=== PATIENT | male | born 1995 | race African-American/Black ===

== ENCOUNTER 2016-09-14 17:16 | Emergency (ER) | payer MEDICAID ==
--- NOTE | 2016-09-14 17:27 | ER Document Report ---
ED Medical Screen (RME) - General Stated Complaint: RIGHT LEG PAIN Mode of Arrival: Ambulatory Information source: Patient Notes: Patient presents to the emergency department with right leg pain started 2 days ago. Patient has history of sickle cell. Reports crisis started 2 days ago with nausea. I greeted and performed a rapid initial assessment of this patient. Comprehensive ED assessment and evaluation of the patient, analysis of test results and completion of the medical decision making process will be conducted by additional ED providers. TRAVEL OUTSIDE OF THE [place] IN LAST 30 DAYS: No - Related Data Allergies/Adverse Reactions: Coconut * [Coconut] Allergy (Mild, Verified 09/14/16 17:25) transpore tape Allergy (Mild, Uncoded 09/14/16 17:25) Hives Past Medical History Pulmonary Medical History: Reports: Hx Asthma, Hx Pneumonia Past Surgical History: Reports: Hx Abdominal Surgery - Gallstones removal. Denies: Hx Cholecystectomy. Comment Only: Hx Orthopedic Surgery - Fluid drained from right foot - Immunizations Immunizations up to date: Yes Hx Diphtheria, Pertussis, Tetanus Vaccination: No Physical Exam - Vital signs Vitals: Temp Pulse Resp BP Pulse Ox 98.0 F 99 17 135/72 H 99 09/14/16 17:21 09/14/16 17:21 09/14/16 17:21 09/14/16 17:21 09/14/16 17:21 Course - Vital Signs Vital signs: Temp Pulse Resp BP Pulse Ox 98.0 F 99 17 135/72 H 99 09/14/16 17:21 09/14/16 17:21 09/14/16 17:21 09/14/16 17:21 09/14/16 17:21
[2016-09-14] MEDS ORDERED: NORMAL SALINE 1000 ML 1,000 ML IV PRN ×3 (18:07→20:29)
[2016-09-14] MEDS ORDERED: DIPHENHYDRAMINE HCL 50 MG/ML VIAL IV ONE ×2 (18:10→20:29)
[2016-09-14] MEDS ORDERED: ONDANSETRON HCL INJ/PF 4 MG/2 ML SDV IV ONE (18:10)
[2016-09-14] MEDS ORDERED: HYDROMORPHONE HCL INJ/PF 2 MG/ML AMPULE IV ONE ×2 (18:10→20:29)
--- NOTE | 2016-09-14 18:12 | ER Document Report ---
ED General Pain - General Chief Complaint: Leg Pain Stated Complaint: RIGHT LEG PAIN Time seen by provider: 18:10 Mode of Arrival: Ambulatory Information source: Patient TRAVEL OUTSIDE OF THE [place] IN LAST 30 DAYS: No - HPI Patient complains to provider of: sickle cell pain, right leg pain Onset: Yesterday Onset/Duration: Gradual, Persistent Quality of pain: Achy Severity: Moderate Pain Level: 4 Context: Chronic problem Exacerbated by: Denies Relieved by: Denies Similar symptoms previously: Yes Recently seen / treated by doctor: Yes Notes: Patient is a 21-year-old male with a history of sickle cell disease who presents to emergency room complaining of right leg pain that's been going on since yesterday and consistent with his previous sickle cell crisis, patient denies any injury or trauma, no cough, cold or congestion, no nausea, vomiting or diarrhea, no fever or chills, states yesterday he had some low back pain associated with his sickle cell disease as well but that has since resolved, states he attempted to see his legal examiner today but she was not in office so he came to the emergency room instead - Related Data Allergies/Adverse Reactions: Coconut * [Coconut] Allergy (Mild, Verified 09/14/16 17:25) transpore tape Allergy (Mild, Uncoded 09/14/16 17:25) Hives Past Medical History - General Information source: Patient - Social History Smoking Status: Never Smoker Chew tobacco use (# tins/day): No Frequency of alcohol use: Occasional Drug Abuse: None Family History: Arthritis, DM, Hypertension, Other - Sickle cell trait both parents and asthma Patient has suicidal ideation: No Patient has homicidal ideation: No Pulmonary Medical History: Reports: Hx Asthma, Hx Pneumonia Renal/ Medical History: Denies: Hx Peritoneal Dialysis Past Surgical History: Reports: Hx Abdominal Surgery - Gallstones removal. Denies: Hx Cholecystectomy. Comment Only: Hx Orthopedic Surgery - Fluid drained from right foot - Immunizations Immunizations up to date: Yes Hx Diphtheria, Pertussis, Tetanus Vaccination: No Hx Pneumococcal Vaccination: 01/15/13 Review of Systems - Review of Systems Constitutional: No symptoms reported EENT: No symptoms reported Cardiovascular: No symptoms reported Respiratory: No symptoms reported Gastrointestinal: No symptoms reported Genitourinary: No symptoms reported Male Genitourinary: No symptoms reported Musculoskeletal: See HPI Skin: No symptoms reported Hematologic/Lymphatic: See HPI Neurological/Psychological: No symptoms reported -: Yes All other systems reviewed and negative Physical Exam - Vital signs Vitals: Temp Pulse Resp BP Pulse Ox 98.0 F 99 17 135/72 H 99 09/14/16 17:21 09/14/16 17:21 09/14/16 17:21 09/14/16 17:21 09/14/16 17:21 Interpretation: Normal - General General appearance: Appears well, Alert - HEENT Head: Normocephalic, Atraumatic Eyes: Normal Pupils: PERRL - Respiratory Respiratory status: No respiratory distress Chest status: Nontender Breath sounds: Normal Chest palpation: Normal - Cardiovascular Rhythm: Regular Heart sounds: Normal auscultation Murmur: No - Abdominal Inspection: Normal Distension: No distension Bowel sounds: Normal Tenderness: Nontender Organomegaly: No organomegaly - Back Back: Normal, Nontender - Extremities General upper extremity: Normal inspection, Nontender, Normal color, Normal ROM , Normal temperature General lower extremity: Normal inspection, Nontender, Normal color, Normal ROM , Normal temperature, Normal weight bearing. No: Jeannine's sign - Neurological Neuro grossly intact: Yes Cognition: Normal Orientation: AAOx4 [place] Coma Scale Eye Opening: Spontaneous Rodo Coma Scale Verbal: Oriented Rodo Coma Scale Motor: Obeys Commands Rodo Coma Scale Total: 15 Speech: Normal Motor strength normal: LUE, RUE, LLE, RLE Sensory: Normal - Psychological Associated symptoms: Normal affect, Normal mood - Skin Skin Temperature: Warm Skin Moisture: Dry Skin Color: Normal Course - Re-evaluation Re-evalutation: 09/14/16 21:53 Patient resting comfortably, reports feeling much better and ready to go home, labs were discussed with him at bedside, patient will be discharged with pain medication and information to follow up with his legal examiner, advised to return if symptoms worsen, patient acknowledges understanding and agreement with this plan - Vital Signs Vital signs: Temp Pulse Resp BP Pulse Ox 98.0 F 99 17 135/72 H 99 09/14/16 17:21 09/14/16 17:21 09/14/16 17:21 09/14/16 17:21 09/14/16 17:21 - Laboratory Result Diagrams: 09/14/16 20:55 09/14/16 18:35 Laboratory results interpreted by me: 09/14/16 09/14/16 09/14/16 17:40 18:35 20:55 RBC 3.07 L Hgb 12.2 L Hct 36.4 L MCV 119 H MCH 39.8 H RDW 23.8 H Retic Count (auto) 5.15 H Absolute Retic 0.158 H Total Bilirubin 1.8 H Alkaline Phosphatase 144 H Urine Blood SMALL H Discharge - Discharge Clinical Impression: Sickle cell crisis Condition: Stable Disposition: HOME, SELF-CARE Instructions: Sickle Cell Crisis ([facility]) Additional Instructions: Drink plenty of fluids. Follow up with your legal examiner in one to 2 days. Return to the emergency room immediately if symptoms worsen or any additional concerns. Prescriptions: Oxycodone HCl/Acetaminophen [Percocet 10-325 Mg Tablet] 1 each PO Q6 #30 tablet
[2016-09-14 19:40] LABS: ALANINE AMINOTRANSFERASE 23 U/L (21-72); ALBUMIN 4.5 g/dL (3.5-5.0); ALKALINE PHOSPHATASE 144 U/L (38-126); ANION GAP 13 (5-19); ASPARTATE AMINO TRANSFERASE 50 U/L (17-59); BILIRUBIN,TOTAL 1.8 mg/dL (0.2-1.3); BLOOD UREA NITROGEN 13 mg/dL (7-20); CARBON DIOXIDE 27 mmol/L (22-30); CHLORIDE 102 mmol/L (98-107); CREATININE RESULT 0.66 mg/dL (0.52-1.25); GLUCOSE 87 mg/dL (75-110); POTASSIUM 4.5 mmol/L (3.6-5.0); SODIUM 141.6 mmol/L (137-145); TOTAL PROTEIN 8.1 g/dL (6.3-8.2)
[2016-09-14 19:55] LABS: APPEARANCE,URINE CLEAR; BILIRUBIN,URINE NEGATIVE (NEGATIVE); GLUCOSE, URINE NEGATIVE (NEGATIVE); KETONES,URINE NEGATIVE (NEGATIVE); LEUKOCYTE ESTERASE,URINE NEGATIVE (NEGATIVE); NITRITE,URINE NEGATIVE (NEGATIVE); PROTEIN,URINE NEGATIVE (NEGATIVE); URINE SPECIFIC GRAVITY 1.011; UROBILINOGEN,URINE NEGATIVE mg/dL (<2.0)
[2016-09-14 21:32] LABS: HEMATOCRIT 36.4 % (37.9-51.0); HEMOGLOBIN 12.2 g/dL (13.5-17.0); HGB HCT DIFFERENCE 0.2; MEAN CORPUSCULAR HEMOGLOBIN 39.8 pg (27.0-33.4); MEAN CORPUSCULAR HGB CONC 33.5 g/dL (32.0-36.0); RED BLOOD COUNT 3.07 10^6/uL (4.35-5.55); RED CELL DISTRIBUTION WIDTH 23.8 % (11.5-14.0); WHITE BLOOD COUNT 5.2 10^3/uL (4.0-10.5)
[2016-09-14 21:39] LABS: BASOPHILS % (MANUAL) 0 % (0-2); EOSINOPHILS % (MANUAL) 0 % (0-6); LYMPHOCYTES % (MANUAL) 23 % (13-45); TOTAL CELLS COUNTED 100
[2016-09-14 21:43] LABS: TOXIC GRANULATION SLIGHT
[2016-09-14 21:44] LABS: OVALOCYTES SLIGHT; POLYCHROMASIA SLIGHT; SCHISTOCYTES SLIGHT; TARGET CELLS 1+
[2016-09-14 21:45] LABS: NUCLEATED RED BLOOD CELLS 9 /100 WBC (0)
[2016-09-14 21:46] LABS: MEAN CORPUSCULAR VOLUME 119 fl (80-97)
[2016-09-14 21:47] LABS: ANISOCYTOSIS 2+
[2016-09-14 23:06] VITALS: BP 145/92
[2016-09-17 14:31] LABS: PATH REVIEW PATHOLOGIST REVIEWED
== END 2016-09-14 23:06 | disposition home or self-care (01) ==
LOC: ER 17:16
DX: D57.00 Hb-SS disease with crisis, unspecified (principal); M79.604 Pain in right leg; Z91.018 Allergy to other foods; Z88.8 Allergy status to other drugs, medicaments and biological substances; J45.909 Unspecified asthma, uncomplicated
CPT/HCPCS: 36591; 96376; 99284; 96361; 96374; 96375; 36415; 85025; 85045; 80053; 81001; J1200; J1170; J2405; J7030

== ENCOUNTER 2016-10-31 11:31 | Emergency (ER) | payer MEDICAID ==
--- NOTE | 2016-10-31 12:15 | ER Document Report ---
ED Medical Screen (RME) - General Stated Complaint: CHEST AND BACK PAIN Notes: 21 yo AA male c/o intermittant anterior chest pains and low back pain x 2 days. + pain with deep inspiration. + cough. + shortness of breath. no radiculopathy, no paresthesias, no bowel/bladder change, no fever. + hx/o sickle cell TRAVEL OUTSIDE OF THE [place] IN LAST 30 DAYS: No - Related Data Allergies/Adverse Reactions: Coconut * [Coconut] Allergy (Mild, Verified 09/14/16 17:25) transpore tape Allergy (Mild, Uncoded 09/14/16 17:25) Hives Past Medical History Pulmonary Medical History: Reports: Hx Asthma, Hx Pneumonia Renal/ Medical History: Denies: Hx Peritoneal Dialysis Past Surgical History: Reports: Hx Abdominal Surgery - Gallstones removal, Hx Vascular Surgery - Port placement. Denies: Hx Cholecystectomy. Comment Only: Hx Orthopedic Surgery - Fluid drained from right foot - Immunizations Immunizations up to date: Yes Hx Diphtheria, Pertussis, Tetanus Vaccination: No Physical Exam - Vital signs Vitals: Temp Pulse Resp BP Pulse Ox 98.4 F 99 18 134/80 H 96 10/31/16 11:52 10/31/16 11:52 10/31/16 11:52 10/31/16 11:52 10/31/16 11:52 Course - Vital Signs Vital signs: Temp Pulse Resp BP Pulse Ox 98.4 F 99 18 134/80 H 96 10/31/16 11:52 10/31/16 11:52 10/31/16 11:52 10/31/16 11:52 10/31/16 11:52
[2016-10-31 13:08] LABS: ALANINE AMINOTRANSFERASE 26 U/L (21-72); ALBUMIN 5.1 g/dL (3.5-5.0); ALKALINE PHOSPHATASE 143 U/L (38-126); BILIRUBIN,TOTAL 1.9 mg/dL (0.2-1.3); BLOOD UREA NITROGEN 14 mg/dL (7-20); CARBON DIOXIDE 29 mmol/L (22-30); CREATININE RESULT 0.72 mg/dL (0.52-1.25); GLUCOSE 104 mg/dL (75-110); POTASSIUM 4.4 mmol/L (3.6-5.0); SODIUM 145.8 mmol/L (137-145); TOTAL PROTEIN 9.6 g/dL (6.3-8.2)
[2016-10-31 13:09] LABS: ASPARTATE AMINO TRANSFERASE 56 U/L (17-59); CALCIUM 10.1 mg/dL (8.4-10.2)
[2016-10-31 13:13] LABS: ANION GAP 13 (5-19); CHLORIDE 104 mmol/L (98-107)
[2016-10-31 13:20] LABS: HEMATOCRIT 37.6 % (37.9-51.0); HEMOGLOBIN 12.6 g/dL (13.5-17.0); HGB HCT DIFFERENCE 0.2; MEAN CORPUSCULAR HEMOGLOBIN 38.3 pg (27.0-33.4); MEAN CORPUSCULAR HGB CONC 33.6 g/dL (32.0-36.0); MEAN CORPUSCULAR VOLUME 114 fl (80-97); RED BLOOD COUNT 3.29 10^6/uL (4.35-5.55); RED CELL DISTRIBUTION WIDTH 19.7 % (11.5-14.0); WHITE BLOOD COUNT 5.6 10^3/uL (4.0-10.5)
[2016-10-31 13:29] LABS: BASOPHILS % (MANUAL) 0 % (0-2); EOSINOPHILS % (MANUAL) 1 % (0-6); LYMPHOCYTES % (MANUAL) 41 % (13-45); NUCLEATED RED BLOOD CELLS 7 /100 WBC (0); TOTAL CELLS COUNTED 100
[2016-10-31 13:30] LABS: APPEARANCE,URINE CLEAR; BILIRUBIN,URINE NEGATIVE (NEGATIVE); GLUCOSE, URINE NEGATIVE (NEGATIVE); KETONES,URINE NEGATIVE (NEGATIVE); LEUKOCYTE ESTERASE,URINE NEGATIVE (NEGATIVE); NITRITE,URINE NEGATIVE (NEGATIVE); PROTEIN,URINE NEGATIVE (NEGATIVE); URINE SPECIFIC GRAVITY 1.012
[2016-10-31 13:33] LABS: ANISOCYTOSIS 2+; HOWELL-JOLLY BODIES PRESENT; OVALOCYTES SLIGHT; POIKILOCYTOSIS 2+; POLYCHROMASIA SLIGHT; TARGET CELLS SLIGHT; TEAR DROP CELLS SLIGHT
[2016-10-31] MEDS ORDERED: DEXTROSE 5%-1/2 NORMAL SALINE 1,000 ML IV PRN (14:39)
[2016-10-31] MEDS ORDERED: MORPHINE SULFATE 10 MG/ML INJ IV ONE (14:45)
[2016-10-31] MEDS ORDERED: HYDROMORPHONE HCL INJ/PF 2 MG/ML AMPULE IV ONE ×2 (14:54→16:30)
[2016-10-31] MEDS ORDERED: ONDANSETRON HCL INJ/PF 4 MG/2 ML SDV IV ONE (14:54)
[2016-10-31] MEDS ORDERED: DIPHENHYDRAMINE HCL 50 MG/ML VIAL IV ONE (14:54)
--- NOTE | 2016-10-31 15:23 | ER Document Report ---
ED General Pain - General Chief Complaint: Chest Pain Stated Complaint: CHEST AND BACK PAIN Notes: Patient is a 21-year-old male complaining of chest and significant for sickle cell anemia. Patient states that 3 days ago he had back pain that is now affecting his chest, he states that this is consistent with previous flareups of sickle cell crisis. Chest pain described as a constant sharp stabbing pain that he has had for the past 2 days that has not gotten worse in severity and is reproducible to palpation. Patient states that he takes 30 mg oxycodone every 4 hours PRN prescribed by his binding bench worker Dr. Cruz. States that he's been taking his medication as prescribed but still has pain. Denies any shortness of breath, productive cough, fever, chills, extremity pain. Past medical history also significant for history of asthma Past surgical history significant for PowerPort placement in the right upper extremity TRAVEL OUTSIDE OF THE [place] IN LAST 30 DAYS: No - Related Data Allergies/Adverse Reactions: Coconut * [Coconut] Allergy (Mild, Verified 10/31/16 12:12) transpore tape Allergy (Mild, Uncoded 10/31/16 12:12) Hives Past Medical History - Social History Smoking Status: Never Smoker Chew tobacco use (# tins/day): No Frequency of alcohol use: None Drug Abuse: None Family History: Arthritis, DM, Hypertension, Other - Sickle cell trait both parents and asthma Patient has suicidal ideation: No Patient has homicidal ideation: No Pulmonary Medical History: Reports: Hx Asthma, Hx Pneumonia Renal/ Medical History: Denies: Hx Peritoneal Dialysis Past Surgical History: Reports: Hx Abdominal Surgery - Gallstones removal, Hx Vascular Surgery - Port placement. Denies: Hx Cholecystectomy. Comment Only: Hx Orthopedic Surgery - Fluid drained from right foot - Immunizations Immunizations up to date: Yes Hx Diphtheria, Pertussis, Tetanus Vaccination: No Hx Pneumococcal Vaccination: 01/15/13 Review of Systems - Review of Systems Constitutional: No symptoms reported EENT: No symptoms reported Cardiovascular: See HPI Respiratory: No symptoms reported Gastrointestinal: No symptoms reported Physical Exam - Vital signs Vitals: Temp Pulse Resp BP Pulse Ox 98.4 F 99 18 134/80 H 96 10/31/16 11:52 10/31/16 11:52 10/31/16 11:52 10/31/16 11:52 10/31/16 11:52 - Notes Notes: PHYSICAL EXAM GENERAL: Alert, interacts well. Able to sit up and cooperate with exam HEAD: Normocephalic, atraumatic. EYES: Pupils equal, round, and reactive to light. Extraocular movements intact. ENT: Oral mucosa moist, tongue midline. NECK: Full range of motion. Supple. Trachea midline. LUNGS: Clear to auscultation bilaterally, no wheezes, rales, or rhonchi. No respiratory distress. HEART: Regular rate and rhythm. No murmurs, gallops, or rubs. Chest tender to palpation ABDOMEN: Soft, nondistended, nontender. No guarding, rebound, or rigidity.. Bowel sounds present in all 4 quadrants. BACK: (-) CVA tenderness but thoracic and lumbar paraspinous muscles are tender EXTREMITIES: Moves all 4 extremities spontaneously. No edema, radial and dorsalis pedis pulses 2/4 bilaterally. No cyanosis. NEUROLOGICAL: Alert and oriented x3. Normal speech. PSYCH: Normal affect, normal mood. SKIN: Warm, dry, normal turgor. No rashes or lesions noted. Course - Re-evaluation Re-evalutation: 10/31/16 17:37 Presentation is most consistent with an uncomplicated sickle cell pain crisis. Patient has no evidence of an aplastic crisis on labs. Chest x-ray and vitals are not consistent with acute chest syndrome. Vitals have remained within normal limits here in the emergency department. Patient's pain has been able to be controlled using IV analgesia. The patient is agreeable to discharge home at this time. I recommended that they follow closely with their primary binding bench worker. Return precautions have been reviewed and discussed and patient has verbalized indications to return to the emergency department. - Vital Signs Vital signs: Temp Pulse Resp BP Pulse Ox 98.4 F 99 18 134/80 H 96 10/31/16 11:52 10/31/16 11:52 10/31/16 11:52 10/31/16 11:52 10/31/16 11:52 - Laboratory Result Diagrams: 10/31/16 12:20 10/31/16 12:20 Laboratory results interpreted by me: 10/31/16 10/31/16 10/31/16 12:20 12:20 12:20 RBC 3.29 L Hgb 12.6 L Hct 37.6 L MCV 114 H MCH 38.3 H RDW 19.7 H Retic Count (auto) 8.67 H Absolute Retic 0.286 H Sodium 145.8 H Total Bilirubin 1.9 H Alkaline Phosphatase 143 H Total Protein 9.6 H Albumin 5.1 H Urine Urobilinogen 2.0 H - Diagnostic Test Radiology reviewed: Image reviewed, Reports reviewed Discharge - Discharge Clinical Impression: Sickle cell crisis Condition: Good Disposition: HOME, SELF-CARE Instructions: Intravenous (IV) Fluids ([facility]) Additional Instructions: Sickle Cell Crisis You have "sickle cell crisis." Sickle cell disease is caused by abnormal hemoglobin. This hemoglobin can deform red blood cells into a sickle shape. These abnormal blood cells can block blood vessels. This causes the pain of sickle cell crisis. Sickle cell crisis can occur any time. But attacks are more likely with acute infection, dehydration, or altitude change. A crisis usually causes pain in the legs, back, abdomen, and chest. Sometimes the pain may ease and return later. The usual treatment is oxygen, pain medication, IV fluids, and treatment of infection. Attacks may take a couple of days to resolve. Return if the pain becomes more severe, or if there are new symptoms. Referrals: GITA KRUEGER MD [ACTIVE STAFF] - Follow up in 1 week
[2016-10-31 18:23] VITALS: BP 127/70
== END 2016-10-31 18:21 | disposition home or self-care (01) ==
LOC: ER 11:31
DX: D57.00 Hb-SS disease with crisis, unspecified (principal); R07.9 Chest pain, unspecified; M54.9 Dorsalgia, unspecified
CPT/HCPCS: 96376; 99285; 96375; 96365; 96366; 36415; 85025; 85045; 80053; 81001; 71020; J1200; J1170; J2405

== ENCOUNTER 2016-11-30 20:33 | Emergency (ER) | payer MEDICAID ==
[2016-11-30] MEDS ORDERED: NORMAL SALINE 1000 ML 1,000 ML IV ONE (20:59)
--- NOTE | 2016-11-30 20:59 | ER Document Report ---
ED Medical Screen (RME) - General Stated Complaint: POSSIBLE SICKLE CELL CRISIS Notes: Patient complains of back pain and leg pain for 3 days. Same symptoms whenever he begins to have sickle cell pain. Patient states he had a fever today, and does have cough cold symptoms that started yesterday. Patient denies nausea, vomiting or diarrhea. I have greeted and performed a rapid initial assessment of this patient. A comprehensive ED assessment and evaluation of the patient, analysis of test results and completion of the medical decision making process will be conducted by additional ED providers. TRAVEL OUTSIDE OF THE [place] IN LAST 30 DAYS: No - Related Data Allergies/Adverse Reactions: Coconut * [Coconut] Allergy (Mild, Verified 11/30/16 20:55) transpore tape Allergy (Mild, Uncoded 10/31/16 12:12) Hives Past Medical History Pulmonary Medical History: Reports: Hx Asthma, Hx Pneumonia Renal/ Medical History: Denies: Hx Peritoneal Dialysis Past Surgical History: Reports: Hx Abdominal Surgery - Gallstones removal, Hx Vascular Surgery - Port placement. Denies: Hx Cholecystectomy. Comment Only: Hx Orthopedic Surgery - Fluid drained from right foot - Immunizations Immunizations up to date: Yes Hx Diphtheria, Pertussis, Tetanus Vaccination: No
[2016-11-30] MEDS ORDERED: HYDROMORPHONE HCL INJ/PF 2 MG/ML AMPULE IV ONE (22:31)
[2016-11-30] MEDS ORDERED: ONDANSETRON HCL INJ/PF 4 MG/2 ML SDV IV ONE (22:32)
[2016-11-30] MEDS ORDERED: DIPHENHYDRAMINE HCL 50 MG/ML VIAL IV ONE (22:32)
--- NOTE | 2016-11-30 22:51 | ER Document Report ---
ED General - General Chief Complaint: Sickle Cell Crisis Stated Complaint: POSSIBLE SICKLE CELL CRISIS Notes: Patient is a 21-year-old male presents with complaint of fever, cough, and sickle cell pain. He says his have cough and fever for 3 days. MAXIMUM TEMPERATURE at home was 102.1. He has had acute chest syndrome in the past. This feels different. He still has a spleen. He stills has a gallbladder. He does have sickle cell disease. He is followed by Dr. Oreilly. His primary care doctor is Dr. Stanton. No vomiting. No diarrhea. No abdominal pain. No chest pain. Patient says he has pain in his back and legs which is very typical of his sickle cell pain. TRAVEL OUTSIDE OF THE [place] IN LAST 30 DAYS: No - Related Data Allergies/Adverse Reactions: Coconut * [Coconut] Allergy (Mild, Verified 11/30/16 20:55) transpore tape Allergy (Mild, Uncoded 10/31/16 12:12) Hives Past Medical History - Social History Smoking Status: Never Smoker Chew tobacco use (# tins/day): No Frequency of alcohol use: Rare Drug Abuse: None Family History: Arthritis, DM, Hypertension, Other - Sickle cell trait both parents and asthma Pulmonary Medical History: Reports: Hx Asthma, Hx Pneumonia Renal/ Medical History: Denies: Hx Peritoneal Dialysis Past Surgical History: Reports: Hx Abdominal Surgery - Gallstones removal, Hx Vascular Surgery - Port placement. Denies: Hx Cholecystectomy. Comment Only: Hx Orthopedic Surgery - Fluid drained from right foot - Immunizations Immunizations up to date: Yes Hx Diphtheria, Pertussis, Tetanus Vaccination: No Hx Pneumococcal Vaccination: 01/15/13 Review of Systems - Review of Systems Notes: My Normal Review Basic REVIEW OF SYSTEMS: CONSTITUTIONAL : Fevers EENT: Denies eye, ear, throat, or mouth pain or symptoms. Denies nasal or sinus congestion. CARDIOVASCULAR: Denies chest pain. RESPIRATORY: Cough GASTROINTESTINAL: Denies abdominal pain. Denies nausea, vomiting, or diarrhea. Denies constipation. Last BM: GENITOURINARY: Denies difficulty urinating, painful urination, burning, frequency, or blood in urine. MUSCULOSKELETAL: Denies neck or back pain or joint pain or swelling. SKIN: Denies rash or skin lesions. HEMATOLOGIC : History of sickle cell NEUROLOGICAL: Denies altered mental status or loss of consciousness. Denies headache. Denies weakness or paralysis or loss of use of either side. Denies problems with gait or speech. Denies sensory or motor loss. ALL OTHER SYSTEMS REVIEWED AND NEGATIVE. Physical Exam - Vital signs Vitals: Resp Pulse Ox 19 95 11/30/16 22:34 11/30/16 22:34 - Notes Notes: General Appearance: Well nourished, alert, cooperative, no acute distress, no obvious discomfort. Well-appearing Vitals: reviewed, See vital signs table. Head: no swelling or tenderness to the head Eyes: PERRL, EOMI, Conjuctiva clear Mouth: No decreasd moisture Neck: Supple, no neck tenderness, No thyromegaly Lungs: No wheezing, No rales, No rhonci, No accessory muscle use, good air exchange bilaterally. Heart: Tachycardic rate, Regular rythm, No murmur, no rub Abdomen: Normal BS, soft, No rigidity, No abdominal tenderness, No guarding, no rebound, no abdominal masses, no organomegaly Extremities: strength 5/5 in all extremities, good pulses in all extremities, no swelling or tenderness in the extremities, no edema. Skin: warm, dry, appropriate color, no rash Neuro: speech clear, oriented x 3, normal affect, responds appropriately to questions. Course - Vital Signs Vital signs: Temp Pulse Resp BP Pulse Ox 19 123/80 100 12/01/16 03:46 12/01/16 03:46 12/01/16 03:46 - Laboratory Result Diagrams: 11/30/16 22:40 11/30/16 22:40 Laboratory results interpreted by me: 11/30/16 11/30/16 12/01/16 22:40 22:40 00:20 RBC 2.88 L Hgb 11.2 L Hct 31.4 L MCV 109 H MCH 38.7 H RDW 21.6 H Retic Count (auto) 12.04 H Absolute Retic 0.347 H Total Bilirubin 2.8 H AST 104 H Total Protein 8.5 H Urine Blood SMALL H - Transfer of Care Notes: 12/01/16 04:09 I did try begins since the patient to stay in hospital being that she is still tachycardic says he tries to move around, he's had fevers, and he does have sickle cell disease. His oxygen level is also somewhat low at 92-93% on room air. Patient does not want stay in hospital. He says he is feeling improved and wants to go home. He did agree to allow me to speak with his production worker, Dr. Gayle. I did discuss the case with her. She says that he does not was in the hospital he must recalls liquids, place him on antibiotic, and have him follow-up in her office on Saturday. I did explain to the patient he is agreeable to it. I strongly encouraged return to ER medially feels she is feeling worse, difficulty breathing, any chest pain, fevers, or feels unwell. Patient agrees with plan will be discharged home. Dictation of this chart was performed using voice recognition software; therefore, there may be some unintended grammatical errors. Discharge - Discharge Clinical Impression: Sickle cell crisis, Cough Fever Qualifiers: Fever type: unspecified Qualified Code(s): R50.9 - Fever, unspecified Condition: Stable Disposition: HOME, SELF-CARE Additional Instructions: As discussed with you I think it would be better for you to be admitted to the hospital being that your heart rate is still a little elevated and you have been having fevers as these are signs that you could potentially become more ill over the next 24 to 48 hours. We respect your decision to go home. Please have a very low threshold to return to the ER if you start having difficulty breathing, worsening pain, recurrent fevers, or feel that you are worsening in any way. I did speak with Dr. Carlos who recommends that you drink lots of liquids, take the antibiotics, and see her in her office on Saturday. Prescriptions: Levofloxacin [Levaquin 750 mg Tablet] 750 mg PO DAILY #7 tablet
[2016-11-30 23:15] LABS: HEMATOCRIT 31.4 % (37.9-51.0); HEMOGLOBIN 11.2 g/dL (13.5-17.0); HGB HCT DIFFERENCE 2.2; MEAN CORPUSCULAR HEMOGLOBIN 38.7 pg (27.0-33.4); MEAN CORPUSCULAR HGB CONC 35.5 g/dL (32.0-36.0); MEAN CORPUSCULAR VOLUME 109 fl (80-97); RED BLOOD COUNT 2.88 10^6/uL (4.35-5.55); RED CELL DISTRIBUTION WIDTH 21.6 % (11.5-14.0)
[2016-11-30 23:26] LABS: ALANINE AMINOTRANSFERASE 27 U/L (21-72); ALBUMIN 4.8 g/dL (3.5-5.0); ALKALINE PHOSPHATASE 115 U/L (38-126); ANION GAP 11 (5-19); ASPARTATE AMINO TRANSFERASE 104 U/L (17-59); BILIRUBIN,DIRECT 0.3 mg/dL (0.0-0.4); BILIRUBIN,TOTAL 2.8 mg/dL (0.2-1.3); BLOOD UREA NITROGEN 14 mg/dL (7-20); CALCIUM 9.4 mg/dL (8.4-10.2); CARBON DIOXIDE 30 mmol/L (22-30); CHLORIDE 104 mmol/L (98-107); CREATININE RESULT 0.67 mg/dL (0.52-1.25); GLUCOSE 102 mg/dL (75-110); POTASSIUM 4.6 mmol/L (3.6-5.0); TOTAL PROTEIN 8.5 g/dL (6.3-8.2)
[2016-12-01 00:04] LABS: BASOPHILS % (MANUAL) 0 % (0-2); EOSINOPHILS % (MANUAL) 1 % (0-6); LYMPHOCYTES % (MANUAL) 25 % (13-45); NUCLEATED RED BLOOD CELLS 12 /100 WBC (0); POLYCHROMASIA 2+; TOTAL CELLS COUNTED 100; TOXIC GRANULATION SLIGHT; TOXIC VACUOLATION PRESENT
[2016-12-01 00:05] LABS: ANISOCYTOSIS 2+; POIKILOCYTOSIS 2+; TARGET CELLS 2+
[2016-12-01 00:06] LABS: WHITE BLOOD COUNT 8.2 10^3/uL (4.0-10.5)
[2016-12-01] MEDS ORDERED: HYDROMORPHONE HCL INJ/PF 2 MG/ML AMPULE IV ONE (00:12)
[2016-12-01] MEDS ORDERED: NORMAL SALINE 1000 ML 1,000 ML IV ONE (00:13)
[2016-12-01 00:41] LABS: APPEARANCE,URINE CLEAR; BILIRUBIN,URINE NEGATIVE (NEGATIVE); GLUCOSE, URINE NEGATIVE (NEGATIVE); KETONES,URINE NEGATIVE (NEGATIVE); LEUKOCYTE ESTERASE,URINE NEGATIVE (NEGATIVE); NITRITE,URINE NEGATIVE (NEGATIVE); PROTEIN,URINE NEGATIVE (NEGATIVE); URINE SPECIFIC GRAVITY 1.008; UROBILINOGEN,URINE NEGATIVE mg/dL (<2.0)
[2016-12-01] MEDS ORDERED: FENTANYL CITRATE INJ/PF 100 MCG/2 ML AMPUL IV ONE (01:31)
[2016-12-01] MEDS ORDERED: DIPHENHYDRAMINE HCL 50 MG/ML VIAL IV ONE (02:01)
[2016-12-01 04:23] VITALS: BP 123/68
== END 2016-12-01 04:23 | disposition home or self-care (01) ==
LOC: ER 20:33
DX: D57.00 Hb-SS disease with crisis, unspecified (principal); R50.9 Fever, unspecified; R00.0 Tachycardia, unspecified; R05 Cough; J45.909 Unspecified asthma, uncomplicated; Z87.01 Personal history of pneumonia (recurrent); Z91.013 Allergy to seafood
CPT/HCPCS: 36591; 96376; 99284; 96361; 96374; 96375; 36415; 85025; 85045; 80053; 81001; 87804; 71020; J1200 ×2; J3010; J1170 ×2; J2405; J7030 ×2

== ENCOUNTER 2016-12-01 20:48 | Inpatient (IN) | payer MEDICAID ==
[2016-12-01] MEDS ORDERED: DIPHENHYDRAMINE HCL 50 MG/ML VIAL IV ONE (22:02)
[2016-12-01] MEDS ORDERED: HYDROMORPHONE HCL INJ/PF 2 MG/ML AMPULE IV ONE (22:02)
[2016-12-01] MEDS ORDERED: NORMAL SALINE 1000 ML 1,000 ML IV PRN (22:02)
[2016-12-01] MEDS ORDERED: ONDANSETRON HCL INJ/PF 4 MG/2 ML SDV IV ONE (22:03)
--- NOTE | 2016-12-01 23:31 | ER Document Report ---
ED General - General Chief Complaint: Sickle Cell Crisis Stated Complaint: SICKLE CELL CRISIS Notes: Patient is a 21-year-old male presents with complaints of left knee pain and difficulty breathing. He was seen here last night by me and I encouraged him to stay in hospital the patient was feeling improved and wanted to leave. Patient says that he was at work today. He was checked his O2 saturation was around 92%. EKGs have some pain in his left knee. He says that his fever has improved and his temp is on been around 99. He has been taking the antibiotics. He has no other complaints at this time. TRAVEL OUTSIDE OF THE [place] IN LAST 30 DAYS: No - Related Data Allergies/Adverse Reactions: Coconut * [Coconut] Allergy (Mild, Verified 12/01/16 21:02) transpore tape Allergy (Mild, Uncoded 12/01/16 21:02) Hives Past Medical History - Social History Smoking Status: Never Smoker Frequency of alcohol use: None Drug Abuse: None Family History: Arthritis, DM, Hypertension, Other - Sickle cell trait both parents and asthma Pulmonary Medical History: Reports: Hx Asthma, Hx Pneumonia Renal/ Medical History: Denies: Hx Peritoneal Dialysis Past Surgical History: Reports: Hx Abdominal Surgery - Gallstones removal, Hx Vascular Surgery - Port placement. Denies: Hx Cholecystectomy. Comment Only: Hx Orthopedic Surgery - Fluid drained from right foot - Immunizations Immunizations up to date: Yes Hx Diphtheria, Pertussis, Tetanus Vaccination: No Hx Pneumococcal Vaccination: 01/15/13 Review of Systems - Review of Systems Notes: My Normal Review Basic REVIEW OF SYSTEMS: CONSTITUTIONAL : Recent fever EENT: Denies eye, ear, throat, or mouth pain or symptoms. Denies nasal or sinus congestion. CARDIOVASCULAR: Denies chest pain. RESPIRATORY: Some cough. Mild shortness of breath GASTROINTESTINAL: Denies abdominal pain. Denies nausea, vomiting, or diarrhea. Denies constipation. Last BM: MUSCULOSKELETAL: Some left knee pain SKIN: Denies rash or skin lesions. HEMATOLOGIC : Sickle cell disease NEUROLOGICAL: Denies altered mental status or loss of consciousness. Denies headache. Denies weakness or paralysis or loss of use of either side. Denies problems with gait or speech. Denies sensory or motor loss. ALL OTHER SYSTEMS REVIEWED AND NEGATIVE. Physical Exam - Vital signs Vitals: Temp Pulse Resp BP Pulse Ox 99.1 F 102 H 18 131/78 H 94 12/01/16 21:02 12/01/16 21:02 12/01/16 21:02 12/01/16 21:02 12/01/16 21:02 - Notes Notes: General Appearance: Well nourished, alert, cooperative, no acute distress, mild obvious discomfort. Vitals: reviewed, See vital signs table. Head: no swelling or tenderness to the head Eyes: PERRL, EOMI, Conjuctiva clear Mouth: No decreasd moisture Neck: Supple, no neck tenderness, No thyromegaly Lungs: No wheezing, No rales, No rhonci, No accessory muscle use, good air exchange bilaterally. Heart: Normal rate, Regular rythm, No murmur, no rub Abdomen: Normal BS, soft, No rigidity, No abdominal tenderness, No guarding, no rebound, no abdominal masses, no organomegaly Extremities: strength 5/5 in all extremities, good pulses in all extremities, there may be very slight swelling just superior to the patella. This no redness or warmth to the left knee. Some mild pain to palpation just superior to the left patella., no edema. Skin: warm, dry, appropriate color, no rash Neuro: speech clear, oriented x 3, normal affect, responds appropriately to questions. Course - Vital Signs Vital signs: Temp Pulse Resp BP Pulse Ox 99.1 F 102 H 16 121/73 92 12/01/16 21:02 12/01/16 21:02 12/02/16 04:00 12/02/16 03:01 12/02/16 04:00 - Laboratory Result Diagrams: 12/02/16 00:17 12/02/16 00:17 Laboratory results interpreted by me: 12/02/16 12/02/16 00:17 00:17 RBC 2.66 L Hgb 10.3 L Hct 29.2 L MCV 110 H MCH 38.6 H RDW 22.5 H Monocytes % 15.6 H Retic Count (auto) 10.60 H Absolute Retic 0.282 H Total Bilirubin 2.7 H AST 61 H - EKG Interpretation by Me Additional EKG results interpreted by me: 12/01/16 23:30 EKG is reviewed and interpreted by me. EKG shows normal sinus rhythm with rate of [address] segment elevation or depression. No ischemic T wave inversions. MA interval, QRS duration, congestive intervals are within normal range. Old EKG for comparison is from 04/30/2016. - Transfer of Care Notes: 12/02/16 06:03 Patient's does have some improvement in his pain with medication given here. We have placed him on oxygen which is helped significantly. Due to his oxygen demand and continued pain if felt it is appropriate to admit him for sickle cell crisis. I did give him a dose of Levaquin here. I did prescribe Levaquin to him yesterday being that he did have some cough and congestion and fevers. Chest x-ray continues to not show any signs of acute chest syndrome. His lung britton are clear. He has an associate chest pain. I did speak with Dr. Jeffries, physician covering for Dr. Stanton, who agrees to accept the patient for admission. Dictation of this chart was performed using voice recognition software; therefore, there may be some unintended grammatical errors. Discharge - Discharge Clinical Impression: Sickle cell crisis Disposition: ADMITTED OBSERVATION Admitting Provider: Maximino Unit Admitted: Telemetry
[2016-12-01 23:55] LABS: APPEARANCE,URINE CLEAR; BILIRUBIN,URINE NEGATIVE (NEGATIVE); GLUCOSE, URINE NEGATIVE (NEGATIVE); KETONES,URINE NEGATIVE (NEGATIVE); LEUKOCYTE ESTERASE,URINE NEGATIVE (NEGATIVE); NITRITE,URINE NEGATIVE (NEGATIVE); PROTEIN,URINE NEGATIVE (NEGATIVE); URINE SPECIFIC GRAVITY 1.008; UROBILINOGEN,URINE NEGATIVE mg/dL (<2.0)
--- NOTE | 2016-12-02 00:05 | EKG REPORT ---
SEVERITY:- NORMAL ECG - SINUS RHYTHM : Confirmed by: Xenia Delgado 02-Dec-2016 00:04:30
[2016-12-02 01:04] LABS: ALANINE AMINOTRANSFERASE 34 U/L (21-72); ALBUMIN 4.4 g/dL (3.5-5.0); ALKALINE PHOSPHATASE 108 U/L (38-126); ANION GAP 12 (5-19); ASPARTATE AMINO TRANSFERASE 61 U/L (17-59); BILIRUBIN,DIRECT 0.2 mg/dL (0.0-0.4); BILIRUBIN,TOTAL 2.7 mg/dL (0.2-1.3); BLOOD UREA NITROGEN 12 mg/dL (7-20); CALCIUM 9.4 mg/dL (8.4-10.2); CARBON DIOXIDE 27 mmol/L (22-30); CHLORIDE 105 mmol/L (98-107); GLUCOSE 82 mg/dL (75-110); TOTAL PROTEIN 7.6 g/dL (6.3-8.2)
[2016-12-02 01:37] LABS: ABSOLUTE EOSINOPHILS # (AUTO) 0.1 10^3/uL (0.0-0.6); ABSOLUTE LYMPHOCYTES (AUTO) 2.5 10^3/uL (0.5-4.7); ABSOLUTE MONOCYTES (AUTO) 1.1 10^3/uL (0.1-1.4); ABSOLUTE NEUT (AUTO) 3.6 10^3/uL (1.7-8.2); BASOPHILS % (AUTO) 0.3 % (0-2); EOSINOPHILS % (AUTO) 1.2 % (0-6); HEMATOCRIT 29.2 % (37.9-51.0); HEMOGLOBIN 10.3 g/dL (13.5-17.0); HGB HCT DIFFERENCE 1.7; LYMPHOCYTES % (AUTO) 33.8 % (13-45); MEAN CORPUSCULAR HEMOGLOBIN 38.6 pg (27.0-33.4); MEAN CORPUSCULAR HGB CONC 35.1 g/dL (32.0-36.0); MEAN CORPUSCULAR VOLUME 110 fl (80-97); MONOCYTES % (AUTO) 15.6 % (3-13); RED BLOOD COUNT 2.66 10^6/uL (4.35-5.55); RED CELL DISTRIBUTION WIDTH 22.5 % (11.5-14.0); SEGMENTED NEUTROPHILS % (AUTO) 49.1 % (42-78); WHITE BLOOD COUNT 7.3 10^3/uL (4.0-10.5)
[2016-12-02] MEDS ORDERED: HYDROMORPHONE HCL INJ/PF 2 MG/ML AMPULE IV ONE (02:20)
[2016-12-02] MEDS ORDERED: DIPHENHYDRAMINE HCL 50 MG/ML VIAL IV ONE (02:20)
[2016-12-02] MEDS ORDERED: LEVOFLOXACIN 750 MG TABLET PO ONE (02:59)
[2016-12-02] MEDS ORDERED: ALBUTEROL SULFATE HFA (90 MCG/PUFF) 8 GM MDI (1 MDI/ER DISP) IH PRN (07:20)
[2016-12-02] MEDS: HYDROMORPHONE HCL INJ/PF 2 MG/ML AMPULE IV PRN ×4 (07:58→21:25)
[2016-12-02 08:10] LABS: HEMATOCRIT 29.2 % (37.9-51.0); HEMOGLOBIN 10.5 g/dL (13.5-17.0); HGB HCT DIFFERENCE 2.3; MEAN CORPUSCULAR HEMOGLOBIN 38.8 pg (27.0-33.4); MEAN CORPUSCULAR HGB CONC 35.9 g/dL (32.0-36.0); MEAN CORPUSCULAR VOLUME 108 fl (80-97); RED CELL DISTRIBUTION WIDTH 22.9 % (11.5-14.0); WHITE BLOOD COUNT 6.1 10^3/uL (4.0-10.5)
[2016-12-02 08:24] LABS: PROTHROMBIN TIME 14.7 SEC (11.4-15.4)
[2016-12-02 08:25] LABS: PARTIAL THROMBOPLASTIN TIME 29.4 SEC (23.5-35.8)
[2016-12-02 08:37] LABS: CREATININE RESULT 0.66 mg/dL (0.52-1.25)
[2016-12-02] MEDS ORDERED: ALBUTEROL SULFATE HFA (90 MCG/PUFF) 200 PUFF/8.5 GM MDI IH PRN (08:55)
[2016-12-02] MEDS: FOLIC ACID 1 MG TABLET PO SCH (10:55)
[2016-12-02] MEDS: HYDROXYUREA 500 MG CAPSULE PO SCH (10:56)
[2016-12-02] MEDS: ENOXAPARIN SODIUM INJ 40 MG/0.4 ML DISP.SYRIN SUBCUT SCH (10:56)
[2016-12-02] MEDS: NORMAL SALINE 1000 ML 1,000 ML IV PRN (16:53)
--- NOTE | 2016-12-02 19:02 | PDOC H&P ---
History of Present Illness Admission Date/PCP: 12/02/16 04:06 ANDREW WILLIS History of Present Illness: MARINO POZO is a 21 year old male with history of sickle cell disease SS, he came to the emergency room because of bone pains, he stated that he normally would have about 6-9 bone pain crisis in a year. There is no fever or chills to suggest infection Past Medical History Pulmonary Medical History: Reports: Asthma, Pneumonia Hematology: Reports: Anemia, Sickle Cell Disease, Bleeding Tendencies Past Surgical History Past Surgical History: Reports: Vascular Surgery - Port placement Comment Only: Orthopedic Surgery - Fluid drained from right foot Social History Smoking Status: Never Smoker Frequency of Alcohol Use: None Hx Recreational Drug Use: No Drugs: None Hx Prescription Drug Abuse: No Family History Family History: Arthritis, DM, Hypertension, Other - Sickle cell trait both parents and asthma Parental Family History Reviewed: Yes Children Family History Reviewed: Yes Sibling(s) Family History Reviewed.: Yes Medication/Allergy Home Medications: Albuterol Sulfate [Proair HFA Inhalation Aerosol 8.5 gm MDI] 2 puff IH Q4HP PRN 12/02/16 Fentanyl [Duragesic 100 Mcg/Hr Transdermal Patch] 1 patch TOP Q3D 12/02/16 Folic Acid [Folvite 1 mg Tablet] 1 mg PO DAILY 12/02/16 Hydroxyurea [Hydrea 500 mg Capsule] 1,000 mg PO DAILY 12/02/16 Ibuprofen [Motrin 800 mg Tablet] 800 mg PO Q6HP PRN 12/02/16 Oxycodone HCl 30 mg PO Q4HP PRN 12/02/16 Oxycodone HCl [Oxy-Ir 5 mg Tablet] 5 mg PO Q4H 12/02/16 Allergies/Adverse Reactions: Coconut * [Coconut] Allergy (Mild, Verified 12/01/16 21:02) transpore tape Allergy (Mild, Uncoded 12/01/16 21:02) Hives Review of Systems Constitutional: ABSENT: chills, fever(s), headache(s), weight gain, weight loss Eyes: ABSENT: visual disturbances Ears: ABSENT: hearing changes Cardiovascular: ABSENT: chest pain, dyspnea on exertion, edema, orthropnea, palpitations Respiratory: ABSENT: cough, hemoptysis Gastrointestinal: ABSENT: abdominal pain, constipation, diarrhea, hematemesis, hematochezia, nausea, vomiting Genitourinary: ABSENT: dysuria, hematuria Musculoskeletal: PRESENT: back pain Integumentary: ABSENT: rash, wounds Neurological: ABSENT: abnormal gait, abnormal speech, confusion, dizziness, focal weakness, syncope Psychiatric: ABSENT: anxiety, depression, homidical ideation, suicidal ideation Endocrine: ABSENT: cold intolerance, heat intolerance, menstrual abnormalities, polydipsia, polyuria Hematologic/Lymphatic: ABSENT: easy bleeding, easy bruising, lymphadenopathy Physical Exam Vital Signs: Temp Pulse Resp BP Pulse Ox 97.8 F 89 18 115/71 97 12/02/16 16:00 12/02/16 16:00 12/02/16 16:00 12/02/16 16:00 12/02/16 16:00 Intake & Output 12/01/16 12/02/16 12/03/16 06:59 06:59 06:59 Intake Total 557 Balance 557 Weight 61.8 kg General appearance: PRESENT: no acute distress, well-developed, well-nourished Head exam: PRESENT: atraumatic, normocephalic Eye exam: PRESENT: conjunctiva pink, EOMI, PERRLA Ear exam: PRESENT: normal external ear exam Mouth exam: PRESENT: moist, tongue midline Neck exam: PRESENT: full ROM Respiratory exam: PRESENT: clear to auscultation ethan Cardiovascular exam: PRESENT: RRR, +S1, +S2 Pulses: PRESENT: normal dorsalis pedis pul, +2 pedal pulses bilateral Vascular exam: PRESENT: normal capillary refill GI/Abdominal exam: PRESENT: normal bowel sounds, soft Rectal exam: PRESENT: deferred Neurological exam: PRESENT: alert, awake, oriented to person, oriented to place , oriented to time, oriented to situation, CN II-XII grossly intact Psychiatric exam: PRESENT: appropriate affect, normal mood Skin exam: PRESENT: dry, intact, warm Results Laboratory Results: 12/02/16 08:01 12/02/16 08:01 12/02/16 12/02/16 08:01 08:01 WBC 6.1 RBC 2.70 L Hgb 10.5 L Hct 29.2 L MCV 108 H MCH 38.8 H MCHC 35.9 RDW 22.9 H Plt Count 187 Creatinine 0.66 Est GFR ( Amer) > 60 Est GFR (Non-Af Amer) > 60 Impressions: Chest X-Ray 12/01/16 22:01 IMPRESSION: NO ACUTE RADIOGRAPHIC FINDING IN THE CHEST. Assessment & Plan - Diagnosis (1) Sickle cell disease with crisis Is this a current diagnosis for this admission?: YesPlan: Patient admitted to the hospital for treatment of bone pain crisis
[2016-12-03] MEDS: HYDROMORPHONE HCL INJ/PF 2 MG/ML AMPULE IV PRN ×6 (01:18→22:07)
[2016-12-03] MEDS: NORMAL SALINE 1000 ML 1,000 ML IV PRN ×2 (01:29→22:08)
[2016-12-03] MEDS: HYDROXYUREA 500 MG CAPSULE PO SCH (09:41)
[2016-12-03] MEDS: FOLIC ACID 1 MG TABLET PO SCH (09:41)
--- NOTE | 2016-12-03 10:02 | Physician Advisory Note ---
Physician Advisor ProgressNote .: [facility], I have reviewed the medical record for this patient. Physician Advisor Statement: Possible documentation opportunities if attending agrees: 1. 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 ? - "possible DOMENIC" [lowest sats seem to be around 4AM....] 3. "hypoxemia as low as 88% on RA 12/02/16, & 93% on 2L 12/03/16, due to ____" [P /F ratios 257 & 243 respectively] [?any increased work of breathing to support consideration of "Ac Resp Failure" dx?] - Does attending want to order O2 for this? (Nursing has been giving it, but without an order, payers will say it's not needed per attending.) 4. "HbSS disease w/crisis" [always have to specify if HbSS, HbSC, sickle-thal , ... now] As always, if concerned about any unstable VS or abnormal labs, please comment on them & note what doing about them, & please document each day the potential clinical problems you are concerned could occur if pt not kept in hospital for tx at this time. Discussion: 21yo male w/ chronic co-morbidities including sickle cell dz w/frequent crises 6 -9x/yr, asthma, chronic opioid dependence on Duragesic 100mcg q3d - presented 4/1 PM to ED w/bone pain Lt knee, difficulty breathing. (+) HR 102, RR16, 121/73, 94% RA but then 92% RA at 04:00, WBC 7.3, Hgb 10.3 w/ high MCV & RDW & retic ct, TB 2.7, AST 61 Attending ordered IVF @100, Dilaudid 1mg q4h prn, prn albuterol. Status: Pt with persistent tachycardia through this AM so far, with recurrent hypoxemia far out of usual range for a young person with no chronic lung dz, continuing to need IV Dilaudid 6x in 24hrs & again at 09:41 since then. Not sufficiently stable for outpt care or d/c. Tx in inpatient hospital setting medically reasonable & necessary to protect pt' s health, safety, & medical condition. Appropriate for change to Inpt status. Thanks for your help with documentation accuracy/specificity improvement! Marii De Leon MD [facility] Physician Advisor, Fellow of [facility]
[2016-12-03] MEDS: ENOXAPARIN SODIUM INJ 40 MG/0.4 ML DISP.SYRIN SUBCUT SCH (12:43)
--- NOTE | 2016-12-03 17:20 | PDOC PROGRESS REPORT ---
Subjective Progress Note for:: 12/03/16 Subjective:: Patient continue to express pain in his left knee joint. Remain on IV Dilaudid therapy for sickle cell disease pain crisis management. He denied any chest pain. remain on supplemental oxygen via nasal canula for associated hypoxemia upon presentation. No nausea or vomiting. No abdominal pain. Physical Exam Vital Signs: Temp Pulse Resp BP Pulse Ox 97.8 F 83 16 123/66 97 12/03/16 15:05 12/03/16 15:05 12/03/16 15:05 12/03/16 15:05 12/03/16 15:05 Intake & Output 12/02/16 12/03/16 12/04/16 06:59 06:59 06:59 Intake Total 2557 240 Balance 2557 240 Weight 61.8 kg General appearance: PRESENT: no acute distress, mild distress - pain distress localized to left knee joint Head exam: PRESENT: atraumatic, normocephalic Eye exam: PRESENT: conjunctiva pink, EOMI, PERRLA. ABSENT: scleral icterus Neck exam: PRESENT: full ROM. ABSENT: carotid bruit, JVD, lymphadenopathy, thyromegaly Respiratory exam: PRESENT: clear to auscultation ethan Cardiovascular exam: PRESENT: RRR. ABSENT: diastolic murmur, rubs, systolic murmur Vascular exam: PRESENT: normal capillary refill GI/Abdominal exam: PRESENT: normal bowel sounds, soft. ABSENT: distended, guarding, mass, organolmegaly, rebound, tenderness Extremities exam: PRESENT: full ROM Musculoskeletal exam: PRESENT: tenderness - left knee joint with some evidence of small effusion Neurological exam: PRESENT: alert, awake, oriented to person, oriented to place , oriented to time, oriented to situation, CN II-XII grossly intact. ABSENT: motor sensory deficit Psychiatric exam: PRESENT: appropriate affect, normal mood. ABSENT: homicidal ideation, suicidal ideation Skin exam: PRESENT: dry, intact, warm. ABSENT: cyanosis, rash Results Laboratory Results: 12/02/16 08:01 12/02/16 08:01 Impressions: Chest X-Ray 12/01/16 22:01 IMPRESSION: NO ACUTE RADIOGRAPHIC FINDING IN THE CHEST. Assessment & Plan - Diagnosis (1) Knee pain, left Qualifiers: Chronicity: acute Qualified Code(s): M25.562 - Pain in left knee Is this a current diagnosis for this admission?: YesPlan: I will request for orthopedic evaluation in view of his continued pain, effusion and history of sickle cell disease. Continue current pain management regimen. (2) Sickle cell disease with crisis Is this a current diagnosis for this admission?: YesPlan: See attending physician orders. Maintain on supplemental oxygen at 2L/min via nasal canula to keep oxygen saturation at or above 94 %. - Time Time Spent with patient: 25-34 minutes Medications reviewed and adjusted accordingly: Yes Anticipated discharge: Home Within: Other - Inpatient Certification Based on my medical assessment, after consideration of the patient's comorbidities, presenting symptoms, or acuity I expect that the services needed warrant INPATIENT care.: Yes I certify that my determination is in accordance with my understanding of Medicare's requirements for reasonable and necessary INPATIENT services [42 CFR 412.3e].: Yes Medical Necessity: Need Close Monitoring Due to Risk of Patient Decompensation, Need For IV Fluids, Need for Pain Control, Risk of Complication if Not Cared For in Hospital 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
[2016-12-03] MEDS ORDERED: ALBUTEROL SULFATE HFA (90 MCG/PUFF) 200 PUFF/8.5 GM MDI IH PRN (17:23)
[2016-12-04] MEDS: HYDROMORPHONE HCL INJ/PF 2 MG/ML AMPULE IV PRN ×6 (04:21→23:52)
[2016-12-04 07:02] LABS: HEMATOCRIT 30.3 % (37.9-51.0); HEMOGLOBIN 10.5 g/dL (13.5-17.0); HGB HCT DIFFERENCE 1.2; MEAN CORPUSCULAR HEMOGLOBIN 37.9 pg (27.0-33.4); MEAN CORPUSCULAR HGB CONC 34.6 g/dL (32.0-36.0); MEAN CORPUSCULAR VOLUME 110 fl (80-97); RED BLOOD COUNT 2.76 10^6/uL (4.35-5.55); RED CELL DISTRIBUTION WIDTH 20.9 % (11.5-14.0)
[2016-12-04 07:07] LABS: ALANINE AMINOTRANSFERASE 28 U/L (21-72); ALBUMIN 4.1 g/dL (3.5-5.0); ALKALINE PHOSPHATASE 98 U/L (38-126); ANION GAP 10 (5-19); ASPARTATE AMINO TRANSFERASE 43 U/L (17-59); BILIRUBIN,DIRECT 0.2 mg/dL (0.0-0.4); BILIRUBIN,TOTAL 2.1 mg/dL (0.2-1.3); BLOOD UREA NITROGEN 10 mg/dL (7-20); CALCIUM 9.4 mg/dL (8.4-10.2); CARBON DIOXIDE 27 mmol/L (22-30); CHLORIDE 107 mmol/L (98-107); CREATININE RESULT 0.57 mg/dL (0.52-1.25); GLUCOSE 94 mg/dL (75-110); POTASSIUM 4.5 mmol/L (3.6-5.0); SODIUM 143.8 mmol/L (137-145); TOTAL PROTEIN 7.2 g/dL (6.3-8.2)
[2016-12-04 07:17] LABS: BASOPHILS % (MANUAL) 1 % (0-2); EOSINOPHILS % (MANUAL) 4 % (0-6); LYMPHOCYTES % (MANUAL) 34 % (13-45); NUCLEATED RED BLOOD CELLS 21 /100 WBC (0); TOTAL CELLS COUNTED 100
[2016-12-04 07:19] LABS: ANISOCYTOSIS 3+; OVALOCYTES 1+; POIKILOCYTOSIS 1+; POLYCHROMASIA 1+; TARGET CELLS 1+; TOXIC VACUOLATION PRESENT
[2016-12-04 07:20] LABS: WHITE BLOOD COUNT 6.4 10^3/uL (4.0-10.5)
[2016-12-04] MEDS: ENOXAPARIN SODIUM INJ 40 MG/0.4 ML DISP.SYRIN SUBCUT SCH (07:45)
[2016-12-04] MEDS: NORMAL SALINE 1000 ML 1,000 ML IV PRN ×2 (07:47→17:29)
[2016-12-04] MEDS: HYDROXYUREA 500 MG CAPSULE PO SCH (09:49)
[2016-12-04] MEDS: FOLIC ACID 1 MG TABLET PO SCH (09:49)
[2016-12-04] MEDS ORDERED: FOLIC ACID 1 MG TABLET PO SCH (10:00)
--- NOTE | 2016-12-04 17:45 | PDOC CONSULTATION ---
History of Present Illness Admission Date/PCP: 12/03/16 17:20 ANDREW WILLIS Patient complains of: Left knee pain History of Present Illness: MARINO POZO is a 21 year old male with history of sickle cell disease SS, he came to the emergency room because of bone pain. Patient has history of chronic sickle cell with crises a proximally 9 times per year. He states the most recent crisis started 48 hours ago has somewhat improved since his admission yesterday. His major complaint today for me is left knee pain. He states the left knee was causing discomfort prior to his most recent crisis. Has difficulty ambulating secondary to the pain. Pain is improved with heat. Denies numbness or tingling. Denies fever chills or sweats. Patient denies specific injury. Past Medical History Pulmonary Medical History: Reports: Asthma, Pneumonia Psychiatric Medical History: Denies: Depression Hematology: Reports: Anemia, Sickle Cell Disease, Bleeding Tendencies Past Surgical History Past Surgical History: Reports: Vascular Surgery - Port placement Denies: Cholecystectomy Comment Only: Orthopedic Surgery - Fluid drained from right foot Social History Smoking Status: Never Smoker Frequency of Alcohol Use: None Hx Recreational Drug Use: No Drugs: None Hx Prescription Drug Abuse: No Family History Family History: Arthritis, DM, Hypertension, Other - Sickle cell trait both parents and asthma Parental Family History Reviewed: Yes Children Family History Reviewed: No Sibling(s) Family History Reviewed.: No Medication/Allergy Home Medications: Albuterol Sulfate [Proair HFA Inhalation Aerosol 8.5 gm MDI] 2 puff IH Q4HP PRN 12/02/16 Fentanyl [Duragesic 100 Mcg/Hr Transdermal Patch] 1 patch TOP Q3D 12/02/16 Folic Acid [Folvite 1 mg Tablet] 1 mg PO DAILY 12/02/16 Hydroxyurea [Hydrea 500 mg Capsule] 1,000 mg PO DAILY 12/02/16 Ibuprofen [Motrin 800 mg Tablet] 800 mg PO Q6HP PRN 12/02/16 Oxycodone HCl 30 mg PO Q4HP PRN 12/02/16 Oxycodone HCl [Oxy-Ir 5 mg Tablet] 5 mg PO Q4H 12/02/16 Allergies/Adverse Reactions: Coconut * [Coconut] Allergy (Mild, Verified 12/01/16 21:02) transpore tape Allergy (Mild, Uncoded 12/01/16 21:02) Heike Review of Systems Constitutional: ABSENT: chills, fever(s), headache(s), weight gain, weight loss Eyes: ABSENT: visual disturbances Ears: ABSENT: hearing changes Cardiovascular: ABSENT: chest pain, dyspnea on exertion, edema, orthropnea, palpitations Respiratory: ABSENT: cough, hemoptysis Gastrointestinal: ABSENT: abdominal pain, constipation, diarrhea, hematemesis, hematochezia, nausea, vomiting Genitourinary: ABSENT: dysuria, hematuria Musculoskeletal: PRESENT: as per HPI Integumentary: ABSENT: rash, wounds Neurological: ABSENT: abnormal gait, abnormal speech, confusion, dizziness, focal weakness, syncope Psychiatric: ABSENT: anxiety, depression, homidical ideation, suicidal ideation Endocrine: ABSENT: cold intolerance, heat intolerance, menstrual abnormalities, polydipsia, polyuria Hematologic/Lymphatic: ABSENT: easy bleeding, easy bruising, lymphadenopathy Physical Exam Vital Signs: Temp Pulse Resp BP Pulse Ox 99.1 F 100 16 129/65 H 98 12/04/16 15:51 12/04/16 15:51 12/04/16 15:51 12/04/16 15:51 12/04/16 15:51 Intake & Output 12/03/16 12/04/16 12/05/16 06:59 06:59 06:59 Intake Total 1960 980 Balance 1960 980 Results Laboratory Results: 12/04/16 05:50 12/04/16 05:50 12/04/16 12/04/16 05:50 05:50 WBC 6.4 RBC 2.76 L Hgb 10.5 L Hct 30.3 L MCV 110 H MCH 37.9 H MCHC 34.6 RDW 20.9 H Plt Count 185 Seg Neutrophils % Not Reportable Lymphocytes % Not Reportable Monocytes % Not Reportable Eosinophils % Not Reportable Basophils % Not Reportable Absolute Neutrophils Not Reportable Absolute Lymphocytes Not Reportable Absolute Monocytes Not Reportable Absolute Eosinophils Not Reportable Absolute Basophils Not Reportable Sodium 143.8 Potassium 4.5 Chloride 107 Carbon Dioxide 27 Anion Gap 10 BUN 10 Creatinine 0.57 Est GFR ( Amer) > 60 Est GFR (Non-Af Amer) > 60 Glucose 94 Calcium 9.4 Total Bilirubin 2.1 H AST 43 ALT 28 Alkaline Phosphatase 98 Total Protein 7.2 Albumin 4.1 Impressions: Chest X-Ray 12/01/16 22:01 IMPRESSION: NO ACUTE RADIOGRAPHIC FINDING IN THE CHEST. Assessment & Plan - Diagnosis (1) Knee pain, left Qualifiers: Chronicity: acute Qualified Code(s): M25.562 - Pain in left knee Is this a current diagnosis for this admission?: YesPlan: On examination patient has tenderness along the superior and inferior pole of the patella which may indicate underlying osteochondrosis or may be indicative of patient's acute episode of sickle cell crisis. He does see improvement with heat thus we will order him a K pad. I will also obtain an x-ray of his left knee for further evaluation. Patient fail to see improvement of his symptoms we will consider MRI. (2) Sickle cell disease with crisis Is this a current diagnosis for this admission?: Yes
--- NOTE | 2016-12-04 19:05 | PDOC PROGRESS REPORT ---
Subjective Progress Note for:: 12/04/16 Subjective:: Patient reported persistent of generalized pain, particularly involving knee joints, left > right. He was evaluated by orthopod earlier today with recommendation for K-pad and initial left knee X ray evaluation. Pain is fairly controlled on current regimen. No nausea or vomiting. No chest pain or difficulty with breathing. No reported fever or chills. Physical Exam Vital Signs: Temp Pulse Resp BP Pulse Ox 97.8 F 72 16 129/72 H 100 12/03/16 23:35 12/04/16 07:00 12/03/16 23:35 12/03/16 23:35 12/03/16 23:35 Intake & Output 12/03/16 12/04/16 12/05/16 06:59 06:59 06:59 Intake Total 1960 Balance 1960 Physical Exam: General appearance: PRESENT: no acute distress, mild distress - pain distress localized to left knee joint Head exam: PRESENT: atraumatic, normocephalic Eye exam: PRESENT: conjunctiva pink, EOMI, PERRLA. ABSENT: scleral icterus Neck exam: PRESENT: full ROM. ABSENT: carotid bruit, JVD, lymphadenopathy, thyromegaly Respiratory exam: PRESENT: clear to auscultation ethan Cardiovascular exam: PRESENT: RRR. ABSENT: diastolic murmur, rubs, systolic murmur Vascular exam: PRESENT: normal capillary refill GI/Abdominal exam: PRESENT: normal bowel sounds, soft. ABSENT: distended, guarding, mass, organomegaly, rebound, tenderness Extremities exam: PRESENT: full ROM Musculoskeletal exam: PRESENT: tenderness - left knee joint with some evidence of small effusion Neurological exam: PRESENT: alert, awake, oriented to person, oriented to place , oriented to time, oriented to situation, CN II-XII grossly intact. ABSENT: motor sensory deficit Psychiatric exam: PRESENT: appropriate affect, normal mood. ABSENT: homicidal ideation, suicidal ideation Skin exam: PRESENT: dry, intact, warm. ABSENT: cyanosis, rash Results Laboratory Results: 12/04/16 05:50 12/04/16 05:50 12/04/16 12/04/16 05:50 05:50 WBC 6.4 RBC 2.76 L Hgb 10.5 L Hct 30.3 L MCV 110 H MCH 37.9 H MCHC 34.6 RDW 20.9 H Plt Count 185 Seg Neutrophils % Not Reportable Lymphocytes % Not Reportable Monocytes % Not Reportable Eosinophils % Not Reportable Basophils % Not Reportable Absolute Neutrophils Not Reportable Absolute Lymphocytes Not Reportable Absolute Monocytes Not Reportable Absolute Eosinophils Not Reportable Absolute Basophils Not Reportable Sodium 143.8 Potassium 4.5 Chloride 107 Carbon Dioxide 27 Anion Gap 10 BUN 10 Creatinine 0.57 Est GFR ( Amer) > 60 Est GFR (Non-Af Amer) > 60 Glucose 94 Calcium 9.4 Total Bilirubin 2.1 H AST 43 ALT 28 Alkaline Phosphatase 98 Total Protein 7.2 Albumin 4.1 Impressions: Chest X-Ray 12/01/16 22:01 IMPRESSION: NO ACUTE RADIOGRAPHIC FINDING IN THE CHEST. Assessment & Plan - Diagnosis (1) Knee pain, left Qualifiers: Chronicity: acute Qualified Code(s): M25.562 - Pain in left knee Is this a current diagnosis for this admission?: YesPlan: See attending physician orders. Continue current pain management regimen. (2) Sickle cell disease with crisis Is this a current diagnosis for this admission?: YesPlan: See attending physician orders. 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 Follow up on left knee X ray findings.
[2016-12-05] MEDS: HYDROMORPHONE HCL INJ/PF 2 MG/ML AMPULE IV PRN ×5 (03:49→21:53)
--- NOTE | 2016-12-05 07:25 | PDOC PROGRESS REPORT ---
Subjective Progress Note for:: 12/05/16 Subjective:: Patient reported pain is fairly controlled on current regimen and some benfit with use of K-pad thermal therapy. X ray left knee suggested stable osteonecrosis. No fever or chills. No chest pain or difficulty with breathing. No abdominal pain, nausea or vomiting. Appetite and p.o intake satisfactory. No significant constipation. Physical Exam Vital Signs: Temp Pulse Resp BP Pulse Ox 98.4 F 103 H 16 116/58 L 97 12/04/16 23:18 12/05/16 02:00 12/04/16 23:18 12/04/16 23:18 12/05/16 01:24 Intake & Output 12/04/16 12/05/16 12/06/16 06:59 06:59 06:59 Intake Total 1959 3380 Balance 1959 3380 Physical Exam: General appearance: PRESENT: no acute distress, mild distress - pain distress localized to left knee joint Head exam: PRESENT: atraumatic, normocephalic Eye exam: PRESENT: conjunctiva pink, EOMI, PERRLA. ABSENT: scleral icterus Neck exam: PRESENT: full ROM. ABSENT: carotid bruit, JVD, lymphadenopathy, thyromegaly Respiratory exam: PRESENT: clear to auscultation ethan Cardiovascular exam: PRESENT: RRR. ABSENT: diastolic murmur, rubs, systolic murmur Vascular exam: PRESENT: normal capillary refill GI/Abdominal exam: PRESENT: normal bowel sounds, soft. ABSENT: distended, guarding, mass, organomegaly, rebound, tenderness Extremities exam: PRESENT: full ROM Musculoskeletal exam: PRESENT: tenderness - left knee joint with some evidence of small effusion Neurological exam: PRESENT: alert, awake, oriented to person, oriented to place , oriented to time, oriented to situation, CN II-XII grossly intact. ABSENT: motor sensory deficit Psychiatric exam: PRESENT: appropriate affect, normal mood. ABSENT: homicidal ideation, suicidal ideation Skin exam: PRESENT: dry, intact, warm. ABSENT: cyanosis, rash Results Laboratory Results: 12/04/16 05:50 12/04/16 05:50 12/04/16 05:50 WBC 6.4 RBC 2.76 L Hgb 10.5 L Hct 30.3 L MCV 110 H MCH 37.9 H MCHC 34.6 RDW 20.9 H Plt Count 185 Impressions: Chest X-Ray 12/01/16 22:01 IMPRESSION: NO ACUTE RADIOGRAPHIC FINDING IN THE CHEST. Knee X-Ray 12/04/16 00:00 IMPRESSION: STABLE APPEARANCE OF OSTEONECROSIS WITHIN THE MEDIAL FEMORAL CONDYLE. NO RADIOGRAPHIC EVIDENCE OF ACUTE INJURY. Assessment & Plan - Diagnosis (1) Knee pain, left Qualifiers: Chronicity: acute Qualified Code(s): M25.562 - Pain in left knee Is this a current diagnosis for this admission?: YesPlan: See attending physician orders. Continue current pain management regimen. (2) Sickle cell disease with crisis Is this a current diagnosis for this admission?: YesPlan: See attending physician orders. Continue current pain management regimen. - Time Time Spent with patient: 25-34 minutes Medications reviewed and adjusted accordingly: Yes Anticipated discharge: Home Within: Other - Inpatient Certification Based on my medical assessment, after consideration of the patient's comorbidities, presenting symptoms, or acuity I expect that the services needed warrant INPATIENT care.: Yes I certify that my determination is in accordance with my understanding of Medicare's requirements for reasonable and necessary INPATIENT services [42 CFR 412.3e].: Yes Medical Necessity: Need Close Monitoring Due to Risk of Patient Decompensation, Need For IV Fluids, Need For Continuous Telemetry Monitoring, Need for Pain Control, Risk of Complication if Not Cared For in Hospital Post Hospital Care: D/C Hub Associate 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 Continue current pain management regimen.
[2016-12-05] MEDS: ENOXAPARIN SODIUM INJ 40 MG/0.4 ML DISP.SYRIN SUBCUT SCH (07:46)
[2016-12-05] MEDS: FOLIC ACID 1 MG TABLET PO SCH (09:23)
[2016-12-05] MEDS: HYDROXYUREA 500 MG CAPSULE PO SCH (09:23)
[2016-12-05] MEDS: NORMAL SALINE 1000 ML 1,000 ML IV PRN (15:01)
[2016-12-06] MEDS: HYDROMORPHONE HCL INJ/PF 2 MG/ML AMPULE IV PRN ×2 (01:58→07:59)
[2016-12-06] MEDS: NORMAL SALINE 1000 ML 1,000 ML IV PRN (01:59)
[2016-12-06] MEDS: ENOXAPARIN SODIUM INJ 40 MG/0.4 ML DISP.SYRIN SUBCUT SCH (08:04)
--- NOTE | 2016-12-06 09:05 | PDOC PROGRESS REPORT ---
Subjective Progress Note for:: 12/06/16 Subjective:: Patient reported improvement in his pain management but experience loss of balance with attempt to ambulate. No fever or chills. No chest pain or difficulty with breathing. No abdominal pain, nausea or vomiting. Appetite and p.o intake satisfactory. No significant constipation. Physical Exam Vital Signs: Temp Pulse Resp BP Pulse Ox 97.9 F 72 17 118/55 L 97 12/06/16 04:11 12/06/16 07:00 12/06/16 04:11 12/06/16 04:11 12/06/16 04:11 Intake & Output 12/05/16 12/06/16 12/07/16 06:59 06:59 06:59 Intake Total 3380 3700 Balance 3380 3700 Physical Exam: General appearance: PRESENT: no acute distress, mild distress - pain distress localized to left knee joint Head exam: PRESENT: atraumatic, normocephalic Eye exam: PRESENT: conjunctiva pink, EOMI, PERRLA. ABSENT: scleral icterus Respiratory exam: PRESENT: clear to auscultation ethan Cardiovascular exam: PRESENT: RRR. ABSENT: diastolic murmur, rubs, systolic murmur Vascular exam: PRESENT: normal capillary refill GI/Abdominal exam: PRESENT: normal bowel sounds, soft. ABSENT: distended, guarding, mass, organomegaly, rebound, tenderness Extremities exam: PRESENT: full ROM Musculoskeletal exam: PRESENT: tenderness - left knee joint with some evidence of small effusion Neurological exam: PRESENT: alert, awake, oriented to person, oriented to place , oriented to time, oriented to situation, CN II-XII grossly intact. ABSENT: motor sensory deficit Psychiatric exam: PRESENT: appropriate affect, normal mood. ABSENT: homicidal ideation, suicidal ideation Skin exam: PRESENT: dry, intact, warm. ABSENT: cyanosis, rash Results Laboratory Results: 12/04/16 05:50 12/04/16 05:50 Impressions: Chest X-Ray 12/01/16 22:01 IMPRESSION: NO ACUTE RADIOGRAPHIC FINDING IN THE CHEST. Knee X-Ray 12/04/16 00:00 IMPRESSION: STABLE APPEARANCE OF OSTEONECROSIS WITHIN THE MEDIAL FEMORAL CONDYLE. NO RADIOGRAPHIC EVIDENCE OF ACUTE INJURY. Assessment & Plan - Diagnosis (1) Knee pain, left Qualifiers: Chronicity: acute Qualified Code(s): M25.562 - Pain in left knee Is this a current diagnosis for this admission?: YesPlan: See attending physician orders. Continue current pain management regimen. I will request PT intervention. (2) Sickle cell disease with crisis Is this a current diagnosis for this admission?: YesPlan: See attending physician orders. Continue current pain management regimen. - Time Time Spent with patient: 25-34 minutes Medications reviewed and adjusted accordingly: Yes Anticipated discharge: Home Within: within 24 hours - Inpatient Certification Based on my medical assessment, after consideration of the patient's comorbidities, presenting symptoms, or acuity I expect that the services needed warrant INPATIENT care.: Yes I certify that my determination is in accordance with my understanding of Medicare's requirements for reasonable and necessary INPATIENT services [42 CFR 412.3e].: Yes Medical Necessity: Need Close Monitoring Due to Risk of Patient Decompensation, Need For IV Fluids, Need for Pain Control, Risk of Complication if Not Cared For in Hospital Post Hospital Care: D/C Traffic Or System Dispatcher 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
[2016-12-06] MEDS ORDERED: FENTANYL 100 MCG/HR PATCH.TD72 TOP SCH (10:00)
[2016-12-06] MEDS: FOLIC ACID 1 MG TABLET PO SCH (10:55)
[2016-12-06] MEDS: HYDROXYUREA 500 MG CAPSULE PO SCH (10:55)
[2016-12-06] MEDS: OXYCODONE HCL IR 5 MG TABLET PO PRN ×2 (15:38→20:01)
[2016-12-07] MEDS: OXYCODONE HCL IR 5 MG TABLET PO PRN ×3 (00:19→10:17)
[2016-12-07] MEDS: NORMAL SALINE 1000 ML 1,000 ML IV PRN (06:25)
--- NOTE | 2016-12-07 07:34 | PDOC PROGRESS REPORT ---
Subjective Progress Note for:: 12/07/16 Subjective:: Patient seen and evaluated this morning. States pain is left knee is improving. Notices improvement. Denies fever chills or sweats. Has been undergoing physical therapy. Physical Exam Vital Signs: Temp Pulse Resp BP Pulse Ox 98.2 F 92 15 114/47 L 94 12/07/16 04:38 12/07/16 04:38 12/07/16 04:38 12/07/16 04:38 12/07/16 04:38 Intake & Output 12/06/16 12/07/16 12/08/16 06:59 06:59 06:59 Intake Total 3700 5194 Balance 3700 5194 Musculoskeletal exam: PRESENT: other - Left knee: No evidence of effusion. Tenderness along the medial and lateral joint line. Knee range of motion 0/110 . No crepitation. No instability. Results Laboratory Results: 12/04/16 05:50 12/04/16 05:50 Impressions: Chest X-Ray 12/01/16 22:01 IMPRESSION: NO ACUTE RADIOGRAPHIC FINDING IN THE CHEST. Knee X-Ray 12/04/16 00:00 IMPRESSION: STABLE APPEARANCE OF OSTEONECROSIS WITHIN THE MEDIAL FEMORAL CONDYLE. NO RADIOGRAPHIC EVIDENCE OF ACUTE INJURY. Assessment & Plan - Diagnosis (1) Knee pain, left Qualifiers: Chronicity: acute Qualified Code(s): M25.562 - Pain in left knee Is this a current diagnosis for this admission?: Yes (2) Sickle cell disease with crisis Is this a current diagnosis for this admission?: Yes (3) Knee osteonecrosis, left Is this a current diagnosis for this admission?: YesPlan: I have reviewed patient's radiographs demonstrate knee osteonecrosis secondary to patient's sickle cell disease. At this point patient will continue physical therapy with protected weightbearing. I have recommended he follow up with Dr. Bryan in the upcoming week for further evaluation and possible treatment options.
[2016-12-07] MEDS: ENOXAPARIN SODIUM INJ 40 MG/0.4 ML DISP.SYRIN SUBCUT SCH (08:34)
[2016-12-07] MEDS: HYDROXYUREA 500 MG CAPSULE PO SCH (10:14)
[2016-12-07] MEDS: FOLIC ACID 1 MG TABLET PO SCH (10:14)
[2016-12-07 15:03] VITALS: BP 119/72
--- NOTE | 2016-12-11 07:20 | PDOC DISCHARGE SUMMARY ---
General - Admit/Disc Date/PCP Admission Date/Primary Care Provider: 12/03/16 17:20 ANDREW WILLIS Discharge Date: 12/07/16 - Discharge Diagnosis (1) Knee pain, left Is this a current diagnosis for this admission?: Yes (2) Sickle cell disease with crisis Is this a current diagnosis for this admission?: Yes - Additional Information Home Medications: Albuterol Sulfate [Proair HFA Inhalation Aerosol 8.5 gm MDI] 2 puff IH Q4HP PRN 12/02/16 Fentanyl [Duragesic 100 Mcg/Hr Transdermal Patch] 1 patch TOP Q3D 12/02/16 Folic Acid [Folvite 1 mg Tablet] 1 mg PO DAILY 12/02/16 Hydroxyurea [Hydrea 500 mg Capsule] 1,000 mg PO DAILY 12/02/16 Ibuprofen [Motrin 800 mg Tablet] 800 mg PO Q6HP PRN 12/02/16 Oxycodone HCl 30 mg PO Q4HP PRN 12/02/16 Folic Acid [Folvite 1 mg Tablet] 1 mg PO DAILY #0 tablet 12/07/16 Hydroxyurea [Hydrea 500 mg Capsule] 1,000 mg PO DAILY #0 capsule 12/07/16 Oxycodone HCl [Oxy-Ir 5 mg Tablet] 15 mg PO Q4HP PRN #0 tablet 12/07/16 History of Present Illness History of Present Illness: MARINO POZO is a 21 year old male with history of sickle cell disease SS, he came to the emergency room because of bone pains, he stated that he normally would have about 6-9 bone pain crisis in a year. There is no fever or chills to suggest infection Hospital Course Hospital Course: Patient pain was adequately controlled on IV hydromorphone and eventually changed over to his home pore admission regimen. He was seen in consultation by Dr Gavin, orthopedic surgeon, due to persistent left knee joint pain and associated effusion. His X ray revealed stable medial aspect osteonecrosis lesion related to his sickle cell disease process. He will be discharge home with outpatient rehabilitation eferral and follow up with orthopedic service as instructed. he will follow with me in office as instructed upon discharge. Physical Exam Vital Signs: Temp Pulse Resp BP Pulse Ox 98.0 F 98 18 136/85 H 95 12/07/16 11:50 12/07/16 11:50 12/07/16 11:50 12/07/16 11:50 12/07/16 11:50 Intake & Output 12/06/16 12/07/16 12/08/16 06:59 06:59 06:59 Intake Total 3700 5194 Balance 3700 5194 Physical Exam: General appearance: PRESENT: no acute distress, mild distress - pain distress localized to left knee joint Head exam: PRESENT: atraumatic, normocephalic Eye exam: PRESENT: conjunctiva pink, EOMI, PERRLA. ABSENT: scleral icterus Respiratory exam: PRESENT: clear to auscultation ethan Cardiovascular exam: PRESENT: RRR. ABSENT: diastolic murmur, rubs, systolic murmur Vascular exam: PRESENT: normal capillary refill GI/Abdominal exam: PRESENT: normal bowel sounds, soft. ABSENT: distended, guarding, mass, organomegaly, rebound, tenderness Extremities exam: PRESENT: full ROM Musculoskeletal exam: PRESENT: tenderness - left knee joint with some evidence of minimal effusion Neurological exam: PRESENT: alert, awake, oriented to person, oriented to place , oriented to time, oriented to situation, CN II-XII grossly intact. ABSENT: motor sensory deficit Psychiatric exam: PRESENT: appropriate affect, normal mood. ABSENT: homicidal ideation, suicidal ideation Skin exam: PRESENT: dry, intact, warm. ABSENT: cyanosis, rash Results Laboratory Results: 12/04/16 05:50 12/04/16 05:50 Impressions: Chest X-Ray 12/01/16 22:01 IMPRESSION: NO ACUTE RADIOGRAPHIC FINDING IN THE CHEST. Knee X-Ray 12/04/16 00:00 IMPRESSION: STABLE APPEARANCE OF OSTEONECROSIS WITHIN THE MEDIAL FEMORAL CONDYLE. NO RADIOGRAPHIC EVIDENCE OF ACUTE INJURY. Qualifiers PATEINT BEING DISCHARGED WITH ANY OF THE FOLLOWING DIAGNOSIS?: No Plan Discharge Plan: D/C home today with outpatient physical therapy service and referral to Dr Bryan , orthopedic surgeon. Follow up with me in office as instructed upon discharge.
== END 2016-12-07 15:19 | disposition home or self-care (01) | DRG 812 ==
LOC: ER 20:48 → EH 12-02 04:00 → OBSVTOIN 12-02 04:06 → EH 12-02 04:06 → UNDOADMOB 12-02 04:06 → INTOOBSV 12-02 04:06 → 5 12-02 06:54 → EH 12-02 06:54 → OBSVTOIN 12-03 17:20
PROVIDERS: ADMIT Internal Medicine Geriatric Medicine; ATTEND Internal Medicine Geriatric Medicine
DX: D57.00 Hb-SS disease with crisis, unspecified (principal); M90.58 Osteonecrosis in diseases classified elsewhere, other site; M25.562 Pain in left knee; J45.909 Unspecified asthma, uncomplicated; Z79.899 Other long term (current) drug therapy; Z91.018 Allergy to other foods; Z82.61 Family history of arthritis; Z83.3 Family history of diabetes mellitus; Z82.49 Family history of ischemic heart disease and other diseases of the circulatory system; Z82.5 Family history of asthma and other chronic lower respiratory diseases; Z83.2 Family history of diseases of the blood and blood-forming organs and certain disorders involving the immune mechanism
CPT/HCPCS: 36415; 36591; 71010; 80053; 81001; 82565; 85025; 85027; 85045; 85610; 85730; 93005; 93010; 96374; 96375; 96376; 99285; G0378; J1170; J1200; J1650; J2405; J3490; J7030

== ENCOUNTER 2016-12-15 22:20 | Emergency (ER) | payer MEDICAID ==
[2016-12-16] MEDS ORDERED: NORMAL SALINE 1000 ML 1,000 ML IV ONE (00:55)
[2016-12-16] MEDS ORDERED: ONDANSETRON HCL INJ/PF 4 MG/2 ML SDV IV ONE (00:55)
[2016-12-16] MEDS ORDERED: KETOROLAC TROMETHAMINE INJ/PF 30 MG/1 ML SDV IV ONE (00:55)
[2016-12-16] MEDS ORDERED: HYDROMORPHONE HCL INJ/PF 2 MG/ML AMPULE IV ONE ×2 (00:55→02:59)
--- NOTE | 2016-12-16 00:58 | ER Document Report ---
ED General Pain - General Chief Complaint: Sickle Cell Crisis Stated Complaint: SICKLE CELL CRISIS Mode of Arrival: Ambulatory Information source: Patient TRAVEL OUTSIDE OF THE [place] IN LAST 30 DAYS: No - HPI Patient complains to provider of: chest pain Notes: Patient arrives with complaints of chest pain. He states the pain has been present for the last several days. The patient has a history of sickle cell disease. He was recently admitted to the hospital for sickle cell disease with pain crisis in the left knee. States that the knee is feeling much better. The chest pain started approximately 3-4 days ago. No shortness of breath. No fever. No nausea vomiting diarrhea. No injury. Patient has a history of sickle cell disease and is typically on a fentanyl patch as well as 15 mg oxycodone. His pain medication at home does not seem to be improving his symptoms. - Related Data Allergies/Adverse Reactions: Coconut * [Coconut] Allergy (Mild, Verified 12/01/16 21:02) transpore tape Allergy (Mild, Uncoded 12/01/16 21:02) Hives Past Medical History - Social History Smoking Status: Never Smoker Frequency of alcohol use: Occasional Drug Abuse: None Family History: Arthritis, DM, Hypertension, Other - Sickle cell trait both parents and asthma Patient has suicidal ideation: No Patient has homicidal ideation: No Pulmonary Medical History: Reports: Hx Asthma, Hx Pneumonia Renal/ Medical History: Denies: Hx Peritoneal Dialysis Psychiatric Medical History: Denies: Hx Depression Past Surgical History: Reports: Hx Abdominal Surgery - Gallstones removal, Hx Vascular Surgery - Port placement. Denies: Hx Cholecystectomy. Comment Only: Hx Orthopedic Surgery - Fluid drained from right foot - Immunizations Immunizations up to date: Yes Hx Diphtheria, Pertussis, Tetanus Vaccination: Yes Hx Pneumococcal Vaccination: 01/15/13 Review of Systems - Review of Systems -: Yes All other systems reviewed and negative Physical Exam - Vital signs Vitals: Temp Pulse Resp BP Pulse Ox 98.9 F 91 20 148/88 H 95 12/15/16 22:34 12/15/16 22:34 12/15/16 22:34 12/15/16 22:34 12/15/16 22:34 - Notes Notes: GENERAL: alert, cooperative, nontoxic, no distress. HEAD: normocephalic, atraumatic EYES: conjunctiva pink without discharge, no external redness or swelling. EARS: no external swelling, no external redness NOSE: atraumatic, no external swelling MOUTH/THROAT: mucous membranes moist and pink, posterior pharynx without erythema, swelling, exudate. No trismus or drooling. NECK: soft, supple, full range of motion, no meningismus. CHEST: no distress, lungs clear and equal throughout. No wheezing, rales, rhonchi. CARDIAC: regular rate and rhythm, normal capillary refill, normal pulses. No peripheral edema noted. Systolic murmur noted. ABDOMEN: Soft, nontender. BACK: full range of motion, no CVA tenderness. EXTREMITIES: full range of motion of all extremities. No redness, no swelling. NEURO: alert and oriented 3, no focal deficits, full range of motion of all extremities. PYSCH: appropriate mood, affect. Patient is cooperative. SKIN: pink, warm, dry, no rash. Course - Re-evaluation Re-evalutation: 12/16/16 02:59 Patient resting comfortably at this time. He states that he is feeling somewhat better but is requesting another dose of pain medication. Chest x-ray shows no acute findings. His chemistries are unremarkable and EKG is negative. Currently I am awaiting his hematology results. I will order him another dose of pain medication if his hematology results are unremarkable the patient can be discharged home. 12/16/16 03:40 Patient is nontoxic. Stable vitals. Patient has no signs of obvious acute chest syndrome at this time. His vitals are stable. He is feeling better at this time. EKG and chest x-ray are unremarkable. His lab work is all stable in comparison to prior labs. Patient is feeling better at this time. He can be discharged home with his normal pain medication. Follow up with his report programmer at the next available appointment. Follow-up sooner for worsening pain, difficulty breathing, high fever, or any further concerns. The patient is noted to have elevated blood pressure during today's emergency department visit. The patient was informed of this finding. The patient was instructed that this may be related to pre-hypertension and requires further evaluation with a primary care provider. The patient has no hypertensive symptoms at this time. The patient's emergency department workup and current diagnosis were explained to the patient and or family. Follow-up instructions were provided. Medications if prescribed were discussed. Instructions for when to return to the emergency department including specific worrisome symptoms were discussed with the patient and/or family. - Vital Signs Vital signs: Temp Pulse Resp BP Pulse Ox 98.9 F 91 20 148/88 H 95 12/15/16 22:34 12/15/16 22:34 12/15/16 22:34 12/15/16 22:34 12/15/16 22:34 - Laboratory Result Diagrams: 12/16/16 01:45 12/16/16 01:45 Laboratory results interpreted by me: 12/16/16 12/16/16 01:45 01:45 RBC 2.45 L Hgb 9.7 L Hct 27.6 L MCV 113 H MCH 39.5 H RDW 25.7 H Retic Count (auto) 12.64 H Absolute Retic 0.310 H Sodium 145.1 H Total Bilirubin 2.4 H Direct Bilirubin 0.5 H - EKG Interpretation by Me EKG shows normal: Sinus rhythm, [place], Intervals, QRS Complexes, ST-T Waves Rate: Normal When compared to previous EKG there are: No significant change Discharge - Discharge Clinical Impression: Chest pain Qualifiers: Chest pain type: unspecified Qualified Code(s): R07.9 - Chest pain, unspecified Sickle cell disease Qualifiers: Sickle-cell associated disorders: without crisis Qualified Code(s): D57.1 - Sickle-cell disease without crisis Condition: Stable Disposition: HOME, SELF-CARE Instructions: Sickle Cell Crisis ([facility]) Additional Instructions: Continue taking her normal pain medication. Follow up with her report programmer at the next available appointment. Follow-up sooner for increased pain, fever, difficulty breathing, or any further concerns. Your blood pressure was elevated during today's visit. Have this rechecked with your doctor. Forms: Elevated Blood Pressure
[2016-12-16] MEDS ORDERED: DIPHENHYDRAMINE HCL 50 MG/ML VIAL IV ONE ×2 (01:11→03:00)
[2016-12-16 02:08] LABS: ALANINE AMINOTRANSFERASE 26 U/L (21-72); ALBUMIN 4.4 g/dL (3.5-5.0); ALKALINE PHOSPHATASE 111 U/L (38-126); ANION GAP 11 (5-19); ASPARTATE AMINO TRANSFERASE 53 U/L (17-59); BILIRUBIN,DIRECT 0.5 mg/dL (0.0-0.4); BILIRUBIN,TOTAL 2.4 mg/dL (0.2-1.3); BLOOD UREA NITROGEN 13 mg/dL (7-20); CALCIUM 9.1 mg/dL (8.4-10.2); CARBON DIOXIDE 30 mmol/L (22-30); CHLORIDE 104 mmol/L (98-107); CREATININE RESULT 0.69 mg/dL (0.52-1.25); GLUCOSE 92 mg/dL (75-110); HEMATOCRIT 27.6 % (37.9-51.0); HEMOGLOBIN 9.7 g/dL (13.5-17.0); HGB HCT DIFFERENCE 1.5; MEAN CORPUSCULAR HEMOGLOBIN 39.5 pg (27.0-33.4); MEAN CORPUSCULAR HGB CONC 35.1 g/dL (32.0-36.0); POTASSIUM 4.6 mmol/L (3.6-5.0); RED BLOOD COUNT 2.45 10^6/uL (4.35-5.55); RED CELL DISTRIBUTION WIDTH 25.7 % (11.5-14.0); SODIUM 145.1 mmol/L (137-145); TOTAL PROTEIN 7.8 g/dL (6.3-8.2)
[2016-12-16 02:55] LABS: POLYCHROMASIA 2+
[2016-12-16 02:56] LABS: ANISOCYTOSIS 3+; OVALOCYTES 2+; POIKILOCYTOSIS 1+; SCHISTOCYTES 1+; TARGET CELLS 1+
[2016-12-16 02:57] LABS: MEAN CORPUSCULAR VOLUME 113 fl (80-97)
[2016-12-16 04:48] VITALS: BP 120/74
--- NOTE | 2016-12-16 09:03 | EKG REPORT ---
SEVERITY:- NORMAL ECG - SINUS RHYTHM : Confirmed by: Howard Min MD 16-Dec-2016 09:02:40
[2016-12-18 10:33] LABS: WHITE BLOOD COUNT 5.3 10^3/uL (4.0-10.5)
[2016-12-18 10:37] LABS: PATH REVIEW PATHOLOGIST REVIEWED
[2016-12-18 10:38] LABS: BASOPHILS % (MANUAL) 0 % (0-2); EOSINOPHILS % (MANUAL) 2 % (0-6); LYMPHOCYTES % (MANUAL) 42 % (13-45); NUCLEATED RED BLOOD CELLS 105 /100 WBC (0); TOTAL CELLS COUNTED 100
== END 2016-12-16 04:49 | disposition home or self-care (01) ==
LOC: ER 22:20
DX: R07.9 Chest pain, unspecified (principal); D57.1 Sickle-cell disease without crisis; Z79.899 Other long term (current) drug therapy
CPT/HCPCS: 93005; 36591; 96376; 99284; 96361; 96374; 96375; 36415; 85025; 85045; 80053; 84484; 71020; 93010; J1200; J1885; J1170; J2405; J7030; J1642

== ENCOUNTER 2017-01-04 23:41 | Emergency (ER) | payer MEDICAID ==
[2017-01-05 00:13] VITALS: BP 140/83
== END 2017-01-05 01:30 | disposition left against medical advice (07) ==
LOC: ER 23:41
DX: Z53.21 Procedure and treatment not carried out due to patient leaving prior to being seen by health care provider (principal)

== ENCOUNTER 2017-01-31 14:46 | Inpatient (IN) | payer MEDICAID ==
[2017-01-31] MEDS ORDERED: DIPHENHYDRAMINE HCL 50 MG/ML VIAL IV ONE ×2 (16:23→18:23)
[2017-01-31] MEDS ORDERED: MORPHINE SULFATE 10 MG/ML INJ IV ONE ×3 (16:23→20:52)
--- NOTE | 2017-01-31 16:29 | ER Document Report ---
ED General Pain - General Chief Complaint: Sickle Cell Crisis Stated Complaint: BACK PAIN Time Seen by Provider: 01/31/17 16:23 Mode of Arrival: Ambulatory Information source: Patient TRAVEL OUTSIDE OF THE [place] IN LAST 30 DAYS: No - HPI Patient complains to provider of: Back pain Onset: Other - 3 days Onset/Duration: Gradual, Persistent Quality of pain: Achy Severity: Moderate Pain Level: 4 Context: Chronic problem, New onset Genotype: SC Exacerbated by: Denies Relieved by: Denies Similar symptoms previously: Yes Recently seen / treated by doctor: Yes Notes: Patient is a 21-year-old male who presents to the emergency room complaining of mid to low back pain that has been going on for the past 3 days, he reports a nonproductive cough that presented this morning, denies any fever, pain is typical of his usual sickle cell crisis, he takes oxycodone at home which is not helping today, he saw his pbx supervisor approximately 1 week ago, and spoke with both his pbx supervisor and his primary care provider who recommended he come to the emergency room today for evaluation - Related Data Allergies/Adverse Reactions: Coconut * [Coconut] Allergy (Mild, Verified 01/31/17 15:00) transpore tape Allergy (Mild, Uncoded 01/31/17 15:00) Hives Home Medications: Current Home Medications Oxycodone HCl [Oxy-Ir 5 mg Tablet] 1 tab PO Q4HP PRN 01/31/17 [History] Past Medical History - General Information source: Patient - Social History Smoking Status: Never Smoker Chew tobacco use (# tins/day): No Frequency of alcohol use: Rare Drug Abuse: None Family History: Arthritis, DM, Hypertension, Other - Sickle cell trait both parents and asthma Patient has suicidal ideation: No Patient has homicidal ideation: No Pulmonary Medical History: Reports: Hx Asthma, Hx Pneumonia Renal/ Medical History: Denies: Hx Peritoneal Dialysis Psychiatric Medical History: Denies: Hx Depression Past Surgical History: Reports: Hx Abdominal Surgery - Gallstones removal, Hx Vascular Surgery - Port placement. Denies: Hx Cholecystectomy. Comment Only: Hx Orthopedic Surgery - Fluid drained from right foot - Immunizations Immunizations up to date: Yes Hx Diphtheria, Pertussis, Tetanus Vaccination: Yes Hx Pneumococcal Vaccination: 01/15/13 Review of Systems - Review of Systems Constitutional: No symptoms reported EENT: No symptoms reported Cardiovascular: No symptoms reported Respiratory: Cough Gastrointestinal: No symptoms reported Genitourinary: No symptoms reported Male Genitourinary: No symptoms reported Musculoskeletal: Back pain Skin: No symptoms reported Hematologic/Lymphatic: No symptoms reported Neurological/Psychological: No symptoms reported -: Yes All other systems reviewed and negative Physical Exam - Vital signs Interpretation: Normal - General General appearance: Appears well, Alert - HEENT Head: Normocephalic, Atraumatic Eyes: Normal Pupils: PERRL - Respiratory Respiratory status: No respiratory distress Chest status: Nontender Breath sounds: Normal Chest palpation: Normal - Cardiovascular Rhythm: Regular Heart sounds: Normal auscultation Murmur: No - Abdominal Inspection: Normal Distension: No distension Bowel sounds: Normal Tenderness: Nontender Organomegaly: No organomegaly - Back Back: Normal, Nontender - Extremities General upper extremity: Normal inspection, Nontender, Normal color, Normal ROM , Normal temperature General lower extremity: Normal inspection, Nontender, Normal color, Normal ROM , Normal temperature, Normal weight bearing. No: Jeannine's sign - Neurological Neuro grossly intact: Yes Cognition: Normal Orientation: AAOx4 Rodo Coma Scale Eye Opening: Spontaneous [place] Coma Scale Verbal: Oriented Rodo Coma Scale Motor: Obeys Commands Rodo Coma Scale Total: 15 Speech: Normal Motor strength normal: LUE, RUE, LLE, RLE Sensory: Normal - Psychological Associated symptoms: Normal affect, Normal mood - Skin Skin Temperature: Warm Skin Moisture: Dry Skin Color: Normal Course - Re-evaluation Re-evalutation: 01/31/17 22:29 Patient continues to have pain related to sickle cell crisis, was discussed with primary care provider who agrees to admit for further evaluation and treatment - Laboratory Result Diagrams: 01/31/17 17:30 01/31/17 17:30 Laboratory results interpreted by me: 01/31/17 01/31/17 01/31/17 16:55 17:30 17:30 RBC 2.89 L Hgb 11.7 L Hct 34.8 L MCV 121 H MCH 40.6 H RDW 20.6 H Retic Count (auto) 5.91 H Absolute Retic 0.171 H Sodium 145.7 H Calcium 10.3 H Total Bilirubin 2.0 H AST 61 H Alkaline Phosphatase 149 H Total Protein 10.2 H Albumin 5.2 H Urine Protein 30 H Urine Blood SMALL H - Diagnostic Test Radiology reviewed: Image reviewed, Reports reviewed Discharge - Discharge Clinical Impression: Hb-SS disease with crisis Condition: Stable Disposition: ADMITTED INPATIENT Admitting Provider: Maximino Unit Admitted: Medical Floor
[2017-01-31 17:21] LABS: APPEARANCE,URINE CLEAR; BILIRUBIN,URINE NEGATIVE (NEGATIVE); GLUCOSE, URINE NEGATIVE (NEGATIVE); KETONES,URINE NEGATIVE (NEGATIVE); LEUKOCYTE ESTERASE,URINE NEGATIVE (NEGATIVE); NITRITE,URINE NEGATIVE (NEGATIVE); PROTEIN,URINE 30 mg/dL (NEGATIVE); UROBILINOGEN,URINE NEGATIVE mg/dL (<2.0)
--- NOTE | 2017-01-31 17:30 | RADIOLOGY REPORT (SQ) ---
EXAM DESCRIPTION: CHEST PA/LAT COMPLETED DATE/TIME: 01/31/2017 5:15 pm REASON FOR STUDY: back pain COMPARISON: 12/16/2016 EXAM PARAMETERS: NUMBER OF VIEWS: two views TECHNIQUE: Digital Frontal and Lateral radiographic views of the chest acquired. RADIATION DOSE: NA LIMITATIONS: none FINDINGS: LUNGS AND PLEURA: No opacities, masses or pneumothorax. No pleural effusion. MEDIASTINUM AND HILAR STRUCTURES: No masses or contour abnormalities. HEART AND VASCULAR STRUCTURES: Heart normal size. No evidence for failure. BONES: No acute findings. HARDWARE: A catheter remains in place on the right. OTHER: No other significant finding. IMPRESSION: NO SIGNIFICANT RADIOGRAPHIC FINDING IN THE CHEST. TECHNICAL DOCUMENTATION: JOB ID: [id number] [employer]- All Rights Reserved
[2017-01-31 17:48] LABS: HEMATOCRIT 34.8 % (37.9-51.0); HEMOGLOBIN 11.7 g/dL (13.5-17.0); HGB HCT DIFFERENCE 0.3; MEAN CORPUSCULAR HEMOGLOBIN 40.6 pg (27.0-33.4); MEAN CORPUSCULAR HGB CONC 33.7 g/dL (32.0-36.0); MEAN CORPUSCULAR VOLUME 121 fl (80-97); RED BLOOD COUNT 2.89 10^6/uL (4.35-5.55); RED CELL DISTRIBUTION WIDTH 20.6 % (11.5-14.0); WHITE BLOOD COUNT 4.1 10^3/uL (4.0-10.5)
[2017-01-31] MEDS: NORMAL SALINE 1000 ML 1,000 ML IV PRN ×4 (17:49→21:08)
[2017-01-31 18:02] LABS: ALANINE AMINOTRANSFERASE 35 U/L (21-72); ALBUMIN 5.2 g/dL (3.5-5.0); ALKALINE PHOSPHATASE 149 U/L (38-126); ANION GAP 17 (5-19); ASPARTATE AMINO TRANSFERASE 61 U/L (17-59); BILIRUBIN,DIRECT 0.3 mg/dL (0.0-0.4); BLOOD UREA NITROGEN 11 mg/dL (7-20); CALCIUM 10.3 mg/dL (8.4-10.2); CARBON DIOXIDE 26 mmol/L (22-30); CHLORIDE 103 mmol/L (98-107); CREATININE RESULT 0.69 mg/dL (0.52-1.25); GLUCOSE 100 mg/dL (75-110); POTASSIUM 4.9 mmol/L (3.6-5.0); SODIUM 145.7 mmol/L (137-145); TOTAL PROTEIN 10.2 g/dL (6.3-8.2)
[2017-01-31 18:11] LABS: BASOPHILS % (MANUAL) 0 % (0-2); EOSINOPHILS % (MANUAL) 0 % (0-6); LYMPHOCYTES % (MANUAL) 45 % (13-45); NUCLEATED RED BLOOD CELLS 26 /100 WBC (0); TOTAL CELLS COUNTED 100
[2017-01-31 18:14] LABS: ANISOCYTOSIS 2+; POIKILOCYTOSIS 2+; POLYCHROMASIA SLIGHT
[2017-01-31 18:15] LABS: OVALOCYTES 1+; TARGET CELLS 1+
[2017-01-31] MEDS ORDERED: DIAZEPAM INJ 10 MG/2 ML DISP.SYRIN IV ONE (19:35)
[2017-01-31] MEDS ORDERED: NORMAL SALINE 1000 ML 1,000 ML IV PRN (20:52)
[2017-02-01] MEDS ORDERED: ALBUTEROL SULFATE HFA (90 MCG/PUFF) 200 PUFF/8.5 GM MDI IH PRN (00:43)
[2017-02-01] MEDS ORDERED: IBUPROFEN 800 MG TABLET PO PRN (00:44)
[2017-02-01] MEDS ORDERED: FENTANYL 100 MCG/HR PATCH.TD72 TD ONE (01:00)
[2017-02-01] MEDS: MORPHINE SULFATE 10 MG/ML INJ IV PRN ×6 (01:28→21:58)
[2017-02-01] MEDS: NORMAL SALINE 1000 ML 1,000 ML IV PRN ×2 (01:36→10:08)
[2017-02-01] MEDS: LANSOPRAZOLE 30 MG TAB.RAP.DR PO SCH (05:42)
[2017-02-01] MEDS: FOLIC ACID 1 MG TABLET PO SCH (09:48)
[2017-02-01] MEDS: HYDROXYUREA 500 MG CAPSULE PO SCH (09:48)
[2017-02-01] MEDS ORDERED: FENTANYL 100 MCG/HR PATCH.TD72 TD SCH (10:00)
--- NOTE | 2017-02-01 17:41 | PDOC H&P ---
History of Present Illness Admission Date/PCP: 01/31/17 23:45 ANDREW LAZARO Patient complains of: Back pain History of Present Illness: MARINO POZO is a 21 year old male, known to my practice who presented to ED with 3 days history of worsening mid to lower back pain. Patient denied any recent fall, trauma or instrumentation. 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 He denied any fever or chills. Admitted to new onset nonproductive coughing on the day of his presentation. Patient reported minimal benefit from his current home medication for pain that include Fentanyl patch, Ibuprofen and Oxycodone. Despite administration of several doses of IV Morphine patient continue to express significant pain necessitating his admission as case of SCD with pain crisis. His initioal laboratory assessment revealed fairly stable hemoglobin level but indices suggestive of hemolytic process. Past Medical History Pulmonary Medical History: Reports: Asthma, Pneumonia Psychiatric Medical History: Denies: Depression Hematology: Reports: Anemia, Sickle Cell Disease, Bleeding Tendencies Past Surgical History Past Surgical History: Reports: Vascular Surgery - Port placement Denies: Cholecystectomy Comment Only: Orthopedic Surgery - Fluid drained from right foot Social History Smoking Status: Never Smoker Frequency of Alcohol Use: None Hx Recreational Drug Use: No Drugs: None Hx Prescription Drug Abuse: No - Advance Directive Resuscitation Status: Full Code Family History Family History: Arthritis, DM, Hypertension, Other - Sickle cell trait both parents and asthma Parental Family History Reviewed: Yes Children Family History Reviewed: Yes Sibling(s) Family History Reviewed.: Yes Medication/Allergy Home Medications: Albuterol Sulfate [Proair HFA] 2 puff IH Q4HP PRN 02/01/17 Fentanyl [Duragesic 100 Mcg/Hr Transdermal Patch] 1 patch TD Q3D 02/01/17 Fluticasone/Salmeterol [Advair HFA 115-21 mcg Inhaler] 1 puff IH DAILY 02/01/17 Folic Acid [Folvite 1 mg Tablet] 1 mg PO DAILY 02/01/17 Hydroxyurea [Hydrea 500 mg Capsule] 1,000 mg PO SUTUTHSA 02/01/17 Hydroxyurea [Hydrea 500 mg Capsule] 1,500 mg PO MOWEFR 02/01/17 Ibuprofen [Motrin 800 mg Tablet] 800 mg PO Q6HP PRN 02/01/17 Naproxen 500 mg PO Q12 02/01/17 Ondansetron [Zofran Odt 4 mg Tablet] 4 mg PO Q6HP PRN 02/01/17 Oxycodone HCl [Oxy-Ir 5 mg Tablet] 5 mg PO Q4 02/01/17 Allergies/Adverse Reactions: Coconut * [Coconut] Allergy (Mild, Verified 01/31/17 15:00) transpore tape Allergy (Mild, Uncoded 01/31/17 15:00) Hives Review of Systems Constitutional: ABSENT: chills, fever(s), headache(s), weight gain, weight loss Eyes: ABSENT: visual disturbances Ears: ABSENT: hearing changes Nose, Mouth, and Throat: ABSENT: as per HPI, headache(s), mouth pain, sore throat, vertigo, other Cardiovascular: ABSENT: chest pain, dyspnea on exertion, edema, orthropnea, palpitations Respiratory: ABSENT: cough, hemoptysis Gastrointestinal: ABSENT: abdominal pain, constipation, diarrhea, hematemesis, hematochezia, nausea, vomiting Genitourinary: ABSENT: dysuria, hematuria Musculoskeletal: PRESENT: back pain Integumentary: ABSENT: rash, wounds Neurological: ABSENT: abnormal gait, abnormal speech, confusion, dizziness, focal weakness, syncope Psychiatric: ABSENT: anxiety, depression, homidical ideation, suicidal ideation Hematologic/Lymphatic: ABSENT: easy bleeding, easy bruising, lymphadenopathy Allergic/Immunologic: ABSENT: as per HPI, seasonal rhinorrhea, other Physical Exam Vital Signs: Temp Pulse Resp BP Pulse Ox 98.0 F 91 15 115/75 95 02/01/17 15:22 02/01/17 15:22 02/01/17 15:22 02/01/17 15:22 02/01/17 15:22 Intake & Output 01/31/17 02/01/17 02/02/17 06:59 06:59 06:59 Intake Total 720 300 Output Total 700 Balance 20 300 General appearance: PRESENT: severe distress - from pain Head exam: PRESENT: atraumatic, normocephalic Eye exam: PRESENT: conjunctiva pink, EOMI, PERRLA. ABSENT: scleral icterus Ear exam: PRESENT: normal external ear exam Mouth exam: PRESENT: moist, tongue midline Teeth exam: ABSENT: dental caries, dental tenderness, edentulous, poor dentation , other Throat exam: ABSENT: post pharyngeal erythema, tonsillar erythema, tonsillar exudate, tonsillogmegaly, other Neck exam: PRESENT: full ROM. ABSENT: carotid bruit, JVD, lymphadenopathy, thyromegaly Respiratory exam: PRESENT: clear to auscultation ethan Cardiovascular exam: PRESENT: RRR. ABSENT: diastolic murmur, rubs, systolic murmur Pulses: PRESENT: normal dorsalis pedis pul, +2 pedal pulses bilateral Vascular exam: PRESENT: normal capillary refill GI/Abdominal exam: PRESENT: normal bowel sounds, soft. ABSENT: distended, guarding, mass, organolmegaly, rebound, tenderness Rectal exam: PRESENT: deferred Extremities exam: PRESENT: tenderness - mid asndf lumbosacral vertebral region tenderness to palpation. ABSENT: pedal edema Musculoskeletal exam: PRESENT: tenderness - mid and lumbosacra;l vertebral spine regions tenderness to palpation and motion Neurological exam: PRESENT: alert, awake, oriented to person, oriented to place , oriented to time, oriented to situation, CN II-XII grossly intact. ABSENT: motor sensory deficit Psychiatric exam: PRESENT: appropriate affect, normal mood. ABSENT: homicidal ideation, suicidal ideation Skin exam: PRESENT: dry, intact, warm. ABSENT: cyanosis, rash Results Impressions: Chest X-Ray 01/31/17 16:24 IMPRESSION: NO SIGNIFICANT RADIOGRAPHIC FINDING IN THE CHEST. Assessment & Plan - Diagnosis (1) Sickle cell disease with crisis Is this a current diagnosis for this admission?: YesPlan: See admitting physician orders. (2) Asthma Qualifiers: Asthma severity: mild intermittent Asthma complication type: uncomplicated Qualified Code(s): J45.20 - Mild intermittent asthma, uncomplicated Is this a current diagnosis for this admission?: YesPlan: See admitting physician orders - Time Time Spent: 50 to 70 Minutes Medications reviewed and adjusted accordingly: Yes Anticipated discharge: Home Within: Other - Inpatient Certification Medical Necessity: Failure to Improve With Outpatient Therapy, Need Close Monitoring Due to Risk of Patient Decompensation, Need For IV Fluids, Need for Pain Control, Risk of Complication if Not Cared For in Hospital Post Hospital Care: D/C Process Line Operator Documentation - Plan Summary Plan Summary: See admitting physician orders
[2017-02-02] MEDS: MORPHINE SULFATE 10 MG/ML INJ IV PRN ×6 (02:01→22:23)
[2017-02-02] MEDS: LANSOPRAZOLE 30 MG TAB.RAP.DR PO SCH (06:06)
[2017-02-02 06:57] LABS: HEMATOCRIT 27.3 % (37.9-51.0); HGB HCT DIFFERENCE 0.9; MEAN CORPUSCULAR HEMOGLOBIN 41.8 pg (27.0-33.4); MEAN CORPUSCULAR HGB CONC 34.4 g/dL (32.0-36.0); MEAN CORPUSCULAR VOLUME 121 fl (80-97); RED BLOOD COUNT 2.25 10^6/uL (4.35-5.55); RED CELL DISTRIBUTION WIDTH 20.2 % (11.5-14.0); WHITE BLOOD COUNT 4.2 10^3/uL (4.0-10.5)
[2017-02-02 07:06] LABS: ALANINE AMINOTRANSFERASE 27 U/L (21-72); ALBUMIN 3.8 g/dL (3.5-5.0); ALKALINE PHOSPHATASE 107 U/L (38-126); ANION GAP 10 (5-19); ASPARTATE AMINO TRANSFERASE 42 U/L (17-59); BILIRUBIN,DIRECT 0.2 mg/dL (0.0-0.4); BILIRUBIN,TOTAL 1.4 mg/dL (0.2-1.3); BLOOD UREA NITROGEN 9 mg/dL (7-20); CALCIUM 8.8 mg/dL (8.4-10.2); CARBON DIOXIDE 28 mmol/L (22-30); CHLORIDE 105 mmol/L (98-107); CREATININE RESULT 0.69 mg/dL (0.52-1.25); GLUCOSE 91 mg/dL (75-110); SODIUM 142.7 mmol/L (137-145)
[2017-02-02 07:28] LABS: BASOPHILS % (MANUAL) 0 % (0-2); EOSINOPHILS % (MANUAL) 2 % (0-6); LYMPHOCYTES % (MANUAL) 50 % (13-45); NUCLEATED RED BLOOD CELLS 19 /100 WBC (0); TOTAL CELLS COUNTED 100
[2017-02-02 07:30] LABS: ANISOCYTOSIS 2+; HELMET CELLS SLIGHT; OVALOCYTES SLIGHT; POIKILOCYTOSIS 2+; POLYCHROMASIA SLIGHT; TARGET CELLS SLIGHT
[2017-02-02 07:34] LABS: HEMOGLOBIN 9.4 g/dL (13.5-17.0)
[2017-02-02] MEDS ORDERED: FLUTICASONE IH SCH (10:00)
[2017-02-02] MEDS ORDERED: SALMETEROL IH SCH (10:00)
[2017-02-02] MEDS: FOLIC ACID 1 MG TABLET PO SCH (10:06)
[2017-02-02] MEDS: HYDROXYUREA 500 MG CAPSULE PO SCH (10:06)
--- NOTE | 2017-02-02 10:31 | PDOC PROGRESS REPORT ---
Subjective Progress Note for:: 02/02/17 Subjective:: Patient reported some improvement in his pain level. He will attempt walking on the floor today. He denied any chest pain, difficulty with breathing, fever or chills. Physical Exam Vital Signs: Temp Pulse Resp BP Pulse Ox 98.7 F 101 H 16 127/73 H 95 02/02/17 07:31 02/02/17 07:31 02/02/17 07:31 02/02/17 07:31 02/02/17 07:31 Intake & Output 02/01/17 02/02/17 02/03/17 06:59 06:59 06:59 Intake Total 720 4301 480 Output Total 700 2775 Balance 20 1526 480 Weight 66.1 kg Physical Exam: General appearance: PRESENT: severe distress - from pain Head exam: PRESENT: atraumatic, normocephalic Eye exam: PRESENT: conjunctiva pink, EOMI, PERRLA. ABSENT: scleral icterus Mouth exam: PRESENT: moist, tongue midline Respiratory exam: PRESENT: clear to auscultation ethan Cardiovascular exam: PRESENT: RRR. ABSENT: diastolic murmur, rubs, systolic murmur GI/Abdominal exam: PRESENT: normal bowel sounds, soft. ABSENT: distended, guarding, mass, organomegaly, rebound, tendernes Extremities exam: PRESENT: moderated expressed tenderness - mid and lumbosacral vertebral region tenderness to palpation. ABSENT: pedal edema Musculoskeletal exam: PRESENT: tenderness - mid and lumbosacra;l vertebral spine regions tenderness to palpation and motion Neurological exam: PRESENT: alert, awake, oriented to person, oriented to place , oriented to time, oriented to situation, CN II-XII grossly intact. ABSENT: motor sensory deficit Psychiatric exam: PRESENT: appropriate affect, normal mood. ABSENT: homicidal ideation, suicidal ideation Skin exam: PRESENT: dry, intact, warm. ABSENT: cyanosis, rash Results Laboratory Results: 02/02/17 06:40 02/02/17 06:40 02/02/17 02/02/17 06:40 06:40 WBC 4.2 RBC 2.25 L Hgb 9.4 L D Hct 27.3 L MCV 121 H MCH 41.8 H MCHC 34.4 RDW 20.2 H Plt Count 181 Seg Neutrophils % Not Reportable Lymphocytes % Not Reportable Monocytes % Not Reportable Eosinophils % Not Reportable Basophils % Not Reportable Absolute Neutrophils Not Reportable Absolute Lymphocytes Not Reportable Absolute Monocytes Not Reportable Absolute Eosinophils Not Reportable Absolute Basophils Not Reportable Sodium 142.7 Potassium 4.0 Chloride 105 Carbon Dioxide 28 Anion Gap 10 BUN 9 Creatinine 0.69 Est GFR ( Amer) > 60 Est GFR (Non-Af Amer) > 60 Glucose 91 Calcium 8.8 Total Bilirubin 1.4 H AST 42 ALT 27 Alkaline Phosphatase 107 Total Protein 7.0 Albumin 3.8 Impressions: Chest X-Ray 01/31/17 16:24 IMPRESSION: NO SIGNIFICANT RADIOGRAPHIC FINDING IN THE CHEST. Assessment & Plan - Diagnosis (1) Sickle cell disease with crisis Is this a current diagnosis for this admission?: YesPlan: See attending physician orders. 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 - Time Time Spent with patient: 25-34 minutes Medications reviewed and adjusted accordingly: Yes Anticipated discharge: Home Within: Other - Inpatient Certification Post Hospital Care: D/C Spa Concierge Documentation - Plan Summary Plan Summary: Continue current medication management. Monitor CBC indices.
[2017-02-02] MEDS: NORMAL SALINE 1000 ML 1,000 ML IV PRN (16:47)
[2017-02-03] MEDS: MORPHINE SULFATE 10 MG/ML INJ IV PRN ×5 (02:24→20:10)
[2017-02-03] MEDS: NORMAL SALINE 1000 ML 1,000 ML IV PRN (02:25)
[2017-02-03] MEDS: LANSOPRAZOLE 30 MG TAB.RAP.DR PO SCH (05:55)
[2017-02-03] MEDS: HYDROXYUREA 500 MG CAPSULE PO SCH (10:18)
[2017-02-03] MEDS: FOLIC ACID 1 MG TABLET PO SCH (10:19)
--- NOTE | 2017-02-03 10:20 | PDOC PROGRESS REPORT ---
Subjective Progress Note for:: 02/03/17 Subjective:: Patient reported episodes of nasal bleeding since last clinical evaluation. Improving pain control. He denied any chest pain, difficulty with breathing, fever or chills. He did ambulate on the floor since last evaluation. Physical Exam Vital Signs: Temp Pulse Resp BP Pulse Ox 98.6 F 93 18 130/74 H 96 02/03/17 07:52 02/03/17 07:52 02/03/17 07:52 02/03/17 07:52 02/03/17 07:52 Intake & Output 02/02/17 02/03/17 02/04/17 06:59 06:59 06:59 Intake Total 4301 4536 Output Total 2775 450 Balance 1526 4086 Weight 66.1 kg 65.2 kg Physical Exam: General appearance: PRESENT: severe distress - from pain Head exam: PRESENT: atraumatic, normocephalic Eye exam: PRESENT: conjunctiva pink, EOMI, PERRLA. ABSENT: scleral icterus Mouth exam: PRESENT: moist, tongue midline Respiratory exam: PRESENT: clear to auscultation ethan Cardiovascular exam: PRESENT: RRR. ABSENT: diastolic murmur, rubs, systolic murmur GI/Abdominal exam: PRESENT: normal bowel sounds, soft. ABSENT: distended, guarding, mass, organomegaly, rebound, tenderness Extremities exam: PRESENT: mild expressed tenderness - mid and lumbosacral vertebral region tenderness to palpation. ABSENT: pedal edema Musculoskeletal exam: PRESENT: tenderness - mid and lumbosacral vertebral spine regions tenderness to palpation and motion Neurological exam: PRESENT: alert, awake, oriented to person, oriented to place , oriented to time, oriented to situation, CN II-XII grossly intact. ABSENT: motor sensory deficit Psychiatric exam: PRESENT: appropriate affect, normal mood. ABSENT: homicidal ideation, suicidal ideation Skin exam: PRESENT: dry, intact, warm. ABSENT: cyanosis, rash Results Laboratory Results: 02/02/17 06:40 02/02/17 06:40 Impressions: Chest X-Ray 01/31/17 16:24 IMPRESSION: NO SIGNIFICANT RADIOGRAPHIC FINDING IN THE CHEST. 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 Patient did agree to use of saline mist to maintain nasal moisture. - Time Time Spent with patient: 25-34 minutes Medications reviewed and adjusted accordingly: Yes Anticipated discharge: Home Within: Other - Inpatient Certification Based on my medical assessment, after consideration of the patient's comorbidities, presenting symptoms, or acuity I expect that the services needed warrant INPATIENT care.: Yes I certify that my determination is in accordance with my understanding of Medicare's requirements for reasonable and necessary INPATIENT services [42 CFR 412.3e].: Yes Medical Necessity: Failure to Improve With Outpatient Therapy, Need Close Monitoring Due to Risk of Patient Decompensation, Need For IV Fluids, Need for Pain Control, Risk of Complication if Not Cared For in Hospital Post Hospital Care: D/C School Age Program Associate 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
[2017-02-03] MEDS: SODIUM CHLORIDE NASAL SPRAY 44 ML NASL SCH ×2 (17:43→23:41)
[2017-02-04] MEDS: MORPHINE SULFATE 10 MG/ML INJ IV PRN ×3 (00:28→09:10)
[2017-02-04] MEDS: NORMAL SALINE 1000 ML 1,000 ML IV PRN ×2 (00:28→11:37)
[2017-02-04] MEDS: LANSOPRAZOLE 30 MG TAB.RAP.DR PO SCH (05:17)
[2017-02-04] MEDS ORDERED: FENTANYL 100 MCG/HR PATCH.TD72 TD SCH (10:00)
[2017-02-04] MEDS: SODIUM CHLORIDE NASAL SPRAY 44 ML NASL SCH ×2 (10:33→11:20)
[2017-02-04] MEDS: FOLIC ACID 1 MG TABLET PO SCH (10:34)
[2017-02-04] MEDS: HYDROXYUREA 500 MG CAPSULE PO SCH (10:50)
[2017-02-04 11:54] VITALS: BP 131/69
--- NOTE | 2017-02-04 11:58 | PDOC DISCHARGE SUMMARY ---
General - Admit/Disc Date/PCP Admission Date/Primary Care Provider: 01/31/17 23:45 ANDREWJESSE WILLIS Discharge Date: 02/04/17 - Discharge Diagnosis (1) Sickle cell disease with crisis Is this a current diagnosis for this admission?: Yes (2) Asthma Is this a current diagnosis for this admission?: Yes (3) Sickle cell anemia Is this a current diagnosis for this admission?: Yes (4) Anterior epistaxis Is this a current diagnosis for this admission?: No - Additional Information Resuscitation Status: Full Code Discharge Diet: Regular Discharge Activity: Activity As Tolerated Home Medications: Albuterol Sulfate [Proair HFA] 2 puff IH Q4HP PRN 02/01/17 Fentanyl [Duragesic 100 Mcg/Hr Transdermal Patch] 1 patch TD Q3D 02/01/17 Fluticasone/Salmeterol [Advair HFA 115-21 mcg Inhaler] 1 puff IH DAILY 02/01/17 Folic Acid [Folvite 1 mg Tablet] 1 mg PO DAILY 02/01/17 Hydroxyurea [Hydrea 500 mg Capsule] 1,000 mg PO SUTUTHSA 02/01/17 Hydroxyurea [Hydrea 500 mg Capsule] 1,500 mg PO MOWEFR 02/01/17 Ibuprofen [Motrin 800 mg Tablet] 800 mg PO Q6HP PRN 02/01/17 Ondansetron [Zofran Odt 4 mg Tablet] 4 mg PO Q6HP PRN 02/01/17 Oxycodone HCl [Oxy-Ir 5 mg Tablet] 5 mg PO Q4 #20 tablet 02/04/17 Sodium Chloride [[place] Nasal [place] 44 ml Bottle] 1 spray NASL ACHS #1 bottle 01/16 History of Present Illness History of Present Illness: MARINO POZO is a 21 year old male, known to my practice who presented to ED with 3 days history of worsening mid to lower back pain. Patient denied any recent fall, trauma or instrumentation. 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 He denied any fever or chills. Admitted to new onset nonproductive coughing on the day of his presentation. Patient reported minimal benefit from his current home medication for pain that include Fentanyl patch, Ibuprofen and Oxycodone. Despite administration of several doses of IV Morphine patient continue to express significant pain necessitating his admission as case of SCD with pain crisis. His initioal laboratory assessment revealed fairly stable hemoglobin level but indices suggestive of hemolytic process. Hospital Course Hospital Course: Patient was admitted for SCK in pain crisis and managed with IV Morphine along with all other readmission pain management medication except the Naproxen and Oxy IR. Patient remain adequately hydrated with IV fluid infusion. The drop in his hemoglobin is probably a combination of hemodilution and low grade associated hemolytic process in view of his elevated total bilirubin. His mid and lower back pain did improve and patient have been ambulatory on the floor. He is agreeable with discharge home today and follow up with his housing manager/ pain management team. He will follow up with me in the office for post hospitalization care for continue management of his asthma. He will follow up in the office as instructed upon discharge. Physical Exam Vital Signs: Temp Pulse Resp BP Pulse Ox 98.3 F 70 16 115/71 97 02/04/17 07:18 02/04/17 07:18 02/04/17 07:18 02/04/17 07:18 02/04/17 07:18 Intake & Output 02/03/17 02/04/17 02/05/17 06:59 06:59 06:59 Intake Total 4536 4121 Output Total 450 2800 Balance 4086 1321 Weight 65.2 kg 65.9 kg Physical Exam: General appearance: PRESENT: severe distress - from pain Head exam: PRESENT: atraumatic, normocephalic Eye exam: PRESENT: conjunctiva pink, EOMI, PERRLA. ABSENT: scleral icterus Mouth exam: PRESENT: moist, tongue midline Respiratory exam: PRESENT: clear to auscultation ethan Cardiovascular exam: PRESENT: RRR. ABSENT: diastolic murmur, rubs, systolic murmur GI/Abdominal exam: PRESENT: normal bowel sounds, soft. ABSENT: distended, guarding, mass, organomegaly, rebound, tenderness Extremities exam: PRESENT: Resolved mid and lumbosacral vertebral region tenderness to palpation. ABSENT: pedal edema Musculoskeletal exam: PRESENT: tenderness - mid and lumbosacral vertebral spine regions tenderness to palpation and motion Neurological exam: PRESENT: alert, awake, oriented to person, oriented to place , oriented to time, oriented to situation, CN II-XII grossly intact. ABSENT: motor sensory deficit Psychiatric exam: PRESENT: appropriate affect, normal mood. ABSENT: homicidal ideation, suicidal ideation Skin exam: PRESENT: dry, intact, warm. ABSENT: cyanosis, rash Results Laboratory Results: 02/02/17 06:40 02/02/17 06:40 Impressions: Chest X-Ray 01/31/17 16:24 IMPRESSION: NO SIGNIFICANT RADIOGRAPHIC FINDING IN THE CHEST. Qualifiers PATEINT BEING DISCHARGED WITH ANY OF THE FOLLOWING DIAGNOSIS?: No Plan Discharge Plan: D/C home today. Emphasized follow up with housing manager and pain management team. I will dispense 20 tablets of Oxy IR to use q4 hours prn until seen by the housing manager/pain management team. Follow up in the office for post discharge care and Asthma management as instructed upon discharge.
== END 2017-02-04 13:20 | disposition home or self-care (01) | DRG 812 ==
LOC: ER 14:46 → UNDOADMIN 21:58 → EH 21:58 → 4S 02-01 00:23 → EH 02-01 00:23 → 4S 02-01 11:30 → 5 02-04 07:45
PROVIDERS: ADMIT Internal Medicine Geriatric Medicine; ATTEND Internal Medicine Geriatric Medicine
DX: D57.00 Hb-SS disease with crisis, unspecified (principal); J45.20 Mild intermittent asthma, uncomplicated; R04.0 Epistaxis; Z82.49 Family history of ischemic heart disease and other diseases of the circulatory system; Z83.3 Family history of diabetes mellitus; Z82.5 Family history of asthma and other chronic lower respiratory diseases; Z91.018 Allergy to other foods; Z79.899 Other long term (current) drug therapy
CPT/HCPCS: 36415; 36591; 71020; 80053; 81001; 85025; 85045; 96361; 96374; 96375; 96376; 99285; J1200; J2270; J3360; J3490; J7030

== ENCOUNTER 2017-03-27 12:16 | Inpatient (IN) | payer MEDICAID ==
--- NOTE | 2017-03-27 12:54 | ER Document Report ---
ED Medical Screen (RME) - General Chief Complaint: Sickle Cell Crisis Stated Complaint: PAIN IN LOWER BACK Time Seen by Provider: 03/27/17 12:53 Notes: Patient presents with complaints of sickle cell pain. Patient states that the pain is mainly in his lower back and this is usually where he gets the pain. He denies any chest pain or shortness of breath. No fevers. TRAVEL OUTSIDE OF THE [place] IN LAST 30 DAYS: No - Related Data Allergies/Adverse Reactions: Coconut * [Coconut] Allergy (Mild, Verified 03/27/17 12:23) transpore tape Allergy (Mild, Uncoded 03/27/17 12:23) Hives Home Medications: Current Home Medications Oxycodone HCl [Oxy-Ir 5 mg Tablet] 15 mg PO Q4 03/27/17 [History] Past Medical History - Social History Frequency of alcohol use: Rare Drug Abuse: None Pulmonary Medical History: Reports: Hx Asthma, Hx Pneumonia Renal/ Medical History: Denies: Hx Peritoneal Dialysis Psychiatric Medical History: Denies: Hx Depression Past Surgical History: Reports: Hx Abdominal Surgery - Gallstones removal, Hx Orthopedic Surgery - Fluid drained from right foot, Hx Vascular Surgery - Port placement. Denies: Hx Cholecystectomy - Immunizations Immunizations up to date: Yes Hx Diphtheria, Pertussis, Tetanus Vaccination: Yes Physical Exam - Vital signs Vitals: Temp Pulse Resp BP Pulse Ox 98.1 F 98 18 116/79 95 03/27/17 12:24 03/27/17 12:24 03/27/17 12:24 03/27/17 12:24 03/27/17 12:24 Course - Vital Signs Vital signs: Temp Pulse Resp BP Pulse Ox 98.1 F 98 18 116/79 95 03/27/17 12:24 03/27/17 12:24 03/27/17 12:24 03/27/17 12:24 03/27/17 12:24
[2017-03-27] MEDS ORDERED: HYDROMORPHONE HCL INJ/PF 2 MG/ML AMPULE IV ONE ×3 (13:31→16:59)
[2017-03-27] MEDS ORDERED: DIPHENHYDRAMINE HCL 50 MG/ML VIAL IV ONE (13:31)
[2017-03-27] MEDS ORDERED: ONDANSETRON HCL INJ/PF 4 MG/2 ML SDV IV ONE (14:16)
--- NOTE | 2017-03-27 14:16 | ER Document Report ---
ED General Pain - General Chief Complaint: Sickle Cell Crisis Stated Complaint: PAIN IN LOWER BACK Time Seen by Provider: 03/27/17 12:53 Mode of Arrival: Ambulatory Information source: Patient TRAVEL OUTSIDE OF THE [place] IN LAST 30 DAYS: No - HPI Patient complains to provider of: Sickle cell pain, low back pain Onset: Other - 5 days Onset/Duration: Gradual, Persistent Quality of pain: Achy Severity: Moderate Pain Level: 4 Exacerbated by: Denies Relieved by: Denies Similar symptoms previously: Yes Recently seen / treated by doctor: Yes Notes: Patient is a 21-year-old male with a history of sickle cell disease, who presents to the emergency room complaining of 5 day history of low back pain which is typical of this painful crises in the past, he reports a temperature of 100.3 yesterday evening, denies cough, cold or congestion, he reports some nausea but no vomiting or diarrhea, no injury or trauma, he saw his [employer] attendant 5 days ago, he is currently taking OxyContin 15 mg as needed for pain, however this has not touched his pain and was advised by his [employer] attendant to come to the emergency room for further evaluation and treatment - Related Data Allergies/Adverse Reactions: Coconut * [Coconut] Allergy (Mild, Verified 03/27/17 12:23) transpore tape Allergy (Mild, Uncoded 03/27/17 12:23) Hives Home Medications: Current Home Medications Oxycodone HCl [Oxy-Ir 5 mg Tablet] 15 mg PO Q4 03/27/17 [History] Past Medical History - General Information source: Patient - Social History Smoking Status: Never Smoker Frequency of alcohol use: Rare Drug Abuse: None Family History: Arthritis, DM, Hypertension, Other - Sickle cell trait both parents and asthma Pulmonary Medical History: Reports: Hx Asthma, Hx Pneumonia Renal/ Medical History: Denies: Hx Peritoneal Dialysis Psychiatric Medical History: Denies: Hx Depression Past Surgical History: Reports: Hx Abdominal Surgery - Gallstones removal, Hx Orthopedic Surgery - Fluid drained from right foot, Hx Vascular Surgery - Port placement. Denies: Hx Cholecystectomy - Immunizations Immunizations up to date: Yes Hx Diphtheria, Pertussis, Tetanus Vaccination: Yes Hx Pneumococcal Vaccination: 01/15/13 Review of Systems - Review of Systems Constitutional: No symptoms reported EENT: No symptoms reported Cardiovascular: No symptoms reported Respiratory: No symptoms reported Gastrointestinal: No symptoms reported Genitourinary: No symptoms reported Male Genitourinary: No symptoms reported Musculoskeletal: Back pain Skin: No symptoms reported Hematologic/Lymphatic: No symptoms reported Neurological/Psychological: No symptoms reported -: Yes All other systems reviewed and negative Physical Exam - Vital signs Vitals: Temp Pulse Resp BP Pulse Ox 98.1 F 98 18 116/79 95 03/27/17 12:24 03/27/17 12:24 03/27/17 12:24 03/27/17 12:24 03/27/17 12:24 Interpretation: Normal - General General appearance: Appears well, Alert - HEENT Head: Normocephalic, Atraumatic Eyes: Normal Pupils: PERRL - Respiratory Respiratory status: No respiratory distress Chest status: Nontender Breath sounds: Normal Chest palpation: Normal - Cardiovascular Rhythm: Regular Heart sounds: Normal auscultation Murmur: No - Abdominal Inspection: Normal Distension: No distension Bowel sounds: Normal Tenderness: Nontender Organomegaly: No organomegaly - Back Back: Normal, Nontender - Extremities General upper extremity: Normal inspection, Nontender, Normal color, Normal ROM , Normal temperature General lower extremity: Normal inspection, Nontender, Normal color, Normal ROM , Normal temperature, Normal weight bearing. No: Jeannine's sign - Neurological Neuro grossly intact: Yes Cognition: Normal Orientation: AAOx4 Dorena Coma Scale Eye Opening: Spontaneous Dorena Coma Scale Verbal: Oriented Rodo Coma Scale Motor: Obeys Commands Dorena Coma Scale Total: 15 Speech: Normal Motor strength normal: LUE, RUE, LLE, RLE Sensory: Normal - Psychological Associated symptoms: Normal affect, Normal mood - Skin Skin Temperature: Warm Skin Moisture: Dry Skin Color: Normal Course - Re-evaluation Re-evalutation: 03/27/17 17:52 Patient continues to have low back pain despite 3 rounds of pain medications and IV fluids, he is noted to have a slight urinary tract infection which he was given antibiotics for, since he continues to have pain with evidence of sickle cell crisis patient was discussed with his primary care provider who agrees to admit for further evaluation and treatment - Vital Signs Vital signs: Temp Pulse Resp BP Pulse Ox 98.1 F 98 18 116/79 95 03/27/17 12:24 03/27/17 12:24 03/27/17 12:24 03/27/17 12:24 03/27/17 12:24 - Laboratory Result Diagrams: 03/27/17 14:25 03/27/17 14:25 Laboratory results interpreted by me: 03/27/17 03/27/17 03/27/17 14:25 14:25 14:35 RBC 2.60 L Hgb 10.4 L Hct 29.4 L MCV 113 H MCH 39.9 H RDW 22.8 H Seg Neuts % (Manual) 82 H Lymphocytes % (Manual) 11 L Retic Count (auto) 7.00 H Absolute Retic 0.182 H Total Bilirubin 3.9 H Total Protein 9.0 H Urine Protein 100 H Urine Blood SMALL H Urine Urobilinogen 4.0 H Ur Leukocyte Esterase MODERATE H Discharge - Discharge Clinical Impression: Hb-SS disease with crisis UTI (urinary tract infection) Qualifiers: Urinary tract infection type: site unspecified Hematuria presence: without hematuria Qualified Code(s): N39.0 - Urinary tract infection, site not specified Condition: Fair Disposition: ADMITTED INPATIENT Admitting Provider: Maximino Unit Admitted: Telemetry Referrals: ANDREW WILLIS MD [Primary Care Provider] - Follow up as needed
[2017-03-27] MEDS: NORMAL SALINE 1000 ML 1,000 ML IV PRN ×3 (14:31→21:53)
[2017-03-27 14:51] LABS: HEMATOCRIT 29.4 % (37.9-51.0); HEMOGLOBIN 10.4 g/dL (13.5-17.0); HGB HCT DIFFERENCE 1.8; MEAN CORPUSCULAR HEMOGLOBIN 39.9 pg (27.0-33.4); MEAN CORPUSCULAR HGB CONC 35.3 g/dL (32.0-36.0); MEAN CORPUSCULAR VOLUME 113 fl (80-97); RED CELL DISTRIBUTION WIDTH 22.8 % (11.5-14.0); WHITE BLOOD COUNT 6.9 10^3/uL (4.0-10.5)
[2017-03-27 14:55] LABS: ALBUMIN 4.7 g/dL (3.5-5.0); ANION GAP 11 (5-19); BLOOD UREA NITROGEN 12 mg/dL (7-20); CARBON DIOXIDE 26 mmol/L (22-30); CHLORIDE 103 mmol/L (98-107); CREATININE RESULT 0.72 mg/dL (0.52-1.25); GLUCOSE 93 mg/dL (75-110); SODIUM 139.9 mmol/L (137-145)
[2017-03-27 14:57] LABS: ALANINE AMINOTRANSFERASE 33 U/L (21-72); ALKALINE PHOSPHATASE 119 U/L (38-126); ASPARTATE AMINO TRANSFERASE 56 U/L (17-59); BILIRUBIN,TOTAL 3.9 mg/dL (0.2-1.3); CALCIUM 9.2 mg/dL (8.4-10.2)
[2017-03-27 15:04] LABS: APPEARANCE,URINE SLIGHTLY-CLOUDY; BILIRUBIN,URINE NEGATIVE (NEGATIVE); GLUCOSE, URINE NEGATIVE (NEGATIVE); KETONES,URINE NEGATIVE (NEGATIVE); LEUKOCYTE ESTERASE,URINE MODERATE (NEGATIVE); NITRITE,URINE NEGATIVE (NEGATIVE); PROTEIN,URINE 100 mg/dL (NEGATIVE); URINE SPECIFIC GRAVITY 1.013
[2017-03-27 15:23] LABS: ANISOCYTOSIS 3+; BASOPHILS % (MANUAL) 1 % (0-2); EOSINOPHILS % (MANUAL) 0 % (0-6); HOWELL-JOLLY BODIES PRESENT; LYMPHOCYTES % (MANUAL) 11 % (13-45); NUCLEATED RED BLOOD CELLS 17 /100 WBC (0); OVALOCYTES 1+; POIKILOCYTOSIS 2+; POLYCHROMASIA 2+; SCHISTOCYTES SLIGHT; TARGET CELLS 1+; TOTAL CELLS COUNTED 100
[2017-03-27] MEDS ORDERED: NORMAL SALINE 1000 ML 1,000 ML IV PRN ×2 (15:32→16:59)
[2017-03-27] MEDS ORDERED: CEPHALEXIN 500 MG CAPSULE PO ONE (17:15)
[2017-03-27] MEDS ORDERED: IBUPROFEN 800 MG TABLET PO PRN (20:34)
[2017-03-27] MEDS ORDERED: ONDANSETRON 4 MG TAB.RAPDIS PO PRN (20:34)
[2017-03-27] MEDS ORDERED: ALBUTEROL SULFATE HFA (90 MCG/PUFF) 8 GM MDI (1 MDI/ER DISP) IH PRN (20:34)
[2017-03-27] MEDS ORDERED: ACETAMINOPHEN 325 MG TABLET PO PRN (20:38)
[2017-03-27] MEDS ORDERED: ALBUTEROL SULFATE HFA (90 MCG/PUFF) 200 PUFF/8.5 GM MDI IH PRN (20:46)
--- NOTE | 2017-03-27 20:52 | PDOC H&P ---
History of Present Illness Admission Date/PCP: 03/27/17 19:14 ANDREW WILLIS Patient complains of: Back pain, Fever History of Present Illness: MARINO POZO is a 21 year old male known to my practice who presented to the ED with complaints including progressively worse back pain for couple of days, episode of fever with temperature of 100.3F today. Patient reported that his back pain has been ongoing for about 5 days and he has been in contact with his dye line operator Dr Carlos for management of his sickle cell disease with frequent hemolytic and pain crises. Due to failure of outpatient management of his pain he was instructed to present to the Ed for further evaluation. Patient reported associated nausea but no vomiting. No chest pain or difficulty with breathing. He denied any headache or dizziness. No dysuria or hematuria. His initial evaluation n the ED was remarkable for indices suggestive of hemolytic and pain pain crises and abnormal urinalysis suggestive of possible ongoing infection.. Past Medical History Pulmonary Medical History: Reports: Asthma, Pneumonia Psychiatric Medical History: Denies: Depression Hematology: Reports: Anemia, Sickle Cell Disease, Bleeding Tendencies Past Surgical History Past Surgical History: Reports: Orthopedic Surgery - Fluid drained from right foot, Vascular Surgery - Port placement Denies: Cholecystectomy Social History Smoking Status: Never Smoker Frequency of Alcohol Use: None Hx Recreational Drug Use: No Drugs: None Hx Prescription Drug Abuse: No Family History Family History: Arthritis, DM, Hypertension, Other - Sickle cell trait both parents and asthma Parental Family History Reviewed: Yes Children Family History Reviewed: Yes Sibling(s) Family History Reviewed.: Yes Medication/Allergy Home Medications: Albuterol Sulfate [Proair HFA] 2 puff IH Q4HP PRN 02/01/17 Fentanyl [Duragesic 100 Mcg/Hr Transdermal Patch] 1 patch TD Q3D 02/01/17 Fluticasone/Salmeterol [Advair HFA 115-21 mcg Inhaler] 1 puff IH DAILY 02/01/17 Folic Acid [Folvite 1 mg Tablet] 1 mg PO DAILY 02/01/17 Hydroxyurea [Hydrea 500 mg Capsule] 1,000 mg PO SUTUTHSA 02/01/17 Hydroxyurea [Hydrea 500 mg Capsule] 1,500 mg PO MOWEFR 02/01/17 Ibuprofen [Motrin 800 mg Tablet] 800 mg PO Q6HP PRN 02/01/17 Ondansetron [Zofran Odt 4 mg Tablet] 4 mg PO Q6HP PRN 02/01/17 Oxycodone HCl [Oxy-Ir 5 mg Tablet] 15 mg PO Q4 03/27/17 Allergies/Adverse Reactions: Coconut * [Coconut] Allergy (Mild, Verified 03/27/17 12:23) transpore tape Allergy (Mild, Uncoded 03/27/17 12:23) Hives Review of Systems Constitutional: PRESENT: fever(s). ABSENT: as per HPI, anorexia, chills, fatigue, headache(s), night sweats, weakness, weight gain, weight loss, other Eyes: ABSENT: visual disturbances Ears: ABSENT: hearing changes Nose, Mouth, and Throat: ABSENT: as per HPI, headache(s), mouth pain, sore throat, vertigo, other Cardiovascular: ABSENT: chest pain, dyspnea on exertion, edema, orthropnea, palpitations Respiratory: ABSENT: cough, hemoptysis Gastrointestinal: PRESENT: nausea. ABSENT: as per HPI, abdominal pain, bloating , coffee ground emesis, constipation, diarrhea, dysphagia, heartburn, hematemesis, hematochezia, melena, vomiting, other Genitourinary: ABSENT: dysuria, hematuria Musculoskeletal: PRESENT: back pain. ABSENT: as per HPI, deformity, joint swelling, muscle weakness, other Integumentary: ABSENT: rash, wounds Neurological: ABSENT: abnormal gait, abnormal speech, confusion, dizziness, focal weakness, syncope Psychiatric: ABSENT: anxiety, depression, homidical ideation, suicidal ideation Endocrine: ABSENT: cold intolerance, heat intolerance, menstrual abnormalities, polydipsia, polyuria Hematologic/Lymphatic: ABSENT: easy bleeding, easy bruising, lymphadenopathy Allergic/Immunologic: ABSENT: seasonal rhinorrhea Physical Exam Vital Signs: Temp Pulse Resp BP Pulse Ox 98.2 F 87 16 122/74 94 03/27/17 20:13 03/27/17 20:13 03/27/17 20:13 03/27/17 20:13 03/27/17 20:13 Intake & Output 03/26/17 03/27/17 03/28/17 06:59 06:59 06:59 Weight 62.1 kg General appearance: PRESENT: cooperative, severe distress - from back pain Head exam: PRESENT: atraumatic, normocephalic Eye exam: PRESENT: conjunctiva pink, EOMI, PERRLA. ABSENT: scleral icterus Ear exam: PRESENT: normal external ear exam Mouth exam: PRESENT: moist, tongue midline Teeth exam: ABSENT: dental caries, dental tenderness, edentulous, poor dentation , other Throat exam: ABSENT: post pharyngeal erythema, tonsillar erythema, tonsillar exudate, tonsillogmegaly, other Neck exam: PRESENT: full ROM. ABSENT: carotid bruit, JVD, lymphadenopathy, thyromegaly Respiratory exam: PRESENT: clear to auscultation ethan Cardiovascular exam: PRESENT: RRR. ABSENT: diastolic murmur, rubs, systolic murmur Pulses: PRESENT: normal dorsalis pedis pul, +2 pedal pulses bilateral Vascular exam: PRESENT: normal capillary refill GI/Abdominal exam: PRESENT: normal bowel sounds, soft. ABSENT: distended, guarding, mass, organolmegaly, rebound, tenderness Rectal exam: PRESENT: deferred Gentrourinary exam: ABSENT: indwelling catheter Extremities exam: ABSENT: pedal edema Musculoskeletal exam: PRESENT: normal inspection Neurological exam: PRESENT: alert, awake, oriented to person, oriented to place , oriented to time, oriented to situation, CN II-XII grossly intact. ABSENT: motor sensory deficit Psychiatric exam: PRESENT: appropriate affect, normal mood. ABSENT: homicidal ideation, suicidal ideation Skin exam: PRESENT: dry, intact, warm. ABSENT: cyanosis, rash Results Laboratory Results: I reviewed his lab results on [employer] and these formed significant part of my medical decision making. Assessment & Plan - Diagnosis (1) Sickle cell disease with crisis Is this a current diagnosis for this admission?: YesPlan: See admitting physician orders. (2) UTI (urinary tract infection) Qualifiers: Urinary tract infection type: site unspecified Hematuria presence: without hematuria Qualified Code(s): N39.0 - Urinary tract infection, site not specified Is this a current diagnosis for this admission?: YesPlan: See admitting physician orders. (3) Asthma Qualifiers: Asthma severity: mild intermittent Asthma complication type: uncomplicated Qualified Code(s): J45.20 - Mild intermittent asthma, uncomplicated Is this a current diagnosis for this admission?: YesPlan: See admitting physician orders. - Time Time Spent: 50 to 70 Minutes Medications reviewed and adjusted accordingly: Yes Anticipated discharge: Home Within: Other - Inpatient Certification Based on my medical assessment, after consideration of the patient's comorbidities, presenting symptoms, or acuity I expect that the services needed warrant INPATIENT care.: Yes I certify that my determination is in accordance with my understanding of Medicare's requirements for reasonable and necessary INPATIENT services [42 CFR 412.3e].: Yes Medical Necessity: Need Close Monitoring Due to Risk of Patient Decompensation, Need For IV Fluids, Need For Continuous Telemetry Monitoring, Need for Pain Control, Need for IV Antibiotics, Risk of Complication if Not Cared For in Hospital 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
[2017-03-27] MEDS ORDERED: ENOXAPARIN SODIUM INJ 40 MG/0.4 ML DISP.SYRIN SUBCUT ONE (21:30)
[2017-03-27] MEDS: CEFTRIAXONE 1 GM/D5W RTU 1 GM/50 ML RTUPB IV SCH (21:52)
[2017-03-27] MEDS: HYDROMORPHONE HCL INJ/PF 2 MG/ML AMPULE IV PRN (21:52)
[2017-03-28] MEDS ORDERED: HYDROXYUREA 500 MG CAPSULE PO SCH
[2017-03-28] MEDS: HYDROMORPHONE HCL INJ/PF 2 MG/ML AMPULE IV PRN ×8 (00:50→23:39)
[2017-03-28] MEDS: LANSOPRAZOLE 30 MG TAB.RAP.DR PO SCH (06:03)
[2017-03-28 06:29] LABS: ALANINE AMINOTRANSFERASE 31 U/L (21-72); ALBUMIN 3.5 g/dL (3.5-5.0); ALKALINE PHOSPHATASE 88 U/L (38-126); ANION GAP 9 (5-19); ASPARTATE AMINO TRANSFERASE 47 U/L (17-59); BILIRUBIN,DIRECT 0.3 mg/dL (0.0-0.4); BILIRUBIN,TOTAL 2.9 mg/dL (0.2-1.3); BLOOD UREA NITROGEN 8 mg/dL (7-20); CALCIUM 8.1 mg/dL (8.4-10.2); CARBON DIOXIDE 28 mmol/L (22-30); CHLORIDE 107 mmol/L (98-107); CREATININE RESULT 0.68 mg/dL (0.52-1.25); GLUCOSE 106 mg/dL (75-110); POTASSIUM 4.4 mmol/L (3.6-5.0); SODIUM 143.5 mmol/L (137-145); TOTAL PROTEIN 6.9 g/dL (6.3-8.2)
[2017-03-28 06:41] LABS: HEMATOCRIT 23.6 % (37.9-51.0); HEMOGLOBIN 8.4 g/dL (13.5-17.0); HGB HCT DIFFERENCE 1.6; MEAN CORPUSCULAR HEMOGLOBIN 40.7 pg (27.0-33.4); MEAN CORPUSCULAR HGB CONC 35.5 g/dL (32.0-36.0); MEAN CORPUSCULAR VOLUME 115 fl (80-97); RED BLOOD COUNT 2.06 10^6/uL (4.35-5.55); RED CELL DISTRIBUTION WIDTH 22.3 % (11.5-14.0); WHITE BLOOD COUNT 5.1 10^3/uL (4.0-10.5)
[2017-03-28 06:56] LABS: BAND NEUTROPHILS % (MANUAL) 1 % (3-5); BASOPHILS % (MANUAL) 0 % (0-2); EOSINOPHILS % (MANUAL) 4 % (0-6); LYMPHOCYTES % (MANUAL) 54 % (13-45); NUCLEATED RED BLOOD CELLS 5 /100 WBC (0); TOTAL CELLS COUNTED 100
[2017-03-28 06:59] LABS: ANISOCYTOSIS 3+; POLYCHROMASIA SLIGHT; TOXIC GRANULATION 1+
[2017-03-28 07:00] LABS: OVALOCYTES 1+; POIKILOCYTOSIS 1+; SCHISTOCYTES SLIGHT; TARGET CELLS SLIGHT; TEAR DROP CELLS SLIGHT
[2017-03-28] MEDS: HYDROXYUREA 500 MG CAPSULE PO SCH (09:51)
[2017-03-28] MEDS: FOLIC ACID 1 MG TABLET PO SCH (09:51)
[2017-03-28] MEDS ORDERED: FLUTICASONE IH SCH (10:00)
[2017-03-28] MEDS ORDERED: SALMETEROL IH SCH (10:00)
--- NOTE | 2017-03-28 19:14 | PDOC PROGRESS REPORT ---
Subjective Progress Note for:: 03/28/17 Subjective:: Continue back pain. Remain on IV fluid and IV Dilaudid for pain management. No fever, chills, nausea, or vomiting. No abdominal pain. Awaiting urine culture findings. Remain on IV Rocephin coverage. Physical Exam Vital Signs: Temp Pulse Resp BP Pulse Ox 98.1 F 89 14 125/72 97 03/28/17 15:00 03/28/17 15:00 03/28/17 15:00 03/28/17 15:00 03/28/17 15:00 Intake & Output 03/27/17 03/28/17 03/29/17 06:59 06:59 06:59 Intake Total 3150 2773 Output Total 1999 3500 Balance 1150 -727 Weight 62 kg General appearance: PRESENT: no acute distress, well-developed, well-nourished Head exam: PRESENT: atraumatic, normocephalic Respiratory exam: PRESENT: clear to auscultation ethan Cardiovascular exam: PRESENT: RRR. ABSENT: diastolic murmur, rubs, systolic murmur GI/Abdominal exam: PRESENT: normal bowel sounds, soft. ABSENT: distended, guarding, mass, organolmegaly, rebound, tenderness Extremities exam: ABSENT: pedal edema Musculoskeletal exam: PRESENT: normal inspection, tenderness - low back pain with paraspinal muscle spasm to palpation Neurological exam: PRESENT: alert, awake, oriented to person, oriented to place , oriented to time, oriented to situation, CN II-XII grossly intact. ABSENT: motor sensory deficit Psychiatric exam: PRESENT: appropriate affect, normal mood. ABSENT: homicidal ideation, suicidal ideation Results Laboratory Results: 03/28/17 06:00 03/28/17 06:00 03/28/17 03/28/17 06:00 06:00 WBC 5.1 RBC 2.06 L Hgb 8.4 L Hct 23.6 L MCV 115 H MCH 40.7 H MCHC 35.5 RDW 22.3 H Plt Count 137 L Seg Neutrophils % Not Reportable Lymphocytes % Not Reportable Monocytes % Not Reportable Eosinophils % Not Reportable Basophils % Not Reportable Absolute Neutrophils Not Reportable Absolute Lymphocytes Not Reportable Absolute Monocytes Not Reportable Absolute Eosinophils Not Reportable Absolute Basophils Not Reportable Sodium 143.5 Potassium 4.4 Chloride 107 Carbon Dioxide 28 Anion Gap 9 BUN 8 Creatinine 0.68 Est GFR ( Amer) > 60 Est GFR (Non-Af Amer) > 60 Glucose 106 Calcium 8.1 L Total Bilirubin 2.9 H AST 47 ALT 31 Alkaline Phosphatase 88 Total Protein 6.9 Albumin 3.5 Assessment & Plan - Diagnosis (1) Sickle cell disease with crisis Is this a current diagnosis for this admission?: YesPlan: Continue current IV hydration and pain management. (2) UTI (urinary tract infection) Qualifiers: Urinary tract infection type: site unspecified Hematuria presence: without hematuria Qualified Code(s): N39.0 - Urinary tract infection, site not specified Is this a current diagnosis for this admission?: YesPlan: Maintain on IV Rocephin coverage. Follow up on urine culture findings. (3) Asthma Qualifiers: Asthma severity: mild intermittent Asthma complication type: uncomplicated Qualified Code(s): J45.20 - Mild intermittent asthma, uncomplicated Is this a current diagnosis for this admission?: YesPlan: Continue current bronchodilator management on prn basis. (4) Sickle cell anemia Qualifiers: Sickle-cell associated disorders: with unspecified crisis Qualified Code(s): D57.00 - Hb-SS disease with crisis, unspecified; D57.0 - Hb-SS disease with crisis Is this a current diagnosis for this admission?: YesPlan: See attending physician orders. - Time Time Spent with patient: 25-34 minutes Medications reviewed and adjusted accordingly: Yes Anticipated discharge: Other Within: Other - Inpatient Certification Based on my medical assessment, after consideration of the patient's comorbidities, presenting symptoms, or acuity I expect that the services needed warrant INPATIENT care.: Yes I certify that my determination is in accordance with my understanding of Medicare's requirements for reasonable and necessary INPATIENT services [42 CFR 412.3e].: Yes Medical Necessity: Need Close Monitoring Due to Risk of Patient Decompensation, Need For IV Fluids, Need For Continuous Telemetry Monitoring, Need for IV Antibiotics, Risk of Complication if Not Cared For in Hospital 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
[2017-03-28] MEDS: ENOXAPARIN SODIUM INJ 40 MG/0.4 ML DISP.SYRIN SUBCUT SCH (19:30)
[2017-03-28] MEDS: CEFTRIAXONE 1 GM/D5W RTU 1 GM/50 ML RTUPB IV SCH (23:07)
[2017-03-29] MEDS: HYDROMORPHONE HCL INJ/PF 2 MG/ML AMPULE IV PRN ×3 (03:19→12:28)
[2017-03-29] MEDS: LANSOPRAZOLE 30 MG TAB.RAP.DR PO SCH (05:29)
[2017-03-29 07:41] LABS: HEMATOCRIT 26.3 % (37.9-51.0); HEMOGLOBIN 9.4 g/dL (13.5-17.0); HGB HCT DIFFERENCE 1.9; MEAN CORPUSCULAR HEMOGLOBIN 41.5 pg (27.0-33.4); MEAN CORPUSCULAR HGB CONC 35.7 g/dL (32.0-36.0); MEAN CORPUSCULAR VOLUME 116 fl (80-97); RED BLOOD COUNT 2.26 10^6/uL (4.35-5.55); RED CELL DISTRIBUTION WIDTH 22.4 % (11.5-14.0); WHITE BLOOD COUNT 4.4 10^3/uL (4.0-10.5)
[2017-03-29 08:23] LABS: BASOPHILS % (MANUAL) 0 % (0-2); EOSINOPHILS % (MANUAL) 4 % (0-6); LYMPHOCYTES % (MANUAL) 43 % (13-45); NUCLEATED RED BLOOD CELLS 25 /100 WBC (0); TOTAL CELLS COUNTED 100
[2017-03-29 08:28] LABS: OVALOCYTES 2+; POIKILOCYTOSIS 3+; POLYCHROMASIA 2+; SCHISTOCYTES SLIGHT
[2017-03-29] MEDS ORDERED: HYDROXYUREA 500 MG CAPSULE PO SCH (10:00)
[2017-03-29] MEDS: FOLIC ACID 1 MG TABLET PO SCH (10:45)
[2017-03-29] MEDS: ENOXAPARIN SODIUM INJ 40 MG/0.4 ML DISP.SYRIN SUBCUT SCH (10:46)
[2017-03-29] MEDS: NORMAL SALINE 1000 ML 1,000 ML IV PRN ×2 (12:26→21:18)
[2017-03-29] MEDS ORDERED: FENTANYL 100 MCG/HR PATCH.TD72 TD SCH (15:00)
[2017-03-29] MEDS: OXYCODONE HCL IR 5 MG TABLET PO SCH ×3 (16:34→23:18)
[2017-03-29] MEDS: CEFTRIAXONE 1 GM/D5W RTU 1 GM/50 ML RTUPB IV SCH (21:18)
[2017-03-30] MEDS: OXYCODONE HCL IR 5 MG TABLET PO SCH ×3 (04:52→11:59)
[2017-03-30] MEDS: LANSOPRAZOLE 30 MG TAB.RAP.DR PO SCH (05:00)
[2017-03-30 05:34] LABS: HEMATOCRIT 24.8 % (37.9-51.0); HEMOGLOBIN 8.9 g/dL (13.5-17.0); HGB HCT DIFFERENCE 1.9; MEAN CORPUSCULAR HEMOGLOBIN 42.3 pg (27.0-33.4); MEAN CORPUSCULAR HGB CONC 35.8 g/dL (32.0-36.0); MEAN CORPUSCULAR VOLUME 118 fl (80-97); RED CELL DISTRIBUTION WIDTH 22.8 % (11.5-14.0)
[2017-03-30 05:48] LABS: BASOPHILS % (MANUAL) 1 % (0-2); EOSINOPHILS % (MANUAL) 6 % (0-6); LYMPHOCYTES % (MANUAL) 49 % (13-45); NUCLEATED RED BLOOD CELLS 48 /100 WBC (0); TOTAL CELLS COUNTED 100
[2017-03-30 05:51] LABS: ANISOCYTOSIS 3+; POIKILOCYTOSIS 1+; POLYCHROMASIA 1+
[2017-03-30 05:52] LABS: HOWELL-JOLLY BODIES PRESENT; OVALOCYTES SLIGHT; TARGET CELLS 1+
[2017-03-30 05:54] LABS: WHITE BLOOD COUNT 5.4 10^3/uL (4.0-10.5)
[2017-03-30] MEDS: HYDROXYUREA 500 MG CAPSULE PO SCH (09:32)
[2017-03-30] MEDS: ENOXAPARIN SODIUM INJ 40 MG/0.4 ML DISP.SYRIN SUBCUT SCH (09:32)
[2017-03-30] MEDS: FOLIC ACID 1 MG TABLET PO SCH (09:32)
--- NOTE | 2017-03-30 10:50 | PDOC PROGRESS REPORT ---
Subjective Progress Note for:: 03/29/17 Subjective:: Continue back pain. Remain on IV fluid and IV Dilaudid for pain management. No fever, chills, nausea, or vomiting. No abdominal pain. Awaiting urine culture findings. Remain on IV Rocephin coverage. Physical Exam Vital Signs: Temp Pulse Resp BP Pulse Ox 98.1 F 102 H 16 122/92 H 99 03/30/17 07:26 03/30/17 07:26 03/30/17 07:26 03/30/17 07:26 03/30/17 07:26 Intake & Output 03/29/17 03/30/17 03/31/17 06:59 06:59 06:59 Intake Total 6148 5975 Output Total 6500 4020 Balance -352 1955 Weight 62 kg 62.3 kg Physical Exam: General appearance: PRESENT: no acute distress, well-developed, well-nourished Head exam: PRESENT: atraumatic, normocephalic Respiratory exam: PRESENT: clear to auscultation ethan Cardiovascular exam: PRESENT: RRR. ABSENT: diastolic murmur, rubs, systolic murmur GI/Abdominal exam: PRESENT: normal bowel sounds, soft. ABSENT: distended, guarding, mass, organomegaly, rebound, tenderness Extremities exam: ABSENT: pedal edema Musculoskeletal exam: PRESENT: normal inspection, tenderness - improving low back pain with paraspinal muscle spasm to palpation Neurological exam: PRESENT: alert, awake, oriented to person, oriented to place , oriented to time, oriented to situation, CN II-XII grossly intact. ABSENT: motor sensory deficit Psychiatric exam: PRESENT: appropriate affect, normal mood. ABSENT: homicidal ideation, suicidal ideation Results Laboratory Results: 03/30/17 04:54 03/28/17 06:00 03/30/17 04:54 WBC 5.4 RBC 2.10 L Hgb 8.9 L Hct 24.8 L MCV 118 H MCH 42.3 H MCHC 35.8 RDW 22.8 H Plt Count 177 Seg Neutrophils % Not Reportable Lymphocytes % Not Reportable Monocytes % Not Reportable Eosinophils % Not Reportable Basophils % Not Reportable Absolute Neutrophils Not Reportable Absolute Lymphocytes Not Reportable Absolute Monocytes Not Reportable Absolute Eosinophils Not Reportable Absolute Basophils Not Reportable Assessment & Plan - Diagnosis (1) Sickle cell disease with crisis Is this a current diagnosis for this admission?: Yes (2) UTI (urinary tract infection) Qualifiers: Urinary tract infection type: site unspecified Hematuria presence: without hematuria Qualified Code(s): N39.0 - Urinary tract infection, site not specified Is this a current diagnosis for this admission?: Yes (3) Asthma Qualifiers: Asthma severity: mild intermittent Asthma complication type: uncomplicated Qualified Code(s): J45.20 - Mild intermittent asthma, uncomplicated Is this a current diagnosis for this admission?: Yes (4) Sickle cell anemia Qualifiers: Sickle-cell associated disorders: with unspecified crisis Qualified Code(s): D57.00 - Hb-SS disease with crisis, unspecified; D57.0 - Hb-SS disease with crisis Is this a current diagnosis for this admission?: Yes - Time Time Spent with patient: 25-34 minutes Medications reviewed and adjusted accordingly: Yes Anticipated discharge: Home Within: Other - Inpatient Certification Based on my medical assessment, after consideration of the patient's comorbidities, presenting symptoms, or acuity I expect that the services needed warrant INPATIENT care.: Yes I certify that my determination is in accordance with my understanding of Medicare's requirements for reasonable and necessary INPATIENT services [42 CFR 412.3e].: Yes Medical Necessity: Need Close Monitoring Due to Risk of Patient Decompensation, Need For IV Fluids, Need for Pain Control, Risk of Complication if Not Cared For in Hospital 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 I will restart on his home pain medication regimen. Maintain on IV Rocephin coverage. Follow up on urine culture findings.
--- NOTE | 2017-03-30 10:56 | PDOC DISCHARGE SUMMARY ---
General - Admit/Disc Date/PCP Admission Date/Primary Care Provider: 03/27/17 17:04 ANDREW WILLIS Discharge Date: 03/30/17 - Discharge Diagnosis (1) Sickle cell disease with crisis Is this a current diagnosis for this admission?: Yes (2) UTI (urinary tract infection) Is this a current diagnosis for this admission?: Yes (3) Asthma Is this a current diagnosis for this admission?: Yes (4) Sickle cell anemia Is this a current diagnosis for this admission?: Yes - Additional Information Discharge Diet: Regular Discharge Activity: Activity As Tolerated Home Medications: Albuterol Sulfate [Proair HFA] 2 puff IH Q4HP PRN 02/01/17 Fentanyl [Duragesic 100 Mcg/Hr Transdermal Patch] 1 patch TD Q3D 02/01/17 Fluticasone/Salmeterol [Advair HFA 115-21 mcg Inhaler] 1 puff IH DAILY 02/01/17 Folic Acid [Folvite 1 mg Tablet] 1 mg PO DAILY 02/01/17 Hydroxyurea [Hydrea 500 mg Capsule] 1,000 mg PO SUTUTHSA 02/01/17 Hydroxyurea [Hydrea 500 mg Capsule] 1,500 mg PO MOWEFR 02/01/17 Ibuprofen [Motrin 800 mg Tablet] 800 mg PO Q6HP PRN 02/01/17 Ondansetron [Zofran Odt 4 mg Tablet] 4 mg PO Q6HP PRN 02/01/17 Oxycodone HCl [Oxy-Ir 5 mg Tablet] 15 mg PO Q4 03/27/17 History of Present Illness History of Present Illness: MARINO POZO is a 21 year old male known to my practice who presented to the ED with complaints including progressively worse back pain for couple of days, episode of fever with temperature of 100.3F today. Patient reported that his back pain has been ongoing for about 5 days and he has been in contact with his cracking unit operator Dr Carlos for management of his sickle cell disease with frequent hemolytic and pain crises. Due to failure of outpatient management of his pain he was instructed to present to the Ed for further evaluation. Patient reported associated nausea but no vomiting. No chest pain or difficulty with breathing. He denied any headache or dizziness. No dysuria or hematuria. His initial evaluation n the ED was remarkable for indices suggestive of hemolytic and pain pain crises and abnormal urinalysis suggestive of possible ongoing infection.. Hospital Course Hospital Course: Patient reported to IV fluid hydration and pain management. He was managed empirically for possible UTI with IV Rocephin coverage. His urine culture was no growth x 2 days. He had total 3 days of IV Rocephin therapy. Patient have been on his preadmission pain medication management over last 24 hours and pain have been satisfactorily controlled. He will be discharge home today and follow up in the office as instructed upon discharge and instructed to nabeel Dr. Carlos office for follow up appointment with his cracking unit operator. Physical Exam Vital Signs: Temp Pulse Resp BP Pulse Ox 98.1 F 102 H 16 122/92 H 99 03/30/17 07:26 03/30/17 07:26 03/30/17 07:26 03/30/17 07:26 03/30/17 07:26 Intake & Output 03/29/17 03/30/17 03/31/17 06:59 06:59 06:59 Intake Total 6148 5975 Output Total 6500 4020 Balance -352 1955 Weight 62 kg 62.3 kg Physical Exam: General appearance: PRESENT: no acute distress, well-developed, well-nourished Head exam: PRESENT: atraumatic, normocephalic Respiratory exam: PRESENT: clear to auscultation ethan Cardiovascular exam: PRESENT: RRR. ABSENT: diastolic murmur, rubs, systolic murmur GI/Abdominal exam: PRESENT: normal bowel sounds, soft. ABSENT: distended, guarding, mass, organomegaly, rebound, tenderness Extremities exam: ABSENT: pedal edema Musculoskeletal exam: PRESENT: normal inspection, tenderness - improved low back pain Neurological exam: PRESENT: alert, awake, oriented to person, oriented to place , oriented to time, oriented to situation, CN II-XII grossly intact. ABSENT: motor sensory deficit Psychiatric exam: PRESENT: appropriate affect, normal mood. ABSENT: homicidal ideation, suicidal ideation Results Laboratory Results: 03/30/17 04:54 03/28/17 06:00 03/30/17 04:54 WBC 5.4 RBC 2.10 L Hgb 8.9 L Hct 24.8 L MCV 118 H MCH 42.3 H MCHC 35.8 RDW 22.8 H Plt Count 177 Seg Neutrophils % Not Reportable Lymphocytes % Not Reportable Monocytes % Not Reportable Eosinophils % Not Reportable Basophils % Not Reportable Absolute Neutrophils Not Reportable Absolute Lymphocytes Not Reportable Absolute Monocytes Not Reportable Absolute Eosinophils Not Reportable Absolute Basophils Not Reportable Qualifiers PATEINT BEING DISCHARGED WITH ANY OF THE FOLLOWING DIAGNOSIS?: No Plan Discharge Plan: D/C home today. Follow with post hospitalization care as instructed upon discharge.
[2017-03-30 11:03] VITALS: BP 134/64
== END 2017-03-30 12:21 | disposition home or self-care (01) | DRG 812 ==
LOC: ER 12:16 → 4S 17:04 → UNDOADMIN 19:14 → EH 19:14 → 4S 20:11 → EH 20:11
PROVIDERS: ADMIT Internal Medicine Geriatric Medicine; ATTEND Internal Medicine Geriatric Medicine
DX: D57.00 Hb-SS disease with crisis, unspecified (principal); N39.0 Urinary tract infection, site not specified; J45.20 Mild intermittent asthma, uncomplicated; Z91.018 Allergy to other foods; Z83.3 Family history of diabetes mellitus; Z82.49 Family history of ischemic heart disease and other diseases of the circulatory system; Z82.61 Family history of arthritis; Z90.49 Acquired absence of other specified parts of digestive tract
CPT/HCPCS: 36415; 36591; 80053; 81001; 85025; 85045; 85730; 87086; 96361; 96374; 96375; 96376; 99285; J0696; J1170; J1200; J1650; J2405; J3490; J7030

== ENCOUNTER 2017-04-03 20:51 | Inpatient (IN) | payer MEDICAID ==
[2017-04-03] MEDS ORDERED: NORMAL SALINE 1000 ML 1,000 ML IV ONE ×2 (21:53→21:54)
[2017-04-03] MEDS ORDERED: HYDROMORPHONE HCL INJ/PF 2 MG/ML AMPULE IV ONE ×2 (21:54→23:21)
[2017-04-03] MEDS ORDERED: DIPHENHYDRAMINE HCL 50 MG/ML VIAL IV ONE (21:54)
--- NOTE | 2017-04-03 21:57 | ER Document Report ---
ED General - General Chief Complaint: Sickle Cell Crisis Stated Complaint: BACK AND KNEE PAIN Time Seen by Provider: 04/03/17 21:46 Notes: Patient is a 21-year-old male who comes emergency department for chief complaint of sickle cell crisis. He states that for the past 2 days he has had worsening pains in his lower back and now also in his knees and some in his chest. He denies shortness of breath. He follows with hematology Dr. Carlso. He is taking oxycodone 15 mg TID with minimal relief. He denies fever. TRAVEL OUTSIDE OF THE [place] IN LAST 30 DAYS: No - Related Data Allergies/Adverse Reactions: Coconut * [Coconut] Allergy (Mild, Verified 03/27/17 12:23) transpore tape Allergy (Mild, Uncoded 03/27/17 12:23) Hives Past Medical History - General Information source: Patient - Social History Smoking Status: Never Smoker Frequency of alcohol use: None Drug Abuse: None Lives with: Family Family History: Arthritis, DM, Hypertension, Other - Sickle cell trait both parents and asthma Patient has suicidal ideation: No Patient has homicidal ideation: No Pulmonary Medical History: Reports: Hx Asthma, Hx Pneumonia Renal/ Medical History: Denies: Hx Peritoneal Dialysis Psychiatric Medical History: Denies: Hx Depression Past Surgical History: Reports: Hx Abdominal Surgery - Gallstones removal, Hx Orthopedic Surgery - Fluid drained from right foot, Hx Vascular Surgery - Port placement. Denies: Hx Cholecystectomy - Immunizations Immunizations up to date: Yes Hx Diphtheria, Pertussis, Tetanus Vaccination: Yes Hx Pneumococcal Vaccination: 01/15/13 Review of Systems - Review of Systems Constitutional: See HPI EENT: No symptoms reported Cardiovascular: No symptoms reported Respiratory: No symptoms reported Gastrointestinal: No symptoms reported Genitourinary: No symptoms reported Male Genitourinary: No symptoms reported Musculoskeletal: See HPI Skin: No symptoms reported Hematologic/Lymphatic: No symptoms reported Neurological/Psychological: No symptoms reported Physical Exam - Vital signs Vitals: Temp Pulse Resp BP Pulse Ox 99.2 F 123 H 20 141/89 H 98 04/03/17 21:01 04/03/17 21:01 04/03/17 21:01 04/03/17 21:01 04/03/17 21:01 Interpretation: Normal - General General appearance: Appears well, Alert - HEENT Head: Normocephalic, Atraumatic Eyes: Normal Conjunctiva: Normal Extraocular movements intact: Yes Eyelashes: Normal Pupils: PERRL Nasal: Normal Mouth/Lips: Normal Mucous membranes: Normal Pharynx: Normal Neck: Normal - Respiratory Respiratory status: No respiratory distress Chest status: Nontender Breath sounds: Normal. No: Decreased air movement, Wheezing Chest palpation: Normal - Cardiovascular Rhythm: Regular, Tachycardia Heart sounds: Normal auscultation, S1 appreciated, S2 appreciated Murmur: No - Abdominal Inspection: Normal Distension: No distension Bowel sounds: Normal Tenderness: Nontender Organomegaly: No organomegaly - Back Back: Normal, Nontender. No: Tender, CVA tenderness - Extremities General upper extremity: Normal inspection, Nontender, Normal color, Normal ROM , Normal temperature General lower extremity: Normal inspection, Nontender, Normal color, Normal ROM , Normal temperature, Normal weight bearing. No: Jeannine's sign - Neurological Neuro grossly intact: Yes Cognition: Normal Orientation: AAOx4 Rodo Coma Scale Eye Opening: Spontaneous [place] Coma Scale Verbal: Oriented [place] Coma Scale Motor: Obeys Commands [place] Coma Scale Total: 15 Speech: Normal Cranial nerves: Normal Cerebellar coordination: Normal Motor strength normal: LUE, RUE, LLE, RLE Additional motor exam normals: Equal front desk lead Sensory: Normal - Psychological Associated symptoms: Normal affect, Normal mood - Skin Skin Temperature: Warm Skin Moisture: Dry Skin Color: Normal Course - Re-evaluation Re-evalutation: Chest x-ray shows no concerning abnormalities. No leukocytosis, hemoglobin is not significantly low, however reticulocyte count and bilirubin do indicate cycling. No fever, no hypotension, no signs of distress on examination. 04/03/17 23:49 Patient's tachycardia has improved to about 108, he still has some discomfort after medications, will reevaluate. 04/04/17 Patient still complaining of pain, does not want to go home. He looks clinically significantly improved. Tachycardia resolved. Discussed with Dr. Cohn. 04/04/[address] Willis, pending call back. 04/04/17 02:[address] Willis, patient to be admitted to telemetry. - Vital Signs Vital signs: Temp Pulse Resp BP Pulse Ox 99.2 F 123 H 20 141/89 H 98 04/03/17 21:01 04/03/17 21:01 04/03/17 21:01 04/03/17 21:01 04/03/17 21:01 - Laboratory Result Diagrams: 04/03/17 22:10 04/03/17 22:10 Laboratory results interpreted by me: 04/03/17 04/03/17 04/04/17 22:10 22:10 00:50 WBC 3.9 L RBC 2.64 L Hgb 11.1 L Hct 31.6 L MCV 120 H MCH 42.2 H RDW 26.8 H Retic Count (auto) 9.77 H Absolute Retic 0.258 H Sodium 145.9 H Total Bilirubin 3.1 H Direct Bilirubin 0.6 H AST 73 H Alkaline Phosphatase 172 H Total Protein 10.2 H Albumin 5.2 H Urine Ketones TRACE H Urine Urobilinogen 2.0 H Ur Leukocyte Esterase SMALL H Urine Ascorbic Acid 20 H Discharge - Discharge Clinical Impression: Hb-SS disease with crisis Sickle cell anemia Qualifiers: Sickle-cell associated disorders: with unspecified crisis Qualified Code(s): D57.00 - Hb-SS disease with crisis, unspecified Admitting Provider: Hospitalist Unit Admitted: Telemetry Referrals: ANDREW WILLIS MD [Primary Care Provider] - Follow up as needed
[2017-04-03 22:29] LABS: HEMATOCRIT 31.6 % (37.9-51.0); HEMOGLOBIN 11.1 g/dL (13.5-17.0); HGB HCT DIFFERENCE 1.7; MEAN CORPUSCULAR HEMOGLOBIN 42.2 pg (27.0-33.4); MEAN CORPUSCULAR HGB CONC 35.2 g/dL (32.0-36.0); RED BLOOD COUNT 2.64 10^6/uL (4.35-5.55); RED CELL DISTRIBUTION WIDTH 26.8 % (11.5-14.0)
--- NOTE | 2017-04-03 22:32 | RADIOLOGY REPORT (SQ) ---
EXAM DESCRIPTION: CHEST PA/LAT COMPLETED DATE/TIME: 04/03/2017 10:25 pm REASON FOR STUDY: chest pain COMPARISON: 01/31/2017 EXAM PARAMETERS: NUMBER OF VIEWS: two views TECHNIQUE: Digital Frontal and Lateral radiographic views of the chest acquired. RADIATION DOSE: NA LIMITATIONS: none FINDINGS: LUNGS AND PLEURA: No opacities, masses or pneumothorax. No pleural effusion. MEDIASTINUM AND HILAR STRUCTURES: No masses or contour abnormalities. HEART AND VASCULAR STRUCTURES: Heart normal size. No evidence for failure. BONES: Bony findings of sickle cell. HARDWARE: Venous access catheter at the cavoatrial junction. OTHER: No other significant finding. IMPRESSION: No acute pulmonary disease. TECHNICAL DOCUMENTATION: JOB ID: [id number] [employer]- All Rights Reserved
[2017-04-03 22:44] LABS: ALANINE AMINOTRANSFERASE 31 U/L (21-72); ALBUMIN 5.2 g/dL (3.5-5.0); ALKALINE PHOSPHATASE 172 U/L (38-126); ANION GAP 17 (5-19); ASPARTATE AMINO TRANSFERASE 73 U/L (17-59); BILIRUBIN,DIRECT 0.6 mg/dL (0.0-0.4); BILIRUBIN,TOTAL 3.1 mg/dL (0.2-1.3); BLOOD UREA NITROGEN 14 mg/dL (7-20); CALCIUM 10.1 mg/dL (8.4-10.2); CARBON DIOXIDE 26 mmol/L (22-30); CHLORIDE 103 mmol/L (98-107); CREATININE RESULT 0.78 mg/dL (0.52-1.25); GLUCOSE 105 mg/dL (75-110); POTASSIUM 4.1 mmol/L (3.6-5.0); SODIUM 145.9 mmol/L (137-145); TOTAL PROTEIN 10.2 g/dL (6.3-8.2)
[2017-04-03 22:52] LABS: BASOPHILS % (MANUAL) 0 % (0-2); EOSINOPHILS % (MANUAL) 0 % (0-6); LYMPHOCYTES % (MANUAL) 24 % (13-45); NUCLEATED RED BLOOD CELLS 84 /100 WBC (0); TOTAL CELLS COUNTED 100
[2017-04-03 22:55] LABS: ANISOCYTOSIS 3+; OVALOCYTES SLIGHT; POIKILOCYTOSIS 1+; POLYCHROMASIA SLIGHT; TOXIC GRANULATION 1+
[2017-04-03 22:56] LABS: PLATELET CLUMPS PRESENT; TARGET CELLS 1+
[2017-04-03 22:57] LABS: MEAN CORPUSCULAR VOLUME 120 fl (80-97)
[2017-04-03 23:03] LABS: WHITE BLOOD COUNT 3.9 10^3/uL (4.0-10.5)
[2017-04-03] MEDS ORDERED: ONDANSETRON HCL INJ/PF 4 MG/2 ML SDV IV ONE (23:21)
[2017-04-04] MEDS ORDERED: HYDROMORPHONE HCL INJ/PF 2 MG/ML AMPULE IV ONE (00:35)
[2017-04-04 01:11] LABS: APPEARANCE,URINE CLEAR; BILIRUBIN,URINE NEGATIVE (NEGATIVE); GLUCOSE, URINE NEGATIVE (NEGATIVE); KETONES,URINE TRACE mg/dL (NEGATIVE); LEUKOCYTE ESTERASE,URINE SMALL (NEGATIVE); NITRITE,URINE NEGATIVE (NEGATIVE); PROTEIN,URINE NEGATIVE (NEGATIVE); URINE SPECIFIC GRAVITY 1.009
[2017-04-04] MEDS ORDERED: NORMAL SALINE 1000 ML 1,000 ML IV ONE (02:33)
[2017-04-04] MEDS: NORMAL SALINE 1000 ML 1,000 ML IV PRN ×3 (04:47→23:48)
[2017-04-04] MEDS: HYDROMORPHONE HCL INJ/PF 2 MG/ML AMPULE IV PRN ×7 (04:51→23:03)
[2017-04-04] MEDS: ONDANSETRON HCL INJ/PF 4 MG/2 ML SDV IV PRN ×3 (04:51→20:03)
[2017-04-04 05:46] LABS: HEMATOCRIT 24.6 % (37.9-51.0); HGB HCT DIFFERENCE 1.8; MEAN CORPUSCULAR HGB CONC 35.7 g/dL (32.0-36.0); MEAN CORPUSCULAR VOLUME 121 fl (80-97); RED BLOOD COUNT 2.04 10^6/uL (4.35-5.55); WHITE BLOOD COUNT 4.8 10^3/uL (4.0-10.5)
[2017-04-04 06:03] LABS: BASOPHILS % (MANUAL) 0 % (0-2); EOSINOPHILS % (MANUAL) 1 % (0-6); LYMPHOCYTES % (MANUAL) 45 % (13-45); NUCLEATED RED BLOOD CELLS 32 /100 WBC (0); TOTAL CELLS COUNTED 100
[2017-04-04 06:05] LABS: ANISOCYTOSIS 3+; OVALOCYTES SLIGHT; POIKILOCYTOSIS 1+; POLYCHROMASIA 1+; SCHISTOCYTES SLIGHT; TARGET CELLS SLIGHT; TOXIC GRANULATION SLIGHT
[2017-04-04 06:07] LABS: HEMOGLOBIN 8.8 g/dL (13.5-17.0)
[2017-04-04] MEDS: LANSOPRAZOLE 30 MG TAB.RAP.DR PO SCH (07:33)
--- NOTE | 2017-04-04 08:09 | EKG REPORT ---
SEVERITY:- NORMAL ECG - SINUS RHYTHM : Confirmed by: Howard Min MD 04-Apr-2017 08:08:22
[2017-04-04] MEDS: ENOXAPARIN SODIUM INJ 40 MG/0.4 ML DISP.SYRIN SUBCUT SCH (09:00)
[2017-04-04] MEDS ORDERED: IBUPROFEN 800 MG TABLET PO PRN (09:08)
[2017-04-04] MEDS ORDERED: ALBUTEROL SULFATE HFA (90 MCG/PUFF) 8 GM MDI (1 MDI/ER DISP) IH PRN (09:08)
[2017-04-04] MEDS ORDERED: ALBUTEROL SULFATE HFA (90 MCG/PUFF) 200 PUFF/8.5 GM MDI IH PRN (09:54)
[2017-04-04] MEDS ORDERED: FLUTICASONE IH SCH (10:00)
[2017-04-04] MEDS ORDERED: SALMETEROL IH SCH (10:00)
[2017-04-04] MEDS: FOLIC ACID 1 MG TABLET PO SCH (11:00)
[2017-04-04] MEDS: HYDROXYUREA 500 MG CAPSULE PO SCH (11:01)
--- NOTE | 2017-04-04 11:29 | PDOC H&P ---
History of Present Illness Admission Date/PCP: 04/04/17 05:09 ANDREW WILLIS Patient complains of: Worsening back pain History of Present Illness: MARINO POZO is a 21 year old male known to my practice and recently discharged from this facility after presenting with similar symptoms. Patient return to the ED with complain of worsening back pain over last 2 days. He dose have history of sickle cell disease with frequent crisis. He claimed compliance with his medication and follow up with Dr Terrance blum senior dynamics crm developer. He denied any untoward stress, fever, chills, dysuria, or difficulty with breathing. Patient reported spreading involvement of his knee and chest with ongoing pain. He claimed minimal relief of his pain on his current home pain medication management regimen that include Fentanyl patch 100 mcg / hour q 72 hours, Oxycodone 15 mg p.o tid and Ibuprofen 800 mg p.o tid. Despite initial management in the ED with IV Dilaudid several doses patient reported persistent of pain necessitating admission to the hospital for further evaluation and management. Past Medical History Pulmonary Medical History: Reports: Asthma, Pneumonia Psychiatric Medical History: Denies: Depression Hematology: Reports: Anemia, Sickle Cell Disease, Bleeding Tendencies Past Surgical History Past Surgical History: Reports: Orthopedic Surgery - Fluid drained from right foot, Vascular Surgery - Port placement Denies: Cholecystectomy Social History Lives with: Family Smoking Status: Never Smoker Frequency of Alcohol Use: None Hx Recreational Drug Use: No Drugs: None Hx Prescription Drug Abuse: No - Advance Directive Resuscitation Status: Full Code Family History Family History: Arthritis, DM, Hypertension, Other - Sickle cell trait both parents and asthma Parental Family History Reviewed: Yes Children Family History Reviewed: Yes Sibling(s) Family History Reviewed.: Yes Medication/Allergy Home Medications: Albuterol Sulfate [Proair HFA] 2 puff IH Q4HP PRN 02/01/17 Fentanyl [Duragesic 100 Mcg/Hr Transdermal Patch] 1 patch TD Q3D 02/01/17 Folic Acid [Folvite 1 mg Tablet] 1 mg PO DAILY 02/01/17 Hydroxyurea [Hydrea 500 mg Capsule] 1,000 mg PO SUTUTHSA 02/01/17 Hydroxyurea [Hydrea 500 mg Capsule] 1,500 mg PO MOWEFR 02/01/17 Ibuprofen [Motrin 800 mg Tablet] 800 mg PO Q6HP PRN 06/02/17 Ondansetron [Zofran Odt 4 mg Tablet] 4 mg PO Q6HP PRN 02/01/17 Oxycodone HCl [Oxy-Ir 5 mg Tablet] 15 mg PO Q4 PRN 03/27/17 Naproxen 500 mg PO Q12 04/04/17 Allergies/Adverse Reactions: Coconut * [Coconut] Allergy (Mild, Verified 03/27/17 12:23) transpore tape Allergy (Mild, Uncoded 03/27/17 12:23) Hives Review of Systems Constitutional: ABSENT: chills, fever(s), headache(s), weight gain, weight loss Eyes: ABSENT: visual disturbances Ears: ABSENT: hearing changes Nose, Mouth, and Throat: ABSENT: as per HPI, headache(s), mouth pain, sore throat, vertigo, other Cardiovascular: PRESENT: chest pain - described as achyness. ABSENT: as per HPI , dyspnea on exertion, edema, orthropnea, palpitations, other Respiratory: ABSENT: cough, hemoptysis Gastrointestinal: ABSENT: abdominal pain, constipation, diarrhea, hematemesis, hematochezia, nausea, vomiting Genitourinary: ABSENT: dysuria, hematuria Musculoskeletal: PRESENT: back pain - related to his ongoing pain crisis Integumentary: ABSENT: rash, wounds Neurological: ABSENT: abnormal gait, abnormal speech, confusion, dizziness, focal weakness, syncope Psychiatric: ABSENT: anxiety, depression, homidical ideation, suicidal ideation Endocrine: ABSENT: cold intolerance, heat intolerance, menstrual abnormalities, polydipsia, polyuria Hematologic/Lymphatic: ABSENT: easy bleeding, easy bruising, lymphadenopathy Physical Exam Vital Signs: Temp Pulse Resp BP Pulse Ox 98.3 F 79 14 108/58 L 99 04/04/17 07:06 04/04/17 07:37 04/04/17 07:06 04/04/17 07:06 04/04/17 07:06 Intake & Output 04/03/17 04/04/17 04/05/17 06:59 06:59 06:59 Intake Total 349 Balance 349 General appearance: PRESENT: cooperative, severe distress - from pain Head exam: PRESENT: atraumatic, normocephalic Eye exam: PRESENT: EOMI, PERRLA, scleral icterus - slightly Ear exam: PRESENT: normal external ear exam Mouth exam: PRESENT: moist, tongue midline Throat exam: ABSENT: post pharyngeal erythema, tonsillar erythema, tonsillar exudate, tonsillogmegaly, other Neck exam: PRESENT: full ROM. ABSENT: carotid bruit, JVD, lymphadenopathy, thyromegaly Respiratory exam: PRESENT: clear to auscultation ethan Cardiovascular exam: PRESENT: RRR. ABSENT: diastolic murmur, rubs, systolic murmur Vascular exam: PRESENT: normal capillary refill. ABSENT: pallor GI/Abdominal exam: PRESENT: normal bowel sounds, soft. ABSENT: distended, guarding, mass, organolmegaly, rebound, tenderness Rectal exam: PRESENT: deferred Extremities exam: ABSENT: pedal edema, tenderness Musculoskeletal exam: PRESENT: normal inspection. ABSENT: tenderness Neurological exam: PRESENT: alert, awake, oriented to person, oriented to place , oriented to time, oriented to situation, CN II-XII grossly intact. ABSENT: motor sensory deficit Psychiatric exam: PRESENT: appropriate affect, normal mood. ABSENT: homicidal ideation, suicidal ideation Skin exam: PRESENT: dry, intact, warm. ABSENT: cyanosis, rash Results Impressions: Chest X-Ray 04/03/17 21:53 IMPRESSION: No acute pulmonary disease. Assessment & Plan - Diagnosis (1) Sickle cell disease with crisis Is this a current diagnosis for this admission?: YesPlan: See admitting attending physician orders. (2) Abnormal urine finding Is this a current diagnosis for this admission?: YesPlan: See admitting attending physician orders. (3) Asthma Qualifiers: Asthma severity: mild intermittent Asthma complication type: uncomplicated Qualified Code(s): J45.20 - Mild intermittent asthma, uncomplicated Is this a current diagnosis for this admission?: YesPlan: See admitting attending physician orders. - Time Time Spent: 50 to 70 Minutes Medications reviewed and adjusted accordingly: Yes Anticipated discharge: Home - Inpatient Certification Medical Necessity: Need Close Monitoring Due to Risk of Patient Decompensation, Need For IV Fluids, Need For Continuous Telemetry Monitoring, Need for Pain Control, Risk of Complication if Not Cared For in Hospital Post Hospital Care: D/C Safekeeping Clerk Documentation - Plan Summary Plan Summary: See admitting attending physician orders.
[2017-04-04 14:57] LABS: PATH REVIEW PATHOLOGIST REVIEWED
[2017-04-04] MEDS ORDERED: ZOLPIDEM TARTRATE 5 MG TABLET PO ONE (22:00)
[2017-04-05] MEDS: HYDROMORPHONE HCL INJ/PF 2 MG/ML AMPULE IV PRN ×7 (02:04→21:06)
[2017-04-05 04:49] LABS: HEMATOCRIT 25.6 % (37.9-51.0); HEMOGLOBIN 9.1 g/dL (13.5-17.0); HGB HCT DIFFERENCE 1.7; MEAN CORPUSCULAR HEMOGLOBIN 42.1 pg (27.0-33.4); MEAN CORPUSCULAR HGB CONC 35.4 g/dL (32.0-36.0); MEAN CORPUSCULAR VOLUME 119 fl (80-97); RED BLOOD COUNT 2.15 10^6/uL (4.35-5.55); RED CELL DISTRIBUTION WIDTH 24.9 % (11.5-14.0)
[2017-04-05 05:12] LABS: WHITE BLOOD COUNT 5.6 10^3/uL (4.0-10.5)
[2017-04-05] MEDS: LANSOPRAZOLE 30 MG TAB.RAP.DR PO SCH (05:15)
[2017-04-05] MEDS: ONDANSETRON HCL INJ/PF 4 MG/2 ML SDV IV PRN ×3 (08:10→21:06)
[2017-04-05] MEDS: FOLIC ACID 1 MG TABLET PO SCH (09:31)
[2017-04-05] MEDS: ENOXAPARIN SODIUM INJ 40 MG/0.4 ML DISP.SYRIN SUBCUT SCH (09:31)
[2017-04-05] MEDS: HYDROXYUREA 500 MG CAPSULE PO SCH (10:05)
[2017-04-05] MEDS: NORMAL SALINE 1000 ML 1,000 ML IV PRN (10:07)
--- NOTE | 2017-04-05 15:35 | PDOC PROGRESS REPORT ---
Subjective Progress Note for:: 04/05/17 Subjective:: Patient reported continued back pain. Remain on IV Hydromorphone and oral Ibuprofen for pain management. He is on IV fluid hydration. He denied any chest pain or difficulty with breathing. No fever or chills. No nausea or vomiting. Attempts at walking on the floor limited due to back pain. Physical Exam Vital Signs: Temp Pulse Resp BP Pulse Ox 98.2 F 80 16 123/70 96 04/05/17 11:47 04/05/17 11:47 04/05/17 11:47 04/05/17 11:47 04/05/17 11:47 Intake & Output 04/04/17 04/05/17 04/06/17 06:59 06:59 06:59 Intake Total 349 4546 700 Output Total 4825 1000 Balance 349 -279 -300 Weight 65.4 kg General appearance: PRESENT: no acute distress, mild distress - related to back pain Head exam: PRESENT: atraumatic, normocephalic Eye exam: PRESENT: conjunctiva pink, EOMI, PERRLA. ABSENT: scleral icterus Mouth exam: PRESENT: moist Respiratory exam: PRESENT: clear to auscultation ethan Cardiovascular exam: PRESENT: RRR. ABSENT: diastolic murmur, rubs, systolic murmur GI/Abdominal exam: PRESENT: normal bowel sounds, soft. ABSENT: distended, guarding, mass, organolmegaly, rebound, tenderness Extremities exam: PRESENT: tenderness - mid back region Musculoskeletal exam: PRESENT: normal inspection Neurological exam: PRESENT: alert, awake, oriented to person, oriented to place , oriented to time, oriented to situation, CN II-XII grossly intact. ABSENT: motor sensory deficit Skin exam: PRESENT: dry, intact, warm. ABSENT: cyanosis, rash Results Laboratory Results: 04/05/17 04:10 04/05/17 04:10 WBC 5.6 RBC 2.15 L Hgb 9.1 L Hct 25.6 L MCV 119 H MCH 42.1 H MCHC 35.4 RDW 24.9 H Plt Count 167 Impressions: Chest X-Ray 04/03/17 21:53 IMPRESSION: No acute pulmonary disease. Assessment & Plan - Diagnosis (1) Sickle cell disease with crisis Is this a current diagnosis for this admission?: Yes (2) Abnormal urine finding Is this a current diagnosis for this admission?: Yes (3) Asthma Qualifiers: Asthma severity: mild intermittent Asthma complication type: uncomplicated Qualified Code(s): J45.20 - Mild intermittent asthma, uncomplicated Is this a current diagnosis for this admission?: Yes - Time Time Spent with patient: 25-34 minutes Medications reviewed and adjusted accordingly: Yes Anticipated discharge: Other Within: Other - Inpatient Certification Based on my medical assessment, after consideration of the patient's comorbidities, presenting symptoms, or acuity I expect that the services needed warrant INPATIENT care.: Yes I certify that my determination is in accordance with my understanding of Medicare's requirements for reasonable and necessary INPATIENT services [42 CFR 412.3e].: Yes Medical Necessity: Need For IV Fluids, Need For Continuous Telemetry Monitoring , Need for Pain Control, Risk of Complication if Not Cared For in Hospital Post Hospital Care: D/C Vamp Strap 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 Monitor his CBC indices in view of hemoglobin down to 9.1 gm/dL. Consideration include hemodilution versus ongoing hemolytic crisis.
[2017-04-06] MEDS: HYDROMORPHONE HCL INJ/PF 2 MG/ML AMPULE IV PRN ×8 (00:02→22:41)
[2017-04-06] MEDS: NORMAL SALINE 1000 ML 1,000 ML IV PRN ×2 (03:01→17:50)
[2017-04-06] MEDS: ONDANSETRON HCL INJ/PF 4 MG/2 ML SDV IV PRN ×4 (03:01→19:26)
[2017-04-06] MEDS: LANSOPRAZOLE 30 MG TAB.RAP.DR PO SCH (06:18)
[2017-04-06 06:56] LABS: HEMATOCRIT 27.9 % (37.9-51.0); HEMOGLOBIN 9.7 g/dL (13.5-17.0); HGB HCT DIFFERENCE 1.2; MEAN CORPUSCULAR HEMOGLOBIN 42.9 pg (27.0-33.4); MEAN CORPUSCULAR HGB CONC 34.9 g/dL (32.0-36.0); RED BLOOD COUNT 2.27 10^6/uL (4.35-5.55); WHITE BLOOD COUNT 4.7 10^3/uL (4.0-10.5)
[2017-04-06 07:11] LABS: ALANINE AMINOTRANSFERASE 31 U/L (21-72); ALBUMIN 3.9 g/dL (3.5-5.0); ALKALINE PHOSPHATASE 101 U/L (38-126); ANION GAP 9 (5-19); ASPARTATE AMINO TRANSFERASE 38 U/L (17-59); BILIRUBIN,DIRECT 0.2 mg/dL (0.0-0.4); BILIRUBIN,TOTAL 1.8 mg/dL (0.2-1.3); BLOOD UREA NITROGEN 11 mg/dL (7-20); CALCIUM 8.8 mg/dL (8.4-10.2); CARBON DIOXIDE 29 mmol/L (22-30); CHLORIDE 105 mmol/L (98-107); CREATININE RESULT 0.76 mg/dL (0.52-1.25); GLUCOSE 96 mg/dL (75-110); POTASSIUM 4.1 mmol/L (3.6-5.0); SODIUM 142.8 mmol/L (137-145); TOTAL PROTEIN 7.5 g/dL (6.3-8.2)
[2017-04-06 07:29] LABS: MEAN CORPUSCULAR VOLUME 123 fl (80-97)
[2017-04-06 07:46] LABS: BASOPHILS % (MANUAL) 0 % (0-2); EOSINOPHILS % (MANUAL) 4 % (0-6); LYMPHOCYTES % (MANUAL) 61 % (13-45); NUCLEATED RED BLOOD CELLS 59 /100 WBC (0); TOTAL CELLS COUNTED 100
[2017-04-06 07:49] LABS: POLYCHROMASIA 1+
[2017-04-06 07:50] LABS: ANISOCYTOSIS 3+; HOWELL-JOLLY BODIES PRESENT; POIKILOCYTOSIS SLIGHT; SCHISTOCYTES SLIGHT; TARGET CELLS 1+
[2017-04-06] MEDS: ENOXAPARIN SODIUM INJ 40 MG/0.4 ML DISP.SYRIN SUBCUT SCH (09:29)
[2017-04-06] MEDS: FOLIC ACID 1 MG TABLET PO SCH (09:30)
[2017-04-06] MEDS: HYDROXYUREA 500 MG CAPSULE PO SCH (10:49)
--- NOTE | 2017-04-06 17:01 | PDOC PROGRESS REPORT ---
Subjective Progress Note for:: 04/06/17 Subjective:: Patient was admitted because of bone pain crisis Physical Exam Vital Signs: Temp Pulse Resp BP Pulse Ox 98.8 F 86 16 109/54 L 97 04/06/17 15:29 04/06/17 15:29 04/06/17 15:29 04/06/17 15:29 04/06/17 15:29 Intake & Output 04/05/17 04/06/17 04/07/17 06:59 06:59 06:59 Intake Total 4546 4440 Output Total 4825 3550 Balance -279 890 Weight 65.4 kg General appearance: PRESENT: well-developed Head exam: PRESENT: atraumatic, normocephalic Eye exam: PRESENT: PERRLA Respiratory exam: PRESENT: clear to auscultation ethan Cardiovascular exam: PRESENT: RRR, +S1, +S2 Vascular exam: PRESENT: normal capillary refill GI/Abdominal exam: PRESENT: normal bowel sounds, soft Rectal exam: PRESENT: deferred Neurological exam: PRESENT: alert, awake, oriented to person, oriented to place , oriented to time, oriented to situation, CN II-XII grossly intact Psychiatric exam: PRESENT: appropriate affect, normal mood Skin exam: PRESENT: dry, intact, warm Results Laboratory Results: 04/06/17 06:30 04/06/17 06:30 04/06/17 04/06/17 06:30 06:30 WBC 4.7 RBC 2.27 L Hgb 9.7 L Hct 27.9 L MCV 123 H D MCH 42.9 H MCHC 34.9 RDW 25.0 H Plt Count 187 Seg Neutrophils % Not Reportable Lymphocytes % Not Reportable Monocytes % Not Reportable Eosinophils % Not Reportable Basophils % Not Reportable Absolute Neutrophils Not Reportable Absolute Lymphocytes Not Reportable Absolute Monocytes Not Reportable Absolute Eosinophils Not Reportable Absolute Basophils Not Reportable Sodium 142.8 Potassium 4.1 Chloride 105 Carbon Dioxide 29 Anion Gap 9 BUN 11 Creatinine 0.76 Est GFR ( Amer) > 60 Est GFR (Non-Af Amer) > 60 Glucose 96 Calcium 8.8 Total Bilirubin 1.8 H AST 38 ALT 31 Alkaline Phosphatase 101 Total Protein 7.5 Albumin 3.9 Impressions: Chest X-Ray 04/03/17 21:53 IMPRESSION: No acute pulmonary disease. Assessment & Plan - Diagnosis (1) Abnormal urine finding Is this a current diagnosis for this admission?: Yes (3) Knee pain, left Qualifiers: Chronicity: acute Qualified Code(s): M25.562 - Pain in left knee (4) Sickle cell anemia Qualifiers: Sickle-cell associated disorders: with unspecified crisis Qualified Code(s): D57.00 - Hb-SS disease with crisis, unspecified; D57.0 - Hb-SS disease with crisis (5) Sickle cell crisis Is this a current diagnosis for this admission?: Yes (6) Sickle cell disease with crisis Is this a current diagnosis for this admission?: Yes (7) Asthma Qualifiers: Asthma severity: mild intermittent Asthma complication type: uncomplicated Qualified Code(s): J45.20 - Mild intermittent asthma, uncomplicated Is this a current diagnosis for this admission?: Yes
[2017-04-07] MEDS: HYDROMORPHONE HCL INJ/PF 2 MG/ML AMPULE IV PRN ×7 (01:34→21:25)
[2017-04-07] MEDS: ONDANSETRON HCL INJ/PF 4 MG/2 ML SDV IV PRN ×4 (01:34→21:25)
[2017-04-07] MEDS: NORMAL SALINE 1000 ML 1,000 ML IV PRN (03:29)
[2017-04-07] MEDS: LANSOPRAZOLE 30 MG TAB.RAP.DR PO SCH (06:41)
[2017-04-07] MEDS: HYDROXYUREA 500 MG CAPSULE PO SCH (10:12)
[2017-04-07] MEDS: FOLIC ACID 1 MG TABLET PO SCH (10:12)
[2017-04-07] MEDS: ENOXAPARIN SODIUM INJ 40 MG/0.4 ML DISP.SYRIN SUBCUT SCH (10:12)
--- NOTE | 2017-04-07 16:39 | PDOC PROGRESS REPORT ---
Subjective Progress Note for:: 04/07/17 Subjective:: Patient was admitted because of bone pain crisis Physical Exam Vital Signs: Temp Pulse Resp BP Pulse Ox 98.4 F 81 14 127/67 H 97 04/07/17 15:47 04/07/17 15:47 04/07/17 15:47 04/07/17 15:47 04/07/17 15:47 Intake & Output 04/06/17 04/07/17 04/08/17 06:59 06:59 06:59 Intake Total 4440 3977 1080 Output Total 3550 1300 500 Balance 890 2677 580 Weight 67.2 kg General appearance: PRESENT: no acute distress, well-developed, well-nourished Head exam: PRESENT: atraumatic, normocephalic Eye exam: PRESENT: conjunctiva pink, EOMI, PERRLA. ABSENT: scleral icterus Ear exam: PRESENT: normal external ear exam Mouth exam: PRESENT: moist, tongue midline Neck exam: PRESENT: full ROM. ABSENT: carotid bruit, JVD, lymphadenopathy, thyromegaly Cardiovascular exam: PRESENT: RRR. ABSENT: diastolic murmur, rubs, systolic murmur Pulses: PRESENT: normal dorsalis pedis pul, +2 pedal pulses bilateral Vascular exam: PRESENT: normal capillary refill GI/Abdominal exam: PRESENT: normal bowel sounds, soft. ABSENT: distended, guarding, mass, organolmegaly, rebound, tenderness Rectal exam: PRESENT: deferred Neurological exam: PRESENT: alert, awake, oriented to person, oriented to place , oriented to time, oriented to situation, CN II-XII grossly intact. ABSENT: motor sensory deficit Psychiatric exam: PRESENT: appropriate affect, normal mood. ABSENT: homicidal ideation, suicidal ideation Skin exam: PRESENT: dry, intact, warm. ABSENT: cyanosis, rash Results Laboratory Results: 04/06/17 06:30 04/06/17 06:30 Impressions: Chest X-Ray 04/03/17 21:53 IMPRESSION: No acute pulmonary disease. 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
[2017-04-08] MEDS: HYDROMORPHONE HCL INJ/PF 2 MG/ML AMPULE IV PRN ×8 (00:28→22:36)
[2017-04-08] MEDS: NORMAL SALINE 1000 ML 1,000 ML IV PRN ×2 (00:28→09:53)
[2017-04-08] MEDS: ONDANSETRON HCL INJ/PF 4 MG/2 ML SDV IV PRN ×4 (03:36→22:36)
[2017-04-08] MEDS: LANSOPRAZOLE 30 MG TAB.RAP.DR PO SCH (06:20)
[2017-04-08] MEDS: FOLIC ACID 1 MG TABLET PO SCH (09:51)
[2017-04-08] MEDS: ENOXAPARIN SODIUM INJ 40 MG/0.4 ML DISP.SYRIN SUBCUT SCH (09:51)
[2017-04-08 10:24] LABS: HEMATOCRIT 29.2 % (37.9-51.0); HGB HCT DIFFERENCE 0.8; MEAN CORPUSCULAR HEMOGLOBIN 42.6 pg (27.0-33.4); MEAN CORPUSCULAR HGB CONC 34.1 g/dL (32.0-36.0); MEAN CORPUSCULAR VOLUME 125 fl (80-97); RED BLOOD COUNT 2.34 10^6/uL (4.35-5.55); RED CELL DISTRIBUTION WIDTH 25.7 % (11.5-14.0); WHITE BLOOD COUNT 4.4 10^3/uL (4.0-10.5)
[2017-04-08 10:41] LABS: ALANINE AMINOTRANSFERASE 25 U/L (21-72); ALKALINE PHOSPHATASE 86 U/L (38-126); ANION GAP 10 (5-19); ASPARTATE AMINO TRANSFERASE 48 U/L (17-59); BILIRUBIN,DIRECT 0.2 mg/dL (0.0-0.4); BILIRUBIN,TOTAL 2.6 mg/dL (0.2-1.3); BLOOD UREA NITROGEN 9 mg/dL (7-20); CARBON DIOXIDE 29 mmol/L (22-30); CHLORIDE 104 mmol/L (98-107); CREATININE RESULT 0.66 mg/dL (0.52-1.25); GLUCOSE 87 mg/dL (75-110); POTASSIUM 4.2 mmol/L (3.6-5.0); SODIUM 142.5 mmol/L (137-145); TOTAL PROTEIN 7.3 g/dL (6.3-8.2)
[2017-04-08 11:21] LABS: BASOPHILS % (MANUAL) 0 % (0-2); EOSINOPHILS % (MANUAL) 2 % (0-6); LYMPHOCYTES % (MANUAL) 34 % (13-45); NUCLEATED RED BLOOD CELLS 71 /100 WBC (0); TOTAL CELLS COUNTED 100
[2017-04-08 11:23] LABS: POIKILOCYTOSIS 2+
[2017-04-08 11:24] LABS: ANISOCYTOSIS 3+; HOWELL-JOLLY BODIES PRESENT; HYPOCHROMASIA SLIGHT; OVALOCYTES 1+; PLATELET CLUMPS PRESENT; POLYCHROMASIA 3+; SCHISTOCYTES 1+; TARGET CELLS SLIGHT; TOXIC VACUOLATION PRESENT
[2017-04-08] MEDS: HYDROXYUREA 500 MG CAPSULE PO SCH (12:19)
--- NOTE | 2017-04-08 19:26 | PDOC PROGRESS REPORT ---
Subjective Progress Note for:: 04/08/17 Subjective:: Patient continue to complain about mid back pain. Nursing staff reported minimal to no physical movement by the patient on the pretest of back and joint pain. Has been on schedule call for IV hydromorphone. Remain on oral Ibuprofen for pain management. He is on IV fluid hydration. He denied any chest pain or difficulty with breathing. No fever or chills. No nausea or vomiting. Physical Exam Vital Signs: Temp Pulse Resp BP Pulse Ox 99.1 F 93 18 109/63 98 04/08/17 15:31 04/08/17 15:31 04/08/17 15:31 04/08/17 15:31 04/08/17 15:31 Intake & Output 04/07/17 04/08/17 04/09/17 06:59 06:59 06:59 Intake Total 3977 4394 3054 Output Total 1300 2100 1550 Balance 2677 2294 1504 Weight 67.2 kg 68.5 kg Physical Exam: General appearance: PRESENT: no acute distress, mild distress - related to reported back pain Head exam: PRESENT: atraumatic, normocephalic Eye exam: PRESENT: conjunctiva pink, EOMI, PERRLA. ABSENT: scleral icterus Mouth exam: PRESENT: moist Respiratory exam: PRESENT: clear to auscultation ethan Cardiovascular exam: PRESENT: RRR. ABSENT: diastolic murmur, rubs, systolic murmur GI/Abdominal exam: PRESENT: normal bowel sounds, soft. ABSENT: distended, guarding, mass, organomegaly, rebound, tenderness Extremities exam: PRESENT: tenderness - mid back region Musculoskeletal exam: PRESENT: normal inspection Neurological exam: PRESENT: alert, awake, oriented to person, oriented to place , oriented to time, oriented to situation, CN II-XII grossly intact. ABSENT: motor sensory deficit Skin exam: PRESENT: dry, intact, warm. ABSENT: cyanosis, rash Results Laboratory Results: 04/08/17 09:40 04/08/17 09:40 04/08/17 04/08/17 09:40 09:40 WBC 4.4 RBC 2.34 L Hgb 10.0 L Hct 29.2 L MCV 125 H MCH 42.6 H MCHC 34.1 RDW 25.7 H Plt Count 192 Seg Neutrophils % Not Reportable Lymphocytes % Not Reportable Monocytes % Not Reportable Eosinophils % Not Reportable Basophils % Not Reportable Absolute Neutrophils Not Reportable Absolute Lymphocytes Not Reportable Absolute Monocytes Not Reportable Absolute Eosinophils Not Reportable Absolute Basophils Not Reportable Sodium 142.5 Potassium 4.2 Chloride 104 Carbon Dioxide 29 Anion Gap 10 BUN 9 Creatinine 0.66 Est GFR ( Amer) > 60 Est GFR (Non-Af Amer) > 60 Glucose 87 Calcium 9.0 Total Bilirubin 2.6 H AST 48 ALT 25 Alkaline Phosphatase 86 Total Protein 7.3 Albumin 4.0 Impressions: Chest X-Ray 04/03/17 21:53 IMPRESSION: No acute pulmonary disease. Assessment & Plan - Diagnosis (1) Sickle cell disease with crisis Is this a current diagnosis for this admission?: Yes (2) Abnormal urine finding Is this a current diagnosis for this admission?: Yes (3) Asthma Qualifiers: Asthma severity: mild intermittent Asthma complication type: uncomplicated Qualified Code(s): J45.20 - Mild intermittent asthma, uncomplicated Is this a current diagnosis for this admission?: Yes - Time Time Spent with patient: 25-34 minutes Medications reviewed and adjusted accordingly: Yes Anticipated discharge: Home Within: Other - Inpatient Certification Based on my medical assessment, after consideration of the patient's comorbidities, presenting symptoms, or acuity I expect that the services needed warrant INPATIENT care.: Yes I certify that my determination is in accordance with my understanding of Medicare's requirements for reasonable and necessary INPATIENT services [42 CFR 412.3e].: Yes Medical Necessity: Need Close Monitoring Due to Risk of Patient Decompensation, Need For IV Fluids, Need For Continuous Telemetry Monitoring, Need for Pain Control, Risk of Complication if Not Cared For in Hospital Post Hospital Care: D/C Grind Operator Documentation - Plan Summary Plan Summary: Continue current medication management. Emphasize efforts at walking on the floor. Discussed possible discharge in next 24-48 hours.
[2017-04-09] MEDS: HYDROMORPHONE HCL INJ/PF 2 MG/ML AMPULE IV PRN ×2 (01:30→05:10)
[2017-04-09] MEDS: ONDANSETRON HCL INJ/PF 4 MG/2 ML SDV IV PRN (05:10)
[2017-04-09] MEDS: LANSOPRAZOLE 30 MG TAB.RAP.DR PO SCH (05:10)
--- NOTE | 2017-04-09 08:40 | PDOC PROGRESS REPORT ---
Subjective Progress Note for:: 04/09/17 Subjective:: Patient reported some improvement in his mid back and joint pain. He remain on IV hydromorphone and oral Ibuprofen for pain management. He is on IV fluid hydration. He denied any chest pain or difficulty with breathing. No fever or chills. No nausea or vomiting. Physical Exam Vital Signs: Temp Pulse Resp BP Pulse Ox 98.6 F 83 14 119/58 L 97 04/09/17 03:26 04/09/17 07:00 04/09/17 03:26 04/09/17 03:26 04/09/17 03:26 Intake & Output 04/08/17 04/09/17 04/10/17 06:59 06:59 06:59 Intake Total 4394 5069 Output Total 2100 2625 Balance 2294 2444 Weight 68.5 kg Physical Exam: General appearance: PRESENT: no acute distress, mild distress - related to reported back pain Head exam: PRESENT: atraumatic, normocephalic Eye exam: PRESENT: conjunctiva pink, EOMI, PERRLA. ABSENT: scleral icterus Mouth exam: PRESENT: moist Respiratory exam: PRESENT: clear to auscultation ethan Cardiovascular exam: PRESENT: RRR. ABSENT: diastolic murmur, rubs, systolic murmur GI/Abdominal exam: PRESENT: normal bowel sounds, soft. ABSENT: distended, guarding, mass, organomegaly, rebound, tenderness Extremities exam: PRESENT: tenderness - mid back region Musculoskeletal exam: PRESENT: normal inspection Neurological exam: PRESENT: alert, awake, oriented to person, oriented to place , oriented to time, oriented to situation, CN II-XII grossly intact. ABSENT: motor sensory deficit Skin exam: PRESENT: dry, intact, warm. ABSENT: cyanosis, rash Results Laboratory Results: 04/08/17 09:40 04/08/17 09:40 04/08/17 04/08/17 09:40 09:40 WBC 4.4 RBC 2.34 L Hgb 10.0 L Hct 29.2 L MCV 125 H MCH 42.6 H MCHC 34.1 RDW 25.7 H Plt Count 192 Seg Neutrophils % Not Reportable Lymphocytes % Not Reportable Monocytes % Not Reportable Eosinophils % Not Reportable Basophils % Not Reportable Absolute Neutrophils Not Reportable Absolute Lymphocytes Not Reportable Absolute Monocytes Not Reportable Absolute Eosinophils Not Reportable Absolute Basophils Not Reportable Sodium 142.5 Potassium 4.2 Chloride 104 Carbon Dioxide 29 Anion Gap 10 BUN 9 Creatinine 0.66 Est GFR ( Amer) > 60 Est GFR (Non-Af Amer) > 60 Glucose 87 Calcium 9.0 Total Bilirubin 2.6 H AST 48 ALT 25 Alkaline Phosphatase 86 Total Protein 7.3 Albumin 4.0 Impressions: Chest X-Ray 04/03/17 21:53 IMPRESSION: No acute pulmonary disease. Assessment & Plan - Diagnosis (1) Sickle cell disease with crisis Is this a current diagnosis for this admission?: Yes (2) Abnormal urine finding Is this a current diagnosis for this admission?: Yes (3) Asthma Qualifiers: Asthma severity: mild intermittent Asthma complication type: uncomplicated Qualified Code(s): J45.20 - Mild intermittent asthma, uncomplicated Is this a current diagnosis for this admission?: Yes - Time Time Spent with patient: 25-34 minutes Medications reviewed and adjusted accordingly: Yes Anticipated discharge: Home Within: within 24 hours - Inpatient Certification Based on my medical assessment, after consideration of the patient's comorbidities, presenting symptoms, or acuity I expect that the services needed warrant INPATIENT care.: Yes I certify that my determination is in accordance with my understanding of Medicare's requirements for reasonable and necessary INPATIENT services [42 CFR 412.3e].: Yes Medical Necessity: Need Close Monitoring Due to Risk of Patient Decompensation, Need For IV Fluids, Need For Continuous Telemetry Monitoring, Need for Pain Control, Risk of Complication if Not Cared For in Hospital Post Hospital Care: D/C Lithographers Printer Documentation - Plan Summary Plan Summary: I will discontinue IV Dilaudid. Patient will be started on his home pain medication management. Encouraged to start ambulating on the floor. Continue IV hydration. Maintain on all other current medication management.
[2017-04-09] MEDS: ENOXAPARIN SODIUM INJ 40 MG/0.4 ML DISP.SYRIN SUBCUT SCH (09:52)
[2017-04-09] MEDS: FOLIC ACID 1 MG TABLET PO SCH (09:53)
[2017-04-09] MEDS: OXYCODONE HCL IR 5 MG TABLET PO PRN ×4 (09:54→21:08)
[2017-04-09] MEDS ORDERED: FENTANYL 100 MCG/HR PATCH.TD72 TD SCH (10:00)
[2017-04-09] MEDS: ONDANSETRON 4 MG TAB.RAPDIS PO PRN ×2 (12:06→18:05)
[2017-04-09] MEDS: HYDROXYUREA 500 MG CAPSULE PO SCH (12:08)
[2017-04-10] MEDS: OXYCODONE HCL IR 5 MG TABLET PO PRN ×6 (01:17→21:34)
[2017-04-10] MEDS: LANSOPRAZOLE 30 MG TAB.RAP.DR PO SCH (05:24)
[2017-04-10] MEDS: NORMAL SALINE 1000 ML 1,000 ML IV PRN ×2 (05:29→16:46)
[2017-04-10] MEDS: ENOXAPARIN SODIUM INJ 40 MG/0.4 ML DISP.SYRIN SUBCUT SCH (10:02)
[2017-04-10] MEDS: FOLIC ACID 1 MG TABLET PO SCH (10:03)
[2017-04-10] MEDS: HYDROXYUREA 500 MG CAPSULE PO SCH (14:12)
--- NOTE | 2017-04-10 20:24 | PDOC PROGRESS REPORT ---
Subjective Progress Note for:: 04/10/17 Subjective:: Patient reported improvement in his mid back and joint pain. Ambulate fairly satisfactorily so far today. He remain on Oxycodone, Fentanyl patch and Ibuprofen for pain management. He is on IV fluid hydration. He denied any chest pain or difficulty with breathing. No fever or chills. No nausea or vomiting. Physical Exam Vital Signs: Temp Pulse Resp BP Pulse Ox 98.1 F 95 16 123/103 H 91 L 04/10/17 11:43 04/10/17 15:59 04/10/17 15:59 04/10/17 15:59 04/10/17 11:43 Intake & Output 04/09/17 04/10/17 04/11/17 06:59 06:59 06:59 Intake Total 5069 3905 1180 Output Total 2625 2360 3050 Balance 2444 1545 -1870 Physical Exam: General appearance: PRESENT: no acute distress, mild distress - related to reported back pain Head exam: PRESENT: atraumatic, normocephalic Eye exam: PRESENT: conjunctiva pink, EOMI, PERRLA. ABSENT: scleral icterus Mouth exam: PRESENT: moist Respiratory exam: PRESENT: clear to auscultation ethan Cardiovascular exam: PRESENT: RRR. ABSENT: diastolic murmur, rubs, systolic murmur GI/Abdominal exam: PRESENT: normal bowel sounds, soft. ABSENT: distended, guarding, mass, organomegaly, rebound, tenderness Extremities exam: PRESENT: tenderness - mid back region Musculoskeletal exam: PRESENT: normal inspection Neurological exam: PRESENT: alert, awake, oriented to person, oriented to place , oriented to time, oriented to situation, CN II-XII grossly intact. ABSENT: motor sensory deficit Skin exam: PRESENT: dry, intact, warm. ABSENT: cyanosis, rash Results Laboratory Results: 04/08/17 09:40 04/08/17 09:40 Impressions: Chest X-Ray 04/03/17 21:53 IMPRESSION: No acute pulmonary disease. Assessment & Plan - Diagnosis (1) Sickle cell disease with crisis Is this a current diagnosis for this admission?: Yes (2) Abnormal urine finding Is this a current diagnosis for this admission?: Yes (3) Asthma Qualifiers: Asthma severity: mild intermittent Asthma complication type: uncomplicated Qualified Code(s): J45.20 - Mild intermittent asthma, uncomplicated Is this a current diagnosis for this admission?: Yes - Time Time Spent with patient: 25-34 minutes Medications reviewed and adjusted accordingly: Yes Anticipated discharge: Home Within: within 24 hours - Inpatient Certification Based on my medical assessment, after consideration of the patient's comorbidities, presenting symptoms, or acuity I expect that the services needed warrant INPATIENT care.: Yes I certify that my determination is in accordance with my understanding of Medicare's requirements for reasonable and necessary INPATIENT services [42 CFR 412.3e].: Yes Medical Necessity: Need Close Monitoring Due to Risk of Patient Decompensation, Need For IV Fluids, Need For Continuous Telemetry Monitoring, Need for Pain Control, Risk of Complication if Not Cared For in Hospital Post Hospital Care: D/C Fashion Consultant Sales 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 I encouraged continue ambulatory efforts. I discussed possible discharge in next 24 hours with patient and he is in agreement.
[2017-04-10] MEDS: ONDANSETRON 4 MG TAB.RAPDIS PO PRN (23:11)
[2017-04-11] MEDS: OXYCODONE HCL IR 5 MG TABLET PO PRN ×3 (01:23→09:13)
[2017-04-11] MEDS: NORMAL SALINE 1000 ML 1,000 ML IV PRN (02:59)
[2017-04-11] MEDS: LANSOPRAZOLE 30 MG TAB.RAP.DR PO SCH (05:12)
--- NOTE | 2017-04-11 08:11 | PDOC DISCHARGE SUMMARY ---
General - Admit/Disc Date/PCP Admission Date/Primary Care Provider: 04/04/17 05:09 ANDREW WILLIS Discharge Date: 04/11/17 - Discharge Diagnosis (1) Sickle cell disease with crisis Is this a current diagnosis for this admission?: Yes (2) Abnormal urine finding Is this a current diagnosis for this admission?: Yes (3) Asthma Is this a current diagnosis for this admission?: Yes - Additional Information Resuscitation Status: Full Code Discharge Diet: Regular Discharge Activity: Activity As Tolerated Home Medications: Albuterol Sulfate [Proair HFA] 2 puff IH Q4HP PRN 02/01/17 Fentanyl [Duragesic 100 Mcg/Hr Transdermal Patch] 1 patch TD Q3D 02/01/17 Folic Acid [Folvite 1 mg Tablet] 1 mg PO DAILY 02/01/17 Hydroxyurea [Hydrea 500 mg Capsule] 1,000 mg PO SUTUTHSA 02/01/17 Hydroxyurea [Hydrea 500 mg Capsule] 1,500 mg PO MOWEFR 02/01/17 Ibuprofen [Motrin 800 mg Tablet] 800 mg PO Q6HP PRN 02/01/17 Ondansetron [Zofran Odt 4 mg Tablet] 4 mg PO Q6HP PRN 02/01/17 Oxycodone HCl [Oxy-Ir 5 mg Tablet] 15 mg PO Q4 PRN 03/27/17 History of Present Illness History of Present Illness: MARINO POZO is a 21 year old male known to my practice and recently discharged from this facility after presenting with similar symptoms. Patient return to the ED with complain of worsening back pain over last 2 days. He dose have history of sickle cell disease with frequent crisis. He claimed compliance with his medication and follow up with Dr Terrance blum supervisor tellers. He denied any untoward stress, fever, chills, dysuria, or difficulty with breathing. Patient reported spreading involvement of his knee and chest with ongoing pain. He claimed minimal relief of his pain on his current home pain medication management regimen that include Fentanyl patch 100 mcg / hour q 72 hours, Oxycodone 15 mg p.o tid and Ibuprofen 800 mg p.o tid. Despite initial management in the ED with IV Dilaudid several doses patient reported persistent of pain necessitating admission to the hospital for further evaluation and management. Hospital Course Hospital Course: Patient responded well to IV fluid hydration and IV Hydromorphone for pain management. He was eventually taken off IV Hydromorphone, encouraged ambulation on the floor and restarted on his pre admission pain medication management. His hemoglobin remain acceptable range. He has remain on all of his preadmission mediation over last 48 hours with good pain control, absence of fever and satisfactory breathing effort. He will be discharge home today with instruction to follow up with Dr Carlos for his outpatient pain medication prescription and follow up. he will follow up with me in the office as instructed upon discharge. Physical Exam Vital Signs: Temp Pulse Resp BP Pulse Ox 98.9 F 95 16 128/76 H 94 04/11/17 03:19 04/11/17 07:00 04/11/17 03:19 04/11/17 03:19 04/11/17 03:19 Intake & Output 04/10/17 04/11/17 04/12/17 06:59 06:59 06:59 Intake Total 3905 1900 Output Total 2360 3755 Balance 1545 -1855 Physical Exam: General appearance: PRESENT: no acute distress, mild distress - related to reported back pain Head exam: PRESENT: atraumatic, normocephalic Eye exam: PRESENT: conjunctiva pink, EOMI, PERRLA. ABSENT: scleral icterus Mouth exam: PRESENT: moist Respiratory exam: PRESENT: clear to auscultation ethan Cardiovascular exam: PRESENT: RRR. ABSENT: diastolic murmur, rubs, systolic murmur GI/Abdominal exam: PRESENT: normal bowel sounds, soft. ABSENT: distended, guarding, mass, organomegaly, rebound, tenderness Extremities exam: PRESENT: very minimal tenderness - mid back region Musculoskeletal exam: PRESENT: normal inspection Neurological exam: PRESENT: alert, awake, oriented to person, oriented to place , oriented to time, oriented to situation, CN II-XII grossly intact. ABSENT: motor sensory deficit Skin exam: PRESENT: dry, intact, warm. ABSENT: cyanosis, rash Results Laboratory Results: 04/08/17 09:40 04/08/17 09:40 Impressions: Chest X-Ray 04/03/17 21:53 IMPRESSION: No acute pulmonary disease. Qualifiers PATEINT BEING DISCHARGED WITH ANY OF THE FOLLOWING DIAGNOSIS?: No Plan Discharge Plan: Discharge home today. Follow up with Dr Carlos, his supervisor tellers, for outpatient sickle cell disease and chronic pain management. Follow up with me in the office as instructed upon discharge. Time Spent: Less than 30 Minutes - I did discuss his post discharge care plan with him at bedside.
[2017-04-11 08:34] VITALS: BP 119/67
[2017-04-11] MEDS: ENOXAPARIN SODIUM INJ 40 MG/0.4 ML DISP.SYRIN SUBCUT SCH (09:05)
[2017-04-11] MEDS: FOLIC ACID 1 MG TABLET PO SCH (09:13)
== END 2017-04-11 09:20 | disposition home or self-care (01) | DRG 812 ==
LOC: ER 20:51 → EH 04-04 02:42 → UNDOADMIN 04-04 02:42 → EH 04-04 04:05 → 4S 04-04 04:05 → EH 04-04 05:09 → 5 04-06 12:01
PROVIDERS: ADMIT Internal Medicine Geriatric Medicine; ATTEND Internal Medicine Geriatric Medicine
DX: D57.00 Hb-SS disease with crisis, unspecified (principal); M87.9 Osteonecrosis, unspecified; J45.20 Mild intermittent asthma, uncomplicated; M25.562 Pain in left knee; R82.90 Unspecified abnormal findings in urine; Z79.1 Long term (current) use of non-steroidal anti-inflammatories (NSAID); Z79.891 Long term (current) use of opiate analgesic; Z79.51 Long term (current) use of inhaled steroids; Z79.899 Other long term (current) drug therapy
CPT/HCPCS: 36415; 36591; 71020; 80053; 81001; 85025; 85027; 85045; 87086; 93005; 93010; 96374; 96375; 96376; 99285; J1170; J1200; J1650; J2405; J3490; J7030; S0119

== ENCOUNTER 2017-04-14 20:40 | Emergency (ER) | payer MEDICAID ==
[2017-04-14 21:03] VITALS: BP 148/77
[2017-04-14] MEDS ORDERED: PENICILLIN V POTASSIUM 500 MG TABLET PO ONE (21:44)
--- NOTE | 2017-04-14 21:45 | ER Document Report ---
ED General - General Mode of Arrival: Ambulatory Information source: Patient TRAVEL OUTSIDE OF THE [place] IN LAST 30 DAYS: No - HPI Onset: Other - 2 days Associated symptoms: Other - see above - General Chief Complaint: Jaw Pain Stated Complaint: JAW PAIN Time Seen by Provider: 04/14/17 21:22 Notes: Patient is a 21 year old male who presents to the ED with complaints of a headache and left jaw pain and swelling glands on the left side of his neck with onset 2 days. Patient denies any dental pain or discharge or funny taste in his mouth. Patient states he has difficulty chewing, he has pain with both opening and biting down on food. Patient can open and close his mouth with no difficulty. Patient denies photophobia, fever, pain in the back of his neck, sore throat, rhinorrhea, ear ache or difficulty hearing. (ELEUTERIO KAPLAN) - Related Data Allergies/Adverse Reactions: Coconut * [Coconut] Allergy (Mild, Verified 04/14/17 21:03) transpore tape Allergy (Mild, Uncoded 04/14/17 21:03) Hives Past Medical History - General Information source: Patient - Social History Smoking Status: Never Smoker Chew tobacco use (# tins/day): No Frequency of alcohol use: Occasional Drug Abuse: None Family History: Arthritis, DM, Hypertension, Other - Sickle cell trait both parents and asthma Patient has suicidal ideation: No Patient has homicidal ideation: No Pulmonary Medical History: Reports: Hx Asthma, Hx Pneumonia Renal/ Medical History: Denies: Hx Peritoneal Dialysis Psychiatric Medical History: Denies: Hx Depression Past Surgical History: Reports: Hx Abdominal Surgery - Gallstones removal, Hx Orthopedic Surgery - Fluid drained from right foot, Hx Vascular Surgery - Port placement. Denies: Hx Cholecystectomy - Immunizations Immunizations up to date: Yes Hx Diphtheria, Pertussis, Tetanus Vaccination: Yes Hx Pneumococcal Vaccination: 01/15/13 Review of Systems - Review of Systems Constitutional: See HPI. denies: Fever EENT: See HPI, Other - jaw pain. denies: Ear pain, Throat pain, Dental problem Cardiovascular: No symptoms reported Respiratory: No symptoms reported Gastrointestinal: No symptoms reported Genitourinary: No symptoms reported Male Genitourinary: No symptoms reported Musculoskeletal: No symptoms reported Skin: No symptoms reported Hematologic/Lymphatic: No symptoms reported Neurological/Psychological: See HPI, Headaches Physical Exam - Vital signs Vitals: Temp Pulse Resp BP Pulse Ox 99 F 104 H 14 148/77 H 96 04/14/17 21:01 04/14/17 21:01 04/14/17 21:01 04/14/17 21:01 04/14/17 21:01 - Notes Notes: HEAD: Normocephalic, atraumatic. EYES: Pupils equal, round, and reactive to light. Extraocular movements intact. ENT: Oral mucosa moist, tongue midline. Nares patent, no nasal septal hematoma, TM's intact bilaterally. Left TMJ tenderness. No Moisés's angina. NECK: Full range of motion. Supple. Trachea midline. No meningismus. Left sternocleidomastoid muscle tenderness. Anterior and posterior cervical lymphadenopathy on the left side only. No masses palpated. LUNGS: No respiratory distress. ABDOMEN: Non-distended. EXTREMITIES: Moves all 4 extremities spontaneously. No edema. No cyanosis. NEUROLOGICAL: Alert and oriented x3. Normal speech. PSYCH: Normal affect, normal mood. SKIN: Warm, dry, normal turgor. No rashes or lesions noted. (ELEUTERIO KAPLAN) Course - Re-evaluation Re-evalutation: 04/14/17 21:47 No evidence of peritonsillar abscess, dental abscess, Moisés angina. I am suspicious for early dental infection, given patient's immunocompromised as a sickle cell patient patient will be started on Penicillin VK and discharged home , encouraged to follow-up with primary care physician and dentist. As patient does have some left-sided muscle spasm patient will also be started on Robaxin and discharged home. (ULICES VALDEZ) - Vital Signs Vital signs: Temp Pulse Resp BP Pulse Ox 99 F 104 H 14 148/77 H 96 04/14/17 21:01 04/14/17 21:01 04/14/17 21:01 04/14/17 21:01 04/14/17 21:01 Discharge - Discharge Clinical Impression: Left-sided face pain Headache Qualifiers: Headache type: unspecified Headache chronicity pattern: acute headache Intractability: not intractable Qualified Code(s): R51 - Headache Condition: Stable Disposition: HOME, SELF-CARE Additional Instructions: I suspect dental infection is causing your pain however I cannot find the affected tooth. I prescribed Penicillin VK to help treat this. If your pain worsens, you develop fevers or you develop any new or concerning symptoms please return immediately. I have also prescribed Robaxin for the muscle spasm I can feel on the left side of your neck. This will help with the headache. Prescriptions: Methocarbamol [Robaxin 750 mg Tablet] 750 mg PO ASDIR PRN #40 tablet PRN Reason: Penicillin V Potassium [Penicillin Vk 250 mg Tablet] 250 mg PO Q6 #28 tablet Scribe Attestation: 04/14/17 23:00 I personally performed the services described in the documentation, reviewed and edited the documentation which was dictated to the scribe in my presence, and it accurately records my words and actions. (ULICES VALDEZ) Angie Documentation - Scribe Written by Angie:: angie Adan, 04/14/2017, [id number] acting as scribe for :: Branden
[2017-04-14] MEDS ORDERED: METHOCARBAMOL 750 MG TABLET PO ONE (21:53)
== END 2017-04-14 22:05 | disposition home or self-care (01) ==
LOC: ER 20:40
DX: R51 Headache (principal); R68.84 Jaw pain; R59.0 Localized enlarged lymph nodes; M62.838 Other muscle spasm; D57.1 Sickle-cell disease without crisis; J45.909 Unspecified asthma, uncomplicated; Z91.018 Allergy to other foods; Z88.8 Allergy status to other drugs, medicaments and biological substances
CPT/HCPCS: 99283; J3490 ×2

== ENCOUNTER 2017-04-20 18:35 | Emergency (ER) | payer MEDICAID ==
--- NOTE | 2017-04-20 19:24 | ER Document Report ---
ED Medical Screen (RME) - General Chief Complaint: Sickle Cell Crisis Stated Complaint: SICKLE CELL CRISIS Time Seen by Provider: 04/20/17 19:22 Mode of Arrival: Ambulatory Information source: Patient TRAVEL OUTSIDE OF THE [place] IN LAST 30 DAYS: No - HPI Patient complains to provider of: LOW BACK PAIN Onset: Other - 3 DAYS Onset/Duration: Gradual Quality of pain: Achy, Dull Severity: Moderate Associated Symptoms: Chills, Nausea, Sweating. denies: Cough (productive), Cough (nonproductive), Shortness of breath Exacerbated by: Denies Relieved by: Denies Similar symptoms previously: Yes - W/ SS CRISIS Recently seen / treated by doctor: Yes - 2 WKS AGO, SAME - Related Data Smoking: Non-smoker Frequency of alcohol use: None Drug Abuse: None Allergies/Adverse Reactions: Coconut * [Coconut] Allergy (Mild, Verified 04/20/17 19:18) transpore tape Allergy (Mild, Uncoded 04/20/17 19:18) Hives Past Medical History - General Information source: Patient - Social History Cigarette use (# per day): No Chew tobacco use (# tins/day): No Frequency of alcohol use: Rare Drug Abuse: None Lives with: Spouse/Significant other Family history: None - Past Medical History Cardiac Medical History: Reports: None Pulmonary Medical History: Reports: Hx Asthma, Hx Pneumonia Neurological Medical History: Reports: None Endocrine Medical History: Reports: None Renal/ Medical History: Reports: None. Denies: Hx Peritoneal Dialysis Malignancy Medical History: Reports None GI Medical History: Reports: None Musculoskeltal Medical History: Reports None Psychiatric Medical History: Reports: None Denies: Hx Depression Past Surgical History: Reports: Hx Abdominal Surgery - Gallstones removal, Hx Orthopedic Surgery - Fluid drained from right foot, Hx Vascular Surgery - Port placement. Denies: Hx Cholecystectomy - Immunizations Immunizations up to date: Yes Hx Diphtheria, Pertussis, Tetanus Vaccination: Yes Review of Systems - Review of Systems Constitutional: See HPI EENT: No symptoms reported Cardiovascular: No symptoms reported Respiratory: No symptoms reported Gastrointestinal: No symptoms reported Genitourinary: No symptoms reported Musculoskeletal: See HPI Skin: No symptoms reported Neurological/Psychological: No symptoms reported Physical Exam - Vital signs Vitals: Temp Pulse Resp BP Pulse Ox 99.1 F 117 H 20 133/88 H 98 04/20/17 18:37 04/20/17 18:37 04/20/17 18:37 04/20/17 18:37 04/20/17 18:37 Interpretation: Tachycardic. No: Hypotensive, Tachypneic, Febrile - General General appearance: Appears well, Alert In distress: None - HEENT Head: Normocephalic Eyes: Normal. No: Pale conjunctiva Conjunctiva: Normal Ears: Normal Nasal: Normal Mouth/Lips: Normal Mucous membranes: Normal Pharynx: Normal Neck: Normal - Respiratory Respiratory status: No respiratory distress Breath sounds: Normal - Cardiovascular Rhythm: Regular Heart sounds: Normal auscultation Murmur: No - Abdominal Inspection: Normal Distension: No distension - Back Back: Normal - Extremities General upper extremity: Normal inspection General lower extremity: Normal inspection - Neurological Neuro grossly intact: Yes Cognition: Normal Orientation: AAOx4 - Psychological Associated symptoms: Normal affect, Normal mood - Skin Skin Temperature: Warm Skin Moisture: Dry Skin Color: Normal Skin Turgor: Elastic Course - Vital Signs Vital signs: Temp Pulse Resp BP Pulse Ox 99.1 F 117 H 20 133/88 H 98 04/20/17 18:37 04/20/17 18:37 04/20/17 18:37 04/20/17 18:37 04/20/17 18:37
[2017-04-20] MEDS ORDERED: ONDANSETRON HCL INJ/PF 4 MG/2 ML SDV IV ONE (19:26)
[2017-04-20] MEDS ORDERED: NORMAL SALINE 1000 ML 1,000 ML IV ONE ×2 (19:26→21:27)
[2017-04-20] MEDS ORDERED: HYDROMORPHONE HCL INJ/PF 2 MG/ML AMPULE IV ONE ×3 (19:26→23:15)
[2017-04-20] MEDS ORDERED: DIPHENHYDRAMINE HCL 50 MG/ML VIAL IV ONE (19:26)
[2017-04-20 20:08] LABS: APPEARANCE,URINE CLEAR; BILIRUBIN,URINE MODERATE (NEGATIVE); GLUCOSE, URINE NEGATIVE (NEGATIVE); KETONES,URINE NEGATIVE (NEGATIVE); LEUKOCYTE ESTERASE,URINE TRACE (NEGATIVE); NITRITE,URINE NEGATIVE (NEGATIVE); PROTEIN,URINE NEGATIVE (NEGATIVE); URINE SPECIFIC GRAVITY 1.017; UROBILINOGEN,URINE NEGATIVE mg/dL (<2.0)
--- NOTE | 2017-04-20 20:28 | ER Document Report ---
HPI - HPI Pain Level: 4 Notes: Patient is a 21-year-old male with a history of sickle cell who presents the ED complaining of a re-exacerbation of sickle cell crisis with low back pain 3 days and nausea/vomiting 2 today. Patient states that he was seen a couple weeks ago and had to get admitted at that time. Patient states that his symptoms are the same as they were 2 weeks ago. Patient states that upon discharge his pain had gone away, but started developing again over the last 3 days. Patient has had a decreased appetite today. He denies any drug allergies. Other past medical history significant for asthma. Denies any smoking or illicit drug use. His insulation cutter is Dr. Krueger and his PCM is Dr. Willis. Denies any current headache, fever, neck pain/stiffness, patient is now. URI, sore throat, chest pain, palpitations, syncope, cough, shortness of breath, wheeze, dyspnea, abdominal pain, diarrhea, urinary retention, dysuria , hematuria, loss of control of bowel or bladder, numbness/tingling, saddle anesthesia, muscle paralysis/weakness, or rash. - ROS Notes: REVIEW OF SYSTEMS: CONSTITUTIONAL : Denies fever, chills, or sweats. Denies recent illness. EENT: Denies eye, ear, throat, or mouth pain or symptoms. Denies nasal or sinus congestion or discharge. Denies throat, tongue, or mouth swelling or difficulty swallowing. CARDIOVASCULAR: Denies chest pain. Denies palpitations or racing or irregular heart beat. Denies ankle edema. RESPIRATORY: Denies cough, cold, or chest congestion. Denies shortness of breath, difficulty breathing, or wheezing. GASTROINTESTINAL: see hpi GENITOURINARY: Denies difficulty urinating, painful urination, burning, frequency, blood in urine, or discharge. MUSCULOSKELETAL: see hpi SKIN: Denies rash, lesions or sores. NEUROLOGICAL: Denies confusion or altered mental status. Denies passing out or loss of consciousness. Denies dizziness or lightheadedness. Denies headache. Denies weakness or paralysis or loss of use of either side. Denies problems with gait or speech. Denies sensory loss, numbness, or tingling. ALL OTHER SYSTEMS REVIEWED AND NEGATIVE. Dictation was performed using [employer] voice recognition software - REPRODUCTIVE Reproductive: DENIES: : - DERM Skin Color: Normal Past Medical History - General Information source: Patient - Social History Smoking Status: Never Smoker Cigarette use (# per day): No Chew tobacco use (# tins/day): No Frequency of alcohol use: Rare Drug Abuse: None Lives with: Spouse/Significant other Family History: Arthritis, DM, Hypertension, Other - Sickle cell trait both parents and asthma - Past Medical History Cardiac Medical History: Reports: None Pulmonary Medical History: Reports: Hx Asthma, Hx Pneumonia Neurological Medical History: Reports: None Endocrine Medical History: Reports: None Renal/ Medical History: Reports: None. Denies: Hx Peritoneal Dialysis Malignancy Medical History: Reports None GI Medical History: Reports: None Musculoskeltal Medical History: Reports None Psychiatric Medical History: Reports: None Denies: Hx Depression Past Surgical History: Reports: Hx Abdominal Surgery - Gallstones removal, Hx Orthopedic Surgery - Fluid drained from right foot, Hx Vascular Surgery - Port placement. Denies: Hx Cholecystectomy - Immunizations Immunizations up to date: Yes Hx Diphtheria, Pertussis, Tetanus Vaccination: Yes Hx Pneumococcal Vaccination: 01/15/13 Vertical Provider Document - CONSTITUTIONAL Agree With Documented VS: Yes Notes: PHYSICAL EXAMINATION: GENERAL: Well-appearing, well-nourished and in no acute distress. HEAD: Atraumatic, normocephalic. EYES: Pupils equal round and reactive to light, extraocular movements intact, sclera anicteric, conjunctiva are normal. ENT: Nares patent and without discharge. oropharynx clear without exudates. No tonsilar hypertrophy or erythema. Moist mucous membranes. No sinus tenderness. NECK: Normal range of motion, supple without lymphadenopathy. No rigidity/ meningismus. LUNGS: Breath sounds clear to auscultation bilaterally and equal. No wheezes rales or rhonchi. HEART: Regular rate and rhythm without murmurs, rubs, gallops. ABDOMEN: Soft, nontender, nondistended abdomen. No guarding, no rebound. No masses appreciated. Normal bowel sounds present. No CVA tenderness bilaterally. No pulsatile mass. Musculoskeletal: LE's b/l: FROM to passive/active. Strength 5+/5. SLR neg. Back : FROM to passive/active. Strength 5+/5. Mild tenderness L-paraspinal. no vertebral pt tenderness. Extremities: No cyanosis, clubbing, or edema b/l. Peripheral pulses 2+. Capillary refill less than 3 seconds. NEUROLOGICAL: Cranial nerves grossly intact. Normal speech. Normal sensory, motor exams PSYCH: Normal mood, normal affect. SKIN: Warm, Dry, normal turgor, no rashes or lesions noted. - INFECTION CONTROL TRAVEL OUTSIDE OF THE [place] IN LAST 30 DAYS: No - RESPIRATORY O2 Sat by Pulse Oximetry: 98 Course - Re-evaluation Re-evalutation: 04/20/17 23:11 Patient is an afebrile, well-hydrated, 21-year-old male who presents the ED with sickle cell crisis. Vitals are stable. PE otherwise unremarkable at this time. CBC showed stable hemoglobin and a retic count of 7.2H. CBC showed bili of 2.1. UA unremarkable aside from bili in urine. Pt is sickling currently, but is not as severe as 2 weeks ago when he was admitted. Pt states that overall he feels much better and would like to be discharged. Pt was given fluids, 2mg hydromorphone x3, zofran, and 50mg benadryl. Pt is tolerating PO fluids. I will send him home with a Rx for zofran to take if needed. Conservative measures for symptoms otherwise. Recheck with Dr. Krueger in 2-3 days as well as his PCM Dr. Willis. Return to the ED with any worsening/ concerning symptoms otherwise as reviewed discharge. Patient is in agreement. - Vital Signs Vital signs: Temp Pulse Resp BP Pulse Ox 99.1 F 117 H 20 133/88 H 98 04/20/17 18:37 04/20/17 18:37 04/20/17 18:37 04/20/17 18:37 04/20/17 18:37 - Laboratory Result Diagrams: 04/20/17 20:20 04/20/17 20:20 Laboratory results interpreted by me: 04/20/17 19:48 Urine Bilirubin MODERATE H Ur Leukocyte Esterase TRACE H Discharge - Discharge Clinical Impression: Sickle cell crisis Condition: Stable Disposition: HOME, SELF-CARE Instructions: Sickle Cell Crisis ([facility]) Additional Instructions: Maintain adequate fluid intake tylenol/ibuprofen as needed Monitor symptoms closely Recheck with your PCM in 2-3 days Recheck with your Burial Vault Setter in 2-3 days Return to the ED with any worsening symptoms and/or development of fever, headache, changes in speech/mentation/behavior/vision, chest pain, palpitations , syncope, shortness of breath, trouble breathing, abdominal pain, n/v/d, blood in stool/urine, loss of control of bowel/bladder, urinary retention, muscle weakness/paralysis, numbness/tingling, or other worsening symptoms that are concerning to you. Prescriptions: Ondansetron [Zofran Odt 4 mg Tablet] 1 - 2 tab PO Q4H PRN #15 tab.rapdis PRN Reason: For Nausea/Vomiting Forms: Elevated Blood Pressure Referrals: GITA KRUEGER MD [ACTIVE STAFF] - 04/22/17 ANDREW WILLIS MD [ACTIVE STAFF] - 04/29/17
[2017-04-20 20:40] LABS: HEMATOCRIT 35.1 % (37.9-51.0); HEMOGLOBIN 11.9 g/dL (13.5-17.0); HGB HCT DIFFERENCE 0.6; MEAN CORPUSCULAR HEMOGLOBIN 41.7 pg (27.0-33.4); MEAN CORPUSCULAR HGB CONC 33.9 g/dL (32.0-36.0); MEAN CORPUSCULAR VOLUME 123 fl (80-97); RED BLOOD COUNT 2.86 10^6/uL (4.35-5.55); RED CELL DISTRIBUTION WIDTH 23.3 % (11.5-14.0); WHITE BLOOD COUNT 3.6 10^3/uL (4.0-10.5)
[2017-04-20 20:57] LABS: ALANINE AMINOTRANSFERASE 26 U/L (21-72); ALBUMIN 4.7 g/dL (3.5-5.0); ALKALINE PHOSPHATASE 126 U/L (38-126); ANION GAP 10 (5-19); ASPARTATE AMINO TRANSFERASE 50 U/L (17-59); BILIRUBIN,TOTAL 2.1 mg/dL (0.2-1.3); BLOOD UREA NITROGEN 12 mg/dL (7-20); CALCIUM 9.4 mg/dL (8.4-10.2); CARBON DIOXIDE 25 mmol/L (22-30); CHLORIDE 111 mmol/L (98-107); CREATININE RESULT 0.79 mg/dL (0.52-1.25); GLUCOSE 76 mg/dL (75-110); POTASSIUM 4.6 mmol/L (3.6-5.0); TOTAL PROTEIN 8.8 g/dL (6.3-8.2)
[2017-04-20 21:01] LABS: BASOPHILS % (MANUAL) 0 % (0-2); EOSINOPHILS % (MANUAL) 1 % (0-6); LYMPHOCYTES % (MANUAL) 26 % (13-45); NUCLEATED RED BLOOD CELLS 17 /100 WBC (0); TOTAL CELLS COUNTED 100
[2017-04-20 21:06] LABS: ANISOCYTOSIS 3+; POIKILOCYTOSIS 1+
[2017-04-20 21:07] LABS: HOWELL-JOLLY BODIES PRESENT; OVALOCYTES SLIGHT; POLYCHROMASIA 2+; SCHISTOCYTES SLIGHT; TARGET CELLS 1+
[2017-04-21 00:02] VITALS: BP 129/88
== END 2017-04-21 00:01 | disposition home or self-care (01) ==
LOC: ER 18:35
DX: D57.00 Hb-SS disease with crisis, unspecified (principal); J45.909 Unspecified asthma, uncomplicated
CPT/HCPCS: 96376; 99284; 96361; 96374; 96375; 36415; 85025; 85045; 80053; 81001; J1200; J1170; J2405; J7030

== ENCOUNTER 2017-04-22 10:30 | Emergency (ER) | payer MEDICAID ==
[2017-04-22] MEDS ORDERED: NORMAL SALINE 1000 ML 1,000 ML IV ONE (11:11)
--- NOTE | 2017-04-22 11:21 | ER Document Report ---
ED General - General Mode of Arrival: Wheelchair Information source: Patient TRAVEL OUTSIDE OF THE [place] IN LAST 30 DAYS: No - HPI Onset: Other - Refer to notes Similar symptoms previously: Yes Recently seen / treated by doctor: Yes <GALEN TREADWELL - Last Filed: 04/22/17 18:30> <[email or web address] - Last Filed: 04/22/17 19:33> - General Chief Complaint: Sickle Cell Crisis Stated Complaint: BODY PAIN/CHEST PAIN Time Seen by Provider: 04/22/17 11:20 Notes: Patient is a 21-year-old male presenting to the emergency department for sickle cell symptoms. Patient states that she started feeling symptoms 2 days ago when he was seen in the emergency department. Patient received 6 mg of Dilaudid IV at this time and was discharged. Patient returns today for sickle cell pain and some bloody stool. Patient states that he was trying to manage his pain at home with his 15 mg of oxycodone. Patient states he started getting chest pain, nausea, and bloody stool so he wanted to be evaluated in the emergency department. Patient states the blood was in his stool, not when he wiped and he was not straining. Patient denies any shortness of breath or cough. Patient is being followed by Dr. Carlos. Patient states he has seen Dr. Carlos after he was seen in the emergency department on 04/14/2017. Today' s the patient's third visit in 9 days. Patient also has history of asthma. Patient has a history of blood transfusions but has not had one recently. ( GALEN TREADWELL) - Related Data Allergies/Adverse Reactions: Coconut * [Coconut] Allergy (Mild, Verified 04/20/17 19:18) transpore tape Allergy (Mild, Uncoded 04/20/17 19:18) Hives Past Medical History - General Information source: Patient - Social History Smoking Status: Never Smoker Cigarette use (# per day): No Chew tobacco use (# tins/day): No Smoking Education Provided: No Frequency of alcohol use: None Drug Abuse: None Family History: Arthritis, DM, Hypertension, Other - Sickle cell trait both parents and asthma Pulmonary Medical History: Reports: Hx Asthma, Hx Pneumonia Past Surgical History: Reports: Hx Abdominal Surgery - Gallstones removal, Hx Orthopedic Surgery - Fluid drained from right foot, Hx Vascular Surgery - Port placement - Immunizations Immunizations up to date: Yes Hx Diphtheria, Pertussis, Tetanus Vaccination: Yes Hx Pneumococcal Vaccination: 01/15/13 <GALEN TREADWELL - Last Filed: 04/22/17 18:30> Review of Systems - Review of Systems Constitutional: No symptoms reported EENT: No symptoms reported Cardiovascular: See HPI, Chest pain Respiratory: No symptoms reported. denies: Cough Gastrointestinal: See HPI, Nausea, Rectal bleeding Genitourinary: No symptoms reported Male Genitourinary: No symptoms reported Musculoskeletal: No symptoms reported Skin: No symptoms reported Hematologic/Lymphatic: See HPI Neurological/Psychological: No symptoms reported -: Yes All other systems reviewed and negative <EBENGALEN - Last Filed: 04/22/17 18:30> Physical Exam - Vital signs Interpretation: Normal <GALEN TREADWELL - Last Filed: 04/22/17 18:30> <CRYSTAL HARVEY - Last Filed: 04/22/17 19:33> - Vital signs Vitals: Temp Pulse BP Pulse Ox 98.3 F 103 H 130/86 H 96 04/22/17 10:41 04/22/17 10:41 04/22/17 10:41 04/22/17 10:41 - Notes Notes: GENERAL: Alert, interacts well. No acute distress. HEAD: Normocephalic, atraumatic. EYES: Appear normal. Pupils equal, round, and reactive to light. ENT: Moist mucus membranes, tongue midline. NECK: Full range of motion. Supple. Trachea midline. LUNGS: Clear to auscultation bilaterally, no wheezes, rales, or rhonchi. No respiratory distress. HEART: Regular rate and rhythm. No murmurs, gallops, or rubs. ABDOMEN: Soft, non-tender. Non-distended. Normal bowel sounds. RECTAL: Normal rectal tone. No gross blood. Brown stool. EXTREMITIES: Moves all 4 extremities spontaneously. Normal strength. No edema. NEUROLOGICAL: Alert and oriented x3. Normal speech. No focal neurological deficits. GSC 15. PSYCH: Normal affect, normal mood. SKIN: Warm, dry, normal turgor. No rashes or lesions noted. (GALEN TREADWELL) Course - Laboratory Result Diagrams: 04/22/17 12:45 04/22/17 12:45 - Consults Dr. Carlos Time consulted: 13:32 <GALEN TREADWELL - Last Filed: 04/22/17 18:30> - Laboratory Result Diagrams: 04/22/17 12:45 04/22/17 12:45 <CRYSTAL HARVEY - Last Filed: 04/22/17 19:33> - Re-evaluation Re-evalutation: 04/22/17 13:50 Patient with history of sickle cell disorder and sickle cell crisis previously recent ED visits pain not controlled discharged home 2 days ago. Has not seen Dr. Carlos in 2 weeks who is his epic kaleidoscope analyst. Patient states he developed a little pain in his chest today while pain in his knee and had some blood in his stool. On examination he is well-appearing nontoxic in no acute distress no reproducible chest wall tenderness lungs are clear is not hypoxic no shortness of breath tachypnea or tachycardia. EKG is stable chest x-ray is nonacute. Abdomen is soft no acute abdominal findings. Joints are not red hot or swollen he is afebrile not tachycardic or signs of sepsis. He is complaining of no vomiting or urinary symptoms. Mental status is normal. Reticulocyte count compared to 2 days ago significantly improved as well as normal and stable hemoglobin hematocrit. I talked to Dr. Carlos and she states that she wants him to come directly to the office to change his pain medication so he can be managed better as an outpatient rather than multiple incremental doses of IV Dilaudid in the emergency department. He verbalizes an understanding of the states he is going to go directly over the right now. I discussed with him reasons for ED return sooner (CRYSTAL HARVEY) - Vital Signs Vital signs: Temp Pulse Resp BP Pulse Ox 98.3 F 103 H 18 116/75 100 04/22/17 10:41 04/22/17 10:41 04/22/17 13:14 04/22/17 12:00 04/22/17 13:14 - Laboratory Laboratory results interpreted by me: 04/22/17 04/22/17 12:45 12:55 WBC 3.4 L RBC 2.87 L Hgb 12.0 L Hct 35.1 L MCV 122 H MCH 41.8 H RDW 21.3 H Retic Count (auto) 5.35 H Absolute Retic 0.154 H Urine Ketones TRACE H Urine Blood SMALL H Ur Leukocyte Esterase TRACE H - Consults Dr. Carlos Reason for consultation: 04/22/17 13:[address] Carlos about patient's labs and imaging. Dr. Carlos would like to see the patient in her office today. (GALEN TREADWELL) Discharge <GALEN TREADWELL - Last Filed: 04/22/17 18:30> <CRYSTAL HARVEY - Last Filed: 04/22/17 19:33> - Discharge Clinical Impression: Sickle cell disease Qualifiers: Sickle-cell associated disorders: without crisis Qualified Code(s): D57.1 - Sickle-cell disease without crisis Condition: Stable Disposition: HOME, SELF-CARE Additional Instructions: Sickle Cell disease This hemoglobin can deform red blood cells into a sickle shape. These abnormal blood cells can block blood vessels. This causes the pain of sickle cell crisis. Sickle cell crisis can occur any time. But attacks are more likely with acute infection, dehydration, or altitude change. A crisis usually causes pain in the legs, back, abdomen, and chest. Sometimes the pain may ease and return later. The usual treatment is oxygen, pain medication, IV fluids, and treatment of infection. Attacks may take a couple of days to resolve. Return if the pain becomes more severe, or if there are new symptoms. Referrals: ANDREW WILLIS MD [Primary Care Provider] - (I spoke with Dr. Carlos and she wants you to come to the office right now.) Scribe Attestation: 04/22/17 13:48 I personally performed the services described in the documentation reviewed the documentation recorded by my scribe in my presence and it accurately and completely records my words and actions (CRYSTAL HARVEY) Scribe Documentation - Scribe Written by Bozena:: Bozena Hernandez, 04/22/2017 12:03 acting as scribe for :: Wes <GALEN TREADWELL - Last Filed: 04/22/17 18:30>
--- NOTE | 2017-04-22 12:25 | RADIOLOGY REPORT (SQ) ---
EXAM DESCRIPTION: CHEST SINGLE VIEW COMPLETED DATE/TIME: 04/22/2017 11:22 am REASON FOR STUDY: chest pain COMPARISON: 04/03/2017 EXAM PARAMETERS: NUMBER OF VIEWS: One view. TECHNIQUE: Single frontal radiographic view of the chest acquired. RADIATION DOSE: NA LIMITATIONS: None. FINDINGS: LUNGS AND PLEURA: No opacities, masses or pneumothorax. No pleural effusion. MEDIASTINUM AND HILAR STRUCTURES: No masses. Contour normal. HEART AND VASCULAR STRUCTURES: Heart normal in size. Normal vasculature. BONES: The previously described bony findings consistent with sickle cell are again identified. HARDWARE: On the current study the PICC line is identified with its tip extending superiorly presumab ly within the internal jugular vein. OTHER: No other significant finding. IMPRESSION: No acute consolidations or pleural effusions. On the current study the PICC line is geovanny ntified with its tip extending superiorly presumably within the internal jugular vein. Other finding s as noted above TECHNICAL DOCUMENTATION: JOB ID: [id number]
[2017-04-22] MEDS ORDERED: KETOROLAC TROMETHAMINE 60 MG/2 ML SDV IM ONE (12:33)
[2017-04-22] MEDS ORDERED: OXYCODONE-ACETAMINOPHEN 5-325 MG TABLET PO ONE (12:35)
[2017-04-22 13:09] LABS: HEMATOCRIT 35.1 % (37.9-51.0); HGB HCT DIFFERENCE 0.9; MEAN CORPUSCULAR HEMOGLOBIN 41.8 pg (27.0-33.4); MEAN CORPUSCULAR HGB CONC 34.2 g/dL (32.0-36.0); MEAN CORPUSCULAR VOLUME 122 fl (80-97); RED BLOOD COUNT 2.87 10^6/uL (4.35-5.55); RED CELL DISTRIBUTION WIDTH 21.3 % (11.5-14.0); WHITE BLOOD COUNT 3.4 10^3/uL (4.0-10.5)
[2017-04-22 13:12] LABS: APPEARANCE,URINE CLEAR; BILIRUBIN,URINE NEGATIVE (NEGATIVE); GLUCOSE, URINE NEGATIVE (NEGATIVE); KETONES,URINE TRACE mg/dL (NEGATIVE); LEUKOCYTE ESTERASE,URINE TRACE (NEGATIVE); NITRITE,URINE NEGATIVE (NEGATIVE); PROTEIN,URINE NEGATIVE (NEGATIVE); URINE SPECIFIC GRAVITY 1.006; UROBILINOGEN,URINE NEGATIVE mg/dL (<2.0)
[2017-04-22 13:26] LABS: ANION GAP 14 (5-19); BLOOD UREA NITROGEN 11 mg/dL (7-20); CALCIUM 10.1 mg/dL (8.4-10.2); CARBON DIOXIDE 23 mmol/L (22-30); CHLORIDE 105 mmol/L (98-107); CREATININE RESULT 0.79 mg/dL (0.52-1.25); GLUCOSE 93 mg/dL (75-110); POTASSIUM 4.5 mmol/L (3.6-5.0); SODIUM 142.2 mmol/L (137-145)
[2017-04-22 13:31] LABS: URINE BARBITURATES SCREEN NEGATIVE; URINE METHADONE SCREEN NEGATIVE; URINE OPIATES LOW NEGATIVE; URINE PHENCYCLIDINE SCREEN NEGATIVE
[2017-04-22 13:36] LABS: BASOPHILS % (MANUAL) 1 % (0-2); EOSINOPHILS % (MANUAL) 0 % (0-6); LYMPHOCYTES % (MANUAL) 29 % (13-45); NUCLEATED RED BLOOD CELLS 16 /100 WBC (0); TOTAL CELLS COUNTED 100
[2017-04-22 13:37] LABS: ANISOCYTOSIS 2+; HOWELL-JOLLY BODIES PRESENT; HYPOCHROMASIA 2+; OVALOCYTES 2+; POIKILOCYTOSIS 2+; POLYCHROMASIA 2+; SCHISTOCYTES SLIGHT; TARGET CELLS 1+
[2017-04-22 13:38] LABS: PLATELET CLUMPS PRESENT
[2017-04-22 13:39] LABS: TOXIC GRANULATION 1+
[2017-04-22 14:06] VITALS: BP 116/75
== END 2017-04-22 14:06 | disposition home or self-care (01) ==
LOC: ER 10:30
DX: D57.1 Sickle-cell disease without crisis (principal); M79.1 Myalgia; R07.9 Chest pain, unspecified; R11.0 Nausea; K62.5 Hemorrhage of anus and rectum
CPT/HCPCS: 99284; 96361; 96374; 36415; 85025; 82272; 85045; 80048; 81001; 84484; 80307; 71010; J1885; J7030

== ENCOUNTER 2017-05-13 15:24 | Inpatient (IN) | payer MEDICAID ==
[2017-05-13] MEDS ORDERED: DIPHENHYDRAMINE HCL 50 MG/ML VIAL IV ONE (15:56)
[2017-05-13] MEDS ORDERED: HYDROMORPHONE HCL INJ/PF 2 MG/ML AMPULE IV ONE ×3 (15:56→21:46)
--- NOTE | 2017-05-13 16:46 | ER Document Report ---
ED Medical Screen (RME) - General Chief Complaint: Sickle Cell Crisis Stated Complaint: CHEST,KNEE,BACK PAIN Time Seen by Provider: 05/13/17 15:54 Mode of Arrival: Ambulatory Information source: Patient Notes: 21-year-old male presents to ED for complaint of chest knee and back pain. He states this is his normal sickle cell pain. States he has no other symptoms. He denies smoking or drinking. I have greeted and performed a rapid initial assessment of this patient. A comprehensive ED assessment and evaluation of the patient, analysis of test results and completion of medical decision making process will be conducted by an additional ED providers. TRAVEL OUTSIDE OF THE [place] IN LAST 30 DAYS: No - Related Data Allergies/Adverse Reactions: Coconut * [Coconut] Allergy (Mild, Verified 05/13/17 15:45) transpore tape Allergy (Mild, Uncoded 05/13/17 15:45) Hives Past Medical History - Social History Family history: None Pulmonary Medical History: Reports: Hx Asthma, Hx Pneumonia Renal/ Medical History: Denies: Hx Peritoneal Dialysis Psychiatric Medical History: Denies: Hx Depression Past Surgical History: Reports: Hx Abdominal Surgery - Gallstones removal, Hx Orthopedic Surgery - Fluid drained from right foot, Hx Vascular Surgery - Port placement. Denies: Hx Cholecystectomy - Immunizations Immunizations up to date: Yes Hx Diphtheria, Pertussis, Tetanus Vaccination: Yes Physical Exam - Vital signs Vitals: Temp Pulse Resp BP Pulse Ox 98.5 F 88 18 134/68 H 96 05/13/17 15:43 05/13/17 15:43 05/13/17 15:43 05/13/17 15:43 05/13/17 15:43 Course - Vital Signs Vital signs: Temp Pulse Resp BP Pulse Ox 98.5 F 88 18 134/68 H 96 05/13/17 15:43 05/13/17 15:43 05/13/17 15:43 05/13/17 15:43 05/13/17 15:43
[2017-05-13] MEDS ORDERED: ONDANSETRON 4 MG TAB.RAPDIS SL ONE (16:49)
--- NOTE | 2017-05-13 17:07 | RADIOLOGY REPORT (SQ) ---
EXAM DESCRIPTION: CHEST PA/LAT COMPLETED DATE/TIME: 05/13/2017 4:57 pm REASON FOR STUDY: cp COMPARISON: 04/03/2017 EXAM PARAMETERS: NUMBER OF VIEWS: two views TECHNIQUE: Digital Frontal and Lateral radiographic views of the chest acquired. RADIATION DOSE: NA LIMITATIONS: none FINDINGS: LUNGS AND PLEURA: No opacities, masses or pneumothorax. No pleural effusion. Central line remains in place. MEDIASTINUM AND HILAR STRUCTURES: No masses or contour abnormalities. HEART AND VASCULAR STRUCTURES: Heart normal size. No evidence for failure. BONES: Unchanged from prior exam. HARDWARE: None in the chest. OTHER: No other significant finding. IMPRESSION: NO SIGNIFICANT RADIOGRAPHIC FINDING IN THE CHEST. TECHNICAL DOCUMENTATION: JOB ID: [id number] [employer]- All Rights Reserved
[2017-05-13] MEDS: NORMAL SALINE 1000 ML 1,000 ML IV PRN ×2 (17:39→20:43)
[2017-05-13 17:59] LABS: ABSOLUTE LYMPHOCYTES (AUTO) 1.2 10^3/uL (0.5-4.7); ABSOLUTE MONOCYTES (AUTO) 0.2 10^3/uL (0.1-1.4); ABSOLUTE NEUT (AUTO) 2.8 10^3/uL (1.7-8.2); BASOPHILS % (AUTO) 0.3 % (0-2); EOSINOPHILS % (AUTO) 0.9 % (0-6); HEMATOCRIT 34.2 % (37.9-51.0); HEMOGLOBIN 11.5 g/dL (13.5-17.0); HGB HCT DIFFERENCE 0.3; LYMPHOCYTES % (AUTO) 28.1 % (13-45); MEAN CORPUSCULAR HGB CONC 33.5 g/dL (32.0-36.0); MEAN CORPUSCULAR VOLUME 122 fl (80-97); MONOCYTES % (AUTO) 4.7 % (3-13); RED CELL DISTRIBUTION WIDTH 21.8 % (11.5-14.0); WHITE BLOOD COUNT 4.3 10^3/uL (4.0-10.5)
[2017-05-13 18:22] LABS: ALANINE AMINOTRANSFERASE 28 U/L (21-72); ALBUMIN 4.9 g/dL (3.5-5.0); ALKALINE PHOSPHATASE 121 U/L (38-126); ANION GAP 12 (5-19); ANISOCYTOSIS 3+; ASPARTATE AMINO TRANSFERASE 49 U/L (17-59); BILIRUBIN,DIRECT 0.5 mg/dL (0.0-0.4); BILIRUBIN,TOTAL 2.1 mg/dL (0.2-1.3); BLOOD UREA NITROGEN 11 mg/dL (7-20); CALCIUM 9.9 mg/dL (8.4-10.2); CARBON DIOXIDE 26 mmol/L (22-30); CHLORIDE 106 mmol/L (98-107); CREATININE RESULT 0.68 mg/dL (0.52-1.25); GLUCOSE 100 mg/dL (75-110); HOWELL-JOLLY BODIES PRESENT; OVALOCYTES 1+; POIKILOCYTOSIS 2+; POLYCHROMASIA 2+; POTASSIUM 4.1 mmol/L (3.6-5.0); SCHISTOCYTES 1+; SODIUM 143.6 mmol/L (137-145); TARGET CELLS 2+; TOTAL PROTEIN 8.6 g/dL (6.3-8.2)
--- NOTE | 2017-05-13 21:03 | ER Document Report ---
ED General - General Mode of Arrival: Ambulatory Information source: Patient TRAVEL OUTSIDE OF THE [place] IN LAST 30 DAYS: No <MEDINA MOSQUEDA - Last Filed: 05/13/17 23:59> <HILARIO AVALOS - Last Filed: 05/14/17 00:03> - General Chief Complaint: Sickle Cell Crisis Stated Complaint: CHEST,KNEE,BACK PAIN Time Seen by Provider: 05/13/17 15:54 Notes: Patient is a 21-year-old female who presents to the emergency department today with complaints of lower back pain, right knee pain, and chest pain. Patient has a history of sickle cell disease and is frequently seen in this emergency department for sickle cell flareups. Patient denies any fevers, cough, or other symptoms. Patient states his symptoms today are consistent with a normal sickle cell flare. (MEDINA MOSQUEDA) - Related Data Allergies/Adverse Reactions: Coconut * [Coconut] Allergy (Mild, Verified 05/13/17 23:53) transpore tape Allergy (Mild, Uncoded 05/13/17 15:45) Hives Home Medications: Current Home Medications Hydroxyurea [Hydrea 500 Mg Capsule] 2 cap PO DAILY 05/13/17 [History] Past Medical History - General Information source: Patient - Social History Smoking Status: Never Smoker Cigarette use (# per day): No Chew tobacco use (# tins/day): No Frequency of alcohol use: None Drug Abuse: None Lives with: Family Family History: Reviewed & Not Pertinent, Arthritis, DM, Hypertension, Other - Sickle cell trait both parents and asthma Pulmonary Medical History: Reports: Hx Asthma, Hx Pneumonia Past Surgical History: Reports: Hx Abdominal Surgery - Gallstones removal, Hx Orthopedic Surgery - Fluid drained from right foot, Hx Vascular Surgery - Port placement - Immunizations Immunizations up to date: Yes Hx Diphtheria, Pertussis, Tetanus Vaccination: Yes Hx Pneumococcal Vaccination: 01/15/13 <MEDINA MOSQUEDA - Last Filed: 05/13/17 23:59> <HILARIO AVALOS - Last Filed: 05/14/17 00:03> - Medical History Notes: Sickle cell (MEDINA MOSQUEDA) Review of Systems - Review of Systems Constitutional: denies: Fever EENT: No symptoms reported Cardiovascular: No symptoms reported Respiratory: No symptoms reported Gastrointestinal: No symptoms reported Genitourinary: No symptoms reported Male Genitourinary: No symptoms reported Musculoskeletal: See HPI, Other - Lower back pain, right knee pain, chest pain Skin: No symptoms reported Hematologic/Lymphatic: No symptoms reported Neurological/Psychological: No symptoms reported -: Yes All other systems reviewed and negative <MEDINA MOSQUEDA - Last Filed: 05/13/17 23:59> Physical Exam <MEDINA MOSQUEDA - Last Filed: 05/13/17 23:59> <HILARIO AVALOS - Last Filed: 05/14/17 00:03> - Vital signs Vitals: Temp Pulse Resp BP Pulse Ox 98.5 F 88 18 134/68 H 96 05/13/17 15:43 05/13/17 15:43 05/13/17 15:43 05/13/17 15:43 05/13/17 15:43 - Notes Notes: Physical Exam: General: Alert, appears uncomfortable. HEENT: Normocephalic. Atraumatic. PERRL. Extraocular movements intact. Oropharynx clear. Neck: Supple. Non-tender. Respiratory: No respiratory distress. Clear and equal breath sounds bilaterally. Cardiovascular: Tachycardic. Abdominal: Normal Inspection. Non-tender. No distension. Normal Bowel Sounds. Back: Non-tender. No deformity or step off. Extremities: Moves all four extremities. Upper extremities: Normal inspection. Normal ROM. Lower extremities: Normal inspection. No edema. Normal ROM. Neurological: Normal cognition. AAOx4. Normal speech. Psychological: Normal affect. Normal Mood. Skin: Warm. Dry. Normal color. (MEDINA MOSQUEDA) Course - Laboratory Result Diagrams: 05/13/17 17:25 05/13/17 17:25 <MEDINA MOSQUEDA - Last Filed: 05/13/17 23:59> - Laboratory Result Diagrams: 05/13/17 17:25 05/13/17 17:25 <HILARIO AVALOS - Last Filed: 05/14/17 00:03> - Re-evaluation Re-evalutation: Patient with persistent pain despite Dilaudid fluids, and oxygen. No evidence for infection. Discussed with Dr. Stanton who will admit patient for pain control. Stable at time of admission. Patient agrees with plan. (HILARIO AVALOS) - Vital Signs Vital signs: Temp Pulse Resp BP Pulse Ox 98.3 F 88 16 119/71 100 05/13/17 20:45 05/13/17 15:43 05/13/17 23:01 05/13/17 23:01 05/13/17 23:01 - Laboratory Laboratory results interpreted by me: 05/13/17 05/13/17 17:25 17:25 RBC 2.80 L Hgb 11.5 L Hct 34.2 L MCV 122 H MCH 41.0 H RDW 21.8 H Retic Count (auto) 4.08 H Total Bilirubin 2.1 H Direct Bilirubin 0.5 H Total Protein 8.6 H Discharge <MEDINA MOSQUEDA - Last Filed: 05/13/17 23:59> - Discharge Admitting Provider: Maximino Unit Admitted: Medical Floor <HILARIO AVALOS - Last Filed: 05/14/17 00:03> - Discharge Clinical Impression: Sickle cell crisis Sickle cell anemia Qualifiers: Sickle-cell associated disorders: with unspecified crisis Qualified Code(s): D57.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 (HILARIO AVALOS) Scribe Documentation - Scribe Written by Bozena:: Bozena Meneses, 05/13/2017 2329 acting as scribe for :: Fantasma <MEDINA MOSQUEDA - Last Filed: 05/13/17 23:59>
[2017-05-13] MEDS ORDERED: 1/2 NORMAL SALINE 1,000 ML IV ONE (22:06)
[2017-05-14 01:33] LABS: APPEARANCE,URINE CLEAR; BILIRUBIN,URINE NEGATIVE (NEGATIVE); GLUCOSE, URINE NEGATIVE (NEGATIVE); KETONES,URINE NEGATIVE (NEGATIVE); LEUKOCYTE ESTERASE,URINE NEGATIVE (NEGATIVE); NITRITE,URINE NEGATIVE (NEGATIVE); PROTEIN,URINE NEGATIVE (NEGATIVE); URINE SPECIFIC GRAVITY 1.004; UROBILINOGEN,URINE NEGATIVE mg/dL (<2.0)
[2017-05-14] MEDS: NORMAL SALINE 1000 ML 1,000 ML IV PRN ×2 (01:50→12:00)
[2017-05-14] MEDS: HYDROMORPHONE HCL INJ/PF 2 MG/ML AMPULE IV PRN ×11 (01:50→22:40)
[2017-05-14] MEDS ORDERED: ALBUTEROL SULFATE HFA (90 MCG/PUFF) 200 PUFF/8.5 GM MDI IH PRN (17:36)
--- NOTE | 2017-05-14 17:36 | PDOC H&P ---
History of Present Illness Admission Date/PCP: 05/14/17 02:11 ANDREW WILLSI MD Patient complains of: Knee and back pain History of Present Illness: MARINO POZO is a 21 year old male known to my practice with history of Sickle Cell Disease frequent flare ups and admission to the hospital for hydration and pain control. He presented to the ED with 2 days history of worsening lower back and knee joints aches and pain that resulted in his coming to the ED. Patient is on opiate pain management regimen at home that he claimed was ineffective in controlling his pain. Patient reported development of knee joint swelling, particularly left knee. He denied any associated fall, trauma or injury prior to presentation. He denied any fever, chills, headache or dizziness. His morbidities include SCD and Asthma. Past Medical History Pulmonary Medical History: Reports: Asthma, Pneumonia Psychiatric Medical History: Denies: Depression Hematology: Reports: Anemia, Sickle Cell Disease, Bleeding Tendencies Past Surgical History Past Surgical History: Reports: Orthopedic Surgery - Fluid drained from right foot, Vascular Surgery - Port placement Denies: Cholecystectomy Social History Lives with: Family Smoking Status: Never Smoker Frequency of Alcohol Use: None Hx Recreational Drug Use: No Drugs: None Hx Prescription Drug Abuse: No - Advance Directive Resuscitation Status: Full Code Family History Family History: Reviewed & Not Pertinent, Arthritis, DM, Hypertension, Other - Sickle cell trait both parents and asthma Parental Family History Reviewed: Yes Children Family History Reviewed: Yes Sibling(s) Family History Reviewed.: Yes Medication/Allergy Home Medications: Albuterol Sulfate [Proair HFA Inhalation Aerosol 8.5 gm MDI] 2 puff IH Q4HP PRN 05/14/17 Fentanyl [Duragesic 100 Mcg/Hr Transdermal Patch] 1 patch TOP Q3D 05/14/17 Folic Acid [Folvite 1 mg Tablet] 1 mg PO DAILY 05/14/17 Hydroxyurea [Hydrea 500 mg Capsule] 1,000 mg PO DAILY 05/14/17 Oxycodone HCl [Oxy-Ir 5 mg Tablet] 5 mg PO Q4HP PRN 05/14/17 Allergies/Adverse Reactions: Coconut * [Coconut] Allergy (Mild, Verified 05/13/17 23:53) transpore tape Allergy (Mild, Uncoded 05/13/17 15:45) Hives Review of Systems Constitutional: ABSENT: chills, fever(s), headache(s), weight gain, weight loss Eyes: ABSENT: visual disturbances Ears: ABSENT: hearing changes Nose, Mouth, and Throat: ABSENT: as per HPI, headache(s), mouth pain, sore throat, vertigo, other Cardiovascular: ABSENT: chest pain, dyspnea on exertion, edema, orthropnea, palpitations Gastrointestinal: ABSENT: abdominal pain, constipation, diarrhea, hematemesis, hematochezia, nausea, vomiting Genitourinary: ABSENT: dysuria, hematuria Musculoskeletal: PRESENT: back pain, joint swelling - knee joints Integumentary: ABSENT: rash, wounds Neurological: ABSENT: abnormal gait, abnormal speech, confusion, dizziness, focal weakness, syncope Psychiatric: ABSENT: anxiety, depression, homidical ideation, suicidal ideation Endocrine: ABSENT: cold intolerance, heat intolerance, polydipsia, polyuria Hematologic/Lymphatic: ABSENT: easy bleeding, easy bruising, lymphadenopathy Allergic/Immunologic: ABSENT: seasonal rhinorrhea Physical Exam Vital Signs: Temp Pulse Resp BP Pulse Ox 98.4 F 81 13 118/69 100 05/14/17 13:00 05/14/17 13:00 05/14/17 13:00 05/14/17 13:00 05/14/17 13:00 Intake & Output 05/13/17 05/14/17 05/15/17 06:59 06:59 06:59 Intake Total 1030 Balance 1030 General appearance: PRESENT: mild distress - due to pain Head exam: PRESENT: atraumatic, normocephalic Eye exam: PRESENT: conjunctiva pink, EOMI, PERRLA. ABSENT: scleral icterus Ear exam: PRESENT: normal external ear exam Mouth exam: PRESENT: moist Throat exam: ABSENT: post pharyngeal erythema, tonsillar erythema, tonsillar exudate, tonsillogmegaly, other Neck exam: PRESENT: full ROM. ABSENT: carotid bruit, JVD, lymphadenopathy, thyromegaly Respiratory exam: PRESENT: clear to auscultation ethan Cardiovascular exam: PRESENT: RRR. ABSENT: diastolic murmur, rubs, systolic murmur Vascular exam: PRESENT: normal capillary refill. ABSENT: pallor GI/Abdominal exam: PRESENT: normal bowel sounds, soft. ABSENT: distended, guarding, mass, organolmegaly, rebound, tenderness Rectal exam: PRESENT: deferred Extremities exam: PRESENT: joint swelling - minimal left knee joint, tenderness - multiple sites includfing lower back and bilateral knee joints Musculoskeletal exam: PRESENT: tenderness - lower back and both knee joints Neurological exam: PRESENT: alert, awake, oriented to person, oriented to place , oriented to time, oriented to situation, CN II-XII grossly intact. ABSENT: motor sensory deficit Psychiatric exam: PRESENT: appropriate affect, normal mood. ABSENT: homicidal ideation, suicidal ideation Skin exam: PRESENT: dry, intact, warm. ABSENT: cyanosis, rash Results Impressions: Chest X-Ray 05/13/17 15:56 IMPRESSION: NO SIGNIFICANT RADIOGRAPHIC FINDING IN THE CHEST. Assessment & Plan - Diagnosis (1) Sickle cell disease with crisis Is this a current diagnosis for this admission?: Yes Plan: See admitting physician orders. (2) Swelling of both knees Is this a current diagnosis for this admission?: Yes Plan: See admitting physician orders. (3) Asthma Qualifiers: Asthma severity: mild intermittent Asthma complication type: uncomplicated Qualified Code(s): J45.20 - Mild intermittent asthma, uncomplicated Is this a current diagnosis for this admission?: Yes Plan: See admitting physician orders. - Time Time Spent: 50 to 70 Minutes Medications reviewed and adjusted accordingly: Yes Anticipated discharge: Home Within: Other - Inpatient Certification Based on my medical assessment, after consideration of the patient's comorbidities, presenting symptoms, or acuity I expect that the services needed warrant INPATIENT care.: Yes I certify that my determination is in accordance with my understanding of Medicare's requirements for reasonable and necessary INPATIENT services [42 CFR 412.3e].: Yes Medical Necessity: Need Close Monitoring Due to Risk of Patient Decompensation, Need For IV Fluids, Need for Pain Control, Risk of Complication if Not Cared For in Hospital 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
--- NOTE | 2017-05-14 19:04 | RADIOLOGY REPORT (SQ) ---
EXAM DESCRIPTION: KNEE BILATERAL 1-2 VIEWS COMPLETED DATE/TIME: 05/14/2017 6:52 pm REASON FOR STUDY: Knee swelling lf > rt; Hx lf knee osteonecrosis COMPARISON: 12/04/2016 NUMBER OF VIEWS: Two views. TECHNIQUE: AP and lateral radiographic images acquired of the right and left knee. LIMITATIONS: None. FINDINGS: MINERALIZATION: There is diffuse sclerosis bilaterally. BONES: No acute fracture or dislocation. No worrisome bone lesions. No significant osteophytes. JOINT: No effusion. No chondrocalcinosis. OTHER: No other significant finding. IMPRESSION: Diffuse sclerosis involving the distal right and left femurs as well as the proximal tib ias. Findings are stable from 12/04/2016 a consistent with a history of sickle-cell. TECHNICAL DOCUMENTATION: JOB ID: [id number] [employer]- All Rights Reserved
[2017-05-15] MEDS: HYDROMORPHONE HCL INJ/PF 2 MG/ML AMPULE IV PRN ×12 (00:29→23:06)
[2017-05-15 06:56] LABS: ABSOLUTE BASOPHILS # (AUTO) 0.1 10^3/uL (0.0-0.2); ABSOLUTE EOSINOPHILS # (AUTO) 0.3 10^3/uL (0.0-0.6); ABSOLUTE LYMPHOCYTES (AUTO) 1.8 10^3/uL (0.5-4.7); ABSOLUTE MONOCYTES (AUTO) 0.2 10^3/uL (0.1-1.4); ABSOLUTE NEUT (AUTO) 2.8 10^3/uL (1.7-8.2); BASOPHILS % (AUTO) 1.3 % (0-2); EOSINOPHILS % (AUTO) 5.4 % (0-6); HEMATOCRIT 28.9 % (37.9-51.0); HEMOGLOBIN 10.3 g/dL (13.5-17.0); LYMPHOCYTES % (AUTO) 35.4 % (13-45); MEAN CORPUSCULAR HEMOGLOBIN 43.9 pg (27.0-33.4); MEAN CORPUSCULAR HGB CONC 35.7 g/dL (32.0-36.0); MONOCYTES % (AUTO) 4.7 % (3-13); RED BLOOD COUNT 2.35 10^6/uL (4.35-5.55); SEGMENTED NEUTROPHILS % (AUTO) 53.2 % (42-78); WHITE BLOOD COUNT 5.2 10^3/uL (4.0-10.5)
[2017-05-15 07:04] LABS: ALANINE AMINOTRANSFERASE 29 U/L (21-72); ALBUMIN 3.9 g/dL (3.5-5.0); ALKALINE PHOSPHATASE 91 U/L (38-126); ANION GAP 8 (5-19); ASPARTATE AMINO TRANSFERASE 41 U/L (17-59); BILIRUBIN,DIRECT 0.4 mg/dL (0.0-0.4); BILIRUBIN,TOTAL 1.9 mg/dL (0.2-1.3); BLOOD UREA NITROGEN 9 mg/dL (7-20); CALCIUM 8.8 mg/dL (8.4-10.2); CARBON DIOXIDE 28 mmol/L (22-30); CHLORIDE 105 mmol/L (98-107); CREATININE RESULT 0.63 mg/dL (0.52-1.25); GLUCOSE 114 mg/dL (75-110); POTASSIUM 3.9 mmol/L (3.6-5.0); SODIUM 141.1 mmol/L (137-145); TOTAL PROTEIN 6.9 g/dL (6.3-8.2)
[2017-05-15 07:12] LABS: MEAN CORPUSCULAR VOLUME 123 fl (80-97)
[2017-05-15 07:17] LABS: ANISOCYTOSIS 3+; POIKILOCYTOSIS 1+
[2017-05-15 07:18] LABS: HOWELL-JOLLY BODIES PRESENT; OVALOCYTES SLIGHT; TARGET CELLS SLIGHT
[2017-05-15] MEDS: NORMAL SALINE 1000 ML 1,000 ML IV PRN ×2 (08:46→18:53)
--- NOTE | 2017-05-15 10:08 | Physician Advisory Note ---
Physician Advisor ProgressNote .: Pursuant to the plan for [facility], I have reviewed the medical record for this patient. Physician Advisor Statement: Very nice documentation of underlying type of asthma! Please document: 1. Underlying type Sickle cell dz - HbSS? HbSC? Sickle-thal? ... Status: Appropriately changed to Inpt status - pt requiring frequent prn IV opioid tx for adequate pain control, cannot be safely done outpt. Recurrent tachycardia despite frequent Dilaudid.... Thanks! CK
[2017-05-15] MEDS: FOLIC ACID 1 MG TABLET PO SCH (10:58)
[2017-05-15] MEDS: HYDROXYUREA 500 MG CAPSULE PO SCH (10:59)
--- NOTE | 2017-05-15 19:56 | PDOC PROGRESS REPORT ---
Subjective Progress Note for:: 05/15/17 Subjective:: Patient continue to reported multiple joints aches and pain with intermittent relief from IV Dilaudid administration. He denied any chest pain or difficulty with breathing. No nausea or vomiting. No reported fever or chills. Physical Exam Vital Signs: Temp Pulse Resp BP Pulse Ox 98.9 F 87 16 112/68 94 05/15/17 16:23 05/15/17 16:23 05/15/17 16:23 05/15/17 16:23 05/15/17 16:23 Intake & Output 05/14/17 05/15/17 05/16/17 06:59 06:59 06:59 Intake Total 1685 1206 Output Total 1700 Balance -15 1206 General appearance: PRESENT: mild distress - from his ongoing SCD pain crisis Head exam: PRESENT: atraumatic, normocephalic Eye exam: PRESENT: conjunctiva pink. ABSENT: scleral icterus Mouth exam: PRESENT: moist Respiratory exam: PRESENT: clear to auscultation ethan Cardiovascular exam: PRESENT: RRR. ABSENT: diastolic murmur, rubs, systolic murmur Vascular exam: PRESENT: normal capillary refill. ABSENT: pallor GI/Abdominal exam: PRESENT: normal bowel sounds, soft. ABSENT: distended, guarding, mass, organolmegaly, rebound, tenderness Extremities exam: PRESENT: joint swelling - minimal around knee joints. ABSENT : pedal edema Musculoskeletal exam: PRESENT: full ROM Neurological exam: PRESENT: alert, awake, oriented to person, oriented to place , oriented to time, oriented to situation, CN II-XII grossly intact. ABSENT: motor sensory deficit Psychiatric exam: PRESENT: appropriate affect, normal mood. ABSENT: homicidal ideation, suicidal ideation Skin exam: PRESENT: dry, intact, warm. ABSENT: cyanosis, rash Results Laboratory Results: 05/15/17 06:45 05/15/17 06:45 05/15/17 05/15/17 06:45 06:45 WBC 5.2 RBC 2.35 L Hgb 10.3 L Hct 28.9 L MCV 123 H MCH 43.9 H MCHC 35.7 RDW 21.0 H Plt Count 179 Seg Neutrophils % 53.2 Lymphocytes % 35.4 Monocytes % 4.7 Eosinophils % 5.4 Basophils % 1.3 Absolute Neutrophils 2.8 Absolute Lymphocytes 1.8 Absolute Monocytes 0.2 Absolute Eosinophils 0.3 Absolute Basophils 0.1 Sodium 141.1 Potassium 3.9 Chloride 105 Carbon Dioxide 28 Anion Gap 8 BUN 9 Creatinine 0.63 Est GFR ( Amer) > 60 Est GFR (Non-Af Amer) > 60 Glucose 114 H Calcium 8.8 Total Bilirubin 1.9 H AST 41 ALT 29 Alkaline Phosphatase 91 Total Protein 6.9 Albumin 3.9 Impressions: Chest X-Ray 05/13/17 15:56 IMPRESSION: NO SIGNIFICANT RADIOGRAPHIC FINDING IN THE CHEST. Knee X-Ray 05/14/17 00:00 IMPRESSION: Diffuse sclerosis involving the distal right and left femurs as well as the proximal tibias. Findings are stable from 12/04/2016 a consistent with a history of sickle-cell. Assessment & Plan - Diagnosis (1) Sickle cell disease with crisis Is this a current diagnosis for this admission?: Yes (2) Swelling of both knees Is this a current diagnosis for this admission?: Yes Plan: X ray did revealed sclerotic changes at distal femur and proximal tibia region compatible with SCD with bone infarction involvement. I will request for physical therapy input for ambulatory effort. 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 - Time Time Spent with patient: 25-34 minutes Medications reviewed and adjusted accordingly: Yes Anticipated discharge: Home Within: Other - Inpatient Certification Based on my medical assessment, after consideration of the patient's comorbidities, presenting symptoms, or acuity I expect that the services needed warrant INPATIENT care.: Yes I certify that my determination is in accordance with my understanding of Medicare's requirements for reasonable and necessary INPATIENT services [42 CFR 412.3e].: Yes Medical Necessity: Need Close Monitoring Due to Risk of Patient Decompensation, Need For IV Fluids, Need for Pain Control, Risk of Complication if Not Cared For in Hospital Post 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
[2017-05-16] MEDS: HYDROMORPHONE HCL INJ/PF 2 MG/ML AMPULE IV PRN ×10 (01:10→21:58)
[2017-05-16] MEDS: NORMAL SALINE 1000 ML 1,000 ML IV PRN (08:24)
--- NOTE | 2017-05-16 08:50 | PDOC PROGRESS REPORT ---
Subjective Progress Note for:: 05/16/17 Subjective:: Patient continue to experience multiple joints aches and pain. No chest pain or difficulty with breathing. No nausea or vomiting. No reported fever or chills. Physical Exam Vital Signs: Temp Pulse Resp BP Pulse Ox 98.4 F 76 16 114/65 94 05/15/17 23:58 05/15/17 23:58 05/15/17 23:58 05/15/17 23:58 05/16/17 02:01 Intake & Output 05/15/17 05/16/17 05/17/17 06:59 06:59 06:59 Intake Total 1685 3306 Output Total 1700 Balance -15 3306 Physical Exam: General appearance: PRESENT: mild distress - from his ongoing SCD pain crisis Head exam: PRESENT: atraumatic, normocephalic Eye exam: PRESENT: conjunctiva pink. ABSENT: scleral icterus Mouth exam: PRESENT: moist Respiratory exam: PRESENT: clear to auscultation ethan Cardiovascular exam: PRESENT: RRR. ABSENT: diastolic murmur, rubs, systolic murmur Vascular exam: PRESENT: normal capillary refill. ABSENT: pallor GI/Abdominal exam: PRESENT: normal bowel sounds, soft. ABSENT: distended, guarding, mass, organomegaly, rebound, tenderness Extremities exam: PRESENT: joint swelling - minimal around knee joints. ABSENT : pedal edema Musculoskeletal exam: PRESENT: full ROM Neurological exam: PRESENT: alert, awake, oriented to person, oriented to place , oriented to time, oriented to situation, CN II-XII grossly intact. ABSENT: motor sensory deficit Psychiatric exam: PRESENT: appropriate affect, normal mood. ABSENT: homicidal ideation, suicidal ideation Skin exam: PRESENT: dry, intact, warm. ABSENT: cyanosis, rash Results Laboratory Results: 05/15/17 06:45 05/15/17 06:45 Impressions: Chest X-Ray 05/13/17 15:56 IMPRESSION: NO SIGNIFICANT RADIOGRAPHIC FINDING IN THE CHEST. Knee X-Ray 05/14/17 00:00 IMPRESSION: Diffuse sclerosis involving the distal right and left femurs as well as the proximal tibias. Findings are stable from 12/04/2016 a consistent with a history of sickle-cell. 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 Is this a current diagnosis for this admission?: Yes - Time Time Spent with patient: 25-34 minutes Medications reviewed and adjusted accordingly: Yes Anticipated discharge: Home - Inpatient Certification Based on my medical assessment, after consideration of the patient's comorbidities, presenting symptoms, or acuity I expect that the services needed warrant INPATIENT care.: Yes I certify that my determination is in accordance with my understanding of Medicare's requirements for reasonable and necessary INPATIENT services [42 CFR 412.3e].: Yes Medical Necessity: Need Close Monitoring Due to Risk of Patient Decompensation, Need For IV Fluids, Need for Pain Control, Risk of Complication if Not Cared For in Hospital Post Hospital Care: 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 Encouraged participation in physical therapy to initial ambulatory efforts. Monitor for any development of fever.
[2017-05-16] MEDS: FOLIC ACID 1 MG TABLET PO SCH (10:24)
[2017-05-16] MEDS: HYDROXYUREA 500 MG CAPSULE PO SCH (10:24)
[2017-05-17] MEDS: HYDROMORPHONE HCL INJ/PF 2 MG/ML AMPULE IV PRN ×12 (00:04→23:36)
[2017-05-17] MEDS: NORMAL SALINE 1000 ML 1,000 ML IV PRN (04:34)
[2017-05-17] MEDS: HYDROXYUREA 500 MG CAPSULE PO SCH (09:20)
[2017-05-17] MEDS: FOLIC ACID 1 MG TABLET PO SCH (09:21)
--- NOTE | 2017-05-17 17:41 | PDOC PROGRESS REPORT ---
Subjective Progress Note for:: 05/17/17 Subjective:: Patient continue to experience multiple joints aches and pain. Participated in PT session yesterday but no attempt to ambulate on the floor so far today. Patient demanding for IV Dilaudid on schedule 4hrs interval as per nursing report. No chest pain or difficulty with breathing. He denied constipation, nausea or vomiting. No reported fever or chills. Physical Exam Vital Signs: Temp Pulse Resp BP Pulse Ox 98.6 F 100 14 132/84 H 96 05/16/17 23:56 05/16/17 23:56 05/16/17 23:56 05/16/17 23:56 05/16/17 23:56 Intake & Output 05/16/17 05/17/17 05/18/17 06:59 06:59 06:59 Intake Total 3306 7027 Output Total 3050 Balance 3306 3977 Physical Exam: General appearance: PRESENT: mild distress - from his ongoing SCD pain crisis Head exam: PRESENT: atraumatic, normocephalic Eye exam: PRESENT: conjunctiva pink. ABSENT: scleral icterus Mouth exam: PRESENT: moist Respiratory exam: PRESENT: clear to auscultation ethan Cardiovascular exam: PRESENT: RRR. ABSENT: diastolic murmur, rubs, systolic murmur Vascular exam: PRESENT: normal capillary refill. ABSENT: pallor GI/Abdominal exam: PRESENT: normal bowel sounds, soft. ABSENT: distended, guarding, mass, organomegaly, rebound, tenderness Extremities exam: PRESENT: joint swelling - minimal around knee joints. ABSENT : pedal edema Musculoskeletal exam: PRESENT: full ROM Neurological exam: PRESENT: alert, awake, oriented to person, oriented to place , oriented to time, oriented to situation, CN II-XII grossly intact. ABSENT: motor sensory deficit Psychiatric exam: PRESENT: appropriate affect, normal mood. ABSENT: homicidal ideation, suicidal ideation Skin exam: PRESENT: dry, intact, warm. ABSENT: cyanosis, rash Results Laboratory Results: 05/15/17 06:45 05/15/17 06:45 Impressions: Chest X-Ray 05/13/17 15:56 IMPRESSION: NO SIGNIFICANT RADIOGRAPHIC FINDING IN THE CHEST. Knee X-Ray 05/14/17 00:00 IMPRESSION: Diffuse sclerosis involving the distal right and left femurs as well as the proximal tibias. Findings are stable from 12/04/2016 a consistent with a history of sickle-cell. 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 Is this a current diagnosis for this admission?: Yes - Time Time Spent with patient: 25-34 minutes Medications reviewed and adjusted accordingly: Yes Anticipated discharge: Home Within: Other - Inpatient Certification Based on my medical assessment, after consideration of the patient's comorbidities, presenting symptoms, or acuity I expect that the services needed warrant INPATIENT care.: Yes I certify that my determination is in accordance with my understanding of Medicare's requirements for reasonable and necessary INPATIENT services [42 CFR 412.3e].: Yes Medical Necessity: Need Close Monitoring Due to Risk of Patient Decompensation, Need For IV Fluids, Need for Pain Control, Risk of Complication if Not Cared For in Hospital 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 I did encourage ambulation on the floor since walker s at his bedside. Monitor CBC and SMA12 on 05/20/2017 unless otherwise indicated.
[2017-05-18] MEDS: HYDROMORPHONE HCL INJ/PF 2 MG/ML AMPULE IV PRN ×10 (01:57→21:58)
--- NOTE | 2017-05-18 08:24 | PDOC PROGRESS REPORT ---
Subjective Progress Note for:: 05/18/17 Subjective:: Patient continue to experience multiple joints aches and pain. No chest pain or difficulty with breathing. He denied constipation, nausea or vomiting. No reported fever or chills. Physical Exam Vital Signs: Temp Pulse Resp BP Pulse Ox 98.6 F 104 H 16 127/71 H 95 05/18/17 00:00 05/18/17 00:00 05/18/17 00:00 05/18/17 00:00 05/17/17 16:46 Intake & Output 05/17/17 05/18/17 05/19/17 06:59 06:59 06:59 Intake Total 7027 2767 Output Total 3050 2400 Balance 3977 367 Physical Exam: General appearance: PRESENT: mild distress - from his ongoing SCD pain crisis Head exam: PRESENT: atraumatic, normocephalic Eye exam: PRESENT: conjunctiva pink. ABSENT: scleral icterus Mouth exam: PRESENT: moist Respiratory exam: PRESENT: clear to auscultation ethan Cardiovascular exam: PRESENT: RRR. ABSENT: diastolic murmur, rubs, systolic murmur Vascular exam: PRESENT: normal capillary refill. ABSENT: pallor GI/Abdominal exam: PRESENT: normal bowel sounds, soft. ABSENT: distended, guarding, mass, organomegaly, rebound, tenderness Extremities exam: PRESENT: joint swelling - minimal around knee joints. ABSENT : pedal edema Musculoskeletal exam: PRESENT: full ROM Neurological exam: PRESENT: alert, awake, oriented to person, oriented to place , oriented to time, oriented to situation, CN II-XII grossly intact. ABSENT: motor sensory deficit Psychiatric exam: PRESENT: appropriate affect, normal mood. ABSENT: homicidal ideation, suicidal ideation Skin exam: PRESENT: dry, intact, warm. ABSENT: cyanosis, rash Results Laboratory Results: 05/15/17 06:45 05/15/17 06:45 Impressions: Chest X-Ray 05/13/17 15:56 IMPRESSION: NO SIGNIFICANT RADIOGRAPHIC FINDING IN THE CHEST. Knee X-Ray 05/14/17 00:00 IMPRESSION: Diffuse sclerosis involving the distal right and left femurs as well as the proximal tibias. Findings are stable from 12/04/2016 a consistent with a history of sickle-cell. 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 Is this a current diagnosis for this admission?: Yes - Time Time Spent with patient: 25-34 minutes Medications reviewed and adjusted accordingly: Yes Anticipated discharge: Home Within: Other - Inpatient Certification Based on my medical assessment, after consideration of the patient's comorbidities, presenting symptoms, or acuity I expect that the services needed warrant INPATIENT care.: Yes I certify that my determination is in accordance with my understanding of Medicare's requirements for reasonable and necessary INPATIENT services [42 CFR 412.3e].: Yes Medical Necessity: Need Close Monitoring Due to Risk of Patient Decompensation, Need For IV Fluids, Need for Pain Control, Risk of Complication if Not Cared For in Hospital 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
[2017-05-18] MEDS: HYDROXYUREA 500 MG CAPSULE PO SCH (10:24)
[2017-05-18] MEDS: FOLIC ACID 1 MG TABLET PO SCH (10:25)
[2017-05-19] MEDS: HYDROMORPHONE HCL INJ/PF 2 MG/ML AMPULE IV PRN ×11 (00:18→22:07)
[2017-05-19] MEDS: HYDROXYUREA 500 MG CAPSULE PO SCH (09:26)
[2017-05-19] MEDS: FOLIC ACID 1 MG TABLET PO SCH (09:27)
--- NOTE | 2017-05-19 10:52 | PDOC PROGRESS REPORT ---
Subjective Progress Note for:: 05/19/17 Subjective:: Patient continue to experience multiple joints aches and pain. He reported been able to ambulate only with assistance of walker. No chest pain or difficulty with breathing. He denied constipation, nausea or vomiting. No reported fever or chills. Physical Exam Vital Signs: Temp Pulse Resp BP Pulse Ox 98.4 F 92 20 126/75 H 96 05/19/17 00:00 05/19/17 00:00 05/19/17 00:00 05/19/17 00:00 05/18/17 23:49 Intake & Output 05/18/17 05/19/17 05/20/17 06:59 06:59 06:59 Intake Total 2767 3639 Output Total 2400 2650 Balance 367 989 Physical Exam: General appearance: PRESENT: mild distress - from his ongoing SCD pain crisis Head exam: PRESENT: atraumatic, normocephalic Eye exam: PRESENT: conjunctiva pink. ABSENT: scleral icterus Mouth exam: PRESENT: moist Respiratory exam: PRESENT: clear to auscultation ethan Cardiovascular exam: PRESENT: RRR. ABSENT: diastolic murmur, rubs, systolic murmur Vascular exam: PRESENT: normal capillary refill. ABSENT: pallor GI/Abdominal exam: PRESENT: normal bowel sounds, soft. ABSENT: distended, guarding, mass, organomegaly, rebound, tenderness Extremities exam: PRESENT: joint swelling - minimal around knee joints. ABSENT : pedal edema Musculoskeletal exam: PRESENT: full ROM Neurological exam: PRESENT: alert, awake, oriented to person, oriented to place , oriented to time, oriented to situation, CN II-XII grossly intact. ABSENT: motor sensory deficit Psychiatric exam: PRESENT: appropriate affect, normal mood. ABSENT: homicidal ideation, suicidal ideation Skin exam: PRESENT: dry, intact, warm. ABSENT: cyanosis, rash Results Laboratory Results: 05/15/17 06:45 05/15/17 06:45 Impressions: Chest X-Ray 05/13/17 15:56 IMPRESSION: NO SIGNIFICANT RADIOGRAPHIC FINDING IN THE CHEST. Knee X-Ray 05/14/17 00:00 IMPRESSION: Diffuse sclerosis involving the distal right and left femurs as well as the proximal tibias. Findings are stable from 12/04/2016 a consistent with a history of sickle-cell. 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 Is this a current diagnosis for this admission?: Yes - Time Time Spent with patient: 25-34 minutes Medications reviewed and adjusted accordingly: Yes Anticipated discharge: Home Within: Other - Inpatient Certification Based on my medical assessment, after consideration of the patient's comorbidities, presenting symptoms, or acuity I expect that the services needed warrant INPATIENT care.: Yes I certify that my determination is in accordance with my understanding of Medicare's requirements for reasonable and necessary INPATIENT services [42 CFR 412.3e].: Yes Medical Necessity: Need Close Monitoring Due to Risk of Patient Decompensation, Need For IV Fluids, Need for Pain Control, Risk of Complication if Not Cared For in Hospital 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
[2017-05-20] MEDS: HYDROMORPHONE HCL INJ/PF 2 MG/ML AMPULE IV PRN ×10 (00:09→23:42)
[2017-05-20] MEDS: HYDROXYUREA 500 MG CAPSULE PO SCH (10:43)
[2017-05-20] MEDS: FOLIC ACID 1 MG TABLET PO SCH (10:43)
--- NOTE | 2017-05-20 13:40 | PDOC PROGRESS REPORT ---
Subjective Progress Note for:: 05/20/17 Subjective:: Patient's pain is fairly contol on his current medication management. He ambulate on the floor with walker assistance. No chest pain or difficulty with breathing. He denied constipation, nausea or vomiting. No reported fever or chills. Physical Exam Vital Signs: Temp Pulse Resp BP Pulse Ox 98.3 F 102 H 18 118/65 95 05/20/17 11:16 05/20/17 11:16 05/20/17 11:16 05/20/17 11:16 05/20/17 11:16 Intake & Output 05/19/17 05/20/17 05/21/17 06:59 06:59 06:59 Intake Total 3639 6683 Output Total 2650 3500 Balance 989 3183 Weight 68.4 kg Physical Exam: General appearance: PRESENT: mild distress - from his ongoing SCD pain crisis Head exam: PRESENT: atraumatic, normocephalic Eye exam: PRESENT: conjunctiva pink. ABSENT: scleral icterus Mouth exam: PRESENT: moist Respiratory exam: PRESENT: clear to auscultation ethan Cardiovascular exam: PRESENT: RRR. ABSENT: diastolic murmur, rubs, systolic murmur Vascular exam: PRESENT: normal capillary refill. ABSENT: pallor GI/Abdominal exam: PRESENT: normal bowel sounds, soft. ABSENT: distended, guarding, mass, organomegaly, rebound, tenderness Extremities exam: PRESENT: joint swelling - minimal around knee joints. ABSENT : pedal edema Musculoskeletal exam: PRESENT: full ROM Neurological exam: PRESENT: alert, awake, oriented to person, oriented to place , oriented to time, oriented to situation, CN II-XII grossly intact. ABSENT: motor sensory deficit Psychiatric exam: PRESENT: appropriate affect, normal mood. ABSENT: homicidal ideation, suicidal ideation Skin exam: PRESENT: dry, intact, warm. ABSENT: cyanosis, rash Results Laboratory Results: 05/15/17 06:45 05/15/17 06:45 Impressions: Chest X-Ray 05/13/17 15:56 IMPRESSION: NO SIGNIFICANT RADIOGRAPHIC FINDING IN THE CHEST. Knee X-Ray 05/14/17 00:00 IMPRESSION: Diffuse sclerosis involving the distal right and left femurs as well as the proximal tibias. Findings are stable from 12/04/2016 a consistent with a history of sickle-cell. 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 Is this a current diagnosis for this admission?: Yes - Time Time Spent with patient: 25-34 minutes Medications reviewed and adjusted accordingly: Yes Anticipated discharge: Home Within: within 24 hours - Inpatient Certification Based on my medical assessment, after consideration of the patient's comorbidities, presenting symptoms, or acuity I expect that the services needed warrant INPATIENT care.: Yes I certify that my determination is in accordance with my understanding of Medicare's requirements for reasonable and necessary INPATIENT services [42 CFR 412.3e].: Yes Medical Necessity: Need Close Monitoring Due to Risk of Patient Decompensation, Need For IV Fluids, Need for Pain Control, Risk of Complication if Not Cared For in Hospital 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 Possible d/c home tomorrow. Patient is aware of plan and in agreement.
[2017-05-20] MEDS ORDERED: OXYCODONE HCL IR 5 MG TABLET PO PRN (13:41)
[2017-05-20] MEDS ORDERED: FENTANYL 100 MCG/HR PATCH.TD72 TOP ONE (14:00)
[2017-05-21] MEDS: HYDROMORPHONE HCL INJ/PF 2 MG/ML AMPULE IV PRN ×4 (03:49→16:25)
[2017-05-21] MEDS: HYDROXYUREA 500 MG CAPSULE PO SCH (09:21)
[2017-05-21] MEDS: FOLIC ACID 1 MG TABLET PO SCH (09:21)
[2017-05-21] MEDS: NORMAL SALINE 1000 ML 1,000 ML IV PRN ×2 (09:22→11:38)
[2017-05-21 17:26] VITALS: BP 126/75
--- NOTE | 2017-05-21 19:25 | PDOC DISCHARGE SUMMARY ---
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 Is this a current diagnosis for this admission?: Yes - Additional Information Resuscitation Status: Full Code Discharge Diet: As Tolerated Discharge Activity: Activity As Tolerated, Slowly Increase Activity Home Medications: Albuterol Sulfate [Proair HFA Inhalation Aerosol 8.5 gm MDI] 2 puff IH Q4HP PRN 05/14/17 Fentanyl [Duragesic 100 Mcg/Hr Transdermal Patch] 1 patch TOP Q3D 05/14/17 Folic Acid [Folvite 1 mg Tablet] 1 mg PO DAILY 05/14/17 Hydroxyurea [Hydrea 500 mg Capsule] 1,000 mg PO DAILY 05/14/17 Oxycodone HCl [Oxy-Ir 5 mg Tablet] 5 mg PO Q4HP PRN 05/14/17 History of Present Illness History of Present Illness: MARINO POZO is a 21 year old male known to my practice with history of Sickle Cell Disease frequent flare ups and admission to the hospital for hydration and pain control. He presented to the ED with 2 days history of worsening lower back and knee joints aches and pain that resulted in his coming to the ED. Patient is on opiate pain management regimen at home that he claimed was ineffective in controlling his pain. Patient reported development of knee joint swelling, particularly left knee. He denied any associated fall, trauma or injury prior to presentation. He denied any fever, chills, headache or dizziness. His morbidities include SCD and Asthma. Hospital Course Hospital Course: Patient did respond to IV fluid support and IV Dilaudid therapy. His knee X-Ray did revealed sclerotic changes in the distal femor and proximal tibia region of his knee joints compatible with history of sickle cell disease. Patient was eventually able to ambulate with walker assistance. He was restarted on his preadmission fentanyl patch with satisfactory pain control. He will be discharge home on his preadmission medications with understanding to follow up with Dr Carlos, his rn radiology, for his pain medication management. He will follow up with me in the office as instructed upon discharge. Physical Exam Vital Signs: Temp Pulse Resp BP Pulse Ox 98.3 F 99 16 126/75 H 94 05/21/17 17:24 05/21/17 17:24 05/21/17 17:24 05/21/17 17:24 05/21/17 17:24 Intake & Output 05/20/17 05/21/17 05/22/17 06:59 06:59 06:59 Intake Total 6683 5323 830 Output Total 3500 3550 1300 Balance 3183 1773 -470 Weight 68.4 kg 68.3 kg Physical Exam: General appearance: PRESENT: mild distress - from his ongoing SCD pain crisis Head exam: PRESENT: atraumatic, normocephalic Eye exam: PRESENT: conjunctiva pink. ABSENT: scleral icterus Mouth exam: PRESENT: moist Respiratory exam: PRESENT: clear to auscultation ethan Cardiovascular exam: PRESENT: RRR. ABSENT: diastolic murmur, rubs, systolic murmur Vascular exam: PRESENT: normal capillary refill. ABSENT: pallor GI/Abdominal exam: PRESENT: normal bowel sounds, soft. ABSENT: distended, guarding, mass, organomegaly, rebound, tenderness Extremities exam: PRESENT: Resolved minimal knee joint swelling - minimal. ABSENT: pedal edema Musculoskeletal exam: PRESENT: full ROM Neurological exam: PRESENT: alert, awake, oriented to person, oriented to place , oriented to time, oriented to situation, CN II-XII grossly intact. ABSENT: motor sensory deficit Psychiatric exam: PRESENT: appropriate affect, normal mood. ABSENT: homicidal ideation, suicidal ideation Skin exam: PRESENT: dry, intact, warm. ABSENT: cyanosis, rash Results Laboratory Results: 05/15/17 06:45 05/15/17 06:45 Impressions: Chest X-Ray 05/13/17 15:56 IMPRESSION: NO SIGNIFICANT RADIOGRAPHIC FINDING IN THE CHEST. Knee X-Ray 05/14/17 00:00 IMPRESSION: Diffuse sclerosis involving the distal right and left femurs as well as the proximal tibias. Findings are stable from 12/04/2016 a consistent with a history of sickle-cell. Qualifiers PATEINT BEING DISCHARGED WITH ANY OF THE FOLLOWING DIAGNOSIS?: No Plan Discharge Plan: Patient will be discharge home today. He will follow up with Dr. Carlos and me in the office as instructed upon discharge.
[2017-05-23] MEDS ORDERED: FENTANYL 100 MCG/HR PATCH.TD72 TOP SCH (10:00)
== END 2017-05-21 18:23 | disposition home or self-care (01) | DRG 812 ==
LOC: ER 15:24 → UNDOADMOB 23:47 → EH 23:47 → 4S 05-14 01:44 → EH 05-14 02:11 → 4S 05-14 15:15 → OBSVTOIN 05-14 17:37
PROVIDERS: ADMIT Internal Medicine Geriatric Medicine; ATTEND Internal Medicine Geriatric Medicine
DX: D57.00 Hb-SS disease with crisis, unspecified (principal); J45.909 Unspecified asthma, uncomplicated; M25.562 Pain in left knee; M25.561 Pain in right knee; Z79.891 Long term (current) use of opiate analgesic; Z79.899 Other long term (current) drug therapy
CPT/HCPCS: 36415; 71020; 80053; 81001; 85025; 85045; 96361; 96374; 96375; 96376; 99285; G0378; J1170; J1200; J3490; J7030; S0119

== ENCOUNTER 2017-06-02 18:38 | Emergency (ER) | payer MEDICAID ==
[2017-06-02] MEDS ORDERED: MORPHINE SULFATE 10 MG/ML INJ IV ONE (18:46)
[2017-06-02] MEDS ORDERED: DIPHENHYDRAMINE HCL 50 MG/ML VIAL IV ONE ×2 (18:46→22:15)
[2017-06-02] MEDS ORDERED: NORMAL SALINE 1000 ML 1,000 ML IV PRN (18:46)
--- NOTE | 2017-06-02 18:48 | ER Document Report ---
ED Medical Screen (RME) - General Chief Complaint: Sickle Cell Crisis Stated Complaint: SICKLE CELL, LEFT KNEE, BACK PAIN Time Seen by Provider: 06/02/17 18:46 Mode of Arrival: Ambulatory Information source: Patient TRAVEL OUTSIDE OF THE [place] IN LAST 30 DAYS: No - HPI Patient complains to provider of: Sickle cell crisis Notes: 06/02/17 18:48 Patient is a 21-year-old male with a history of sickle cell who presents to the emergency room today complaining of knee and back pain typical of his painful crises, Percocet is not helping the pain - Related Data Allergies/Adverse Reactions: Coconut * [Coconut] Allergy (Mild, Verified 06/02/17 18:44) transpore tape Allergy (Mild, Uncoded 05/13/17 15:45) Hives Past Medical History - Social History Family history: None Pulmonary Medical History: Reports: Hx Asthma, Hx Pneumonia Renal/ Medical History: Denies: Hx Peritoneal Dialysis Psychiatric Medical History: Denies: Hx Depression Past Surgical History: Reports: Hx Abdominal Surgery - Gallstones removal, Hx Orthopedic Surgery - Fluid drained from right foot, Hx Vascular Surgery - Port placement. Denies: Hx Cholecystectomy - Immunizations Immunizations up to date: Yes Hx Diphtheria, Pertussis, Tetanus Vaccination: Yes Physical Exam - Vital signs Vitals: Temp Pulse Resp BP Pulse Ox 99.1 F 119 H 18 145/85 H 94 06/02/17 18:40 06/02/17 18:40 06/02/17 18:40 06/02/17 18:40 06/02/17 18:40 Course - Vital Signs Vital signs: Temp Pulse Resp BP Pulse Ox 99.1 F 119 H 18 145/85 H 94 06/02/17 18:40 06/02/17 18:40 06/02/17 18:40 06/02/17 18:40 06/02/17 18:40
[2017-06-02] MEDS ORDERED: HYDROMORPHONE HCL INJ/PF 2 MG/ML AMPULE IV ONE ×3 (18:55→22:15)
[2017-06-02] MEDS ORDERED: ONDANSETRON HCL INJ/PF 4 MG/2 ML SDV IV ONE ×2 (18:55→22:48)
[2017-06-02 20:33] LABS: HEMATOCRIT 27.4 % (37.9-51.0); HEMOGLOBIN 9.8 g/dL (13.5-17.0); MEAN CORPUSCULAR HEMOGLOBIN 41.7 pg (27.0-33.4); MEAN CORPUSCULAR HGB CONC 35.9 g/dL (32.0-36.0); RED BLOOD COUNT 2.36 10^6/uL (4.35-5.55); RED CELL DISTRIBUTION WIDTH 21.7 % (11.5-14.0); WHITE BLOOD COUNT 3.6 10^3/uL (4.0-10.5)
[2017-06-02 20:45] LABS: MEAN CORPUSCULAR VOLUME 116 fl (80-97)
[2017-06-02 20:52] LABS: ALANINE AMINOTRANSFERASE 30 U/L (21-72); ALBUMIN 3.8 g/dL (3.5-5.0); ALKALINE PHOSPHATASE 110 U/L (38-126); ANION GAP 6 (5-19); ASPARTATE AMINO TRANSFERASE 66 U/L (17-59); BILIRUBIN,DIRECT 0.5 mg/dL (0.0-0.4); BILIRUBIN,TOTAL 1.9 mg/dL (0.2-1.3); BLOOD UREA NITROGEN 11 mg/dL (7-20); CALCIUM 7.7 mg/dL (8.4-10.2); CARBON DIOXIDE 27 mmol/L (22-30); CHLORIDE 109 mmol/L (98-107); CREATININE RESULT 0.72 mg/dL (0.52-1.25); GLUCOSE 74 mg/dL (75-110); POTASSIUM 3.6 mmol/L (3.6-5.0); SODIUM 142.3 mmol/L (137-145); TOTAL PROTEIN 7.2 g/dL (6.3-8.2)
[2017-06-02 20:54] LABS: BAND NEUTROPHILS % (MANUAL) 1 % (3-5); BASOPHILS % (MANUAL) 0 % (0-2); EOSINOPHILS % (MANUAL) 5 % (0-6); LYMPHOCYTES % (MANUAL) 53 % (13-45); NUCLEATED RED BLOOD CELLS 14 /100 WBC (0); TOTAL CELLS COUNTED 100
[2017-06-02 20:55] LABS: ANISOCYTOSIS 3+; PLATELET CLUMPS PRESENT
[2017-06-02 20:56] LABS: POIKILOCYTOSIS 1+; POLYCHROMASIA 1+; TARGET CELLS 1+
[2017-06-02 20:58] LABS: HOWELL-JOLLY BODIES PRESENT; TEAR DROP CELLS SLIGHT
[2017-06-02 21:00] LABS: OVALOCYTES SLIGHT
--- NOTE | 2017-06-02 21:07 | ER Document Report ---
ED General Pain - General Chief Complaint: Sickle Cell Crisis Stated Complaint: SICKLE CELL, LEFT KNEE, BACK PAIN Time Seen by Provider: 06/02/17 18:46 Mode of Arrival: Ambulatory Notes: Patient is complaining of pain in his lower back, mostly to the right side, and pain in his left knee for the past 3 days. Patient has sickle cell anemia and has frequent pain crises. He says that these locations of pain are typical for his pain crises. He has no unusual activity. No injuries. No fevers. Patient is on oxycodone 15 mg at home, but not helping. Also has a fentanyl patch 100 mcg prescribed that he is supposed to wear, but he is out of the patches and will not have another one for couple of days. Patient's been nauseated but not vomiting. No diarrhea. No UTI symptoms. No fevers.. TRAVEL OUTSIDE OF THE [place] IN LAST 30 DAYS: No - Related Data Allergies/Adverse Reactions: Coconut * [Coconut] Allergy (Mild, Verified 06/02/17 18:44) transpore tape Allergy (Mild, Uncoded 05/13/17 15:45) Hives Past Medical History - General Information source: Patient - Social History Smoking Status: Never Smoker Chew tobacco use (# tins/day): No Frequency of alcohol use: Rare Drug Abuse: None Family History: Reviewed & Not Pertinent, Arthritis, DM, Hypertension, Other - Sickle cell trait both parents and asthma Patient has suicidal ideation: No Patient has homicidal ideation: No Pulmonary Medical History: Reports: Hx Asthma, Hx Pneumonia Past Surgical History: Reports: Hx Abdominal Surgery - Gallstones removal, Hx Cholecystectomy, Hx Orthopedic Surgery - Fluid drained from right foot, Hx Vascular Surgery - Port placement - Immunizations Immunizations up to date: Yes Hx Diphtheria, Pertussis, Tetanus Vaccination: Yes Hx Pneumococcal Vaccination: 01/15/13 Review of Systems - Review of Systems Notes: REVIEW OF SYSTEMS: CONSTITUTIONAL : Denies fever. EENT: Denies eye, ear, nose or mouth or throat pain or other symptoms. CARDIOVASCULAR: Denies chest pain. RESPIRATORY: Denies cough, chest congestion, or shortness of breath. GASTROINTESTINAL: Denies abdominal pain or vomiting, or diarrhea. Has nausea. GENITOURINARY: Denies difficulty or painful urinating, urinary frequency, blood in urine. MUSCULOSKELETAL: See HPI.. SKIN: Denies rash or skin lesions. NEUROLOGICAL: Denies LOC or altered mental status. Denies headache. Denies sensory loss or motor deficits. ALL OTHER SYSTEMS REVIEWED AND NEGATIVE. Physical Exam - Vital signs Vitals: Temp Pulse Resp BP Pulse Ox 99.1 F 119 H 18 145/85 H 94 06/02/17 18:40 06/02/17 18:40 06/02/17 18:40 06/02/17 18:40 06/02/17 18:40 Interpretation: Normal, Tachycardic - Notes Notes: PHYSICAL EXAMINATION: GENERAL: Well-appearing, in no acute distress. Afebrile. Tachycardia, but other vital signs are all normal. HEAD: Atraumatic, normocephalic. ENT: oropharynx clear without exudates. Moist mucous membranes. NECK: Normal range of motion, supple. LUNGS: Breath sounds clear and equal bilaterally. HEART: Regular rate and rhythm without murmurs. ABDOMEN: Soft, nontender. No guarding or rebound. BACK: Tender to percussion in the paralumbar muscles, more so on the right side , but no tenderness throughout entire remaining back. EXTREMITIES: Normal range of motion without pain. Left knee is not swollen. Can be moved passively without significant pain. NEUROLOGICAL: Normal speech, normal gait. Normal sensory, motor, and reflex exams. Awake, alert, and oriented x3. Cranial nerves normal. PSYCH: Normal mood, normal affect. SKIN: Warm, dry, no rashes. Course - Re-evaluation Re-evalutation: 06/02/17 21:06 Resting more pain medications. Dilaudid 2 mg IV being given. 06/02/17 22:57 Patient requested another dose of Dilaudid and I agreed to give him 1 more milligram for a total of 5 mg and he agrees that he will be ready to go home then. Also complaining of continuing nausea so giving some additional Zofran IV. Patient's labs show a calcium of 7.4. He says he supposed to see Dr. Willis Saturday to look into that lab result. I advised him to be sure to get Dr. Willis to write him for more fentanyl patches and other outpatient pain medications. - Vital Signs Vital signs: Temp Pulse Resp BP Pulse Ox 99.1 F 119 H 18 145/85 H 94 06/02/17 18:40 06/02/17 18:40 06/02/17 18:40 06/02/17 18:40 06/02/17 18:40 - Laboratory Result Diagrams: 06/02/17 20:17 06/02/17 20:17 Laboratory results interpreted by me: 06/02/17 06/02/17 06/02/17 20:17 20:17 21:04 WBC 3.6 L RBC 2.36 L Hgb 9.8 L Hct 27.4 L MCV 116 H D MCH 41.7 H RDW 21.7 H Seg Neuts % (Manual) 28 L Band Neutrophils % 1 L Lymphocytes % (Manual) 53 H Abs Neuts (Manual) 1.0 L Retic Count (auto) 9.04 H Absolute Retic 0.213 H Chloride 109 H Glucose 74 L Calcium 7.7 L Total Bilirubin 1.9 H Direct Bilirubin 0.5 H AST 66 H Urine Urobilinogen 2.0 H 06/02/17 22:59 Reticulocyte count 9.04. Discharge - Discharge Clinical Impression: Sickle cell pain crisis Condition: Stable Disposition: HOME, SELF-CARE Additional Instructions: Sickle Cell Crisis You have "sickle cell crisis." Sickle cell disease is caused by abnormal hemoglobin. This hemoglobin can deform red blood cells into a sickle shape. These abnormal blood cells can block blood vessels. This causes the pain of sickle cell crisis. Sickle cell crisis can occur any time. But attacks are more likely with acute infection, dehydration, or altitude change. A crisis usually causes pain in the legs, back, abdomen, and chest. Sometimes the pain may ease and return later. The usual treatment is oxygen, pain medication, IV fluids, and treatment of infection. Attacks may take a couple of days to resolve. Return if the pain becomes more severe, or if there are new symptoms. LOW BACK PAIN: Three out of every four people will have an episode of disabling back pain during their lifetime. Most commonly the pain is due to straining of the muscles and ligaments in the low back. Usual treatment includes: (1) Rest on a firm surface. Avoid lying on your stomach. (2) Ice pack the painful area. After a few days, gentle heat may be used intermittently to relax the area, or ice packs can be continued. (3) Medication may be needed -- muscle relaxers and antiinflammatory medicines are commonly used. (4) As the back improves, exercises are prescribed to strengthen the back and abdominal muscles. Your doctor will advise you on the proper care for your back at each stage in your recovery. You may be better in a few days -- or healing may take several weeks. If new symptoms of a "herniated disc" (radiation of pain, numbness, or tingling down the back of the leg or weakness in the leg) occur, you should be re-examined. Further testing may be necessary. PAIN MEDICATION INJECTION: You have received an injection of a pain medication. You should experience significant pain relief within 45 minutes. If this medication is a narcotic, it will impair your judgement, slow your reaction time and make you sleepy (as well as relieve your pain). Narcotics also can cause nausea. You should not drive, work with machinery, or perform any task requiring mental alertness until all effects of the medication are gone -- six to eight hours. Do not take any alcohol, or sedatives, and do not take any other medication without checking with your physician. Antinausea Medication You have been given a medication to suppress nausea and vomiting. This type of medication can be given as a shot, pill, or suppository. It will usually last for many hours. Pills and shots usually last six to eight hours, suppositories last about 12 hours. For the typical illness, only one or two doses of the medication may be necessary. Mild lightheadedness may occur. This type of medicine can cause drowsiness. Do not drive or operate dangerous machinery while under its influence. Do not mix with alcohol. See your doctor at once if you have muscle spasms or tightness, or uncontrollable motions (particularly of the neck, mouth, or jaw). Persistent vomiting or severe lightheadedness should also be evaluated by the physician. FOLLOW-UP CARE: If you have been referred to a physician for follow-up care, call the physician s office for an appointment as you were instructed or within the next two days. If you experience worsening or a significant change in your symptoms, notify the physician immediately or return to the Emergency Department at any time for re-evaluation. Follow-up with Dr. Willis Saturday, as scheduled. He can write 2 prescriptions for more fentanyl patches and other outpatient pain medications. Return if your symptoms worsen or you begin to run a fever, etc. Referrals: ANDREW WILLIS MD [Primary Care Provider] - Follow up as needed
[2017-06-02 21:20] LABS: APPEARANCE,URINE CLEAR; BILIRUBIN,URINE NEGATIVE (NEGATIVE); GLUCOSE, URINE NEGATIVE (NEGATIVE); KETONES,URINE NEGATIVE (NEGATIVE); LEUKOCYTE ESTERASE,URINE NEGATIVE (NEGATIVE); NITRITE,URINE NEGATIVE (NEGATIVE); PROTEIN,URINE NEGATIVE (NEGATIVE); URINE SPECIFIC GRAVITY 1.008
[2017-06-02 21:26] LABS: RBC,URINE NONE SEEN /HPF; WBC,URINE NONE SEEN /HPF
[2017-06-02 23:49] VITALS: BP 135/85
== END 2017-06-02 23:49 | disposition home or self-care (01) ==
LOC: ER 18:38
DX: D57.00 Hb-SS disease with crisis, unspecified (principal); R11.0 Nausea; Z90.49 Acquired absence of other specified parts of digestive tract
CPT/HCPCS: 36591; 96376; 99284; 96361; 96374; 96375; 36415; 85025; 85045; 80053; 81001; J1200; J1170; J2405; J7030

== ENCOUNTER 2017-06-08 23:16 | Emergency (ER) | payer MEDICAID ==
[2017-06-09] MEDS ORDERED: ONDANSETRON HCL INJ/PF 4 MG/2 ML SDV IV ONE (00:43)
[2017-06-09] MEDS: HYDROMORPHONE HCL INJ/PF 2 MG/ML AMPULE IV PRN ×3 (01:35→04:00)
[2017-06-09] MEDS ORDERED: DIPHENHYDRAMINE HCL 50 MG CAPSULE PO ONE (01:42)
[2017-06-09 01:52] LABS: ABSOLUTE BASOPHILS # (AUTO) 0.1 10^3/uL (0.0-0.2); ABSOLUTE EOSINOPHILS # (AUTO) 0.1 10^3/uL (0.0-0.6); ABSOLUTE LYMPHOCYTES (AUTO) 3.3 10^3/uL (0.5-4.7); ABSOLUTE MONOCYTES (AUTO) 1.4 10^3/uL (0.1-1.4); ABSOLUTE NEUT (AUTO) 2.8 10^3/uL (1.7-8.2); BASOPHILS % (AUTO) 1.1 % (0-2); HEMATOCRIT 30.5 % (37.9-51.0); HEMOGLOBIN 10.5 g/dL (13.5-17.0); LYMPHOCYTES % (AUTO) 42.9 % (13-45); MEAN CORPUSCULAR HEMOGLOBIN 38.8 pg (27.0-33.4); MEAN CORPUSCULAR HGB CONC 34.2 g/dL (32.0-36.0); MEAN CORPUSCULAR VOLUME 113 fl (80-97); MONOCYTES % (AUTO) 18.7 % (3-13); RED BLOOD COUNT 2.69 10^6/uL (4.35-5.55); RED CELL DISTRIBUTION WIDTH 22.6 % (11.5-14.0); SEGMENTED NEUTROPHILS % (AUTO) 36.3 % (42-78)
[2017-06-09 02:01] LABS: ANION GAP 13 (5-19); BLOOD UREA NITROGEN 15 mg/dL (7-20); CALCIUM 9.5 mg/dL (8.4-10.2); CARBON DIOXIDE 28 mmol/L (22-30); CHLORIDE 103 mmol/L (98-107); CREATININE RESULT 0.92 mg/dL (0.52-1.25); GLUCOSE 95 mg/dL (75-110); POTASSIUM 4.1 mmol/L (3.6-5.0); SODIUM 144.4 mmol/L (137-145)
[2017-06-09 02:17] LABS: ANISOCYTOSIS 3+; POIKILOCYTOSIS 1+; POLYCHROMASIA 1+; TARGET CELLS 1+; TOXIC GRANULATION SLIGHT; TOXIC VACUOLATION PRESENT
[2017-06-09 02:21] LABS: SMUDGE CELLS PRESENT
[2017-06-09 02:29] LABS: WHITE BLOOD COUNT 7.6 10^3/uL (4.0-10.5)
[2017-06-09 02:31] LABS: HOWELL-JOLLY BODIES PRESENT
--- NOTE | 2017-06-09 03:15 | ER Document Report ---
ED General Pain - General Chief Complaint: Sickle Cell Crisis Stated Complaint: SICKLE CELL CRISIS Time Seen by Provider: 06/09/17 00:42 Notes: Patient is a 21-year-old male with past medical history of hemoglobin SS who presents with an acute sickle cell crisis. He describes a severe, constant pain to his low back and left knee. He states that this is been ongoing for 2 days. He has been using a fentanyl patch and oxycodone at home without any significant improvement of his symptoms. Nothing worsens the pain. He states this feels identical to prior sickle cell crises. He denies any shortness of breath or chest pain. He does have a history of acute chest syndrome and states that he does not feel that he is having that today. He has not seen his primary doctor or rabbler regarding today's concerns. TRAVEL OUTSIDE OF THE [place] IN LAST 30 DAYS: No - Related Data Allergies/Adverse Reactions: Coconut * [Coconut] Allergy (Mild, Verified 06/08/17 23:20) transpore tape Allergy (Mild, Uncoded 06/08/17 23:20) Hives Past Medical History - General Information source: Patient - Social History Smoking Status: Never Smoker Frequency of alcohol use: None Drug Abuse: None Lives with: Spouse/Significant other Family History: Reviewed & Not Pertinent, Arthritis, DM, Hypertension, Other - Sickle cell trait both parents and asthma Pulmonary Medical History: Reports: Hx Asthma, Hx Pneumonia Renal/ Medical History: Denies: Hx Peritoneal Dialysis Psychiatric Medical History: Denies: Hx Depression Past Surgical History: Reports: Hx Abdominal Surgery - Gallstones removal, Hx Cholecystectomy, Hx Orthopedic Surgery - Fluid drained from right foot, Hx Vascular Surgery - Port placement - Immunizations Immunizations up to date: Yes Hx Diphtheria, Pertussis, Tetanus Vaccination: Yes Hx Pneumococcal Vaccination: 01/15/13 Review of Systems - Review of Systems Notes: Constitutional: Negative for fever. HENT: Negative for sore throat. Eyes: Negative for visual changes. Cardiovascular: Negative for chest pain. Respiratory: Negative for shortness of breath. Gastrointestinal: Negative for abdominal pain, vomiting or diarrhea. Genitourinary: Negative for dysuria. Musculoskeletal: Positive for back pain and left knee pain Skin: Negative for rash. Neurological: Negative for headaches, weakness or numbness. 10 point ROS negative except as marked above and in HPI. Physical Exam - Vital signs Vitals: Temp Pulse Resp BP Pulse Ox 98.2 F 120 H 17 140/95 H 93 06/08/17 23:20 06/08/17 23:20 06/08/17 23:20 06/08/17 23:20 06/08/17 23:20 Interpretation: Tachycardic Notes: PHYSICAL EXAMINATION: GENERAL: Well-appearing, well-nourished and in no acute distress. HEAD: Atraumatic, normocephalic. EYES: Pupils equal round and reactive to light, extraocular movements intact, sclera anicteric, conjunctiva are normal. ENT: nares patent, oropharynx clear without exudates. Moist mucous membranes. NECK: Normal range of motion, supple without lymphadenopathy LUNGS: Breath sounds clear to auscultation bilaterally and equal. No wheezes rales or rhonchi. HEART: Regular rate and rhythm without murmurs ABDOMEN: Soft, nontender, normoactive bowel sounds. No guarding, no rebound. No masses appreciated. EXTREMITIES: Normal range of motion, no pitting or edema. No cyanosis. NEUROLOGICAL: No focal neurological deficits. Moves all extremities spontaneously and on command. PSYCH: Normal mood, normal affect. SKIN: Warm, Dry, normal turgor, no rashes or lesions noted. Course - Re-evaluation Re-evalutation: 06/09/17 03:15 Presentation is most consistent with an uncomplicated sickle cell pain crisis. Patient has no evidence of an aplastic crisis on labs. History and vitals are not consistent with acute chest syndrome. Vitals have remained within normal limits here in the emergency department. Patient's pain has been able to be controlled using IV analgesia. The patient is agreeable to discharge home at this time. I recommended that they follow closely with their primary rabbler. Return precautions have been reviewed and discussed and patient has verbalized indications to return to the emergency department. - Vital Signs Vital signs: Temp Pulse Resp BP Pulse Ox 98.2 F 120 H 17 140/95 H 93 06/08/17 23:20 06/08/17 23:20 06/08/17 23:20 06/08/17 23:20 06/08/17 23:20 - Laboratory Result Diagrams: 06/09/17 01:30 06/09/17 01:30 Laboratory results interpreted by me: 06/09/17 01:30 RBC 2.69 L Hgb 10.5 L Hct 30.5 L MCV 113 H MCH 38.8 H RDW 22.6 H Seg Neutrophils % 36.3 L Monocytes % 18.7 H Retic Count (auto) 9.49 H Absolute Retic 0.256 H Discharge - Discharge Clinical Impression: Sickle cell crisis Sickle cell anemia Qualifiers: Sickle-cell associated disorders: with unspecified crisis Qualified Code(s): D57.00 - Hb-SS disease with crisis, unspecified; D57.0 - Hb-SS disease with crisis Condition: Good Disposition: HOME, SELF-CARE Additional Instructions: You were seen today for sickle cell pain crisis. Please follow-up with your rabbler. Returning to the ED if you have worsening pain, fever greater than 100.4, shortness of breath, persistent vomiting, or any other symptoms that are concerning to you. Referrals: ANDREW WILLIS MD [Primary Care Provider] - Follow up as needed
[2017-06-09 04:49] VITALS: BP 129/87
== END 2017-06-09 04:48 | disposition home or self-care (01) ==
LOC: ER 23:16
DX: D57.00 Hb-SS disease with crisis, unspecified (principal); M54.5 Low back pain; M25.562 Pain in left knee; J45.909 Unspecified asthma, uncomplicated; Z91.018 Allergy to other foods; Z91.048 Other nonmedicinal substance allergy status; R00.0 Tachycardia, unspecified
CPT/HCPCS: 36591; 96376; 99284; 96374; 96375; 36415; 85045; 85025; 80048; J3490; J1170; J2405

== ENCOUNTER 2017-06-10 21:04 | Emergency (ER) | payer MEDICAID ==
[2017-06-10 22:51] LABS: APPEARANCE,URINE SLIGHTLY-CLOUDY; BILIRUBIN,URINE NEGATIVE (NEGATIVE); GLUCOSE, URINE NEGATIVE (NEGATIVE); KETONES,URINE NEGATIVE (NEGATIVE); LEUKOCYTE ESTERASE,URINE LARGE (NEGATIVE); NITRITE,URINE NEGATIVE (NEGATIVE); PROTEIN,URINE 100 mg/dL (NEGATIVE); URINE SPECIFIC GRAVITY 1.014
--- NOTE | 2017-06-10 23:34 | ER Document Report ---
ED Medical Screen (RME) - General Chief Complaint: Sickle Cell Crisis Stated Complaint: POSSIBLE PAIN CRISIS Time Seen by Provider: 06/10/17 23:30 Mode of Arrival: Ambulatory Information source: Patient Notes: 21-year-old male presents to ED for complaint of left knee pain low back pain and chest pain. He states he has a history of sickle cell anemia. He states he takes oxycodone 15 mg every 4 hours as needed, last dose at 1845-he is on a fentanyl patch every 3 days last patch was applied 2 days ago. States if the pain continues for 3 days he usually comes into the emergency room to get treated. I have greeted and performed a rapid initial assessment of this patient. A comprehensive ED assessment and evaluation of the patient, analysis of test results and completion of medical decision making process will be conducted by an additional ED providers. TRAVEL OUTSIDE OF THE [place] IN LAST 30 DAYS: No - Related Data Allergies/Adverse Reactions: Coconut * [Coconut] Allergy (Mild, Verified 06/10/17 22:04) transpore tape Allergy (Mild, Uncoded 06/10/17 22:04) Hives Past Medical History - Social History Family history: None Pulmonary Medical History: Reports: Hx Asthma, Hx Pneumonia Renal/ Medical History: Denies: Hx Peritoneal Dialysis Psychiatric Medical History: Denies: Hx Depression Past Surgical History: Reports: Hx Abdominal Surgery - Gallstones removal, Hx Cholecystectomy, Hx Orthopedic Surgery - Fluid drained from right foot, Hx Vascular Surgery - Port placement - Immunizations Immunizations up to date: Yes Hx Diphtheria, Pertussis, Tetanus Vaccination: Yes Physical Exam - Vital signs Vitals: Temp Pulse Resp BP Pulse Ox 98.9 F 114 H 20 146/87 H 95 06/10/17 22:07 06/10/17 22:07 06/10/17 22:07 06/10/17 22:07 06/10/17 22:07 Course - Vital Signs Vital signs: Temp Pulse Resp BP Pulse Ox 98.9 F 114 H 20 146/87 H 95 06/10/17 22:07 06/10/17 22:07 06/10/17 22:07 06/10/17 22:07 06/10/17 22:07 - Laboratory Laboratory results interpreted by me: 06/10/17 22:10 Urine Protein 100 H Urine Blood SMALL H Urine Urobilinogen 4.0 H Ur Leukocyte Esterase LARGE H
[2017-06-11 00:01] LABS: HEMATOCRIT 33.2 % (37.9-51.0); HEMOGLOBIN 11.7 g/dL (13.5-17.0); HGB HCT DIFFERENCE 1.9; MEAN CORPUSCULAR HEMOGLOBIN 39.9 pg (27.0-33.4); MEAN CORPUSCULAR HGB CONC 35.2 g/dL (32.0-36.0); MEAN CORPUSCULAR VOLUME 113 fl (80-97); RED BLOOD COUNT 2.93 10^6/uL (4.35-5.55); RED CELL DISTRIBUTION WIDTH 22.6 % (11.5-14.0); WHITE BLOOD COUNT 6.5 10^3/uL (4.0-10.5)
[2017-06-11 00:12] LABS: ALANINE AMINOTRANSFERASE 37 U/L (21-72); ALBUMIN 4.9 g/dL (3.5-5.0); ALKALINE PHOSPHATASE 129 U/L (38-126); ANION GAP 13 (5-19); ASPARTATE AMINO TRANSFERASE 54 U/L (17-59); BILIRUBIN,DIRECT 0.6 mg/dL (0.0-0.4); BILIRUBIN,TOTAL 1.8 mg/dL (0.2-1.3); BLOOD UREA NITROGEN 7 mg/dL (7-20); CALCIUM 9.8 mg/dL (8.4-10.2); CARBON DIOXIDE 27 mmol/L (22-30); CHLORIDE 106 mmol/L (98-107); CREATININE RESULT 0.77 mg/dL (0.52-1.25); GLUCOSE 109 mg/dL (75-110); POTASSIUM 4.4 mmol/L (3.6-5.0); SODIUM 145.7 mmol/L (137-145); TOTAL PROTEIN 8.9 g/dL (6.3-8.2)
[2017-06-11 00:24] LABS: BASOPHILS % (MANUAL) 0 % (0-2); EOSINOPHILS % (MANUAL) 1 % (0-6); LYMPHOCYTES % (MANUAL) 53 % (13-45); NUCLEATED RED BLOOD CELLS 8 /100 WBC (0); TOTAL CELLS COUNTED 100
[2017-06-11 00:33] LABS: ANISOCYTOSIS 3+; HOWELL-JOLLY BODIES PRESENT; OVALOCYTES 1+; POIKILOCYTOSIS 2+; POLYCHROMASIA 2+; TARGET CELLS 2+
[2017-06-11] MEDS ORDERED: ONDANSETRON HCL INJ/PF 4 MG/2 ML SDV IV ONE (06:28)
[2017-06-11] MEDS ORDERED: CIPROFLOXACIN HCL 500 MG TABLET PO ONE (06:28)
[2017-06-11] MEDS ORDERED: DIPHENHYDRAMINE HCL 50 MG/ML VIAL IV ONE (06:28)
[2017-06-11] MEDS ORDERED: NORMAL SALINE 1000 ML 1,000 ML IV ONE (06:28)
[2017-06-11] MEDS ORDERED: HYDROMORPHONE HCL INJ/PF 2 MG/ML AMPULE IV ONE (06:28)
--- NOTE | 2017-06-11 06:50 | ER Document Report ---
ED General - General Chief Complaint: Sickle Cell Crisis Stated Complaint: POSSIBLE PAIN CRISIS Time Seen by Provider: 06/10/17 23:30 Mode of Arrival: Ambulatory Information source: Patient Notes: 21 yr old male presents with complaints of pain. Pt notes he is having chest pain, back pain, left knee pain of 1 week duration. pt denies any fevers or chills. pt notes no burning on urination.denies any nausea or vomiting. TRAVEL OUTSIDE OF THE [place] IN LAST 30 DAYS: No - HPI Onset: Last week Onset/Duration: Persistent Quality of pain: Achy Severity: Mild Pain Level: 1 Associated symptoms: Body/muscle aches, Chest pain Exacerbated by: Denies Relieved by: Denies Similar symptoms previously: Yes Recently seen / treated by doctor: Yes - Related Data Allergies/Adverse Reactions: Coconut * [Coconut] Allergy (Mild, Verified 06/10/17 22:04) transpore tape Allergy (Mild, Uncoded 06/10/17 22:04) Hives Past Medical History - General Information source: Patient - Social History Smoking Status: Never Smoker Cigarette use (# per day): No Chew tobacco use (# tins/day): No Smoking Education Provided: No Family History: Reviewed & Not Pertinent, Arthritis, DM, Hypertension, Other - Sickle cell trait both parents and asthma Patient has suicidal ideation: No Patient has homicidal ideation: No Pulmonary Medical History: Reports: Hx Asthma, Hx Pneumonia Renal/ Medical History: Denies: Hx Peritoneal Dialysis Psychiatric Medical History: Denies: Hx Depression Past Surgical History: Reports: Hx Abdominal Surgery - Gallstones removal, Hx Cholecystectomy, Hx Orthopedic Surgery - Fluid drained from right foot, Hx Vascular Surgery - Port placement - Immunizations Immunizations up to date: Yes Hx Diphtheria, Pertussis, Tetanus Vaccination: Yes Hx Pneumococcal Vaccination: 01/15/13 Review of Systems - Review of Systems Notes: REVIEW OF SYSTEMS: CONSTITUTIONAL : Denies fever, chills, or sweats. Denies recent illness. EENT: Denies eye, ear, throat, or mouth pain or symptoms. Denies nasal or sinus congestion or discharge. Denies throat, tongue, or mouth swelling or difficulty swallowing. CARDIOVASCULAR: admits to chest pain RESPIRATORY: Denies cough, cold, or chest congestion. Denies shortness of breath, difficulty breathing, or wheezing. GASTROINTESTINAL: Denies abdominal pain or distention. Denies nausea, vomiting , or diarrhea. Denies blood in vomitus, stools, or per rectum. Denies black, tarry stools. Denies constipation. GENITOURINARY: Denies difficulty urinating, painful urination, burning, frequency, blood in urine, or discharge. MUSCULOSKELETAL: admits to knee pain SKIN: Denies rash, lesions or sores. HEMATOLOGIC : Denies easy bruising or bleeding. LYMPHATIC: Denies swollen, enlarged glands. NEUROLOGICAL: Denies confusion or altered mental status. Denies passing out or loss of consciousness. Denies dizziness or lightheadedness. Denies headache. Denies weakness or paralysis or loss of use of either side. Denies problems with gait or speech. Denies sensory loss, numbness, or tingling. Denies seizures. PSYCHIATRIC: Denies anxiety or stress. Denies depression, suicidal ideation, or homicidal ideation. ALL OTHER SYSTEMS REVIEWED AND NEGATIVE. Dictation was performed using [employer] voice recognition software PHYSICAL EXAMINATION: GENERAL: Well-appearing, well-nourished and in no acute distress. playing on his phone in no distress HEAD: Atraumatic, normocephalic. EYES: Pupils equal round and reactive to light, extraocular movements intact, sclera anicteric, conjunctiva are normal. ENT: Nares patent, oropharynx clear without exudates. Moist mucous membranes. NECK: Normal range of motion, supple without lymphadenopathy LUNGS: Breath sounds clear to auscultation bilaterally and equal. No wheezes rales or rhonchi. HEART: Regular rate and rhythm without murmurs ABDOMEN: Soft, nontender, nondistended abdomen. No guarding, no rebound. No masses appreciated. Musculoskeletal: Normal range of motion, no pitting or edema. No cyanosis. NEUROLOGICAL: Cranial nerves grossly intact. Normal speech, normal gait. Normal sensory, motor exams PSYCH: Normal mood, normal affect. SKIN: Warm, Dry, normal turgor, no rashes or lesions noted. Physical Exam - Vital signs Vitals: Temp Pulse Resp BP Pulse Ox 98.9 F 114 H 20 146/87 H 95 06/10/17 22:07 06/10/17 22:07 06/10/17 22:07 06/10/17 22:07 06/10/17 22:07 Course - Re-evaluation Re-evalutation: 06/11/17 06:09 Patient was immediately seen upon my arrival , lab work had already been performed, he appears to be having a pain crisis. Patient does note he has been soaking in the tub and is noted to have urinary tract infection which is new. He will be started on antibiotics. He was given fluids pain control nausea control and Benadryl IV at his request. I have very low suspicion for acute chest pain syndrome with this patient. He will be started on Cipro for his urinary tract infection and must see his business systems advisor pt demanded 2 mg iv dilaudid, benadryl iv , nausea control Patient has fentanyl and oxycodone at home 06/11/17 08:12 I was notified by nursing the patient wishes to be admitted, I do not believe he meets criteria for admission, nonetheless I did speak with his primary care physician and offered admission. Dr. Stanton believes patient is stable for discharge and able to take his antibiotics as prescribed 06/11/17 09:51 Patient has been reevaluated multiple times, he has been in no distress, patient notes he has no pain medications at home which he did not admit to initially. pt isntructed ot talk to his pcp for pain control. 06/11/17 09:52 06/11/17 15:01 After performing a Medical Screening Examination, I estimate there is LOW risk for RUPTURED ESOPHAGUS, PNEUMOTHORAX, PULMONARY EMBOLISM, ACUTE CORONARY SYNDROME, OR THORACIC AORTIC DISSECTION, thus I consider the discharge disposition reasonable. I have reevaluated this patient multiple times and no significant life threatening changes are noted. The patient and I have discussed the diagnosis and risks, and we agree with discharging home with close follow-up. We also discussed returning to the Emergency Department immediately if new or worsening symptoms occur. We have discussed the symptoms which are most concerning (e.g., bloody sputum, worsening pain or shortness of breath) that necessitate immediate return. - Vital Signs Vital signs: Temp Pulse Resp BP Pulse Ox 98.6 F 106 H 16 142/89 H 96 06/11/17 08:14 06/11/17 09:59 06/11/17 09:59 06/11/17 09:59 06/11/17 09:59 - Laboratory Result Diagrams: 06/10/17 23:45 06/10/17 23:45 Laboratory results interpreted by me: 06/10/17 06/10/17 06/10/17 22:10 23:45 23:45 RBC 2.93 L Hgb 11.7 L Hct 33.2 L MCV 113 H MCH 39.9 H RDW 22.6 H Seg Neuts % (Manual) 32 L Lymphocytes % (Manual) 53 H Monocytes % (Manual) 14 H Retic Count (auto) 11.01 H Absolute Retic 0.323 H Sodium 145.7 H Total Bilirubin 1.8 H Direct Bilirubin 0.6 H Alkaline Phosphatase 129 H Total Protein 8.9 H Urine Protein 100 H Urine Blood SMALL H Urine Urobilinogen 4.0 H Ur Leukocyte Esterase LARGE H Discharge - Discharge Clinical Impression: Sickle cell crisis UTI (urinary tract infection) Qualifiers: Urinary tract infection type: acute cystitis Hematuria presence: without hematuria Qualified Code(s): N30.00 - Acute cystitis without hematuria Condition: Stable Disposition: HOME, SELF-CARE Instructions: Urinary Tract Infection ([facility]) Additional Instructions: You must follow-up with your business systems advisor today for reevaluation return immediately if there are any other concerns Prescriptions: Ciprofloxacin HCl [Cipro 500 mg Tablet] 500 mg PO BID #20 tablet
--- NOTE | 2017-06-11 09:10 | RADIOLOGY REPORT (SQ) ---
EXAM DESCRIPTION: CHEST PA/LAT COMPLETED DATE/TIME: 06/11/2017 8:47 am REASON FOR STUDY: chest pain sickle cell COMPARISON: Chest films 05/13/2017, 04/22/2017, 04/03/2017 EXAM PARAMETERS: NUMBER OF VIEWS: two views TECHNIQUE: Digital Frontal and Lateral radiographic views of the chest acquired. RADIATION DOSE: NA LIMITATIONS: none FINDINGS: Since the prior films, the patient has a right upper arm permanent central line tip has flipped up into the right jugular vein. LUNGS AND PLEURA: No opacities, masses or pneumothorax. No pleural effusion. MEDIASTINUM AND HILAR STRUCTURES: No masses or contour abnormalities. HEART AND VASCULAR STRUCTURES: Heart normal size. No evidence for failure. BONES: Extensive bony sclerosis of the bilateral humeral heads, ribs, and thoracic spine in a charact eristic pattern for sickle cell. HARDWARE: None in the chest. OTHER: No other significant finding. IMPRESSION: No acute infiltrates. Right-sided permanent central line tip has flipped from the SVC up into the right jugular TECHNICAL DOCUMENTATION: JOB ID: [id number]- All Rights Reserved
[2017-06-11 10:03] VITALS: BP 142/89
== END 2017-06-11 10:03 | disposition home or self-care (01) ==
LOC: ER 21:04
DX: D57.00 Hb-SS disease with crisis, unspecified (principal); N30.00 Acute cystitis without hematuria; R07.9 Chest pain, unspecified; M54.9 Dorsalgia, unspecified; M25.562 Pain in left knee; J45.909 Unspecified asthma, uncomplicated; Z91.018 Allergy to other foods; Z88.8 Allergy status to other drugs, medicaments and biological substances
CPT/HCPCS: 99284; 96361; 96374; 96375; 36415; 87086; 85025; 85045; 80053; 81001; 71020; J3490; J1200; J1170; J2405; J7030

== ENCOUNTER 2017-06-25 17:54 | Emergency (ER) | payer MEDICAID ==
--- NOTE | 2017-06-25 18:49 | ER Document Report ---
ED Medical Screen (RME) - General Chief Complaint: Knee Pain Stated Complaint: KNEE AND BACK PAIN Time Seen by Provider: 06/25/17 18:43 Notes: Patient complains of left knee and back pain. Patient has sickle cell, last admission was 1 month ago. He does state he has been seen several times this month already for the same. Denies fever, does have some nausea without vomiting. I have greeted and performed a rapid initial assessment of this patient. A comprehensive ED assessment and evaluation of the patient, analysis of test results and completion of the medical decision making process will be conducted by additional ED providers. TRAVEL OUTSIDE OF THE [place] IN LAST 30 DAYS: No - Related Data Allergies/Adverse Reactions: Coconut * [Coconut] Allergy (Mild, Verified 06/25/17 18:08) transpore tape Allergy (Mild, Uncoded 06/10/17 22:04) Hives Past Medical History - Social History Chew tobacco use (# tins/day): No Frequency of alcohol use: None Drug Abuse: None Family history: None Pulmonary Medical History: Reports: Hx Asthma, Hx Pneumonia Renal/ Medical History: Denies: Hx Peritoneal Dialysis Psychiatric Medical History: Denies: Hx Depression Past Surgical History: Reports: Hx Abdominal Surgery - Gallstones removal, Hx Cholecystectomy, Hx Orthopedic Surgery - Fluid drained from right foot, Hx Vascular Surgery - Port placement - Immunizations Immunizations up to date: Yes Hx Diphtheria, Pertussis, Tetanus Vaccination: Yes History of Influenza Vaccine for 06/2017 - 10/2017 Season: Yes Physical Exam - Vital signs Vitals: Temp Pulse BP Pulse Ox 99.3 F 107 H 141/88 H 93 06/25/17 18:07 06/25/17 18:07 06/25/17 18:07 06/25/17 18:07 Course - Vital Signs Vital signs: Temp Pulse Resp BP Pulse Ox 99.3 F 107 H 141/88 H 93 06/25/17 18:07 06/25/17 18:07 06/25/17 18:07 06/25/17 18:07
[2017-06-25] MEDS ORDERED: DIPHENHYDRAMINE HCL 50 MG/ML VIAL IV ONE ×2 (19:24→22:01)
[2017-06-25] MEDS ORDERED: HYDROMORPHONE HCL INJ/PF 2 MG/ML AMPULE IV ONE ×3 (19:24→22:01)
[2017-06-25] MEDS ORDERED: NORMAL SALINE 1000 ML 1,000 ML IV ONE ×2 (19:25)
[2017-06-25] MEDS ORDERED: ONDANSETRON HCL INJ/PF 4 MG/2 ML SDV IV ONE (19:25)
--- NOTE | 2017-06-25 19:28 | ER Document Report ---
ED General - General Chief Complaint: Knee Pain Stated Complaint: KNEE AND BACK PAIN Time Seen by Provider: 06/25/17 18:43 Notes: Patient is a 21-year-old male who comes emergency department for chief complaint of pain in his left knee and lower back, he states symptoms started earlier today, he has a history of sickle cell anemia, he states that he has felt some nausea but he denies vomiting, he denies abdominal pain, he denies shortness of breath or chest pain, denies cough, denies fever. He states he is compliant with his medications, he is on oxycodone and has a fentanyl patch as well. He continues to follow with local hematology. TRAVEL OUTSIDE OF THE [place] IN LAST 30 DAYS: No - Related Data Allergies/Adverse Reactions: Coconut * [Coconut] Allergy (Mild, Verified 06/25/17 18:08) transpore tape Allergy (Mild, Uncoded 06/10/17 22:04) Hives Past Medical History - General Information source: Patient - Social History Smoking Status: Never Smoker Chew tobacco use (# tins/day): No Frequency of alcohol use: None Drug Abuse: None Lives with: Family Family History: Reviewed & Not Pertinent, Arthritis, DM, Hypertension, Other - Sickle cell trait both parents and asthma Pulmonary Medical History: Reports: Hx Asthma, Hx Pneumonia Renal/ Medical History: Denies: Hx Peritoneal Dialysis Psychiatric Medical History: Denies: Hx Depression Past Surgical History: Reports: Hx Abdominal Surgery - Gallstones removal, Hx Cholecystectomy, Hx Orthopedic Surgery - Fluid drained from right foot, Hx Vascular Surgery - Port placement - Immunizations Immunizations up to date: Yes Hx Diphtheria, Pertussis, Tetanus Vaccination: Yes Hx Pneumococcal Vaccination: 01/15/13 Review of Systems - Review of Systems Constitutional: No symptoms reported EENT: No symptoms reported Cardiovascular: See HPI Respiratory: No symptoms reported Gastrointestinal: No symptoms reported Genitourinary: No symptoms reported Male Genitourinary: No symptoms reported Musculoskeletal: See HPI Skin: No symptoms reported Hematologic/Lymphatic: No symptoms reported Neurological/Psychological: No symptoms reported Physical Exam - Vital signs Vitals: Temp Pulse BP Pulse Ox 99.3 F 107 H 141/88 H 93 06/25/17 18:07 06/25/17 18:07 06/25/17 18:07 06/25/17 18:07 Interpretation: Normal - General General appearance: Appears well, Alert In distress: None - HEENT Head: Normocephalic, Atraumatic Eyes: Normal Pupils: PERRL - Respiratory Respiratory status: No respiratory distress Chest status: Nontender Breath sounds: Normal. No: Decreased air movement, Wheezing Chest palpation: Normal - Cardiovascular Rhythm: Regular, Tachycardia Heart sounds: Normal auscultation, S1 appreciated, S2 appreciated Murmur: No - Abdominal Inspection: Normal Distension: No distension Bowel sounds: Normal Tenderness: Nontender. No: Tender, Guarding Organomegaly: No organomegaly - Back Back: Normal, Nontender. No: Tender, CVA tenderness - Extremities General upper extremity: Normal inspection, Nontender, Normal ROM, Normal strength General lower extremity: Normal inspection, Nontender, Normal ROM, Normal strength - Neurological Neuro grossly intact: Yes Cognition: Normal Orientation: AAOx4 Rodo Coma Scale Eye Opening: Spontaneous Rodo Coma Scale Verbal: Oriented Rodo Coma Scale Motor: Obeys Commands [place] Coma Scale Total: 15 Speech: Normal Cranial nerves: Normal Cerebellar coordination: Normal Motor strength normal: LUE, RUE, LLE, RLE Additional motor exam normals: Equal clinical studies specialist Sensory: Normal - Psychological Associated symptoms: Normal affect, Normal mood - Skin Skin Temperature: Warm Skin Moisture: Dry Skin Color: Normal Course - Re-evaluation Re-evalutation: Patient borderline tachycardic on initial examination although he does not appear to be in any distress. Unremarkable knee and back examination in the locations of pain. No neurological deficits. No fever. CBC shows mild leukocytosis, macrocytic anemia at 9.7, reticulocytes slightly less elevated than a couple of days ago. Bilirubin is only mildly elevated. No evidence of severe cycling. After IV fluids tachycardia resolved. Patient given 2 doses of pain medication. I reevaluated patient at bedside. Patient states he feels great. He denies any current symptoms. He states he is ready to leave. 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 He states he will return if he worsens including fever, difficulty breathing, vomiting. Patient discharged for follow- up with hematology. - Vital Signs Vital signs: Temp Pulse Resp BP Pulse Ox 98.3 F 99 18 132/91 H 95 06/25/17 21:53 06/25/17 21:53 06/25/17 21:53 06/25/17 21:53 06/25/17 21:53 - Laboratory Result Diagrams: 06/25/17 20:18 06/25/17 19:45 Laboratory results interpreted by me: 06/25/17 06/25/17 06/25/17 19:45 20:15 20:18 WBC 10.7 H RBC 2.55 L Hgb 9.7 L Hct 27.3 L MCV 107 H D MCH 38.0 H RDW 24.8 H Band Neutrophils % 1 L Retic Count (auto) 10.40 H Absolute Retic 0.268 H Sodium 145.9 H Total Bilirubin 2.1 H Direct Bilirubin 0.8 H Total Protein 8.4 H Urine Urobilinogen Ur Leukocyte Esterase 06/25/17 21:33 WBC RBC Hgb Hct MCV MCH RDW Band Neutrophils % Retic Count (auto) Absolute Retic Sodium Total Bilirubin Direct Bilirubin Total Protein Urine Urobilinogen 4.0 H Ur Leukocyte Esterase TRACE H Discharge - Discharge Clinical Impression: Sickle cell crisis Sickle cell anemia Qualifiers: Sickle-cell associated disorders: with unspecified crisis Qualified Code(s): D57.00 - Hb-SS disease with crisis, unspecified Knee pain, left Qualifiers: Chronicity: acute Qualified Code(s): M25.562 - Pain in left knee Condition: Stable Disposition: HOME, SELF-CARE Additional Instructions: Continue current medications, stay hydrated, rest. Follow-up with your primary care provider. Return to the emergency department if you worsen including fever , vomiting, worsening pain, or any other concerning symptoms.
[2017-06-25 20:30] LABS: HEMATOCRIT 27.3 % (37.9-51.0); HEMOGLOBIN 9.7 g/dL (13.5-17.0); HGB HCT DIFFERENCE 1.8; MEAN CORPUSCULAR HGB CONC 35.5 g/dL (32.0-36.0); RED BLOOD COUNT 2.55 10^6/uL (4.35-5.55); RED CELL DISTRIBUTION WIDTH 24.8 % (11.5-14.0); WHITE BLOOD COUNT 10.7 10^3/uL (4.0-10.5)
[2017-06-25 20:32] LABS: MEAN CORPUSCULAR VOLUME 107 fl (80-97)
[2017-06-25 20:37] LABS: BAND NEUTROPHILS % (MANUAL) 1 % (3-5); BASOPHILS % (MANUAL) 0 % (0-2); EOSINOPHILS % (MANUAL) 3 % (0-6); LYMPHOCYTES % (MANUAL) 23 % (13-45); NUCLEATED RED BLOOD CELLS 2 /100 WBC (0); TOTAL CELLS COUNTED 100
[2017-06-25 20:39] LABS: POIKILOCYTOSIS 3+; POLYCHROMASIA SLIGHT
[2017-06-25 20:40] LABS: ALANINE AMINOTRANSFERASE 32 U/L (21-72); ALBUMIN 4.4 g/dL (3.5-5.0); ALKALINE PHOSPHATASE 113 U/L (38-126); ANION GAP 13 (5-19); ASPARTATE AMINO TRANSFERASE 55 U/L (17-59); BILIRUBIN,DIRECT 0.8 mg/dL (0.0-0.4); BILIRUBIN,TOTAL 2.1 mg/dL (0.2-1.3); BLOOD UREA NITROGEN 8 mg/dL (7-20); CALCIUM 9.2 mg/dL (8.4-10.2); CARBON DIOXIDE 28 mmol/L (22-30); CHLORIDE 105 mmol/L (98-107); GLUCOSE 107 mg/dL (75-110); POTASSIUM 3.9 mmol/L (3.6-5.0); SODIUM 145.9 mmol/L (137-145); TOTAL PROTEIN 8.4 g/dL (6.3-8.2)
[2017-06-25 20:40] LABS: ANISOCYTOSIS 2+; HELMET CELLS SLIGHT; OVALOCYTES 1+; TARGET CELLS SLIGHT; TEAR DROP CELLS SLIGHT
[2017-06-25 21:53] LABS: APPEARANCE,URINE CLEAR; BILIRUBIN,URINE NEGATIVE (NEGATIVE); GLUCOSE, URINE NEGATIVE (NEGATIVE); KETONES,URINE NEGATIVE (NEGATIVE); LEUKOCYTE ESTERASE,URINE TRACE (NEGATIVE); NITRITE,URINE NEGATIVE (NEGATIVE); PROTEIN,URINE NEGATIVE (NEGATIVE); URINE SPECIFIC GRAVITY 1.006
[2017-06-25 21:54] VITALS: BP 132/91
== END 2017-06-25 22:27 | disposition home or self-care (01) ==
LOC: ER 17:54
DX: D57.00 Hb-SS disease with crisis, unspecified (principal); M25.562 Pain in left knee; M54.5 Low back pain; D64.9 Anemia, unspecified; D72.829 Elevated white blood cell count, unspecified; J45.909 Unspecified asthma, uncomplicated; Z79.891 Long term (current) use of opiate analgesic; Z91.018 Allergy to other foods; Z88.8 Allergy status to other drugs, medicaments and biological substances
CPT/HCPCS: 36591; 96376; 99283; 96361; 96374; 96375; 36415; 87086; 85025; 85045; 80053; 81001; J1200; J1170; J2405; J7030

== ENCOUNTER 2017-08-01 18:42 | Inpatient (IN) | payer MEDICAID ==
--- NOTE | 2017-08-01 19:19 | ER Document Report ---
ED Medical Screen (RME) - General Chief Complaint: Sickle Cell Crisis Stated Complaint: CHEST PAIN,VOMITING Time Seen by Provider: 08/01/17 19:14 Mode of Arrival: Ambulatory Information source: Patient TRAVEL OUTSIDE OF THE [place] IN LAST 30 DAYS: No - HPI Onset: Other - 2 DAYS Onset/Duration: Gradual Context: Hx SS DISEASE Quality of pain: Achy, Throbbing Severity: Moderate Associated Symptoms: Nausea, Vomiting Exacerbated by: Movement, Other - VOMITING Relieved by: Denies Similar symptoms previously: Yes Recently seen / treated by doctor: No - Related Data Smoking: Non-smoker Frequency of alcohol use: None Drug Abuse: None Allergies/Adverse Reactions: Coconut * [Coconut] Allergy (Mild, Verified 08/01/17 18:44) transpore tape Allergy (Mild, Uncoded 06/10/17 22:04) Hives Past Medical History - General Information source: Patient - Social History Cigarette use (# per day): No Chew tobacco use (# tins/day): No Frequency of alcohol use: None Drug Abuse: None Lives with: Family Family history: None - Past Medical History Cardiac Medical History: Reports: None Pulmonary Medical History: Reports: Hx Asthma, Hx Pneumonia Neurological Medical History: Reports: None Endocrine Medical History: Reports: None Renal/ Medical History: Reports: None. Denies: Hx Peritoneal Dialysis Malignancy Medical History: Reports Other - SS DISEASE Psychiatric Medical History: Denies: Hx Depression Past Surgical History: Reports: Hx Abdominal Surgery - Gallstones removal, Hx Cholecystectomy, Hx Orthopedic Surgery - Fluid drained from right foot, Hx Vascular Surgery - Port placement - Immunizations Immunizations up to date: Yes Hx Diphtheria, Pertussis, Tetanus Vaccination: Yes History of Influenza Vaccine for 06/2017 - 10/2017 Season: Yes Review of Systems - Review of Systems Constitutional: denies: Chills, Fever EENT: No symptoms reported Cardiovascular: No symptoms reported. denies: Chest pain Respiratory: No symptoms reported. denies: Short of breath Gastrointestinal: See HPI, Abdominal pain Genitourinary: No symptoms reported Musculoskeletal: See HPI Physical Exam - Vital signs Vitals: Temp Pulse Resp BP Pulse Ox 98.7 F 105 H 19 132/91 H 92 08/01/17 18:51 08/01/17 18:51 08/01/17 18:51 08/01/17 18:51 08/01/17 18:51 Interpretation: Hypertensive, Tachycardic. No: Tachypneic, Febrile - General General appearance: Anxious In distress: Mild - HEENT Head: Normocephalic Eyes: Normal. No: Pale conjunctiva Conjunctiva: Normal Ears: Normal Nasal: Normal Mouth/Lips: Normal Mucous membranes: Normal - Respiratory Respiratory status: No respiratory distress - Cardiovascular Rhythm: Regular, Tachycardia - Neurological Neuro grossly intact: Yes Cognition: Normal Orientation: AAOx4 - Psychological Associated symptoms: Normal affect, Normal mood Course - Vital Signs Vital signs: Temp Pulse Resp BP Pulse Ox 98.7 F 105 H 19 132/91 H 92 08/01/17 18:51 08/01/17 18:51 08/01/17 18:51 08/01/17 18:51 08/01/17 18:51
[2017-08-01] MEDS ORDERED: ONDANSETRON HCL INJ/PF 4 MG/2 ML SDV IV ONE (19:20)
[2017-08-01] MEDS ORDERED: HYDROMORPHONE HCL INJ/PF 2 MG/ML AMPULE IV ONE (19:20)
[2017-08-01] MEDS ORDERED: NORMAL SALINE 1000 ML 1,000 ML IV ONE (19:20)
[2017-08-01] MEDS ORDERED: DIPHENHYDRAMINE HCL 50 MG/ML VIAL IV ONE (19:36)
--- NOTE | 2017-08-01 19:39 | ER Document Report ---
ED General - General Chief Complaint: Sickle Cell Crisis Stated Complaint: CHEST PAIN,VOMITING Time Seen by Provider: 08/01/17 19:14 Mode of Arrival: Ambulatory Notes: Patient is a 22-year-old male with a past medical history of sickle cell ( hemoglobin SS), chronic opiate dependence, prior gallstone resections without a cholecystectomy who presents with 24 hours of low back pain, diffuse upper abdominal pain and bilious vomiting. Patient describes the pain in his low back and upper abdomen as being a constant, cramping, irritating pain. Nothing improves or worsens the pain. He states that the pain in his low back is typical for sickle cell crisis but notes that he does not usually develop abdominal pain with his sickle cell crises nor does he typically vomit. Patient does show me a picture of his vomitus from earlier today and it is noted to be a kesha, bright green. He denies any history of similar episodes of vomiting in the past. He has not seen his primary doctor regarding today's concerns. He has not had any fever or altered mental status. TRAVEL OUTSIDE OF THE [place] IN LAST 30 DAYS: No - Related Data Allergies/Adverse Reactions: Coconut * [Coconut] Allergy (Mild, Verified 08/01/17 18:44) transpore tape Allergy (Mild, Uncoded 06/10/17 22:04) Hives Past Medical History - General Information source: Patient - Social History Smoking Status: Never Smoker Cigarette use (# per day): No Chew tobacco use (# tins/day): No Frequency of alcohol use: None Drug Abuse: None Lives with: Family Family History: Reviewed & Not Pertinent, Arthritis, DM, Hypertension, Other - Sickle cell trait both parents and asthma Patient has suicidal ideation: No Patient has homicidal ideation: No - Past Medical History Cardiac Medical History: Reports: None Pulmonary Medical History: Reports: Hx Asthma, Hx Pneumonia Neurological Medical History: Reports: None Endocrine Medical History: Reports: None Renal/ Medical History: Reports: None. Denies: Hx Peritoneal Dialysis Malignancy Medical History: Reports Other - SS DISEASE Psychiatric Medical History: Denies: Hx Depression Past Surgical History: Reports: Hx Abdominal Surgery - Gallstones removal, Hx Cholecystectomy, Hx Orthopedic Surgery - Fluid drained from right foot, Hx Vascular Surgery - Port placement - Immunizations Immunizations up to date: Yes Hx Diphtheria, Pertussis, Tetanus Vaccination: Yes Hx Pneumococcal Vaccination: 01/15/13 Review of Systems - Review of Systems Notes: Constitutional: Negative for fever. HENT: Negative for sore throat. Eyes: Negative for visual changes. Cardiovascular: Negative for chest pain. Respiratory: Negative for shortness of breath. Gastrointestinal: Positive for abdominal pain and bilious vomiting Genitourinary: Negative for dysuria. Musculoskeletal: Positive for back pain. Skin: Negative for rash. Neurological: Negative for headaches, weakness or numbness. 10 point ROS negative except as marked above and in HPI. Physical Exam - Vital signs Vitals: Temp Pulse Resp BP Pulse Ox 98.7 F 105 H 19 132/91 H 92 08/01/17 18:51 08/01/17 18:51 08/01/17 18:51 08/01/17 18:51 08/01/17 18:51 Interpretation: Tachycardic Notes: PHYSICAL EXAMINATION: GENERAL: Appears uncomfortable but in no acute distress HEAD: Atraumatic, normocephalic. EYES: Pupils equal round and reactive to light, extraocular movements intact, sclera anicteric, conjunctiva are normal. ENT: nares patent, oropharynx clear without exudates. Dry mucous membranes. NECK: Normal range of motion, supple without lymphadenopathy LUNGS: Breath sounds clear to auscultation bilaterally and equal. No wheezes rales or rhonchi. HEART: Regular tachycardia without murmurs ABDOMEN: Soft, diffuse tenderness on palpation of the upper abdomen. No rebound or guarding. EXTREMITIES: Normal range of motion, no pitting or edema. No cyanosis. NEUROLOGICAL: No focal neurological deficits. Moves all extremities spontaneously and on command. PSYCH: Normal mood, normal affect. SKIN: Warm, Dry, or turgor, no rashes or lesions noted. Course - Re-evaluation Re-evalutation: 08/01/17 19:37 Patient presents with pain typical for sickle cell pain crisis although I am much more concerned about bilious vomiting. Patient shows me a picture of his vomitus earlier today and is a Kesha green color in the toilet worrisome for a small bowel inflammation or obstruction. Patient has been unable to tolerate oral intake now for almost 24 hours. He does have a history of prior gallstone resections but they did not take his gallbladder. This also raises a concern for possible acute cholecystitis. On abdominal examination patient does have focal epigastric and right upper quadrant abdominal tenderness but no rebound or guarding. Patient is also quite dehydrated on examination and is notably tachycardic to 120s at time of my assessment. Will proceed with CT the abdomen pelvis, IV fluids, pain control and reassess - Vital Signs Vital signs: Temp Pulse Resp BP Pulse Ox 98.7 F 105 H 19 115/65 88 L 08/01/17 18:51 08/01/17 18:51 08/01/17 18:51 08/01/17 20:45 08/01/17 22:15 - Laboratory Result Diagrams: 08/01/17 19:55 08/01/17 19:55 Laboratory results interpreted by me: 08/01/17 08/01/17 08/01/17 19:20 19:45 19:55 WBC 13.4 H RBC 2.65 L Hgb 9.4 L Hct 26.9 L MCV 101 H MCH 35.4 H RDW 26.2 H Band Neutrophils % 1 L Metamyelocytes % 1 H Abs Neuts (Manual) 9.5 H Retic Count (auto) 14.89 H Absolute Retic 0.395 H Glucose POC Glucose 140 H Total Bilirubin Direct Bilirubin AST Alkaline Phosphatase Total Protein Albumin Urine Protein 100 H Urine Blood MODERATE H Urine Urobilinogen 2.0 H Ur Leukocyte Esterase MODERATE H 08/01/17 19:55 WBC RBC Hgb Hct MCV MCH RDW Band Neutrophils % Metamyelocytes % Abs Neuts (Manual) Retic Count (auto) Absolute Retic Glucose 123 H POC Glucose Total Bilirubin 4.2 H Direct Bilirubin 1.1 H AST 97 H Alkaline Phosphatase 140 H Total Protein 9.3 H Albumin 5.1 H Urine Protein Urine Blood Urine Urobilinogen Ur Leukocyte Esterase - Diagnostic Test Radiology reviewed: Image reviewed, Reports reviewed Radiology results interpreted by me: 08/01/17 23:21 Chest x-ray: Pulmonary edema and cardiomegaly Critical Care Note - Critical Care Note Total time excluding time spent on procedures (mins): 38 Comments: Critical care time spent obtaining history from patient or surrogate, discussions with consultants, development of treatment plan with patient or surrogate, evaluation of patient's response to treatment, examination of patient , ordering and performing treatments and interventions, ordering and review of laboratory studies, re-evaluation of patient's condition, ordering and review of radiographic studies and review of old charts Discharge - Discharge Clinical Impression: Pyelonephritis, Sickle cell crisis Bilious vomiting Qualifiers: Nausea presence: with nausea Qualified Code(s): R11.14 - Bilious vomiting Condition: Fair Disposition: ADMITTED OBSERVATION Admitting Provider: Maximino Unit Admitted: Telemetry Referrals: ANDREW WILLIS MD [Primary Care Provider] - Follow up as needed
[2017-08-01 19:44] LABS: APPEARANCE,URINE CLOUDY; BILIRUBIN,URINE NEGATIVE (NEGATIVE); GLUCOSE, URINE NEGATIVE (NEGATIVE); KETONES,URINE NEGATIVE (NEGATIVE); LEUKOCYTE ESTERASE,URINE MODERATE (NEGATIVE); NITRITE,URINE NEGATIVE (NEGATIVE); PROTEIN,URINE 100 mg/dL (NEGATIVE); URINE SPECIFIC GRAVITY 1.013
[2017-08-01] MEDS: HYDROMORPHONE HCL INJ/PF 2 MG/ML AMPULE IV PRN ×3 (19:53→21:53)
[2017-08-01 19:59] LABS: URINE BARBITURATES SCREEN NEGATIVE; URINE METHADONE SCREEN NEGATIVE; URINE OPIATES LOW NEGATIVE; URINE PHENCYCLIDINE SCREEN NEGATIVE
[2017-08-01 20:21] LABS: HEMATOCRIT 26.9 % (37.9-51.0); HEMOGLOBIN 9.4 g/dL (13.5-17.0); HGB HCT DIFFERENCE 1.3; MEAN CORPUSCULAR HEMOGLOBIN 35.4 pg (27.0-33.4); MEAN CORPUSCULAR VOLUME 101 fl (80-97); RED BLOOD COUNT 2.65 10^6/uL (4.35-5.55); RED CELL DISTRIBUTION WIDTH 26.2 % (11.5-14.0); WHITE BLOOD COUNT 13.4 10^3/uL (4.0-10.5)
--- NOTE | 2017-08-01 20:28 | RADIOLOGY REPORT (SQ) ---
EXAM DESCRIPTION: CHEST SINGLE VIEW COMPLETED DATE/TIME: 08/01/2017 8:12 pm REASON FOR STUDY: eval acute chest COMPARISON: 06/11/2017 EXAM PARAMETERS: NUMBER OF VIEWS: One view. TECHNIQUE: Single frontal radiographic view of the chest acquired. RADIATION DOSE: NA LIMITATIONS: None. FINDINGS: LUNGS AND PLEURA: No opacities, masses or pneumothorax. No pleural effusion. MEDIASTINUM AND HILAR STRUCTURES: No masses. Contour normal. HEART AND VASCULAR STRUCTURES: Heart normal in size. Normal vasculature. BONES: Stable chronic changes compatible with sickle cell disease. HARDWARE: Patient's right-sided port with tip remaining presumably in the right internal jugular vein . OTHER: No other significant finding. IMPRESSION: NO ACUTE RADIOGRAPHIC FINDING IN THE CHEST. STABLE MALPOSITION RIGHT-SIDED PORT WHICH SHOULD NOT BE USED UNTIL REPOSITIONED. TECHNICAL DOCUMENTATION: JOB ID: [id number] [employer]- All Rights Reserved
[2017-08-01 20:36] LABS: ALANINE AMINOTRANSFERASE 27 U/L (21-72); ALBUMIN 5.1 g/dL (3.5-5.0); ALKALINE PHOSPHATASE 140 U/L (38-126); ANION GAP 16 (5-19); ASPARTATE AMINO TRANSFERASE 97 U/L (17-59); BILIRUBIN,DIRECT 1.1 mg/dL (0.0-0.4); BILIRUBIN,TOTAL 4.2 mg/dL (0.2-1.3); BLOOD UREA NITROGEN 14 mg/dL (7-20); CALCIUM 9.7 mg/dL (8.4-10.2); CARBON DIOXIDE 29 mmol/L (22-30); CHLORIDE 100 mmol/L (98-107); CREATININE RESULT 0.74 mg/dL (0.52-1.25); GLUCOSE 123 mg/dL (75-110); LIPASE 67.2 U/L (23-300); POTASSIUM 4.6 mmol/L (3.6-5.0); SODIUM 144.6 mmol/L (137-145); TOTAL PROTEIN 9.3 g/dL (6.3-8.2)
[2017-08-01 20:45] LABS: BAND NEUTROPHILS % (MANUAL) 1 % (3-5); BASOPHILS % (MANUAL) 0 % (0-2); EOSINOPHILS % (MANUAL) 0 % (0-6); LYMPHOCYTES % (MANUAL) 24 % (13-45); NUCLEATED RED BLOOD CELLS 13 /100 WBC (0); TOTAL CELLS COUNTED 100
[2017-08-01 20:49] LABS: ANISOCYTOSIS 3+; OVALOCYTES SLIGHT; POLYCHROMASIA 1+; TARGET CELLS 1+
[2017-08-01 20:54] LABS: POIKILOCYTOSIS 2+; TEAR DROP CELLS SLIGHT
[2017-08-01 20:55] LABS: STAIN REACTIVITY CHECK ACCEPTABLE
[2017-08-01] MEDS ORDERED: CEFTRIAXONE 1 GM/D5W RTU 1 GM/50 ML RTUPB IV ONE (21:05)
[2017-08-01] MEDS ORDERED: DIPHENHYDRAMINE HCL 50 MG/ML VIAL ONE (21:42)
--- NOTE | 2017-08-01 22:04 | RADIOLOGY REPORT (SQ) ---
EXAM DESCRIPTION: CT ABD/PELVIS NO ORAL OR IV COMPLETED DATE/TIME: 08/01/2017 9:49 pm REASON FOR STUDY: eval obstruction COMPARISON: 11/26/2015 TECHNIQUE: CT scan of the abdomen and pelvis performed without intravenous or oral contrast. Images reviewed with lung, soft tissue, and bone windows. Reconstructed coronal and sagittal MPR images revi ewed. All images stored on PACS. All CT scanners at this facility use dose modulation, iterative reconstruction, and/or weight based d osing when appropriate to reduce radiation dose to as low as reasonably achievable (ALARA). [facility]: Dose Right [facility]: CareDose [facility]: Dose Right [facility]: Teradose 4D [facility]: Spotlight.fm RADIATION DOSE: mGy. LIMITATIONS: None. FINDINGS: LOWER CHEST: Chronic lower lung opacities stable from the previous study. NON-CONTRASTED LIVER, SPLEEN, ADRENALS: Evaluation limited by lack of IV contrast. No identified sign ificant masses. 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 No peripancreatic inflammatory changes. GALLBLADDER: Choose 2 RIGHT KIDNEY AND URETER: No suspicious masses. Assessment limited by lack of IV contrast. No signif icant calcifications. No hydronephrosis or hydroureter. LEFT KIDNEY AND URETER: No suspicious masses. Assessment limited by lack of IV contrast. No signifi cant calcifications. No hydronephrosis or hydroureter. AORTA AND RETROPERITONEUM: No aneurysm. No retroperitoneal masses or adenopathy. BOWEL AND PERITONEAL CAVITY: No obvious masses or inflammatory changes. No free fluid. APPENDIX: Normal. PELVIS, BLADDER, AND ABDOMINAL WALL:No abnormal masses. No free fluid. Bladder normal. BONES: Bone changes related to sickle cell disease. OTHER: No other significant finding. IMPRESSION: No acute findings. Chronic lung disease. auto splenectomy. Bone changes of sickle cell disease. COMMENT: Quality ID # [id number]: Final reports with documentation of one or more dose reduction techniques (e.g., Automated exposure control, adjustment of the mA and/or kV according to patient size, use of iterative reconstruction technique) TECHNICAL DOCUMENTATION: JOB ID: [id number]- All Rights Reserved
[2017-08-02] MEDS ORDERED: HYDROMORPHONE HCL INJ/PF 2 MG/ML AMPULE IV ONE (03:39)
[2017-08-02] MEDS ORDERED: ACETAMINOPHEN 325 MG TABLET PO PRN (08:23)
[2017-08-02] MEDS ORDERED: LANSOPRAZOLE 30 MG TAB.RAP.DR PO ONE (09:00)
[2017-08-02] MEDS: HYDROMORPHONE HCL INJ/PF 2 MG/ML AMPULE IV PRN ×4 (09:13→22:56)
[2017-08-02] MEDS: NORMAL SALINE 1000 ML 1,000 ML IV PRN (09:16)
[2017-08-02] MEDS: ENOXAPARIN SODIUM INJ 40 MG/0.4 ML DISP.SYRIN SUBCUT SCH (10:26)
[2017-08-02] MEDS: HYDROXYUREA 500 MG CAPSULE PO SCH (10:27)
[2017-08-02] MEDS: FOLIC ACID 1 MG TABLET PO SCH (10:28)
--- NOTE | 2017-08-02 15:31 | PDOC H&P ---
History of Present Illness Admission Date/PCP: 08/01/17 23:42 ANDREW LAZARO Patient complains of: Nausea, vomiting, Abdominal pain History of Present Illness: MARINO POZO is a 22 year old male known to my practice who presented to the ED with complaints including nausea, bilious vomiting and upper abdominal pain that started couple of hours prior to his arrival. Patient denied consumption of any unusual food or drink. He described abdominal pain as cramping and preceding his vomiting. He denied similar episode in the past. He described associated lower back pain that he related to his sickle cell SS disease. He denied any significant difficulty with breathing, no hematuria but urine have been dark color. He denied any significant fever or chills. His initial ED evaluation was remarkable for tachycardia, witnessed bilious vomiting, acute pain, abnormal urinalysis suggestive of UTI and associated leukocytosis. He was subsequently advised admission for further evaluation and management. 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 Past Medical History Cardiac Medical History: Reports: None Pulmonary Medical History: Reports: Asthma, Pneumonia Neurological Medical History: Reports: None Endocrine Medical History: Reports: None Renal/ Medical History: Reports: None Malignancy Medical History: Reports: Other - SS DISEASE Psychiatric Medical History: Denies: Depression Hematology: Reports: Anemia, Sickle Cell Disease, Bleeding Tendencies Past Surgical History Past Surgical History: Reports: Cholecystectomy, Orthopedic Surgery - Fluid drained from right foot, Vascular Surgery - Port placement Social History Lives with: Family Smoking Status: Never Smoker Frequency of Alcohol Use: None Hx Recreational Drug Use: No Drugs: None Hx Prescription Drug Abuse: No - Advance Directive Resuscitation Status: Full Code Family History Family History: Reviewed & Not Pertinent, Arthritis, DM, Hypertension, Other - Sickle cell trait both parents and asthma Parental Family History Reviewed: Yes Children Family History Reviewed: Yes Sibling(s) Family History Reviewed.: Yes Medication/Allergy Home Medications: Ergocalciferol (Vitamin D2) [Vitamin D2] 50,000 unit PO BRICEÑO@1000 08/02/17 Fentanyl [Duragesic 100 Mcg/Hr Transdermal Patch] 1 patch TD Q3D 08/02/17 Folic Acid [Folvite 1 mg Tablet] 1 mg PO DAILY 08/02/17 Hydroxyurea [Hydrea 500 Mg Capsule] 1,000 mg PO SUTUSA@1000 08/02/17 Hydroxyurea [Hydrea 500 Mg Capsule] 1,500 mg PO MOWEFR@1000 08/02/17 Oxycodone HCl [Oxy-Ir 5 mg Tablet] 5 mg PO Q4 08/02/17 Allergies/Adverse Reactions: Coconut * [Coconut] Allergy (Mild, Verified 08/01/17 18:44) transpore tape Allergy (Mild, Uncoded 06/10/17 22:04) Hives Review of Systems Constitutional: ABSENT: chills, fever(s), headache(s), weight gain, weight loss Eyes: ABSENT: visual disturbances Ears: ABSENT: hearing changes Nose, Mouth, and Throat: ABSENT: as per HPI, headache(s), mouth pain, sore throat, vertigo, other Cardiovascular: PRESENT: chest pain Respiratory: PRESENT: as per HPI Gastrointestinal: PRESENT: abdominal pain, nausea, vomiting Genitourinary: ABSENT: dysuria, hematuria Musculoskeletal: PRESENT: back pain Integumentary: ABSENT: rash, wounds Neurological: ABSENT: abnormal gait, abnormal speech, confusion, dizziness, focal weakness, syncope Psychiatric: ABSENT: anxiety, depression, homidical ideation, suicidal ideation Endocrine: ABSENT: cold intolerance, heat intolerance, polydipsia, polyuria Hematologic/Lymphatic: ABSENT: easy bleeding, easy bruising, lymphadenopathy Allergic/Immunologic: ABSENT: seasonal rhinorrhea Physical Exam Vital Signs: Temp Pulse Resp BP Pulse Ox 98.7 F 105 H 8 L 118/75 100 08/01/17 18:51 08/01/17 18:51 08/02/17 07:16 08/02/17 07:16 08/02/17 07:16 General appearance: PRESENT: no acute distress - at the time of my assessment Head exam: PRESENT: atraumatic, normocephalic Eye exam: PRESENT: conjunctiva pink, EOMI, PERRLA. ABSENT: scleral icterus Ear exam: PRESENT: normal external ear exam Mouth exam: PRESENT: moist, tongue midline Neck exam: PRESENT: full ROM. ABSENT: carotid bruit, JVD, lymphadenopathy, thyromegaly Respiratory exam: PRESENT: clear to auscultation ethan Cardiovascular exam: PRESENT: RRR. ABSENT: diastolic murmur, rubs, systolic murmur Pulses: PRESENT: normal dorsalis pedis pul, +2 pedal pulses bilateral Vascular exam: PRESENT: normal capillary refill. ABSENT: pallor GI/Abdominal exam: PRESENT: normal bowel sounds, soft, tenderness - mild, LLQ tenderness to palpation. ABSENT: distended, guarding, mass, organolmegaly, rebound Rectal exam: PRESENT: deferred Extremities exam: ABSENT: joint swelling, pedal edema Musculoskeletal exam: PRESENT: normal inspection Neurological exam: PRESENT: alert, awake, oriented to person, oriented to place , oriented to time, oriented to situation, CN II-XII grossly intact. ABSENT: motor sensory deficit Psychiatric exam: PRESENT: appropriate affect, normal mood. ABSENT: homicidal ideation, suicidal ideation Skin exam: PRESENT: dry, intact, warm. ABSENT: cyanosis, rash Results Laboratory Results: I reviewed his laboratory findings on [facility] and form a significant part of my medical decision making. Impressions: Chest X-Ray 08/01/17 20:00 IMPRESSION: NO ACUTE RADIOGRAPHIC FINDING IN THE CHEST. STABLE MALPOSITION RIGHT-SIDED PORT WHICH SHOULD NOT BE USED UNTIL REPOSITIONED. Abdomen/Pelvis CT 08/01/17 21:21 IMPRESSION: No acute findings. Chronic lung disease. auto splenectomy. Bone changes of sickle cell disease. Assessment & Plan - Diagnosis (1) UTI (urinary tract infection) Qualifiers: Urinary tract infection type: acute cystitis Hematuria presence: without hematuria Qualified Code(s): N30.00 - Acute cystitis without hematuria Is this a current diagnosis for this admission?: Yes Plan: See admitting physician orders. 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 (3) Asthma Qualifiers: Asthma severity: mild Asthma complication type: uncomplicated Is this a current diagnosis for this admission?: Yes Plan: See admitting physician orders. - Time Time Spent: 50 to 70 Minutes Medications reviewed and adjusted accordingly: Yes Anticipated discharge: Home Within: Other - Inpatient Certification Based on my medical assessment, after consideration of the patient's comorbidities, presenting symptoms, or acuity I expect that the services needed warrant INPATIENT care.: Yes I certify that my determination is in accordance with my understanding of Medicare's requirements for reasonable and necessary INPATIENT services [42 CFR 412.3e].: Yes Medical Necessity: Need Close Monitoring Due to Risk of Patient Decompensation, Need For IV Fluids, Need For Continuous Telemetry Monitoring, Need for IV Antibiotics, Risk of Complication if Not Cared For in Hospital Post Hospital Care: D/C Compliance Review Officer Documentation - Plan Summary Plan Summary: See admitting physician orders.
[2017-08-02] MEDS ORDERED: CEFTRIAXONE 1 GM/D5W RTU 1 GM/50 ML RTUPB IV ONE (16:00)
[2017-08-02] MEDS ORDERED: CEFTRIAXONE 1 GM/D5W RTU 1 GM/50 ML RTUPB IV SCH (22:00)
[2017-08-03] MEDS: NORMAL SALINE 1000 ML 1,000 ML IV PRN ×2 (00:50→20:54)
[2017-08-03] MEDS: ONDANSETRON HCL INJ/PF 4 MG/2 ML SDV IV PRN ×5 (03:04→23:01)
[2017-08-03] MEDS: HYDROMORPHONE HCL INJ/PF 2 MG/ML AMPULE IV PRN ×6 (03:04→23:01)
[2017-08-03] MEDS: LANSOPRAZOLE 30 MG TAB.RAP.DR PO SCH (05:29)
[2017-08-03 06:28] LABS: HEMATOCRIT 26.7 % (37.9-51.0); HEMOGLOBIN 9.1 g/dL (13.5-17.0); HGB HCT DIFFERENCE 0.6; MEAN CORPUSCULAR HEMOGLOBIN 34.8 pg (27.0-33.4); MEAN CORPUSCULAR VOLUME 102 fl (80-97); RED BLOOD COUNT 2.61 10^6/uL (4.35-5.55); RED CELL DISTRIBUTION WIDTH 26.1 % (11.5-14.0); WHITE BLOOD COUNT 7.9 10^3/uL (4.0-10.5)
[2017-08-03 06:51] LABS: ALANINE AMINOTRANSFERASE 26 U/L (21-72); ALKALINE PHOSPHATASE 103 U/L (38-126); ANION GAP 10 (5-19); ASPARTATE AMINO TRANSFERASE 68 U/L (17-59); BILIRUBIN,DIRECT 0.8 mg/dL (0.0-0.4); BILIRUBIN,TOTAL 2.3 mg/dL (0.2-1.3); BLOOD UREA NITROGEN 7 mg/dL (7-20); CARBON DIOXIDE 30 mmol/L (22-30); CHLORIDE 104 mmol/L (98-107); CREATININE RESULT 0.63 mg/dL (0.52-1.25); GLUCOSE 85 mg/dL (75-110); POTASSIUM 4.2 mmol/L (3.6-5.0); SODIUM 144.2 mmol/L (137-145); TOTAL PROTEIN 7.3 g/dL (6.3-8.2)
[2017-08-03 07:06] LABS: ABSOLUTE EOSINOPHILS# (MANUAL) 0.1 10^3/uL (0.0-0.6); BASOPHILS % (MANUAL) 0 % (0-2); EOSINOPHILS % (MANUAL) 1 % (0-6); LYMPHOCYTES % (MANUAL) 26 % (13-45); TOTAL CELLS COUNTED 100
[2017-08-03 07:12] LABS: POLYCHROMASIA 1+
[2017-08-03 07:14] LABS: ACANTHOCYTES 1+; ANISOCYTOSIS 3+; OVALOCYTES 2+; POIKILOCYTOSIS 3+; STOMATOCYTES 1+; TARGET CELLS 1+
[2017-08-03] MEDS: CEFTRIAXONE 1 GM/D5W RTU 1 GM/50 ML RTUPB IV SCH (10:15)
[2017-08-03] MEDS: FOLIC ACID 1 MG TABLET PO SCH (10:15)
[2017-08-03] MEDS: HYDROXYUREA 500 MG CAPSULE PO SCH (10:15)
[2017-08-03] MEDS: ENOXAPARIN SODIUM INJ 40 MG/0.4 ML DISP.SYRIN SUBCUT SCH (10:16)
--- NOTE | 2017-08-03 18:02 | PDOC PROGRESS REPORT ---
Subjective Progress Note for:: 08/03/17 Subjective:: Patient was admitted yesterday because of ,pyelonephritis history of sickle cell disease Reason For Visit: ACUTE PYELONEPHRITIS,SICKLE CELL DISEASE CRISIS Physical Exam Vital Signs: Temp Pulse Resp BP Pulse Ox 98.1 F 83 14 126/75 H 96 08/03/17 15:51 08/03/17 15:51 08/03/17 15:51 08/03/17 15:51 08/03/17 15:51 Intake & Output 08/02/17 08/03/17 08/04/17 06:59 06:59 06:59 Intake Total 2672 1040 Output Total 1575 1200 Balance 1097 -160 Weight 60.7 kg General appearance: PRESENT: no acute distress Head exam: PRESENT: atraumatic, normocephalic Eye exam: PRESENT: conjunctiva pink, EOMI, PERRLA Ear exam: PRESENT: normal external ear exam Mouth exam: PRESENT: moist, tongue midline Neck exam: PRESENT: full ROM Respiratory exam: PRESENT: clear to auscultation ethan Cardiovascular exam: PRESENT: RRR, +S1, +S2 Vascular exam: PRESENT: normal capillary refill GI/Abdominal exam: PRESENT: normal bowel sounds, soft Rectal exam: PRESENT: deferred Neurological exam: PRESENT: alert. ABSENT: motor sensory deficit Psychiatric exam: PRESENT: appropriate affect, normal mood Skin exam: PRESENT: dry, intact, warm. ABSENT: cyanosis, rash Results Laboratory Results: 08/03/17 05:36 08/03/17 05:36 08/03/17 08/03/17 05:36 05:36 WBC 7.9 RBC 2.61 L Hgb 9.1 L Hct 26.7 L MCV 102 H MCH 34.8 H MCHC 34.0 RDW 26.1 H Plt Count 190 Seg Neutrophils % Not Reportable Lymphocytes % Not Reportable Monocytes % Not Reportable Eosinophils % Not Reportable Basophils % Not Reportable Absolute Neutrophils Not Reportable Absolute Lymphocytes Not Reportable Absolute Monocytes Not Reportable Absolute Eosinophils Not Reportable Absolute Basophils Not Reportable Sodium 144.2 Potassium 4.2 Chloride 104 Carbon Dioxide 30 Anion Gap 10 BUN 7 Creatinine 0.63 Est GFR ( Amer) > 60 Est GFR (Non-Af Amer) > 60 Glucose 85 Calcium 9.0 Total Bilirubin 2.3 H AST 68 H ALT 26 Alkaline Phosphatase 103 Total Protein 7.3 Albumin 4.0 Impressions: Chest X-Ray 08/01/17 20:00 IMPRESSION: NO ACUTE RADIOGRAPHIC FINDING IN THE CHEST. STABLE MALPOSITION RIGHT-SIDED PORT WHICH SHOULD NOT BE USED UNTIL REPOSITIONED. Abdomen/Pelvis CT 08/01/17 21:21 IMPRESSION: No acute findings. Chronic lung disease. auto splenectomy. Bone changes of sickle cell disease. Assessment & Plan - Diagnosis (1) Sickle cell anemia Qualifiers: Sickle-cell associated disorders: with unspecified crisis Qualified Code(s) : D57.00 - Hb-SS disease with crisis, unspecified; D57.0 - Hb-SS disease with crisis (3) Bilious vomiting Qualifiers: Nausea presence: with nausea Qualified Code(s): R11.14 - Bilious vomiting - Plan Summary Plan Summary: Continue present treatment with antibiotic and hydration
[2017-08-04] MEDS: ONDANSETRON HCL INJ/PF 4 MG/2 ML SDV IV PRN ×6 (02:58→22:34)
[2017-08-04] MEDS: HYDROMORPHONE HCL INJ/PF 2 MG/ML AMPULE IV PRN ×6 (02:58→22:34)
[2017-08-04] MEDS: LANSOPRAZOLE 30 MG TAB.RAP.DR PO SCH (05:03)
[2017-08-04] MEDS: NORMAL SALINE 1000 ML 1,000 ML IV PRN (06:40)
[2017-08-04] MEDS ORDERED: ERGOCALCIFEROL (VITAMIN D2) 50000 UNIT (1.25 MG) CAPSULE PO SCH (10:00)
[2017-08-04] MEDS: HYDROXYUREA 500 MG CAPSULE PO SCH (10:15)
[2017-08-04] MEDS: FOLIC ACID 1 MG TABLET PO SCH (10:15)
[2017-08-04] MEDS: CEFTRIAXONE 1 GM/D5W RTU 1 GM/50 ML RTUPB IV SCH (10:15)
[2017-08-04] MEDS: ENOXAPARIN SODIUM INJ 40 MG/0.4 ML DISP.SYRIN SUBCUT SCH (10:15)
--- NOTE | 2017-08-04 14:00 | PDOC PROGRESS REPORT ---
Subjective Progress Note for:: 08/04/17 Subjective:: He was seen by the bedside, a complaint of back pain, admitted because of pyelonephritis and sickle cell disease Reason For Visit: ACUTE PYELONEPHRITIS,SICKLE CELL DISEASE CRISIS Physical Exam Vital Signs: Temp Pulse Resp BP Pulse Ox 98.5 F 71 16 124/72 97 08/04/17 11:27 08/04/17 11:27 08/04/17 11:27 08/04/17 11:27 08/04/17 11:27 Intake & Output 08/03/17 08/04/17 08/05/17 06:59 06:59 06:59 Intake Total 2672 4699 Output Total 1575 3435 Balance 1097 1264 Weight 60.7 kg 61.4 kg General appearance: PRESENT: no acute distress Eye exam: ABSENT: scleral icterus Ear exam: PRESENT: normal external ear exam Mouth exam: PRESENT: moist, tongue midline Neck exam: PRESENT: full ROM Respiratory exam: PRESENT: clear to auscultation ethan Cardiovascular exam: PRESENT: RRR, +S1, +S2 Vascular exam: PRESENT: normal capillary refill GI/Abdominal exam: PRESENT: normal bowel sounds, soft Rectal exam: PRESENT: deferred Neurological exam: PRESENT: alert Psychiatric exam: PRESENT: appropriate affect, normal mood Skin exam: PRESENT: dry, intact, warm. ABSENT: cyanosis, rash Results Laboratory Results: 08/03/17 05:36 08/03/17 05:36 Impressions: Chest X-Ray 08/01/17 20:00 IMPRESSION: NO ACUTE RADIOGRAPHIC FINDING IN THE CHEST. STABLE MALPOSITION RIGHT-SIDED PORT WHICH SHOULD NOT BE USED UNTIL REPOSITIONED. Abdomen/Pelvis CT 08/01/17 21:21 IMPRESSION: No acute findings. Chronic lung disease. auto splenectomy. Bone changes of sickle cell disease. Assessment & Plan - Diagnosis (1) Sickle cell anemia Qualifiers: Sickle-cell associated disorders: with unspecified crisis Qualified Code(s) : D57.00 - Hb-SS disease with crisis, unspecified; D57.0 - Hb-SS disease with crisis Is this a current diagnosis for this admission?: Yes (2) Pyelonephritis Is this a current diagnosis for this admission?: Yes (3) Bilious vomiting Qualifiers: Nausea presence: with nausea Qualified Code(s): R11.14 - Bilious vomiting
[2017-08-05] MEDS: ONDANSETRON HCL INJ/PF 4 MG/2 ML SDV IV PRN ×5 (02:44→20:32)
[2017-08-05] MEDS: HYDROMORPHONE HCL INJ/PF 2 MG/ML AMPULE IV PRN ×5 (02:44→20:31)
[2017-08-05] MEDS: NORMAL SALINE 1000 ML 1,000 ML IV PRN ×2 (03:49→15:15)
[2017-08-05] MEDS: LANSOPRAZOLE 30 MG TAB.RAP.DR PO SCH (05:33)
[2017-08-05] MEDS: CEFTRIAXONE 1 GM/D5W RTU 1 GM/50 ML RTUPB IV SCH (10:13)
[2017-08-05] MEDS: FOLIC ACID 1 MG TABLET PO SCH (10:13)
[2017-08-05] MEDS: ENOXAPARIN SODIUM INJ 40 MG/0.4 ML DISP.SYRIN SUBCUT SCH (10:13)
[2017-08-05] MEDS: HYDROXYUREA 500 MG CAPSULE PO SCH (10:14)
--- NOTE | 2017-08-05 18:24 | PDOC PROGRESS REPORT ---
Subjective Progress Note for:: 08/05/17 Subjective:: Patient reported LUQ and epigastric region abdominal pain with eating. There has been nausea but no vomiting. No flank pain. Currently on Prevacid 30 mg po daily fasting. No fever or chills. No difficulty with breathing. No chest pain. Remain on IV Rocephin coverage. Reason For Visit: ACUTE PYELONEPHRITIS,SICKLE CELL DISEASE CRISIS Physical Exam Vital Signs: Temp Pulse Resp BP Pulse Ox 98.5 F 70 18 114/62 99 08/05/17 15:12 08/05/17 15:12 08/05/17 15:12 08/05/17 15:12 08/05/17 15:12 Intake & Output 08/04/17 08/05/17 08/06/17 06:59 06:59 06:59 Intake Total 4699 5332 556 Output Total 3435 3250 Balance 1264 2082 556 Weight 61.4 kg 61.7 kg General appearance: PRESENT: mild distress - related to his SS sickle cell disease process. Requesting for K-PAD Head exam: PRESENT: atraumatic, normocephalic Eye exam: PRESENT: conjunctiva pink, EOMI, PERRLA. ABSENT: scleral icterus Mouth exam: PRESENT: moist Respiratory exam: PRESENT: clear to auscultation ethan Cardiovascular exam: PRESENT: RRR. ABSENT: diastolic murmur, rubs, systolic murmur Vascular exam: PRESENT: normal capillary refill. ABSENT: pallor GI/Abdominal exam: PRESENT: normal bowel sounds, tenderness - LUQ and epigastric region to deep palpation.. ABSENT: guarding, organolmegaly, rebound Extremities exam: ABSENT: pedal edema Musculoskeletal exam: PRESENT: normal inspection Neurological exam: PRESENT: alert, awake, oriented to person, oriented to place , oriented to time, oriented to situation, CN II-XII grossly intact. ABSENT: motor sensory deficit Psychiatric exam: PRESENT: appropriate affect, normal mood. ABSENT: homicidal ideation, suicidal ideation Skin exam: PRESENT: dry, intact, warm. ABSENT: cyanosis, rash Results Laboratory Results: 08/03/17 05:36 08/03/17 05:36 Impressions: Chest X-Ray 08/01/17 20:00 IMPRESSION: NO ACUTE RADIOGRAPHIC FINDING IN THE CHEST. STABLE MALPOSITION RIGHT-SIDED PORT WHICH SHOULD NOT BE USED UNTIL REPOSITIONED. Abdomen/Pelvis CT 08/01/17 21:21 IMPRESSION: No acute findings. Chronic lung disease. auto splenectomy. Bone changes of sickle cell disease. Assessment & Plan - Diagnosis (1) UTI (urinary tract infection) Qualifiers: Urinary tract infection type: acute cystitis Hematuria presence: without hematuria Qualified Code(s): N30.00 - Acute cystitis without hematuria Is this a current diagnosis for this admission?: Yes Plan: Mixed urogenital organism growth 10,000 -20,000 col/ml. Remain on IV Rocephin coverage for total 5 days. Monitor leukocytosis. 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 Is this a current diagnosis for this admission?: Yes (3) Asthma Qualifiers: Asthma severity: mild Asthma complication type: uncomplicated Is this a current diagnosis for this admission?: Yes - Time Time Spent with patient: 25-34 minutes Medications reviewed and adjusted accordingly: Yes Anticipated discharge: Home - Inpatient Certification Based on my medical assessment, after consideration of the patient's comorbidities, presenting symptoms, or acuity I expect that the services needed warrant INPATIENT care.: Yes I certify that my determination is in accordance with my understanding of Medicare's requirements for reasonable and necessary INPATIENT services [42 CFR 412.3e].: Yes Medical Necessity: Need Close Monitoring Due to Risk of Patient Decompensation, Need For IV Fluids, Need For Continuous Telemetry Monitoring, Need for IV Antibiotics, Risk of Complication if Not Cared For in Hospital Post Hospital Care: D/C Digital Controls Technical Officer Documentation - Plan Summary Plan Summary: Maintain on Prevacid therapy. Start on Maalox 30 mL po qid prn for abdominal pain due to probably gastritis. Continue on all other current medication management.
[2017-08-05] MEDS ORDERED: MAG HYDROX/AL HYDROX/SIMETH SUSP 30 ML UDCUP PO ONE (19:00)
[2017-08-05] MEDS: MAG HYDROX/AL HYDROX/SIMETH SUSP 30 ML UDCUP PO SCH (21:26)
[2017-08-06] MEDS: HYDROMORPHONE HCL INJ/PF 2 MG/ML AMPULE IV PRN ×6 (00:49→22:30)
[2017-08-06] MEDS: ONDANSETRON HCL INJ/PF 4 MG/2 ML SDV IV PRN ×6 (00:50→22:30)
[2017-08-06] MEDS: NORMAL SALINE 1000 ML 1,000 ML IV PRN ×3 (01:18→22:36)
[2017-08-06] MEDS: LANSOPRAZOLE 30 MG TAB.RAP.DR PO SCH (05:01)
[2017-08-06 07:05] LABS: HEMATOCRIT 26.3 % (37.9-51.0); HEMOGLOBIN 9.3 g/dL (13.5-17.0); HGB HCT DIFFERENCE 1.6; MEAN CORPUSCULAR HEMOGLOBIN 36.7 pg (27.0-33.4); MEAN CORPUSCULAR HGB CONC 35.4 g/dL (32.0-36.0); MEAN CORPUSCULAR VOLUME 104 fl (80-97); RED BLOOD COUNT 2.54 10^6/uL (4.35-5.55); RED CELL DISTRIBUTION WIDTH 26.5 % (11.5-14.0); WHITE BLOOD COUNT 8.3 10^3/uL (4.0-10.5)
[2017-08-06 07:33] LABS: ALANINE AMINOTRANSFERASE 21 U/L (21-72); ALKALINE PHOSPHATASE 84 U/L (38-126); ANION GAP 11 (5-19); ASPARTATE AMINO TRANSFERASE 48 U/L (17-59); BILIRUBIN,DIRECT 0.8 mg/dL (0.0-0.4); BILIRUBIN,TOTAL 3.2 mg/dL (0.2-1.3); BLOOD UREA NITROGEN 7 mg/dL (7-20); CALCIUM 8.9 mg/dL (8.4-10.2); CARBON DIOXIDE 28 mmol/L (22-30); CHLORIDE 106 mmol/L (98-107); CREATININE RESULT 0.67 mg/dL (0.52-1.25); GLUCOSE 116 mg/dL (75-110); POTASSIUM 4.1 mmol/L (3.6-5.0); SODIUM 145.3 mmol/L (137-145); TOTAL PROTEIN 7.2 g/dL (6.3-8.2)
[2017-08-06 08:13] LABS: ABSOLUTE EOSINOPHILS# (MANUAL) 0.2 10^3/uL (0.0-0.6); BASOPHILS % (MANUAL) 0 % (0-2); EOSINOPHILS % (MANUAL) 2 % (0-6); LYMPHOCYTES % (MANUAL) 34 % (13-45); NUCLEATED RED BLOOD CELLS 6 /100 WBC (0); TOTAL CELLS COUNTED 100
[2017-08-06 08:14] LABS: ANISOCYTOSIS 3+; OVALOCYTES 1+; POIKILOCYTOSIS 3+; POLYCHROMASIA 2+; SCHISTOCYTES 1+
[2017-08-06] MEDS: MAG HYDROX/AL HYDROX/SIMETH SUSP 30 ML UDCUP PO SCH ×4 (08:48→22:30)
[2017-08-06] MEDS: FOLIC ACID 1 MG TABLET PO SCH (09:39)
[2017-08-06] MEDS: HYDROXYUREA 500 MG CAPSULE PO SCH (09:40)
[2017-08-06] MEDS: CEFTRIAXONE 1 GM/D5W RTU 1 GM/50 ML RTUPB IV SCH (09:40)
[2017-08-06] MEDS: ENOXAPARIN SODIUM INJ 40 MG/0.4 ML DISP.SYRIN SUBCUT SCH (09:46)
--- NOTE | 2017-08-06 18:37 | PDOC PROGRESS REPORT ---
Subjective Progress Note for:: 08/06/17 Subjective:: Patient reported persistent epigastric and LUQ pain with eating. There is associated nausea near vomiting. No chest pain or difficulty with breathing. No fever or chills. Remain on IV fluid support and Diluadid for pain management. Reason For Visit: ACUTE PYELONEPHRITIS,SICKLE CELL DISEASE CRISIS Physical Exam Vital Signs: Temp Pulse Resp BP Pulse Ox 98.6 F 85 16 128/66 H 99 08/06/17 16:39 08/06/17 16:39 08/06/17 16:39 08/06/17 16:39 08/06/17 16:39 Intake & Output 08/05/17 08/06/17 08/07/17 06:59 06:59 06:59 Intake Total 5332 4216 960 Output Total 3250 900 Balance 2082 4216 60 Weight 61.7 kg Physical Exam: General appearance: PRESENT: mild distress - related to his SS sickle cell disease process. Head exam: PRESENT: atraumatic, normocephalic Eye exam: PRESENT: conjunctiva pink, EOMI, PERRLA. ABSENT: scleral icterus Mouth exam: PRESENT: moist Respiratory exam: PRESENT: clear to auscultation ethan Cardiovascular exam: PRESENT: RRR. ABSENT: diastolic murmur, rubs, systolic murmur Vascular exam: PRESENT: normal capillary refill. ABSENT: pallor GI/Abdominal exam: PRESENT: normal bowel sounds, tenderness - LUQ and epigastric region to deep palpation. ABSENT: guarding, organomegaly, rebound Extremities exam: ABSENT: pedal edema Musculoskeletal exam: PRESENT: normal inspection Neurological exam: PRESENT: alert, awake, oriented to person, oriented to place , oriented to time, oriented to situation, CN II-XII grossly intact. ABSENT: motor sensory deficit Psychiatric exam: PRESENT: appropriate affect, normal mood. ABSENT: homicidal ideation, suicidal ideation Skin exam: PRESENT: dry, intact, warm. ABSENT: cyanosis, rash Results Laboratory Results: 08/06/17 06:20 08/06/17 06:20 08/06/17 08/06/17 06:20 06:20 WBC 8.3 RBC 2.54 L Hgb 9.3 L Hct 26.3 L MCV 104 H MCH 36.7 H MCHC 35.4 RDW 26.5 H Plt Count 212 Seg Neutrophils % Not Reportable Lymphocytes % Not Reportable Monocytes % Not Reportable Eosinophils % Not Reportable Basophils % Not Reportable Absolute Neutrophils Not Reportable Absolute Lymphocytes Not Reportable Absolute Monocytes Not Reportable Absolute Eosinophils Not Reportable Absolute Basophils Not Reportable Sodium 145.3 H Potassium 4.1 Chloride 106 Carbon Dioxide 28 Anion Gap 11 BUN 7 Creatinine 0.67 Est GFR ( Amer) > 60 Est GFR (Non-Af Amer) > 60 Glucose 116 H Calcium 8.9 Total Bilirubin 3.2 H AST 48 ALT 21 Alkaline Phosphatase 84 Total Protein 7.2 Albumin 4.0 Impressions: Chest X-Ray 08/01/17 20:00 IMPRESSION: NO ACUTE RADIOGRAPHIC FINDING IN THE CHEST. STABLE MALPOSITION RIGHT-SIDED PORT WHICH SHOULD NOT BE USED UNTIL REPOSITIONED. Abdomen/Pelvis CT 08/01/17 21:21 IMPRESSION: No acute findings. Chronic lung disease. auto splenectomy. Bone changes of sickle cell disease. Assessment & Plan - Diagnosis (1) UTI (urinary tract infection) Qualifiers: Urinary tract infection type: acute cystitis Hematuria presence: without hematuria Qualified Code(s): N30.00 - Acute cystitis without hematuria Is this a current diagnosis for this admission?: Yes Plan: Continue IV Rocephin coverage. 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 I will start on Pepcid 20 mg po qhs and maintain on Prevacid 30 mg po qam fasting. Encouraged use of Maalox for gastritis pain management with meal. - Time Time Spent with patient: 25-34 minutes Medications reviewed and adjusted accordingly: Yes Anticipated discharge: Home Within: Other - Inpatient Certification Based on my medical assessment, after consideration of the patient's comorbidities, presenting symptoms, or acuity I expect that the services needed warrant INPATIENT care.: Yes I certify that my determination is in accordance with my understanding of Medicare's requirements for reasonable and necessary INPATIENT services [42 CFR 412.3e].: Yes Medical Necessity: Need Close Monitoring Due to Risk of Patient Decompensation, Need For IV Fluids, Need For Continuous Telemetry Monitoring, Need for Pain Control, Need for IV Antibiotics Post Hospital Care: D/C Game Moderator 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
[2017-08-07] MEDS: HYDROMORPHONE HCL INJ/PF 2 MG/ML AMPULE IV PRN ×6 (02:23→22:49)
[2017-08-07] MEDS: ONDANSETRON HCL INJ/PF 4 MG/2 ML SDV IV PRN ×6 (02:23→22:49)
[2017-08-07] MEDS: LANSOPRAZOLE 30 MG TAB.RAP.DR PO SCH (06:00)
[2017-08-07] MEDS: MAG HYDROX/AL HYDROX/SIMETH SUSP 30 ML UDCUP PO SCH ×4 (08:46→22:49)
[2017-08-07] MEDS: NORMAL SALINE 1000 ML 1,000 ML IV PRN ×2 (08:48→20:05)
[2017-08-07] MEDS: FOLIC ACID 1 MG TABLET PO SCH (10:42)
[2017-08-07] MEDS: ENOXAPARIN SODIUM INJ 40 MG/0.4 ML DISP.SYRIN SUBCUT SCH (10:42)
[2017-08-07] MEDS: CEFTRIAXONE 1 GM/D5W RTU 1 GM/50 ML RTUPB IV SCH (10:42)
[2017-08-07] MEDS: HYDROXYUREA 500 MG CAPSULE PO SCH (10:48)
--- NOTE | 2017-08-07 17:30 | PDOC PROGRESS REPORT ---
Subjective Progress Note for:: 08/07/17 Subjective:: Patient reported some improvement in his abdominal pain. No nausea or vomiting. No chest pain or difficulty with breathing. No fever or chills. No flank pain. Remain on IV Rocephin coverage. Reason For Visit: ACUTE PYELONEPHRITIS,SICKLE CELL DISEASE CRISIS Physical Exam Vital Signs: Temp Pulse Resp BP Pulse Ox 98.5 F 85 17 132/71 H 95 08/07/17 10:57 08/07/17 14:00 08/07/17 10:57 08/07/17 10:57 08/07/17 10:57 Intake & Output 08/06/17 08/07/17 08/08/17 06:59 06:59 06:59 Intake Total 4216 6860 Output Total 1775 Balance 4216 5039 Weight 62.3 kg Physical Exam: General appearance: PRESENT: mild distress - related to his SS sickle cell disease process. Head exam: PRESENT: atraumatic, normocephalic Eye exam: PRESENT: conjunctiva pink, EOMI, PERRLA. ABSENT: scleral icterus Mouth exam: PRESENT: moist Respiratory exam: PRESENT: clear to auscultation ethan Cardiovascular exam: PRESENT: RRR. ABSENT: diastolic murmur, rubs, systolic murmur Vascular exam: PRESENT: normal capillary refill. ABSENT: pallor GI/Abdominal exam: PRESENT: normal bowel sounds, tenderness - minimal LUQ and epigastric region to deep palpation. ABSENT: guarding, organomegaly, rebound Extremities exam: ABSENT: pedal edema Musculoskeletal exam: PRESENT: normal inspection Neurological exam: PRESENT: alert, awake, oriented to person, oriented to place , oriented to time, oriented to situation, CN II-XII grossly intact. ABSENT: motor sensory deficit Psychiatric exam: PRESENT: appropriate affect, normal mood. ABSENT: homicidal ideation, suicidal ideation Skin exam: PRESENT: dry, intact, warm. ABSENT: cyanosis, rash Results Laboratory Results: 08/06/17 06:20 08/06/17 06:20 Impressions: Chest X-Ray 08/01/17 20:00 IMPRESSION: NO ACUTE RADIOGRAPHIC FINDING IN THE CHEST. STABLE MALPOSITION RIGHT-SIDED PORT WHICH SHOULD NOT BE USED UNTIL REPOSITIONED. Abdomen/Pelvis CT 08/01/17 21:21 IMPRESSION: No acute findings. Chronic lung disease. auto splenectomy. Bone changes of sickle cell disease. 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 Is this a current diagnosis for this admission?: Yes (3) Asthma Qualifiers: Asthma severity: mild Asthma complication type: uncomplicated Is this a current diagnosis for this admission?: Yes (4) Gastric stress ulcer Is this a current diagnosis for this admission?: Yes - Time Time Spent with patient: 25-34 minutes Medications reviewed and adjusted accordingly: Yes Anticipated discharge: Home Within: Other - Inpatient Certification Based on my medical assessment, after consideration of the patient's comorbidities, presenting symptoms, or acuity I expect that the services needed warrant INPATIENT care.: Yes I certify that my determination is in accordance with my understanding of Medicare's requirements for reasonable and necessary INPATIENT services [42 CFR 412.3e].: Yes Medical Necessity: Need Close Monitoring Due to Risk of Patient Decompensation, Need For IV Fluids, Need For Continuous Telemetry Monitoring, Need for IV Antibiotics, Risk of Complication if Not Cared For in Hospital Post Hospital Care: D/C Customer Account Administrator Documentation - Plan Summary Plan Summary: Continue IV Rocephin coverage. Maintain on IV fluid support. Continue all other current medication management. I did discussed possible discharge home with patient.
[2017-08-08] MEDS: ONDANSETRON HCL INJ/PF 4 MG/2 ML SDV IV PRN ×2 (03:04→07:41)
[2017-08-08] MEDS: HYDROMORPHONE HCL INJ/PF 2 MG/ML AMPULE IV PRN ×2 (03:04→07:41)
[2017-08-08] MEDS: LANSOPRAZOLE 30 MG TAB.RAP.DR PO SCH (05:11)
[2017-08-08] MEDS: NORMAL SALINE 1000 ML 1,000 ML IV PRN (06:48)
--- NOTE | 2017-08-08 08:23 | PDOC DISCHARGE SUMMARY ---
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 Is this a current diagnosis for this admission?: Yes (3) Asthma Is this a current diagnosis for this admission?: Yes (4) Gastric stress ulcer Is this a current diagnosis for this admission?: Yes - Additional Information Resuscitation Status: Full Code Discharge Diet: Regular Discharge Activity: Activity As Tolerated Home Medications: Ergocalciferol (Vitamin D2) [Vitamin D2] 50,000 unit PO BRICEÑO@1000 08/02/17 Fentanyl [Duragesic 100 Mcg/Hr Transdermal Patch] 1 patch TD Q3D 08/02/17 Folic Acid [Folvite 1 mg Tablet] 1 mg PO DAILY 08/02/17 Hydroxyurea [Hydrea 500 mg Capsule] 1,000 mg PO SUTUSA@1000 08/02/17 Hydroxyurea [Hydrea 500 mg Capsule] 1,500 mg PO MOWEFR@1000 08/02/17 Oxycodone HCl [Oxy-Ir 5 mg Tablet] 5 mg PO Q4 08/02/17 Lansoprazole [Prevacid] 30 mg PO DAILY #30 capsule. 08/08/17 History of Present Illness History of Present Illness: MARINO POZO is a 22 year old male known to my practice who presented to the ED with complaints including nausea, bilious vomiting and upper abdominal pain that started couple of hours prior to his arrival. Patient denied consumption of any unusual food or drink. He described abdominal pain as cramping and preceding his vomiting. He denied similar episode in the past. He described associated lower back pain that he related to his sickle cell SS disease. He denied any significant difficulty with breathing, no hematuria but urine have been dark color. He denied any significant fever or chills. His initial ED evaluation was remarkable for tachycardia, witnessed bilious vomiting, acute pain, abnormal urinalysis suggestive of UTI and associated leukocytosis. He was subsequently advised admission for further evaluation and management. His morbidities include SS hemoglobin sickle cell disease with recurrent acute pain and hemolytic crises and Asthma. Hospital Course Hospital Course: Patient was treated with IV Rocephin coverage. His urine culture grew mixed urogenital karmen 10,000-20,000 col./mL. His presenting symptoms did resolved. Stay was further complicated with development of abdominal pain related to probable stress gastric ulcer. This improved with Prevacid usage and additional Pepcid and prn administration of Maalox. He will be discharged home on Prevacid for total 8 weeks therapy. He will follow up in the office as instructed upon discharge. Physical Exam Vital Signs: Temp Pulse Resp BP Pulse Ox 99.0 F 77 16 122/74 95 08/08/17 00:17 08/08/17 07:00 08/08/17 00:17 08/08/17 00:17 08/08/17 00:17 Intake & Output 08/07/17 08/08/17 08/09/17 06:59 06:59 06:59 Intake Total 6860 5253 Output Total 1775 2725 Balance 5085 2528 Weight 62.3 kg 63.1 kg Physical Exam: General appearance: PRESENT: No acute distress. Head exam: PRESENT: atraumatic, normocephalic Eye exam: PRESENT: conjunctiva pink, EOMI, PERRLA. ABSENT: scleral icterus Mouth exam: PRESENT: moist Respiratory exam: PRESENT: clear to auscultation ethan Cardiovascular exam: PRESENT: RRR. ABSENT: diastolic murmur, rubs, systolic murmur Vascular exam: PRESENT: normal capillary refill. ABSENT: pallor GI/Abdominal exam: PRESENT: normal bowel sounds ABSENT: guarding, organomegaly, rebound Extremities exam: ABSENT: pedal edema Musculoskeletal exam: PRESENT: normal inspection Neurological exam: PRESENT: alert, awake, oriented to person, oriented to place , oriented to time, oriented to situation, CN II-XII grossly intact. ABSENT: motor sensory deficit Psychiatric exam: PRESENT: appropriate affect, normal mood. ABSENT: homicidal ideation, suicidal ideation Skin exam: PRESENT: dry, intact, warm. ABSENT: cyanosis, rash Results Laboratory Results: 08/06/17 06:20 08/06/17 06:20 Impressions: Chest X-Ray 08/01/17 20:00 IMPRESSION: NO ACUTE RADIOGRAPHIC FINDING IN THE CHEST. STABLE MALPOSITION RIGHT-SIDED PORT WHICH SHOULD NOT BE USED UNTIL REPOSITIONED. Abdomen/Pelvis CT 08/01/17 21:21 IMPRESSION: No acute findings. Chronic lung disease. auto splenectomy. Bone changes of sickle cell disease. Qualifiers PATEINT BEING DISCHARGED WITH ANY OF THE FOLLOWING DIAGNOSIS?: No Plan Discharge Plan: Discharge home today. Follow up in the office as instructed upon discharge.
[2017-08-08 08:48] VITALS: BP 132/70
== END 2017-08-08 09:15 | disposition home or self-care (01) | DRG 689 ==
LOC: ER 18:42 → EH 23:42 → OBSVTOIN 08-02 08:37 → 5 08-02 14:10
PROVIDERS: ADMIT Internal Medicine Geriatric Medicine; ATTEND Internal Medicine Geriatric Medicine
DX: N30.00 Acute cystitis without hematuria (principal); D57.00 Hb-SS disease with crisis, unspecified; K25.9 Gastric ulcer, unspecified as acute or chronic, without hemorrhage or perforation; J45.909 Unspecified asthma, uncomplicated; R11.14 Bilious vomiting; E86.0 Dehydration; Z79.891 Long term (current) use of opiate analgesic; Z79.899 Other long term (current) drug therapy; Z90.49 Acquired absence of other specified parts of digestive tract
CPT/HCPCS: 36415; 36591; 71010; 74176; 80053; 80307; 81001; 82962; 83690; 85025; 85045; 87086; 96361; 96365; 96372; 96375; 96376; 99291; J0696; J1170; J1200; J1650; J2405; J3490; J7030

== ENCOUNTER 2017-08-17 20:56 | Emergency (ER) | payer MEDICAID ==
[2017-08-17] MEDS ORDERED: NORMAL SALINE 1000 ML 1,000 ML IV ONE (22:12)
[2017-08-17] MEDS ORDERED: NORMAL SALINE 1000 ML 1,000 ML IV PRN (22:12)
--- NOTE | 2017-08-17 22:21 | ER Document Report ---
ED General Pain - General Chief Complaint: Sickle Cell Crisis Stated Complaint: CHEST PAIN Time Seen by Provider: 08/17/17 22:08 Notes: 22 years old male with a chronic history of sickle cell disease multiple visits to the ED presents today Complaining pain over the left leg and left arm. No fever chills or other constitutional symptoms. TRAVEL OUTSIDE OF THE [place] IN LAST 30 DAYS: No - Related Data Allergies/Adverse Reactions: Coconut * [Coconut] Allergy (Mild, Verified 08/01/17 18:44) transpore tape Allergy (Mild, Uncoded 06/10/17 22:04) Hives Past Medical History - Social History Smoking Status: Former Smoker Family History: Reviewed & Not Pertinent, Arthritis, DM, Hypertension, Other - Sickle cell trait both parents and asthma Pulmonary Medical History: Reports: Hx Asthma, Hx Pneumonia Renal/ Medical History: Denies: Hx Peritoneal Dialysis Psychiatric Medical History: Denies: Hx Depression Past Surgical History: Reports: Hx Abdominal Surgery - Gallstones removal, Hx Cholecystectomy, Hx Orthopedic Surgery - Fluid drained from right foot, Hx Vascular Surgery - Port placement - Immunizations Immunizations up to date: Yes Hx Diphtheria, Pertussis, Tetanus Vaccination: Yes Hx Pneumococcal Vaccination: 01/15/13 Review of Systems - Review of Systems Notes: REVIEW OF SYSTEMS: CONSTITUTIONAL : Denies fever, chills, or sweats. Denies recent illness. EENT: Denies eye, ear, throat, or mouth pain or symptoms. Denies nasal or sinus congestion or discharge. Denies throat, tongue, or mouth swelling or difficulty swallowing. CARDIOVASCULAR: Denies chest pain. Denies palpitations or racing or irregular heart beat. Denies ankle edema. RESPIRATORY: Denies cough, cold, or chest congestion. Denies shortness of breath, difficulty breathing, or wheezing. GASTROINTESTINAL: Denies abdominal pain or distention. Denies nausea, vomiting , or diarrhea. Denies blood in vomitus, stools, or per rectum. Denies black, tarry stools. Denies constipation. GENITOURINARY: Denies difficulty urinating, painful urination, burning, frequency, blood in urine, or discharge. MUSCULOSKELETAL: Denies back or neck pain or stiffness. Denies joint pain or swelling. SKIN: Denies rash, lesions or sores. HEMATOLOGIC : Denies easy bruising or bleeding. LYMPHATIC: Denies swollen, enlarged glands. NEUROLOGICAL: Denies confusion or altered mental status. Denies passing out or loss of consciousness. Denies dizziness or lightheadedness. Denies headache. Denies weakness or paralysis or loss of use of either side. Denies problems with gait or speech. Denies sensory loss, numbness, or tingling. Denies seizures. PSYCHIATRIC: Denies anxiety or stress. Denies depression, suicidal ideation, or homicidal ideation. ALL OTHER SYSTEMS REVIEWED AND NEGATIVE. Dictation was performed using [employer] voice recognition software PHYSICAL EXAMINATION: GENERAL: Well-appearing, well-nourished and in no acute distress. HEAD: Atraumatic, normocephalic. EYES: Pupils equal round and reactive to light, extraocular movements intact, sclera icteric, conjunctiva are normal. ENT: Nares patent, oropharynx clear without exudates. Moist mucous membranes. NECK: Normal range of motion, supple without lymphadenopathy LUNGS: Breath sounds clear to auscultation bilaterally and equal. No wheezes rales or rhonchi. HEART: Regular rate and rhythm without murmurs ABDOMEN: Soft, nontender, nondistended abdomen. No guarding, no rebound. No masses appreciated. Musculoskeletal: Normal range of motion, no pitting or edema. No cyanosis. NEUROLOGICAL: Cranial nerves grossly intact. Normal speech, normal gait. Normal sensory, motor exams PSYCH: Normal mood, normal affect. SKIN: Warm, Dry, normal turgor, no rashes or lesions noted. Physical Exam - Vital signs Vitals: Temp Pulse Resp BP Pulse Ox 99.1 F 117 H 22 H 134/80 H 91 L 08/17/17 21:19 08/17/17 21:19 08/17/17 21:19 08/17/17 21:19 08/17/17 21:19 Course - Re-evaluation Re-evalutation: 08/18/17 00:56 Given IV fluid and morphine - Vital Signs Vital signs: Temp Pulse Resp BP Pulse Ox 99.1 F 110 H 14 134/78 H 93 08/17/17 21:19 08/18/17 00:41 08/18/17 00:41 08/18/17 00:41 08/18/17 00:41 - Laboratory Result Diagrams: 08/17/17 22:35 08/17/17 22:35 Laboratory results interpreted by me: 08/17/17 08/17/17 22:35 22:35 RBC 2.20 L Hgb 8.0 L Hct 23.0 L MCV 105 H MCH 36.4 H RDW 30.0 H Retic Count (auto) 22.98 H Absolute Retic 0.505 H Total Bilirubin 3.7 H Direct Bilirubin 0.8 H AST 94 H Discharge - Discharge Clinical Impression: Sickle cell disease Condition: Fair Disposition: HOME, SELF-CARE Instructions: Sickle Cell Crisis ([facility])
[2017-08-17 23:00] LABS: MEAN CORPUSCULAR HEMOGLOBIN 36.4 pg (27.0-33.4); MEAN CORPUSCULAR HGB CONC 34.8 g/dL (32.0-36.0); MEAN CORPUSCULAR VOLUME 105 fl (80-97); WHITE BLOOD COUNT 8.7 10^3/uL (4.0-10.5)
--- NOTE | 2017-08-17 23:01 | EKG REPORT ---
SEVERITY:- BORDERLINE ECG - SINUS TACHYCARDIA BORDERLINE T ABNORMALITIES, INFERIOR LEADS : Confirmed by: Xenia Delgado 17-Aug-2017 23:00:42
[2017-08-17 23:03] LABS: ALANINE AMINOTRANSFERASE 29 U/L (21-72); ALBUMIN 4.5 g/dL (3.5-5.0); ALKALINE PHOSPHATASE 125 U/L (38-126); ANION GAP 10 (5-19); ASPARTATE AMINO TRANSFERASE 94 U/L (17-59); BILIRUBIN,DIRECT 0.8 mg/dL (0.0-0.4); BILIRUBIN,TOTAL 3.7 mg/dL (0.2-1.3); BLOOD UREA NITROGEN 12 mg/dL (7-20); CALCIUM 9.1 mg/dL (8.4-10.2); CARBON DIOXIDE 29 mmol/L (22-30); CHLORIDE 104 mmol/L (98-107); CREATININE RESULT 0.76 mg/dL (0.52-1.25); GLUCOSE 94 mg/dL (75-110); POTASSIUM 4.7 mmol/L (3.6-5.0); SODIUM 142.5 mmol/L (137-145); TOTAL PROTEIN 8.2 g/dL (6.3-8.2)
[2017-08-17 23:32] LABS: BASOPHILS % (MANUAL) 0 % (0-2); EOSINOPHILS % (MANUAL) 0 % (0-6); LYMPHOCYTES % (MANUAL) 35 % (13-45); TOTAL CELLS COUNTED 100
[2017-08-17 23:40] LABS: ACANTHOCYTES 1+; ANISOCYTOSIS 4+; POIKILOCYTOSIS 4+; POLYCHROMASIA 1+; TOXIC VACUOLATION PRESENT
[2017-08-17 23:41] LABS: OVALOCYTES 2+; SCHISTOCYTES SLIGHT; STOMATOCYTES 1+; TARGET CELLS 2+
[2017-08-17 23:42] LABS: HOWELL-JOLLY BODIES PRESENT
[2017-08-17 23:47] LABS: NUCLEATED RED BLOOD CELLS 159 /100 WBC (0)
[2017-08-18 00:06] LABS: STAIN REACTIVITY CHECK ACCEPTABLE
[2017-08-18] MEDS ORDERED: DIPHENHYDRAMINE HCL 50 MG/ML VIAL IV ONE (00:09)
[2017-08-18] MEDS ORDERED: ONDANSETRON HCL INJ/PF 4 MG/2 ML SDV IV ONE (00:09)
[2017-08-18] MEDS ORDERED: MORPHINE SULFATE 10 MG/ML INJ IV ONE (00:09)
[2017-08-18 00:42] VITALS: BP 134/78
== END 2017-08-18 01:30 | disposition home or self-care (01) ==
LOC: ER 20:56
DX: D57.1 Sickle-cell disease without crisis (principal); M79.605 Pain in left leg; M79.602 Pain in left arm; J45.909 Unspecified asthma, uncomplicated; Z91.018 Allergy to other foods; Z88.8 Allergy status to other drugs, medicaments and biological substances; Z87.891 Personal history of nicotine dependence
CPT/HCPCS: 93005; 99284; 96361; 96374; 96375; 36415; 85025; 85045; 80053; 93010; J1200; J2270; J2405; J7030

== ENCOUNTER 2017-08-18 20:53 | Inpatient (IN) | payer MEDICAID ==
[2017-08-18] MEDS ORDERED: NORMAL SALINE 1000 ML 1,000 ML IV PRN (21:16)
[2017-08-18] MEDS ORDERED: NORMAL SALINE 1000 ML 1,000 ML IV ONE (21:16)
[2017-08-18] MEDS ORDERED: MORPHINE SULFATE 10 MG/ML INJ IV ONE (21:20)
[2017-08-18] MEDS ORDERED: ONDANSETRON HCL INJ/PF 4 MG/2 ML SDV IV ONE (21:20)
--- NOTE | 2017-08-18 21:28 | ER Document Report ---
ED General Pain - General Chief Complaint: Sickle Cell Crisis Stated Complaint: CHEST PAIN; FEVER Time Seen by Provider: 08/18/17 21:15 Notes: 22 years old male with history of sickle cell disease was seen by me yesterday, today returned with fever chills increase pain over the right side of the chest. Denies any coughing. Denies difficulty in breathing. But has been vomiting couple of times. Denies any abdominal pain diarrhea dysuria frequency. Having pain over generally over the joints TRAVEL OUTSIDE OF THE [place] IN LAST 30 DAYS: No - Related Data Allergies/Adverse Reactions: Coconut * [Coconut] Allergy (Mild, Verified 08/18/17 20:56) transpore tape Allergy (Mild, Uncoded 08/18/17 20:56) Hives Past Medical History - Social History Smoking Status: Never Smoker Family History: Reviewed & Not Pertinent, Arthritis, DM, Hypertension, Other - Sickle cell trait both parents and asthma Pulmonary Medical History: Reports: Hx Asthma, Hx Pneumonia Renal/ Medical History: Denies: Hx Peritoneal Dialysis Psychiatric Medical History: Denies: Hx Depression Past Surgical History: Reports: Hx Abdominal Surgery - Gallstones removal, Hx Cholecystectomy, Hx Orthopedic Surgery - Fluid drained from right foot, Hx Vascular Surgery - Port placement - Immunizations Immunizations up to date: Yes Hx Diphtheria, Pertussis, Tetanus Vaccination: Yes Hx Pneumococcal Vaccination: 01/15/13 Review of Systems - Review of Systems Notes: REVIEW OF SYSTEMS: CONSTITUTIONAL : EENT: Denies eye, ear, throat, or mouth pain or symptoms. Denies nasal or sinus congestion or discharge. Denies throat, tongue, or mouth swelling or difficulty swallowing. CARDIOVASCULAR: Denies chest pain. Denies palpitations or racing or irregular heart beat. Denies ankle edema. RESPIRATORY: Denies cough, cold, or chest congestion. Denies shortness of breath, difficulty breathing, or wheezing. GASTROINTESTINAL: Denies abdominal pain or distention. Denies nausea, vomiting , or diarrhea. Denies blood in vomitus, stools, or per rectum. Denies black, tarry stools. Denies constipation. GENITOURINARY: Denies difficulty urinating, painful urination, burning, frequency, blood in urine, or discharge. MUSCULOSKELETAL: Denies back or neck pain or stiffness. Denies joint pain or swelling. SKIN: Denies rash, lesions or sores. HEMATOLOGIC : Denies easy bruising or bleeding. LYMPHATIC: Denies swollen, enlarged glands. NEUROLOGICAL: Denies confusion or altered mental status. Denies passing out or loss of consciousness. Denies dizziness or lightheadedness. Denies headache. Denies weakness or paralysis or loss of use of either side. Denies problems with gait or speech. Denies sensory loss, numbness, or tingling. Denies seizures. PSYCHIATRIC: Denies anxiety or stress. Denies depression, suicidal ideation, or homicidal ideation. ALL OTHER SYSTEMS REVIEWED AND NEGATIVE. Dictation was performed using [employer] recognition software PHYSICAL EXAMINATION: GENERAL: Temperature was 102.7. HEAD: Atraumatic, normocephalic. EYES: Pupils equal round and reactive to light, extraocular movements intact, sclera icteric, conjunctiva are normal. ENT: Nares patent, oropharynx clear without exudates. Moist mucous membranes. NECK: Normal range of motion, supple without lymphadenopathy LUNGS: Breath sounds clear to auscultation bilaterally and equal. Right lower lobe crackles were heard HEART: Regular rate and rhythm without murmurs ABDOMEN: Soft, nontender, nondistended abdomen. No guarding, no rebound. No masses appreciated. Musculoskeletal: Normal range of motion, no pitting or edema. No cyanosis. NEUROLOGICAL: Cranial nerves grossly intact. Normal speech, normal gait. Normal sensory, motor exams PSYCH: Normal mood, normal affect. SKIN: Warm, Dry, normal turgor, no rashes or lesions noted. Physical Exam - Vital signs Vitals: Temp Pulse Resp BP Pulse Ox 103.0 F H 139 H 22 H 137/105 H 90 L 08/18/17 21:00 08/18/17 21:00 08/18/17 21:00 08/18/17 21:00 08/18/17 21:00 Course - Re-evaluation Re-evalutation: 08/19/17 00:42 This case was discussed with Dr. Moore and currently being admitted. - Vital Signs Vital signs: Temp Pulse Resp BP Pulse Ox 102.8 F H 139 H 23 H 137/105 H 95 08/18/17 21:25 08/18/17 21:00 08/19/17 00:00 08/18/17 21:00 08/19/17 00:00 - Laboratory Result Diagrams: 08/18/17 21:46 08/18/17 21:46 Laboratory results interpreted by me: 08/18/17 08/18/17 08/18/17 21:15 21:46 21:46 WBC 11.1 H RBC 1.94 L Hgb 7.2 L Hct 20.1 L MCV 103 H MCH 36.9 H RDW 29.6 H Band Neutrophils % 1 L Retic Count (auto) 19.32 H Absolute Retic 0.375 H Sodium 136.4 L Calcium 8.3 L Total Bilirubin 4.3 H Direct Bilirubin 0.8 H AST 77 H Urine Protein 100 H Urine Blood SMALL H Urine Urobilinogen 4.0 H Ur Leukocyte Esterase SMALL H - EKG Interpretation by Me Rate: Tachycardia - Sinus tach at the rate of 134 bpm normal axis no acute ST elevation ST depression and T-wave inversion. Diagnosis sinus tachycardia Discharge - Discharge Clinical Impression: Sickle cell crisis acute chest syndrome Pneumonia Qualifiers: Pneumonia type: due to unspecified organism Laterality: right Lung location: lower lobe of lung Qualified Code(s): J18.1 - Lobar pneumonia, unspecified organism Fever Qualifiers: Fever type: due to other condition Qualified Code(s): R50.81 - Fever presenting with conditions classified elsewhere Condition: Fair Disposition: ADMITTED INPATIENT Admitting Provider: Moore Unit Admitted: Telemetry
[2017-08-18 21:40] LABS: AMORPHOUS SEDIMENT,URINE TRACE /HPF; APPEARANCE,URINE SLIGHTLY-CLOUDY; BILIRUBIN,URINE NEGATIVE (NEGATIVE); GLUCOSE, URINE NEGATIVE (NEGATIVE); KETONES,URINE NEGATIVE (NEGATIVE); LEUKOCYTE ESTERASE,URINE SMALL (NEGATIVE); NITRITE,URINE NEGATIVE (NEGATIVE); PROTEIN,URINE 100 mg/dL (NEGATIVE); URINE SPECIFIC GRAVITY 1.013
[2017-08-18] MEDS ORDERED: DIPHENHYDRAMINE HCL 50 MG/ML VIAL IV ONE (22:04)
[2017-08-18] MEDS ORDERED: IBUPROFEN 800 MG TABLET PO ONE (22:04)
[2017-08-18 22:12] LABS: HEMATOCRIT 20.1 % (37.9-51.0); HGB HCT DIFFERENCE 1.5; MEAN CORPUSCULAR HEMOGLOBIN 36.9 pg (27.0-33.4); MEAN CORPUSCULAR HGB CONC 35.7 g/dL (32.0-36.0); MEAN CORPUSCULAR VOLUME 103 fl (80-97); RED BLOOD COUNT 1.94 10^6/uL (4.35-5.55); RED CELL DISTRIBUTION WIDTH 29.6 % (11.5-14.0); WHITE BLOOD COUNT 11.1 10^3/uL (4.0-10.5)
[2017-08-18 22:19] LABS: ALANINE AMINOTRANSFERASE 33 U/L (21-72); ALBUMIN 4.2 g/dL (3.5-5.0); ALKALINE PHOSPHATASE 102 U/L (38-126); ANION GAP 11 (5-19); ASPARTATE AMINO TRANSFERASE 77 U/L (17-59); BILIRUBIN,DIRECT 0.8 mg/dL (0.0-0.4); BILIRUBIN,TOTAL 4.3 mg/dL (0.2-1.3); BLOOD UREA NITROGEN 10 mg/dL (7-20); CALCIUM 8.3 mg/dL (8.4-10.2); CARBON DIOXIDE 25 mmol/L (22-30); CHLORIDE 100 mmol/L (98-107); CREATININE RESULT 1.15 mg/dL (0.52-1.25); GLUCOSE 104 mg/dL (75-110); POTASSIUM 3.9 mmol/L (3.6-5.0); SODIUM 136.4 mmol/L (137-145); TOTAL PROTEIN 7.7 g/dL (6.3-8.2)
[2017-08-18 22:20] LABS: HEMOGLOBIN 7.2 g/dL (13.5-17.0)
--- NOTE | 2017-08-18 22:31 | RADIOLOGY REPORT (SQ) ---
EXAM DESCRIPTION: CHEST PA/LAT COMPLETED DATE/TIME: 08/18/2017 10:14 pm REASON FOR STUDY: Chest pain COMPARISON: 06/11/2017 NUMBER OF VIEWS: Two view. TECHNIQUE: Frontal and lateral radiographic views of the chest acquired. LIMITATIONS: None. FINDINGS: LUNGS AND PLEURA: Peribronchial cuffing, increased interstitial changes and small patchy a irspace opacities are present in the lung bases. No pleural effusion, or pneumothorax. MEDIASTINUM AND HILAR STRUCTURES: Stable. HEART AND VASCULAR STRUCTURES: Stable. BONES: No acute findings. HARDWARE: Right-sided central venous catheter tip remains projecting over the right internal jugular vein. OTHER: No other significant finding. IMPRESSION: Peribronchial cuffing, increased interstitial changes and small patchy airspace opacitie s are present in the lung bases. Right-sided central venous catheter tip remains projecting over the right internal jugular vein. TECHNICAL DOCUMENTATION: JOB ID: [id number] [place]-72 2010 [employer]- All Rights Reserved
--- NOTE | 2017-08-18 22:49 | EKG REPORT ---
SEVERITY:- OTHERWISE NORMAL ECG - SINUS TACHYCARDIA MINIMAL ST DEPRESSION, ANTEROLATERAL LEADS : Confirmed by: Xenia Delgado 18-Aug-2017 22:48:18
[2017-08-18 23:18] LABS: BAND NEUTROPHILS % (MANUAL) 1 % (3-5); BASOPHILS % (MANUAL) 0 % (0-2); EOSINOPHILS % (MANUAL) 0 % (0-6); LYMPHOCYTES % (MANUAL) 23 % (13-45); NUCLEATED RED BLOOD CELLS 92 /100 WBC (0); TOTAL CELLS COUNTED 100
[2017-08-18 23:20] LABS: ANISOCYTOSIS 4+; POLYCHROMASIA 2+
[2017-08-18 23:21] LABS: TARGET CELLS 2+
[2017-08-18 23:23] LABS: HOWELL-JOLLY BODIES PRESENT
[2017-08-18 23:24] LABS: SCHISTOCYTES SLIGHT
[2017-08-18 23:25] LABS: STAIN REACTIVITY CHECK ACCEPTABLE
[2017-08-18] MEDS ORDERED: HYDROMORPHONE HCL INJ/PF 2 MG/ML AMPULE IV ONE (23:25)
[2017-08-18 23:26] LABS: STOMATOCYTES 1+
[2017-08-19] MEDS ORDERED: PIPERACILLIN/TAZOBACTAM 3.375 GM VIAL IV ONE (00:27)
[2017-08-19] MEDS ORDERED: GUAIFENESIN SYRP 200 MG/10 ML UDC PO PRN (00:44)
[2017-08-19] MEDS ORDERED: IPRATROPIUM/ALBUTEROL 0.5-2.5 MG/3 ML AMPUL NEB PRN ×2 (00:44→11:30)
[2017-08-19] MEDS: NORMAL SALINE 1000 ML 1,000 ML IV PRN ×3 (01:59→18:25)
[2017-08-19] MEDS: HYDROMORPHONE HCL INJ/PF 2 MG/ML AMPULE IV PRN ×5 (05:24→23:30)
[2017-08-19] MEDS: ONDANSETRON HCL INJ/PF 4 MG/2 ML SDV IV PRN ×2 (08:44→18:22)
[2017-08-19] MEDS: CEFEPIME 2 GM/D5W RTU 2 GM/50 ML RTUPB IV SCH ×2 (09:40→21:06)
[2017-08-19] MEDS: FAMOTIDINE 20 MG TABLET PO SCH ×2 (09:41→21:08)
[2017-08-19] MEDS: GUAIFENESIN 600 MG TABLET.SA PO SCH ×2 (09:41→21:08)
[2017-08-19] MEDS: AZITHROMYCIN 500 MG in DEXTROSE 5%-WATER 250 ML IV SCH (10:35)
[2017-08-19] MEDS ORDERED: IBUPROFEN 800 MG TABLET PO PRN (18:28)
--- NOTE | 2017-08-19 18:28 | PDOC H&P ---
History of Present Illness Admission Date/PCP: 08/19/17 00:49 ANDREW WILLIS MD Patient complains of: Fever, Chills, Right sided chest pain History of Present Illness: MARINO POZO is a 22 year old male known to my practice with history of frequent hospitalization for SS sickle cell disease crises. Patient was evaluated at the ED for worsening pain crisis a day prior to his admission and return on the day of admission with complain of fever, home temperature above 102F, chills, cough with scanty sputum production and right sided chest pain. His evaluation in the ED revealed air space disease process involving both lung bases and peribronchial cuffing. He reported associated nausea and episodes of vomiting. He denied any significant abdominal pain, diarrhea, urinary frequency , flank pain or dysuria. He was advised hospitalization for lobar pneumonia and SS sickle cell disease pain crisis. Morbidities in Asthma and SS hemoglobin Sickle Cell disease. Past Medical History Pulmonary Medical History: Reports: Asthma, Pneumonia Psychiatric Medical History: Denies: Depression Hematology: Reports: Anemia, Sickle Cell Disease, Bleeding Tendencies Past Surgical History Past Surgical History: Reports: Cholecystectomy, Orthopedic Surgery - Fluid drained from right foot, Vascular Surgery - Port placement Social History Smoking Status: Never Smoker Frequency of Alcohol Use: None Hx Recreational Drug Use: No Drugs: None Hx Prescription Drug Abuse: No Family History Family History: Reviewed & Not Pertinent, Arthritis, DM, Hypertension, Other - Sickle cell trait both parents and asthma Parental Family History Reviewed: Yes Children Family History Reviewed: Yes Sibling(s) Family History Reviewed.: Yes Medication/Allergy Home Medications: Fentanyl [Duragesic 100 Mcg/Hr Transdermal Patch] 1 patch TOP Q3D 08/19/17 Folic Acid [Folvite 1 mg Tablet] 1 mg PO DAILY 08/19/17 Hydroxyurea [Hydrea 500 mg Capsule] 1,000 mg PO SUTUTHSA@1000 08/19/17 Hydroxyurea [Hydrea 500 mg Capsule] 1,500 mg PO MOWEFR@1000 08/19/17 Ibuprofen [Motrin 800 mg Tablet] 800 mg PO Q6HP PRN 08/19/17 Oxycodone HCl [Oxy-Ir 5 mg Tablet] 5 mg PO Q4 08/19/17 Allergies/Adverse Reactions: Coconut * [Coconut] Allergy (Mild, Verified 08/18/17 20:56) transpore tape Allergy (Mild, Uncoded 08/18/17 20:56) Hives Review of Systems Constitutional: PRESENT: chills, fever(s) Eyes: ABSENT: visual disturbances Ears: ABSENT: hearing changes Nose, Mouth, and Throat: ABSENT: as per HPI, headache(s), mouth pain, sore throat, vertigo, other Cardiovascular: PRESENT: chest pain - right sided Respiratory: PRESENT: cough - with minimal sputum production, sputum Gastrointestinal: PRESENT: nausea, vomiting Genitourinary: ABSENT: difficulty urinating, dysuria, hematuria, nocturia Musculoskeletal: PRESENT: back pain - and multiple joints related to his SS SCD pain crisis Neurological: ABSENT: abnormal gait, abnormal speech, confusion, dizziness, focal weakness, syncope Psychiatric: ABSENT: anxiety, depression, homidical ideation, suicidal ideation Endocrine: ABSENT: cold intolerance, heat intolerance, polydipsia, polyuria Hematologic/Lymphatic: ABSENT: easy bleeding, easy bruising, lymphadenopathy Allergic/Immunologic: ABSENT: seasonal rhinorrhea Physical Exam Vital Signs: Temp Pulse Resp BP Pulse Ox 99.0 F 100 18 124/75 97 08/19/17 14:55 08/19/17 14:55 08/19/17 14:55 08/19/17 14:55 08/19/17 14:55 Intake & Output 08/18/17 08/19/17 08/20/17 06:59 06:59 06:59 Intake Total 150 709 Output Total 200 1975 Balance -50 -1266 Weight 62.8 kg General appearance: PRESENT: no acute distress Head exam: PRESENT: atraumatic, normocephalic Eye exam: PRESENT: conjunctiva pink, EOMI, PERRLA. ABSENT: scleral icterus Ear exam: PRESENT: normal external ear exam Mouth exam: PRESENT: moist, tongue midline Throat exam: ABSENT: post pharyngeal erythema, tonsillar erythema, tonsillar exudate, tonsillogmegaly, other Neck exam: PRESENT: full ROM. ABSENT: carotid bruit, JVD, lymphadenopathy, thyromegaly Respiratory exam: PRESENT: clear to auscultation ethan Cardiovascular exam: PRESENT: RRR. ABSENT: diastolic murmur, rubs, systolic murmur Pulses: PRESENT: normal dorsalis pedis pul, +2 pedal pulses bilateral Vascular exam: PRESENT: normal capillary refill GI/Abdominal exam: PRESENT: normal bowel sounds, soft. ABSENT: distended, guarding, mass, organolmegaly, rebound, tenderness Rectal exam: PRESENT: deferred Extremities exam: ABSENT: pedal edema Neurological exam: PRESENT: alert, awake, oriented to person, oriented to place , oriented to time, oriented to situation, CN II-XII grossly intact. ABSENT: motor sensory deficit Psychiatric exam: PRESENT: appropriate affect, normal mood. ABSENT: homicidal ideation, suicidal ideation Skin exam: PRESENT: dry, intact, warm. ABSENT: cyanosis, rash Results Impressions: Chest X-Ray 08/18/17 21:16 IMPRESSION: Peribronchial cuffing, increased interstitial changes and small patchy airspace opacities are present in the lung bases. Right-sided central venous catheter tip remains projecting over the right internal jugular vein. Assessment & Plan - Diagnosis (1) Lobar pneumonia, unspecified organism Is this a current diagnosis for this admission?: Yes Plan: See admitting attending orders. 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 (3) Sickle cell disease with crisis Is this a current diagnosis for this admission?: Yes Plan: See admitting attending orders. (4) Asthma Qualifiers: Asthma severity: mild Asthma complication type: uncomplicated Is this a current diagnosis for this admission?: Yes Plan: See admitting attending orders. - Time Time Spent: 50 to 70 Minutes Medications reviewed and adjusted accordingly: Yes Anticipated discharge: Home Within: Other - Inpatient Certification Based on my medical assessment, after consideration of the patient's comorbidities, presenting symptoms, or acuity I expect that the services needed warrant INPATIENT care.: Yes I certify that my determination is in accordance with my understanding of Medicare's requirements for reasonable and necessary INPATIENT services [42 CFR 412.3e].: Yes Medical Necessity: Need Close Monitoring Due to Risk of Patient Decompensation, Need For IV Fluids, Need For Continuous Telemetry Monitoring, Need for Pain Control, Need for IV Antibiotics, Risk of Complication if Not Cared For in Hospital Post Hospital Care: D/[employer] Documentation - Plan Summary Plan Summary: See admitting attending orders.
[2017-08-19] MEDS: FENTANYL 100 MCG/HR PATCH.TD72 TOP SCH (21:07)
[2017-08-20] MEDS: ONDANSETRON HCL INJ/PF 4 MG/2 ML SDV IV PRN ×5 (03:19→21:26)
[2017-08-20] MEDS: HYDROMORPHONE HCL INJ/PF 2 MG/ML AMPULE IV PRN ×5 (03:23→21:26)
[2017-08-20] MEDS: LANSOPRAZOLE 30 MG TAB.RAP.DR PO SCH (05:08)
[2017-08-20 05:54] LABS: HEMATOCRIT 20.5 % (37.9-51.0); HGB HCT DIFFERENCE 1.4; MEAN CORPUSCULAR HEMOGLOBIN 36.9 pg (27.0-33.4); MEAN CORPUSCULAR HGB CONC 35.8 g/dL (32.0-36.0); MEAN CORPUSCULAR VOLUME 103 fl (80-97); RED BLOOD COUNT 1.98 10^6/uL (4.35-5.55); RED CELL DISTRIBUTION WIDTH 27.5 % (11.5-14.0); WHITE BLOOD COUNT 7.2 10^3/uL (4.0-10.5)
[2017-08-20 06:01] LABS: ANION GAP 8 (5-19); BLOOD UREA NITROGEN 5 mg/dL (7-20); CALCIUM 8.4 mg/dL (8.4-10.2); CARBON DIOXIDE 28 mmol/L (22-30); CHLORIDE 106 mmol/L (98-107); CREATININE RESULT 0.64 mg/dL (0.52-1.25); GLUCOSE 105 mg/dL (75-110); POTASSIUM 3.8 mmol/L (3.6-5.0); SODIUM 142.2 mmol/L (137-145)
[2017-08-20 06:20] LABS: HEMOGLOBIN 7.3 g/dL (13.5-17.0)
[2017-08-20 07:16] LABS: ABSOLUTE EOSINOPHILS# (MANUAL) 0.1 10^3/uL (0.0-0.6); BAND NEUTROPHILS % (MANUAL) 1 % (3-5); BASOPHILS % (MANUAL) 0 % (0-2); EOSINOPHILS % (MANUAL) 1 % (0-6); LYMPHOCYTES % (MANUAL) 18 % (13-45); NUCLEATED RED BLOOD CELLS 47 /100 WBC (0); TOTAL CELLS COUNTED 100
[2017-08-20 07:18] LABS: ANISOCYTOSIS 4+; HYPOCHROMASIA 1+; POIKILOCYTOSIS 2+; POLYCHROMASIA 1+; TARGET CELLS 1+
[2017-08-20] MEDS: FAMOTIDINE 20 MG TABLET PO SCH ×2 (09:56→21:21)
[2017-08-20] MEDS: HYDROXYUREA 500 MG CAPSULE PO SCH (09:56)
[2017-08-20] MEDS: GUAIFENESIN 600 MG TABLET.SA PO SCH ×2 (09:57→21:21)
[2017-08-20] MEDS: CEFEPIME 2 GM/D5W RTU 2 GM/50 ML RTUPB IV SCH ×2 (09:57→21:21)
[2017-08-20] MEDS: FOLIC ACID 1 MG TABLET PO SCH (09:57)
[2017-08-20] MEDS: AZITHROMYCIN 500 MG in DEXTROSE 5%-WATER 250 ML IV SCH (10:53)
[2017-08-20] MEDS: NORMAL SALINE 1000 ML 1,000 ML IV PRN (14:10)
--- NOTE | 2017-08-20 19:06 | PDOC PROGRESS REPORT ---
Subjective Progress Note for:: 08/20/17 Subjective:: Patient reported persistent multiple joints aches and pain related to his ongoing SS SCD with pain crisis. No abdominal pain, nausea or vomiting. Tolerating oral feeding. No fever or chills. Reason For Visit: PNEUMONIA Physical Exam Vital Signs: Temp Pulse Resp BP Pulse Ox 97.8 F 92 18 125/79 97 08/20/17 15:00 08/20/17 15:00 08/20/17 15:00 08/20/17 15:00 08/20/17 15:00 Intake & Output 08/19/17 08/20/17 08/21/17 06:59 06:59 06:59 Intake Total 150 3054 2882 Output Total 200 2875 1999 Balance -50 179 882 Weight 62.8 kg 62.8 kg General appearance: PRESENT: mild distress - related to pain crisis Head exam: PRESENT: atraumatic, normocephalic Eye exam: PRESENT: conjunctiva pink, EOMI, PERRLA. ABSENT: scleral icterus Respiratory exam: PRESENT: clear to auscultation ethan Cardiovascular exam: PRESENT: RRR. ABSENT: diastolic murmur, rubs, systolic murmur GI/Abdominal exam: PRESENT: normal bowel sounds, soft. ABSENT: distended, guarding, mass, organolmegaly, rebound, tenderness Extremities exam: ABSENT: pedal edema Musculoskeletal exam: PRESENT: normal inspection Neurological exam: PRESENT: alert, awake, oriented to person, oriented to place , oriented to time, oriented to situation, CN II-XII grossly intact. ABSENT: motor sensory deficit Psychiatric exam: PRESENT: appropriate affect, normal mood. ABSENT: homicidal ideation, suicidal ideation Skin exam: PRESENT: dry, intact, warm. ABSENT: cyanosis, rash Results Laboratory Results: 08/20/17 05:30 08/20/17 05:30 08/20/17 08/20/17 05:30 05:30 WBC 7.2 RBC 1.98 L Hgb 7.3 L Hct 20.5 L MCV 103 H MCH 36.9 H MCHC 35.8 RDW 27.5 H Plt Count 151 Seg Neutrophils % Not Reportable Lymphocytes % Not Reportable Monocytes % Not Reportable Eosinophils % Not Reportable Basophils % Not Reportable Absolute Neutrophils Not Reportable Absolute Lymphocytes Not Reportable Absolute Monocytes Not Reportable Absolute Eosinophils Not Reportable Absolute Basophils Not Reportable Sodium 142.2 Potassium 3.8 Chloride 106 Carbon Dioxide 28 Anion Gap 8 BUN 5 L Creatinine 0.64 Est GFR ( Amer) > 60 Est GFR (Non-Af Amer) > 60 Glucose 105 Calcium 8.4 Impressions: Chest X-Ray 08/18/17 21:16 IMPRESSION: Peribronchial cuffing, increased interstitial changes and small patchy airspace opacities are present in the lung bases. Right-sided central venous catheter tip remains projecting over the right internal jugular vein. Assessment & Plan - Diagnosis (1) Lobar pneumonia, unspecified organism Is this a current diagnosis for this admission?: Yes Plan: See admitting attending orders. Continue IV Zithromax and Cefepime coverage. Follow up on cultured organism identification and sensitivity. 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 Allow use of K-PAD to aide pain management. Continue current medication management. (4) Asthma Qualifiers: Asthma severity: mild Asthma complication type: uncomplicated Is this a current diagnosis for this admission?: Yes (5) Gram positive septicemia Is this a current diagnosis for this admission?: Yes Plan: Continue IV Zithromax and Cefepime coverage. Follow up on cultured organism identification and sensitivity. - Time Time Spent with patient: 25-34 minutes Medications reviewed and adjusted accordingly: Yes Anticipated discharge: Home Within: Other - Inpatient Certification Based on my medical assessment, after consideration of the patient's comorbidities, presenting symptoms, or acuity I expect that the services needed warrant INPATIENT care.: Yes I certify that my determination is in accordance with my understanding of Medicare's requirements for reasonable and necessary INPATIENT services [42 CFR 412.3e].: Yes Medical Necessity: Need Close Monitoring Due to Risk of Patient Decompensation, Need For IV Fluids, Need For Continuous Telemetry Monitoring, Need for Pain Control, Need for IV Antibiotics, Risk of Complication if Not Cared For in Hospital Post Hospital Care: D/C [employer] 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
[2017-08-21] MEDS: ONDANSETRON HCL INJ/PF 4 MG/2 ML SDV IV PRN ×6 (01:42→23:09)
[2017-08-21] MEDS: HYDROMORPHONE HCL INJ/PF 2 MG/ML AMPULE IV PRN ×6 (01:42→23:09)
[2017-08-21] MEDS: LANSOPRAZOLE 30 MG TAB.RAP.DR PO SCH (05:25)
[2017-08-21 06:32] LABS: HEMATOCRIT 20.8 % (37.9-51.0); HGB HCT DIFFERENCE 0.8; MEAN CORPUSCULAR HEMOGLOBIN 36.7 pg (27.0-33.4); MEAN CORPUSCULAR HGB CONC 34.9 g/dL (32.0-36.0); MEAN CORPUSCULAR VOLUME 105 fl (80-97); RED BLOOD COUNT 1.97 10^6/uL (4.35-5.55); RED CELL DISTRIBUTION WIDTH 25.6 % (11.5-14.0)
[2017-08-21 06:44] LABS: HEMOGLOBIN 7.2 g/dL (13.5-17.0)
[2017-08-21 06:59] LABS: ABSOLUTE EOSINOPHILS# (MANUAL) 0.2 10^3/uL (0.0-0.6); BASOPHILS % (MANUAL) 0 % (0-2); EOSINOPHILS % (MANUAL) 3 % (0-6); LYMPHOCYTES % (MANUAL) 31 % (13-45); NUCLEATED RED BLOOD CELLS 49 /100 WBC (0); TOTAL CELLS COUNTED 100
[2017-08-21 07:01] LABS: ANION GAP 9 (5-19); BLOOD UREA NITROGEN 5 mg/dL (7-20); CALCIUM 8.5 mg/dL (8.4-10.2); CARBON DIOXIDE 27 mmol/L (22-30); CHLORIDE 107 mmol/L (98-107); CREATININE RESULT 0.61 mg/dL (0.52-1.25); GLUCOSE 106 mg/dL (75-110); POTASSIUM 4.1 mmol/L (3.6-5.0); SODIUM 143.3 mmol/L (137-145)
[2017-08-21 07:02] LABS: ANISOCYTOSIS 3+; POLYCHROMASIA 1+; SCHISTOCYTES SLIGHT; TARGET CELLS 1+; TEAR DROP CELLS SLIGHT
[2017-08-21 07:03] LABS: HOWELL-JOLLY BODIES PRESENT; HYPOCHROMASIA 1+; POIKILOCYTOSIS 2+
[2017-08-21 07:07] LABS: WHITE BLOOD COUNT 6.6 10^3/uL (4.0-10.5)
[2017-08-21] MEDS ORDERED: NORMAL SALINE 250 ML IV PRN ×2 (07:29)
[2017-08-21] MEDS ORDERED: HYDROMORPHONE HCL INJ/PF 2 MG/ML AMPULE IV ONE (07:34)
--- NOTE | 2017-08-21 07:34 | PDOC PROGRESS REPORT ---
Subjective Progress Note for:: 08/21/17 Subjective:: Patient continue to reported persistent multiple joints aches and pain despite current pain management regimen. He denied chest pain or difficulty with breathing. There is intermittent nausea and vomiting. No documented fever. he denied chills. No diarrhea. Reason For Visit: PNEUMONIA Physical Exam Vital Signs: Temp Pulse Resp BP Pulse Ox 98.3 F 93 16 129/77 H 96 08/21/17 00:30 08/21/17 07:00 08/21/17 00:30 08/21/17 00:30 08/21/17 00:47 Intake & Output 08/20/17 08/21/17 08/22/17 06:59 06:59 06:59 Intake Total 3054 3962 Output Total 2875 3500 Balance 179 462 Weight 62.8 kg 62.1 kg Physical Exam: General appearance: PRESENT: mild distress - related to pain crisis Head exam: PRESENT: atraumatic, normocephalic Eye exam: PRESENT: conjunctiva pink, EOMI, PERRLA. ABSENT: scleral icterus Respiratory exam: PRESENT: clear to auscultation ethan Cardiovascular exam: PRESENT: RRR. ABSENT: diastolic murmur, rubs, systolic murmur GI/Abdominal exam: PRESENT: normal bowel sounds, soft. ABSENT: distended, guarding, mass, organomegaly, rebound, tenderness Extremities exam: ABSENT: pedal edema Musculoskeletal exam: PRESENT: normal inspection Neurological exam: PRESENT: alert, awake, oriented to person, oriented to place , oriented to time, oriented to situation, CN II-XII grossly intact. ABSENT: motor sensory deficit Psychiatric exam: PRESENT: appropriate affect, normal mood. ABSENT: homicidal ideation, suicidal ideation Skin exam: PRESENT: dry, intact, warm. ABSENT: cyanosis, rash Results Laboratory Results: 08/21/17 05:30 08/21/17 06:20 08/21/17 08/21/17 05:30 06:20 WBC 6.6 RBC 1.97 L Hgb 7.2 L Hct 20.8 L MCV 105 H MCH 36.7 H MCHC 34.9 RDW 25.6 H Plt Count 144 L Seg Neutrophils % Not Reportable Lymphocytes % Not Reportable Monocytes % Not Reportable Eosinophils % Not Reportable Basophils % Not Reportable Absolute Neutrophils Not Reportable Absolute Lymphocytes Not Reportable Absolute Monocytes Not Reportable Absolute Eosinophils Not Reportable Absolute Basophils Not Reportable Sodium 143.3 Potassium 4.1 Chloride 107 Carbon Dioxide 27 Anion Gap 9 BUN 5 L Creatinine 0.61 Est GFR ( Amer) > 60 Est GFR (Non-Af Amer) > 60 Glucose 106 Calcium 8.5 Impressions: Chest X-Ray 08/18/17 21:16 IMPRESSION: Peribronchial cuffing, increased interstitial changes and small patchy airspace opacities are present in the lung bases. Right-sided central venous catheter tip remains projecting over the right internal jugular vein. 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 Is this a current diagnosis for this admission?: Yes (3) Sickle cell disease with crisis Is this a current diagnosis for this admission?: Yes (4) Asthma Qualifiers: Asthma severity: mild Asthma complication type: uncomplicated Is this a current diagnosis for this admission?: Yes (5) Gram positive septicemia Is this a current diagnosis for this admission?: Yes - Time Time Spent with patient: 25-34 minutes Medications reviewed and adjusted accordingly: Yes Anticipated discharge: Home Within: Other - Inpatient Certification Based on my medical assessment, after consideration of the patient's comorbidities, presenting symptoms, or acuity I expect that the services needed warrant INPATIENT care.: Yes I certify that my determination is in accordance with my understanding of Medicare's requirements for reasonable and necessary INPATIENT services [42 CFR 412.3e].: Yes Medical Necessity: Need Close Monitoring Due to Risk of Patient Decompensation, Need For IV Fluids, Need For Continuous Telemetry Monitoring, Need for IV Antibiotics, Risk of Complication if Not Cared For in Hospital Post Hospital Care: D/C [employer] Documentation - Plan Summary Plan Summary: Continue current antibiotic coverage. Increase IN Dilaudid to 2mg [id number]. Transfuse 2 units PRBC. Continue all other current mediation management. Dr Jeffries will cover my service thereafter till 08/31/17.
[2017-08-21] MEDS: FAMOTIDINE 20 MG TABLET PO SCH ×2 (10:39→23:08)
[2017-08-21] MEDS: GUAIFENESIN 600 MG TABLET.SA PO SCH ×2 (10:39→23:08)
[2017-08-21] MEDS: FOLIC ACID 1 MG TABLET PO SCH (10:40)
[2017-08-21] MEDS: AZITHROMYCIN 500 MG in DEXTROSE 5%-WATER 250 ML IV SCH (10:40)
[2017-08-21] MEDS: HYDROXYUREA 500 MG CAPSULE PO SCH (10:40)
[2017-08-21] MEDS: CEFEPIME 2 GM/D5W RTU 2 GM/50 ML RTUPB IV SCH ×2 (12:08→23:09)
[2017-08-21] MEDS: NORMAL SALINE 1000 ML 1,000 ML IV PRN (23:24)
[2017-08-22 02:57] LABS: HEMATOCRIT 28.5 % (37.9-51.0); HGB HCT DIFFERENCE 1.2; MEAN CORPUSCULAR HEMOGLOBIN 32.8 pg (27.0-33.4); MEAN CORPUSCULAR HGB CONC 34.7 g/dL (32.0-36.0); RED BLOOD COUNT 3.01 10^6/uL (4.35-5.55)
[2017-08-22 03:01] LABS: ANION GAP 6 (5-19); BLOOD UREA NITROGEN 5 mg/dL (7-20); CARBON DIOXIDE 30 mmol/L (22-30); CHLORIDE 109 mmol/L (98-107); CREATININE RESULT 0.67 mg/dL (0.52-1.25); GLUCOSE 107 mg/dL (75-110); POTASSIUM 3.9 mmol/L (3.6-5.0); SODIUM 144.9 mmol/L (137-145)
[2017-08-22 03:20] LABS: HEMOGLOBIN 9.9 g/dL (13.5-17.0); MEAN CORPUSCULAR VOLUME 95 fl (80-97)
[2017-08-22 03:21] LABS: WHITE BLOOD COUNT 5.2 10^3/uL (4.0-10.5)
[2017-08-22 03:22] LABS: ABSOLUTE EOSINOPHILS# (MANUAL) 0.4 10^3/uL (0.0-0.6); ANISOCYTOSIS 4+; BASOPHILS % (MANUAL) 2 % (0-2); EOSINOPHILS % (MANUAL) 7 % (0-6); LYMPHOCYTES % (MANUAL) 44 % (13-45); NUCLEATED RED BLOOD CELLS 55 /100 WBC (0); OVALOCYTES 1+; POIKILOCYTOSIS 2+; POLYCHROMASIA SLIGHT; SCHISTOCYTES SLIGHT; TARGET CELLS 2+; TOTAL CELLS COUNTED 100; TOXIC VACUOLATION PRESENT
[2017-08-22 03:24] LABS: HOWELL-JOLLY BODIES PRESENT; HYPOCHROMASIA SLIGHT
[2017-08-22] MEDS: ONDANSETRON HCL INJ/PF 4 MG/2 ML SDV IV PRN ×5 (03:45→20:57)
[2017-08-22] MEDS: HYDROMORPHONE HCL INJ/PF 2 MG/ML AMPULE IV PRN ×5 (03:45→21:02)
[2017-08-22] MEDS: LANSOPRAZOLE 30 MG TAB.RAP.DR PO SCH (05:19)
[2017-08-22] MEDS: NORMAL SALINE 1000 ML 1,000 ML IV PRN ×2 (08:10→16:50)
[2017-08-22] MEDS: FOLIC ACID 1 MG TABLET PO SCH (12:45)
[2017-08-22] MEDS: GUAIFENESIN 600 MG TABLET.SA PO SCH ×2 (12:45→21:48)
[2017-08-22] MEDS: FAMOTIDINE 20 MG TABLET PO SCH ×2 (12:46→21:48)
[2017-08-22] MEDS: CEFEPIME 2 GM/D5W RTU 2 GM/50 ML RTUPB IV SCH ×2 (12:47→21:48)
[2017-08-22] MEDS: HYDROXYUREA 500 MG CAPSULE PO SCH (12:47)
[2017-08-22] MEDS: AZITHROMYCIN 500 MG in DEXTROSE 5%-WATER 250 ML IV SCH (12:48)
[2017-08-22] MEDS: FENTANYL 100 MCG/HR PATCH.TD72 TOP SCH (20:57)
--- NOTE | 2017-08-22 22:20 | PDOC PROGRESS REPORT ---
Subjective Progress Note for:: 08/22/17 Subjective:: Patient seen by the bedside admitted for the management of pneumonia in the setting of sickle cell disease Reason For Visit: PNEUMONIA Physical Exam Vital Signs: Temp Pulse Resp BP Pulse Ox 98.2 F 87 16 132/75 H 96 08/22/17 19:25 08/22/17 19:25 08/22/17 19:25 08/22/17 19:25 08/22/17 19:25 Intake & Output 08/21/17 08/22/17 08/23/17 06:59 06:59 06:59 Intake Total 3962 4536 2333 Output Total 3500 1790 1425 Balance 462 2746 908 Weight 62.1 kg 62.1 kg General appearance: PRESENT: mild distress Head exam: PRESENT: atraumatic, normocephalic Eye exam: PRESENT: conjunctiva pink, EOMI, PERRLA Mouth exam: PRESENT: moist, tongue midline Neck exam: PRESENT: full ROM Respiratory exam: PRESENT: clear to auscultation ethan Cardiovascular exam: PRESENT: RRR, +S1, +S2 Vascular exam: PRESENT: normal capillary refill GI/Abdominal exam: PRESENT: normal bowel sounds, soft Rectal exam: PRESENT: deferred Neurological exam: PRESENT: alert Psychiatric exam: PRESENT: appropriate affect, normal mood Skin exam: PRESENT: dry, intact, warm Results Laboratory Results: 08/22/17 02:40 08/22/17 02:40 08/22/17 08/22/17 02:40 02:40 WBC 5.2 RBC 3.01 L Hgb 9.9 L D Hct 28.5 L MCV 95 D MCH 32.8 MCHC 34.7 RDW 29.0 H Plt Count 198 Seg Neutrophils % Not Reportable Lymphocytes % Not Reportable Monocytes % Not Reportable Eosinophils % Not Reportable Basophils % Not Reportable Absolute Neutrophils Not Reportable Absolute Lymphocytes Not Reportable Absolute Monocytes Not Reportable Absolute Eosinophils Not Reportable Absolute Basophils Not Reportable Sodium 144.9 Potassium 3.9 Chloride 109 H Carbon Dioxide 30 Anion Gap 6 BUN 5 L Creatinine 0.67 Est GFR ( Amer) > 60 Est GFR (Non-Af Amer) > 60 Glucose 107 Calcium 9.0 Impressions: Chest X-Ray 08/18/17 21:16 IMPRESSION: Peribronchial cuffing, increased interstitial changes and small patchy airspace opacities are present in the lung bases. Right-sided central venous catheter tip remains projecting over the right internal jugular vein. Assessment & Plan - Diagnosis (2) Pneumonia Qualifiers: Pneumonia type: due to unspecified organism Laterality: right Lung location: lower lobe of lung Qualified Code(s): J18.1 - Lobar pneumonia, unspecified organism Is this a current diagnosis for this admission?: Yes (3) Gram positive septicemia Is this a current diagnosis for this admission?: Yes - Plan Summary Plan Summary: Continue treatment
[2017-08-23] MEDS: HYDROMORPHONE HCL INJ/PF 2 MG/ML AMPULE IV PRN ×6 (01:29→21:48)
[2017-08-23] MEDS: ONDANSETRON HCL INJ/PF 4 MG/2 ML SDV IV PRN ×6 (01:29→21:47)
[2017-08-23] MEDS: NORMAL SALINE 1000 ML 1,000 ML IV PRN ×3 (03:19→22:24)
[2017-08-23] MEDS: LANSOPRAZOLE 30 MG TAB.RAP.DR PO SCH (05:34)
[2017-08-23] MEDS: GUAIFENESIN 600 MG TABLET.SA PO SCH ×2 (09:42→21:47)
[2017-08-23] MEDS: CEFEPIME 2 GM/D5W RTU 2 GM/50 ML RTUPB IV SCH (09:43)
[2017-08-23] MEDS: FOLIC ACID 1 MG TABLET PO SCH (09:43)
[2017-08-23] MEDS: FAMOTIDINE 20 MG TABLET PO SCH ×2 (09:43→21:47)
[2017-08-23] MEDS: HYDROXYUREA 500 MG CAPSULE PO SCH (09:44)
[2017-08-23] MEDS: AZITHROMYCIN 500 MG in DEXTROSE 5%-WATER 250 ML IV SCH (10:30)
[2017-08-23] MEDS: LEVOFLOXACIN 750 MG/D5W RTU 750 MG/150 ML RTUPB IV SCH (15:38)
--- NOTE | 2017-08-23 20:50 | PDOC PROGRESS REPORT ---
Subjective Progress Note for:: 08/23/17 Subjective:: Patient seen by the bedside admitted for the management of pneumonia in the setting of sickle cell disease Reason For Visit: PNEUMONIA Physical Exam Vital Signs: Temp Pulse Resp BP Pulse Ox 98.2 F 69 20 115/87 H 99 08/23/17 15:32 08/23/17 19:00 08/23/17 15:32 08/23/17 15:32 08/23/17 15:32 Intake & Output 08/22/17 08/23/17 08/24/17 06:59 06:59 06:59 Intake Total 4536 6519 3122 Output Total 1790 3925 900 Balance 7232 0724 2222 Weight 62.1 kg General appearance: PRESENT: no acute distress, well-developed, well-nourished Head exam: PRESENT: atraumatic, normocephalic Eye exam: PRESENT: conjunctiva pink, EOMI, PERRLA Ear exam: PRESENT: normal external ear exam Mouth exam: PRESENT: moist, tongue midline Neck exam: PRESENT: full ROM Respiratory exam: PRESENT: clear to auscultation ethan Cardiovascular exam: PRESENT: RRR, +S1, +S2 Pulses: PRESENT: normal dorsalis pedis pul, +2 pedal pulses bilateral Vascular exam: PRESENT: normal capillary refill GI/Abdominal exam: PRESENT: normal bowel sounds, soft. ABSENT: distended, guarding, mass, organolmegaly, rebound, tenderness Rectal exam: PRESENT: deferred Neurological exam: PRESENT: alert, awake, oriented to person, oriented to place , oriented to time, oriented to situation, CN II-XII grossly intact. ABSENT: motor sensory deficit Psychiatric exam: PRESENT: appropriate affect, normal mood. ABSENT: homicidal ideation, suicidal ideation Skin exam: PRESENT: dry, intact, warm. ABSENT: cyanosis, rash Results Laboratory Results: 08/22/17 02:40 08/22/17 02:40 08/19/17 01:35 Blood Blood Culture - Final Staphylococcus Capitis 08/19/17 02:34 Blood Blood Culture - Final Staphylococcus Capitis Impressions: Chest X-Ray 08/18/17 21:16 IMPRESSION: Peribronchial cuffing, increased interstitial changes and small patchy airspace opacities are present in the lung bases. Right-sided central venous catheter tip remains projecting over the right internal jugular vein. Assessment & Plan - Diagnosis (1) Sickle cell crisis acute chest syndrome Is this a current diagnosis for this admission?: Yes (2) Pneumonia Qualifiers: Pneumonia type: due to unspecified organism Laterality: right Lung location: lower lobe of lung Qualified Code(s): J18.1 - Lobar pneumonia, unspecified organism Is this a current diagnosis for this admission?: Yes (3) Gram positive septicemia Is this a current diagnosis for this admission?: Yes
[2017-08-24] MEDS: HYDROMORPHONE HCL INJ/PF 2 MG/ML AMPULE IV PRN ×6 (02:14→23:51)
[2017-08-24] MEDS: ONDANSETRON HCL INJ/PF 4 MG/2 ML SDV IV PRN ×6 (02:15→23:51)
[2017-08-24] MEDS: LANSOPRAZOLE 30 MG TAB.RAP.DR PO SCH (05:05)
[2017-08-24] MEDS: NORMAL SALINE 1000 ML 1,000 ML IV PRN ×2 (06:26→15:42)
[2017-08-24] MEDS: FAMOTIDINE 20 MG TABLET PO SCH ×2 (11:05→21:48)
[2017-08-24] MEDS: FOLIC ACID 1 MG TABLET PO SCH (11:06)
[2017-08-24] MEDS: GUAIFENESIN 600 MG TABLET.SA PO SCH ×2 (11:06→21:48)
[2017-08-24] MEDS: HYDROXYUREA 500 MG CAPSULE PO SCH (11:08)
[2017-08-24] MEDS: LEVOFLOXACIN 750 MG/D5W RTU 750 MG/150 ML RTUPB IV SCH (15:37)
--- NOTE | 2017-08-24 19:05 | PDOC PROGRESS REPORT ---
Subjective Progress Note for:: 08/24/17 Subjective:: Patient was seen by the bedside, he was admitted for the management of pneumonia , he seemed to be stable Reason For Visit: PNEUMONIA Physical Exam Vital Signs: Temp Pulse Resp BP Pulse Ox 98.3 F 79 16 147/82 H 96 08/24/17 15:22 08/24/17 15:22 08/24/17 15:22 08/24/17 15:22 08/24/17 15:22 Intake & Output 08/23/17 08/24/17 08/25/17 06:59 06:59 06:59 Intake Total 6519 7849 2241 Output Total 3925 2450 1175 Balance 2594 5399 1066 General appearance: PRESENT: no acute distress Head exam: PRESENT: atraumatic, normocephalic Eye exam: PRESENT: PERRLA Ear exam: PRESENT: normal external ear exam Neck exam: PRESENT: full ROM Respiratory exam: PRESENT: clear to auscultation ethan Cardiovascular exam: PRESENT: RRR, +S1, +S2 Vascular exam: PRESENT: normal capillary refill GI/Abdominal exam: PRESENT: normal bowel sounds, soft Rectal exam: PRESENT: deferred Neurological exam: PRESENT: alert, awake, oriented to person, oriented to place , oriented to time, oriented to situation, CN II-XII grossly intact. ABSENT: motor sensory deficit Psychiatric exam: PRESENT: appropriate affect, normal mood Skin exam: PRESENT: dry, intact, warm Results Laboratory Results: 08/22/17 02:40 08/22/17 02:40 Impressions: Chest X-Ray 08/18/17 21:16 IMPRESSION: Peribronchial cuffing, increased interstitial changes and small patchy airspace opacities are present in the lung bases. Right-sided central venous catheter tip remains projecting over the right internal jugular vein. Assessment & Plan - Diagnosis (1) Sickle cell crisis acute chest syndrome Is this a current diagnosis for this admission?: Yes (2) Pneumonia Qualifiers: Pneumonia type: due to unspecified organism Laterality: right Lung location: lower lobe of lung Qualified Code(s): J18.1 - Lobar pneumonia, unspecified organism Is this a current diagnosis for this admission?: Yes (3) Gram positive septicemia Is this a current diagnosis for this admission?: Yes
[2017-08-25] MEDS: NORMAL SALINE 1000 ML 1,000 ML IV PRN ×2 (00:40→08:34)
[2017-08-25] MEDS: ONDANSETRON HCL INJ/PF 4 MG/2 ML SDV IV PRN ×3 (04:07→12:48)
[2017-08-25] MEDS: HYDROMORPHONE HCL INJ/PF 2 MG/ML AMPULE IV PRN ×3 (04:07→12:48)
[2017-08-25] MEDS: LANSOPRAZOLE 30 MG TAB.RAP.DR PO SCH (06:58)
[2017-08-25] MEDS: GUAIFENESIN 600 MG TABLET.SA PO SCH (09:01)
[2017-08-25] MEDS: FAMOTIDINE 20 MG TABLET PO SCH (09:01)
[2017-08-25] MEDS: FOLIC ACID 1 MG TABLET PO SCH (09:02)
[2017-08-25] MEDS: HYDROXYUREA 500 MG CAPSULE PO SCH (09:02)
[2017-08-25 14:50] VITALS: BP 123/72
--- NOTE | 2017-08-25 14:53 | PDOC DISCHARGE SUMMARY ---
General - Admit/Disc Date/PCP Admission Date/Primary Care Provider: 08/19/17 00:49 Discharge Date: 08/25/17 - Discharge Diagnosis (1) Pneumonia Is this a current diagnosis for this admission?: Yes (2) Gram positive septicemia Is this a current diagnosis for this admission?: Yes (3) Sickle cell crisis acute chest syndrome Is this a current diagnosis for this admission?: Yes - Additional Information Discharge Activity: Activity As Tolerated Home Medications: Fentanyl [Duragesic 100 Mcg/Hr Transdermal Patch] 1 patch TOP Q3D 08/19/17 Folic Acid [Folvite 1 mg Tablet] 1 mg PO DAILY 08/19/17 Hydroxyurea [Hydrea 500 mg Capsule] 1,000 mg PO SUTUTHSA@1000 08/19/17 Hydroxyurea [Hydrea 500 mg Capsule] 1,500 mg PO MOWEFR@1000 08/19/17 Ibuprofen [Motrin 800 mg Tablet] 800 mg PO Q6HP PRN 08/19/17 Oxycodone HCl [Oxy-Ir 5 mg Tablet] 5 mg PO Q4 08/19/17 History of Present Illness History of Present Illness: MARINO POZO is a 22 year old male, he has sickle cell disease he was admitted for the management of pneumonia Hospital Course Hospital Course: He has sickle cell disease, he was admitted when he presented with respiratory symptoms chest x-ray confirmed pneumonia. He was empirically treated with IV antibiotic, blood culture, sputum culture grew staph capitis he was ultimately transitioned to p.o. Levaquin, patient is improved Physical Exam Vital Signs: Temp Pulse Resp BP Pulse Ox 98.5 F 770 H 16 120/77 98 08/25/17 11:08 08/25/17 14:00 08/25/17 11:08 08/25/17 11:08 08/25/17 11:08 Intake & Output 08/24/17 08/25/17 08/26/17 06:59 06:59 06:59 Intake Total 6945 4101 Output Total 6247 9960 Balance 5309 2426 Weight 63.1 kg General appearance: PRESENT: no acute distress, well-developed, well-nourished Head exam: PRESENT: atraumatic, normocephalic Eye exam: PRESENT: conjunctiva pink, EOMI, PERRLA. ABSENT: scleral icterus Ear exam: PRESENT: normal external ear exam Mouth exam: PRESENT: moist, tongue midline Neck exam: PRESENT: full ROM Respiratory exam: PRESENT: chest wall tenderness Cardiovascular exam: PRESENT: RRR, +S1, +S2. ABSENT: diastolic murmur, rubs, systolic murmur Pulses: PRESENT: normal dorsalis pedis pul, +2 pedal pulses bilateral Vascular exam: PRESENT: normal capillary refill GI/Abdominal exam: PRESENT: normal bowel sounds, soft Rectal exam: PRESENT: deferred Neurological exam: PRESENT: alert, awake, oriented to person, oriented to place , oriented to time, oriented to situation, CN II-XII grossly intact Psychiatric exam: PRESENT: appropriate affect, normal mood Skin exam: PRESENT: dry, intact, warm Results Laboratory Results: 08/22/17 02:40 08/22/17 02:40 Impressions: Chest X-Ray 08/18/17 21:16 IMPRESSION: Peribronchial cuffing, increased interstitial changes and small patchy airspace opacities are present in the lung bases. Right-sided central venous catheter tip remains projecting over the right internal jugular vein.
== END 2017-08-25 15:32 | disposition home or self-care (01) | DRG 871 ==
LOC: ER 20:53 → EH 08-19 00:49 → 4N 08-19 02:18
PROVIDERS: ADMIT Internal Medicine Geriatric Medicine; ATTEND Internal Medicine Geriatric Medicine
PROC: 30233N1 Transfusion of Nonautologous Red Blood Cells into Peripheral Vein, Percutaneous Approach (ICD-10-PCS; principal; 2017-08-21)
DX: A41.89 Other specified sepsis (principal); D57.01 Hb-SS disease with acute chest syndrome; J18.1 Lobar pneumonia, unspecified organism; D64.9 Anemia, unspecified; J45.909 Unspecified asthma, uncomplicated; Z79.899 Other long term (current) drug therapy; Z90.49 Acquired absence of other specified parts of digestive tract; Z91.018 Allergy to other foods
CPT/HCPCS: 36415; 36430; 71020; 80048; 80053; 81001; 85025; 85045; 86850; 86900; 86901; 86902; 86920; 87040; 87077; 87086; 87088; 87186; 93005; 93010; 96361; 96374; 96375; 99285; J0456; J0692; J1170; J1200; J1956; J2270; J2405; J2543; J3490; J7030; J7050; J7060; P9016

== ENCOUNTER 2017-09-14 19:35 | Emergency (ER) | payer MEDICAID ==
[2017-09-14] MEDS ORDERED: NORMAL SALINE 1000 ML 1,000 ML IV ONE (20:34)
[2017-09-14] MEDS ORDERED: HYDROMORPHONE HCL INJ/PF 2 MG/ML AMPULE IV ONE ×2 (20:35→23:27)
[2017-09-14] MEDS ORDERED: DIPHENHYDRAMINE HCL 50 MG/ML VIAL IV ONE (20:35)
--- NOTE | 2017-09-14 20:36 | ER Document Report ---
ED Medical Screen (RME) - General Chief Complaint: Back Pain Stated Complaint: BACK PAIN Time Seen by Provider: 09/14/17 20:34 Mode of Arrival: Ambulatory Information source: Patient TRAVEL OUTSIDE OF THE [place] IN LAST 30 DAYS: No - HPI Patient complains to provider of: sickle cell crisis/back pain Onset: Other - pt with SCD with severe back pain. Oxycontin not helping - Related Data Allergies/Adverse Reactions: Coconut * [Coconut] Allergy (Mild, Verified 09/14/17 19:53) transpore tape Allergy (Mild, Uncoded 09/14/17 19:53) Hives Past Medical History - Social History Frequency of alcohol use: None Drug Abuse: None Family history: None Pulmonary Medical History: Reports: Hx Asthma, Hx Pneumonia Renal/ Medical History: Denies: Hx Peritoneal Dialysis Psychiatric Medical History: Denies: Hx Depression Past Surgical History: Reports: Hx Abdominal Surgery - Gallstones removal, Hx Cholecystectomy, Hx Orthopedic Surgery - Fluid drained from right foot, Hx Vascular Surgery - Port placement - Immunizations Immunizations up to date: Yes Hx Diphtheria, Pertussis, Tetanus Vaccination: Yes History of Influenza Vaccine for 06/2017 - 10/2017 Season: Yes Influenza Administration Date for 06/2017 - 10/2017 Season: 06/02/17 Physical Exam - Vital signs Vitals: Temp Pulse Resp BP Pulse Ox 99 F 121 H 18 134/94 H 97 09/14/17 19:39 09/14/17 19:39 09/14/17 19:39 09/14/17 19:39 09/14/17 19:39 Course - Vital Signs Vital signs: Temp Pulse Resp BP Pulse Ox 99 F 121 H 18 134/94 H 97 09/14/17 19:39 09/14/17 19:39 09/14/17 19:39 09/14/17 19:39 09/14/17 19:39
[2017-09-14] MEDS ORDERED: ONDANSETRON HCL INJ/PF 4 MG/2 ML SDV IV ONE (22:11)
--- NOTE | 2017-09-14 22:15 | ER Document Report ---
ED General - General Chief Complaint: Back Pain Stated Complaint: BACK PAIN Time Seen by Provider: 09/14/17 20:34 Mode of Arrival: Ambulatory Notes: Patient is a 22-year-old male who presents with complaint of back pain and some dyspnea. 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 Is felt sick for 2 days. He says he is unsure if the weather but he is felt unwell. No fevers. No vomiting. No diarrhea. No chest pain. No abdominal pain. Little bit of pain to his left leg as well. No history of PE. He has had acute chest syndrome twice. This feels a little bit different than his typical acute chest syndrome. He is followed by Dr. Carlos and Dr. Stanton. No other complaints at this time. TRAVEL OUTSIDE OF THE [place] IN LAST 30 DAYS: No - Related Data Allergies/Adverse Reactions: Coconut * [Coconut] Allergy (Mild, Verified 09/14/17 19:53) transpore tape Allergy (Mild, Uncoded 09/14/17 19:53) Hives Past Medical History - General Information source: Patient - Social History Smoking Status: Never Smoker Frequency of alcohol use: None Drug Abuse: None Family History: Reviewed & Not Pertinent, Arthritis, DM, Hypertension, Other - Sickle cell trait both parents and asthma Patient has suicidal ideation: No Patient has homicidal ideation: No Pulmonary Medical History: Reports: Hx Asthma, Hx Pneumonia Renal/ Medical History: Denies: Hx Peritoneal Dialysis Psychiatric Medical History: Denies: Hx Depression Past Surgical History: Reports: Hx Abdominal Surgery - Gallstones removal, Hx Cholecystectomy, Hx Orthopedic Surgery - Fluid drained from right foot, Hx Vascular Surgery - Port placement - Immunizations Immunizations up to date: Yes Hx Diphtheria, Pertussis, Tetanus Vaccination: Yes Hx Pneumococcal Vaccination: 01/15/13 Review of Systems - Review of Systems Notes: My Normal Review Basic REVIEW OF SYSTEMS: CONSTITUTIONAL : Denies fever, chills, or sweats. Denies recent illness. EENT: Denies eye, ear, throat, or mouth pain or symptoms. Denies nasal or sinus congestion. CARDIOVASCULAR: Denies chest pain. RESPIRATORY: Mild shortness of breath. GASTROINTESTINAL: Denies abdominal pain. Denies nausea, vomiting, or diarrhea. Denies constipation. Last BM: GENITOURINARY: Denies difficulty urinating, painful urination, burning, frequency, or blood in urine. MUSCULOSKELETAL: Back pain. Left leg pain SKIN: Denies rash or skin lesions. HEMATOLOGIC : Denies easy bruising or bleeding. LYMPHATIC: Denies swollen, enlarged glands. NEUROLOGICAL: Denies altered mental status or loss of consciousness. Denies headache. Denies weakness or paralysis or loss of use of either side. Denies problems with gait or speech. Denies sensory or motor loss. ALL OTHER SYSTEMS REVIEWED AND NEGATIVE. Physical Exam - Vital signs Vitals: Temp Pulse Resp BP Pulse Ox 99 F 121 H 18 134/94 H 97 09/14/17 19:39 09/14/17 19:39 09/14/17 19:39 09/14/17 19:39 09/14/17 19:39 - Notes Notes: General Appearance: Well nourished, alert, cooperative, no acute distress, mild obvious discomfort. Vitals: reviewed, See vital signs table. Head: no swelling or tenderness to the head Eyes: PERRL, EOMI, Conjuctiva clear Mouth: No decreasd moisture Neck: Supple, no neck tenderness, No thyromegaly Lungs: No wheezing, No rales, No rhonci, No accessory muscle use, good air exchange bilaterally. Heart: Tachycardic rate, Regular rythm, No murmur, no rub Abdomen: Normal BS, soft, No rigidity, No abdominal tenderness, No guarding, no rebound, no abdominal masses, no organomegaly Extremities: strength 5/5 in all extremities, good pulses in all extremities, no swelling or tenderness in the extremities, no edema. Skin: warm, dry, appropriate color, no rash Neuro: speech clear, oriented x 3, normal affect, responds appropriately to questions. Course - Re-evaluation Re-evalutation: 09/14/17 23:28 I reevaluated Mr. Kauffman. He says pain is improving but he still has some pain in his back. He looks comfortable. I will give another dose of pain medicine. I will place him on the monitor so I can watch his heart rate closer. 09/15/17 00:58 Patient's pain continues to improve. She still has some pain but it is much better when he first arrived. He still some itching which usually gets with Dilaudid. Will give another 25 mg Benadryl 1 more dose of Dilaudid. Will give another bolus of IV fluids. Heart rate is still elevated. He does not appear short of breath but he says he initially felt short of breath when he got here and his heart rate still elevated has history of sickle cell disease and therefore obtain a CTA to rule out PE as a potential cause. Dictation of this chart was performed using voice recognition software; therefore, there may be some unintended grammatical errors. 09/15/17 03:32 Patient is feeling much improved. His CT is negative. His heart rate is improved. He looks well. He did mention he is on of his oxycodone and especially Dr. Carlos on Saturday. I did look up his history and the nurse prescriber database. He does get all of his oxycodone from Dr. Carlos his last prescription was on August 02 so it does coincide with the story. I will write him a very short prescription for him through until Saturday when he sees Dr. Carlos. Patient encouraged to return to ER immediately if he has worsening recurrent pain, difficulty breathing, fevers, or feels unwell. Patient agrees with plan will be discharged home. Dictation of this chart was performed using voice recognition software; therefore, there may be some unintended grammatical errors. - Vital Signs Vital signs: Temp Pulse Resp BP Pulse Ox 99 F 121 H 19 132/79 H 93 09/14/17 19:39 09/14/17 19:39 09/15/17 00:11 09/15/17 00:11 09/15/17 00:11 - Laboratory Result Diagrams: 09/14/17 22:49 09/14/17 22:49 Laboratory results interpreted by me: 09/14/17 09/14/17 22:49 22:49 RBC 3.18 L Hgb 10.9 L Hct 31.2 L MCV 98 H MCH 34.2 H RDW 30.4 H Retic Count (auto) 10.22 H Absolute Retic 0.326 H Sodium 147.1 H Chloride 109 H Total Bilirubin 3.7 H Direct Bilirubin 1.1 H AST 60 H Alkaline Phosphatase 128 H Total Protein 10.1 H Albumin 5.5 H Discharge - Discharge Clinical Impression: Back pain Qualifiers: Back pain location: low back pain Chronicity: unspecified Back pain laterality : bilateral Sciatica presence: without sciatica Qualified Code(s): M54.5 - Low back pain Sickle cell anemia Qualifiers: Sickle-cell associated disorders: with unspecified crisis Qualified Code(s): D57.00 - Hb-SS disease with crisis, unspecified Condition: Good Disposition: HOME, SELF-CARE Additional Instructions: Please follow up closely with Dr. Cralos on Saturday for reevaluation. Please return to the ER immediately if you have fevers, worsening pain, difficulty breathing, or feel unwell. Prescriptions: Oxycodone HCl [Oxycontin Ir 5 Mg Tablet] 1 - 2 mg PO Q6HP PRN #15 tablet PRN Reason: For Pain
--- NOTE | 2017-09-14 22:38 | RADIOLOGY REPORT (SQ) ---
EXAM DESCRIPTION: CHEST SINGLE VIEW COMPLETED DATE/TIME: 09/14/2017 10:30 pm REASON FOR STUDY: dyspnea COMPARISON: 08/18/2017 EXAM PARAMETERS: NUMBER OF VIEWS: One view. TECHNIQUE: Single frontal radiographic view of the chest acquired. RADIATION DOSE: NA LIMITATIONS: None. FINDINGS: LUNGS AND PLEURA: No opacities, masses or pneumothorax. No pleural effusion. MEDIASTINUM AND HILAR STRUCTURES: No masses. Contour normal. HEART AND VASCULAR STRUCTURES: Heart normal in size. Normal vasculature. BONES: Changes related to sickle cell. HARDWARE: Venous access catheter tip at cavoatrial junction. OTHER: No other significant finding. IMPRESSION: NO ACUTE RADIOGRAPHIC FINDING IN THE CHEST. TECHNICAL DOCUMENTATION: JOB ID: [id number] [employer]- All Rights Reserved
[2017-09-14 23:32] LABS: ABSOLUTE BASOPHILS # (AUTO) 0.1 10^3/uL (0.0-0.2); ABSOLUTE LYMPHOCYTES (AUTO) 1.9 10^3/uL (0.5-4.7); ABSOLUTE MONOCYTES (AUTO) 0.9 10^3/uL (0.1-1.4); ABSOLUTE NEUT (AUTO) 4.2 10^3/uL (1.7-8.2); ABSOLUTE RETICS # 0.326 10^6/uL (0.028-0.122); EOSINOPHILS % (AUTO) 0.1 % (0-6); HEMATOCRIT 31.2 % (37.9-51.0); HEMOGLOBIN 10.9 g/dL (13.5-17.0); LYMPHOCYTES % (AUTO) 27.1 % (13-45); MEAN CORPUSCULAR HEMOGLOBIN 34.2 pg (27.0-33.4); MEAN CORPUSCULAR HGB CONC 34.9 g/dL (32.0-36.0); MEAN CORPUSCULAR VOLUME 98 fl (80-97); MONOCYTES % (AUTO) 12.5 % (3-13); PLATELET COUNT 238 10^3/uL (150-450); RED BLOOD COUNT 3.18 10^6/uL (4.35-5.55); RETICULOCYTE COUNT (AUTO) 10.22 % (0.66-2.85); SEGMENTED NEUTROPHILS % (AUTO) 59.3 % (42-78); TOTAL CELLS COUNTED % (AUTO) 100 %; WHITE BLOOD COUNT 7.1 10^3/uL (4.0-10.5)
[2017-09-14 23:53] LABS: PLATELET COMMENT ADEQUATE; PLATELET LARGE PRESENT
[2017-09-14 23:57] LABS: SICKLE RED CELLS 2+
[2017-09-14 23:58] LABS: POLYCHROMASIA 2+; STOMATOCYTES SLIGHT; TARGET CELLS 1+
[2017-09-14 23:59] LABS: ANISOCYTOSIS 3+; HYPOCHROMASIA 1+; POIKILOCYTOSIS 2+
[2017-09-15] LABS: HOWELL-JOLLY BODIES PRESENT
[2017-09-15 00:05] LABS: RED CELL DISTRIBUTION WIDTH 30.4 % (11.5-14.0)
[2017-09-15 00:29] LABS: ALANINE AMINOTRANSFERASE 26 U/L (21-72); ALBUMIN 5.5 g/dL (3.5-5.0); ALKALINE PHOSPHATASE 128 U/L (38-126); ANION GAP 15 (5-19); ASPARTATE AMINO TRANSFERASE 60 U/L (17-59); BILIRUBIN,DIRECT 1.1 mg/dL (0.0-0.4); BILIRUBIN,TOTAL 3.7 mg/dL (0.2-1.3); BLOOD UREA NITROGEN 15 mg/dL (7-20); CALCIUM 10.2 mg/dL (8.4-10.2); CARBON DIOXIDE 23 mmol/L (22-30); CHLORIDE 109 mmol/L (98-107); GLUCOSE 96 mg/dL (75-110); POTASSIUM 4.1 mmol/L (3.6-5.0); SODIUM 147.1 mmol/L (137-145); TOTAL PROTEIN 10.1 g/dL (6.3-8.2)
[2017-09-15] MEDS ORDERED: NORMAL SALINE 1000 ML 1,000 ML IV ONE (00:53)
[2017-09-15] MEDS ORDERED: DIPHENHYDRAMINE HCL 50 MG/ML VIAL IV ONE (00:53)
[2017-09-15] MEDS ORDERED: HYDROMORPHONE HCL INJ/PF 2 MG/ML AMPULE IV ONE (00:57)
--- NOTE | 2017-09-15 03:02 | RADIOLOGY REPORT (SQ) ---
EXAM DESCRIPTION: CTA of the chest per PE protocol with contrast. CLINICAL HISTORY: tachycardia, SOB COMPARISON: None Available. TECHNIQUE: CTA of the chest obtained following the uncomplicated intravenous administration of 62 mL Isovue-370. 3-D/MIP reformatted images of the chest available for evaluation. FINDINGS: Chest: Mediastinal windows demonstrate an adequate contrast bolus. No pulmonary embolus identified. Enlargement of the main pulmonary artery. This can be seen with pulmonary arterial hypertension. Visualized thyroid gland is unremarkable. Great vessels have normal anatomic configuration. No cardiomegaly, coronary artery atherosclerosis, or pericardial effusion. No abnormalities of the esophagus. Scattered mediastinal lymph nodes are not enlarged by CT criteria. Lung windows demonstrate medial lower lobe interstitial opacities which are unchanged in configuration. No pneumothorax or pleural effusion. Oo abnormalities of the visualized trachea or airways. Limited images of the upper abdomen demonstrate no abnormalities of the visualized liver, pancreas, adrenal glands, or kidneys. Spleen is calcified and unchanged. Prior cholecystectomy. No destructive osseous lesions. Diffuse generalized sclerosis is unchanged. DLP: 545.93 mGycm IMPRESSION: 1. No pulmonary embolus. 2. Bilateral lower lobe interstitial opacities are unchanged in configuration suggesting chronic scarring. This exam was performed according to our departmental dose-optimization program, which includes automated exposure control, adjustment of the mA and/or kV according to patient size and/or use of iterative reconstruction technique.
[2017-09-15] MEDS ORDERED: HYDROCODONE/ACETAMINOPHEN 5-325 MG (6 TAB/ER DISP) PO PRN (03:16)
[2017-09-15 04:21] VITALS: BP 125/94
== END 2017-09-15 03:48 | disposition home or self-care (01) ==
LOC: ER 19:35
DX: D57.00 Hb-SS disease with crisis, unspecified (principal); M54.5 Low back pain; M79.605 Pain in left leg; R00.0 Tachycardia, unspecified; L29.9 Pruritus, unspecified; J45.909 Unspecified asthma, uncomplicated; Z91.018 Allergy to other foods; Z88.8 Allergy status to other drugs, medicaments and biological substances
CPT/HCPCS: 36591; 96376; 99284; 96361; 96374; 96375; 36415; 85025; 85045; 80053; 71045; 71275; J1200 ×2; J1170 ×2; J2405; J7030 ×2

== ENCOUNTER 2017-09-18 09:30 | Emergency (ER) | payer MEDICAID ==
[2017-09-18] MEDS ORDERED: NORMAL SALINE 1000 ML 1,000 ML IV ONE (10:18)
[2017-09-18] MEDS ORDERED: ONDANSETRON HCL INJ/PF 4 MG/2 ML SDV IV ONE (10:18)
--- NOTE | 2017-09-18 10:18 | ER Document Report ---
ED Medical Screen (RME) - General Chief Complaint: Sickle Cell Crisis Stated Complaint: BACK AND CHEST PAIN Time Seen by Provider: 09/18/17 10:13 Notes: 22-year-old sickle cell patient comes emergency room complaining of 2 day history of vomiting with diarrhea and back and chest pain. He was here 4 days ago complaining of back and chest pain. At that time his reticulocyte count was just over 10 which is about half what it is on presentations with illness. Will repeat his CBC, Chem-12, lactic acid, reticulocyte count, urinalysis. I have greeted and performed a rapid initial assessment of this patient. A comprehensive ED assessment and evaluation of the patient, analysis of test results and completion of the medical decision making process will be conducted by additional ED providers. TRAVEL OUTSIDE OF THE [place] IN LAST 30 DAYS: No - Related Data Allergies/Adverse Reactions: Coconut * [Coconut] Allergy (Mild, Verified 09/14/17 19:53) transpore tape Allergy (Mild, Uncoded 09/14/17 19:53) Hives Past Medical History - Social History Chew tobacco use (# tins/day): No Frequency of alcohol use: None Drug Abuse: None Family history: None Pulmonary Medical History: Reports: Hx Asthma, Hx Pneumonia Renal/ Medical History: Denies: Hx Peritoneal Dialysis Psychiatric Medical History: Denies: Hx Depression Past Surgical History: Reports: Hx Abdominal Surgery - Gallstones removal, Hx Cholecystectomy, Hx Orthopedic Surgery - Fluid drained from right foot, Hx Vascular Surgery - Port placement - Immunizations Immunizations up to date: Yes Hx Diphtheria, Pertussis, Tetanus Vaccination: Yes History of Influenza Vaccine for 06/2017 - 10/2017 Season: Yes Influenza Administration Date for 06/2017 - 10/2017 Season: 06/02/17 Physical Exam - Vital signs Vitals: Temp Pulse Resp BP Pulse Ox 98.4 F 105 H 16 132/80 H 96 09/18/17 09:35 09/18/17 09:35 09/18/17 09:35 09/18/17 09:35 09/18/17 09:35 Course - Vital Signs Vital signs: Temp Pulse Resp BP Pulse Ox 98.4 F 105 H 16 132/80 H 96 09/18/17 09:35 09/18/17 09:35 09/18/17 09:35 09/18/17 09:35 09/18/17 09:35
[2017-09-18] MEDS ORDERED: KETOROLAC TROMETHAMINE INJ/PF 30 MG/1 ML SDV IV ONE (10:19)
[2017-09-18 11:31] LABS: HEMATOCRIT 32.3 % (37.9-51.0); MEAN CORPUSCULAR HEMOGLOBIN 34.3 pg (27.0-33.4); MEAN CORPUSCULAR HGB CONC 34.2 g/dL (32.0-36.0); MEAN CORPUSCULAR VOLUME 101 fl (80-97); PLATELET COUNT 276 10^3/uL (150-450); RED BLOOD COUNT 3.21 10^6/uL (4.35-5.55); RED CELL DISTRIBUTION WIDTH 30.4 % (11.5-14.0); RETICULOCYTE COUNT (AUTO) 10.29 % (0.66-2.85); WHITE BLOOD COUNT 7.7 10^3/uL (4.0-10.5)
[2017-09-18 11:41] LABS: ALANINE AMINOTRANSFERASE 28 U/L (21-72); ALBUMIN 4.9 g/dL (3.5-5.0); ALKALINE PHOSPHATASE 105 U/L (38-126); ANION GAP 11 (5-19); ASPARTATE AMINO TRANSFERASE 39 U/L (17-59); BILIRUBIN,DIRECT 0.6 mg/dL (0.0-0.4); BLOOD UREA NITROGEN 9 mg/dL (7-20); CALCIUM 9.4 mg/dL (8.4-10.2); CARBON DIOXIDE 25 mmol/L (22-30); CHLORIDE 108 mmol/L (98-107); GLUCOSE 90 mg/dL (75-110); POTASSIUM 3.5 mmol/L (3.6-5.0); SODIUM 143.8 mmol/L (137-145); TOTAL PROTEIN 8.5 g/dL (6.3-8.2)
--- NOTE | 2017-09-18 11:46 | ER Document Report ---
ED General Pain - General Chief Complaint: Sickle Cell Crisis Stated Complaint: BACK AND CHEST PAIN Time Seen by Provider: 09/18/17 10:13 Notes: The patient is a 22-year-old male, past medical history sickle cell disease, presents with 2 days of worsening back and chest pain that is typical for his sickle cell pain crisis. He tried his home oxycodone without much relief of his symptoms. Patient denies cough, fevers, shortness of breath, leg swelling, history of DVTs, rash, difficult to walking, numbness, tingling or headache. TRAVEL OUTSIDE OF THE [place] IN LAST 30 DAYS: No - Related Data Allergies/Adverse Reactions: Coconut * [Coconut] Allergy (Mild, Verified 09/14/17 19:53) transpore tape Allergy (Mild, Uncoded 09/14/17 19:53) Hives Past Medical History - General Information source: Patient - Social History Smoking Status: Never Smoker Chew tobacco use (# tins/day): No Frequency of alcohol use: None Drug Abuse: None Family History: Reviewed & Not Pertinent, Arthritis, DM, Hypertension, Other - Sickle cell trait both parents and asthma Patient has suicidal ideation: No Patient has homicidal ideation: No Pulmonary Medical History: Reports: Hx Asthma, Hx Pneumonia Renal/ Medical History: Denies: Hx Peritoneal Dialysis Psychiatric Medical History: Denies: Hx Depression Past Surgical History: Reports: Hx Abdominal Surgery - Gallstones removal, Hx Cholecystectomy, Hx Orthopedic Surgery - Fluid drained from right foot, Hx Vascular Surgery - Port placement - Immunizations Immunizations up to date: Yes Hx Diphtheria, Pertussis, Tetanus Vaccination: Yes Hx Pneumococcal Vaccination: 01/15/13 Review of Systems - Review of Systems Notes: REVIEW OF SYSTEMS: CONSTITUTIONAL: -fevers, -chills EENT: -eye pain, -difficulty swallowing, -nasal congestion CARDIOVASCULAR: +chest pain, -syncope. RESPIRATORY: -cough, -SOB GASTROINTESTINAL: -abdominal pain, -nausea, -vomiting, -diarrhea GENITOURINARY: -dysuria, -hematuria MUSCULOSKELETAL: +back pain, -neck pain SKIN: -rash or skin lesions. HEMATOLOGIC: -easy bruising or bleeding. LYMPHATIC: -swollen, enlarged glands. NEUROLOGICAL: -altered mental status or loss of consciousness, -headache, - neurologic symptoms PSYCHIATRIC: -anxiety, -depression. ALL OTHER SYSTEMS REVIEWED AND NEGATIVE. Physical Exam - Vital signs Vitals: Temp Pulse Resp BP Pulse Ox 98.4 F 105 H 16 132/80 H 96 09/18/17 09:35 09/18/17 09:35 09/18/17 09:35 09/18/17 09:35 09/18/17 09:35 - Notes Notes: PHYSICAL EXAMINATION: GENERAL: Well-appearing, well-nourished and in no acute distress. HEAD: Atraumatic, normocephalic. EYES: Pupils equal round and reactive to light, extraocular movements intact, sclera anicteric, conjunctiva are normal. ENT: nares patent, oropharynx clear without exudates. Moist mucous membranes. NECK: Normal range of motion, supple without lymphadenopathy LUNGS: Breath sounds clear to auscultation bilaterally and equal. No wheezes rales or rhonchi. HEART: Regular rhythm and rate. ABDOMEN: Soft, nontender, normoactive bowel sounds. No guarding, no rebound. No masses appreciated. EXTREMITIES: Normal range of motion, no pitting or edema. No cyanosis. NEUROLOGICAL: Cranial nerves grossly intact. Normal speech, normal gait. Normal sensory and motor exams. PSYCH: Normal mood, normal affect. SKIN: Warm, Dry, normal turgor, no rashes or lesions noted. Course - Re-evaluation Re-evalutation: Patient appears well and is in no acute distress. His chest x-ray does not show any focal infiltrates, he does not have a fever his EKG does not show any ischemic changes. His reticulocyte count is 10, which is below some prior ranges. He is not anemic and his pain has improved after 2 doses of IV Dilaudid. 09/18/17 13:[address] Stanton and he recommends discharge. 09/18/17 13:56 Spoke to his User Support Specialist, Dr. Krueger, and she will see patient in her office in the morning. - Vital Signs Vital signs: Temp Pulse Resp BP Pulse Ox 98.4 F 105 H 16 132/80 H 96 09/18/17 09:35 09/18/17 09:35 09/18/17 09:35 09/18/17 09:35 09/18/17 09:35 - Laboratory Result Diagrams: 09/18/17 11:10 09/18/17 11:10 Laboratory results interpreted by me: 09/18/17 09/18/17 09/18/17 11:10 11:10 12:52 RBC 3.21 L Hgb 11.0 L Hct 32.3 L MCV 101 H MCH 34.3 H RDW 30.4 H Retic Count (auto) 10.29 H Absolute Retic 0.330 H Potassium 3.5 L Chloride 108 H Total Bilirubin 3.0 H Direct Bilirubin 0.6 H Total Protein 8.5 H Urine Protein 30 H Urine Ketones TRACE H Urine Urobilinogen 4.0 H Urine Ascorbic Acid 20 H - Diagnostic Test Radiology reviewed: Image reviewed, Reports reviewed Radiology results interpreted by me: CXR: Chronic interstitial changes, but no acute cardiopulmonary process - EKG Interpretation by Me EKG shows normal: Sinus rhythm, [place], Intervals, QRS Complexes, ST-T Waves Rate: Normal Discharge - Discharge Clinical Impression: Sickle cell disease with crisis Condition: Stable Disposition: HOME, SELF-CARE Additional Instructions: Sickle Cell Crisis You have "sickle cell crisis." Sickle cell disease is caused by abnormal hemoglobin. This hemoglobin can deform red blood cells into a sickle shape. These abnormal blood cells can block blood vessels. This causes the pain of sickle cell crisis. Sickle cell crisis can occur any time. But attacks are more likely with acute infection, dehydration, or altitude change. A crisis usually causes pain in the legs, back, abdomen, and chest. Sometimes the pain may ease and return later. The usual treatment is oxygen, pain medication, IV fluids, and treatment of infection. Attacks may take a couple of days to resolve. Return if the pain becomes more severe, or if there are new symptoms. Forms: Elevated Blood Pressure Referrals: GITA KRUEGER MD [ACTIVE STAFF] - Follow up as needed
[2017-09-18 11:53] LABS: ABSOLUTE LYMPHOCYTES# (MANUAL) 1.8 10^3/uL (0.5-4.7); ABSOLUTE MONOCYTES # (MANUAL) 0.8 10^3/uL (0.1-1.4); BASOPHILS % (MANUAL) 0 % (0-2); EOSINOPHILS % (MANUAL) 1 % (0-6); LYMPHOCYTES % (MANUAL) 23 % (13-45); MONOCYTES % (MANUAL) 10 % (3-13); NUCLEATED RED BLOOD CELLS 14 /100 WBC (0); SEGMENTED NEUTROPHILS % (MAN) 65 % (42-78); TOTAL CELLS COUNTED 100
[2017-09-18 11:57] LABS: ANISOCYTOSIS 4+; PLATELET COMMENT ADEQUATE; POLYCHROMASIA 1+; SCHISTOCYTES SLIGHT; SICKLE RED CELLS 2+; TARGET CELLS SLIGHT
[2017-09-18] MEDS ORDERED: HYDROMORPHONE HCL INJ/PF 2 MG/ML AMPULE IV ONE ×2 (11:57→13:33)
[2017-09-18] MEDS ORDERED: DIPHENHYDRAMINE HCL 50 MG CAPSULE PO ONE (11:57)
--- NOTE | 2017-09-18 13:02 | RADIOLOGY REPORT (SQ) ---
EXAM DESCRIPTION: CHEST PA/LAT COMPLETED DATE/TIME: 09/18/2017 12:33 pm REASON FOR STUDY: chest pain COMPARISON: 08/18/2017 EXAM PARAMETERS: NUMBER OF VIEWS: two views TECHNIQUE: Digital Frontal and Lateral radiographic views of the chest acquired. RADIATION DOSE: NA LIMITATIONS: none FINDINGS: LUNGS AND PLEURA: Mild chronic interstitial changes most prominently in the bases. No acu te opacities, masses or pneumothorax. No pleural effusion. MEDIASTINUM AND HILAR STRUCTURES: No masses or contour abnormalities. HEART AND VASCULAR STRUCTURES: Heart normal size. No evidence for failure. BONES: Chronic sclerotic bony changes. HARDWARE: Right-sided PICC catheter in superior vena cava. OTHER: No other significant finding. IMPRESSION: Mild chronic interstitial changes without evidence of acute cardiopulmonary disease. TECHNICAL DOCUMENTATION: JOB ID: [id number] [employer]- All Rights Reserved
[2017-09-18 13:10] LABS: APPEARANCE,URINE SLIGHTLY-CLOUDY; BILIRUBIN,URINE NEGATIVE (NEGATIVE); COLOR,URINE AMBER; GLUCOSE, URINE NEGATIVE (NEGATIVE); KETONES,URINE TRACE mg/dL (NEGATIVE); LEUKOCYTE ESTERASE,URINE NEGATIVE (NEGATIVE); NITRITE,URINE NEGATIVE (NEGATIVE); PROTEIN,URINE 30 mg/dL (NEGATIVE); URINE SPECIFIC GRAVITY 1.015
[2017-09-18 14:31] VITALS: BP 126/78
--- NOTE | 2017-09-18 23:07 | EKG REPORT ---
SEVERITY:- NORMAL ECG - SINUS RHYTHM : Confirmed by: Xenia Delgado 18-Sep-2017 23:06:19
== END 2017-09-18 14:31 | disposition home or self-care (01) ==
LOC: ER 09:30
DX: D57.00 Hb-SS disease with crisis, unspecified (principal); M54.9 Dorsalgia, unspecified; R07.9 Chest pain, unspecified; J45.909 Unspecified asthma, uncomplicated; Z91.018 Allergy to other foods; Z88.8 Allergy status to other drugs, medicaments and biological substances
CPT/HCPCS: 93005; 36591; 96376; 99284; 96361; 96374; 96375; 36415; 85025; 85045; 80053; 81001; 83605; 71046; 93010; J3490; J1885; J1170; J2405; J7030

== ENCOUNTER 2017-09-20 23:00 | Inpatient (IN) | payer MEDICAID ==
[2017-09-21 00:25] LABS: ABSOLUTE RETICS # 0.216 10^6/uL (0.028-0.122); HEMATOCRIT 32.2 % (37.9-51.0); MEAN CORPUSCULAR HEMOGLOBIN 34.4 pg (27.0-33.4); MEAN CORPUSCULAR HGB CONC 34.1 g/dL (32.0-36.0); MEAN CORPUSCULAR VOLUME 101 fl (80-97); PLATELET COUNT 244 10^3/uL (150-450); RED BLOOD COUNT 3.19 10^6/uL (4.35-5.55); RED CELL DISTRIBUTION WIDTH 27.7 % (11.5-14.0); RETICULOCYTE COUNT (AUTO) 6.78 % (0.66-2.85)
[2017-09-21] MEDS ORDERED: NORMAL SALINE 1000 ML 1,000 ML IV ONE ×2 (00:33→03:22)
--- NOTE | 2017-09-21 00:33 | ER Document Report ---
ED General - General Chief Complaint: Sickle Cell Crisis Stated Complaint: CHEST PAIN, KNEE PAIN Time Seen by Provider: 09/21/17 00:02 Notes: Patient is a 22-year-old male with a past medical history of sickle cell anemia with frequent presentations to the emergency department for pain related issues who presents with ongoing pain in his knees, chest and back. Patient describes it as a constant, throbbing, aching pain. Nothing improves or worsens the pain. He has been taking his home pain medications without relief. He was seen 2 days ago for similar complaints and discharged after receiving pain medications in the emergency department. He has not yet followed up with his primary doctor. He notes that he has had a sore throat and a cough as well in the past 24 hours he feels is worsening his chest pain. He denies any shortness of breath, fever, vomiting or diarrhea. No syncope. He has a history of similar symptoms multiple times in the past. TRAVEL OUTSIDE OF THE [place] IN LAST 30 DAYS: No - Related Data Allergies/Adverse Reactions: Coconut * [Coconut] Allergy (Mild, Verified 09/20/17 23:14) transpore tape Allergy (Mild, Uncoded 09/20/17 23:14) Hives Past Medical History - General Information source: Patient - Social History Smoking Status: Never Smoker Frequency of alcohol use: None Drug Abuse: None Lives with: Family Family History: Reviewed & Not Pertinent, Arthritis, DM, Hypertension, Other - Sickle cell trait both parents and asthma Pulmonary Medical History: Reports: Hx Asthma, Hx Pneumonia Renal/ Medical History: Denies: Hx Peritoneal Dialysis Psychiatric Medical History: Denies: Hx Depression Past Surgical History: Reports: Hx Abdominal Surgery - Gallstones removal, Hx Cholecystectomy, Hx Orthopedic Surgery - Fluid drained from right foot, Hx Vascular Surgery - Port placement - Immunizations Immunizations up to date: Yes Hx Diphtheria, Pertussis, Tetanus Vaccination: Yes Hx Pneumococcal Vaccination: 01/15/13 Review of Systems - Review of Systems Notes: Constitutional: Negative for fever. HENT: Negative for sore throat. Eyes: Negative for visual changes. Cardiovascular: Positive for chest pain. Respiratory: Negative for shortness of breath. Positive cough Gastrointestinal: Negative for abdominal pain, vomiting or diarrhea. Genitourinary: Negative for dysuria. Musculoskeletal: Positive bilateral knee pain Skin: Negative for rash. Neurological: Negative for headaches, weakness or numbness. 10 point ROS negative except as marked above and in HPI. Physical Exam - Vital signs Vitals: Temp Pulse Resp BP Pulse Ox 98.6 F 122 H 20 132/81 H 96 09/20/17 23:40 09/20/17 23:40 09/20/17 23:40 09/20/17 23:40 09/20/17 23:40 Interpretation: Normal Notes: PHYSICAL EXAMINATION: GENERAL: Well-appearing, well-nourished and in no acute distress. HEAD: Atraumatic, normocephalic. EYES: Pupils equal round and reactive to light, extraocular movements intact, sclera anicteric, conjunctiva are normal. ENT: nares patent, oropharynx clear without exudates. Moderately dry t mucous membranes. NECK: Normal range of motion, supple without lymphadenopathy LUNGS: Breath sounds clear to auscultation bilaterally and equal. No wheezes rales or rhonchi. HEART: Regular tachycardia without murmurs ABDOMEN: Soft, nontender, normoactive bowel sounds. No guarding, no rebound. No masses appreciated. EXTREMITIES: Normal range of motion, no pitting or edema. No cyanosis. NEUROLOGICAL: No focal neurological deficits. Moves all extremities spontaneously and on command. PSYCH: Normal mood, normal affect. SKIN: Warm, Dry, normal turgor, no rashes or lesions noted. Course - Re-evaluation Re-evalutation: 09/21/17 00:33 Presentation is most consistent with an uncomplicated sickle cell pain crisis. Patient has no evidence of an aplastic crisis on labs. Chest x-ray and vitals are not consistent with acute chest syndrome. Patient's pain will be controlled with up to 3 rounds of IV hyper hydromorphone and if patient's pain is unable to be controlled he will require hospitalization. He otherwise is nontoxic in appearance however he does remain tachycardic intermittently 09/21/17 03:20 Patient states that his pain continues to be uncontrolled despite receiving 3 total rounds of hydromorphone. He does have ongoing tachycardia at this time which had completely resolved after his most recent dose of hydromorphone. Patient reports that after the hydromorphone wore off his pain returned to the equal intensity. This does seem to correlate with his tachycardia to suggest that the patient is having ongoing uncontrolled pain crisis. I discussed with the patient's primary care physician Dr. Willis who is agreed to accept the patient for hospitalization. - Vital Signs Vital signs: Temp Pulse Resp BP Pulse Ox 98.6 F 122 H 20 132/81 H 96 09/20/17 23:40 09/20/17 23:40 09/20/17 23:40 09/20/17 23:40 09/20/17 23:40 - Laboratory Result Diagrams: 09/21/17 00:06 09/21/17 00:06 Laboratory results interpreted by me: 09/21/17 09/21/17 00:06 00:06 RBC 3.19 L Hgb 11.0 L Hct 32.2 L MCV 101 H MCH 34.4 H RDW 27.7 H Retic Count (auto) 6.78 H Absolute Retic 0.216 H Sodium 145.7 H - Diagnostic Test Radiology reviewed: Image reviewed, Reports reviewed Radiology results interpreted by me: 09/21/17 03:21 Chest x-ray: No acute infiltrate or pneumothorax Discharge - Discharge Clinical Impression: Sickle cell crisis, Sinus tachycardia Sickle cell anemia Qualifiers: Sickle-cell associated disorders: with unspecified crisis Qualified Code(s): D57.00 - Hb-SS disease with crisis, unspecified; D57.0 - Hb-SS disease with crisis Condition: Fair Disposition: ADMITTED OBSERVATION Admitting Provider: Maximino Unit Admitted: Telemetry Referrals: ANDREW WILLIS MD [Primary Care Provider] - Follow up as needed
[2017-09-21] MEDS: HYDROMORPHONE HCL INJ/PF 2 MG/ML AMPULE IV PRN ×10 (00:38→23:46)
--- NOTE | 2017-09-21 00:47 | RADIOLOGY REPORT (SQ) ---
EXAM DESCRIPTION: CHEST SINGLE VIEW CLINICAL HISTORY: 22 years, Male, sob COMPARISON: 09/18/2017. NUMBER OF VIEWS:1 FINDINGS: Normal lung volume, chronic blunting of the right costophrenic angle, else clear parenchyma, normal cardiac silhouette, and intact bony thorax. Right subclavian PICC tip at the SVC above the cavoatrial junction. IMPRESSION: No acute cardiopulmonary findings. 2010 [employer]- All Rights Reserved
[2017-09-21 00:53] LABS: ANION GAP 13 (5-19); BLOOD UREA NITROGEN 11 mg/dL (7-20); CALCIUM 9.2 mg/dL (8.4-10.2); CARBON DIOXIDE 27 mmol/L (22-30); CHLORIDE 106 mmol/L (98-107); GLUCOSE 104 mg/dL (75-110); POTASSIUM 3.6 mmol/L (3.6-5.0); SODIUM 145.7 mmol/L (137-145)
[2017-09-21 00:56] LABS: ABSOLUTE LYMPHOCYTES# (MANUAL) 2.3 10^3/uL (0.5-4.7); ABSOLUTE MONOCYTES # (MANUAL) 0.7 10^3/uL (0.1-1.4); BASOPHILS % (MANUAL) 0 % (0-2); EOSINOPHILS % (MANUAL) 0 % (0-6); LYMPHOCYTES % (MANUAL) 25 % (13-45); MONOCYTES % (MANUAL) 8 % (3-13); SEGMENTED NEUTROPHILS % (MAN) 67 % (42-78); TOTAL CELLS COUNTED 100
[2017-09-21 00:58] LABS: ANISOCYTOSIS 3+; HOWELL-JOLLY BODIES PRESENT; OVALOCYTES SLIGHT; PLATELET COMMENT ADEQUATE; POIKILOCYTOSIS 1+; POLYCHROMASIA 1+; SICKLE RED CELLS 1+; TARGET CELLS SLIGHT; TOXIC GRANULATION SLIGHT; TOXIC VACUOLATION PRESENT
[2017-09-21] MEDS ORDERED: DIPHENHYDRAMINE HCL 50 MG/ML VIAL IV ONE (01:44)
[2017-09-21] MEDS ORDERED: ONDANSETRON HCL INJ/PF 4 MG/2 ML SDV IV ONE (04:26)
[2017-09-21] MEDS ORDERED: DIPHENHYDRAMINE HCL 25 MG CAPSULE PO ONE (04:26)
--- NOTE | 2017-09-21 10:17 | EKG REPORT ---
SEVERITY:- BORDERLINE ECG - SINUS TACHYCARDIA PROBABLE LEFT ATRIAL ABNORMALITY BORDERLINE T ABNORMALITIES, INFERIOR LEADS : Confirmed by: Xenia Delgado 21-Sep-2017 10:16:50
[2017-09-21] MEDS ORDERED: LANSOPRAZOLE 30 MG TAB.RAP.DR PO ONE (12:00)
--- NOTE | 2017-09-21 12:03 | PDOC H&P ---
History of Present Illness Admission Date/PCP: 09/21/17 03:31 ANDREW WILLIS Patient complains of: Chest pain, multiple joints aches and pain, headache History of Present Illness: MARINO POZO is a 22 year old male patient known to my practice with frequent hospitalization due to recurrent acute episodes of SS sickle cell disease pain and hemolytic crises. Patient was evaluated and discharge from the ED about 2 days prior to his current presentation with complaint about worsening chest pain , headache, and multiple joints aches and pain, particularly his knee joints. despite administration of IV Dilaudid and hydration his symptoms persist. He reported new onset of coughing spells and sore throat since last ED visit. He denied any dizziness, shortness of breath, fever, or chills. He admitted to nausea but no vomiting. No diarrhea. No genitourinary symptoms to suggest ongoing infection. He reported compliance with his home pain management medication but no relief from his pain. Past Medical History Pulmonary Medical History: Reports: Asthma, Pneumonia Psychiatric Medical History: Denies: Depression Hematology: Reports: Anemia, Sickle Cell Disease, Bleeding Tendencies Past Surgical History Past Surgical History: Reports: Cholecystectomy, Orthopedic Surgery - Fluid drained from right foot, Vascular Surgery - Port placement Social History Lives with: Family Smoking Status: Never Smoker Frequency of Alcohol Use: None Hx Recreational Drug Use: No Drugs: None Hx Prescription Drug Abuse: No Family History Family History: Reviewed & Not Pertinent, Arthritis, DM, Hypertension, Other - Sickle cell trait both parents and asthma Parental Family History Reviewed: Yes Children Family History Reviewed: Yes Sibling(s) Family History Reviewed.: Yes Medication/Allergy Home Medications: Folic Acid [Folvite 1 mg Tablet] 1 mg PO DAILY 09/21/17 Hydromorphone HCl [Dilaudid 2 mg Tablet] 2 mg PO Q4HP PRN 09/21/17 Hydroxyurea [Hydrea 500 Mg Capsule] 2,000 mg PO DAILY 09/21/17 Ibuprofen [Motrin 800 mg Tablet] 800 mg PO Q6HP PRN 09/21/17 Allergies/Adverse Reactions: Coconut * [Coconut] Allergy (Mild, Verified 09/20/17 23:14) transpore tape Allergy (Mild, Uncoded 09/20/17 23:14) Hives Review of Systems All systems: reviewed and no additional remarkable complaints except as stated Physical Exam Vital Signs: Temp Pulse Resp BP Pulse Ox 98.6 F 122 H 19 126/81 H 92 09/20/17 23:40 09/20/17 23:40 09/21/17 11:01 09/21/17 11:01 09/21/17 11:01 General appearance: PRESENT: no acute distress, well-developed, well-nourished Head exam: PRESENT: atraumatic, normocephalic Eye exam: PRESENT: conjunctiva pink, EOMI, PERRLA. ABSENT: scleral icterus Ear exam: PRESENT: normal external ear exam Mouth exam: PRESENT: moist, tongue midline Neck exam: PRESENT: full ROM. ABSENT: carotid bruit, JVD, lymphadenopathy, thyromegaly Respiratory exam: PRESENT: clear to auscultation ethan Cardiovascular exam: PRESENT: +S1, +S2, tachycardia Pulses: PRESENT: normal dorsalis pedis pul, +2 pedal pulses bilateral Vascular exam: PRESENT: normal capillary refill. ABSENT: pallor GI/Abdominal exam: PRESENT: normal bowel sounds, soft. ABSENT: distended, guarding, mass, organolmegaly, rebound, tenderness Rectal exam: PRESENT: deferred Extremities exam: ABSENT: pedal edema Musculoskeletal exam: PRESENT: normal inspection Neurological exam: PRESENT: alert, awake, oriented to person, oriented to place , oriented to time, oriented to situation, CN II-XII grossly intact. ABSENT: motor sensory deficit Psychiatric exam: PRESENT: appropriate affect, normal mood. ABSENT: homicidal ideation, suicidal ideation Skin exam: PRESENT: dry, intact, warm. ABSENT: cyanosis, rash Results Laboratory Results: I reviewed his lab results on [employer]Game and form a significant component of my medical decision making in this case. Impressions: Chest X-Ray 09/21/17 00:02 IMPRESSION: No acute cardiopulmonary findings. 2010 [employer]- All Rights Reserved Assessment & Plan - Diagnosis (1) Sickle cell disease with crisis Is this a current diagnosis for this admission?: Yes Plan: See admitting physician orders. (2) Sickle cell anemia Qualifiers: Sickle-cell associated disorders: with unspecified crisis Qualified Code(s) : D57.00 - Hb-SS disease with crisis, unspecified; D57.0 - Hb-SS disease with crisis Is this a current diagnosis for this admission?: Yes Plan: See admitting physician orders. 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 (4) Asthma Qualifiers: Asthma severity: mild Asthma complication type: uncomplicated Is this a current diagnosis for this admission?: Yes Plan: See admitting physician orders. - Time Time Spent: 50 to 70 Minutes Medications reviewed and adjusted accordingly: Yes Anticipated discharge: Home Within: Other - Inpatient Certification Based on my medical assessment, after consideration of the patient's comorbidities, presenting symptoms, or acuity I expect that the services needed warrant INPATIENT care.: Yes I certify that my determination is in accordance with my understanding of Medicare's requirements for reasonable and necessary INPATIENT services [42 CFR 412.3e].: Yes Medical Necessity: Need Close Monitoring Due to Risk of Patient Decompensation, Need For IV Fluids, Need for Pain Control, Risk of Complication if Not Cared For in Hospital Post Hospital Care: D/C Telephone Coin Box Collector Documentation - Plan Summary Plan Summary: See admitting physician orders.
[2017-09-21 13:12] LABS: INTERNATIONAL RATION (INR) 1.22; PARTIAL THROMBOPLASTIN TIME 30.1 SEC (23.5-35.8); PROTHROMBIN TIME 16.2 SEC (11.4-15.4)
[2017-09-21] MEDS: NORMAL SALINE 1000 ML 1,000 ML IV PRN (21:46)
[2017-09-22] MEDS: HYDROMORPHONE HCL INJ/PF 2 MG/ML AMPULE IV PRN ×11 (01:52→23:05)
[2017-09-22] MEDS: NORMAL SALINE 1000 ML 1,000 ML IV PRN ×2 (04:59→12:31)
[2017-09-22] MEDS: LANSOPRAZOLE 30 MG TAB.RAP.DR PO SCH (05:34)
[2017-09-22 06:22] LABS: ABSOLUTE EOSINOPHILS # (AUTO) 0.4 10^3/uL (0.0-0.6); ABSOLUTE LYMPHOCYTES (AUTO) 2.7 10^3/uL (0.5-4.7); ABSOLUTE MONOCYTES (AUTO) 0.9 10^3/uL (0.1-1.4); BASOPHILS % (AUTO) 0.4 % (0-2); EOSINOPHILS % (AUTO) 5.5 % (0-6); HEMATOCRIT 27.1 % (37.9-51.0); HEMOGLOBIN 9.4 g/dL (13.5-17.0); LYMPHOCYTES % (AUTO) 33.8 % (13-45); MEAN CORPUSCULAR HEMOGLOBIN 34.8 pg (27.0-33.4); MEAN CORPUSCULAR HGB CONC 34.9 g/dL (32.0-36.0); MEAN CORPUSCULAR VOLUME 100 fl (80-97); PLATELET COUNT 178 10^3/uL (150-450); RED BLOOD COUNT 2.71 10^6/uL (4.35-5.55); RED CELL DISTRIBUTION WIDTH 27.2 % (11.5-14.0); SEGMENTED NEUTROPHILS % (AUTO) 49.3 % (42-78); TOTAL CELLS COUNTED % (AUTO) 100 %; WHITE BLOOD COUNT 8.1 10^3/uL (4.0-10.5)
[2017-09-22 06:49] LABS: ALANINE AMINOTRANSFERASE 23 U/L (21-72); ALBUMIN 3.9 g/dL (3.5-5.0); ALKALINE PHOSPHATASE 82 U/L (38-126); ANION GAP 8 (5-19); ASPARTATE AMINO TRANSFERASE 48 U/L (17-59); BILIRUBIN,DIRECT 0.5 mg/dL (0.0-0.4); BILIRUBIN,TOTAL 2.9 mg/dL (0.2-1.3); BLOOD UREA NITROGEN 4 mg/dL (7-20); CALCIUM 8.7 mg/dL (8.4-10.2); CARBON DIOXIDE 29 mmol/L (22-30); CHLORIDE 105 mmol/L (98-107); GLUCOSE 99 mg/dL (75-110); POTASSIUM 4.6 mmol/L (3.6-5.0); TOTAL PROTEIN 6.8 g/dL (6.3-8.2)
[2017-09-22 07:24] LABS: ANISOCYTOSIS 3+; PLATELET COMMENT ADEQUATE; POIKILOCYTOSIS 2+; SICKLE RED CELLS 1+; TARGET CELLS SLIGHT
[2017-09-22 07:25] LABS: POLYCHROMASIA 1+
[2017-09-22] MEDS: FOLIC ACID 1 MG TABLET PO SCH (10:22)
[2017-09-22] MEDS: HYDROXYUREA 500 MG CAPSULE PO SCH (10:22)
[2017-09-22] MEDS: ENOXAPARIN SODIUM INJ 40 MG/0.4 ML DISP.SYRIN SUBCUT SCH (10:23)
--- NOTE | 2017-09-22 11:02 | PDOC PROGRESS REPORT ---
Subjective Progress Note for:: 09/22/17 Subjective:: Patient continue to express significant pain multiple joints on current pain management regimen. He is on Fentanyl patch 75mcg/72 hours at home. He reported less chest pain. No significant fever, chills, or difficulty with breathing. Reason For Visit: HOMOGENEOUS SS SICKLE CELL DISEASE WITH ACUTE PAIN Physical Exam Vital Signs: Temp Pulse Resp BP Pulse Ox 98.0 F 104 H 16 116/65 99 09/22/17 08:00 09/22/17 08:00 09/22/17 08:00 09/22/17 08:00 09/22/17 08:00 Intake & Output 09/21/17 09/22/17 09/23/17 06:59 06:59 06:59 Intake Total 2777 Output Total 1000 Balance 1777 General appearance: PRESENT: mild distress - from pain Head exam: PRESENT: atraumatic, normocephalic Mouth exam: PRESENT: moist Respiratory exam: PRESENT: clear to auscultation ethan Cardiovascular exam: PRESENT: RRR. ABSENT: diastolic murmur, rubs, systolic murmur Vascular exam: PRESENT: normal capillary refill. ABSENT: pallor GI/Abdominal exam: PRESENT: normal bowel sounds, soft. ABSENT: distended, guarding, mass, organolmegaly, rebound, tenderness Extremities exam: PRESENT: tenderness - multiple joint sites. ABSENT: pedal edema Musculoskeletal exam: PRESENT: tenderness - with motion and palpation Neurological exam: PRESENT: alert, awake, oriented to person, oriented to place , oriented to time, oriented to situation, CN II-XII grossly intact. ABSENT: motor sensory deficit Psychiatric exam: PRESENT: appropriate affect, normal mood. ABSENT: homicidal ideation, suicidal ideation Skin exam: PRESENT: dry, intact, warm. ABSENT: cyanosis, rash Results Laboratory Results: 09/22/17 05:45 09/22/17 05:45 09/22/17 09/22/17 05:45 05:45 WBC 8.1 RBC 2.71 L Hgb 9.4 L Hct 27.1 L MCV 100 H MCH 34.8 H MCHC 34.9 RDW 27.2 H Plt Count 178 Seg Neutrophils % 49.3 Lymphocytes % 33.8 Monocytes % 11.0 Eosinophils % 5.5 Basophils % 0.4 Absolute Neutrophils 4.0 Absolute Lymphocytes 2.7 Absolute Monocytes 0.9 Absolute Eosinophils 0.4 Absolute Basophils 0.0 Sodium 142.0 Potassium 4.6 Chloride 105 Carbon Dioxide 29 Anion Gap 8 BUN 4 L Creatinine 0.59 Est GFR ( Amer) > 60 Est GFR (Non-Af Amer) > 60 Glucose 99 Calcium 8.7 Total Bilirubin 2.9 H AST 48 ALT 23 Alkaline Phosphatase 82 Total Protein 6.8 Albumin 3.9 Impressions: Chest X-Ray 09/21/17 00:02 IMPRESSION: No acute cardiopulmonary findings. 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 Is this a current diagnosis for this admission?: Yes (4) Asthma Qualifiers: Asthma severity: mild Asthma complication type: uncomplicated Is this a current diagnosis for this admission?: Yes - Time Time Spent with patient: 25-34 minutes Medications reviewed and adjusted accordingly: Yes Anticipated discharge: Home Within: Other - Inpatient Certification Based on my medical assessment, after consideration of the patient's comorbidities, presenting symptoms, or acuity I expect that the services needed warrant INPATIENT care.: Yes I certify that my determination is in accordance with my understanding of Medicare's requirements for reasonable and necessary INPATIENT services [42 CFR 412.3e].: Yes Medical Necessity: Need Close Monitoring Due to Risk of Patient Decompensation, Need For IV Fluids, Need For Continuous Telemetry Monitoring, Need for Pain Control, Risk of Complication if Not Cared For in Hospital Post Hospital Care: D/C Sow Manager 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
[2017-09-22] MEDS ORDERED: FENTANYL 75 MCG/HR PATCH.TD72 TD ONE (12:00)
[2017-09-23] MEDS: NORMAL SALINE 1000 ML 1,000 ML IV PRN ×2 (00:52→10:40)
[2017-09-23] MEDS: HYDROMORPHONE HCL INJ/PF 2 MG/ML AMPULE IV PRN ×10 (01:08→21:55)
[2017-09-23] MEDS: LANSOPRAZOLE 30 MG TAB.RAP.DR PO SCH (05:38)
--- NOTE | 2017-09-23 10:27 | PDOC PROGRESS REPORT ---
Subjective Progress Note for:: 09/23/17 Subjective:: Patient continue to experience pain in his knee joint and chest. Episode of anxiety last night due to of his uncle. No significant fever, chills, or difficulty with breathing. Reason For Visit: HOMOGENEOUS SS SICKLE CELL DISEASE WITH ACUTE PAIN Physical Exam Vital Signs: Temp Pulse Resp BP Pulse Ox 98.4 F 111 H 18 115/57 L 93 09/23/17 04:00 09/23/17 07:00 09/23/17 04:00 09/23/17 04:00 09/23/17 04:00 Intake & Output 09/22/17 09/23/17 09/24/17 06:59 06:59 06:59 Intake Total 2777 4313 Output Total 1000 Balance 1777 4313 Physical Exam: General appearance: PRESENT: mild distress - from pain Head exam: PRESENT: atraumatic, normocephalic Mouth exam: PRESENT: moist Respiratory exam: PRESENT: clear to auscultation ethan Cardiovascular exam: PRESENT: RRR. ABSENT: diastolic murmur, rubs, systolic murmur Vascular exam: PRESENT: normal capillary refill. ABSENT: pallor GI/Abdominal exam: PRESENT: normal bowel sounds, soft. ABSENT: distended, guarding, mass, organolmegaly, rebound, tenderness Extremities exam: PRESENT: tenderness - multiple joint sites. ABSENT: pedal edema Musculoskeletal exam: PRESENT: tenderness - with motion and palpation Neurological exam: PRESENT: alert, awake, oriented to person, oriented to place , oriented to time, oriented to situation, CN II-XII grossly intact. ABSENT: motor sensory deficit Psychiatric exam: PRESENT: appropriate affect, normal mood. ABSENT: homicidal ideation, suicidal ideation Skin exam: PRESENT: dry, intact, warm. ABSENT: cyanosis, rash Results Laboratory Results: 09/22/17 05:45 09/22/17 05:45 Impressions: Chest X-Ray 09/21/17 00:02 IMPRESSION: No acute cardiopulmonary findings. 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 Is this a current diagnosis for this admission?: Yes (4) Asthma Qualifiers: Asthma severity: mild Asthma complication type: uncomplicated Is this a current diagnosis for this admission?: Yes - Time Time Spent with patient: 25-34 minutes Medications reviewed and adjusted accordingly: Yes Anticipated discharge: Home Within: Other - Inpatient Certification Based on my medical assessment, after consideration of the patient's comorbidities, presenting symptoms, or acuity I expect that the services needed warrant INPATIENT care.: Yes I certify that my determination is in accordance with my understanding of Medicare's requirements for reasonable and necessary INPATIENT services [42 CFR 412.3e].: Yes Medical Necessity: Need Close Monitoring Due to Risk of Patient Decompensation, Need For IV Fluids, Need For Continuous Telemetry Monitoring, Need for Pain Control, Risk of Complication if Not Cared For in Hospital Post Hospital Care: D/C Finishing Area Supervisor 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 Obtain CBC with diff and CMP in AM.
[2017-09-23] MEDS: HYDROXYUREA 500 MG CAPSULE PO SCH (10:37)
[2017-09-23] MEDS: FOLIC ACID 1 MG TABLET PO SCH (10:37)
[2017-09-23] MEDS: ENOXAPARIN SODIUM INJ 40 MG/0.4 ML DISP.SYRIN SUBCUT SCH (10:41)
[2017-09-24] MEDS: HYDROMORPHONE HCL INJ/PF 2 MG/ML AMPULE IV PRN ×10 (00:15→23:29)
[2017-09-24] MEDS: LANSOPRAZOLE 30 MG TAB.RAP.DR PO SCH (05:54)
[2017-09-24 07:20] LABS: HEMATOCRIT 24.1 % (37.9-51.0); HEMOGLOBIN 8.6 g/dL (13.5-17.0); MEAN CORPUSCULAR HEMOGLOBIN 34.6 pg (27.0-33.4); MEAN CORPUSCULAR HGB CONC 35.9 g/dL (32.0-36.0); MEAN CORPUSCULAR VOLUME 97 fl (80-97); PLATELET COUNT 185 10^3/uL (150-450); RED BLOOD COUNT 2.49 10^6/uL (4.35-5.55); RED CELL DISTRIBUTION WIDTH 28.3 % (11.5-14.0); WHITE BLOOD COUNT 6.6 10^3/uL (4.0-10.5)
[2017-09-24 07:30] LABS: ALANINE AMINOTRANSFERASE 24 U/L (21-72); ALBUMIN 4.1 g/dL (3.5-5.0); ALKALINE PHOSPHATASE 94 U/L (38-126); ANION GAP 8 (5-19); ASPARTATE AMINO TRANSFERASE 68 U/L (17-59); BILIRUBIN,DIRECT 0.4 mg/dL (0.0-0.4); BILIRUBIN,TOTAL 3.4 mg/dL (0.2-1.3); BLOOD UREA NITROGEN 7 mg/dL (7-20); CARBON DIOXIDE 30 mmol/L (22-30); CHLORIDE 103 mmol/L (98-107); GLUCOSE 124 mg/dL (75-110); POTASSIUM 4.6 mmol/L (3.6-5.0); SODIUM 141.4 mmol/L (137-145); TOTAL PROTEIN 7.1 g/dL (6.3-8.2)
[2017-09-24 08:00] LABS: ABSOLUTE LYMPHOCYTES# (MANUAL) 2.2 10^3/uL (0.5-4.7); ABSOLUTE MONOCYTES # (MANUAL) 0.5 10^3/uL (0.1-1.4); ABSOLUTE NEUTROPHILS# (MANUAL) 3.6 10^3/uL (1.7-8.2); BASOPHILS % (MANUAL) 0 % (0-2); EOSINOPHILS % (MANUAL) 3 % (0-6); LYMPHOCYTES % (MANUAL) 34 % (13-45); MONOCYTES % (MANUAL) 8 % (3-13); NUCLEATED RED BLOOD CELLS 4 /100 WBC (0); SEGMENTED NEUTROPHILS % (MAN) 55 % (42-78); TOTAL CELLS COUNTED 100
[2017-09-24 08:02] LABS: ANISOCYTOSIS 4+; OVALOCYTES 1+; PLATELET COMMENT ADEQUATE; POIKILOCYTOSIS 3+; POLYCHROMASIA 2+; SCHISTOCYTES SLIGHT; SICKLE RED CELLS 2+
[2017-09-24] MEDS: ENOXAPARIN SODIUM INJ 40 MG/0.4 ML DISP.SYRIN SUBCUT SCH (10:26)
[2017-09-24] MEDS: HYDROXYUREA 500 MG CAPSULE PO SCH (10:30)
[2017-09-24] MEDS: FOLIC ACID 1 MG TABLET PO SCH (10:30)
--- NOTE | 2017-09-24 19:44 | PDOC PROGRESS REPORT ---
Subjective Progress Note for:: 09/24/17 Subjective:: Patient reported some improvement in his pain level and mainly to left knee joint. There is associated nausea but no vomiting. No significant fever, chills , or difficulty with breathing. Reason For Visit: HOMOGENEOUS SS SICKLE CELL DISEASE WITH ACUTE PAIN Physical Exam Vital Signs: Temp Pulse Resp BP Pulse Ox 98.5 F 90 14 116/63 100 09/24/17 16:00 09/24/17 16:00 09/24/17 16:00 09/24/17 16:00 09/24/17 16:00 Intake & Output 09/23/17 09/24/17 09/25/17 06:59 06:59 06:59 Intake Total 4313 4808 3070 Balance 4313 4808 3070 Physical Exam: General appearance: PRESENT: mild distress - from pain Head exam: PRESENT: atraumatic, normocephalic Mouth exam: PRESENT: moist Respiratory exam: PRESENT: clear to auscultation ethan Cardiovascular exam: PRESENT: RRR. ABSENT: diastolic murmur, rubs, systolic murmur Vascular exam: PRESENT: normal capillary refill. ABSENT: pallor GI/Abdominal exam: PRESENT: normal bowel sounds, soft. ABSENT: distended, guarding, mass, organomegaly, rebound, tenderness Extremities exam: PRESENT: tenderness - multiple joint sites. ABSENT: pedal edema Musculoskeletal exam: PRESENT: tenderness - with motion and palpation Neurological exam: PRESENT: alert, awake, oriented to person, oriented to place , oriented to time, oriented to situation, CN II-XII grossly intact. ABSENT: motor sensory deficit Psychiatric exam: PRESENT: appropriate affect, normal mood. ABSENT: homicidal ideation, suicidal ideation Skin exam: PRESENT: dry, intact, warm. ABSENT: cyanosis, rash Results Laboratory Results: 09/24/17 06:10 09/24/17 06:10 09/24/17 09/24/17 06:10 06:10 WBC 6.6 RBC 2.49 L Hgb 8.6 L Hct 24.1 L MCV 97 MCH 34.6 H MCHC 35.9 RDW 28.3 H Plt Count 185 Seg Neutrophils % Not Reportable Lymphocytes % Not Reportable Monocytes % Not Reportable Eosinophils % Not Reportable Basophils % Not Reportable Absolute Neutrophils Not Reportable Absolute Lymphocytes Not Reportable Absolute Monocytes Not Reportable Absolute Eosinophils Not Reportable Absolute Basophils Not Reportable Sodium 141.4 Potassium 4.6 Chloride 103 Carbon Dioxide 30 Anion Gap 8 BUN 7 Creatinine 0.49 L Est GFR ( Amer) > 60 Est GFR (Non-Af Amer) > 60 Glucose 124 H Calcium 9.0 Total Bilirubin 3.4 H AST 68 H ALT 24 Alkaline Phosphatase 94 Total Protein 7.1 Albumin 4.1 Impressions: Chest X-Ray 09/21/17 00:02 IMPRESSION: No acute cardiopulmonary findings. 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 Is this a current diagnosis for this admission?: Yes (4) Asthma Qualifiers: Asthma severity: mild Asthma complication type: uncomplicated Is this a current diagnosis for this admission?: Yes - Time Time Spent with patient: 25-34 minutes Medications reviewed and adjusted accordingly: Yes Anticipated discharge: Home Within: Other - Inpatient Certification Based on my medical assessment, after consideration of the patient's comorbidities, presenting symptoms, or acuity I expect that the services needed warrant INPATIENT care.: Yes I certify that my determination is in accordance with my understanding of Medicare's requirements for reasonable and necessary INPATIENT services [42 CFR 412.3e].: Yes Medical Necessity: Need Close Monitoring Due to Risk of Patient Decompensation, Need For IV Fluids, Need for Pain Control, Risk of Complication if Not Cared For in Hospital Post Hospital Care: D/C Credit Consultant 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
[2017-09-25] MEDS: HYDROMORPHONE HCL INJ/PF 2 MG/ML AMPULE IV PRN ×9 (02:03→22:26)
[2017-09-25] MEDS: LANSOPRAZOLE 30 MG TAB.RAP.DR PO SCH (05:14)
--- NOTE | 2017-09-25 07:59 | PDOC PROGRESS REPORT ---
Subjective Progress Note for:: 09/25/17 Subjective:: Patient continue to express persistent pain in left leg. No fever or chills. No nausea, vomiting, or abdominal pain. No chest pain or difficulty with breathing. Reason For Visit: HOMOGENEOUS SS SICKLE CELL DISEASE WITH ACUTE PAIN Physical Exam Vital Signs: Temp Pulse Resp BP Pulse Ox 98.5 F 114 H 16 134/85 H 92 09/25/17 00:00 09/25/17 02:00 09/25/17 00:00 09/25/17 00:00 09/25/17 00:00 Intake & Output 09/24/17 09/25/17 09/26/17 06:59 06:59 06:59 Intake Total 4808 5215 Balance 4808 5215 Physical Exam: General appearance: PRESENT: mild distress - from pain Head exam: PRESENT: atraumatic, normocephalic Mouth exam: PRESENT: moist Respiratory exam: PRESENT: clear to auscultation ethan Cardiovascular exam: PRESENT: RRR. ABSENT: diastolic murmur, rubs, systolic murmur Vascular exam: PRESENT: normal capillary refill. ABSENT: pallor GI/Abdominal exam: PRESENT: normal bowel sounds, soft. ABSENT: distended, guarding, mass, organomegaly, rebound, tenderness Extremities exam: PRESENT: tenderness - multiple joint sites. ABSENT: pedal edema Musculoskeletal exam: PRESENT: tenderness - with motion and palpation Neurological exam: PRESENT: alert, awake, oriented to person, oriented to place , oriented to time, oriented to situation, CN II-XII grossly intact. ABSENT: motor sensory deficit Psychiatric exam: PRESENT: appropriate affect, normal mood. ABSENT: homicidal ideation, suicidal ideation Skin exam: PRESENT: dry, intact, warm. ABSENT: cyanosis, rash Results Laboratory Results: 09/24/17 06:10 09/24/17 06:10 09/24/17 06:10 WBC 6.6 RBC 2.49 L Hgb 8.6 L Hct 24.1 L MCV 97 MCH 34.6 H MCHC 35.9 RDW 28.3 H Plt Count 185 Seg Neutrophils % Not Reportable Lymphocytes % Not Reportable Monocytes % Not Reportable Eosinophils % Not Reportable Basophils % Not Reportable Absolute Neutrophils Not Reportable Absolute Lymphocytes Not Reportable Absolute Monocytes Not Reportable Absolute Eosinophils Not Reportable Absolute Basophils Not Reportable Impressions: Chest X-Ray 09/21/17 00:02 IMPRESSION: No acute cardiopulmonary findings. 2010 [employer]- All Rights Reserved Assessment & Plan - Diagnosis (1) Sickle cell disease with crisis Is this a current diagnosis for this admission?: Yes (2) Sickle cell anemia Qualifiers: Sickle-cell associated disorders: with unspecified crisis Qualified Code(s) : D57.00 - Hb-SS disease with crisis, unspecified; D57.0 - Hb-SS disease with crisis Is this a current diagnosis for this admission?: Yes (3) 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 Is this a current diagnosis for this admission?: Yes (4) Asthma Qualifiers: Asthma severity: mild Asthma complication type: uncomplicated Is this a current diagnosis for this admission?: Yes - Time Time Spent with patient: 25-34 minutes Medications reviewed and adjusted accordingly: Yes Anticipated discharge: Home Within: Other - Inpatient Certification Based on my medical assessment, after consideration of the patient's comorbidities, presenting symptoms, or acuity I expect that the services needed warrant INPATIENT care.: Yes I certify that my determination is in accordance with my understanding of Medicare's requirements for reasonable and necessary INPATIENT services [42 CFR 412.3e].: Yes Medical Necessity: Need Close Monitoring Due to Risk of Patient Decompensation, Need For IV Fluids, Need For Continuous Telemetry Monitoring, Need for Nebulizer Therapy and Monitoring of Response, Need for Pain Control, Risk of Complication if Not Cared For in Hospital Post 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 Maintain on all current medication management. Encourage ambulation on the medical floor.
[2017-09-25] MEDS: ENOXAPARIN SODIUM INJ 40 MG/0.4 ML DISP.SYRIN SUBCUT SCH (09:39)
[2017-09-25] MEDS: FOLIC ACID 1 MG TABLET PO SCH (09:44)
[2017-09-25] MEDS: HYDROXYUREA 500 MG CAPSULE PO SCH (09:44)
[2017-09-25] MEDS ORDERED: FENTANYL 75 MCG/HR PATCH.TD72 TD SCH (10:00)
[2017-09-26] MEDS: HYDROMORPHONE HCL INJ/PF 2 MG/ML AMPULE IV PRN ×10 (00:03→23:09)
[2017-09-26] MEDS: LANSOPRAZOLE 30 MG TAB.RAP.DR PO SCH (06:00)
[2017-09-26] MEDS: ENOXAPARIN SODIUM INJ 40 MG/0.4 ML DISP.SYRIN SUBCUT SCH (09:20)
[2017-09-26] MEDS: HYDROXYUREA 500 MG CAPSULE PO SCH (09:20)
[2017-09-26] MEDS: FOLIC ACID 1 MG TABLET PO SCH (09:20)
--- NOTE | 2017-09-26 18:26 | PDOC PROGRESS REPORT ---
Subjective Progress Note for:: 09/26/17 Subjective:: Patient reported some improvement in his leg and knee pain. Remain on current pain management regimen. No chest pain or difficulty with breathing. No fever or chills. No nausea, vomiting, or abdominal pain. Reason For Visit: HOMOGENEOUS SS SICKLE CELL DISEASE WITH ACUTE PAIN Physical Exam Vital Signs: Temp Pulse Resp BP Pulse Ox 97.9 F 81 16 120/73 92 09/26/17 16:24 09/26/17 16:24 09/26/17 16:24 09/26/17 16:24 09/26/17 16:24 Intake & Output 09/25/17 09/26/17 09/27/17 06:59 06:59 06:59 Intake Total 5215 4922 1820 Balance 5215 4922 1820 Physical Exam: General appearance: PRESENT: mild distress - from pain Head exam: PRESENT: atraumatic, normocephalic Mouth exam: PRESENT: moist Respiratory exam: PRESENT: clear to auscultation ethan Cardiovascular exam: PRESENT: RRR. ABSENT: diastolic murmur, rubs, systolic murmur Vascular exam: PRESENT: normal capillary refill. ABSENT: pallor GI/Abdominal exam: PRESENT: normal bowel sounds, soft. ABSENT: distended, guarding, mass, organomegaly, rebound, tenderness Extremities exam: PRESENT: tenderness - multiple joint sites. ABSENT: pedal edema Musculoskeletal exam: PRESENT: tenderness - with motion and palpation Neurological exam: PRESENT: alert, awake, oriented to person, oriented to place , oriented to time, oriented to situation, CN II-XII grossly intact. ABSENT: motor sensory deficit Psychiatric exam: PRESENT: appropriate affect, normal mood. ABSENT: homicidal ideation, suicidal ideation Skin exam: PRESENT: dry, intact, warm. ABSENT: cyanosis, rash Results Laboratory Results: 09/24/17 06:10 09/24/17 06:10 Impressions: Chest X-Ray 09/21/17 00:02 IMPRESSION: No acute cardiopulmonary findings. 2010 [employer]- All Rights Reserved Assessment & Plan - Diagnosis (1) Sickle cell disease with crisis Is this a current diagnosis for this admission?: Yes (2) Sickle cell anemia Qualifiers: Sickle-cell associated disorders: with unspecified crisis Qualified Code(s) : D57.00 - Hb-SS disease with crisis, unspecified; D57.0 - Hb-SS disease with crisis Is this a current diagnosis for this admission?: Yes (3) 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 Is this a current diagnosis for this admission?: Yes (4) Asthma Qualifiers: Asthma severity: mild Asthma complication type: uncomplicated Is this a current diagnosis for this admission?: Yes - Time Time Spent with patient: 25-34 minutes Medications reviewed and adjusted accordingly: Yes Anticipated discharge: Home Within: Other - Inpatient Certification Based on my medical assessment, after consideration of the patient's comorbidities, presenting symptoms, or acuity I expect that the services needed warrant INPATIENT care.: Yes I certify that my determination is in accordance with my understanding of Medicare's requirements for reasonable and necessary INPATIENT services [42 CFR 412.3e].: Yes Medical Necessity: Need Close Monitoring Due to Risk of Patient Decompensation, Need For IV Fluids, Need For Continuous Telemetry Monitoring, Need for Nebulizer Therapy and Monitoring of Response, Need for Pain Control, Risk of Complication if Not Cared For in Hospital Post 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 Possible discharge home in next 24 hours. I did discuss tis plan with patient and he is agreeable.
[2017-09-27] MEDS: HYDROMORPHONE HCL INJ/PF 2 MG/ML AMPULE IV PRN ×7 (01:40→15:53)
[2017-09-27] MEDS ORDERED: LANSOPRAZOLE 30 MG TAB.RAP.DR PO SCH (06:00)
[2017-09-27] MEDS: NORMAL SALINE 1000 ML 1,000 ML IV PRN (09:43)
[2017-09-27] MEDS: HYDROXYUREA 500 MG CAPSULE PO SCH (09:44)
[2017-09-27] MEDS: FOLIC ACID 1 MG TABLET PO SCH (09:44)
[2017-09-27] MEDS: ENOXAPARIN SODIUM INJ 40 MG/0.4 ML DISP.SYRIN SUBCUT SCH (09:45)
[2017-09-27 14:02] LABS: HEMATOCRIT 23.3 % (37.9-51.0); HEMOGLOBIN 8.5 g/dL (13.5-17.0); MEAN CORPUSCULAR HEMOGLOBIN 35.2 pg (27.0-33.4); MEAN CORPUSCULAR HGB CONC 36.3 g/dL (32.0-36.0); MEAN CORPUSCULAR VOLUME 97 fl (80-97); PLATELET COUNT 241 10^3/uL (150-450); RED BLOOD COUNT 2.41 10^6/uL (4.35-5.55); RED CELL DISTRIBUTION WIDTH 29.6 % (11.5-14.0); WHITE BLOOD COUNT 6.2 10^3/uL (4.0-10.5)
[2017-09-27 14:13] LABS: ALANINE AMINOTRANSFERASE 25 U/L (21-72); ALBUMIN 4.1 g/dL (3.5-5.0); ALKALINE PHOSPHATASE 82 U/L (38-126); ANION GAP 8 (5-19); ASPARTATE AMINO TRANSFERASE 52 U/L (17-59); BILIRUBIN,TOTAL 2.1 mg/dL (0.2-1.3); BLOOD UREA NITROGEN 8 mg/dL (7-20); CALCIUM 9.5 mg/dL (8.4-10.2); CARBON DIOXIDE 29 mmol/L (22-30); CHLORIDE 103 mmol/L (98-107); GLUCOSE 107 mg/dL (75-110); POTASSIUM 4.5 mmol/L (3.6-5.0); SODIUM 140.3 mmol/L (137-145)
--- NOTE | 2017-09-27 15:21 | PDOC DISCHARGE SUMMARY ---
General - Admit/Disc Date/PCP Admission Date/Primary Care Provider: 09/21/17 03:31 ANDREW WILLIS Discharge Date: 09/27/17 - Discharge Diagnosis (1) Sickle cell disease with crisis Is this a current diagnosis for this admission?: Yes (2) Sickle cell anemia Is this a current diagnosis for this admission?: Yes (3) 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 Is this a current diagnosis for this admission?: Yes (4) Asthma Is this a current diagnosis for this admission?: Yes - Additional Information Resuscitation Status: Full Code Discharge Diet: Regular Discharge Activity: Activity As Tolerated Home Medications: Folic Acid [Folvite 1 mg Tablet] 1 mg PO DAILY 09/21/17 Hydromorphone HCl [Dilaudid 2 mg Tablet] 2 mg PO Q4HP PRN 09/21/17 Hydroxyurea [Hydrea 500 mg Capsule] 2,000 mg PO DAILY 09/21/17 Fentanyl [Duragesic 100 Mcg/Hr Transdermal Patch] 75 mcg TP Q72H 09/22/17 History of Present Illness History of Present Illness: MARINO POZO is a 22 year old male patient known to my practice with frequent hospitalization due to recurrent acute episodes of SS sickle cell disease pain and hemolytic crises. Patient was evaluated and discharge from the ED about 2 days prior to his current presentation with complaint about worsening chest pain , headache, and multiple joints aches and pain, particularly his knee joints. despite administration of IV Dilaudid and hydration his symptoms persist. He reported new onset of coughing spells and sore throat since last ED visit. He denied any dizziness, shortness of breath, fever, or chills. He admitted to nausea but no vomiting. No diarrhea. No genitourinary symptoms to suggest ongoing infection. He reported compliance with his home pain management medication but no relief from his pain. Hospital Course Hospital Course: Patient was managed with IV Fluid support with IV Dilaudid and eventually addition of his Fentanyl patch. His hemoglobin remain fairly satisfactory. His bilirubin show downward trend. His pain is satisfactorily controlled. Patient is agreeable to discharge home today. he will follow up in office as instructed upon discharge. He was not given any new pain medication upon discharge. He was advise to discontinue NSAID usage Physical Exam Vital Signs: Temp Pulse Resp BP Pulse Ox 98.7 F 88 16 117/67 93 09/27/17 11:32 09/27/17 11:32 09/27/17 11:32 09/27/17 11:32 09/27/17 11:32 Intake & Output 09/26/17 09/27/17 09/28/17 06:59 06:59 06:59 Intake Total 4922 4040 Output Total 900 Balance 4922 3140 Physical Exam: General appearance: PRESENT: mild distress - from pain Head exam: PRESENT: atraumatic, normocephalic Mouth exam: PRESENT: moist Respiratory exam: PRESENT: clear to auscultation ethan Cardiovascular exam: PRESENT: RRR. ABSENT: diastolic murmur, rubs, systolic murmur Vascular exam: PRESENT: normal capillary refill. ABSENT: pallor GI/Abdominal exam: PRESENT: normal bowel sounds, soft. ABSENT: distended, guarding, mass, organomegaly, rebound, tenderness Extremities exam: PRESENT: tenderness - multiple joint sites. ABSENT: pedal edema Musculoskeletal exam: PRESENT: tenderness - with motion and palpation Neurological exam: PRESENT: alert, awake, oriented to person, oriented to place , oriented to time, oriented to situation, CN II-XII grossly intact. ABSENT: motor sensory deficit Psychiatric exam: PRESENT: appropriate affect, normal mood. ABSENT: homicidal ideation, suicidal ideation Skin exam: PRESENT: dry, intact, warm. ABSENT: cyanosis, rash Results Laboratory Results: 09/27/17 13:35 09/27/17 13:32 09/27/17 09/27/17 13:32 13:35 WBC 6.2 RBC 2.41 L Hgb 8.5 L Hct 23.3 L MCV 97 MCH 35.2 H MCHC 36.3 H RDW 29.6 H Plt Count 241 Sodium 140.3 Potassium 4.5 Chloride 103 Carbon Dioxide 29 Anion Gap 8 BUN 8 Creatinine 0.53 Est GFR ( Amer) > 60 Est GFR (Non-Af Amer) > 60 Glucose 107 Calcium 9.5 Total Bilirubin 2.1 H AST 52 ALT 25 Alkaline Phosphatase 82 Total Protein 7.0 Albumin 4.1 Impressions: Chest X-Ray 09/21/17 00:02 IMPRESSION: No acute cardiopulmonary findings. 2010 [employer]- All Rights Reserved Qualifiers PATEINT BEING DISCHARGED WITH ANY OF THE FOLLOWING DIAGNOSIS?: No Plan Discharge Plan: D/C home today with follow up in office as instructed upon discharge.
[2017-09-27 16:19] VITALS: BP 135/78
== END 2017-09-27 16:59 | disposition home or self-care (01) | DRG 812 ==
LOC: ER 23:00 → EH 09-21 03:31 → 5 09-21 13:50
PROVIDERS: ADMIT Internal Medicine Geriatric Medicine; ATTEND Internal Medicine Geriatric Medicine
DX: D57.00 Hb-SS disease with crisis, unspecified (principal); J45.909 Unspecified asthma, uncomplicated; R00.0 Tachycardia, unspecified; Z90.49 Acquired absence of other specified parts of digestive tract; Z91.018 Allergy to other foods; Z82.61 Family history of arthritis; Z83.3 Family history of diabetes mellitus; Z82.49 Family history of ischemic heart disease and other diseases of the circulatory system; Z82.5 Family history of asthma and other chronic lower respiratory diseases; Z83.2 Family history of diseases of the blood and blood-forming organs and certain disorders involving the immune mechanism
CPT/HCPCS: 36415; 36591; 71045; 80048; 80053; 85025; 85027; 85045; 85610; 85730; 93005; 93010; 96361; 96374; 96375; 96376; 99285; A9270-GY; J1170; J1200; J2405; J7030

== ENCOUNTER 2017-10-20 19:13 | Emergency (ER) | payer MEDICAID ==
[2017-10-20] MEDS ORDERED: NORMAL SALINE 1000 ML 1,000 ML IV ONE (20:31)
[2017-10-20] MEDS ORDERED: HYDROMORPHONE HCL INJ/PF 2 MG/ML AMPULE IV ONE ×4 (20:31→23:00)
--- NOTE | 2017-10-20 20:32 | ER Document Report ---
ED Medical Screen (RME) - General Chief Complaint: Sickle Cell Pain, back pain Stated Complaint: LOWER BACK PAIN Time Seen by Provider: 10/20/17 20:30 Mode of Arrival: Ambulatory Information source: Patient Notes: Patient presents complaining of 2 day history of low back pain. Patient states that he developed a fever of 101 today. Patient took Motrin at home to relieve his fever. Patient denies any urinary symptoms. Patient does have a history of sickle cell disease and is concerned about a flareup. hx: Sickle cell disease I have greeted and performed a rapid initial assessment of this patient. A comprehensive ED assessment and evaluation of the patient, analysis of test results and completion of the medical decision making process will be conducted by additional ED providers. TRAVEL OUTSIDE OF THE [place] IN LAST 30 DAYS: No - Related Data Allergies/Adverse Reactions: Coconut * [Coconut] Allergy (Mild, Verified 09/20/17 23:14) transpore tape Allergy (Mild, Uncoded 09/20/17 23:14) Hives Past Medical History - Social History Chew tobacco use (# tins/day): No Frequency of alcohol use: Rare Drug Abuse: None Family history: None Pulmonary Medical History: Reports: Hx Asthma, Hx Pneumonia Renal/ Medical History: Denies: Hx Peritoneal Dialysis Psychiatric Medical History: Denies: Hx Depression Past Surgical History: Reports: Hx Abdominal Surgery - Gallstones removal, Hx Cholecystectomy, Hx Orthopedic Surgery - Fluid drained from right foot, Hx Vascular Surgery - Port placement - Immunizations Immunizations up to date: Yes Hx Diphtheria, Pertussis, Tetanus Vaccination: Yes History of Influenza Vaccine for 06/2017 - 10/2017 Season: Yes Influenza Administration Date for 06/2017 - 10/2017 Season: 06/02/17 Physical Exam - Vital signs Vitals: Temp Pulse Resp BP Pulse Ox 99.0 F 125 H 28 H 129/80 H 96 10/20/17 19:17 10/20/17 19:17 10/20/17 19:17 10/20/17 19:17 10/20/17 19:17 - Cardiovascular Rhythm: Tachycardia Heart sounds: S1 appreciated, S2 appreciated - Back Back: CVA tenderness Course - Vital Signs Vital signs: Temp Pulse Resp BP Pulse Ox 99.0 F 125 H 28 H 129/80 H 96 10/20/17 19:17 10/20/17 19:17 10/20/17 19:17 10/20/17 19:17 10/20/17 19:17
[2017-10-20] MEDS ORDERED: DIPHENHYDRAMINE HCL 50 MG/ML VIAL IV ONE ×2 (21:34→23:00)
[2017-10-20] MEDS ORDERED: ONDANSETRON HCL INJ/PF 4 MG/2 ML SDV IV ONE (21:34)
--- NOTE | 2017-10-20 21:36 | ER Document Report ---
ED General - General Chief Complaint: Sickle Cell Pain, back pain Stated Complaint: LOWER BACK PAIN Time Seen by Provider: 10/20/17 20:30 Mode of Arrival: Ambulatory Information source: Patient Notes: This is a 22-year-old man with a history of sickle cell disease who presents to the emergency room back pain. Patient does report having fever of 101 this morning. Patient sickle cell pain is usually in the back and legs. He states that the pain is just in his back today. He denies any shortness of breath or chest pain. He denies any abdominal pain. He does have some nausea but there is been no vomiting. He denies any dysuria. He denies any rash TRAVEL OUTSIDE OF THE [place] IN LAST 30 DAYS: No - HPI Onset: Yesterday Onset/Duration: Gradual Quality of pain: Dull Severity: Moderate Pain Level: 2 Associated symptoms: Fever. denies: Chest pain, Chills, Shortness of breath Exacerbated by: Movement Relieved by: Denies Similar symptoms previously: Yes Recently seen / treated by doctor: Yes - Related Data Allergies/Adverse Reactions: Coconut * [Coconut] Allergy (Mild, Verified 09/20/17 23:14) transpore tape Allergy (Mild, Uncoded 09/20/17 23:14) Hives Past Medical History - General Information source: Patient - Social History Smoking Status: Never Smoker Cigarette use (# per day): No Chew tobacco use (# tins/day): No Frequency of alcohol use: Rare Drug Abuse: None Lives with: Family Family History: Reviewed & Not Pertinent, Arthritis, DM, Hypertension, Other - Sickle cell trait both parents and asthma Patient has suicidal ideation: No Patient has homicidal ideation: No Pulmonary Medical History: Reports: Hx Asthma, Hx Pneumonia Renal/ Medical History: Denies: Hx Peritoneal Dialysis Psychiatric Medical History: Denies: Hx Depression Past Surgical History: Reports: Hx Abdominal Surgery - Gallstones removal, Hx Cholecystectomy, Hx Orthopedic Surgery - Fluid drained from right foot, Hx Vascular Surgery - Port placement - Immunizations Immunizations up to date: Yes Hx Diphtheria, Pertussis, Tetanus Vaccination: Yes Hx Pneumococcal Vaccination: 01/15/13 Review of Systems - Review of Systems Notes: Review of systems: Constitutional: Positive for fever EENT: Denies ear pain, sinus tenderness, throat pain, throat swelling. Cardiovascular: Denies chest pain, palpitations, dyspnea or edema. Respiratory: Denies wheezing, cough, hemoptysis. Abdomen: Denies abdominal pain, nausea, vomiting, diarrhea. Denies BRBPR or melena. Genitourinary: Denies dysuria, pyuria, hematuria, flank pain. Musculoskeletal: See H&P Neurologic: Denies headache, photophobia, neck stiffness, weakness. Denies loss of bowel or bladder function. Denies saddle anesthesia. Skin: Denies rash, lesions. Physical Exam - Vital signs Vitals: Temp Pulse Resp BP Pulse Ox 99.0 F 125 H 28 H 129/80 H 96 10/20/17 19:17 10/20/17 19:17 10/20/17 19:17 10/20/17 19:17 10/20/17 19:17 Notes: Physical exam: GENERAL: 42-year-old man, alert and oriented 3, no acute distress HEAD: Atraumatic, normocephalic. EYES: Pupils equal round and reactive to light, extraocular movements intact, sclera anicteric, conjunctiva are normal. ENT: TMs normal, nares patent, oropharynx clear without exudates. Moist mucous membranes. NECK: Normal range of motion, supple without obvious mass or JVD. LUNGS: Breath sounds clear to auscultation bilaterally and equal. No wheezes rales or rhonchi. HEART: Regular rate and rhythm without murmurs, rubs or gallops. ABDOMEN: Soft, normoactive bowel sounds. No tenderness to palpation. No guarding, no rebound. No masses appreciated. EXTREMITIES: Right upper extremity port. Normal range of motion, no pitting or edema. No clubbing or cyanosis. NEUROLOGICAL: Cranial nerves II through XII grossly intact. Normal speech, moving all extremities. PSYCH: Normal mood, normal affect. SKIN: Warm, Dry, normal turgor, no rashes or lesions noted. Course - Re-evaluation Re-evalutation: 10/20/17 23:01 On reassessment, the patient looks very good. The chest x-ray is clear and the urine is clear. His labs are generally looking good. Reticulocyte count is 10. I have given the patient the option of coming into the hospital for further pain or following up in the office. Patient states he would rather try going home and will follow up with Dr. Osunkoya in the morning. - Vital Signs Vital signs: Temp Pulse Resp BP Pulse Ox 99.0 F 125 H 28 H 129/80 H 96 10/20/17 19:17 10/20/17 19:17 10/20/17 19:17 10/20/17 19:17 10/20/17 19:17 - Laboratory Result Diagrams: 10/20/17 21:30 10/20/17 21:30 Laboratory results interpreted by me: 10/20/17 10/20/17 10/20/17 20:56 21:30 21:30 RBC 3.01 L Hgb 10.7 L Hct 31.3 L MCH 35.6 H RDW 28.9 H Retic Count (auto) 10.67 H Absolute Retic 0.321 H Sodium 146.1 H Chloride 110 H Total Bilirubin 2.8 H Direct Bilirubin 0.7 H Total Protein 8.9 H Urine Protein 100 H Urine Urobilinogen 4.0 H - Diagnostic Test Radiology reviewed: Image reviewed, Reports reviewed - Chest x-ray shows no infiltrates or effusions Discharge - Discharge Clinical Impression: Sickle cell disease vaso-occlusive crisi Condition: Stable Disposition: HOME, SELF-CARE Instructions: Sickle Cell Crisis ([facility]) Additional Instructions: Recommendations: Rest, drink plenty of fluids, continue medicines as prescribed. Follow-up with Dr. Willis tomorrow. He will be able to see today's lab tests and x-ray tests and his computer. Return to the emergency room for worsening pain or any concerns or getting worse. Referrals: ANDREW WILLIS MD [Primary Care Provider] - Follow up tomorrow
[2017-10-20 21:40] LABS: BILIRUBIN,URINE NEGATIVE (NEGATIVE); GLUCOSE, URINE NEGATIVE (NEGATIVE); KETONES,URINE NEGATIVE (NEGATIVE); LEUKOCYTE ESTERASE,URINE NEGATIVE (NEGATIVE); NITRITE,URINE NEGATIVE (NEGATIVE); PROTEIN,URINE 100 mg/dL (NEGATIVE); URINE SPECIFIC GRAVITY 1.015
[2017-10-20 21:42] LABS: APPEARANCE,URINE CLOUDY; COLOR,URINE DARK YELLOW
[2017-10-20 21:57] LABS: ABSOLUTE RETICS # 0.321 10^6/uL (0.028-0.122); HEMATOCRIT 31.3 % (37.9-51.0); HEMOGLOBIN 10.7 g/dL (13.5-17.0); MEAN CORPUSCULAR HEMOGLOBIN 35.6 pg (27.0-33.4); MEAN CORPUSCULAR HGB CONC 34.1 g/dL (32.0-36.0); PLATELET COUNT 266 10^3/uL (150-450); RED BLOOD COUNT 3.01 10^6/uL (4.35-5.55); RED CELL DISTRIBUTION WIDTH 28.9 % (11.5-14.0); RETICULOCYTE COUNT (AUTO) 10.67 % (0.66-2.85); WHITE BLOOD COUNT 7.8 10^3/uL (4.0-10.5)
[2017-10-20 22:11] LABS: ALANINE AMINOTRANSFERASE 21 U/L (21-72); ALBUMIN 4.8 g/dL (3.5-5.0); ALKALINE PHOSPHATASE 102 U/L (38-126); ANION GAP 12 (5-19); ASPARTATE AMINO TRANSFERASE 48 U/L (17-59); BILIRUBIN,DIRECT 0.7 mg/dL (0.0-0.4); BILIRUBIN,TOTAL 2.8 mg/dL (0.2-1.3); BLOOD UREA NITROGEN 11 mg/dL (7-20); CALCIUM 9.9 mg/dL (8.4-10.2); CARBON DIOXIDE 24 mmol/L (22-30); CHLORIDE 110 mmol/L (98-107); GLUCOSE 87 mg/dL (75-110); POTASSIUM 3.8 mmol/L (3.6-5.0); SODIUM 146.1 mmol/L (137-145); TOTAL PROTEIN 8.9 g/dL (6.3-8.2)
--- NOTE | 2017-10-20 22:26 | RADIOLOGY REPORT (SQ) ---
EXAM DESCRIPTION: CHEST SINGLE VIEW COMPLETED DATE/TIME: 10/20/2017 9:57 pm REASON FOR STUDY: fever, back pain COMPARISON: 09/21/2017 NUMBER OF VIEWS: One view. TECHNIQUE: Single frontal radiographic view of the chest acquired. LIMITATIONS: None. FINDINGS: LUNGS AND PLEURA: No opacities, masses or pneumothorax. No pleural effusion. MEDIASTINUM AND HILAR STRUCTURES: No masses. Contour normal. HEART AND VASCULAR STRUCTURES: Heart normal in size. Normal vasculature. BONES: No acute findings. Mild sclerosis in the humeral heads consistent with the history of sickle cell disease. HARDWARE: Unchanged right PICC line. OTHER: No other significant finding. IMPRESSION: NO SIGNIFICANT RADIOGRAPHIC FINDING IN THE CHEST. TECHNICAL DOCUMENTATION: JOB ID: [id number] [employer]- All Rights Reserved
[2017-10-20 22:30] LABS: ABSOLUTE LYMPHOCYTES# (MANUAL) 2.4 10^3/uL (0.5-4.7); ABSOLUTE MONOCYTES # (MANUAL) 0.5 10^3/uL (0.1-1.4); ABSOLUTE NEUTROPHILS# (MANUAL) 4.8 10^3/uL (1.7-8.2); ACANTHOCYTES 1+; ANISOCYTOSIS 4+; BASOPHILS % (MANUAL) 1 % (0-2); EOSINOPHILS % (MANUAL) 0 % (0-6); LYMPHOCYTES % (MANUAL) 31 % (13-45); MONOCYTES % (MANUAL) 7 % (3-13); POIKILOCYTOSIS 3+; POLYCHROMASIA 1+; SEGMENTED NEUTROPHILS % (MAN) 61 % (42-78); TOTAL CELLS COUNTED 100
[2017-10-20 22:31] LABS: BURR CELLS 1+; HELMET CELLS SLIGHT; OVALOCYTES 2+; PLATELET COMMENT ADEQUATE; SICKLE RED CELLS 1+; TEAR DROP CELLS 1+
[2017-10-20 23:11] LABS: MEAN CORPUSCULAR VOLUME 104 fl (80-97)
[2017-10-20 23:55] VITALS: BP 129/84
== END 2017-10-20 23:55 | disposition home or self-care (01) ==
LOC: ER 19:13
DX: D57.00 Hb-SS disease with crisis, unspecified (principal); M54.5 Low back pain; R50.9 Fever, unspecified; Z91.018 Allergy to other foods; Z88.8 Allergy status to other drugs, medicaments and biological substances; J45.909 Unspecified asthma, uncomplicated
CPT/HCPCS: 36591; 96376; 99284; 96361; 96374; 96375; 36415; 87040; 85025; 85045; 80053; 81001; 71045; J1200; J1170; J2405; J7030

== ENCOUNTER 2017-10-25 22:38 | Inpatient (IN) | payer MEDICAID ==
[2017-10-25] MEDS ORDERED: DIPHENHYDRAMINE HCL 50 MG/ML VIAL IV ONE (23:25)
[2017-10-25] MEDS ORDERED: HYDROMORPHONE HCL INJ/PF 2 MG/ML AMPULE IV ONE (23:25)
[2017-10-25] MEDS ORDERED: ONDANSETRON HCL INJ/PF 4 MG/2 ML SDV IV ONE (23:25)
[2017-10-25] MEDS ORDERED: NORMAL SALINE 1000 ML 1,000 ML IV ONE ×2 (23:25)
--- NOTE | 2017-10-25 23:27 | ER Document Report ---
ED General - General Chief Complaint: Sickle Cell Crisis Stated Complaint: SICKLE CELL CRISIS Time Seen by Provider: 10/25/17 23:19 Notes: Patient is a 22-year-old male with a history of sickle cell that comes emergency department for chief complaint of general body pain but significantly worsening pain in his right arm area that started earlier today. He denies injury, fever, chills, nausea or vomiting. He denies shortness of breath or chest pain. TRAVEL OUTSIDE OF THE [place] IN LAST 30 DAYS: No - Related Data Allergies/Adverse Reactions: Coconut * [Coconut] Allergy (Mild, Verified 09/20/17 23:14) transpore tape Allergy (Mild, Uncoded 09/20/17 23:14) Hives Past Medical History - General Information source: Patient - Social History Smoking Status: Never Smoker Drug Abuse: None Lives with: Family Family History: Reviewed & Not Pertinent, Arthritis, DM, Hypertension, Other - Sickle cell trait both parents and asthma Pulmonary Medical History: Reports: Hx Asthma, Hx Pneumonia Renal/ Medical History: Denies: Hx Peritoneal Dialysis Psychiatric Medical History: Denies: Hx Depression Past Surgical History: Reports: Hx Abdominal Surgery - Gallstones removal, Hx Cholecystectomy, Hx Orthopedic Surgery - Fluid drained from right foot, Hx Vascular Surgery - Port placement - Immunizations Immunizations up to date: Yes Hx Diphtheria, Pertussis, Tetanus Vaccination: Yes Hx Pneumococcal Vaccination: 01/15/13 Review of Systems - Review of Systems Constitutional: See HPI EENT: No symptoms reported Cardiovascular: See HPI Respiratory: No symptoms reported Gastrointestinal: No symptoms reported Genitourinary: No symptoms reported Male Genitourinary: No symptoms reported Musculoskeletal: See HPI Skin: No symptoms reported Hematologic/Lymphatic: No symptoms reported Neurological/Psychological: No symptoms reported Physical Exam - Vital signs Vitals: Temp Pulse Resp BP Pulse Ox 98.3 F 117 H 20 151/70 H 93 10/25/17 22:42 10/25/17 22:42 10/25/17 22:42 10/25/17 22:42 10/25/17 22:42 - General General appearance: Other - Patient occasionally grimaces, does not appear to be uncomfortable but has not had any significant distress In distress: None - HEENT Head: Normocephalic, Atraumatic Eyes: Normal Extraocular movements intact: Yes Eyelashes: Normal Pupils: PERRL Nasal: Normal Mouth/Lips: Normal Mucous membranes: Normal Pharynx: Normal Neck: Normal - Respiratory Respiratory status: No respiratory distress. No: Respiratory distress, Labored , Retractions, Tachypnea Breath sounds: Normal. No: Decreased air movement, Wheezing - Cardiovascular Rhythm: Regular, Tachycardia Heart sounds: Normal auscultation, S1 appreciated, S2 appreciated - Abdominal Inspection: Normal Tenderness: Nontender - Extremities General upper extremity: Other - Patient with mild tenderness over the right forearm, there is a palpable nodular area which is still soft but is definitely present, appears to be superficial. No erythema, significant tenderness over the area, or other abnormality noted. Normal distal pulses, sensation, capillary refill. 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 Right arm with what appears to be a superficial clot, no significant swelling, erythema, sign of joint infection, or neurovascular abnormality. CBC does not show leukocytosis, shows mild anemia, reticulocytes are elevated. Chemistry shows elevation of indirect bilirubin consistent with hemolysis. On reexamination patient reports feeling slightly improved but he still is tachycardic and in pain. Patient has been given multiple doses of medication now. Discussed with patient, will discuss with hospitalist for admission. Discussed with Dr. Jeffries, head strength and conditioning coach for Dr. Stanton who is patient's provider , he will accept patient to the hospital in admission. Venous Doppler of the right upper extremity placed to be performed in the morning. - Vital Signs Vital signs: Temp Pulse Resp BP Pulse Ox 98.9 F 111 H 16 128/70 H 94 10/26/17 03:54 10/26/17 03:54 10/26/17 03:54 10/26/17 03:54 10/26/17 03:54 - Laboratory Result Diagrams: 10/26/17 00:55 10/26/17 00:55 Laboratory results interpreted by me: 10/26/17 10/26/17 00:55 00:55 RBC 2.52 L Hgb 9.2 L Hct 25.7 L MCV 102 H MCH 36.4 H RDW 26.9 H Retic Count (auto) 7.04 H Absolute Retic 0.177 H Total Bilirubin 3.3 H AST 68 H Discharge - Discharge Clinical Impression: Sickle cell crisis, Tachycardia, Right arm pain Condition: Stable Disposition: ADMITTED INPATIENT Admitting Provider: Mervin Unit Admitted: Telemetry
[2017-10-26] MEDS ORDERED: HYDROMORPHONE HCL INJ/PF 2 MG/ML AMPULE IV ONE (01:10)
[2017-10-26 01:19] LABS: ABSOLUTE RETICS # 0.177 10^6/uL (0.028-0.122); HEMATOCRIT 25.7 % (37.9-51.0); HEMOGLOBIN 9.2 g/dL (13.5-17.0); MEAN CORPUSCULAR HEMOGLOBIN 36.4 pg (27.0-33.4); MEAN CORPUSCULAR HGB CONC 35.6 g/dL (32.0-36.0); MEAN CORPUSCULAR VOLUME 102 fl (80-97); PLATELET COUNT 254 10^3/uL (150-450); RED BLOOD COUNT 2.52 10^6/uL (4.35-5.55); RED CELL DISTRIBUTION WIDTH 26.9 % (11.5-14.0); RETICULOCYTE COUNT (AUTO) 7.04 % (0.66-2.85); WHITE BLOOD COUNT 9.1 10^3/uL (4.0-10.5)
[2017-10-26 01:34] LABS: ALANINE AMINOTRANSFERASE 30 U/L (21-72); ALBUMIN 4.2 g/dL (3.5-5.0); ALKALINE PHOSPHATASE 97 U/L (38-126); ANION GAP 9 (5-19); ASPARTATE AMINO TRANSFERASE 68 U/L (17-59); BILIRUBIN,DIRECT 0.4 mg/dL (0.0-0.4); BILIRUBIN,TOTAL 3.3 mg/dL (0.2-1.3); BLOOD UREA NITROGEN 10 mg/dL (7-20); CALCIUM 8.7 mg/dL (8.4-10.2); CARBON DIOXIDE 28 mmol/L (22-30); CHLORIDE 103 mmol/L (98-107); GLUCOSE 96 mg/dL (75-110); POTASSIUM 4.5 mmol/L (3.6-5.0); SODIUM 139.7 mmol/L (137-145); TOTAL PROTEIN 7.3 g/dL (6.3-8.2)
[2017-10-26 01:46] LABS: ABSOLUTE LYMPHOCYTES# (MANUAL) 2.4 10^3/uL (0.5-4.7); ABSOLUTE MONOCYTES # (MANUAL) 0.9 10^3/uL (0.1-1.4); ABSOLUTE NEUTROPHILS# (MANUAL) 5.4 10^3/uL (1.7-8.2); BASOPHILS % (MANUAL) 0 % (0-2); EOSINOPHILS % (MANUAL) 5 % (0-6); LYMPHOCYTES % (MANUAL) 26 % (13-45); MONOCYTES % (MANUAL) 10 % (3-13); SEGMENTED NEUTROPHILS % (MAN) 59 % (42-78); TOTAL CELLS COUNTED 100
[2017-10-26 01:47] LABS: NUCLEATED RED BLOOD CELLS 1 /100 WBC (0)
[2017-10-26 01:49] LABS: ACANTHOCYTES 1+; ANISOCYTOSIS 3+; POIKILOCYTOSIS 3+
[2017-10-26 01:50] LABS: OVALOCYTES 2+; PLATELET COMMENT ADEQUATE; SCHISTOCYTES SLIGHT; SICKLE RED CELLS 1+; STOMATOCYTES 1+
[2017-10-26] MEDS ORDERED: ONDANSETRON HCL INJ/PF 4 MG/2 ML SDV IV ONE (02:14)
[2017-10-26] MEDS ORDERED: DIPHENHYDRAMINE HCL 50 MG/ML VIAL IV ONE (02:14)
[2017-10-26] MEDS: HYDROMORPHONE HCL INJ/PF 2 MG/ML AMPULE IV PRN ×5 (03:05→20:15)
[2017-10-26 07:06] LABS: HEMATOCRIT 22.5 % (37.9-51.0); HEMOGLOBIN 8.2 g/dL (13.5-17.0); MEAN CORPUSCULAR HEMOGLOBIN 37.1 pg (27.0-33.4); MEAN CORPUSCULAR HGB CONC 36.4 g/dL (32.0-36.0); MEAN CORPUSCULAR VOLUME 102 fl (80-97); PLATELET COUNT 225 10^3/uL (150-450); RED BLOOD COUNT 2.21 10^6/uL (4.35-5.55); RED CELL DISTRIBUTION WIDTH 26.5 % (11.5-14.0); WHITE BLOOD COUNT 8.8 10^3/uL (4.0-10.5)
[2017-10-26 07:20] LABS: ANION GAP 9 (5-19); BLOOD UREA NITROGEN 11 mg/dL (7-20); CALCIUM 8.5 mg/dL (8.4-10.2); CARBON DIOXIDE 29 mmol/L (22-30); CHLORIDE 105 mmol/L (98-107); GLUCOSE 95 mg/dL (75-110); POTASSIUM 4.8 mmol/L (3.6-5.0)
[2017-10-26 07:27] LABS: ABSOLUTE LYMPHOCYTES# (MANUAL) 2.9 10^3/uL (0.5-4.7); ABSOLUTE MONOCYTES # (MANUAL) 0.6 10^3/uL (0.1-1.4); ABSOLUTE NEUTROPHILS# (MANUAL) 4.8 10^3/uL (1.7-8.2); BASOPHILS % (MANUAL) 0 % (0-2); EOSINOPHILS % (MANUAL) 6 % (0-6); LYMPHOCYTES % (MANUAL) 33 % (13-45); MONOCYTES % (MANUAL) 7 % (3-13); SEGMENTED NEUTROPHILS % (MAN) 54 % (42-78); TOTAL CELLS COUNTED 100
[2017-10-26 07:30] LABS: POIKILOCYTOSIS 3+; POLYCHROMASIA 1+
[2017-10-26 07:31] LABS: ACANTHOCYTES 1+; ANISOCYTOSIS 3+; OVALOCYTES 2+; SCHISTOCYTES SLIGHT; SICKLE RED CELLS 1+
[2017-10-26 07:32] LABS: NUCLEATED RED BLOOD CELLS 2 /100 WBC (0); PLATELET COMMENT ADEQUATE
[2017-10-26] MEDS ORDERED: HYDROCODONE BITARTRATE PO PRN (07:57)
[2017-10-26] MEDS ORDERED: HYDROMORPHONE HCL 2 MG TABLET PO PRN (07:57)
[2017-10-26] MEDS ORDERED: ENOXAPARIN SODIUM INJ 40 MG/0.4 ML DISP.SYRIN SUBCUT SCH (10:00)
[2017-10-26] MEDS: HYDROXYUREA 500 MG CAPSULE PO SCH (10:51)
[2017-10-26] MEDS: FOLIC ACID 1 MG TABLET PO SCH (10:51)
--- NOTE | 2017-10-26 13:34 | RADIOLOGY REPORT (SQ) ---
EXAM DESCRIPTION: VENOUS UNILATERAL UPPER COMPLETED DATE/TIME: 10/26/2017 10:01 am REASON FOR STUDY: right upper arm pain and swelling COMPARISON: None. TECHNIQUE: Dynamic and static child scale and color images acquired of the right arm venous system. S elected spectral images acquired with additional compression and augmentation maneuvers. Images stor ed on PACS. LIMITATIONS: None. FINDINGS: There is nonocclusive thrombus adherent to the port in the right subclavian vein. There i s some thrombus that extends distally into the the subclavian vein as well. The axillary vein, cepha lic veins, brachial veins, and basilic veins are all patent and compressible without evidence of thro mbus. No other abnormalities are appreciated. IMPRESSION: Nonocclusive thrombus in the right subclavian vein that is adherent to the port catheter TECHNICAL DOCUMENTATION: JOB ID: [id number] [employer]- All Rights Reserved Reading location - IP/workstation name: [email or web address]
--- NOTE | 2017-10-26 14:38 | PDOC H&P ---
History of Present Illness Admission Date/PCP: 10/26/17 02:19 ANDREW WILLIS History of Present Illness: MARINO POZO is a 22 year old male, he has a history of sickle cell disease, he came to the emergency room earlier this morning for evaluation of pain in the right upper extremity, he had venous Doppler of the right upper extremity, it showed deep vein thrombosis in the right subclavian vein, he has a Port-A- Cath in the right subclavian vein. He complained of pain more so in the right upper extremity but essentially generalized pain, he has sickle cell disease, on the medication with Dilaudid p.o. Past Medical History Pulmonary Medical History: Reports: Asthma, Pneumonia Hematology: Reports: Anemia, Sickle Cell Disease, Bleeding Tendencies Past Surgical History Past Surgical History: Reports: Cholecystectomy, Orthopedic Surgery - Fluid drained from right foot, Vascular Surgery - Port placement Social History Lives with: Family Smoking Status: Never Smoker Frequency of Alcohol Use: None Hx Recreational Drug Use: No Drugs: None Hx Prescription Drug Abuse: No - Advance Directive Resuscitation Status: Full Code Family History Family History: Reviewed & Not Pertinent, Arthritis, DM, Hypertension, Other - Sickle cell trait both parents and asthma Parental Family History Reviewed: Yes Children Family History Reviewed: Yes Sibling(s) Family History Reviewed.: Yes Medication/Allergy Home Medications: Folic Acid [Folvite 1 mg Tablet] 1 mg PO DAILY 09/21/17 Hydromorphone HCl [Dilaudid 2 mg Tablet] 2 mg PO Q4HP PRN 09/21/17 Hydroxyurea [Hydrea 500 mg Capsule] 1,500 mg PO DAILY 09/21/17 Hydrocodone Bitartrate [Zohydro ER] 15 mg PO Q6H PRN 10/20/17 Allergies/Adverse Reactions: Coconut * [Coconut] Allergy (Mild, Verified 09/20/17 23:14) transpore tape Allergy (Mild, Uncoded 09/20/17 23:14) Hives Review of Systems Constitutional: ABSENT: chills, fever(s), headache(s), weight gain, weight loss Eyes: ABSENT: visual disturbances Ears: ABSENT: hearing changes Cardiovascular: ABSENT: chest pain, dyspnea on exertion, edema, orthropnea, palpitations Respiratory: ABSENT: cough, hemoptysis Gastrointestinal: ABSENT: abdominal pain, constipation, diarrhea, hematemesis, hematochezia, nausea, vomiting Genitourinary: ABSENT: dysuria, hematuria Musculoskeletal: PRESENT: other - Generalized body pains. ABSENT: joint swelling Integumentary: ABSENT: rash, wounds Neurological: ABSENT: abnormal gait, abnormal speech, confusion, dizziness, focal weakness, syncope Psychiatric: ABSENT: anxiety, depression, homidical ideation, suicidal ideation Endocrine: ABSENT: cold intolerance, heat intolerance, menstrual abnormalities, polydipsia, polyuria Hematologic/Lymphatic: ABSENT: easy bleeding, easy bruising, lymphadenopathy Physical Exam Vital Signs: Temp Pulse Resp BP Pulse Ox 98.7 F 92 18 117/75 90 L 10/26/17 12:34 10/26/17 12:34 10/26/17 12:34 10/26/17 12:34 10/26/17 12:34 Intake & Output 10/25/17 10/26/17 10/27/17 06:59 06:59 06:59 Intake Total 572 577 Output Total 900 1200 Balance -328 -623 Weight 59.5 kg General appearance: PRESENT: no acute distress, well-developed, well-nourished Head exam: PRESENT: atraumatic, normocephalic Eye exam: PRESENT: conjunctiva pink, EOMI, PERRLA Ear exam: PRESENT: normal external ear exam Mouth exam: PRESENT: moist, tongue midline Neck exam: PRESENT: full ROM Respiratory exam: PRESENT: clear to auscultation ethan Cardiovascular exam: PRESENT: RRR, +S1, +S2 Pulses: PRESENT: normal radial pulses Vascular exam: PRESENT: normal capillary refill GI/Abdominal exam: PRESENT: normal bowel sounds, soft Rectal exam: PRESENT: deferred Extremities exam: PRESENT: tenderness, other - Swelling, tenderness of the right upper extremity, there is a port in place Neurological exam: PRESENT: alert, awake, oriented to person, oriented to place , oriented to time, oriented to situation, CN II-XII grossly intact Psychiatric exam: PRESENT: appropriate affect, normal mood Skin exam: PRESENT: dry, intact, warm Results Laboratory Results: 10/26/17 06:15 10/26/17 06:15 10/26/17 10/26/17 06:15 06:15 WBC 8.8 RBC 2.21 L Hgb 8.2 L Hct 22.5 L MCV 102 H MCH 37.1 H MCHC 36.4 H RDW 26.5 H Plt Count 225 Seg Neutrophils % Not Reportable Lymphocytes % Not Reportable Monocytes % Not Reportable Eosinophils % Not Reportable Basophils % Not Reportable Absolute Neutrophils Not Reportable Absolute Lymphocytes Not Reportable Absolute Monocytes Not Reportable Absolute Eosinophils Not Reportable Absolute Basophils Not Reportable Sodium 143.0 Potassium 4.8 Chloride 105 Carbon Dioxide 29 Anion Gap 9 BUN 11 Creatinine 0.78 Est GFR ( Amer) > 60 Est GFR (Non-Af Amer) > 60 Glucose 95 Calcium 8.5 Impressions: Venous Doppler Study 10/26/17 02:14 IMPRESSION: Nonocclusive thrombus in the right subclavian vein that is adherent to the port catheter Assessment & Plan - Diagnosis (1) Right subclavian vein thrombosis Is this a current diagnosis for this admission?: Yes Plan: Start anticoagulant, Xarelto 15 mg p.o. twice daily (2) Sickle cell crisis Is this a current diagnosis for this admission?: Yes Plan: Continue pain medication, IV fluid
[2017-10-26] MEDS: NORMAL SALINE 1000 ML 1,000 ML IV PRN (15:22)
[2017-10-26] MEDS: RIVAROXABAN 15 MG TABLET PO SCH (17:54)
[2017-10-27] MEDS: HYDROMORPHONE HCL INJ/PF 2 MG/ML AMPULE IV PRN ×6 (01:03→22:36)
[2017-10-27] MEDS: NORMAL SALINE 1000 ML 1,000 ML IV PRN ×3 (01:05→22:35)
[2017-10-27] MEDS: RIVAROXABAN 15 MG TABLET PO SCH ×2 (08:15→18:09)
[2017-10-27] MEDS: HYDROXYUREA 500 MG CAPSULE PO SCH (09:04)
[2017-10-27] MEDS: FOLIC ACID 1 MG TABLET PO SCH (09:04)
--- NOTE | 2017-10-27 14:11 | PDOC PROGRESS REPORT ---
Subjective Progress Note for:: 10/27/17 Subjective:: He has a thrombosed right subclavian vein at the site of the Port-A-Cath, started on Xarelto, consultation obtained from surgery to decide if there is indication for removal of the device Reason For Visit: SICKLE CELL CRISIS Physical Exam Vital Signs: Temp Pulse Resp BP Pulse Ox 98.6 F 87 16 129/73 H 98 10/27/17 11:32 10/27/17 11:32 10/27/17 11:32 10/27/17 11:32 10/27/17 11:32 Intake & Output 10/26/17 10/27/17 10/28/17 06:59 06:59 06:59 Intake Total 572 4490 400 Output Total 900 4250 1000 Balance -328 240 -600 Weight 59.5 kg 59.4 kg General appearance: PRESENT: no acute distress Eye exam: PRESENT: PERRLA Respiratory exam: PRESENT: clear to auscultation ethan Cardiovascular exam: PRESENT: +S1, +S2 GI/Abdominal exam: PRESENT: soft Neurological exam: PRESENT: alert, CN II-XII grossly intact Results Laboratory Results: 10/26/17 06:15 10/26/17 06:15 Impressions: Venous Doppler Study 10/26/17 02:14 IMPRESSION: Nonocclusive thrombus in the right subclavian vein that is adherent to the port catheter Assessment & Plan - Diagnosis (1) Right subclavian vein thrombosis Is this a current diagnosis for this admission?: Yes (2) Sickle cell crisis Is this a current diagnosis for this admission?: Yes - Plan Summary Plan Summary: Continue Xarelto
--- NOTE | 2017-10-27 17:57 | PDOC CONSULTATION ---
Consultation Consult Date: 10/27/17 Attending physician:: TESS FARRELL Consult reason:: Clot right subclavian vein History of Present Illness Admission Date/PCP: 10/26/17 02:19 ANDREW WILLIS History of Present Illness: MARINO POZO is a 22 year old male, he has a history of sickle cell disease, he came to the emergency room earlier this morning for evaluation of pain in the right upper extremity, he had venous Doppler of the right upper extremity, it showed deep vein thrombosis in the right subclavian vein, he has a Port-A- Cath in the right subclavian vein. He complained of pain more so in the right upper extremity but essentially generalized pain, he has sickle cell disease, on the medication with Dilaudid p.o. General surgeon's addendum: The patient reports having had a left subclavian Prcquo-c-[id number] catheter many years ago, and removed approximately 3 years ago. 2 years ago he underwent right upper extremity port placement in [place]. The single-chamber port and has been functioning satisfactorily. He reports pain in his right upper extremity. Duplex study was performed which showed hyperechoic areas surrounding the catheter in the right subclavian vein which could be clot, fibrin or combination thereof. The axillary vein, cephalic vein, basilic vein and brachial veins are all patent. Your vena cava has flow around the catheter. The port is currently accessed. The patient was admitted and started on 10 a inhibitor for which she is received 2-3 doses. The patient states the tenderness around the port is about the same may be a little worse. Past Medical History Pulmonary Medical History: Reports: Asthma, Pneumonia Psychiatric Medical History: Denies: Depression Hematology: Reports: Anemia, Sickle Cell Disease, Bleeding Tendencies Past Surgical History Past Surgical History: Reports: Cholecystectomy, Orthopedic Surgery - Fluid drained from right foot, Vascular Surgery - Port placement Social History Lives with: Family Smoking Status: Never Smoker Frequency of Alcohol Use: None Hx Recreational Drug Use: No Drugs: None Hx Prescription Drug Abuse: No - Advance Directive Resuscitation Status: Full Code Family History Family History: Reviewed & Not Pertinent, Arthritis, DM, Hypertension, Other - Sickle cell trait both parents and asthma Parental Family History Reviewed: Yes Children Family History Reviewed: Yes Sibling(s) Family History Reviewed.: Yes Medication/Allergy Home Medications: Folic Acid [Folvite 1 mg Tablet] 1 mg PO DAILY 09/21/17 Hydromorphone HCl [Dilaudid 2 mg Tablet] 2 mg PO Q4HP PRN 09/21/17 Hydroxyurea [Hydrea 500 mg Capsule] 1,500 mg PO DAILY 09/21/17 Hydrocodone Bitartrate [Zohydro ER] 15 mg PO Q6H PRN 10/20/17 Allergies/Adverse Reactions: Coconut * [Coconut] Allergy (Mild, Verified 09/20/17 23:14) transpore tape Allergy (Mild, Uncoded 09/20/17 23:14) Hives Physical Exam Vital Signs: Temp Pulse Resp BP Pulse Ox 98.7 F 103 H 18 119/72 97 10/27/17 16:30 10/27/17 16:30 10/27/17 16:30 10/27/17 16:30 10/27/17 16:30 Intake & Output 10/26/17 10/27/17 10/28/17 06:59 06:59 06:59 Intake Total 572 4490 400 Output Total 900 4250 1000 Balance -328 240 -600 Weight 59.5 kg 59.4 kg General appearance: PRESENT: no acute distress Head exam: PRESENT: atraumatic Neck exam: PRESENT: full ROM Respiratory exam: PRESENT: clear to auscultation ethan Cardiovascular exam: PRESENT: RRR Extremities exam: PRESENT: other - Right upper extremity has port, with Darrius needle access. There is some tenderness around the port but no erythema. Patient is very thin, no subcutaneous tissue, hematoma no pus. The right arm shows excellent range of motion, palpable radial and ulnar pulses. There is no elie tenderness, detainee is edema erythema etc. Results Laboratory Results: 10/26/17 06:15 10/26/17 06:15 Impressions: Venous Doppler Study 10/26/17 02:14 IMPRESSION: Nonocclusive thrombus in the right subclavian vein that is adherent to the port catheter Assessment & Plan - Diagnosis (1) Right subclavian vein thrombosis Is this a current diagnosis for this admission?: Yes Plan: The patient has identified thrombus versus fibrin sheath surrounding the right subclavian catheter placed 2 years ago. Currently the patient is being treated with 10 a inhibitor. In the absence of right arm swelling, JVD, neck pain, chest wall swelling etc., I impression is that the clot around the angle lumen catheter in the subclavian vein is chronic. There is flow around the catheter in the AV and vein, and furthermore all veins in the upper extremity are patent without thrombus. Recommendations: 1. I agree with anticoagulation therapy for 6-8 weeks ; May consider extended therapy at lower dose 2. There is no clinical indication to remove the port at this time, especially considering the patient's young age, and need for long-term chronic IV access ; note, long-term catheters, pacemaker leads are often associated with long-term thrombus: I discussed the above with Dr. Cuco Weinstein vascular surgeon. 3. If patient's condition deteriorates clinically, reconsult surgery - Time Time Spent: 50 to 70 Minutes Smoking Cessation Education: over 10 minutes
[2017-10-28] MEDS: HYDROMORPHONE HCL INJ/PF 2 MG/ML AMPULE IV PRN ×5 (02:34→20:43)
[2017-10-28] MEDS: RIVAROXABAN 15 MG TABLET PO SCH ×2 (08:07→16:25)
[2017-10-28] MEDS: FOLIC ACID 1 MG TABLET PO SCH (09:44)
[2017-10-28] MEDS: NORMAL SALINE 1000 ML 1,000 ML IV PRN (09:45)
[2017-10-28] MEDS: HYDROXYUREA 500 MG CAPSULE PO SCH (09:45)
--- NOTE | 2017-10-28 19:17 | PDOC PROGRESS REPORT ---
Subjective Progress Note for:: 10/28/17 Subjective:: Patient reported improvement in his right arm pain. No swelling. he reported flushing of port-a-cath every 2 weeks. No chest pain or difficulty with breathing. No nausea, vomiting or abdominal pain. Reason For Visit: SICKLE CELL CRISIS Physical Exam Vital Signs: Temp Pulse Resp BP Pulse Ox 98.1 F 82 12 115/53 L 100 10/28/17 15:12 10/28/17 15:12 10/28/17 15:12 10/28/17 15:12 10/28/17 15:12 Intake & Output 10/27/17 10/28/17 10/29/17 06:59 06:59 06:59 Intake Total 4490 4495 1642 Output Total 4250 3175 1050 Balance 240 1320 592 Weight 59.4 kg General appearance: PRESENT: mild distress - from multiple joint sites SSD related pain crisis Head exam: PRESENT: atraumatic, normocephalic Eye exam: PRESENT: conjunctiva pink, EOMI, PERRLA. ABSENT: scleral icterus Mouth exam: PRESENT: moist Respiratory exam: PRESENT: clear to auscultation ethan Cardiovascular exam: PRESENT: RRR. ABSENT: diastolic murmur, rubs, systolic murmur GI/Abdominal exam: PRESENT: normal bowel sounds, soft. ABSENT: distended, guarding, mass, organolmegaly, rebound, tenderness Extremities exam: PRESENT: tenderness - multiple sites. ABSENT: joint swelling , pedal edema Neurological exam: PRESENT: alert, awake, oriented to person, oriented to place , oriented to time, oriented to situation, CN II-XII grossly intact. ABSENT: motor sensory deficit Psychiatric exam: PRESENT: appropriate affect, normal mood. ABSENT: homicidal ideation, suicidal ideation Skin exam: PRESENT: dry, intact, warm. ABSENT: cyanosis, rash Results Laboratory Results: 10/26/17 06:15 10/26/17 06:15 Impressions: Venous Doppler Study 10/26/17 02:14 IMPRESSION: Nonocclusive thrombus in the right subclavian vein that is adherent to the port catheter Assessment & Plan - Diagnosis (1) Right subclavian vein thrombosis Is this a current diagnosis for this admission?: Yes Plan: See attending physician orders. (2) Sickle cell disease with crisis Is this a current diagnosis for this admission?: Yes Plan: See attending physician orders. 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 I had extensive discussion with patient regarding need for anticoagulation for next 6-8 weeks. Thereafter he will need weekly heparin flush of his port-a-cath device. Continue all current medication management.
[2017-10-29] MEDS: HYDROMORPHONE HCL INJ/PF 2 MG/ML AMPULE IV PRN ×5 (00:58→20:30)
[2017-10-29 06:56] LABS: HEMATOCRIT 28.4 % (37.9-51.0); MEAN CORPUSCULAR HEMOGLOBIN 35.9 pg (27.0-33.4); MEAN CORPUSCULAR HGB CONC 35.1 g/dL (32.0-36.0); MEAN CORPUSCULAR VOLUME 102 fl (80-97); PLATELET COUNT 386 10^3/uL (150-450); RED BLOOD COUNT 2.78 10^6/uL (4.35-5.55); RED CELL DISTRIBUTION WIDTH 25.7 % (11.5-14.0); WHITE BLOOD COUNT 6.6 10^3/uL (4.0-10.5)
[2017-10-29 07:17] LABS: ABSOLUTE LYMPHOCYTES# (MANUAL) 3.4 10^3/uL (0.5-4.7); ABSOLUTE MONOCYTES # (MANUAL) 0.5 10^3/uL (0.1-1.4); ABSOLUTE NEUTROPHILS# (MANUAL) 2.4 10^3/uL (1.7-8.2); BASOPHILS % (MANUAL) 0 % (0-2); EOSINOPHILS % (MANUAL) 3 % (0-6); LYMPHOCYTES % (MANUAL) 52 % (13-45); MONOCYTES % (MANUAL) 8 % (3-13); SEGMENTED NEUTROPHILS % (MAN) 37 % (42-78); TOTAL CELLS COUNTED 100
[2017-10-29 07:21] LABS: ANISOCYTOSIS 3+; OVALOCYTES SLIGHT; POIKILOCYTOSIS 2+; SCHISTOCYTES 2+; SICKLE RED CELLS 2+; TEAR DROP CELLS 1+; TOXIC GRANULATION 2+
[2017-10-29 07:22] LABS: PLATELET COMMENT ADEQUATE; PLATELET GIANT PRESENT; PLATELET LARGE PRESENT
[2017-10-29 07:24] LABS: NUCLEATED RED BLOOD CELLS 7 /100 WBC (0)
[2017-10-29] MEDS: RIVAROXABAN 15 MG TABLET PO SCH ×2 (09:01→17:23)
[2017-10-29] MEDS: NORMAL SALINE 1000 ML 1,000 ML IV PRN ×2 (09:01→20:30)
[2017-10-29] MEDS: FOLIC ACID 1 MG TABLET PO SCH (09:02)
[2017-10-29] MEDS: HYDROXYUREA 500 MG CAPSULE PO SCH (09:02)
[2017-10-29 09:59] LABS: PATH REVIEW PATHOLOGIST REVIEWED
--- NOTE | 2017-10-29 13:20 | PDOC PROGRESS REPORT ---
Subjective Progress Note for:: 10/29/17 Subjective:: Patient reported some improvement in his right arm pain. He denied any significant swelling. No chest pain or difficulty with breathing. No nausea, vomiting, abdominal pain or constipation. Reason For Visit: SICKLE CELL CRISIS Physical Exam Vital Signs: Temp Pulse Resp BP Pulse Ox 98.1 F 75 16 121/73 99 10/29/17 11:01 10/29/17 11:01 10/29/17 11:01 10/29/17 11:01 10/29/17 11:20 Intake & Output 10/28/17 10/29/17 10/30/17 06:59 06:59 06:59 Intake Total 4495 3242 1022 Output Total 3175 2050 500 Balance 1320 1192 522 Physical Exam: General appearance: PRESENT: mild distress - from multiple joint sites SSD related pain crisis Head exam: PRESENT: atraumatic, normocephalic Eye exam: PRESENT: conjunctiva pink, EOMI, PERRLA. ABSENT: scleral icterus Mouth exam: PRESENT: moist Respiratory exam: PRESENT: clear to auscultation ethan Cardiovascular exam: PRESENT: RRR. ABSENT: diastolic murmur, rubs, systolic murmur GI/Abdominal exam: PRESENT: normal bowel sounds, soft. ABSENT: distended, guarding, mass, organolmegaly, rebound, tenderness Extremities exam: PRESENT: tenderness - multiple sites. ABSENT: joint swelling , pedal edema Neurological exam: PRESENT: alert, awake, oriented to person, oriented to place , oriented to time, oriented to situation, CN II-XII grossly intact. ABSENT: motor sensory deficit Psychiatric exam: PRESENT: appropriate affect, normal mood. ABSENT: homicidal ideation, suicidal ideation Skin exam: PRESENT: dry, intact, warm. ABSENT: cyanosis, rash Results Laboratory Results: 10/29/17 05:55 10/26/17 06:15 10/29/17 05:55 WBC 6.6 RBC 2.78 L Hgb 10.0 L Hct 28.4 L MCV 102 H MCH 35.9 H MCHC 35.1 RDW 25.7 H Plt Count 386 Seg Neutrophils % Not Reportable Lymphocytes % Not Reportable Monocytes % Not Reportable Eosinophils % Not Reportable Basophils % Not Reportable Absolute Neutrophils Not Reportable Absolute Lymphocytes Not Reportable Absolute Monocytes Not Reportable Absolute Eosinophils Not Reportable Absolute Basophils Not Reportable Impressions: Venous Doppler Study 10/26/17 02:14 IMPRESSION: Nonocclusive thrombus in the right subclavian vein that is adherent to the port catheter Assessment & Plan - Diagnosis (1) Right subclavian vein thrombosis Is this a current diagnosis for this admission?: Yes (2) Sickle cell disease with crisis Is this a current diagnosis for this admission?: Yes (3) 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 Is this a current diagnosis for this admission?: Yes - Time Time Spent with patient: 25-34 minutes Medications reviewed and adjusted accordingly: Yes Anticipated discharge: Home Within: Other - Inpatient Certification Based on my medical assessment, after consideration of the patient's comorbidities, presenting symptoms, or acuity I expect that the services needed warrant INPATIENT care.: Yes I certify that my determination is in accordance with my understanding of Medicare's requirements for reasonable and necessary INPATIENT services [42 CFR 412.3e].: Yes Medical Necessity: Need Close Monitoring Due to Risk of Patient Decompensation, Need For IV Fluids, Need for Pain Control, Risk of Complication if Not Cared For in Hospital Post Hospital Care: D/C [employer] Documentation - Plan Summary Plan Summary: Continue current medication management. Possible discharge home in next 24-48 hours discussed with patient during this bedside visit.
[2017-10-30] MEDS: HYDROMORPHONE HCL INJ/PF 2 MG/ML AMPULE IV PRN ×6 (00:42→21:32)
--- NOTE | 2017-10-30 07:50 | PDOC PROGRESS REPORT ---
Subjective Progress Note for:: 10/30/17 Subjective:: Patient reported some more swelling in his right arm pain. He denied chest pain or difficulty with breathing. No nausea, vomiting, abdominal pain or constipation. No fever or chills. Reason For Visit: SICKLE CELL CRISIS Physical Exam Vital Signs: Temp Pulse Resp BP Pulse Ox 98.5 F 82 17 122/68 96 10/30/17 03:28 10/30/17 07:00 10/30/17 03:28 10/30/17 03:28 10/30/17 03:28 Intake & Output 10/29/17 10/30/17 10/31/17 06:59 06:59 06:59 Intake Total 3242 4251 Output Total 2050 2800 Balance 1192 1451 Physical Exam: General appearance: PRESENT: mild distress - from multiple joint sites SSD related pain crisis Head exam: PRESENT: atraumatic, normocephalic Eye exam: PRESENT: conjunctiva pink, EOMI, PERRLA. ABSENT: scleral icterus Mouth exam: PRESENT: moist Respiratory exam: PRESENT: clear to auscultation ethan Cardiovascular exam: PRESENT: RRR. ABSENT: diastolic murmur, rubs, systolic murmur GI/Abdominal exam: PRESENT: normal bowel sounds, soft. ABSENT: distended, guarding, mass, organomegaly, rebound, tenderness Extremities exam: PRESENT: tenderness - multiple sites. ABSENT: joint swelling , pedal edema Neurological exam: PRESENT: alert, awake, oriented to person, oriented to place , oriented to time, oriented to situation, CN II-XII grossly intact. ABSENT: motor sensory deficit Psychiatric exam: PRESENT: appropriate affect, normal mood. ABSENT: homicidal ideation, suicidal ideation Skin exam: PRESENT: dry, intact, warm. 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 Is this a current diagnosis for this admission?: Yes - Time Time Spent with patient: 25-34 minutes Medications reviewed and adjusted accordingly: Yes Anticipated discharge: Home Within: within 48 hours - Inpatient Certification Based on my medical assessment, after consideration of the patient's comorbidities, presenting symptoms, or acuity I expect that the services needed warrant INPATIENT care.: Yes I certify that my determination is in accordance with my understanding of Medicare's requirements for reasonable and necessary INPATIENT services [42 CFR 412.3e].: Yes Medical Necessity: Need Close Monitoring Due to Risk of Patient Decompensation, Need For IV Fluids, Need for Pain Control, Risk of Complication if Not Cared For in Hospital 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
[2017-10-30] MEDS: RIVAROXABAN 15 MG TABLET PO SCH ×2 (08:28→17:17)
[2017-10-30] MEDS: NORMAL SALINE 1000 ML 1,000 ML IV PRN ×2 (08:29→19:51)
[2017-10-30] MEDS: FOLIC ACID 1 MG TABLET PO SCH (10:07)
[2017-10-30] MEDS: HYDROXYUREA 500 MG CAPSULE PO SCH (10:07)
[2017-10-31] MEDS: HYDROMORPHONE HCL INJ/PF 2 MG/ML AMPULE IV PRN ×6 (01:42→22:45)
[2017-10-31] MEDS: NORMAL SALINE 1000 ML 1,000 ML IV PRN ×2 (06:14→17:27)
[2017-10-31] MEDS: RIVAROXABAN 15 MG TABLET PO SCH ×2 (08:30→17:27)
[2017-10-31] MEDS: HYDROXYUREA 500 MG CAPSULE PO SCH (10:00)
[2017-10-31] MEDS: FOLIC ACID 1 MG TABLET PO SCH (10:03)
--- NOTE | 2017-10-31 17:42 | PDOC PROGRESS REPORT ---
Subjective Progress Note for:: 10/31/17 Subjective:: Patient reported some relief of his right arm swelling and pain with local application of heat pad. No chest pain or difficulty with breathing. No nausea, vomiting, abdominal pain or constipation. No fever or chills. Reason For Visit: SICKLE CELL CRISIS Physical Exam Vital Signs: Temp Pulse Resp BP Pulse Ox 98.8 F 107 H 16 123/74 93 10/31/17 15:28 10/31/17 15:28 10/31/17 15:28 10/31/17 15:28 10/31/17 15:28 Intake & Output 10/30/17 10/31/17 11/01/17 06:59 06:59 06:59 Intake Total 4251 4019 Output Total 2800 1999 Balance 1452018 Weight 53.8 kg Physical Exam: General appearance: PRESENT: mild distress - from multiple joint sites SSD related pain crisis Head exam: PRESENT: atraumatic, normocephalic Eye exam: PRESENT: conjunctiva pink, EOMI, PERRLA. ABSENT: scleral icterus Mouth exam: PRESENT: moist Respiratory exam: PRESENT: clear to auscultation ethan Cardiovascular exam: PRESENT: RRR. ABSENT: diastolic murmur, rubs, systolic murmur GI/Abdominal exam: PRESENT: normal bowel sounds, soft. ABSENT: distended, guarding, mass, organomegaly, rebound, tenderness Extremities exam: PRESENT: improving tenderness - multiple sites related to his SSDx. ABSENT: joint swelling, pedal edema Neurological exam: PRESENT: alert, awake, oriented to person, oriented to place , oriented to time, oriented to situation, CN II-XII grossly intact. ABSENT: motor sensory deficit Psychiatric exam: PRESENT: appropriate affect, normal mood. ABSENT: homicidal ideation, suicidal ideation Skin exam: PRESENT: dry, intact, warm. 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 Is this a current diagnosis for this admission?: Yes - Time Time Spent with patient: 25-34 minutes Medications reviewed and adjusted accordingly: Yes Anticipated discharge: Home Within: within 24 hours - Inpatient Certification Based on my medical assessment, after consideration of the patient's comorbidities, presenting symptoms, or acuity I expect that the services needed warrant INPATIENT care.: Yes I certify that my determination is in accordance with my understanding of Medicare's requirements for reasonable and necessary INPATIENT services [42 CFR 412.3e].: Yes Medical Necessity: Need Close Monitoring Due to Risk of Patient Decompensation, Need For IV Fluids, Need for Pain Control, Risk of Complication if Not Cared For in Hospital Post Hospital Care: D/C [facility] Documentation - Plan Summary Plan Summary: Restart on his preadmission home medication except the breakthrough oxycondone. Possible discharge in next 24 hours. Patient is aware of care plan and in agreement.
[2017-10-31] MEDS ORDERED: FENTANYL 75 MCG/HR PATCH.TD72 TD ONE (19:00)
[2017-11-01] MEDS: HYDROMORPHONE HCL INJ/PF 2 MG/ML AMPULE IV PRN ×4 (02:41→15:52)
[2017-11-01] MEDS: NORMAL SALINE 1000 ML 1,000 ML IV PRN (04:03)
[2017-11-01] MEDS: RIVAROXABAN 15 MG TABLET PO SCH (08:14)
[2017-11-01] MEDS: FOLIC ACID 1 MG TABLET PO SCH (09:59)
[2017-11-01] MEDS: HYDROXYUREA 500 MG CAPSULE PO SCH (09:59)
--- NOTE | 2017-11-01 14:45 | PDOC DISCHARGE SUMMARY ---
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 Is this a current diagnosis for this admission?: Yes - Additional Information Resuscitation Status: Full Code Prescriptions: Rivaroxaban [Xarelto 15 mg Tablet] 15 mg PO BIDBS #30 tablet Home Medications: Folic Acid [Folvite 1 mg Tablet] 1 mg PO DAILY 09/21/17 Hydroxyurea [Hydrea 500 mg Capsule] 1,500 mg PO DAILY 09/21/17 Hydrocodone Bitartrate [Zohydro ER] 15 mg PO Q6H PRN 10/20/17 Fentanyl [Duragesic 75 Mcg/Hr Transdermal Patch] 1 each TD Q3DAYS patch.td72 Rivaroxaban [Xarelto 15 mg Tablet] 15 mg PO BIDBS #30 tablet 11/01/17 History of Present Illness History of Present Illness: MARINO POZO is a 22 year old male, he has a history of sickle cell disease, he came to the emergency room earlier this morning for evaluation of pain in the right upper extremity, he had venous Doppler of the right upper extremity, it showed deep vein thrombosis in the right subclavian vein, he has a Port-A- Cath in the right subclavian vein. He complained of pain more so in the right upper extremity but essentially generalized pain, he has sickle cell disease, on the medication with Dilaudid p.o. Hospital Course Hospital Course: Patient was admitted for right arm DVT and Sickle cell disease homogenous S with pain crisis. Patient was started on Xarelto and management with IV Dilaudid for pain. He remain on IV fluid therapy. His arm swelling has improved and his pain is fairly controlled on current medication regimen. He will be discharge home today on his preadmission medication along with Xarelto 15 mg po bid for total 21 days and thereafter 20 mg po daily with dinner. He will follow up in office as instructed upon discharge. Physical Exam Vital Signs: Temp Pulse Resp BP Pulse Ox 98.4 F 102 H 16 127/69 H 95 11/01/17 11:35 11/01/17 11:35 11/01/17 11:35 11/01/17 11:35 11/01/17 11:35 Intake & Output 10/31/17 11/01/17 11/02/17 06:59 06:59 06:59 Intake Total 4019 4251 Output Total 1999 1024 Balance 2018 3225 Weight 53.8 kg Physical Exam: General appearance: PRESENT: No acute distress Head exam: PRESENT: atraumatic, normocephalic Eye exam: PRESENT: conjunctiva pink, EOMI, PERRLA. ABSENT: scleral icterus Mouth exam: PRESENT: moist Respiratory exam: PRESENT: clear to auscultation ethan Cardiovascular exam: PRESENT: RRR. ABSENT: diastolic murmur, rubs, systolic murmur GI/Abdominal exam: PRESENT: normal bowel sounds, soft. ABSENT: distended, guarding, mass, organomegaly, rebound, tenderness Extremities exam: PRESENT: improved tenderness and right arm swelling. ABSENT: joint swelling, pedal edema Neurological exam: PRESENT: alert, awake, oriented to person, oriented to place , oriented to time, oriented to situation, CN II-XII grossly intact. ABSENT: motor sensory deficit Psychiatric exam: PRESENT: appropriate affect, normal mood. ABSENT: homicidal ideation, suicidal ideation Skin exam: PRESENT: dry, intact, warm. ABSENT: cyanosis, rash Results Laboratory Results: 10/29/17 05:55 10/26/17 06:15 Impressions: Venous Doppler Study 10/26/17 02:14 IMPRESSION: Nonocclusive thrombus in the right subclavian vein that is adherent to the port catheter Qualifiers - * PATEINT BEING DISCHARGED WITH ANY OF THE FOLLOWING DIAGNOSIS?: VTE (PE or DVT) Reason(s) for not prescribing Overlap Therapy:: Not indicated - on Xarelto therapy Plan Discharge Plan: D/C home today. Follow up in the office as instructed upon discharge.
[2017-11-01 16:06] VITALS: BP 122/70
[2017-11-03] MEDS ORDERED: FENTANYL 75 MCG/HR PATCH.TD72 TD SCH (10:00)
== END 2017-11-01 16:28 | disposition home or self-care (01) | DRG 314 ==
LOC: ER 22:38 → EH 10-26 02:19 → 3W 10-26 03:30
PROVIDERS: ADMIT Internal Medicine; ATTEND Internal Medicine Geriatric Medicine
DX: T82.868A Thrombosis due to vascular prosthetic devices, implants and grafts, initial encounter (principal); D57.00 Hb-SS disease with crisis, unspecified; I82.B11 Acute embolism and thrombosis of right subclavian vein; Y71.2 Prosthetic and other implants, materials and accessory cardiovascular devices associated with adverse incidents; J45.909 Unspecified asthma, uncomplicated; Z90.49 Acquired absence of other specified parts of digestive tract; Z83.3 Family history of diabetes mellitus; Z82.49 Family history of ischemic heart disease and other diseases of the circulatory system; Z91.018 Allergy to other foods; Z91.09 Other allergy status, other than to drugs and biological substances
CPT/HCPCS: 36415; 80048; 80053; 82962; 85025; 85045; 93971; 96361; 96374; 96375; 96376; 99285; A9270-GY; J1170; J1200; J1650; J2405; J7030

== ENCOUNTER 2017-11-17 17:23 | Emergency (ER) | payer MEDICAID ==
[2017-11-17 17:35] VITALS: BP 139/89
--- NOTE | 2017-11-17 18:24 | ER Document Report ---
ED Medical Screen (RME) - General Chief Complaint: Sickle Cell Crisis Stated Complaint: ARM PAIN Time Seen by Provider: 11/17/17 18:06 Mode of Arrival: Ambulatory Information source: Patient Notes: 22 y.o male with a PMHx of sickle cell anemia presents to the ED for pain in his RUE/shoulder. He was here before for pain in his shoulder and diagnosed with a DVT. He reports that the pain from previous diagnosis had resolved completely but came back yesterday and has been worsening since. Pt also reports pain to his lower back that is consistent with his pain due to sickle cell. He describes his pain as sharp and constant and states that the pain in his shoulder is to a similar extent as it was when he was diagnosed with the DVT. He denies any fall or exertion/exercise that could be related to his pain. He denies any recent illnesses or infections. Pt reports he is taking his Lovenox twice a day as prescribed and is taking his oral Dilaudid as prescribed for pain. He denies needing any pain medications at this time. I have greeted and performed a rapid initial assessment of the patient. A comprehensive ED assessment and evaluation of the patient, analysis of test results, and completion of the medical decision making process will be conducted by additional ED providers. TRAVEL OUTSIDE OF THE [place] IN LAST 30 DAYS: No - Related Data Allergies/Adverse Reactions: Coconut * [Coconut] Allergy (Mild, Verified 11/17/17 17:24) transpore tape Allergy (Mild, Uncoded 11/17/17 17:24) Hives Past Medical History - General Information source: Patient - Social History Chew tobacco use (# tins/day): No Frequency of alcohol use: None Drug Abuse: None Family history: None Pulmonary Medical History: Reports: Hx Asthma, Hx Pneumonia Renal/ Medical History: Denies: Hx Peritoneal Dialysis Psychiatric Medical History: Denies: Hx Depression Past Surgical History: Reports: Hx Abdominal Surgery - Gallstones removal, Hx Cholecystectomy, Hx Orthopedic Surgery - Fluid drained from right foot, Hx Vascular Surgery - Port placement - Immunizations Immunizations up to date: Yes Hx Diphtheria, Pertussis, Tetanus Vaccination: Yes History of Influenza Vaccine for 06/2017 - 10/2017 Season: Yes Influenza Administration Date for 06/2017 - 10/2017 Season: 06/02/17 Review of Systems - Review of Systems Constitutional: denies: Recent illness EENT: No symptoms reported Cardiovascular: No symptoms reported Respiratory: No symptoms reported Gastrointestinal: No symptoms reported Genitourinary: No symptoms reported Male Genitourinary: No symptoms reported Musculoskeletal: See HPI, Back pain, Other - RT shoulder pain Skin: No symptoms reported Hematologic/Lymphatic: See HPI, Other - sickle cell Neurological/Psychological: No symptoms reported Physical Exam - Vital signs Vitals: Temp Pulse Resp BP Pulse Ox 98.4 F 122 H 22 H 139/89 H 93 11/17/17 17:32 11/17/17 17:32 11/17/17 17:32 11/17/17 17:32 11/17/17 17:32 - Notes Notes: Physical Exam: General: Alert, appears well. HEENT: Normocephalic. Atraumatic. PERRLA. Extraocular movements intact. Oropharynx clear. Neck: Supple. Respiratory: No respiratory distress. Abdominal: Normal Inspection. No distension. Extremities: Moves all four extremities. Port in RUE is well appearing, no signs of induration or infection. Neurological: Normal cognition. AAOx4. Normal speech. Psychological: Normal affect. Normal Mood. Skin: Warm. Dry. Normal color. Course - Vital Signs Vital signs: Temp Pulse Resp BP Pulse Ox 98.4 F 122 H 22 H 139/89 H 93 11/17/17 17:32 11/17/17 17:32 11/17/17 17:32 11/17/17 17:32 11/17/17 17:32 Doctor's Discharge - Discharge Referrals: ANDREW WILLIS MD [Primary Care Provider] - Follow up as needed Scribe Documentation - Scribe Written by Bozena:: Bozena Espinal 11/17/17 [id number] acting as scribe for :: Butch
--- NOTE | 2017-11-17 18:50 | ER Document Report ---
ED General - General Mode of Arrival: Ambulatory Information source: Patient TRAVEL OUTSIDE OF THE [place] IN LAST 30 DAYS: No - General Chief Complaint: Sickle Cell Crisis Stated Complaint: ARM PAIN Time Seen by Provider: 11/17/17 18:06 Notes: 22 y.o male with a PMHx of sickle cell anemia presents to the ED for pain in his RUE/shoulder. He was here before for pain in his shoulder and diagnosed with a DVT. He reports that the pain from previous diagnosis had resolved completely but came back yesterday and has been worsening since. Pt also reports pain to his lower back that is consistent with his pain due to sickle cell. He describes his pain as sharp and constant and states that the pain in his shoulder is to a similar extent as it was when he was diagnosed with the DVT. He denies any fall or exertion/exercise that could be related to his pain. He denies any recent illnesses or infections. Pt reports he is taking his Lovenox twice a day as prescribed and is taking his oral Dilaudid as prescribed for pain. He denies needing any pain medications at this time. (VERN VIEYRA) DVT was dx in right subclavian vein (KARINA VELAZCO) - Related Data Allergies/Adverse Reactions: Coconut * [Coconut] Allergy (Mild, Verified 11/17/17 17:24) transpore tape Allergy (Mild, Uncoded 11/17/17 17:24) Hives Past Medical History - General Information source: Patient - Social History Smoking Status: Unknown if Ever Smoked Chew tobacco use (# tins/day): No Frequency of alcohol use: None Drug Abuse: None Family History: Reviewed & Not Pertinent, Arthritis, DM, Hypertension, Other - Sickle cell trait both parents and asthma Patient has suicidal ideation: No Patient has homicidal ideation: No Pulmonary Medical History: Reports: Hx Asthma, Hx Pneumonia Renal/ Medical History: Denies: Hx Peritoneal Dialysis Psychiatric Medical History: Denies: Hx Depression Past Surgical History: Reports: Hx Abdominal Surgery - Gallstones removal, Hx Cholecystectomy, Hx Orthopedic Surgery - Fluid drained from right foot, Hx Vascular Surgery - Port placement - Immunizations Immunizations up to date: Yes Hx Diphtheria, Pertussis, Tetanus Vaccination: Yes Hx Pneumococcal Vaccination: 01/15/13 Review of Systems - Review of Systems Constitutional: See HPI. denies: Recent illness EENT: No symptoms reported Cardiovascular: No symptoms reported Respiratory: No symptoms reported Gastrointestinal: No symptoms reported Genitourinary: No symptoms reported Male Genitourinary: No symptoms reported Musculoskeletal: See HPI, Back pain, Other - RT shoulder Skin: No symptoms reported Hematologic/Lymphatic: No symptoms reported Neurological/Psychological: No symptoms reported -: Yes All other systems reviewed and negative Physical Exam - Vital signs Vitals: Temp Pulse Resp BP Pulse Ox 98.4 F 122 H 22 H 139/89 H 93 11/17/17 17:32 11/17/17 17:32 11/17/17 17:32 11/17/17 17:32 11/17/17 17:32 - Notes Notes: Physical Exam: General: Alert, appears well. HEENT: Normocephalic. Atraumatic. PERRL. Extraocular movements intact. Oropharynx clear. Neck: Supple. Non-tender. Respiratory: No respiratory distress. Clear and equal breath sounds bilaterally. Cardiovascular: Regular rate and rhythm. Abdominal: Normal Inspection. Non-tender. No distension. Normal Bowel Sounds. Back: Non-tender. No deformity or step off. Extremities: Moves all four extremities. Upper extremities: Normal inspection. Normal ROM. Port in RUE appears well, no signs of induration or infection. Lower extremities: Normal inspection. No edema. Normal ROM. Neurological: Normal cognition. AAOx4. Normal speech. Psychological: Normal affect. Normal Mood. Skin: Warm. Dry. Normal color. (VERN VIEYRA) Course - Re-evaluation Re-evalutation: 11/17/17 19:48 Patient's primary concern is progression of the venous thrombosis in his right subclavian vein. Doppler was ordered but Doppler team had to be called in due to weekend. Due to Doppler die cast technician has just been paged and study has not been performed will be transferred to Main pod for final disposition. (KARINA VELAZCO H) - Vital Signs Vital signs: Temp Pulse Resp BP Pulse Ox 98.4 F 122 H 22 H 139/89 H 93 11/17/17 17:32 11/17/17 17:32 11/17/17 17:32 11/17/17 17:32 11/17/17 17:32 Discharge - Discharge Referrals: ANDREW WILLIS MD [Primary Care Provider] - Follow up as needed Scribe Documentation - Scribe Written by Scribe:: Bozena Espinal 11/17/17 [id number] acting as scribe for :: Butch
--- NOTE | 2017-11-17 19:58 | ER Document Report ---
ED Medical Screen (RME) - General Chief Complaint: Sickle Cell Crisis Stated Complaint: ARM PAIN Time Seen by Provider: 11/17/17 18:06 Mode of Arrival: Ambulatory Information source: Patient Notes: 22 y.o male with a PMHx of sickle cell anemia presents to the ED for pain in his RUE/shoulder. He was here before for pain in his shoulder and diagnosed with a DVT of the RT subclavian dalia. He reports that the pain from previous diagnosis had resolved completely but came back yesterday and has been worsening since. Pt also reports pain to his lower back that is consistent with his pain due to sickle cell. He describes his pain as sharp and constant and states that the pain in his shoulder is to a similar extent as it was when he was diagnosed with the DVT. He denies any fall or exertion/exercise that could be related to his pain. He denies any recent illnesses or infections. Pt reports he is taking his Lovenox twice a day as prescribed and is taking his oral Dilaudid as prescribed for pain. He denies needing any pain medications at this time. TRAVEL OUTSIDE OF THE [place] IN LAST 30 DAYS: No - Related Data Allergies/Adverse Reactions: Coconut * [Coconut] Allergy (Mild, Verified 11/17/17 17:24) transpore tape Allergy (Mild, Uncoded 11/17/17 17:24) Hives Past Medical History - General Information source: Patient - Social History Chew tobacco use (# tins/day): No Frequency of alcohol use: None Drug Abuse: None Family history: None Pulmonary Medical History: Reports: Hx Asthma, Hx Pneumonia Renal/ Medical History: Denies: Hx Peritoneal Dialysis Psychiatric Medical History: Denies: Hx Depression Past Surgical History: Reports: Hx Abdominal Surgery - Gallstones removal, Hx Cholecystectomy, Hx Orthopedic Surgery - Fluid drained from right foot, Hx Vascular Surgery - Port placement - Immunizations Immunizations up to date: Yes Hx Diphtheria, Pertussis, Tetanus Vaccination: Yes History of Influenza Vaccine for 06/2017 - 10/2017 Season: Yes Influenza Administration Date for 06/2017 - 10/2017 Season: 06/02/17 Review of Systems - Review of Systems Constitutional: See HPI. denies: Recent illness EENT: No symptoms reported Cardiovascular: No symptoms reported Respiratory: No symptoms reported Gastrointestinal: No symptoms reported Genitourinary: No symptoms reported Male Genitourinary: No symptoms reported Musculoskeletal: See HPI, Back pain, Other - RT shoulder pain Skin: No symptoms reported Hematologic/Lymphatic: No symptoms reported Neurological/Psychological: No symptoms reported -: Yes All other systems reviewed and negative Physical Exam - Vital signs Vitals: Temp Pulse Resp BP Pulse Ox 98.4 F 122 H 22 H 139/89 H 93 11/17/17 17:32 11/17/17 17:32 11/17/17 17:32 11/17/17 17:32 11/17/17 17:32 - Notes Notes: Physical Exam: General: Alert, appears well. HEENT: Normocephalic. Atraumatic. PERRL. Extraocular movements intact. Oropharynx clear. Neck: Supple. Non-tender. Respiratory: No respiratory distress. Clear and equal breath sounds bilaterally. Cardiovascular: Regular rate and rhythm. Abdominal: Normal Inspection. Non-tender. No distension. Normal Bowel Sounds. Back: Non-tender. No deformity or step off. Extremities: Moves all four extremities. Upper extremities: Normal inspection. Normal ROM. Port in RUE appears well, no signs of induration or infection. Lower extremities: Normal inspection. No edema. Normal ROM. Neurological: Normal cognition. AAOx4. Normal speech. Psychological: Normal affect. Normal Mood. Skin: Warm. Dry. Normal color. Course - Re-evaluation Re-evalutation: 11/17/17 19:48 Patient's primary concern is progression of the venous thrombosis in his right subclavian vein. Doppler was ordered but Doppler team had to be called in due to weekend. Due to Doppler solder technician has just been paged and study has not been performed will be transferred to Main pod for final disposition. - Vital Signs Vital signs: Temp Pulse Resp BP Pulse Ox 98.4 F 122 H 22 H 139/89 H 93 11/17/17 17:32 11/17/17 17:32 11/17/17 17:32 11/17/17 17:32 11/17/17 17:32 Doctor's Discharge - Discharge Referrals: ANDREW WILLIS MD [Primary Care Provider] - Follow up as needed Scribe Documentation - Scribe Written by Scribe:: Bozena Espinal 11/17/171957 acting as scribe for :: Butch
== END 2017-11-17 20:55 | disposition left against medical advice (07) ==
LOC: ER 17:23
DX: D57.1 Sickle-cell disease without crisis (principal); M79.601 Pain in right arm; Z86.718 Personal history of other venous thrombosis and embolism; Z90.49 Acquired absence of other specified parts of digestive tract
CPT/HCPCS: 99281

== ENCOUNTER 2017-11-22 18:33 | Emergency (ER) | payer MEDICAID ==
[2017-11-22] MEDS ORDERED: DIPHENHYDRAMINE HCL 50 MG/ML VIAL IV ONE (18:40)
[2017-11-22] MEDS ORDERED: METHYLPREDNISOLONE INJ 125 MG/2 ML SDV IV ONE (18:40)
[2017-11-22] MEDS ORDERED: EPINEPHRINE INJ/PF 1 MG/1 ML AMPULE IM ONE (18:40)
[2017-11-22] MEDS ORDERED: FAMOTIDINE INJ/PF 20 MG/2 ML SDV IV ONE (18:40)
[2017-11-22] MEDS ORDERED: NORMAL SALINE 1000 ML 1,000 ML IV ONE (18:41)
--- NOTE | 2017-11-22 18:41 | ER Document Report ---
ED General - General Chief Complaint: Allergic Reaction Stated Complaint: POSSIBLE ALLERGIC REACTION Time Seen by Provider: 11/22/17 18:38 Notes: Patient is a 22-year-old male with past medical history of sickle cell anemia with associated chronic pain who presents with an anaphylactic reaction. Patient reports [place], that he accidentally inhaled or ingested a coconut-containing product. He reports that he immediately began to have a sensation of throat tightness, difficulty breathing, nausea and abdominal cramping. He reports that he did not have his EpiPen with him. He states however this feels exactly the same as to when he has had an anaphylactic reaction past. Nothing has improved or worsened his symptoms since onset. He came directly to the emergency department upon onset of his symptoms. History is otherwise limited secondary to the acuity of this patient. TRAVEL OUTSIDE OF THE [place] IN LAST 30 DAYS: No - Related Data Allergies/Adverse Reactions: Coconut * [Coconut] Allergy (Mild, Verified 11/22/17 18:34) transpore tape Allergy (Mild, Uncoded 11/22/17 18:34) Hives Past Medical History - General Information source: Patient - Social History Smoking Status: Never Smoker Frequency of alcohol use: None Drug Abuse: None Lives with: Family Family History: Reviewed & Not Pertinent, Arthritis, DM, Hypertension, Other - Sickle cell trait both parents and asthma Pulmonary Medical History: Reports: Hx Asthma, Hx Pneumonia Renal/ Medical History: Denies: Hx Peritoneal Dialysis Psychiatric Medical History: Denies: Hx Depression Past Surgical History: Reports: Hx Abdominal Surgery - Gallstones removal, Hx Cholecystectomy, Hx Orthopedic Surgery - Fluid drained from right foot, Hx Vascular Surgery - Port placement - Immunizations Immunizations up to date: Yes Hx Diphtheria, Pertussis, Tetanus Vaccination: Yes Hx Pneumococcal Vaccination: 01/15/13 Review of Systems - Review of Systems Notes: Constitutional: Negative for fever. HENT: Positive for throat tightness Eyes: Negative for visual changes. Cardiovascular: Negative for chest pain. Respiratory: Positive for shortness of breath. Gastrointestinal: Negative for abdominal pain, positive for nausea Genitourinary: Negative for dysuria. Musculoskeletal: Negative for back pain. Skin: Negative for rash. Neurological: Negative for headaches, weakness or numbness. 10 point ROS negative except as marked above and in HPI. Physical Exam - Vital signs Vitals: Resp Pulse Ox 18 96 11/22/17 18:40 11/22/17 18:40 Interpretation: Tachycardic, Hypoxic, Tachypneic Notes: PHYSICAL EXAMINATION: GENERAL: Appears uncomfortable, apparent difficulty breathing HEAD: Atraumatic, normocephalic. EYES: Pupils equal round and reactive to light, extraocular movements intact, sclera anicteric, conjunctiva are normal. ENT: nares patent, mild posterior oropharyngeal edema but the airway remains patent NECK: Normal range of motion, mild stridor LUNGS: Scattered wheezing in all lung britton. Moderate respiratory distress. HEART: Regular tachycardia without murmurs ABDOMEN: Soft, nontender, normoactive bowel sounds. No guarding, no rebound. No masses appreciated. EXTREMITIES: Normal range of motion, no pitting or edema. No cyanosis. NEUROLOGICAL: No focal neurological deficits. Moves all extremities spontaneously and on command. PSYCH: Moderately anxious SKIN: Warm, Dry, normal turgor, no rashes or lesions noted. Course - Re-evaluation Re-evalutation: 11/22/17 18:39 Patient presents in respiratory distress, saturating 91% on room air, no stridor on exam after accidentally ingesting coconut to which she has a history of anaphylactic reactions in the past. Patient was immediately administered 0.5 mg of intramuscular epinephrine. His port was accessed. Will begin frequent serial assessments to monitor for needs a repeat doses of epinephrine. Also give give a dose of diphenhydramine, Solu-Medrol, famotidine and fluids. Patient currently is in critical condition and will require regular, frequent reassessments. 11/22/17 19:04 Patient has had marked improvement of his stridor, work of breathing and tachycardia. His initial muffled voice is also improved. Will continue to monitor closely. However he has moved from critical to guarded condition. Will continue to reassess at regular intervals. 11/22/17 19:27 Patient's work of breathing continues to be improved tachycardia, heart rate currently 99, now 100% on room air as opposed to 91% initially on room air at time of presentation. Will continue to monitor. 11/22/17 19:46 Patient continues to be stable, no increased work of breathing or hypotension. No vomiting or diarrhea. 11/22/17 20:14 Patient has remained hemodynamically within normal limits, continues to have any additional symptoms. He already has an EpiPen available to him at home unfortunately did not have with him today. A. Monitoring has been completed over the course the past 2 hours and patient has remained clinically improved since the initial dose of epinephrine. I believe it is safe for him to be discharged home at this time point but I have emphasized emphatically with the patient the critical importance of immediate return if the emergency department should he have recurrence of symptoms or any new or worsening symptoms that are worrisome to him. - Vital Signs Vital signs: Temp Pulse Resp BP Pulse Ox 98.5 F 100 20 137/92 H 95 11/22/17 21:44 11/22/17 21:44 11/22/17 21:44 11/22/17 21:44 11/22/17 21:44 Critical Care Note - Critical Care Note Total time excluding time spent on procedures (mins): 38 Comments: Critical care time spent obtaining history from patient or surrogate, discussions with consultants, development of treatment plan with patient or surrogate, evaluation of patient's response to treatment, examination of patient , ordering and performing treatments and interventions, ordering and review of laboratory studies, re-evaluation of patient's condition, ordering and review of radiographic studies and review of old charts Discharge - Discharge Clinical Impression: Sickle cell crisis, Respiratory distress Anaphylactic reaction Qualifiers: Encounter type: initial encounter Qualified Code(s): T78.2XXA - Anaphylactic shock, unspecified, initial encounter Condition: Good Disposition: HOME, SELF-CARE Additional Instructions: IF YOU DEVELOP DIFFICULTY BREATHING, RETURN OF HIVES, VOMITING, LIGHTHEADEDNESS , GIVE YOURSELF THE EPINEPHRINE SHOT IMMEDIATELY AND CALL 911. NEVER HESITATE TO GIVE YOURSELF THE EPINEPHRINE THIS CAN SAVE YOUR LIFE IF YOU ARE HAVE A SERIOUS ALLERGIC REACTION. Please also follow-up with your primary care doctor for consideration of allergy testing. Referrals: ANDREW WILLIS MD [Primary Care Provider] - Follow up as needed
[2017-11-22] MEDS ORDERED: ONDANSETRON HCL INJ/PF 4 MG/2 ML SDV IV ONE (19:04)
[2017-11-22] MEDS ORDERED: MORPHINE SULFATE 10 MG/ML INJ IV PRN (19:04)
[2017-11-22] MEDS ORDERED: NORMAL SALINE INJ/PF 0.9% 10 ML SDV IV PRN (21:02)
[2017-11-22 21:43] VITALS: BP 137/92
[2017-11-23] MEDS ORDERED: ONDANSETRON HCL INJ/PF 4 MG/2 ML SDV IV PRN (12:59)
[2017-11-23] MEDS ORDERED: NORMAL SALINE 1000 ML 1,000 ML IV PRN (12:59)
[2017-11-23] MEDS ORDERED: OXYCODONE-ACETAMINOPHEN 5-325 MG TABLET PO PRN (12:59)
[2017-11-23] MEDS ORDERED: IPRATROPIUM/ALBUTEROL 0.5-2.5 MG/3 ML AMPUL NEB PRN (12:59)
[2017-11-23] MEDS ORDERED: ACETAMINOPHEN 325 MG TABLET PO PRN (12:59)
[2017-11-23] MEDS ORDERED: HYDROMORPHONE HCL INJ/PF 2 MG/ML AMPULE IV PRN (13:03)
[2017-11-23 14:19] LABS: CREATINE KINASE MB 0.47 ng/mL (<4.55)
[2017-11-23 14:20] LABS: TROPONIN I < 0.012 ng/mL
[2017-11-23] MEDS ORDERED: LANSOPRAZOLE 15 MG TAB.RAP.DR PO SCH (17:00)
[2017-11-23] MEDS ORDERED: DOCUSATE SODIUM 100 MG CAPSULE PO SCH (18:00)
[2017-11-23] MEDS ORDERED: CEFEPIME 2 GM/D5W RTU 2 GM/50 ML RTUPB IV SCH (22:00)
== END 2017-11-22 21:44 | disposition home or self-care (01) ==
LOC: ER 18:33
DX: T78.09XA Anaphylactic reaction due to other food products, initial encounter (principal); D57.00 Hb-SS disease with crisis, unspecified; R06.03 Acute respiratory distress; F41.9 Anxiety disorder, unspecified; R09.02 Hypoxemia; R00.0 Tachycardia, unspecified; R11.0 Nausea; R10.9 Unspecified abdominal pain; J45.909 Unspecified asthma, uncomplicated; Z88.8 Allergy status to other drugs, medicaments and biological substances
CPT/HCPCS: 36591; 99285; 96372; 96361; 96374; 96375; 36415; 82553; 82550; 84484; J1200; J0171; J2930; J2270; J3490; J2405; J7030; S0028

== ENCOUNTER 2017-11-23 08:12 | Inpatient (IN) | payer MEDICAID ==
--- NOTE | 2017-11-23 08:26 | ER Document Report ---
ED General - General Chief Complaint: Chest Wall Pain Stated Complaint: PAIN ALL OVER Time Seen by Provider: 11/23/17 08:26 Mode of Arrival: Wheelchair Information source: Patient, Parent TRAVEL OUTSIDE OF THE [place] IN LAST 30 DAYS: No - HPI Notes: 22-year-old male with a past medical history of sickle cell anemia with associated chronic pain, asthma, dvt in RUE presents today with complaints of chest pain, hypoxemia with a pulse ox of 88 per mother went home. Patient was seen in the emergency room last night for an anaphylactic reaction to coconut- containing product, mother states he was at the local fair and somehow was in contact with his substance. Patient was given 0.5 IM of epinephrine, Benadryl, Solu-Medrol, pepcid and IV fluids which stabilize patient last night. Patient was discharged with a pulse ox of 100 room air and heart rate of 99. Mother states this morning patient woke up-with sudden onset chest pain and sharp back pain. Has not tried any qhkv-rsr-muscimm medications. Pain 10 out of 10 chest. denies any fevers or chills. Patient was taking oral Coumadin for DVT in his right lower extremity as well as Lovenox, her mother Coumadin was DC'd on Saturday by pcp. Denies fevers, chills, chest pain,palpitations, nausea, vomiting, diarrhea, abdominal pain, hematuria,blurred vision, double vision, loss of vision, speech changes, LH, dizziness, syncope, headaches, wheezing, ST , URI, neck pain, weakness, bowel or bladder dysfunction, saddle anesthesia, numbness or tingling in bilateral upper or lower extremities equally, muscle paralysis, weakness in bilateral upper or lower extremities equally or rash. - Related Data Allergies/Adverse Reactions: Coconut * [Coconut] Allergy (Mild, Verified 11/22/17 18:34) transpore tape Allergy (Mild, Uncoded 11/22/17 18:34) Hives Past Medical History - General Information source: Patient, Parent - Social History Smoking Status: Unknown if Ever Smoked Family History: Reviewed & Not Pertinent, Arthritis, DM, Hypertension, Other - Sickle cell trait both parents and asthma Pulmonary Medical History: Reports: Hx Asthma, Hx Pneumonia Renal/ Medical History: Denies: Hx Peritoneal Dialysis Psychiatric Medical History: Denies: Hx Depression Past Surgical History: Reports: Hx Abdominal Surgery - Gallstones removal, Hx Cholecystectomy, Hx Orthopedic Surgery - Fluid drained from right foot, Hx Vascular Surgery - Port placement - Immunizations Immunizations up to date: Yes Hx Diphtheria, Pertussis, Tetanus Vaccination: Yes Hx Pneumococcal Vaccination: 01/15/13 Review of Systems - Review of Systems Notes: REVIEW OF SYSTEMS: CONSTITUTIONAL : Denies fever, chills, or sweats. Denies recent illness. EENT: Denies eye, ear, throat, or mouth pain or symptoms. Denies nasal or sinus congestion or discharge. Denies throat, tongue, or mouth swelling or difficulty swallowing. CARDIOVASCULAR: reports chest pain. Denies palpitations or racing or irregular heart beat. Denies ankle edema. RESPIRATORY: Denies cough, cold, or chest congestion. denies shortness of breath, difficulty breathing, or wheezing. GASTROINTESTINAL: Denies abdominal pain or distention. Denies nausea, vomiting , or diarrhea. Denies blood in vomitus, stools, or per rectum. Denies black, tarry stools. Denies constipation. GENITOURINARY: Denies difficulty urinating, painful urination, burning, frequency, blood in urine, or discharge. MUSCULOSKELETAL: Denies back or neck pain or stiffness. Denies joint pain or swelling. SKIN: Denies rash, lesions or sores. HEMATOLOGIC : Denies easy bruising or bleeding. LYMPHATIC: Denies swollen, enlarged glands. NEUROLOGICAL: Denies confusion or altered mental status. Denies passing out or loss of consciousness. Denies dizziness or lightheadedness. Denies headache. Denies weakness or paralysis or loss of use of either side. Denies problems with gait or speech. Denies sensory loss, numbness, or tingling. Denies seizures. PSYCHIATRIC: Denies anxiety or stress. Denies depression, suicidal ideation, or homicidal ideation. ALL OTHER SYSTEMS REVIEWED AND NEGATIVE. Dictation was performed using [employer] voice recognition software PHYSICAL EXAMINATION: GENERAL: Well-appearing, well-nourished and in moderate distress HEAD: Atraumatic, normocephalic. EYES: Pupils equal round and reactive to light, extraocular movements intact, sclera anicteric, conjunctiva are normal. ENT: Nares patent, oropharynx clear without exudates. Moist mucous membranes. NECK: Normal range of motion, supple without lymphadenopathy LUNGS: Breath sounds clear to auscultation bilaterally and equal. No wheezes rales or rhonchi. HEART: tachycardia, sinus and rhythm without murmurs. Costochondritis on palpation. Patient states though he also has another chest pain that is deeper. ABDOMEN: Soft, nontender, nondistended abdomen. No guarding, no rebound. No masses appreciated. Musculoskeletal: Normal range of motion, no pitting or edema. No cyanosis. NEUROLOGICAL: Cranial nerves grossly intact. Normal speech, normal gait. Normal sensory, motor exams PSYCH: Normal mood, normal affect. SKIN: Warm, Dry, normal turgor, no rashes or lesions noted. Physical Exam - Vital signs Vitals: Temp Pulse Resp BP Pulse Ox 97.8 F 108 H 20 157/103 H 92 11/23/17 08:14 11/23/17 08:14 11/23/17 08:14 11/23/17 08:14 11/23/17 08:14 Course - Re-evaluation Re-evalutation: 11/23/17 13:01 22-year-old male presents today with complaints of sudden onset chest pain that started this morning. Patient is afebrile, however he remains tachycardic and requires oxygen to keep him above 92%. CBC shows patient is in sickle cell crisis as well as anemia noted decreasing hemoglobin with an elevated retic count, however he does not meet criterion for transfusion at this time. Also noted a leukocytosis 15.4 with a shift. Cardiac enzyme slightly elevated at 0.014, EKG negative for acute STEMI. Chest x-ray showed that patient's right PICC line is in the right jugular vein instead of the right subclavian vein, this cannot be used for any injections or IVs. CTA shows that patient does have a probable pneumonia versus atelectasis, I believe this to be true with a leukocytosis of 15.4. Patient was negative for PE and other concerning findings. Patient is obtaining IV hydration as well as pain control. Patient is being maintained. Patient remains slightly tachycardic he is on nasal cannula oxygen for his sickle cell crisis. Consulted with Dr. Moore, hospitalist, to have patient admitted for pneumonia and sickle cell crisis. pt started on cefepime 2mg IV after blood cultures were obtained. will keep trending his CBC for leukocytosis as well as to see if he is worsening anemia that required transfusion. Patient be admitted to the [facility] - Vital Signs Vital signs: Temp Pulse Resp BP Pulse Ox 98.3 F 125 H 24 H 159/87 H 91 L 11/23/17 15:36 11/23/17 15:38 11/23/17 15:36 11/23/17 15:36 11/23/17 15:36 - Laboratory Result Diagrams: 11/23/17 09:48 11/23/17 08:32 Laboratory results interpreted by me: 11/23/17 11/23/17 11/23/17 08:32 08:32 08:32 WBC RBC Hgb Hct MCV MCH RDW Seg Neuts % (Manual) Lymphocytes % (Manual) Abs Neuts (Manual) Retic Count (auto) Absolute Retic APTT 80.5 H Sodium 146.2 H Chloride 109 H Glucose 138 H Total Bilirubin 3.5 H Direct Bilirubin 0.7 H AST 65 H C-Reactive Protein 27.7 H Total Protein 8.8 H 11/23/17 11/23/17 09:48 09:48 WBC 15.4 H RBC 2.37 L Hgb 8.8 L Hct 24.9 L MCV 105 H MCH 37.2 H RDW 27.6 H Seg Neuts % (Manual) 83 H Lymphocytes % (Manual) 6 L Abs Neuts (Manual) 13.4 H Retic Count (auto) 9.84 H Absolute Retic 0.236 H APTT Sodium Chloride Glucose Total Bilirubin Direct Bilirubin AST C-Reactive Protein Total Protein Discharge - Discharge Clinical Impression: Sickle cell crisis, Pneumonia, Right subclavian vein thrombosis, Tachycardia, Leukocytosis, Sickle cell anemia Disposition: ADMITTED INPATIENT [facility] Unit Ad[facility]: [facility]
[2017-11-23] MEDS ORDERED: ASPIRIN 81 MG TABLET, CHEWABLE PO ONE (08:31)
[2017-11-23] MEDS ORDERED: NORMAL SALINE 1000 ML 1,000 ML IV ONE ×2 (08:51→11:02)
[2017-11-23] MEDS ORDERED: DIPHENHYDRAMINE HCL 50 MG/ML VIAL IV ONE (08:54)
[2017-11-23] MEDS ORDERED: ONDANSETRON HCL INJ/PF 4 MG/2 ML SDV IV ONE (08:54)
--- NOTE | 2017-11-23 08:58 | RADIOLOGY REPORT (SQ) ---
EXAM DESCRIPTION: CHEST SINGLE VIEW COMPLETED DATE/TIME: 11/23/2017 8:45 am REASON FOR STUDY: cp COMPARISON: CT chest 09/15/2017 Chest films 09/18/2017, 09/21/2017, 10/20/2017 EXAM PARAMETERS: NUMBER OF VIEWS: One view. TECHNIQUE: Single frontal radiographic view of the chest acquired. RADIATION DOSE: NA LIMITATIONS: None. FINDINGS: LUNGS AND PLEURA: Low lung volumes. Crowding of vascular markings without acute infiltrat e, pleural effusion, or pneumothorax. MEDIASTINUM AND HILAR STRUCTURES: No masses. Contour normal. HEART AND VASCULAR STRUCTURES: Heart normal in size. Normal vasculature. BONES: No acute findings. HARDWARE: Right PICC line is flipped up into the right jugular vein. This should not be used for pow er injection for CT. OTHER: Gaseous distention of the stomach IMPRESSION: Low lung volumes without focal infiltrates. Right PICC line has flipped, with the tip in the right jugular vein rather than and superior vena cav a. This should not be used for power injection for CT. TECHNICAL DOCUMENTATION: JOB ID: [id number] [employer]- All Rights Reserved Reading location - IP/workstation name: [email or web address]
[2017-11-23] MEDS ORDERED: HYDROMORPHONE HCL INJ/PF 2 MG/ML AMPULE IV ONE ×2 (09:10→10:20)
--- NOTE | 2017-11-23 09:10 | EKG REPORT ---
SEVERITY:- NORMAL ECG - SINUS RHYTHM : Confirmed by: Xenia Delgado 23-Nov-2017 09:09:12
[2017-11-23 09:16] LABS: ALANINE AMINOTRANSFERASE 28 U/L (21-72); ALBUMIN 4.8 g/dL (3.5-5.0); ALKALINE PHOSPHATASE 97 U/L (38-126); ANION GAP 10 (5-19); ASPARTATE AMINO TRANSFERASE 65 U/L (17-59); BILIRUBIN,DIRECT 0.7 mg/dL (0.0-0.4); BILIRUBIN,TOTAL 3.5 mg/dL (0.2-1.3); BLOOD UREA NITROGEN 12 mg/dL (7-20); CALCIUM 9.9 mg/dL (8.4-10.2); CARBON DIOXIDE 27 mmol/L (22-30); CHLORIDE 109 mmol/L (98-107); CREATINE KINASE 138 U/L (55-170); GLUCOSE 138 mg/dL (75-110); POTASSIUM 4.9 mmol/L (3.6-5.0); SODIUM 146.2 mmol/L (137-145); TOTAL PROTEIN 8.8 g/dL (6.3-8.2)
[2017-11-23 09:19] LABS: CREATINE KINASE MB 0.55 ng/mL (<4.55); TROPONIN I 0.014 ng/mL
[2017-11-23 09:31] LABS: INTERNATIONAL RATION (INR) 1.14; PROTHROMBIN TIME 15.4 SEC (11.4-15.4)
[2017-11-23 09:33] LABS: PARTIAL THROMBOPLASTIN TIME 80.5 SEC (23.5-35.8)
[2017-11-23 10:05] LABS: VENOUS BLOOD BASE EXCESS -0.2 mmol/L; VENOUS BLOOD HCO3 26.6 mmol/L (20-32); VENOUS BLOOD PCO2 54.5 mmHg (35-63); VENOUS BLOOD PH 7.31 (7.30-7.42)
[2017-11-23 10:11] LABS: HEMATOCRIT 24.9 % (37.9-51.0); HEMOGLOBIN 8.8 g/dL (13.5-17.0); MEAN CORPUSCULAR HEMOGLOBIN 37.2 pg (27.0-33.4); MEAN CORPUSCULAR HGB CONC 35.3 g/dL (32.0-36.0); MEAN CORPUSCULAR VOLUME 105 fl (80-97); PLATELET COUNT 159 10^3/uL (150-450); RED BLOOD COUNT 2.37 10^6/uL (4.35-5.55); RED CELL DISTRIBUTION WIDTH 27.6 % (11.5-14.0); WHITE BLOOD COUNT 15.4 10^3/uL (4.0-10.5)
[2017-11-23 10:47] LABS: ABSOLUTE LYMPHOCYTES# (MANUAL) 0.9 10^3/uL (0.5-4.7); ABSOLUTE MONOCYTES # (MANUAL) 1.1 10^3/uL (0.1-1.4); ABSOLUTE NEUTROPHILS# (MANUAL) 13.4 10^3/uL (1.7-8.2); BAND NEUTROPHILS % (MANUAL) 4 % (3-5); BASOPHILS % (MANUAL) 0 % (0-2); EOSINOPHILS % (MANUAL) 0 % (0-6); LYMPHOCYTES % (MANUAL) 6 % (13-45); MONOCYTES % (MANUAL) 7 % (3-13); SEGMENTED NEUTROPHILS % (MAN) 83 % (42-78); TOTAL CELLS COUNTED 100
[2017-11-23] MEDS: HYDROMORPHONE HCL INJ/PF 2 MG/ML AMPULE IV PRN ×9 (11:00→23:56)
[2017-11-23 11:02] LABS: ANISOCYTOSIS 3+; OVALOCYTES 2+; PLATELET COMMENT ADEQUATE; POIKILOCYTOSIS 1+; POLYCHROMASIA 2+; SICKLE RED CELLS 1+; TARGET CELLS SLIGHT; TOXIC GRANULATION SLIGHT; TOXIC VACUOLATION PRESENT
[2017-11-23] MEDS ORDERED: FENTANYL CITRATE INJ/PF 100 MCG/2 ML AMPUL IV ONE (11:02)
[2017-11-23 11:04] LABS: NUCLEATED RED BLOOD CELLS 10 /100 WBC (0)
[2017-11-23] MEDS ORDERED: METHYLPREDNISOLONE INJ 125 MG/2 ML SDV IV ONE (11:13)
[2017-11-23 11:44] LABS: ABSOLUTE RETICS # 0.236 10^6/uL (0.028-0.122); RETICULOCYTE COUNT (AUTO) 9.84 % (0.66-2.85)
--- NOTE | 2017-11-23 12:25 | RADIOLOGY REPORT (SQ) ---
EXAM DESCRIPTION: CTA CHEST COMPLETED DATE/TIME: 11/23/2017 11:53 am REASON FOR STUDY: sob with pain, dvt in RUE, low pulse ox COMPARISON: [address] angio chest exams since 2011, most recently 09/15/2017 TECHNIQUE: CT scan of the chest performed using helical scanning technique with dynamic intravenous contrast injection. Images reviewed with lung, soft tissue and bone windows. Reconstructed coronal and sagittal MPR images reviewed. Additional 3 dimensional post-processing performed to develop Maximal Intensity Projection images (RI P). All images stored on PACS. All CT scanners at this facility use dose modulation, iterative reconstruction, and/or weight based d osing when appropriate to reduce radiation dose to as low as reasonably achievable (ALARA). [facility]: Dose Right [facility]: CareDose [facility]: Dose Right [facility]: Teradose 4D [facility]: CirroSecure CONTRAST TYPE AND DOSE: contrast/concentration: Isovue 370.00 mg/ml; Total Contrast Delivered: 63.0 ml; Total Saline Delivered: 98.0 ml Contrast bolus adequate for pulmonary arteries and aorta. RENAL FUNCTION: Creatinine 0.65 RADIATION DOSE: CT Rad equipment meets quality standard of care and radiation dose reduction techniq ues were employed. CTDIvol: 14.3 - 23.2 mGy. DLP: 506 mGy-cm. . LIMITATIONS: None. FINDINGS: LUNGS AND PLEURA: There is minimal bibasilar atelectasis. Pneumonia could not entirely be excluded. No pleural effusions. No pneumothorax. AORTA AND GREAT VESSELS: No aneurysm. Contrast bolus not optimized for the aorta. HEART: No pericardial effusion. No significant coronary artery calcifications. PULMONARY ARTERIES: No emboli visualized in the main pulmonary arteries or the segmental branches. HILAR AND MEDIASTINAL STRUCTURES: No identified masses or abnormal nodes. HARDWARE: A right PICC line is present with the tip coursing up the right jugular UPPER ABDOMEN: Calcified tiny spleen. Clips post cholecystectomy THYROID AND OTHER SOFT TISSUES: No masses. No adenopathy. BONES: Characteristic bony changes of sickle cell. 3D MIPS: Confirm above findings. OTHER: No other significant finding. IMPRESSION: Minimal bibasilar airspace disease atelectasis versus pneumonia. No pleural effusions. No acute pulmonary emboli COMMENT: Quality ID # [id number]: Final reports with documentation of one or more dose reduction techniques (e.g., Automated exposure control, adjustment of the mA and/or kV according to patient size, use of iterative reconstruction technique) TECHNICAL DOCUMENTATION: JOB ID: [id number] [facility]- All Rights Reserved Reading location - IP/workstation name: [email or web address]
[2017-11-23] MEDS ORDERED: CEFEPIME 2 GM/D5W RTU 2 GM/50 ML RTUPB IV ONE ×2 (12:45→22:46)
[2017-11-23] MEDS ORDERED: ENOXAPARIN SODIUM INJ 30 MG/0.3 ML DISP.SYRIN SUBCUT ONE (13:44)
[2017-11-23] MEDS: OXYCODONE HCL SR 10 MG TABLET PO SCH ×2 (13:56→20:58)
[2017-11-23 14:39] LABS: APPEARANCE,URINE CLEAR; BILIRUBIN,URINE NEGATIVE (NEGATIVE); COLOR,URINE YELLOW; GLUCOSE, URINE NEGATIVE (NEGATIVE); KETONES,URINE NEGATIVE (NEGATIVE); LEUKOCYTE ESTERASE,URINE NEGATIVE (NEGATIVE); NITRITE,URINE NEGATIVE (NEGATIVE); PROTEIN,URINE NEGATIVE (NEGATIVE); URINE SPECIFIC GRAVITY 1.026; UROBILINOGEN,URINE NEGATIVE mg/dL (<2.0)
[2017-11-23] MEDS: NORMAL SALINE 1000 ML 1,000 ML IV PRN (15:07)
[2017-11-23] MEDS ORDERED: ONDANSETRON HCL INJ/PF 4 MG/2 ML SDV IV PRN (18:13)
[2017-11-23] MEDS ORDERED: NORMAL SALINE 1000 ML 1,000 ML IV PRN (18:13)
[2017-11-23] MEDS ORDERED: OXYCODONE-ACETAMINOPHEN 5-325 MG TABLET PO PRN (18:13)
[2017-11-23] MEDS ORDERED: MAG HYDROX/AL HYDROX/SIMETH SUSP 30 ML UDCUP PO PRN (18:13)
[2017-11-23] MEDS ORDERED: ACETAMINOPHEN 325 MG TABLET PO PRN (18:13)
[2017-11-23] MEDS ORDERED: IPRATROPIUM/ALBUTEROL 0.5-2.5 MG/3 ML AMPUL NEB PRN (18:13)
[2017-11-23] MEDS: PANTOPRAZOLE SODIUM 40 MG VIAL IV SCH (19:31)
[2017-11-23 20:04] LABS: CREATINE KINASE MB 0.8 ng/mL (<4.55)
[2017-11-23 20:07] LABS: TROPONIN I 0.012 ng/mL
--- NOTE | 2017-11-23 20:19 | HISTORY AND PHYSICAL E ---
History and Physical NAME: MARINO POZO : 1995 AGE: 22Y ADMITTED: 11/23/2017 ROOM: 327 CHIEF COMPLAINT: Chest pain. HISTORY OF PRESENT ILLNESS: This is a 22-year-old male with a significant history of sickle cell disease and a history of right subclavian vein thrombosis, and a history of sickle cell disease with the hemoglobin . Recently had thrombosis in the right subclavian vein. He has a Hzmzm-[id number]-Sitw in the right subclavian vein that has to be replaced next week, and chronic pain issues, currently seeing Dr. Carlos and Dr. Stanton. He basically came to the Emergency Department with a feeling of chest pain and difficulty breathing. In the Emergency Department, the patient underwent further CT angiograms to rule out PE, which is negative for any pulmonary embolism but the patient had a atelectasis and pneumonia and patient is pretty much complaining of a lot of pain, which is considered more likely a sickle cell crisis and the ER physicians are requesting to admit the patient. The patient has received IV Dilaudid and IV cefepime in the ER. When I saw the patient, the patient still was complaining for all over pain in chest, back, and legs. The patient at this point recently came yesterday in the ER because of the patient went to the fair and ate some coconut, and patient had immediate some throat tightness and difficulty breathing and abdominal cramping. Patient in the Emergency Department at this point pretty much all symptoms are resolved and patient was discharged. The patient came back again with the same problem but with a little bit different issues, and at this point it was decided to admit him to the hospital for further evaluation. PAST MEDICAL HISTORY: 1. History of sickle cell crisis. 2. History of pneumonia in the past. 3. History of subclavian vein thrombosis. 4. History of chronic pain issues. PAST SURGICAL HISTORY: 1. Cholecystectomy. 2. Orthopedic surgeries. 3. Port placement currently blocked. SOCIAL HISTORY: Never smoked, no alcohol, no history of drug abuse. FAMILY HISTORY: Noncontributory except sickle cell train in both parents, asthma. CURRENT MEDICATIONS: 1. Hydroxyurea 15 mg p.o. daily. 2. Hydrocodone 15 mg q. 6 p.r.n. 3. Folic daily. 4. Fentanyl patch 1 every 3 days. 5. Xarelto 15 mg p.o. b.i.d. ALLERGIES: Patient is allergic to . REVIEW OF SYSTEMS: As above. All other pertinent's negative. PHYSICAL EXAMINATION: VITAL SIGNS: Blood pressure is 144/94, pulse is 113, respiratory 15, oximetry is 97% on 2 liters nasal cannula. GENERAL: Patient is alert, awake, in no acute distress. HEENT: Head is normocephalic. LUIS. LUNGS: No wheezing, no rales. HEART: S1, S2 is present. ABDOMEN: Soft. Bowel sounds present. EXTREMITIES: No edema. NEUROLOGIC: The patient is nonfocal neurological moving all extremities spontaneously. A little anxious. LABORATORY DATA: WBC is 15.4, hemoglobin is 8.8, and platelet count is 159. Chemistries: Sodium was 146, potassium 4.9, BUN 23, and creatinine 0.65. Patient's lactic acid is 1.3. Total bilirubin is 3.5. AST 65, ALT 28. Cardiac enzyme is 0.014. C-reactive protein was 27.7. Albumin is 4.8. Patient's CTA was negative for any segmental or pneumonia. EKG: Normal rhythm. ASSESSMENT AND PLAN: 1. Pneumonia. 2. Sickle cell crisis. 3. Chronic pain syndrome. 4. Anemia due to the above-conditions 5. Chest pain most likely from sickle cell crisis. The plan is admit the patient to IMCU. Start the patient on IV fluids, IV pain medications, and IV antibiotics. I discussed with the mother at the bedside of the patient's current condition. Patient has a very questionable issue with pain medications, especially IV in the past. We will try to keep it more p.o. After 24 hours if patient is otherwise stable, and if the patient continues to improve, the patient here for further evaluation for this . Patient continues on anticoagulation at this point. SKIN: Patient has multiple bruises on the legs and the buttocks and the arms. DICTATING PHYSICIAN: JENNIFER PURVIS M.D. [id number] Y#: [id number] ID: [id number] JOB#: [id number] ACCT: [id number] cc:JENNIFER PURVIS M.D. >
--- NOTE | 2017-11-23 21:45 | EKG REPORT ---
SEVERITY:- ABNORMAL ECG - SINUS TACHYCARDIA PROBABLE LEFT VENTRICULAR HYPERTROPHY BORDERLINE T ABNORMALITIES, INFERIOR LEADS : Confirmed by: Xenia Delgado 23-Nov-2017 21:44:16
[2017-11-23] MEDS ORDERED: CEFEPIME 2 GM/D5W RTU 2 GM/50 ML RTUPB IV SCH (22:00)
[2017-11-23] MEDS ORDERED: LEVOFLOXACIN 500 MG/D5W RTU 500 MG/100 ML RTUPB IV SCH (22:00)
[2017-11-24] MEDS: NORMAL SALINE 1000 ML 1,000 ML IV PRN ×2 (01:27→07:10)
[2017-11-24] MEDS: HYDROMORPHONE HCL INJ/PF 2 MG/ML AMPULE IV PRN ×3 (02:21→07:08)
[2017-11-24 02:28] LABS: CREATINE KINASE MB 1.23 ng/mL (<4.55); TROPONIN I 0.014 ng/mL
[2017-11-24] MEDS ORDERED: ROCURONIUM BROMIDE INJ 50 MG/5 ML VIAL IV ONE (05:00)
[2017-11-24] MEDS ORDERED: PROPOFOL 100 ML IV ONE ×3 (05:19→07:43)
--- NOTE | 2017-11-24 05:28 | PDOC TRANSFER SUMMARY ---
General Admission Date/PCP: 11/23/17 13:06 ANDREW WILLIS Transfer Date: 11/24/17 Accepting Facility: [facility] Resuscitation Status: Full Code - Transfer Diagnosis (1) Acute chest syndrome Is this a current diagnosis for this admission?: Yes Diagnosis Summary: Patient is currently in acute chest crisis as per discussed with the clinical esthetician Dr. Carlos and suggest the patient's continues of the blood and intubated and transferred for exchange transfusions (3) Right subclavian vein thrombosis Is this a current diagnosis for this admission?: Yes Diagnosis Summary: Currently on IV antibiotic (4) Sickle cell disease with crisis Is this a current diagnosis for this admission?: Yes Diagnosis Summary: Continues IV fluid and blood product (5) Respiratory distress Is this a current diagnosis for this admission?: Yes Diagnosis Summary: Currently intubated - Transfer Medications Home Medications: Folic Acid [Folvite 1 mg Tablet] 1 mg PO DAILY 09/21/17 Hydroxyurea [Hydrea 500 mg Capsule] 1,500 mg PO MOWEFR@1000 09/21/17 Enoxaparin Sodium [Lovenox Inj 60 Mg/0.6 Ml Disp.Syrin] 60 mg SUBCUT BID Fentanyl [Duragesic 75 Mcg/Hr Transdermal Patch] 1 each TD Q3DAYS 11/23/17 Hydroxyurea [Hydrea 500 mg Capsule] 1,000 mg PO SUTUTHSA@1000 11/23/17 Oxycodone HCl [Oxy-Ir 5 mg Tablet] 5 mg PO Q4HP PRN 11/23/17 Transfer Medications: Current Medications Acetaminophen (Tylenol 325 Mg Tablet) 650 mg PO Q4HP PRN PRN Reason: FEVER >101 Stop: 12/23/17 18:12 Al Hydrox/Mg Hydrox/Simethicone (Maalox Plus Susp 30 Udcup) 15 ml PO Q6HP PRN PRN Reason: HEARTBURN Stop: 12/23/17 18:12 Albuterol/Ipratropium (Duoneb 3 Ml Ampul) 3 ml NEB RTQ6HP PRN PRN Reason: SHORTNESS OF BREATH Stop: 12/23/17 18:12 Docusate Sodium (Colace 100 Mg Capsule) 100 mg PO BID [facility] Stop: 12/24/17 09:59 Enoxaparin Sodium (Lovenox Inj 60 Mg/0.6 Ml Disp.Syrin) 60 mg SUBCUT BID [facility] Stop: 12/24/17 09:59 Fentanyl (Duragesic 75 Mcg/Hr Transdermal Patch) 1 each TD Q3DAYS [facility] Stop: 12/03/17 09:59 Folic Acid (Folvite 1 Mg Tablet) 1 mg PO DAILY [facility] Stop: 12/24/17 09:59 Hydromorphone HCl (Dilaudid Inj/Pf 2 Mg/Ml Ampule) 1 mg IV Q1HP PRN PRN Reason: SEVERE PAIN Stop: 11/30/17 12:41 Last Admin: 11/23/17 17:10 Dose: 1 mg Hydromorphone HCl (Dilaudid Inj/Pf 2 Mg/Ml Ampule) 2 mg IV Q2HP PRN PRN Reason: FOR PAIN SCALE 3-4 Stop: 11/30/17 18:18 Last Admin: 11/24/17 04:20 Dose: 2 mg Hydroxyurea (Hydrea 500 Mg Capsule) 1,000 mg PO SUTUTHSA@1000 [facility] Stop: 12/24/17 09:59 Hydroxyurea (Hydrea 500 Mg Capsule) 1,500 mg PO MOWEFR@1000 [facility] Stop: 12/25/17 09:59 Sodium Chloride (Nacl 0.9% 1000 Ml Iv Soln) 1,000 mls @ 150 mls/hr IV CONTINUOUS PRN PRN Reason: THIS MED IS NOT "PRN" Stop: 12/23/17 14:58 Last Admin: 11/24/17 01:27 Dose: 1,000 ml Cefepime HCl (Maxipime Rtu 2 Gm-D5w 50 Ml Premix Bag) 2 gm in 50 mls @ 100 mls/ hr IV Q12 [facility] Stop: 11/30/17 21:59 Last Admin: 11/23/17 22:55 Dose: 50 ml Levofloxacin/Dextrose (Levaquin Rtu 500mg/D5w 100 Ml Premix) 500 mg in 100 mls @ 100 mls/hr IV QHS [facility] Stop: 11/30/17 21:59 Last Admin: 11/23/17 21:00 Dose: 100 ml Sodium Chloride (Nacl 0.9% 1000 Ml Iv Soln) 1,000 mls @ 150 mls/hr IV CONTINUOUS PRN PRN Reason: THIS MED IS NOT "PRN" Stop: 12/23/17 18:12 Ondansetron HCl (Zofran Inj/Pf 4 Mg/2 Ml Sdv) 4 mg IV Q4HP PRN PRN Reason: FOR NAUSEA/VOMITING Stop: 12/23/17 18:12 Oxycodone HCl (Oxycontin Sr 10 Mg Tablet) 5 mg PO Q12 [facility] Stop: 11/30/17 13:44 Last Admin: 11/23/17 20:58 Dose: 5 mg Oxycodone/Acetaminophen (Percocet 5-325 Mg Tablet) 1 tab PO Q4HP PRN PRN Reason: FOR PAIN SCALE 1-3 Stop: 11/30/17 18:12 Pantoprazole Sodium (Protonix Iv Inj 40 Mg Vial) 40 mg IV Q12A [facility] Stop: 11/26/17 17:59 Last Admin: 11/23/17 19:31 Dose: 40 mg - Allergies Allergies/Adverse Reactions: Coconut * [Coconut] Allergy (Mild, Verified 11/22/17 18:34) transpore tape Allergy (Mild, Uncoded 11/22/17 18:34) Hives Hospital Course Hospital Course: This is a 22-year-old male present in the ER complaining of chest pain in the back pain with history of sickle cell disease and patients underwent for the CT angiogram due to the recent history of the subclavian vein thrombosis and currently on Lovenox treatment which is negative and suggest possible patient have some pneumonia in the lung and patient was sickle cell crisis and admitting in the hospital for further IV fluid and IV pain management Patient hemoglobin was 8.8 and other blood work is stable on the presentation Admitting in the hospitals patients more worsening the symptoms patient's still persistent chest pain in the back pain and patient's O2 sat is dropped to up to 60-70% and at this point reevaluate the patient and the discussed with the clinical esthetician which patients currently for Dr. Carlos and suggest the patient have this chest crisis and need a oxygens transfusions in patients to transfer to the tertiary center Patient also used to see at [facility] and had with the l episode 3 times in the past the last 5 years back which patients with acute chest crisis and require extensive transfusions Patient's at this point transfer to the ICU intubated and consult the local pulmonary and discussed with the escrow agent at [facility] accept Very extensive discussed with the mother was in ICU and coordinate all care Physical Exam Vital Signs: Temp Pulse Resp BP Pulse Ox 98.6 F 125 H 20 142/89 H 100 11/24/17 03:59 11/24/17 03:59 11/23/17 23:22 11/24/17 03:59 11/24/17 03:59 Intake & Output 11/22/17 11/23/17 11/24/17 06:59 06:59 06:59 Intake Total 1280 Output Total 1300 Balance -20 Exam: Currently intubated under sedation's Eye exam: PRESENT: PERRLA Mouth exam: PRESENT: neck supple Respiratory exam: PRESENT: decreased breath sounds Cardiovascular exam: PRESENT: +S1, +S2 GI/Abdominal exam: PRESENT: normal bowel sounds, soft Skin exam: PRESENT: dry Results Laboratory Results: 11/23/17 14:10 Urine Color YELLOW Urine Appearance CLEAR Urine pH 6.0 Ur Specific [place] 1.026 Urine Protein NEGATIVE Urine Glucose (UA) NEGATIVE Urine Ketones NEGATIVE Urine Blood SMALL H Urine Nitrite NEGATIVE Ur Leukocyte Esterase NEGATIVE Urine WBC (Auto) 1 Urine RBC (Auto) 0 11/23/17 11/23/17 11/24/17 19:26 19:26 01:45 Creatine Kinase 133 132 CK-MB (CK-2) 0.80 Troponin I 0.012 11/24/17 01:45 Creatine Kinase CK-MB (CK-2) 1.23 Troponin I 0.014 Impressions: Chest X-Ray 11/23/17 08:32 IMPRESSION: Low lung volumes without focal infiltrates. Right PICC line has flipped, with the tip in the right jugular vein rather than and superior vena cava. This should not be used for power injection for CT. Chest/Abdomen CTA 11/23/17 08:54 IMPRESSION: Minimal bibasilar airspace disease atelectasis versus pneumonia. No pleural effusions. No acute pulmonary emboli Plan Time Spent: Greater than 30 Minutes - Patient is a transfer [facility] Discussed with the clinical esthetician Dr. Carlos also very extensive discussions with the mother and also discussed with escrow agent
[2017-11-24] MEDS ORDERED: NORMAL SALINE 250 ML IV PRN ×2 (05:34)
--- NOTE | 2017-11-24 05:54 | PROGRESS NOTE E ---
Progress Note NAME: MARINO POZO : 1995 AGE: 22Y DATE: 11/24/2017 ROOM: 612 SUBJECTIVE: This is a 22-year-old male, basically admitted this afternoon because of sickle cell crisis, chest pain, back pain. The patient was started on IV fluid and IV pain medication. The patient also underwent CT angiogram in the morning and hemoglobin was 8.8. It was all stable. The patient's symptoms were worsening and the nurse was called around 4 o'clock this morning and the patient required nonrebreather. When I came to the floor and I reevaluated the patient, the patient was nonrebreather 100%. As per discussion with *------*, the patient's regional marketing director, suggested the patient probably in acute crisis, required transfusion and suggested patient transfer to the ICU, intubate, give blood and then transfer to the [facility]. Discussed with the mother, who agreed with all the plans. The patient at this point is transferred to the ICU and intubated, consulted pulmonary here locally while the patient is here. At this point, discussed with the six sigma project manager that [facility] has accepted the patient over there. I had a very extensive discussion with the mother regarding the patient's current condition with the critical care and transfer to [facility]. Again, the patient was reexamined and all care coordinated and discussed with the mother. More than 1-1/2 hours spent in the ICU. DICTATING PHYSICIAN: JENNIFER PURVIS M.D. [id number] [facility]#: [id number] ID: [id number] JOB#: [id number] ACCT: [id number] cc: >
--- NOTE | 2017-11-24 06:56 | PDOC CONSULTATION ---
Consultation Consult Date: 11/24/17 Attending physician:: TRINA MOHAMUD Consult reason:: Central line insertion History of Present Illness Admission Date/PCP: 11/23/17 13:06 ANDREW WILLIS History of Present Illness: MARINO POZO is a 22 year old male admitted to the ICU vaso-0cclusive sickle cell crisis. He has poor peripheral veins and needs IV access. I have been consulted for a central line insertion. Past Medical History Pulmonary Medical History: Reports: Asthma, Pneumonia Psychiatric Medical History: Denies: Depression Hematology: Reports: Anemia, Sickle Cell Disease, Bleeding Tendencies Past Surgical History Past Surgical History: Reports: Cholecystectomy, Orthopedic Surgery - Fluid drained from right foot, Vascular Surgery - Port placement Social History Smoking Status: Unknown if Ever Smoked Frequency of Alcohol Use: Rare Hx Recreational Drug Use: No Drugs: None Hx Prescription Drug Abuse: No - Advance Directive Resuscitation Status: Full Code Family History Family History: Reviewed & Not Pertinent, Arthritis, DM, Hypertension, Other - Sickle cell trait both parents and asthma Parental Family History Reviewed: Yes Children Family History Reviewed: Yes Sibling(s) Family History Reviewed.: Yes Medication/Allergy Home Medications: Folic Acid [Folvite 1 mg Tablet] 1 mg PO DAILY 09/21/17 Hydroxyurea [Hydrea 500 mg Capsule] 1,500 mg PO MOWEFR@1000 09/21/17 Enoxaparin Sodium [Lovenox Inj 60 Mg/0.6 Ml Disp.Syrin] 60 mg SUBCUT BID Fentanyl [Duragesic 75 Mcg/Hr Transdermal Patch] 1 each TD Q3DAYS 11/23/17 Hydroxyurea [Hydrea 500 mg Capsule] 1,000 mg PO SUTUTHSA@1000 11/23/17 Oxycodone HCl [Oxy-Ir 5 mg Tablet] 5 mg PO Q4HP PRN 11/23/17 Allergies/Adverse Reactions: Coconut * [Coconut] Allergy (Mild, Verified 11/22/17 18:34) transpore tape Allergy (Mild, Uncoded 11/22/17 18:34) Hives Review of Systems ROS unobtainable: Due to endotracheal tube Physical Exam Vital Signs: Temp Pulse Resp BP Pulse Ox 98.6 F 125 H 20 142/89 H 100 11/24/17 03:59 11/24/17 03:59 11/23/17 23:22 11/24/17 03:59 11/24/17 05:37 Intake & Output 11/22/17 11/23/17 11/24/17 06:59 06:59 06:59 Intake Total 1280 Output Total 1300 Balance -20 Weight 62.8 kg General appearance: PRESENT: other - intubated on a ventilator Head exam: PRESENT: atraumatic, normocephalic Respiratory exam: PRESENT: clear to auscultation ethan Cardiovascular exam: PRESENT: +S1, +S2 GI/Abdominal exam: PRESENT: normal bowel sounds, soft Neurological exam: PRESENT: other - sedated; moves extremities to pain Results Laboratory Results: 11/23/17 14:10 Urine Color YELLOW Urine Appearance CLEAR Urine pH 6.0 Ur Specific [place] 1.026 Urine Protein NEGATIVE Urine Glucose (UA) NEGATIVE Urine Ketones NEGATIVE Urine Blood SMALL H Urine Nitrite NEGATIVE Ur Leukocyte Esterase NEGATIVE Urine WBC (Auto) 1 Urine RBC (Auto) 0 11/23/17 11/23/17 11/24/17 19:26 19:26 01:45 Creatine Kinase 133 132 CK-MB (CK-2) 0.80 Troponin I 0.012 11/24/17 01:45 Creatine Kinase CK-MB (CK-2) 1.23 Troponin I 0.014 Impressions: Chest X-Ray 11/23/17 08:32 IMPRESSION: Low lung volumes without focal infiltrates. Right PICC line has flipped, with the tip in the right jugular vein rather than and superior vena cava. This should not be used for power injection for CT. Chest/Abdomen CTA 11/23/17 08:54 IMPRESSION: Minimal bibasilar airspace disease atelectasis versus pneumonia. No pleural effusions. No acute pulmonary emboli Assessment & Plan - Diagnosis (1) Phlebosclerosis Is this a current diagnosis for this admission?: Yes (2) Sickle cell crisis Is this a current diagnosis for this admission?: Yes - Plan Summary Plan Summary: A consent was obtained from the mother for a central line insertion - he has had this before.
--- NOTE | 2017-11-24 07:00 | PDOC PROGRESS REPORT ---
Bedside Procedure - History of Present Illness Indication for Procedure: phlebosclerosis - Central Line Right Internal jugular Consent obtained: Yes Central line pre-insertion: Sterile PPE donned, Chloraprep applied, Sterile drapes applied Central line size (Fr.): 7 Central line lumen type: Triple Anesthetic type: 1% Lidocaine mL's of anesthesia: 4 Ultrasound guided: Yes - real-time CM at insertion site: 16 Line secured with sutures: Yes Central line post-insertion: Blood return from lumens, Biopatch applied, Sutured , Sterile dressing applied, Position confirmed w/ CXR Number of attempts: 1 Complications: No Notes: 11/24/17 06:58 the initial intravenous length of the line was 18cm; there was kinking of the distal 2cm of the line in the vein after cxray confirmation and so the line was withdrawn 2cm and anchored at the 16cm félix with no kink.
[2017-11-24] MEDS: PANTOPRAZOLE SODIUM 40 MG VIAL IV SCH (07:11)
--- NOTE | 2017-11-24 07:16 | RADIOLOGY REPORT (SQ) ---
EXAM DESCRIPTION: CHEST SINGLE VIEW CLINICAL HISTORY: ET Tube Placement, Central Line, NG placed COMPARISON: 11/23/2017 FINDINGS: Single frontal view of the chest. Interval placement of right IJ central venous catheter with tip in the SVC on final imaging. Right arm PICC with tip in the right IJ is unchanged. Endotracheal tube with tip at the level of the clavicles. NG tube with tip below the diaphragm. Leads overlie the chest. Low lung volumes. Interval increase in bilateral perihilar opacities. No pneumothorax. Possible small left pleural effusion. No acute osseous abnormalities. Upper abdominal soft tissues are unremarkable. IMPRESSION: 1. Right IJ central venous catheter with tip overlying the SVC on final image. Unchanged right arm PICC with tip in the right IJ. 2. Endotracheal tube and NG tube in appropriate position. 3. Significant interval increase in bilateral alveolar and interstitial opacities. This could be related to pulmonary edema or bilateral pneumonia. Continued follow-up recommended.
[2017-11-24 07:34] LABS: ARTERIAL BLOOD BASE EXCESS -0.6 mmol/L; ARTERIAL BLOOD FIO2 40%; ARTERIAL BLOOD H2CO3 1.46 mmol/L (1.05-1.35); ARTERIAL BLOOD HCO3 25.7 mmol/L (20-26); ARTERIAL BLOOD O2 SATURATION 96.9 % (94-98); ARTERIAL BLOOD PCO2 48.5 mmHg (35-45); ARTERIAL BLOOD PH 7.34 (7.35-7.45); ARTERIAL BLOOD PO2 96.3 mmHg (80-100); ARTERIAL BLOOD TOTAL CO2 27.2 mmol/L (23-27)
[2017-11-24 08:17] VITALS: BP 139/99
[2017-11-24] MEDS ORDERED: HYDROXYUREA 500 MG CAPSULE PO SCH (10:00)
[2017-11-24] MEDS ORDERED: DOCUSATE SODIUM 100 MG CAPSULE PO SCH (10:00)
[2017-11-24] MEDS ORDERED: ENOXAPARIN SODIUM INJ 60 MG/0.6 ML DISP.SYRIN SUBCUT SCH (10:00)
[2017-11-24] MEDS ORDERED: FOLIC ACID 1 MG TABLET PO SCH (10:00)
[2017-11-25] MEDS ORDERED: HYDROXYUREA 500 MG CAPSULE PO SCH (10:00)
[2017-11-26] MEDS ORDERED: FENTANYL 75 MCG/HR PATCH.TD72 TD SCH (10:00)
== END 2017-11-24 07:50 | disposition short-term general hospital (02) | DRG 812 ==
LOC: ER 08:12 → EH 13:06 → 3S 15:26 → ICU 11-24 05:08
PROVIDERS: ADMIT Family Medicine; ATTEND Internal Medicine Geriatric Medicine
PROC: 3E0F73Z Introduction of Anti-inflammatory into Respiratory Tract, Via Natural or Artificial Opening (ICD-10-PCS; 2017-11-23)
PROC: 05HM33Z Insertion of Infusion Device into Right Internal Jugular Vein, Percutaneous Approach (ICD-10-PCS; 2017-11-23)
PROC: 5A1935Z Respiratory Ventilation, Less than 24 Consecutive Hours (ICD-10-PCS; principal; 2017-11-24)
PROC: 0BH17EZ Insertion of Endotracheal Airway into Trachea, Via Natural or Artificial Opening (ICD-10-PCS; 2017-11-24)
PROC: 30233N1 Transfusion of Nonautologous Red Blood Cells into Peripheral Vein, Percutaneous Approach (ICD-10-PCS; 2017-11-24)
DX: D57.01 Hb-SS disease with acute chest syndrome (principal); I82.B11 Acute embolism and thrombosis of right subclavian vein; R06.03 Acute respiratory distress; J45.909 Unspecified asthma, uncomplicated; G89.4 Chronic pain syndrome; Z79.899 Other long term (current) drug therapy; Z91.09 Other allergy status, other than to drugs and biological substances; Z90.49 Acquired absence of other specified parts of digestive tract; Z82.61 Family history of arthritis; Z83.3 Family history of diabetes mellitus; Z82.49 Family history of ischemic heart disease and other diseases of the circulatory system; Z83.2 Family history of diseases of the blood and blood-forming organs and certain disorders involving the immune mechanism; Z82.5 Family history of asthma and other chronic lower respiratory diseases
CPT/HCPCS: 31500; 36415; 36430; 71045; 71275; 80053; 81001; 82550; 82553; 82803; 83605; 84484; 85025; 85045; 85610; 85730; 86140; 86850; 86900; 86901; 86902; 86920; 87040; 87086; 87205; 93005; 93010; 94002; 96361; 96374; 96375; 96376; 99285; C1751; J0692; J1170; J1200; J1650; J1956; J2405; J2704; J2930; J3010; J3490; J7030; P9016; S0164

== ENCOUNTER 2017-12-27 18:39 | Emergency (ER) | payer MEDICAID ==
--- NOTE | 2017-12-27 19:39 | ER Document Report ---
ED General - General Chief Complaint: Sickle Cell Crisis Stated Complaint: ARM PAIN Time Seen by Provider: 12/27/17 19:29 Mode of Arrival: Ambulatory Information source: Patient Notes: Patient is a 22-year-old male who presents to the emergency department with complaints of possible sickle cell crisis. Patient reports that he is having bilateral knee pain and this is typical of when he is in crisis. Patient has a medical history of sickle cell and asthma. Patient reports that his last sickle cell crisis was approximately 2 months ago. Patient denies any nausea fever or diarrhea. Patient additionally reports that he had a port in his right arm that was removed approximately 2 months ago due to a clot. TRAVEL OUTSIDE OF THE [place] IN LAST 30 DAYS: No - Related Data Allergies/Adverse Reactions: Coconut * [Coconut] Allergy (Mild, Verified 12/27/17 18:41) transpore tape Allergy (Mild, Uncoded 12/27/17 18:41) Hives Past Medical History - General Information source: Patient - Social History Smoking Status: Never Smoker Family History: Reviewed & Not Pertinent, Arthritis, DM, Hypertension, Other - Sickle cell trait both parents and asthma Pulmonary Medical History: Reports: Hx Asthma, Hx Pneumonia Renal/ Medical History: Denies: Hx Peritoneal Dialysis Psychiatric Medical History: Denies: Hx Depression Past Surgical History: Reports: Hx Abdominal Surgery - Gallstones removal, Hx Cholecystectomy, Hx Orthopedic Surgery - Fluid drained from right foot, Hx Vascular Surgery - Port placement - Immunizations Immunizations up to date: Yes Hx Diphtheria, Pertussis, Tetanus Vaccination: Yes Hx Pneumococcal Vaccination: 01/15/13 Review of Systems - Review of Systems Constitutional: See HPI EENT: No symptoms reported Cardiovascular: No symptoms reported Respiratory: No symptoms reported Gastrointestinal: No symptoms reported Genitourinary: No symptoms reported Male Genitourinary: No symptoms reported Musculoskeletal: See HPI Skin: No symptoms reported Hematologic/Lymphatic: No symptoms reported Neurological/Psychological: No symptoms reported Physical Exam - Vital signs Vitals: Temp Pulse Resp BP Pulse Ox 99.0 F 101 H 18 129/94 H 99 12/27/17 18:43 12/27/17 18:43 12/27/17 18:43 12/27/17 18:43 12/27/17 18:43 - Notes Notes: PHYSICAL EXAMINATION: GENERAL: Well-appearing, well-nourished and in no acute distress. HEAD: Atraumatic, normocephalic. EYES: Pupils equal round and reactive to light, extraocular movements intact, conjunctiva are normal. ENT: Nares patent, oropharynx clear without exudates. Moist mucous membranes. NECK: Normal range of motion, supple without lymphadenopathy LUNGS: Breath sounds clear to auscultation bilaterally and equal. No wheezes rales or rhonchi. HEART: Regular rate and rhythm without murmurs ABDOMEN: Soft, nontender, nondistended abdomen. No guarding, no rebound. No masses appreciated. Musculoskeletal: Normal range of motion, no pitting or edema. No cyanosis. NEUROLOGICAL: Cranial nerves grossly intact. Normal speech, normal gait. Normal sensory, motor exams PSYCH: Normal mood, normal affect. SKIN: Warm, Dry, normal turgor, no rashes or lesions noted. Course - Re-evaluation Re-evalutation: 12/27/17 19:39 22-year-old nontoxic appearing male with known history of sickle cell disease. Will initiate labs at this time. Patient does not appear to be in any acute distress and denies any recent illness to include fever or shortness of breath or cough, unlikely infectious source, unlikely patient has a pneumonia as lung sounds are clear bilaterally. Will treat patient for pain as well as provide IV hydration. Patient reports that he will need to have Zofran and Benadryl with his pain medications as he typically has a histamine response with any IV narcotics. Upon reevaluation, patient states that the pain medications provided did help although he is requesting a second dose as he states that his pain is returning. Patient does have an elevated reticulocyte count. Patient states that he is feeling well enough for discharge after the second dose of pain medications. - Vital Signs Vital signs: Temp Pulse Resp BP Pulse Ox 98.6 F 93 16 121/88 H 96 12/27/17 23:50 12/27/17 23:50 12/27/17 23:50 12/27/17 23:50 12/27/17 23:50 - Laboratory Result Diagrams: 12/27/17 20:09 12/27/17 21:02 Laboratory results interpreted by me: 12/27/17 12/27/17 20:09 21:02 RBC 3.47 L Hgb 11.8 L Hct 34.8 L MCV 100 H MCH 34.0 H RDW 26.5 H Retic Count (auto) 7.78 H Absolute Retic 0.270 H Sodium 147.4 H Total Bilirubin 1.6 H Direct Bilirubin 0.5 H ALT 20 L Alkaline Phosphatase 156 H Total Protein 8.8 H Discharge - Discharge Clinical Impression: Sickle cell crisis Condition: Stable Disposition: HOME, SELF-CARE Instructions: Sickle Cell Crisis ([facility]) Additional Instructions: Please follow-up with Dr. Jeffries in the next 3-5 days for a recheck. Return to the emergency department if you develop worsening pain, fever, or any other symptoms that are concerning to.
[2017-12-27 20:31] LABS: HEMATOCRIT 34.8 % (37.9-51.0); HEMOGLOBIN 11.8 g/dL (13.5-17.0); MEAN CORPUSCULAR HGB CONC 33.9 g/dL (32.0-36.0); MEAN CORPUSCULAR VOLUME 100 fl (80-97); PLATELET COUNT 282 10^3/uL (150-450); RED BLOOD COUNT 3.47 10^6/uL (4.35-5.55); RED CELL DISTRIBUTION WIDTH 26.5 % (11.5-14.0); RETICULOCYTE COUNT (AUTO) 7.78 % (0.66-2.85); WHITE BLOOD COUNT 5.6 10^3/uL (4.0-10.5)
[2017-12-27] MEDS ORDERED: HYDROMORPHONE HCL INJ/PF 2 MG/ML AMPULE IV ONE ×2 (21:00→22:34)
[2017-12-27] MEDS ORDERED: DIPHENHYDRAMINE HCL 50 MG/ML VIAL IV ONE (21:00)
[2017-12-27] MEDS ORDERED: ONDANSETRON HCL INJ/PF 4 MG/2 ML SDV IV ONE (21:00)
[2017-12-27] MEDS ORDERED: NORMAL SALINE 1000 ML 1,000 ML IV ONE ×2 (21:01)
[2017-12-27 21:11] LABS: ABSOLUTE MONOCYTES # (MANUAL) 0.6 10^3/uL (0.1-1.4); ABSOLUTE NEUTROPHILS# (MANUAL) 2.7 10^3/uL (1.7-8.2); BASOPHILS % (MANUAL) 0 % (0-2); EOSINOPHILS % (MANUAL) 5 % (0-6); LYMPHOCYTES % (MANUAL) 35 % (13-45); MONOCYTES % (MANUAL) 11 % (3-13); NUCLEATED RED BLOOD CELLS 7 /100 WBC (0); SEGMENTED NEUTROPHILS % (MAN) 49 % (42-78); TOTAL CELLS COUNTED 100
[2017-12-27 21:12] LABS: TOXIC GRANULATION SLIGHT
[2017-12-27 21:13] LABS: ANISOCYTOSIS 3+; PLATELET COMMENT ADEQUATE; POIKILOCYTOSIS 1+; SICKLE RED CELLS 1+; TARGET CELLS SLIGHT
[2017-12-27 21:34] LABS: ALANINE AMINOTRANSFERASE 20 U/L (21-72); ALBUMIN 4.7 g/dL (3.5-5.0); ALKALINE PHOSPHATASE 156 U/L (38-126); ANION GAP 14 (5-19); ASPARTATE AMINO TRANSFERASE 48 U/L (17-59); BILIRUBIN,DIRECT 0.5 mg/dL (0.0-0.4); BILIRUBIN,TOTAL 1.6 mg/dL (0.2-1.3); BLOOD UREA NITROGEN 13 mg/dL (7-20); CALCIUM 9.6 mg/dL (8.4-10.2); CARBON DIOXIDE 27 mmol/L (22-30); CHLORIDE 106 mmol/L (98-107); GLUCOSE 90 mg/dL (75-110); SODIUM 147.4 mmol/L (137-145); TOTAL PROTEIN 8.8 g/dL (6.3-8.2)
[2017-12-27 23:59] VITALS: BP 121/88
== END 2017-12-27 23:58 | disposition home or self-care (01) ==
LOC: ER 18:39
DX: D57.00 Hb-SS disease with crisis, unspecified (principal); M25.562 Pain in left knee; M25.561 Pain in right knee; Z90.49 Acquired absence of other specified parts of digestive tract
CPT/HCPCS: 99284; 96361; 96374; 96375; 36415; 85025; 85045; 80053; J1200; J1170; J2405; J7030

== ENCOUNTER 2017-12-29 20:53 | Emergency (ER) | payer MEDICAID ==
[2017-12-29] MEDS ORDERED: DIPHENHYDRAMINE HCL 50 MG/ML VIAL IV ONE (21:43)
[2017-12-29] MEDS ORDERED: ONDANSETRON HCL INJ/PF 4 MG/2 ML SDV IV ONE (21:43)
[2017-12-29] MEDS ORDERED: NORMAL SALINE 1000 ML 1,000 ML IV ONE (21:43)
[2017-12-29] MEDS ORDERED: HYDROMORPHONE HCL INJ/PF 2 MG/ML AMPULE IV ONE ×2 (21:43→23:31)
--- NOTE | 2017-12-29 22:22 | ER Document Report ---
ED General - General Chief Complaint: Sickle Cell Crisis Stated Complaint: KNEE PAIN Time Seen by Provider: 12/29/17 21:25 Mode of Arrival: Ambulatory Information source: Patient Notes: Patient is a 22-year-old male with history of sickle cell. Patient presents today with complaint of bilateral knee pain and low back pain. Patient reports that these are his traditional symptoms when he has a sickle cell crisis. Patient was seen in this emergency department 2 days ago for same symptoms and was discharged as patient's pain was well controlled and reticulocyte count was only mildly elevated at that time. Patient denies any nausea vomiting diarrhea or fevers. Patient denies any other past medical history. TRAVEL OUTSIDE OF THE [place] IN LAST 30 DAYS: No - Related Data Allergies/Adverse Reactions: Coconut * [Coconut] Allergy (Mild, Verified 12/27/17 18:41) transpore tape Allergy (Mild, Uncoded 12/27/17 18:41) Hives Past Medical History - General Information source: Patient - Social History Smoking Status: Current Some Day Smoker Family History: Reviewed & Not Pertinent, Arthritis, DM, Hypertension, Other - Sickle cell trait both parents and asthma Pulmonary Medical History: Reports: Hx Asthma, Hx Pneumonia Renal/ Medical History: Denies: Hx Peritoneal Dialysis Psychiatric Medical History: Denies: Hx Depression Past Surgical History: Reports: Hx Abdominal Surgery - Gallstones removal, Hx Cholecystectomy, Hx Orthopedic Surgery - Fluid drained from right foot, Hx Vascular Surgery - Port placement - Immunizations Immunizations up to date: Yes Hx Diphtheria, Pertussis, Tetanus Vaccination: Yes Hx Pneumococcal Vaccination: 01/15/13 Review of Systems - Review of Systems Constitutional: No symptoms reported EENT: No symptoms reported Cardiovascular: No symptoms reported Respiratory: No symptoms reported Gastrointestinal: No symptoms reported Genitourinary: No symptoms reported Male Genitourinary: No symptoms reported Musculoskeletal: Back pain, Other - Bilateral knee pain Skin: No symptoms reported Hematologic/Lymphatic: No symptoms reported Neurological/Psychological: No symptoms reported Physical Exam - Vital signs Vitals: Temp Pulse Resp BP Pulse Ox 99.0 F 100 18 138/92 H 98 12/29/17 21:11 12/29/17 21:11 12/29/17 21:11 12/29/17 21:11 12/29/17 21:11 - Notes Notes: PHYSICAL EXAMINATION: GENERAL: Well-appearing, well-nourished and in no acute distress. HEAD: Atraumatic, normocephalic. EYES: Pupils equal round and reactive to light, extraocular movements intact, sclera anicteric, conjunctiva are normal. ENT: Nares patent, oropharynx clear without exudates. Moist mucous membranes. NECK: Normal range of motion, supple without lymphadenopathy LUNGS: Breath sounds clear to auscultation bilaterally and equal. No wheezes rales or rhonchi. HEART: Regular rate and rhythm without murmurs ABDOMEN: Soft, nontender, nondistended abdomen. No guarding, no rebound. No masses appreciated. Musculoskeletal: Normal range of motion, no pitting or edema. No cyanosis. NEUROLOGICAL: Cranial nerves grossly intact. Normal speech, normal gait. Normal sensory, motor exams PSYCH: Normal mood, normal affect. SKIN: Warm, Dry, normal turgor, no rashes or lesions noted. Course - Re-evaluation Re-evalutation: 22-year-old male seen in this department 2 days ago for similar symptoms. Reticulocyte count was mildly elevated at the time. Patient states that pain has persisted. Will check labs and medicate for pain and hydration. Patient appears well and does not appear toxic or in any acute distress. Patient's labs are unchanged from his visit 2 days ago. Patient has mildly elevated reticulocyte count. After several doses of pain medication, patient states he feels well enough to go home. I did offer to call his primary care physician and patient declines. Patient verbalizes understanding close follow- up with his primary care physician. Patient understands return precautions for emergency department as outlined in his discharge paperwork. - Vital Signs Vital signs: Temp Pulse Resp BP Pulse Ox 99.0 F 100 14 122/92 H 98 12/29/17 21:11 12/29/17 21:11 12/30/17 02:02 12/30/17 02:03 12/30/17 02:02 - Laboratory Result Diagrams: 12/29/17 22:00 12/29/17 22:00 Laboratory results interpreted by me: 12/29/17 12/29/17 12/30/17 22:00 22:00 00:56 RBC 3.66 L Hgb 12.7 L Hct 37.2 L MCV 102 H MCH 34.7 H RDW 28.9 H Retic Count (auto) 8.13 H Absolute Retic 0.297 H Sodium 148.2 H Chloride 108 H Total Bilirubin 2.0 H Direct Bilirubin 0.5 H ALT 19 L Alkaline Phosphatase 159 H Total Protein 8.8 H Urine Protein 30 H Urine Ketones TRACE H Urine Urobilinogen 2.0 H Discharge - Discharge Clinical Impression: Sickle cell crisis, Pain Condition: Stable Disposition: HOME, SELF-CARE Additional Instructions: Sickle Cell Crisis You have "sickle cell crisis." Sickle cell disease is caused by abnormal hemoglobin. This hemoglobin can deform red blood cells into a sickle shape. These abnormal blood cells can block blood vessels. This causes the pain of sickle cell crisis. Sickle cell crisis can occur any time. But attacks are more likely with acute infection, dehydration, or altitude change. A crisis usually causes pain in the legs, back, abdomen, and chest. Sometimes the pain may ease and return later. The usual treatment is oxygen, pain medication, IV fluids, and treatment of infection. Attacks may take a couple of days to resolve. Return if the pain becomes more severe, or if there are new symptoms. Please follow-up with Dr. Jeffries this week for follow-up. Referrals: GITA KRUEGER MD [Primary Care Provider] - Follow up as needed
[2017-12-29 22:26] LABS: ALANINE AMINOTRANSFERASE 19 U/L (21-72); ALKALINE PHOSPHATASE 159 U/L (38-126); ANION GAP 14 (5-19); ASPARTATE AMINO TRANSFERASE 43 U/L (17-59); BILIRUBIN,DIRECT 0.5 mg/dL (0.0-0.4); BLOOD UREA NITROGEN 9 mg/dL (7-20); CALCIUM 10.2 mg/dL (8.4-10.2); CARBON DIOXIDE 26 mmol/L (22-30); CHLORIDE 108 mmol/L (98-107); GLUCOSE 89 mg/dL (75-110); POTASSIUM 3.8 mmol/L (3.6-5.0); SODIUM 148.2 mmol/L (137-145); TOTAL PROTEIN 8.8 g/dL (6.3-8.2)
[2017-12-29 22:35] LABS: ABSOLUTE RETICS # 0.297 10^6/uL (0.028-0.122); HEMATOCRIT 37.2 % (37.9-51.0); HEMOGLOBIN 12.7 g/dL (13.5-17.0); MEAN CORPUSCULAR HEMOGLOBIN 34.7 pg (27.0-33.4); MEAN CORPUSCULAR HGB CONC 34.1 g/dL (32.0-36.0); MEAN CORPUSCULAR VOLUME 102 fl (80-97); PLATELET COUNT 264 10^3/uL (150-450); RED BLOOD COUNT 3.66 10^6/uL (4.35-5.55); RED CELL DISTRIBUTION WIDTH 28.9 % (11.5-14.0); RETICULOCYTE COUNT (AUTO) 8.13 % (0.66-2.85); WHITE BLOOD COUNT 7.8 10^3/uL (4.0-10.5)
[2017-12-29 22:54] LABS: ABSOLUTE LYMPHOCYTES# (MANUAL) 2.3 10^3/uL (0.5-4.7); ABSOLUTE MONOCYTES # (MANUAL) 0.5 10^3/uL (0.1-1.4); ABSOLUTE NEUTROPHILS# (MANUAL) 4.9 10^3/uL (1.7-8.2); BASOPHILS % (MANUAL) 0 % (0-2); EOSINOPHILS % (MANUAL) 0 % (0-6); LYMPHOCYTES % (MANUAL) 29 % (13-45); MONOCYTES % (MANUAL) 7 % (3-13); NUCLEATED RED BLOOD CELLS 13 /100 WBC (0); SEGMENTED NEUTROPHILS % (MAN) 63 % (42-78); TOTAL CELLS COUNTED 100
[2017-12-29 22:56] LABS: ANISOCYTOSIS 4+; POIKILOCYTOSIS 2+; POLYCHROMASIA SLIGHT
[2017-12-29 22:57] LABS: ACANTHOCYTES SLIGHT; OVALOCYTES 1+; PLATELET COMMENT ADEQUATE; SCHISTOCYTES SLIGHT; TEAR DROP CELLS 1+
[2017-12-30] MEDS ORDERED: HYDROMORPHONE HCL INJ/PF 2 MG/ML AMPULE IV ONE (00:42)
[2017-12-30 01:21] LABS: APPEARANCE,URINE SLIGHTLY-CLOUDY; BILIRUBIN,URINE NEGATIVE (NEGATIVE); COLOR,URINE YELLOW; GLUCOSE, URINE NEGATIVE (NEGATIVE); KETONES,URINE TRACE mg/dL (NEGATIVE); LEUKOCYTE ESTERASE,URINE NEGATIVE (NEGATIVE); NITRITE,URINE NEGATIVE (NEGATIVE); PROTEIN,URINE 30 mg/dL (NEGATIVE); URINE SPECIFIC GRAVITY 1.014
[2017-12-30 02:05] VITALS: BP 122/92
== END 2017-12-30 02:05 | disposition home or self-care (01) ==
LOC: ER 20:53
DX: D57.00 Hb-SS disease with crisis, unspecified (principal); M25.561 Pain in right knee; M25.562 Pain in left knee; M54.5 Low back pain; F17.200 Nicotine dependence, unspecified, uncomplicated; J45.909 Unspecified asthma, uncomplicated
CPT/HCPCS: 99284; 36415; 85025; 85045; 80053; 81001; J1200; J1170 ×2; J2405; J7030

== ENCOUNTER → 2018-01-08 | Outpatient (CLI) | payer MEDICAID ==
--- NOTE | 2018-01-09 09:10 | XCELERA REPORT ---
[address] [address] Upper Extremity Venous Evaluation Name: MARINO POZO Age: 22 yrs Gender: Male : 1995 Patient Status: Outpatient Patient Location: Study Date: 01/08/2018 01:30 PM Procedure: Unilateral duplex scan of the right upper extremity veins was performed, including responses to compression and other maneuvers. Reason For Study: RUE PAIN Ordering Physician: GITA KRUEGER Performed By: Joyce Paul Right Side Venous Evaluation Study challenging due to body habitus. Normal vessel filling wall to wall, compression and augmentation as well as Colour flow down to the forearm veins. Interpretation Summary Normal compression, patency, spontaneous and phasic flow of the right upper extremity veins. : GITA KRUEGER > Zach Weinstein
== END ==
LOC: SP 12:58
PROVIDERS: ATTEND Internal Medicine Medical Oncology
DX: R52 Pain, unspecified (principal); M79.621 Pain in right upper arm; R60.9 Edema, unspecified
CPT/HCPCS: 93971

== ENCOUNTER 2018-01-13 18:52 | Emergency (ER) | payer MEDICAID ==
[2018-01-13] MEDS ORDERED: DIPHENHYDRAMINE HCL 25 MG CAPSULE PO ONE (21:01)
[2018-01-13] MEDS ORDERED: HYDROMORPHONE HCL INJ/PF 2 MG/ML AMPULE IV ONE ×2 (21:01→23:25)
[2018-01-13] MEDS ORDERED: ONDANSETRON HCL INJ/PF 4 MG/2 ML SDV IV ONE (21:01)
[2018-01-13] MEDS ORDERED: NORMAL SALINE 1000 ML 1,000 ML IV ONE ×2 (21:01)
--- NOTE | 2018-01-13 21:03 | ER Document Report ---
ED Medical Screen (RME) - General Chief Complaint: Sickle Cell Crisis Stated Complaint: LOW BACK PAIN Time Seen by Provider: 01/13/18 21:00 Notes: 22-year-old male with history of sickle cell anemia comes for chief complaint of worsening lower back pain and nausea since yesterday. Denies vomiting, fever , abdominal pain, respiratory symptoms. States his pain medication is not working. He follows with local hematology. TRAVEL OUTSIDE OF THE [place] IN LAST 30 DAYS: No - Related Data Allergies/Adverse Reactions: Coconut * [Coconut] Allergy (Mild, Verified 12/27/17 18:41) transpore tape Allergy (Mild, Uncoded 12/27/17 18:41) Hives Past Medical History - Social History Chew tobacco use (# tins/day): No Frequency of alcohol use: Occasional Drug Abuse: None Family history: None Pulmonary Medical History: Reports: Hx Asthma, Hx Pneumonia Renal/ Medical History: Denies: Hx Peritoneal Dialysis Psychiatric Medical History: Denies: Hx Depression Past Surgical History: Reports: Hx Abdominal Surgery - Gallstones removal, Hx Cholecystectomy, Hx Orthopedic Surgery - Fluid drained from right foot, Hx Vascular Surgery - Port placement - Immunizations Immunizations up to date: Yes Hx Diphtheria, Pertussis, Tetanus Vaccination: Yes History of Influenza Vaccine for 06/2017 - 10/2017 Season: Yes Influenza Administration Date for 06/2017 - 10/2017 Season: 06/02/17 Physical Exam - Vital signs Vitals: Temp Pulse Resp BP Pulse Ox 98.4 F 118 H 18 138/89 H 96 01/13/18 19:13 01/13/18 19:13 01/13/18 19:13 01/13/18 19:13 01/13/18 19:13 - General General appearance: Appears well In distress: None - Respiratory Respiratory status: No respiratory distress Breath sounds: Normal. No: Decreased air movement, Wheezing - Cardiovascular Rhythm: Regular, Tachycardia Heart sounds: Normal auscultation, S1 appreciated, S2 appreciated Course - Vital Signs Vital signs: Temp Pulse Resp BP Pulse Ox 98.4 F 118 H 18 138/89 H 96 01/13/18 19:13 01/13/18 19:13 01/13/18 19:13 01/13/18 19:13 01/13/18 19:13
[2018-01-13 21:32] LABS: ABSOLUTE RETICS # 0.321 10^6/uL (0.028-0.122); HEMATOCRIT 38.2 % (37.9-51.0); HEMOGLOBIN 13.1 g/dL (13.5-17.0); MEAN CORPUSCULAR HEMOGLOBIN 34.8 pg (27.0-33.4); MEAN CORPUSCULAR HGB CONC 34.3 g/dL (32.0-36.0); MEAN CORPUSCULAR VOLUME 101 fl (80-97); PLATELET COUNT 433 10^3/uL (150-450); RED BLOOD COUNT 3.77 10^6/uL (4.35-5.55); RED CELL DISTRIBUTION WIDTH 27.8 % (11.5-14.0); RETICULOCYTE COUNT (AUTO) 8.51 % (0.66-2.85)
[2018-01-13 21:53] LABS: ABSOLUTE LYMPHOCYTES# (MANUAL) 1.8 10^3/uL (0.5-4.7); ABSOLUTE MONOCYTES # (MANUAL) 0.4 10^3/uL (0.1-1.4); ABSOLUTE NEUTROPHILS# (MANUAL) 2.7 10^3/uL (1.7-8.2); BASOPHILS % (MANUAL) 0 % (0-2); EOSINOPHILS % (MANUAL) 2 % (0-6); LYMPHOCYTES % (MANUAL) 35 % (13-45); MONOCYTES % (MANUAL) 8 % (3-13); NUCLEATED RED BLOOD CELLS 13 /100 WBC (0); PLATELET COMMENT ADEQUATE; SEGMENTED NEUTROPHILS % (MAN) 54 % (42-78); SICKLE RED CELLS 1+; TOTAL CELLS COUNTED 100
[2018-01-13 21:56] LABS: ANISOCYTOSIS 3+; OVALOCYTES SLIGHT; POIKILOCYTOSIS 1+; POLYCHROMASIA SLIGHT; TARGET CELLS SLIGHT; TEAR DROP CELLS SLIGHT
[2018-01-13 23:08] LABS: ALANINE AMINOTRANSFERASE 26 U/L (21-72); ALBUMIN 4.7 g/dL (3.5-5.0); ALKALINE PHOSPHATASE 139 U/L (38-126); ANION GAP 12 (5-19); ASPARTATE AMINO TRANSFERASE 56 U/L (17-59); BILIRUBIN,DIRECT 0.5 mg/dL (0.0-0.4); BILIRUBIN,TOTAL 1.8 mg/dL (0.2-1.3); BLOOD UREA NITROGEN 11 mg/dL (7-20); CALCIUM 9.2 mg/dL (8.4-10.2); CARBON DIOXIDE 25 mmol/L (22-30); CHLORIDE 107 mmol/L (98-107); GLUCOSE 101 mg/dL (75-110); POTASSIUM 4.5 mmol/L (3.6-5.0); SODIUM 143.9 mmol/L (137-145); TOTAL PROTEIN 8.2 g/dL (6.3-8.2)
[2018-01-13] MEDS ORDERED: FAMOTIDINE INJ/PF 20 MG/2 ML SDV IV ONE (23:25)
[2018-01-13] MEDS ORDERED: DIPHENHYDRAMINE HCL 50 MG/ML VIAL IV ONE (23:25)
--- NOTE | 2018-01-13 23:32 | ER Document Report ---
ED General - General Mode of Arrival: Ambulatory Information source: Patient TRAVEL OUTSIDE OF THE [place] IN LAST 30 DAYS: No <FILIPE SANDERSON - Last Filed: 01/13/18 23:26> <LUZ YUNG - Last Filed: 01/14/18 00:59> - General Chief Complaint: Sickle Cell Crisis Stated Complaint: LOW BACK PAIN Time Seen by Provider: 01/13/18 21:00 Notes: Patient is a 22 year old male with a history of sickle cell anemia and asthma presents to the emergency department complaining of worsening lower back pain and nausea onset yesterday. Patient states his pain is similar to his normal sickle cell crisis. Patient denies vomiting, fever, abdominal pain or any respiratory symptoms. At bedside patient states he feels better after receiving medication in triage. Patient reports having an appointment with Dr. Stanton on 01/23/[address] Carlos on 01/07/2018. Patient currently take 5 mg of Oxycodone every 4 hours and has a 100 mcg Fentanyl patch. (FILIPE SANDERSON) Patient reports that he takes 15 mg of oxycodone times daily and 100 mcg fentanyl patch. [place] controlled substance reporting system indicates his prescriptions have been for oxycodone 5 mg 4 times a day and the 100 mcg fentanyl patch. The patient did have an exchange transfusion in [place] recently would explain why his hemoglobin is 13.1 which is much higher than he normally is. The patient's low back pain is reproducible on palpation of the lumbar muscles. The fact that he is on a fentanyl patch and oxycodone 4 times daily every day , suggests that this is a chronic pain narcotic dependency issue and not a sickle cell issue. (LUZ YUNG) - Related Data Allergies/Adverse Reactions: Coconut * [Coconut] Allergy (Mild, Verified 12/27/17 18:41) transpore tape Allergy (Mild, Uncoded 12/27/17 18:41) Hives Past Medical History - General Information source: Patient - Social History Smoking Status: Never Smoker Chew tobacco use (# tins/day): No Frequency of alcohol use: Occasional Drug Abuse: None Family History: Reviewed & Not Pertinent, Arthritis, DM, Hypertension, Other - Sickle cell trait both parents and asthma Patient has suicidal ideation: No Patient has homicidal ideation: No Pulmonary Medical History: Reports: Hx Asthma, Hx Pneumonia Past Surgical History: Reports: Hx Abdominal Surgery - Gallstones removal, Hx Cholecystectomy, Hx Orthopedic Surgery - Fluid drained from right foot, Hx Vascular Surgery - Port placement - Immunizations Immunizations up to date: Yes Hx Diphtheria, Pertussis, Tetanus Vaccination: Yes Hx Pneumococcal Vaccination: 01/15/13 <FILIPE SANDERSON - Last Filed: 01/13/18 23:26> Review of Systems - Review of Systems Constitutional: No symptoms reported EENT: No symptoms reported Cardiovascular: No symptoms reported Respiratory: No symptoms reported Gastrointestinal: See HPI, Nausea Genitourinary: No symptoms reported Male Genitourinary: No symptoms reported Musculoskeletal: See HPI, Back pain Skin: No symptoms reported Hematologic/Lymphatic: No symptoms reported Neurological/Psychological: No symptoms reported -: Yes All other systems reviewed and negative <FILIPE SANDERSON - Last Filed: 01/13/18 23:26> Physical Exam - General General appearance: Appears well, Alert In distress: None - HEENT Head: Normocephalic, Atraumatic Eyes: Normal Conjunctiva: Normal Extraocular movements intact: Yes Pupils: PERRL Mucous membranes: Normal Neck: Normal - Respiratory Respiratory status: No respiratory distress Chest status: Nontender Breath sounds: Wheezing - wheezing on the right, Other - Coarse breath sounds - Cardiovascular Rhythm: Regular Heart sounds: Normal auscultation Murmur: No Friction rub: No Gallop: None auscultated - Abdominal Inspection: Normal Distension: No distension Bowel sounds: Normal Tenderness: Nontender Organomegaly: No organomegaly - Back Back: Tender - tender the paravertebral muscles which reproduces patients pain stated in HPI - Extremities General upper extremity: Normal ROM General lower extremity: Normal ROM - Neurological Neuro grossly intact: Yes Cognition: Normal Orientation: AAOx4 [place] Coma Scale Eye Opening: Spontaneous Rodo Coma Scale Verbal: Oriented [place] Coma Scale Motor: Obeys Commands [place] Coma Scale Total: 15 Speech: Normal - Psychological Associated symptoms: Normal affect, Normal mood - Skin Skin Temperature: Warm Skin Moisture: Dry Skin Color: Normal <FILIPE SANDERSON - Last Filed: 01/13/18 23:26> - Vital signs Vitals: Temp Pulse Resp BP Pulse Ox 98.4 F 118 H 18 138/89 H 96 01/13/18 19:13 01/13/18 19:13 01/13/18 19:13 01/13/18 19:13 01/13/18 19:13 Course - Laboratory Result Diagrams: 01/13/18 21:15 01/13/18 22:35 <FILIPE SANDERSON - Last Filed: 01/13/18 23:26> - Laboratory Result Diagrams: 01/13/18 21:15 01/13/18 22:35 <LUZ YUNG - Last Filed: 01/14/18 00:59> - Re-evaluation Re-evalutation: 01/14/18 00:57 Patient is feeling better, he is not itching at this time and feels like he will be okay to go home. (LUZ YUNG) - Vital Signs Vital signs: Temp Pulse Resp BP Pulse Ox 98.4 F 118 H 18 138/89 H 96 01/13/18 19:13 01/13/18 19:13 01/13/18 19:13 01/13/18 19:13 01/13/18 19:13 - Laboratory Laboratory results interpreted by me: 01/13/18 01/13/18 01/13/18 21:15 22:35 23:35 RBC 3.77 L Hgb 13.1 L MCV 101 H MCH 34.8 H RDW 27.8 H Retic Count (auto) 8.51 H Absolute Retic 0.321 H Total Bilirubin 1.8 H Direct Bilirubin 0.5 H Alkaline Phosphatase 139 H Urine Protein 30 H Urine Urobilinogen 4.0 H Urine Ascorbic Acid 40 H Discharge <FILIPE SANDERSON - Last Filed: 01/13/18 23:26> <LUZ YUNG - Last Filed: 01/14/18 00:59> - Discharge Clinical Impression: Low back pain Qualifiers: Chronicity: chronic Back pain laterality: bilateral Sciatica presence: without sciatica Qualified Code(s): M54.5 - Low back pain Sickle cell anemia Qualifiers: Sickle-cell associated disorders: without crisis Qualified Code(s): D57.1 - Sickle-cell disease without crisis Condition: Stable Disposition: HOME, SELF-CARE Additional Instructions: Chronic Back Pain Chronic back pain (pain persisting longer than three months) is a common problem. A medical evaluation can look for herniated disc, arthritis, osteoporosis, tumors, and infections. But at least half the time, there's no obvious treatable cause. Anxiety and depression tend to worsen back pain. Ibuprofen or other anti-inflammatory medicine can help. A heating pad, used for 15-20 minutes at a time, can ease pain. For this type of back pain, narcotic medicines should be avoided. Muscle relaxers are rarely helpful unless you're having spasms. Activity is important. Find an aerobic exercise program that your back can tolerate. Too much rest makes back pain worse. Specific back exercises are usually prescribed to strengthen the back and abdominal muscles. Often, a physical therapist can help. Avoid heavy lifting, working while bent over, or standing with both knees straight. Most back pain patients do better with a firm mattress. If new symptoms of a "herniated disc" (radiation of pain, numbness, or tingling down the back of the leg or weakness in the leg) occur, you should be re-examined. Continue your regular medications. Follow-up with your doctor this week if not improving. RETURN TO THE EMERGENCY ROOM IF ANY NEW OR WORSENING SYMPTOMS. Rojasibe Attestation: 01/14/18 00:54 I personally performed the services described in the documentation, reviewed and edited the documentation which was dictated to the scribe in my presence, and it accurately records my words and actions. (LUZ YUNG) Scribe Documentation - Scribe Written by Bozena:: Bozena Sanz, 01/13/2018 23:35 acting as scribe for :: Beck <FILIPE SANDERSON - Last Filed: 01/13/18 23:26>
[2018-01-14 00:19] LABS: APPEARANCE,URINE CLEAR; BILIRUBIN,URINE NEGATIVE (NEGATIVE); COLOR,URINE YELLOW; GLUCOSE, URINE NEGATIVE (NEGATIVE); KETONES,URINE NEGATIVE (NEGATIVE); LEUKOCYTE ESTERASE,URINE NEGATIVE (NEGATIVE); NITRITE,URINE NEGATIVE (NEGATIVE); PROTEIN,URINE 30 mg/dL (NEGATIVE); URINE SPECIFIC GRAVITY 1.013
[2018-01-14 01:22] VITALS: BP 128/76
== END 2018-01-14 01:22 | disposition home or self-care (01) ==
LOC: ER 18:52
DX: G89.29 Other chronic pain (principal); M54.5 Low back pain; D57.1 Sickle-cell disease without crisis; R11.0 Nausea; J45.909 Unspecified asthma, uncomplicated; Z79.891 Long term (current) use of opiate analgesic; Z91.018 Allergy to other foods; Z88.8 Allergy status to other drugs, medicaments and biological substances
CPT/HCPCS: 96376; 99284; 96361; 96374; 96375; 36415; 85025; 85045; 80053; 81001; J3490; J1200; J1170; J2405; J7030; S0028

== ENCOUNTER 2018-01-17 17:22 | Emergency (ER) | payer MEDICAID ==
[2018-01-17] MEDS ORDERED: NORMAL SALINE 1000 ML 1,000 ML IV ONE (18:29)
[2018-01-17] MEDS ORDERED: FENTANYL CITRATE INJ/PF 100 MCG/2 ML AMPUL IV ONE (18:29)
--- NOTE | 2018-01-17 18:29 | ER Document Report ---
ED Medical Screen (RME) - General Chief Complaint: Sickle Cell Crisis Stated Complaint: KNEE PAIN Time Seen by Provider: 01/17/18 18:26 Notes: RAPID MEDICAL EVALUATION DISCLOSURE I have seen this patient as part of a Rapid Medical Evaluation and, if applicable, placed any initially appropriate orders. The patient will be seen and fully evaluated, including a full history and physical exam, by a provider ( in Main ED or Fast Track) when a room becomes available. 22-year-old male past medical history sickle cell here with complaints of left knee pain that started earlier today. He states when the weather changes he triggers a pain crisis which is usually present in his left knee. He took a 15 mg oxycodone early this morning but has not taken any since then. He went to his doctor's office but they told him to come here instead. EXAM Mildly tachycardic Minimal left knee TTP TRAVEL OUTSIDE OF THE [place] IN LAST 30 DAYS: No - Related Data Allergies/Adverse Reactions: Coconut * [Coconut] Allergy (Mild, Verified 01/17/18 17:26) transpore tape Allergy (Mild, Uncoded 01/17/18 17:26) Hives Past Medical History - Social History Family history: None Pulmonary Medical History: Reports: Hx Asthma, Hx Pneumonia Renal/ Medical History: Denies: Hx Peritoneal Dialysis Psychiatric Medical History: Denies: Hx Depression Past Surgical History: Reports: Hx Abdominal Surgery - Gallstones removal, Hx Cholecystectomy, Hx Orthopedic Surgery - Fluid drained from right foot, Hx Vascular Surgery - Port placement - Immunizations Immunizations up to date: Yes Hx Diphtheria, Pertussis, Tetanus Vaccination: Yes History of Influenza Vaccine for 06/2017 - 10/2017 Season: Yes Influenza Administration Date for 06/2017 - 10/2017 Season: 06/02/17 Physical Exam - Vital signs Vitals: Temp Pulse Resp BP Pulse Ox 98.4 F 112 H 16 143/93 H 95 01/17/18 17:33 01/17/18 17:33 01/17/18 17:33 01/17/18 17:33 01/17/18 17:33 Course - Vital Signs Vital signs: Temp Pulse Resp BP Pulse Ox 98.4 F 112 H 16 143/93 H 95 01/17/18 17:33 01/17/18 17:33 01/17/18 17:33 01/17/18 17:33 01/17/18 17:33
[2018-01-17] MEDS ORDERED: DIPHENHYDRAMINE HCL 25 MG CAPSULE PO ONE (18:47)
[2018-01-17] MEDS ORDERED: HYDROMORPHONE HCL INJ/PF 2 MG/ML AMPULE IV PRN (18:47)
--- NOTE | 2018-01-17 18:57 | ER Document Report ---
ED General - General Chief Complaint: Sickle Cell Crisis Stated Complaint: KNEE PAIN Time Seen by Provider: 01/17/18 18:26 Notes: Patient is a 22-year-old male with a history of sickle cell anemia who presents with left-sided knee pain, typical for his pain crisis. He reports that this started approximately 4-5 hours ago and has gotten progressively worse since that time. He took oxycodone without any relief. He states pain is worsened by walking and moving the knee. Nothing improves the pain. He has not seen his ticket printer regarding today's concerns. He denies any fever, shortness of breath or constitutional symptoms. States this is identical to prior pain crises. TRAVEL OUTSIDE OF THE [place] IN LAST 30 DAYS: No - Related Data Allergies/Adverse Reactions: Coconut * [Coconut] Allergy (Mild, Verified 01/17/18 17:26) transpore tape Allergy (Mild, Uncoded 01/17/18 17:26) Hives Past Medical History - General Information source: Patient - Social History Smoking Status: Never Smoker Frequency of alcohol use: Rare Drug Abuse: None Lives with: Family Family History: Reviewed & Not Pertinent, Arthritis, DM, Hypertension, Other - Sickle cell trait both parents and asthma Patient has suicidal ideation: No Patient has homicidal ideation: No Pulmonary Medical History: Reports: Hx Asthma, Hx Pneumonia Renal/ Medical History: Denies: Hx Peritoneal Dialysis Psychiatric Medical History: Denies: Hx Depression Past Surgical History: Reports: Hx Abdominal Surgery - Gallstones removal, Hx Cholecystectomy, Hx Orthopedic Surgery - Fluid drained from right foot, Hx Vascular Surgery - Port placement - Immunizations Immunizations up to date: Yes Hx Diphtheria, Pertussis, Tetanus Vaccination: Yes Hx Pneumococcal Vaccination: 01/15/13 Review of Systems - Review of Systems Notes: Constitutional: Negative for fever. HENT: Negative for sore throat. Eyes: Negative for visual changes. Cardiovascular: Negative for chest pain. Respiratory: Negative for shortness of breath. Gastrointestinal: Negative for abdominal pain, vomiting or diarrhea. Genitourinary: Negative for dysuria. Musculoskeletal: Positive for left knee pain Skin: Negative for rash. Neurological: Negative for headaches, weakness or numbness. 10 point ROS negative except as marked above and in HPI. Physical Exam - Vital signs Vitals: Temp Pulse Resp BP Pulse Ox 98.4 F 112 H 16 143/93 H 95 01/17/18 17:33 01/17/18 17:33 01/17/18 17:33 01/17/18 17:33 01/17/18 17:33 Interpretation: Tachycardic Notes: PHYSICAL EXAMINATION: GENERAL: Well-appearing, well-nourished and in no acute distress. HEAD: Atraumatic, normocephalic. EYES: Pupils equal round and reactive to light, extraocular movements intact, sclera anicteric, conjunctiva are normal. ENT: nares patent, oropharynx clear without exudates. Moist mucous membranes. NECK: Normal range of motion, supple without lymphadenopathy LUNGS: Breath sounds clear to auscultation bilaterally and equal. No wheezes rales or rhonchi. HEART: Regular rate and rhythm without murmurs ABDOMEN: Soft, nontender, normoactive bowel sounds. No guarding, no rebound. No masses appreciated. EXTREMITIES: Normal range of motion, no pitting or edema. No cyanosis. NEUROLOGICAL: No focal neurological deficits. Moves all extremities spontaneously and on command. PSYCH: Normal mood, normal affect. SKIN: Warm, Dry, normal turgor, no rashes or lesions noted. Course - Re-evaluation Re-evalutation: 01/17/18 18:56 Presentation is most consistent with an uncomplicated sickle cell pain crisis. No indication for laboratories as the patient is here on a regular basis, just had labs completed less than 48 hours ago. Vitals are not consistent with acute chest syndrome. Vitals have remained within normal limits here in the emergency department. Patient's pain has been able to be controlled using IV analgesia. The patient is agreeable to discharge home at this time. I recommended that they follow closely with their primary ticket printer. At this time will discharge with return precautions and follow-up recommendations. Verbal discharge instructions given a the bedside and opportunity for questions given. Medication warnings reviewed. Patient is in agreement with this plan and has verbalized understanding of return precautions and the need for primary care follow-up in the next 24-72 hours. - Vital Signs Vital signs: Temp Pulse Resp BP Pulse Ox 98.4 F 112 H 18 133/96 H 97 01/17/18 17:33 01/17/18 17:33 01/17/18 20:01 01/17/18 20:01 01/17/18 20:01 Discharge - Discharge Clinical Impression: Sickle cell crisis Sickle cell anemia Qualifiers: Sickle-cell associated disorders: with unspecified crisis Qualified Code(s): D57.00 - Hb-SS disease with crisis, unspecified Condition: Good Disposition: HOME, SELF-CARE Additional Instructions: You were seen today for sickle cell pain crisis. Please follow-up with your ticket printer. Returning to the ED if you have worsening pain, fever greater than 100.4, shortness of breath, persistent vomiting, or any other symptoms that are concerning to you. Referrals: ANDREW WILLIS MD [Primary Care Provider] - Follow up as needed
[2018-01-17] MEDS ORDERED: HYDROMORPHONE HCL INJ/PF 2 MG/ML AMPULE IM PRN (19:13)
[2018-01-17] MEDS: HYDROMORPHONE HCL INJ/PF 2 MG/ML AMPULE IV PRN ×2 (20:04→21:16)
[2018-01-17] MEDS ORDERED: DIPHENHYDRAMINE HCL 25 MG CAPSULE ONE (21:16)
[2018-01-17 21:54] VITALS: BP 139/91
== END 2018-01-17 22:01 | disposition home or self-care (01) ==
LOC: ER 17:22
DX: D57.00 Hb-SS disease with crisis, unspecified (principal); Z90.49 Acquired absence of other specified parts of digestive tract
CPT/HCPCS: 96376; 99284; 96374; J3490; J1170

== ENCOUNTER 2018-01-19 23:59 | Emergency (ER) | payer MEDICAID ==
[2018-01-20] MEDS ORDERED: DIPHENHYDRAMINE HCL 25 MG CAPSULE PO ONE (00:27)
[2018-01-20 01:20] LABS: ABSOLUTE EOSINOPHILS # (AUTO) 0.1 10^3/uL (0.0-0.6); ABSOLUTE LYMPHOCYTES (AUTO) 1.8 10^3/uL (0.5-4.7); ABSOLUTE MONOCYTES (AUTO) 0.4 10^3/uL (0.1-1.4); ABSOLUTE NEUT (AUTO) 3.2 10^3/uL (1.7-8.2); ANION GAP 15 (5-19); BASOPHILS % (AUTO) 0.6 % (0-2); BLOOD UREA NITROGEN 15 mg/dL (7-20); CALCIUM 9.6 mg/dL (8.4-10.2); CARBON DIOXIDE 27 mmol/L (22-30); CHLORIDE 108 mmol/L (98-107); EOSINOPHILS % (AUTO) 1.2 % (0-6); GLUCOSE 110 mg/dL (75-110); HEMATOCRIT 35.1 % (37.9-51.0); MEAN CORPUSCULAR HEMOGLOBIN 35.6 pg (27.0-33.4); MEAN CORPUSCULAR HGB CONC 34.3 g/dL (32.0-36.0); MEAN CORPUSCULAR VOLUME 104 fl (80-97); MONOCYTES % (AUTO) 7.7 % (3-13); PLATELET COUNT 346 10^3/uL (150-450); POTASSIUM 4.5 mmol/L (3.6-5.0); RED BLOOD COUNT 3.38 10^6/uL (4.35-5.55); RED CELL DISTRIBUTION WIDTH 26.9 % (11.5-14.0); SEGMENTED NEUTROPHILS % (AUTO) 58.5 % (42-78); SODIUM 149.5 mmol/L (137-145); TOTAL CELLS COUNTED % (AUTO) 100 %; WHITE BLOOD COUNT 5.5 10^3/uL (4.0-10.5)
[2018-01-20 01:21] LABS: ABSOLUTE RETICS # 0.209 10^6/uL (0.028-0.122)
[2018-01-20] MEDS: HYDROMORPHONE HCL INJ/PF 2 MG/ML AMPULE IV PRN ×3 (01:44→04:34)
[2018-01-20 01:49] LABS: ANISOCYTOSIS 3+; HYPOCHROMASIA SLIGHT; POLYCHROMASIA SLIGHT
[2018-01-20 01:50] LABS: PLATELET COMMENT ADEQUATE; PLATELET LARGE PRESENT; POIKILOCYTOSIS 1+; SICKLE RED CELLS 1+; TARGET CELLS SLIGHT; TEAR DROP CELLS SLIGHT
--- NOTE | 2018-01-20 02:10 | ER Document Report ---
ED General - General Chief Complaint: Pain All Over Stated Complaint: PAIN ALL OVER Time Seen by Provider: 01/20/18 00:26 Notes: Patient is a 22-year-old male with past medical history of sickle cell anemia who presents with diffuse body pain as well as chest discomfort since he has been here in the emergency department. The patient states that this does feel similar to when he has sickle cell crises. He describes the pain as a throbbing , aching, severe pain located diffusely throughout his body particularly in his bilateral knees. He was here 2 days ago for the same with right knee pain at that time. He denies any fever, vomiting or constitutional symptoms. He has tried his home pain medications without any significant improvement in his pain. TRAVEL OUTSIDE OF THE [place] IN LAST 30 DAYS: No - Related Data Allergies/Adverse Reactions: Coconut * [Coconut] Allergy (Mild, Verified 01/17/18 17:26) transpore tape Allergy (Mild, Uncoded 01/17/18 17:26) Hives Past Medical History - General Information source: Patient - Social History Smoking Status: Never Smoker Frequency of alcohol use: None Drug Abuse: None Lives with: Spouse/Significant other Family History: Reviewed & Not Pertinent, Arthritis, DM, Hypertension, Other - Sickle cell trait both parents and asthma Pulmonary Medical History: Reports: Hx Asthma, Hx Pneumonia Renal/ Medical History: Denies: Hx Peritoneal Dialysis Psychiatric Medical History: Denies: Hx Depression Past Surgical History: Reports: Hx Abdominal Surgery - Gallstones removal, Hx Cholecystectomy, Hx Orthopedic Surgery - Fluid drained from right foot, Hx Vascular Surgery - Port placement - Immunizations Immunizations up to date: Yes Hx Diphtheria, Pertussis, Tetanus Vaccination: Yes Hx Pneumococcal Vaccination: 01/15/13 Review of Systems - Review of Systems Notes: Constitutional: Negative for fever. HENT: Negative for sore throat. Eyes: Negative for visual changes. Cardiovascular: Positive for chest pain. Respiratory: Negative for shortness of breath. Gastrointestinal: Negative for abdominal pain, vomiting or diarrhea. Genitourinary: Negative for dysuria. Musculoskeletal: Positive for diffuse musculoskeletal pain. Skin: Negative for rash. Neurological: Negative for headaches, weakness or numbness. 10 point ROS negative except as marked above and in HPI. Physical Exam - Vital signs Vitals: Temp Pulse Resp BP Pulse Ox 98.8 F 97 16 138/86 H 96 01/20/18 00:15 01/20/18 00:15 01/20/18 00:15 01/20/18 00:15 01/20/18 00:15 Interpretation: Normal Notes: PHYSICAL EXAMINATION: GENERAL: Well-appearing, well-nourished and in no acute distress. HEAD: Atraumatic, normocephalic. EYES: Pupils equal round and reactive to light, extraocular movements intact, sclera anicteric, conjunctiva are normal. ENT: nares patent, oropharynx clear without exudates. Moist mucous membranes. NECK: Normal range of motion, supple without lymphadenopathy LUNGS: Breath sounds clear to auscultation bilaterally and equal. No wheezes rales or rhonchi. HEART: Regular rate and rhythm without murmurs ABDOMEN: Soft, nontender, normoactive bowel sounds. No guarding, no rebound. No masses appreciated. EXTREMITIES: Normal range of motion, no pitting or edema. No cyanosis. NEUROLOGICAL: No focal neurological deficits. Moves all extremities spontaneously and on command. PSYCH: Normal mood, normal affect. SKIN: Warm, Dry, normal turgor, no rashes or lesions noted. Course - Re-evaluation Re-evalutation: 01/20/18 02:10 Presentation is most consistent with an uncomplicated sickle cell pain crisis. Patient has no evidence of an aplastic crisis on labs. Chest x-ray and vitals are not consistent with acute chest syndrome. Vitals have remained within normal limits here in the emergency department. Patient's pain has been able to be controlled using IV analgesia. At this time will discharge with return precautions and follow-up recommendations. Verbal discharge instructions given a the bedside and opportunity for questions given. Medication warnings reviewed. Patient is in agreement with this plan and has verbalized understanding of return precautions and the need for primary care follow-up in the next 24-72 hours. - Vital Signs Vital signs: Temp Pulse Resp BP Pulse Ox 98.8 F 97 16 138/86 H 96 01/20/18 00:15 01/20/18 00:15 01/20/18 00:15 01/20/18 00:15 01/20/18 00:15 - Laboratory Result Diagrams: 01/20/18 00:54 01/20/18 00:54 Laboratory results interpreted by me: 01/20/18 01/20/18 00:54 00:54 RBC 3.38 L Hgb 12.0 L Hct 35.1 L MCV 104 H MCH 35.6 H RDW 26.9 H Retic Count (auto) 6.20 H Absolute Retic 0.209 H Sodium 149.5 H Chloride 108 H - Diagnostic Test Radiology reviewed: Image reviewed, Reports reviewed Radiology results interpreted by me: 01/20/18 03:08 Chest x-ray: No acute infiltrate or pneumothorax - EKG Interpretation by Me Additional EKG results interpreted by me: 01/20/18 03:09 Sinus rhythm. Rate 92. No ST elevations or depressions. QTC is 441. Discharge - Discharge Clinical Impression: Sickle cell crisis, Chest discomfort Sickle cell anemia Qualifiers: Sickle-cell associated disorders: with unspecified crisis Qualified Code(s): D57.00 - Hb-SS disease with crisis, unspecified; D57.0 - Hb-SS disease with crisis Condition: Good Disposition: HOME, SELF-CARE Additional Instructions: You were seen today for sickle cell pain crisis. Please follow-up with your respiratory care specialist. Returning to the ED if you have worsening pain, fever greater than 100.4, shortness of breath, persistent vomiting, or any other symptoms that are concerning to you. Referrals: ANDREW WILLIS MD [Primary Care Provider] - Follow up as needed
[2018-01-20] MEDS ORDERED: ONDANSETRON HCL INJ/PF 4 MG/2 ML SDV IV ONE (03:07)
--- NOTE | 2018-01-20 03:41 | RADIOLOGY REPORT (SQ) ---
EXAM DESCRIPTION: Single view of the chest CLINICAL HISTORY: chest pain, sob COMPARISON: 11/24/2017 FINDINGS: Single frontal view of the chest. The cardiomediastinal silhouette has normal size and contour. No consolidation, pneumothorax, or pleural effusion. No displaced rib fractures identified. Upper abdominal soft tissues are unremarkable. IMPRESSION: 1. No acute pulmonary process identified.
[2018-01-20 05:07] VITALS: BP 142/93
--- NOTE | 2018-01-20 06:49 | EKG REPORT ---
SEVERITY:- NORMAL ECG - SINUS RHYTHM : Confirmed by: Howard Min MD 20-Jan-2018 06:49:10
== END 2018-01-20 04:50 | disposition home or self-care (01) ==
LOC: ER 23:59
DX: D57.00 Hb-SS disease with crisis, unspecified (principal); R07.9 Chest pain, unspecified; M79.1 Myalgia; E87.1 Hypo-osmolality and hyponatremia; M25.561 Pain in right knee; M25.562 Pain in left knee; J45.909 Unspecified asthma, uncomplicated
CPT/HCPCS: 93005; 99284; 36415; 85025; 85045; 80048; 71045; 93010; J3490; J1170; J2405

== ENCOUNTER 2018-01-24 23:38 | Emergency (ER) | payer MEDICAID ==
[2018-01-25] MEDS ORDERED: DIPHENHYDRAMINE HCL 25 MG CAPSULE PO ONE (01:46)
--- NOTE | 2018-01-25 02:24 | ER Document Report ---
ED General - General Chief Complaint: Sickle Cell Crisis Stated Complaint: SICKLE CELL CRISIS Time Seen by Provider: 01/25/18 01:43 Notes: Patient is a 22-year-old male with past medical history of sickle cell anemia who presents with bilateral knee pain worse on the right.. The patient states that this does feel similar to when he has sickle cell crises. He states that his trigger was recently performing walking testing at [place] where he is being evaluated for a bone marrow treatment for his sickle cell disease. He describes the pain as a throbbing, aching, severe pain located in his bilateral knees. She was here recently for similar symptoms. He denies any fever, vomiting or constitutional symptoms. He has tried his home pain medications without any significant improvement in his pain. He is scheduled to follow-up with his utilities operator on Saturday. TRAVEL OUTSIDE OF THE [place] IN LAST 30 DAYS: No - Related Data Allergies/Adverse Reactions: Coconut * [Coconut] Allergy (Mild, Verified 01/17/18 17:26) transpore tape Allergy (Mild, Uncoded 01/17/18 17:26) Hives Past Medical History - General Information source: Patient - Social History Smoking Status: Never Smoker Frequency of alcohol use: None Drug Abuse: None Lives with: Family Family History: Reviewed & Not Pertinent, Arthritis, DM, Hypertension, Other - Sickle cell trait both parents and asthma Pulmonary Medical History: Reports: Hx Asthma, Hx Pneumonia Renal/ Medical History: Denies: Hx Peritoneal Dialysis Psychiatric Medical History: Denies: Hx Depression Past Surgical History: Reports: Hx Abdominal Surgery - Gallstones removal, Hx Cholecystectomy, Hx Orthopedic Surgery - Fluid drained from right foot, Hx Vascular Surgery - Port placement - Immunizations Immunizations up to date: Yes Hx Diphtheria, Pertussis, Tetanus Vaccination: Yes Hx Pneumococcal Vaccination: 01/15/13 Review of Systems - Review of Systems Notes: Constitutional: Negative for fever. HENT: Negative for sore throat. Eyes: Negative for visual changes. Cardiovascular: Negative for chest pain. Respiratory: Negative for shortness of breath. Gastrointestinal: Negative for abdominal pain, vomiting or diarrhea. Genitourinary: Negative for dysuria. Musculoskeletal: Positive for bilateral knee pain Skin: Negative for rash. Neurological: Negative for headaches, weakness or numbness. 10 point ROS negative except as marked above and in HPI. Physical Exam - Vital signs Vitals: Temp Pulse Resp BP Pulse Ox 98.6 F 98 18 130/89 H 98 01/25/18 00:38 01/25/18 00:38 01/25/18 00:38 01/25/18 00:38 01/25/18 00:38 Interpretation: Normal Notes: PHYSICAL EXAMINATION: GENERAL: Well-appearing, well-nourished and in no acute distress. HEAD: Atraumatic, normocephalic. EYES: Pupils equal round and reactive to light, extraocular movements intact, sclera anicteric, conjunctiva are normal. ENT: nares patent, oropharynx clear without exudates. Moist mucous membranes. NECK: Normal range of motion, supple without lymphadenopathy LUNGS: Breath sounds clear to auscultation bilaterally and equal. No wheezes rales or rhonchi. HEART: Regular rate and rhythm without murmurs ABDOMEN: Soft, nontender, normoactive bowel sounds. No guarding, no rebound. No masses appreciated. EXTREMITIES: Normal range of motion, no pitting or edema. No cyanosis. NEUROLOGICAL: No focal neurological deficits. Moves all extremities spontaneously and on command. PSYCH: Normal mood, normal affect. SKIN: Warm, Dry, normal turgor, no rashes or lesions noted. Course - Re-evaluation Re-evalutation: 01/25/18 02:23 Presentation is most consistent with an uncomplicated sickle cell pain crisis. Patient has no evidence of an aplastic crisis on labs. The patient denies any symptoms to suggest acute chest and vitals otherwise unremarkable. No indication for chest x-ray.. Vitals have remained within normal limits here in the emergency department. Patient's pain has been able to be controlled using IV analgesia. The patient is agreeable to discharge home at this time. I recommended that they follow closely with their primary utilities operator. Return precautions have been reviewed and discussed and patient has verbalized indications to return to the emergency department. - Vital Signs Vital signs: Temp Pulse Resp BP Pulse Ox 98.6 F 98 18 130/89 H 98 01/25/18 00:38 01/25/18 00:38 01/25/18 00:38 01/25/18 00:38 01/25/18 00:38 - Laboratory Result Diagrams: 01/25/18 02:40 01/25/18 02:40 Laboratory results interpreted by me: 01/25/18 01/25/18 02:40 02:40 RBC 3.26 L Hgb 11.4 L Hct 32.9 L MCV 101 H MCH 34.9 H RDW 26.4 H Retic Count (auto) 5.47 H Absolute Retic 0.179 H Sodium 146.1 H Chloride 108 H Discharge - Discharge Clinical Impression: Sickle cell crisis Right knee pain Qualifiers: Chronicity: acute Qualified Code(s): M25.561 - Pain in right knee Condition: Good Disposition: HOME, SELF-CARE Additional Instructions: You were seen today for sickle cell pain crisis. Please follow-up with your utilities operator. Returning to the ED if you have worsening pain, fever greater than 100.4, shortness of breath, persistent vomiting, or any other symptoms that are concerning to you.
[2018-01-25] MEDS: HYDROMORPHONE HCL INJ/PF 2 MG/ML AMPULE IV PRN ×3 (02:49→05:44)
[2018-01-25 02:57] LABS: ABSOLUTE RETICS # 0.179 10^6/uL (0.028-0.122); HEMATOCRIT 32.9 % (37.9-51.0); HEMOGLOBIN 11.4 g/dL (13.5-17.0); MEAN CORPUSCULAR HEMOGLOBIN 34.9 pg (27.0-33.4); MEAN CORPUSCULAR HGB CONC 34.6 g/dL (32.0-36.0); MEAN CORPUSCULAR VOLUME 101 fl (80-97); PLATELET COUNT 301 10^3/uL (150-450); RED BLOOD COUNT 3.26 10^6/uL (4.35-5.55); RED CELL DISTRIBUTION WIDTH 26.4 % (11.5-14.0); RETICULOCYTE COUNT (AUTO) 5.47 % (0.66-2.85); WHITE BLOOD COUNT 7.8 10^3/uL (4.0-10.5)
[2018-01-25 03:14] LABS: ANION GAP 14 (5-19); BLOOD UREA NITROGEN 18 mg/dL (7-20); CALCIUM 9.8 mg/dL (8.4-10.2); CARBON DIOXIDE 24 mmol/L (22-30); CHLORIDE 108 mmol/L (98-107); GLUCOSE 103 mg/dL (75-110); POTASSIUM 4.4 mmol/L (3.6-5.0); SODIUM 146.1 mmol/L (137-145)
[2018-01-25 05:50] VITALS: BP 125/78
== END 2018-01-25 05:47 | disposition home or self-care (01) ==
LOC: ER 23:38
DX: D57.00 Hb-SS disease with crisis, unspecified (principal); M25.561 Pain in right knee; M25.562 Pain in left knee; Z90.49 Acquired absence of other specified parts of digestive tract
CPT/HCPCS: 96376; 99284; 96374; 36415; 85027; 85045; 80048; J3490; J1170

== ENCOUNTER 2018-01-26 11:13 | Emergency (ER) | payer MEDICAID ==
[2018-01-26] MEDS ORDERED: FENTANYL CITRATE INJ/PF 100 MCG/2 ML AMPUL IV ONE (11:31)
[2018-01-26] MEDS ORDERED: ONDANSETRON 4 MG TAB.RAPDIS PO ONE (11:31)
[2018-01-26] MEDS ORDERED: NORMAL SALINE 1000 ML 1,000 ML IV ONE ×2 (11:31→12:35)
--- NOTE | 2018-01-26 11:33 | ER Document Report ---
ED Medical Screen (RME) - General Chief Complaint: Sickle Cell Crisis Stated Complaint: KNEE PAIN Time Seen by Provider: 01/26/18 11:29 Notes: RAPID MEDICAL EVALUATION DISCLOSURE I have seen this patient as part of a Rapid Medical Evaluation and, if applicable, placed any initially appropriate orders. The patient will be seen and fully evaluated, including a full history and physical exam, by a provider ( in Main ED or Fast Track) when a room becomes available. 22-year-old male PMH sickle cell here with complaints of headache nausea/ vomiting knee pain that started early this morning. He does not know what is causing his sickle cell crisis. His usual symptoms are knee pain but not usually the other symptoms. Due to his vomiting, he has been unable to keep down any medications he reports. EXAM Mildly tachycardic low 100s TRAVEL OUTSIDE OF THE [place] IN LAST 30 DAYS: No - Related Data Allergies/Adverse Reactions: Coconut * [Coconut] Allergy (Mild, Verified 01/26/18 11:14) transpore tape Allergy (Mild, Uncoded 01/26/18 11:14) Hives Past Medical History - Social History Chew tobacco use (# tins/day): No Frequency of alcohol use: Occasional Drug Abuse: None Family history: None Pulmonary Medical History: Reports: Hx Asthma, Hx Pneumonia Renal/ Medical History: Denies: Hx Peritoneal Dialysis Psychiatric Medical History: Denies: Hx Depression Past Surgical History: Reports: Hx Abdominal Surgery - Gallstones removal, Hx Cholecystectomy, Hx Orthopedic Surgery - Fluid drained from right foot, Hx Vascular Surgery - Port placement - Immunizations Immunizations up to date: Yes Hx Diphtheria, Pertussis, Tetanus Vaccination: Yes History of Influenza Vaccine for 06/2017 - 10/2017 Season: Yes Influenza Administration Date for 06/2017 - 10/2017 Season: 06/02/17 Physical Exam - Vital signs Vitals: Temp Pulse Resp BP Pulse Ox 98.7 F 106 H 22 H 135/84 H 94 01/26/18 11:18 01/26/18 11:18 01/26/18 11:18 01/26/18 11:18 01/26/18 11:18 Course - Vital Signs Vital signs: Temp Pulse Resp BP Pulse Ox 98.7 F 106 H 22 H 135/84 H 94 01/26/18 11:18 01/26/18 11:18 01/26/18 11:18 01/26/18 11:18 01/26/18 11:18
[2018-01-26 12:12] LABS: ABSOLUTE BASOPHILS # (AUTO) 0.1 10^3/uL (0.0-0.2); ABSOLUTE EOSINOPHILS # (AUTO) 0.1 10^3/uL (0.0-0.6); ABSOLUTE LYMPHOCYTES (AUTO) 2.1 10^3/uL (0.5-4.7); ABSOLUTE MONOCYTES (AUTO) 1.1 10^3/uL (0.1-1.4); ABSOLUTE NEUT (AUTO) 4.8 10^3/uL (1.7-8.2); ABSOLUTE RETICS # 0.178 10^6/uL (0.028-0.122); BASOPHILS % (AUTO) 0.7 % (0-2); EOSINOPHILS % (AUTO) 1.2 % (0-6); HEMATOCRIT 30.3 % (37.9-51.0); HEMOGLOBIN 10.8 g/dL (13.5-17.0); LYMPHOCYTES % (AUTO) 25.9 % (13-45); MEAN CORPUSCULAR HGB CONC 35.7 g/dL (32.0-36.0); MEAN CORPUSCULAR VOLUME 98 fl (80-97); MONOCYTES % (AUTO) 13.4 % (3-13); PLATELET COUNT 237 10^3/uL (150-450); RED BLOOD COUNT 3.09 10^6/uL (4.35-5.55); RED CELL DISTRIBUTION WIDTH 26.6 % (11.5-14.0); RETICULOCYTE COUNT (AUTO) 5.78 % (0.66-2.85); SEGMENTED NEUTROPHILS % (AUTO) 58.8 % (42-78); TOTAL CELLS COUNTED % (AUTO) 100 %; WHITE BLOOD COUNT 8.2 10^3/uL (4.0-10.5)
--- NOTE | 2018-01-26 12:14 | ER Document Report ---
ED General - General Chief Complaint: Sickle Cell Crisis Stated Complaint: KNEE PAIN Time Seen by Provider: 01/26/18 11:29 Mode of Arrival: Ambulatory Information source: Patient, Relative TRAVEL OUTSIDE OF THE [place] 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 Patient states that this episode does feel similar to his previous sickle cell crisis disease. Patient denies this is nothing similar to when he was admitted back in October when he previously had an allergic reaction and then had a sickle cell crisis with vasospasm. Patient has an appointment with Dr. Krueger and Dr. Jeffries on Saturday and Saturday this week. Patient states he has throbbing aching pain to his left knee. Denies fevers, chills, palpitations, shortness of breath, dyspnea, nausea, vomiting, diarrhea, abdominal pain, hematuria,blurred vision, double vision, loss of vision, speech changes, LH, dizziness, syncope, headaches, wheezing, ST, URI, neck pain, weakness, bowel or bladder dysfunction, saddle anesthesia, numbness or tingling in bilateral upper or lower extremities equally, muscle paralysis, weakness in bilateral upper or lower extremities equally or rash. Denies IV drug use. - Related Data Allergies/Adverse Reactions: Coconut * [Coconut] Allergy (Mild, Verified 01/26/18 11:14) transpore tape Allergy (Mild, Uncoded 01/26/18 11:14) Hives Past Medical History - General Information source: Patient - Social History Smoking Status: Never Smoker Chew tobacco use (# tins/day): No Frequency of alcohol use: Occasional Drug Abuse: None Family History: Reviewed & Not Pertinent, Arthritis, DM, Hypertension, Other - Sickle cell trait both parents and asthma Patient has suicidal ideation: No Patient has homicidal ideation: No Pulmonary Medical History: Reports: Hx Asthma, Hx Pneumonia Renal/ Medical History: Denies: Hx Peritoneal Dialysis Psychiatric Medical History: Denies: Hx Depression Past Surgical History: Reports: Hx Abdominal Surgery - Gallstones removal, Hx Cholecystectomy, Hx Orthopedic Surgery - Fluid drained from right foot, Hx Vascular Surgery - Port placement - Immunizations Immunizations up to date: Yes Hx Diphtheria, Pertussis, Tetanus Vaccination: Yes Hx Pneumococcal Vaccination: 01/15/13 Review of Systems - Review of Systems Constitutional: No symptoms reported EENT: No symptoms reported Cardiovascular: See HPI Respiratory: No symptoms reported Gastrointestinal: No symptoms reported Genitourinary: No symptoms reported Male Genitourinary: No symptoms reported Musculoskeletal: See HPI Skin: No symptoms reported Hematologic/Lymphatic: No symptoms reported Neurological/Psychological: No symptoms reported Physical Exam - Vital signs Vitals: Temp Pulse Resp BP Pulse Ox 98.7 F 106 H 22 H 135/84 H 94 01/26/18 11:18 01/26/18 11:18 01/26/18 11:18 01/26/18 11:18 01/26/18 11:18 - Notes Notes: PHYSICAL EXAMINATION: GENERAL: Well-appearing, well-nourished and in no acute distress. HEAD: Atraumatic, normocephalic. EYES: Pupils equal round and reactive to light, extraocular movements intact, sclera anicteric, conjunctiva are normal. ENT: Nares patent, oropharynx clear without exudates. Moist mucous membranes. NECK: Normal range of motion, supple without lymphadenopathy LUNGS: Breath sounds clear to auscultation bilaterally and equal. No wheezes rales or rhonchi. HEART: Sinus tachycardia, regular rhythm without murmurs ABDOMEN: Soft, nontender, nondistended abdomen. No guarding, no rebound. No masses appreciated. Musculoskeletal: Normal range of motion, no pitting or edema. No cyanosis. left knee pain with palpation to lateral aspect of knee with noted swelling. negative marcus's sign. anterior and posterior drawer test negative. noted pain with lateral movement. Dtr + 2 in BLE. Full motor and sensory function to BLE equally. No open wounds. No induration or drainage. Strength 5 out of 5 bilaterally equally. Ankle examination normal. Squeeze test negative. Hip examination normal. Pulses + 2 bilaterally and equally.negative squeeze bilaterally and equally. NEUROLOGICAL: Cranial nerves grossly intact. Normal speech, normal gait. Normal sensory, motor exams. PERRLA, EOMI. Full motor and sensory function throughout. Flight Surveyor + 2 equal bilaterally in BUE. Tongue midline. No pronator drift. No ataxia. Neck with APROM. Raises eyebrows. Strength is 5 out of 5 in bilateral upper and lower extremities equally.Speaks in full sentences. No weakness on one side. Romberg gait steady able to walk straight line. Able to recall 5 objects. PSYCH: Normal mood, normal affect. SKIN: Warm, Dry, normal turgor, no rashes or lesions noted. Course - Re-evaluation Re-evalutation: 01/26/18 17:35 Presentation is most consistent with an uncomplicated sickle cell pain crisis. There is no evidence of aplastic crisis on labs. This patient denies any symptoms to suggest acute chest vitals otherwise unremarkable. No indication on chest x-ray. Vitals have remained within normal limits here in the emergency room. Patient's pain has been able to be controlled using IV opiate analgesia. The patient is agreeable to discharge home at this time. I agree that they follow closely with her primary media job titles. Return precautions have been reviewed and discussed the patient has verbalized indication return to the emergency department. After performing a Medical Screening Examination, I estimate there is LOW risk for RUPTURED ESOPHAGUS, PNEUMOTHORAX, PULMONARY EMBOLISM, ACUTE CORONARY SYNDROME, OR THORACIC AORTIC DISSECTION, thus I consider the discharge disposition reasonable. I have reevaluated this patient multiple times and no significant life threatening changes are noted. The patient and I have discussed the diagnosis and risks, and we agree with discharging home with close follow-up. We also discussed returning to the Emergency Department immediately if new or worsening symptoms occur. We have discussed the symptoms which are most concerning (e.g., bloody sputum, worsening pain or shortness of breath) that necessitate immediate return. - Vital Signs Vital signs: Temp Pulse Resp BP Pulse Ox 98.7 F 106 H 22 H 135/84 H 94 01/26/18 11:18 01/26/18 11:18 01/26/18 11:18 01/26/18 11:18 01/26/18 11:18 - Laboratory Result Diagrams: 01/26/18 11:30 01/26/18 11:30 Laboratory results interpreted by me: 01/26/18 01/26/18 11:30 11:30 RBC 3.09 L Hgb 10.8 L Hct 30.3 L MCV 98 H MCH 35.0 H RDW 26.6 H Monocytes % 13.4 H Retic Count (auto) 5.78 H Absolute Retic 0.178 H Total Bilirubin 3.3 H Direct Bilirubin 0.5 H AST 72 H Alkaline Phosphatase 137 H Total Protein 8.4 H Discharge - Discharge Clinical Impression: Sickle cell crisis, Sinus tachycardia Condition: Good Disposition: HOME, SELF-CARE Instructions: Sinus Tachycardia ([facility]), Sickle Cell Crisis ([facility]) Referrals: ANDREW WILLIS MD [Primary Care Provider] - 01/29/18 (at your already scheduled appt ) GITA KRUEGER MD [ACTIVE STAFF] - 01/28/18 (at your already scheduled appt )
[2018-01-26 12:30] LABS: ALANINE AMINOTRANSFERASE 30 U/L (21-72); ALBUMIN 4.9 g/dL (3.5-5.0); ALKALINE PHOSPHATASE 137 U/L (38-126); ANION GAP 12 (5-19); ASPARTATE AMINO TRANSFERASE 72 U/L (17-59); BILIRUBIN,DIRECT 0.5 mg/dL (0.0-0.4); BILIRUBIN,TOTAL 3.3 mg/dL (0.2-1.3); BLOOD UREA NITROGEN 10 mg/dL (7-20); CALCIUM 9.7 mg/dL (8.4-10.2); CARBON DIOXIDE 28 mmol/L (22-30); CHLORIDE 102 mmol/L (98-107); GLUCOSE 107 mg/dL (75-110); POTASSIUM 4.8 mmol/L (3.6-5.0); SODIUM 141.9 mmol/L (137-145); TOTAL PROTEIN 8.4 g/dL (6.3-8.2)
[2018-01-26] MEDS ORDERED: DIPHENHYDRAMINE HCL 50 MG/ML VIAL IV ONE (12:34)
[2018-01-26] MEDS ORDERED: HYDROMORPHONE HCL INJ/PF 2 MG/ML AMPULE IV ONE ×2 (12:34→14:52)
[2018-01-26] MEDS ORDERED: PROCHLORPERAZINE EDISYLATE INJ 10 MG/2 ML VIAL IV ONE (12:34)
[2018-01-26 12:35] LABS: ANISOCYTOSIS 3+; OVALOCYTES 2+; PLATELET COMMENT ADEQUATE; POIKILOCYTOSIS 3+; POLYCHROMASIA SLIGHT; SICKLE RED CELLS 1+; TARGET CELLS 1+
--- NOTE | 2018-01-26 12:52 | RADIOLOGY REPORT (SQ) ---
EXAM DESCRIPTION: CHEST SINGLE VIEW COMPLETED DATE/TIME: 01/26/2018 12:45 pm REASON FOR STUDY: tachycardia COMPARISON: 01/20/2018 EXAM PARAMETERS: NUMBER OF VIEWS: One view. TECHNIQUE: Single frontal radiographic view of the chest acquired. RADIATION DOSE: NA LIMITATIONS: None. FINDINGS: LUNGS AND PLEURA: No opacities, masses or pneumothorax. No pleural effusion. MEDIASTINUM AND HILAR STRUCTURES: No masses. Contour normal. HEART AND VASCULAR STRUCTURES: Heart normal in size. Normal vasculature. BONES: No acute findings. HARDWARE: None in the chest. OTHER: No other significant finding. IMPRESSION: NO ACUTE RADIOGRAPHIC FINDING IN THE CHEST. TECHNICAL DOCUMENTATION: JOB ID: [id number] [employer]- All Rights Reserved Reading location - IP/workstation name: [email or web address]
--- NOTE | 2018-01-26 12:54 | RADIOLOGY REPORT (SQ) ---
EXAM DESCRIPTION: KNEE LEFT 4 VIEW COMPLETED DATE/TIME: 01/26/2018 12:45 pm REASON FOR STUDY: L knee pain, hx of L osteonecrosis COMPARISON: 12/04/2016 NUMBER OF VIEWS: Four views. TECHNIQUE: AP, lateral, and both oblique radiographic images acquired of the left knee. LIMITATIONS: None. FINDINGS: MINERALIZATION: Known osteonecrosis distal femur and proximal tibia. BONES: No acute fracture or dislocation. No worrisome bone lesions. JOINT: No effusion. SOFT TISSUES: No soft tissue swelling. No radio-opaque foreign body. OTHER: No other significant finding. IMPRESSION: Stable osteonecrosis. No acute findings. TECHNICAL DOCUMENTATION: JOB ID: [id number] [employer]- All Rights Reserved Reading location - IP/workstation name: [email or web address] [email or web address]
[2018-01-26 15:04] VITALS: BP 136/89
== END 2018-01-26 15:10 | disposition home or self-care (01) ==
LOC: ER 11:13
DX: D57.00 Hb-SS disease with crisis, unspecified (principal); R00.0 Tachycardia, unspecified; M25.562 Pain in left knee; Z90.49 Acquired absence of other specified parts of digestive tract
CPT/HCPCS: 96376; 99284; 96361; 96374; 96375; 36415; 85025; 85045; 80053; 71045; 73562; J1200; S0119; J3010; J1170; J0780; J7030

== ENCOUNTER 2018-02-01 21:50 | Emergency (ER) | payer MEDICAID ==
[2018-02-01] MEDS ORDERED: DIPHENHYDRAMINE HCL 50 MG/ML VIAL IV ONE (23:01)
[2018-02-01] MEDS ORDERED: HYDROMORPHONE HCL INJ/PF 2 MG/ML AMPULE IV ONE (23:01)
--- NOTE | 2018-02-01 23:08 | ER Document Report ---
ED General - General Chief Complaint: Sickle Cell Crisis Stated Complaint: SICKLE CELL, KNEE PAIN TRAVEL OUTSIDE OF THE [place] IN LAST 30 DAYS: No - HPI Notes: Patient is a 22-year-old male with history of sickle cell and avascular necrosis who presents to the ED complaining of another sickle cell crisis and left knee pain. Patient states that his only pain during this event is to his left knee. Patient states that when he ambulates the pain is worsened. He sees Rodriguez again on . Patient states that the pain does not radiate. He has been eating and drinking without difficulties. He has been urinating normal and having normal bowel movements. No other concerns or complaints. Denies any headache, fever, neck pain, URI, sore throat, chest pain, palpitations, syncope, cough, shortness of breath, wheeze, dyspnea, abdominal pain, nausea/vomiting/diarrhea, urinary retention, dysuria, hematuria, loss of control of bowel or bladder, numbness/tingling, saddle anesthesia, muscle paralysis/weakness, or rash. - Related Data Allergies/Adverse Reactions: Coconut * [Coconut] Allergy (Mild, Verified 01/26/18 11:14) transpore tape Allergy (Mild, Uncoded 01/26/18 11:14) Hives Past Medical History - Social History Smoking Status: Never Smoker Chew tobacco use (# tins/day): No Frequency of alcohol use: Rare Drug Abuse: None Family History: Reviewed & Not Pertinent, Arthritis, DM, Hypertension, Other - Sickle cell trait both parents and asthma Patient has suicidal ideation: No Patient has homicidal ideation: No Pulmonary Medical History: Reports: Hx Asthma, Hx Pneumonia Renal/ Medical History: Denies: Hx Peritoneal Dialysis Psychiatric Medical History: Denies: Hx Depression Past Surgical History: Reports: Hx Abdominal Surgery - Gallstones removal, Hx Cholecystectomy, Hx Orthopedic Surgery - Fluid drained from right foot, Hx Vascular Surgery - Port placement - Immunizations Immunizations up to date: Yes Hx Diphtheria, Pertussis, Tetanus Vaccination: Yes Hx Pneumococcal Vaccination: 01/15/13 Review of Systems - Review of Systems -: Yes All other systems reviewed and negative Physical Exam - Vital signs Vitals: Temp Pulse Resp BP Pulse Ox 98.9 F 110 H 18 139/88 H 95 02/01/18 21:55 02/01/18 21:55 02/01/18 21:55 02/01/18 21:55 02/01/18 21:55 - Notes Notes: PHYSICAL EXAMINATION: GENERAL: Well-appearing, well-nourished and in no acute distress. A&ox4. Answers questions appropriately. HEAD: Atraumatic, normocephalic. EYES: Pupils equal round and reactive to light, extraocular movements intact, sclera anicteric, conjunctiva are normal. ENT: Nares patent and without discharge. oropharynx clear without exudates. No tonsilar hypertrophy or erythema. Moist mucous membranes. NECK: Normal range of motion, supple without lymphadenopathy LUNGS: Breath sounds clear to auscultation bilaterally and equal. No wheezes rales or rhonchi. HEART: Regular rate and rhythm without murmurs, rubs, gallops. ABDOMEN: Soft, nontender, nondistended abdomen. No guarding, no rebound. No masses appreciated. Normal bowel sounds present. No CVA tenderness bilaterally. Musculoskeletal: Lt knee: FROM to passive/active. Strength 5+/5. N/V intact distal. Non-tender to palp. No obvious erythema, swelling, or ecchymosis/ warmth. Extremities: No cyanosis, clubbing, or edema b/l. Peripheral pulses 2+. Capillary refill less than 3 seconds. NEUROLOGICAL: Normal speech, normal gait. Normal sensory, motor exams PSYCH: Normal mood, normal affect. SKIN: Warm, Dry, normal turgor, no rashes or lesions noted. Course - Re-evaluation Re-evalutation: 02/01/18 23:06 we will provide patient with his normal treatment for his sickle crisis episodes. No indication at this time for a CXR. he usually receives 2mg dilaudid every hour x3 hours with 25mg benadryl IV and zofran IV with fluids. Vitals are currently acceptable. Labs ordered. 02/02/18 02:58 Patient is an afebrile, well-hydrated, 22-year-old male who presents to the ED with any sickle cell crisis with pain to his left knee. Vitals are acceptable. Pt currently has a HR of 90 on apical. PE is otherwise unremarkable for any neurovascular compromise, obvious tendon/ligament rupture, obvious fracture/ dislocation, septic joint. CBC, CMP, reticulocyte count were acceptable at this time. He has no significant tachycardia, tachypnea, or hypoxia. He is tolerating p.o. without any difficulties. Patient states that he is feeling much better and would like to go home. Patient states that he usually only gets admitted if the pain has not significantly improved. He does have an appointment scheduled with a specialist on . No other labs or imaging warranted at this time based on H&P. Low suspicion for any acute chest syndrome , sepsis, meningitis, severe dehydration. Conservative measures otherwise for symptoms. Recheck with your PCM in 3-5 days as well. Return to the ED with any worsening/concerning symptoms otherwise as reviewed discharge. Patient is in agreement. - Vital Signs Vital signs: Temp Pulse Resp BP Pulse Ox 98.9 F 110 H 20 139/64 H 99 02/01/18 21:55 02/01/18 21:55 02/02/18 00:03 02/02/18 00:03 02/02/18 00:03 - Laboratory Result Diagrams: 02/01/18 23:15 02/01/18 23:15 Laboratory results interpreted by me: 02/01/18 02/01/18 23:15 23:15 RBC 3.47 L Hgb 12.1 L Hct 34.5 L MCV 99 H MCH 34.8 H RDW 27.1 H Retic Count (auto) 7.90 H Absolute Retic 0.274 H Sodium 145.4 H BUN 22 H Total Bilirubin 2.1 H Direct Bilirubin 0.5 H Alkaline Phosphatase 156 H Total Protein 9.5 H Albumin 5.2 H Discharge - Discharge Clinical Impression: Sickle cell crisis Left knee pain Qualifiers: Chronicity: acute Qualified Code(s): M25.562 - Pain in left knee Condition: Stable Disposition: HOME, SELF-CARE Instructions: Sickle Cell Crisis ([facility]) Additional Instructions: Rest, Ice, Compression, Elevation Tylenol/ibuprofen as needed Light stretches daily Strength exercises as able Moist heat and massage may help F/u with your PCP in 3-5 days for a recheck Keep appointment with your [facility] specialist this Return to the ED with any worsening symptoms and/or development of fever, headache, chest pain, palpitations, syncope, shortness of breath, trouble breathing, abdominal pain, n/v/d, muscle weakness/paralysis, numbness/tingling, swelling, redness, or other worsening symptoms that are concerning to you. Forms: Elevated Blood Pressure Referrals: ANDREW WILLIS MD [Primary Care Provider] - Follow up in 3-5 days
[2018-02-01] MEDS ORDERED: ONDANSETRON HCL INJ/PF 4 MG/2 ML SDV IV ONE (23:10)
[2018-02-01 23:25] LABS: ABSOLUTE RETICS # 0.274 10^6/uL (0.028-0.122); HEMATOCRIT 34.5 % (37.9-51.0); HEMOGLOBIN 12.1 g/dL (13.5-17.0); MEAN CORPUSCULAR HEMOGLOBIN 34.8 pg (27.0-33.4); MEAN CORPUSCULAR VOLUME 99 fl (80-97); PLATELET COUNT 271 10^3/uL (150-450); RED BLOOD COUNT 3.47 10^6/uL (4.35-5.55); RED CELL DISTRIBUTION WIDTH 27.1 % (11.5-14.0)
[2018-02-01] MEDS: NORMAL SALINE 1000 ML 1,000 ML IV PRN (23:26)
[2018-02-01] MEDS: HYDROMORPHONE HCL INJ/PF 2 MG/ML AMPULE IV SCH (23:27)
[2018-02-01 23:33] LABS: ALBUMIN 5.2 g/dL (3.5-5.0); GLUCOSE 91 mg/dL (75-110); POTASSIUM 4.8 mmol/L (3.6-5.0); TOTAL PROTEIN 9.5 g/dL (6.3-8.2)
[2018-02-01 23:34] LABS: ALANINE AMINOTRANSFERASE 27 U/L (21-72); ALKALINE PHOSPHATASE 156 U/L (38-126); ANION GAP 16 (5-19); ASPARTATE AMINO TRANSFERASE 56 U/L (17-59); BILIRUBIN,DIRECT 0.5 mg/dL (0.0-0.4); BILIRUBIN,TOTAL 2.1 mg/dL (0.2-1.3); BLOOD UREA NITROGEN 22 mg/dL (7-20); CALCIUM 9.8 mg/dL (8.4-10.2); CARBON DIOXIDE 24 mmol/L (22-30); CHLORIDE 105 mmol/L (98-107); SODIUM 145.4 mmol/L (137-145)
[2018-02-01 23:52] LABS: ABSOLUTE LYMPHOCYTES# (MANUAL) 3.3 10^3/uL (0.5-4.7); ABSOLUTE MONOCYTES # (MANUAL) 0.4 10^3/uL (0.1-1.4); BASOPHILS % (MANUAL) 1 % (0-2); EOSINOPHILS % (MANUAL) 0 % (0-6); LYMPHOCYTES % (MANUAL) 36 % (13-45); MONOCYTES % (MANUAL) 4 % (3-13); NUCLEATED RED BLOOD CELLS 21 /100 WBC (0); SEGMENTED NEUTROPHILS % (MAN) 57 % (42-78); TOTAL CELLS COUNTED 100
[2018-02-02 00:02] LABS: ANISOCYTOSIS 3+; POLYCHROMASIA 2+; SICKLE RED CELLS 2+; TARGET CELLS 1+
[2018-02-02 00:03] LABS: POIKILOCYTOSIS 2+
[2018-02-02 00:13] LABS: WHITE BLOOD COUNT 7.2 10^3/uL (4.0-10.5)
[2018-02-02 00:18] LABS: PLATELET COMMENT ADEQUATE
[2018-02-02] MEDS: HYDROMORPHONE HCL INJ/PF 2 MG/ML AMPULE IV SCH ×3 (00:41→03:26)
[2018-02-02] MEDS: NORMAL SALINE 1000 ML 1,000 ML IV PRN (00:47)
[2018-02-02] MEDS ORDERED: DIPHENHYDRAMINE HCL 50 MG/ML VIAL IV ONE (01:37)
[2018-02-02 03:37] VITALS: BP 132/91
== END 2018-02-02 03:37 | disposition home or self-care (01) ==
LOC: ER 21:50
DX: D57.00 Hb-SS disease with crisis, unspecified (principal); M25.562 Pain in left knee; J45.909 Unspecified asthma, uncomplicated
CPT/HCPCS: 96376; 99284; 96361; 96374; 96375; 36415; 85025; 85045; 80053; J1200 ×2; J1170 ×2; J2405; J7030 ×2

== ENCOUNTER 2018-02-03 04:53 | Inpatient (IN) | payer MEDICAID ==
[2018-02-03] MEDS ORDERED: ONDANSETRON HCL INJ/PF 4 MG/2 ML SDV IV ONE ×2 (05:19→07:52)
[2018-02-03] MEDS ORDERED: DIPHENHYDRAMINE HCL 50 MG/ML VIAL IV ONE (05:19)
--- NOTE | 2018-02-03 05:25 | ER Document Report ---
ED Medical Screen (RME) - General Chief Complaint: Sickle Cell Crisis Stated Complaint: KNEE PAIN AND HEADACHE Time Seen by Provider: 02/03/18 05:18 TRAVEL OUTSIDE OF THE [place] IN LAST 30 DAYS: No - HPI Notes: 02/03/18 05:21 Patient is a 22-year-old male with a history of sickle cell who presents to the ED complaining of an acute episode of sickle cell with right knee pain and headache. Patient states that he has had headaches in the past, but never this bad. The pain does not radiate, but he does have light sensitivity. Patient states that otherwise his leg pain is typical for a sickle-cell episode. Home meds have not been helping. I did see this patient 2 days ago, but it was just his like at that time. Patient was treated and discharged without any complications. Patient states that he is otherwise eating and drinking without difficulties. He is urinating normally and having normal bowel movements. Patient states that he also felt feverish today. Denies any head injury, neck pain, changes in vision/speech/mentation/hearing, URI, sore throat, chest pain, palpitations, syncope, cough, shortness of breath, wheeze, dyspnea, abdominal pain, nausea/vomiting/diarrhea, urinary retention, dysuria, hematuria, loss of control of bowel or bladder, numbness/tingling, saddle anesthesia, muscle paralysis/weakness, or rash. I have treated and performed a rapid initial assessment of this patient. A comprehensive ED assessment and evaluation of the patient, analysis of test results and completion of medical decision making process will be conducted by additional ED providers. I did review CT with Dr. Cohn who is in agreement at this time. Other labs and meds ordered. Pt usually receives 3 doses of pain medication every hour prn along with zofran/benadryl/fluids. PHYSICAL EXAMINATION: GENERAL: Well-appearing, well-nourished and in no acute distress. A&Ox4. Answers questions appropriately. Eyes: PERRLA. No nystagmus. EOMI. LUNGS: Breath sounds clear to auscultation bilaterally and equal. No wheezes rales or rhonchi. HEART: Regular rate and rhythm without murmurs, rubs, gallops. Rt knee: FROM. Strength 5+/5. N/v intact distal. No erythema, swelling, or warmth. Extremities: No cyanosis, clubbing, or edema b/l. NEUROLOGICAL: Cranial nerves grossly intact. NIH 0. GCS 15. Normal speech, normal gait. PSYCH: Normal mood, normal affect. - Related Data Allergies/Adverse Reactions: Coconut * [Coconut] Allergy (Mild, Verified 01/26/18 11:14) transpore tape Allergy (Mild, Uncoded 01/26/18 11:14) Hives Past Medical History - Social History Family history: None Pulmonary Medical History: Reports: Hx Asthma, Hx Pneumonia Renal/ Medical History: Denies: Hx Peritoneal Dialysis Psychiatric Medical History: Denies: Hx Depression Past Surgical History: Reports: Hx Abdominal Surgery - Gallstones removal, Hx Cholecystectomy, Hx Orthopedic Surgery - Fluid drained from right foot, Hx Vascular Surgery - Port placement - Immunizations Immunizations up to date: Yes Hx Diphtheria, Pertussis, Tetanus Vaccination: Yes History of Influenza Vaccine for 06/2017 - 10/2017 Season: Yes Influenza Administration Date for 06/2017 - 10/2017 Season: 06/02/17 Physical Exam - Vital signs Vitals: Temp Pulse Resp BP Pulse Ox 98.0 F 93 18 129/88 H 93 02/03/18 05:10 02/03/18 05:10 02/03/18 05:10 02/03/18 05:10 02/03/18 05:10 Course - Vital Signs Vital signs: Temp Pulse Resp BP Pulse Ox 98.0 F 93 18 129/88 H 93 02/03/18 05:10 02/03/18 05:10 02/03/18 05:10 02/03/18 05:10 02/03/18 05:10 Doctor's Discharge - Discharge Referrals: ANDREW WILLIS MD [Primary Care Provider] - Follow up as needed
[2018-02-03] MEDS ORDERED: HYDROMORPHONE HCL INJ/PF 2 MG/ML AMPULE IV SCH (05:30)
[2018-02-03] MEDS: NORMAL SALINE 1000 ML 1,000 ML IV PRN ×3 (05:39→15:35)
--- NOTE | 2018-02-03 05:44 | RADIOLOGY REPORT (SQ) ---
EXAM DESCRIPTION: CT of the head without contrast CLINICAL HISTORY: headache, sickle cell COMPARISON: None available TECHNIQUE: Axial CT of the head obtained from the skull apex to the skull base without contrast. FINDINGS: No acute intracranial hemorrhage identified. No mass, mass effect, shift of the midline, abnormal extra-axial fluid collection or CT evidence of acute ischemic change identified. The ventricular system is unremarkable. No acute abnormalities of the supratentorial white matter, basal ganglia, cerebellum, or brainstem. The visualized paranasal sinuses and the mastoids are clear. No skull fracture identified. Visualized orbits and globes are unremarkable. Left periorbital piercing DLP:929.50 mGy-cm IMPRESSION: 1. No acute intracranial abnormality identified. This exam was performed according to our departmental dose-optimization program, which includes automated exposure control, adjustment of the mA and/or kV according to patient size and/or use of iterative reconstruction technique.
[2018-02-03] MEDS ORDERED: HYDROMORPHONE HCL INJ/PF 2 MG/ML AMPULE IV ONE ×2 (06:22→08:53)
[2018-02-03 06:58] LABS: HEMATOCRIT 28.9 % (37.9-51.0); MEAN CORPUSCULAR HEMOGLOBIN 34.2 pg (27.0-33.4); MEAN CORPUSCULAR HGB CONC 34.3 g/dL (32.0-36.0); MEAN CORPUSCULAR VOLUME 100 fl (80-97); PLATELET COUNT 247 10^3/uL (150-450); RED CELL DISTRIBUTION WIDTH 27.6 % (11.5-14.0); RETICULOCYTE COUNT (AUTO) 8.62 % (0.66-2.85); WHITE BLOOD COUNT 6.9 10^3/uL (4.0-10.5)
[2018-02-03 07:10] LABS: ALANINE AMINOTRANSFERASE 24 U/L (21-72); ALBUMIN 4.2 g/dL (3.5-5.0); ALKALINE PHOSPHATASE 137 U/L (38-126); ANION GAP 10 (5-19); ASPARTATE AMINO TRANSFERASE 54 U/L (17-59); BILIRUBIN,DIRECT 0.4 mg/dL (0.0-0.4); BILIRUBIN,TOTAL 2.3 mg/dL (0.2-1.3); BLOOD UREA NITROGEN 18 mg/dL (7-20); CALCIUM 9.3 mg/dL (8.4-10.2); CARBON DIOXIDE 25 mmol/L (22-30); CHLORIDE 107 mmol/L (98-107); GLUCOSE 89 mg/dL (75-110); POTASSIUM 4.5 mmol/L (3.6-5.0); SODIUM 142.3 mmol/L (137-145); TOTAL PROTEIN 7.8 g/dL (6.3-8.2)
[2018-02-03 07:43] LABS: HEMOGLOBIN 9.9 g/dL (13.5-17.0)
[2018-02-03 07:50] LABS: ABSOLUTE LYMPHOCYTES# (MANUAL) 2.5 10^3/uL (0.5-4.7); ABSOLUTE MONOCYTES # (MANUAL) 0.4 10^3/uL (0.1-1.4); ABSOLUTE NEUTROPHILS# (MANUAL) 3.8 10^3/uL (1.7-8.2); ANISOCYTOSIS 3+; BASOPHILS % (MANUAL) 0 % (0-2); EOSINOPHILS % (MANUAL) 3 % (0-6); LYMPHOCYTES % (MANUAL) 36 % (13-45); METAMYELOCYTES % (MANUAL) 1 % (0); MONOCYTES % (MANUAL) 6 % (3-13); NUCLEATED RED BLOOD CELLS 26 /100 WBC (0); POIKILOCYTOSIS 3+; POLYCHROMASIA 2+; SCHISTOCYTES SLIGHT; SEGMENTED NEUTROPHILS % (MAN) 54 % (42-78); SICKLE RED CELLS 1+; TOTAL CELLS COUNTED 100
[2018-02-03 07:51] LABS: HOWELL-JOLLY BODIES PRESENT; HYPOCHROMASIA 1+; OVALOCYTES 1+; PLATELET COMMENT ADEQUATE; TARGET CELLS SLIGHT
[2018-02-03] MEDS ORDERED: PROCHLORPERAZINE EDISYLATE INJ 10 MG/2 ML VIAL IV ONE (07:52)
[2018-02-03] MEDS ORDERED: KETOROLAC TROMETHAMINE INJ/PF 30 MG/1 ML SDV IV ONE (07:52)
--- NOTE | 2018-02-03 09:14 | RADIOLOGY REPORT (SQ) ---
EXAM DESCRIPTION: KNEE LEFT 3 VIEWS COMPLETED DATE/TIME: 02/03/2018 8:24 am REASON FOR STUDY: Left knee pain history of sickle cell osteonecrosi COMPARISON: 09/19/2014 NUMBER OF VIEWS: Three views. TECHNIQUE: AP, lateral, and sunrise patella radiographic images acquired of the left knee. LIMITATIONS: None. FINDINGS: MINERALIZATION: Patchy areas of sclerosis and lucency stable from the previous exam. BONES: No acute fracture or cortical collapse. JOINT: No effusion. SOFT TISSUES: No soft tissue swelling. No radio-opaque foreign body. OTHER: No other significant finding. IMPRESSION: Chronic stable changes related to the patient's underlying sickle cell disease. No acut e fracture or cortical collapse. TECHNICAL DOCUMENTATION: JOB ID: [id number] [employer]- All Rights Reserved Reading location - IP/workstation name: [email or web address]
--- NOTE | 2018-02-03 09:14 | RADIOLOGY REPORT (SQ) ---
EXAM DESCRIPTION: CHEST 2 VIEWS COMPLETED DATE/TIME: 02/03/2018 8:24 am REASON FOR STUDY: sickle cell COMPARISON: 09/18/2017 EXAM PARAMETERS: NUMBER OF VIEWS: two views TECHNIQUE: Digital Frontal and Lateral radiographic views of the chest acquired. RADIATION DOSE: NA LIMITATIONS: none FINDINGS: LUNGS AND PLEURA: Minimal chronic changes. No acute opacities. MEDIASTINUM AND HILAR STRUCTURES: No masses or contour abnormalities. HEART AND VASCULAR STRUCTURES: Heart normal size. No evidence for failure. BONES: Bony changes of sickle disease. HARDWARE: None in the chest. OTHER: No other significant finding. IMPRESSION: NO ACUTE RADIOGRAPHIC FINDING IN THE CHEST. TECHNICAL DOCUMENTATION: JOB ID: [id number] [employer]- All Rights Reserved Reading location - IP/workstation name: [email or web address]
--- NOTE | 2018-02-03 09:52 | ER Document Report ---
ED General - General Chief Complaint: Sickle Cell Crisis Stated Complaint: KNEE PAIN AND HEADACHE Time Seen by Provider: 02/03/18 05:18 TRAVEL OUTSIDE OF THE [place] IN LAST 30 DAYS: No - HPI Patient complains to provider of: Headache knee pain Notes: Patient coming in for evaluation of headache and knee pain. Patient states frontal headache ongoing for approximate 24 hours no nausea no vomiting no fevers no chills no history of trauma. Patient denies history of osteonecrosis of the left knee with chronic pain. Patient states pain is worsened patient does have a history of sickle cell disease patient states no relief with his home medications. - Related Data Allergies/Adverse Reactions: Coconut * [Coconut] Allergy (Mild, Verified 01/26/18 11:14) transpore tape Allergy (Mild, Uncoded 01/26/18 11:14) Hives Past Medical History - Social History Smoking Status: Never Smoker Frequency of alcohol use: None Drug Abuse: None Family History: Reviewed & Not Pertinent, Arthritis, DM, Hypertension, Other - Sickle cell trait both parents and asthma Patient has suicidal ideation: No Patient has homicidal ideation: No Pulmonary Medical History: Reports: Hx Asthma, Hx Pneumonia Renal/ Medical History: Denies: Hx Peritoneal Dialysis Psychiatric Medical History: Denies: Hx Depression Past Surgical History: Reports: Hx Abdominal Surgery - Gallstones removal, Hx Cholecystectomy, Hx Orthopedic Surgery - Fluid drained from right foot, Hx Vascular Surgery - Port placement - Immunizations Immunizations up to date: Yes Hx Diphtheria, Pertussis, Tetanus Vaccination: Yes Hx Pneumococcal Vaccination: 01/15/13 Review of Systems - Review of Systems Constitutional: No symptoms reported EENT: No symptoms reported Cardiovascular: No symptoms reported Respiratory: No symptoms reported Gastrointestinal: No symptoms reported Genitourinary: No symptoms reported Male Genitourinary: No symptoms reported Musculoskeletal: Other - Knee pain Skin: No symptoms reported Hematologic/Lymphatic: No symptoms reported Neurological/Psychological: Headaches -: Yes All other systems reviewed and negative Physical Exam - Vital signs Vitals: Temp Pulse Resp BP Pulse Ox 98.0 F 93 18 129/88 H 93 02/03/18 05:10 02/03/18 05:10 02/03/18 05:10 02/03/18 05:10 02/03/18 05:10 Interpretation: Normal - General General appearance: Appears well, Alert - HEENT Head: Normocephalic, Atraumatic Eyes: Normal Pupils: PERRL - Respiratory Respiratory status: No respiratory distress Chest status: Nontender Breath sounds: Normal Chest palpation: Normal - Cardiovascular Rhythm: Regular Heart sounds: Normal auscultation Murmur: No - Abdominal Inspection: Normal Distension: No distension Bowel sounds: Normal Tenderness: Nontender Organomegaly: No organomegaly - Back Back: Normal, Nontender - Extremities General upper extremity: Normal inspection, Nontender, Normal color, Normal ROM , Normal temperature General lower extremity: Normal inspection, Nontender, Normal color, Normal ROM , Normal temperature, Normal weight bearing. No: Jeannine's sign - Neurological Neuro grossly intact: Yes Cognition: Normal Orientation: AAOx4 [place] Coma Scale Eye Opening: Spontaneous [place] Coma Scale Verbal: Oriented Rodo Coma Scale Motor: Obeys Commands Rodo Coma Scale Total: 15 Speech: Normal Motor strength normal: LUE, RUE, LLE, RLE Sensory: Normal - Psychological Associated symptoms: Normal affect, Normal mood - Skin Skin Temperature: Warm Skin Moisture: Dry Skin Color: Normal Course - Re-evaluation Re-evalutation: 02/03/18 15:06 Patient was evaluated after studies show increased reticulocyte count with lowering of his hemoglobin in the last 48 hours to 2 g from 12-10 approximately patient also now requiring small amount of oxygen to stay within normal saturations. Patient was cannula 2 L. Did discuss the findings with the PCP agrees to admit the patient to telemetry at this time patient denies any chest pain no fevers no signs of acute chest syndrome - Vital Signs Vital signs: Temp Pulse Resp BP Pulse Ox 98.5 F 84 12 130/89 H 97 02/03/18 14:00 02/03/18 14:00 02/03/18 14:00 02/03/18 14:00 02/03/18 14:00 - Laboratory Result Diagrams: 02/03/18 06:39 02/03/18 06:39 Laboratory results interpreted by me: 02/03/18 02/03/18 06:39 06:39 RBC 2.90 L Hgb 9.9 L D Hct 28.9 L MCV 100 H MCH 34.2 H RDW 27.6 H Metamyelocytes % 1 H Retic Count (auto) 8.62 H Absolute Retic 0.250 H Total Bilirubin 2.3 H Alkaline Phosphatase 137 H Discharge - Discharge Clinical Impression: Knee osteonecrosis, left, Sickle cell anemia, Sickle cell crisis Condition: Good Disposition: ADMITTED INPATIENT Admitting Provider: Maximino Unit Admitted: Telemetry
[2018-02-03] MEDS: MORPHINE SULFATE 10 MG/ML INJ IV PRN ×2 (15:42→20:08)
--- NOTE | 2018-02-03 18:26 | PDOC H&P ---
History of Present Illness Admission Date/PCP: 02/03/18 09:56 ANDREW TESSIEAMADACésar Patient complains of: Worsening knee joint pain and headache History of Present Illness: MARINO POZO is a 22 year old male known to my practice who presented with flare up of his usual sickle cell disease pain. Patient reported compliance with his home pain medication. He reported knee pain and headache. He denied any recent trauma or instrumentation. He was seen at the ED recently and discharged home after evaluation and treatment. He claimed minimal improvement in his symptoms. He denied any fever but experience chills. There is no definite fever or chills. His ED evaluation was significant for episodes of tachypnea that is probably related to his pain exacerbation. His laboratory evaluation did suggest ongoing hemolytic process comparative to his recent visit laboratory evaluation. His X ray did suggest stable left knee osteonecrosis. His head CT scan was devoid of any acute process. Past Medical History Pulmonary Medical History: Reports: Asthma, Pneumonia Psychiatric Medical History: Denies: Depression Hematology: Reports: Anemia, Sickle Cell Disease, Bleeding Tendencies Past Surgical History Past Surgical History: Reports: Cholecystectomy, Orthopedic Surgery - Fluid drained from right foot, Vascular Surgery - Port placement Social History Information Source: Patient Smoking Status: Never Smoker Frequency of Alcohol Use: Rare Hx Recreational Drug Use: No Drugs: None Hx Prescription Drug Abuse: No - Advance Directive Resuscitation Status: Full Code Family History Family History: Reviewed & Not Pertinent, Arthritis, DM, Hypertension, Other - Sickle cell trait both parents and asthma Parental Family History Reviewed: Yes Children Family History Reviewed: Yes Sibling(s) Family History Reviewed.: Yes Medication/Allergy Home Medications: Enoxaparin Sodium [Lovenox Inj 40 Mg/0.4 Ml Disp.Syrin] 40 mg SUBCUT DAILY 02/03 Fentanyl [Duragesic 75 Mcg/Hr Transdermal Patch] 1 each TD Q3D 02/03/18 Folic Acid [Folvite 1 mg Tablet] 1 mg PO DAILY 02/03/18 Hydroxyurea [Hydrea 500 Mg Capsule] 1,000 mg PO SUTUTHSA@1000 02/03/18 Hydroxyurea [Hydrea 500 Mg Capsule] 1,500 mg PO MOWEFR@1000 02/03/18 Oxycodone HCl [Oxy-Ir 5 mg Tablet] 15 mg PO Q4HP PRN 02/03/18 Allergies/Adverse Reactions: Coconut * [Coconut] Allergy (Mild, Verified 01/26/18 11:14) transpore tape Allergy (Mild, Uncoded 01/26/18 11:14) Hives Review of Systems Constitutional: PRESENT: chills Eyes: PRESENT: visual disturbances Ears: PRESENT: hearing changes Nose, Mouth, and Throat: ABSENT: as per HPI, headache(s), mouth pain, sore throat, vertigo, other Cardiovascular: ABSENT: chest pain, dyspnea on exertion, edema, orthropnea, palpitations Respiratory: ABSENT: cough, hemoptysis Gastrointestinal: ABSENT: abdominal pain, constipation, diarrhea, hematemesis, hematochezia, nausea, vomiting Genitourinary: ABSENT: dysuria, hematuria Musculoskeletal: ABSENT: joint swelling Integumentary: ABSENT: rash, wounds Neurological: ABSENT: abnormal gait, abnormal speech, confusion, dizziness, focal weakness, syncope Psychiatric: ABSENT: anxiety, depression, homidical ideation, suicidal ideation Endocrine: ABSENT: cold intolerance, heat intolerance, polydipsia, polyuria Hematologic/Lymphatic: ABSENT: easy bleeding, easy bruising, lymphadenopathy Allergic/Immunologic: ABSENT: seasonal rhinorrhea Physical Exam Vital Signs: Temp Pulse Resp BP Pulse Ox 98.5 F 84 12 130/89 H 97 02/03/18 14:00 02/03/18 14:00 02/03/18 14:00 02/03/18 14:00 02/03/18 14:00 Intake & Output 02/02/18 02/03/18 02/04/18 06:59 06:59 06:59 Weight 57.153 kg General appearance: PRESENT: mild distress - due to sickle cell disease pain crisis Head exam: PRESENT: atraumatic, normocephalic Eye exam: PRESENT: conjunctiva pink, EOMI, PERRLA. ABSENT: scleral icterus Mouth exam: PRESENT: moist Neck exam: PRESENT: full ROM. ABSENT: carotid bruit, JVD, lymphadenopathy, thyromegaly Respiratory exam: PRESENT: clear to auscultation ethan Cardiovascular exam: PRESENT: RRR. ABSENT: diastolic murmur, rubs, systolic murmur Pulses: PRESENT: normal dorsalis pedis pul, +2 pedal pulses bilateral Vascular exam: PRESENT: normal capillary refill. ABSENT: pallor GI/Abdominal exam: PRESENT: normal bowel sounds, soft. ABSENT: distended, guarding, mass, organolmegaly, rebound, tenderness Rectal exam: PRESENT: deferred Extremities exam: ABSENT: pedal edema Musculoskeletal exam: PRESENT: tenderness - left knee Neurological exam: PRESENT: alert, awake, oriented to person, oriented to place , oriented to time, oriented to situation, CN II-XII grossly intact. ABSENT: motor sensory deficit Psychiatric exam: PRESENT: appropriate affect, normal mood. ABSENT: homicidal ideation, suicidal ideation Skin exam: PRESENT: dry, intact, warm. ABSENT: cyanosis, rash Results Impressions: Head CT 02/03/18 05:20 IMPRESSION: 1. No acute intracranial abnormality identified. This exam was performed according to our departmental dose-optimization program, which includes automated exposure control, adjustment of the mA and/or kV according to patient size and/or use of iterative reconstruction technique. Chest X-Ray 02/03/18 07:53 IMPRESSION: NO ACUTE RADIOGRAPHIC FINDING IN THE CHEST. Knee X-Ray 02/03/18 07:53 IMPRESSION: Chronic stable changes related to the patient's underlying sickle cell disease. No acute fracture or cortical collapse. Assessment & Plan - Diagnosis (1) Sickle cell disease with crisis Is this a current diagnosis for this admission?: Yes Plan: See admitting attending physician orders. 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 Is this a current diagnosis for this admission?: Yes Plan: See admitting attending physician orders. (3) Knee osteonecrosis, left Is this a current diagnosis for this admission?: Yes Plan: See admitting attending physician orders. (4) Asthma Qualifiers: Asthma severity: mild Asthma complication type: uncomplicated Is this a current diagnosis for this admission?: Yes Plan: See admitting attending physician orders. - Time Time Spent: 50 to 70 Minutes Medications reviewed and adjusted accordingly: Yes Anticipated discharge: Home Within: Other - Inpatient Certification Based on my medical assessment, after consideration of the patient's comorbidities, presenting symptoms, or acuity I expect that the services needed warrant INPATIENT care.: Yes I certify that my determination is in accordance with my understanding of Medicare's requirements for reasonable and necessary INPATIENT services [42 CFR 412.3e].: Yes Medical Necessity: Need Close Monitoring Due to Risk of Patient Decompensation, Need For IV Fluids, Need For Continuous Telemetry Monitoring, Need for Pain Control, Risk of Complication if Not Cared For in Hospital Post Hospital Care: D/C Master Black Belt Documentation - Plan Summary Plan Summary: See admitting attending physician orders.
[2018-02-03] MEDS ORDERED: FENTANYL 75 MCG/HR PATCH.TD72 TD SCH (20:00)
[2018-02-04] MEDS: MORPHINE SULFATE 10 MG/ML INJ IV PRN ×6 (00:36→21:49)
[2018-02-04 07:18] LABS: MEAN CORPUSCULAR VOLUME 101 fl (80-97)
[2018-02-04 07:22] LABS: HEMATOCRIT 31.1 % (37.9-51.0); MEAN CORPUSCULAR HEMOGLOBIN 35.9 pg (27.0-33.4); MEAN CORPUSCULAR HGB CONC 35.5 g/dL (32.0-36.0); PLATELET COUNT 282 10^3/uL (150-450); RED BLOOD COUNT 3.07 10^6/uL (4.35-5.55); RED CELL DISTRIBUTION WIDTH 29.3 % (11.5-14.0); WHITE BLOOD COUNT 6.9 10^3/uL (4.0-10.5)
[2018-02-04 07:43] LABS: ALANINE AMINOTRANSFERASE 29 U/L (21-72); ALBUMIN 4.2 g/dL (3.5-5.0); ALKALINE PHOSPHATASE 130 U/L (38-126); ANION GAP 11 (5-19); ASPARTATE AMINO TRANSFERASE 56 U/L (17-59); BILIRUBIN,DIRECT 0.6 mg/dL (0.0-0.4); BILIRUBIN,TOTAL 1.6 mg/dL (0.2-1.3); BLOOD UREA NITROGEN 11 mg/dL (7-20); CALCIUM 9.1 mg/dL (8.4-10.2); CARBON DIOXIDE 27 mmol/L (22-30); CHLORIDE 104 mmol/L (98-107); GLUCOSE 96 mg/dL (75-110); POTASSIUM 4.9 mmol/L (3.6-5.0); SODIUM 141.5 mmol/L (137-145); TOTAL PROTEIN 7.6 g/dL (6.3-8.2)
--- NOTE | 2018-02-04 07:57 | PDOC PROGRESS REPORT ---
Subjective Progress Note for:: 02/04/18 Subjective:: Patient continue to experience left knee joint pain. No chest pain or difficulty with breathing. No fever or chills. Pain is fairly controlled on current medication management and use of K-PAD. Reason For Visit: SICKLE CELL DISEASE IN HEMOLYTIC AND PAIN CRISES Physical Exam Vital Signs: Temp Pulse Resp BP Pulse Ox 97.9 F 85 16 118/75 99 02/04/18 04:29 02/04/18 04:29 02/04/18 04:29 02/04/18 04:29 02/04/18 04:29 Intake & Output 02/03/18 02/04/18 02/05/18 06:59 06:59 06:59 Intake Total 3501 Output Total 1800 Balance 1701 Weight 57.2 kg General appearance: PRESENT: mild distress - from sickle disease related pain crisis Head exam: PRESENT: atraumatic, normocephalic Eye exam: PRESENT: conjunctiva pink, EOMI, PERRLA. ABSENT: scleral icterus Mouth exam: PRESENT: moist Respiratory exam: PRESENT: clear to auscultation ethan Cardiovascular exam: PRESENT: RRR. ABSENT: diastolic murmur, rubs, systolic murmur GI/Abdominal exam: PRESENT: normal bowel sounds, soft. ABSENT: distended, guarding, mass, organolmegaly, rebound, tenderness Extremities exam: ABSENT: pedal edema Musculoskeletal exam: PRESENT: tenderness - left knee joint to palpation Neurological exam: PRESENT: alert, awake, oriented to person, oriented to place , oriented to time, oriented to situation, CN II-XII grossly intact. ABSENT: motor sensory deficit Psychiatric exam: PRESENT: appropriate affect, normal mood. ABSENT: homicidal ideation, suicidal ideation Skin exam: PRESENT: dry, intact, warm. ABSENT: cyanosis, rash Results Laboratory Results: 02/04/18 06:24 02/04/18 06:24 Sodium 141.5 Potassium 4.9 Chloride 104 Carbon Dioxide 27 Anion Gap 11 BUN 11 Creatinine 0.72 Est GFR ( Amer) > 60 Est GFR (Non-Af Amer) > 60 Glucose 96 Calcium 9.1 Total Bilirubin 1.6 H AST 56 ALT 29 Alkaline Phosphatase 130 H Total Protein 7.6 Albumin 4.2 Impressions: Head CT 02/03/18 05:20 IMPRESSION: 1. No acute intracranial abnormality identified. This exam was performed according to our departmental dose-optimization program, which includes automated exposure control, adjustment of the mA and/or kV according to patient size and/or use of iterative reconstruction technique. Chest X-Ray 02/03/18 07:53 IMPRESSION: NO ACUTE RADIOGRAPHIC FINDING IN THE CHEST. Knee X-Ray 02/03/18 07:53 IMPRESSION: Chronic stable changes related to the patient's underlying sickle cell disease. No acute fracture or cortical collapse. Assessment & Plan - Diagnosis (1) Sickle cell disease with crisis Is this a current diagnosis for this admission?: Yes Plan: See attending physician orders. Continue current IV fluid support, supplemental oxygen and pain management. 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 Is this a current diagnosis for this admission?: Yes Plan: See attending physician orders. Continue current IV fluid support, supplemental oxygen and pain management. (3) Knee osteonecrosis, left Is this a current diagnosis for this admission?: Yes Plan: See attending physician orders. Continue current pain management. (4) Asthma Qualifiers: Asthma severity: mild Asthma complication type: uncomplicated Is this a current diagnosis for this admission?: Yes Plan: See attending physician orders. Continue current management. - Time Time Spent with patient: 25-34 minutes Medications reviewed and adjusted accordingly: Yes Anticipated discharge: Home Within: Other - Inpatient Certification Based on my medical assessment, after consideration of the patient's comorbidities, presenting symptoms, or acuity I expect that the services needed warrant INPATIENT care.: Yes I certify that my determination is in accordance with my understanding of Medicare's requirements for reasonable and necessary INPATIENT services [42 CFR 412.3e].: Yes Medical Necessity: Need Close Monitoring Due to Risk of Patient Decompensation, Need For IV Fluids, Need For Continuous Telemetry Monitoring, Need for Pain Control, Risk of Complication if Not Cared For in Hospital Post Hospital Care: D/C Manager Process 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 Continue current IV fluid support, supplemental oxygen and pain management.
[2018-02-04 08:19] LABS: ABSOLUTE LYMPHOCYTES# (MANUAL) 3.5 10^3/uL (0.5-4.7); ABSOLUTE MONOCYTES # (MANUAL) 0.3 10^3/uL (0.1-1.4); ABSOLUTE NEUTROPHILS# (MANUAL) 2.8 10^3/uL (1.7-8.2); BASOPHILS % (MANUAL) 1 % (0-2); EOSINOPHILS % (MANUAL) 3 % (0-6); LYMPHOCYTES % (MANUAL) 50 % (13-45); MONOCYTES % (MANUAL) 5 % (3-13); NUCLEATED RED BLOOD CELLS 28 /100 WBC (0); SEGMENTED NEUTROPHILS % (MAN) 41 % (42-78); TOTAL CELLS COUNTED 100
[2018-02-04 08:21] LABS: ANISOCYTOSIS 4+; OVALOCYTES 2+; POIKILOCYTOSIS 3+; POLYCHROMASIA 2+; SCHISTOCYTES SLIGHT; SICKLE RED CELLS 1+; TARGET CELLS SLIGHT
[2018-02-04 08:22] LABS: PLATELET COMMENT ADEQUATE; PLATELET GIANT PRESENT; PLATELET LARGE PRESENT
[2018-02-04] MEDS: ENOXAPARIN SODIUM INJ 40 MG/0.4 ML DISP.SYRIN SUBCUT SCH (09:28)
[2018-02-04] MEDS: FOLIC ACID 1 MG TABLET PO SCH (09:29)
[2018-02-04] MEDS ORDERED: (PENDING PHARMACY ID) (Enoxaparin Sodium 40 MG) SUBCUT SCH (10:00)
[2018-02-04] MEDS ORDERED: HYDROXYUREA 500 MG CAPSULE PO SCH (10:00)
[2018-02-04] MEDS: NORMAL SALINE 1000 ML 1,000 ML IV PRN (13:34)
[2018-02-05] MEDS: MORPHINE SULFATE 10 MG/ML INJ IV PRN ×2 (02:06→06:54)
--- NOTE | 2018-02-05 07:41 | PDOC PROGRESS REPORT ---
Subjective Progress Note for:: 02/05/18 Subjective:: Patient reported some degree of improvement in his pain level. He was able to ambulate on the floor yesterday. Ho chest pain or difficulty with breathing. No fever, chills, nausea or vomiting. Reason For Visit: SICKLE CELL DISEASE IN HEMOLYTIC AND PAIN CRISES Physical Exam Vital Signs: Temp Pulse Resp BP Pulse Ox 98.3 F 91 14 130/87 H 97 02/04/18 23:29 02/05/18 02:00 02/04/18 23:29 02/04/18 23:29 02/04/18 23:29 Intake & Output 02/04/18 02/05/18 02/06/18 06:59 06:59 06:59 Intake Total 3501 3278 Output Total 1800 1700 Balance 1701 1578 Weight 57.2 kg 57.3 kg Physical Exam: General appearance: PRESENT: mild distress - from sickle disease related pain crisis Head exam: PRESENT: atraumatic, normocephalic Eye exam: PRESENT: conjunctiva pink, EOMI, PERRLA. ABSENT: scleral icterus Mouth exam: PRESENT: moist Respiratory exam: PRESENT: clear to auscultation ethan Cardiovascular exam: PRESENT: RRR. ABSENT: diastolic murmur, rubs, systolic murmur GI/Abdominal exam: PRESENT: normal bowel sounds, soft. ABSENT: distended, guarding, mass, organomegaly, rebound, tenderness Extremities exam: ABSENT: pedal edema Musculoskeletal exam: PRESENT: tenderness - improved left knee joint to palpation and range of motion Neurological exam: PRESENT: alert, awake, oriented to person, oriented to place , oriented to time, oriented to situation, CN II-XII grossly intact. ABSENT: motor sensory deficit Psychiatric exam: PRESENT: appropriate affect, normal mood. ABSENT: homicidal ideation, suicidal ideation Skin exam: PRESENT: dry, intact, warm. ABSENT: cyanosis, rash Results Laboratory Results: 02/04/18 06:24 02/04/18 06:24 02/04/18 02/04/18 06:24 06:24 WBC 6.9 RBC 3.07 L Hgb 11.0 L Hct 31.1 L MCV 101 H MCH 35.9 H MCHC 35.5 RDW 29.3 H Plt Count 282 Seg Neutrophils % Not Reportable Lymphocytes % Not Reportable Monocytes % Not Reportable Eosinophils % Not Reportable Basophils % Not Reportable Absolute Neutrophils Not Reportable Absolute Lymphocytes Not Reportable Absolute Monocytes Not Reportable Absolute Eosinophils Not Reportable Absolute Basophils Not Reportable Sodium 141.5 Potassium 4.9 Chloride 104 Carbon Dioxide 27 Anion Gap 11 BUN 11 Creatinine 0.72 Est GFR ( Amer) > 60 Est GFR (Non-Af Amer) > 60 Glucose 96 Calcium 9.1 Total Bilirubin 1.6 H AST 56 ALT 29 Alkaline Phosphatase 130 H Total Protein 7.6 Albumin 4.2 Impressions: Head CT 02/03/18 05:20 IMPRESSION: 1. No acute intracranial abnormality identified. This exam was performed according to our departmental dose-optimization program, which includes automated exposure control, adjustment of the mA and/or kV according to patient size and/or use of iterative reconstruction technique. Chest X-Ray 02/03/18 07:53 IMPRESSION: NO ACUTE RADIOGRAPHIC FINDING IN THE CHEST. Knee X-Ray 02/03/18 07:53 IMPRESSION: Chronic stable changes related to the patient's underlying sickle cell disease. No acute fracture or cortical collapse. Assessment & Plan - Diagnosis (1) Sickle cell disease with crisis Is this a current diagnosis for this admission?: Yes Plan: See attending physician orders. Continue current IV fluid support, supplemental oxygen. Transition to preadmission home oral medication for pain management. 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 Is this a current diagnosis for this admission?: Yes Plan: See attending physician orders. Continue current IV fluid support, supplemental oxygen and pain management. (3) Knee osteonecrosis, left Is this a current diagnosis for this admission?: Yes Plan: See attending physician orders. Continue current pain management. (4) Asthma Qualifiers: Asthma severity: mild Asthma complication type: uncomplicated Is this a current diagnosis for this admission?: Yes Plan: See attending physician orders. Continue current management. - Time Time Spent with patient: 25-34 minutes Medications reviewed and adjusted accordingly: Yes Anticipated discharge: Home Within: Other - Inpatient Certification Based on my medical assessment, after consideration of the patient's comorbidities, presenting symptoms, or acuity I expect that the services needed warrant INPATIENT care.: Yes I certify that my determination is in accordance with my understanding of Medicare's requirements for reasonable and necessary INPATIENT services [42 CFR 412.3e].: Yes Medical Necessity: Need Close Monitoring Due to Risk of Patient Decompensation, Need For IV Fluids, Need For Continuous Telemetry Monitoring, Need for Pain Control, Risk of Complication if Not Cared For in Hospital Post Hospital Care: D/C Dovetailer 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
[2018-02-05] MEDS ORDERED: HYDROXYUREA 500 MG CAPSULE PO SCH (10:00)
[2018-02-05] MEDS: OXYCODONE HCL IR 5 MG TABLET PO PRN ×3 (10:58→20:10)
[2018-02-05] MEDS: ENOXAPARIN SODIUM INJ 40 MG/0.4 ML DISP.SYRIN SUBCUT SCH (10:59)
[2018-02-05] MEDS: FOLIC ACID 1 MG TABLET PO SCH (10:59)
[2018-02-05] MEDS: NORMAL SALINE 1000 ML 1,000 ML IV PRN ×2 (11:01→22:04)
[2018-02-06] MEDS: OXYCODONE HCL IR 5 MG TABLET PO PRN ×2 (01:33→06:14)
--- NOTE | 2018-02-06 07:41 | PDOC DISCHARGE SUMMARY ---
General - Admit/Disc Date/PCP Admission Date/Primary Care Provider: 02/03/18 09:56 ANDREW LAZARO Discharge Date: 02/06/18 - Discharge Diagnosis (1) Sickle cell disease with crisis Is this a current diagnosis for this admission?: Yes Summary: improved pain and hemolytic process 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 Is this a current diagnosis for this admission?: Yes Summary: stable (3) Knee osteonecrosis, left Is this a current diagnosis for this admission?: Yes Summary: Resolving pain and improve function (4) Asthma Is this a current diagnosis for this admission?: Yes Summary: stable - Additional Information Resuscitation Status: Full Code Home Medications: Enoxaparin Sodium [Lovenox Inj 40 mg/0.4 ml Disp.syrin] 40 mg SUBCUT DAILY 02/03 Fentanyl [Duragesic 75 Mcg/Hr Transdermal Patch] 1 each TD Q3D 02/03/18 Folic Acid [Folvite 1 mg Tablet] 1 mg PO DAILY 02/03/18 Hydroxyurea [Hydrea 500 mg Capsule] 1,000 mg PO SUTUTHSA@1000 02/03/18 Hydroxyurea [Hydrea 500 mg Capsule] 1,500 mg PO MOWEFR@1000 02/03/18 Oxycodone HCl [Oxy-Ir 5 mg Tablet] 15 mg PO Q4HP PRN 02/03/18 History of Present Illness History of Present Illness: MARINO POZO is a 22 year old male known to my practice who presented with flare up of his usual sickle cell disease pain. Patient reported compliance with his home pain medication. He reported knee pain and headache. He denied any recent trauma or instrumentation. He was seen at the ED recently and discharged home after evaluation and treatment. He claimed minimal improvement in his symptoms. He denied any fever but experience chills. There is no definite fever or chills. His ED evaluation was significant for episodes of tachypnea that is probably related to his pain exacerbation. His laboratory evaluation did suggest ongoing hemolytic process comparative to his recent visit laboratory evaluation. His X ray did suggest stable left knee osteonecrosis. His head CT scan was devoid of any acute process. Hospital Course Hospital Course: Patient responded to IV Morphine for pain management, IV fluid support and supplemental oxygen therapy. he was able to transition to oral medication management for pain control and have remain stable over last 24 hours. he is agreeable to discharge home today. he will follow up with Dr Carlos for his sickle cell disease and pain management on outpatient. he will follow up with me in the office as instructed upon discharge for his asthma and other medical issues management. Physical Exam Vital Signs: Temp Pulse Resp BP Pulse Ox 98.1 F 100 16 132/78 H 96 02/06/18 04:17 02/06/18 04:17 02/06/18 04:17 02/06/18 04:17 02/06/18 04:17 Intake & Output 02/05/18 02/06/18 02/07/18 06:59 06:59 06:59 Intake Total 3778 4113 Output Total 1700 3715 Balance 2078 398 Weight 57.3 kg 60.4 kg Physical Exam: General appearance: PRESENT: mild distress - from sickle disease related pain crisis Head exam: PRESENT: atraumatic, normocephalic Eye exam: PRESENT: conjunctiva pink, EOMI, PERRLA. ABSENT: pallor, scleral icterus Mouth exam: PRESENT: moist Respiratory exam: PRESENT: clear to auscultation ethan Cardiovascular exam: PRESENT: RRR. ABSENT: diastolic murmur, rubs, systolic murmur GI/Abdominal exam: PRESENT: normal bowel sounds, soft. ABSENT: distended, guarding, mass, organomegaly, rebound, tenderness Extremities exam: ABSENT: pedal edema Musculoskeletal exam: PRESENT: tenderness - improved left knee joint to palpation and range of motion Neurological exam: PRESENT: alert, awake, oriented to person, oriented to place , oriented to time, oriented to situation, CN II-XII grossly intact. ABSENT: motor sensory deficit Psychiatric exam: PRESENT: appropriate affect, normal mood. ABSENT: homicidal ideation, suicidal ideation Skin exam: PRESENT: dry, intact, warm. ABSENT: cyanosis, rash Results Laboratory Results: 02/04/18 06:24 02/04/18 06:24 Impressions: Head CT 02/03/18 05:20 IMPRESSION: 1. No acute intracranial abnormality identified. This exam was performed according to our departmental dose-optimization program, which includes automated exposure control, adjustment of the mA and/or kV according to patient size and/or use of iterative reconstruction technique. Chest X-Ray 02/03/18 07:53 IMPRESSION: NO ACUTE RADIOGRAPHIC FINDING IN THE CHEST. Knee X-Ray 02/03/18 07:53 IMPRESSION: Chronic stable changes related to the patient's underlying sickle cell disease. No acute fracture or cortical collapse. Qualifiers - * PATIENT BEING DISCHARGED WITH ANY OF THE FOLLOWING DIAGNOSIS: No Plan Discharge Plan: D/C home today. Follow up with Dr Carlos as schedule and with me as instructed upon discharge.
[2018-02-06 08:10] VITALS: BP 135/82
== END 2018-02-06 08:30 | disposition home or self-care (01) | DRG 812 ==
LOC: ER 04:53 → EH 09:56 → 5 13:44
PROVIDERS: ADMIT Internal Medicine Geriatric Medicine; ATTEND Internal Medicine Geriatric Medicine
DX: D57.00 Hb-SS disease with crisis, unspecified (principal); M87.9 Osteonecrosis, unspecified; J45.909 Unspecified asthma, uncomplicated; Z91.018 Allergy to other foods; Z90.49 Acquired absence of other specified parts of digestive tract; Z79.899 Other long term (current) drug therapy; Z82.61 Family history of arthritis; Z83.3 Family history of diabetes mellitus; Z82.49 Family history of ischemic heart disease and other diseases of the circulatory system; Z83.2 Family history of diseases of the blood and blood-forming organs and certain disorders involving the immune mechanism; Z82.5 Family history of asthma and other chronic lower respiratory diseases
CPT/HCPCS: 36415; 70450; 71046; 80053; 85025; 85045; 96361; 96374; 96375; 96376; 99285; A9270-GY; J0780; J1170; J1200; J1650; J1885; J2270; J2405; J7030

== ENCOUNTER 2018-02-09 16:52 | Emergency (ER) | payer MEDICAID ==
--- NOTE | 2018-02-09 17:17 | ER Document Report ---
ED Medical Screen (RME) - General Chief Complaint: Sickle Cell Crisis Stated Complaint: BACK/CHEST PAIN Time Seen by Provider: 02/09/18 17:09 Mode of Arrival: Ambulatory Information source: Patient Notes: This is a 22-year-old man with a history of sickle cell disease who presents to the emergency room with left chest pain. Patient denies shortness of breath. Patient is followed by Dr. Carlos. He denies any fever, chills. His medicines include hydroxyurea, folic acid, Advair for asthma and oxycodone. TRAVEL OUTSIDE OF THE [place] IN LAST 30 DAYS: No - Related Data Allergies/Adverse Reactions: Coconut * [Coconut] Allergy (Mild, Verified 01/26/18 11:14) transpore tape Allergy (Mild, Uncoded 01/26/18 11:14) Hives Past Medical History - Social History Chew tobacco use (# tins/day): No Frequency of alcohol use: None Drug Abuse: None Family history: None Pulmonary Medical History: Reports: Hx Asthma, Hx Pneumonia Renal/ Medical History: Denies: Hx Peritoneal Dialysis Psychiatric Medical History: Denies: Hx Depression Past Surgical History: Reports: Hx Abdominal Surgery - Gallstones removal, Hx Cholecystectomy, Hx Orthopedic Surgery - Fluid drained from right foot, Hx Vascular Surgery - Port placement - Immunizations Immunizations up to date: Yes Hx Diphtheria, Pertussis, Tetanus Vaccination: Yes History of Influenza Vaccine for 06/2017 - 10/2017 Season: Yes Influenza Administration Date for 06/2017 - 10/2017 Season: 06/02/17 Physical Exam - Vital signs Vitals: Temp Pulse Resp BP Pulse Ox 99.2 F 119 H 18 134/84 H 94 02/09/18 16:57 02/09/18 16:57 02/09/18 16:57 02/09/18 16:57 02/09/18 16:57 Course - Vital Signs Vital signs: Temp Pulse Resp BP Pulse Ox 99.2 F 119 H 18 134/84 H 94 02/09/18 16:57 02/09/18 16:57 02/09/18 16:57 02/09/18 16:57 02/09/18 16:57 Doctor's Discharge - Discharge Referrals: ANDREW WILLIS MD [Primary Care Provider] - Follow up as needed
[2018-02-09] MEDS ORDERED: NORMAL SALINE 1000 ML 1,000 ML IV PRN (17:18)
[2018-02-09] MEDS ORDERED: FENTANYL CITRATE INJ/PF 100 MCG/2 ML AMPUL IV ONE (18:15)
[2018-02-09] MEDS ORDERED: HYDROMORPHONE HCL INJ/PF 2 MG/ML AMPULE IV PRN (18:39)
[2018-02-09] MEDS ORDERED: FENTANYL CITRATE INJ/PF 100 MCG/2 ML AMPUL IV PRN (18:41)
--- NOTE | 2018-02-09 19:18 | RADIOLOGY REPORT (SQ) ---
EXAM DESCRIPTION: CHEST 2 VIEWS COMPLETED DATE/TIME: 02/09/2018 6:58 pm REASON FOR STUDY: cp COMPARISON: Chest x-ray 02/03/2018. EXAM PARAMETERS: NUMBER OF VIEWS: two views TECHNIQUE: Digital Frontal and Lateral radiographic views of the chest acquired. RADIATION DOSE: NA LIMITATIONS: none FINDINGS: LUNGS AND PLEURA: No consolidation, pneumothorax or pleural effusion. MEDIASTINUM AND HILAR STRUCTURES: No masses or contour abnormalities. HEART AND VASCULAR STRUCTURES: Heart normal size. No evidence for failure. BONES: Increased sclerosis at the bilateral humeral heads and H- shaped vertebral bodies, consistent with changes of sickle cell disease. HARDWARE: None in the chest. IMPRESSION: No acute radiographic finding in the chest. TECHNICAL DOCUMENTATION: JOB ID: [id number] [employer]- All Rights Reserved Reading location - IP/workstation name: [email or web address]
[2018-02-09 19:23] LABS: ABSOLUTE RETICS # 0.256 10^6/uL (0.028-0.122); HEMATOCRIT 32.9 % (37.9-51.0); HEMOGLOBIN 11.3 g/dL (13.5-17.0); MEAN CORPUSCULAR HEMOGLOBIN 34.8 pg (27.0-33.4); MEAN CORPUSCULAR HGB CONC 34.4 g/dL (32.0-36.0); MEAN CORPUSCULAR VOLUME 101 fl (80-97); PLATELET COUNT 325 10^3/uL (150-450); RED BLOOD COUNT 3.25 10^6/uL (4.35-5.55); RETICULOCYTE COUNT (AUTO) 7.87 % (0.66-2.85)
[2018-02-09 19:39] LABS: ALANINE AMINOTRANSFERASE 20 U/L (21-72); ALKALINE PHOSPHATASE 132 U/L (38-126); ANION GAP 16 (5-19); ASPARTATE AMINO TRANSFERASE 61 U/L (17-59); BILIRUBIN,DIRECT 0.5 mg/dL (0.0-0.4); BILIRUBIN,TOTAL 2.7 mg/dL (0.2-1.3); BLOOD UREA NITROGEN 19 mg/dL (7-20); CALCIUM 9.6 mg/dL (8.4-10.2); CARBON DIOXIDE 24 mmol/L (22-30); CHLORIDE 107 mmol/L (98-107); GLUCOSE 85 mg/dL (75-110); POTASSIUM 4.7 mmol/L (3.6-5.0); SODIUM 147.2 mmol/L (137-145); TOTAL PROTEIN 9.1 g/dL (6.3-8.2)
[2018-02-09 19:44] LABS: BAND NEUTROPHILS % (MANUAL) 1 % (3-5); BASOPHILS % (MANUAL) 0 % (0-2); EOSINOPHILS % (MANUAL) 3 % (0-6); LYMPHOCYTES % (MANUAL) 29 % (13-45); MONOCYTES % (MANUAL) 9 % (3-13); NUCLEATED RED BLOOD CELLS 10 /100 WBC (0); SEGMENTED NEUTROPHILS % (MAN) 58 % (42-78); TOTAL CELLS COUNTED 100
--- NOTE | 2018-02-09 19:49 | ER Document Report ---
ED General - General Chief Complaint: Sickle Cell Crisis Stated Complaint: BACK/CHEST PAIN Time Seen by Provider: 02/09/18 17:09 Mode of Arrival: Ambulatory Notes: Patient is a 22-year-old male with history of sickle cell SS who presents with left-sided chest wall pain as well as right knee pain. He describes it as a stabbing, aching pain to the affected areas. Nothing improves or worsens this pain. He notes this feels very similar to when he has had sickle cell crises in the past. He denies feeling short of breath or having fever. He states this does not feel like when he has had acute chest in the past. He continues to follow with his cloth bin packer Dr. Carlos regarding his sickle cell anemia. TRAVEL OUTSIDE OF THE [place] IN LAST 30 DAYS: No - Related Data Allergies/Adverse Reactions: Coconut * [Coconut] Allergy (Mild, Verified 01/26/18 11:14) transpore tape Allergy (Mild, Uncoded 01/26/18 11:14) Hives Past Medical History - General Information source: Patient - Social History Smoking Status: Never Smoker Chew tobacco use (# tins/day): No Frequency of alcohol use: None Drug Abuse: None Lives with: Spouse/Significant other Family History: Reviewed & Not Pertinent, Arthritis, DM, Hypertension, Other - Sickle cell trait both parents and asthma Patient has suicidal ideation: No Patient has homicidal ideation: No Pulmonary Medical History: Reports: Hx Asthma, Hx Pneumonia Renal/ Medical History: Denies: Hx Peritoneal Dialysis Psychiatric Medical History: Denies: Hx Depression Past Surgical History: Reports: Hx Abdominal Surgery - Gallstones removal, Hx Cholecystectomy, Hx Orthopedic Surgery - Fluid drained from right foot, Hx Vascular Surgery - Port placement - Immunizations Immunizations up to date: Yes Hx Diphtheria, Pertussis, Tetanus Vaccination: Yes Hx Pneumococcal Vaccination: 01/15/13 Review of Systems - Review of Systems Notes: Constitutional: Negative for fever. HENT: Negative for sore throat. Eyes: Negative for visual changes. Cardiovascular: Negative for chest pain. Respiratory: Negative for shortness of breath. Gastrointestinal: Negative for abdominal pain, vomiting or diarrhea. Genitourinary: Negative for dysuria. Musculoskeletal: Positive for chest wall and right knee pain Skin: Negative for rash. Neurological: Negative for headaches, weakness or numbness. 10 point ROS negative except as marked above and in HPI. Physical Exam - Vital signs Vitals: Temp Pulse Resp BP Pulse Ox 99.2 F 119 H 18 134/84 H 94 02/09/18 16:57 02/09/18 16:57 02/09/18 16:57 02/09/18 16:57 02/09/18 16:57 Interpretation: Tachycardic - Resolved at the time of my assessment Notes: PHYSICAL EXAMINATION: GENERAL: Well-appearing, well-nourished and in no acute distress. HEAD: Atraumatic, normocephalic. EYES: Pupils equal round and reactive to light, extraocular movements intact, sclera anicteric, conjunctiva are normal. ENT: nares patent, oropharynx clear without exudates. Moist mucous membranes. NECK: Normal range of motion, supple without lymphadenopathy LUNGS: Breath sounds clear to auscultation bilaterally and equal. No wheezes rales or rhonchi. HEART: Regular rate and rhythm without murmurs ABDOMEN: Soft, nontender, normoactive bowel sounds. No guarding, no rebound. No masses appreciated. EXTREMITIES: Normal range of motion, no pitting or edema. No cyanosis. NEUROLOGICAL: No focal neurological deficits. Moves all extremities spontaneously and on command. PSYCH: Normal mood, normal affect. SKIN: Warm, Dry, normal turgor, no rashes or lesions noted. Course - Re-evaluation Re-evalutation: 02/09/18 19:49 Presentation is most consistent with an uncomplicated sickle cell pain crisis. Patient has no evidence of an aplastic crisis on labs. Chest x-ray and vitals are not consistent with acute chest syndrome. Vitals have remained within normal limits here in the emergency department. Patient's pain has been able to be controlled using IV analgesia. The patient is agreeable to discharge home at this time. I recommended that they follow closely with their primary cloth bin packer. Return precautions have been reviewed and discussed and patient has verbalized indications to return to the emergency department. - Vital Signs Vital signs: Temp Pulse Resp BP Pulse Ox 99.2 F 119 H 18 129/91 H 96 02/09/18 16:57 02/09/18 16:57 02/09/18 21:01 02/09/18 21:01 02/09/18 21:01 - Laboratory Result Diagrams: 02/09/18 19:05 02/09/18 19:05 Laboratory results interpreted by me: 02/09/18 02/09/18 19:05 19:05 RBC 3.25 L Hgb 11.3 L Hct 32.9 L MCV 101 H MCH 34.8 H RDW 28.0 H Band Neutrophils % 1 L Abs Neuts (Manual) 0.0 L Abs Lymphs (Manual) 0.0 L Abs Monocytes (Manual) 0.0 L Retic Count (auto) 7.87 H Absolute Retic 0.256 H Sodium 147.2 H Total Bilirubin 2.7 H Direct Bilirubin 0.5 H AST 61 H ALT 20 L Alkaline Phosphatase 132 H Total Protein 9.1 H - Diagnostic Test Radiology reviewed: Image reviewed, Reports reviewed Radiology results interpreted by me: 02/09/18 19:49 Chest x-ray: No acute infiltrate or pneumothorax Discharge - Discharge Clinical Impression: Sickle cell crisis Sickle cell anemia Qualifiers: Sickle-cell associated disorders: with unspecified crisis Qualified Code(s): D57.00 - Hb-SS disease with crisis, unspecified Condition: Good Disposition: HOME, SELF-CARE Additional Instructions: You were seen today for sickle cell pain crisis. Please follow-up with your cloth bin packer. Returning to the ED if you have worsening pain, fever greater than 100.4, shortness of breath, persistent vomiting, or any other symptoms that are concerning to you. Referrals: ANDREW WILLIS MD [Primary Care Provider] - Follow up as needed
[2018-02-09 19:53] LABS: ANISOCYTOSIS 4+; HYPOCHROMASIA 1+; POIKILOCYTOSIS 2+; POLYCHROMASIA 1+; SICKLE RED CELLS 2+; TARGET CELLS 1+
[2018-02-09 19:54] LABS: PLATELET COMMENT ADEQUATE; PLATELET LARGE PRESENT; WHITE BLOOD COUNT 6.5 10^3/uL (4.0-10.5)
[2018-02-09 21:18] VITALS: BP 129/91
== END 2018-02-09 21:18 | disposition home or self-care (01) ==
LOC: ER 16:52
DX: D57.00 Hb-SS disease with crisis, unspecified (principal); R07.89 Other chest pain; M25.561 Pain in right knee; J45.909 Unspecified asthma, uncomplicated
CPT/HCPCS: 96376; 99284; 96361; 96374; 36415; 85025; 85045; 80053; 71046; J3010; J7030

== ENCOUNTER 2018-02-13 20:25 | Emergency (ER) | payer MEDICAID ==
[2018-02-13] MEDS ORDERED: DIPHENHYDRAMINE HCL 50 MG/ML VIAL IV ONE (22:11)
[2018-02-13] MEDS ORDERED: NORMAL SALINE 1000 ML 1,000 ML IV ONE (22:11)
[2018-02-13] MEDS ORDERED: HYDROMORPHONE HCL INJ/PF 2 MG/ML AMPULE IV ONE (22:11)
[2018-02-13] MEDS ORDERED: FENTANYL CITRATE INJ/PF 100 MCG/2 ML AMPUL IV ONE (22:26)
[2018-02-13 22:32] LABS: ABSOLUTE RETICS # 0.317 10^6/uL (0.028-0.122); HEMATOCRIT 33.5 % (37.9-51.0); HEMOGLOBIN 11.7 g/dL (13.5-17.0); MEAN CORPUSCULAR HGB CONC 34.9 g/dL (32.0-36.0); MEAN CORPUSCULAR VOLUME 103 fl (80-97); PLATELET COUNT 428 10^3/uL (150-450); RED BLOOD COUNT 3.25 10^6/uL (4.35-5.55); RED CELL DISTRIBUTION WIDTH 28.7 % (11.5-14.0); RETICULOCYTE COUNT (AUTO) 9.76 % (0.66-2.85); WHITE BLOOD COUNT 7.3 10^3/uL (4.0-10.5)
[2018-02-13 22:41] LABS: ALANINE AMINOTRANSFERASE 16 U/L (21-72); ALKALINE PHOSPHATASE 132 U/L (38-126); ANION GAP 15 (5-19); ASPARTATE AMINO TRANSFERASE 56 U/L (17-59); BILIRUBIN,DIRECT 0.6 mg/dL (0.0-0.4); BILIRUBIN,TOTAL 1.8 mg/dL (0.2-1.3); BLOOD UREA NITROGEN 14 mg/dL (7-20); CALCIUM 9.9 mg/dL (8.4-10.2); CARBON DIOXIDE 26 mmol/L (22-30); CHLORIDE 107 mmol/L (98-107); GLUCOSE 84 mg/dL (75-110); POTASSIUM 4.7 mmol/L (3.6-5.0); SODIUM 147.8 mmol/L (137-145); TOTAL PROTEIN 9.1 g/dL (6.3-8.2)
[2018-02-13 23:03] LABS: ABSOLUTE LYMPHOCYTES# (MANUAL) 3.6 10^3/uL (0.5-4.7); ABSOLUTE MONOCYTES # (MANUAL) 0.3 10^3/uL (0.1-1.4); ABSOLUTE NEUTROPHILS# (MANUAL) 3.4 10^3/uL (1.7-8.2); BASOPHILS % (MANUAL) 0 % (0-2); EOSINOPHILS % (MANUAL) 1 % (0-6); LYMPHOCYTES % (MANUAL) 49 % (13-45); MONOCYTES % (MANUAL) 4 % (3-13); NUCLEATED RED BLOOD CELLS 7 /100 WBC (0); SEGMENTED NEUTROPHILS % (MAN) 46 % (42-78); TOTAL CELLS COUNTED 100
[2018-02-13 23:07] LABS: ANISOCYTOSIS 4+; OVALOCYTES 1+; PLATELET COMMENT ADEQUATE; POIKILOCYTOSIS 1+; POLYCHROMASIA 1+; SCHISTOCYTES SLIGHT; TARGET CELLS SLIGHT; TEAR DROP CELLS SLIGHT
[2018-02-13 23:10] LABS: SICKLE RED CELLS 1+
[2018-02-14] MEDS ORDERED: FENTANYL CITRATE INJ/PF 100 MCG/2 ML AMPUL IV ONE (00:23)
--- NOTE | 2018-02-14 00:24 | ER Document Report ---
ED General - General Chief Complaint: Sickle Cell Crisis Stated Complaint: RIGHT KNEE PAIN Time Seen by Provider: 02/13/18 21:56 Notes: Patient is a 22-year-old male who presents with complaint of pain in his right knee. He says his pain is pretty typical for him with his sickle cell pain. No fevers. No vomiting. No chest pain. No difficulty breathing. No other complaints at this time. His primary care physician is Dr. Stanton. His research and development technician is Dr. Carlos. TRAVEL OUTSIDE OF THE [place] IN LAST 30 DAYS: No - Related Data Allergies/Adverse Reactions: Coconut * [Coconut] Allergy (Mild, Verified 01/26/18 11:14) transpore tape Allergy (Mild, Uncoded 01/26/18 11:14) Hives Past Medical History - Social History Smoking Status: Unknown if Ever Smoked Frequency of alcohol use: None Drug Abuse: None Family History: Reviewed & Not Pertinent, Arthritis, DM, Hypertension, Other - Sickle cell trait both parents and asthma Patient has suicidal ideation: No Patient has homicidal ideation: No Pulmonary Medical History: Reports: Hx Asthma, Hx Pneumonia Renal/ Medical History: Denies: Hx Peritoneal Dialysis Psychiatric Medical History: Denies: Hx Depression Past Surgical History: Reports: Hx Abdominal Surgery - Gallstones removal, Hx Cholecystectomy, Hx Orthopedic Surgery - Fluid drained from right foot, Hx Vascular Surgery - Port placement - Immunizations Immunizations up to date: Yes Hx Diphtheria, Pertussis, Tetanus Vaccination: Yes Hx Pneumococcal Vaccination: 01/15/13 Review of Systems - Review of Systems Notes: My Normal Review Basic REVIEW OF SYSTEMS: CONSTITUTIONAL : Denies fever, chills, or sweats. Denies recent illness. EENT: Denies eye, ear, throat, or mouth pain or symptoms. Denies nasal or sinus congestion. CARDIOVASCULAR: Denies chest pain. RESPIRATORY: Denies cough, cold, or chest congestion. Denies shortness of breath, difficulty breathing, or wheezing. GASTROINTESTINAL: Denies abdominal pain. Denies nausea, vomiting, or diarrhea. Denies constipation. Last BM: GENITOURINARY: Denies difficulty urinating, painful urination, burning, frequency, or blood in urine. MUSCULOSKELETAL: Right knee pain SKIN: Denies rash or skin lesions. HEMATOLOGIC : History of sickle cell disease NEUROLOGICAL: Denies altered mental status or loss of consciousness. Denies headache. Denies weakness or paralysis or loss of use of either side. Denies problems with gait or speech. Denies sensory or motor loss. ALL OTHER SYSTEMS REVIEWED AND NEGATIVE. Physical Exam - Vital signs Vitals: Temp Pulse Resp BP Pulse Ox 99.1 F 103 H 16 135/88 H 95 02/13/18 20:34 02/13/18 20:34 02/13/18 20:34 02/13/18 20:34 02/13/18 20:34 - Notes Notes: General Appearance: Well nourished, alert, cooperative, no acute distress, mild obvious discomfort. Vitals: reviewed, See vital signs table. Head: no swelling or tenderness to the head Eyes: PERRL, EOMI, Conjuctiva clear Mouth: No decreasd moisture Throat: No tonsillar inflammation, No airway obstruction, No lymphadenopathy Neck: Supple, no neck tenderness, No thyromegaly Lungs: No wheezing, No rales, No rhonci, No accessory muscle use, good air exchange bilaterally. Heart: Normal rate, Regular rythm, No murmur, no rub Abdomen: Normal BS, soft, No rigidity, No abdominal tenderness, No guarding, no rebound, no abdominal masses, no organomegaly Extremities: strength 5/5 in all extremities, good pulses in all extremities, patient has no swelling or redness or signs of infection to the right knee. Is able to fully flex and extend the knee without difficulty., no edema. Skin: warm, dry, appropriate color, no rash Neuro: speech clear, oriented x 3, normal affect, responds appropriately to questions. Course - Re-evaluation Re-evalutation: 02/14/18 00:28 After 1 dose of fentanyl the patient says his pain is gone and he continues to feel well and actually requests to be discharged home. His anemia is consistent with his typical findings. I feel that he is safe to be discharged home. I strongly encouraged him to return to the ER immediately if he has worsening pain, fevers, pain, difficulty breathing, or feels unwell. His only request is that he receives more dose pain medicine for he had some that he has bridge until he can go home and take his pain medicine as needed. I will give him 1 more dose of fentanyl. Patient again requests to go home and has no further concerns at this time. He has no signs of acute chest syndrome. He has no social abdominal pain. He has no difficulty breathing. He looks well. Dictation of this chart was performed using voice recognition software; therefore, there may be some unintended grammatical errors. - Vital Signs Vital signs: Temp Pulse Resp BP Pulse Ox 99.1 F 103 H 16 135/88 H 95 02/13/18 20:34 02/13/18 20:34 02/13/18 20:34 02/13/18 20:34 02/13/18 20:34 - Laboratory Result Diagrams: 02/13/18 22:21 02/13/18 22:21 Laboratory results interpreted by me: 02/13/18 02/13/18 22:21 22:21 RBC 3.25 L Hgb 11.7 L Hct 33.5 L MCV 103 H MCH 36.0 H RDW 28.7 H Lymphocytes % (Manual) 49 H Retic Count (auto) 9.76 H Absolute Retic 0.317 H Sodium 147.8 H Total Bilirubin 1.8 H Direct Bilirubin 0.6 H ALT 16 L Alkaline Phosphatase 132 H Total Protein 9.1 H Discharge - Discharge Clinical Impression: Sickle cell crisis, Sickle cell anemia Condition: Good Disposition: HOME, SELF-CARE Additional Instructions: Please return to the ER immediately if you develop intractable pain, difficulty breathing fevers, vomiting, or feel unwell. Please follow up with Dr. Carlos Saturday or Saturday.
[2018-02-14 00:57] VITALS: BP 139/89
== END 2018-02-14 00:58 | disposition home or self-care (01) ==
LOC: ER 20:25
DX: D57.00 Hb-SS disease with crisis, unspecified (principal); M25.561 Pain in right knee; Z90.49 Acquired absence of other specified parts of digestive tract
CPT/HCPCS: 96376; 99284; 96361; 96374; 96375; 36415; 85025; 85045; 80053; J1200; J3010 ×2; J7030

== ENCOUNTER 2018-02-15 23:21 | Emergency (ER) | payer MEDICAID ==
--- NOTE | 2018-02-16 00:10 | EKG REPORT ---
SEVERITY:- BORDERLINE ECG - SINUS RHYTHM PROBABLE LEFT ATRIAL ABNORMALITY : Confirmed by: Howard Min MD 16-Feb-2018 00:10:15
[2018-02-16 01:32] LABS: HEMATOCRIT 35.2 % (37.9-51.0); HEMOGLOBIN 12.2 g/dL (13.5-17.0); MEAN CORPUSCULAR HEMOGLOBIN 35.5 pg (27.0-33.4); MEAN CORPUSCULAR HGB CONC 34.7 g/dL (32.0-36.0); MEAN CORPUSCULAR VOLUME 103 fl (80-97); PLATELET COUNT 377 10^3/uL (150-450); RED BLOOD COUNT 3.44 10^6/uL (4.35-5.55); RED CELL DISTRIBUTION WIDTH 27.3 % (11.5-14.0)
--- NOTE | 2018-02-16 01:36 | RADIOLOGY REPORT (SQ) ---
EXAM DESCRIPTION: XR CHEST 2 VIEWS COMPLETED DATE/TME: 02/16/2018 00:00 CLINICAL HISTORY: chest pain COMPARISON: 02/09/2018 FINDINGS: Frontal and lateral views of the chest. The cardiomediastinal silhouette has normal size and contour. No consolidation, pneumothorax, or pleural effusion. No displaced rib fractures identified. Prior cholecystectomy. IMPRESSION: 1. No acute pulmonary process identified.
[2018-02-16] MEDS ORDERED: DIPHENHYDRAMINE HCL 25 MG CAPSULE PO ONE (01:46)
[2018-02-16] MEDS ORDERED: NORMAL SALINE 1000 ML 1,000 ML IV ONE (01:47)
--- NOTE | 2018-02-16 01:48 | ER Document Report ---
ED General - General Chief Complaint: Sickle Cell Crisis Stated Complaint: POSSIBLE SICKLE CELL OUTBREAK Time Seen by Provider: 02/16/18 01:44 Notes: The patient is a 22-year-old male with history of sickle cell anemia SS who presents with a pain crisis. He describes diffuse muscular skeletal pain involving his bilateral upper and lower extremities as well as his chest and back. States the pain started shortly prior to arrival and has been progressively worsening since that time. He has not tried anything for pain relief prior to arrival. He denies associated fever, cough, shortness of breath or syncope. States this feels very similar to his prior sickle cell exacerbations that he has had in the past. He has not seen his general doctor regarding today's concerns. TRAVEL OUTSIDE OF THE [place] IN LAST 30 DAYS: No - Related Data Allergies/Adverse Reactions: Coconut * [Coconut] Allergy (Mild, Verified 01/26/18 11:14) transpore tape Allergy (Mild, Uncoded 01/26/18 11:14) Hives Past Medical History - General Information source: Patient - Social History Smoking Status: Never Smoker Frequency of alcohol use: None Drug Abuse: None Lives with: Spouse/Significant other Family History: Reviewed & Not Pertinent, Arthritis, DM, Hypertension, Other - Sickle cell trait both parents and asthma Pulmonary Medical History: Reports: Hx Asthma, Hx Pneumonia Renal/ Medical History: Denies: Hx Peritoneal Dialysis Psychiatric Medical History: Denies: Hx Depression Past Surgical History: Reports: Hx Abdominal Surgery - Gallstones removal, Hx Cholecystectomy, Hx Orthopedic Surgery - Fluid drained from right foot, Hx Vascular Surgery - Port placement - Immunizations Immunizations up to date: Yes Hx Diphtheria, Pertussis, Tetanus Vaccination: Yes Hx Pneumococcal Vaccination: 01/15/13 Review of Systems - Review of Systems Notes: Constitutional: Negative for fever. HENT: Negative for sore throat. Eyes: Negative for visual changes. Cardiovascular: Positive for chest pain. Respiratory: Negative for shortness of breath. Gastrointestinal: Negative for abdominal pain, vomiting or diarrhea. Genitourinary: Negative for dysuria. Musculoskeletal: Positive for diffuse muscular skeletal pain. Skin: Negative for rash. Neurological: Negative for headaches, weakness or numbness. 10 point ROS negative except as marked above and in HPI. Physical Exam - Vital signs Interpretation: Tachycardic Notes: PHYSICAL EXAMINATION: GENERAL: Appears to be in pain, uncomfortable HEAD: Atraumatic, normocephalic. EYES: Pupils equal round and reactive to light, extraocular movements intact, sclera anicteric, conjunctiva are normal. ENT: nares patent, oropharynx clear without exudates. Moist mucous membranes. NECK: Normal range of motion, supple without lymphadenopathy LUNGS: Breath sounds clear to auscultation bilaterally and equal. No wheezes rales or rhonchi. HEART: Regular tachycardia without murmurs ABDOMEN: Soft, nontender, normoactive bowel sounds. No guarding, no rebound. No masses appreciated. EXTREMITIES: Normal range of motion, no pitting or edema. No cyanosis. NEUROLOGICAL: No focal neurological deficits. Moves all extremities spontaneously and on command. PSYCH: Normal mood, normal affect. SKIN: Warm, Dry, normal turgor, no rashes or lesions noted. Course - Re-evaluation Re-evalutation: 02/16/18 01:48 Presentation is most consistent with an uncomplicated sickle cell pain crisis. Patient has no evidence of an aplastic crisis on labs. Chest x-ray and vitals are not consistent with acute chest syndrome. Vitals have remained within normal limits here in the emergency department. Patient's pain has been able to be controlled using IV analgesia. The patient is agreeable to discharge home at this time. I recommended that they follow closely with their primary brush finisher. Return precautions have been reviewed and discussed and patient has verbalized indications to return to the emergency department. - Laboratory Result Diagrams: 02/16/18 01:08 02/16/18 01:08 Laboratory results interpreted by me: 02/16/18 02/16/18 02/16/18 01:08 01:08 01:08 RBC 3.44 L Hgb 12.2 L Hct 35.2 L MCV 103 H MCH 35.5 H RDW 27.3 H Abs Neuts (Manual) 0.0 L Abs Lymphs (Manual) 0.0 L Abs Monocytes (Manual) 0.0 L Retic Count (auto) 8.94 H Absolute Retic 0.306 H Sodium 145.7 H Chloride 108 H Total Bilirubin 2.3 H Direct Bilirubin 0.5 H Total Protein 8.9 H - Diagnostic Test Radiology reviewed: Image reviewed, Reports reviewed Radiology results interpreted by me: 02/16/18 02:26 Chest x-ray: No acute infiltrate or pneumothorax Discharge - Discharge Clinical Impression: Sickle cell crisis, 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 Please follow-up with your brush finisher. Returning to the ED if you have worsening pain, fever greater than 100.4, shortness of breath, persistent vomiting, or any other symptoms that are concerning to you. Referrals: ANDREW WILLIS MD [Primary Care Provider] - Follow up as needed
[2018-02-16 01:50] LABS: BASOPHILS % (MANUAL) 0 % (0-2); EOSINOPHILS % (MANUAL) 1 % (0-6); LYMPHOCYTES % (MANUAL) 32 % (13-45); MONOCYTES % (MANUAL) 8 % (3-13); NUCLEATED RED BLOOD CELLS 11 /100 WBC (0); SEGMENTED NEUTROPHILS % (MAN) 58 % (42-78); TOTAL CELLS COUNTED 100
[2018-02-16 01:55] LABS: ALANINE AMINOTRANSFERASE 21 U/L (21-72); ALBUMIN 4.9 g/dL (3.5-5.0); ALKALINE PHOSPHATASE 123 U/L (38-126); ANION GAP 16 (5-19); ASPARTATE AMINO TRANSFERASE 48 U/L (17-59); BILIRUBIN,DIRECT 0.5 mg/dL (0.0-0.4); BILIRUBIN,TOTAL 2.3 mg/dL (0.2-1.3); BLOOD UREA NITROGEN 15 mg/dL (7-20); CARBON DIOXIDE 22 mmol/L (22-30); CHLORIDE 108 mmol/L (98-107); CREATINE KINASE 55 U/L (55-170); GLUCOSE 105 mg/dL (75-110); POTASSIUM 4.5 mmol/L (3.6-5.0); SODIUM 145.7 mmol/L (137-145); TOTAL PROTEIN 8.9 g/dL (6.3-8.2)
[2018-02-16 01:57] LABS: ANISOCYTOSIS 4+; POIKILOCYTOSIS 2+; POLYCHROMASIA 1+; SICKLE RED CELLS 3+
[2018-02-16 01:58] LABS: HOWELL-JOLLY BODIES PRESENT; PLATELET COMMENT ADEQUATE; PLATELET LARGE PRESENT
[2018-02-16 01:59] LABS: WHITE BLOOD COUNT 8.1 10^3/uL (4.0-10.5)
[2018-02-16 02:06] LABS: ABSOLUTE RETICS # 0.306 10^6/uL (0.028-0.122); RETICULOCYTE COUNT (AUTO) 8.94 % (0.66-2.85)
[2018-02-16 02:10] LABS: CREATINE KINASE MB < 0.22 ng/mL (<4.55); TROPONIN I < 0.012 ng/mL
[2018-02-16] MEDS: HYDROMORPHONE HCL INJ/PF 2 MG/ML AMPULE IV PRN ×3 (02:32→05:02)
[2018-02-16] MEDS ORDERED: METOCLOPRAMIDE HCL INJ/PF 10 MG/2 ML SDV IV ONE (03:16)
[2018-02-16 06:04] VITALS: BP 125/78
== END 2018-02-16 05:39 | disposition home or self-care (01) ==
LOC: ER 23:21
DX: D57.00 Hb-SS disease with crisis, unspecified (principal); R00.0 Tachycardia, unspecified; J45.909 Unspecified asthma, uncomplicated
CPT/HCPCS: 93005; 96376; 99284; 96361; 96374; 96375; 36415; 82553; 82550; 85025; 85045; 80053; 84484; 71046; 93010; J3490; J2765; J1170; J7030

== ENCOUNTER 2018-02-21 00:15 | Emergency (ER) | payer MEDICAID ==
[2018-02-21] MEDS ORDERED: NORMAL SALINE 1000 ML 1,000 ML IV ONE ×2 (00:20→01:30)
[2018-02-21 01:04] LABS: MEAN CORPUSCULAR VOLUME 100 fl (80-97)
[2018-02-21 01:10] LABS: ALANINE AMINOTRANSFERASE 21 U/L (21-72); ALBUMIN 4.8 g/dL (3.5-5.0); ALKALINE PHOSPHATASE 122 U/L (38-126); ANION GAP 10 (5-19); ASPARTATE AMINO TRANSFERASE 76 U/L (17-59); BILIRUBIN,DIRECT 0.7 mg/dL (0.0-0.4); BILIRUBIN,TOTAL 2.8 mg/dL (0.2-1.3); BLOOD UREA NITROGEN 14 mg/dL (7-20); CALCIUM 9.4 mg/dL (8.4-10.2); CARBON DIOXIDE 26 mmol/L (22-30); CHLORIDE 108 mmol/L (98-107); GLUCOSE 96 mg/dL (75-110); SODIUM 144.1 mmol/L (137-145); TOTAL PROTEIN 9.1 g/dL (6.3-8.2)
[2018-02-21 01:17] LABS: ABSOLUTE BASOPHILS # (AUTO) 0.1 10^3/uL (0.0-0.2); ABSOLUTE EOSINOPHILS # (AUTO) 0.2 10^3/uL (0.0-0.6); ABSOLUTE LYMPHOCYTES (AUTO) 3.6 10^3/uL (0.5-4.7); ABSOLUTE NEUT (AUTO) 4.6 10^3/uL (1.7-8.2); ABSOLUTE RETICS # 0.262 10^6/uL (0.028-0.122); BASOPHILS % (AUTO) 0.7 % (0-2); EOSINOPHILS % (AUTO) 2.5 % (0-6); HEMATOCRIT 29.5 % (37.9-51.0); HEMOGLOBIN 10.4 g/dL (13.5-17.0); LYMPHOCYTES % (AUTO) 38.1 % (13-45); MEAN CORPUSCULAR HEMOGLOBIN 35.2 pg (27.0-33.4); MEAN CORPUSCULAR HGB CONC 35.3 g/dL (32.0-36.0); MONOCYTES % (AUTO) 10.8 % (3-13); PLATELET COUNT 296 10^3/uL (150-450); RED BLOOD COUNT 2.96 10^6/uL (4.35-5.55); RED CELL DISTRIBUTION WIDTH 27.5 % (11.5-14.0); RETICULOCYTE COUNT (AUTO) 8.84 % (0.66-2.85); SEGMENTED NEUTROPHILS % (AUTO) 47.9 % (42-78); TOTAL CELLS COUNTED % (AUTO) 100 %; WHITE BLOOD COUNT 9.5 10^3/uL (4.0-10.5)
[2018-02-21 01:20] LABS: ABSOLUTE LYMPHOCYTES# (MANUAL) 3.4 10^3/uL (0.5-4.7); ABSOLUTE MONOCYTES # (MANUAL) 1.2 10^3/uL (0.1-1.4); ABSOLUTE NEUTROPHILS# (MANUAL) 4.8 10^3/uL (1.7-8.2); BASOPHILS % (MANUAL) 0 % (0-2); EOSINOPHILS % (MANUAL) 0 % (0-6); LYMPHOCYTES % (MANUAL) 34 % (13-45); MONOCYTES % (MANUAL) 13 % (3-13); NUCLEATED RED BLOOD CELLS 3 /100 WBC (0); SEGMENTED NEUTROPHILS % (MAN) 51 % (42-78); TOTAL CELLS COUNTED 100
[2018-02-21 01:23] LABS: ANISOCYTOSIS 3+; PLATELET COMMENT ADEQUATE; POIKILOCYTOSIS 1+; SICKLE RED CELLS 1+; TOXIC GRANULATION SLIGHT
[2018-02-21] MEDS ORDERED: ONDANSETRON HCL INJ/PF 4 MG/2 ML SDV IV ONE (01:29)
[2018-02-21] MEDS ORDERED: HYDROMORPHONE HCL INJ/PF 2 MG/ML AMPULE IV ONE ×3 (01:29→03:47)
[2018-02-21] MEDS ORDERED: DIPHENHYDRAMINE HCL 50 MG/ML VIAL IV ONE ×2 (01:29→03:47)
--- NOTE | 2018-02-21 01:31 | ER Document Report ---
ED General - General Chief Complaint: Sickle Cell Crisis Stated Complaint: SICKLE CELL CRISIS Time Seen by Provider: 02/21/18 01:25 Notes: Patient is a 22-year-old male with a history of sickle cell that comes to the emergency department for chief complaint of pain to his right knee. He states he has had worsening pain over the past 2 days, he did not injure it, he states he thinks it is related to sickle cell, he has had similar symptoms with a sickle cell flare in the past. He denies any fever or chills, nausea or vomiting, shortness of breath. He denies any other areas of pain. He still follows with hematology. He takes OxyContin and he has a fentanyl patch. TRAVEL OUTSIDE OF THE [place] IN LAST 30 DAYS: No - Related Data Allergies/Adverse Reactions: Coconut * [Coconut] Allergy (Mild, Verified 01/26/18 11:14) transpore tape Allergy (Mild, Uncoded 01/26/18 11:14) Hives Past Medical History - General Information source: Patient - Social History Smoking Status: Never Smoker Frequency of alcohol use: None Drug Abuse: None Lives with: Family Family History: Reviewed & Not Pertinent, Arthritis, DM, Hypertension, Other - Sickle cell trait both parents and asthma Pulmonary Medical History: Reports: Hx Asthma, Hx Pneumonia Renal/ Medical History: Denies: Hx Peritoneal Dialysis Psychiatric Medical History: Denies: Hx Depression Past Surgical History: Reports: Hx Abdominal Surgery - Gallstones removal, Hx Cholecystectomy, Hx Orthopedic Surgery - Fluid drained from right foot, Hx Vascular Surgery - Port placement - Immunizations Immunizations up to date: Yes Hx Diphtheria, Pertussis, Tetanus Vaccination: Yes Hx Pneumococcal Vaccination: 01/15/13 Review of Systems - Review of Systems Constitutional: No symptoms reported EENT: No symptoms reported Cardiovascular: No symptoms reported Respiratory: No symptoms reported Gastrointestinal: No symptoms reported Genitourinary: No symptoms reported Male Genitourinary: No symptoms reported Musculoskeletal: See HPI Skin: No symptoms reported Hematologic/Lymphatic: See HPI Neurological/Psychological: No symptoms reported Physical Exam - Vital signs Vitals: Temp Pulse Resp BP Pulse Ox 98.6 F 112 H 18 136/90 H 95 02/21/18 00:22 02/21/18 00:22 02/21/18 00:22 02/21/18 00:02/21/18 00:22 - Notes Notes: GENERAL: Alert, interacts well. No acute distress. HEAD: Normocephalic, atraumatic. EYES: Pupils equal, round, and reactive to light. Extraocular movements intact. ENT: Oral mucosa moist, tongue midline. NECK: Full range of motion. Supple. Trachea midline. LUNGS: Clear to auscultation bilaterally, no wheezes, rales, or rhonchi. No respiratory distress. HEART: Tachycardic, normal rhythm, no murmur ABDOMEN: Soft, non-tender. Non-distended. Bowel sounds present in all 4 quadrants. EXTREMITIES: Moves all 4 extremities spontaneously. No edema, normal radial and dorsalis pedis pulses bilaterally. No cyanosis. BACK: no cervical, thoracic, lumbar midline tenderness. No saddle anesthesia, normal distal neurovascular exam. NEUROLOGICAL: Alert and oriented x3. Normal speech. [cranial nerves II through XII grossly intact]. PSYCH: Normal affect, normal mood. SKIN: Warm, dry, normal turgor. No rashes or lesions noted. Course - Re-evaluation Re-evalutation: Patient is mildly tachycardic but he is well-appearing, calm, afebrile, normal blood pressure. Physical examination of the leg does not show any swelling. After multiple rounds medications patient states he feels good, he is symptom- free, and he wants to leave. I discussed with patient that he is tachycardic, he states he is frequently, he denies chest pain, shortness of breath, or any other symptoms. As result I have low suspicion of blood clot, infection, or serious emergent etiology. He denies dizziness/lightheadedness. Patient still requesting to leave. Patient states he will return if he worsens. Discharged with return precautions. - Vital Signs Vital signs: Temp Pulse Resp BP Pulse Ox 98.2 F 115 H 19 142/79 H 95 02/21/18 04:18 02/21/18 04:18 02/21/18 04:18 02/21/18 04:18 02/21/18 04:18 - Laboratory Result Diagrams: 02/21/18 00:35 02/21/18 00:35 Laboratory results interpreted by me: 02/21/18 02/21/18 00:35 00:35 RBC 2.96 L Hgb 10.4 L Hct 29.5 L MCV 100 H MCH 35.2 H RDW 27.5 H Retic Count (auto) 8.84 H Absolute Retic 0.262 H Chloride 108 H Total Bilirubin 2.8 H Direct Bilirubin 0.7 H AST 76 H Total Protein 9.1 H Discharge - Discharge Clinical Impression: Sickle cell crisis Condition: Stable Disposition: HOME, SELF-CARE Additional Instructions: Follow-up with your provider for additional evaluation and management. Return if you worsen in anyway including fever, difficulty breathing, severe pain, or any other concerning or worsening symptoms. Referrals: ANDREW WILLIS MD [Primary Care Provider] - Follow up tomorrow
[2018-02-21] MEDS ORDERED: ONDANSETRON 4 MG TAB.RAPDIS ONE (01:58)
[2018-02-21] MEDS ORDERED: ONDANSETRON 4 MG TAB.RAPDIS PO ONE ×2 (02:15→03:47)
[2018-02-21 05:02] VITALS: BP 132/78
== END 2018-02-21 05:03 | disposition home or self-care (01) ==
LOC: ER 00:15
DX: D57.00 Hb-SS disease with crisis, unspecified (principal); M25.561 Pain in right knee; R00.0 Tachycardia, unspecified; Z79.891 Long term (current) use of opiate analgesic; J45.909 Unspecified asthma, uncomplicated
CPT/HCPCS: 96376; 99284; 96361; 96374; 96375; 36415; 85025; 85045; 80053; J1200; S0119; J1170; J2405; J7030

== ENCOUNTER 2018-02-21 08:52 | Emergency (ER) | payer MEDICAID ==
[2018-02-21] MEDS ORDERED: NORMAL SALINE 1000 ML 1,000 ML IV ONE (09:38)
[2018-02-21] MEDS ORDERED: HYDROMORPHONE HCL INJ/PF 2 MG/ML AMPULE IV ONE ×3 (09:38→11:57)
--- NOTE | 2018-02-21 09:46 | ER Document Report ---
ED General Pain <KARINA VELAZCO Juanis - Last Filed: 02/21/18 11:54> - General Mode of Arrival: Wheelchair Information source: Patient TRAVEL OUTSIDE OF THE [place] IN LAST 30 DAYS: No <MEDINA MOSQUEDA - Last Filed: 02/21/18 13:56> - General Chief Complaint: Shortness Of Breath Stated Complaint: DIFFICULTY BREATHING Time Seen by Provider: 02/21/18 09:06 Notes: Patient is a 22-year-old male with sickle cell disease who presents to the emergency department today with complaints of chest pain, pain with breathing, and shortness of breath. Patient states he thinks he is wheezing as well. Patient describes his pain as a dull pain. Patient has had acute chest in the past and he states his pain today feels somewhat similar to his acute chest in the past. Patient was just seen overnight in the ED but wished to be discharged home as his pain went away. Patient states the chest pain was not present during his previous encounter in the emergency department. Patient denies any fevers. (MEDINA MOSQUEDA) - Related Data Allergies/Adverse Reactions: Coconut * [Coconut] Allergy (Mild, Verified 01/26/18 11:14) transpore tape Allergy (Mild, Uncoded 01/26/18 11:14) Hives Past Medical History <KARINA VELAZCO Juanis - Last Filed: 02/21/18 11:54> - General Information source: Patient - Social History Smoking Status: Never Smoker Cigarette use (# per day): No Frequency of alcohol use: None Drug Abuse: None Lives with: Family Family History: Reviewed & Not Pertinent, Arthritis, DM, Hypertension, Other - Sickle cell trait both parents and asthma Pulmonary Medical History: Reports: Hx Asthma, Hx Pneumonia Past Surgical History: Reports: Hx Abdominal Surgery - Gallstones removal, Hx Cholecystectomy, Hx Orthopedic Surgery - Fluid drained from right foot, Hx Vascular Surgery - Port placement - Immunizations Immunizations up to date: Yes Hx Diphtheria, Pertussis, Tetanus Vaccination: Yes Hx Pneumococcal Vaccination: 01/15/13 <MEDINA MOSQUEDA - Last Filed: 02/21/18 13:56> - Medical History Notes: Sickle cell disease (MEDINA MOSQUEDA) Review of Systems - Review of Systems Constitutional: denies: Fever EENT: No symptoms reported Cardiovascular: See HPI, Chest pain Respiratory: See HPI, Hurts to breathe, Short of breath, Wheezing Gastrointestinal: No symptoms reported Genitourinary: No symptoms reported Male Genitourinary: No symptoms reported Musculoskeletal: No symptoms reported Skin: No symptoms reported Hematologic/Lymphatic: No symptoms reported Neurological/Psychological: No symptoms reported -: Yes All other systems reviewed and negative <MEDINA MOSQUEDA - Last Filed: 02/21/18 13:56> Physical Exam <KARINA VELAZCO - Last Filed: 02/21/18 11:54> - Vital signs Interpretation: Tachycardic, Hypoxic <MEDINA MOSQUEDA - Last Filed: 02/21/18 13:56> - Vital signs Vitals: Pulse Ox 85 L 02/21/18 08:57 - Notes Notes: Physical Exam: General: Alert, appears to be in moderate pain. HEENT: Normocephalic. Atraumatic. PERRL. Extraocular movements intact. Oropharynx clear. Neck: Supple. Non-tender. Respiratory: Drops down into the upper 80s without oxygen however clear and equal breath sounds bilaterally. Cardiovascular: Tachycardic, regular rhythm. Abdominal: Normal Inspection. Non-tender. No distension. Normal Bowel Sounds. Back: Non-tender. No deformity or step off. Extremities: Moves all four extremities. Upper extremities: Normal inspection. Normal ROM. Lower extremities: Normal inspection. No edema. Normal ROM. Neurological: Normal cognition. AAOx4. Normal speech. Psychological: Normal affect. Normal Mood. Skin: Warm. Dry. Normal color. (MEDINA MOSQUEDA) Course - Laboratory Result Diagrams: 02/21/18 09:17 02/21/18 09:17 - EKG Interpretation by Tn EKG shows normal: Sinus rhythm Rate: Normal Rhythm: NSR - normal axis, normal intervals <KARINA VELAZCO - Last Filed: 02/21/18 11:54> - Laboratory Result Diagrams: 02/21/18 09:17 02/21/18 09:17 <MEDINA MOSQUEDA - Last Filed: 02/21/18 13:56> - Re-evaluation Re-evalutation: 02/21/18 11:53 Patient's x-ray concerning for acute chest syndrome. CT ordered and is pending at this time. Discussed case with [facility] patient will be admitted to medical ICU.. Dr. Walker accepting. Patient provided fluid drip IV antibiotics blood cultures drawn. (KARINA VELAZCO) - Vital Signs Vital signs: Temp Pulse Resp BP Pulse Ox 98.1 F 16 142/96 H 97 02/21/18 12:36 02/21/18 12:36 02/21/18 12:36 02/21/18 12:36 - Laboratory Laboratory results interpreted by me: 02/21/18 02/21/18 02/21/18 09:17 09:17 10:14 WBC 12.0 H RBC 2.63 L Hgb 9.3 L Hct 26.3 L MCV 100 H MCH 35.3 H RDW 27.4 H Band Neutrophils % 1 L Metamyelocytes % 1 H Absolute Eos (Manual) 0.7 H Retic Count (auto) 8.54 H Absolute Retic 0.225 H ABG pO2 68.2 L ABG O2 Saturation 92.9 L Chloride 109 H Total Bilirubin 3.0 H Direct Bilirubin 0.5 H Discharge - Discharge Admitting Provider: Denise <KARINA VELAZCO - Last Filed: 02/21/18 11:54> <MEDINA MOSQUEDA - Last Filed: 02/21/18 13:56> - Discharge Clinical Impression: Acute chest syndrome Condition: Fair Disposition: [place] Referrals: ANDREW WILLIS MD [Primary Care Provider] - Follow up as needed Scribe Documentation - Scribe Written by Scribe:: Bozena Meneses, 02/21/2018 1355 acting as scribe for :: Butch <MEDINA MOSQUEDA - Last Filed: 02/21/18 13:56>
[2018-02-21] MEDS ORDERED: 1/2 NORMAL SALINE 1,000 ML IV ONE (09:55)
--- NOTE | 2018-02-21 10:09 | RADIOLOGY REPORT (SQ) ---
EXAM DESCRIPTION: CHEST 2 VIEWS COMPLETED DATE/TIME: 02/21/2018 9:57 am REASON FOR STUDY: sob COMPARISON: 02/16/2018 EXAM PARAMETERS: NUMBER OF VIEWS: two views TECHNIQUE: Digital Frontal and Lateral radiographic views of the chest acquired. RADIATION DOSE: NA LIMITATIONS: Poor inspiration FINDINGS: LUNGS AND PLEURA: Mild diffuse increased density in the lungs probably both interstitial a nd alveolar. Differential includes pulmonary edema and pneumonia. No effusions. MEDIASTINUM AND HILAR STRUCTURES: No masses or contour abnormalities. HEART AND VASCULAR STRUCTURES: Cardiac silhouette is mildly enlarged and there is mild vascular conge stion. BONES: Bony changes of sickle cell. HARDWARE: None in the chest. OTHER: No other significant finding. IMPRESSION: Mild diffuse increased density in the lungs with differential including pulmonary edema and pneumonia. TECHNICAL DOCUMENTATION: JOB ID: [id number] [employer]- All Rights Reserved Reading location - IP/workstation name: [email or web address]
[2018-02-21 10:18] LABS: ABSOLUTE RETICS # 0.225 10^6/uL (0.028-0.122); HEMATOCRIT 26.3 % (37.9-51.0); HEMOGLOBIN 9.3 g/dL (13.5-17.0); MEAN CORPUSCULAR HEMOGLOBIN 35.3 pg (27.0-33.4); MEAN CORPUSCULAR HGB CONC 35.4 g/dL (32.0-36.0); MEAN CORPUSCULAR VOLUME 100 fl (80-97); PLATELET COUNT 200 10^3/uL (150-450); RED BLOOD COUNT 2.63 10^6/uL (4.35-5.55); RED CELL DISTRIBUTION WIDTH 27.4 % (11.5-14.0); RETICULOCYTE COUNT (AUTO) 8.54 % (0.66-2.85)
[2018-02-21 10:45] LABS: ABSOLUTE LYMPHOCYTES# (MANUAL) 4.7 10^3/uL (0.5-4.7); ABSOLUTE NEUTROPHILS# (MANUAL) 5.6 10^3/uL (1.7-8.2); ANISOCYTOSIS 3+; BAND NEUTROPHILS % (MANUAL) 1 % (3-5); BASOPHILS % (MANUAL) 0 % (0-2); EOSINOPHILS % (MANUAL) 6 % (0-6); LYMPHOCYTES % (MANUAL) 38 % (13-45); METAMYELOCYTES % (MANUAL) 1 % (0); MONOCYTES % (MANUAL) 8 % (3-13); NUCLEATED RED BLOOD CELLS 15 /100 WBC (0); POIKILOCYTOSIS 3+; SEGMENTED NEUTROPHILS % (MAN) 45 % (42-78); SICKLE RED CELLS 1+; TOTAL CELLS COUNTED 100
[2018-02-21 10:46] LABS: HOWELL-JOLLY BODIES PRESENT; HYPOCHROMASIA 1+; OVALOCYTES 1+; PLATELET COMMENT ADEQUATE; PLATELET GIANT PRESENT; PLATELET LARGE PRESENT; POLYCHROMASIA 2+; SCHISTOCYTES SLIGHT
[2018-02-21 10:52] LABS: ALANINE AMINOTRANSFERASE 29 U/L (21-72); ALBUMIN 4.2 g/dL (3.5-5.0); ALKALINE PHOSPHATASE 101 U/L (38-126); ANION GAP 9 (5-19); ASPARTATE AMINO TRANSFERASE 55 U/L (17-59); BILIRUBIN,DIRECT 0.5 mg/dL (0.0-0.4); BLOOD UREA NITROGEN 10 mg/dL (7-20); CARBON DIOXIDE 27 mmol/L (22-30); CHLORIDE 109 mmol/L (98-107); GLUCOSE 98 mg/dL (75-110); POTASSIUM 4.2 mmol/L (3.6-5.0); SODIUM 144.6 mmol/L (137-145); TOTAL PROTEIN 7.6 g/dL (6.3-8.2)
[2018-02-21 11:06] LABS: ARTERIAL BLOOD BASE EXCESS -1.7 mmol/L; ARTERIAL BLOOD FIO2 92%; ARTERIAL BLOOD HCO3 23.7 mmol/L (20-26); ARTERIAL BLOOD O2 SATURATION 92.9 % (94-98); ARTERIAL BLOOD PCO2 43.2 mmHg (35-45); ARTERIAL BLOOD PH 7.36 (7.35-7.45); ARTERIAL BLOOD PO2 68.2 mmHg (80-100); ARTERIAL BLOOD TOTAL CO2 25.1 mmol/L (23-27)
[2018-02-21] MEDS ORDERED: CEFTRIAXONE 1 GM/D5W RTU 1 GM/50 ML RTUPB IV ONE (11:13)
[2018-02-21] MEDS ORDERED: AZITHROMYCIN INJ 500 MG VIAL IV ONE (11:13)
[2018-02-21] MEDS ORDERED: DIPHENHYDRAMINE HCL 50 MG/ML VIAL IV ONE (11:56)
--- NOTE | 2018-02-21 12:21 | RADIOLOGY REPORT (SQ) ---
EXAM DESCRIPTION: CTA CHEST COMPLETED DATE/TIME: 02/21/2018 11:44 am REASON FOR STUDY: hypoxia, concern for acute chest syndrome COMPARISON: Chest x-ray 02/21/2018 TECHNIQUE: CT scan of the chest performed using helical scanning technique with dynamic intravenous contrast injection. Images reviewed with lung, soft tissue and bone windows. Reconstructed coronal and sagittal MPR images reviewed. Additional 3 dimensional post-processing performed to develop Maximal Intensity Projection images (NH P). All images stored on PACS. All CT scanners at this facility use dose modulation, iterative reconstruction, and/or weight based d osing when appropriate to reduce radiation dose to as low as reasonably achievable (ALARA). [facility]: Dose Right [facility]: CareDose [facility]: Dose Right [facility]: Teradose 4D [facility]: MediBeacon CONTRAST TYPE AND DOSE: contrast/concentration: Isovue 300.00 mg/ml; Total Contrast Delivered: 63.0 ml; Total Saline Delivered: 80.0 ml Contrast bolus optimized for the pulmonary arteries. Not diagnostic for the aorta. RENAL FUNCTION: BUN 10 creatinine 0.68 RADIATION DOSE: CT Rad equipment meets quality standard of care and radiation dose reduction techniq ues were employed. CTDIvol: 14.3 - 23.2 mGy. DLP: 526 mGy-cm. . LIMITATIONS: None. FINDINGS: LUNGS AND PLEURA: There is patchy opacification in the medial aspect of each lower lobe. AORTA AND GREAT VESSELS: No aneurysm. Contrast bolus not optimized for the aorta. HEART: No pericardial effusion. No significant coronary artery calcifications. PULMONARY ARTERIES: No emboli visualized in the main pulmonary arteries or the segmental branches. HILAR AND MEDIASTINAL STRUCTURES: No identified masses or abnormal nodes. HARDWARE: None in the chest. UPPER ABDOMEN: Spleen is not identified. Stomach is distended. THYROID AND OTHER SOFT TISSUES: No masses. No adenopathy. BONES: Heterogeneous sclerotic changes are present in the bones consistent with the history of sickle cell disease. 3D MIPS: Confirm above findings. OTHER: No other significant finding. IMPRESSION: 1. There is no evidence of pulmonary emboli. 2. Bilateral lower lobe airspace disease. 3. The stomach is distended. 4. Chronic changes in the bones consistent with the history of sickle cell disease. COMMENT: Quality ID # [id number]: Final reports with documentation of one or more dose reduction techniques (e.g., Automated exposure control, adjustment of the mA and/or kV according to patient size, use of iterative reconstruction technique) TECHNICAL DOCUMENTATION: JOB ID: [id number] [employer]- All Rights Reserved Reading location - IP/workstation name: [email or web address]
[2018-02-21 12:41] VITALS: BP 142/96
--- NOTE | 2018-02-21 15:38 | EKG REPORT ---
SEVERITY:- NORMAL ECG - SINUS RHYTHM : Confirmed by: Xenia Delgado 21-Feb-2018 15:38:06
== END 2018-02-21 12:50 | disposition short-term general hospital (02) ==
LOC: ER 08:52
DX: D57.01 Hb-SS disease with acute chest syndrome (principal); R06.02 Shortness of breath; R07.1 Chest pain on breathing; J45.909 Unspecified asthma, uncomplicated; R00.0 Tachycardia, unspecified; R09.02 Hypoxemia
CPT/HCPCS: 93005; 96376; 99285; 96361; 96375; 96365; 96367; 36415; 87040; 82803; 85025; 85045; 80053; 84484; 71046; 71275; 93010; J1200; J1170; J7030; J0456; J0696

== ENCOUNTER 2018-02-27 20:29 | Emergency (ER) | payer MEDICAID ==
[2018-02-27 20:49] VITALS: BP 138/91
[2018-02-27] MEDS ORDERED: NORMAL SALINE 1000 ML 1,000 ML IV ONE (22:10)
[2018-02-27] MEDS ORDERED: NORMAL SALINE 1000 ML 1,000 ML IV PRN (22:10)
[2018-02-27] MEDS ORDERED: HYDROMORPHONE HCL INJ/PF 2 MG/ML AMPULE IV ONE (22:13)
[2018-02-27] MEDS ORDERED: DIPHENHYDRAMINE HCL 50 MG/ML VIAL IV ONE (22:13)
--- NOTE | 2018-02-27 22:17 | ER Document Report ---
ED General Pain - General Chief Complaint: Sickle Cell Crisis Stated Complaint: SICKLE CELL CRISIS RIGHT KNEE PAIN Time Seen by Provider: 02/27/18 21:43 Mode of Arrival: Ambulatory Information source: Patient Notes: Chief complaint: Sickle cell pain History of complain:( obtained from----patient) 22 years old male with a history of sickle cell presents today with pain over the right chin bone. He was out in the sun doing some groceries today. Denies any fever chills or other constitutional symptoms Onset: As above Duration: Gradual Severity: Moderate to severe Quality: Sharp Context: Sickle cells Exacerbating factor and relieving factors: REVIEW OF SYSTEMS: CONSTITUTIONAL : Denies fever, chills, or sweats. Denies recent illness. EENT: Denies eye, ear, throat, or mouth pain or symptoms. Denies nasal or sinus congestion or discharge. Denies throat, tongue, or mouth swelling or difficulty swallowing. CARDIOVASCULAR: Denies chest pain. Denies palpitations or racing or irregular heart beat. Denies ankle edema. RESPIRATORY: Denies cough, cold, or chest congestion. Denies shortness of breath, difficulty breathing, or wheezing. GASTROINTESTINAL: Denies distention. Denies nausea, vomiting, or diarrhea. Denies blood in vomitus, stools, or per rectum. Denies black, tarry stools. Denies constipation. GENITOURINARY: Denies difficulty urinating, painful urination, burning, frequency, blood in urine, or discharge. FEMALE GENITOURINARY: Denies vaginal bleeding, heavy or abnormal periods, irregular periods. Denies vaginal discharge or odor. MUSCULOSKELETAL: Denies back or neck pain or stiffness. Denies joint pain or swelling. SKIN: Denies rash, lesions or sores. HEMATOLOGIC : Denies easy bruising or bleeding. LYMPHATIC: Denies swollen, enlarged glands. NEUROLOGICAL: Denies confusion or altered mental status. Denies passing out or loss of consciousness. Denies dizziness or lightheadedness. Denies headache. Denies weakness or paralysis or loss of use of either side. Denies problems with gait or speech. Denies sensory loss, numbness, or tingling. Denies seizures. PSYCHIATRIC: Denies anxiety or stress. Denies depression, suicidal ideation, or homicidal ideation. ALL OTHER SYSTEMS REVIEWED AND NEGATIVE. PHYSICAL EXAMINATION: GENERAL: Well-appearing, well-nourished and in no acute distress. HEAD: Atraumatic, normocephalic. EYES: Pupils equal round and reactive to light, extraocular movements intact, conjunctiva are normal. ENT: Nares patent, oropharynx clear without exudates. Moist mucous membranes. NECK: Normal range of motion, supple without lymphadenopathy LUNGS: Breath sounds clear to auscultation bilaterally and equal. No wheezes rales or rhonchi. HEART: Regular rate and rhythm without murmurs ABDOMEN: Soft, nontender, nondistended abdomen. No guarding, no rebound. No masses appreciated. Examination of genitals-deferred Musculoskeletal: Normal range of motion, no pitting or edema. No cyanosis. NEUROLOGICAL: Cranial nerves grossly intact. Normal speech, normal gait. Normal sensory, motor exams PSYCH: Normal mood, normal affect. SKIN: Warm, Dry, normal turgor, no rashes or lesions noted. Dictation was performed using [employer] voice recognition software TRAVEL OUTSIDE OF THE [place] IN LAST 30 DAYS: No - HPI Patient complains to provider of: Dictated - Related Data Allergies/Adverse Reactions: Coconut * [Coconut] Allergy (Mild, Verified 02/27/18 20:30) transpore tape Allergy (Mild, Uncoded 01/26/18 11:14) Hives Past Medical History - Social History Smoking Status: Never Smoker Cigarette use (# per day): No Chew tobacco use (# tins/day): No Smoking Education Provided: No Frequency of alcohol use: None Drug Abuse: None Family History: Reviewed & Not Pertinent, Arthritis, DM, Hypertension, Other - Sickle cell trait both parents and asthma Patient has suicidal ideation: No Patient has homicidal ideation: No Pulmonary Medical History: Reports: Hx Asthma, Hx Pneumonia Renal/ Medical History: Denies: Hx Peritoneal Dialysis Psychiatric Medical History: Denies: Hx Depression Past Surgical History: Reports: Hx Abdominal Surgery - Gallstones removal, Hx Cholecystectomy, Hx Orthopedic Surgery - Fluid drained from right foot, Hx Vascular Surgery - Port placement - Immunizations Immunizations up to date: Yes Hx Diphtheria, Pertussis, Tetanus Vaccination: Yes Hx Pneumococcal Vaccination: 01/15/13 Review of Systems - Review of Systems Notes: Dictated Physical Exam - Vital signs Vitals: Temp Pulse Resp BP Pulse Ox 98.9 F 122 H 18 138/91 H 94 02/27/18 20:48 02/27/18 20:48 02/27/18 20:48 02/27/18 20:48 02/27/18 20:48 - Notes Notes: Dictated Course - Re-evaluation Re-evalutation: 02/28/18 01:13 Given IV Dilaudid and Benadryl subsequently discharged home. Also given IV fluids - Vital Signs Vital signs: Temp Pulse Resp BP Pulse Ox 98.9 F 122 H 18 138/91 H 94 02/27/18 20:48 02/27/18 20:48 02/27/18 20:48 02/27/18 20:48 02/27/18 20:48 - Laboratory Result Diagrams: 02/27/18 22:31 02/28/18 00:17 Laboratory results interpreted by me: 02/27/18 02/28/18 22:31 00:17 RBC 2.88 L Hgb 9.9 L Hct 28.0 L MCH 34.3 H RDW 28.3 H Monocytes % (Manual) 15 H Retic Count (auto) 7.48 H Absolute Retic 0.215 H Total Bilirubin 2.6 H Direct Bilirubin 0.6 H AST 81 H ALT 19 L Alkaline Phosphatase 133 H Total Protein 9.1 H Discharge - Discharge Clinical Impression: Sickle cell anemia Qualifiers: Sickle-cell associated disorders: without crisis Qualified Code(s): D57.1 - Sickle-cell disease without crisis Condition: Fair Disposition: HOME, SELF-CARE Instructions: Sickle Cell Crisis ([facility]) Referrals: ANDREW WILLIS MD [Primary Care Provider] - Follow up as needed
[2018-02-27 22:50] LABS: ABSOLUTE RETICS # 0.215 10^6/uL (0.028-0.122); HEMOGLOBIN 9.9 g/dL (13.5-17.0); MEAN CORPUSCULAR HEMOGLOBIN 34.3 pg (27.0-33.4); MEAN CORPUSCULAR HGB CONC 35.2 g/dL (32.0-36.0); MEAN CORPUSCULAR VOLUME 97 fl (80-97); PLATELET COUNT 214 10^3/uL (150-450); RED BLOOD COUNT 2.88 10^6/uL (4.35-5.55); RED CELL DISTRIBUTION WIDTH 28.3 % (11.5-14.0); RETICULOCYTE COUNT (AUTO) 7.48 % (0.66-2.85); WHITE BLOOD COUNT 9.3 10^3/uL (4.0-10.5)
[2018-02-27 23:09] LABS: ABSOLUTE LYMPHOCYTES# (MANUAL) 3.2 10^3/uL (0.5-4.7); ABSOLUTE MONOCYTES # (MANUAL) 1.4 10^3/uL (0.1-1.4); ABSOLUTE NEUTROPHILS# (MANUAL) 4.6 10^3/uL (1.7-8.2); BASOPHILS % (MANUAL) 0 % (0-2); EOSINOPHILS % (MANUAL) 2 % (0-6); LYMPHOCYTES % (MANUAL) 32 % (13-45); MONOCYTES % (MANUAL) 15 % (3-13); NUCLEATED RED BLOOD CELLS 10 /100 WBC (0); SEGMENTED NEUTROPHILS % (MAN) 49 % (42-78); TOTAL CELLS COUNTED 100
[2018-02-27 23:14] LABS: TOXIC GRANULATION SLIGHT
[2018-02-27 23:15] LABS: ANISOCYTOSIS 3+; OVALOCYTES SLIGHT; PLATELET COMMENT ADEQUATE; POIKILOCYTOSIS 1+; SICKLE RED CELLS 1+; TARGET CELLS SLIGHT
[2018-02-28 00:48] LABS: ALANINE AMINOTRANSFERASE 19 U/L (21-72); ALBUMIN 4.7 g/dL (3.5-5.0); ALKALINE PHOSPHATASE 133 U/L (38-126); ANION GAP 11 (5-19); ASPARTATE AMINO TRANSFERASE 81 U/L (17-59); BILIRUBIN,DIRECT 0.6 mg/dL (0.0-0.4); BILIRUBIN,TOTAL 2.6 mg/dL (0.2-1.3); BLOOD UREA NITROGEN 17 mg/dL (7-20); CALCIUM 8.8 mg/dL (8.4-10.2); CARBON DIOXIDE 27 mmol/L (22-30); CHLORIDE 107 mmol/L (98-107); GLUCOSE 85 mg/dL (75-110); POTASSIUM 4.8 mmol/L (3.6-5.0); SODIUM 144.6 mmol/L (137-145); TOTAL PROTEIN 9.1 g/dL (6.3-8.2)
[2018-02-28] MEDS ORDERED: DIPHENHYDRAMINE HCL 50 MG/ML VIAL IV ONE (01:13)
[2018-02-28] MEDS ORDERED: HYDROMORPHONE HCL 2 MG TABLET PO ONE (01:13)
== END 2018-02-28 02:25 | disposition home or self-care (01) ==
LOC: ER 20:29
DX: D57.1 Sickle-cell disease without crisis (principal); M25.561 Pain in right knee; J45.909 Unspecified asthma, uncomplicated
CPT/HCPCS: 96376; 99284; 96361; 96374; 96375; 36415; 85025; 85045; 80053; J1200 ×2; J3490; J1170; J7030 ×2

== ENCOUNTER 2018-03-02 18:50 | Emergency (ER) | payer MEDICAID ==
[2018-03-02] MEDS ORDERED: NORMAL SALINE 1000 ML 1,000 ML IV PRN (19:54)
--- NOTE | 2018-03-02 19:55 | ER Document Report ---
ED Medical Screen (RME) - General Chief Complaint: Sickle Cell Crisis Stated Complaint: BACK PAIN Time Seen by Provider: 03/02/18 19:48 Mode of Arrival: Ambulatory Information source: Patient Notes: 22-year-old male history of sickle cell disease who presents with complaints of generalized body aches. Patient notes he was outdoors today and believes he overexerted himself I have greeted and performed a rapid initial assessment of this patient. A comprehensive ED assessment and evaluation of the patient, analysis of test results and completion of the medical decision making process will be conducted by additional ED providers. PHYSICAL EXAMINATION: GENERAL: Well-appearing, well-nourished and in no acute distress. HEAD: Atraumatic, normocephalic. EYES: Pupils equal round extraocular movements intact, conjunctiva are normal. ENT: Nares patent NECK: Normal range of motion LUNGS: No respiratory distress Musculoskeletal: Normal range of motion NEUROLOGICAL: Normal speech, normal gait. PSYCH: Normal mood, normal affect. SKIN: Warm, Dry, normal turgor, no rashes or lesions noted. TRAVEL OUTSIDE OF THE [place] IN LAST 30 DAYS: No - Related Data Allergies/Adverse Reactions: Coconut * [Coconut] Allergy (Mild, Verified 03/02/18 19:45) transpore tape Allergy (Mild, Uncoded 03/02/18 19:45) Hives Past Medical History - Social History Chew tobacco use (# tins/day): No Frequency of alcohol use: Occasional Drug Abuse: None Family history: None Pulmonary Medical History: Reports: Hx Asthma, Hx Pneumonia Renal/ Medical History: Denies: Hx Peritoneal Dialysis Psychiatric Medical History: Denies: Hx Depression Past Surgical History: Reports: Hx Abdominal Surgery - Gallstones removal, Hx Cholecystectomy, Hx Orthopedic Surgery - Fluid drained from right foot, Hx Vascular Surgery - Port placement - Immunizations Immunizations up to date: Yes Hx Diphtheria, Pertussis, Tetanus Vaccination: Yes History of Influenza Vaccine for 06/2017 - 10/2017 Season: Yes Influenza Administration Date for 06/2017 - 10/2017 Season: 06/02/17 Physical Exam - Vital signs Vitals: Temp Pulse Resp BP Pulse Ox 98.9 F 112 H 24 H 143/89 H 96 03/02/18 19:04 03/02/18 19:04 03/02/18 19:04 03/02/18 19:04 03/02/18 19:04 Course - Vital Signs Vital signs: Temp Pulse Resp BP Pulse Ox 98.9 F 112 H 24 H 143/89 H 96 03/02/18 19:04 03/02/18 19:04 03/02/18 19:04 03/02/18 19:04 03/02/18 19:04 Doctor's Discharge - Discharge Referrals: ANDREW WILLIS MD [Primary Care Provider] - Follow up as needed
--- NOTE | 2018-03-02 20:29 | RADIOLOGY REPORT (SQ) ---
EXAM DESCRIPTION: CHEST 2 VIEWS COMPLETED DATE/TIME: 03/02/2018 8:19 pm REASON FOR STUDY: sickle cell COMPARISON: 02/21/2018 EXAM PARAMETERS: NUMBER OF VIEWS: two views TECHNIQUE: Digital Frontal and Lateral radiographic views of the chest acquired. RADIATION DOSE: NA LIMITATIONS: none FINDINGS: LUNGS AND PLEURA: No opacities, masses or pneumothorax. No pleural effusion. MEDIASTINUM AND HILAR STRUCTURES: No masses or contour abnormalities. HEART AND VASCULAR STRUCTURES: Heart normal size. No evidence for failure. BONES: The bony changes of sickle cell disease. HARDWARE: None in the chest. OTHER: No other significant finding. IMPRESSION: Marked improved aeration of the lungs. No acute pulmonary disease. TECHNICAL DOCUMENTATION: JOB ID: [id number] [employer]- All Rights Reserved Reading location - IP/workstation name: [email or web address]
[2018-03-02] MEDS ORDERED: HYDROMORPHONE HCL INJ/PF 2 MG/ML AMPULE IV PRN (22:42)
[2018-03-02 22:53] LABS: ALANINE AMINOTRANSFERASE 21 U/L (21-72); ALBUMIN 4.8 g/dL (3.5-5.0); ALKALINE PHOSPHATASE 137 U/L (38-126); ANION GAP 12 (5-19); ASPARTATE AMINO TRANSFERASE 54 U/L (17-59); BILIRUBIN,DIRECT 0.5 mg/dL (0.0-0.4); BILIRUBIN,TOTAL 2.3 mg/dL (0.2-1.3); BLOOD UREA NITROGEN 15 mg/dL (7-20); CALCIUM 9.5 mg/dL (8.4-10.2); CARBON DIOXIDE 24 mmol/L (22-30); CHLORIDE 109 mmol/L (98-107); GLUCOSE 87 mg/dL (75-110); POTASSIUM 4.2 mmol/L (3.6-5.0); SODIUM 145.2 mmol/L (137-145); TOTAL PROTEIN 8.9 g/dL (6.3-8.2)
--- NOTE | 2018-03-02 23:24 | ER Document Report ---
ED General - General Chief Complaint: Sickle Cell Crisis Stated Complaint: BACK PAIN Time Seen by Provider: 03/02/18 19:48 Mode of Arrival: Ambulatory Notes: Patient is a 22 year old male with a past medical history of sickle cell anemia who presents in acute sickle cell crisis. The patient describes a severe, throbbing, constant pain to his low back that started early this morning has been progressively worsening since that time. He states that this does feel somewhat similar to sickle cell crises he has had in the past. He denies any acute fall or direct injury to the back. He has not tried anything for pain at home. Nothing worsens or improves his symptoms. He denies any shortness of breath, cough, or fever. He has not seen his manager ems regarding today's concerns with states he has an appointment at 10:15 in the morning tomorrow. TRAVEL OUTSIDE OF THE [place] IN LAST 30 DAYS: No - Related Data Allergies/Adverse Reactions: Coconut * [Coconut] Allergy (Mild, Verified 03/02/18 19:45) transpore tape Allergy (Mild, Uncoded 03/02/18 19:45) Hives Past Medical History - General Information source: Patient - Social History Smoking Status: Never Smoker Chew tobacco use (# tins/day): No Frequency of alcohol use: Occasional Drug Abuse: None Lives with: Spouse/Significant other Family History: Reviewed & Not Pertinent, Arthritis, DM, Hypertension, Other - Sickle cell trait both parents and asthma Patient has suicidal ideation: No Patient has homicidal ideation: No Pulmonary Medical History: Reports: Hx Asthma, Hx Pneumonia Renal/ Medical History: Denies: Hx Peritoneal Dialysis Psychiatric Medical History: Denies: Hx Depression Past Surgical History: Reports: Hx Abdominal Surgery - Gallstones removal, Hx Cholecystectomy, Hx Orthopedic Surgery - Fluid drained from right foot, Hx Vascular Surgery - Port placement - Immunizations Immunizations up to date: Yes Hx Diphtheria, Pertussis, Tetanus Vaccination: Yes Hx Pneumococcal Vaccination: 01/15/13 Review of Systems - Review of Systems Notes: Constitutional: Negative for fever. HENT: Negative for sore throat. Eyes: Negative for visual changes. Cardiovascular: Negative for chest pain. Respiratory: Negative for shortness of breath. Gastrointestinal: Negative for abdominal pain, vomiting or diarrhea. Genitourinary: Negative for dysuria. Musculoskeletal: Positive for low back pain Skin: Negative for rash. Neurological: Negative for headaches, weakness or numbness. 10 point ROS negative except as marked above and in HPI. Physical Exam - Vital signs Vitals: Temp Pulse Resp BP Pulse Ox 98.9 F 112 H 24 H 143/89 H 96 03/02/18 19:04 03/02/18 19:04 03/02/18 19:04 03/02/18 19:04 03/02/18 19:04 Interpretation: Tachycardic Notes: PHYSICAL EXAMINATION: GENERAL: Well-appearing, well-nourished and in no acute distress. HEAD: Atraumatic, normocephalic. EYES: Pupils equal round and reactive to light, extraocular movements intact, sclera anicteric, conjunctiva are normal. ENT: nares patent, oropharynx clear without exudates. Moist mucous membranes. NECK: Normal range of motion, supple without lymphadenopathy LUNGS: Breath sounds clear to auscultation bilaterally and equal. No wheezes rales or rhonchi. HEART: Regular rate and rhythm without murmurs ABDOMEN: Soft, nontender, normoactive bowel sounds. No guarding, no rebound. No masses appreciated. EXTREMITIES: Normal range of motion, no pitting or edema. No cyanosis. Back: No midline spinal tenderness, step-offs or deformities NEUROLOGICAL: 5 out of 5 strength both distally and proximally bilateral lower extremities. 2+ patellar reflexes bilaterally. No clonus. Sensation grossly intact in the bilateral lower extremities. Patient is able to ambulate without difficulty. PSYCH: Normal mood, normal affect. SKIN: Warm, Dry, normal turgor, no rashes or lesions noted. Course - Re-evaluation Re-evalutation: 03/02/18 23:23 Presentation is most consistent with an uncomplicated sickle cell pain crisis. Patient has no evidence of an aplastic crisis on labs. Chest x-ray and vitals are not consistent with acute chest syndrome. Vitals have remained within normal limits here in the emergency department. Patient's pain has been able to be controlled using IV analgesia. The patient is agreeable to discharge home at this time. I recommended that they follow closely with their primary manager ems. At this time will discharge with return precautions and follow- up recommendations. Verbal discharge instructions given a the bedside and opportunity for questions given. Medication warnings reviewed. Patient is in agreement with this plan and has verbalized understanding of return precautions and the need for primary care follow-up in the next 24-72 hours. - Vital Signs Vital signs: Temp Pulse Resp BP Pulse Ox 98.9 F 112 H 24 H 143/89 H 96 03/02/18 19:04 03/02/18 19:04 03/02/18 19:04 03/02/18 19:04 03/02/18 19:04 - Laboratory Result Diagrams: 03/02/18 23:12 03/02/18 22:30 Laboratory results interpreted by me: 03/02/18 03/02/18 22:30 23:12 RBC 2.58 L Hgb 9.3 L Hct 26.4 L MCV 102 H D MCH 36.0 H RDW 33.0 H Abs Neuts (Manual) 0.0 L Abs Lymphs (Manual) 0.0 L Abs Monocytes (Manual) 0.0 L Sodium 145.2 H Chloride 109 H Total Bilirubin 2.3 H Direct Bilirubin 0.5 H Alkaline Phosphatase 137 H Total Protein 8.9 H - Diagnostic Test Radiology reviewed: Image reviewed, Reports reviewed Radiology results interpreted by me: 03/02/18 23:24 Chest x-ray: No acute infiltrate Discharge - Discharge Clinical Impression: Sickle cell crisis Low back pain Qualifiers: Chronicity: acute Back pain laterality: bilateral Sciatica presence: without sciatica Qualified Code(s): M54.5 - Low back pain Condition: Good Disposition: HOME, SELF-CARE Additional Instructions: You were seen today for sickle cell pain crisis. Please follow-up with your manager ems. Returning to the ED if you have worsening pain, fever greater than 100.4, shortness of breath, persistent vomiting, or any other symptoms that are concerning to you. Referrals: ANDREW WILLIS MD [Primary Care Provider] - Follow up as needed
[2018-03-02 23:39] LABS: HEMATOCRIT 26.4 % (37.9-51.0); HEMOGLOBIN 9.3 g/dL (13.5-17.0); MEAN CORPUSCULAR HGB CONC 35.2 g/dL (32.0-36.0); PLATELET COUNT 285 10^3/uL (150-450); RED BLOOD COUNT 2.58 10^6/uL (4.35-5.55)
[2018-03-03 00:10] LABS: MEAN CORPUSCULAR VOLUME 102 fl (80-97)
[2018-03-03] MEDS ORDERED: METOCLOPRAMIDE HCL INJ/PF 10 MG/2 ML SDV IV ONE (00:26)
[2018-03-03 00:38] LABS: BASOPHILS % (MANUAL) 0 % (0-2); EOSINOPHILS % (MANUAL) 2 % (0-6); LYMPHOCYTES % (MANUAL) 32 % (13-45); MONOCYTES % (MANUAL) 6 % (3-13); NUCLEATED RED BLOOD CELLS 69 /100 WBC (0); SEGMENTED NEUTROPHILS % (MAN) 60 % (42-78); TOTAL CELLS COUNTED 100
[2018-03-03] MEDS: HYDROMORPHONE HCL INJ/PF 2 MG/ML AMPULE IV PRN ×2 (00:40→02:23)
[2018-03-03 00:41] LABS: ANISOCYTOSIS 4+; POLYCHROMASIA 2+; SICKLE RED CELLS 4+; TARGET CELLS 1+
[2018-03-03 00:42] LABS: PLATELET COMMENT ADEQUATE
[2018-03-03 03:23] VITALS: BP 144/91
== END 2018-03-03 03:38 | disposition home or self-care (01) ==
LOC: ER 18:50
DX: D57.1 Sickle-cell disease without crisis (principal); M54.5 Low back pain; J45.909 Unspecified asthma, uncomplicated
CPT/HCPCS: 96376; 99284; 96374; 96375; 36415; 85025; 80053; 71046; J2765; J1170 ×2

== ENCOUNTER 2018-03-03 23:51 | Emergency (ER) | payer MEDICAID ==
[2018-03-04] MEDS ORDERED: METOCLOPRAMIDE HCL INJ/PF 10 MG/2 ML SDV IV ONE (00:20)
[2018-03-04] MEDS: HYDROMORPHONE HCL INJ/PF 2 MG/ML AMPULE IV PRN ×3 (01:09→03:23)
[2018-03-04 01:26] LABS: HEMATOCRIT 29.1 % (37.9-51.0); MEAN CORPUSCULAR HEMOGLOBIN 35.6 pg (27.0-33.4); MEAN CORPUSCULAR HGB CONC 34.5 g/dL (32.0-36.0); MEAN CORPUSCULAR VOLUME 103 fl (80-97); PLATELET COUNT 298 10^3/uL (150-450); RED BLOOD COUNT 2.82 10^6/uL (4.35-5.55); RED CELL DISTRIBUTION WIDTH 33.1 % (11.5-14.0); RETICULOCYTE COUNT (AUTO) 13.15 % (0.66-2.85); WHITE BLOOD COUNT 7.6 10^3/uL (4.0-10.5)
[2018-03-04 01:44] LABS: ANION GAP 12 (5-19); BLOOD UREA NITROGEN 14 mg/dL (7-20); CALCIUM 9.4 mg/dL (8.4-10.2); CARBON DIOXIDE 25 mmol/L (22-30); CHLORIDE 110 mmol/L (98-107); GLUCOSE 103 mg/dL (75-110); POTASSIUM 4.9 mmol/L (3.6-5.0)
[2018-03-04 02:00] LABS: ABSOLUTE LYMPHOCYTES# (MANUAL) 2.8 10^3/uL (0.5-4.7); ABSOLUTE MONOCYTES # (MANUAL) 0.6 10^3/uL (0.1-1.4); BASOPHILS % (MANUAL) 0 % (0-2); EOSINOPHILS % (MANUAL) 2 % (0-6); LYMPHOCYTES % (MANUAL) 35 % (13-45); MONOCYTES % (MANUAL) 8 % (3-13); NUCLEATED RED BLOOD CELLS 86 /100 WBC (0); SEGMENTED NEUTROPHILS % (MAN) 53 % (42-78); TOTAL CELLS COUNTED 100
[2018-03-04 02:05] LABS: ANISOCYTOSIS 4+; POLYCHROMASIA 2+
[2018-03-04 02:06] LABS: HYPOCHROMASIA 1+; POIKILOCYTOSIS 2+; SICKLE RED CELLS 3+
[2018-03-04 02:07] LABS: PLATELET COMMENT ADEQUATE; SCHISTOCYTES SLIGHT
--- NOTE | 2018-03-04 02:20 | ER Document Report ---
ED General - General Chief Complaint: Sickle Cell Crisis Stated Complaint: BACK AND RIGHT KNEE PAIN Time Seen by Provider: 03/04/18 00:20 Notes: Patient is a 22-year-old male with a past medical history of sickle cell anemia , hemoglobin SS who presents with right knee pain as well as ongoing low back pain. I saw the patient yesterday at that time he did not have any right knee pain was only complaining of low back pain. He states that he felt well after discharge yesterday but today has had a progressive worsening of a throbbing, aching, constant pain to his right knee. He states that he continues to have some mild, dull, throbbing pain to his low back but notes that is much better than yesterday. He denies any cough, shortness of breath, fever or constitutional symptoms. He did follow-up with his filler shredder today as scheduled. Nothing is been noted to improve or worsen his pain. TRAVEL OUTSIDE OF THE [place] IN LAST 30 DAYS: No - Related Data Allergies/Adverse Reactions: Coconut * [Coconut] Allergy (Mild, Verified 03/02/18 19:45) transpore tape Allergy (Mild, Uncoded 03/02/18 19:45) Hives Past Medical History - General Information source: Patient - Social History Smoking Status: Never Smoker Chew tobacco use (# tins/day): No Frequency of alcohol use: None Drug Abuse: None Lives with: Spouse/Significant other Family History: Reviewed & Not Pertinent, Arthritis, DM, Hypertension, Other - Sickle cell trait both parents and asthma Patient has suicidal ideation: No Patient has homicidal ideation: No Pulmonary Medical History: Reports: Hx Asthma, Hx Pneumonia Renal/ Medical History: Denies: Hx Peritoneal Dialysis Psychiatric Medical History: Denies: Hx Depression Past Surgical History: Reports: Hx Abdominal Surgery - Gallstones removal, Hx Cholecystectomy, Hx Orthopedic Surgery - Fluid drained from right foot, Hx Vascular Surgery - Port placement - Immunizations Immunizations up to date: Yes Hx Diphtheria, Pertussis, Tetanus Vaccination: Yes Hx Pneumococcal Vaccination: 01/15/13 Review of Systems - Review of Systems Notes: Constitutional: Negative for fever. HENT: Negative for sore throat. Eyes: Negative for visual changes. Cardiovascular: Negative for chest pain. Respiratory: Negative for shortness of breath. Gastrointestinal: Negative for abdominal pain, vomiting or diarrhea. Genitourinary: Negative for dysuria. Musculoskeletal: Positive for right knee pain and low back pain Skin: Negative for rash. Neurological: Negative for headaches, weakness or numbness. 10 point ROS negative except as marked above and in HPI. Physical Exam - Vital signs Vitals: Temp Pulse Resp BP Pulse Ox 98.8 F 119 H 17 115/77 95 03/03/18 23:55 03/03/18 23:55 03/03/18 23:55 03/03/18 23:55 03/03/18 23:55 Interpretation: Tachycardic Notes: PHYSICAL EXAMINATION: GENERAL: Appears mildly uncomfortable but in no acute distress HEAD: Atraumatic, normocephalic. EYES: Pupils equal round and reactive to light, extraocular movements intact, sclera anicteric, conjunctiva are normal. ENT: nares patent, oropharynx clear without exudates. Moist mucous membranes. NECK: Normal range of motion, supple without lymphadenopathy LUNGS: Breath sounds clear to auscultation bilaterally and equal. No wheezes rales or rhonchi. HEART: Regular tachycardia without murmurs ABDOMEN: Soft, nontender, normoactive bowel sounds. No guarding, no rebound. No masses appreciated. EXTREMITIES: Normal range of motion, no pitting or edema. No cyanosis. NEUROLOGICAL: No focal neurological deficits. Moves all extremities spontaneously and on command. PSYCH: Normal mood, normal affect. SKIN: Warm, Dry, normal turgor, no rashes or lesions noted. Course - Re-evaluation Re-evalutation: 03/04/18 02:19 Presentation is most consistent with an uncomplicated sickle cell pain crisis. Patient has no evidence of an aplastic crisis on labs. Chest x-ray and vitals are not consistent with acute chest syndrome. Vitals have remained within normal limits here in the emergency department. Patient's pain has been able to be controlled using IV analgesia. The patient is agreeable to discharge home at this time. I recommended that they follow closely with their primary filler shredder. At this time will discharge with return precautions and follow- up recommendations. Verbal discharge instructions given a the bedside and opportunity for questions given. Medication warnings reviewed. Patient is in agreement with this plan and has verbalized understanding of return precautions and the need for primary care follow-up in the next 24-72 hours. - Vital Signs Vital signs: Temp Pulse Resp BP Pulse Ox 98.8 F 119 H 17 115/77 95 03/03/18 23:55 03/03/18 23:55 03/03/18 23:55 03/03/18 23:55 03/03/18 23:55 - Laboratory Result Diagrams: 03/04/18 01:11 03/04/18 01:11 Laboratory results interpreted by me: 03/04/18 03/04/18 01:11 01:11 RBC 2.82 L Hgb 10.0 L Hct 29.1 L MCV 103 H MCH 35.6 H RDW 33.1 H Retic Count (auto) 13.15 H Absolute Retic 0.370 H Sodium 147.0 H Chloride 110 H Discharge - Discharge Clinical Impression: Sickle cell crisis Right knee pain Qualifiers: Chronicity: acute Qualified Code(s): M25.561 - Pain in right knee Condition: Good Disposition: HOME, SELF-CARE Additional Instructions: You were seen today for sickle cell pain crisis. Please follow-up with your filler shredder. Returning to the ED if you have worsening pain, fever greater than 100.4, shortness of breath, persistent vomiting, or any other symptoms that are concerning to you. Referrals: ANDREW WILLIS MD [Primary Care Provider] - Follow up as needed
[2018-03-04 03:35] VITALS: BP 137/89
== END 2018-03-04 03:34 | disposition home or self-care (01) ==
LOC: ER 23:51
DX: D57.00 Hb-SS disease with crisis, unspecified (principal); M25.561 Pain in right knee; M54.5 Low back pain; J45.909 Unspecified asthma, uncomplicated; R00.0 Tachycardia, unspecified
CPT/HCPCS: 96376; 99284; 96374; 96375; 36415; 85025; 85045; 80048; J2765; J1170

== ENCOUNTER 2018-03-07 23:48 | Emergency (ER) | payer MEDICAID ==
[2018-03-08] MEDS ORDERED: METOCLOPRAMIDE HCL INJ/PF 10 MG/2 ML SDV IV ONE (01:47)
[2018-03-08] MEDS ORDERED: HYDROMORPHONE HCL INJ/PF 2 MG/ML AMPULE IV PRN (01:47)
[2018-03-08] MEDS ORDERED: DIPHENHYDRAMINE HCL 50 MG/ML VIAL IV ONE (01:52)
[2018-03-08 04:38] LABS: ABSOLUTE RETICS # 0.339 10^6/uL (0.028-0.122); HEMATOCRIT 28.9 % (37.9-51.0); HEMOGLOBIN 10.2 g/dL (13.5-17.0); MEAN CORPUSCULAR HEMOGLOBIN 35.6 pg (27.0-33.4); MEAN CORPUSCULAR HGB CONC 35.5 g/dL (32.0-36.0); MEAN CORPUSCULAR VOLUME 100 fl (80-97); PLATELET COUNT 315 10^3/uL (150-450); RED BLOOD COUNT 2.88 10^6/uL (4.35-5.55); RED CELL DISTRIBUTION WIDTH 30.6 % (11.5-14.0); RETICULOCYTE COUNT (AUTO) 11.79 % (0.66-2.85)
[2018-03-08 05:14] LABS: BASOPHILS % (MANUAL) 0 % (0-2); EOSINOPHILS % (MANUAL) 2 % (0-6); LYMPHOCYTES % (MANUAL) 26 % (13-45); MONOCYTES % (MANUAL) 13 % (3-13); NUCLEATED RED BLOOD CELLS 67 /100 WBC (0); SEGMENTED NEUTROPHILS % (MAN) 57 % (42-78); TOTAL CELLS COUNTED 100
[2018-03-08 05:16] LABS: ANISOCYTOSIS 4+; HYPOCHROMASIA 1+; POIKILOCYTOSIS 3+; POLYCHROMASIA 1+
[2018-03-08 05:17] LABS: PLATELET COMMENT ADEQUATE; SCHISTOCYTES 1+; SICKLE RED CELLS 3+; TARGET CELLS 1+
[2018-03-08 05:20] LABS: WHITE BLOOD COUNT 7.8 10^3/uL (4.0-10.5)
--- NOTE | 2018-03-08 05:43 | ER Document Report ---
ED General - General Chief Complaint: Sickle Cell Crisis Stated Complaint: KNEE PAIN Time Seen by Provider: 03/08/18 01:37 Mode of Arrival: Ambulatory Information source: Patient Notes: Patient is a 22-year-old male who is well-known to our facility who presents with complaint of possible sickle cell crisis. Patient presents with bilateral knee pain. Patient reports that this is been going on for approximately 1 day. Patient reports that the symptoms have gotten worse faster than usual. Patient denies any fevers, chest pain, shortness of breath, abdominal pain or any other symptoms. TRAVEL OUTSIDE OF THE [place] IN LAST 30 DAYS: No - Related Data Allergies/Adverse Reactions: Coconut * [Coconut] Allergy (Mild, Verified 03/02/18 19:45) transpore tape Allergy (Mild, Uncoded 03/02/18 19:45) Hives Past Medical History - General Information source: Patient - Social History Smoking Status: Never Smoker Frequency of alcohol use: None Drug Abuse: None Family History: Reviewed & Not Pertinent, Arthritis, DM, Hypertension, Other - Sickle cell trait both parents and asthma Pulmonary Medical History: Reports: Hx Asthma, Hx Pneumonia Renal/ Medical History: Denies: Hx Peritoneal Dialysis Psychiatric Medical History: Denies: Hx Depression Past Surgical History: Reports: Hx Abdominal Surgery - Gallstones removal, Hx Cholecystectomy, Hx Orthopedic Surgery - Fluid drained from right foot, Hx Vascular Surgery - Port placement - Immunizations Immunizations up to date: Yes Hx Diphtheria, Pertussis, Tetanus Vaccination: Yes Hx Pneumococcal Vaccination: 01/15/13 Review of Systems - Review of Systems Constitutional: No symptoms reported EENT: No symptoms reported Cardiovascular: No symptoms reported Respiratory: No symptoms reported Gastrointestinal: No symptoms reported Genitourinary: No symptoms reported Male Genitourinary: No symptoms reported Musculoskeletal: See HPI Skin: No symptoms reported Hematologic/Lymphatic: No symptoms reported Neurological/Psychological: No symptoms reported Physical Exam - Vital signs Vitals: Temp Pulse Resp BP Pulse Ox 99.4 F 115 H 16 135/83 H 91 L 03/07/18 23:59 03/07/18 23:59 03/07/18 23:59 03/07/18 23:59 03/07/18 23:59 - Notes Notes: PHYSICAL EXAMINATION: GENERAL: Well-appearing, well-nourished and in no acute distress. HEAD: Atraumatic, normocephalic. EYES: Pupils equal round and reactive to light, extraocular movements intact, sclera anicteric, conjunctiva are normal. ENT: Nares patent, oropharynx clear without exudates. Moist mucous membranes. NECK: Normal range of motion, supple without lymphadenopathy LUNGS: Breath sounds clear to auscultation bilaterally and equal. No wheezes rales or rhonchi. HEART: Regular rate and rhythm without murmurs ABDOMEN: Soft, nontender, nondistended abdomen. No guarding, no rebound. No masses appreciated. Musculoskeletal: Normal range of motion, no pitting or edema. No cyanosis. NEUROLOGICAL: Cranial nerves grossly intact. Normal speech, normal gait. Normal sensory, motor exams PSYCH: Normal mood, normal affect. SKIN: Warm, Dry, normal turgor, no rashes or lesions noted. Course - Re-evaluation Re-evalutation: 22-year-old male patient who is well-known to our facility presenting with bilateral knee pain. Patient has a history of sickle cell and typically presents with knee pain when he is in crisis. Patient reports that this episode started yesterday morning and has progressively gotten worse through the day. Patient's initial vital signs were stable other than an initial oxygen saturation of 91% however upon arrival to the room patient's oxygen saturation was 96% on room air. Will draw CBC, reticulocyte count, basic metabolic panel and medicate patient for pain and nausea. Patient will be reevaluated at that point. Reticulocyte count 11.79. Patient reports moderate pain relief after administration of Dilaudid. Will re-dose with additional 1 mg IV Dilaudid. On reevaluation, patient reports his pain is mostly resolved. Patient's oxygen saturation is 98% on room air, vital signs are all stable. Patient will be discharged in stable condition. Patient will take his own chronic pain medications at home and no prescriptions will be provided. - Vital Signs Vital signs: Temp Pulse Resp BP Pulse Ox 99.4 F 107 H 22 H 135/83 H 100 03/07/18 23:59 03/08/18 01:00 03/08/18 00:00 03/07/18 23:59 03/08/18 01:00 - Laboratory Result Diagrams: 03/08/18 04:10 03/08/18 06:15 Laboratory results interpreted by me: 03/08/18 03/08/18 04:10 06:15 RBC 2.88 L Hgb 10.2 L Hct 28.9 L MCV 100 H MCH 35.6 H RDW 30.6 H Abs Neuts (Manual) 0.0 L Abs Lymphs (Manual) 0.0 L Abs Monocytes (Manual) 0.0 L Retic Count (auto) 11.79 H Absolute Retic 0.339 H Sodium 146.7 H Glucose 134 H Discharge - Discharge Clinical Impression: Sickle cell crisis Condition: Stable Disposition: HOME, SELF-CARE Additional Instructions: Sickle Cell Crisis You have "sickle cell crisis." Sickle cell disease is caused by abnormal hemoglobin. This hemoglobin can deform red blood cells into a sickle shape. These abnormal blood cells can block blood vessels. This causes the pain of sickle cell crisis. Sickle cell crisis can occur any time. But attacks are more likely with acute infection, dehydration, or altitude change. A crisis usually causes pain in the legs, back, abdomen, and chest. Sometimes the pain may ease and return later. The usual treatment is oxygen, pain medication, IV fluids, and treatment of infection. Attacks may take a couple of days to resolve. Return if the pain becomes more severe, or if there are new symptoms. Referrals: ANDREW WILLIS MD [Primary Care Provider] - Follow up as needed
[2018-03-08 06:43] LABS: ANION GAP 13 (5-19); BLOOD UREA NITROGEN 11 mg/dL (7-20); CALCIUM 9.2 mg/dL (8.4-10.2); CARBON DIOXIDE 27 mmol/L (22-30); CHLORIDE 107 mmol/L (98-107); GLUCOSE 134 mg/dL (75-110); POTASSIUM 4.8 mmol/L (3.6-5.0); SODIUM 146.7 mmol/L (137-145)
[2018-03-08 06:51] VITALS: BP 139/88
== END 2018-03-08 06:52 | disposition home or self-care (01) ==
LOC: ER 23:48
DX: D57.00 Hb-SS disease with crisis, unspecified (principal); M25.561 Pain in right knee; M25.562 Pain in left knee; J45.909 Unspecified asthma, uncomplicated
CPT/HCPCS: 99284; 96374; 96375; 36415; 85025; 85045; 80048; J2765; J1170

== ENCOUNTER 2018-03-10 03:04 | Inpatient (IN) | payer MEDICAID ==
[2018-03-10] MEDS ORDERED: DIPHENHYDRAMINE HCL 50 MG/ML VIAL IV ONE ×2 (03:23→05:43)
[2018-03-10] MEDS ORDERED: NORMAL SALINE 1000 ML 1,000 ML IV ONE ×2 (03:23→05:05)
[2018-03-10] MEDS ORDERED: ONDANSETRON 4 MG TAB.RAPDIS PO ONE (03:24)
[2018-03-10] MEDS: HYDROMORPHONE HCL INJ/PF 2 MG/ML AMPULE IV PRN ×7 (03:29→20:56)
--- NOTE | 2018-03-10 03:30 | ER Document Report ---
ED General - General Chief Complaint: Sickle Cell Crisis Stated Complaint: KNEE AND BACK PAIN Time Seen by Provider: 03/10/18 03:22 TRAVEL OUTSIDE OF THE [place] IN LAST 30 DAYS: No - HPI Notes: Patient is a 22-year-old male with history of sickle cell and avascular necrosis who presents to the ED complaining of another sickle cell crisis with b /l knee pain, low back pain, and chest pain. His pains do not radiate. Pt states that his pain is typical for his sickle cell flare ups. He has been eating and drinking without difficulties. He has been urinating normal and having normal bowel movements. No other concerns or complaints. Denies any headache, fever, neck pain, URI, sore throat, palpitations, syncope, cough, shortness of breath, wheeze, dyspnea, abdominal pain, nausea/vomiting/diarrhea, urinary retention, dysuria, hematuria, loss of control of bowel or bladder, numbness/tingling, saddle anesthesia, muscle paralysis/weakness, or rash. - Related Data Allergies/Adverse Reactions: Coconut * [Coconut] Allergy (Mild, Verified 03/02/18 19:45) transpore tape Allergy (Mild, Uncoded 03/02/18 19:45) Hives Past Medical History - Social History Smoking Status: Never Smoker Family History: Reviewed & Not Pertinent, Arthritis, DM, Hypertension, Other - Sickle cell trait both parents and asthma Pulmonary Medical History: Reports: Hx Asthma, Hx Pneumonia Renal/ Medical History: Denies: Hx Peritoneal Dialysis Psychiatric Medical History: Denies: Hx Depression Past Surgical History: Reports: Hx Abdominal Surgery - Gallstones removal, Hx Cholecystectomy, Hx Orthopedic Surgery - Fluid drained from right foot, Hx Vascular Surgery - Port placement - Immunizations Immunizations up to date: Yes Hx Diphtheria, Pertussis, Tetanus Vaccination: Yes Hx Pneumococcal Vaccination: 01/15/13 Review of Systems - Review of Systems -: Yes All other systems reviewed and negative Physical Exam - Vital signs Vitals: Temp Pulse Resp BP Pulse Ox 98.3 F 100 16 136/89 H 92 03/10/18 03:07 03/10/18 03:07 03/10/18 03:07 03/10/18 03:07 03/10/18 03:07 - Notes Notes: PHYSICAL EXAMINATION: GENERAL: Well-appearing, well-nourished and in no acute distress. A&ox4. Answers questions appropriately. HEAD: Atraumatic, normocephalic. EYES: Pupils equal round and reactive to light, extraocular movements intact, sclera anicteric, conjunctiva are normal. ENT: Nares patent and without discharge. oropharynx clear without exudates. No tonsilar hypertrophy or erythema. Moist mucous membranes. NECK: Normal range of motion, supple without lymphadenopathy LUNGS: Breath sounds clear to auscultation bilaterally and equal. No wheezes rales or rhonchi. HEART: Regular rate and rhythm without murmurs, rubs, gallops. ABDOMEN: Soft, nontender, nondistended abdomen. No guarding, no rebound. No masses appreciated. Normal bowel sounds present. No CVA tenderness bilaterally. Musculoskeletal: Knees b/l: FROM to passive/active. Strength 5+/5. N/V intact distal. Non-tender to palp. No obvious erythema, swelling, or ecchymosis/ warmth. Extremities: No cyanosis, clubbing, or edema b/l. Peripheral pulses 2+. Capillary refill less than 3 seconds. NEUROLOGICAL: Normal speech, normal gait. Normal sensory, motor exams PSYCH: Normal mood, normal affect. SKIN: Warm, Dry, normal turgor, no rashes or lesions noted. Course - Re-evaluation Re-evalutation: 03/10/18 05:57 Patient is an afebrile, well-hydrated, 22-year-old male who presents to the ED with sickle cell crisis with minimal improvements in pain status post treatment here in the ED today. Vitals are acceptable. PE is otherwise unremarkable. Chest x-ray was unremarkable. Reticulocyte count did increase from 11-14 and he did have a slight drop in hemoglobin from 10.2-9.6. Reviewed with Dr. Cohn who advised admission. Briefed case with Dr. Carlos who is agreeable to admission at this time (Dr. Moore wanted me to check with hematology first). Dr. Moore accepted patient for Dr. Stanton. Pt in agreement with plan. - Vital Signs Vital signs: Temp Pulse Resp BP Pulse Ox 98.3 F 100 16 136/89 H 92 03/10/18 03:07 03/10/18 03:07 03/10/18 03:07 03/10/18 03:07 03/10/18 03:07 - Laboratory Result Diagrams: 03/10/18 03:35 03/10/18 03:35 Laboratory results interpreted by me: 03/10/18 03/10/18 03:35 03:35 RBC 2.69 L Hgb 9.6 L Hct 27.2 L MCV 101 H MCH 35.7 H RDW 30.2 H Abs Neuts (Manual) 0.0 L Abs Lymphs (Manual) 0.0 L Abs Monocytes (Manual) 0.0 L Retic Count (auto) 14.92 H Absolute Retic 0.401 H Sodium 148.9 H Chloride 110 H Total Bilirubin 2.5 H Direct Bilirubin 0.5 H AST 66 H Discharge - Discharge Clinical Impression: Sickle cell anemia with pain Chest pain Qualifiers: Chest pain type: unspecified Qualified Code(s): R07.9 - Chest pain, unspecified Condition: Stable Disposition: ADMITTED INPATIENT Admitting Provider: Maximino Unit Admitted: Telemetry
[2018-03-10 03:53] LABS: ABSOLUTE RETICS # 0.401 10^6/uL (0.028-0.122); HEMATOCRIT 27.2 % (37.9-51.0); HEMOGLOBIN 9.6 g/dL (13.5-17.0); MEAN CORPUSCULAR HEMOGLOBIN 35.7 pg (27.0-33.4); MEAN CORPUSCULAR HGB CONC 35.4 g/dL (32.0-36.0); MEAN CORPUSCULAR VOLUME 101 fl (80-97); PLATELET COUNT 288 10^3/uL (150-450); RED BLOOD COUNT 2.69 10^6/uL (4.35-5.55); RED CELL DISTRIBUTION WIDTH 30.2 % (11.5-14.0); RETICULOCYTE COUNT (AUTO) 14.92 % (0.66-2.85)
--- NOTE | 2018-03-10 04:11 | RADIOLOGY REPORT (SQ) ---
Clinical History : chest pain, sickle cell , Exam : PA and lateral views of the chest 03/10/2018 3:22 AM CDT Comparisons : PA and lateral views of the chest March 02, 2018 Findings : The lungs are clear without focal consolidation or pleural effusion. The heart is normal in size. The mediastinal contours are normal in appearance. . Stable early changes of sickle cell disease throughout the thoracic spine.. The shoulders are unremarkable. Limited evaluation of the upper abdomen demonstrates no gross abnormalities. Impression: 1. No acute cardiopulmonary disease 2. Stable osseous changes of sickle cell disease.
[2018-03-10 04:20] LABS: ALANINE AMINOTRANSFERASE 28 U/L (21-72); ALBUMIN 4.3 g/dL (3.5-5.0); ALKALINE PHOSPHATASE 105 U/L (38-126); ANION GAP 12 (5-19); ASPARTATE AMINO TRANSFERASE 66 U/L (17-59); BILIRUBIN,DIRECT 0.5 mg/dL (0.0-0.4); BILIRUBIN,TOTAL 2.5 mg/dL (0.2-1.3); BLOOD UREA NITROGEN 13 mg/dL (7-20); CALCIUM 9.2 mg/dL (8.4-10.2); CARBON DIOXIDE 27 mmol/L (22-30); CHLORIDE 110 mmol/L (98-107); GLUCOSE 109 mg/dL (75-110); POTASSIUM 4.4 mmol/L (3.6-5.0); SODIUM 148.9 mmol/L (137-145); TOTAL PROTEIN 8.1 g/dL (6.3-8.2)
[2018-03-10 04:34] LABS: BASOPHILS % (MANUAL) 0 % (0-2); EOSINOPHILS % (MANUAL) 1 % (0-6); LYMPHOCYTES % (MANUAL) 42 % (13-45); MONOCYTES % (MANUAL) 3 % (3-13); NUCLEATED RED BLOOD CELLS 71 /100 WBC (0); SEGMENTED NEUTROPHILS % (MAN) 52 % (42-78); TOTAL CELLS COUNTED 100
[2018-03-10 04:37] LABS: POLYCHROMASIA 1+
[2018-03-10 04:40] LABS: ANISOCYTOSIS 3+; POIKILOCYTOSIS 3+
[2018-03-10 04:41] LABS: HYPOCHROMASIA 2+; SCHISTOCYTES 2+
[2018-03-10 04:42] LABS: PLATELET COMMENT ADEQUATE
[2018-03-10 04:45] LABS: WHITE BLOOD COUNT 7.7 10^3/uL (4.0-10.5)
--- NOTE | 2018-03-10 09:12 | EKG REPORT ---
SEVERITY:- NORMAL ECG - SINUS RHYTHM : Confirmed by: Jasmine Parks MD 10-Mar-2018 09:11:39
[2018-03-10] MEDS ORDERED: HYDROMORPHONE HCL INJ/PF 2 MG/ML AMPULE ONE (09:19)
[2018-03-10] MEDS: FENTANYL 75 MCG/HR PATCH.TD72 TD SCH (10:44)
--- NOTE | 2018-03-10 18:21 | PDOC H&P ---
History of Present Illness Admission Date/PCP: 03/10/18 06:09 ANDREW WILLIS History of Present Illness: MARINO POZO is a 22 year old male known to my practice who presented to the ED with complain on new onset worsening chest, lower back and bilateral knee joint pain. Patient claimed compliance with his pre-admission pain medication as well as his sickle cell disease medication management. He denied any acute onset fever, chills, coughing, nasal or sinus congestion, nausea, vomiting, diarrhea or abdominal pain, headache, dizziness, numbness, tingling, or focal weakness. He denied any genitourinary symptoms to suggest ongoing infection. 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 His morbidities include Asthma and SS hemoglobin Sickle Cell Disease. Past Medical History Pulmonary Medical History: Reports: Asthma, Pneumonia Psychiatric Medical History: Denies: Depression Hematology: Reports: Anemia, Sickle Cell Disease, Bleeding Tendencies Past Surgical History Past Surgical History: Reports: Cholecystectomy, Orthopedic Surgery - Fluid drained from right foot, Vascular Surgery - Port placement Social History Smoking Status: Never Smoker Frequency of Alcohol Use: None Hx Recreational Drug Use: No Drugs: None Hx Prescription Drug Abuse: No - Advance Directive Resuscitation Status: Full Code Family History Family History: Reviewed & Not Pertinent, Arthritis, DM, Hypertension, Other - Sickle cell trait both parents and asthma Parental Family History Reviewed: Yes Children Family History Reviewed: Yes Sibling(s) Family History Reviewed.: Yes Medication/Allergy Home Medications: Albuterol Sulfate [Proair HFA] 2 puff IH Q4H 03/10/18 Enoxaparin Sodium [Lovenox Inj 40 mg/0.4 ml Disp.syrin] 40 mg SQ DAILY 03/10/18 Fentanyl [Duragesic 75 Mcg/Hr Transdermal Patch] 75 mcg TOP Q3D 03/10/18 Folic Acid [Folvite 1 mg Tablet] 1 mg PO DAILY 03/10/18 Hydroxyurea [Hydrea 500 mg Capsule] 1,000 mg PO SUTUTHSA@1000 03/10/18 Hydroxyurea [Hydrea 500 mg Capsule] 1,500 mg PO MOWEFR@1000 03/10/18 Oxycodone HCl [Oxy-Ir 5 mg Tablet] 15 mg PO Q4HP PRN 03/10/18 Allergies/Adverse Reactions: Coconut * [Coconut] Allergy (Mild, Verified 03/02/18 19:45) transpore tape Allergy (Mild, Uncoded 03/02/18 19:45) Hives Review of Systems All systems: as per H Physical Exam Vital Signs: Temp Pulse Resp BP Pulse Ox 99.2 F 122 H 25 H 149/99 H 94 03/10/18 16:00 03/10/18 16:00 03/10/18 16:00 03/10/18 16:00 03/10/18 16:00 Intake & Output 03/09/18 03/10/18 03/11/18 06:59 06:59 06:59 Weight 60 kg General appearance: PRESENT: mild distress - due to pain Head exam: PRESENT: atraumatic, normocephalic Eye exam: PRESENT: conjunctiva pink, EOMI, PERRLA. ABSENT: scleral icterus Ear exam: PRESENT: normal external ear exam Mouth exam: PRESENT: moist, tongue midline Neck exam: PRESENT: full ROM. ABSENT: carotid bruit, JVD, lymphadenopathy, thyromegaly Respiratory exam: PRESENT: clear to auscultation ethan Cardiovascular exam: PRESENT: RRR, +S1, +S2, tachycardia Pulses: PRESENT: normal dorsalis pedis pul, +2 pedal pulses bilateral Vascular exam: PRESENT: normal capillary refill. ABSENT: pallor GI/Abdominal exam: PRESENT: normal bowel sounds, soft. ABSENT: distended, guarding, mass, organolmegaly, rebound, tenderness Rectal exam: PRESENT: deferred Extremities exam: PRESENT: tenderness - knee joints and lower lumbar spine region. ABSENT: pedal edema Musculoskeletal exam: PRESENT: normal inspection Neurological exam: PRESENT: alert, awake, oriented to person, oriented to place , oriented to time, oriented to situation, CN II-XII grossly intact. ABSENT: motor sensory deficit Psychiatric exam: PRESENT: appropriate affect, normal mood. ABSENT: homicidal ideation, suicidal ideation Skin exam: PRESENT: dry, intact, warm. ABSENT: cyanosis, rash Results Laboratory Results: I reviewed his lab results on [facility] and form significant part of my medical decision making. Assessment & Plan - Diagnosis (1) Sickle cell disease with crisis Is this a current diagnosis for this admission?: Yes Plan: See admitting attending physician orders. (2) Sinus tachycardia Is this a current diagnosis for this admission?: Yes Plan: See admitting attending physician orders. (3) Asthma Qualifiers: Asthma severity: mild Asthma complication type: uncomplicated Is this a current diagnosis for this admission?: Yes Plan: See admitting attending physician orders. - Time Time Spent: 50 to 70 Minutes Medications reviewed and adjusted accordingly: Yes Anticipated discharge: Home Within: Other - Inpatient Certification Based on my medical assessment, after consideration of the patient's comorbidities, presenting symptoms, or acuity I expect that the services needed warrant INPATIENT care.: Yes I certify that my determination is in accordance with my understanding of Medicare's requirements for reasonable and necessary INPATIENT services [42 CFR 412.3e].: Yes Medical Necessity: Need Close Monitoring Due to Risk of Patient Decompensation, Need For IV Fluids, Need For Continuous Telemetry Monitoring, Need for Pain Control, Risk of Complication if Not Cared For in Hospital Post Hospital Care: D/C Cord Maker Documentation - Plan Summary Plan Summary: See admitting attending physician orders.
[2018-03-10] MEDS ORDERED: ONDANSETRON HCL INJ/PF 4 MG/2 ML SDV IV PRN (18:22)
[2018-03-10] MEDS ORDERED: ALBUTEROL SULFATE HFA (90 MCG/PUFF) 8 GM MDI (1 MDI/ER DISP) IH SCH (18:30)
[2018-03-10] MEDS ORDERED: ENOXAPARIN SODIUM INJ 40 MG/0.4 ML DISP.SYRIN SUBCUT ONE (20:30)
[2018-03-10] MEDS: NORMAL SALINE 1000 ML 1,000 ML IV PRN (20:55)
[2018-03-10 21:53] LABS: HEMATOCRIT 20.8 % (37.9-51.0); MEAN CORPUSCULAR HEMOGLOBIN 35.3 pg (27.0-33.4); MEAN CORPUSCULAR HGB CONC 35.9 g/dL (32.0-36.0); MEAN CORPUSCULAR VOLUME 98 fl (80-97); PLATELET COUNT 185 10^3/uL (150-450); RED BLOOD COUNT 2.12 10^6/uL (4.35-5.55); RED CELL DISTRIBUTION WIDTH 28.8 % (11.5-14.0)
[2018-03-10 22:15] LABS: ABSOLUTE LYMPHOCYTES# (MANUAL) 6.3 10^3/uL (0.5-4.7); ABSOLUTE MONOCYTES # (MANUAL) 0.5 10^3/uL (0.1-1.4); ABSOLUTE NEUTROPHILS# (MANUAL) 8.9 10^3/uL (1.7-8.2); BASOPHILS % (MANUAL) 0 % (0-2); EOSINOPHILS % (MANUAL) 0 % (0-6); LYMPHOCYTES % (MANUAL) 40 % (13-45); MONOCYTES % (MANUAL) 3 % (3-13); NUCLEATED RED BLOOD CELLS 68 /100 WBC (0); SEGMENTED NEUTROPHILS % (MAN) 57 % (42-78); TOTAL CELLS COUNTED 100
[2018-03-10 22:27] LABS: ANISOCYTOSIS 4+; POLYCHROMASIA 1+; SICKLE RED CELLS 2+; TARGET CELLS SLIGHT
[2018-03-10 22:28] LABS: PLATELET COMMENT ADEQUATE; PLATELET GIANT PRESENT; PLATELET LARGE PRESENT
[2018-03-10 22:29] LABS: WHITE BLOOD COUNT 15.7 10^3/uL (4.0-10.5)
[2018-03-10 22:31] LABS: HEMOGLOBIN 7.5 g/dL (13.5-17.0)
[2018-03-11] MEDS: HYDROMORPHONE HCL INJ/PF 2 MG/ML AMPULE IV PRN ×3 (00:08→06:15)
[2018-03-11] MEDS: ALBUTEROL SULFATE HFA (90 MCG/PUFF) 200 PUFF/8.5 GM MDI IH SCH ×7 (00:25→21:57)
[2018-03-11 06:49] LABS: HEMATOCRIT 22.1 % (37.9-51.0); HEMOGLOBIN 8.1 g/dL (13.5-17.0); MEAN CORPUSCULAR HEMOGLOBIN 35.2 pg (27.0-33.4); MEAN CORPUSCULAR HGB CONC 36.5 g/dL (32.0-36.0); MEAN CORPUSCULAR VOLUME 97 fl (80-97); PLATELET COUNT 209 10^3/uL (150-450); RED BLOOD COUNT 2.29 10^6/uL (4.35-5.55); RED CELL DISTRIBUTION WIDTH 30.6 % (11.5-14.0)
[2018-03-11 07:23] LABS: ALANINE AMINOTRANSFERASE 26 U/L (21-72); ALBUMIN 4.1 g/dL (3.5-5.0); ALKALINE PHOSPHATASE 118 U/L (38-126); ANION GAP 10 (5-19); ASPARTATE AMINO TRANSFERASE 110 U/L (17-59); BILIRUBIN,DIRECT 0.7 mg/dL (0.0-0.4); BILIRUBIN,TOTAL 3.7 mg/dL (0.2-1.3); BLOOD UREA NITROGEN 12 mg/dL (7-20); CALCIUM 8.9 mg/dL (8.4-10.2); CARBON DIOXIDE 27 mmol/L (22-30); CHLORIDE 103 mmol/L (98-107); GLUCOSE 109 mg/dL (75-110); POTASSIUM 4.8 mmol/L (3.6-5.0); SODIUM 139.6 mmol/L (137-145); TOTAL PROTEIN 7.8 g/dL (6.3-8.2)
[2018-03-11 07:34] LABS: WHITE BLOOD COUNT 13.3 10^3/uL (4.0-10.5)
[2018-03-11 07:38] LABS: ABSOLUTE LYMPHOCYTES# (MANUAL) 3.2 10^3/uL (0.5-4.7); ABSOLUTE MONOCYTES # (MANUAL) 0.9 10^3/uL (0.1-1.4); ABSOLUTE NEUTROPHILS# (MANUAL) 9.2 10^3/uL (1.7-8.2); BASOPHILS % (MANUAL) 0 % (0-2); EOSINOPHILS % (MANUAL) 0 % (0-6); LYMPHOCYTES % (MANUAL) 24 % (13-45); MONOCYTES % (MANUAL) 7 % (3-13); NUCLEATED RED BLOOD CELLS 83 /100 WBC (0); SEGMENTED NEUTROPHILS % (MAN) 69 % (42-78); TOTAL CELLS COUNTED 100
[2018-03-11 07:40] LABS: POIKILOCYTOSIS 3+; SCHISTOCYTES SLIGHT; SICKLE RED CELLS 3+
[2018-03-11 07:41] LABS: ANISOCYTOSIS 4+; HYPOCHROMASIA 1+; POLYCHROMASIA 2+; TARGET CELLS SLIGHT
[2018-03-11 08:12] LABS: PLATELET COMMENT ADEQUATE
--- NOTE | 2018-03-11 08:19 | PDOC PROGRESS REPORT ---
Subjective Progress Note for:: 03/11/18 Subjective:: Patient continue to express significant pain. Reported agitation and tachycardia with Dilaudid. No fever or chills. Remain on supplemental oxygen via nasal cannula. No nausea, vomiting, or abdominal pain. 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 AND Physical Exam Vital Signs: Temp Pulse Resp BP Pulse Ox 99.8 F 122 H 20 145/86 H 91 L 03/11/18 04:00 03/11/18 04:00 03/11/18 04:00 03/11/18 04:00 03/11/18 04:00 Intake & Output 03/10/18 03/11/18 03/12/18 06:59 06:59 06:59 Intake Total 5640 Output Total 2575 Balance 3065 Weight 60 kg General appearance: PRESENT: mild distress - due to pain crisis from sickle ce; ll disease Head exam: PRESENT: atraumatic, normocephalic Eye exam: ABSENT: scleral icterus Mouth exam: PRESENT: moist Respiratory exam: PRESENT: clear to auscultation ethan Cardiovascular exam: PRESENT: RRR, +S1, +S2, tachycardia Vascular exam: PRESENT: normal capillary refill. ABSENT: pallor GI/Abdominal exam: PRESENT: normal bowel sounds, soft. ABSENT: distended, guarding, mass, organolmegaly, rebound, tenderness Extremities exam: ABSENT: pedal edema Musculoskeletal exam: PRESENT: normal inspection Neurological exam: PRESENT: alert, awake, oriented to person, oriented to place , oriented to time, oriented to situation, CN II-XII grossly intact. ABSENT: motor sensory deficit Psychiatric exam: PRESENT: appropriate affect, normal mood. ABSENT: homicidal ideation, suicidal ideation Skin exam: PRESENT: dry, intact, warm. ABSENT: cyanosis, rash Results Laboratory Results: 03/11/18 06:37 03/11/18 06:37 03/10/18 03/11/18 03/11/18 21:18 06:37 06:37 WBC 15.7 H D 13.3 H RBC 2.12 L 2.29 L Hgb 7.5 L D 8.1 L Hct 20.8 L 22.1 L MCV 98 H 97 MCH 35.3 H 35.2 H MCHC 35.9 36.5 H RDW 28.8 H 30.6 H Plt Count 185 209 Seg Neutrophils % Not Reportable Not Reportable Lymphocytes % Not Reportable Not Reportable Monocytes % Not Reportable Not Reportable Eosinophils % Not Reportable Not Reportable Basophils % Not Reportable Not Reportable Absolute Neutrophils Not Reportable Not Reportable Absolute Lymphocytes Not Reportable Not Reportable Absolute Monocytes Not Reportable Not Reportable Absolute Eosinophils Not Reportable Not Reportable Absolute Basophils Not Reportable Not Reportable Sodium 139.6 Potassium 4.8 Chloride 103 Carbon Dioxide 27 Anion Gap 10 BUN 12 Creatinine 0.64 Est GFR ( Amer) > 60 Est GFR (Non-Af Amer) > 60 Glucose 109 Calcium 8.9 Total Bilirubin 3.7 H AST 110 H ALT 26 Alkaline Phosphatase 118 Total Protein 7.8 Albumin 4.1 Assessment & Plan - Diagnosis (1) Sickle cell disease with crisis Is this a current diagnosis for this admission?: Yes Plan: See attending physician orders. D/C Dilaudid. Start on IV Morphine 2 mg q3 hours prn for pain management. (2) Sinus tachycardia Is this a current diagnosis for this admission?: Yes Plan: See attending physician orders. (3) Asthma Qualifiers: Asthma severity: mild Asthma complication type: uncomplicated Is this a current diagnosis for this admission?: Yes Plan: See attending physician orders. - Time Time Spent with patient: 25-34 minutes Medications reviewed and adjusted accordingly: Yes Anticipated discharge: Home Within: Other - Inpatient Certification Based on my medical assessment, after consideration of the patient's comorbidities, presenting symptoms, or acuity I expect that the services needed warrant INPATIENT care.: Yes I certify that my determination is in accordance with my understanding of Medicare's requirements for reasonable and necessary INPATIENT services [42 CFR 412.3e].: Yes Medical Necessity: Need Close Monitoring Due to Risk of Patient Decompensation, Need For IV Fluids, Need For Continuous Telemetry Monitoring, Need for Pain Control, Risk of Complication if Not Cared For in Hospital Post Hospital Care: D/C Silk Presser 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
[2018-03-11] MEDS: MORPHINE SULFATE 10 MG/ML INJ IV PRN ×3 (08:36→15:08)
[2018-03-11] MEDS ORDERED: (PENDING PHARMACY ID) (Enoxaparin Sodium 40 MG) SQ SCH (10:00)
[2018-03-11] MEDS: ENOXAPARIN SODIUM INJ 40 MG/0.4 ML DISP.SYRIN SUBCUT SCH (10:26)
[2018-03-11] MEDS: HYDROXYUREA 500 MG CAPSULE PO SCH (10:28)
[2018-03-11] MEDS: FOLIC ACID 1 MG TABLET PO SCH (10:29)
[2018-03-11] MEDS: MORPHINE SULFATE 10 MG/ML INJ IV SCH ×3 (19:30→23:55)
[2018-03-11] MEDS: NORMAL SALINE 1000 ML 1,000 ML IV PRN (20:16)
[2018-03-11] MEDS ORDERED: IBUPROFEN 800 MG TABLET ONE (20:56)
[2018-03-11] MEDS ORDERED: IBUPROFEN 400 MG TABLET PO ONE (21:30)
[2018-03-12] MEDS: ALBUTEROL SULFATE HFA (90 MCG/PUFF) 200 PUFF/8.5 GM MDI IH SCH ×6 (01:50→22:02)
[2018-03-12] MEDS: MORPHINE SULFATE 10 MG/ML INJ IV SCH ×12 (01:50→23:54)
[2018-03-12 05:19] LABS: HEMOGLOBIN 8.9 g/dL (13.5-17.0); MEAN CORPUSCULAR HEMOGLOBIN 35.4 pg (27.0-33.4); MEAN CORPUSCULAR HGB CONC 35.8 g/dL (32.0-36.0); MEAN CORPUSCULAR VOLUME 99 fl (80-97); PLATELET COUNT 213 10^3/uL (150-450); RED BLOOD COUNT 2.53 10^6/uL (4.35-5.55); RED CELL DISTRIBUTION WIDTH 28.2 % (11.5-14.0); WHITE BLOOD COUNT 10.8 10^3/uL (4.0-10.5)
[2018-03-12 05:22] LABS: ALANINE AMINOTRANSFERASE 28 U/L (21-72); ALBUMIN 3.9 g/dL (3.5-5.0); ALKALINE PHOSPHATASE 150 U/L (38-126); ANION GAP 9 (5-19); ASPARTATE AMINO TRANSFERASE 92 U/L (17-59); BILIRUBIN,DIRECT 0.7 mg/dL (0.0-0.4); BILIRUBIN,TOTAL 3.2 mg/dL (0.2-1.3); BLOOD UREA NITROGEN 8 mg/dL (7-20); CALCIUM 8.6 mg/dL (8.4-10.2); CARBON DIOXIDE 30 mmol/L (22-30); CHLORIDE 105 mmol/L (98-107); GLUCOSE 109 mg/dL (75-110); POTASSIUM 4.3 mmol/L (3.6-5.0); SODIUM 143.9 mmol/L (137-145); TOTAL PROTEIN 7.4 g/dL (6.3-8.2)
[2018-03-12] MEDS: NORMAL SALINE 1000 ML 1,000 ML IV PRN ×2 (05:33→15:39)
[2018-03-12 06:26] LABS: ABSOLUTE LYMPHOCYTES# (MANUAL) 2.7 10^3/uL (0.5-4.7); ABSOLUTE MONOCYTES # (MANUAL) 0.9 10^3/uL (0.1-1.4); ABSOLUTE NEUTROPHILS# (MANUAL) 7.2 10^3/uL (1.7-8.2); BASOPHILS % (MANUAL) 0 % (0-2); EOSINOPHILS % (MANUAL) 0 % (0-6); LYMPHOCYTES % (MANUAL) 25 % (13-45); MONOCYTES % (MANUAL) 8 % (3-13); NUCLEATED RED BLOOD CELLS 89 /100 WBC (0); SEGMENTED NEUTROPHILS % (MAN) 67 % (42-78); TOTAL CELLS COUNTED 100
[2018-03-12 06:27] LABS: ANISOCYTOSIS 3+; OVALOCYTES 1+; PLATELET COMMENT ADEQUATE; POIKILOCYTOSIS 3+; POLYCHROMASIA 1+; SICKLE RED CELLS 3+
--- NOTE | 2018-03-12 07:59 | PDOC PROGRESS REPORT ---
Subjective Progress Note for:: 03/12/18 Subjective:: Patient continue to express significant pain. Reported temperature elevation overnight which has improved with Ibuprofen and cooling blanket. No chills. Remain on supplemental oxygen via nasal cannula. No nausea, vomiting, or abdominal pain. 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 AND HEMOLYTIC CRISES Physical Exam Vital Signs: Temp Pulse Resp BP Pulse Ox 98.6 F 123 H 17 149/101 H 99 03/12/18 03:29 03/12/18 06:50 03/12/18 03:29 03/12/18 03:29 03/12/18 03:29 Intake & Output 03/11/18 03/12/18 03/13/18 06:59 06:59 06:59 Intake Total 5640 3949 Output Total 2575 2650 Balance 3065 1299 Weight 60 kg 59.7 kg Physical Exam: General appearance: PRESENT: mild distress - due to pain crisis from sickle ce; ll disease Head exam: PRESENT: atraumatic, normocephalic Eye exam: ABSENT: scleral icterus Mouth exam: PRESENT: moist Respiratory exam: PRESENT: clear to auscultation ethan Cardiovascular exam: PRESENT: RRR, +S1, +S2, tachycardia Vascular exam: PRESENT: normal capillary refill. ABSENT: pallor GI/Abdominal exam: PRESENT: normal bowel sounds, soft. ABSENT: distended, guarding, mass, organolmegaly, rebound, tenderness Extremities exam: ABSENT: pedal edema Musculoskeletal exam: PRESENT: normal inspection Neurological exam: PRESENT: alert, awake, oriented to person, oriented to place , oriented to time, oriented to situation, CN II-XII grossly intact. ABSENT: motor sensory deficit Psychiatric exam: PRESENT: appropriate affect, normal mood. ABSENT: homicidal ideation, suicidal ideation Skin exam: PRESENT: dry, intact, warm. ABSENT: cyanosis, rash Results Laboratory Results: 03/12/18 04:04 03/12/18 04:04 03/12/18 03/12/18 04:04 04:04 WBC 10.8 H RBC 2.53 L Hgb 8.9 L Hct 25.0 L MCV 99 H MCH 35.4 H MCHC 35.8 RDW 28.2 H Plt Count 213 Seg Neutrophils % Not Reportable Lymphocytes % Not Reportable Monocytes % Not Reportable Eosinophils % Not Reportable Basophils % Not Reportable Absolute Neutrophils Not Reportable Absolute Lymphocytes Not Reportable Absolute Monocytes Not Reportable Absolute Eosinophils Not Reportable Absolute Basophils Not Reportable Sodium 143.9 Potassium 4.3 Chloride 105 Carbon Dioxide 30 Anion Gap 9 BUN 8 Creatinine 0.53 Est GFR ( Amer) > 60 Est GFR (Non-Af Amer) > 60 Glucose 109 Calcium 8.6 Total Bilirubin 3.2 H AST 92 H ALT 28 Alkaline Phosphatase 150 H Total Protein 7.4 Albumin 3.9 Assessment & Plan - Diagnosis (1) Sickle cell disease with crisis Is this a current diagnosis for this admission?: Yes Plan: See attending physician orders. Maintain on IV Morphine 2 mg q 2 hours for pain management. Patient do remain on his preadmission Fentanyl patch therapy at 75mcg/hour q72 hours. (2) Sinus tachycardia Is this a current diagnosis for this admission?: Yes Plan: Continue IV hydration support. See attending physician orders. (3) Asthma Qualifiers: Asthma severity: mild Asthma complication type: uncomplicated Is this a current diagnosis for this admission?: Yes Plan: Continue current medication management. See attending physician orders. - Time Time Spent with patient: 25-34 minutes Medications reviewed and adjusted accordingly: Yes Anticipated discharge: Home Within: Other - Inpatient Certification Based on my medical assessment, after consideration of the patient's comorbidities, presenting symptoms, or acuity I expect that the services needed warrant INPATIENT care.: Yes I certify that my determination is in accordance with my understanding of Medicare's requirements for reasonable and necessary INPATIENT services [42 CFR 412.3e].: Yes Medical Necessity: Need Close Monitoring Due to Risk of Patient Decompensation, Need For IV Fluids, Need For Continuous Telemetry Monitoring, Need for Pain Control, Risk of Complication if Not Cared For in Hospital Post Hospital Care: D/C Football Coach 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
[2018-03-12] MEDS: FOLIC ACID 1 MG TABLET PO SCH (09:17)
[2018-03-12] MEDS: ENOXAPARIN SODIUM INJ 40 MG/0.4 ML DISP.SYRIN SUBCUT SCH (09:17)
[2018-03-12] MEDS: HYDROXYUREA 500 MG CAPSULE PO SCH (09:17)
[2018-03-12] MEDS ORDERED: IBUPROFEN 600 MG TABLET PO ONE (15:30)
[2018-03-13] MEDS: NORMAL SALINE 1000 ML 1,000 ML IV PRN ×3 (00:48→23:48)
[2018-03-13] MEDS: MORPHINE SULFATE 10 MG/ML INJ IV SCH ×12 (02:10→23:37)
[2018-03-13] MEDS: ALBUTEROL SULFATE HFA (90 MCG/PUFF) 200 PUFF/8.5 GM MDI IH SCH ×6 (02:11→22:03)
[2018-03-13 06:27] LABS: ALANINE AMINOTRANSFERASE 26 U/L (21-72); ALBUMIN 3.5 g/dL (3.5-5.0); ALKALINE PHOSPHATASE 150 U/L (38-126); ANION GAP 8 (5-19); ASPARTATE AMINO TRANSFERASE 63 U/L (17-59); BILIRUBIN,DIRECT 0.6 mg/dL (0.0-0.4); BILIRUBIN,TOTAL 2.7 mg/dL (0.2-1.3); BLOOD UREA NITROGEN 6 mg/dL (7-20); CALCIUM 8.5 mg/dL (8.4-10.2); CARBON DIOXIDE 29 mmol/L (22-30); CHLORIDE 102 mmol/L (98-107); GLUCOSE 125 mg/dL (75-110); POTASSIUM 4.2 mmol/L (3.6-5.0); SODIUM 139.3 mmol/L (137-145); TOTAL PROTEIN 7.1 g/dL (6.3-8.2)
[2018-03-13 06:50] LABS: HEMATOCRIT 24.4 % (37.9-51.0); HEMOGLOBIN 8.6 g/dL (13.5-17.0); MEAN CORPUSCULAR HEMOGLOBIN 34.7 pg (27.0-33.4); MEAN CORPUSCULAR HGB CONC 35.2 g/dL (32.0-36.0); MEAN CORPUSCULAR VOLUME 99 fl (80-97); PLATELET COUNT 233 10^3/uL (150-450); RED BLOOD COUNT 2.47 10^6/uL (4.35-5.55); RED CELL DISTRIBUTION WIDTH 25.2 % (11.5-14.0); WHITE BLOOD COUNT 10.3 10^3/uL (4.0-10.5)
[2018-03-13 07:30] LABS: ABSOLUTE LYMPHOCYTES# (MANUAL) 1.1 10^3/uL (0.5-4.7); ABSOLUTE MONOCYTES # (MANUAL) 1.5 10^3/uL (0.1-1.4); ABSOLUTE NEUTROPHILS# (MANUAL) 7.6 10^3/uL (1.7-8.2); BASOPHILS % (MANUAL) 0 % (0-2); EOSINOPHILS % (MANUAL) 0 % (0-6); LYMPHOCYTES % (MANUAL) 11 % (13-45); MONOCYTES % (MANUAL) 15 % (3-13); NUCLEATED RED BLOOD CELLS 48 /100 WBC (0); SEGMENTED NEUTROPHILS % (MAN) 74 % (42-78); TOTAL CELLS COUNTED 100
[2018-03-13 07:31] LABS: ANISOCYTOSIS 3+; POLYCHROMASIA SLIGHT
[2018-03-13 07:32] LABS: HOWELL-JOLLY BODIES PRESENT; PLATELET COMMENT ADEQUATE; SICKLE RED CELLS 2+; TARGET CELLS 1+
--- NOTE | 2018-03-13 07:54 | PDOC PROGRESS REPORT ---
Subjective Progress Note for:: 03/13/18 Subjective:: Patient reported chest pain this morning. There is recurrent fever with temperature of 100.5F this morning. No chills. Remain on supplemental oxygen via nasal cannula. No nausea, vomiting, or abdominal pain. 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 AND Physical Exam Vital Signs: Temp Pulse Resp BP Pulse Ox 100.6 F H 122 H 18 159/105 H 99 03/13/18 07:28 03/13/18 07:28 03/13/18 07:28 03/13/18 07:28 03/13/18 07:28 Intake & Output 03/12/18 03/13/18 03/14/18 06:59 06:59 06:59 Intake Total 3949 5741 Output Total 2650 3625 Balance 1299 2116 Weight 59.7 kg 62.3 kg Physical Exam: General appearance: PRESENT: mild distress - due to pain crisis from sickle ce; ll disease Head exam: PRESENT: atraumatic, normocephalic Eye exam: ABSENT: scleral icterus Mouth exam: PRESENT: moist Respiratory exam: PRESENT: clear to auscultation ethan Cardiovascular exam: PRESENT: RRR, +S1, +S2, tachycardia Vascular exam: PRESENT: normal capillary refill. ABSENT: pallor GI/Abdominal exam: PRESENT: normal bowel sounds, soft. ABSENT: distended, guarding, mass, organomegaly, rebound, tenderness Extremities exam: ABSENT: pedal edema Musculoskeletal exam: PRESENT: normal inspection Neurological exam: PRESENT: alert, awake, oriented to person, oriented to place , oriented to time, oriented to situation, CN II-XII grossly intact. ABSENT: motor sensory deficit Psychiatric exam: PRESENT: appropriate affect, normal mood. ABSENT: homicidal ideation, suicidal ideation Skin exam: PRESENT: dry, intact, warm. ABSENT: cyanosis, rash Results Laboratory Results: 03/13/18 05:23 03/13/18 05:23 03/13/18 03/13/18 05:23 05:23 WBC 10.3 RBC 2.47 L Hgb 8.6 L Hct 24.4 L MCV 99 H MCH 34.7 H MCHC 35.2 RDW 25.2 H Plt Count 233 Seg Neutrophils % Not Reportable Lymphocytes % Not Reportable Monocytes % Not Reportable Eosinophils % Not Reportable Basophils % Not Reportable Absolute Neutrophils Not Reportable Absolute Lymphocytes Not Reportable Absolute Monocytes Not Reportable Absolute Eosinophils Not Reportable Absolute Basophils Not Reportable Sodium 139.3 Potassium 4.2 Chloride 102 Carbon Dioxide 29 Anion Gap 8 BUN 6 L Creatinine 0.48 L Est GFR ( Amer) > 60 Est GFR (Non-Af Amer) > 60 Glucose 125 H Calcium 8.5 Total Bilirubin 2.7 H AST 63 H ALT 26 Alkaline Phosphatase 150 H Total Protein 7.1 Albumin 3.5 Assessment & Plan - Diagnosis (1) Sickle cell disease with crisis Is this a current diagnosis for this admission?: Yes Plan: See attending physician orders. Continue current medication management. Repeat chest X ray PA and Lateral views for further evaluation of his new chest pain report. (2) Sinus tachycardia Is this a current diagnosis for this admission?: Yes Plan: Maintain on IV hydration support. See attending physician orders. (3) Asthma Qualifiers: Asthma severity: mild Asthma complication type: uncomplicated Is this a current diagnosis for this admission?: Yes Plan: Maintain on current medication management. See attending physician orders. - Time Time Spent with patient: 25-34 minutes Medications reviewed and adjusted accordingly: Yes Anticipated discharge: Home Within: Other - Inpatient Certification Based on my medical assessment, after consideration of the patient's comorbidities, presenting symptoms, or acuity I expect that the services needed warrant INPATIENT care.: Yes I certify that my determination is in accordance with my understanding of Medicare's requirements for reasonable and necessary INPATIENT services [42 CFR 412.3e].: Yes Medical Necessity: Need Close Monitoring Due to Risk of Patient Decompensation, Need For IV Fluids, Need For Continuous Telemetry Monitoring, Need for Pain Control, Risk of Complication if Not Cared For in Hospital Post Hospital Care: D/C Direct Selling Counselor 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
--- NOTE | 2018-03-13 09:27 | RADIOLOGY REPORT (SQ) ---
EXAM DESCRIPTION: CHEST 2 VIEWS COMPLETED DATE/TIME: 03/13/2018 8:58 am REASON FOR STUDY: SS Hemoglobin Sickle cell Disease; Chest Pain COMPARISON: Two-view chest 03/10/2018, 03/02/2018, CT angio chest 02/21/2018 CT abdomen pelvis 11/26/2015 EXAM PARAMETERS: NUMBER OF VIEWS: two views TECHNIQUE: Digital Frontal and Lateral radiographic views of the chest acquired. RADIATION DOSE: NA LIMITATIONS: none FINDINGS: LUNGS AND PLEURA: Chronic scarring in the posteromedial right and left lung bases. No fluffy alveolar infiltrates worrisome for edema or pneumonia. No pleural effusion. No pneumothor ax. MEDIASTINUM AND HILAR STRUCTURES: No masses or contour abnormalities. HEART AND VASCULAR STRUCTURES: Heart normal size. No evidence for failure. BONES: Diffuse sclerosis and characteristic biconcave vertebral body endplate changes from sickle phani l HARDWARE: None in the chest. OTHER: No other significant finding. IMPRESSION: No acute findings. Chronic scarring in the medial right and left lung bases TECHNICAL DOCUMENTATION: JOB ID: [id number] [employer]- All Rights Reserved Reading location - IP/workstation name: [facility]
[2018-03-13] MEDS: IBUPROFEN 600 MG TABLET PO PRN ×2 (10:18→23:36)
[2018-03-13] MEDS: HYDROXYUREA 500 MG CAPSULE PO SCH (10:20)
[2018-03-13] MEDS: FENTANYL 75 MCG/HR PATCH.TD72 TD SCH (10:21)
[2018-03-13] MEDS: FOLIC ACID 1 MG TABLET PO SCH (10:24)
[2018-03-13] MEDS: ENOXAPARIN SODIUM INJ 40 MG/0.4 ML DISP.SYRIN SUBCUT SCH (10:29)
[2018-03-14] MEDS: ALBUTEROL SULFATE HFA (90 MCG/PUFF) 200 PUFF/8.5 GM MDI IH SCH ×6 (02:18→22:27)
[2018-03-14] MEDS: MORPHINE SULFATE 10 MG/ML INJ IV SCH ×11 (02:19→22:26)
[2018-03-14 06:01] LABS: HEMATOCRIT 20.4 % (37.9-51.0); MEAN CORPUSCULAR HGB CONC 35.6 g/dL (32.0-36.0); MEAN CORPUSCULAR VOLUME 98 fl (80-97); PLATELET COUNT 231 10^3/uL (150-450); RED BLOOD COUNT 2.07 10^6/uL (4.35-5.55); RED CELL DISTRIBUTION WIDTH 24.7 % (11.5-14.0); WHITE BLOOD COUNT 7.6 10^3/uL (4.0-10.5)
[2018-03-14 06:03] LABS: HEMOGLOBIN 7.2 g/dL (13.5-17.0)
[2018-03-14 06:15] LABS: ALANINE AMINOTRANSFERASE 27 U/L (21-72); ALBUMIN 3.1 g/dL (3.5-5.0); ALKALINE PHOSPHATASE 116 U/L (38-126); ANION GAP 8 (5-19); ASPARTATE AMINO TRANSFERASE 46 U/L (17-59); BILIRUBIN,DIRECT 0.5 mg/dL (0.0-0.4); BILIRUBIN,TOTAL 2.3 mg/dL (0.2-1.3); BLOOD UREA NITROGEN 9 mg/dL (7-20); CALCIUM 8.1 mg/dL (8.4-10.2); CARBON DIOXIDE 31 mmol/L (22-30); CHLORIDE 102 mmol/L (98-107); GLUCOSE 147 mg/dL (75-110); POTASSIUM 4.2 mmol/L (3.6-5.0); SODIUM 141.1 mmol/L (137-145); TOTAL PROTEIN 6.2 g/dL (6.3-8.2)
[2018-03-14 06:57] LABS: ABSOLUTE LYMPHOCYTES# (MANUAL) 1.4 10^3/uL (0.5-4.7); ABSOLUTE MONOCYTES # (MANUAL) 0.7 10^3/uL (0.1-1.4); ABSOLUTE NEUTROPHILS# (MANUAL) 5.3 10^3/uL (1.7-8.2); BASOPHILS % (MANUAL) 0 % (0-2); EOSINOPHILS % (MANUAL) 2 % (0-6); LYMPHOCYTES % (MANUAL) 19 % (13-45); MONOCYTES % (MANUAL) 9 % (3-13); NUCLEATED RED BLOOD CELLS 48 /100 WBC (0); SEGMENTED NEUTROPHILS % (MAN) 70 % (42-78); TOTAL CELLS COUNTED 100
[2018-03-14 06:58] LABS: PLATELET COMMENT ADEQUATE
[2018-03-14 07:01] LABS: HYPOCHROMASIA 2+; POIKILOCYTOSIS 2+; POLYCHROMASIA 1+; TARGET CELLS 1+
[2018-03-14 07:02] LABS: SICKLE RED CELLS SLIGHT
[2018-03-14] MEDS ORDERED: NORMAL SALINE 250 ML IV PRN ×2 (08:23)
[2018-03-14] MEDS: HYDROXYUREA 500 MG CAPSULE PO SCH (10:06)
[2018-03-14] MEDS: FOLIC ACID 1 MG TABLET PO SCH (10:06)
[2018-03-14] MEDS: ENOXAPARIN SODIUM INJ 40 MG/0.4 ML DISP.SYRIN SUBCUT SCH (10:06)
[2018-03-14] MEDS: NORMAL SALINE 1000 ML 1,000 ML IV PRN (10:55)
[2018-03-14] MEDS: IBUPROFEN 600 MG TABLET PO PRN (16:34)
--- NOTE | 2018-03-14 17:32 | PDOC PROGRESS REPORT ---
Subjective Progress Note for:: 03/14/18 Subjective:: Patient reported persistent multiple joints aches and pain. There is incident nasal bleeding. No chest pain or difficulty with breathing. No fever or chills. Remain on supplemental oxygen via nasal cannula. No nausea, vomiting, or abdominal pain. 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 AND Physical Exam Vital Signs: Temp Pulse Resp BP Pulse Ox 100.4 F 140 H 16 139/87 H 99 03/14/18 16:15 03/14/18 16:15 03/14/18 16:15 03/14/18 16:15 03/14/18 16:15 Intake & Output 03/13/18 03/14/18 03/15/18 06:59 06:59 06:59 Intake Total 5741 4458 772 Output Total 3625 3050 550 Balance 2116 1408 222 Weight 62.3 kg 63.9 kg Physical Exam: General appearance: PRESENT: mild distress - due to pain crisis from sickle ce; ll disease Head exam: PRESENT: atraumatic, normocephalic Eye exam: ABSENT: scleral icterus Mouth exam: PRESENT: moist Respiratory exam: PRESENT: clear to auscultation ethan Cardiovascular exam: PRESENT: RRR, +S1, +S2, tachycardia Vascular exam: PRESENT: normal capillary refill. ABSENT: pallor GI/Abdominal exam: PRESENT: normal bowel sounds, soft. ABSENT: distended, guarding, mass, organomegaly, rebound, tenderness Extremities exam: ABSENT: pedal edema Musculoskeletal exam: PRESENT: normal inspection Neurological exam: PRESENT: alert, awake, oriented to person, oriented to place , oriented to time, oriented to situation, CN II-XII grossly intact. ABSENT: motor sensory deficit Psychiatric exam: PRESENT: appropriate affect, normal mood. ABSENT: homicidal ideation, suicidal ideation Skin exam: PRESENT: dry, intact, warm. ABSENT: cyanosis, rash Results Laboratory Results: 03/14/18 05:48 03/14/18 05:48 03/14/18 03/14/18 03/14/18 05:48 05:48 09:06 WBC 7.6 RBC 2.07 L Hgb 7.2 L Hct 20.4 L MCV 98 H MCH 35.0 H MCHC 35.6 RDW 24.7 H Plt Count 231 Seg Neutrophils % Not Reportable Lymphocytes % Not Reportable Monocytes % Not Reportable Eosinophils % Not Reportable Basophils % Not Reportable Absolute Neutrophils Not Reportable Absolute Lymphocytes Not Reportable Absolute Monocytes Not Reportable Absolute Eosinophils Not Reportable Absolute Basophils Not Reportable Sodium 141.1 Potassium 4.2 Chloride 102 Carbon Dioxide 31 H Anion Gap 8 BUN 9 Creatinine 0.47 L Est GFR ( Amer) > 60 Est GFR (Non-Af Amer) > 60 Glucose 147 H Calcium 8.1 L Total Bilirubin 2.3 H AST 46 ALT 27 Alkaline Phosphatase 116 Total Protein 6.2 L Albumin 3.1 L Blood Type A POSITIVE Antibody Screen NEGATIVE Impressions: Chest X-Ray 03/13/18 00:00 IMPRESSION: No acute findings. Chronic scarring in the medial right and left lung bases Assessment & Plan - Diagnosis (1) Sickle cell disease with crisis Is this a current diagnosis for this admission?: Yes (2) Sinus tachycardia Is this a current diagnosis for this admission?: Yes (3) Asthma Qualifiers: Asthma severity: mild Asthma complication type: uncomplicated Is this a current diagnosis for this admission?: Yes - Time Time Spent with patient: 25-34 minutes Medications reviewed and adjusted accordingly: Yes Anticipated discharge: Home Within: Other - Inpatient Certification Based on my medical assessment, after consideration of the patient's comorbidities, presenting symptoms, or acuity I expect that the services needed warrant INPATIENT care.: Yes I certify that my determination is in accordance with my understanding of Medicare's requirements for reasonable and necessary INPATIENT services [42 CFR 412.3e].: Yes Medical Necessity: Need Close Monitoring Due to Risk of Patient Decompensation, Need For IV Fluids, Need For Continuous Telemetry Monitoring, Need for Pain Control, Risk of Complication if Not Cared For in Hospital Post Hospital Care: D/C Audit Clerk 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 Patient will be transfused 2 units PRBC for downward trend of his hemoglobin.
[2018-03-15] MEDS: MORPHINE SULFATE 10 MG/ML INJ IV SCH ×12 (00:14→22:00)
[2018-03-15 02:16] LABS: HEMATOCRIT 27.3 % (37.9-51.0); MEAN CORPUSCULAR HEMOGLOBIN 32.7 pg (27.0-33.4); MEAN CORPUSCULAR HGB CONC 35.2 g/dL (32.0-36.0); PLATELET COUNT 251 10^3/uL (150-450); RED BLOOD COUNT 2.94 10^6/uL (4.35-5.55); RED CELL DISTRIBUTION WIDTH 24.6 % (11.5-14.0)
[2018-03-15] MEDS: ALBUTEROL SULFATE HFA (90 MCG/PUFF) 200 PUFF/8.5 GM MDI IH SCH ×6 (02:17→21:31)
[2018-03-15 02:25] LABS: HEMOGLOBIN 9.7 g/dL (13.5-17.0); MEAN CORPUSCULAR VOLUME 93 fl (80-97)
[2018-03-15 02:41] LABS: WHITE BLOOD COUNT 5.7 10^3/uL (4.0-10.5)
[2018-03-15] MEDS: NORMAL SALINE 1000 ML 1,000 ML IV PRN ×2 (04:29→14:41)
[2018-03-15] MEDS: ENOXAPARIN SODIUM INJ 40 MG/0.4 ML DISP.SYRIN SUBCUT SCH (10:22)
[2018-03-15] MEDS: FOLIC ACID 1 MG TABLET PO SCH (10:23)
[2018-03-15] MEDS: HYDROXYUREA 500 MG CAPSULE PO SCH (10:23)
--- NOTE | 2018-03-15 14:26 | PDOC PROGRESS REPORT ---
Subjective Progress Note for:: 03/15/18 Subjective:: Patient was seen by the bedside he has swelling of the left calf, start venous Doppler negative for DVT, admitted for sickle cell crisis 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 AND Physical Exam Vital Signs: Temp Pulse Resp BP Pulse Ox 98.6 F 102 H 20 130/93 H 100 03/15/18 03:37 03/15/18 14:00 03/15/18 03:37 03/15/18 03:37 03/15/18 03:37 Intake & Output 03/14/18 03/15/18 03/16/18 06:59 06:59 06:59 Intake Total 4458 4262 Output Total 3050 2450 Balance 1408 1812 Weight 63.9 kg 63.2 kg General appearance: PRESENT: no acute distress Eye exam: PRESENT: PERRLA Respiratory exam: PRESENT: clear to auscultation ethan Cardiovascular exam: PRESENT: +S1, +S2 GI/Abdominal exam: PRESENT: soft Neurological exam: PRESENT: alert Results Laboratory Results: 03/15/18 01:50 03/14/18 05:48 03/14/18 03/15/18 09:06 01:50 WBC 5.7 RBC 2.94 L Hgb 9.7 L D Hct 27.3 L MCV 93 D MCH 32.7 MCHC 35.2 RDW 24.6 H Plt Count 251 Blood Type A POSITIVE Antibody Screen NEGATIVE Impressions: Chest X-Ray 03/13/18 00:00 IMPRESSION: No acute findings. Chronic scarring in the medial right and left lung bases Assessment & Plan - Diagnosis (1) Sickle cell crisis Is this a current diagnosis for this admission?: Yes (2) Sinus tachycardia Is this a current diagnosis for this admission?: Yes (3) Tachycardia Is this a current diagnosis for this admission?: Yes
[2018-03-16] MEDS: MORPHINE SULFATE 10 MG/ML INJ IV SCH ×12 (00:01→22:03)
[2018-03-16] MEDS: NORMAL SALINE 1000 ML 1,000 ML IV PRN ×3 (00:04→20:04)
[2018-03-16] MEDS: ALBUTEROL SULFATE HFA (90 MCG/PUFF) 200 PUFF/8.5 GM MDI IH SCH ×6 (02:14→22:03)
[2018-03-16] MEDS: ENOXAPARIN SODIUM INJ 40 MG/0.4 ML DISP.SYRIN SUBCUT SCH (10:22)
[2018-03-16] MEDS: FENTANYL 75 MCG/HR PATCH.TD72 TD SCH (10:22)
[2018-03-16] MEDS: FOLIC ACID 1 MG TABLET PO SCH (10:23)
[2018-03-16] MEDS: HYDROXYUREA 500 MG CAPSULE PO SCH (10:23)
--- NOTE | 2018-03-16 12:39 | XCELERA REPORT ---
[address] [address] Lower Extremity Venous Evaluation Name: MARINO POZO Age: 22 yrs Gender: Male : 1995 Patient Status: Inpatient Patient Location: [address] [place] [address] Study Date: 03/15/2018 01:22 PM Procedure: Color flow and duplex imaging of the veins of the left lower extremity as well as the right Common Femoral vein. Reason For Study: leg swelling and pain Ordering Physician: TESS FARRELL Performed By: Simone Lara Right Sided Venous Evaluation The right common femoral vein is fully compressible. Spontaneous and phasic flow is present in the right common femoral vein. Left Sided Venous Evaluation Normal vessel filling wall to wall, compression and augmentation as well as Colour flow down to the infrageniculate veins. Interpretation Summary No duplex evidence of DVT or obstruction in the left lower extremity nor in the right Common Femoral vein. : TESS FARRELL > Zach Weinstein
--- NOTE | 2018-03-16 15:20 | PDOC PROGRESS REPORT ---
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 AND Physical Exam Vital Signs: Temp Pulse Resp BP Pulse Ox 99.1 F 98 18 148/98 H 100 03/16/18 08:05 03/16/18 13:53 03/16/18 08:05 03/16/18 08:05 03/16/18 08:05 Intake & Output 03/15/18 03/16/18 03/17/18 06:59 06:59 06:59 Intake Total 4262 4596 900 Output Total 2450 4625 700 Balance 1812 -29 200 Weight 63.2 kg 63.3 kg General appearance: PRESENT: no acute distress Eye exam: PRESENT: PERRLA Respiratory exam: PRESENT: clear to auscultation ethan Cardiovascular exam: PRESENT: +S1, +S2 GI/Abdominal exam: PRESENT: soft Neurological exam: PRESENT: alert Results Laboratory Results: 03/15/18 01:50 03/14/18 05:48 Impressions: Chest X-Ray 03/13/18 00:00 IMPRESSION: No acute findings. Chronic scarring in the medial right and left lung bases Assessment & Plan - Diagnosis (1) Sickle cell crisis Is this a current diagnosis for this admission?: Yes (2) Sinus tachycardia Is this a current diagnosis for this admission?: Yes (3) Tachycardia Is this a current diagnosis for this admission?: Yes
[2018-03-16] MEDS: IBUPROFEN 600 MG TABLET PO PRN (22:08)
[2018-03-17] MEDS: MORPHINE SULFATE 10 MG/ML INJ IV SCH ×9 (00:04→16:34)
[2018-03-17] MEDS: ALBUTEROL SULFATE HFA (90 MCG/PUFF) 200 PUFF/8.5 GM MDI IH SCH ×6 (02:05→22:03)
[2018-03-17] MEDS: NORMAL SALINE 1000 ML 1,000 ML IV PRN ×2 (06:07→16:37)
[2018-03-17] MEDS: ENOXAPARIN SODIUM INJ 40 MG/0.4 ML DISP.SYRIN SUBCUT SCH (10:22)
[2018-03-17] MEDS: HYDROXYUREA 500 MG CAPSULE PO SCH (10:22)
[2018-03-17] MEDS: FOLIC ACID 1 MG TABLET PO SCH (10:22)
--- NOTE | 2018-03-17 17:53 | PDOC PROGRESS REPORT ---
Subjective Progress Note for:: 03/17/18 Subjective:: Patient denied chest pain or difficulty with breathing. No fever or chills. Remain on supplemental oxygen via nasal cannula. No nausea, vomiting, or abdominal pain. His multiple joints aches and pain fairly controlled. He was able to ambulate and participate in self care. There is report of possible bone marrow transplant donor through [facility] as per his mother this evening. 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 AND Physical Exam Vital Signs: Temp Pulse Resp BP Pulse Ox 98.3 F 101 H 14 114/86 H 95 03/17/18 15:10 03/17/18 15:10 03/17/18 15:10 03/17/18 15:10 03/17/18 15:10 Intake & Output 03/16/18 03/17/18 03/18/18 06:59 06:59 06:59 Intake Total 4596 5093 900 Output Total 4625 2600 1000 Balance -29 2493 -100 Weight 63.3 kg 63.7 kg Physical Exam: General appearance: PRESENT: No acute distress Head exam: PRESENT: atraumatic, normocephalic Eye exam: ABSENT: scleral icterus Mouth exam: PRESENT: moist Respiratory exam: PRESENT: clear to auscultation ethan Cardiovascular exam: PRESENT: RRR, +S1, +S2, tachycardia Vascular exam: PRESENT: normal capillary refill. ABSENT: pallor GI/Abdominal exam: PRESENT: normal bowel sounds, soft. ABSENT: distended, guarding, mass, organomegaly, rebound, tenderness Extremities exam: ABSENT: pedal edema Musculoskeletal exam: PRESENT: normal inspection Neurological exam: PRESENT: alert, awake, oriented to person, oriented to place , oriented to time, oriented to situation, CN II-XII grossly intact. ABSENT: motor sensory deficit Psychiatric exam: PRESENT: appropriate affect, normal mood. ABSENT: homicidal ideation, suicidal ideation Skin exam: PRESENT: dry, intact, warm. ABSENT: cyanosis, rash Results Laboratory Results: 03/15/18 01:50 03/14/18 05:48 Impressions: Chest X-Ray 03/13/18 00:00 IMPRESSION: No acute findings. Chronic scarring in the medial right and left lung bases Assessment & Plan - Diagnosis (1) Sickle cell disease with crisis Is this a current diagnosis for this admission?: Yes Plan: See attending physician orders. D/C IV Morphine. Restart on preadmission pain management regimen. (2) Sinus tachycardia Is this a current diagnosis for this admission?: Yes Plan: Maintain on IV hydration support. See attending physician orders. (3) Asthma Qualifiers: Asthma severity: mild Asthma complication type: uncomplicated Is this a current diagnosis for this admission?: Yes Plan: Maintain on current medication management. See attending physician orders. - Time Time Spent with patient: 25-34 minutes Medications reviewed and adjusted accordingly: Yes Anticipated discharge: Home Within: within 24 hours - Inpatient Certification Based on my medical assessment, after consideration of the patient's comorbidities, presenting symptoms, or acuity I expect that the services needed warrant INPATIENT care.: Yes I certify that my determination is in accordance with my understanding of Medicare's requirements for reasonable and necessary INPATIENT services [42 CFR 412.3e].: Yes Medical Necessity: Need Close Monitoring Due to Risk of Patient Decompensation, Need For IV Fluids, Need For Continuous Telemetry Monitoring, Need for Pain Control, Risk of Complication if Not Cared For in Hospital Post Hospital Care: D/C Super[employer] Manager 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
[2018-03-17] MEDS ORDERED: FENTANYL 75 MCG/HR PATCH.TD72 TOP SCH (18:00)
[2018-03-17] MEDS: OXYCODONE HCL IR 5 MG TABLET PO PRN ×2 (19:16→23:39)
[2018-03-18] MEDS: ALBUTEROL SULFATE HFA (90 MCG/PUFF) 200 PUFF/8.5 GM MDI IH SCH ×5 (01:41→17:11)
[2018-03-18] MEDS: NORMAL SALINE 1000 ML 1,000 ML IV PRN ×2 (01:46→11:42)
[2018-03-18] MEDS: OXYCODONE HCL IR 5 MG TABLET PO PRN ×4 (03:34→15:45)
[2018-03-18] MEDS: HYDROXYUREA 500 MG CAPSULE PO SCH (09:40)
[2018-03-18] MEDS: FOLIC ACID 1 MG TABLET PO SCH (09:41)
[2018-03-18] MEDS: ENOXAPARIN SODIUM INJ 40 MG/0.4 ML DISP.SYRIN SUBCUT SCH (09:41)
[2018-03-18 18:42] VITALS: BP 139/87
--- NOTE | 2018-03-18 18:45 | PDOC DISCHARGE SUMMARY ---
General - Admit/Disc Date/PCP Admission Date/Primary Care Provider: 03/10/18 06:09 ANDREW WILLIS Discharge Date: 03/18/18 - Discharge Diagnosis (1) Sickle cell disease with crisis Is this a current diagnosis for this admission?: Yes Summary: Improved recurrent pain and hemolytic crises. Continue on preadmission medications. Stable for discharge home today. (2) Sinus tachycardia Is this a current diagnosis for this admission?: Yes Summary: Improved and related to his acute pain and hemolytic crises. (3) Asthma Is this a current diagnosis for this admission?: Yes Summary: Continue on preadmission medications. - Additional Information Resuscitation Status: Full Code Discharge Diet: Regular Discharge Activity: Activity As Tolerated Home Medications: Albuterol Sulfate [Proair HFA] 2 puff IH Q4H 03/10/18 Enoxaparin Sodium [Lovenox Inj 40 mg/0.4 ml Disp.syrin] 40 mg SQ DAILY 03/10/18 Fentanyl [Duragesic 75 Mcg/Hr Transdermal Patch] 75 mcg TOP Q3D 03/10/18 Folic Acid [Folvite 1 mg Tablet] 1 mg PO DAILY 03/10/18 Hydroxyurea [Hydrea 500 mg Capsule] 1,000 mg PO SUTUTHSA@1000 03/10/18 Hydroxyurea [Hydrea 500 mg Capsule] 1,500 mg PO MOWEFR@1000 03/10/18 Oxycodone HCl [Oxy-Ir 5 mg Tablet] 15 mg PO Q4HP PRN 03/10/18 History of Present Illness History of Present Illness: MARINO POZO is a 22 year old male known to my practice who presented to the ED with complain on new onset worsening chest, lower back and bilateral knee joint pain. Patient claimed compliance with his pre-admission pain medication as well as his sickle cell disease medication management. He denied any acute onset fever, chills, coughing, nasal or sinus congestion, nausea, vomiting, diarrhea or abdominal pain, headache, dizziness, numbness, tingling, or focal weakness. He denied any genitourinary symptoms to suggest ongoing infection. 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 His morbidities include Asthma and SS hemoglobin Sickle Cell Disease. Hospital Course Hospital Course: He was managed with IV opiate including Dilaudid and eventually Morphine sulfate. He remain on Fentanyl patch at 75 mcg / hr q 72 hours while on admission. He was supported with IV Normal Saline infusion as required. He was eventually transfused 2 units of PRBC due to worsening hemoglobin secondary to hemolytic crisis. His pain was eventually adequately controlled and with improvement he was able to participate in self care. He was transition to oral opiate pain management regimen at preadmission level and he has remain fairly stable. He is agreeable to discharge home today. He will follow up in the office as instructed upon discharge. He will follow up at [facility] as arranged regarding bone marrow transplant in the management o his SS Hemoglobin sickle Cell disease. Physical Exam Vital Signs: Temp Pulse Resp BP Pulse Ox 98.2 F 107 H 16 127/81 H 98 03/18/18 11:37 03/18/18 14:00 03/18/18 07:59 03/18/18 11:37 03/18/18 11:37 Intake & Output 03/17/18 03/18/18 03/19/18 06:59 06:59 06:59 Intake Total 5093 4378 2275 Output Total 2600 3650 2160 Balance 2493 728 115 Weight 63.7 kg 61.1 kg Physical Exam: General appearance: PRESENT: No acute distress Head exam: PRESENT: atraumatic, normocephalic Eye exam: ABSENT: scleral icterus Mouth exam: PRESENT: moist Respiratory exam: PRESENT: clear to auscultation ethan Cardiovascular exam: PRESENT: RRR, +S1, +S2, tachycardia Vascular exam: PRESENT: normal capillary refill. ABSENT: pallor GI/Abdominal exam: PRESENT: normal bowel sounds, soft. ABSENT: distended, guarding, mass, organomegaly, rebound, tenderness Extremities exam: ABSENT: pedal edema Musculoskeletal exam: PRESENT: normal inspection Neurological exam: PRESENT: alert, awake, oriented to person, oriented to place , oriented to time, oriented to situation, CN II-XII grossly intact. ABSENT: motor sensory deficit Psychiatric exam: PRESENT: appropriate affect, normal mood. ABSENT: homicidal ideation, suicidal ideation Skin exam: PRESENT: dry, intact, warm. ABSENT: cyanosis, rash Results Laboratory Results: 03/15/18 01:50 03/14/18 05:48 Impressions: Chest X-Ray 07/12/18 00:00 IMPRESSION: No acute findings. Chronic scarring in the medial right and left lung bases Qualifiers - * PATIENT BEING DISCHARGED WITH ANY OF THE FOLLOWING DIAGNOSIS: No Plan Discharge Plan: D/C home today. Follow up with me in the office as instructed upon discharge. Patient will followup at [facility] as instructed with bone marrow transplant team.
[2018-03-19] MEDS ORDERED: FENTANYL 75 MCG/HR PATCH.TD72 TD SCH (10:00)
== END 2018-03-18 19:00 | disposition home or self-care (01) | DRG 812 ==
LOC: ER 03:04 → EH 06:09 → 4N 07:02 → 3S 03-11 19:45
PROVIDERS: ADMIT Internal Medicine Geriatric Medicine; ATTEND Internal Medicine Geriatric Medicine
PROC: 30233N1 Transfusion of Nonautologous Red Blood Cells into Peripheral Vein, Percutaneous Approach (ICD-10-PCS; principal; 2018-03-14)
DX: D57.00 Hb-SS disease with crisis, unspecified (principal); F11.20 Opioid dependence, uncomplicated; J45.20 Mild intermittent asthma, uncomplicated; R00.0 Tachycardia, unspecified; G89.29 Other chronic pain; M54.5 Low back pain; M25.562 Pain in left knee; M25.561 Pain in right knee; Z79.02 Long term (current) use of antithrombotics/antiplatelets; Z79.51 Long term (current) use of inhaled steroids; Z79.899 Other long term (current) drug therapy
CPT/HCPCS: 36415; 36430; 71046; 80053; 85025; 85027; 85045; 86850; 86900; 86901; 86902; 86920; 86922; 93005; 93010; 93971; 99285; A9270-GY; J1170; J1200; J1650; J2270; J3490; J7030; P9016; S0119

== ENCOUNTER 2018-04-04 23:40 | Emergency (ER) | payer MEDICAID ==
[2018-04-05] MEDS ORDERED: HYDROMORPHONE HCL INJ/PF 2 MG/ML AMPULE IV ONE ×3 (00:31→04:40)
[2018-04-05] MEDS ORDERED: ONDANSETRON HCL INJ/PF 4 MG/2 ML SDV IV ONE (00:32)
[2018-04-05] MEDS ORDERED: DIPHENHYDRAMINE HCL 50 MG/ML VIAL IV ONE ×2 (00:32→03:35)
--- NOTE | 2018-04-05 00:34 | ER Document Report ---
ED General - General Chief Complaint: Sickle Cell Crisis Stated Complaint: KNEE/ARM PAIN Time Seen by Provider: 04/05/18 00:28 Notes: Patient is a pleasant 22-year-old male with history of sickle cell disease who is well-known to ER who presents with complaint of bilateral knee pain. Says pain started today. Pain is very typical of his sickle cell exacerbations. He takes oxycodone 50 mg at home. He says has not been controlling his pain today and therefore is come to the ER. No chest pain. No shortness of breath. No cough or congestion. No fevers. No abdominal pain. He does have previous history of acute chest syndrome. He still has his gallbladder and spleen. No other complaints at this time. TRAVEL OUTSIDE OF THE [place] IN LAST 30 DAYS: No - Related Data Allergies/Adverse Reactions: Coconut * [Coconut] Allergy (Mild, Verified 03/02/18 19:45) transpore tape Allergy (Mild, Uncoded 03/02/18 19:45) Hives Past Medical History - Social History Smoking Status: Never Smoker Frequency of alcohol use: None Drug Abuse: None Family History: Reviewed & Not Pertinent, Arthritis, DM, Hypertension, Other - Sickle cell trait both parents and asthma Pulmonary Medical History: Reports: Hx Asthma, Hx Pneumonia Renal/ Medical History: Denies: Hx Peritoneal Dialysis Psychiatric Medical History: Denies: Hx Depression Past Surgical History: Reports: Hx Abdominal Surgery - Gallstones removal, Hx Cholecystectomy, Hx Orthopedic Surgery - Fluid drained from right foot, Hx Vascular Surgery - Port placement - Immunizations Immunizations up to date: Yes Hx Diphtheria, Pertussis, Tetanus Vaccination: Yes Hx Pneumococcal Vaccination: 01/15/13 Review of Systems - Review of Systems Notes: My Normal Review Basic REVIEW OF SYSTEMS: CONSTITUTIONAL : Denies fever, chills, or sweats. Denies recent illness. EENT: Denies eye, ear, throat, or mouth pain or symptoms. Denies nasal or sinus congestion. CARDIOVASCULAR: Denies chest pain. RESPIRATORY: Denies cough, cold, or chest congestion. Denies shortness of breath, difficulty breathing, or wheezing. GASTROINTESTINAL: Denies abdominal pain. Denies nausea, vomiting, or diarrhea. GENITOURINARY: Denies difficulty urinating, painful urination, burning, frequency, or blood in urine. MUSCULOSKELETAL: Knee pain SKIN: Denies rash or skin lesions. HEMATOLOGIC : History of sickle cell disease LYMPHATIC: Denies swollen, enlarged glands. NEUROLOGICAL: Denies altered mental status or loss of consciousness. Denies headache. Denies weakness or paralysis or loss of use of either side. Denies problems with gait or speech. Denies sensory or motor loss. ALL OTHER SYSTEMS REVIEWED AND NEGATIVE. Physical Exam - Vital signs Vitals: Temp Pulse Resp BP Pulse Ox 98.9 F 109 H 16 131/87 H 96 04/04/18 23:42 04/04/18 23:42 04/04/18 23:42 04/04/18 23:42 04/04/18 23:42 - Notes Notes: General Appearance: Well nourished, alert, cooperative, no acute distress, moderate obvious discomfort. Vitals: reviewed, See vital signs table. Head: no swelling or tenderness to the head Eyes: PERRL, EOMI, Conjuctiva clear Mouth: No decreasd moisture Lungs: No wheezing, No rales, No rhonci, No accessory muscle use, good air exchange bilaterally. Heart: Tachycardic rate, Regular rythm, No murmur, no rub Abdomen: Normal BS, soft, No rigidity, No abdominal tenderness, No guarding, no rebound, no abdominal masses, no organomegaly Extremities: strength 5/5 in all extremities, good pulses in all extremities, no swelling or tenderness in the extremities, no redness or swelling to either knee. Patient does have good range of motion with flexion extension of the knees. No edema. Skin: warm, dry, appropriate color, no rash Neuro: speech clear, oriented x 3, normal affect, responds appropriately to questions. Course - Re-evaluation Re-evalutation: 04/05/18 05:19 Patient's pain is much improved. He says he feels well and would like to go home. He does request more dose pain medicine before he leaves. He does not feel that he needs admission at this time. His laboratory evaluation is unremarkable at this time. He has no fevers and he looks well on exam. He has no chest pain or shortness of breath. She does not have any associated abdominal pain. I will discharge patient home by strongly encouraged him follow -up closely with his oncologist on Saturday. I strongly encourage him return to ER immediately if he has intractable pain, fevers, difficulty breathing, chest pain, abdominal pain, or feels unwell. Patient agrees with plan will be discharged home. Dictation of this chart was performed using voice recognition software; therefore, there may be some unintended grammatical errors. - Vital Signs Vital signs: Temp Pulse Resp BP Pulse Ox 98.9 F 109 H 16 131/87 H 96 04/04/18 23:42 04/04/18 23:42 04/04/18 23:42 04/04/18 23:42 04/04/18 23:42 - Laboratory Result Diagrams: 04/05/18 02:14 04/05/18 02:14 Laboratory results interpreted by me: 04/05/18 04/05/18 02:14 02:14 RBC 3.18 L Hgb 10.6 L Hct 31.0 L RDW 26.0 H Metamyelocytes % 1 H Abs Neuts (Manual) 0.0 L Abs Lymphs (Manual) 0.0 L Abs Monocytes (Manual) 0.0 L Retic Count (auto) 8.53 H Absolute Retic 0.271 H Sodium 145.3 H Chloride 108 H Total Bilirubin 1.9 H Direct Bilirubin 0.6 H ALT 19 L Alkaline Phosphatase 150 H Total Protein 8.3 H Discharge - Discharge Clinical Impression: Sickle cell crisis Sickle cell anemia Qualifiers: Sickle-cell associated disorders: with unspecified crisis Qualified Code(s): D57.00 - Hb-SS disease with crisis, unspecified Condition: Good Disposition: HOME, SELF-CARE Additional Instructions: Please take your pain medications as prescribed. Please follow up with Dr. Carlos for reevaluation on Saturday. Please return to the ER if you have recurrent worsening pain, chest pain, difficulty breathing, fevers, or feel unwell.
[2018-04-05] MEDS: NORMAL SALINE 1000 ML 1,000 ML IV PRN ×2 (02:20→04:13)
[2018-04-05 02:57] LABS: ABSOLUTE RETICS # 0.271 10^6/uL (0.028-0.122); HEMOGLOBIN 10.6 g/dL (13.5-17.0); MEAN CORPUSCULAR HEMOGLOBIN 33.3 pg (27.0-33.4); MEAN CORPUSCULAR HGB CONC 34.2 g/dL (32.0-36.0); PLATELET COUNT 382 10^3/uL (150-450); RED BLOOD COUNT 3.18 10^6/uL (4.35-5.55); RETICULOCYTE COUNT (AUTO) 8.53 % (0.66-2.85)
[2018-04-05 03:00] LABS: ALANINE AMINOTRANSFERASE 19 U/L (21-72); ALBUMIN 4.4 g/dL (3.5-5.0); ALKALINE PHOSPHATASE 150 U/L (38-126); ANION GAP 14 (5-19); ASPARTATE AMINO TRANSFERASE 50 U/L (17-59); BILIRUBIN,DIRECT 0.6 mg/dL (0.0-0.4); BILIRUBIN,TOTAL 1.9 mg/dL (0.2-1.3); BLOOD UREA NITROGEN 10 mg/dL (7-20); CALCIUM 9.2 mg/dL (8.4-10.2); CARBON DIOXIDE 23 mmol/L (22-30); CHLORIDE 108 mmol/L (98-107); GLUCOSE 89 mg/dL (75-110); POTASSIUM 4.2 mmol/L (3.6-5.0); SODIUM 145.3 mmol/L (137-145); TOTAL PROTEIN 8.3 g/dL (6.3-8.2)
[2018-04-05 03:23] LABS: BASOPHILS % (MANUAL) 0 % (0-2); EOSINOPHILS % (MANUAL) 6 % (0-6); LYMPHOCYTES % (MANUAL) 34 % (13-45); METAMYELOCYTES % (MANUAL) 1 % (0); MONOCYTES % (MANUAL) 12 % (3-13); NUCLEATED RED BLOOD CELLS 5 /100 WBC (0); SEGMENTED NEUTROPHILS % (MAN) 47 % (42-78); TOTAL CELLS COUNTED 100
[2018-04-05 03:29] LABS: ANISOCYTOSIS 4+; POIKILOCYTOSIS 3+; POLYCHROMASIA 1+; SICKLE RED CELLS 2+; STOMATOCYTES 1+
[2018-04-05 03:30] LABS: HOWELL-JOLLY BODIES PRESENT; HYPOCHROMASIA 1+; TARGET CELLS 1+
[2018-04-05 03:31] LABS: PLATELET COMMENT ADEQUATE; PLATELET LARGE PRESENT; WHITE BLOOD COUNT 8.4 10^3/uL (4.0-10.5)
[2018-04-05 03:35] LABS: MEAN CORPUSCULAR VOLUME 97 fl (80-97)
[2018-04-05 05:30] VITALS: BP 137/79
== END 2018-04-05 05:28 | disposition home or self-care (01) ==
LOC: ER 23:40
DX: D57.00 Hb-SS disease with crisis, unspecified (principal); M25.562 Pain in left knee; M25.561 Pain in right knee; Z90.49 Acquired absence of other specified parts of digestive tract
CPT/HCPCS: 96376; 99284; 96361; 96374; 96375; 36415; 85025; 85045; 80053; J1200; J1170; J2405; J7030

== ENCOUNTER 2018-04-09 21:29 | Emergency (ER) | payer MEDICAID ==
--- NOTE | 2018-04-09 23:08 | ER Document Report ---
ED Medical Screen (RME) - General Chief Complaint: Sickle Cell Crisis Stated Complaint: SICKLE CELL PAIN IN BOTH KNEES Time Seen by Provider: 04/09/18 23:06 Mode of Arrival: Ambulatory Information source: Patient Notes: Patient is a 22-year-old male who presents with chief complaint of bilateral knee pain 2 days. Patient also reports nausea and shortness of breath with ambulation. Patient reports this feels like one of his typical sickle cell crisis. Exam: Patient ambulated with steady gait. Patient's lung sounds clear to auscultation bilaterally. I have greeted and performed a rapid initial assessment of this patient. A comprehensive ED assessment and evaluation of the patient, analysis of test results and completion of the medical decision making process will be conducted by additional ED providers. Dictation of this chart was performed using voice recognition software; therefore, there may be some unintended grammatical errors. TRAVEL OUTSIDE OF THE [place] IN LAST 30 DAYS: No - Related Data Allergies/Adverse Reactions: Coconut * [Coconut] Allergy (Mild, Verified 03/02/18 19:45) transpore tape Allergy (Mild, Uncoded 03/02/18 19:45) Hives Past Medical History - Social History Family history: None Pulmonary Medical History: Reports: Hx Asthma, Hx Pneumonia Renal/ Medical History: Denies: Hx Peritoneal Dialysis Psychiatric Medical History: Denies: Hx Depression Past Surgical History: Reports: Hx Abdominal Surgery - Gallstones removal, Hx Cholecystectomy, Hx Orthopedic Surgery - Fluid drained from right foot, Hx Vascular Surgery - Port placement - Immunizations Immunizations up to date: Yes Hx Diphtheria, Pertussis, Tetanus Vaccination: Yes History of Influenza Vaccine for 06/2017 - 10/2017 Season: Yes Influenza Administration Date for 06/2017 - 10/2017 Season: 06/02/17 Physical Exam - Vital signs Vitals: Temp Pulse Resp BP Pulse Ox 99.2 F 108 H 18 132/82 H 92 04/09/18 21:45 04/09/18 21:45 04/09/18 21:45 04/09/18 21:45 04/09/18 21:45 Course - Vital Signs Vital signs: Temp Pulse Resp BP Pulse Ox 99.2 F 108 H 18 132/82 H 92 04/09/18 21:45 04/09/18 21:45 04/09/18 21:45 04/09/18 21:45 04/09/18 21:45 Doctor's Discharge - Discharge Referrals: ANDREW WILLIS MD [Primary Care Provider] - Follow up as needed
[2018-04-09] MEDS ORDERED: NORMAL SALINE 1000 ML 1,000 ML IV ONE (23:09)
[2018-04-09] MEDS ORDERED: DIPHENHYDRAMINE HCL 50 MG/ML VIAL IV ONE (23:09)
[2018-04-09] MEDS ORDERED: HYDROMORPHONE HCL INJ/PF 2 MG/ML AMPULE IV ONE (23:09)
[2018-04-09 23:52] LABS: ABSOLUTE RETICS # 0.264 10^6/uL (0.028-0.122); HEMATOCRIT 30.8 % (37.9-51.0); HEMOGLOBIN 10.4 g/dL (13.5-17.0); MEAN CORPUSCULAR HEMOGLOBIN 33.2 pg (27.0-33.4); MEAN CORPUSCULAR HGB CONC 33.7 g/dL (32.0-36.0); MEAN CORPUSCULAR VOLUME 99 fl (80-97); PLATELET COUNT 181 10^3/uL (150-450); RED BLOOD COUNT 3.12 10^6/uL (4.35-5.55); RED CELL DISTRIBUTION WIDTH 26.3 % (11.5-14.0); RETICULOCYTE COUNT (AUTO) 8.44 % (0.66-2.85); WHITE BLOOD COUNT 8.1 10^3/uL (4.0-10.5)
[2018-04-09 23:57] LABS: ALANINE AMINOTRANSFERASE 7 U/L (21-72); ALBUMIN 4.7 g/dL (3.5-5.0); ALKALINE PHOSPHATASE 129 U/L (38-126); ANION GAP 12 (5-19); ASPARTATE AMINO TRANSFERASE 62 U/L (17-59); BILIRUBIN,DIRECT 0.4 mg/dL (0.0-0.4); BLOOD UREA NITROGEN 13 mg/dL (7-20); CALCIUM 9.2 mg/dL (8.4-10.2); CARBON DIOXIDE 27 mmol/L (22-30); CHLORIDE 107 mmol/L (98-107); GLUCOSE 90 mg/dL (75-110); POTASSIUM 4.4 mmol/L (3.6-5.0); SODIUM 145.5 mmol/L (137-145)
[2018-04-10 00:11] LABS: ABSOLUTE LYMPHOCYTES# (MANUAL) 3.1 10^3/uL (0.5-4.7); ABSOLUTE MONOCYTES # (MANUAL) 0.8 10^3/uL (0.1-1.4); BASOPHILS % (MANUAL) 0 % (0-2); EOSINOPHILS % (MANUAL) 3 % (0-6); LYMPHOCYTES % (MANUAL) 38 % (13-45); MONOCYTES % (MANUAL) 10 % (3-13); NUCLEATED RED BLOOD CELLS 3 /100 WBC (0); SEGMENTED NEUTROPHILS % (MAN) 49 % (42-78); TOTAL CELLS COUNTED 100
[2018-04-10 00:12] LABS: SICKLE RED CELLS 2+; TARGET CELLS 3+
[2018-04-10 00:13] LABS: ANISOCYTOSIS 3+; OVALOCYTES 1+; POIKILOCYTOSIS 3+; POLYCHROMASIA 1+
[2018-04-10 00:14] LABS: PLATELET COMMENT ADEQUATE
[2018-04-10] MEDS ORDERED: HYDROMORPHONE HCL INJ/PF 2 MG/ML AMPULE IV ONE (00:49)
[2018-04-10] MEDS ORDERED: DIPHENHYDRAMINE HCL 25 MG CAPSULE PO ONE (00:55)
--- NOTE | 2018-04-10 03:03 | ER Document Report ---
ED General - General Chief Complaint: Sickle Cell Crisis Stated Complaint: SICKLE CELL PAIN IN BOTH KNEES Time Seen by Provider: 04/09/18 23:06 Mode of Arrival: Ambulatory TRAVEL OUTSIDE OF THE [place] IN LAST 30 DAYS: No - HPI Patient complains to provider of: Pain in the lower extremities Onset: Other - 22 year old man with a history of sickle cell anemia and frequent pain crisis that presents with stereotypical pain crisis in the knees bilaterally. He is generally controlled with oxycodone 15 mg as needed for his pain but he notes over the last 2 days that his pain has been unimproved with his regimen. He notes movement makes is worse, nothing makes it better, it has a throbbing aching quality. He denies fever, chills, chest pain, shortness of breath, abdominal pain, diarrhea, constipation dysuria, rashes, lightheadedness , numbness or weakness. - Related Data Allergies/Adverse Reactions: Coconut * [Coconut] Allergy (Mild, Verified 04/11/18 15:13) transpore tape Allergy (Mild, Uncoded 04/11/18 15:13) Hives Past Medical History - General Information source: Patient - Social History Smoking Status: Never Smoker Chew tobacco use (# tins/day): No Frequency of alcohol use: None Drug Abuse: None Family History: Reviewed & Not Pertinent, Arthritis, DM, Hypertension, Other - Sickle cell trait both parents and asthma Patient has suicidal ideation: No Patient has homicidal ideation: No - Medical History Medical History: Other - sickle cell anemia Pulmonary Medical History: Reports: Hx Asthma, Hx Pneumonia Renal/ Medical History: Denies: Hx Peritoneal Dialysis Psychiatric Medical History: Denies: Hx Depression Past Surgical History: Reports: Hx Abdominal Surgery - Gallstones removal, Hx Cholecystectomy, Hx Orthopedic Surgery - Fluid drained from right foot, Hx Vascular Surgery - Port placement - Immunizations Immunizations up to date: Yes Hx Diphtheria, Pertussis, Tetanus Vaccination: Yes Hx Pneumococcal Vaccination: 01/15/13 Review of Systems - Review of Systems -: Yes All other systems reviewed and negative Physical Exam - Vital signs Vitals: Temp Pulse Resp BP Pulse Ox 99.2 F 108 H 18 132/82 H 92 04/09/18 21:45 04/09/18 21:45 04/09/18 21:45 04/09/18 21:45 04/09/18 21:45 - General General appearance: Appears well In distress: None - HEENT Head: Normocephalic Eyes: Normal Conjunctiva: Normal Pupils: PERRL Neck: Normal - Respiratory Respiratory status: No respiratory distress Chest status: Nontender Breath sounds: Normal - Cardiovascular Rhythm: Regular Heart sounds: Normal auscultation Murmur: No - Abdominal Inspection: Normal Distension: No distension Bowel sounds: Normal - Back Back: Normal - Extremities General upper extremity: Normal inspection General lower extremity: Other Hip: Normal Thigh: Normal Knee: Tender, Other - over the tibial plateu bilaterally there is tenderness to palpation Calf: Tender Course - Re-evaluation Re-evalutation: 04/12/18 06:52 this 22 yo male with SSA that presens with stereotypical SSA pain crisis. He received labs and narcotic analgesia through triage. On evaluation he is in no obvious distress but reports that his pain is persistent. As such planned to redose analgesia, His labs are at baseline or better than usual and he has no respiratory symptoms as such do not believe this represents acute chest or a hemolytic crisis. After second dose of analgesia patient's pain is improved, he is tolerating PO and would like to go home. As he is well appearing will plan for dc with return precautions. - Vital Signs Vital signs: Temp Pulse Resp BP Pulse Ox 99.2 F 108 H 18 125/80 92 04/09/18 21:45 04/09/18 21:45 04/10/18 03:01 04/10/18 03:01 04/10/18 03:01 - Laboratory Result Diagrams: 04/09/18 23:25 04/09/18 23:25 Laboratory results interpreted by me: 04/09/18 04/09/18 23:25 23:25 RBC 3.12 L Hgb 10.4 L Hct 30.8 L MCV 99 H RDW 26.3 H Retic Count (auto) 8.44 H Absolute Retic 0.264 H Sodium 145.5 H Total Bilirubin 2.0 H AST 62 H ALT 7 L Alkaline Phosphatase 129 H Total Protein 9.0 H Discharge - Discharge Clinical Impression: Sickle cell crisis Leg pain Qualifiers: Laterality: bilateral Qualified Code(s): M79.604 - Pain in right leg Condition: Good Disposition: HOME, SELF-CARE Instructions: Sickle Cell Crisis ([facility]) Referrals: ANDREW WILLIS MD [Primary Care Provider] - Follow up as needed
[2018-04-10 03:05] VITALS: BP 125/80
== END 2018-04-10 03:12 | disposition home or self-care (01) ==
LOC: ER 21:29
DX: D57.00 Hb-SS disease with crisis, unspecified (principal); M25.561 Pain in right knee; M25.562 Pain in left knee; M79.604 Pain in right leg; J45.909 Unspecified asthma, uncomplicated; Z91.018 Allergy to other foods; Z88.8 Allergy status to other drugs, medicaments and biological substances
CPT/HCPCS: 96376; 99284; 96361; 96374; 96375; 36415; 85025; 85045; 80053; J3490; J1200; J1170 ×2; J7030

== ENCOUNTER 2018-04-11 14:50 | Emergency (ER) | payer MEDICAID ==
[2018-04-11] MEDS ORDERED: HYDROMORPHONE HCL INJ/PF 2 MG/ML AMPULE IV ONE (15:22)
[2018-04-11] MEDS ORDERED: DIPHENHYDRAMINE HCL 50 MG/ML VIAL IV ONE (15:22)
[2018-04-11] MEDS ORDERED: ONDANSETRON HCL INJ/PF 4 MG/2 ML SDV IV ONE (15:22)
[2018-04-11] MEDS ORDERED: NORMAL SALINE 1000 ML 1,000 ML IV ONE (15:22)
--- NOTE | 2018-04-11 15:24 | ER Document Report ---
ED Medical Screen (RME) - General Chief Complaint: Sickle Cell Crisis Stated Complaint: LOWER BACK,KNEE PAIN Time Seen by Provider: 04/11/18 15:21 Mode of Arrival: Ambulatory Information source: Patient TRAVEL OUTSIDE OF THE [place] IN LAST 30 DAYS: No - HPI Patient complains to provider of: sickle cell crisis Onset: This morning - pt. with h/o SCD with c/o crisis starting earlier this am with L knee and LBP - Related Data Allergies/Adverse Reactions: Coconut * [Coconut] Allergy (Mild, Verified 04/11/18 15:13) transpore tape Allergy (Mild, Uncoded 04/11/18 15:13) Hives Past Medical History - Social History Family history: None Pulmonary Medical History: Reports: Hx Asthma, Hx Pneumonia Renal/ Medical History: Denies: Hx Peritoneal Dialysis Psychiatric Medical History: Denies: Hx Depression Past Surgical History: Reports: Hx Abdominal Surgery - Gallstones removal, Hx Cholecystectomy, Hx Orthopedic Surgery - Fluid drained from right foot, Hx Vascular Surgery - Port placement - Immunizations Immunizations up to date: Yes Hx Diphtheria, Pertussis, Tetanus Vaccination: Yes History of Influenza Vaccine for 06/2017 - 10/2017 Season: Yes Influenza Administration Date for 06/2017 - 10/2017 Season: 06/02/17 Physical Exam - Vital signs Vitals: Temp Pulse Resp BP Pulse Ox 99.5 F 108 H 18 132/90 H 94 04/11/18 14:56 04/11/18 14:56 04/11/18 14:56 04/11/18 14:56 04/11/18 14:56 Course - Vital Signs Vital signs: Temp Pulse Resp BP Pulse Ox 99.5 F 108 H 18 132/90 H 94 04/11/18 14:56 04/11/18 14:56 04/11/18 14:56 04/11/18 14:56 04/11/18 14:56 Doctor's Discharge - Discharge Referrals: ANDREW WILLIS MD [Primary Care Provider] - Follow up as needed
[2018-04-11 17:40] LABS: ABSOLUTE RETICS # 0.326 10^6/uL (0.028-0.122); HEMATOCRIT 31.7 % (37.9-51.0); HEMOGLOBIN 10.8 g/dL (13.5-17.0); MEAN CORPUSCULAR HEMOGLOBIN 33.6 pg (27.0-33.4); MEAN CORPUSCULAR HGB CONC 34.1 g/dL (32.0-36.0); MEAN CORPUSCULAR VOLUME 99 fl (80-97); RED BLOOD COUNT 3.21 10^6/uL (4.35-5.55); RED CELL DISTRIBUTION WIDTH 27.2 % (11.5-14.0); RETICULOCYTE COUNT (AUTO) 10.18 % (0.66-2.85); WHITE BLOOD COUNT 9.1 10^3/uL (4.0-10.5)
[2018-04-11 17:59] LABS: PLATELET COUNT 153 10^3/uL (150-450)
[2018-04-11 18:06] LABS: ABSOLUTE LYMPHOCYTES# (MANUAL) 1.9 10^3/uL (0.5-4.7); ABSOLUTE MONOCYTES # (MANUAL) 1.3 10^3/uL (0.1-1.4); ABSOLUTE NEUTROPHILS# (MANUAL) 5.5 10^3/uL (1.7-8.2); BASOPHILS % (MANUAL) 0 % (0-2); EOSINOPHILS % (MANUAL) 5 % (0-6); LYMPHOCYTES % (MANUAL) 21 % (13-45); MONOCYTES % (MANUAL) 14 % (3-13); NUCLEATED RED BLOOD CELLS 15 /100 WBC (0); SEGMENTED NEUTROPHILS % (MAN) 60 % (42-78); TOTAL CELLS COUNTED 100
[2018-04-11 18:09] LABS: ANISOCYTOSIS 3+; OVALOCYTES 1+; PLATELET CLUMPS PRESENT; PLATELET COMMENT ADEQUATE; POIKILOCYTOSIS 1+; POLYCHROMASIA 1+; TARGET CELLS SLIGHT
[2018-04-11 18:12] LABS: SICKLE RED CELLS 1+
--- NOTE | 2018-04-11 18:45 | ER Document Report ---
ED General - General Chief Complaint: Sickle Cell Crisis Stated Complaint: LOWER BACK,KNEE PAIN Time Seen by Provider: 04/11/18 15:21 Mode of Arrival: Ambulatory Notes: Patient is a 22-year-old male with a past medical history of sickle cell anemia who presents with a sickle cell pain crisis. He states that he has a severe, throbbing, constant pain to his left knee and low back. He states that the symptoms started earlier today and have been persistent since that time. He has not tried anything to improve the pain. Nothing seems to worsen the pain. He states that this feels very similar to when he has had sickle cell crises in the past. He denies any fever or constitutional symptoms. He denies any shortness of breath. Denies any symptoms that feels similar to when he has had acute chest syndrome in the past. He has not contacted his general doctor or core microarchitect regarding today's concerns. TRAVEL OUTSIDE OF THE [place] IN LAST 30 DAYS: No - Related Data Allergies/Adverse Reactions: Coconut * [Coconut] Allergy (Mild, Verified 04/11/18 15:13) transpore tape Allergy (Mild, Uncoded 04/11/18 15:13) Hives Past Medical History - General Information source: Patient - Social History Smoking Status: Never Smoker Frequency of alcohol use: None Drug Abuse: None Lives with: Spouse/Significant other Family History: Reviewed & Not Pertinent, Arthritis, DM, Hypertension, Other - Sickle cell trait both parents and asthma Patient has suicidal ideation: No Patient has homicidal ideation: No Pulmonary Medical History: Reports: Hx Asthma, Hx Pneumonia Renal/ Medical History: Denies: Hx Peritoneal Dialysis Psychiatric Medical History: Denies: Hx Depression Past Surgical History: Reports: Hx Abdominal Surgery - Gallstones removal, Hx Cholecystectomy, Hx Orthopedic Surgery - Fluid drained from right foot, Hx Vascular Surgery - Port placement - Immunizations Immunizations up to date: Yes Hx Diphtheria, Pertussis, Tetanus Vaccination: Yes Hx Pneumococcal Vaccination: 01/15/13 Review of Systems - Review of Systems Notes: Constitutional: Negative for fever. HENT: Negative for sore throat. Eyes: Negative for visual changes. Cardiovascular: Negative for chest pain. Respiratory: Negative for shortness of breath. Gastrointestinal: Negative for abdominal pain, vomiting or diarrhea. Genitourinary: Negative for dysuria. Musculoskeletal: Positive for low back pain and left knee pain Skin: Negative for rash. Neurological: Negative for headaches, weakness or numbness. 10 point ROS negative except as marked above and in HPI. Physical Exam - Vital signs Vitals: Temp Pulse Resp BP Pulse Ox 99.5 F 108 H 18 132/90 H 94 04/11/18 14:56 04/11/18 14:56 04/11/18 14:56 04/11/18 14:56 04/11/18 14:56 Interpretation: Tachycardic Notes: PHYSICAL EXAMINATION: GENERAL: Well-appearing, well-nourished and in no acute distress. HEAD: Atraumatic, normocephalic. EYES: Pupils equal round and reactive to light, extraocular movements intact, sclera anicteric, conjunctiva are normal. ENT: nares patent, oropharynx clear without exudates. Moist mucous membranes. NECK: Normal range of motion, supple without lymphadenopathy LUNGS: Breath sounds clear to auscultation bilaterally and equal. No wheezes rales or rhonchi. HEART: Regular tachycardia without murmurs ABDOMEN: Soft, nontender, normoactive bowel sounds. No guarding, no rebound. No masses appreciated. EXTREMITIES: Normal range of motion, no pitting or edema. No cyanosis. NEUROLOGICAL: No focal neurological deficits. Moves all extremities spontaneously and on command. PSYCH: Normal mood, normal affect. SKIN: Warm, Dry, normal turgor, no rashes or lesions noted. Course - Re-evaluation Re-evalutation: 04/11/18 18:44 Presentation is most consistent with an uncomplicated sickle cell pain crisis. Patient has no evidence of an aplastic crisis on labs. History and vitals are not consistent with acute chest syndrome. Vitals have remained within normal limits here in the emergency department. Patient's pain has been able to be controlled using IV analgesia. The patient is agreeable to discharge home at this time. I recommended that they follow closely with their primary core microarchitect. At this time will discharge with return precautions and follow- up recommendations. Verbal discharge instructions given a the bedside and opportunity for questions given. Medication warnings reviewed. Patient is in agreement with this plan and has verbalized understanding of return precautions and the need for primary care follow-up in the next 24-72 hours. - Vital Signs Vital signs: Temp Pulse Resp BP Pulse Ox 97.7 F 72 16 100/58 L 98 04/11/18 22:45 04/11/18 22:45 04/11/18 22:45 04/11/18 22:45 04/11/18 22:45 - Laboratory Result Diagrams: 04/11/18 16:46 Laboratory results interpreted by me: 04/11/18 16:46 RBC 3.21 L Hgb 10.8 L Hct 31.7 L MCV 99 H MCH 33.6 H RDW 27.2 H Monocytes % (Manual) 14 H Retic Count (auto) 10.18 H Absolute Retic 0.326 H Discharge - Discharge Clinical Impression: Sickle cell crisis Left knee pain Qualifiers: Chronicity: acute Qualified Code(s): M25.562 - Pain in left knee Condition: Good Disposition: HOME, SELF-CARE Additional Instructions: You were seen today for sickle cell pain crisis. Please follow-up with your core microarchitect. Returning to the ED if you have worsening pain, fever greater than 100.4, shortness of breath, persistent vomiting, or any other symptoms that are concerning to you. Referrals: ANDREW WILLIS MD [Primary Care Provider] - Follow up as needed
[2018-04-11] MEDS: HYDROMORPHONE HCL INJ/PF 2 MG/ML AMPULE IV PRN ×2 (19:29→21:08)
[2018-04-11] MEDS ORDERED: DIPHENHYDRAMINE HCL 25 MG CAPSULE PO ONE (20:57)
[2018-04-11 22:48] VITALS: BP 100/58
== END 2018-04-11 22:48 | disposition home or self-care (01) ==
LOC: ER 14:50
DX: D57.00 Hb-SS disease with crisis, unspecified (principal); M25.562 Pain in left knee; M54.5 Low back pain; J45.909 Unspecified asthma, uncomplicated; Z91.018 Allergy to other foods; Z88.8 Allergy status to other drugs, medicaments and biological substances
CPT/HCPCS: 96376; 99284; 96361; 96374; 96375; 36415; 85025; 85045; J3490; J1200; J1170; J2405; J7030

== ENCOUNTER 2018-04-13 03:55 | Emergency (ER) | payer MEDICAID ==
[2018-04-13] MEDS ORDERED: HYDROMORPHONE HCL INJ/PF 2 MG/ML AMPULE IV ONE ×4 (04:21→10:22)
[2018-04-13] MEDS ORDERED: DIPHENHYDRAMINE HCL 50 MG/ML VIAL IV ONE (04:21)
--- NOTE | 2018-04-13 04:23 | ER Document Report ---
Doctor's Note Notes: 04/13/18 04:23 I performed a quick triage evaluation of the patient. Patient is a 22-year-old male with a history of sickle cell disease who presents with complaint of pain in his knees, back, chest. Has mild shortness of breath. No fevers. No vomiting. No coughing up blood. No abdominal pain. He still has his gallbladder and spleen. Have previous history of acute chest syndrome. Says currently does not feel quite like that. Symptoms started this morning. I have ordered pain medicine as well as labs and chest x-ray. Patient on monitor.
[2018-04-13] MEDS: NORMAL SALINE 1000 ML 1,000 ML IV PRN ×2 (05:12→08:09)
--- NOTE | 2018-04-13 05:16 | RADIOLOGY REPORT (SQ) ---
EXAM DESCRIPTION: XR CHEST 2 VIEWS COMPLETED DATE/TME: 04/13/2018 04:20 CLINICAL HISTORY: chest pain COMPARISON: 03/13/2018 FINDINGS: Frontal and lateral views of the chest. The cardiomediastinal silhouette has normal size and contour. No consolidation, pneumothorax, or pleural effusion. Chronic scarring of the lung bases. No acute osseous abnormalities. Osseous findings suggestive of sickle cell disease. Prior cholecystectomy. IMPRESSION: 1. No acute pulmonary process identified. Chronic changes are stable.
[2018-04-13 05:19] LABS: HEMATOCRIT 28.6 % (37.9-51.0); HEMOGLOBIN 10.2 g/dL (13.5-17.0); MEAN CORPUSCULAR HEMOGLOBIN 35.1 pg (27.0-33.4); MEAN CORPUSCULAR HGB CONC 35.8 g/dL (32.0-36.0); MEAN CORPUSCULAR VOLUME 98 fl (80-97); PLATELET COUNT 137 10^3/uL (150-450); RED BLOOD COUNT 2.91 10^6/uL (4.35-5.55); RED CELL DISTRIBUTION WIDTH 28.2 % (11.5-14.0); RETICULOCYTE COUNT (AUTO) 10.31 % (0.66-2.85)
[2018-04-13] MEDS ORDERED: ONDANSETRON HCL INJ/PF 4 MG/2 ML SDV IV ONE (05:49)
[2018-04-13 05:54] LABS: BASOPHILS % (MANUAL) 0 % (0-2); EOSINOPHILS % (MANUAL) 0 % (0-6); LYMPHOCYTES % (MANUAL) 38 % (13-45); MONOCYTES % (MANUAL) 7 % (3-13); NUCLEATED RED BLOOD CELLS 21 /100 WBC (0); SEGMENTED NEUTROPHILS % (MAN) 54 % (42-78); TOTAL CELLS COUNTED 100
[2018-04-13 05:57] LABS: ANISOCYTOSIS 3+; HYPOCHROMASIA 1+; PLATELET COMMENT DECREASED; PLATELET LARGE PRESENT; POIKILOCYTOSIS 2+; POLYCHROMASIA 1+; SICKLE RED CELLS 3+; TARGET CELLS 2+
[2018-04-13 06:00] LABS: ALANINE AMINOTRANSFERASE 20 U/L (21-72); ALBUMIN 4.7 g/dL (3.5-5.0); ALKALINE PHOSPHATASE 151 U/L (38-126); ANION GAP 14 (5-19); ASPARTATE AMINO TRANSFERASE 60 U/L (17-59); BILIRUBIN,DIRECT 0.4 mg/dL (0.0-0.4); BILIRUBIN,TOTAL 2.9 mg/dL (0.2-1.3); BLOOD UREA NITROGEN 12 mg/dL (7-20); CALCIUM 9.4 mg/dL (8.4-10.2); CARBON DIOXIDE 24 mmol/L (22-30); CHLORIDE 108 mmol/L (98-107); GLUCOSE 103 mg/dL (75-110); POTASSIUM 4.4 mmol/L (3.6-5.0); SODIUM 145.5 mmol/L (137-145); TOTAL PROTEIN 8.7 g/dL (6.3-8.2)
[2018-04-13 06:01] LABS: WHITE BLOOD COUNT 8.7 10^3/uL (4.0-10.5)
[2018-04-13] MEDS ORDERED: FAMOTIDINE INJ/PF 20 MG/2 ML SDV IV ONE (06:39)
[2018-04-13] MEDS ORDERED: NORMAL SALINE 1000 ML 1,000 ML IV ONE (08:29)
[2018-04-13 09:56] VITALS: BP 141/78
--- NOTE | 2018-04-13 10:49 | ER Document Report ---
ED General - General Chief Complaint: Sickle Cell Crisis Stated Complaint: KNEE/CHEST PAIN Time Seen by Provider: 04/13/18 04:30 Mode of Arrival: Ambulatory Information source: Patient TRAVEL OUTSIDE OF THE [place] IN LAST 30 DAYS: No - HPI Onset: This morning Onset/Duration: Sudden Quality of pain: Sharp Severity: Severe Pain Level: 5 Associated symptoms: None Exacerbated by: Denies Relieved by: Denies Similar symptoms previously: Yes Recently seen / treated by doctor: No - Related Data Allergies/Adverse Reactions: Coconut * [Coconut] Allergy (Mild, Verified 04/11/18 15:13) transpore tape Allergy (Mild, Uncoded 04/11/18 15:13) Hives Past Medical History - Social History Smoking Status: Never Smoker Chew tobacco use (# tins/day): No Frequency of alcohol use: Rare Drug Abuse: None Family History: Reviewed & Not Pertinent, Arthritis, DM, Hypertension, Other - Sickle cell trait both parents and asthma Patient has suicidal ideation: No Patient has homicidal ideation: No Pulmonary Medical History: Reports: Hx Asthma, Hx Pneumonia Renal/ Medical History: Denies: Hx Peritoneal Dialysis Psychiatric Medical History: Denies: Hx Depression Past Surgical History: Reports: Hx Abdominal Surgery - Gallstones removal, Hx Cholecystectomy, Hx Orthopedic Surgery - Fluid drained from right foot, Hx Vascular Surgery - Port placement - Immunizations Immunizations up to date: Yes Hx Diphtheria, Pertussis, Tetanus Vaccination: Yes Hx Pneumococcal Vaccination: 01/15/13 Review of Systems - Review of Systems Constitutional: denies: Chills, Fever EENT: denies: Eye pain, Eye discharge Cardiovascular: Chest pain. denies: Palpitations Respiratory: No symptoms reported Gastrointestinal: No symptoms reported Genitourinary: No symptoms reported Male Genitourinary: No symptoms reported Musculoskeletal: No symptoms reported Skin: No symptoms reported Hematologic/Lymphatic: No symptoms reported Neurological/Psychological: No symptoms reported -: Yes All other systems reviewed and negative Physical Exam - Vital signs Vitals: Temp Pulse Resp BP Pulse Ox 98.9 F 108 H 18 146/85 H 91 L 04/13/18 04:00 04/13/18 04:00 04/13/18 04:00 04/13/18 04:00 04/13/18 04:00 - General General appearance: Appears well, Alert In distress: Mild - HEENT Head: Normocephalic, Atraumatic Eyes: Normal Pupils: PERRL - Respiratory Respiratory status: No respiratory distress Chest status: Nontender Breath sounds: Normal Chest palpation: Normal - Cardiovascular Rhythm: Regular Heart sounds: Normal auscultation Murmur: No - Abdominal Inspection: Normal Distension: No distension Bowel sounds: Normal Tenderness: Nontender Organomegaly: No organomegaly - Back Back: Normal, Nontender - Extremities General upper extremity: Normal inspection, Nontender, Normal color, Normal ROM , Normal temperature General lower extremity: Normal inspection, Nontender, Normal color, Normal ROM , Normal temperature, Normal weight bearing. No: Jeannine's sign - Neurological Neuro grossly intact: Yes Cognition: Normal Orientation: AAOx4 Rodo Coma Scale Eye Opening: Spontaneous [place] Coma Scale Verbal: Oriented [place] Coma Scale Motor: Obeys Commands [place] Coma Scale Total: 15 Speech: Normal Motor strength normal: LUE, RUE, LLE, RLE Sensory: Normal - Psychological Associated symptoms: Normal affect, Normal mood - Skin Skin Temperature: Warm Skin Moisture: Dry Skin Color: Normal Course - Vital Signs Vital signs: Temp Pulse Resp BP Pulse Ox 98.9 F 108 H 15 141/78 H 99 04/13/18 04:00 04/13/18 04:00 04/13/18 11:00 04/13/18 09:02 04/13/18 11:00 - Laboratory Result Diagrams: 04/13/18 04:17 04/13/18 04:17 Laboratory results interpreted by me: 04/13/18 04/13/18 04:17 04:17 RBC 2.91 L Hgb 10.2 L Hct 28.6 L MCV 98 H MCH 35.1 H RDW 28.2 H Plt Count 137 L Abs Neuts (Manual) 0.0 L Abs Lymphs (Manual) 0.0 L Abs Monocytes (Manual) 0.0 L Retic Count (auto) 10.31 H Absolute Retic 0.300 H Sodium 145.5 H Chloride 108 H Total Bilirubin 2.9 H AST 60 H ALT 20 L Alkaline Phosphatase 151 H Total Protein 8.7 H - Diagnostic Test Radiology reviewed: Image reviewed, Reports reviewed - EKG Interpretation by Me EKG shows normal: Sinus rhythm Rate: Normal - 95 When compared to previous EKG there are: Previous EKG unavailable Additional EKG results interpreted by me: 04/13/18 10:53 LVH, No STEMI. - Transfer of Care Notes: 04/13/18 10:54 Patient says he still has his oxycodone at home and does not need any refills at this time. He will follow-up with his primary doctor tomorrow morning and get more refills as needed for the future. Critical Care Note - Critical Care Note Total time excluding time spent on procedures (mins): 35 Discharge - Discharge Clinical Impression: Sickle cell anemia with pain Condition: Stable Disposition: HOME, SELF-CARE Instructions: Sickle Cell Crisis ([facility]) Additional Instructions: Please follow-up with your primary doctor tomorrow morning. Return to the emergency room if your condition worsens. Referrals: ANDREW WILLIS MD [Primary Care Provider] - Follow up as needed
--- NOTE | 2018-04-13 17:26 | EKG REPORT ---
SEVERITY:- NORMAL ECG - SINUS RHYTHM : Confirmed by: Jasmine Parks MD 13-Apr-2018 17:25:38
== END 2018-04-13 12:00 | disposition home or self-care (01) ==
LOC: ER 03:55
DX: D57.00 Hb-SS disease with crisis, unspecified (principal); M25.569 Pain in unspecified knee; R07.9 Chest pain, unspecified; J45.909 Unspecified asthma, uncomplicated; Z79.899 Other long term (current) drug therapy
CPT/HCPCS: 93005; 96376; 99285; 96361; 96374; 96375; 36415; 85025; 85045; 80053; 84484; 71046; 93010; J1200; J1170; J2405; J7030; S0028

== ENCOUNTER 2018-04-14 18:44 | Emergency (ER) | payer MEDICAID ==
[2018-04-14] MEDS ORDERED: ONDANSETRON HCL INJ/PF 4 MG/2 ML SDV IV ONE (20:35)
[2018-04-14] MEDS ORDERED: NORMAL SALINE 1000 ML 1,000 ML IV ONE (20:35)
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
--- NOTE | 2018-04-14 21:17 | RADIOLOGY REPORT (SQ) ---
EXAM DESCRIPTION: CHEST 2 VIEWS COMPLETED DATE/TIME: 04/14/2018 9:01 pm REASON FOR STUDY: Sickle cell COMPARISON: 04/13/2018 EXAM PARAMETERS: NUMBER OF VIEWS: two views TECHNIQUE: Digital Frontal and Lateral radiographic views of the chest acquired. RADIATION DOSE: NA LIMITATIONS: none FINDINGS: LUNGS AND PLEURA: Mild chronic interstitial changes. MEDIASTINUM AND HILAR STRUCTURES: No masses or contour abnormalities. HEART AND VASCULAR STRUCTURES: Heart normal size. No evidence for failure. BONES: No acute findings. HARDWARE: None in the chest. OTHER: No other significant finding. IMPRESSION: Mild chronic lung changes with no acute cardiopulmonary findings. TECHNICAL DOCUMENTATION: JOB ID: [id number] [employer]- All Rights Reserved Reading location - IP/workstation name: [email or web address]
[2018-04-14 23:28] LABS: ABSOLUTE RETICS # 0.326 10^6/uL (0.028-0.122); HEMATOCRIT 26.7 % (37.9-51.0); HEMOGLOBIN 9.7 g/dL (13.5-17.0); MEAN CORPUSCULAR HEMOGLOBIN 34.5 pg (27.0-33.4); MEAN CORPUSCULAR HGB CONC 36.4 g/dL (32.0-36.0); MEAN CORPUSCULAR VOLUME 95 fl (80-97); PLATELET COUNT 245 10^3/uL (150-450); RED BLOOD COUNT 2.82 10^6/uL (4.35-5.55); RED CELL DISTRIBUTION WIDTH 28.9 % (11.5-14.0); RETICULOCYTE COUNT (AUTO) 11.59 % (0.66-2.85)
--- NOTE | 2018-04-14 23:28 | ER Document Report ---
ED General - General Chief Complaint: Sickle Cell Crisis Stated Complaint: FEVER/BODY PAIN Time Seen by Provider: 04/14/18 20:34 Notes: Patient is a 22-year-old male with a past medical history of hemoglobin SS well- known to me with recurrent pain crises who presents with 1 of his typical same sickle cell pain crises. He describes the pain as being a severe, aching, cramping pain to his right knee and low back. He has not training to improve the pain. Nothing worsens the pain. He states this feels very similar to prior sickle cell crises he has had in the past. He is scheduled for a bone marrow transplant on the of this month at [place]. He denies any fever or constitutional symptoms. No shortness of breath. He states that does not feel like when he has had acute chest in the past. He has not contacted his associate financial planner regarding today's concerns. TRAVEL OUTSIDE OF THE [place] IN LAST 30 DAYS: No - Related Data Allergies/Adverse Reactions: Coconut * [Coconut] Allergy (Mild, Verified 04/11/18 15:13) transpore tape Allergy (Mild, Uncoded 04/11/18 15:13) Hives Past Medical History - General Information source: Patient - Social History Smoking Status: Never Smoker Frequency of alcohol use: Rare Drug Abuse: None Lives with: Spouse/Significant other Family History: Reviewed & Not Pertinent, Arthritis, DM, Hypertension, Other - Sickle cell trait both parents and asthma Patient has suicidal ideation: No Patient has homicidal ideation: No Pulmonary Medical History: Reports: Hx Asthma, Hx Pneumonia Renal/ Medical History: Denies: Hx Peritoneal Dialysis Psychiatric Medical History: Denies: Hx Depression Past Surgical History: Reports: Hx Abdominal Surgery - Gallstones removal, Hx Cholecystectomy, Hx Orthopedic Surgery - Fluid drained from right foot, Hx Vascular Surgery - Port placement - Immunizations Immunizations up to date: Yes Hx Diphtheria, Pertussis, Tetanus Vaccination: Yes Hx Pneumococcal Vaccination: 01/15/13 Review of Systems - Review of Systems Notes: Constitutional: Negative for fever. HENT: Negative for sore throat. Eyes: Negative for visual changes. Cardiovascular: Negative for chest pain. Respiratory: Negative for shortness of breath. Gastrointestinal: Negative for abdominal pain, vomiting or diarrhea. Genitourinary: Negative for dysuria. Musculoskeletal: Positive for low back pain and right knee pain Skin: Negative for rash. Neurological: Negative for headaches, weakness or numbness. 10 point ROS negative except as marked above and in HPI. Physical Exam - Vital signs Vitals: Temp Pulse Resp BP Pulse Ox 98.5 F 108 H 16 134/85 H 93 04/14/18 18:54 04/14/18 18:54 04/14/18 18:54 04/14/18 18:54 04/14/18 18:54 Interpretation: Normal Notes: PHYSICAL EXAMINATION: GENERAL: Well-appearing, well-nourished and in no acute distress. HEAD: Atraumatic, normocephalic. EYES: Pupils equal round and reactive to light, extraocular movements intact, sclera anicteric, conjunctiva are normal. ENT: nares patent, oropharynx clear without exudates. Moist mucous membranes. NECK: Normal range of motion, supple without lymphadenopathy LUNGS: Breath sounds clear to auscultation bilaterally and equal. No wheezes rales or rhonchi. HEART: Regular rate and rhythm without murmurs ABDOMEN: Soft, nontender, normoactive bowel sounds. No guarding, no rebound. No masses appreciated. EXTREMITIES: Normal range of motion, no pitting or edema. No cyanosis. NEUROLOGICAL: No focal neurological deficits. Moves all extremities spontaneously and on command. PSYCH: Normal mood, normal affect. SKIN: Warm, Dry, normal turgor, no rashes or lesions noted. Course - Re-evaluation Re-evalutation: 04/14/18 23:28 Presentation is most consistent with an uncomplicated sickle cell pain crisis. Patient has no evidence of an aplastic crisis on labs. Chest x-ray and vitals are not consistent with acute chest syndrome. Vitals have remained within normal limits here in the emergency department. Patient's pain has been able to be controlled using IV analgesia. The patient is agreeable to discharge home at this time. I recommended that they follow closely with their primary associate financial planner. Return precautions have been reviewed and discussed and patient has verbalized indications to return to the emergency department. - Vital Signs Vital signs: Temp Pulse Resp BP Pulse Ox 98.6 F 97 16 121/83 93 04/14/18 23:40 04/14/18 23:40 04/14/18 18:54 04/14/18 23:40 04/14/18 23:40 - Laboratory Result Diagrams: 04/14/18 23:10 04/14/18 23:10 - Diagnostic Test Radiology reviewed: Image reviewed, Reports reviewed Radiology results interpreted by me: 04/14/18 23:28 Chest x-ray: No acute infiltrate or pneumothorax Discharge - Discharge Clinical Impression: Sickle cell crisis Right knee pain Qualifiers: Chronicity: acute Qualified Code(s): M25.561 - Pain in right knee Condition: Good Disposition: HOME, SELF-CARE Additional Instructions: You were seen today for sickle cell pain crisis. Please follow-up with your associate financial planner. Returning to the ED if you have worsening pain, fever greater than 100.4, shortness of breath, persistent vomiting, or any other symptoms that are concerning to you. Referrals: ANDREW WILLIS MD [Primary Care Provider] - Follow up as needed
[2018-04-14] MEDS: HYDROMORPHONE HCL INJ/PF 2 MG/ML AMPULE IV PRN (23:39)
[2018-04-14 23:58] LABS: BASOPHILS % (MANUAL) 0 % (0-2); EOSINOPHILS % (MANUAL) 0 % (0-6); LYMPHOCYTES % (MANUAL) 43 % (13-45); MONOCYTES % (MANUAL) 7 % (3-13); NUCLEATED RED BLOOD CELLS 45 /100 WBC (0); SEGMENTED NEUTROPHILS % (MAN) 50 % (42-78); TOTAL CELLS COUNTED 100
[2018-04-15 00:03] LABS: ANISOCYTOSIS 4+; HYPOCHROMASIA 1+; POIKILOCYTOSIS 3+; POLYCHROMASIA 2+; SICKLE RED CELLS 3+; TARGET CELLS 1+
[2018-04-15 00:04] LABS: PLATELET COMMENT ADEQUATE; PLATELET GIANT PRESENT; PLATELET LARGE PRESENT
[2018-04-15 00:05] LABS: WHITE BLOOD COUNT 6.6 10^3/uL (4.0-10.5)
[2018-04-15] MEDS: HYDROMORPHONE HCL INJ/PF 2 MG/ML AMPULE IV PRN ×2 (00:55→02:09)
[2018-04-15 03:19] VITALS: BP 130/88
== END 2018-04-15 03:19 | disposition home or self-care (01) ==
LOC: ER 18:44
DX: D57.00 Hb-SS disease with crisis, unspecified (principal); M25.561 Pain in right knee; M54.5 Low back pain; J45.909 Unspecified asthma, uncomplicated; Z91.018 Allergy to other foods; Z88.8 Allergy status to other drugs, medicaments and biological substances
CPT/HCPCS: 99284; 96374; 36415; 85025; 85045; 71046; J1170 ×2

== ENCOUNTER 2018-04-15 23:48 | Emergency (ER) | payer MEDICAID ==
--- NOTE | 2018-04-16 01:03 | ER Document Report ---
ED Medical Screen (RME) - General Chief Complaint: Sickle Cell Crisis Stated Complaint: CHEST PAIN Time Seen by Provider: 04/16/18 01:01 Notes: 22-year-old male with a history of sickle cell disease seen yesterday and decided to go home because he felt better, went home and felt worse, describes shortness of breath and chest pain. Denies fever. TRAVEL OUTSIDE OF THE [place] IN LAST 30 DAYS: No - Related Data Allergies/Adverse Reactions: Coconut * [Coconut] Allergy (Mild, Verified 04/11/18 15:13) transpore tape Allergy (Mild, Uncoded 04/11/18 15:13) Hives Past Medical History - Social History Family history: None Pulmonary Medical History: Reports: Hx Asthma, Hx Pneumonia Renal/ Medical History: Denies: Hx Peritoneal Dialysis Psychiatric Medical History: Denies: Hx Depression Past Surgical History: Reports: Hx Abdominal Surgery - Gallstones removal, Hx Cholecystectomy, Hx Orthopedic Surgery - Fluid drained from right foot, Hx Vascular Surgery - Port placement - Immunizations Immunizations up to date: Yes Hx Diphtheria, Pertussis, Tetanus Vaccination: Yes History of Influenza Vaccine for 06/2017 - 10/2017 Season: Yes Influenza Administration Date for 06/2017 - 10/2017 Season: 06/02/17 Physical Exam - Vital signs Vitals: Temp Pulse Resp BP Pulse Ox 98.6 F 110 H 16 135/84 H 90 L 04/15/18 23:56 04/15/18 23:56 04/15/18 23:56 04/15/18 23:56 04/15/18 23:56 - Respiratory Respiratory status: No respiratory distress Breath sounds: Normal. No: Decreased air movement, Wheezing - Cardiovascular Rhythm: Regular, Tachycardia Heart sounds: Normal auscultation, S1 appreciated, S2 appreciated Course - Vital Signs Vital signs: Temp Pulse Resp BP Pulse Ox 98.6 F 110 H 16 135/84 H 90 L 04/15/18 23:56 04/15/18 23:56 04/15/18 23:56 04/15/18 23:56 04/15/18 23:56 Doctor's Discharge - Discharge Referrals: ANDREW WILLIS MD [Primary Care Provider] - Follow up as needed
[2018-04-16] MEDS ORDERED: HYDROMORPHONE HCL INJ/PF 2 MG/ML AMPULE IV ONE ×6 (01:19→06:56)
[2018-04-16] MEDS ORDERED: DIPHENHYDRAMINE HCL 50 MG/ML VIAL IV ONE ×2 (01:19→03:38)
[2018-04-16] MEDS ORDERED: ONDANSETRON HCL INJ/PF 4 MG/2 ML SDV IV ONE (01:19)
[2018-04-16] MEDS ORDERED: NORMAL SALINE 1000 ML 1,000 ML IV ONE ×2 (01:20→02:22)
--- NOTE | 2018-04-16 01:23 | ER Document Report ---
ED General - General Chief Complaint: Sickle Cell Crisis Stated Complaint: CHEST PAIN Time Seen by Provider: 04/16/18 01:01 Notes: Patient is a 22-year-old male with history of sickle cell disease who presents for the third day and wrote to the ER due to pain. This time he is actually having some social shortness of breathing. Says started this morning. He is due for a bone marrow transplant this Saturday at [facility]. He denies any fevers. He does have previous history of acute chest syndrome. He does have some nausea but no vomiting. No associated abdominal pain. He still has gallbladder and spleen. He has some mild pain throughout his chest. TRAVEL OUTSIDE OF THE [place] IN LAST 30 DAYS: No - Related Data Allergies/Adverse Reactions: Coconut * [Coconut] Allergy (Mild, Verified 04/11/18 15:13) transpore tape Allergy (Mild, Uncoded 04/11/18 15:13) Hives Past Medical History - Social History Smoking Status: Never Smoker Frequency of alcohol use: None Drug Abuse: None Family History: Reviewed & Not Pertinent, Arthritis, DM, Hypertension, Other - Sickle cell trait both parents and asthma Pulmonary Medical History: Reports: Hx Asthma, Hx Pneumonia Renal/ Medical History: Denies: Hx Peritoneal Dialysis Psychiatric Medical History: Denies: Hx Depression Past Surgical History: Reports: Hx Abdominal Surgery - Gallstones removal, Hx Cholecystectomy, Hx Orthopedic Surgery - Fluid drained from right foot, Hx Vascular Surgery - Port placement - Immunizations Immunizations up to date: Yes Hx Diphtheria, Pertussis, Tetanus Vaccination: Yes Hx Pneumococcal Vaccination: 01/15/13 Review of Systems - Review of Systems Notes: My Normal Review Basic REVIEW OF SYSTEMS: CONSTITUTIONAL : Denies fever, chills, or sweats. Denies recent illness. EENT: Denies eye, ear, throat, or mouth pain or symptoms. Denies nasal or sinus congestion. CARDIOVASCULAR: Some chest pain RESPIRATORY: Denies cough, cold, or chest congestion. His breath. GASTROINTESTINAL: Denies abdominal pain. Denies nausea, vomiting, or diarrhea. GENITOURINARY: Denies difficulty urinating, painful urination, burning, frequency, or blood in urine. MUSCULOSKELETAL: Pain in joints and knees. SKIN: Denies rash or skin lesions. HEMATOLOGIC : Sickle cell disease NEUROLOGICAL: Denies altered mental status or loss of consciousness. Denies headache. Denies weakness or paralysis or loss of use of either side. Denies problems with gait or speech. Denies sensory or motor loss. ALL OTHER SYSTEMS REVIEWED AND NEGATIVE. Physical Exam - Vital signs Vitals: Temp Pulse Resp BP Pulse Ox 98.6 F 110 H 16 135/84 H 90 L 04/15/18 23:56 04/15/18 23:56 04/15/18 23:56 04/15/18 23:56 04/15/18 23:56 - Notes Notes: General Appearance: Well nourished, alert, cooperative, mild acute distress, moderate obvious discomfort. Vitals: reviewed, See vital signs table. Head: no swelling or tenderness to the head Eyes: PERRL, EOMI, Conjuctiva clear Mouth: No decreasd moisture Throat: No tonsillar inflammation, No airway obstruction, No lymphadenopathy Neck: Supple, no neck tenderness, No thyromegaly Lungs: slight wheeze in right lower lung field., No rales, No rhonci, mild accessory muscle use, good air exchange bilaterally. Heart: tachycardic rate, Regular rythm, No murmur, no rub Abdomen: Normal BS, soft, No rigidity, No abdominal tenderness, No guarding, no rebound Extremities: strength 5/5 in all extremities, good pulses in all extremities, no swelling or tenderness in the extremities, no edema. Skin: warm, dry, appropriate color, no rash Neuro: speech clear, oriented x 3, normal affect, responds appropriately to questions. Course - Re-evaluation Re-evalutation: 04/16/18 06:12 I did obtain a CTA of the patient's chest except continued tachycardia and hypoxemia when off oxygen. CT fortunately shows no evidence of PE. Patient does not appear to be in acute chest syndrome. Denies any fevers. When he receives the pain medicines pain is controlled but it does not last long any has required frequent re-dosages. I did call [facility] for transfer because is under initial impression the patient is scheduled for a bone marrow transplant this Saturday. Patient's mother showed up approximately 15 minutes ago and has informed me that that is actually been canceled and he has a new donor match and that they were supposed to go up there anyways to talk about the pretransplant. Initially the mother did not want until the patient because she says that sometimes when he gets stressed his crises get worse. I talked to mother at length informed her that he will find out very soon when he gets a [facility] and rather him know now supposed to be surprised when he gets up to do. The mother did tell him and I did also speak with him as well. Patient is understanding of this. I did speak with Dr. Darden, hospitalist at [facility], who agrees to accept the patient for transfer. - Vital Signs Vital signs: Temp Pulse Resp BP Pulse Ox 98.6 F 110 H 16 135/84 H 90 L 04/15/18 23:56 04/15/18 23:56 04/15/18 23:56 04/15/18 23:56 04/15/18 23:56 - Laboratory Result Diagrams: 04/16/18 01:19 04/16/18 01:19 Laboratory results interpreted by me: 04/16/18 04/16/18 01:19 01:19 RBC 2.93 L Hgb 10.1 L Hct 28.8 L MCV 98 H MCH 34.5 H RDW 28.5 H Abs Neuts (Manual) 0.0 L Abs Lymphs (Manual) 0.0 L Abs Monocytes (Manual) 0.0 L Retic Count (auto) 13.44 H Absolute Retic 0.393 H Sodium 145.7 H Glucose 113 H Total Bilirubin 2.3 H AST 79 H ALT 9 L Alkaline Phosphatase 134 H Total Protein 8.9 H - EKG Interpretation by Me Additional EKG results interpreted by me: 04/16/18 01:30 EKG is reviewed and interpreted by me. EKG shows normal sinus rhythm with rate of [address] segment elevation or depression. No ischemic T-wave inversions. NE interval, QRS duration, QTc intervals are within normal range. Old EKG for comparison is from April 13, 2018. Discharge - Discharge Clinical Impression: Sickle cell crisis, Hypoxemia Condition: Stable Disposition: [facility]
[2018-04-16 01:50] LABS: ABSOLUTE RETICS # 0.393 10^6/uL (0.028-0.122); HEMATOCRIT 28.8 % (37.9-51.0); HEMOGLOBIN 10.1 g/dL (13.5-17.0); MEAN CORPUSCULAR HEMOGLOBIN 34.5 pg (27.0-33.4); MEAN CORPUSCULAR VOLUME 98 fl (80-97); PLATELET COUNT 161 10^3/uL (150-450); RED BLOOD COUNT 2.93 10^6/uL (4.35-5.55); RED CELL DISTRIBUTION WIDTH 28.5 % (11.5-14.0); RETICULOCYTE COUNT (AUTO) 13.44 % (0.66-2.85)
[2018-04-16 02:01] LABS: VENOUS BLOOD BASE EXCESS 0.3 mmol/L; VENOUS BLOOD HCO3 24.9 mmol/L (20-32); VENOUS BLOOD PCO2 39.9 mmHg (35-63); VENOUS BLOOD PH 7.41 (7.30-7.42)
[2018-04-16 02:08] LABS: ALANINE AMINOTRANSFERASE 9 U/L (21-72); ALBUMIN 4.6 g/dL (3.5-5.0); ALKALINE PHOSPHATASE 134 U/L (38-126); ANION GAP 13 (5-19); ASPARTATE AMINO TRANSFERASE 79 U/L (17-59); BILIRUBIN,DIRECT 0.4 mg/dL (0.0-0.4); BILIRUBIN,TOTAL 2.3 mg/dL (0.2-1.3); BLOOD UREA NITROGEN 12 mg/dL (7-20); CARBON DIOXIDE 27 mmol/L (22-30); CHLORIDE 106 mmol/L (98-107); GLUCOSE 113 mg/dL (75-110); POTASSIUM 4.2 mmol/L (3.6-5.0); SODIUM 145.7 mmol/L (137-145); TOTAL PROTEIN 8.9 g/dL (6.3-8.2)
[2018-04-16 02:10] LABS: BASOPHILS % (MANUAL) 0 % (0-2); EOSINOPHILS % (MANUAL) 2 % (0-6); LYMPHOCYTES % (MANUAL) 43 % (13-45); MONOCYTES % (MANUAL) 8 % (3-13); NUCLEATED RED BLOOD CELLS 51 /100 WBC (0); SEGMENTED NEUTROPHILS % (MAN) 47 % (42-78); TOTAL CELLS COUNTED 100
[2018-04-16 02:16] LABS: ANISOCYTOSIS 4+; HYPOCHROMASIA 1+; POIKILOCYTOSIS 3+; POLYCHROMASIA 2+; SICKLE RED CELLS 3+; TARGET CELLS 1+
--- NOTE | 2018-04-16 02:16 | RADIOLOGY REPORT (SQ) ---
EXAM DESCRIPTION: XR CHEST 1 VIEW COMPLETED DATE/TME: 04/16/2018 01:01 CLINICAL HISTORY: 22 years, Male, hypoxia COMPARISON: 04/14/2018 NUMBER OF VIEWS: One TECHNIQUE: AP view of the chest LIMITATIONS: None. FINDINGS: The lungs are clear. The heart is normal in size. There is no pneumothorax or pleural effusion. There is no acute fracture IMPRESSION: No acute cardiopulmonary abnormality 2010 [employer]- All Rights Reserved
[2018-04-16 02:17] LABS: HOWELL-JOLLY BODIES PRESENT; PLATELET COMMENT ADEQUATE; PLATELET GIANT PRESENT; PLATELET LARGE PRESENT
[2018-04-16 02:18] LABS: WHITE BLOOD COUNT 6.6 10^3/uL (4.0-10.5)
--- NOTE | 2018-04-16 04:13 | RADIOLOGY REPORT (SQ) ---
EXAM DESCRIPTION: CT CHEST ANGIOGRAPHY WITHOUT THEN WITH IV CONTRAST COMPLETED DATE/TME: 04/16/2018 02:21 CLINICAL HISTORY: 22 years, Male, dyspnea COMPARISON: 02/21/2018 TECHNIQUE: Axial CT images of the chest were obtained after the injection of IV contrast. MPR and MIP reconstructions were performed. DLP 399 Images stored on PACS. All CT scanners at this facility use dose modulation, iterative reconstruction, and/or weight based dosing when appropriate to reduce radiation dose to as low as reasonably achievable (ALARA). [facility]: Dose Right [facility]: CareDose [facility]: Dose Right [facility]: Teradose 4D [facility]: [employer] LIMITATIONS: None. FINDINGS: Upper abdomen: Partially imaged. Thoracic aorta: Unremarkable. Heart: No right atrial thrombus. RV/LV ratio: Within normal limits. Pulmonary arteries: Technical: Adequate opacification to the level of the segmental vessels. Pulmonary embolus: No low-density filling defect to suggest acute PE. Overall embolic burden: None. Mediastinum: No pathologic sized middle mediastinal lymphadenopathy. Tracheobronchial tree: Unremarkable. Lungs: Lobar consolidation: Negative. Pleural effusion: Negative. Pneumothorax: Negative. Other: Negative. Bones: There is diffuse sclerosis of the bones, likely related to the patient's known history of sickle cell disease IMPRESSION: No CT evidence of acute PE. TECHNICAL DOCUMENTATION: Quality ID # [id number]: Final reports with documentation of one or more dose reduction techniques (e.g., Automated exposure control, adjustment of the mA and/or kV according to patient size, use of iterative reconstruction technique) 2010 [email or web address]- All Rights Reserved
--- NOTE | 2018-04-16 07:07 | EKG REPORT ---
SEVERITY:- NORMAL ECG - SINUS RHYTHM : Confirmed by: Howard Min MD 16-Apr-2018 07:06:43
[2018-04-16] MEDS: HYDROMORPHONE HCL INJ/PF 2 MG/ML AMPULE IV SCH ×4 (09:22→16:56)
[2018-04-16] MEDS ORDERED: DIPHENHYDRAMINE HCL 50 MG/ML VIAL IV SCH (12:00)
[2018-04-16 16:21] VITALS: BP 128/85
--- NOTE | 2018-04-16 17:14 | ER Document Report ---
Doctor's Note Notes: 04/16/18 17:14 EMS transport arrived. Patient sitting up in stretcher smiling without any distress. Stable for transfer.
== END 2018-04-16 17:20 | disposition short-term general hospital (02) ==
LOC: ER 23:48
DX: D57.00 Hb-SS disease with crisis, unspecified (principal); M25.561 Pain in right knee; M54.5 Low back pain; Z88.8 Allergy status to other drugs, medicaments and biological substances; Z91.018 Allergy to other foods; J45.909 Unspecified asthma, uncomplicated
CPT/HCPCS: 93005; 96376; 99285; 96361; 96374; 96375; 36415; 87040; 85025; 85045; 80053; 84484; 82803; 83605; 71045; 71275; 93010; J1200; J1170; J2405; J7030

== ENCOUNTER 2018-05-04 18:08 | Emergency (ER) | payer MEDICAID ==
[2018-05-04] MEDS ORDERED: HYDROMORPHONE HCL INJ/PF 2 MG/ML AMPULE IV ONE (19:20)
[2018-05-04] MEDS ORDERED: KETOROLAC TROMETHAMINE INJ/PF 30 MG/1 ML SDV IV ONE (19:20)
[2018-05-04] MEDS ORDERED: NORMAL SALINE 1000 ML 1,000 ML IV ONE (19:21)
[2018-05-04] MEDS ORDERED: ONDANSETRON HCL INJ/PF 4 MG/2 ML SDV IV ONE (19:21)
--- NOTE | 2018-05-04 19:23 | ER Document Report ---
ED Medical Screen (RME) - General Chief Complaint: Sickle Cell Crisis Stated Complaint: BACK PAIN Time Seen by Provider: 05/04/18 19:19 TRAVEL OUTSIDE OF THE [place] IN LAST 30 DAYS: No - HPI Notes: 05/04/18 19:22 Patient coming of sickle cell pain in his lower back similar to his pain before. - Related Data Allergies/Adverse Reactions: Coconut * [Coconut] Allergy (Mild, Verified 04/11/18 15:13) transpore tape Allergy (Mild, Uncoded 04/11/18 15:13) Hives Past Medical History - Social History Family history: None Pulmonary Medical History: Reports: Hx Asthma, Hx Pneumonia Renal/ Medical History: Denies: Hx Peritoneal Dialysis Psychiatric Medical History: Denies: Hx Depression Past Surgical History: Reports: Hx Abdominal Surgery - Gallstones removal, Hx Cholecystectomy, Hx Orthopedic Surgery - Fluid drained from right foot, Hx Vascular Surgery - Port placement - Immunizations Immunizations up to date: Yes Hx Diphtheria, Pertussis, Tetanus Vaccination: Yes History of Influenza Vaccine for 06/2017 - 10/2017 Season: Yes Influenza Administration Date for 06/2017 - 10/2017 Season: 06/02/17 Review of Systems - Review of Systems Constitutional: Other - sickle cell pain Physical Exam - Vital signs Vitals: Temp Pulse Resp BP Pulse Ox 97.9 F 107 H 14 131/87 H 98 05/04/18 18:11 05/04/18 18:11 05/04/18 18:11 05/04/18 18:11 05/04/18 18:11 - HEENT Head: Normocephalic Eyes: Normal Conjunctiva: Normal - Cardiovascular Rhythm: Regular Heart sounds: Normal auscultation Course - Vital Signs Vital signs: Temp Pulse Resp BP Pulse Ox 97.9 F 107 H 14 131/87 H 98 05/04/18 18:11 05/04/18 18:11 05/04/18 18:11 05/04/18 18:11 05/04/18 18:11 Doctor's Discharge - Discharge Referrals: DEUCE MOHAN PA-C [Primary Care Provider] - Follow up as needed
[2018-05-04 20:01] LABS: HEMATOCRIT 30.4 % (37.9-51.0); HEMOGLOBIN 10.5 g/dL (13.5-17.0); MEAN CORPUSCULAR HEMOGLOBIN 33.6 pg (27.0-33.4); MEAN CORPUSCULAR HGB CONC 34.5 g/dL (32.0-36.0); PLATELET COUNT 306 10^3/uL (150-450); RED BLOOD COUNT 3.12 10^6/uL (4.35-5.55); RED CELL DISTRIBUTION WIDTH 31.3 % (11.5-14.0); WHITE BLOOD COUNT 9.6 10^3/uL (4.0-10.5)
[2018-05-04 20:11] LABS: MEAN CORPUSCULAR VOLUME 98 fl (80-97)
[2018-05-04 20:13] LABS: ANION GAP 12 (5-19); BLOOD UREA NITROGEN 12 mg/dL (7-20); CALCIUM 9.3 mg/dL (8.4-10.2); CARBON DIOXIDE 26 mmol/L (22-30); CHLORIDE 108 mmol/L (98-107); GLUCOSE 92 mg/dL (75-110); POTASSIUM 4.4 mmol/L (3.6-5.0); SODIUM 145.6 mmol/L (137-145)
--- NOTE | 2018-05-04 20:42 | ER Document Report ---
ED General - General Chief Complaint: Sickle Cell Crisis Stated Complaint: BACK PAIN Time Seen by Provider: 05/04/18 19:19 Notes: Patient is a 22-year-old male with a past medical history of sickle cell anemia who presents with an acute pain crisis in his low back and right knee. Patient reports that the symptoms started approximately 12 hours ago and has been constant since that time. The patient reports that this feels identical to his prior sickle cell crises. He denies any associated fever, headache, cough or shortness of breath. He denies that the symptoms feel similar to when he has had acute chest in the past. He has not contacted his psychiatric nursing aide or primary doctor regarding today's concerns. Nothing has been noted to improve or worsen his symptoms. TRAVEL OUTSIDE OF THE [place] IN LAST 30 DAYS: No - Related Data Allergies/Adverse Reactions: Coconut * [Coconut] Allergy (Mild, Verified 04/11/18 15:13) transpore tape Allergy (Mild, Uncoded 04/11/18 15:13) Hives Past Medical History - General Information source: Patient - Social History Smoking Status: Never Smoker Frequency of alcohol use: None Drug Abuse: None Lives with: Spouse/Significant other Family History: Reviewed & Not Pertinent, Arthritis, DM, Hypertension, Other - Sickle cell trait both parents and asthma Patient has suicidal ideation: No Patient has homicidal ideation: No Pulmonary Medical History: Reports: Hx Asthma, Hx Pneumonia Renal/ Medical History: Denies: Hx Peritoneal Dialysis Psychiatric Medical History: Denies: Hx Depression Past Surgical History: Reports: Hx Abdominal Surgery - Gallstones removal, Hx Cholecystectomy, Hx Orthopedic Surgery - Fluid drained from right foot, Hx Vascular Surgery - Port placement - Immunizations Immunizations up to date: Yes Hx Diphtheria, Pertussis, Tetanus Vaccination: Yes Hx Pneumococcal Vaccination: 01/15/13 Review of Systems - Review of Systems Notes: Constitutional: Negative for fever. HENT: Negative for sore throat. Eyes: Negative for visual changes. Cardiovascular: Negative for chest pain. Respiratory: Negative for shortness of breath. Gastrointestinal: Negative for abdominal pain, vomiting or diarrhea. Genitourinary: Negative for dysuria. Musculoskeletal: Positive for low back pain and right knee pain Skin: Negative for rash. Neurological: Negative for headaches, weakness or numbness. 10 point ROS negative except as marked above and in HPI. Physical Exam - Vital signs Vitals: Temp Pulse Resp BP Pulse Ox 97.9 F 107 H 14 131/87 H 98 05/04/18 18:11 05/04/18 18:11 05/04/18 18:11 05/04/18 18:11 05/04/18 18:11 Interpretation: Normal Notes: PHYSICAL EXAMINATION: GENERAL: Well-appearing, well-nourished and in no acute distress. HEAD: Atraumatic, normocephalic. EYES: Pupils equal round and reactive to light, extraocular movements intact, sclera anicteric, conjunctiva are normal. ENT: nares patent, oropharynx clear without exudates. Moist mucous membranes. NECK: Normal range of motion, supple without lymphadenopathy LUNGS: Breath sounds clear to auscultation bilaterally and equal. No wheezes rales or rhonchi. HEART: Regular rate and rhythm without murmurs ABDOMEN: Soft, nontender, normoactive bowel sounds. No guarding, no rebound. No masses appreciated. EXTREMITIES: Normal range of motion, no pitting or edema. No swelling or erythema of the right knee. No joint effusion. No cyanosis. Back: No midline spinal tenderness, step-offs or deformities. No point tenderness in the spine. NEUROLOGICAL: No focal neurological deficits. Moves all extremities spontaneously and on command. PSYCH: Normal mood, normal affect. SKIN: Warm, Dry, normal turgor, no rashes or lesions noted. Course - Re-evaluation Re-evalutation: 05/04/18 20:40 Presentation is most consistent with an uncomplicated sickle cell pain crisis. Patient has no evidence of an aplastic crisis on labs. Clinical history, exam and vitals are not consistent with acute chest syndrome. Vitals have remained within normal limits here in the emergency department. Patient's pain has been able to be controlled using IV analgesia. The patient is agreeable to discharge home at this time. I recommended that they follow closely with their primary psychiatric nursing aide. Return precautions have been reviewed and discussed and patient has verbalized indications to return to the emergency department. - Vital Signs Vital signs: Temp Pulse Resp BP Pulse Ox 97.9 F 85 16 128/72 H 100 05/04/18 18:11 05/04/18 23:01 05/04/18 23:01 05/04/18 23:01 05/04/18 23:01 - Laboratory Result Diagrams: 05/04/18 19:39 05/04/18 19:39 Laboratory results interpreted by me: 05/04/18 05/04/18 19:39 19:39 RBC 3.12 L Hgb 10.5 L Hct 30.4 L MCV 98 H D MCH 33.6 H RDW 31.3 H Retic Count (auto) 14.71 H Absolute Retic 0.466 H Sodium 145.6 H Chloride 108 H Lactate Dehydrogenase 666 H Discharge - Discharge Clinical Impression: Sickle cell pain crisis Right knee pain Qualifiers: Chronicity: acute Qualified Code(s): M25.561 - Pain in right knee Low back pain Qualifiers: Chronicity: acute Back pain laterality: bilateral Sciatica presence: without sciatica Qualified Code(s): M54.5 - Low back pain Condition: Good Disposition: HOME, SELF-CARE Additional Instructions: You were seen today for sickle cell pain crisis. Please follow-up with your psychiatric nursing aide. Returning to the ED if you have worsening pain, fever greater than 100.4, shortness of breath, persistent vomiting, or any other symptoms that are concerning to you. Referrals: DEUCE MOHAN PA-C [Primary Care Provider] - Follow up as needed
[2018-05-04 20:52] LABS: ABSOLUTE LYMPHOCYTES# (MANUAL) 3.6 10^3/uL (0.5-4.7); ABSOLUTE MONOCYTES # (MANUAL) 0.5 10^3/uL (0.1-1.4); ABSOLUTE NEUTROPHILS# (MANUAL) 5.5 10^3/uL (1.7-8.2); BASOPHILS % (MANUAL) 0 % (0-2); EOSINOPHILS % (MANUAL) 1 % (0-6); LYMPHOCYTES % (MANUAL) 36 % (13-45); MONOCYTES % (MANUAL) 5 % (3-13); POLYCHROMASIA 2+; SEGMENTED NEUTROPHILS % (MAN) 57 % (42-78); TOTAL CELLS COUNTED 100; TOXIC GRANULATION 1+
[2018-05-04 20:53] LABS: ANISOCYTOSIS 4+
[2018-05-04 21:00] LABS: PLATELET COMMENT INCREASED; SICKLE RED CELLS 4+
[2018-05-04] MEDS: HYDROMORPHONE HCL INJ/PF 2 MG/ML AMPULE IV PRN ×2 (21:01→22:15)
[2018-05-04 21:18] LABS: ABSOLUTE RETICS # 0.466 10^6/uL (0.028-0.122); RETICULOCYTE COUNT (AUTO) 14.71 % (0.66-2.85)
[2018-05-04 23:04] VITALS: BP 128/72
[2018-05-06 07:57] LABS: NUCLEATED RED BLOOD CELLS 47 /100 WBC (0)
== END 2018-05-04 23:05 | disposition home or self-care (01) ==
LOC: ER 18:08
DX: D57.00 Hb-SS disease with crisis, unspecified (principal); M25.561 Pain in right knee; M54.5 Low back pain; J45.909 Unspecified asthma, uncomplicated; Z91.018 Allergy to other foods; Z88.8 Allergy status to other drugs, medicaments and biological substances
CPT/HCPCS: 96376; 99284; 96374; 96375; 36415; 83615; 85025; 85045; 80048; J1885; J1170; J2405; J7030

== ENCOUNTER 2018-05-06 18:06 | Emergency (ER) | payer MEDICAID ==
[2018-05-06] MEDS ORDERED: NORMAL SALINE 1000 ML 1,000 ML IV ONE (20:10)
[2018-05-06] MEDS ORDERED: MORPHINE SULFATE 10 MG/ML INJ IV ONE (20:11)
[2018-05-06] MEDS ORDERED: ONDANSETRON HCL INJ/PF 4 MG/2 ML SDV IV ONE (20:11)
--- NOTE | 2018-05-06 20:14 | ER Document Report ---
ED Medical Screen (RME) - General Chief Complaint: Sickle Cell Crisis Stated Complaint: BACK PAIN Time Seen by Provider: 05/06/18 20:04 Notes: Patient is a 22-year-old male with sickle cell disease that presents to the emergency department for chief complaint of back pain, knee pain, nausea and vomiting. Patient recently admitted and discharged for presumed infection, on IV antibiotics with Rocephin, with a PICC line. Today started having vomiting and chills and pain in his back and knees seem to be worse today. ROS: GENERAL: Denies fever or chills CV: Denies chest pain PHYSICAL EXAMINATION: Vital signs reviewed. GENERAL: Well-appearing, well-nourished and in no acute distress. HEAD: Atraumatic, normocephalic. EYES: Pupils equal round extraocular movements intact, conjunctiva are normal. ENT: Nares patent NECK: Normal range of motion CV: Heart rate tachycardic and rhythm LUNGS: No respiratory distress Musculoskeletal: Normal range of motion, tenderness over the right knee, and right lumbar paraspinal region. NEUROLOGICAL: Normal speech PSYCH: Normal mood, normal affect. MDM: Patient seen and examined for rapid initial assessment. Vital signs reviewed. A comprehensive ED assessment and evaluation of the patient, analysis of test results and completion of the medical decision making process will be conducted by additional ED providers. *Note is created using voice recognition software and may contain spelling, syntax or grammatical errors. TRAVEL OUTSIDE OF THE [place] IN LAST 30 DAYS: No - Related Data Allergies/Adverse Reactions: Coconut * [Coconut] Allergy (Mild, Verified 04/11/18 15:13) transpore tape Allergy (Mild, Uncoded 04/11/18 15:13) Hives Past Medical History - Social History Chew tobacco use (# tins/day): No Frequency of alcohol use: Rare Drug Abuse: None Family history: None Pulmonary Medical History: Reports: Hx Asthma, Hx Pneumonia Renal/ Medical History: Denies: Hx Peritoneal Dialysis Psychiatric Medical History: Denies: Hx Depression Past Surgical History: Reports: Hx Abdominal Surgery - Gallstones removal, Hx Cholecystectomy, Hx Orthopedic Surgery - Fluid drained from right foot, Hx Vascular Surgery - Port placement - Immunizations Immunizations up to date: Yes Hx Diphtheria, Pertussis, Tetanus Vaccination: Yes History of Influenza Vaccine for 06/2017 - 10/2017 Season: Yes Influenza Administration Date for 06/2017 - 10/2017 Season: 06/02/17 Physical Exam - Vital signs Vitals: Temp Pulse Resp BP Pulse Ox 98.9 F 109 H 15 132/87 H 95 05/06/18 19:30 05/06/18 19:30 05/06/18 19:30 05/06/18 19:30 05/06/18 19:30 Course - Vital Signs Vital signs: Temp Pulse Resp BP Pulse Ox 98.9 F 109 H 15 132/87 H 95 05/06/18 19:30 05/06/18 19:30 05/06/18 19:30 05/06/18 19:30 05/06/18 19:30 Doctor's Discharge - Discharge Referrals: VIDA CASTANON MD [Primary Care Provider] - Follow up as needed
[2018-05-06 21:55] LABS: ABSOLUTE RETICS # 0.431 10^6/uL (0.028-0.122); HEMATOCRIT 29.9 % (37.9-51.0); HEMOGLOBIN 10.1 g/dL (13.5-17.0); MEAN CORPUSCULAR HEMOGLOBIN 33.5 pg (27.0-33.4); MEAN CORPUSCULAR HGB CONC 33.8 g/dL (32.0-36.0); MEAN CORPUSCULAR VOLUME 99 fl (80-97); PLATELET COUNT 251 10^3/uL (150-450); RED BLOOD COUNT 3.02 10^6/uL (4.35-5.55); RED CELL DISTRIBUTION WIDTH 31.2 % (11.5-14.0); RETICULOCYTE COUNT (AUTO) 14.28 % (0.66-2.85); WHITE BLOOD COUNT 11.4 10^3/uL (4.0-10.5)
[2018-05-06 21:58] LABS: INTERNATIONAL RATION (INR) 1.12
[2018-05-06 22:04] LABS: ALANINE AMINOTRANSFERASE 12 U/L (21-72); ALBUMIN 4.7 g/dL (3.5-5.0); ALKALINE PHOSPHATASE 123 U/L (38-126); ANION GAP 10 (5-19); ASPARTATE AMINO TRANSFERASE 65 U/L (17-59); BILIRUBIN,DIRECT 0.4 mg/dL (0.0-0.4); BILIRUBIN,TOTAL 2.3 mg/dL (0.2-1.3); BLOOD UREA NITROGEN 18 mg/dL (7-20); CALCIUM 9.6 mg/dL (8.4-10.2); CARBON DIOXIDE 24 mmol/L (22-30); CHLORIDE 108 mmol/L (98-107); GLUCOSE 89 mg/dL (75-110); POTASSIUM 4.9 mmol/L (3.6-5.0); SODIUM 141.9 mmol/L (137-145); TOTAL PROTEIN 8.7 g/dL (6.3-8.2)
[2018-05-06 22:13] LABS: ABSOLUTE LYMPHOCYTES# (MANUAL) 0.9 10^3/uL (0.5-4.7); ABSOLUTE MONOCYTES # (MANUAL) 0.5 10^3/uL (0.1-1.4); ABSOLUTE NEUTROPHILS# (MANUAL) 9.9 10^3/uL (1.7-8.2); BASOPHILS % (MANUAL) 0 % (0-2); EOSINOPHILS % (MANUAL) 1 % (0-6); LYMPHOCYTES % (MANUAL) 8 % (13-45); MONOCYTES % (MANUAL) 4 % (3-13); NUCLEATED RED BLOOD CELLS 22 /100 WBC (0); SEGMENTED NEUTROPHILS % (MAN) 87 % (42-78); TOTAL CELLS COUNTED 100
[2018-05-06 22:18] LABS: ANISOCYTOSIS 4+; OVALOCYTES SLIGHT; POIKILOCYTOSIS 1+; POLYCHROMASIA 1+; SCHISTOCYTES SLIGHT; SICKLE RED CELLS 1+
[2018-05-06 22:19] LABS: PLATELET COMMENT ADEQUATE
[2018-05-06] MEDS ORDERED: HYDROMORPHONE HCL INJ/PF 2 MG/ML AMPULE IV ONE (23:20)
[2018-05-06] MEDS ORDERED: DIPHENHYDRAMINE HCL 50 MG/ML VIAL IV ONE (23:20)
[2018-05-07] MEDS ORDERED: HYDROMORPHONE HCL INJ/PF 2 MG/ML AMPULE IV ONE ×2 (00:28→01:57)
--- NOTE | 2018-05-07 00:55 | ER Document Report ---
ED General - General Chief Complaint: Sickle Cell Crisis Stated Complaint: BACK PAIN Time Seen by Provider: 05/06/18 20:04 TRAVEL OUTSIDE OF THE [place] IN LAST 30 DAYS: No - HPI Patient complains to provider of: Sickle cell pain Onset: Other - with a past medical history of sickle cell anemia who presents with an acute pain crisis in his low back and right knee. Patient reports that the symptoms started approximately 12 hours ago and has been constant since that time. The patient reports that this feels identical to his prior sickle cell crises. He denies any associated fever, headache, cough or shortness of breath. He denies that the symptoms feel similar to when he has had acute chest in the past. He has not contacted his supervisor cold rolling or primary doctor regarding today's concerns. Nothing has been noted to improve or worsen his symptoms. - Related Data Allergies/Adverse Reactions: Coconut * [Coconut] Allergy (Mild, Verified 04/11/18 15:13) transpore tape Allergy (Mild, Uncoded 04/11/18 15:13) Hives Past Medical History - General Information source: Patient - Social History Smoking Status: Never Smoker Chew tobacco use (# tins/day): No Frequency of alcohol use: Rare Drug Abuse: None Family History: Reviewed & Not Pertinent, Arthritis, DM, Hypertension, Other - Sickle cell trait both parents and asthma Patient has suicidal ideation: No Patient has homicidal ideation: No Pulmonary Medical History: Reports: Hx Asthma, Hx Pneumonia Renal/ Medical History: Denies: Hx Peritoneal Dialysis Psychiatric Medical History: Denies: Hx Depression Past Surgical History: Reports: Hx Abdominal Surgery - Gallstones removal, Hx Cholecystectomy, Hx Orthopedic Surgery - Fluid drained from right foot, Hx Vascular Surgery - Port placement - Immunizations Immunizations up to date: Yes Hx Diphtheria, Pertussis, Tetanus Vaccination: Yes Hx Pneumococcal Vaccination: 01/15/13 Review of Systems - Review of Systems -: Yes All other systems reviewed and negative Physical Exam - Vital signs Vitals: Temp Pulse Resp BP Pulse Ox 98.9 F 109 H 15 132/87 H 95 05/06/18 19:30 05/06/18 19:30 05/06/18 19:30 05/06/18 19:30 05/06/18 19:30 - General General appearance: Appears well In distress: None - HEENT Head: Normocephalic Eyes: Normal Conjunctiva: Normal Cornea: Normal Extraocular movements intact: Yes Eyelashes: Normal Pupils: PERRL - Respiratory Respiratory status: No respiratory distress Chest status: Nontender Breath sounds: Normal Chest palpation: Normal - Cardiovascular Rhythm: Regular Heart sounds: Normal auscultation Murmur: No - Abdominal Inspection: Normal Distension: No distension Tenderness: Nontender - Back Back: Normal - Extremities General upper extremity: Normal inspection, Nontender, Normal strength, Normal temperature General lower extremity: Normal inspection, Tender, Normal strength, Normal temperature - Neurological Neuro grossly intact: Yes Cognition: Normal Orientation: AAOx4 Rodo Coma Scale Eye Opening: Spontaneous Rodo Coma Scale Verbal: Oriented Rodo Coma Scale Motor: Obeys Commands Rodo Coma Scale Total: 15 Course - Re-evaluation Re-evalutation: 05/07/18 07:32 Presentation is most consistent with an uncomplicated sickle cell pain crisis. Patient has no evidence of an aplastic crisis on labs. Clinical history, exam and vitals are not consistent with acute chest syndrome. Vitals have remained within normal limits here in the emergency department. Patient's pain has been able to be controlled using IV analgesia. The patient is agreeable to discharge home at this time. I recommended that they follow closely with their primary supervisor cold rolling. Return precautions have been reviewed and discussed and patient has verbalized indications to return to the emergency department. - Vital Signs Vital signs: Temp Pulse Resp BP Pulse Ox 98.9 F 101 H 18 126/81 H 96 05/06/18 19:30 05/07/18 01:10 05/07/18 03:01 05/07/18 03:01 05/07/18 03:01 - Laboratory Result Diagrams: 05/06/18 21:21 05/06/18 21:21 Laboratory results interpreted by me: 05/06/18 05/06/18 21:21 21:21 WBC 11.4 H RBC 3.02 L Hgb 10.1 L Hct 29.9 L MCV 99 H MCH 33.5 H RDW 31.2 H Seg Neuts % (Manual) 87 H Lymphocytes % (Manual) 8 L Abs Neuts (Manual) 9.9 H Retic Count (auto) 14.28 H Absolute Retic 0.431 H Chloride 108 H Total Bilirubin 2.3 H AST 65 H ALT 12 L Total Protein 8.7 H Discharge - Discharge Clinical Impression: Sickle cell crisis Condition: Good Disposition: HOME, SELF-CARE Instructions: Sickle Cell Crisis ([facility]) Referrals: VIDA CASTANON MD [Primary Care Provider] - Follow up as needed
[2018-05-07] MEDS ORDERED: DIPHENHYDRAMINE HCL 50 MG/ML VIAL IV ONE (01:57)
[2018-05-07 03:15] VITALS: BP 126/81
--- NOTE | 2018-05-07 07:29 | EKG REPORT ---
SEVERITY:- ABNORMAL ECG - SINUS RHYTHM CONSIDER LEFT VENTRICULAR HYPERTROPHY : Confirmed by: Howard Min MD 07-May-2018 07:28:37
== END 2018-05-07 03:45 | disposition home or self-care (01) ==
LOC: ER 18:06
DX: D57.00 Hb-SS disease with crisis, unspecified (principal); M54.5 Low back pain; M25.561 Pain in right knee; J45.909 Unspecified asthma, uncomplicated; Z91.018 Allergy to other foods; Z88.8 Allergy status to other drugs, medicaments and biological substances
CPT/HCPCS: 93005; 96376; 99284; 96361; 96374; 96375; 36415; 87040; 85025; 85610; 85045; 80053; 83605; 93010; J1200 ×2; J2270; J1170 ×2; J2405; J7030

== ENCOUNTER 2018-05-09 01:22 | Inpatient (IN) | payer MEDICAID ==
[2018-05-09] MEDS ORDERED: DIPHENHYDRAMINE HCL 25 MG CAPSULE PO ONE (02:26)
[2018-05-09] MEDS ORDERED: ONDANSETRON HCL INJ/PF 4 MG/2 ML SDV IV ONE (02:26)
[2018-05-09] MEDS: HYDROMORPHONE HCL INJ/PF 2 MG/ML AMPULE IV PRN ×6 (02:44→23:54)
--- NOTE | 2018-05-09 02:52 | ER Document Report ---
ED General - General TRAVEL OUTSIDE OF THE [place] 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 He describes this as a aching, throbbing, constant pain. Nothing improves the pain. Nothing worsens the pain. He states that this does feel very similar to prior episodes of sickle cell crises that he has had in the past. The patient was recently started on cefazolin due to concern of bacteremia and was taken off of his hydroxyurea. He reports that this feels very similar in terms of to when he has been taken off hydroxyurea in the past. He states it does not feel like when he has had acute chest syndrome in the past. However, patient is noted to be hypoxic in triage which is not his baseline. (ANGELA ROMANO) - Related Data Allergies/Adverse Reactions: Coconut * [Coconut] Allergy (Mild, Verified 04/11/18 15:13) transpore tape Allergy (Mild, Uncoded 04/11/18 15:13) Hives Past Medical History - General Information source: Patient - Social History Smoking Status: Never Smoker Frequency of alcohol use: None Drug Abuse: None Lives with: Spouse/Significant other Family History: Reviewed & Not Pertinent, Arthritis, DM, Hypertension, Other - Sickle cell trait both parents and asthma Pulmonary Medical History: Reports: Hx Asthma, Hx Pneumonia Renal/ Medical History: Denies: Hx Peritoneal Dialysis Psychiatric Medical History: Denies: Hx Depression Past Surgical History: Reports: Hx Abdominal Surgery - Gallstones removal, Hx Cholecystectomy, Hx Orthopedic Surgery - Fluid drained from right foot, Hx Vascular Surgery - Port placement - Immunizations Immunizations up to date: Yes Hx Diphtheria, Pertussis, Tetanus Vaccination: Yes Hx Pneumococcal Vaccination: 01/15/13 <ANEGLA ROMANO - Last Filed: 05/09/18 03:31> Review of Systems <ANGELA ROMANO - Last Filed: 05/09/18 03:31> <JUSTYNA COLON - Last Filed: 05/09/18 08:02> <MINNA GIBSON - Last Filed: 05/09/18 08:19> - Review of Systems Notes: Constitutional: Negative for fever. HENT: Negative for sore throat. Eyes: Negative for visual changes. Cardiovascular: Negative for chest pain. Respiratory: Negative for shortness of breath. Gastrointestinal: Negative for abdominal pain, vomiting or diarrhea. Genitourinary: Negative for dysuria. Musculoskeletal: Positive for mid back pain Skin: Negative for rash. Neurological: Negative for headaches, weakness or numbness. 10 point ROS negative except as marked above and in HPI. (ANGELA ROMANO) Physical Exam - Vital signs Interpretation: Tachycardic, Hypoxic <ANGELA ROMANO - Last Filed: 05/09/18 03:31> <JUSTYNA COLON - Last Filed: 05/09/18 08:02> <MINNA GIBSON - Last Filed: 05/09/18 08:19> - Vital signs Vitals: Temp Pulse Resp BP Pulse Ox 97.8 F 111 H 18 135/90 H 90 L 05/09/18 01:28 05/09/18 01:28 05/09/18 01:28 05/09/18 01:28 05/09/18 01:28 Notes: PHYSICAL EXAMINATION: GENERAL: Well-appearing, well-nourished and in no acute distress. HEAD: Atraumatic, normocephalic. EYES: Pupils equal round and reactive to light, extraocular movements intact, sclera anicteric, conjunctiva are normal. ENT: nares patent, oropharynx clear without exudates. Moist mucous membranes. NECK: Normal range of motion, supple without lymphadenopathy LUNGS: Breath sounds clear to auscultation bilaterally and equal. No wheezes rales or rhonchi. HEART: Regular rate and rhythm without murmurs ABDOMEN: Soft, nontender, normoactive bowel sounds. No guarding, no rebound. No masses appreciated. EXTREMITIES: Normal range of motion, no pitting or edema. No cyanosis. Back: No midline spinal tenderness, step-offs or deformities NEUROLOGICAL: No focal neurological deficits. Moves all extremities spontaneously and on command. PSYCH: Normal mood, normal affect. SKIN: Warm, Dry, normal turgor, no rashes or lesions noted. (ANGELA ROMANO) Course <ANGELA ROMANO - Last Filed: 05/09/18 03:31> - Laboratory Result Diagrams: 05/09/18 03:45 05/09/18 03:45 <ELIZABETHJUSTYNA AMAYA - Last Filed: 05/09/18 08:02> - Laboratory Result Diagrams: 05/09/18 03:45 05/09/18 03:45 - Diagnostic Test Radiology reviewed: Reports reviewed <MINNA GIBSON - Last Filed: 05/09/18 08:19> - Re-evaluation Re-evalutation: 05/09/18 02:49 Patient presents complaining of 2 days of progressively worsening back pain typical for his sickle cell pain crises. However, patient is noted to be hypoxic today to 90% on room air which is not all his baseline. The last time he had a similar episode of hypoxia was admitted April when he was found to have probable acute chest syndrome and required transfer. The patient is again noted to be tachycardic which is typical for his presentations of sickle cell crises. Will proceed with labs, chest x-ray, pain control, and patient will very likely require transfer to a higher level of care due to concerns of acute chest. 05/09/18 03:31 Patient continues to be persistently hypoxic to 90-91% on room air. Requires 3 L by nasal cannula to maintain saturations of 95%. At this point despite a negative chest x-ray I am concerned the patient has developed acute chest syndrome in the context of being off hydroxyurea. He will require transfer to a tertiary care center. I will place a call to [place] and request transfer. ( ANGELA ROMANO) 05/09/18 04:40 Called and spoke with the transfer center, pending call back. CBC shows no leukocytosis, hemoglobin of 9, there is elevation of reticulocytes. Chemistry generally unremarkable. At bedside patient is 96% on 3 L nasal cannula, he is mildly tachycardic at 109, he is complaining of pain at this time, he denies shortness of breath. 05/09/18 05:[address] Mclean, internal medicine at [facility], he states they would be happy to accept the patient, however unfortunately at this time they are on diversion and did not have any beds. He also recommends a CTA of the chest due to sickle cell hx, hypoxia, tachycardia, no infiltrate on chest x-ray. 05/09/18 Spoke with patient about due to being on diversion. He requests staying here if possible. CTA of the chest with no acute findings, no pulmonary emboli. We will discussed with Dr. Stanton, patient's provider for possible admission here. He follows with local oncology/hematology Dr. Carlos. 05/09/18 08:02 Still pending call back from Dr. Stanton. Patient will be given additional medications for pain on request. Introduced to Cris Gibson APC at bedside pending possible admission versus transfer. Patient is hoping to stay. Patient was also discussed with Dr. Umanzor. (JUSTYNA COLON) 05/09/18 08:[address] Stanton per patient request. Dr. Stanton is agreeable with admitting patient to telemetry floor at this time. Patient updated and is agreeable with this plan of care. (MINNA GIBSON) - Vital Signs Vital signs: Temp Pulse Resp BP Pulse Ox 97.8 F 111 H 16 135/94 H 98 05/09/18 01:28 05/09/18 01:28 05/09/18 06:46 05/09/18 06:46 05/09/18 06:46 - Laboratory Laboratory results interpreted by me: 05/09/18 05/09/18 03:45 03:45 RBC 2.57 L Hgb 9.0 L Hct 24.6 L MCH 35.0 H MCHC 36.7 H RDW 30.4 H Monocytes % (Manual) 18 H Abs Monocytes (Manual) 1.7 H Retic Count (auto) 12.73 H Absolute Retic 0.327 H Chloride 108 H 05/09/18 08:18 Labs- Entire Visit 05/09/18 05/09/18 03:45 03:45 WBC 8.5 RBC 2.57 L Hgb 9.0 L Hct 24.6 L MCV 96 MCH 35.0 H MCHC 36.7 H RDW 30.4 H Plt Count 221 Total Counted 100 Seg Neuts % (Manual) 46 Lymphocytes % (Manual) 35 Monocytes % (Manual) 18 H Eosinophils % (Manual) 1 Basophils % (Manual) 0 Abs Neuts (Manual) 4.3 Abs Lymphs (Manual) 3.3 Abs Monocytes (Manual) 1.7 H Absolute Eos (Manual) 0.1 Abs Basophils (Manual) 0.0 Nucleated RBCs 28 Toxic Vacuolation PRESENT Platelet Comment ADEQUATE Polychromasia 1+ Poikilocytosis 2+ Anisocytosis 4+ Sickle Cells 2+ Target Cells SLIGHT [place] Bodies PRESENT Retic Count (auto) 12.73 H Absolute Retic 0.327 H Sodium 143.0 Potassium 4.4 Chloride 108 H Carbon Dioxide 27 Anion Gap 8 BUN 16 Creatinine 0.77 Est GFR ( Amer) > 60 Est GFR (Non-Af Amer) > 60 Glucose 105 Calcium 9.0 (MINNA GIBSON) Discharge <ANGELA ROMANO - Last Filed: 05/09/18 03:31> <JUSTYNA COLON - Last Filed: 05/09/18 08:02> - Discharge Admitting Provider[facility] Admitted: Telemetry <MINNA GIBSON - Last Filed: 05/09/18 08:19> - Discharge Clinical Impression: Sickle cell pain crisis, Hypoxia Back pain Qualifiers: Back pain location: back pain in unspecified location Chronicity: acute Back pain laterality: unspecified Qualified Code(s): M54.9 - Dorsalgia, unspecified Condition: Fair Disposition: ADMITTED INPATIENT Referrals: VIDA CASTANON MD [Primary Care Provider] - Follow up as needed
--- NOTE | 2018-05-09 03:09 | RADIOLOGY REPORT (SQ) ---
EXAM DESCRIPTION: XR CHEST 1 VIEW COMPLETED DATE/TME: 05/09/2018 02:44 CLINICAL HISTORY: 22 years Male, hypoxia, sob COMPARISON: 8.15.18 NUMBER OF VIEWS/TECHNIQUE: 1/AP FINDINGS: Adequate lung volume, clear parenchyma, normal cardiac silhouette, and intact bony thorax. Left PICC tip at the cavoatrial junction. Right upper abdominal clips. IMPRESSION: No acute cardiopulmonary findings.
[2018-05-09 03:59] LABS: ABSOLUTE RETICS # 0.327 10^6/uL (0.028-0.122); HEMATOCRIT 24.6 % (37.9-51.0); MEAN CORPUSCULAR HGB CONC 36.7 g/dL (32.0-36.0); MEAN CORPUSCULAR VOLUME 96 fl (80-97); PLATELET COUNT 221 10^3/uL (150-450); RED BLOOD COUNT 2.57 10^6/uL (4.35-5.55); RED CELL DISTRIBUTION WIDTH 30.4 % (11.5-14.0); RETICULOCYTE COUNT (AUTO) 12.73 % (0.66-2.85)
[2018-05-09 04:19] LABS: ANION GAP 8 (5-19); BLOOD UREA NITROGEN 16 mg/dL (7-20); CARBON DIOXIDE 27 mmol/L (22-30); CHLORIDE 108 mmol/L (98-107); GLUCOSE 105 mg/dL (75-110); POTASSIUM 4.4 mmol/L (3.6-5.0)
[2018-05-09 04:22] LABS: ABSOLUTE LYMPHOCYTES# (MANUAL) 3.3 10^3/uL (0.5-4.7); ABSOLUTE MONOCYTES # (MANUAL) 1.7 10^3/uL (0.1-1.4); ABSOLUTE NEUTROPHILS# (MANUAL) 4.3 10^3/uL (1.7-8.2); BASOPHILS % (MANUAL) 0 % (0-2); EOSINOPHILS % (MANUAL) 1 % (0-6); LYMPHOCYTES % (MANUAL) 35 % (13-45); MONOCYTES % (MANUAL) 18 % (3-13); NUCLEATED RED BLOOD CELLS 28 /100 WBC (0); SEGMENTED NEUTROPHILS % (MAN) 46 % (42-78); TOTAL CELLS COUNTED 100
[2018-05-09 04:26] LABS: ANISOCYTOSIS 4+; HOWELL-JOLLY BODIES PRESENT; PLATELET COMMENT ADEQUATE; POIKILOCYTOSIS 2+; POLYCHROMASIA 1+; SICKLE RED CELLS 2+; TARGET CELLS SLIGHT; TOXIC VACUOLATION PRESENT
[2018-05-09 04:27] LABS: WHITE BLOOD COUNT 8.5 10^3/uL (4.0-10.5)
[2018-05-09] MEDS ORDERED: DIPHENHYDRAMINE HCL 50 MG/ML VIAL IV ONE (04:43)
--- NOTE | 2018-05-09 07:20 | RADIOLOGY REPORT (SQ) ---
EXAM DESCRIPTION: CT CHEST ANGIOGRAPHY WITH IV CONTRAST COMPLETED DATE/TME: 05/09/2018 05:42 CLINICAL HISTORY: hypoxia, sickle cell COMPARISON: 04/16/2018 TECHNIQUE: CTA of the chest obtained following the uncomplicated intravenous administration of 75 mL Omnipaque 350. 3-D/MIP reformatted images of the chest available for evaluation. DLP: 478.60 mGycm FINDINGS: Chest: Pulmonary arteries: Contrast bolus is adequate.No filling defects identified in the pulmonary arteries to suggest pulmonary embolus. Enlargement of the main pulmonary artery. This could be seen with pulmonary arterial hypertension. Thyroid:No abnormalities of the visualized thyroid. Great Vessels:Great vessels have normal anatomic configuration. Thoracic Aorta:No abnormalities of the thoracic aorta identified. Heart:No cardiomegaly, significant pericardial effusion, or coronary artery atherosclerosis Lymph Nodes:No enlarged mediastinal lymph nodes identified. Esophagus:No abnormalities of the esophagus identified. Other:No additional findings. Lungs: Chronic bibasilar interstitial opacities lung bases are stable. No acute consolidation. Pleura:No pleural effusion or pneumothorax. Trachea/Airways:No abnormalities of the visualized trachea or airways. Bones: Diffuse sclerotic changes of the spine compatible with history of sickle cell disease. Upper Abdomen:Limited images of the upper abdomen demonstrate no definite abnormalities of visualized portions of the liver, pancreas, adrenal glands, or kidneys. Calcified splenic remnant. IMPRESSION: 1. No pulmonary embolus identified. This exam was performed according to our departmental dose-optimization program, which includes automated exposure control, adjustment of the mA and/or kV according to patient size and/or use of iterative reconstruction technique.
[2018-05-09] MEDS ORDERED: HYDROMORPHONE HCL INJ/PF 2 MG/ML AMPULE IV ONE ×2 (08:02→10:44)
[2018-05-09] MEDS ORDERED: NORMAL SALINE 1000 ML 1,000 ML IV PRN (08:28)
[2018-05-09] MEDS ORDERED: ALBUTEROL SULFATE HFA (90 MCG/PUFF) 200 PUFF/8.5 GM MDI IH PRN (17:01)
--- NOTE | 2018-05-09 17:01 | PDOC H&P ---
History of Present Illness Admission Date/PCP: 05/09/18 08:38 VIDA CASTANON MD Patient complains of: Worsening back pain History of Present Illness: MARINO POZO is a 22 year old male patient known to my practice who presented to the ED with worsening mid back pain over last 2 weeks. He denied any recent instrumentation in same area, fall, or trauma. Patient related symptom to his SS hemoglobin sickle cell disease. He denied any significant relieving or aggravating factors. He reported compliance with his pain management regimen. He was recently discharged from [facility] following admission for diagnosis with bacteremia and on home infusion on Cefazolin therapy. he denied any fever or chills. No nausea, vomiting or abdominal pain. His initial evaluation in the ED was significant for tachycardia, hypoxemia, anemia with hemolytic features and negative CTA chest and chest X ray. he was advised hospitalization due to SS hemoglobin Sickle cell disease in pain and hemolytic crises. 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 Past Medical History Pulmonary Medical History: Reports: Asthma, Pneumonia Psychiatric Medical History: Denies: Depression Hematology: Reports: Anemia, Sickle Cell Disease, Bleeding Tendencies Past Surgical History Past Surgical History: Reports: Cholecystectomy, Orthopedic Surgery - Fluid drained from right foot, Vascular Surgery - Port placement Social History Lives with: Spouse/Significant other Smoking Status: Never Smoker Frequency of Alcohol Use: Occasional Hx Recreational Drug Use: No Drugs: None Hx Prescription Drug Abuse: No - Advance Directive Resuscitation Status: Full Code Family History Family History: Reviewed & Not Pertinent, Arthritis, DM, Hypertension, Other - Sickle cell trait both parents and asthma Parental Family History Reviewed: Yes Children Family History Reviewed: Yes Sibling(s) Family History Reviewed.: Yes Medication/Allergy Home Medications: Albuterol Sulfate [Proair HFA Inhalation Aerosol 8.5 gm MDI] 2 puff IH Q4HP PRN 05/09/18 Fentanyl [Duragesic 75 Mcg/Hr Transdermal Patch] 1 patch TOP Q3D 05/09/18 Folic Acid [Folvite 1 mg Tablet] 1 mg PO DAILY 05/09/18 Hydroxyurea [Hydrea 500 mg Capsule] 1,500 mg PO MOWEFR@1000 05/09/18 Hydroxyurea [Hydrea 500 mg Capsule] 500 mg PO SUTUTHSA@1000 05/09/18 Oxycodone HCl [Oxy-Ir 5 mg Tablet] 5 mg PO Q4 05/09/18 Allergies/Adverse Reactions: Coconut * [Coconut] Allergy (Mild, Verified 04/11/18 15:13) transpore tape Allergy (Mild, Uncoded 04/11/18 15:13) Hives Review of Systems Constitutional: ABSENT: chills, fever(s), headache(s), weight gain, weight loss Eyes: ABSENT: visual disturbances Ears: ABSENT: hearing changes Nose, Mouth, and Throat: ABSENT: as per HPI, headache(s), mouth pain, sore throat, vertigo, other Cardiovascular: ABSENT: chest pain, dyspnea on exertion, edema, orthropnea, palpitations Respiratory: ABSENT: cough, hemoptysis Gastrointestinal: ABSENT: abdominal pain, constipation, diarrhea, hematemesis, hematochezia, nausea, vomiting Genitourinary: ABSENT: dysuria, hematuria Musculoskeletal: PRESENT: back pain. ABSENT: joint swelling, muscle weakness Integumentary: ABSENT: rash, wounds Neurological: ABSENT: abnormal gait, abnormal speech, confusion, dizziness, focal weakness, syncope Psychiatric: ABSENT: anxiety, depression, homidical ideation, suicidal ideation Endocrine: ABSENT: cold intolerance, heat intolerance, polydipsia, polyuria Hematologic/Lymphatic: ABSENT: easy bleeding, easy bruising, lymphadenopathy Allergic/Immunologic: ABSENT: seasonal rhinorrhea Physical Exam Vital Signs: Temp Pulse Resp BP Pulse Ox 98.0 F 105 H 18 117/79 97 05/09/18 15:40 05/09/18 15:40 05/09/18 15:40 05/09/18 15:40 05/09/18 15:40 Intake & Output 05/08/18 05/09/18 05/10/18 06:59 06:59 06:59 Weight 61.5 kg General appearance: PRESENT: mild distress - moderate level due to mid back pain Head exam: PRESENT: atraumatic, normocephalic Eye exam: PRESENT: conjunctiva pink, EOMI, PERRLA. ABSENT: scleral icterus Ear exam: PRESENT: normal external ear exam Mouth exam: PRESENT: moist, tongue midline Teeth exam: ABSENT: dental caries, dental tenderness, edentulous, poor dentation , other Throat exam: ABSENT: post pharyngeal erythema, tonsillar erythema, tonsillar exudate, tonsillogmegaly, other Neck exam: ABSENT: lymphadenopathy, tenderness, thyromegaly Respiratory exam: PRESENT: clear to auscultation ethan Cardiovascular exam: PRESENT: +S1, +S2, tachycardia. ABSENT: diastolic murmur, systolic murmur Pulses: PRESENT: normal dorsalis pedis pul, +2 pedal pulses bilateral Vascular exam: PRESENT: normal capillary refill. ABSENT: pallor GI/Abdominal exam: PRESENT: normal bowel sounds, soft. ABSENT: distended, guarding, mass, organolmegaly, rebound, tenderness Rectal exam: PRESENT: deferred Extremities exam: ABSENT: pedal edema Musculoskeletal exam: PRESENT: tenderness - mid back level. ABSENT: deformity Neurological exam: PRESENT: alert, awake, oriented to person, oriented to place , oriented to time, oriented to situation, CN II-XII grossly intact. ABSENT: motor sensory deficit Psychiatric exam: PRESENT: appropriate affect, normal mood. ABSENT: homicidal ideation, suicidal ideation Skin exam: PRESENT: dry, warm, other - left arm PICC line Results Laboratory Results: I reviewed his lab results on [employer] and form significant component of my medical decision making. Impressions: Chest X-Ray 05/09/18 02:44 IMPRESSION: No acute cardiopulmonary findings. Chest/Abdomen CTA 05/09/18 05:42 IMPRESSION: 1. No pulmonary embolus identified. This exam was performed according to our departmental dose-optimization program, which includes automated exposure control, adjustment of the mA and/or kV according to patient size and/or use of iterative reconstruction technique. Assessment & Plan - Diagnosis (1) Sickle cell disease with crisis Is this a current diagnosis for this admission?: Yes Plan: See admitting physician orders. (2) Hypoxia Is this a current diagnosis for this admission?: Yes Plan: See admitting physician orders. (3) Homozygous sickle cell (SS) disease Is this a current diagnosis for this admission?: Yes Plan: See admitting physician orders. (4) Asthma Qualifiers: Asthma severity: mild Asthma complication type: unspecified Is this a current diagnosis for this admission?: Yes Plan: See admitting physician orders. (5) Bacteremia of undetermined etiology Is this a current diagnosis for this admission?: Yes Plan: See admitting physician orders. - Time Time Spent: 50 to 70 Minutes Medications reviewed and adjusted accordingly: Yes Anticipated discharge: Home Within: Other - Inpatient Certification Based on my medical assessment, after consideration of the patient's comorbidities, presenting symptoms, or acuity I expect that the services needed warrant INPATIENT care.: Yes I certify that my determination is in accordance with my understanding of Medicare's requirements for reasonable and necessary INPATIENT services [42 CFR 412.3e].: Yes Medical Necessity: Need Close Monitoring Due to Risk of Patient Decompensation, Need For IV Fluids, Need For Continuous Telemetry Monitoring, Need for Pain Control, Need for IV Antibiotics, Risk of Complication if Not Cared For in Hospital Post Hospital Care: D/C Email Production Consultant Documentation - Plan Summary Plan Summary: See admitting physician orders.
[2018-05-09] MEDS: FENTANYL 75 MCG/HR PATCH.TD72 TOP SCH (17:30)
[2018-05-09] MEDS ORDERED: CEFAZOLIN 2 GM/D5W RTU 2 GM/50 ML RTUPB IV SCH (18:00)
[2018-05-09] MEDS ORDERED: ENOXAPARIN SODIUM INJ 40 MG/0.4 ML DISP.SYRIN SUBCUT ONE (18:00)
[2018-05-09] MEDS ORDERED: CEFAZOLIN INJ 1 GM VIAL ONE (18:27)
[2018-05-09] MEDS ORDERED: NORMAL SALINE INJ/PF 0.9% 10 ML SDV IV PRN (18:27)
[2018-05-09] MEDS: CEFAZOLIN SODIUM 2 GM in DEXTROSE 5%-WATER 100 ML IV SCH ×2 (19:00→23:54)
[2018-05-09] MEDS: NORMAL SALINE 1000 ML 1,000 ML IV PRN (20:27)
[2018-05-10] MEDS: NORMAL SALINE 1000 ML 1,000 ML IV PRN ×2 (03:46→17:15)
[2018-05-10] MEDS: HYDROMORPHONE HCL INJ/PF 2 MG/ML AMPULE IV PRN ×5 (03:46→20:10)
[2018-05-10] MEDS: CEFAZOLIN SODIUM 2 GM in DEXTROSE 5%-WATER 100 ML IV SCH ×3 (06:22→17:14)
[2018-05-10] MEDS: LANSOPRAZOLE 30 MG TAB.RAP.DR PO SCH (06:22)
[2018-05-10 07:24] LABS: MEAN CORPUSCULAR HGB CONC 35.8 g/dL (32.0-36.0); MEAN CORPUSCULAR VOLUME 95 fl (80-97); PLATELET COUNT 168 10^3/uL (150-450); RED BLOOD COUNT 2.32 10^6/uL (4.35-5.55); WHITE BLOOD COUNT 9.9 10^3/uL (4.0-10.5)
[2018-05-10 07:35] LABS: ALANINE AMINOTRANSFERASE 19 U/L (21-72); ALBUMIN 3.7 g/dL (3.5-5.0); ALKALINE PHOSPHATASE 88 U/L (38-126); ANION GAP 7 (5-19); ASPARTATE AMINO TRANSFERASE 60 U/L (17-59); BILIRUBIN,DIRECT 0.4 mg/dL (0.0-0.4); BLOOD UREA NITROGEN 10 mg/dL (7-20); CALCIUM 8.7 mg/dL (8.4-10.2); CARBON DIOXIDE 30 mmol/L (22-30); CHLORIDE 103 mmol/L (98-107); GLUCOSE 97 mg/dL (75-110); POTASSIUM 4.4 mmol/L (3.6-5.0); SODIUM 140.4 mmol/L (137-145); TOTAL PROTEIN 6.9 g/dL (6.3-8.2)
[2018-05-10 08:29] LABS: ABSOLUTE LYMPHOCYTES# (MANUAL) 3.1 10^3/uL (0.5-4.7); ABSOLUTE MONOCYTES # (MANUAL) 0.4 10^3/uL (0.1-1.4); ABSOLUTE NEUTROPHILS# (MANUAL) 5.2 10^3/uL (1.7-8.2); BASOPHILS % (MANUAL) 0 % (0-2); EOSINOPHILS % (MANUAL) 12 % (0-6); LYMPHOCYTES % (MANUAL) 31 % (13-45); MONOCYTES % (MANUAL) 4 % (3-13); NUCLEATED RED BLOOD CELLS 18 /100 WBC (0); SEGMENTED NEUTROPHILS % (MAN) 53 % (42-78); TOTAL CELLS COUNTED 100
[2018-05-10 08:31] LABS: ANISOCYTOSIS 4+; POIKILOCYTOSIS 3+; POLYCHROMASIA 1+
[2018-05-10 08:32] LABS: OVALOCYTES SLIGHT; PLATELET COMMENT ADEQUATE; SICKLE RED CELLS 2+; TARGET CELLS 1+
[2018-05-10 08:35] LABS: HEMOGLOBIN 7.9 g/dL (13.5-17.0)
[2018-05-10] MEDS: FOLIC ACID 1 MG TABLET PO SCH (09:19)
[2018-05-10] MEDS: ENOXAPARIN SODIUM INJ 40 MG/0.4 ML DISP.SYRIN SUBCUT SCH (09:20)
[2018-05-10] MEDS: ONDANSETRON HCL INJ/PF 4 MG/2 ML SDV IV PRN ×2 (16:11→21:50)
--- NOTE | 2018-05-10 16:30 | PDOC PROGRESS REPORT ---
Subjective Progress Note for:: 05/10/18 Subjective:: Patient is seen by the bedside admitted for management of vaso-occlusive pain crisis Reason For Visit: SICKLE CELL Physical Exam Vital Signs: Temp Pulse Resp BP Pulse Ox 97.9 F 103 H 19 128/101 H 93 05/10/18 15:24 05/10/18 15:24 05/10/18 15:24 05/10/18 15:24 05/10/18 15:24 Intake & Output 05/09/18 05/10/18 05/11/18 06:59 06:59 06:59 Intake Total 1665 1200 Output Total 900 Balance 765 1200 Weight 64.4 kg General appearance: PRESENT: no acute distress Eye exam: PRESENT: PERRLA Respiratory exam: PRESENT: clear to auscultation ethan Cardiovascular exam: PRESENT: +S1, +S2 GI/Abdominal exam: PRESENT: soft Neurological exam: PRESENT: alert Results Laboratory Results: 05/10/18 06:27 05/10/18 06:27 05/10/18 05/10/18 06:27 06:27 WBC 9.9 RBC 2.32 L Hgb 7.9 L Hct 22.0 L MCV 95 MCH 34.0 H MCHC 35.8 RDW 29.0 H Plt Count 168 Seg Neutrophils % Not Reportable Lymphocytes % Not Reportable Monocytes % Not Reportable Eosinophils % Not Reportable Basophils % Not Reportable Absolute Neutrophils Not Reportable Absolute Lymphocytes Not Reportable Absolute Monocytes Not Reportable Absolute Eosinophils Not Reportable Absolute Basophils Not Reportable Sodium 140.4 Potassium 4.4 Chloride 103 Carbon Dioxide 30 Anion Gap 7 BUN 10 Creatinine 0.57 Est GFR ( Amer) > 60 Est GFR (Non-Af Amer) > 60 Glucose 97 Calcium 8.7 Total Bilirubin 2.0 H AST 60 H ALT 19 L Alkaline Phosphatase 88 Total Protein 6.9 Albumin 3.7 Impressions: Chest X-Ray 05/09/18 02:44 IMPRESSION: No acute cardiopulmonary findings. Chest/Abdomen CTA 05/09/18 05:42 IMPRESSION: 1. No pulmonary embolus identified. This exam was performed according to our departmental dose-optimization program, which includes automated exposure control, adjustment of the mA and/or kV according to patient size and/or use of iterative reconstruction technique. Assessment & Plan - Diagnosis (1) Sickle cell crisis Is this a current diagnosis for this admission?: Yes Plan: Continue treatment (2) Sickle cell crisis acute chest syndrome Is this a current diagnosis for this admission?: Yes
[2018-05-11] MEDS: HYDROMORPHONE HCL INJ/PF 2 MG/ML AMPULE IV PRN ×6 (00:09→19:56)
[2018-05-11] MEDS: NORMAL SALINE 1000 ML 1,000 ML IV PRN ×2 (00:09→04:14)
[2018-05-11] MEDS: CEFAZOLIN SODIUM 2 GM in DEXTROSE 5%-WATER 100 ML IV SCH ×4 (00:09→17:58)
[2018-05-11] MEDS: LANSOPRAZOLE 30 MG TAB.RAP.DR PO SCH (06:44)
[2018-05-11] MEDS: ENOXAPARIN SODIUM INJ 40 MG/0.4 ML DISP.SYRIN SUBCUT SCH (10:13)
[2018-05-11] MEDS: FOLIC ACID 1 MG TABLET PO SCH (10:13)
--- NOTE | 2018-05-11 14:37 | PDOC PROGRESS REPORT ---
Subjective Progress Note for:: 05/11/18 Subjective:: Patient is seen by the bedside admitted for management of vaso-occlusive pain crisis Reason For Visit: SICKLE CELL Physical Exam Vital Signs: Temp Pulse Resp BP Pulse Ox 98.4 F 101 H 18 132/83 H 99 05/11/18 11:19 05/11/18 11:19 05/11/18 11:19 05/11/18 11:19 05/11/18 11:19 Intake & Output 05/10/18 05/11/18 05/12/18 06:59 06:59 06:59 Intake Total 1665 4306 1200 Output Total 900 3850 Balance 306 776 9402 Weight 64.4 kg 61.8 kg General appearance: PRESENT: no acute distress Eye exam: PRESENT: PERRLA Respiratory exam: PRESENT: clear to auscultation ethan Cardiovascular exam: PRESENT: +S1, +S2 GI/Abdominal exam: PRESENT: soft Results Laboratory Results: 05/10/18 06:27 05/10/18 06:27 Impressions: Chest X-Ray 05/09/18 02:44 IMPRESSION: No acute cardiopulmonary findings. Chest/Abdomen CTA 05/09/18 05:42 IMPRESSION: 1. No pulmonary embolus identified. This exam was performed according to our departmental dose-optimization program, which includes automated exposure control, adjustment of the mA and/or kV according to patient size and/or use of iterative reconstruction technique. Assessment & Plan - Diagnosis (1) Sickle cell crisis Is this a current diagnosis for this admission?: Yes (2) Sickle cell crisis acute chest syndrome Is this a current diagnosis for this admission?: Yes
[2018-05-12] MEDS: NORMAL SALINE 1000 ML 1,000 ML IV PRN ×2 (00:02→10:34)
[2018-05-12] MEDS: HYDROMORPHONE HCL INJ/PF 2 MG/ML AMPULE IV PRN ×6 (03:48→20:56)
[2018-05-12] MEDS: LANSOPRAZOLE 30 MG TAB.RAP.DR PO SCH (05:52)
[2018-05-12] MEDS: CEFAZOLIN SODIUM 2 GM in DEXTROSE 5%-WATER 100 ML IV SCH ×6 (05:52→23:22)
[2018-05-12 07:05] LABS: HEMATOCRIT 23.9 % (37.9-51.0); HEMOGLOBIN 8.6 g/dL (13.5-17.0); MEAN CORPUSCULAR HEMOGLOBIN 34.2 pg (27.0-33.4); MEAN CORPUSCULAR VOLUME 95 fl (80-97); PLATELET COUNT 215 10^3/uL (150-450); RED BLOOD COUNT 2.52 10^6/uL (4.35-5.55); WHITE BLOOD COUNT 6.9 10^3/uL (4.0-10.5)
[2018-05-12] MEDS: FOLIC ACID 1 MG TABLET PO SCH (10:34)
[2018-05-12] MEDS: ENOXAPARIN SODIUM INJ 40 MG/0.4 ML DISP.SYRIN SUBCUT SCH (10:34)
[2018-05-12] MEDS: FENTANYL 75 MCG/HR PATCH.TD72 TOP SCH (18:12)
--- NOTE | 2018-05-12 18:27 | PDOC PROGRESS REPORT ---
Subjective Progress Note for:: 05/12/18 Subjective:: Patient reported persistent mid back pain and requested for KPAD usage. No chest pain or difficulty with breathing. No nausea, vomiting or abdominal pain. Reason For Visit: SICKLE CELL Physical Exam Vital Signs: Temp Pulse Resp BP Pulse Ox 98.4 F 92 16 124/79 100 05/12/18 15:56 05/12/18 15:56 05/12/18 15:56 05/12/18 15:56 05/12/18 15:56 Intake & Output 05/11/18 05/12/18 05/13/18 06:59 06:59 06:59 Intake Total 4306 3331 1777 Output Total 3850 2030 500 Balance 456 1301 1277 Weight 61.8 kg 58.9 kg General appearance: PRESENT: mild distress - due to sickle cell disease pain crisis Head exam: PRESENT: atraumatic, normocephalic Eye exam: PRESENT: conjunctiva pink, EOMI, PERRLA. ABSENT: scleral icterus Ear exam: PRESENT: normal external ear exam Mouth exam: PRESENT: moist Respiratory exam: PRESENT: clear to auscultation ethan Cardiovascular exam: PRESENT: RRR, +S1, +S2, tachycardia - on cardiac monitoring. ABSENT: diastolic murmur, rubs, systolic murmur Vascular exam: PRESENT: normal capillary refill. ABSENT: pallor GI/Abdominal exam: PRESENT: normal bowel sounds, soft. ABSENT: distended, guarding, mass, organolmegaly, rebound, tenderness Extremities exam: ABSENT: pedal edema Musculoskeletal exam: PRESENT: normal inspection, tenderness - mid back region Neurological exam: PRESENT: alert, awake, oriented to person, oriented to place , oriented to time, oriented to situation, CN II-XII grossly intact. ABSENT: motor sensory deficit Psychiatric exam: PRESENT: appropriate affect, normal mood. ABSENT: homicidal ideation, suicidal ideation Skin exam: PRESENT: dry, warm, other - Left arm PICC line site is satisfactory.. ABSENT: cyanosis, rash Results Laboratory Results: 05/12/18 06:00 05/10/18 06:27 05/12/18 06:00 WBC 6.9 RBC 2.52 L Hgb 8.6 L Hct 23.9 L MCV 95 MCH 34.2 H MCHC 36.0 RDW 28.0 H Plt Count 215 Impressions: Chest X-Ray 05/09/18 02:44 IMPRESSION: No acute cardiopulmonary findings. Chest/Abdomen CTA 05/09/18 05:42 IMPRESSION: 1. No pulmonary embolus identified. This exam was performed according to our departmental dose-optimization program, which includes automated exposure control, adjustment of the mA and/or kV according to patient size and/or use of iterative reconstruction technique. Assessment & Plan - Diagnosis (1) Sickle cell disease with crisis Is this a current diagnosis for this admission?: Yes (2) Hypoxia Is this a current diagnosis for this admission?: Yes (3) Homozygous sickle cell (SS) disease Is this a current diagnosis for this admission?: Yes (4) Asthma Qualifiers: Asthma severity: mild Asthma complication type: unspecified Is this a current diagnosis for this admission?: Yes (5) Bacteremia of undetermined etiology Is this a current diagnosis for this admission?: Yes - Time Time Spent with patient: 25-34 minutes Medications reviewed and adjusted accordingly: Yes - Inpatient Certification Based on my medical assessment, after consideration of the patient's comorbidities, presenting symptoms, or acuity I expect that the services needed warrant INPATIENT care.: Yes I certify that my determination is in accordance with my understanding of Medicare's requirements for reasonable and necessary INPATIENT services [42 CFR 412.3e].: Yes Medical Necessity: Need Close Monitoring Due to Risk of Patient Decompensation, Need For IV Fluids, Need For Continuous Telemetry Monitoring, Need for Pain Control, Need for IV Antibiotics, Risk of Complication if Not Cared For in Hospital Post Hospital Care: D/C Child Psychiatrist Documentation - Plan Summary Plan Summary: Continue current medication management. Allow use of KPAD prn basis to aide pain management.
[2018-05-13] MEDS: HYDROMORPHONE HCL INJ/PF 2 MG/ML AMPULE IV PRN ×3 (01:21→11:06)
[2018-05-13] MEDS: LANSOPRAZOLE 30 MG TAB.RAP.DR PO SCH (05:45)
[2018-05-13] MEDS: NORMAL SALINE 1000 ML 1,000 ML IV PRN (05:45)
[2018-05-13] MEDS: CEFAZOLIN SODIUM 2 GM in DEXTROSE 5%-WATER 100 ML IV SCH ×2 (05:45→11:47)
[2018-05-13] MEDS: ENOXAPARIN SODIUM INJ 40 MG/0.4 ML DISP.SYRIN SUBCUT SCH (11:06)
[2018-05-13] MEDS: FOLIC ACID 1 MG TABLET PO SCH (11:06)
--- NOTE | 2018-05-13 13:44 | PDOC PROGRESS REPORT ---
Subjective Progress Note for:: 05/13/18 Subjective:: No chest pain or difficulty with breathing. His pain is fairly controlled on current regimen. No nausea, vomiting or abdominal pain. Reason For Visit: SICKLE CELL Physical Exam Vital Signs: Temp Pulse Resp BP Pulse Ox 98.3 F 102 H 18 114/84 96 05/13/18 08:42 05/13/18 08:42 05/13/18 08:42 05/13/18 08:42 05/13/18 08:42 Intake & Output 05/12/18 05/13/18 05/14/18 06:59 06:59 06:59 Intake Total 3331 4958 200 Output Total 2030 3050 Balance 1301 1908 200 Weight 58.9 kg 58.1 kg Physical Exam: General appearance: PRESENT: mild distress - due to sickle cell disease pain crisis Head exam: PRESENT: atraumatic, normocephalic Eye exam: PRESENT: conjunctiva pink, EOMI, PERRLA. ABSENT: scleral icterus Ear exam: PRESENT: normal external ear exam Mouth exam: PRESENT: moist Respiratory exam: PRESENT: clear to auscultation ethan Cardiovascular exam: PRESENT: RRR, +S1, +S2 ABSENT: diastolic murmur, rubs, systolic murmur Vascular exam: PRESENT: normal capillary refill. ABSENT: pallor GI/Abdominal exam: PRESENT: normal bowel sounds, soft. ABSENT: distended, guarding, mass, organomegaly, rebound, tenderness Extremities exam: ABSENT: pedal edema Musculoskeletal exam: PRESENT: normal inspection, tenderness - mid back region Neurological exam: PRESENT: alert, awake, oriented to person, oriented to place , oriented to time, oriented to situation, CN II-XII grossly intact. ABSENT: motor sensory deficit Psychiatric exam: PRESENT: appropriate affect, normal mood. ABSENT: homicidal ideation, suicidal ideation Skin exam: PRESENT: dry, warm, other - Left arm PICC line site is satisfactory.. ABSENT: cyanosis, rash Results Laboratory Results: 05/12/18 06:00 05/10/18 06:27 Impressions: Chest X-Ray 05/09/18 02:44 IMPRESSION: No acute cardiopulmonary findings. Chest/Abdomen CTA 05/09/18 05:42 IMPRESSION: 1. No pulmonary embolus identified. This exam was performed according to our departmental dose-optimization program, which includes automated exposure control, adjustment of the mA and/or kV according to patient size and/or use of iterative reconstruction technique. Assessment & Plan - Diagnosis (1) Sickle cell disease with crisis Is this a current diagnosis for this admission?: Yes (2) Hypoxia Is this a current diagnosis for this admission?: Yes (3) Homozygous sickle cell (SS) disease Is this a current diagnosis for this admission?: Yes (4) Asthma Qualifiers: Asthma severity: mild Asthma complication type: unspecified Is this a current diagnosis for this admission?: Yes (5) Bacteremia of undetermined etiology Is this a current diagnosis for this admission?: Yes - Time Time Spent with patient: 25-34 minutes Medications reviewed and adjusted accordingly: Yes Anticipated discharge: Home Within: Other - Inpatient Certification Based on my medical assessment, after consideration of the patient's comorbidities, presenting symptoms, or acuity I expect that the services needed warrant INPATIENT care.: Yes I certify that my determination is in accordance with my understanding of Medicare's requirements for reasonable and necessary INPATIENT services [42 CFR 412.3e].: Yes Medical Necessity: Need Close Monitoring Due to Risk of Patient Decompensation, Need For IV Fluids, Need For Continuous Telemetry Monitoring, Need for Pain Control, Need for IV Antibiotics, Risk of Complication if Not Cared For in Hospital Post Hospital Care: D/C Clinical Team Manager Documentation - Plan Summary Plan Summary: Continue current medication management. I had extensive discussion with patient and mother at bedside regarding discharge due to the weather issue and mandatory evacuation in our area. He insisted upon staying in the hospital at this time.
--- NOTE | 2018-05-13 14:35 | PDOC DISCHARGE SUMMARY ---
General - Admit/Disc Date/PCP Admission Date/Primary Care Provider: 05/09/18 08:38 VIDA CASTANON MD Discharge Date: 05/13/18 - Discharge Diagnosis (1) Sickle cell disease with crisis Is this a current diagnosis for this admission?: Yes (2) Hypoxia Is this a current diagnosis for this admission?: Yes (3) Homozygous sickle cell (SS) disease Is this a current diagnosis for this admission?: Yes (4) Asthma Is this a current diagnosis for this admission?: Yes (5) Bacteremia of undetermined etiology Is this a current diagnosis for this admission?: Yes - Additional Information Resuscitation Status: Full Code Home Medications: Albuterol Sulfate [Proair HFA Inhalation Aerosol 8.5 gm MDI] 2 puff IH Q4HP PRN 05/09/18 Fentanyl [Duragesic 75 Mcg/Hr Transdermal Patch] 1 patch TOP Q3D 05/09/18 Folic Acid [Folvite 1 mg Tablet] 1 mg PO DAILY 05/09/18 Hydroxyurea [Hydrea 500 mg Capsule] 1,500 mg PO MOWEFR@1000 05/09/18 Hydroxyurea [Hydrea 500 mg Capsule] 500 mg PO SUTUTHSA@1000 05/09/18 Oxycodone HCl [Oxy-Ir 5 mg Tablet] 5 mg PO Q4 05/09/18 History of Present Illness Patient complains of: Worsening mid back pain History of Present Illness: MARINO POZO is a 22 year old male patient known to my practice who presented to the ED with worsening mid back pain over last 2 weeks. He denied any recent instrumentation in same area, fall, or trauma. Patient related symptom to his SS hemoglobin sickle cell disease. He denied any significant relieving or aggravating factors. He reported compliance with his pain management regimen. He was recently discharged from [facility] following admission for diagnosis with bacteremia and on home infusion on Cefazolin therapy. he denied any fever or chills. No nausea, vomiting or abdominal pain. His initial evaluation in the ED was significant for tachycardia, hypoxemia, anemia with hemolytic features and negative CTA chest and chest X ray. he was advised hospitalization due to SS hemoglobin Sickle cell disease in pain and hemolytic crises. 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 Hospital Course Hospital Course: Patient was managed with IV Dilaudid and Fentanyl Patch for pain management, he remain on IV fluid and IV Cefazolin coverage. His pain did improved but persist. He remain afebrile. No chest pain, nausea, vomiting or abdominal pain. He will be discharged home today with follow up arrangement at [facility] and myself as instructed upon discharge. Physical Exam Vital Signs: Temp Pulse Resp BP Pulse Ox 98.3 F 102 H 18 114/84 96 05/13/18 08:42 05/13/18 08:42 05/13/18 08:42 05/13/18 08:42 05/13/18 08:42 Intake & Output 05/12/18 05/13/18 05/14/18 06:59 06:59 06:59 Intake Total 3331 4958 200 Output Total 2030 3050 Balance 1301 1908 200 Weight 58.9 kg 58.1 kg Physical Exam: General appearance: PRESENT: mild distress - due to sickle cell disease pain crisis Head exam: PRESENT: atraumatic, normocephalic Eye exam: PRESENT: conjunctiva pink, EOMI, PERRLA. ABSENT: scleral icterus Ear exam: PRESENT: normal external ear exam Mouth exam: PRESENT: moist Respiratory exam: PRESENT: clear to auscultation ethan Cardiovascular exam: PRESENT: RRR, +S1, +S2 ABSENT: diastolic murmur, rubs, systolic murmur Vascular exam: PRESENT: normal capillary refill. ABSENT: pallor GI/Abdominal exam: PRESENT: normal bowel sounds, soft. ABSENT: distended, guarding, mass, organomegaly, rebound, tenderness Extremities exam: ABSENT: pedal edema Musculoskeletal exam: PRESENT: normal inspection, tenderness - mid back region Neurological exam: PRESENT: alert, awake, oriented to person, oriented to place , oriented to time, oriented to situation, CN II-XII grossly intact. ABSENT: motor sensory deficit Psychiatric exam: PRESENT: appropriate affect, normal mood. ABSENT: homicidal ideation, suicidal ideation Skin exam: PRESENT: dry, warm, other - Left arm PICC line site is satisfactory.. ABSENT: cyanosis, rash Results Laboratory Results: 05/12/18 06:00 05/10/18 06:27 Impressions: Chest X-Ray 05/09/18 02:44 IMPRESSION: No acute cardiopulmonary findings. Chest/Abdomen CTA 05/09/18 05:42 IMPRESSION: 1. No pulmonary embolus identified. This exam was performed according to our departmental dose-optimization program, which includes automated exposure control, adjustment of the mA and/or kV according to patient size and/or use of iterative reconstruction technique. Qualifiers - * PATIENT BEING DISCHARGED WITH ANY OF THE FOLLOWING DIAGNOSIS: No Plan Discharge Plan: D/C home today. Follow up with prior arrangement at [facility] and myself as instructed upon discharge.
[2018-05-13 15:28] VITALS: BP 134/81
== END 2018-05-13 15:32 | disposition home or self-care (01) | DRG 812 ==
LOC: ER 01:22 → EH 08:38 → 5 15:32
PROVIDERS: ADMIT Internal Medicine Geriatric Medicine; ATTEND Internal Medicine Geriatric Medicine
DX: D57.01 Hb-SS disease with acute chest syndrome (principal); R78.81 Bacteremia; R09.02 Hypoxemia; J45.998 Other asthma; M54.89 Other dorsalgia
CPT/HCPCS: 36415; 71045; 71275; 80048; 80053; 85025; 85027; 85045; 96374; 96375; 96376; 99285; A9270-GY; J0690; J1170; J1200; J1650; J2405; J3490; J7030

== ENCOUNTER 2018-05-20 18:12 | Emergency (ER) | payer MEDICAID ==
[2018-05-20] MEDS ORDERED: NORMAL SALINE 1000 ML 1,000 ML IV ONE (19:03)
[2018-05-20] MEDS ORDERED: NORMAL SALINE 1000 ML 1,000 ML IV PRN (19:03)
[2018-05-20] MEDS ORDERED: HYDROMORPHONE HCL INJ/PF 2 MG/ML AMPULE IV ONE ×2 (19:15→21:26)
--- NOTE | 2018-05-20 19:15 | ER Document Report ---
ED Medical Screen (RME) - General Chief Complaint: Knee Pain Stated Complaint: RIGHT KNEE PAIN Time Seen by Provider: 05/20/18 18:56 Notes: 22 years old male with a history of sickle cell disease, frequent ER visits, presents today with pain syndrome. He is also being treated for endocarditis with IV antibiotic. TRAVEL OUTSIDE OF THE [place] IN LAST 30 DAYS: No - Related Data Allergies/Adverse Reactions: Coconut * [Coconut] Allergy (Mild, Verified 05/20/18 18:14) transpore tape Allergy (Mild, Uncoded 04/11/18 15:13) Hives Past Medical History - Social History Frequency of alcohol use: None Drug Abuse: None Family history: None Pulmonary Medical History: Reports: Hx Asthma, Hx Pneumonia Renal/ Medical History: Denies: Hx Peritoneal Dialysis Psychiatric Medical History: Denies: Hx Depression Past Surgical History: Reports: Hx Abdominal Surgery - Gallstones removal, Hx Cholecystectomy, Hx Orthopedic Surgery - Fluid drained from right foot, Hx Vascular Surgery - Port placement - Immunizations Immunizations up to date: Yes Hx Diphtheria, Pertussis, Tetanus Vaccination: Yes History of Influenza Vaccine for 06/2017 - 10/2017 Season: Yes Influenza Administration Date for 06/2017 - 10/2017 Season: 06/02/17 Physical Exam - Vital signs Vitals: Temp Pulse Resp BP Pulse Ox 98.5 F 115 H 16 118/73 93 05/20/18 18:39 05/20/18 18:39 05/20/18 18:39 05/20/18 18:39 05/20/18 18:39 Course - Vital Signs Vital signs: Temp Pulse Resp BP Pulse Ox 98.5 F 115 H 16 118/73 93 05/20/18 18:39 05/20/18 18:39 05/20/18 18:39 05/20/18 18:39 05/20/18 18:39 Doctor's Discharge - Discharge Referrals: VIDA CASTANON MD [Primary Care Provider] - Follow up as needed
[2018-05-20 20:29] LABS: ABSOLUTE RETICS # 0.345 10^6/uL (0.028-0.122); HEMATOCRIT 25.6 % (37.9-51.0); HEMOGLOBIN 8.9 g/dL (13.5-17.0); MEAN CORPUSCULAR HEMOGLOBIN 33.2 pg (27.0-33.4); MEAN CORPUSCULAR HGB CONC 34.9 g/dL (32.0-36.0); MEAN CORPUSCULAR VOLUME 95 fl (80-97); PLATELET COUNT 251 10^3/uL (150-450); RED CELL DISTRIBUTION WIDTH 30.3 % (11.5-14.0); RETICULOCYTE COUNT (AUTO) 12.79 % (0.66-2.85); WHITE BLOOD COUNT 10.3 10^3/uL (4.0-10.5)
[2018-05-20 20:49] LABS: ABSOLUTE LYMPHOCYTES# (MANUAL) 2.6 10^3/uL (0.5-4.7); ABSOLUTE MONOCYTES # (MANUAL) 0.3 10^3/uL (0.1-1.4); ABSOLUTE NEUTROPHILS# (MANUAL) 6.4 10^3/uL (1.7-8.2); BAND NEUTROPHILS % (MANUAL) 1 % (3-5); BASOPHILS % (MANUAL) 1 % (0-2); EOSINOPHILS % (MANUAL) 9 % (0-6); LYMPHOCYTES % (MANUAL) 25 % (13-45); MONOCYTES % (MANUAL) 3 % (3-13); NUCLEATED RED BLOOD CELLS 19 /100 WBC (0); SEGMENTED NEUTROPHILS % (MAN) 61 % (42-78); TOTAL CELLS COUNTED 100
[2018-05-20 20:53] LABS: ANISOCYTOSIS 4+; OVALOCYTES 1+; PLATELET COMMENT ADEQUATE; PLATELET GIANT PRESENT; PLATELET LARGE PRESENT; POIKILOCYTOSIS 3+; POLYCHROMASIA 2+; SICKLE RED CELLS 3+; TARGET CELLS 2+
--- NOTE | 2018-05-20 21:11 | ER Document Report ---
ED General - General Chief Complaint: Knee Pain Stated Complaint: RIGHT KNEE PAIN Time Seen by Provider: 05/20/18 18:56 Notes: Patient is a 22-year-old male with sickle cell disease that presents to the emergency department for chief complaint of knee pain. Patient states that this pain started about 2 days ago, he was taking his oxycodone at home, without enough relief so he decided to come to the emergency department. 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 He denies having any fevers, chills, night sweats, chest pain, shortness of breath, nausea, vomiting. He currently rates his pain as a 5 out of 10, aching and occasionally sharp in nature, not particularly worse with movements. He was treated prior to my evaluation with Dilaudid, but still having some pain. Past Medical History: Sickle cell disease Past Surgical History: Gallstone removal, PICC line placement Social History: Denies tobacco, alcohol or illicit drug use. Family History: Reviewed and noncontributory for presenting illness Allergies: Reviewed, see documented allergy list. REVIEW OF SYSTEMS: Unless otherwise stated in this report the patient's positive and negative responses for review of systems for constitutional, eyes, ENT, cardiovascular, respiratory, gastrointestinal, neurological, genitourinary, musculoskeletal, and integumentary systems and related systems to the presenting problem are either as stated in the HPI or were not pertinent or were negative for the symptoms and/or complaints related to the presenting medical problem. PHYSICAL EXAMINATION: Vital signs reviewed, nursing noted reviewed. GENERAL: Well-appearing, well-nourished and in no acute distress. HEAD: Atraumatic, normocephalic. EYES: Eyes appear normal, extraocular movements intact, sclera anicteric, conjunctiva are normal. ENT: nares patent, oropharynx clear without exudates. Moist mucous membranes. NECK: Normal range of motion, supple without lymphadenopathy LUNGS: Breath sounds clear to auscultation bilaterally and equal. No wheezes rales or rhonchi. HEART: Regular rate and rhythm without murmurs ABDOMEN: Soft, nontender, normoactive bowel sounds. No rebound, guarding, or rigidity. No masses appreciated. EXTREMITIES: Nontender, good range of motion, no pitting or edema. Right knee: No pain with range of motion of the knee, no surrounding erythema, or edema. NEUROLOGICAL: No focal neurological deficits. Moves all extremities spontaneously Motor and sensory grossly intact on exam. PSYCH: Normal mood, normal affect. SKIN: Warm, Dry, normal turgor, no rashes or lesions noted on exposed skin TRAVEL OUTSIDE OF THE [place] IN LAST 30 DAYS: No - Related Data Allergies/Adverse Reactions: Coconut * [Coconut] Allergy (Mild, Verified 05/20/18 18:14) transpore tape Allergy (Mild, Uncoded 04/11/18 15:13) Hives Past Medical History - Social History Smoking Status: Never Smoker Frequency of alcohol use: None Drug Abuse: None Family History: Reviewed & Not Pertinent, Arthritis, DM, Hypertension, Other - Sickle cell trait both parents and asthma Patient has suicidal ideation: No Patient has homicidal ideation: No Pulmonary Medical History: Reports: Hx Asthma, Hx Pneumonia Renal/ Medical History: Denies: Hx Peritoneal Dialysis Psychiatric Medical History: Denies: Hx Depression Past Surgical History: Reports: Hx Abdominal Surgery - Gallstones removal, Hx Cholecystectomy, Hx Orthopedic Surgery - Fluid drained from right foot, Hx Vascular Surgery - Port placement - Immunizations Immunizations up to date: Yes Hx Diphtheria, Pertussis, Tetanus Vaccination: Yes Hx Pneumococcal Vaccination: 01/15/13 Physical Exam - Vital signs Vitals: Temp Pulse Resp BP Pulse Ox 98.5 F 115 H 16 118/73 93 05/20/18 18:39 05/20/18 18:39 05/20/18 18:39 05/20/18 18:39 05/20/18 18:39 Course - Re-evaluation Re-evalutation: Patient seen and examined vital signs reviewed. Laboratory data and imaging were ordered as appropriate for the patient's presenting symptoms and complaint, with consideration of any critical or life threatening conditions that may be associated with their obtained history and exam as noted above. Patient was treated with IV fluids, and 2 doses of IV Dilaudid, and Benadryl Results were reviewed when available and demonstrated appropriate elevated reticulocyte count, anemia, at baseline The patient was re-evaluated and was improved, and felt comfortable with discharge, to take his home medications at this time. Evaluation was most consistent with sickle cell pain crisis to the right knee While the patient was in the ED, his PICC line, did clot, we did use 2 doses of alteplase per protocol, without success and difficulty flushing the line, then proceeded to use a flexible wire, to remove any obstruction, the wire was inserted in a sterile fashion, and went in easily, without resistance, and then was removed, the PICC line was then withdrawn, and then flushed twice with 10 cc of normal saline, and flushed easily and philipp back blood easily, patient was unable to receive his second dose of Dilaudid, and he was feeling much better, at this point he is comfortable being discharged home. Results were discussed with the patient at this point, after careful consideration I feel that that patient can be discharged from the emergency department, the patient was educated treatments and reasons to return to the emergency department based on their presumed diagnosis as noted above, they were advised to followup with a primary care physician in 2-3 days. Patient was agreeable to plan of care. *Note is created using voice recognition software and may contain spelling, syntax or grammatical errors. Laboratory 05/20/18 19:45 WBC 10.3 RBC 2.70 L Hgb 8.9 L Hct 25.6 L MCV 95 MCH 33.2 MCHC 34.9 RDW 30.3 H Plt Count 251 Total Counted 100 Seg Neutrophils % Not Reportable Seg Neuts % (Manual) 61 Band Neutrophils % 1 L Lymphocytes % Not Reportable Lymphocytes % (Manual) 25 Monocytes % Not Reportable Monocytes % (Manual) 3 Eosinophils % Not Reportable Eosinophils % (Manual) 9 H Basophils % Not Reportable Basophils % (Manual) 1 Absolute Neutrophils Not Reportable Abs Neuts (Manual) 6.4 Absolute Lymphocytes Not Reportable Abs Lymphs (Manual) 2.6 Absolute Monocytes Not Reportable Abs Monocytes (Manual) 0.3 Absolute Eosinophils Not Reportable Absolute Eos (Manual) 0.9 H Absolute Basophils Not Reportable Abs Basophils (Manual) 0.1 Nucleated RBCs 19 Large Platelets PRESENT Giant Platelets PRESENT Platelet Comment ADEQUATE Polychromasia 2+ Poikilocytosis 3+ Anisocytosis 4+ Sickle Cells 3+ Target Cells 2+ Ovalocytes 1+ Retic Count (auto) 12.79 H Absolute Retic 0.345 H - Vital Signs Vital signs: Temp Pulse Resp BP Pulse Ox 98.5 F 115 H 16 118/73 93 05/20/18 18:39 05/20/18 18:39 05/20/18 18:39 05/20/18 18:39 05/20/18 18:39 - Laboratory Result Diagrams: 05/20/18 19:45 Laboratory results interpreted by me: 05/20/18 19:45 RBC 2.70 L Hgb 8.9 L Hct 25.6 L RDW 30.3 H Band Neutrophils % 1 L Eosinophils % (Manual) 9 H Absolute Eos (Manual) 0.9 H Retic Count (auto) 12.79 H Absolute Retic 0.345 H Discharge - Discharge Clinical Impression: Sickle cell anemia with pain Condition: Stable Disposition: HOME, SELF-CARE Instructions: Sickle Cell Crisis ([facility]) Additional Instructions: Please return to the emergency department if you have any worsening, or concern of your symptoms. Please return to the emergency department if you develop chest pain, difficulty breathing, severe abdominal pain, or ongoing vomiting. Please follow-up with your primary care physician in 2-3 days and any other recommended physicians. If prescribed, take all medications as directed. If you have any questions or concerns do not hesitate to return the emergency department for evaluation. Referrals: VIDA CASTANON MD [Primary Care Provider] - Follow up in 3-5 days
[2018-05-20] MEDS ORDERED: DIPHENHYDRAMINE HCL 50 MG/ML VIAL IV ONE (21:26)
[2018-05-20] MEDS ORDERED: ALTEPLASE INJ 2 MG VIAL (CATH CLEARANCE) IV ONE (21:53)
[2018-05-20] MEDS ORDERED: ALTEPLASE INJ 2 MG VIAL (CATH CLEARANCE) ONE (22:08)
[2018-05-21 03:44] VITALS: BP 133/86
== END 2018-05-21 02:59 | disposition home or self-care (01) ==
LOC: ER 18:12
DX: D57.00 Hb-SS disease with crisis, unspecified (principal); M25.561 Pain in right knee; Z79.899 Other long term (current) drug therapy; J45.909 Unspecified asthma, uncomplicated
CPT/HCPCS: 36591; 96376; 99284; 96361; 96374; 96375; 36415; 85025; 85045; C1769; J2997; J1200; J1170

== ENCOUNTER 2018-05-22 13:08 | Emergency (ER) | payer MEDICAID ==
[2018-05-22] MEDS ORDERED: NORMAL SALINE 1000 ML 1,000 ML IV PRN (14:15)
--- NOTE | 2018-05-22 14:16 | ER Document Report ---
ED Medical Screen (RME) - General Chief Complaint: Sickle Cell Crisis Stated Complaint: KNEE PAIN Time Seen by Provider: 05/22/18 14:14 Notes: 22 years old male with a history of sickle cell disease was seen 3 days ago by me, returns today with pain syndrome. TRAVEL OUTSIDE OF THE [place] IN LAST 30 DAYS: No - Related Data Allergies/Adverse Reactions: Coconut * [Coconut] Allergy (Mild, Verified 05/22/18 13:09) transpore tape Allergy (Mild, Uncoded 05/22/18 13:09) Hives Past Medical History - Social History Family history: None Pulmonary Medical History: Reports: Hx Asthma, Hx Pneumonia Renal/ Medical History: Denies: Hx Peritoneal Dialysis Psychiatric Medical History: Denies: Hx Depression Past Surgical History: Reports: Hx Abdominal Surgery - Gallstones removal, Hx Cholecystectomy, Hx Orthopedic Surgery - Fluid drained from right foot, Hx Vascular Surgery - Port placement - Immunizations Immunizations up to date: Yes Hx Diphtheria, Pertussis, Tetanus Vaccination: Yes History of Influenza Vaccine for 06/2017 - 10/2017 Season: Yes Influenza Administration Date for 06/2017 - 10/2017 Season: 06/02/17 Physical Exam - Vital signs Vitals: Temp Pulse Resp BP Pulse Ox 98.0 F 117 H 20 137/75 H 95 05/22/18 13:18 05/22/18 13:18 05/22/18 13:18 05/22/18 13:18 05/22/18 13:18 Course - Vital Signs Vital signs: Temp Pulse Resp BP Pulse Ox 98.0 F 117 H 20 137/75 H 95 05/22/18 13:18 05/22/18 13:18 05/22/18 13:18 05/22/18 13:18 05/22/18 13:18 Doctor's Discharge - Discharge Referrals: VIDA CASTANON MD [Primary Care Provider] - Follow up as needed
--- NOTE | 2018-05-22 14:58 | ER Document Report ---
ED General - General Chief Complaint: Sickle Cell Crisis Stated Complaint: KNEE PAIN Time Seen by Provider: 05/22/18 14:14 Mode of Arrival: Ambulatory Information source: Patient, [facility] Records Notes: 22-year-old male with sickle cell disease, asthma presents with complaint of right knee pain 2 days. Patient states the pain is been constant, and is currently 4 out of 10. He has had several recent episodes of pain to this right knee. Patient denies any history of trauma to the right knee. Patient states he has not ran out of his home medication. He is here today due to increasing pain of the right knee. Patient reports that this is his typical flare. Patient also reports sinus congestion and headache for the past 4 hours. Patient denies chest pain, syncope, shortness of breath, fever, abdominal pain, nausea, vomiting, diarrhea. TRAVEL OUTSIDE OF THE [place] IN LAST 30 DAYS: No - HPI Onset: Other Onset/Duration: Intermittent, Persistent Quality of pain: Throbbing Severity: Moderate Associated symptoms: denies: Chest pain, Fever, Hurts to breath, Shortness of breath Exacerbated by: Movement Relieved by: Denies Similar symptoms previously: Yes Recently seen / treated by doctor: Yes - May 20, 2018 - Related Data Allergies/Adverse Reactions: Coconut * [Coconut] Allergy (Mild, Verified 05/22/18 13:09) transpore tape Allergy (Mild, Uncoded 05/22/18 13:09) Hives Past Medical History - General Information source: Patient, [facility] Records - Social History Smoking Status: Never Smoker Frequency of alcohol use: None Drug Abuse: None Lives with: Spouse/Significant other Family History: Reviewed & Not Pertinent, Arthritis, DM, Hypertension, Other - Sickle cell trait both parents and asthma Patient has suicidal ideation: No Patient has homicidal ideation: No Pulmonary Medical History: Reports: Hx Asthma, Hx Pneumonia Renal/ Medical History: Denies: Hx Peritoneal Dialysis Psychiatric Medical History: Denies: Hx Depression Past Surgical History: Reports: Hx Abdominal Surgery - Gallstones removal, Hx Cholecystectomy, Hx Orthopedic Surgery - Fluid drained from right foot, Hx Vascular Surgery - Port placement - Immunizations Immunizations up to date: Yes Hx Diphtheria, Pertussis, Tetanus Vaccination: Yes Hx Pneumococcal Vaccination: 01/15/13 Review of Systems - Review of Systems Notes: REVIEW OF SYSTEMS: CONSTITUTIONAL : Denies fever, chills, or sweats. Denies recent illness. Denies weight loss, recent hospitalizations. EENT: Denies visual changes, eye pain. Denies sore throat, oral lesions, difficulty swallowing. CARDIOVASCULAR: Denies chest pain. Denies palpitations. Denies lower extremity edema. RESPIRATORY: Denies cough. Denies shortness of breath, wheezing. GASTROINTESTINAL: Denies abdominal pain or distention. Denies nausea, vomiting , or diarrhea. Denies blood in vomitus, stools, or per rectum. Denies black, tarry stools. Denies constipation. GENITOURINARY: Denies difficulty urinating, painful urination, frequency, blood in urine, testicular pain or penile discharge. MUSCULOSKELETAL: Denies back or neck pain or stiffness. SKIN: Denies rash, lesions or sores. HEMATOLOGIC : Denies easy bruising or bleeding. LYMPHATIC: Denies swollen glands. NEUROLOGICAL: Denies confusion or altered mental status. Denies loss of consciousness. Denies dizziness or lightheadedness. Denies headache. Denies weakness or paralysis. Denies problems difficulty with ambulation, slurred speech. Denies sensory loss, numbness, or tingling. Denies seizures. PSYCHIATRIC: Denies anxiety or stress. Denies depression, suicidal ideation, or Physical Exam - Vital signs Vitals: Temp Pulse Resp BP Pulse Ox 98.0 F 117 H 20 137/75 H 95 05/22/18 13:18 05/22/18 13:18 05/22/18 13:18 05/22/18 13:18 05/22/18 13:18 Interpretation: Hypertensive, Tachycardic - Notes Notes: PHYSICAL EXAMINATION: GENERAL: Well-appearing, well-nourished and in no acute distress. HEAD: Atraumatic, normocephalic. EYES: Pupils equal round and reactive to light, extraocular movements intact, sclera anicteric, conjunctiva are normal. ENT: Nares patent, oropharynx clear without exudates. Moist mucous membranes. NECK: Normal range of motion, supple without lymphadenopathy LUNGS: Breath sounds clear to auscultation bilaterally and equal. No wheezes rales or rhonchi. HEART: Regular rate and rhythm without murmurs ABDOMEN: Soft, nontender, nondistended abdomen. No guarding, no rebound. No masses appreciated. Musculoskeletal: Normal range of motion, no pitting or edema. No cyanosis. NEUROLOGICAL: Cranial nerves grossly intact. Normal speech, normal gait. Normal sensory, motor exams PSYCH: Normal mood, normal affect. SKIN: Warm, Dry, normal turgor, no rashes or lesions noted. Course - Re-evaluation Re-evalutation: 05/24/18 02:03 22-year-old male with sickle cell disease presents with complaint of right knee pain. Patient states right knee pain started 2 days prior to arrival. He states this is typical of his flare. He takes Dilaudid at home but states it has not been working. He denies any fever, chills, chest pain, cough. Patient was seen by myself upon arrival. Vital signs were reviewed. Patient is afebrile , normotensive and not hypoxic. Patient does not appear toxic or dehydrated. They are in no acute distress. Previous medical records and nursing notes reviewed. Patient received IV fluids, Dilaudid, Benadryl. On reevaluation he reports improvement of his pain. Patient provided the opportunity to ask questions, and express concerns. Discharge instructions discussed. Patient is agreeable with discharge home. Return indications explained and discussed with the patient who displays understanding. Patient encouraged to return to the emergency department immediately with any concerns. Results were discussed with the patient at this point, after careful consideration I feel that that patient can be discharged from the emergency department, the patient was educated treatments and reasons to return to the emergency department based on their presumed diagnosis as noted above, they were advised to followup with a primary care physician in 2-3 days. Patient was agreeable to plan of care. Dictation on this chart was performed using voice recognition software and may result in unintended grammatical, spelling, syntax or errors. - Vital Signs Vital signs: Temp Pulse Resp BP Pulse Ox 98.3 F 98 16 130/72 H 98 05/22/18 19:08 05/22/18 19:08 05/22/18 19:08 05/22/18 19:08 05/22/18 19:08 - Laboratory Result Diagrams: 05/22/18 14:45 Laboratory results interpreted by me: 05/22/18 14:45 RBC 2.67 L Hgb 9.0 L Hct 24.4 L MCH 33.9 H MCHC 37.0 H RDW 30.4 H Band Neutrophils % 1 L Monocytes % (Manual) 16 H Abs Monocytes (Manual) 1.6 H Retic Count (auto) 13.84 H Absolute Retic 0.370 H Discharge - Discharge Clinical Impression: Sickle cell pain crisis, Elevated blood pressure reading Right knee pain Qualifiers: Chronicity: acute Qualified Code(s): M25.561 - Pain in right knee Condition: Good Disposition: HOME, SELF-CARE Instructions: Sickle Cell Crisis (OM) Forms: Elevated Blood Pressure Referrals: VIDA CASTANON MD [NO LOCAL MD] - Follow up as needed
[2018-05-22 15:01] LABS: HEMATOCRIT 24.4 % (37.9-51.0); MEAN CORPUSCULAR HEMOGLOBIN 33.9 pg (27.0-33.4); MEAN CORPUSCULAR VOLUME 92 fl (80-97); PLATELET COUNT 243 10^3/uL (150-450); RED BLOOD COUNT 2.67 10^6/uL (4.35-5.55); RED CELL DISTRIBUTION WIDTH 30.4 % (11.5-14.0); RETICULOCYTE COUNT (AUTO) 13.84 % (0.66-2.85); WHITE BLOOD COUNT 10.2 10^3/uL (4.0-10.5)
[2018-05-22] MEDS ORDERED: HYDROMORPHONE HCL INJ/PF 2 MG/ML AMPULE IV ONE ×2 (15:07→18:12)
[2018-05-22] MEDS ORDERED: DIPHENHYDRAMINE HCL 50 MG/ML VIAL IV ONE (15:09)
[2018-05-22] MEDS ORDERED: ONDANSETRON HCL INJ/PF 4 MG/2 ML SDV IV ONE (15:09)
[2018-05-22 15:46] LABS: ABSOLUTE LYMPHOCYTES# (MANUAL) 3.5 10^3/uL (0.5-4.7); ABSOLUTE MONOCYTES # (MANUAL) 1.6 10^3/uL (0.1-1.4); ABSOLUTE NEUTROPHILS# (MANUAL) 4.4 10^3/uL (1.7-8.2); BAND NEUTROPHILS % (MANUAL) 1 % (3-5); BASOPHILS % (MANUAL) 1 % (0-2); EOSINOPHILS % (MANUAL) 6 % (0-6); LYMPHOCYTES % (MANUAL) 33 % (13-45); MONOCYTES % (MANUAL) 16 % (3-13); NUCLEATED RED BLOOD CELLS 8 /100 WBC (0); SEGMENTED NEUTROPHILS % (MAN) 42 % (42-78); TOTAL CELLS COUNTED 100
[2018-05-22 15:50] LABS: ANISOCYTOSIS 4+; PLATELET COMMENT ADEQUATE; POIKILOCYTOSIS 3+; SICKLE RED CELLS 3+; TOXIC GRANULATION SLIGHT
[2018-05-22 19:11] VITALS: BP 130/72
== END 2018-05-22 19:08 | disposition home or self-care (01) ==
LOC: ER 13:08
DX: D57.00 Hb-SS disease with crisis, unspecified (principal); M25.561 Pain in right knee; R03.0 Elevated blood-pressure reading, without diagnosis of hypertension; R09.81 Nasal congestion; R51 Headache; J45.909 Unspecified asthma, uncomplicated
CPT/HCPCS: 96376; 99284; 96361; 96374; 96375; 36415; 85025; 85045; J1200; J1170; J2405

== ENCOUNTER 2018-05-25 18:31 | Emergency (ER) | payer MEDICAID ==
--- NOTE | 2018-05-25 19:02 | ER Document Report ---
ED Medical Screen (RME) - General TRAVEL OUTSIDE OF THE [place] IN LAST 30 DAYS: No <RADHA GALLEGOS - Last Filed: 05/25/18 19:08> <JOHAN HOLLOWAY - Last Filed: 05/26/18 07:47> - General Chief Complaint: Sickle Cell Crisis Stated Complaint: KNEE PAIN Time Seen by Provider: 05/25/18 18:51 Notes: Sickle cell patient with known avascular necrosis of the right knee, scheduled to meet with orthopedist in [place] in the coming weeks to discuss a total knee replacement. Complaining of pain in the right knee today. Says he thinks he overdid it at a latter-day function. Got overheated. He is out of his oxycodone 15 mg tablets that he takes for pain for the past 3 days. His doctor has been unavailable to write him prescriptions. Currently takes folic acid and hydroxyurea. Denies fever or other indications of infection. Looks well. ( RADHA GALLEGOS) - Related Data Allergies/Adverse Reactions: Coconut * [Coconut] Allergy (Mild, Verified 05/25/18 18:54) transpore tape Allergy (Mild, Uncoded 05/25/18 18:54) Hives Past Medical History - Social History Chew tobacco use (# tins/day): No Frequency of alcohol use: None Drug Abuse: None Family history: None Pulmonary Medical History: Reports: Hx Asthma, Hx Pneumonia Renal/ Medical History: Denies: Hx Peritoneal Dialysis Psychiatric Medical History: Denies: Hx Depression Past Surgical History: Reports: Hx Abdominal Surgery - Gallstones removal, Hx Cholecystectomy, Hx Orthopedic Surgery - Fluid drained from right foot, Hx Vascular Surgery - Port placement - Immunizations Immunizations up to date: Yes Hx Diphtheria, Pertussis, Tetanus Vaccination: Yes History of Influenza Vaccine for 06/2017 - 10/2017 Season: Yes Influenza Administration Date for 06/2017 - 10/2017 Season: 06/02/17 <RADHA GALLEGOS - Last Filed: 05/25/18 19:08> - Vital signs Vitals: Temp Pulse Resp BP Pulse Ox 98.2 F 110 H 20 138/86 H 91 L 05/25/18 18:38 05/25/18 18:38 05/25/18 18:38 05/25/18 18:38 05/25/18 18:38 Course <RADHA GALLEGOS - Last Filed: 05/25/18 19:08> - Laboratory Result Diagrams: 05/25/18 19:34 05/25/18 19:34 <JOHAN HOLLOWAY - Last Filed: 05/26/18 07:47> - Re-evaluation Re-evalutation: 05/26/18 07:46 Silvino Valencia night APC and at this patient off to me this morning on my previous morning APC. Silvino informed me that patient was about ready to be discharged after he received his unit of blood. He informed me that he had written up the discharge papers and I which is watching him until he was discharged. The nurse approached me about pain medications for patient prior to discharge. I went back and looked in the chart and patient did not receive anything for quite some time so I went ahead and redid his same orders previously been hydrated 50 mg IV as well as Dilaudid 2 mg IV. Upon completion of that she has a scoop driver and will be discharged home. (JOHAN HOLLOWAY) - Vital Signs Vital signs: Temp Pulse Resp BP Pulse Ox 98.0 F 85 15 136/96 H 99 05/26/18 07:21 05/26/18 07:21 05/26/18 07:21 05/26/18 07:21 05/26/18 07:21 - Laboratory Laboratory results interpreted by me: 05/25/18 05/25/18 05/25/18 19:34 19:34 21:08 RBC 2.30 L Hgb 7.7 L Hct 21.3 L RDW 32.4 H Seg Neuts % (Manual) 34 L Lymphocytes % (Manual) 51 H Abs Lymphs (Manual) 4.9 H Retic Count (auto) 17.03 H Absolute Retic 0.392 H Chloride 109 H Total Bilirubin 3.2 H Direct Bilirubin 1.0 H AST 73 H ALT 16 L Urine Protein 30 H Urine Blood SMALL H Urine Urobilinogen 2.0 H Crossmatch 05/26/18 00:21 RBC Hgb Hct RDW Seg Neuts % (Manual) Lymphocytes % (Manual) Abs Lymphs (Manual) Retic Count (auto) Absolute Retic Chloride Total Bilirubin Direct Bilirubin AST ALT Urine Protein Urine Blood Urine Urobilinogen Crossmatch See Detail Doctor's Discharge <RADHA GALLEGOS - Last Filed: 09/23/18 19:08> <JOHAN HOLLOWAY - Last Filed: 05/26/18 07:47> - Discharge Clinical Impression: Sickle cell crisis, Right knee pain, Anemia Condition: Stable Disposition: HOME, SELF-CARE Additional Instructions: Rest, Ice, Compression, Elevation Tylenol/ibuprofen as needed Light stretches daily Strength exercises as able Moist heat and massage may help F/u with your PCP in 3-5 days for a recheck Keep appointment today with Rodriguez* Return to the ED with any worsening symptoms and/or development of fever, headache, chest pain, palpitations, syncope, shortness of breath, trouble breathing, abdominal pain, n/v/d, muscle weakness/paralysis, numbness/tingling, swelling, redness, or other worsening symptoms that are concerning to you. Forms: Elevated Blood Pressure Referrals: ANDREW WILLIS MD [Primary Care Provider] - Follow up in 3-5 days
[2018-05-25] MEDS ORDERED: NORMAL SALINE 1000 ML 1,000 ML IV ONE (19:11)
[2018-05-25] MEDS ORDERED: DIPHENHYDRAMINE HCL 50 MG/ML VIAL IV ONE ×2 (19:12→23:41)
[2018-05-25] MEDS ORDERED: HYDROMORPHONE HCL INJ/PF 2 MG/ML AMPULE IV ONE (19:12)
[2018-05-25] MEDS ORDERED: ONDANSETRON HCL INJ/PF 4 MG/2 ML SDV IV ONE (19:12)
[2018-05-25 20:11] LABS: ABSOLUTE RETICS # 0.392 10^6/uL (0.028-0.122); HEMATOCRIT 21.3 % (37.9-51.0); MEAN CORPUSCULAR HEMOGLOBIN 33.4 pg (27.0-33.4); MEAN CORPUSCULAR VOLUME 93 fl (80-97); PLATELET COUNT 216 10^3/uL (150-450); RED CELL DISTRIBUTION WIDTH 32.4 % (11.5-14.0); RETICULOCYTE COUNT (AUTO) 17.03 % (0.66-2.85)
[2018-05-25 20:14] LABS: ALANINE AMINOTRANSFERASE 16 U/L (21-72); ALBUMIN 4.1 g/dL (3.5-5.0); ALKALINE PHOSPHATASE 108 U/L (38-126); ANION GAP 6 (5-19); ASPARTATE AMINO TRANSFERASE 73 U/L (17-59); BILIRUBIN,TOTAL 3.2 mg/dL (0.2-1.3); BLOOD UREA NITROGEN 12 mg/dL (7-20); CALCIUM 8.9 mg/dL (8.4-10.2); CARBON DIOXIDE 27 mmol/L (22-30); CHLORIDE 109 mmol/L (98-107); GLUCOSE 98 mg/dL (75-110); POTASSIUM 4.5 mmol/L (3.6-5.0); SODIUM 141.8 mmol/L (137-145); TOTAL PROTEIN 7.7 g/dL (6.3-8.2)
[2018-05-25 20:23] LABS: ABSOLUTE LYMPHOCYTES# (MANUAL) 4.9 10^3/uL (0.5-4.7); ABSOLUTE MONOCYTES # (MANUAL) 0.9 10^3/uL (0.1-1.4); ABSOLUTE NEUTROPHILS# (MANUAL) 3.2 10^3/uL (1.7-8.2); BASOPHILS % (MANUAL) 0 % (0-2); EOSINOPHILS % (MANUAL) 5 % (0-6); LYMPHOCYTES % (MANUAL) 51 % (13-45); MONOCYTES % (MANUAL) 9 % (3-13); NUCLEATED RED BLOOD CELLS 113 /100 WBC (0); SEGMENTED NEUTROPHILS % (MAN) 34 % (42-78); TOTAL CELLS COUNTED 100
[2018-05-25 20:24] LABS: ANISOCYTOSIS 4+; PLATELET COMMENT ADEQUATE; POIKILOCYTOSIS 4+; POLYCHROMASIA 4+; SICKLE RED CELLS 4+
[2018-05-25 20:27] LABS: HEMOGLOBIN 7.7 g/dL (13.5-17.0); WHITE BLOOD COUNT 8.9 10^3/uL (4.0-10.5)
[2018-05-25 21:26] LABS: APPEARANCE,URINE CLEAR; BILIRUBIN,URINE NEGATIVE (NEGATIVE); COLOR,URINE YELLOW; GLUCOSE, URINE NEGATIVE (NEGATIVE); KETONES,URINE NEGATIVE (NEGATIVE); LEUKOCYTE ESTERASE,URINE NEGATIVE (NEGATIVE); NITRITE,URINE NEGATIVE (NEGATIVE); PROTEIN,URINE 30 mg/dL (NEGATIVE); URINE SPECIFIC GRAVITY 1.012
[2018-05-25] MEDS ORDERED: NORMAL SALINE 250 ML IV PRN (23:41)
[2018-05-25] MEDS ORDERED: RINGERS SOLUTION,LACTATED 1,000 ML IV ONE (23:43)
--- NOTE | 2018-05-25 23:46 | ER Document Report ---
ED General - General Chief Complaint: Sickle Cell Crisis Stated Complaint: KNEE PAIN Time Seen by Provider: 05/25/18 18:51 TRAVEL OUTSIDE OF THE [place] IN LAST 30 DAYS: No - HPI Notes: Patient is a 22-year-old male with history of sickle cell and avascular necrosis to his right knee who presents to the ED complaining of right knee pain. Patient states that he overdid it at a pentecostalism function today, but did not have any obvious injury. Patient has otherwise been eating and drinking without any difficulties. He is urinating normally and having normal bowel movements. Patient was recently evaluated 3 days ago and had a stable workup noted at that time. Patient states that he does not feel as bad as his normal crisis and is scheduled for an appointment with Rodriguez for a blood exchange tomorrow. No melena or hematochezia. Denies any headache, fever, neck pain, URI, sore throat, chest pain, palpitations, syncope, cough, shortness of breath , wheeze, dyspnea, abdominal pain, nausea/vomiting/diarrhea, urinary retention, dysuria, hematuria, loss of control of bowel or bladder, numbness/tingling, saddle anesthesia, muscle paralysis/weakness, or rash. - Related Data Allergies/Adverse Reactions: Coconut * [Coconut] Allergy (Mild, Verified 05/25/18 18:54) transpore tape Allergy (Mild, Uncoded 05/25/18 18:54) Hives Past Medical History - Social History Smoking Status: Never Smoker Chew tobacco use (# tins/day): No Frequency of alcohol use: None Drug Abuse: None Family History: Reviewed & Not Pertinent, Arthritis, DM, Hypertension, Other - Sickle cell trait both parents and asthma Patient has suicidal ideation: No Patient has homicidal ideation: No Pulmonary Medical History: Reports: Hx Asthma, Hx Pneumonia Renal/ Medical History: Denies: Hx Peritoneal Dialysis Psychiatric Medical History: Denies: Hx Depression Past Surgical History: Reports: Hx Abdominal Surgery - Gallstones removal, Hx Cholecystectomy, Hx Orthopedic Surgery - Fluid drained from right foot, Hx Vascular Surgery - Port placement - Immunizations Immunizations up to date: Yes Hx Diphtheria, Pertussis, Tetanus Vaccination: Yes Hx Pneumococcal Vaccination: 01/15/13 Review of Systems - Review of Systems -: Yes All other systems reviewed and negative Physical Exam - Vital signs Vitals: Temp Pulse Resp BP Pulse Ox 98.2 F 110 H 20 138/86 H 91 L 05/25/18 18:38 05/25/18 18:38 05/25/18 18:38 05/25/18 18:38 05/25/18 18:38 - Notes Notes: PHYSICAL EXAMINATION: GENERAL: Well-appearing, well-nourished and in no acute distress. HEAD: Atraumatic, normocephalic. EYES: Pupils equal round and reactive to light, extraocular movements intact, sclera anicteric, conjunctiva are normal. ENT: Nares patent and without discharge. oropharynx clear without exudates. No tonsilar hypertrophy or erythema. Moist mucous membranes. NECK: Normal range of motion, supple without lymphadenopathy LUNGS: Breath sounds clear to auscultation bilaterally and equal. No wheezes rales or rhonchi. HEART: Regular rate and rhythm without murmurs, rubs, gallops. ABDOMEN: Soft, nontender, nondistended abdomen. No guarding, no rebound. No masses appreciated. Normal bowel sounds present. No CVA tenderness bilaterally. Musculoskeletal: Rt knee: FROM to passive/active. Strength 5+/5. N/v intact. Extremities: No cyanosis, clubbing, or edema b/l. Peripheral pulses 2+. Capillary refill less than 3 seconds. NEUROLOGICAL: Normal speech, normal gait. PSYCH: Normal mood, normal affect. SKIN: Warm, Dry, normal turgor, no rashes or lesions noted. Course - Re-evaluation Re-evalutation: 05/25/18 23:45 I did call and discuss with Dr. Carlos, his oncologist, who recommended 1 unit of blood and if able, discharge to home. She would like him to keep his appointment with [place] tomorrow. Pt is in agreement with this plan. Fluids and meds ordered along with 1 unit of blood. 05/26/18 04:57 Patient is an afebrile, well-hydrated 22-year-old male who presents to the ED with sickle cell crisis without acute chest syndrome. Vitals are acceptable without any significant tachycardia, tachypnea, or hypoxia. PE is otherwise unremarkable for any neurovascular compromise, obvious tendon/ligament rupture, obvious fracture/dislocation, septic joint. Patient is nontoxic-appearing and is tolerating p.o. without difficulties. Patient was given his typical medications for an acute flareup which improved his symptoms. Patient states that he is feeling much better. No further labs or imaging warranted at this time based on H&P. Per his oncologist, 1 unit of blood has been started and he will be cleared for discharge thereafter. Recheck with Michael as scheduled today. Recheck with your oncologist this week as well. Return to the ED with any worsening/concerning symptoms otherwise as reviewed in discharge. Patient is in agreement. - Vital Signs Vital signs: Temp Pulse Resp BP Pulse Ox 98.2 F 110 H 20 138/86 H 91 L 05/25/18 18:38 05/25/18 18:38 05/25/18 18:38 05/25/18 18:38 05/25/18 18:38 - Laboratory Result Diagrams: 05/25/18 19:34 05/25/18 19:34 Laboratory results interpreted by me: 05/25/18 05/25/18 05/25/18 19:34 19:34 21:08 RBC 2.30 L Hgb 7.7 L Hct 21.3 L RDW 32.4 H Seg Neuts % (Manual) 34 L Lymphocytes % (Manual) 51 H Abs Lymphs (Manual) 4.9 H Retic Count (auto) 17.03 H Absolute Retic 0.392 H Chloride 109 H Total Bilirubin 3.2 H Direct Bilirubin 1.0 H AST 73 H ALT 16 L Urine Protein 30 H Urine Blood SMALL H Urine Urobilinogen 2.0 H Crossmatch 05/26/18 00:21 RBC Hgb Hct RDW Seg Neuts % (Manual) Lymphocytes % (Manual) Abs Lymphs (Manual) Retic Count (auto) Absolute Retic Chloride Total Bilirubin Direct Bilirubin AST ALT Urine Protein Urine Blood Urine Urobilinogen Crossmatch See Detail Discharge - Discharge Clinical Impression: Sickle cell crisis Right knee pain Qualifiers: Chronicity: acute Qualified Code(s): M25.561 - Pain in right knee Anemia Qualifiers: Anemia type: unspecified type Qualified Code(s): D64.9 - Anemia, unspecified Condition: Stable Disposition: HOME, SELF-CARE Additional Instructions: Rest, Ice, Compression, Elevation Tylenol/ibuprofen as needed Light stretches daily Strength exercises as able Moist heat and massage may help F/u with your PCP in 3-5 days for a recheck Keep appointment today with Michael* Return to the ED with any worsening symptoms and/or development of fever, headache, chest pain, palpitations, syncope, shortness of breath, trouble breathing, abdominal pain, n/v/d, muscle weakness/paralysis, numbness/tingling, swelling, redness, or other worsening symptoms that are concerning to you. Forms: Elevated Blood Pressure Referrals: ANDREW WILLIS MD [Primary Care Provider] - Follow up in 3-5 days
[2018-05-26] MEDS: HYDROMORPHONE HCL INJ/PF 2 MG/ML AMPULE IV PRN ×3 (00:24→04:34)
[2018-05-26] MEDS ORDERED: DIPHENHYDRAMINE HCL 50 MG/ML VIAL ONE (04:32)
[2018-05-26] MEDS ORDERED: DIPHENHYDRAMINE HCL 50 MG/ML VIAL IV ONE (07:45)
[2018-05-26] MEDS ORDERED: HYDROMORPHONE HCL INJ/PF 2 MG/ML AMPULE IV ONE (07:45)
[2018-05-26] MEDS ORDERED: NORMAL SALINE 10 ML SDV (AFTER EACH USE) IV PRN (08:23)
[2018-05-26 09:52] VITALS: BP 132/94
[2018-05-26] MEDS ORDERED: NORMAL SALINE 10 ML SDV (SCHEDULED) IV SCH (10:00)
== END 2018-05-26 09:53 | disposition home or self-care (01) ==
LOC: ER 18:31
DX: D57.00 Hb-SS disease with crisis, unspecified (principal); M25.561 Pain in right knee; Z91.018 Allergy to other foods; Z88.8 Allergy status to other drugs, medicaments and biological substances; J45.909 Unspecified asthma, uncomplicated
CPT/HCPCS: 36591; 96376; 99284; 96361; 96374; 96375; 86900; 86901; 36415; 36430; 86850; 86922; 85025; 85045; 80053; 81001; P9016; J1200 ×2; J1170 ×2; J2405; J1642

== ENCOUNTER 2018-05-31 20:04 | Emergency (ER) | payer MEDICAID ==
--- NOTE | 2018-05-31 20:22 | ER Document Report ---
ED Medical Screen (RME) - General Chief Complaint: Knee Pain Stated Complaint: RIGHT KNEE PAIN Time Seen by Provider: 05/31/18 20:17 Notes: 22 years old male with sickle cell disease visits here every week is has an right knee pain but sitting very comfortably. TRAVEL OUTSIDE OF THE [place] IN LAST 30 DAYS: No - Related Data Allergies/Adverse Reactions: Coconut * [Coconut] Allergy (Mild, Verified 05/31/18 20:08) transpore tape Allergy (Mild, Uncoded 05/31/18 20:08) Hives Past Medical History - Social History Family history: None Pulmonary Medical History: Reports: Hx Asthma, Hx Pneumonia Renal/ Medical History: Denies: Hx Peritoneal Dialysis Psychiatric Medical History: Denies: Hx Depression Past Surgical History: Reports: Hx Abdominal Surgery - Gallstones removal, Hx Cholecystectomy, Hx Orthopedic Surgery - Fluid drained from right foot, Hx Vascular Surgery - Port placement - Immunizations Immunizations up to date: Yes Hx Diphtheria, Pertussis, Tetanus Vaccination: Yes History of Influenza Vaccine for 06/2017 - 10/2017 Season: Yes Influenza Administration Date for 06/2017 - 10/2017 Season: 06/02/17 Physical Exam - Vital signs Vitals: Temp Pulse Resp BP Pulse Ox 98.3 F 110 H 18 131/93 H 95 05/31/18 20:16 05/31/18 20:16 05/31/18 20:16 05/31/18 20:16 05/31/18 20:16 Course - Vital Signs Vital signs: Temp Pulse Resp BP Pulse Ox 98.3 F 110 H 18 131/93 H 95 05/31/18 20:16 05/31/18 20:16 05/31/18 20:16 05/31/18 20:16 05/31/18 20:16 Doctor's Discharge - Discharge Referrals: ANDREW WILLIS MD [Primary Care Provider] - Follow up as needed
[2018-05-31] MEDS ORDERED: DIPHENHYDRAMINE HCL 50 MG/ML VIAL IV ONE (20:56)
[2018-05-31] MEDS ORDERED: HYDROMORPHONE HCL INJ/PF 2 MG/ML AMPULE IV PRN (20:56)
[2018-05-31 21:05] LABS: ALANINE AMINOTRANSFERASE 8 U/L (21-72); ALBUMIN 5.3 g/dL (3.5-5.0); ALKALINE PHOSPHATASE 130 U/L (38-126); ANION GAP 14 (5-19); ASPARTATE AMINO TRANSFERASE 81 U/L (17-59); BILIRUBIN,DIRECT 1.4 mg/dL (0.0-0.4); BLOOD UREA NITROGEN 14 mg/dL (7-20); CALCIUM 9.5 mg/dL (8.4-10.2); CARBON DIOXIDE 25 mmol/L (22-30); CHLORIDE 103 mmol/L (98-107); GLUCOSE 84 mg/dL (75-110); SODIUM 141.5 mmol/L (137-145)
[2018-05-31 21:36] LABS: ABSOLUTE RETICS # 0.317 10^6/uL (0.028-0.122); HEMATOCRIT 29.9 % (37.9-51.0); HEMOGLOBIN 10.4 g/dL (13.5-17.0); MEAN CORPUSCULAR HEMOGLOBIN 33.3 pg (27.0-33.4); MEAN CORPUSCULAR HGB CONC 34.7 g/dL (32.0-36.0); MEAN CORPUSCULAR VOLUME 96 fl (80-97); PLATELET COUNT 212 10^3/uL (150-450); RED BLOOD COUNT 3.12 10^6/uL (4.35-5.55); RED CELL DISTRIBUTION WIDTH 28.4 % (11.5-14.0); RETICULOCYTE COUNT (AUTO) 10.17 % (0.66-2.85); WHITE BLOOD COUNT 9.5 10^3/uL (4.0-10.5)
[2018-05-31 22:05] LABS: ABSOLUTE LYMPHOCYTES# (MANUAL) 1.6 10^3/uL (0.5-4.7); ABSOLUTE MONOCYTES # (MANUAL) 0.8 10^3/uL (0.1-1.4); ABSOLUTE NEUTROPHILS# (MANUAL) 6.8 10^3/uL (1.7-8.2); BASOPHILS % (MANUAL) 1 % (0-2); EOSINOPHILS % (MANUAL) 2 % (0-6); LYMPHOCYTES % (MANUAL) 17 % (13-45); MONOCYTES % (MANUAL) 8 % (3-13); NUCLEATED RED BLOOD CELLS 26 /100 WBC (0); SEGMENTED NEUTROPHILS % (MAN) 72 % (42-78); TOTAL CELLS COUNTED 100
[2018-05-31] MEDS ORDERED: DIPHENHYDRAMINE HCL 50 MG/ML VIAL ONE (22:06)
[2018-05-31 22:13] LABS: ANISOCYTOSIS 4+; POIKILOCYTOSIS 3+; POLYCHROMASIA 1+; SICKLE RED CELLS 2+; TOXIC VACUOLATION PRESENT
[2018-05-31 22:14] LABS: PLATELET COMMENT ADEQUATE; TARGET CELLS 1+
--- NOTE | 2018-05-31 22:49 | ER Document Report ---
ED Extremity Problem, Lower - General Mode of Arrival: Ambulatory Information source: Patient TRAVEL OUTSIDE OF THE [place] IN LAST 30 DAYS: No <NASIR PARRISH - Last Filed: 06/01/18 06:22> <COMFORT DAVIS - Last Filed: 06/01/18 16:41> - General Chief Complaint: Knee Pain Stated Complaint: RIGHT KNEE PAIN Time Seen by Provider: 05/31/18 20:17 Notes: Patient is a 22-year-old male who presents with chief complaint of right knee pain x2 days and possible sickle cell crisis. Patient states his pain is usually located in his right knee. Patient denies any other symptoms. (NASIR PARRISH) Pain is rated 7/10, constant and aching in nature in the right knee where the patient has known osteonecrosis. Denies chest pain or shortness of breath. ( COMFORT DAVIS) - Related Data Allergies/Adverse Reactions: Coconut * [Coconut] Allergy (Mild, Verified 05/31/18 20:08) transpore tape Allergy (Mild, Uncoded 05/31/18 20:08) Hives Past Medical History - General Information source: Patient - Social History Smoking Status: Never Smoker Frequency of alcohol use: None Drug Abuse: None Family History: Reviewed & Not Pertinent, Arthritis, DM, Hypertension, Other - Sickle cell trait both parents and asthma Patient has suicidal ideation: No Patient has homicidal ideation: No Pulmonary Medical History: Reports: Hx Asthma, Hx Pneumonia Renal/ Medical History: Denies: Hx Peritoneal Dialysis Psychiatric Medical History: Denies: Hx Depression Past Surgical History: Reports: Hx Abdominal Surgery - Gallstones removal, Hx Cholecystectomy, Hx Orthopedic Surgery - Fluid drained from right foot, Hx Vascular Surgery - Port placement - Immunizations Immunizations up to date: Yes Hx Diphtheria, Pertussis, Tetanus Vaccination: Yes Hx Pneumococcal Vaccination: 01/15/13 <NASIR PARRISH - Last Filed: 06/01/18 06:22> Review of Systems - Review of Systems Musculoskeletal: See HPI <NASIR PARRISH - Last Filed: 06/01/18 06:22> <COMFORT DAVIS - Last Filed: 06/01/18 16:41> - Review of Systems Notes: Unless otherwise stated in this report the patient's positive and negative responses for review of systems for constitutional, eyes, ENT, cardiovascular, respiratory, gastrointestinal, neurological, genitourinary, musculoskeletal, and integumentary systems and related systems to the presenting problem are either as stated in the HPI or were not pertinent or were negative for the symptoms and/or complaints related to the presenting medical problem. (COMFORT DAVIS) Physical Exam <NASIR PARRISH - Last Filed: 06/01/18 06:22> <COMFORT DAVIS - Last Filed: 06/01/18 16:41> - Vital signs Vitals: Temp Pulse Resp BP Pulse Ox 98.3 F 110 H 18 131/93 H 95 05/31/18 20:16 05/31/18 20:16 05/31/18 20:16 05/31/18 20:16 05/31/18 20:16 - Notes Notes: PHYSICAL EXAMINATION: GENERAL: Well-appearing, well-nourished and in no acute distress. HEAD: Atraumatic, normocephalic. EYES: Pupils equal round and reactive to light, extraocular movements intact, sclera anicteric, conjunctiva are normal. ENT: Nares patent, oropharynx clear without exudates. Moist mucous membranes. NECK: Normal range of motion, supple without lymphadenopathy LUNGS: Breath sounds clear to auscultation bilaterally and equal. No wheezes rales or rhonchi. HEART: Regular rate and rhythm without murmurs ABDOMEN: Soft, nontender, nondistended abdomen. No guarding, no rebound. No masses appreciated. Musculoskeletal: Normal range of motion, no pitting or edema. No cyanosis. NEUROLOGICAL: Cranial nerves grossly intact. Normal speech, normal gait. Normal sensory, motor exams PSYCH: Normal mood, normal affect. SKIN: Warm, Dry, normal turgor, no rashes or lesions noted. (NASIR PARRISH) Course - Laboratory Result Diagrams: 05/31/18 21:18 05/31/18 20:38 <NASIR PARRISH - Last Filed: 06/01/18 06:22> - Laboratory Result Diagrams: 05/31/18 21:18 05/31/18 20:38 <COMFORT DAVIS - Last Filed: 06/01/18 16:41> - Re-evaluation Re-evalutation: 09/29/18 22:47 Multiple attempts to gain IV access have been unsuccessful including ultrasound- guided IV placement. Patient offered IM medications, patient declines and would like nursing to continue to attempt IV access. Reticulocyte count 10. Reticulocyte count 10.17, absolute reticulocyte 0.317. Total bili 4.0. Patient was given several doses of analgesia a as well as IV fluids after IV access was obtained. Patient reports improvement of his symptoms. Patient will be discharged home in stable condition. (NASIR PARRISH) - Vital Signs Vital signs: Temp Pulse Resp BP Pulse Ox 98.3 F 110 H 18 124/80 95 05/31/18 20:16 05/31/18 20:16 05/31/18 20:16 06/01/18 03:00 06/01/18 03:01 - Laboratory Laboratory results interpreted by in: 05/31/18 05/31/18 20:38 21:18 RBC 3.12 L Hgb 10.4 L Hct 29.9 L RDW 28.4 H Retic Count (auto) 10.17 H Absolute Retic 0.317 H Total Bilirubin 4.0 H Direct Bilirubin 1.4 H AST 81 H ALT 8 L Alkaline Phosphatase 130 H Total Protein 10.0 H Albumin 5.3 H Discharge <NASIR PARRISH - Last Filed: 06/01/18 06:22> <COMFORT DAVIS - Last Filed: 06/01/18 16:41> - Discharge Clinical Impression: Sickle cell crisis Knee pain Qualifiers: Chronicity: acute Laterality: right Qualified Code(s): M25.561 - Pain in right knee Condition: Stable Disposition: HOME, SELF-CARE Additional Instructions: Sickle Cell Crisis You have "sickle cell crisis." Sickle cell disease is caused by abnormal hemoglobin. This hemoglobin can deform red blood cells into a sickle shape. These abnormal blood cells can block blood vessels. This causes the pain of sickle cell crisis. Sickle cell crisis can occur any time. But attacks are more likely with acute infection, dehydration, or altitude change. A crisis usually causes pain in the legs, back, abdomen, and chest. Sometimes the pain may ease and return later. The usual treatment is oxygen, pain medication, IV fluids, and treatment of infection. Attacks may take a couple of days to resolve. Return if the pain becomes more severe, or if there are new symptoms. Referrals: ANDREW WILLIS MD [Primary Care Provider] - Follow up as needed
[2018-05-31] MEDS ORDERED: NORMAL SALINE 1000 ML 1,000 ML IV ONE (23:46)
[2018-05-31] MEDS: HYDROMORPHONE HCL INJ/PF 2 MG/ML AMPULE IV PRN (23:50)
[2018-06-01] MEDS ORDERED: DIPHENHYDRAMINE HCL 50 MG/ML VIAL IV ONE (01:05)
[2018-06-01] MEDS: HYDROMORPHONE HCL INJ/PF 2 MG/ML AMPULE IV PRN (01:13)
[2018-06-01] MEDS ORDERED: DIPHENHYDRAMINE HCL 50 MG/ML VIAL ONE (01:26)
[2018-06-01 03:08] VITALS: BP 124/80
== END 2018-06-01 03:20 | disposition home or self-care (01) ==
LOC: ER 20:04
DX: D57.00 Hb-SS disease with crisis, unspecified (principal); M87.9 Osteonecrosis, unspecified; M25.561 Pain in right knee; J45.909 Unspecified asthma, uncomplicated; Z91.018 Allergy to other foods; Z88.8 Allergy status to other drugs, medicaments and biological substances
CPT/HCPCS: 96376; 99283; 96361; 96374; 96375; 36415; 85025; 85045; 80053; J1200 ×2; J1170 ×2

== ENCOUNTER 2018-06-04 18:24 | Emergency (ER) | payer MEDICAID ==
[2018-06-04] MEDS ORDERED: NORMAL SALINE 1000 ML 1,000 ML IV PRN (18:59)
--- NOTE | 2018-06-04 19:00 | ER Document Report ---
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 Multiple ED visit comes with pain syndrome. TRAVEL OUTSIDE OF THE [place] IN LAST 30 DAYS: No - Related Data Allergies/Adverse Reactions: Coconut * [Coconut] Allergy (Mild, Verified 06/04/18 18:27) transpore tape Allergy (Mild, Uncoded 06/04/18 18:27) Hives Past Medical History - Social History Family history: None Pulmonary Medical History: Reports: Hx Asthma, Hx Pneumonia Renal/ Medical History: Denies: Hx Peritoneal Dialysis Psychiatric Medical History: Denies: Hx Depression Past Surgical History: Reports: Hx Abdominal Surgery - Gallstones removal, Hx Cholecystectomy, Hx Orthopedic Surgery - Fluid drained from right foot, Hx Vascular Surgery - Port placement - Immunizations Immunizations up to date: Yes Hx Diphtheria, Pertussis, Tetanus Vaccination: Yes History of Influenza Vaccine for 06/2017 - 10/2017 Season: Yes Influenza Administration Date for 06/2017 - 10/2017 Season: 06/02/17 Physical Exam - Vital signs Vitals: Temp Pulse Resp BP Pulse Ox 99.2 F 110 H 16 128/92 H 93 06/04/18 18:32 06/04/18 18:32 06/04/18 18:32 06/04/18 18:32 06/04/18 18:32 Course - Vital Signs Vital signs: Temp Pulse Resp BP Pulse Ox 99.2 F 110 H 16 128/92 H 93 06/04/18 18:32 06/04/18 18:32 06/04/18 18:32 06/04/18 18:32 06/04/18 18:32 Doctor's Discharge - Discharge Referrals: ANDREW WILLIS MD [Primary Care Provider] - Follow up as needed
[2018-06-04] MEDS ORDERED: HYDROMORPHONE HCL INJ/PF 2 MG/ML AMPULE IV ONE ×3 (19:25→22:55)
[2018-06-04] MEDS ORDERED: ONDANSETRON HCL INJ/PF 4 MG/2 ML SDV IV ONE (19:26)
[2018-06-04] MEDS ORDERED: DIPHENHYDRAMINE HCL 25 MG CAPSULE PO ONE ×2 (19:26→22:56)
--- NOTE | 2018-06-04 19:31 | ER Document Report ---
ED General - General Chief Complaint: Sickle Cell Crisis Stated Complaint: BACK PAIN Time Seen by Provider: 06/04/18 18:58 Notes: Patient is a 22-year-old male that comes to the emergency department for chief complaint of sickle cell pain. He states that he has 3 out of 5 pain in his mid to lower back and 4 out of 5 pain in his right knee area. He reports these is common locations for his sickle cell crisis pain. He denies injury, fever, difficulty breathing, chest pain, abdominal pain, vomiting, headache. He states he took his oxycodone at home but it did not help his pain. He follows with Dr. Cralos hematology. Past medical history includes avascular necrosis of the distal right femur, asthma, cholecystectomy, he does not currently have a port but he has a follow-up for another one to be placed. TRAVEL OUTSIDE OF THE [place] IN LAST 30 DAYS: No - Related Data Allergies/Adverse Reactions: Coconut * [Coconut] Allergy (Mild, Verified 06/04/18 18:27) transpore tape Allergy (Mild, Uncoded 06/04/18 18:27) Hives Past Medical History - General Information source: Patient - Social History Smoking Status: Never Smoker Chew tobacco use (# tins/day): No Frequency of alcohol use: Rare Drug Abuse: None Lives with: Family Family History: Reviewed & Not Pertinent, Arthritis, DM, Hypertension, Other - Sickle cell trait both parents and asthma Patient has suicidal ideation: No Patient has homicidal ideation: No Pulmonary Medical History: Reports: Hx Asthma, Hx Pneumonia Renal/ Medical History: Denies: Hx Peritoneal Dialysis Psychiatric Medical History: Denies: Hx Depression Past Surgical History: Reports: Hx Abdominal Surgery - Gallstones removal, Hx Cholecystectomy, Hx Orthopedic Surgery - Fluid drained from right foot, Hx Vascular Surgery - Port placement - Immunizations Immunizations up to date: Yes Hx Diphtheria, Pertussis, Tetanus Vaccination: Yes Hx Pneumococcal Vaccination: 01/15/13 Review of Systems - Review of Systems Constitutional: No symptoms reported EENT: No symptoms reported Cardiovascular: See HPI Respiratory: No symptoms reported Gastrointestinal: No symptoms reported Genitourinary: No symptoms reported Male Genitourinary: No symptoms reported Musculoskeletal: See HPI Skin: No symptoms reported Hematologic/Lymphatic: No symptoms reported Neurological/Psychological: No symptoms reported Physical Exam - Vital signs Vitals: Temp Pulse Resp BP Pulse Ox 99.2 F 110 H 16 128/92 H 93 06/04/18 18:32 10 18:32 06/04/18 18:32 06/04/18 18:32 06/04/18 18:32 - Notes Notes: GENERAL: Alert, interacts well. No acute distress. HEAD: Normocephalic, atraumatic. EYES: Pupils equal, round, and reactive to light. Extraocular movements intact. ENT: Oral mucosa moist, tongue midline. Unremarkable oral pharyngeal exam. NECK: Full range of motion. Supple. Trachea midline. LUNGS: Clear to auscultation bilaterally, no wheezes, rales, or rhonchi. No respiratory distress. HEART: Mildly tachycardic, normal rate, no rhythm. No murmur. ABDOMEN: Soft, non-tender. Non-distended. Bowel sounds present in all 4 quadrants. EXTREMITIES: Moves all 4 extremities spontaneously. No edema, normal radial and dorsalis pedis pulses bilaterally. No cyanosis. BACK: no cervical, thoracic, lumbar midline tenderness. No saddle anesthesia, normal distal neurovascular exam. NEUROLOGICAL: Alert and oriented x3. Normal speech. [cranial nerves II through XII grossly intact]. PSYCH: Normal affect, normal mood. SKIN: Warm, dry, normal turgor. No rashes or lesions noted. Course - Re-evaluation Re-evalutation: Patient does not appear to be in any distress, he is mildly tachycardic, no tachypnea, clear lung sounds, no fever. CBC without significant change from prior, no anemia requiring intervention, no leukocytosis or shift. Bilirubin is not significantly elevated or significantly changed from prior. Reticulocyte count without significant change from prior. Pulse oxygen reading on the monitor appears to show hypoxia, entered the room, patient states there is something wrong with the finger device, this was removed and another one was placed, now it is reading 95-96% on room air, no tachypnea, patient denies shortness of breath. Patient reporting some improvement after pain medications but not resolution of symptoms. Will reevaluate. 06/05/18 22:00 Patient has received multiple doses of medication. I reevaluated him at bedside , his heart rate is in the low 100s and in the 80s. Pulse oxygen saturation is normal. Patient states that he feels great and wants to go home. 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 Discussed return precautions in detail, patient states understanding and agreement. - Vital Signs Vital signs: Temp Pulse Resp BP Pulse Ox 99.2 F 110 H 24 H 138/95 H 95 06/04/18 18:32 06/04/18 18:32 06/05/18 00:05 06/05/18 00:05 06/04/18 22:01 - Laboratory Result Diagrams: 06/04/18 20:18 06/04/18 20:18 Laboratory results interpreted by me: 06/04/18 06/04/18 06/04/18 20:18 20:18 20:48 RBC 2.79 L Hgb 9.4 L Hct 26.6 L MCH 33.8 H RDW 28.8 H Retic Count (auto) 12.84 H Absolute Retic 0.358 H Total Bilirubin 3.4 H Direct Bilirubin 1.2 H AST 62 H ALT 20 L Alkaline Phosphatase 133 H Total Protein 8.9 H Urine Protein 100 H Urine Urobilinogen 4.0 H Urine Ascorbic Acid 40 H Discharge - Discharge Clinical Impression: Sickle cell crisis Knee pain Qualifiers: Chronicity: acute Laterality: right Qualified Code(s): M25.561 - Pain in right knee Condition: Stable Disposition: HOME, SELF-CARE Additional Instructions: Follow-up closely with your multiple drill operator for additional evaluation and management. Return if you worsen including severe pain, fever, difficulty breathing, vomiting, or any other concerning or worsening symptoms. Referrals: ANDREW WILLIS MD [Primary Care Provider] - Follow up as needed
[2018-06-04 20:34] LABS: ABSOLUTE RETICS # 0.358 10^6/uL (0.028-0.122); HEMATOCRIT 26.6 % (37.9-51.0); HEMOGLOBIN 9.4 g/dL (13.5-17.0); MEAN CORPUSCULAR HEMOGLOBIN 33.8 pg (27.0-33.4); MEAN CORPUSCULAR HGB CONC 35.4 g/dL (32.0-36.0); MEAN CORPUSCULAR VOLUME 95 fl (80-97); PLATELET COUNT 323 10^3/uL (150-450); RED BLOOD COUNT 2.79 10^6/uL (4.35-5.55); RED CELL DISTRIBUTION WIDTH 28.8 % (11.5-14.0); RETICULOCYTE COUNT (AUTO) 12.84 % (0.66-2.85); WHITE BLOOD COUNT 10.1 10^3/uL (4.0-10.5)
[2018-06-04 20:43] LABS: ALANINE AMINOTRANSFERASE 20 U/L (21-72); ALBUMIN 4.8 g/dL (3.5-5.0); ALKALINE PHOSPHATASE 133 U/L (38-126); ANION GAP 12 (5-19); ASPARTATE AMINO TRANSFERASE 62 U/L (17-59); BILIRUBIN,DIRECT 1.2 mg/dL (0.0-0.4); BILIRUBIN,TOTAL 3.4 mg/dL (0.2-1.3); BLOOD UREA NITROGEN 13 mg/dL (7-20); CALCIUM 9.5 mg/dL (8.4-10.2); CARBON DIOXIDE 25 mmol/L (22-30); CHLORIDE 105 mmol/L (98-107); GLUCOSE 85 mg/dL (75-110); POTASSIUM 4.8 mmol/L (3.6-5.0); SODIUM 142.2 mmol/L (137-145); TOTAL PROTEIN 8.9 g/dL (6.3-8.2)
[2018-06-04 20:50] LABS: ABSOLUTE LYMPHOCYTES# (MANUAL) 3.2 10^3/uL (0.5-4.7); ABSOLUTE MONOCYTES # (MANUAL) 0.6 10^3/uL (0.1-1.4); ABSOLUTE NEUTROPHILS# (MANUAL) 6.3 10^3/uL (1.7-8.2); BASOPHILS % (MANUAL) 0 % (0-2); EOSINOPHILS % (MANUAL) 0 % (0-6); LYMPHOCYTES % (MANUAL) 32 % (13-45); MONOCYTES % (MANUAL) 6 % (3-13); NUCLEATED RED BLOOD CELLS 20 /100 WBC (0); SEGMENTED NEUTROPHILS % (MAN) 62 % (42-78); TOTAL CELLS COUNTED 100
[2018-06-04 20:54] LABS: ANISOCYTOSIS 4+; OVALOCYTES 1+; PLATELET COMMENT ADEQUATE; POIKILOCYTOSIS 1+; POLYCHROMASIA 1+; SICKLE RED CELLS 2+; TARGET CELLS 1+
[2018-06-04 21:07] LABS: APPEARANCE,URINE CLEAR; BILIRUBIN,URINE NEGATIVE (NEGATIVE); GLUCOSE, URINE NEGATIVE (NEGATIVE); KETONES,URINE NEGATIVE (NEGATIVE); LEUKOCYTE ESTERASE,URINE NEGATIVE (NEGATIVE); NITRITE,URINE NEGATIVE (NEGATIVE); PROTEIN,URINE 100 mg/dL (NEGATIVE); URINE SPECIFIC GRAVITY 1.014
[2018-06-04 21:09] LABS: COLOR,URINE YELLOW
[2018-06-04] MEDS ORDERED: NORMAL SALINE 1000 ML 1,000 ML IV ONE (21:26)
[2018-06-05 00:13] VITALS: BP 138/95
== END 2018-06-05 00:13 | disposition home or self-care (01) ==
LOC: ER 18:24
DX: D57.00 Hb-SS disease with crisis, unspecified (principal); M25.561 Pain in right knee; M54.5 Low back pain; J45.909 Unspecified asthma, uncomplicated; R00.0 Tachycardia, unspecified; Z91.018 Allergy to other foods; Z88.8 Allergy status to other drugs, medicaments and biological substances
CPT/HCPCS: 96376; 99284; 96361; 96374; 96375; 36415; 85025; 85045; 80053; 81001; J3490; J1170; J2405

== ENCOUNTER 2018-06-06 22:19 | Emergency (ER) | payer MEDICAID ==
[2018-06-06] MEDS ORDERED: HYDROMORPHONE HCL INJ/PF 2 MG/ML AMPULE IV ONE ×2 (23:02→23:53)
[2018-06-06] MEDS ORDERED: 1/2 NORMAL SALINE 1,000 ML IV ONE (23:07)
--- NOTE | 2018-06-06 23:11 | ER Document Report ---
ED General Pain - General Mode of Arrival: Ambulatory Information source: Patient TRAVEL OUTSIDE OF THE [place] IN LAST 30 DAYS: No <FILIPE SANDERSON - Last Filed: 06/07/18 04:58> <KARINA VELAZCO - Last Filed: 06/08/18 15:39> - General Chief Complaint: Back Pain Stated Complaint: BACK PAIN Time Seen by Provider: 06/06/18 22:55 Notes: Patient is a 22 year old male with sickle cell disease and a history of acute chest syndrome presents to the emergency department complaining of lower back pain and right knee pain onset today. Patient states he was at a football game when he began to have pain which he attributes to his sickle cell disease. He states the pain has gotten progressively worse and his medications are not providing any relief. Patient denies any fevers. Patient mentions having a scheduled bone marrow transplant on 2017. (FILIPE SANDERSON) - Related Data Allergies/Adverse Reactions: Coconut * [Coconut] Allergy (Mild, Verified 06/04/18 18:27) transpore tape Allergy (Mild, Uncoded 06/04/18 18:27) Hives Past Medical History - General Information source: Patient - Social History Smoking Status: Never Smoker Cigarette use (# per day): No Chew tobacco use (# tins/day): No Smoking Education Provided: No Frequency of alcohol use: None Drug Abuse: None Family History: Reviewed & Not Pertinent, Arthritis, DM, Hypertension, Other - Sickle cell trait both parents and asthma Pulmonary Medical History: Reports: Hx Asthma, Hx Pneumonia Past Surgical History: Reports: Hx Abdominal Surgery - Gallstones removal, Hx Cholecystectomy, Hx Orthopedic Surgery - Fluid drained from right foot, Hx Vascular Surgery - Port placement - Immunizations Immunizations up to date: Yes Hx Diphtheria, Pertussis, Tetanus Vaccination: Yes Hx Pneumococcal Vaccination: 01/15/13 <FILIPE SANDERSON - Last Filed: 06/07/18 04:58> Review of Systems - Review of Systems Constitutional: No symptoms reported EENT: No symptoms reported Cardiovascular: No symptoms reported Respiratory: No symptoms reported Gastrointestinal: No symptoms reported Genitourinary: No symptoms reported Male Genitourinary: No symptoms reported Musculoskeletal: See HPI Skin: No symptoms reported Hematologic/Lymphatic: See HPI Neurological/Psychological: No symptoms reported -: Yes All other systems reviewed and negative <FILIPE SANDERSON - Last Filed: 06/07/18 04:58> Physical Exam <FILIPE SANDERSON - Last Filed: 06/07/18 04:58> <KARINA VELAZCO Juanis - Last Filed: 06/08/18 15:39> - Vital signs Vitals: Temp Pulse Resp BP Pulse Ox 98.5 F 113 H 16 142/85 H 92 06/06/18 22:45 06/06/18 22:45 06/06/18 22:45 06/06/18 22:45 06/06/18 22:45 - Notes Notes: GENERAL: Alert, interacts well. No acute distress. HEAD: Normocephalic, atraumatic. EYES: Pupils equal, round, and reactive to light. Extraocular movements intact. ENT: Oral mucosa moist, tongue midline. NECK: Full range of motion. Supple. Trachea midline. LUNGS: Clear to auscultation bilaterally, no wheezes, rales, or rhonchi. No respiratory distress. HEART: Mild tachycardia. No murmurs, gallops, or rubs. EXTREMITIES: Moves all 4 extremities spontaneously. FROM of right knee, no swelling noted. No edema, radial and dorsalis pedis pulses 2/4 bilaterally. No cyanosis. NEUROLOGICAL: Alert and oriented x3. Normal speech. PSYCH: Normal affect, normal mood. SKIN: Warm, dry, normal turgor. No rashes or lesions noted. (KINFILIPE MAHONEY) Course - Laboratory Result Diagrams: 06/06/18 23:40 06/07/18 00:59 <FILIPE SANDERSON - Last Filed: 06/07/18 04:58> - Laboratory Result Diagrams: 06/06/18 23:40 06/07/18 00:59 <KARINA VELAZCO Juanis - Last Filed: 06/08/18 15:39> - Re-evaluation Re-evalutation: 06/06/18 23:23 Overall, patient well-appearing in no acute distress in the emergency department with history of frequent episodes coming to the ED for pain control. Patient is on a recent cough congestion fevers or illnesses. Will screen patient at this time provide IV fluids and pain medication and reassess. 06/07/18 01:57 Patient's labs within normal normal limits are trending within his baseline. He is resting comfortably in the emergency department in no distress. Will be discharged at this time with return precautions provided. (KARINA VELAZCO) - Vital Signs Vital signs: Temp Pulse Resp BP Pulse Ox 98.5 F 113 H 17 132/84 H 93 06/06/18 22:45 06/06/18 22:45 06/07/18 02:02 06/07/18 02:02 06/07/18 00:00 - Laboratory Laboratory results interpreted by me: 06/06/18 06/07/18 23:40 00:59 RBC 2.81 L Hgb 9.3 L Hct 26.3 L RDW 28.1 H Retic Count (auto) 14.56 H Absolute Retic 0.409 H Carbon Dioxide 20 L Total Bilirubin 4.0 H Direct Bilirubin 1.1 H AST 72 H ALT 18 L Alkaline Phosphatase 127 H Discharge <FILIPE SANDERSON - Last Filed: 06/07/18 04:58> <KARINA VELAZCO - Last Filed: 06/08/18 15:39> - Discharge Clinical Impression: Sickle-cell disease with pain Condition: Good Disposition: HOME, SELF-CARE Instructions: Sickle Cell Crisis ([facility]) Referrals: ANDREW WILLIS MD [Primary Care Provider] - Follow up as needed Scribe Attestation: 06/08/18 15:39 I personally performed the services described in the documentation, reviewed and edited the documentation which was dictated to the scribe in my presence, and it accurately records my words and actions. (KARINA VELAZCO) Scribe Documentation - Scribe Written by Bozena:: Bozena Sanz, 06/06/2018 23:14 acting as scribe for :: Butch <FILIPE SANDERSON - Last Filed: 06/07/18 04:58>
--- NOTE | 2018-06-06 23:33 | RADIOLOGY REPORT (SQ) ---
EXAM DESCRIPTION: XR CHEST 1 VIEW COMPLETED DATE/TME: 06/06/2018 23:02 EXAM DESCRIPTION: Single view of the chest CLINICAL HISTORY: back pain, hx of sickle cell COMPARISON: 05/09/2018 FINDINGS: Single frontal view of the chest. The cardiomediastinal silhouette has normal size and contour. No consolidation, pneumothorax, or pleural effusion. No displaced rib fractures identified. Upper abdominal soft tissues are unremarkable. IMPRESSION: 1. No acute pulmonary process identified.
[2018-06-06 23:52] LABS: ABSOLUTE RETICS # 0.409 10^6/uL (0.028-0.122); HEMATOCRIT 26.3 % (37.9-51.0); HEMOGLOBIN 9.3 g/dL (13.5-17.0); MEAN CORPUSCULAR HGB CONC 35.3 g/dL (32.0-36.0); MEAN CORPUSCULAR VOLUME 94 fl (80-97); PLATELET COUNT 292 10^3/uL (150-450); RED BLOOD COUNT 2.81 10^6/uL (4.35-5.55); RED CELL DISTRIBUTION WIDTH 28.1 % (11.5-14.0); RETICULOCYTE COUNT (AUTO) 14.56 % (0.66-2.85)
[2018-06-07 00:10] LABS: ABSOLUTE LYMPHOCYTES# (MANUAL) 3.6 10^3/uL (0.5-4.7); ABSOLUTE MONOCYTES # (MANUAL) 1.3 10^3/uL (0.1-1.4); ABSOLUTE NEUTROPHILS# (MANUAL) 6.1 10^3/uL (1.7-8.2); BASOPHILS % (MANUAL) 0 % (0-2); EOSINOPHILS % (MANUAL) 1 % (0-6); LYMPHOCYTES % (MANUAL) 31 % (13-45); MONOCYTES % (MANUAL) 12 % (3-13); NUCLEATED RED BLOOD CELLS 52 /100 WBC (0); SEGMENTED NEUTROPHILS % (MAN) 55 % (42-78); TOTAL CELLS COUNTED 100
[2018-06-07 00:13] LABS: ANISOCYTOSIS 3+; OVALOCYTES 1+; PLATELET COMMENT ADEQUATE; POIKILOCYTOSIS 3+; POLYCHROMASIA 2+; SICKLE RED CELLS 3+; TARGET CELLS 1+; TOXIC VACUOLATION PRESENT
[2018-06-07 00:14] LABS: WHITE BLOOD COUNT 10.2 10^3/uL (4.0-10.5)
[2018-06-07] MEDS ORDERED: DIPHENHYDRAMINE HCL 50 MG/ML VIAL IV ONE ×2 (00:36→01:59)
[2018-06-07] MEDS ORDERED: HYDROMORPHONE HCL INJ/PF 2 MG/ML AMPULE IV ONE (00:55)
[2018-06-07 01:24] LABS: ALANINE AMINOTRANSFERASE 18 U/L (21-72); ALBUMIN 4.5 g/dL (3.5-5.0); ALKALINE PHOSPHATASE 127 U/L (38-126); ANION GAP 13 (5-19); ASPARTATE AMINO TRANSFERASE 72 U/L (17-59); BILIRUBIN,DIRECT 1.1 mg/dL (0.0-0.4); BLOOD UREA NITROGEN 9 mg/dL (7-20); CALCIUM 9.4 mg/dL (8.4-10.2); CARBON DIOXIDE 20 mmol/L (22-30); CHLORIDE 107 mmol/L (98-107); GLUCOSE 92 mg/dL (75-110); POTASSIUM 4.2 mmol/L (3.6-5.0); SODIUM 140.2 mmol/L (137-145)
[2018-06-07 02:06] VITALS: BP 132/84
== END 2018-06-07 02:44 | disposition home or self-care (01) ==
LOC: ER 22:19
DX: D57.1 Sickle-cell disease without crisis (principal); M54.5 Low back pain; M25.561 Pain in right knee; J45.909 Unspecified asthma, uncomplicated; R00.0 Tachycardia, unspecified; Z91.018 Allergy to other foods; Z88.8 Allergy status to other drugs, medicaments and biological substances
CPT/HCPCS: 96376; 99284; 96361; 96374; 96375; 36415; 85025; 85045; 80053; 71045; J1200; J1170 ×2

== ENCOUNTER 2018-06-08 17:47 | Inpatient (IN) | payer MEDICAID ==
[2018-06-08] MEDS ORDERED: NORMAL SALINE 1000 ML 1,000 ML IV ONE (18:49)
[2018-06-08] MEDS ORDERED: HYDROMORPHONE HCL INJ/PF 2 MG/ML AMPULE IV ONE (18:49)
--- NOTE | 2018-06-08 18:50 | ER Document Report ---
ED Medical Screen (RME) - General Chief Complaint: Knee Pain Stated Complaint: KNEE PAIN Time Seen by Provider: 06/08/18 18:48 Mode of Arrival: Ambulatory Information source: Patient, [facility] Records Notes: 22-year-old male with sickle cell disease presents with complaint of right knee pain. Patient states this is typical of his sickle cell pain flares. He denies any fever, chills, cough, chest pain. I have greeted and performed a rapid initial assessment of this patient. A comprehensive ED assessment and evaluation of the patient, analysis of test results and completion of medical decision making process we will be contacted by additional ED providers. PHYSICAL EXAMINATION: Vital signs reviewed GENERAL: Well-appearing, well-nourished and in no acute distress. LUNGS: No respiratory distress Musculoskeletal: Normal range of motion NEUROLOGICAL: Normal speech, normal gait. PSYCH: Normal mood, normal affect. SKIN: Warm, Dry, normal turgor, no rashes or lesions noted. TRAVEL OUTSIDE OF THE [place] IN LAST 30 DAYS: No - Related Data Allergies/Adverse Reactions: Coconut * [Coconut] Allergy (Mild, Verified 06/04/18 18:27) transpore tape Allergy (Mild, Uncoded 06/04/18 18:27) Hives Past Medical History - Social History Family history: None Pulmonary Medical History: Reports: Hx Asthma, Hx Pneumonia Renal/ Medical History: Denies: Hx Peritoneal Dialysis Psychiatric Medical History: Denies: Hx Depression Past Surgical History: Reports: Hx Abdominal Surgery - Gallstones removal, Hx Cholecystectomy, Hx Orthopedic Surgery - Fluid drained from right foot, Hx Vascular Surgery - Port placement - Immunizations Immunizations up to date: Yes Hx Diphtheria, Pertussis, Tetanus Vaccination: Yes History of Influenza Vaccine for 06/2017 - 10/2017 Season: Yes Influenza Administration Date for 06/2017 - 10/2017 Season: 06/02/17 Physical Exam - Vital signs Vitals: Temp Pulse Resp BP Pulse Ox 99.3 F 120 H 28 H 141/75 H 94 06/08/18 18:01 06/08/18 18:01 06/08/18 18:01 06/08/18 18:01 06/08/18 18:01 Course - Vital Signs Vital signs: Temp Pulse Resp BP Pulse Ox 99.3 F 120 H 28 H 141/75 H 94 06/08/18 18:01 06/08/18 18:01 06/08/18 18:01 06/08/18 18:01 06/08/18 18:01 Doctor's Discharge - Discharge Referrals: ANDREW WILLIS MD [Primary Care Provider] - Follow up as needed
[2018-06-08 19:34] LABS: ABSOLUTE RETICS # 0.507 10^6/uL (0.028-0.122); HEMATOCRIT 25.9 % (37.9-51.0); HEMOGLOBIN 9.1 g/dL (13.5-17.0); MEAN CORPUSCULAR HEMOGLOBIN 33.4 pg (27.0-33.4); MEAN CORPUSCULAR VOLUME 96 fl (80-97); PLATELET COUNT 330 10^3/uL (150-450); RED BLOOD COUNT 2.71 10^6/uL (4.35-5.55); RED CELL DISTRIBUTION WIDTH 32.3 % (11.5-14.0); RETICULOCYTE COUNT (AUTO) 18.69 % (0.66-2.85)
[2018-06-08 19:54] LABS: ANION GAP 12 (5-19); BLOOD UREA NITROGEN 10 mg/dL (7-20); CALCIUM 9.5 mg/dL (8.4-10.2); CARBON DIOXIDE 25 mmol/L (22-30); CHLORIDE 107 mmol/L (98-107); GLUCOSE 81 mg/dL (75-110); POTASSIUM 4.9 mmol/L (3.6-5.0); SODIUM 144.3 mmol/L (137-145)
[2018-06-08] MEDS ORDERED: DIPHENHYDRAMINE HCL 25 MG CAPSULE PO ONE (20:32)
[2018-06-08] MEDS: HYDROMORPHONE HCL INJ/PF 2 MG/ML AMPULE IV PRN ×4 (20:35→23:36)
--- NOTE | 2018-06-08 20:39 | ER Document Report ---
ED General - General Chief Complaint: Knee Pain Stated Complaint: KNEE PAIN Time Seen by Provider: 06/08/18 18:48 Mode of Arrival: Ambulatory Notes: Patient is a 22-year-old male with a past medical history of sickle cell anemia who presents with an acute pain crisis. He describes it as a dull, throbbing, severe pain the. This started several hours ago and has been worsening since that time. Nothing improves the pain, movement of the knee worsens the pain. He states this feels very similar to previous exacerbations of his sickle cell. He has not seen his clinical admissions manager regarding today's concerns. He denies any chest pain, shortness of breath, fever or constitutional symptoms. TRAVEL OUTSIDE OF THE [place] IN LAST 30 DAYS: No - Related Data Allergies/Adverse Reactions: Coconut * [Coconut] Allergy (Mild, Verified 06/04/18 18:27) transpore tape Allergy (Mild, Uncoded 06/04/18 18:27) Hives Past Medical History - General Information source: Patient, [facility] Records - Social History Smoking Status: Never Smoker Frequency of alcohol use: None Drug Abuse: None Lives with: Spouse/Significant other Family History: Reviewed & Not Pertinent, Arthritis, DM, Hypertension, Other - Sickle cell trait both parents and asthma Patient has suicidal ideation: No Patient has homicidal ideation: No Pulmonary Medical History: Reports: Hx Asthma, Hx Pneumonia Renal/ Medical History: Denies: Hx Peritoneal Dialysis Psychiatric Medical History: Denies: Hx Depression Past Surgical History: Reports: Hx Abdominal Surgery - Gallstones removal, Hx Cholecystectomy, Hx Orthopedic Surgery - Fluid drained from right foot, Hx Vascular Surgery - Port placement - Immunizations Immunizations up to date: Yes Hx Diphtheria, Pertussis, Tetanus Vaccination: Yes Hx Pneumococcal Vaccination: 01/15/13 Review of Systems - Review of Systems Notes: Constitutional: Negative for fever. HENT: Negative for sore throat. Eyes: Negative for visual changes. Cardiovascular: Negative for chest pain. Respiratory: Negative for shortness of breath. Gastrointestinal: Negative for abdominal pain, vomiting or diarrhea. Genitourinary: Negative for dysuria. Musculoskeletal: Positive for right knee pain Skin: Negative for rash. Neurological: Negative for headaches, weakness or numbness. 10 point ROS negative except as marked above and in HPI. Physical Exam - Vital signs Vitals: Temp Pulse Resp BP Pulse Ox 99.3 F 120 H 28 H 141/75 H 94 06/08/18 18:01 06/08/18 18:01 06/08/18 18:01 06/08/18 18:01 06/08/18 18:01 Interpretation: Tachycardic Notes: PHYSICAL EXAMINATION: GENERAL: Well-appearing, well-nourished and in no acute distress. HEAD: Atraumatic, normocephalic. EYES: Pupils equal round and reactive to light, extraocular movements intact, sclera anicteric, conjunctiva are normal. ENT: nares patent, oropharynx clear without exudates. Moist mucous membranes. NECK: Normal range of motion, supple without lymphadenopathy LUNGS: Breath sounds clear to auscultation bilaterally and equal. No wheezes rales or rhonchi. HEART: Regular rate and rhythm without murmurs ABDOMEN: Soft, nontender, normoactive bowel sounds. No guarding, no rebound. No masses appreciated. EXTREMITIES: Normal range of motion, no pitting or edema. No cyanosis. NEUROLOGICAL: No focal neurological deficits. Moves all extremities spontaneously and on command. PSYCH: Normal mood, normal affect. SKIN: Warm, Dry, normal turgor, no rashes or lesions noted. Course - Re-evaluation Re-evalutation: 06/08/18 20:39 Presentation is most consistent with an uncomplicated sickle cell pain crisis. Patient has no evidence of an aplastic crisis on labs. History and vitals are not consistent with acute chest syndrome. Vitals have remained within normal limits here in the emergency department. Patient's pain has been able to be controlled using IV analgesia. The patient is agreeable to discharge home at this time. I recommended that they follow closely with their primary clinical admissions manager. Return precautions have been reviewed and discussed and patient has verbalized indications to return to the emergency department. - Vital Signs Vital signs: Temp Pulse Resp BP Pulse Ox 99.3 F 120 H 28 H 141/75 H 94 06/08/18 18:01 06/08/18 18:01 06/08/18 18:01 06/08/18 18:01 06/08/18 18:01 - Laboratory Result Diagrams: 06/08/18 19:15 06/08/18 19:15 Laboratory results interpreted by me: 06/08/18 19:15 RBC 2.71 L Hgb 9.1 L Hct 25.9 L RDW 32.3 H Band Neutrophils % 1 L Retic Count (auto) 18.69 H Absolute Retic 0.507 H Discharge - Discharge Clinical Impression: Sickle cell crisis Right knee pain Qualifiers: Chronicity: acute Qualified Code(s): M25.561 - Pain in right knee Condition: Good Disposition: HOME, SELF-CARE Additional Instructions: You were seen today for sickle cell pain crisis. Please follow-up with your clinical admissions manager. Returning to the ED if you have worsening pain, fever greater than 100.4, shortness of breath, persistent vomiting, or any other symptoms that are concerning to you. Referrals: ANDREW WILLIS MD [Primary Care Provider] - Follow up as needed
[2018-06-08 20:47] LABS: ABSOLUTE LYMPHOCYTES# (MANUAL) 3.1 10^3/uL (0.5-4.7); ABSOLUTE MONOCYTES # (MANUAL) 1.1 10^3/uL (0.1-1.4); ABSOLUTE NEUTROPHILS# (MANUAL) 4.9 10^3/uL (1.7-8.2); BAND NEUTROPHILS % (MANUAL) 1 % (3-5); BASOPHILS % (MANUAL) 0 % (0-2); EOSINOPHILS % (MANUAL) 1 % (0-6); LYMPHOCYTES % (MANUAL) 34 % (13-45); MONOCYTES % (MANUAL) 12 % (3-13); NUCLEATED RED BLOOD CELLS 46 /100 WBC (0); SEGMENTED NEUTROPHILS % (MAN) 52 % (42-78); SICKLE RED CELLS 4+; TOTAL CELLS COUNTED 100
[2018-06-08 20:48] LABS: ANISOCYTOSIS 4+; POLYCHROMASIA 2+
[2018-06-08 20:51] LABS: OVALOCYTES 2+; PLATELET COMMENT ADEQUATE; POIKILOCYTOSIS 3+
[2018-06-08 20:57] LABS: WHITE BLOOD COUNT 9.7 10^3/uL (4.0-10.5)
[2018-06-08] MEDS ORDERED: IPRATROPIUM/ALBUTEROL 0.5-2.5 MG/3 ML AMPUL NEB ONE (22:48)
--- NOTE | 2018-06-08 22:58 | RADIOLOGY REPORT (SQ) ---
Portable chest HISTORY: Shortness of breath. FINDINGS: The heart is not enlarged. No consolidation or pleural effusion. No pulmonary edema or pneumothorax. IMPRESSION: No acute disease.
[2018-06-09] MEDS ORDERED: LEVOFLOXACIN 750 MG/D5W RTU 750 MG/150 ML RTUPB IV SCH (01:00)
[2018-06-09 01:04] LABS: INTERNATIONAL RATION (INR) 1.14; PROTHROMBIN TIME 15.1 SEC (11.4-15.4)
[2018-06-09 01:05] LABS: PARTIAL THROMBOPLASTIN TIME 28.2 SEC (23.5-35.8)
[2018-06-09] MEDS: HYDROMORPHONE HCL INJ/PF 2 MG/ML AMPULE IV PRN ×7 (01:19→20:46)
[2018-06-09 01:20] LABS: LIPASE 61.8 U/L (23-300)
[2018-06-09 01:33] LABS: CREATINE KINASE MB 0.25 ng/mL (<4.55); TROPONIN I 0.02 ng/mL
[2018-06-09 01:36] LABS: FREE T4 (FREE THYROXINE) 0.91 ng/dL (0.78-2.19)
[2018-06-09 01:50] LABS: THYROID STIMULATING HORMONE 6.99 uIU/mL (0.47-4.68)
[2018-06-09] MEDS: NORMAL SALINE 1000 ML 1,000 ML IV PRN ×2 (02:58→16:14)
[2018-06-09 07:12] LABS: CREATINE KINASE MB 0.36 ng/mL (<4.55); TROPONIN I 0.017 ng/mL
[2018-06-09] MEDS: ENOXAPARIN SODIUM INJ 40 MG/0.4 ML DISP.SYRIN SUBCUT SCH (11:51)
[2018-06-09 13:45] LABS: CREATINE KINASE MB 0.5 ng/mL (<4.55); TROPONIN I 0.017 ng/mL
[2018-06-09 13:49] LABS: APPEARANCE,URINE CLEAR; BILIRUBIN,URINE NEGATIVE (NEGATIVE); COLOR,URINE AMBER; GLUCOSE, URINE NEGATIVE (NEGATIVE); KETONES,URINE NEGATIVE (NEGATIVE); LEUKOCYTE ESTERASE,URINE NEGATIVE (NEGATIVE); NITRITE,URINE NEGATIVE (NEGATIVE); PROTEIN,URINE 30 mg/dL (NEGATIVE); UROBILINOGEN,URINE NEGATIVE mg/dL (<2.0)
[2018-06-09 13:54] LABS: URINE SPECIFIC GRAVITY 1.014
[2018-06-09 14:01] LABS: URINE AMPHETAMINES SCREEN NEGATIVE; URINE BARBITURATES SCREEN NEGATIVE; URINE BENZODIAZEPINES SCREEN NEGATIVE; URINE COCAINE SCREEN NEGATIVE; URINE MARIJUANA (THC) SCREEN NEGATIVE; URINE METHADONE SCREEN NEGATIVE; URINE PHENCYCLIDINE SCREEN NEGATIVE
--- NOTE | 2018-06-09 20:16 | PDOC H&P ---
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 he presented to the ED with new onset chest pain that started several hours before presenting to the ED. He described his pain as severe throbbing and achy pain. Patient reported that his home pain management regimen were not effectively controlling his pain. He localized pain mainly to his chest region without radiation into his shoulder. There is associated difficulty with breathing but patient claimed it is usual due to his sickle cell related pain crisis. His initial evaluation in the ED was remarkable for tachycardia, tachypnea and intermittent episodes of hypoxia. Due to persistence of his pain and associated symptoms he was advised hospitalization for further evaluation and management. His morbidities include Asthma and current home infusion therapy for bacteremia. Past Medical History Pulmonary Medical History: Reports: Asthma, Pneumonia Psychiatric Medical History: Denies: Depression Hematology: Reports: Anemia, Sickle Cell Disease, Bleeding Tendencies Past Surgical History Past Surgical History: Reports: Cholecystectomy, Orthopedic Surgery - Fluid drained from right foot, Vascular Surgery - Port placement Social History Lives with: Spouse/Significant other Smoking Status: Never Smoker Frequency of Alcohol Use: None Hx Recreational Drug Use: No Drugs: None Hx Prescription Drug Abuse: No - Advance Directive Resuscitation Status: Full Code Family History Family History: Reviewed & Not Pertinent, Arthritis, DM, Hypertension, Other - Sickle cell trait both parents and asthma Parental Family History Reviewed: Yes Children Family History Reviewed: Yes Sibling(s) Family History Reviewed.: Yes Medication/Allergy Home Medications: Fentanyl [Duragesic 75 Mcg/Hr Transdermal Patch] 1 each TD Q3D 06/09/18 Folic Acid [Folvite 1 mg Tablet] 1 mg PO DAILY 06/09/18 Hydroxyurea [Hydrea 500 Mg Capsule] 1,000 mg PO SUTUTHSA@1000 06/09/18 Hydroxyurea [Hydrea 500 Mg Capsule] 1,500 mg PO MOWEFR@1000 06/09/18 Allergies/Adverse Reactions: Coconut * [Coconut] Allergy (Mild, Verified 06/04/18 18:27) transpore tape Allergy (Mild, Uncoded 06/04/18 18:27) Hives Review of Systems Constitutional: ABSENT: chills, fever(s), headache(s), weight gain, weight loss Eyes: ABSENT: visual disturbances Ears: ABSENT: hearing changes Nose, Mouth, and Throat: ABSENT: as per HPI, headache(s), mouth pain, sore throat, vertigo, other Cardiovascular: PRESENT: chest pain, dyspnea on exertion - related to his sickle cell pain crisis Respiratory: ABSENT: cough, hemoptysis Gastrointestinal: ABSENT: abdominal pain, constipation, diarrhea, hematemesis, hematochezia, nausea, vomiting Musculoskeletal: PRESENT: back pain - mid back region Integumentary: ABSENT: rash, wounds Neurological: ABSENT: abnormal gait, abnormal speech, confusion, dizziness, focal weakness, syncope Psychiatric: ABSENT: anxiety, depression, homidical ideation, suicidal ideation Endocrine: ABSENT: cold intolerance, heat intolerance, polydipsia, polyuria Hematologic/Lymphatic: ABSENT: easy bleeding, easy bruising, lymphadenopathy Allergic/Immunologic: ABSENT: seasonal rhinorrhea Physical Exam Vital Signs: Temp Pulse Resp BP Pulse Ox 98.4 F 92 16 113/66 97 06/09/18 15:12 06/09/18 15:12 06/09/18 15:12 06/09/18 15:12 06/09/18 19:54 Intake & Output 06/08/18 06/09/18 06/10/18 06:59 06:59 06:59 Intake Total 470 1900 Output Total 450 2400 Balance 20 -500 Weight 58 kg General appearance: PRESENT: severe distress - from sickle cell pain crisis Head exam: PRESENT: atraumatic, normocephalic Eye exam: PRESENT: conjunctiva pink, EOMI, PERRLA. ABSENT: scleral icterus Ear exam: PRESENT: normal external ear exam Mouth exam: PRESENT: moist Respiratory exam: PRESENT: clear to auscultation ethan Cardiovascular exam: PRESENT: +S1, +S2, tachycardia. ABSENT: diastolic murmur, gallop, systolic murmur Pulses: PRESENT: +2 pedal pulses bilateral Vascular exam: PRESENT: normal capillary refill. ABSENT: pallor GI/Abdominal exam: PRESENT: normal bowel sounds, soft. ABSENT: distended, guarding, mass, organolmegaly, rebound, tenderness Rectal exam: PRESENT: deferred Extremities exam: ABSENT: pedal edema Musculoskeletal exam: PRESENT: normal inspection, tenderness - to palpation of multiple ribs and sternal region, mid back region and left knee joint region Neurological exam: PRESENT: alert, awake, oriented to person, oriented to place , oriented to time, oriented to situation, CN II-XII grossly intact. ABSENT: motor sensory deficit Psychiatric exam: PRESENT: appropriate affect, normal mood. ABSENT: homicidal ideation, suicidal ideation Skin exam: PRESENT: dry, intact, warm. ABSENT: cyanosis, rash Results Laboratory Results: 06/09/18 06/09/18 06/09/18 00:46 00:46 00:46 Magnesium 2.0 Ammonia 14.3 Amylase 50 Lipase 61.8 TSH 6.99 H Free T4 0.91 Urine Color Urine Appearance Urine pH Ur Specific [place]thon Urine Protein Urine Glucose (UA) Urine Ketones Urine Blood Urine Nitrite Ur Leukocyte Esterase Urine WBC (Auto) Urine RBC (Auto) 06/09/18 08:01 Magnesium Ammonia Amylase Lipase TSH Free T4 Urine Color [place] Urine Appearance CLEAR Urine pH 6.0 Ur Specific Anthon 1.014 Urine Protein 30 H Urine Glucose (UA) NEGATIVE Urine Ketones NEGATIVE Urine Blood SMALL H Urine Nitrite NEGATIVE Ur Leukocyte Esterase NEGATIVE Urine WBC (Auto) 1 Urine RBC (Auto) 0 06/09/18 06/09/18 06/09/18 00:46 00:46 06:26 Creatine Kinase 70 79 CK-MB (CK-2) 0.25 Troponin I 0.020 06/09/18 06/09/18 06/09/18 06:26 13:00 13:00 Creatine Kinase 73 CK-MB (CK-2) 0.36 0.50 Troponin I 0.017 0.017 Impressions: Chest X-Ray 06/08/18 22:33 IMPRESSION: No acute disease. Assessment & Plan - Diagnosis (1) Sickle cell pain crisis Is this a current diagnosis for this admission?: Yes Plan: See admitting attending physician orders. (2) Homozygous sickle cell (SS) disease Is this a current diagnosis for this admission?: Yes Plan: See admitting attending physician orders. (3) Bacteremia of undetermined etiology Is this a current diagnosis for this admission?: Yes Plan: See admitting attending physician orders. (4) Asthma Qualifiers: Asthma severity: mild Asthma complication type: unspecified Is this a current diagnosis for this admission?: Yes Plan: See admitting attending physician orders. - Time Time Spent: 50 to 70 Minutes Medications reviewed and adjusted accordingly: Yes Anticipated discharge: Home Within: Other - Inpatient Certification Based on my medical assessment, after consideration of the patient's comorbidities, presenting symptoms, or acuity I expect that the services needed warrant INPATIENT care.: Yes I certify that my determination is in accordance with my understanding of Medicare's requirements for reasonable and necessary INPATIENT services [42 CFR 412.3e].: Yes Medical Necessity: Need Close Monitoring Due to Risk of Patient Decompensation, Need For IV Fluids, Need For Continuous Telemetry Monitoring, Need for Pain Control, Need for IV Antibiotics, Risk of Complication if Not Cared For in Hospital Post Hospital Care: D/C Dough Catcher Documentation - Plan Summary Plan Summary: See admitting attending physician orders.
[2018-06-09] MEDS: FENTANYL 75 MCG/HR PATCH.TD72 TD SCH (22:41)
[2018-06-10] MEDS: HYDROMORPHONE HCL INJ/PF 2 MG/ML AMPULE IV PRN ×6 (00:55→20:38)
[2018-06-10] MEDS: CEFAZOLIN 1 GM/D5W RTU 1 GM/50 ML RTUPB IV SCH ×4 (00:56→17:29)
[2018-06-10] MEDS: NORMAL SALINE 1000 ML 1,000 ML IV PRN ×2 (02:20→20:53)
[2018-06-10 04:43] LABS: ABSOLUTE BASOPHILS # (AUTO) 0.1 10^3/uL (0.0-0.2); ABSOLUTE EOSINOPHILS # (AUTO) 0.4 10^3/uL (0.0-0.6); ABSOLUTE LYMPHOCYTES (AUTO) 2.3 10^3/uL (0.5-4.7); ABSOLUTE NEUT (AUTO) 4.9 10^3/uL (1.7-8.2); BASOPHILS % (AUTO) 0.7 % (0-2); EOSINOPHILS % (AUTO) 4.5 % (0-6); HEMATOCRIT 22.6 % (37.9-51.0); HEMOGLOBIN 8.3 g/dL (13.5-17.0); LYMPHOCYTES % (AUTO) 26.8 % (13-45); MEAN CORPUSCULAR HEMOGLOBIN 34.4 pg (27.0-33.4); MEAN CORPUSCULAR HGB CONC 36.5 g/dL (32.0-36.0); MEAN CORPUSCULAR VOLUME 94 fl (80-97); MONOCYTES % (AUTO) 11.3 % (3-13); PLATELET COUNT 257 10^3/uL (150-450); RED CELL DISTRIBUTION WIDTH 29.9 % (11.5-14.0); SEGMENTED NEUTROPHILS % (AUTO) 56.7 % (42-78); TOTAL CELLS COUNTED % (AUTO) 100 %; WHITE BLOOD COUNT 8.7 10^3/uL (4.0-10.5)
[2018-06-10 04:58] LABS: ALANINE AMINOTRANSFERASE 16 U/L (21-72); ALBUMIN 3.8 g/dL (3.5-5.0); ALKALINE PHOSPHATASE 100 U/L (38-126); ANION GAP 7 (5-19); ASPARTATE AMINO TRANSFERASE 67 U/L (17-59); BILIRUBIN,DIRECT 0.8 mg/dL (0.0-0.4); BILIRUBIN,TOTAL 2.3 mg/dL (0.2-1.3); BLOOD UREA NITROGEN 6 mg/dL (7-20); CALCIUM 8.9 mg/dL (8.4-10.2); CARBON DIOXIDE 27 mmol/L (22-30); CHLORIDE 105 mmol/L (98-107); GLUCOSE 98 mg/dL (75-110); PHOSPHORUS 4.8 mg/dL (2.5-4.5); POTASSIUM 4.2 mmol/L (3.6-5.0); SODIUM 138.7 mmol/L (137-145); TOTAL PROTEIN 6.8 g/dL (6.3-8.2); TRIGLYCERIDES 175 mg/dL (<150)
[2018-06-10 05:09] LABS: DIRECT LDL 53 mg/dL (<100)
[2018-06-10 05:12] LABS: ANISOCYTOSIS 3+; PLATELET COMMENT ADEQUATE; POIKILOCYTOSIS 1+; POLYCHROMASIA 1+; SICKLE RED CELLS 1+
[2018-06-10] MEDS: HYDROXYUREA 500 MG CAPSULE PO SCH (09:35)
[2018-06-10] MEDS: FOLIC ACID 1 MG TABLET PO SCH (09:36)
[2018-06-10] MEDS: ENOXAPARIN SODIUM INJ 40 MG/0.4 ML DISP.SYRIN SUBCUT SCH (09:36)
--- NOTE | 2018-06-10 18:37 | PDOC PROGRESS REPORT ---
Subjective Progress Note for:: 06/10/18 Subjective:: Patient reported resolution of his chest pain. There is persistent of back pain. Pain is fairly controlled on current medication management. No fever, chills, nausea, abdominal pain, or difficulty with breathing. Reason For Visit: ACUTE CHEST SYNDROME, SICKLE CELL DISEASE Physical Exam Vital Signs: Temp Pulse Resp BP Pulse Ox 98.5 F 93 14 120/62 98 06/10/18 16:00 06/10/18 16:00 06/10/18 16:00 06/10/18 16:00 06/10/18 16:00 Intake & Output 06/09/18 06/10/18 06/11/18 06:59 06:59 06:59 Intake Total 470 2950 572 Output Total 450 2400 1450 Balance 20 550 -878 Weight 58 kg 59 kg General appearance: PRESENT: no acute distress, well-developed, well-nourished Head exam: PRESENT: atraumatic, normocephalic Eye exam: PRESENT: conjunctiva pink, EOMI, PERRLA. ABSENT: scleral icterus Ear exam: PRESENT: normal external ear exam Mouth exam: PRESENT: moist Respiratory exam: PRESENT: clear to auscultation ethan Cardiovascular exam: PRESENT: RRR. ABSENT: diastolic murmur, rubs, systolic murmur Vascular exam: PRESENT: normal capillary refill. ABSENT: pallor GI/Abdominal exam: PRESENT: normal bowel sounds, soft. ABSENT: distended, guarding, mass, organolmegaly, rebound, tenderness Extremities exam: ABSENT: pedal edema Musculoskeletal exam: PRESENT: normal inspection, tenderness - mid back region Neurological exam: PRESENT: alert, awake, oriented to person, oriented to place , oriented to time, oriented to situation, CN II-XII grossly intact. ABSENT: motor sensory deficit Psychiatric exam: PRESENT: appropriate affect, normal mood. ABSENT: homicidal ideation, suicidal ideation Skin exam: PRESENT: dry, intact, warm. ABSENT: cyanosis, rash Results Laboratory Results: 06/10/18 04:12 06/10/18 04:12 06/10/18 06/10/18 04:12 04:12 WBC 8.7 RBC 2.40 L Hgb 8.3 L Hct 22.6 L MCV 94 MCH 34.4 H MCHC 36.5 H RDW 29.9 H Plt Count 257 Seg Neutrophils % 56.7 Lymphocytes % 26.8 Monocytes % 11.3 Eosinophils % 4.5 Basophils % 0.7 Absolute Neutrophils 4.9 Absolute Lymphocytes 2.3 Absolute Monocytes 1.0 Absolute Eosinophils 0.4 Absolute Basophils 0.1 Sodium 138.7 Potassium 4.2 Chloride 105 Carbon Dioxide 27 Anion Gap 7 BUN 6 L Creatinine 0.54 Est GFR ( Amer) > 60 Est GFR (Non-Af Amer) > 60 Glucose 98 Calcium 8.9 Phosphorus 4.8 H Total Bilirubin 2.3 H AST 67 H ALT 16 L Alkaline Phosphatase 100 Total Protein 6.8 Albumin 3.8 Triglycerides 175 H Cholesterol 114.00 LDL Cholesterol Direct 53 VLDL Cholesterol 35.0 H HDL Cholesterol 25 L 06/09/18 06/09/18 06/09/18 00:46 00:46 06:26 Creatine Kinase 70 79 CK-MB (CK-2) 0.25 Troponin I 0.020 06/09/18 06/09/18 06/09/18 06:26 13:00 13:00 Creatine Kinase 73 CK-MB (CK-2) 0.36 0.50 Troponin I 0.017 0.017 Impressions: Chest X-Ray 06/08/18 22:33 IMPRESSION: No acute disease. Assessment & Plan - Diagnosis (1) Sickle cell pain crisis Is this a current diagnosis for this admission?: Yes Plan: Continue current medication management. (2) Homozygous sickle cell (SS) disease Is this a current diagnosis for this admission?: Yes Plan: Continue current medication management. (3) Bacteremia of undetermined etiology Is this a current diagnosis for this admission?: Yes Plan: Continue current medication management. (4) Asthma Qualifiers: Asthma severity: mild Asthma complication type: unspecified Is this a current diagnosis for this admission?: Yes Plan: Continue current medication management. - Time Time Spent with patient: 25-34 minutes Medications reviewed and adjusted accordingly: Yes Anticipated discharge: Home Within: Other - Inpatient Certification Based on my medical assessment, after consideration of the patient's comorbidities, presenting symptoms, or acuity I expect that the services needed warrant INPATIENT care.: Yes I certify that my determination is in accordance with my understanding of Medicare's requirements for reasonable and necessary INPATIENT services [42 CFR 412.3e].: Yes Medical Necessity: Need Close Monitoring Due to Risk of Patient Decompensation, Need For IV Fluids, Need For Continuous Telemetry Monitoring, Need for Pain Control, Need for IV Antibiotics, Risk of Complication if Not Cared For in Hospital Post Hospital Care: D/C Transportation Aid Documentation - Plan Summary Plan Summary: Continue current medication management. Obtain CBC with diff, CMP in am.
[2018-06-11] MEDS: CEFAZOLIN 1 GM/D5W RTU 1 GM/50 ML RTUPB IV SCH ×4 (00:25→18:01)
[2018-06-11] MEDS: HYDROMORPHONE HCL INJ/PF 2 MG/ML AMPULE IV PRN ×5 (01:29→19:59)
[2018-06-11 05:21] LABS: ABSOLUTE EOSINOPHILS # (AUTO) 0.4 10^3/uL (0.0-0.6); ABSOLUTE LYMPHOCYTES (AUTO) 1.6 10^3/uL (0.5-4.7); ABSOLUTE MONOCYTES (AUTO) 0.7 10^3/uL (0.1-1.4); ABSOLUTE NEUT (AUTO) 3.7 10^3/uL (1.7-8.2); BASOPHILS % (AUTO) 0.7 % (0-2); EOSINOPHILS % (AUTO) 5.6 % (0-6); HEMATOCRIT 21.6 % (37.9-51.0); MEAN CORPUSCULAR HEMOGLOBIN 34.9 pg (27.0-33.4); MEAN CORPUSCULAR HGB CONC 36.8 g/dL (32.0-36.0); MEAN CORPUSCULAR VOLUME 95 fl (80-97); MONOCYTES % (AUTO) 10.5 % (3-13); PLATELET COUNT 230 10^3/uL (150-450); RED BLOOD COUNT 2.28 10^6/uL (4.35-5.55); RED CELL DISTRIBUTION WIDTH 28.3 % (11.5-14.0); SEGMENTED NEUTROPHILS % (AUTO) 58.2 % (42-78); TOTAL CELLS COUNTED % (AUTO) 100 %; WHITE BLOOD COUNT 6.5 10^3/uL (4.0-10.5)
[2018-06-11 05:40] LABS: ALANINE AMINOTRANSFERASE 16 U/L (21-72); ALBUMIN 3.6 g/dL (3.5-5.0); ALKALINE PHOSPHATASE 89 U/L (38-126); ANION GAP 7 (5-19); ASPARTATE AMINO TRANSFERASE 60 U/L (17-59); BILIRUBIN,DIRECT 0.4 mg/dL (0.0-0.4); BILIRUBIN,TOTAL 1.7 mg/dL (0.2-1.3); BLOOD UREA NITROGEN 9 mg/dL (7-20); CALCIUM 8.7 mg/dL (8.4-10.2); CARBON DIOXIDE 31 mmol/L (22-30); CHLORIDE 103 mmol/L (98-107); GLUCOSE 98 mg/dL (75-110); POTASSIUM 4.3 mmol/L (3.6-5.0); SODIUM 140.6 mmol/L (137-145); TOTAL PROTEIN 6.8 g/dL (6.3-8.2)
[2018-06-11 05:49] LABS: ANISOCYTOSIS 4+; HYPOCHROMASIA SLIGHT; POIKILOCYTOSIS 2+; POLYCHROMASIA 1+; SICKLE RED CELLS 2+
[2018-06-11 05:50] LABS: HOWELL-JOLLY BODIES PRESENT; PLATELET COMMENT ADEQUATE
[2018-06-11] MEDS: HYDROXYUREA 500 MG CAPSULE PO SCH (09:13)
[2018-06-11] MEDS: FOLIC ACID 1 MG TABLET PO SCH (09:14)
[2018-06-11] MEDS: ENOXAPARIN SODIUM INJ 40 MG/0.4 ML DISP.SYRIN SUBCUT SCH (09:14)
[2018-06-11] MEDS: NORMAL SALINE 1000 ML 1,000 ML IV PRN (10:26)
--- NOTE | 2018-06-11 18:37 | PDOC PROGRESS REPORT ---
Subjective Progress Note for:: 06/11/18 Subjective:: Patient reported some improvement in his back pain and was able to walk on the floor short distance today. No fever, chills, nausea, or abdominal pain. No chest pain or difficulty with breathing. Reason For Visit: ACUTE CHEST SYNDROME, SICKLE CELL DISEASE Physical Exam Vital Signs: Temp Pulse Resp BP Pulse Ox 98.5 F 94 12 132/90 H 97 06/11/18 16:00 06/11/18 16:00 06/11/18 16:00 06/11/18 16:00 06/11/18 16:00 Intake & Output 06/10/18 06/11/18 06/12/18 06:59 06:59 06:59 Intake Total 2950 3338 1316 Output Total 2400 2600 1925 Balance 550 738 -609 Weight 59 kg 59.9 kg Physical Exam: General appearance: PRESENT: no acute distress, well-developed, well-nourished Head exam: PRESENT: atraumatic, normocephalic Eye exam: PRESENT: conjunctiva pink, EOMI, PERRLA. ABSENT: scleral icterus Ear exam: PRESENT: normal external ear exam Mouth exam: PRESENT: moist Respiratory exam: PRESENT: clear to auscultation ethan Cardiovascular exam: PRESENT: RRR. ABSENT: diastolic murmur, rubs, systolic murmur Vascular exam: ABSENT: pallor GI/Abdominal exam: PRESENT: normal bowel sounds, soft. ABSENT: distended, guarding, mass, organomegaly, rebound, tenderness Extremities exam: ABSENT: pedal edema Musculoskeletal exam: PRESENT: normal inspection, tenderness - mid back region Neurological exam: PRESENT: alert, awake, oriented to person, oriented to place , oriented to time, oriented to situation, CN II-XII grossly intact. ABSENT: motor sensory deficit Psychiatric exam: PRESENT: appropriate affect, normal mood. ABSENT: homicidal ideation, suicidal ideation Skin exam: PRESENT: dry, intact, warm. ABSENT: cyanosis, rash Results Laboratory Results: 06/11/18 04:35 06/11/18 04:35 06/11/18 06/11/18 04:35 04:35 WBC 6.5 RBC 2.28 L Hgb 8.0 L Hct 21.6 L MCV 95 MCH 34.9 H MCHC 36.8 H RDW 28.3 H Plt Count 230 Seg Neutrophils % 58.2 Lymphocytes % 25.0 Monocytes % 10.5 Eosinophils % 5.6 Basophils % 0.7 Absolute Neutrophils 3.7 Absolute Lymphocytes 1.6 Absolute Monocytes 0.7 Absolute Eosinophils 0.4 Absolute Basophils 0.0 Sodium 140.6 Potassium 4.3 Chloride 103 Carbon Dioxide 31 H Anion Gap 7 BUN 9 Creatinine 0.55 Est GFR ( Amer) > 60 Est GFR (Non-Af Amer) > 60 Glucose 98 Calcium 8.7 Total Bilirubin 1.7 H AST 60 H ALT 16 L Alkaline Phosphatase 89 Total Protein 6.8 Albumin 3.6 06/09/18 06/09/18 06/09/18 00:46 00:46 06:26 Creatine Kinase 70 79 CK-MB (CK-2) 0.25 Troponin I 0.020 06/09/18 06/09/18 06/09/18 06:26 13:00 13:00 Creatine Kinase 73 CK-MB (CK-2) 0.36 0.50 Troponin I 0.017 0.017 Impressions: Chest X-Ray 06/08/18 22:33 IMPRESSION: No acute disease. Assessment & Plan - Diagnosis (1) Sickle cell pain crisis Is this a current diagnosis for this admission?: Yes (2) Homozygous sickle cell (SS) disease Is this a current diagnosis for this admission?: Yes (3) Bacteremia of undetermined etiology Is this a current diagnosis for this admission?: Yes (4) Asthma Qualifiers: Asthma severity: mild Asthma complication type: unspecified Is this a current diagnosis for this admission?: Yes - Time Time Spent with patient: 25-34 minutes Medications reviewed and adjusted accordingly: Yes Anticipated discharge: Home Within: Other - Inpatient Certification Based on my medical assessment, after consideration of the patient's comorbidities, presenting symptoms, or acuity I expect that the services needed warrant INPATIENT care.: Yes I certify that my determination is in accordance with my understanding of Medicare's requirements for reasonable and necessary INPATIENT services [42 CFR 412.3e].: Yes Medical Necessity: Need Close Monitoring Due to Risk of Patient Decompensation, Need For IV Fluids, Need For Continuous Telemetry Monitoring, Need for Pain Control, Risk of Complication if Not Cared For in Hospital Post Hospital Care: D/C Medical Coordinator Pesticide Use Documentation - Plan Summary Plan Summary: Continue current medication management.
[2018-06-12] MEDS: HYDROMORPHONE HCL INJ/PF 2 MG/ML AMPULE IV PRN ×6 (00:07→22:17)
[2018-06-12] MEDS: CEFAZOLIN 1 GM/D5W RTU 1 GM/50 ML RTUPB IV SCH ×3 (00:08→12:12)
[2018-06-12] MEDS: NORMAL SALINE 1000 ML 1,000 ML IV PRN ×2 (00:15→12:20)
[2018-06-12 04:40] LABS: HEMOGLOBIN 8.1 g/dL (13.5-17.0); MEAN CORPUSCULAR HEMOGLOBIN 34.6 pg (27.0-33.4); MEAN CORPUSCULAR VOLUME 94 fl (80-97); PLATELET COUNT 214 10^3/uL (150-450); RED BLOOD COUNT 2.35 10^6/uL (4.35-5.55); RED CELL DISTRIBUTION WIDTH 27.6 % (11.5-14.0)
[2018-06-12 05:01] LABS: ABSOLUTE LYMPHOCYTES# (MANUAL) 1.7 10^3/uL (0.5-4.7); ABSOLUTE MONOCYTES # (MANUAL) 0.8 10^3/uL (0.1-1.4); ABSOLUTE NEUTROPHILS# (MANUAL) 2.5 10^3/uL (1.7-8.2); BASOPHILS % (MANUAL) 0 % (0-2); EOSINOPHILS % (MANUAL) 6 % (0-6); LYMPHOCYTES % (MANUAL) 32 % (13-45); MONOCYTES % (MANUAL) 15 % (3-13); NUCLEATED RED BLOOD CELLS 39 /100 WBC (0); SEGMENTED NEUTROPHILS % (MAN) 47 % (42-78); TOTAL CELLS COUNTED 100
[2018-06-12 05:04] LABS: ANISOCYTOSIS 4+; OVALOCYTES SLIGHT; PLATELET COMMENT ADEQUATE; POIKILOCYTOSIS 1+; POLYCHROMASIA 1+; SICKLE RED CELLS 1+; TARGET CELLS SLIGHT; TEAR DROP CELLS SLIGHT
[2018-06-12 05:06] LABS: WHITE BLOOD COUNT 5.8 10^3/uL (4.0-10.5)
[2018-06-12] MEDS: FENTANYL 75 MCG/HR PATCH.TD72 TD SCH (09:49)
[2018-06-12] MEDS: FOLIC ACID 1 MG TABLET PO SCH (09:50)
[2018-06-12] MEDS: HYDROXYUREA 500 MG CAPSULE PO SCH (09:51)
[2018-06-12] MEDS: ENOXAPARIN SODIUM INJ 40 MG/0.4 ML DISP.SYRIN SUBCUT SCH (10:03)
--- NOTE | 2018-06-12 16:48 | PDOC PROGRESS REPORT ---
Subjective Progress Note for:: 06/12/18 Subjective:: Patient continue to make gradual progress with pain management. he was able to ambulate on the floor earlier today with minimal mid back pain. Remain on IV Dilaudid and Fentanyl patch for pain management. Reason For Visit: ACUTE CHEST SYNDROME, SICKLE CELL DISEASE Physical Exam Vital Signs: Temp Pulse Resp BP Pulse Ox 98.4 F 94 16 109/68 98 06/12/18 15:03 06/12/18 15:03 06/12/18 15:03 06/12/18 15:03 06/12/18 15:03 Intake & Output 06/11/18 06/12/18 06/13/18 06:59 06:59 06:59 Intake Total 3338 3874 1050 Output Total 2600 3325 800 Balance 738 549 250 Weight 59.9 kg 60 kg Physical Exam: General appearance: PRESENT: no acute distress, well-developed, well-nourished Head exam: PRESENT: atraumatic, normocephalic Eye exam: PRESENT: conjunctiva pink, EOMI, PERRLA. ABSENT: scleral icterus Ear exam: PRESENT: normal external ear exam Mouth exam: PRESENT: moist Respiratory exam: PRESENT: clear to auscultation ethan Cardiovascular exam: PRESENT: RRR. ABSENT: diastolic murmur, rubs, systolic murmur Vascular exam: ABSENT: pallor GI/Abdominal exam: PRESENT: normal bowel sounds, soft. ABSENT: distended, guarding, mass, organomegaly, rebound, tenderness Extremities exam: ABSENT: pedal edema Musculoskeletal exam: PRESENT: normal inspection, tenderness - mid back region improving. Neurological exam: PRESENT: alert, awake, oriented to person, oriented to place , oriented to time, oriented to situation, CN II-XII grossly intact. ABSENT: motor sensory deficit Psychiatric exam: PRESENT: appropriate affect, normal mood. ABSENT: homicidal ideation, suicidal ideation Skin exam: PRESENT: dry, intact, warm. ABSENT: cyanosis, rash Results Laboratory Results: 06/12/18 04:25 06/11/18 04:35 06/12/18 04:25 WBC 5.8 RBC 2.35 L Hgb 8.1 L Hct 22.0 L MCV 94 MCH 34.6 H MCHC 37.0 H RDW 27.6 H Plt Count 214 Seg Neutrophils % Not Reportable Lymphocytes % Not Reportable Monocytes % Not Reportable Eosinophils % Not Reportable Basophils % Not Reportable Absolute Neutrophils Not Reportable Absolute Lymphocytes Not Reportable Absolute Monocytes Not Reportable Absolute Eosinophils Not Reportable Absolute Basophils Not Reportable 06/09/18 06/09/18 06/09/18 00:46 00:46 06:26 Creatine Kinase 70 79 CK-MB (CK-2) 0.25 Troponin I 0.020 06/09/18 06/09/18 06/09/18 06:26 13:00 13:00 Creatine Kinase 73 CK-MB (CK-2) 0.36 0.50 Troponin I 0.017 0.017 Impressions: Chest X-Ray 06/08/18 22:33 IMPRESSION: No acute disease. Assessment & Plan - Diagnosis (1) Sickle cell pain crisis Is this a current diagnosis for this admission?: Yes (2) Homozygous sickle cell (SS) disease Is this a current diagnosis for this admission?: Yes (3) Bacteremia of undetermined etiology Is this a current diagnosis for this admission?: Yes (4) Asthma Qualifiers: Asthma severity: mild Asthma complication type: unspecified Is this a current diagnosis for this admission?: Yes - Time Time Spent with patient: 25-34 minutes Medications reviewed and adjusted accordingly: Yes Anticipated discharge: Home Within: Other - Inpatient Certification Based on my medical assessment, after consideration of the patient's comorbidities, presenting symptoms, or acuity I expect that the services needed warrant INPATIENT care.: Yes I certify that my determination is in accordance with my understanding of Medicare's requirements for reasonable and necessary INPATIENT services [42 CFR 412.3e].: Yes Medical Necessity: Need Close Monitoring Due to Risk of Patient Decompensation, Need For IV Fluids, Need For Continuous Telemetry Monitoring, Need for IV Antibiotics, Risk of Complication if Not Cared For in Hospital 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 Maintain on all other current management. Possible discharge home in next 24 hours if he continues to improve.
[2018-06-13] MEDS: NORMAL SALINE 1000 ML 1,000 ML IV PRN ×2 (00:27→10:54)
[2018-06-13] MEDS: HYDROMORPHONE HCL INJ/PF 2 MG/ML AMPULE IV PRN ×4 (02:20→15:09)
[2018-06-13] MEDS: FOLIC ACID 1 MG TABLET PO SCH (10:13)
[2018-06-13] MEDS: HYDROXYUREA 500 MG CAPSULE PO SCH (10:13)
[2018-06-13] MEDS: ENOXAPARIN SODIUM INJ 40 MG/0.4 ML DISP.SYRIN SUBCUT SCH (10:14)
[2018-06-13 14:51] VITALS: BP 118/80
--- NOTE | 2018-06-13 15:42 | PDOC DISCHARGE SUMMARY ---
General - Admit/Disc Date/PCP Admission Date/Primary Care Provider: 06/09/18 00:13 ANDREW WILLIS Discharge Date: 06/13/18 - Discharge Diagnosis (1) Sickle cell pain crisis Is this a current diagnosis for this admission?: Yes (2) Homozygous sickle cell (SS) disease Is this a current diagnosis for this admission?: Yes (3) Bacteremia of undetermined etiology Is this a current diagnosis for this admission?: Yes (4) Asthma Is this a current diagnosis for this admission?: Yes - Additional Information Resuscitation Status: Full Code Home Medications: Fentanyl [Duragesic 75 Mcg/Hr Transdermal Patch] 1 each TD Q3D 06/09/18 Folic Acid [Folvite 1 mg Tablet] 1 mg PO DAILY 06/09/18 Hydroxyurea [Hydrea 500 mg Capsule] 1,000 mg PO SUTUTHSA@1000 06/09/18 Hydroxyurea [Hydrea 500 mg Capsule] 1,500 mg PO MOWEFR@1000 06/09/18 History of Present Illness Patient complains of: chest pain History of Present Illness: MARINO POZO is a 22 year old male known to my service with recurrent admission for homogenous SS Sickle Cell disease pain and hemolytic crises. he presented to the ED with new onset chest pain that started several hours before presenting to the ED. He described his pain as severe throbbing and achy pain. Patient reported that his home pain management regimen were not effectively controlling his pain. He localized pain mainly to his chest region without radiation into his shoulder. There is associated difficulty with breathing but patient claimed it is usual due to his sickle cell related pain crisis. His initial evaluation in the ED was remarkable for tachycardia, tachypnea and intermittent episodes of hypoxia. Due to persistence of his pain and associated symptoms he was advised hospitalization for further evaluation and management. His morbidities include Asthma and current home infusion therapy for bacteremia. Hospital Course Hospital Course: Patient responded to IV fluid support and pain management with Dilaudid on prn basis. His pain was adequately controlled while on admission. He remain on IV Cefazolin therapy for bacteremia. He remain afebrile in the last 48 hours. he will be discharge home today with follow up appointment with Dr. Carlos and myself as instructed upon discharge. Physical Exam Vital Signs: Temp Pulse Resp BP Pulse Ox 98.4 F 91 18 118/80 99 06/13/18 12:00 06/13/18 12:00 06/13/18 12:00 06/13/18 12:00 06/13/18 12:00 Intake & Output 06/12/18 06/13/18 06/14/18 06:59 06:59 06:59 Intake Total 3874 3190 1000 Output Total 3325 2200 Balance 565 172 2255 Weight 60 kg 60.1 kg Physical Exam: General appearance: PRESENT: no acute distress, well-developed, well-nourished Head exam: PRESENT: atraumatic, normocephalic Eye exam: PRESENT: conjunctiva pink, EOMI, PERRLA. ABSENT: scleral icterus Ear exam: PRESENT: normal external ear exam Mouth exam: PRESENT: moist Respiratory exam: PRESENT: clear to auscultation ethan Cardiovascular exam: PRESENT: RRR. ABSENT: diastolic murmur, rubs, systolic murmur Vascular exam: ABSENT: pallor GI/Abdominal exam: PRESENT: normal bowel sounds, soft. ABSENT: distended, guarding, mass, organomegaly, rebound, tenderness Extremities exam: ABSENT: pedal edema Musculoskeletal exam: PRESENT: normal inspection, improved mid back tenderness. Neurological exam: PRESENT: alert, awake, oriented to person, oriented to place , oriented to time, oriented to situation, CN II-XII grossly intact. ABSENT: motor sensory deficit Psychiatric exam: PRESENT: appropriate affect, normal mood. ABSENT: homicidal ideation, suicidal ideation Skin exam: PRESENT: dry, intact, warm. ABSENT: cyanosis, rash Results Laboratory Results: 06/12/18 04:25 06/11/18 04:35 06/09/18 06/09/18 06/09/18 00:46 00:46 06:26 Creatine Kinase 70 79 CK-MB (CK-2) 0.25 Troponin I 0.020 06/09/18 06/09/18 06/09/18 06:26 13:00 13:00 Creatine Kinase 73 CK-MB (CK-2) 0.36 0.50 Troponin I 0.017 0.017 Impressions: Chest X-Ray 06/08/18 22:33 IMPRESSION: No acute disease. Qualifiers - * PATIENT BEING DISCHARGED WITH ANY OF THE FOLLOWING DIAGNOSIS: No Plan Discharge Plan: D/C home today. Follow up with Dr. Carlos and myself as informed upon discharge.
== END 2018-06-13 16:50 | disposition home or self-care (01) | DRG 812 ==
LOC: ER 17:47 → EH 06-09 00:13 → 5 06-09 01:44
PROVIDERS: ADMIT Internal Medicine Geriatric Medicine; ATTEND Internal Medicine Geriatric Medicine
DX: D57.00 Hb-SS disease with crisis, unspecified (principal); R78.81 Bacteremia; J45.909 Unspecified asthma, uncomplicated; M25.561 Pain in right knee
CPT/HCPCS: 36415; 71045; 80048; 80053; 80061; 80307; 81001; 82140; 82150; 82550; 82553; 83036; 83690; 83735; 84100; 84439; 84443; 84484; 85025; 85045; 85610; 85730; 94640; 96361; 96374; 96376; 99285; A9270-GY; J0690; J1170; J1650; J1956; J7030; J7620

== ENCOUNTER 2018-06-14 22:45 | Emergency (ER) | payer MEDICAID ==
[2018-06-14] MEDS ORDERED: NORMAL SALINE 500 ML IV ONE (23:41)
--- NOTE | 2018-06-14 23:43 | ER Document Report ---
ED Medical Screen (RME) - General Chief Complaint: Sickle Cell Crisis Stated Complaint: ABDOMINAL PAINS Time Seen by Provider: 06/14/18 23:40 Mode of Arrival: Ambulatory Information source: Patient Notes: 22-year-old male presented ED for complaint of back pain across the lower back for 2 days. He states this is his typical sickle cell pain. He states that when he called the doctor's office 2 days ago that he said "office was already closed and then when he called again they stated that Dr. Willis was on vacation. Patient is alert and oriented respirations regular and unlabored speaking in full sentences walks with a even steady gait. Patient states he has a history of asthma and sickle cell anemia. He states he does not smoke or do any drugs but he does rarely drink maybe once a year. I have greeted and performed a rapid initial assessment of this patient. A comprehensive ED assessment and evaluation of the patient, analysis of test results and completion of medical decision making process will be conducted by an additional ED providers. TRAVEL OUTSIDE OF THE [place] IN LAST 30 DAYS: No - Related Data Allergies/Adverse Reactions: Coconut * [Coconut] Allergy (Mild, Verified 06/04/18 18:27) transpore tape Allergy (Mild, Uncoded 06/04/18 18:27) Hives Past Medical History - Social History Family history: None Pulmonary Medical History: Reports: Hx Asthma, Hx Pneumonia Renal/ Medical History: Denies: Hx Peritoneal Dialysis Psychiatric Medical History: Denies: Hx Depression Past Surgical History: Reports: Hx Abdominal Surgery - Gallstones removal, Hx Cholecystectomy, Hx Orthopedic Surgery - Fluid drained from right foot, Hx Vascular Surgery - Port placement - Immunizations Immunizations up to date: Yes Hx Diphtheria, Pertussis, Tetanus Vaccination: Yes History of Influenza Vaccine for 06/2017 - 10/2017 Season: Yes Influenza Administration Date for 06/2017 - 10/2017 Season: 06/02/17 Physical Exam - Vital signs Vitals: Temp Pulse Resp BP Pulse Ox 99.2 F 103 H 16 143/81 H 94 06/14/18 22:58 06/14/18 22:58 06/14/18 22:58 06/14/18 22:58 06/14/18 22:58 Course - Vital Signs Vital signs: Temp Pulse Resp BP Pulse Ox 99.2 F 103 H 16 143/81 H 94 06/14/18 22:58 06/14/18 22:58 06/14/18 22:58 06/14/18 22:58 06/14/18 22:58 Doctor's Discharge - Discharge Referrals: ANDREW WILLIS MD [Primary Care Provider] - Follow up as needed
[2018-06-15] MEDS ORDERED: HYDROMORPHONE HCL INJ/PF 2 MG/ML AMPULE IV ONE ×5 (00:31→05:11)
[2018-06-15 01:08] LABS: ABSOLUTE RETICS # 0.243 10^6/uL (0.028-0.122); HEMOGLOBIN 8.9 g/dL (13.5-17.0); MEAN CORPUSCULAR HEMOGLOBIN 33.5 pg (27.0-33.4); MEAN CORPUSCULAR HGB CONC 35.7 g/dL (32.0-36.0); MEAN CORPUSCULAR VOLUME 94 fl (80-97); PLATELET COUNT 278 10^3/uL (150-450); RED BLOOD COUNT 2.67 10^6/uL (4.35-5.55); RED CELL DISTRIBUTION WIDTH 27.6 % (11.5-14.0); RETICULOCYTE COUNT (AUTO) 9.09 % (0.66-2.85)
[2018-06-15 01:41] LABS: ABSOLUTE LYMPHOCYTES# (MANUAL) 3.1 10^3/uL (0.5-4.7); ABSOLUTE MONOCYTES # (MANUAL) 0.1 10^3/uL (0.1-1.4); ANISOCYTOSIS 3+; BASOPHILS % (MANUAL) 0 % (0-2); EOSINOPHILS % (MANUAL) 5 % (0-6); LYMPHOCYTES % (MANUAL) 32 % (13-45); MONOCYTES % (MANUAL) 1 % (3-13); NUCLEATED RED BLOOD CELLS 34 /100 WBC (0); POIKILOCYTOSIS 3+; POLYCHROMASIA 2+; SEGMENTED NEUTROPHILS % (MAN) 62 % (42-78); SICKLE RED CELLS 3+; TARGET CELLS 1+; TOTAL CELLS COUNTED 100
[2018-06-15 01:42] LABS: HYPOCHROMASIA 1+; OVALOCYTES 1+; PLATELET COMMENT ADEQUATE
[2018-06-15 01:43] LABS: WHITE BLOOD COUNT 7.2 10^3/uL (4.0-10.5)
[2018-06-15 01:51] LABS: ALANINE AMINOTRANSFERASE 16 U/L (21-72); ALBUMIN 4.4 g/dL (3.5-5.0); ALKALINE PHOSPHATASE 115 U/L (38-126); ANION GAP 11 (5-19); ASPARTATE AMINO TRANSFERASE 57 U/L (17-59); BILIRUBIN,DIRECT 0.8 mg/dL (0.0-0.4); BILIRUBIN,TOTAL 3.6 mg/dL (0.2-1.3); BLOOD UREA NITROGEN 10 mg/dL (7-20); CALCIUM 8.9 mg/dL (8.4-10.2); CARBON DIOXIDE 23 mmol/L (22-30); CHLORIDE 110 mmol/L (98-107); GLUCOSE 118 mg/dL (75-110); POTASSIUM 4.3 mmol/L (3.6-5.0); SODIUM 144.4 mmol/L (137-145); TOTAL PROTEIN 7.8 g/dL (6.3-8.2)
[2018-06-15] MEDS ORDERED: DIPHENHYDRAMINE HCL 50 MG/ML VIAL IV ONE ×2 (02:43→05:11)
[2018-06-15] MEDS ORDERED: DIPHENHYDRAMINE HCL 50 MG/ML VIAL ONE ×2 (02:54→05:32)
[2018-06-15 04:26] LABS: APPEARANCE,URINE CLEAR; BILIRUBIN,URINE NEGATIVE (NEGATIVE); COLOR,URINE YELLOW; GLUCOSE, URINE NEGATIVE (NEGATIVE); KETONES,URINE NEGATIVE (NEGATIVE); LEUKOCYTE ESTERASE,URINE TRACE (NEGATIVE); NITRITE,URINE NEGATIVE (NEGATIVE); PROTEIN,URINE 30 mg/dL (NEGATIVE); URINE SPECIFIC GRAVITY 1.011
--- NOTE | 2018-06-15 05:55 | ER Document Report ---
ED General - General Chief Complaint: Sickle Cell Crisis Stated Complaint: ABDOMINAL PAINS Time Seen by Provider: 06/14/18 23:40 Mode of Arrival: Ambulatory Information source: Patient Notes: Patient is a 22-year-old male who presents with chief complaint of sickle cell crisis. Patient reports pain to his bilateral knees for 2 days now. Patient denies any chest pain or cough. Patient has not had any fever. Patient states this feels like his usual sickle cell crisis. TRAVEL OUTSIDE OF THE [place] IN LAST 30 DAYS: No - Related Data Allergies/Adverse Reactions: Coconut * [Coconut] Allergy (Mild, Verified 06/04/18 18:27) transpore tape Allergy (Mild, Uncoded 06/04/18 18:27) Hives Past Medical History - General Information source: Patient - Social History Smoking Status: Never Smoker Frequency of alcohol use: None Drug Abuse: None Family History: Reviewed & Not Pertinent, Arthritis, DM, Hypertension, Other - Sickle cell trait both parents and asthma Patient has suicidal ideation: No Patient has homicidal ideation: No Pulmonary Medical History: Reports: Hx Asthma, Hx Pneumonia Renal/ Medical History: Denies: Hx Peritoneal Dialysis Psychiatric Medical History: Denies: Hx Depression Past Surgical History: Reports: Hx Abdominal Surgery - Gallstones removal, Hx Cholecystectomy, Hx Orthopedic Surgery - Fluid drained from right foot, Hx Vascular Surgery - Port placement - Immunizations Immunizations up to date: Yes Hx Diphtheria, Pertussis, Tetanus Vaccination: Yes Hx Pneumococcal Vaccination: 01/15/13 Review of Systems - Review of Systems Musculoskeletal: See HPI -: Yes All other systems reviewed and negative Physical Exam - Vital signs Vitals: Temp Pulse Resp BP Pulse Ox 99.2 F 103 H 16 143/81 H 94 06/14/18 22:58 06/14/18 22:58 06/14/18 22:58 06/14/18 22:58 06/14/18 22:58 - Notes Notes: PHYSICAL EXAMINATION: GENERAL: Well-appearing, well-nourished and in no acute distress. HEAD: Atraumatic, normocephalic. EYES: Pupils equal round and reactive to light, extraocular movements intact, sclera anicteric, conjunctiva are normal. ENT: Nares patent, oropharynx clear without exudates. Moist mucous membranes. NECK: Normal range of motion, supple without lymphadenopathy LUNGS: Breath sounds clear to auscultation bilaterally and equal. No wheezes rales or rhonchi. HEART: Regular rate and rhythm without murmurs ABDOMEN: Soft, nontender, nondistended abdomen. No guarding, no rebound. No masses appreciated. Musculoskeletal: Normal range of motion, no pitting or edema. No cyanosis. NEUROLOGICAL: Cranial nerves grossly intact. Normal speech, normal gait. Normal sensory, motor exams PSYCH: Normal mood, normal affect. SKIN: Warm, Dry, normal turgor, no rashes or lesions noted. Course - Re-evaluation Re-evalutation: Patient is alert, oriented and nontoxic in appearance. Patient is very well- known to our facility and presents frequently with episodes of sickle cell crisis. Reticulocyte count is 9.09. Absolute reticulocytes 0.243. Total bili 3.6. Direct bili 0.8. Urinalysis with trace leukocyte esterase. All labs otherwise unremarkable. Patient was given IV fluids and multiple rounds of IV Dilaudid and Benadryl. Patient's pain was significantly improved after several hours. Patient discharged home in stable condition. - Vital Signs Vital signs: Temp Pulse Resp BP Pulse Ox 97.6 F 116 H 17 131/81 H 94 06/15/18 06:07 06/15/18 06:07 06/15/18 06:07 06/15/18 06:07 06/15/18 06:07 - Laboratory Result Diagrams: 06/15/18 00:40 06/15/18 01:26 Laboratory results interpreted by me: 06/15/18 06/15/18 06/15/18 00:40 01:26 03:18 RBC 2.67 L Hgb 8.9 L Hct 25.0 L MCH 33.5 H RDW 27.6 H Monocytes % (Manual) 1 L Retic Count (auto) 9.09 H Absolute Retic 0.243 H Chloride 110 H Glucose 118 H Total Bilirubin 3.6 H Direct Bilirubin 0.8 H ALT 16 L Urine Protein 30 H Urine Blood SMALL H Urine Urobilinogen 4.0 H Ur Leukocyte Esterase TRACE H Discharge - Discharge Clinical Impression: Sickle cell crisis Condition: Stable Disposition: HOME, SELF-CARE Additional Instructions: Sickle Cell Crisis You have "sickle cell crisis." Sickle cell disease is caused by abnormal hemoglobin. This hemoglobin can deform red blood cells into a sickle shape. These abnormal blood cells can block blood vessels. This causes the pain of sickle cell crisis. Sickle cell crisis can occur any time. But attacks are more likely with acute infection, dehydration, or altitude change. A crisis usually causes pain in the legs, back, abdomen, and chest. Sometimes the pain may ease and return later. The usual treatment is oxygen, pain medication, IV fluids, and treatment of infection. Attacks may take a couple of days to resolve. Return if the pain becomes more severe, or if there are new symptoms. Referrals: ANDREW WILLIS MD [Primary Care Provider] - Follow up as needed
[2018-06-15 06:08] VITALS: BP 131/81
== END 2018-06-15 06:06 | disposition home or self-care (01) ==
LOC: ER 22:45
DX: D57.00 Hb-SS disease with crisis, unspecified (principal); Z90.49 Acquired absence of other specified parts of digestive tract
CPT/HCPCS: 96376; 99284; 96361; 96374; 96375; 36415; 85025; 85045; 80053; 81001; J1200; J1170; J7040

== ENCOUNTER 2018-06-16 17:59 | Emergency (ER) | payer MEDICAID ==
[2018-06-16] MEDS ORDERED: HYDROMORPHONE HCL INJ/PF 2 MG/ML AMPULE IV ONE ×2 (19:59→22:02)
[2018-06-16] MEDS ORDERED: DIPHENHYDRAMINE HCL 50 MG/ML VIAL IV ONE (19:59)
--- NOTE | 2018-06-16 20:02 | ER Document Report ---
ED Medical Screen (RME) - General Chief Complaint: Sickle Cell Crisis- R knee pain Stated Complaint: RIGHT KNEE PAIN Time Seen by Provider: 06/16/18 19:54 Notes: Patient is a 22-year-old male presenting to the emergency department complaining of right knee pain. Patient has sickle cell anemia. 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 Patient denies trauma to right knee. Patient states pain has increased over the last 2 days and patient states he took 15 mg of oxycodone at 1630 which did not help. Patient denies any URI symptoms, fever, chest pain, shortness of breath, abdominal pain. Past medical history: Sickle cell anemia, asthma Medications: Hydroxyurea, folic acid, Advair, oxycodone Allergies: Coconut, tape Physical exam: Physical exam limited due to patient having pants on and unwilling to take his pants off. Patient has decreased range of motion to the right knee secondary to pain. No pain in right hip or right foot. I have greeted and performed a rapid initial assessment of this patient. A comprehensive ED assessment and evaluation of the patient, analysis of test results and completion of the medical decision making process will be conducted by additional ED providers. TRAVEL OUTSIDE OF THE [place] IN LAST 30 DAYS: No - Related Data Allergies/Adverse Reactions: Coconut * [Coconut] Allergy (Mild, Verified 06/04/18 18:27) transpore tape Allergy (Mild, Uncoded 06/04/18 18:27) Hives Past Medical History - Social History Family history: None Pulmonary Medical History: Reports: Hx Asthma, Hx Pneumonia Renal/ Medical History: Denies: Hx Peritoneal Dialysis Psychiatric Medical History: Denies: Hx Depression Past Surgical History: Reports: Hx Abdominal Surgery - Gallstones removal, Hx Cholecystectomy, Hx Orthopedic Surgery - Fluid drained from right foot, Hx Vascular Surgery - Port placement - Immunizations Immunizations up to date: Yes Hx Diphtheria, Pertussis, Tetanus Vaccination: Yes History of Influenza Vaccine for 06/2017 - 10/2017 Season: Yes Influenza Administration Date for 06/2017 - 10/2017 Season: 06/02/17 Physical Exam - Vital signs Vitals: Temp Pulse Resp BP Pulse Ox 99.0 F 116 H 20 145/92 H 95 06/16/18 18:15 06/16/18 18:15 06/16/18 18:15 06/16/18 18:15 06/16/18 18:15 Course - Vital Signs Vital signs: Temp Pulse Resp BP Pulse Ox 99.0 F 116 H 20 145/92 H 95 06/16/18 18:15 06/16/18 18:15 06/16/18 18:15 06/16/18 18:15 06/16/18 18:15 Doctor's Discharge - Discharge Referrals: ANDREW WILLIS MD [Primary Care Provider] - Follow up as needed
[2018-06-16] MEDS ORDERED: DIPHENHYDRAMINE HCL 50 MG CAPSULE PO ONE (20:26)
[2018-06-16 21:13] LABS: ABSOLUTE RETICS # 0.411 10^6/uL (0.028-0.122); HEMOGLOBIN 8.8 g/dL (13.5-17.0); MEAN CORPUSCULAR HEMOGLOBIN 34.2 pg (27.0-33.4); MEAN CORPUSCULAR HGB CONC 35.3 g/dL (32.0-36.0); MEAN CORPUSCULAR VOLUME 97 fl (80-97); PLATELET COUNT 299 10^3/uL (150-450); RED BLOOD COUNT 2.57 10^6/uL (4.35-5.55); RED CELL DISTRIBUTION WIDTH 32.9 % (11.5-14.0); RETICULOCYTE COUNT (AUTO) 15.99 % (0.66-2.85); WHITE BLOOD COUNT 8.7 10^3/uL (4.0-10.5)
[2018-06-16] MEDS ORDERED: NORMAL SALINE 1000 ML 1,000 ML IV ONE (21:24)
[2018-06-16] MEDS ORDERED: ONDANSETRON HCL INJ/PF 4 MG/2 ML SDV IV ONE (21:25)
[2018-06-16 21:36] LABS: ABSOLUTE MONOCYTES # (MANUAL) 0.6 10^3/uL (0.1-1.4); ABSOLUTE NEUTROPHILS# (MANUAL) 4.8 10^3/uL (1.7-8.2); BASOPHILS % (MANUAL) 1 % (0-2); EOSINOPHILS % (MANUAL) 2 % (0-6); LYMPHOCYTES % (MANUAL) 35 % (13-45); MONOCYTES % (MANUAL) 7 % (3-13); NUCLEATED RED BLOOD CELLS 47 /100 WBC (0); SEGMENTED NEUTROPHILS % (MAN) 55 % (42-78); TOTAL CELLS COUNTED 100
[2018-06-16 21:41] LABS: ALANINE AMINOTRANSFERASE 19 U/L (21-72); ALBUMIN 4.7 g/dL (3.5-5.0); ALKALINE PHOSPHATASE 110 U/L (38-126); ANION GAP 10 (5-19); ASPARTATE AMINO TRANSFERASE 80 U/L (17-59); BILIRUBIN,DIRECT 0.8 mg/dL (0.0-0.4); BILIRUBIN,TOTAL 3.7 mg/dL (0.2-1.3); BLOOD UREA NITROGEN 10 mg/dL (7-20); CALCIUM 9.8 mg/dL (8.4-10.2); CARBON DIOXIDE 24 mmol/L (22-30); CHLORIDE 108 mmol/L (98-107); GLUCOSE 89 mg/dL (75-110); POTASSIUM 4.7 mmol/L (3.6-5.0); SODIUM 142.3 mmol/L (137-145); TOTAL PROTEIN 8.5 g/dL (6.3-8.2)
[2018-06-16 21:45] LABS: ANISOCYTOSIS 4+; PLATELET COMMENT ADEQUATE; POIKILOCYTOSIS 3+; POLYCHROMASIA 1+; SICKLE RED CELLS 3+; TARGET CELLS 1+
--- NOTE | 2018-06-16 22:45 | RADIOLOGY REPORT (SQ) ---
EXAM DESCRIPTION: XR KNEE 4 OR MORE VIEWS COMPLETED DATE/TME: 06/16/2018 21:24 CLINICAL HISTORY: 22 years, Male, Pain COMPARISON: EXAM DESCRIPTION: CLINICAL HISTORY: Pain COMPARISON: None FINDINGS: 4 view(s) submitted. There is diffuse heterogeneous bone marrow attenuation, likely related to known sickle cell anemia. No pathologic fracture. No knee joint effusion.. Metastases are not excluded. No dislocation. IMPRESSION: Diffuse bone marrow abnormality likely related to sickle cell anemia. No acute fracture or dislocation. NUMBER OF VIEWS: TECHNIQUE: LIMITATIONS: None. FINDINGS: IMPRESSION: 2010 [employer]- All Rights Reserved
--- NOTE | 2018-06-17 01:09 | ER Document Report ---
ED General Pain - General Chief Complaint: Sickle Cell Crisis- R knee pain Stated Complaint: RIGHT KNEE PAIN Time Seen by Provider: 06/16/18 19:54 Mode of Arrival: Ambulatory Information source: Patient Notes: Patient complained of right knee pain. Said he has been taking his pain medicine at home without relief. Patient is demanding Dilaudid in the emergency room. TRAVEL OUTSIDE OF THE [place] IN LAST 30 DAYS: No - HPI Onset: Yesterday Onset/Duration: Gradual Quality of pain: Sharp Severity: Severe Pain Level: 4 Context: Joint pain Typical of prior episodes of painful crisis: Yes Genotype: SS Associated symptoms: None Exacerbated by: Denies Relieved by: Denies Similar symptoms previously: Yes Recently seen / treated by doctor: No - Related Data Allergies/Adverse Reactions: Coconut * [Coconut] Allergy (Mild, Verified 06/04/18 18:27) transpore tape Allergy (Mild, Uncoded 06/04/18 18:27) Hives Past Medical History - Social History Smoking Status: Never Smoker Family History: Reviewed & Not Pertinent, Arthritis, DM, Hypertension, Other - Sickle cell trait both parents and asthma Patient has suicidal ideation: No Patient has homicidal ideation: No Pulmonary Medical History: Reports: Hx Asthma, Hx Pneumonia Renal/ Medical History: Denies: Hx Peritoneal Dialysis Psychiatric Medical History: Denies: Hx Depression Past Surgical History: Reports: Hx Abdominal Surgery - Gallstones removal, Hx Cholecystectomy, Hx Orthopedic Surgery - Fluid drained from right foot, Hx Vascular Surgery - Port placement - Immunizations Immunizations up to date: Yes Hx Diphtheria, Pertussis, Tetanus Vaccination: Yes Hx Pneumococcal Vaccination: 01/15/13 Review of Systems - Review of Systems Constitutional: No symptoms reported EENT: No symptoms reported Cardiovascular: No symptoms reported Respiratory: No symptoms reported Gastrointestinal: No symptoms reported Genitourinary: No symptoms reported Male Genitourinary: No symptoms reported Musculoskeletal: Other - Right Knee pain Skin: No symptoms reported Hematologic/Lymphatic: No symptoms reported Neurological/Psychological: No symptoms reported -: Yes All other systems reviewed and negative Physical Exam - Vital signs Vitals: Temp Pulse Resp BP Pulse Ox 99.0 F 116 H 20 145/92 H 95 06/16/18 18:15 06/16/18 18:15 06/16/18 18:15 06/16/18 18:15 10/15/18 18:15 Interpretation: Normal - General General appearance: Appears well, Alert - HEENT Head: Normocephalic, Atraumatic Eyes: Normal Pupils: PERRL - Respiratory Respiratory status: No respiratory distress Chest status: Nontender Breath sounds: Normal Chest palpation: Normal - Cardiovascular Rhythm: Regular Heart sounds: Normal auscultation Murmur: No - Abdominal Inspection: Normal Distension: No distension Bowel sounds: Normal Tenderness: Nontender Organomegaly: No organomegaly - Back Back: Normal, Nontender - Extremities General upper extremity: Normal inspection, Nontender, Normal color, Normal ROM , Normal temperature General lower extremity: Normal inspection, Nontender, Normal color, Normal ROM , Normal temperature, Normal weight bearing. No: Jeannine's sign - Neurological Neuro grossly intact: Yes Cognition: Normal Orientation: AAOx4 Rodo Coma Scale Eye Opening: Spontaneous [place] Coma Scale Verbal: Oriented [place] Coma Scale Motor: Obeys Commands [place] Coma Scale Total: 15 Speech: Normal Motor strength normal: LUE, RUE, LLE, RLE Sensory: Normal - Psychological Associated symptoms: Normal affect, Normal mood - Skin Skin Temperature: Warm Skin Moisture: Dry Skin Color: Normal Course - Vital Signs Vital signs: Temp Pulse Resp BP Pulse Ox 99.0 F 116 H 17 123/81 94 06/16/18 18:15 06/16/18 18:15 06/17/18 01:01 06/17/18 01:01 06/17/18 00:06 - Laboratory Result Diagrams: 06/16/18 20:58 06/16/18 20:58 Laboratory results interpreted by me: 06/16/18 06/16/18 20:58 20:58 RBC 2.57 L Hgb 8.8 L Hct 25.0 L MCH 34.2 H RDW 32.9 H Retic Count (auto) 15.99 H Absolute Retic 0.411 H Chloride 108 H Total Bilirubin 3.7 H Direct Bilirubin 0.8 H AST 80 H ALT 19 L Total Protein 8.5 H - Diagnostic Test Radiology reviewed: Image reviewed, Reports reviewed - Transfer of Care Notes: 06/17/18 04:05 Right knee pain. Sickle cell pain crisis. Critical Care Note - Critical Care Note Total time excluding time spent on procedures (mins): 45 Discharge - Discharge Clinical Impression: Sickle cell pain crisis Right knee pain Qualifiers: Chronicity: chronic Qualified Code(s): M25.561 - Pain in right knee Condition: Stable Disposition: HOME, SELF-CARE Instructions: Sickle Cell Crisis ([facility]) Additional Instructions: Please follow up with your regular doctor tomorrow morning. Return to the ED if your condition worsens. Referrals: ANDREW WILLIS MD [Primary Care Provider] - Follow up as needed
[2018-06-17 01:17] VITALS: BP 123/81
== END 2018-06-17 01:20 | disposition home or self-care (01) ==
LOC: ER 17:59
DX: D57.00 Hb-SS disease with crisis, unspecified (principal); M25.561 Pain in right knee; Z90.49 Acquired absence of other specified parts of digestive tract
CPT/HCPCS: 96376; 99285; 96361; 96374; 96375; 36415; 85025; 85045; 80053; 73564; J3490; J1170; J2405; J7030

== ENCOUNTER 2018-06-17 13:45 | Emergency (ER) | payer MEDICAID ==
[2018-06-17] MEDS ORDERED: NORMAL SALINE 1000 ML 1,000 ML IV ONE (14:33)
[2018-06-17] MEDS ORDERED: HYDROMORPHONE HCL INJ/PF 2 MG/ML AMPULE IV ONE ×2 (14:38→16:59)
--- NOTE | 2018-06-17 14:46 | ER Document Report ---
ED General - General Chief Complaint: Chest Pain Stated Complaint: RIGHT KNEE PAIN Time Seen by Provider: 06/17/18 14:32 Mode of Arrival: Ambulatory Information source: Patient Notes: 22-year-old male presents to ED for complaint of sickle cell pain to the right knee and chest. He was here last night for the same. He called today because he is scheduled for a bone marrow transplant next week and he called his doctor and they stated that they wanted to blood work x-ray and to ensure that he was not having any problems before driving to [place] for his transplant. Patient is alert and oriented respirations regular and unlabored speaking in full sentences walks with a even gait. TRAVEL OUTSIDE OF THE [place] IN LAST 30 DAYS: No - HPI Onset: Other - chronic Onset/Duration: Persistent Quality of pain: Sharp Severity: Moderate Pain Level: 4 Associated symptoms: Chest pain, Other - Right knee pain Exacerbated by: Denies Relieved by: Denies Similar symptoms previously: Yes Recently seen / treated by doctor: Yes - Related Data Allergies/Adverse Reactions: Coconut * [Coconut] Allergy (Mild, Verified 06/04/18 18:27) transpore tape Allergy (Mild, Uncoded 06/04/18 18:27) Hives Past Medical History - General Information source: Patient - Social History Smoking Status: Never Smoker Cigarette use (# per day): No Chew tobacco use (# tins/day): No Smoking Education Provided: No Frequency of alcohol use: None Drug Abuse: None Lives with: Family Family History: Reviewed & Not Pertinent, Arthritis, DM, Hypertension, Other - Sickle cell trait both parents and asthma Patient has suicidal ideation: No Patient has homicidal ideation: No - Past Medical History Cardiac Medical History: Reports: None Pulmonary Medical History: Reports: Hx Asthma, Hx Pneumonia EENT Medical History: Reports: None Neurological Medical History: Reports: None Endocrine Medical History: Reports: None Renal/ Medical History: Reports: None Malignancy Medical History: Reports None GI Medical History: Reports: None Musculoskeletal Medical History: Reports Hx Musculoskeletal Deformity - Pain to multiple areas mostly right knee due to sickle cell anemia Skin Medical History: Reports None Psychiatric Medical History: Reports: None Traumatic Medical History: Reports: None Infectious Medical History: Reports: None Past Surgical History: Reports: Hx Abdominal Surgery - Gallstones removal, Hx Cholecystectomy, Hx Orthopedic Surgery - Fluid drained from right foot, Hx Vascular Surgery - Port placement - Immunizations Immunizations up to date: Yes Hx Diphtheria, Pertussis, Tetanus Vaccination: Yes Hx Pneumococcal Vaccination: 01/15/13 Review of Systems - Review of Systems Constitutional: No symptoms reported EENT: No symptoms reported Cardiovascular: Chest pain - Due to sickle cell Respiratory: No symptoms reported Gastrointestinal: No symptoms reported Genitourinary: No symptoms reported Male Genitourinary: No symptoms reported Musculoskeletal: Other - Right knee pain due to sickle cell Skin: No symptoms reported Hematologic/Lymphatic: No symptoms reported Neurological/Psychological: No symptoms reported -: Yes All other systems reviewed and negative Physical Exam - Vital signs Vitals: Temp Pulse Resp BP Pulse Ox 99.2 F 113 H 20 128/72 H 97 06/17/18 13:53 06/17/18 13:53 06/17/18 13:53 06/17/18 13:53 06/17/18 13:53 Interpretation: Normal - General General appearance: Appears well, Alert - HEENT Head: Normocephalic, Atraumatic Eyes: Normal Pupils: PERRL - Respiratory Respiratory status: No respiratory distress Chest status: Tender - Chest tenderness due to sickle cell Breath sounds: Normal Chest palpation: Normal - Cardiovascular Rhythm: Regular Heart sounds: Normal auscultation Murmur: No - Abdominal Inspection: Normal Distension: No distension Bowel sounds: Normal Tenderness: Nontender Organomegaly: No organomegaly - Back Back: Normal, Nontender - Extremities General upper extremity: Normal inspection, Nontender, Normal color, Normal ROM , Normal temperature General lower extremity: Normal color, Normal ROM, Normal temperature, Normal weight bearing. No: Jeannine's sign Knee: Tender - Right knee, Pain with ROM, Patellar tendon intact, Tender joint line. No: Abrasion, Deformity, Dislocation, Drawer's test instability, Ecchymosis, Instability, Joint effusion, Laceration, Laxity with valgus stress, Popliteal fossa tender, Unable to bear weight - Neurological Neuro grossly intact: Yes Cognition: Normal Orientation: AAOx4 Rodo Coma Scale Eye Opening: Spontaneous Dixon Coma Scale Verbal: Oriented Dixon Coma Scale Motor: Obeys Commands Rodo Coma Scale Total: 15 Speech: Normal Motor strength normal: LUE, RUE, LLE, RLE Sensory: Normal - Psychological Associated symptoms: Normal affect, Normal mood - Skin Skin Temperature: Warm Skin Moisture: Dry Skin Color: Normal Course - Re-evaluation Re-evalutation: 06/17/18 20:12 Labs and x-ray discussed with patient. Patient was treated with IV fluids Dilaudid I half milligram x2. A written report of all the labs and x-ray given to patient to follow-up with his relationship consultant. He states he is going to have bone marrow transplant July 03. States is post to go to [place] get chemotherapy on 25 June and go before that and get a port inserted. Patient states that [place] told him to come to the emergency room to get checked out because he was having chest pain with his sickle cell crisis. Patient has chest pain frequently with his sickle cell crisis. Patient was discharged home with all lab work reports chest x-ray report and a copy of his EKGs. - Vital Signs Vital signs: Temp Pulse Resp BP Pulse Ox 98.4 F 100 20 131/79 H 94 06/17/18 17:23 06/17/18 17:23 06/17/18 17:23 06/17/18 17:23 06/17/18 17:23 - Laboratory Result Diagrams: 06/17/18 15:05 06/17/18 16:10 Laboratory results interpreted by me: 06/17/18 06/17/18 06/17/18 15:05 15:05 16:10 RBC 2.54 L Hgb 8.9 L Hct 24.8 L MCV 98 H MCH 35.1 H RDW 34.0 H Retic Count (auto) 14.74 H Absolute Retic 0.375 H Chloride 109 H BUN 6 L Total Bilirubin 3.6 H Direct Bilirubin 0.9 H AST 61 H ALT 20 L Urine Protein 100 H Urine Blood SMALL H Urine Urobilinogen 4.0 H - Diagnostic Test Radiology reviewed: Image reviewed, Reports reviewed Discharge - Discharge Clinical Impression: Sickle cell pain crisis Chest pain Qualifiers: Chest pain type: other chest pain Qualified Code(s): R07.89 - Other chest pain Right knee pain Qualifiers: Chronicity: chronic Qualified Code(s): M25.561 - Pain in right knee Condition: Stable Disposition: HOME, SELF-CARE Additional Instructions: Sickle Cell Crisis You have "sickle cell crisis." Sickle cell disease is caused by abnormal hemoglobin. This hemoglobin can deform red blood cells into a sickle shape. These abnormal blood cells can block blood vessels. This causes the pain of sickle cell crisis. Sickle cell crisis can occur any time. But attacks are more likely with acute infection, dehydration, or altitude change. A crisis usually causes pain in the legs, back, abdomen, and chest. Sometimes the pain may ease and return later. The usual treatment is oxygen, pain medication, IV fluids, and treatment of infection. Attacks may take a couple of days to resolve. Return if the pain becomes more severe, or if there are new symptoms. Ibuprofen Ibuprofen is an excellent, safe drug for pain control. In addition, it has potent antiinflammatory effects which are beneficial, especially in the treatment of injuries, arthritis, or tendonitis. It's best to take ibuprofen with food. Persons with ulcer disease or allergy to aspirin should notify their physician of this before taking ibuprofen. Take the medication exactly as prescribed. Don't take additional doses unless instructed to do so by your doctor. If you develop wheezing, shortness of breath, hives, faintness, stomach pain, vomiting, or dark black stools, return for re-evaluation at once. Pain Medication Injection You have received an injection of a pain medication. You should experience significant pain relief within 45 minutes. This drug is a narcotic - - it will impair your judgement, slow your reaction time and make you sleepy ( as well as relieve your pain). Narcotics also can cause nausea. You should not drive, work with machinery, or perform any task requiring mental alertness until all effects of the medication are gone -- six to eight hours. Do not take any alcohol, or sedatives, and do not take any other medication without checking with your physician. I have given you a copy of all your lab results and chest x-ray result. I have also given you a copy of the last week's lab results to take to your doctor at [place]. You states you are going to [place] for a port insertion and then on the you will be getting chemo and on July 03 you will be getting a bone marrow transplant. Please take all this with you to these appointments so that you are doctor can see how you have been doing. Please follow-up with your local primary doctor for any tenured pain medication until you go to [place]. FOLLOW-UP CARE: If you have been referred to a physician for follow-up care, call the physician s office for an appointment as you were instructed or within the next two days. If you experience worsening or a significant change in your symptoms, notify the physician immediately or return to the Emergency Department at any time for re-evaluation. Forms: Elevated Blood Pressure Referrals: ANDREW WILLIS MD [Primary Care Provider] - Follow up as needed
[2018-06-17 15:43] LABS: ABSOLUTE RETICS # 0.375 10^6/uL (0.028-0.122); HEMATOCRIT 24.8 % (37.9-51.0); HEMOGLOBIN 8.9 g/dL (13.5-17.0); MEAN CORPUSCULAR HEMOGLOBIN 35.1 pg (27.0-33.4); MEAN CORPUSCULAR VOLUME 98 fl (80-97); PLATELET COUNT 308 10^3/uL (150-450); RED BLOOD COUNT 2.54 10^6/uL (4.35-5.55); RETICULOCYTE COUNT (AUTO) 14.74 % (0.66-2.85); WHITE BLOOD COUNT 6.1 10^3/uL (4.0-10.5)
[2018-06-17 15:53] LABS: APPEARANCE,URINE SLIGHTLY-CLOUDY; BILIRUBIN,URINE NEGATIVE (NEGATIVE); COLOR,URINE AMBER; GLUCOSE, URINE NEGATIVE (NEGATIVE); KETONES,URINE NEGATIVE (NEGATIVE); LEUKOCYTE ESTERASE,URINE NEGATIVE (NEGATIVE); NITRITE,URINE NEGATIVE (NEGATIVE); PROTEIN,URINE 100 mg/dL (NEGATIVE); URINE SPECIFIC GRAVITY 1.013
--- NOTE | 2018-06-17 16:08 | RADIOLOGY REPORT (SQ) ---
EXAM DESCRIPTION: CHEST 2 VIEWS COMPLETED DATE/TIME: 06/17/2018 3:50 pm REASON FOR STUDY: chest pain COMPARISON: 05/09/2018 EXAM PARAMETERS: NUMBER OF VIEWS: two views TECHNIQUE: Digital Frontal and Lateral radiographic views of the chest acquired. RADIATION DOSE: NA LIMITATIONS: none FINDINGS: LUNGS AND PLEURA: No opacities, masses or pneumothorax. No pleural effusion. MEDIASTINUM AND HILAR STRUCTURES: No masses or contour abnormalities. HEART AND VASCULAR STRUCTURES: Heart normal size. No evidence for failure. BONES: Unchanged in appearance. HARDWARE: None in the chest. OTHER: No other significant finding. IMPRESSION: NO ACUTE RADIOGRAPHIC FINDING IN THE CHEST. TECHNICAL DOCUMENTATION: JOB ID: [id number] [employer]- All Rights Reserved Reading location - IP/workstation name: [email or web address]
--- NOTE | 2018-06-17 16:09 | ER Document Report ---
Doctor's Note Notes: Patient seen and examined, need for peripheral access, patient is often a difficult stick for nursing staff, PROCEDURE: Patient was prepped with ChloraPrep and alcohol, tourniquet placed Ultrasound-guided peripheral IV after identifying a vessel under ultrasound, was placed in the patient's right upper arm, good blood return, labs obtained, tourniquet removed, and good flush, patient tolerated well.
[2018-06-17 16:24] LABS: ABSOLUTE LYMPHOCYTES# (MANUAL) 2.4 10^3/uL (0.5-4.7); ABSOLUTE MONOCYTES # (MANUAL) 0.8 10^3/uL (0.1-1.4); ABSOLUTE NEUTROPHILS# (MANUAL) 2.7 10^3/uL (1.7-8.2); BASOPHILS % (MANUAL) 1 % (0-2); EOSINOPHILS % (MANUAL) 3 % (0-6); LYMPHOCYTES % (MANUAL) 39 % (13-45); MONOCYTES % (MANUAL) 13 % (3-13); NUCLEATED RED BLOOD CELLS 50 /100 WBC (0); SEGMENTED NEUTROPHILS % (MAN) 44 % (42-78); TOTAL CELLS COUNTED 100
[2018-06-17 16:26] LABS: ANISOCYTOSIS 4+; PLATELET COMMENT ADEQUATE; POIKILOCYTOSIS 2+; POLYCHROMASIA SLIGHT; SICKLE RED CELLS 3+; TARGET CELLS 1+; TOXIC GRANULATION SLIGHT
[2018-06-17 16:41] LABS: ALANINE AMINOTRANSFERASE 20 U/L (21-72); ALBUMIN 4.1 g/dL (3.5-5.0); ALKALINE PHOSPHATASE 99 U/L (38-126); ANION GAP 9 (5-19); ASPARTATE AMINO TRANSFERASE 61 U/L (17-59); BILIRUBIN,DIRECT 0.9 mg/dL (0.0-0.4); BILIRUBIN,TOTAL 3.6 mg/dL (0.2-1.3); BLOOD UREA NITROGEN 6 mg/dL (7-20); CALCIUM 9.2 mg/dL (8.4-10.2); CARBON DIOXIDE 27 mmol/L (22-30); CHLORIDE 109 mmol/L (98-107); GLUCOSE 109 mg/dL (75-110); POTASSIUM 4.4 mmol/L (3.6-5.0); TOTAL PROTEIN 7.7 g/dL (6.3-8.2)
[2018-06-17 17:24] VITALS: BP 131/79
--- NOTE | 2018-06-17 18:26 | EKG REPORT ---
SEVERITY:- BORDERLINE ECG - SINUS TACHYCARDIA BORDERLINE T WAVE ABNORMALITIES : Confirmed by: Howard Min MD 17-Jun-2018 18:25:58
== END 2018-06-17 17:57 | disposition home or self-care (01) ==
LOC: ER 13:45
DX: D57.00 Hb-SS disease with crisis, unspecified (principal); M25.561 Pain in right knee; R07.89 Other chest pain; J45.909 Unspecified asthma, uncomplicated; Z91.018 Allergy to other foods; Z88.8 Allergy status to other drugs, medicaments and biological substances
CPT/HCPCS: 93005; 96376; 99284; 96361; 96374; 36415; 85025; 85045; 80053; 81001; 84484; 71046; 93010; J1170; J7030

== ENCOUNTER 2018-06-21 18:05 | Emergency (ER) | payer MEDICAID ==
[2018-06-21] MEDS ORDERED: HYDROMORPHONE HCL INJ/PF 2 MG/ML AMPULE IV ONE (18:48)
[2018-06-21] MEDS ORDERED: DIPHENHYDRAMINE HCL 50 MG/ML VIAL IV ONE (18:48)
[2018-06-21] MEDS ORDERED: NORMAL SALINE 1000 ML 1,000 ML IV ONE (18:48)
--- NOTE | 2018-06-21 18:49 | ER Document Report ---
ED Medical Screen (RME) - General Chief Complaint: Knee Pain Stated Complaint: KNEE PAIN Time Seen by Provider: 06/21/18 18:47 TRAVEL OUTSIDE OF THE [place] IN LAST 30 DAYS: No - HPI Notes: 06/21/18 18:49 Knee pain consistent with sickle cell crisis in the past coming in his legs pain medication 15 mg of oxycodone at 1400 hrs. no improvement of pain states normally it starts off with 1.5 mg of Dilaudid followed by Benadryl. 06/21/18 18:49 Denies any other symptoms - Related Data Allergies/Adverse Reactions: Coconut * [Coconut] Allergy (Mild, Verified 06/04/18 18:27) transpore tape Allergy (Mild, Uncoded 06/04/18 18:27) Hives Past Medical History - Social History Chew tobacco use (# tins/day): No Drug Abuse: None Family history: None Pulmonary Medical History: Reports: Hx Asthma, Hx Pneumonia Renal/ Medical History: Denies: Hx Peritoneal Dialysis Musculoskeltal Medical History: Reports Hx Musculoskeletal Deformity - Pain to multiple areas mostly right knee due to sickle cell anemia Past Surgical History: Reports: Hx Abdominal Surgery - Gallstones removal, Hx Cholecystectomy, Hx Orthopedic Surgery - Fluid drained from right foot, Hx Vascular Surgery - Port placement - Immunizations Immunizations up to date: Yes Hx Diphtheria, Pertussis, Tetanus Vaccination: Yes History of Influenza Vaccine for 06/2017 - 10/2017 Season: Yes Influenza Administration Date for 06/2017 - 10/2017 Season: 06/02/17 Review of Systems - Review of Systems Musculoskeletal: Other - Knee pain Physical Exam - Vital signs Vitals: Temp Pulse Resp BP Pulse Ox 98.7 F 111 H 24 H 131/85 H 95 06/21/18 18:19 06/21/18 18:19 06/21/18 18:19 06/21/18 18:19 06/21/18 18:19 - Respiratory Respiratory status: No respiratory distress Chest status: Nontender Breath sounds: Normal Chest palpation: Normal - Cardiovascular Rhythm: Regular, Tachycardia Course - Vital Signs Vital signs: Temp Pulse Resp BP Pulse Ox 98.7 F 111 H 24 H 131/85 H 95 06/21/18 18:19 06/21/18 18:19 06/21/18 18:19 06/21/18 18:19 06/21/18 18:19 Doctor's Discharge - Discharge Referrals: ANDREW WILLIS MD [Primary Care Provider] - Follow up as needed
[2018-06-21 19:53] LABS: ABSOLUTE RETICS # 0.409 10^6/uL (0.028-0.122); HEMATOCRIT 27.5 % (37.9-51.0); HEMOGLOBIN 9.9 g/dL (13.5-17.0); MEAN CORPUSCULAR HEMOGLOBIN 36.4 pg (27.0-33.4); MEAN CORPUSCULAR HGB CONC 36.2 g/dL (32.0-36.0); MEAN CORPUSCULAR VOLUME 100 fl (80-97); PLATELET COUNT 256 10^3/uL (150-450); RED BLOOD COUNT 2.73 10^6/uL (4.35-5.55); RETICULOCYTE COUNT (AUTO) 14.94 % (0.66-2.85)
[2018-06-21] MEDS: HYDROMORPHONE HCL INJ/PF 2 MG/ML AMPULE IV PRN ×3 (20:06→23:05)
[2018-06-21 20:19] LABS: ABSOLUTE LYMPHOCYTES# (MANUAL) 3.5 10^3/uL (0.5-4.7); ABSOLUTE MONOCYTES # (MANUAL) 0.2 10^3/uL (0.1-1.4); ABSOLUTE NEUTROPHILS# (MANUAL) 4.8 10^3/uL (1.7-8.2); BAND NEUTROPHILS % (MANUAL) 2 % (3-5); BASOPHILS % (MANUAL) 0 % (0-2); EOSINOPHILS % (MANUAL) 3 % (0-6); LYMPHOCYTES % (MANUAL) 40 % (13-45); MONOCYTES % (MANUAL) 2 % (3-13); NUCLEATED RED BLOOD CELLS 25 /100 WBC (0); SEGMENTED NEUTROPHILS % (MAN) 53 % (42-78); TOTAL CELLS COUNTED 100
[2018-06-21 20:20] LABS: ANISOCYTOSIS 4+; PLATELET COMMENT ADEQUATE; POLYCHROMASIA 2+; SICKLE RED CELLS 3+; TEAR DROP CELLS SLIGHT
[2018-06-21 20:32] LABS: WHITE BLOOD COUNT 9.1 10^3/uL (4.0-10.5)
[2018-06-21] MEDS ORDERED: ONDANSETRON HCL INJ/PF 4 MG/2 ML SDV IV ONE (20:41)
--- NOTE | 2018-06-21 20:44 | ER Document Report ---
ED General - General Chief Complaint: Knee Pain Stated Complaint: KNEE PAIN Time Seen by Provider: 06/21/18 18:47 Notes: Patient is a 22-year-old female with a past medical history of sickle cell anemia who presents with a sickle cell crisis. He states the pain is located in his right knee and is a throbbing, dull, constant pain. He has tried oxycodone at home with minimal improvement. Nothing worsens the pain. States this is identical to previous exacerbations that he has had in the past. He denies any fever, shortness of breath, vomiting. He has not contacted his general doctor regarding today's concerns. TRAVEL OUTSIDE OF THE [place] IN LAST 30 DAYS: No - Related Data Allergies/Adverse Reactions: Coconut * [Coconut] Allergy (Mild, Verified 06/04/18 18:27) transpore tape Allergy (Mild, Uncoded 06/04/18 18:27) Hives Past Medical History - General Information source: Patient - Social History Smoking Status: Never Smoker Chew tobacco use (# tins/day): No Frequency of alcohol use: None Drug Abuse: None Lives with: Spouse/Significant other Family History: Reviewed & Not Pertinent, Arthritis, DM, Hypertension, Other - Sickle cell trait both parents and asthma Patient has suicidal ideation: No Patient has homicidal ideation: No Pulmonary Medical History: Reports: Hx Asthma, Hx Pneumonia Renal/ Medical History: Denies: Hx Peritoneal Dialysis Musculoskeletal Medical History: Reports Hx Musculoskeletal Deformity - Pain to multiple areas mostly right knee due to sickle cell anemia Past Surgical History: Reports: Hx Abdominal Surgery - Gallstones removal, Hx Cholecystectomy, Hx Orthopedic Surgery - Fluid drained from right foot, Hx Vascular Surgery - Port placement - Immunizations Immunizations up to date: Yes Hx Diphtheria, Pertussis, Tetanus Vaccination: Yes Hx Pneumococcal Vaccination: 01/15/13 Review of Systems - Review of Systems Notes: Constitutional: Negative for fever. HENT: Negative for sore throat. Eyes: Negative for visual changes. Cardiovascular: Negative for chest pain. Respiratory: Negative for shortness of breath. Gastrointestinal: Negative for abdominal pain, vomiting or diarrhea. Genitourinary: Negative for dysuria. Musculoskeletal: Positive for right knee pain Skin: Negative for rash. Neurological: Negative for headaches, weakness or numbness. 10 point ROS negative except as marked above and in HPI. Physical Exam - Vital signs Vitals: Temp Pulse Resp BP Pulse Ox 98.7 F 111 H 24 H 131/85 H 95 06/21/18 18:19 06/21/18 18:19 06/21/18 18:19 06/21/18 18:19 06/21/18 18:19 Interpretation: Tachycardic Notes: PHYSICAL EXAMINATION: GENERAL: Well-appearing, well-nourished and in no acute distress. HEAD: Atraumatic, normocephalic. EYES: Pupils equal round and reactive to light, extraocular movements intact, sclera anicteric, conjunctiva are normal. ENT: nares patent, oropharynx clear without exudates. Moist mucous membranes. NECK: Normal range of motion, supple without lymphadenopathy LUNGS: Breath sounds clear to auscultation bilaterally and equal. No wheezes rales or rhonchi. HEART: Regular rate and rhythm without murmurs ABDOMEN: Soft, nontender, normoactive bowel sounds. No guarding, no rebound. No masses appreciated. EXTREMITIES: Normal range of motion, no pitting or edema. No cyanosis. NEUROLOGICAL: No focal neurological deficits. Moves all extremities spontaneously and on command. PSYCH: Normal mood, normal affect. SKIN: Warm, Dry, normal turgor, no rashes or lesions noted. Course - Re-evaluation Re-evalutation: 06/21/18 20:44 Presentation is most consistent with an uncomplicated sickle cell pain crisis. Patient has no evidence of an aplastic crisis on labs. History and vitals are not consistent with acute chest syndrome. Vitals have remained within normal limits here in the emergency department. Patient's pain has been able to be controlled using IV analgesia. The patient is agreeable to discharge home at this time. I recommended that they follow closely with their primary collection manager. Return precautions have been reviewed and discussed and patient has verbalized indications to return to the emergency department. - Vital Signs Vital signs: Temp Pulse Resp BP Pulse Ox 97.9 F 129 H 24 H 133/79 H 93 06/21/18 23:19 06/21/18 23:19 06/21/18 18:19 06/21/18 23:19 06/21/18 23:19 - Laboratory Result Diagrams: 06/21/18 19:40 06/21/18 20:30 Laboratory results interpreted by me: 06/21/18 19:40 RBC 2.73 L Hgb 9.9 L Hct 27.5 L MCV 100 H MCH 36.4 H MCHC 36.2 H RDW 31.0 H Band Neutrophils % 2 L Monocytes % (Manual) 2 L Retic Count (auto) 14.94 H Absolute Retic 0.409 H Discharge - Discharge Clinical Impression: Sickle cell crisis Right knee pain Qualifiers: Chronicity: chronic Qualified Code(s): M25.561 - Pain in right knee Sickle cell anemia Qualifiers: Sickle-cell associated disorders: with unspecified crisis Qualified Code(s): D57.00 - Hb-SS disease with crisis, unspecified Condition: Good Disposition: HOME, SELF-CARE Additional Instructions: You were seen today for sickle cell pain crisis. Please follow-up with your collection manager. Returning to the ED if you have worsening pain, fever greater than 100.4, shortness of breath, persistent vomiting, or any other symptoms that are concerning to you. Referrals: ANDREW WILLIS MD [Primary Care Provider] - Follow up as needed
[2018-06-21 21:04] LABS: ANION GAP 11 (5-19); BLOOD UREA NITROGEN 16 mg/dL (7-20); CALCIUM 9.4 mg/dL (8.4-10.2); CARBON DIOXIDE 25 mmol/L (22-30); CHLORIDE 106 mmol/L (98-107); GLUCOSE 101 mg/dL (75-110); SODIUM 142.4 mmol/L (137-145)
[2018-06-21 23:28] VITALS: BP 133/79
== END 2018-06-21 23:28 | disposition home or self-care (01) ==
LOC: ER 18:05
DX: D57.00 Hb-SS disease with crisis, unspecified (principal); M25.561 Pain in right knee; Z90.49 Acquired absence of other specified parts of digestive tract
CPT/HCPCS: 96376; 99283; 96374; 96375; 36415; 85025; 85045; 80048; J1170; J2405

== ENCOUNTER 2018-10-18 16:32 | Emergency (ER) | payer MEDICAID ==
[2018-10-18 16:39] VITALS: BP 120/80
--- NOTE | 2018-10-18 17:08 | ER Document Report ---
ED Medical Screen (RME) - General Chief Complaint: Arm Problem Stated Complaint: LEFT ARM PAIN Time Seen by Provider: 10/18/18 16:50 Primary Care Provider: ANDREW WILLIS MD [Primary Care Provider] - Follow up as needed Mode of Arrival: Ambulatory Information source: Patient Notes: This is a pleasant 23-year-old gentleman who presents with concerns for swelling of the left arm. There is been no fever, chest pain or shortness of breath. 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 He is currently getting immunosuppressants via a left upper extremity PICC line. Patient had gone to the [employer] with his fiance and did have his arm around his fiance. After the movies, the fianc noticed that his arm was swollen. His reiterates that there was swelling of the arm. They had called the bone marrow transplant nurse who told them to come the emergency room. TRAVEL OUTSIDE OF THE [place] IN LAST 30 DAYS: No - HPI Onset: Just prior to arrival Onset/Duration: Sudden Quality of pain: No pain Severity: None Pain Level: Denies Associated Symptoms: denies: Chest pain, Shortness of breath Exacerbated by: Denies Relieved by: Denies Similar symptoms previously: No Recently seen / treated by doctor: No - Related Data Smoking: Non-smoker Frequency of alcohol use: None Drug Abuse: None Allergies/Adverse Reactions: Coconut * [Coconut] Allergy (Mild, Verified 06/04/18 18:27) apixaban [From Eliquis] Allergy (Verified 10/18/18 16:34) rivaroxaban [From Xarelto] Allergy (Verified 10/18/18 16:34) transpore tape Allergy (Mild, Uncoded 06/04/18 18:27) Hives Past Medical History - General Information source: Patient - Social History Cigarette use (# per day): No Chew tobacco use (# tins/day): No Frequency of alcohol use: None Drug Abuse: None Lives with: Family Family history: None Pulmonary Medical History: Reports: Hx Asthma, Hx Pneumonia Renal/ Medical History: Denies: Hx Peritoneal Dialysis Malignancy Medical History: Reports Other - Sickle cell disease status post bone marrow transplant Musculoskeltal Medical History: Reports Hx Musculoskeletal Deformity - Pain to multiple areas mostly right knee due to sickle cell anemia Past Surgical History: Reports: Hx Abdominal Surgery - Gallstones removal, Hx Cholecystectomy, Hx Orthopedic Surgery - Fluid drained from right foot, Hx Vascular Surgery - Port placement - Immunizations Immunizations up to date: Yes Hx Diphtheria, Pertussis, Tetanus Vaccination: Yes History of Influenza Vaccine for 06/2017 - 10/2017 Season: Yes Influenza Administration Date for 06/2017 - 10/2017 Season: 06/02/17 Review of Systems - Review of Systems Constitutional: denies: Chills, Fever EENT: No symptoms reported Cardiovascular: denies: Chest pain, Palpitations, Heart racing Respiratory: denies: Cough, Short of breath, Wheezing Gastrointestinal: No symptoms reported Genitourinary: No symptoms reported Musculoskeletal: See HPI Skin: See HPI Physical Exam - Vital signs Vitals: Temp Pulse Resp BP Pulse Ox 99.2 F 121 H 14 120/80 100 10/18/18 16:38 10/18/18 16:38 10/18/18 16:38 10/18/18 16:38 10/18/18 16:38 Notes: Physical exam: GENERAL: 23-year-old man, alert and oriented x3, no acute distress HEAD: Atraumatic, normocephalic. EYES: Pupils equal round and reactive to light, extraocular movements intact, sclera anicteric, conjunctiva are normal. ENT: TMs normal, nares patent, oropharynx clear without exudates. Moist mucous membranes. NECK: Normal range of motion, supple without obvious mass or JVD. LUNGS: Breath sounds clear to auscultation bilaterally and equal. No wheezes rales or rhonchi. HEART: Regular rate and rhythm without murmurs, rubs or gallops. ABDOMEN: Soft, normoactive bowel sounds. No tenderness to palpation. No guarding, no rebound. No masses appreciated. EXTREMITIES: Patient has a PICC line in the left upper extremity. Distal pulses good. There is no swelling of the extremity. There is no erythema or warmth. Patient has no tenderness around the PICC line. As per the patient's mother who is at the bedside, the swelling is gone down. NEUROLOGICAL: Cranial nerves II through XII grossly intact. Normal speech, moving all extremities. PSYCH: Normal mood, normal affect. SKIN: Warm, Dry, normal turgor, no rashes or lesions noted. The PICC line site is dry and intact and there is no discharge, there is no overlying cellulitis or tenderness. Course - Re-evaluation Re-evalutation: 10/18/18 17:14 I did speak to Dr. Escobar at the transplant center in [place]. I think when the patient had his arm around his fiance it caused some venous backflow in the arm causing it to be swelling. And since that time from when they left the movies till now, the swelling is gone down. He has had no chest pain or shortness of breath. There is no discernible swelling at this point. It is unlikely that there is a blood clot. I did discuss with Dr. Escobar and he is fine with following up with the patient tomorrow. In the meantime, I told the patient and his mother that if there is any further swelling or any concerns, to return for repeat evaluation (i.e. upper extremity ultrasound). - Vital Signs Vital signs: Temp Pulse Resp BP Pulse Ox 99.2 F 121 H 14 120/80 100 10/18/18 16:38 10/18/18 16:38 10/18/18 16:38 10/18/18 16:38 10/18/18 16:38 Doctor's Discharge - Discharge Clinical Impression: Left arm swelling transient Condition: Stable Disposition: HOME, SELF-CARE Additional Instructions: Follow-up with Dr. Escobar tomorrow. If you have any concerns regarding swelling, fever, redness or any chest pain or shortness of breath: Return to the emergency room. Referrals: ANDREW WILLIS MD [Primary Care Provider] - Follow up as needed
== END 2018-10-18 17:10 | disposition home or self-care (01) ==
LOC: ER 16:32
DX: M79.89 Other specified soft tissue disorders (principal); M79.602 Pain in left arm; Z94.81 Bone marrow transplant status; J45.909 Unspecified asthma, uncomplicated
CPT/HCPCS: 99283

== ENCOUNTER 2019-06-13 20:11 | Emergency (ER) | payer MEDICAID ==
[2019-06-13] MEDS ORDERED: DIPHENHYDRAMINE HCL 50 MG/ML VIAL IV ONE ×2 (20:25→22:18)
[2019-06-13] MEDS ORDERED: ONDANSETRON HCL INJ/PF 4 MG/2 ML SDV IV ONE (20:25)
--- NOTE | 2019-06-13 20:28 | ER Document Report ---
ED Medical Screen (RME) - General Chief Complaint: Chest Pain Stated Complaint: CHEST PAIN Primary Care Provider: ANDREW WILLIS MD [Primary Care Provider] - Follow up as needed TRAVEL OUTSIDE OF THE [place] IN LAST 30 DAYS: No - HPI Notes: 06/13/19 20:26 Patient is a 23-year-old male well-known to this emergency department with a history of sickle cell status post bone marrow transplant who presents complaining of sternal chest pain that started today. Patient states that it is worse with deep breathing. He has had issues like this in the past. Patient believes any is having another sickle crisis. He has not had any fever, cough, or shortness of breath otherwise. Pain does not radiate. I have treated and performed a rapid initial assessment of this patient. A comprehensive ED assessment and evaluation of the patient, analysis of test results and completion of medical decision making process will be conducted by additional ED providers. PHYSICAL EXAMINATION: GENERAL: Well-appearing, well-nourished and in no acute distress. A&Ox4. Answers questions appropriately. Lungs: CTAB Cardiac: RRR - Related Data Allergies/Adverse Reactions: Coconut * [Coconut] Allergy (Mild, Verified 06/04/18 18:27) apixaban [From Eliquis] Allergy (Verified 10/18/18 16:34) rivaroxaban [From Xarelto] Allergy (Verified 10/18/18 16:34) transpore tape Allergy (Mild, Uncoded 06/04/18 18:27) Hives Past Medical History - Social History Family history: None Pulmonary Medical History: Reports: Hx Asthma, Hx Pneumonia Renal/ Medical History: Denies: Hx Peritoneal Dialysis Musculoskeltal Medical History: Reports Hx Musculoskeletal Deformity - Pain to multiple areas mostly right knee due to sickle cell anemia Past Surgical History: Reports: Hx Abdominal Surgery - Gallstones removal, Hx Cholecystectomy, Hx Orthopedic Surgery - Fluid drained from right foot, Hx Vascular Surgery - Port placement - Immunizations Immunizations up to date: Yes Hx Diphtheria, Pertussis, Tetanus Vaccination: Yes Physical Exam - Vital signs Vitals: Temp Pulse BP Pulse Ox 99.1 F 115 H 126/86 H 98 06/13/19 20:21 06/13/19 20:21 06/13/19 20:21 06/13/19 20:21 Course - Vital Signs Vital signs: Temp Pulse Resp BP Pulse Ox 99.1 F 115 H 126/86 H 98 06/13/19 20:21 06/13/19 20:21 06/13/19 20:21 06/13/19 20:21 Doctor's Discharge - Discharge Referrals: ANDREW WILLIS MD [Primary Care Provider] - Follow up as needed
[2019-06-13] MEDS: HYDROMORPHONE HCL INJ/PF 2 MG/ML AMPULE IV PRN ×2 (21:02→22:42)
[2019-06-13] MEDS: NORMAL SALINE 1000 ML 1,000 ML IV PRN ×2 (21:03→22:43)
[2019-06-13 21:08] LABS: ABSOLUTE RETICS # 0.055 10^6/uL (0.028-0.122); HEMATOCRIT 44.5 % (37.9-51.0); MEAN CORPUSCULAR HEMOGLOBIN 35.4 pg (27.0-33.4); MEAN CORPUSCULAR HGB CONC 33.7 g/dL (32.0-36.0); MEAN CORPUSCULAR VOLUME 105 fl (80-97); PLATELET COUNT 315 10^3/uL (150-450); RED BLOOD COUNT 4.24 10^6/uL (4.35-5.55); RED CELL DISTRIBUTION WIDTH 18.7 % (11.5-14.0); RETICULOCYTE COUNT (AUTO) 1.29 % (0.66-2.85); WHITE BLOOD COUNT 6.4 10^3/uL (4.0-10.5)
--- NOTE | 2019-06-13 21:24 | EKG REPORT ---
SEVERITY:- BORDERLINE ECG - SINUS TACHYCARDIA LA ABNORMALITY : Confirmed by: Howard Min MD 13-Jun-2019 21:23:21
[2019-06-13 21:33] LABS: ABSOLUTE LYMPHOCYTES# (MANUAL) 2.2 10^3/uL (0.5-4.7); ABSOLUTE MONOCYTES # (MANUAL) 0.6 10^3/uL (0.1-1.4); ANISOCYTOSIS 1+; BAND NEUTROPHILS % (MANUAL) 2 % (3-5); BASOPHILS % (MANUAL) 0 % (0-2); EOSINOPHILS % (MANUAL) 4 % (0-6); LYMPHOCYTES % (MANUAL) 34 % (13-45); MONOCYTES % (MANUAL) 9 % (3-13); PLATELET COMMENT ADEQUATE; SEGMENTED NEUTROPHILS % (MAN) 51 % (42-78); TOTAL CELLS COUNTED 100
--- NOTE | 2019-06-13 21:33 | RADIOLOGY REPORT (SQ) ---
XR CHEST 2 VIEWS EXAM DATE: 06/13/2019 8:21 PM CDT HISTORY: CP, sickle cell. COMPARISON: 06/17/2018 FINDINGS: The heart size is within normal limits. No consolidation, pleural effusion, or pneumothorax is seen. Mildly increased sclerosis of the visualized bones, nonspecific. IMPRESSION: No evidence of acute cardiopulmonary disease.
[2019-06-13 22:04] LABS: ALBUMIN 4.8 g/dL (3.5-5.0); ALKALINE PHOSPHATASE 183 U/L (38-126); ANION GAP 9 (5-19); ASPARTATE AMINO TRANSFERASE 55 U/L (17-59); BILIRUBIN,DIRECT 0.3 mg/dL (0.0-0.4); BILIRUBIN,TOTAL 0.6 mg/dL (0.2-1.3); BLOOD UREA NITROGEN 16 mg/dL (7-20); CALCIUM 9.5 mg/dL (8.4-10.2); CARBON DIOXIDE 27 mmol/L (22-30); CHLORIDE 104 mmol/L (98-107); GLUCOSE 106 mg/dL (75-110); POTASSIUM 4.9 mmol/L (3.6-5.0)
[2019-06-14] MEDS: HYDROMORPHONE HCL INJ/PF 2 MG/ML AMPULE IV PRN (01:17)
--- NOTE | 2019-06-14 01:40 | ER Document Report ---
ED General Pain - General Chief Complaint: Sickle Cell Crisis Stated Complaint: CHEST PAIN Time Seen by Provider: 06/13/19 21:00 Primary Care Provider: ANDREW WILLIS MD [Primary Care Provider] - Follow up as needed Mode of Arrival: Ambulatory Information source: Patient Notes: Patient is a 23-year-old male who is well-known to our facility presenting to the emergency department with chief complaint of chest pain that began this morning. Patient reports history of sickle cell disease, states that he has had a bone marrow transplant done approximately 8 months ago which has significantly helped his symptoms. Patient reports is the first time he has been here in almost a year. He reports that sharp stabbing feeling in the middle of his chest that comes and goes. He denies any shortness of breath. He denies any other pain or complaints. TRAVEL OUTSIDE OF THE [place] IN LAST 30 DAYS: No - Related Data Allergies/Adverse Reactions: Coconut * [Coconut] Allergy (Mild, Verified 06/04/18 18:27) apixaban [From Eliquis] Allergy (Verified 10/18/18 16:34) rivaroxaban [From Xarelto] Allergy (Verified 10/18/18 16:34) transpore tape Allergy (Mild, Uncoded 06/04/18 18:27) Hives Past Medical History - General Information source: Patient - Social History Smoking Status: Never Smoker Family History: Reviewed & Not Pertinent, Arthritis, DM, Hypertension, Other - Sickle cell trait both parents and asthma Patient has suicidal ideation: No Patient has homicidal ideation: No Pulmonary Medical History: Reports: Hx Asthma, Hx Pneumonia Renal/ Medical History: Denies: Hx Peritoneal Dialysis Musculoskeletal Medical History: Reports Hx Musculoskeletal Deformity - Pain to multiple areas mostly right knee due to sickle cell anemia Past Surgical History: Reports: Hx Abdominal Surgery - Gallstones removal, Hx Cholecystectomy, Hx Orthopedic Surgery - Fluid drained from right foot, Hx Vascular Surgery - Port placement - Immunizations Immunizations up to date: Yes Hx Diphtheria, Pertussis, Tetanus Vaccination: Yes Hx Pneumococcal Vaccination: 01/15/13 Review of Systems - Review of Systems Constitutional: No symptoms reported EENT: No symptoms reported Cardiovascular: Chest pain Respiratory: No symptoms reported Gastrointestinal: No symptoms reported Genitourinary: No symptoms reported Male Genitourinary: No symptoms reported Musculoskeletal: No symptoms reported Skin: No symptoms reported Hematologic/Lymphatic: No symptoms reported Neurological/Psychological: No symptoms reported Physical Exam - Vital signs Vitals: Temp Pulse BP Pulse Ox 99.1 F 115 H 126/86 H 98 06/13/19 20:21 06/13/19 20:21 06/13/19 20:21 06/13/19 20:21 - Notes Notes: PHYSICAL EXAMINATION: GENERAL: Well-appearing, well-nourished and in no acute distress. HEAD: Atraumatic, normocephalic. EYES: Pupils equal round and reactive to light, extraocular movements intact, sclera anicteric, conjunctiva are normal. ENT: Nares patent, oropharynx clear without exudates. Moist mucous membranes. NECK: Normal range of motion, supple without lymphadenopathy LUNGS: Breath sounds clear to auscultation bilaterally and equal. No wheezes rales or rhonchi. HEART: Regular rate and rhythm without murmurs ABDOMEN: Soft, nontender, nondistended abdomen. No guarding, no rebound. No masses appreciated. Musculoskeletal: Normal range of motion, no pitting or edema. No cyanosis. NEUROLOGICAL: Cranial nerves grossly intact. Normal speech, normal gait. Normal sensory, motor exams PSYCH: Normal mood, normal affect. SKIN: Warm, Dry, normal turgor, no rashes or lesions noted. Course - Re-evaluation Re-evalutation: Laboratory 06/13/19 06/13/19 06/13/19 20:50 20:50 20:50 WBC 6.4 RBC 4.24 L Hgb 15.0 Hct 44.5 MCV 105 H MCH 35.4 H MCHC 33.7 RDW 18.7 H Plt Count 315 Lymph % (Auto) Not Reportable [place] % (Auto) Not Reportable Eos % (Auto) Not Reportable Baso % (Auto) Not Reportable Reticulocyte # 0.055 Absolute Neuts (auto) Not Reportable Absolute Lymphs (auto) Not Reportable Absolute Monos (auto) Not Reportable Absolute Eos (auto) Not Reportable Absolute Basos (auto) Not Reportable Total Counted 100 Seg Neutrophils % Not Reportable Seg Neuts % (Manual) 51 Band Neutrophils % 2 L Lymphocytes % (Manual) 34 Monocytes % (Manual) 9 Eosinophils % (Manual) 4 Basophils % (Manual) 0 Abs Neuts (Manual) 3.4 Abs Lymphs (Manual) 2.2 Abs Monocytes (Manual) 0.6 Absolute Eos (Manual) 0.3 Abs Basophils (Manual) 0.0 Platelet Comment ADEQUATE Anisocytosis 1+ Macrocytosis 2+ Retic Count (auto) 1.29 Sodium Cancelled Potassium Cancelled Chloride Cancelled Carbon Dioxide Cancelled Anion Gap Cancelled BUN Cancelled Creatinine Cancelled Est GFR ( Amer) Cancelled Est GFR (Non-Af Amer) Cancelled Est GFR (MDRD) Non-Af Cancelled Glucose Cancelled Calcium Cancelled Total Bilirubin Cancelled Direct Bilirubin Cancelled Neonat Total Bilirubin Cancelled Neonat Direct Bilirubin Cancelled Neonat Indirect Bili Cancelled AST Cancelled ALT Cancelled Alkaline Phosphatase Cancelled Troponin I Cancelled Total Protein Cancelled Albumin Cancelled EGFR Cancelled 06/13/19 06/13/19 06/14/19 21:35 21:35 00:55 WBC RBC Hgb Hct MCV MCH MCHC RDW Plt Count Lymph % (Auto) [place] % (Auto) Eos % (Auto) Baso % (Auto) Reticulocyte # Absolute Neuts (auto) Absolute Lymphs (auto) Absolute Monos (auto) Absolute Eos (auto) Absolute Basos (auto) Total Counted Seg Neutrophils % Seg Neuts % (Manual) Band Neutrophils % Lymphocytes % (Manual) Monocytes % (Manual) Eosinophils % (Manual) Basophils % (Manual) Abs Neuts (Manual) Abs Lymphs (Manual) Abs Monocytes (Manual) Absolute Eos (Manual) Abs Basophils (Manual) Platelet Comment Anisocytosis Macrocytosis Retic Count (auto) Sodium 140.1 Potassium 4.9 Chloride 104 Carbon Dioxide 27 Anion Gap 9 BUN 16 Creatinine 0.99 Est GFR ( Amer) > 60 Est GFR (Non-Af Amer) Est GFR (MDRD) Non-Af > 60 Glucose 106 Calcium 9.5 Total Bilirubin 0.6 Direct Bilirubin 0.3 Neonat Total Bilirubin Not Reportable Neonat Direct Bilirubin Not Reportable Neonat Indirect Bili Not Reportable AST 55 ALT 35 Alkaline Phosphatase 183 H Troponin I 0.023 0.018 Total Protein 8.0 Albumin 4.8 EGFR Chest X-Ray 06/13/19 20:21 IMPRESSION: No evidence of acute cardiopulmonary disease. Labs as recorded above. Patient did have mildly elevated troponin of 0.023. He was held over for repeat which did come down to 0.018. His reticulocyte count was within normal limits. He did not have any acute findings on his chest x- ray. He overall appears well and states his pain has improved since being in the emergency department. His EKG showed a sinus rhythm, normal axis, no ST segment elevations or depressions to suggest ischemia and this was unchanged from previous EKG on file. His case was discussed with finding attending physician, Dr. Hopkins who agrees patient can be discharged home since his troponin has come down and he is asymptomatic. ED return precautions were discussed. The patient's emergency department workup and current diagnosis were explained to the patient and or family. Follow-up instructions were provided. Medications if prescribed were discussed. Instructions for when to return to the emergency department including specific worrisome symptoms were discussed with the patient and/or family. - Vital Signs Vital signs: Temp Pulse Resp BP Pulse Ox 97.9 F 115 H 17 119/53 L 98 06/14/19 02:28 06/13/19 20:21 06/14/19 02:00 06/14/19 02:28 06/14/19 02:28 - Laboratory Result Diagrams: 06/13/19 20:50 06/13/19 21:35 Laboratory results interpreted by me: 06/13/19 06/13/19 20:50 21:35 RBC 4.24 L MCV 105 H MCH 35.4 H RDW 18.7 H Band Neutrophils % 2 L Alkaline Phosphatase 183 H Discharge - Discharge Clinical Impression: Chest pain Qualifiers: Chest pain type: unspecified Qualified Code(s): R07.9 - Chest pain, unspecified Condition: Stable Disposition: HOME, SELF-CARE Additional Instructions: Chest Pain of Unclear Cause The exact cause of your chest pain isn't clear. Fortunately, there is no evidence of a dangerous medical condition. Further testing may be required to find the source of the pain. Most often, we find that this pain is coming from the chest wall -- the muscles or rib joints in the chest. But chest pain can come from the lung and lung lining, the esophagus, the heart valves or heart lining, and even the stomach or gallbladder. Rest. Eat lightly until the pain is gone. We may prescribe medicine for pain and inflammation. You should call the physician immediately if the pain radiates to the shoulder, jaw or arms; if you start to run a fever or develop a cough; or if you develop shortness of breath, or other new or alarming symptoms. Please continue taking all medications as prescribed. Follow-up with Dr. Jeffries, call him Saturday morning to schedule an appointment. Referrals: ANDREW WILLIS MD [Primary Care Provider] - Follow up as needed
[2019-06-14 02:29] VITALS: BP 119/53
== END 2019-06-14 02:28 | disposition home or self-care (01) ==
LOC: ER 20:11
DX: R07.9 Chest pain, unspecified (principal); D57.00 Hb-SS disease with crisis, unspecified; J45.909 Unspecified asthma, uncomplicated
CPT/HCPCS: 93005; 36415; 85025; 85045; 80053; 84484; 71046; 93010; J1200; J1170 ×2; J2405; J7030

== ENCOUNTER 2019-06-19 17:01 | Emergency (ER) | payer MEDICAID ==
--- NOTE | 2019-06-19 17:42 | ER Document Report ---
ED Medical Screen (RME) - General Chief Complaint: Knee Pain Stated Complaint: RIGHT KNEE PAIN Time Seen by Provider: 06/19/19 17:40 Primary Care Provider: ANDREW WILLIS MD [Primary Care Provider] - Follow up as needed Mode of Arrival: Ambulatory Information source: Patient Notes: 23-year-old male presents to ED for complaint of right knee pain. He has a sickle cell patient. He does frequently have pain in the right knee from his sickle cell. Patient is alert oriented respirations regular and unlabored. He states he has been taking his Percocet for his knee pain. I have greeted and performed a rapid initial assessment of this patient. A comprehensive ED assessment and evaluation of the patient, analysis of test results and completion of medical decision making process will be conducted by an additional ED providers. TRAVEL OUTSIDE OF THE [place] IN LAST 30 DAYS: No - Related Data Allergies/Adverse Reactions: Coconut * [Coconut] Allergy (Mild, Verified 06/04/18 18:27) apixaban [From Eliquis] Allergy (Verified 10/18/18 16:34) rivaroxaban [From Xarelto] Allergy (Verified 10/18/18 16:34) transpore tape Allergy (Mild, Uncoded 06/04/18 18:27) Hives Home Medications: acyclovire. oxycodone. gabapentin. sirolinus. fluticasone Past Medical History - Social History Frequency of alcohol use: None Drug Abuse: None Family history: None Pulmonary Medical History: Reports: Hx Asthma, Hx Pneumonia Renal/ Medical History: Denies: Hx Peritoneal Dialysis Musculoskeltal Medical History: Reports Hx Musculoskeletal Deformity - Pain to multiple areas mostly right knee due to sickle cell anemia Past Surgical History: Reports: Hx Abdominal Surgery - Gallstones removal, Hx Cholecystectomy, Hx Orthopedic Surgery - Fluid drained from right foot, Hx Vascular Surgery - Port placement - Immunizations Immunizations up to date: Yes Hx Diphtheria, Pertussis, Tetanus Vaccination: Yes Physical Exam - Vital signs Vitals: Temp Pulse Resp BP Pulse Ox 98.4 F 110 H 18 128/90 H 98 06/19/19 17:27 06/19/19 17:27 06/19/19 17:27 06/19/19 17:27 06/19/19 17:27 Course - Vital Signs Vital signs: Temp Pulse Resp BP Pulse Ox 98.4 F 110 H 18 128/90 H 98 06/19/19 17:27 06/19/19 17:27 06/19/19 17:27 06/19/19 17:27 06/19/19 17:27 Doctor's Discharge - Discharge Referrals: ANDREW WILLIS MD [Primary Care Provider] - Follow up as needed
[2019-06-19 19:07] LABS: APPEARANCE,URINE SLIGHTLY-CLOUDY; BILIRUBIN,URINE NEGATIVE (NEGATIVE); COLOR,URINE YELLOW; GLUCOSE, URINE NEGATIVE (NEGATIVE); KETONES,URINE NEGATIVE (NEGATIVE); PROTEIN,URINE 30 mg/dL (NEGATIVE); URINE SPECIFIC GRAVITY 1.014; UROBILINOGEN,URINE NEGATIVE mg/dL (<2.0)
[2019-06-19] MEDS ORDERED: NORMAL SALINE 1000 ML 1,000 ML IV ONE ×2 (22:55)
[2019-06-19] MEDS ORDERED: DIPHENHYDRAMINE HCL 50 MG/ML VIAL IV ONE (23:03)
--- NOTE | 2019-06-19 23:03 | ER Document Report ---
ED General - General Chief Complaint: Knee Pain Stated Complaint: RIGHT KNEE PAIN Time Seen by Provider: 06/19/19 17:40 Primary Care Provider: ANDREW WILLIS MD [Primary Care Provider] - Follow up as needed Mode of Arrival: Ambulatory Notes: Patient is a 23-year-old male with past medical history of sickle cell disease presenting with complaints of right knee pain. Patient reports this is where he usually has pain with a sickle cell crisis. He is very well-known to our facility. He did have a bone marrow transfusion done approximately 6 to 9 months ago and has only recently been having issues with his pain. Patient denies any chest pain. TRAVEL OUTSIDE OF THE [place] IN LAST 30 DAYS: No - Related Data Allergies/Adverse Reactions: Coconut * [Coconut] Allergy (Mild, Verified 06/04/18 18:27) apixaban [From Eliquis] Allergy (Verified 10/18/18 16:34) rivaroxaban [From Xarelto] Allergy (Verified 10/18/18 16:34) transpore tape Allergy (Mild, Uncoded 06/04/18 18:27) Hives Home Medications: acyclovire. oxycodone. gabapentin. sirolinus. fluticasone Past Medical History - General Information source: Patient - Social History Smoking Status: Never Smoker Frequency of alcohol use: None Drug Abuse: None Family History: Reviewed & Not Pertinent, Arthritis, DM, Hypertension, Other - Sickle cell trait both parents and asthma Patient has suicidal ideation: No Patient has homicidal ideation: No Pulmonary Medical History: Reports: Hx Asthma, Hx Pneumonia Renal/ Medical History: Denies: Hx Peritoneal Dialysis Musculoskeletal Medical History: Reports Hx Musculoskeletal Deformity - Pain to multiple areas mostly right knee due to sickle cell anemia Past Surgical History: Reports: Hx Abdominal Surgery - Gallstones removal, Hx Cholecystectomy, Hx Orthopedic Surgery - Fluid drained from right foot, Hx Vascular Surgery - Port placement - Immunizations Immunizations up to date: Yes Hx Diphtheria, Pertussis, Tetanus Vaccination: Yes Hx Pneumococcal Vaccination: 01/15/13 Review of Systems - Review of Systems Constitutional: No symptoms reported EENT: No symptoms reported Cardiovascular: No symptoms reported Respiratory: No symptoms reported Gastrointestinal: No symptoms reported Genitourinary: No symptoms reported Male Genitourinary: No symptoms reported Musculoskeletal: See HPI Skin: No symptoms reported Hematologic/Lymphatic: No symptoms reported Neurological/Psychological: No symptoms reported Physical Exam - Vital signs Vitals: Temp Pulse Resp BP Pulse Ox 98.4 F 110 H 18 128/90 H 98 06/19/19 17:27 06/19/19 17:27 06/19/19 17:27 06/19/19 17:27 06/19/19 17:27 - Notes Notes: PHYSICAL EXAMINATION: GENERAL: Well-appearing, well-nourished and in no acute distress. HEAD: Atraumatic, normocephalic. EYES: Pupils equal round and reactive to light, extraocular movements intact, sclera anicteric, conjunctiva are normal. ENT: Nares patent, oropharynx clear without exudates. Moist mucous membranes. NECK: Normal range of motion, supple without lymphadenopathy LUNGS: Breath sounds clear to auscultation bilaterally and equal. No wheezes rales or rhonchi. HEART: Regular rate and rhythm without murmurs ABDOMEN: Soft, nontender, nondistended abdomen. No guarding, no rebound. No masses appreciated. Musculoskeletal: Normal range of motion, no pitting or edema. No cyanosis. NEUROLOGICAL: Cranial nerves grossly intact. Normal speech, normal gait. Normal sensory, motor exams PSYCH: Normal mood, normal affect. SKIN: Warm, Dry, normal turgor, no rashes or lesions noted. Course - Re-evaluation Re-evalutation: Patient given IV fluid hydration as well as pain medications here in the emergency department and reports that he feels much better. His labs are as outlined below. Hemoglobin is within normal limits, reticulocyte count is also normal. Patient reports he feels well enough to go home, will discharge home plate. Patient will follow up with his primary care provider. Laboratory 06/19/19 06/20/19 06/20/19 18:31 03:15 03:15 WBC 8.1 RBC 4.27 L Hgb 14.8 Hct 44.2 MCV 104 H MCH 34.7 H MCHC 33.5 RDW 17.8 H Plt Count 276 Lymph % (Auto) 25.4 [place] % (Auto) 8.5 Eos % (Auto) 3.9 Baso % (Auto) 1.3 Reticulocyte # 0.051 Absolute Neuts (auto) 4.9 Absolute Lymphs (auto) 2.1 Absolute Monos (auto) 0.7 Absolute Eos (auto) 0.3 Absolute Basos (auto) 0.1 Seg Neutrophils % 60.9 Platelet Comment ADEQUATE Target Cells SLIGHT Schistocytes SLIGHT Retic Count (auto) 1.20 Sodium Cancelled Potassium Cancelled Chloride Cancelled Carbon Dioxide Cancelled Anion Gap Cancelled BUN Cancelled Creatinine Cancelled Est GFR ( Amer) Cancelled Est GFR (Non-Af Amer) Cancelled Est GFR (MDRD) Non-Af Cancelled Glucose Cancelled Calcium Cancelled Total Bilirubin Cancelled Direct Bilirubin Cancelled Neonat Total Bilirubin Cancelled Neonat Direct Bilirubin Cancelled Neonat Indirect Bili Cancelled AST Cancelled ALT Cancelled Alkaline Phosphatase Cancelled Total Protein Cancelled Albumin Cancelled EGFR Cancelled Urine Color YELLOW Urine Appearance SLIGHTLY-CLOUDY Urine pH 7.0 Ur Specific [place] 1.014 Urine Protein 30 H Urine Glucose (UA) NEGATIVE Urine Ketones NEGATIVE Urine Blood NEGATIVE Urine Nitrite (Reflex) NEGATIVE Urine Bilirubin NEGATIVE Urine Urobilinogen NEGATIVE Leukocyte Esterase Rfl NEGATIVE Urine RBC (Auto) 1 Urine WBC (Reflex) 1 Urine Mucus (Auto) RARE Urine Ascorbic Acid 40 H 06/20/19 04:03 WBC RBC Hgb Hct MCV MCH MCHC RDW Plt Count Lymph % (Auto) [place] % (Auto) Eos % (Auto) Baso % (Auto) Reticulocyte # Absolute Neuts (auto) Absolute Lymphs (auto) Absolute Monos (auto) Absolute Eos (auto) Absolute Basos (auto) Seg Neutrophils % Platelet Comment Target Cells Schistocytes Retic Count (auto) Sodium 140.4 Potassium 4.0 Chloride 107 Carbon Dioxide 22 Anion Gap 11 BUN 12 Creatinine 0.81 Est GFR ( Amer) > 60 Est GFR (Non-Af Amer) Est GFR (MDRD) Non-Af > 60 Glucose 111 H Calcium 9.3 Total Bilirubin 0.5 Direct Bilirubin 0.1 Neonat Total Bilirubin Not Reportable Neonat Direct Bilirubin Not Reportable Neonat Indirect Bili Not Reportable AST 42 ALT 26 Alkaline Phosphatase 164 H Total Protein 7.5 Albumin 4.6 EGFR Urine Color Urine Appearance Urine pH Ur Specific [place] Urine Protein Urine Glucose (UA) Urine Ketones Urine Blood Urine Nitrite (Reflex) Urine Bilirubin Urine Urobilinogen Leukocyte Esterase Rfl Urine RBC (Auto) Urine WBC (Reflex) Urine Mucus (Auto) Urine Ascorbic Acid The patient's emergency department workup and current diagnosis were explained to the patient and or family. Follow-up instructions were provided. Medications if prescribed were discussed. Instructions for when to return to the emergency department including specific worrisome symptoms were discussed with the patient and/or family. - Vital Signs Vital signs: Temp Pulse Resp BP Pulse Ox 98.4 F 72 14 148/74 H 98 06/20/19 06:22 06/20/19 06:22 06/20/19 06:22 06/20/19 06:22 06/19/19 17:27 - Laboratory Result Diagrams: 06/20/19 03:15 06/20/19 04:03 Laboratory results interpreted by me: 06/19/19 06/20/19 06/20/19 18:31 03:15 04:03 RBC 4.27 L MCV 104 H MCH 34.7 H RDW 17.8 H Glucose 111 H Alkaline Phosphatase 164 H Urine Protein 30 H Urine Ascorbic Acid 40 H Discharge - Discharge Clinical Impression: Knee pain Qualifiers: Chronicity: acute Laterality: unspecified laterality Qualified Code(s): M25.569 - Pain in unspecified knee Sickle cell disease Qualifiers: Sickle-cell associated disorders: with unspecified crisis Qualified Code(s): D57.00 - Hb-SS disease with crisis, unspecified Condition: Stable Disposition: HOME, SELF-CARE Additional Instructions: You were seen in the emergency department today for knee pain. Please follow-up with Dr. Willis as scheduled. Referrals: ANDREW WILLIS MD [Primary Care Provider] - Follow up as needed
[2019-06-20] MEDS ORDERED: DIPHENHYDRAMINE HCL 50 MG/ML VIAL ONE (03:22)
[2019-06-20] MEDS: HYDROMORPHONE HCL INJ/PF 2 MG/ML AMPULE IV PRN ×2 (03:40→05:28)
[2019-06-20 03:44] LABS: ABSOLUTE BASOPHILS # (AUTO) 0.1 10^3/uL (0.0-0.2); ABSOLUTE EOSINOPHILS # (AUTO) 0.3 10^3/uL (0.0-0.6); ABSOLUTE LYMPHOCYTES (AUTO) 2.1 10^3/uL (0.5-4.7); ABSOLUTE MONOCYTES (AUTO) 0.7 10^3/uL (0.1-1.4); ABSOLUTE NEUT (AUTO) 4.9 10^3/uL (1.7-8.2); ABSOLUTE RETICS # 0.051 10^6/uL (0.028-0.122); BASOPHILS % (AUTO) 1.3 % (0-2); EOSINOPHILS % (AUTO) 3.9 % (0-6); HEMATOCRIT 44.2 % (37.9-51.0); HEMOGLOBIN 14.8 g/dL (13.5-17.0); LYMPHOCYTES % (AUTO) 25.4 % (13-45); MEAN CORPUSCULAR HEMOGLOBIN 34.7 pg (27.0-33.4); MEAN CORPUSCULAR HGB CONC 33.5 g/dL (32.0-36.0); MEAN CORPUSCULAR VOLUME 104 fl (80-97); MONOCYTES % (AUTO) 8.5 % (3-13); PLATELET COUNT 276 10^3/uL (150-450); RED BLOOD COUNT 4.27 10^6/uL (4.35-5.55); RED CELL DISTRIBUTION WIDTH 17.8 % (11.5-14.0); SEGMENTED NEUTROPHILS % (AUTO) 60.9 % (42-78); TOTAL CELLS COUNTED % (AUTO) 100 %; WHITE BLOOD COUNT 8.1 10^3/uL (4.0-10.5)
[2019-06-20 04:07] LABS: PLATELET COMMENT ADEQUATE; SCHISTOCYTES SLIGHT; TARGET CELLS SLIGHT
[2019-06-20 04:27] LABS: ALBUMIN 4.6 g/dL (3.5-5.0); ALKALINE PHOSPHATASE 164 U/L (38-126); ANION GAP 11 (5-19); ASPARTATE AMINO TRANSFERASE 42 U/L (17-59); BILIRUBIN,DIRECT 0.1 mg/dL (0.0-0.4); BILIRUBIN,TOTAL 0.5 mg/dL (0.2-1.3); BLOOD UREA NITROGEN 12 mg/dL (7-20); CALCIUM 9.3 mg/dL (8.4-10.2); CARBON DIOXIDE 22 mmol/L (22-30); CHLORIDE 107 mmol/L (98-107); GLUCOSE 111 mg/dL (75-110); TOTAL PROTEIN 7.5 g/dL (6.3-8.2)
[2019-06-20] MEDS ORDERED: DIPHENHYDRAMINE HCL 50 MG/ML VIAL IV ONE (06:03)
[2019-06-20 06:23] VITALS: BP 148/74
== END 2019-06-20 06:22 | disposition home or self-care (01) ==
LOC: ER 17:01
DX: D57.00 Hb-SS disease with crisis, unspecified (principal); M25.561 Pain in right knee; J45.909 Unspecified asthma, uncomplicated; Z79.51 Long term (current) use of inhaled steroids; Z79.899 Other long term (current) drug therapy; Z79.891 Long term (current) use of opiate analgesic; Z91.018 Allergy to other foods; Z88.8 Allergy status to other drugs, medicaments and biological substances
CPT/HCPCS: 36415; 85025; 85045; 80053; 81001; J1200; J1170; J7030; 96361; 96374; 96375; 96376; 99283

== ENCOUNTER 2019-06-22 20:57 | Emergency (ER) | payer MEDICAID ==
[2019-06-22 21:01] VITALS: BP 146/104
--- NOTE | 2019-06-22 21:23 | ER Document Report ---
ED Medical Screen (RME) - General Chief Complaint: Knee Pain Stated Complaint: SICKLE CELL RIGHT KNEE PAIN Time Seen by Provider: 06/22/19 21:19 Primary Care Provider: ANDREW WILLIS MD [Primary Care Provider] - Follow up as needed Mode of Arrival: Ambulatory Information source: Patient Notes: 23-year-old male presents to ED for complaint of right knee pain. He has sickle cell anemia and this is where his sickle cell pain is usually found. He was seen in the emergency room on Saturday for the same pain. He has not been able to follow-up with his primary care yet as his appointment is on Saturday. He states his pain is back again due to the coldness outside. He states usually when it cold the pain gets worse. She is alert oriented respirations regular and unlabored speaking in full sentences. I have greeted and performed a rapid initial assessment of this patient. A comprehensive ED assessment and evaluation of the patient, analysis of test results and completion of medical decision making process will be conducted by an additional ED providers. TRAVEL OUTSIDE OF THE [place] IN LAST 30 DAYS: No - Related Data Allergies/Adverse Reactions: Coconut * [Coconut] Allergy (Mild, Verified 06/04/18 18:27) apixaban [From Eliquis] Allergy (Verified 10/18/18 16:34) rivaroxaban [From Xarelto] Allergy (Verified 10/18/18 16:34) transpore tape Allergy (Mild, Uncoded 06/04/18 18:27) Hives Past Medical History - Social History Family history: None Pulmonary Medical History: Reports: Hx Asthma, Hx Pneumonia Renal/ Medical History: Denies: Hx Peritoneal Dialysis Musculoskeltal Medical History: Reports Hx Musculoskeletal Deformity - Pain to multiple areas mostly right knee due to sickle cell anemia Past Surgical History: Reports: Hx Abdominal Surgery - Gallstones removal, Hx Cholecystectomy, Hx Orthopedic Surgery - Fluid drained from right foot, Hx Vascular Surgery - Port placement - Immunizations Immunizations up to date: Yes Hx Diphtheria, Pertussis, Tetanus Vaccination: Yes Physical Exam - Vital signs Vitals: Temp Pulse Resp BP Pulse Ox 98.6 F 121 H 17 146/104 H 100 06/22/19 21:00 06/22/19 21:00 06/22/19 21:00 06/22/19 21:00 06/22/19 21:00 Course - Vital Signs Vital signs: Temp Pulse Resp BP Pulse Ox 98.6 F 121 H 17 146/104 H 100 06/22/19 21:00 06/22/19 21:00 06/22/19 21:00 06/22/19 21:00 06/22/19 21:00 Doctor's Discharge - Discharge Referrals: ANDREW WILLIS MD [Primary Care Provider] - Follow up as needed
[2019-06-22] MEDS ORDERED: DIPHENHYDRAMINE HCL 50 MG/ML VIAL IV ONE (21:51)
--- NOTE | 2019-06-22 21:56 | ER Document Report ---
ED General - General Chief Complaint: Sickle Cell Crisis Stated Complaint: SICKLE CELL RIGHT KNEE PAIN Time Seen by Provider: 06/22/19 21:19 Primary Care Provider: ANDREW WILLIS MD [Primary Care Provider] - Follow up in 3-5 days Mode of Arrival: Ambulatory TRAVEL OUTSIDE OF THE [place] IN LAST 30 DAYS: No - HPI Notes: Patient is a 23-year-old male with history of sickle cell status post transfusion about 6 to 8 months ago who presents complaining of right knee pain which is where his usual cytopenias during a sickle crisis. Patient states that he was here 2 days ago and had treatment which worked well for him, but the pain started up again today. Patient states that it is not as severe as some the other flareups that he has had, but wanted to come in and get things taken care of quickly. He is set to see Rodriguez again on . He is otherwise eating and drinking without difficulty. He is urinating normally and having normal bowel movements. No recent illness. Denies any headache, fever, neck pain, URI, sore throat, chest pain, palpitations, syncope, cough, shortness of breath, wheeze, dyspnea, abdominal pain, nausea/vomiting/diarrhea, urinary retention, dysuria, hematuria, or rash. - Related Data Allergies/Adverse Reactions: Coconut * [Coconut] Allergy (Mild, Verified 06/22/19 21:25) apixaban [From Eliquis] Allergy (Verified 06/22/19 21:25) rivaroxaban [From Xarelto] Allergy (Verified 06/22/19 21:25) transpore tape Allergy (Mild, Uncoded 06/22/19 21:25) Hives Past Medical History - General Information source: Patient - Social History Smoking Status: Never Smoker Chew tobacco use (# tins/day): No Frequency of alcohol use: None Drug Abuse: None Family History: Reviewed & Not Pertinent, Arthritis, DM, Hypertension, Other - Sickle cell trait both parents and asthma Patient has suicidal ideation: No Patient has homicidal ideation: No Pulmonary Medical History: Reports: Hx Asthma, Hx Pneumonia Renal/ Medical History: Denies: Hx Peritoneal Dialysis Musculoskeletal Medical History: Reports Hx Musculoskeletal Deformity - Pain to multiple areas mostly right knee due to sickle cell anemia Past Surgical History: Reports: Hx Abdominal Surgery - Gallstones removal, Hx Cholecystectomy, Hx Orthopedic Surgery - Fluid drained from right foot, Hx Vascular Surgery - Port placement - Immunizations Immunizations up to date: Yes Hx Diphtheria, Pertussis, Tetanus Vaccination: Yes Hx Pneumococcal Vaccination: 01/15/13 Review of Systems - Review of Systems -: Yes All other systems reviewed and negative Physical Exam - Vital signs Vitals: Temp Pulse Resp BP Pulse Ox 98.6 F 121 H 17 146/104 H 100 06/22/19 21:00 06/22/19 21:00 06/22/19 21:00 06/22/19 21:00 06/22/19 21:00 - Notes Notes: PHYSICAL EXAMINATION: GENERAL: Well-appearing, well-nourished and in no acute distress. HEAD: Atraumatic, normocephalic. EYES: Pupils equal round and reactive to light, extraocular movements intact, sclera anicteric, conjunctiva are normal. ENT: Nares patent and without discharge. oropharynx clear without exudates. No tonsilar hypertrophy or erythema. Moist mucous membranes. NECK: Normal range of motion, supple without lymphadenopathy LUNGS: Breath sounds clear to auscultation bilaterally and equal. No wheezes rales or rhonchi. HEART: Regular rate and rhythm without murmurs, rubs, gallops. ABDOMEN: Soft, nontender, nondistended abdomen. No guarding, no rebound. Normal bowel sounds present. No CVA tenderness bilaterally. Musculoskeletal: Rt knee: + mild anterior tenderness. No ecchymosis, effusion, erythema, warmth, swelling, or deformity noted. No ecchymosis. FROM to passive/active. Strength 5+/5. N/V intact distal. Extremities: No cyanosis, clubbing, or edema b/l. Peripheral pulses 2+. Capillary refill less than 3 seconds. NEUROLOGICAL: Cranial nerves grossly intact. Normal speech, normal gait. Normal sensory, motor exams PSYCH: Normal mood, normal affect. SKIN: Warm, Dry, normal turgor, no rashes or lesions noted. Course - Re-evaluation Re-evalutation: 06/23/19 Patient is an afebrile, well-hydrated, 23-year-old male who presents to the ED with mild sickle cell crisis with pain to his Rt knee. Vitals are acceptable. He has no significant tachycardia, tachypnea, or hypoxia. PE is otherwise unremarkable for any neurovascular compromise, obvious tendon/ligament rupture, obvious fracture/dislocation, septic joint. CBC, reticulocyte count were acceptable at this time. CMP hemolyzed x3 and pt does not want to wait any longer as he is feeling better. He is tolerating p.o. without any difficulties. Patient states that he is feeling much better and would like to go home. He does have an appointment scheduled with a specialist on . No other labs or imaging warranted at this time based on H&P. Low suspicion for any acute chest syndrome, sepsis, meningitis, severe dehydration. Conservative measures otherwise for symptoms. Recheck with your PCM in 3-5 days as well. Return to the ED with any worsening/concerning symptoms otherwise as reviewed discharge. Patient is in agreement. - Vital Signs Vital signs: Temp Pulse Resp BP Pulse Ox 98.6 F 121 H 19 146/104 H 98 06/22/19 21:00 06/22/19 21:00 06/23/19 01:00 06/22/19 21:00 06/23/19 01:00 - Laboratory Result Diagrams: 06/22/19 22:10 06/22/19 22:10 Laboratory results interpreted by me: 06/22/19 22:10 RBC 4.22 L MCV 104 H MCH 35.1 H RDW 17.4 H Discharge - Discharge Clinical Impression: Sickle cell crisis Right knee pain Qualifiers: Chronicity: acute Qualified Code(s): M25.561 - Pain in right knee Condition: Stable Disposition: HOME, SELF-CARE Additional Instructions: Rest, Ice, Compression, Elevation Tylenol/ibuprofen as needed Light stretches daily Strength exercises as able Moist heat and massage may help F/u with your PCP in 3-5 days for a recheck Keep appointment with your [place] specialist this Return to the ED with any worsening symptoms and/or development of fever, headache, chest pain, palpitations, syncope, shortness of breath, trouble breathing, abdominal pain, n/v/d, muscle weakness/paralysis, numbness/tingling, swelling, redness, or other worsening symptoms that are concerning to you. Forms: Elevated Blood Pressure Referrals: NADREW WILLIS MD [Primary Care Provider] - Follow up in 3-5 days
[2019-06-22] MEDS: HYDROMORPHONE HCL INJ/PF 2 MG/ML AMPULE IV PRN ×2 (22:09→23:49)
[2019-06-22] MEDS: NORMAL SALINE 1000 ML 1,000 ML IV PRN ×2 (22:11→23:50)
[2019-06-22 22:31] LABS: ABSOLUTE RETICS # 0.085 10^6/uL (0.028-0.122); HEMOGLOBIN 14.8 g/dL (13.5-17.0); MEAN CORPUSCULAR HEMOGLOBIN 35.1 pg (27.0-33.4); MEAN CORPUSCULAR HGB CONC 33.7 g/dL (32.0-36.0); MEAN CORPUSCULAR VOLUME 104 fl (80-97); PLATELET COUNT 262 10^3/uL (150-450); RED BLOOD COUNT 4.22 10^6/uL (4.35-5.55); RED CELL DISTRIBUTION WIDTH 17.4 % (11.5-14.0); WHITE BLOOD COUNT 6.6 10^3/uL (4.0-10.5)
[2019-06-22 22:52] LABS: ABSOLUTE LYMPHOCYTES# (MANUAL) 2.2 10^3/uL (0.5-4.7); ABSOLUTE MONOCYTES # (MANUAL) 0.4 10^3/uL (0.1-1.4); ANISOCYTOSIS 1+; BASOPHILS % (MANUAL) 2 % (0-2); EOSINOPHILS % (MANUAL) 2 % (0-6); LYMPHOCYTES % (MANUAL) 33 % (13-45); MONOCYTES % (MANUAL) 6 % (3-13); OVALOCYTES SLIGHT; POIKILOCYTOSIS 2+; POLYCHROMASIA SLIGHT; SCHISTOCYTES 1+; SEGMENTED NEUTROPHILS % (MAN) 57 % (42-78); TARGET CELLS 1+; TOTAL CELLS COUNTED 100
[2019-06-22 22:53] LABS: PLATELET COMMENT ADEQUATE
[2019-06-23] MEDS ORDERED: DIPHENHYDRAMINE HCL 50 MG/ML VIAL IV ONE (01:08)
[2019-06-23] MEDS: HYDROMORPHONE HCL INJ/PF 2 MG/ML AMPULE IV PRN (01:18)
== END 2019-06-23 02:12 | disposition home or self-care (01) ==
LOC: ER 20:57
DX: D57.00 Hb-SS disease with crisis, unspecified (principal); M25.561 Pain in right knee; J45.909 Unspecified asthma, uncomplicated; Z91.018 Allergy to other foods; Z88.8 Allergy status to other drugs, medicaments and biological substances
CPT/HCPCS: 36415; 85025; 85045; J1200 ×2; J1170 ×2; J7030; 80053; 96361; 96374; 96375; 96376; 99283

== ENCOUNTER 2019-06-29 20:40 | Emergency (ER) | payer MEDICAID ==
[2019-06-29] MEDS ORDERED: NORMAL SALINE 1000 ML 1,000 ML IV ONE (21:09)
[2019-06-29 21:58] LABS: ABSOLUTE BASOPHILS # (AUTO) 0.1 10^3/uL (0.0-0.2); ABSOLUTE EOSINOPHILS # (AUTO) 0.2 10^3/uL (0.0-0.6); ABSOLUTE LYMPHOCYTES (AUTO) 2.1 10^3/uL (0.5-4.7); ABSOLUTE MONOCYTES (AUTO) 0.7 10^3/uL (0.1-1.4); ABSOLUTE NEUT (AUTO) 3.6 10^3/uL (1.7-8.2); BASOPHILS % (AUTO) 1.9 % (0-2); EOSINOPHILS % (AUTO) 3.6 % (0-6); HEMATOCRIT 46.3 % (37.9-51.0); HEMOGLOBIN 15.5 g/dL (13.5-17.0); LYMPHOCYTES % (AUTO) 30.6 % (13-45); MEAN CORPUSCULAR HEMOGLOBIN 35.4 pg (27.0-33.4); MEAN CORPUSCULAR HGB CONC 33.4 g/dL (32.0-36.0); MEAN CORPUSCULAR VOLUME 106 fl (80-97); MONOCYTES % (AUTO) 10.2 % (3-13); PLATELET COUNT 282 10^3/uL (150-450); RED BLOOD COUNT 4.37 10^6/uL (4.35-5.55); RED CELL DISTRIBUTION WIDTH 17.5 % (11.5-14.0); RETICULOCYTE COUNT (AUTO) 2.06 % (0.66-2.85); SEGMENTED NEUTROPHILS % (AUTO) 53.7 % (42-78); TOTAL CELLS COUNTED % (AUTO) 100 %; WHITE BLOOD COUNT 6.8 10^3/uL (4.0-10.5)
[2019-06-29 22:21] LABS: ANISOCYTOSIS 1+; PLATELET COMMENT ADEQUATE; TARGET CELLS 1+
[2019-06-29] MEDS ORDERED: DIPHENHYDRAMINE HCL 50 MG/ML VIAL IV ONE ×2 (22:34→23:46)
[2019-06-29] MEDS ORDERED: HYDROMORPHONE HCL INJ/PF 2 MG/ML AMPULE IV ONE ×2 (22:34→23:45)
--- NOTE | 2019-06-29 22:35 | ER Document Report ---
ED General - General Chief Complaint: Sickle Cell Crisis Stated Complaint: SICKLE CELL PAIN Time Seen by Provider: 06/29/19 22:27 Primary Care Provider: ANDREW WILLIS MD [Primary Care Provider] - Follow up as needed Notes: Patient is a 24-year-old male that has a history of sickle cell anemia that comes to the emergency department for chief complaint of generalized body aches but especially throbbing pain to the right knee. He states that at this time a year he tends to get a lot of flareups, this is actually the typical location of his pain. He denies injury to the knee, fever/chills, nausea/vomiting, abd ominal pain, chest pain, difficulty breathing. He states he did complete transplant procedure at [facility] where he follows, he states that he has actually been doing a lot better and they told him he is improving. TRAVEL OUTSIDE OF THE [place] IN LAST 30 DAYS: No - Related Data Allergies/Adverse Reactions: Coconut * [Coconut] Allergy (Mild, Verified 06/22/19 21:25) apixaban [From Eliquis] Allergy (Verified 06/22/19 21:25) rivaroxaban [From Xarelto] Allergy (Verified 06/22/19 21:25) transpore tape Allergy (Mild, Uncoded 06/22/19 21:25) Hives Home Medications: Oxycodone 10mg. inhaler Past Medical History - General Information source: Patient - Social History Smoking Status: Never Smoker Frequency of alcohol use: None Drug Abuse: None Lives with: Family Family History: Reviewed & Not Pertinent, Arthritis, DM, Hypertension, Other - Sickle cell trait both parents and asthma Patient has suicidal ideation: No Patient has homicidal ideation: No Pulmonary Medical History: Reports: Hx Asthma, Hx Pneumonia Renal/ Medical History: Denies: Hx Peritoneal Dialysis Musculoskeletal Medical History: Reports Hx Musculoskeletal Deformity - Pain to multiple areas mostly right knee due to sickle cell anemia Past Surgical History: Reports: Hx Abdominal Surgery - Gallstones removal, Hx Cholecystectomy, Hx Orthopedic Surgery - Fluid drained from right foot, Hx Vascular Surgery - Port placementx2 (failed) - Immunizations Immunizations up to date: Yes Hx Diphtheria, Pertussis, Tetanus Vaccination: Yes Hx Pneumococcal Vaccination: 01/15/13 Review of Systems - Review of Systems Constitutional: See HPI EENT: No symptoms reported Cardiovascular: No symptoms reported Respiratory: No symptoms reported Gastrointestinal: No symptoms reported Genitourinary: No symptoms reported Male Genitourinary: No symptoms reported Musculoskeletal: See HPI Skin: No symptoms reported Hematologic/Lymphatic: No symptoms reported Neurological/Psychological: No symptoms reported Physical Exam - Vital signs Vitals: Temp Pulse Resp BP Pulse Ox 98.1 F 107 H 18 129/87 H 97 06/29/19 20:56 06/29/19 20:56 06/29/19 20:56 06/29/19 20:56 06/29/19 20:56 - Notes Notes: GENERAL: Alert, interacts well. No acute distress. HEAD: Normocephalic, atraumatic. EYES: Pupils equal, round, and reactive to light. Extraocular movements intact. ENT: Oral mucosa moist, tongue midline. Oropharynx unremarkable. Airway patent. LUNGS: Clear to auscultation bilaterally, no wheezes, rales, or rhonchi. No respiratory distress. HEART: Borderline tachycardic, normal rhythm. No murmur ABDOMEN: Soft, non-tender. Non-distended. Bowel sounds present in all 4 quadrants. GENITOURINARY: Deferred EXTREMITIES: Moves all 4 extremities spontaneously. No edema, normal radial and dorsalis pedis pulses bilaterally. No cyanosis. BACK: no cervical, thoracic, lumbar midline tenderness. No saddle anesthesia, normal distal neurovascular exam. Moves all extremities in full range of motion. NEUROLOGICAL: Alert and oriented x3. Normal speech. Cranial nerves II through XII grossly intact. PSYCH: Normal affect, normal mood. SKIN: Warm, dry, normal turgor. No rashes or lesions noted. Course - Re-evaluation Re-evalutation: Patient is borderline tachycardic, however he is very well-appearing on exam. He is talkative. He complains of pain generally and mainly in his knee. This is not new for him. CBC, chemistry, reticulocytes, indirect bilirubin unremarkable. I reevaluated patient after treatment of symptoms, he states he feels significantly improved. He states he is still not as bad as he ever got previously. He states he would like an additional dose and to be discharged home to follow-up with his tableau administrator. Discussed return precautions including chest pain, fever, shortness of breath, etc. Patient states understanding and agreement. Stable at time of discharge. - Vital Signs Vital signs: Temp Pulse Resp BP Pulse Ox 97.5 F 101 H 17 139/82 H 95 06/30/19 01:54 06/30/19 01:54 06/30/19 01:54 06/30/19 01:54 06/30/19 01:54 - Laboratory Result Diagrams: 06/29/19 21:50 06/29/19 22:38 Laboratory results interpreted by me: 06/29/19 06/29/19 21:50 22:38 MCV 106 H MCH 35.4 H RDW 17.5 H Chloride 108 H Glucose 154 H AST 67 H Alkaline Phosphatase 153 H Discharge - Discharge Clinical Impression: Body aches Knee pain Qualifiers: Chronicity: unspecified Laterality: right Qualified Code(s): M25.561 - Pain in right knee Sickle cell anemia Qualifiers: Sickle-cell associated disorders: with unspecified crisis Qualified Code(s): D57.00 - Hb-SS disease with crisis, unspecified Condition: Stable Disposition: HOME, SELF-CARE Additional Instructions: Your evaluation is reassuring today. Follow-up with your tableau administrator for additional management. Return if you worsen including severe worsening pain, vomiting, chest pain, difficulty breathing, fever, or any other concerning symptoms. Referrals: ANDREW WILLIS MD [Primary Care Provider] - Follow up as needed
[2019-06-29 23:08] LABS: ALBUMIN 4.9 g/dL (3.5-5.0); ALKALINE PHOSPHATASE 153 U/L (38-126); ANION GAP 13 (5-19); ASPARTATE AMINO TRANSFERASE 67 U/L (17-59); BILIRUBIN,DIRECT 0.3 mg/dL (0.0-0.4); BILIRUBIN,TOTAL 0.4 mg/dL (0.2-1.3); BLOOD UREA NITROGEN 14 mg/dL (7-20); CALCIUM 9.5 mg/dL (8.4-10.2); CARBON DIOXIDE 22 mmol/L (22-30); CHLORIDE 108 mmol/L (98-107); GLUCOSE 154 mg/dL (75-110); POTASSIUM 4.1 mmol/L (3.6-5.0); TOTAL PROTEIN 7.9 g/dL (6.3-8.2)
[2019-06-30] MEDS ORDERED: HYDROMORPHONE HCL INJ/PF 2 MG/ML AMPULE IV ONE (01:22)
[2019-06-30 01:55] VITALS: BP 139/82
== END 2019-06-30 01:55 | disposition home or self-care (01) ==
LOC: ER 20:40
DX: D57.00 Hb-SS disease with crisis, unspecified (principal); M25.561 Pain in right knee; J45.909 Unspecified asthma, uncomplicated; Z79.891 Long term (current) use of opiate analgesic; Z79.899 Other long term (current) drug therapy; Z91.018 Allergy to other foods; Z88.8 Allergy status to other drugs, medicaments and biological substances
CPT/HCPCS: 96376; 99284; 96361; 96374; 96375; 36415; 85025; 85045; 80053; J1200; J1170 ×2; J7030

== ENCOUNTER 2019-07-04 21:18 | Emergency (ER) | payer MEDICAID ==
--- NOTE | 2019-07-04 21:28 | ER Document Report ---
ED Medical Screen (RME) - General Chief Complaint: Knee Pain Stated Complaint: RIGHT KNEE PAIN -REPORTS SICKLE CELL Time Seen by Provider: 07/04/19 21:25 Primary Care Provider: ANDREW WILLIS MD [Primary Care Provider] - Follow up as needed Mode of Arrival: Ambulatory Information source: Patient Notes: 24-year-old male presents to ED for complaint of right knee pain. He frequently has right knee pain from sickle cell anemia. He states this is where he usually gets his pain. He is alert oriented respirations regular nonlabored speaking in full sentences. I have greeted and performed a rapid initial assessment of this patient. A comprehensive ED assessment and evaluation of the patient, analysis of test results and completion of medical decision making process will be conducted by an additional ED providers. TRAVEL OUTSIDE OF THE [place] IN LAST 30 DAYS: No - Related Data Allergies/Adverse Reactions: Coconut * [Coconut] Allergy (Mild, Verified 06/22/19 21:25) apixaban [From Eliquis] Allergy (Verified 06/22/19 21:25) rivaroxaban [From Xarelto] Allergy (Verified 06/22/19 21:25) transpore tape Allergy (Mild, Uncoded 06/22/19 21:25) Hives Past Medical History - Social History Family history: None Pulmonary Medical History: Reports: Hx Asthma, Hx Pneumonia Renal/ Medical History: Denies: Hx Peritoneal Dialysis Musculoskeltal Medical History: Reports Hx Musculoskeletal Deformity - Pain to multiple areas mostly right knee due to sickle cell anemia Past Surgical History: Reports: Hx Abdominal Surgery - Gallstones removal, Hx Cholecystectomy, Hx Orthopedic Surgery - Fluid drained from right foot, Hx Vascular Surgery - Port placementx2 (failed) - Immunizations Immunizations up to date: Yes Hx Diphtheria, Pertussis, Tetanus Vaccination: Yes Doctor's Discharge - Discharge Referrals: ANDREW WILLIS MD [Primary Care Provider] - Follow up as needed
[2019-07-04 21:57] LABS: ABSOLUTE RETICS # 0.038 10^6/uL (0.028-0.122); HEMATOCRIT 45.3 % (37.9-51.0); HEMOGLOBIN 15.7 g/dL (13.5-17.0); MEAN CORPUSCULAR HEMOGLOBIN 35.9 pg (27.0-33.4); MEAN CORPUSCULAR HGB CONC 34.6 g/dL (32.0-36.0); MEAN CORPUSCULAR VOLUME 104 fl (80-97); PLATELET COUNT 243 10^3/uL (150-450); RED BLOOD COUNT 4.36 10^6/uL (4.35-5.55); RED CELL DISTRIBUTION WIDTH 16.8 % (11.5-14.0); RETICULOCYTE COUNT (AUTO) 0.86 % (0.66-2.85); WHITE BLOOD COUNT 7.2 10^3/uL (4.0-10.5)
[2019-07-04 22:13] LABS: ALBUMIN 5.1 g/dL (3.5-5.0); ALKALINE PHOSPHATASE 143 U/L (38-126); ANION GAP 12 (5-19); ASPARTATE AMINO TRANSFERASE 34 U/L (17-59); BILIRUBIN,DIRECT 0.2 mg/dL (0.0-0.4); BILIRUBIN,TOTAL 0.5 mg/dL (0.2-1.3); BLOOD UREA NITROGEN 18 mg/dL (7-20); CALCIUM 9.7 mg/dL (8.4-10.2); CARBON DIOXIDE 26 mmol/L (22-30); CHLORIDE 106 mmol/L (98-107); GLUCOSE 94 mg/dL (75-110); POTASSIUM 4.3 mmol/L (3.6-5.0); TOTAL PROTEIN 8.3 g/dL (6.3-8.2)
[2019-07-04 22:25] LABS: ABSOLUTE LYMPHOCYTES# (MANUAL) 3.8 10^3/uL (0.5-4.7); ABSOLUTE MONOCYTES # (MANUAL) 0.5 10^3/uL (0.1-1.4); ANISOCYTOSIS 1+; BASOPHILS % (MANUAL) 0 % (0-2); EOSINOPHILS % (MANUAL) 1 % (0-6); LYMPHOCYTES % (MANUAL) 53 % (13-45); MONOCYTES % (MANUAL) 7 % (3-13); PLATELET COMMENT ADEQUATE; SEGMENTED NEUTROPHILS % (MAN) 39 % (42-78); TOTAL CELLS COUNTED 100
[2019-07-04] MEDS ORDERED: DIPHENHYDRAMINE HCL 25 MG CAPSULE PO ONE (22:50)
[2019-07-04] MEDS ORDERED: NORMAL SALINE 1000 ML 1,000 ML IV ONE (22:51)
[2019-07-04] MEDS ORDERED: HYDROMORPHONE HCL INJ/PF 2 MG/ML AMPULE IV ONE (22:52)
--- NOTE | 2019-07-05 01:07 | ER Document Report ---
ED Extremity Problem, Lower - General Chief Complaint: Knee Pain Stated Complaint: RIGHT KNEE PAIN -REPORTS SICKLE CELL Time Seen by Provider: 07/04/19 21:25 Primary Care Provider: ANDREW WILLIS MD [Primary Care Provider] - Follow up as needed Mode of Arrival: Ambulatory TRAVEL OUTSIDE OF THE [place] IN LAST 30 DAYS: No - Related Data Allergies/Adverse Reactions: Coconut * [Coconut] Allergy (Mild, Verified 06/22/19 21:25) apixaban [From Eliquis] Allergy (Verified 06/22/19 21:25) rivaroxaban [From Xarelto] Allergy (Verified 06/22/19 21:25) transpore tape Allergy (Mild, Uncoded 06/22/19 21:25) Hives Past Medical History - General Information source: Patient - Social History Smoking Status: Never Smoker Chew tobacco use (# tins/day): No Frequency of alcohol use: Occasional Drug Abuse: None Family History: Reviewed & Not Pertinent, Arthritis, DM, Hypertension, Other - Sickle cell trait both parents and asthma Patient has suicidal ideation: No Patient has homicidal ideation: No Pulmonary Medical History: Reports: Hx Asthma, Hx Pneumonia Renal/ Medical History: Denies: Hx Peritoneal Dialysis Musculoskeletal Medical History: Reports Hx Musculoskeletal Deformity - Pain to multiple areas mostly right knee due to sickle cell anemia Past Surgical History: Reports: Hx Abdominal Surgery - Gallstones removal, Hx Cholecystectomy, Hx Orthopedic Surgery - Fluid drained from right foot, Hx Vascular Surgery - Port placementx2 (failed) - Immunizations Immunizations up to date: Yes Hx Diphtheria, Pertussis, Tetanus Vaccination: Yes Hx Pneumococcal Vaccination: 01/15/13 Physical Exam - Vital signs Vitals: Temp Pulse Resp BP Pulse Ox 98.7 F 107 H 18 143/97 H 97 07/04/19 21:23 07/04/19 21:23 07/04/19 21:23 07/04/19 21:23 07/04/19 21:23 Course - Vital Signs Vital signs: Temp Pulse Resp BP Pulse Ox 98.0 F 101 H 20 148/98 H 95 07/04/19 23:23 07/04/19 23:23 07/04/19 23:23 07/04/19 23:23 07/04/19 23:23 - Laboratory Result Diagrams: 07/04/19 21:35 07/04/19 21:35 Laboratory results interpreted by me: 07/04/19 07/04/19 21:35 21:35 MCV 104 H MCH 35.9 H RDW 16.8 H Seg Neuts % (Manual) 39 L Lymphocytes % (Manual) 53 H Alkaline Phosphatase 143 H Total Protein 8.3 H Albumin 5.1 H Discharge - Discharge Clinical Impression: Chronic pain disorder, Sickle cell anemia with pain Recurrent knee pain Qualifiers: Laterality: right Qualified Code(s): M25.561 - Pain in right knee Condition: Good Disposition: HOME, SELF-CARE Instructions: Oral Narcotic Medication ([facility]), Ice & Elevation ([facility]) Additional Instructions: I would recommend that you follow-up with your primary care doctor to increase your chronic pain medications. It is not appropriate to continue to return to the emergency department for IV Dilaudid. I would also recommend that you use NSAIDs such as high-dose 800 mg ibuprofen every 6-8 hours as needed for pain. I would also recommend that you increase your fluid intake to at least 8 x 8 ounce glasses of water daily. If you notice fever, unable to walk, or any other concerning symptoms, return to the ED. Referrals: ANDREW WILLIS MD [Primary Care Provider] - Follow up as needed
[2019-07-05] MEDS ORDERED: KETOROLAC TROMETHAMINE INJ/PF 30 MG/1 ML SDV IV ONE (01:30)
--- NOTE | 2019-07-05 01:39 | RADIOLOGY REPORT (SQ) ---
EXAM DESCRIPTION: XR KNEE 4 OR MORE VIEWS COMPLETED DATE/TME: 07/05/2019 01:08 CLINICAL HISTORY: 24 years, Male, hx of sickle cell disease, hx of avascular necrosi COMPARISON: 06/16/2018 right knee NUMBER OF VIEWS: 4 TECHNIQUE: 4 views right knee LIMITATIONS: None. FINDINGS: Redemonstrated is a diffusely heterogeneous appearance to the bone marrow consistent with underlying sickle cell disease. Negative for acute fracture or dislocation. No radiographic evidence for joint effusion IMPRESSION: Abnormal marrow signal as before. No acute osseous abnormality copyright 2010 [employer]- All Rights Reserved
[2019-07-05 02:35] VITALS: BP 140/84
== END 2019-07-05 02:34 | disposition home or self-care (01) ==
LOC: ER 21:18
DX: M25.561 Pain in right knee (principal); D57.819 Other sickle-cell disorders with crisis, unspecified; G89.4 Chronic pain syndrome; Z90.49 Acquired absence of other specified parts of digestive tract
CPT/HCPCS: 36415; 85025; 85045; 80053; 73564; J3490; J1885; J1170; J7030; 96361; 96374; 96375; 99284

== ENCOUNTER 2019-07-07 17:20 | Emergency (ER) | payer MEDICAID ==
[2019-07-07] MEDS ORDERED: NORMAL SALINE 1000 ML 1,000 ML IV PRN (17:40)
[2019-07-07] MEDS ORDERED: HYDROMORPHONE HCL INJ/PF 2 MG/ML AMPULE IV ONE ×2 (17:41→19:06)
--- NOTE | 2019-07-07 17:45 | ER Document Report ---
HPI - HPI Time Seen by Provider: 07/07/19 17:35 - REPRODUCTIVE Reproductive: DENIES: : Past Medical History - Social History Family History: Reviewed & Not Pertinent, Arthritis, DM, Hypertension, Other - Sickle cell trait both parents and asthma Pulmonary Medical History: Reports: Hx Asthma, Hx Pneumonia Renal/ Medical History: Denies: Hx Peritoneal Dialysis Musculoskeletal Medical History: Reports Hx Musculoskeletal Deformity - Pain to multiple areas mostly right knee due to sickle cell anemia Past Surgical History: Reports: Hx Abdominal Surgery - Gallstones removal, Hx Cholecystectomy, Hx Orthopedic Surgery - Fluid drained from right foot, Hx Vascular Surgery - Port placementx2 (failed) - Immunizations Immunizations up to date: Yes Hx Diphtheria, Pertussis, Tetanus Vaccination: Yes Hx Pneumococcal Vaccination: 01/15/13 Vertical Provider Document - INFECTION CONTROL TRAVEL OUTSIDE OF THE [place] IN LAST 30 DAYS: No Course - Vital Signs Vital signs: Temp Pulse Resp BP Pulse Ox 98.4 F 114 H 20 136/92 H 95 07/07/19 17:24 07/07/19 17:24 07/07/19 17:24 07/07/19 17:24 07/07/19 17:24 Discharge - Discharge Referrals: ANDREW WILLIS MD [Primary Care Provider] - Follow up as needed
--- NOTE | 2019-07-07 17:54 | ER Document Report ---
ED Medical Screen (RME) - General Chief Complaint: Sickle Cell Crisis Stated Complaint: RIGHT KNEE PAIN Time Seen by Provider: 07/07/19 17:35 Primary Care Provider: ANDREW WILLIS MD [Primary Care Provider] - Follow up as needed Mode of Arrival: Ambulatory Information source: Patient TRAVEL OUTSIDE OF THE [place] IN LAST 30 DAYS: No - HPI Notes: 07/07/19 17:49 24-year-old male with a medical history of sickle cell crisis presents to emergency room with right knee pain which is typically how he presents prior to a sickle cell crisis. Patient has had several flareups throughout the year. He is typically seen at [facility] ED. denies any fevers or chills. Patient states he is having right knee pain, this usually occurs prior to a sickle cell crisis. Patient has a history of avascular necrosis related to sickle cell crisis. Denies fevers, chills, chest pain,palpitations, shortness of breath, dyspnea, nausea, vomiting, diarrhea, abdominal pain, speech changes, LH, dizziness, syncope, headaches, wheezing, ST, URI, neck pain, weakness, bowel or bladder dysfunction, saddle anesthesia, rash. ROS: Other than noted above, the 12 point review of systems was reviewed with the patient and were negative, all pertinent findings are included in the HPI. PHYSICAL EXAMINATION: Vital signs reviewed. GENERAL: Well-appearing, well-nourished and in no acute distress. HEAD: Atraumatic, normocephalic. NECK: Normal range of motion CV: Heart regular rate and rhythm LUNGS: No respiratory distress ABD: generalized abd pain Musculoskeletal: Normal range of motion. tenderness to right knee on palpation NEUROLOGICAL: Normal speech PSYCH: Normal mood, normal affect. MDM: Patient seen and examined for rapid initial assessment. Vital signs reviewed. A comprehensive ED assessment and evaluation of the patient, analysis of test results and completion of the medical decision making process will be conducted by additional ED providers. *Note is created using voice recognition software and may contain spelling, syntax or grammatical errors. - Related Data Allergies/Adverse Reactions: Coconut * [Coconut] Allergy (Mild, Verified 06/22/19 21:25) apixaban [From Eliquis] Allergy (Verified 06/22/19 21:25) rivaroxaban [From Xarelto] Allergy (Verified 06/22/19 21:25) transpore tape Allergy (Mild, Uncoded 06/22/19 21:25) Hives Past Medical History - Social History Family history: None Pulmonary Medical History: Reports: Hx Asthma, Hx Pneumonia Renal/ Medical History: Denies: Hx Peritoneal Dialysis Musculoskeltal Medical History: Reports Hx Musculoskeletal Deformity - Pain to multiple areas mostly right knee due to sickle cell anemia Past Surgical History: Reports: Hx Abdominal Surgery - Gallstones removal, Hx Cholecystectomy, Hx Orthopedic Surgery - Fluid drained from right foot, Hx Vascular Surgery - Port placementx2 (failed) - Immunizations Immunizations up to date: Yes Hx Diphtheria, Pertussis, Tetanus Vaccination: Yes Physical Exam - Vital signs Vitals: Temp Pulse Resp BP Pulse Ox 98.4 F 114 H 20 136/92 H 95 07/07/19 17:24 07/07/19 17:24 07/07/19 17:24 07/07/19 17:24 07/07/19 17:24 Course - Vital Signs Vital signs: Temp Pulse Resp BP Pulse Ox 98.4 F 114 H 20 136/92 H 95 07/07/19 17:24 07/07/19 17:24 07/07/19 17:24 07/07/19 17:24 07/07/19 17:24 Doctor's Discharge - Discharge Referrals: ANDREW WILLIS MD [Primary Care Provider] - Follow up as needed
[2019-07-07] MEDS ORDERED: DIPHENHYDRAMINE HCL 50 MG/ML VIAL IV ONE (18:17)
[2019-07-07 18:41] LABS: ABSOLUTE BASOPHILS # (AUTO) 0.1 10^3/uL (0.0-0.2); ABSOLUTE EOSINOPHILS # (AUTO) 0.2 10^3/uL (0.0-0.6); ABSOLUTE LYMPHOCYTES (AUTO) 2.1 10^3/uL (0.5-4.7); ABSOLUTE MONOCYTES (AUTO) 0.6 10^3/uL (0.1-1.4); ABSOLUTE NEUT (AUTO) 3.2 10^3/uL (1.7-8.2); ABSOLUTE RETICS # 0.056 10^6/uL (0.028-0.122); BASOPHILS % (AUTO) 1.8 % (0-2); EOSINOPHILS % (AUTO) 2.6 % (0-6); HEMATOCRIT 43.8 % (37.9-51.0); HEMOGLOBIN 15.4 g/dL (13.5-17.0); LYMPHOCYTES % (AUTO) 34.7 % (13-45); MEAN CORPUSCULAR HEMOGLOBIN 36.2 pg (27.0-33.4); MEAN CORPUSCULAR HGB CONC 35.1 g/dL (32.0-36.0); MEAN CORPUSCULAR VOLUME 103 fl (80-97); MONOCYTES % (AUTO) 9.7 % (3-13); PLATELET COUNT 240 10^3/uL (150-450); RED BLOOD COUNT 4.26 10^6/uL (4.35-5.55); RED CELL DISTRIBUTION WIDTH 16.6 % (11.5-14.0); RETICULOCYTE COUNT (AUTO) 1.31 % (0.66-2.85); SEGMENTED NEUTROPHILS % (AUTO) 51.2 % (42-78); TOTAL CELLS COUNTED % (AUTO) 100 %; WHITE BLOOD COUNT 6.2 10^3/uL (4.0-10.5)
[2019-07-07 18:53] LABS: ALBUMIN 4.9 g/dL (3.5-5.0); ALKALINE PHOSPHATASE 133 U/L (38-126); ANION GAP 12 (5-19); ASPARTATE AMINO TRANSFERASE 37 U/L (17-59); BILIRUBIN,DIRECT 0.2 mg/dL (0.0-0.4); BILIRUBIN,TOTAL 0.4 mg/dL (0.2-1.3); BLOOD UREA NITROGEN 15 mg/dL (7-20); CALCIUM 9.7 mg/dL (8.4-10.2); CARBON DIOXIDE 25 mmol/L (22-30); CHLORIDE 107 mmol/L (98-107); GLUCOSE 121 mg/dL (75-110); POTASSIUM 4.1 mmol/L (3.6-5.0); TOTAL PROTEIN 7.8 g/dL (6.3-8.2)
[2019-07-07 19:08] LABS: ANISOCYTOSIS 1+; OVALOCYTES SLIGHT; PLATELET COMMENT ADEQUATE; PLATELET LARGE PRESENT; TARGET CELLS 1+
--- NOTE | 2019-07-07 20:57 | ER Document Report ---
ED General <GURWINDER GALLAGHER IV - Last Filed: 07/27/19 00:57> - General Mode of Arrival: Ambulatory TRAVEL OUTSIDE OF THE [place] IN LAST 30 DAYS: No <SARAH LIU César - Last Filed: 08/06/19 01:44> - General Chief Complaint: Sickle Cell Crisis Stated Complaint: RIGHT KNEE PAIN Time Seen by Provider: 07/07/19 17:35 Primary Care Provider: ANDREW WILLIS MD [Primary Care Provider] - Follow up as needed - HPI Notes: 24-year-old male with history of sickle cell anemia presents complaining of left-sided chest pain and left shoulder pain. Patient states his symptoms are similar to his prior sickle cell pain crisis episodes. Patient denies fever, chills, dyspnea. Patient states his pain is usually helped with Dilaudid and he is usually also given Benadryl to help with the itching from the Dilaudid. Patient states movement of his left upper extremity worsens the pain and nothing alleviates the pain. (GURWINDER GALLAGHER IV) - Related Data Allergies/Adverse Reactions: Coconut * [Coconut] Allergy (Mild, Verified 07/21/19 15:58) apixaban [From Eliquis] Allergy (Verified 07/21/19 15:58) rivaroxaban [From Xarelto] Allergy (Verified 07/21/19 15:58) transpore tape Allergy (Mild, Uncoded 07/21/19 15:58) Hives Past Medical History - General Information source: Patient - Social History Smoking Status: Never Smoker Family History: Reviewed & Not Pertinent <GURWINDER GALLAGHER IV - Last Filed: 07/27/19 00:57> - General Information source: Patient - Social History Smoking Status: Unknown if Ever Smoked Family History: Reviewed & Not Pertinent, Arthritis, DM, Hypertension, Other - Sickle cell trait both parents and asthma Patient has suicidal ideation: No Patient has homicidal ideation: No Pulmonary Medical History: Reports: Hx Asthma, Hx Pneumonia Renal/ Medical History: Denies: Hx Peritoneal Dialysis Musculoskeletal Medical History: Reports Hx Musculoskeletal Deformity - Pain to multiple areas mostly right knee due to sickle cell anemia Past Surgical History: Reports: Hx Abdominal Surgery - Gallstones removal, Hx Cholecystectomy, Hx Orthopedic Surgery - Fluid drained from right foot, Hx Vascular Surgery - Port placementx2 (failed) - Immunizations Immunizations up to date: Yes Hx Diphtheria, Pertussis, Tetanus Vaccination: Yes Hx Pneumococcal Vaccination: 01/15/13 <SARAH LIU - Last Filed: 08/06/19 01:44> Other: History of sickle cell anemia (GURWINDER GALLAGHER IV) Review of Systems - Review of Systems Constitutional: No symptoms reported EENT: No symptoms reported Cardiovascular: Chest pain Respiratory: No symptoms reported Gastrointestinal: No symptoms reported Genitourinary: No symptoms reported Male Genitourinary: No symptoms reported Musculoskeletal: Joint pain Skin: No symptoms reported Hematologic/Lymphatic: No symptoms reported Neurological/Psychological: No symptoms reported -: Yes All other systems reviewed and negative <GURWINDER GALLAGHER IV - Last Filed: 07/27/19 00:57> Physical Exam <GURWINDER GALLAGHER IV - Last Filed: 07/27/19 00:57> - Vital signs Vitals: Temp Pulse Resp BP Pulse Ox 98.4 F 114 H 20 136/92 H 95 07/07/19 17:24 07/07/19 17:24 07/07/19 17:24 07/07/19 17:24 07/07/19 17:24 - Notes Notes: PHYSICAL EXAMINATION: GENERAL: Well-appearing, well-nourished and in no acute distress. HEAD: Atraumatic, normocephalic. EYES: Pupils equal round and reactive to light, extraocular movements intact, sclera anicteric, conjunctiva are normal. ENT: nares patent, oropharynx clear without exudates. Moist mucous membranes. NECK: Normal range of motion, supple without lymphadenopathy LUNGS: Breath sounds clear to auscultation bilaterally and equal. No wheezes rales or rhonchi. HEART: Regular rate and rhythm without murmurs ABDOMEN: Soft, nontender, normoactive bowel sounds. No guarding, no rebound. No masses appreciated. EXTREMITIES: Normal range of motion, no pitting or edema. No cyanosis. NEUROLOGICAL: No focal neurological deficits. Moves all extremities spontaneously and on command. PSYCH: Normal mood, normal affect. SKIN: Warm, Dry, normal turgor, no rashes or lesions noted. (GURWINDER GALLAGHER IV) Course - Laboratory Result Diagrams: 07/07/19 18:15 07/07/19 18:15 <GURWINDER GALLAGHER IV - Last Filed: 07/27/19 00:57> - Laboratory Result Diagrams: 07/07/19 18:15 07/07/19 18:15 <SARAH LIU - Last Filed: 08/06/19 01:44> - Vital Signs Vital signs: Temp Pulse Resp BP Pulse Ox 98.4 F 119 H 18 163/111 H 97 07/07/19 21:15 07/07/19 21:15 07/07/19 21:15 07/07/19 21:15 07/07/19 21:15 - Laboratory Laboratory results interpreted by me: 07/07/19 07/07/19 18:15 18:15 RBC 4.26 L MCV 103 H MCH 36.2 H RDW 16.6 H Glucose 121 H Alkaline Phosphatase 133 H Discharge <GURWINDER GALLAGHER IV - Last Filed: 07/27/19 00:57> <SARAH LIU - Last Filed: 08/06/19 01:44> - Discharge Clinical Impression: Sickle cell pain crisis Condition: Good Disposition: HOME, SELF-CARE Additional Instructions: Please call your regular provider who follows for sickle cell and alert them of your presentation to the ER today for pain crisis. You reported being back to baseline after 2 IV doses here in the ED. Please return or seek care earlier if you develop any fevers chills sweats nausea vomiting shortness of breath or other concerns. Referrals: ANDREW WILLIS MD [Primary Care Provider] - Follow up as needed
[2019-07-07 21:16] VITALS: BP 163/111
== END 2019-07-07 21:26 | disposition home or self-care (01) ==
LOC: ER 17:20
DX: D57.00 Hb-SS disease with crisis, unspecified (principal); M25.561 Pain in right knee; R07.9 Chest pain, unspecified; M25.512 Pain in left shoulder; Z88.8 Allergy status to other drugs, medicaments and biological substances; J45.909 Unspecified asthma, uncomplicated
CPT/HCPCS: 96376; 99283; 96361; 96374; 96375; 36415; 85025; 85045; 80053; J1200; J1170; J7030

== ENCOUNTER 2019-07-17 13:22 | Emergency (ER) | payer MEDICAID ==
--- NOTE | 2019-07-17 14:33 | ER Document Report ---
ED Medical Screen (RME) - General Chief Complaint: Sickle Cell Crisis Stated Complaint: KNEE PAIN Time Seen by Provider: 07/17/19 14:30 Primary Care Provider: ANDREW WILLIS MD [Primary Care Provider] - Follow up as needed Notes: 24-year-old male with sickle cell disease presents to the emergency department and sickle cell crisis. Patient states that he is having some right knee pain which is his usual spot. He said it is worse in the winter and he last had a flareup about a week and half ago. He said his usual regimen is Dilaudid 2 mg IV with Benadryl 25 mg IV, IV fluids. Patient denies chest pain, patient is not hypoxic. Exam: Well-appearing no acute distress, patient does have tenderness to palpation over the right knee. I have greeted and performed a rapid initial assessment of this patient. A comprehensive ED assessment and evaluation of the patient, analysis of test results and completion of medical decision making process will be conducted by an additional ED providers. TRAVEL OUTSIDE OF THE [place] IN LAST 30 DAYS: No - Related Data Allergies/Adverse Reactions: Coconut * [Coconut] Allergy (Mild, Verified 07/17/19 14:13) apixaban [From Eliquis] Allergy (Verified 07/17/19 14:13) rivaroxaban [From Xarelto] Allergy (Verified 07/17/19 14:13) transpore tape Allergy (Mild, Uncoded 07/17/19 14:13) Hives Home Medications: sickle cell Past Medical History - Social History Chew tobacco use (# tins/day): No Frequency of alcohol use: Rare Drug Abuse: None Family history: None Pulmonary Medical History: Reports: Hx Asthma, Hx Pneumonia Renal/ Medical History: Denies: Hx Peritoneal Dialysis Musculoskeltal Medical History: Reports Hx Musculoskeletal Deformity - Pain to m ultiple areas mostly right knee due to sickle cell anemia Past Surgical History: Reports: Hx Abdominal Surgery - Gallstones removal, Hx Cholecystectomy, Hx Orthopedic Surgery - Fluid drained from right foot, Hx Vascular Surgery - Port placementx2 (failed) - Immunizations Immunizations up to date: Yes Hx Diphtheria, Pertussis, Tetanus Vaccination: Yes Physical Exam - Vital signs Vitals: Temp Pulse Resp BP Pulse Ox 98.1 F 117 H 18 138/91 H 97 07/17/19 13:25 07/17/19 13:25 07/17/19 13:25 07/17/19 13:25 07/17/19 13:25 Course - Vital Signs Vital signs: Temp Pulse Resp BP Pulse Ox 98.1 F 117 H 18 138/91 H 97 07/17/19 13:25 07/17/19 13:25 07/17/19 13:25 07/17/19 13:25 07/17/19 13:25 Doctor's Discharge - Discharge Referrals: ANDREW WILLIS MD [Primary Care Provider] - Follow up as needed
[2019-07-17] MEDS ORDERED: DIPHENHYDRAMINE HCL 50 MG/ML VIAL IV ONE (14:34)
[2019-07-17] MEDS ORDERED: HYDROMORPHONE HCL INJ/PF 2 MG/ML AMPULE IV ONE ×2 (14:34→18:12)
[2019-07-17] MEDS ORDERED: NORMAL SALINE 1000 ML 1,000 ML IV ONE ×2 (16:12→18:12)
[2019-07-17 17:08] LABS: HEMATOCRIT 47.7 % (37.9-51.0); HEMOGLOBIN 16.3 g/dL (13.5-17.0); MEAN CORPUSCULAR HEMOGLOBIN 34.8 pg (27.0-33.4); MEAN CORPUSCULAR HGB CONC 34.1 g/dL (32.0-36.0); MEAN CORPUSCULAR VOLUME 102 fl (80-97); PLATELET COUNT 203 10^3/uL (150-450); RED BLOOD COUNT 4.67 10^6/uL (4.35-5.55); RED CELL DISTRIBUTION WIDTH 15.4 % (11.5-14.0); WHITE BLOOD COUNT 6.2 10^3/uL (4.0-10.5)
[2019-07-17] MEDS ORDERED: HYDROMORPHONE HCL INJ/PF 2 MG/ML AMPULE ONE (17:14)
[2019-07-17 17:21] LABS: ALBUMIN 5.1 g/dL (3.5-5.0); ALKALINE PHOSPHATASE 167 U/L (38-126); ANION GAP 12 (5-19); ASPARTATE AMINO TRANSFERASE 56 U/L (17-59); BILIRUBIN,DIRECT 0.1 mg/dL (0.0-0.4); BILIRUBIN,TOTAL 0.5 mg/dL (0.2-1.3); BLOOD UREA NITROGEN 21 mg/dL (7-20); CALCIUM 10.1 mg/dL (8.4-10.2); CARBON DIOXIDE 27 mmol/L (22-30); CHLORIDE 104 mmol/L (98-107); GLUCOSE 118 mg/dL (75-110); POTASSIUM 4.6 mmol/L (3.6-5.0); TOTAL PROTEIN 8.5 g/dL (6.3-8.2)
[2019-07-17 17:51] LABS: ABSOLUTE LYMPHOCYTES# (MANUAL) 1.9 10^3/uL (0.5-4.7); ABSOLUTE MONOCYTES # (MANUAL) 0.6 10^3/uL (0.1-1.4); ANISOCYTOSIS SLIGHT; BAND NEUTROPHILS % (MANUAL) 2 % (3-5); BASOPHILS % (MANUAL) 2 % (0-2); EOSINOPHILS % (MANUAL) 4 % (0-6); LYMPHOCYTES % (MANUAL) 31 % (13-45); MONOCYTES % (MANUAL) 9 % (3-13); PLATELET COMMENT ADEQUATE; SEGMENTED NEUTROPHILS % (MAN) 52 % (42-78); TOTAL CELLS COUNTED 100
[2019-07-17 18:09] LABS: ABSOLUTE RETICS # 0.038 10^6/uL (0.028-0.122)
[2019-07-17] MEDS ORDERED: KETOROLAC TROMETHAMINE INJ/PF 30 MG/1 ML SDV IV ONE (18:12)
--- NOTE | 2019-07-17 19:10 | ER Document Report ---
ED General - General Chief Complaint: Sickle Cell Crisis Stated Complaint: KNEE PAIN Time Seen by Provider: 07/17/19 14:30 Primary Care Provider: ANDREW WILLIS MD [Primary Care Provider] - Follow up as needed TRAVEL OUTSIDE OF THE [place] IN LAST 30 DAYS: No - HPI Notes: Patient is a 24-year-old male who presents the emergency department for evaluation of right knee pain. He has a history of sickle cell anemia. He states this is normally where he has his flares. He states his last flare was about 10 to 12 days ago. He denies any associated fever. No chest pain. No s hortness of breath. No other associated symptoms. He states the oxycodone that he takes at home is not helpful. - Related Data Allergies/Adverse Reactions: Coconut * [Coconut] Allergy (Mild, Verified 07/17/19 14:13) apixaban [From Eliquis] Allergy (Verified 07/17/19 14:13) rivaroxaban [From Xarelto] Allergy (Verified 07/17/19 14:13) transpore tape Allergy (Mild, Uncoded 07/17/19 14:13) Hives Home Medications: List reviewed, please see chart Past Medical History - General Information source: Patient - Social History Smoking Status: Never Smoker Chew tobacco use (# tins/day): No Frequency of alcohol use: Rare Drug Abuse: None Family History: Reviewed & Not Pertinent, Arthritis, DM, Hypertension, Other - Sickle cell trait both parents and asthma Patient has suicidal ideation: No Patient has homicidal ideation: No - Medical History Medical History: Other - Sickle cell anemia Pulmonary Medical History: Reports: Hx Asthma, Hx Pneumonia Renal/ Medical History: Denies: Hx Peritoneal Dialysis Musculoskeletal Medical History: Reports Hx Musculoskeletal Deformity - Pain to multiple areas mostly right knee due to sickle cell anemia Past Surgical History: Reports: Hx Abdominal Surgery - Gallstones removal, Hx Cholecystectomy, Hx Orthopedic Surgery - Fluid drained from right foot, Hx Vascular Surgery - Port placementx2 (failed) - Immunizations Immunizations up to date: Yes Hx Diphtheria, Pertussis, Tetanus Vaccination: Yes Hx Pneumococcal Vaccination: 01/15/13 Review of Systems - Review of Systems Constitutional: No symptoms reported EENT: No symptoms reported Cardiovascular: No symptoms reported Respiratory: No symptoms reported Gastrointestinal: No symptoms reported Genitourinary: No symptoms reported Musculoskeletal: See HPI Skin: No symptoms reported Neurological/Psychological: No symptoms reported Physical Exam - Vital signs Vitals: Temp Pulse Resp BP Pulse Ox 98.1 F 117 H 18 138/91 H 97 07/17/19 13:25 07/17/19 13:25 07/17/19 13:25 07/17/19 13:25 07/17/19 13:25 - Notes Notes: Vital signs reviewed, please refer to chart. Head is normocephalic, atraumatic. Pupils equal round, reactive to light. Neck is supple without meningismus. Heart is regular rate and rhythm. Lungs are clear to auscultation bilaterally. Abdomen is soft, nontender, normoactive bowel sounds throughout. Extremities without cyanosis, clubbing. Posterior calves are nontender. Examination of the right knee reveals no obvious deformity. No associated calor, erythema, edema. He has full range of motion although this does elicit some pain. Negative Julisa's. Neurovascularly intact distally. Skin is warm and dry. Course - Re-evaluation Re-evalutation: 07/17/19 19:09 Patient presents to the emergency department for evaluation. This is typical of his sickle cell. He was given a total of 3 mg of Dilaudid, 2 L of fluid, and Toradol 30 mill grams IV. He is feeling significantly improved. His laboratory investigations showed no significant abnormalities given his baseline. We will send him home to follow-up with primary care, return to the ED with worsening. - Vital Signs Vital signs: Temp Pulse Resp BP Pulse Ox 98.1 F 117 H 18 138/91 H 97 07/17/19 13:25 07/17/19 13:25 07/17/19 13:25 07/17/19 13:25 07/17/19 13:25 - Laboratory Result Diagrams: 07/17/19 16:46 07/17/19 16:46 Laboratory results interpreted by me: 07/17/19 07/17/19 16:46 16:46 MCV 102 H MCH 34.8 H RDW 15.4 H Band Neutrophils % 2 L BUN 21 H Glucose 118 H Alkaline Phosphatase 167 H Total Protein 8.5 H Albumin 5.1 H Discharge - Discharge Clinical Impression: Sickle cell pain crisis Condition: Stable Disposition: HOME, SELF-CARE Instructions: Sickle Cell Crisis ([facility]) Additional Instructions: Rest, stay well-hydrated. Continue her medications as prescribed. Return to the ED with worsening or new concerning symptoms of any sort. Referrals: ANDREW WILLIS MD [Primary Care Provider] - Follow up as needed
[2019-07-17 19:38] VITALS: BP 144/86
== END 2019-07-17 19:38 | disposition home or self-care (01) ==
LOC: ER 13:22
DX: D57.00 Hb-SS disease with crisis, unspecified (principal); M25.561 Pain in right knee; Z79.891 Long term (current) use of opiate analgesic; J45.909 Unspecified asthma, uncomplicated; Z91.018 Allergy to other foods; Z88.8 Allergy status to other drugs, medicaments and biological substances
CPT/HCPCS: 36415; 85025; 85045; 80053; J1200; J1885; J1170; J7030; 96361; 96374; 96375; 96376; 99283

== ENCOUNTER 2019-07-21 15:36 | Emergency (ER) | payer MEDICAID ==
[2019-07-21 16:04] VITALS: BP 132/94
[2019-07-21] MEDS ORDERED: NORMAL SALINE 1000 ML 1,000 ML IV ONE (16:06)
[2019-07-21] MEDS ORDERED: DIPHENHYDRAMINE HCL 50 MG/ML VIAL IV ONE ×2 (16:06→19:26)
[2019-07-21] MEDS ORDERED: HYDROMORPHONE HCL INJ/PF 2 MG/ML AMPULE IV ONE ×2 (16:06→19:26)
--- NOTE | 2019-07-21 16:11 | ER Document Report ---
ED Medical Screen (RME) - General Chief Complaint: Chest Pain Stated Complaint: CHEST PAIN Time Seen by Provider: 07/21/19 15:56 Primary Care Provider: ANDREW WILLIS MD [Primary Care Provider] - Follow up as needed Notes: Patient is a 24-year-old male who presents the emergency department with a chief complaint of chest pain. Patient states that he is a sickle cell patient and patient states that it feels like he is got cramps in his chest. Patient is also receiving bone marrow transplants. Patient states that he also has asthma. Patient states that he has not taken his pain medications today. Due to the chest pain, he decided to come to the emergency department to be evaluated. Patient also has a history of hypertension. He currently takes carvedilol and amlodipine. Exam: S1, S2. I have greeted and performed a rapid initial assessment of this patient. A comprehensive ED assessment and evaluation of the patient, analysis of test results and completion of medical decision making process will be conducted by an additional ED providers. TRAVEL OUTSIDE OF THE [place] IN LAST 30 DAYS: No - Related Data Allergies/Adverse Reactions: Coconut * [Coconut] Allergy (Mild, Verified 07/21/19 15:58) apixaban [From Eliquis] Allergy (Verified 07/21/19 15:58) rivaroxaban [From Xarelto] Allergy (Verified 07/21/19 15:58) transpore tape Allergy (Mild, Uncoded 07/21/19 15:58) Hives Past Medical History - Social History Family history: None Pulmonary Medical History: Reports: Hx Asthma, Hx Pneumonia Renal/ Medical History: Denies: Hx Peritoneal Dialysis Musculoskeltal Medical History: Reports Hx Musculoskeletal Deformity - Pain to multiple areas mostly right knee due to sickle cell anemia Past Surgical History: Reports: Hx Abdominal Surgery - Gallstones removal, Hx Cholecystectomy, Hx Orthopedic Surgery - Fluid drained from right foot, Hx Vascular Surgery - Port placementx2 (failed) - Immunizations Immunizations up to date: Yes Hx Diphtheria, Pertussis, Tetanus Vaccination: Yes Physical Exam - Vital signs Vitals: Temp Pulse Resp BP Pulse Ox 98.8 F 100 18 132/94 H 100 07/21/19 15:57 07/21/19 15:57 07/21/19 15:57 07/21/19 15:57 07/21/19 15:57 Course - Vital Signs Vital signs: Temp Pulse Resp BP Pulse Ox 98.8 F 100 18 132/94 H 100 07/21/19 15:57 07/21/19 15:57 07/21/19 15:57 07/21/19 15:57 07/21/19 15:57 Doctor's Discharge - Discharge Referrals: ANDREW WILLIS MD [Primary Care Provider] - Follow up as needed
--- NOTE | 2019-07-21 16:26 | RADIOLOGY REPORT (SQ) ---
EXAM DESCRIPTION: CHEST SINGLE VIEW COMPLETED DATE/TIME: 07/21/2019 4:15 pm REASON FOR STUDY: chest pain; sickle cell COMPARISON: 06/13/2019 EXAM PARAMETERS: NUMBER OF VIEWS: One view. TECHNIQUE: Single frontal radiographic view of the chest acquired. RADIATION DOSE: NA LIMITATIONS: None. FINDINGS: LUNGS AND PLEURA: No opacities, masses or pneumothorax. Unchanged blunting of the right c ostophrenic angle, likely scarring. No significant pleural effusion. Stable chronic interstitial ch anges. MEDIASTINUM AND HILAR STRUCTURES: No masses. Contour normal. HEART AND VASCULAR STRUCTURES: Heart normal in size. Normal vasculature. BONES: No acute findings. Sclerosis of the humeral heads compatible with avascular necrosis, stable. HARDWARE: None in the chest. OTHER: Prior cholecystectomy. IMPRESSION: Stable sequelae of sickle cell without evidence of acute cardiopulmonary process. TECHNICAL DOCUMENTATION: JOB ID: [id number] [employer]- All Rights Reserved Reading location - IP/workstation name: [email or web address]
--- NOTE | 2019-07-21 16:44 | ER Document Report ---
ED General - General Chief Complaint: Chest Pain Stated Complaint: CHEST PAIN Time Seen by Provider: 07/21/19 15:56 Primary Care Provider: ANDREW WILLIS MD [Primary Care Provider] - Follow up as needed TRAVEL OUTSIDE OF THE [place] IN LAST 30 DAYS: No - HPI Notes: Patient is a 24-year-old male with a history of sickle cell status post transfusion about 7 to 8 months ago who presents complaining of chest wall pain that started earlier today. Patient states he is scheduled to see [facility] again next week. Patient states that the pain does not radiate. He has not had any recent illness. He is able to eat and drink without difficulty. He is otherwise urinating normally and having normal bowel movements. Denies any headache, fever, head injury, neck pain, URI, sore throat, palpitations, syncope, cough, shortness of breath, wheeze, dyspnea, abdominal pain, nausea/vomiting/diarrhea, urinary retention, dysuria, hematuria, or rash. - Related Data Allergies/Adverse Reactions: Coconut * [Coconut] Allergy (Mild, Verified 07/21/19 15:58) apixaban [From Eliquis] Allergy (Verified 07/21/19 15:58) rivaroxaban [From Xarelto] Allergy (Verified 07/21/19 15:58) transpore tape Allergy (Mild, Uncoded 07/21/19 15:58) Hives Past Medical History - Social History Smoking Status: Never Smoker Family History: Reviewed & Not Pertinent, Arthritis, DM, Hypertension, Other - Sickle cell trait both parents and asthma Patient has suicidal ideation: No Patient has homicidal ideation: No Pulmonary Medical History: Reports: Hx Asthma, Hx Pneumonia Renal/ Medical History: Denies: Hx Peritoneal Dialysis Musculoskeletal Medical History: Reports Hx Musculoskeletal Deformity - Pain to multiple areas mostly right knee due to sickle cell anemia Past Surgical History: Reports: Hx Abdominal Surgery - Gallstones removal, Hx Cholecystectomy, Hx Orthopedic Surgery - Fluid drained from right foot, Hx Vascular Surgery - Port placementx2 (failed) - Immunizations Immunizations up to date: Yes Hx Diphtheria, Pertussis, Tetanus Vaccination: Yes Hx Pneumococcal Vaccination: 01/15/13 Review of Systems - Review of Systems -: Yes All other systems reviewed and negative Physical Exam - Vital signs Vitals: Temp Pulse Resp BP Pulse Ox 98.8 F 100 18 132/94 H 100 11/19/19 15:57 07/21/19 15:57 07/21/19 15:57 07/21/19 15:57 07/21/19 15:57 - Notes Notes: PHYSICAL EXAMINATION: GENERAL: Well-appearing, well-nourished and in no acute distress. HEAD: Atraumatic, normocephalic. EYES: Pupils equal round and reactive to light, extraocular movements intact, sclera anicteric, conjunctiva are normal. ENT: Nares patent and without discharge. oropharynx clear without exudates. No tonsilar hypertrophy or erythema. Moist mucous membranes. NECK: Normal range of motion, supple without lymphadenopathy Chest: + reproducible moderate tenderness to palpation of the sternal area and reproducible with arm extension/abduction. LUNGS: Breath sounds clear to auscultation bilaterally and equal. No wheezes rales or rhonchi. HEART: Regular rate and rhythm without murmurs, rubs, gallops. ABDOMEN: Soft, nontender, nondistended abdomen. No guarding, no rebound. Normal bowel sounds present. No CVA tenderness bilaterally. Musculoskeletal: FROM to passive/active. Strength 5+/5. Jeannine neg. No asymmetry to LE's. Extremities: No cyanosis, clubbing, or edema b/l. Peripheral pulses 2+. Capillary refill less than 3 seconds. NEUROLOGICAL: Normal speech, normal gait. PSYCH: Normal mood, normal affect. SKIN: Warm, Dry, normal turgor, no rashes or lesions noted. Course - Re-evaluation Re-evalutation: 07/21/19 19:27 Patient is an afebrile, well-hydrated, 24-year-old male who presents to the ED with mild sickle cell crisis with pain to his chest wall. Vitals are acceptable. He has no significant tachycardia, tachypnea, or hypoxia. PE is otherwise unremarkable aside from reproducible tenderness with palp and ROM, since resolved. CBC, reticulocyte count, CMP, Trop, EKG, CXR. He is tolerating p.o. without any difficulties. Patient states that he is feeling much better and would like to go home. He does have an appointment scheduled with a specialist next week. No other labs or imaging warranted at this time based on H&P. Low suspicion for any acute chest syndrome, sepsis, meningitis, severe dehydration. Conservative measures otherwise for symptoms. Recheck with your PCM in 3-5 days as well. Return to the ED with any worsening/concerning symptoms otherwise as reviewed discharge. Patient is in agreement. - Vital Signs Vital signs: Temp Pulse Resp BP Pulse Ox 98.8 F 100 18 132/94 H 100 07/21/19 15:57 07/21/19 15:57 07/21/19 15:57 07/21/19 15:57 07/21/19 15:57 - Laboratory Result Diagrams: 07/21/19 16:47 07/21/19 16:47 Laboratory results interpreted by me: 07/21/19 07/21/19 16:47 16:47 Hgb 17.4 H Hct 51.1 H MCV 102 H MCH 34.7 H RDW 15.7 H Sodium 146.8 H Calcium 10.5 H Alkaline Phosphatase 154 H Total Protein 9.6 H Albumin 5.7 H Discharge - Discharge Clinical Impression: Sickle cell crisis, Chest wall pain Condition: Stable Disposition: HOME, SELF-CARE Instructions: Chest Wall Pain ([facility]) Additional Instructions: Maintain adequate fluid and food intake Take home medications as directed Healthy diet ice, heat as needed Tylenol/motrin Monitor blood pressure daily and keep a log Monitor symptoms for any acute changes Recheck with your PCM in 3-5 days Keep consult with specialist next week Return to the ED with any worsening symptoms and/or development of fever, headache, chest pain, palpitations, syncope, shortness of breath, trouble lilly athing, abdominal pain, n/v/d, blood in stool/urine, loss of control of bowel/bladder, urinary retention, muscle weakness/paralysis, numbness/tingling, or other worsening symptoms that are concerning to you. Forms: Elevated Blood Pressure Referrals: ANDREW WILLIS MD [Primary Care Provider] - Follow up as needed
[2019-07-21 17:09] LABS: ABSOLUTE RETICS # 0.035 10^6/uL (0.028-0.122); HEMATOCRIT 51.1 % (37.9-51.0); HEMOGLOBIN 17.4 g/dL (13.5-17.0); MEAN CORPUSCULAR HEMOGLOBIN 34.7 pg (27.0-33.4); MEAN CORPUSCULAR HGB CONC 34.2 g/dL (32.0-36.0); MEAN CORPUSCULAR VOLUME 102 fl (80-97); PLATELET COUNT 220 10^3/uL (150-450); RED BLOOD COUNT 5.02 10^6/uL (4.35-5.55); RED CELL DISTRIBUTION WIDTH 15.7 % (11.5-14.0); WHITE BLOOD COUNT 5.6 10^3/uL (4.0-10.5)
[2019-07-21] MEDS: HYDROMORPHONE HCL INJ/PF 2 MG/ML AMPULE IV PRN ×2 (17:09→18:28)
[2019-07-21 17:27] LABS: ALBUMIN 5.7 g/dL (3.5-5.0); ALKALINE PHOSPHATASE 154 U/L (38-126); ANION GAP 15 (5-19); ASPARTATE AMINO TRANSFERASE 44 U/L (17-59); BILIRUBIN,DIRECT 0.2 mg/dL (0.0-0.4); BILIRUBIN,TOTAL 0.7 mg/dL (0.2-1.3); BLOOD UREA NITROGEN 19 mg/dL (7-20); CALCIUM 10.5 mg/dL (8.4-10.2); CARBON DIOXIDE 25 mmol/L (22-30); CHLORIDE 107 mmol/L (98-107); GLUCOSE 104 mg/dL (75-110); POTASSIUM 4.5 mmol/L (3.6-5.0); TOTAL PROTEIN 9.6 g/dL (6.3-8.2)
[2019-07-21 17:31] LABS: ABSOLUTE LYMPHOCYTES# (MANUAL) 1.8 10^3/uL (0.5-4.7); ABSOLUTE MONOCYTES # (MANUAL) 0.5 10^3/uL (0.1-1.4); BASOPHILS % (MANUAL) 0 % (0-2); EOSINOPHILS % (MANUAL) 4 % (0-6); LYMPHOCYTES % (MANUAL) 30 % (13-45); MONOCYTES % (MANUAL) 9 % (3-13); NUCLEATED RED BLOOD CELLS 1 /100 WBC (0); SEGMENTED NEUTROPHILS % (MAN) 55 % (42-78); TOTAL CELLS COUNTED 100
[2019-07-21 17:32] LABS: ANISOCYTOSIS SLIGHT; PLATELET COMMENT ADEQUATE; TARGET CELLS 1+
--- NOTE | 2019-07-21 22:40 | EKG REPORT ---
SEVERITY:- NORMAL ECG - SINUS RHYTHM : Confirmed by: Howard Min MD 21-Jul-2019 22:40:03
== END 2019-07-21 20:10 | disposition home or self-care (01) ==
LOC: ER 15:36
DX: D57.00 Hb-SS disease with crisis, unspecified (principal); R07.89 Other chest pain; J45.909 Unspecified asthma, uncomplicated; Z91.018 Allergy to other foods; Z88.8 Allergy status to other drugs, medicaments and biological substances
CPT/HCPCS: 93005; 36415; 85025; 85045; 80053; 84484; 71045; 93010; J1200; J1170; J7030; 96361; 96374; 96375; 96376; 99285

== ENCOUNTER 2019-07-26 22:35 | Emergency (ER) | payer MEDICAID ==
[2019-07-26] MEDS ORDERED: NORMAL SALINE 1000 ML 1,000 ML IV ONE (23:54)
[2019-07-27] MEDS ORDERED: DIPHENHYDRAMINE HCL 50 MG/ML VIAL IV ONE ×2 (00:56→02:54)
[2019-07-27] MEDS ORDERED: HYDROMORPHONE HCL INJ/PF 2 MG/ML AMPULE IV ONE ×3 (00:56→02:54)
--- NOTE | 2019-07-27 01:05 | ER Document Report ---
ED General - General Chief Complaint: Sickle Cell Crisis Stated Complaint: LEFT SHOULDER PAIN/CHEST PAIN Time Seen by Provider: 07/27/19 00:52 Primary Care Provider: ANDREW WILLIS MD [Primary Care Provider] - Follow up as needed TRAVEL OUTSIDE OF THE [place] IN LAST 30 DAYS: No - HPI Notes: 24-year-old male with a history of sickle cell anemia presents complaining of left shoulder and chest pain. Patient states movement makes the pain worse. Patient states pain is similar to his prior sickle cell pain crisis episodes. Patient denies fever or shortness of breath. - Related Data Allergies/Adverse Reactions: Coconut * [Coconut] Allergy (Mild, Verified 07/21/19 15:58) apixaban [From Eliquis] Allergy (Verified 07/21/19 15:58) rivaroxaban [From Xarelto] Allergy (Verified 07/21/19 15:58) transpore tape Allergy (Mild, Uncoded 07/21/19 15:58) Hives Home Medications: acyclovair 400 mg bid prednisone 10 mg. gabapentin 300 mg tid rapaune 1.5 ml. carvedilol 25 mg q12h cymbalta 60 mg qday. narcan prn oxycodone 10 mg prn. fentanyl 50 mcg patch Past Medical History - General Information source: Patient - Social History Smoking Status: Never Smoker Frequency of alcohol use: None Drug Abuse: None Family History: Reviewed & Not Pertinent, Arthritis, DM, Hypertension, Other - Sickle cell trait both parents and asthma Patient has suicidal ideation: No Patient has homicidal ideation: No Pulmonary Medical History: Reports: Hx Asthma, Hx Pneumonia Renal/ Medical History: Denies: Hx Peritoneal Dialysis Musculoskeletal Medical History: Reports Hx Musculoskeletal Deformity - Pain to multiple areas mostly right knee due to sickle cell anemia Past Surgical History: Reports: Hx Abdominal Surgery - Gallstones removal, Hx Cholecystectomy, Hx Orthopedic Surgery - Fluid drained from right foot, Hx Vascular Surgery - Port placementx2 (failed) - Immunizations Immunizations up to date: Yes Hx Diphtheria, Pertussis, Tetanus Vaccination: Yes Hx Pneumococcal Vaccination: 01/15/13 Review of Systems - Review of Systems Constitutional: No symptoms reported EENT: No symptoms reported Cardiovascular: See HPI Respiratory: No symptoms reported Gastrointestinal: No symptoms reported Genitourinary: No symptoms reported Male Genitourinary: No symptoms reported Musculoskeletal: Joint pain Skin: No symptoms reported Hematologic/Lymphatic: No symptoms reported Neurological/Psychological: No symptoms reported -: Yes All other systems reviewed and negative Physical Exam - Vital signs Vitals: Temp Pulse Resp BP Pulse Ox 98.3 F 99 20 124/82 96 07/26/19 22:44 07/26/19 22:44 07/26/19 22:44 07/26/19 22:44 07/26/19 22:44 - Notes Notes: PHYSICAL EXAMINATION: GENERAL: Well-appearing, well-nourished and in no acute distress. HEAD: Atraumatic, normocephalic. EYES: Pupils equal round and reactive to light, extraocular movements intact, sclera anicteric, conjunctiva are normal. ENT: nares patent, oropharynx clear without exudates. Moist mucous membranes. NECK: Normal range of motion, supple without lymphadenopathy LUNGS: Breath sounds clear to auscultation bilaterally and equal. No wheezes rales or rhonchi. HEART: Regular rate and rhythm without murmurs ABDOMEN: Soft, nontender, normoactive bowel sounds. No guarding, no rebound. No masses appreciated. EXTREMITIES: Normal range of motion, no pitting or edema. No cyanosis. NEUROLOGICAL: No focal neurological deficits. Moves all extremities spontaneously and on command. PSYCH: Normal mood, normal affect. SKIN: Warm, Dry, normal turgor, no rashes or lesions noted. Course - Re-evaluation Re-evalutation: 07/27/19 03:00 Patient states his pain is improved. - Vital Signs Vital signs: Temp Pulse Resp BP Pulse Ox 98.3 F 99 23 H 135/93 H 100 07/26/19 22:44 07/26/19 22:44 07/27/19 01:01 07/27/19 01:00 07/27/19 01:01 - Laboratory Result Diagrams: 07/27/19 00:51 07/27/19 00:51 Laboratory results interpreted by me: 07/27/19 07/27/19 00:51 00:51 RBC 4.04 L MCV 100 H MCH 34.1 H RDW 16.1 H Chloride 108 H BUN 26 H - EKG Interpretation by Me Additional EKG results interpreted by me: 07/27/19 01:04 EKG performed 07/26/2019 at 2319 hrs. was interpreted by this MD. Findings normal sinus rhythm, rate 93, normal axis, P waves preceding QRS complexes, QRS complexes appear narrow, there is no ST elevation or depression to suggest acute myocardial injury. Impression normal sinus rhythm without acute findings. Discharge - Discharge Clinical Impression: Sickle cell pain crisis Condition: Good Disposition: HOME, SELF-CARE Instructions: Sickle Cell Crisis ([facility]) Additional Instructions: Return to the Emergency Department without delay if any worse. HOME CARE INSTRUCTIONS & INFORMATION: Thank you for choosing us for your medical needs. We hope you're satisfied with the care you received. After you leave, you must properly care for your problem and, at the same time, observe its progress. Any condition can change. Some illnesses can change rapidly over hours or days. If your condition worsens, return to the Emergency Department or see your physician promptly. ABOUT YOUR X-RAYS AND EKG'S: If you had an EKG or X-rays taken, they have been read by the Emergency Physician. The X-rays and EKG's will also be read by a Radiologist or Time Broker within 24 hours. If discrepancies are noted, you will be notified by telephone. Please be certain the ED has a correct telephone number & address where you can be reached. Also, realize that some fractures or abnormalities do not show up on initial X-rays. If your symptoms continue, see your physician. ABOUT YOUR LABORATORY TEST: If you had laboratory tests, the results have been reviewed by the Emergency Physician. Some test results (for example cultures) may not be available for several days. You will be contacted if any test result shows you need additional treatment. Please be certain the ED has a correct telephone number and address where you can be reached. ABOUT YOUR MEDICATIONS: You will receive instructions on how to take your medicine on the prescription label you receive. Additional information may be provided by the Pharmacy. If you have questions afterwards, call the ED for clarification or further instructions. Some prescribed medications may cause drowsiness. Do not perform tasks such as driving a car or operating machinery without consulting your Pharmacist. If you feel you need a refill of pain medication, your condition will need re-evaluation. Please do not call for a refill of any medication. ABOUT YOUR SIGNATURE: Signature of this document acknowledges to followin. Understanding that you received emergency treatment and that you may be released before al medical problems are known or treated. Please be certain the ED has a correct phone number & address where you can be reached. 2. Acknowledgement that you will arrange for follow-up care as recommended. 3. Authorization for the Emergency Physician to provide information to your follow-up Physician in order to maximize your care. AT ANY TIME, IF YOUR SYMPTOMS CHANGE SIGNIFICANTLY OR WORSEN OR YOU DEVELOP NEW SYMPTOMS, RETURN TO THE EMERGENCY DEPARTMENT IMMEDIATELY FOR RE-EVALUATION. OUR GOAL IS TO PROVIDE EXCELLENT MEDICAL CARE! WE HOPE THAT WE HAVE MET YOUR EXPECTATIONS DURING YOUR EMERGENCY DEPARTMENT VISIT AND THAT YOU FEEL YOU HAVE RECEIVED EXCELLENT CARE! Referrals: ANDREW WILLIS MD [Primary Care Provider] - Follow up as needed
[2019-07-27 01:11] LABS: ABSOLUTE RETICS # 0.054 10^6/uL (0.028-0.122); HEMATOCRIT 40.5 % (37.9-51.0); HEMOGLOBIN 13.8 g/dL (13.5-17.0); MEAN CORPUSCULAR HEMOGLOBIN 34.1 pg (27.0-33.4); MEAN CORPUSCULAR VOLUME 100 fl (80-97); PLATELET COUNT 214 10^3/uL (150-450); RED BLOOD COUNT 4.04 10^6/uL (4.35-5.55); RED CELL DISTRIBUTION WIDTH 16.1 % (11.5-14.0); RETICULOCYTE COUNT (AUTO) 1.33 % (0.66-2.85); WHITE BLOOD COUNT 6.1 10^3/uL (4.0-10.5)
[2019-07-27 01:21] LABS: ALBUMIN 4.3 g/dL (3.5-5.0); ALKALINE PHOSPHATASE 123 U/L (38-126); ANION GAP 11 (5-19); ASPARTATE AMINO TRANSFERASE 40 U/L (17-59); BILIRUBIN,DIRECT 0.1 mg/dL (0.0-0.4); BILIRUBIN,TOTAL 0.3 mg/dL (0.2-1.3); BLOOD UREA NITROGEN 26 mg/dL (7-20); CALCIUM 9.7 mg/dL (8.4-10.2); CARBON DIOXIDE 24 mmol/L (22-30); CHLORIDE 108 mmol/L (98-107); GLUCOSE 96 mg/dL (75-110); POTASSIUM 4.3 mmol/L (3.6-5.0); TOTAL PROTEIN 7.1 g/dL (6.3-8.2)
[2019-07-27 01:33] LABS: ABSOLUTE LYMPHOCYTES# (MANUAL) 2.1 10^3/uL (0.5-4.7); ABSOLUTE MONOCYTES # (MANUAL) 0.5 10^3/uL (0.1-1.4); BASOPHILS % (MANUAL) 0 % (0-2); EOSINOPHILS % (MANUAL) 5 % (0-6); LYMPHOCYTES % (MANUAL) 31 % (13-45); MONOCYTES % (MANUAL) 9 % (3-13); SEGMENTED NEUTROPHILS % (MAN) 51 % (42-78); TOTAL CELLS COUNTED 100
[2019-07-27 01:34] LABS: TOXIC GRANULATION 1+; TOXIC VACUOLATION PRESENT
[2019-07-27 01:36] LABS: ANISOCYTOSIS 1+; BURR CELLS 1+; OVALOCYTES 1+; PLATELET COMMENT ADEQUATE; POIKILOCYTOSIS 1+; SCHISTOCYTES SLIGHT; TARGET CELLS SLIGHT; TEAR DROP CELLS SLIGHT
[2019-07-27 03:10] VITALS: BP 129/87
--- NOTE | 2019-07-27 06:39 | EKG REPORT ---
SEVERITY:- NORMAL ECG - SINUS RHYTHM : Confirmed by: Howard Min MD 27-Jul-2019 06:39:29
== END 2019-07-27 03:18 | disposition home or self-care (01) ==
LOC: ER 22:35
DX: D57.00 Hb-SS disease with crisis, unspecified (principal); M25.512 Pain in left shoulder; Z90.49 Acquired absence of other specified parts of digestive tract; Z88.6 Allergy status to analgesic agent
CPT/HCPCS: 36415; 80053; 84484; 85025; 85045; 93005; 93010; J1170; J1200; J7030

== ENCOUNTER 2019-08-03 14:14 | Emergency (ER) | payer MEDICAID ==
[2019-08-03] MEDS ORDERED: METOCLOPRAMIDE HCL INJ/PF 10 MG/2 ML SDV IV ONE (14:47)
[2019-08-03] MEDS ORDERED: KETOROLAC TROMETHAMINE INJ/PF 30 MG/1 ML SDV IV ONE (14:47)
[2019-08-03] MEDS ORDERED: DIPHENHYDRAMINE HCL 50 MG/ML VIAL IV ONE (14:47)
[2019-08-03] MEDS ORDERED: NORMAL SALINE 1000 ML 1,000 ML IV ONE (14:48)
--- NOTE | 2019-08-03 14:50 | ER Document Report ---
ED Medical Screen (RME) - General Chief Complaint: Headache Stated Complaint: HEADACHE Time Seen by Provider: 08/03/19 14:39 Primary Care Provider: ANDREW WILLIS MD [Primary Care Provider] - Follow up as needed Notes: Patient is a 24-year-old male with a history of sickle cell migraines who presents emergency department with chief complaint of low back pain and headache. Patient reports she is having a frontal headache. Patient reports this does feel like his typical migraine. He reports he did attempt to take his fentanyl patch and oxycodone 15 mg without relief. Patient reports his last dose of oxycodone was 9 AM this morning. Patient reports nausea without vomiting. Patient denies chest pain or shortness of breath. Patient also complains of low back pain. Patient reports he does have back pain with his sickle cell crises. Denies fever. TRAVEL OUTSIDE OF THE [place] IN LAST 30 DAYS: No - Related Data Allergies/Adverse Reactions: Coconut * [Coconut] Allergy (Mild, Verified 07/21/19 15:58) apixaban [From Eliquis] Allergy (Verified 07/21/19 15:58) rivaroxaban [From Xarelto] Allergy (Verified 07/21/19 15:58) transpore tape Allergy (Mild, Uncoded 07/21/19 15:58) Hives Home Medications: Oxycodone, Fentanyl, Hydrourea Past Medical History - Social History Family history: None Pulmonary Medical History: Reports: Hx Asthma, Hx Pneumonia Renal/ Medical History: Denies: Hx Peritoneal Dialysis Musculoskeltal Medical History: Reports Hx Musculoskeletal Deformity - Pain to multiple areas mostly right knee due to sickle cell anemia Past Surgical History: Reports: Hx Abdominal Surgery - Gallstones removal, Hx Cholecystectomy, Hx Orthopedic Surgery - Fluid drained from right foot, Hx Vascular Surgery - Port placementx2 (failed) - Immunizations Immunizations up to date: Yes Hx Diphtheria, Pertussis, Tetanus Vaccination: Yes Physical Exam - Vital signs Vitals: Temp Pulse Resp BP Pulse Ox 98.4 F 115 H 20 139/94 H 96 08/03/19 14:21 08/03/19 14:21 08/03/19 14:21 08/03/19 14:21 08/03/19 14:21 - Respiratory Respiratory status: No respiratory distress Chest status: Nontender Breath sounds: Normal Chest palpation: Normal Course - Re-evaluation Re-evalutation: 08/03/19 14:50 I have greeted and performed a rapid initial assessment of this patient. A comprehensive ED assessment and evaluation of the patient, analysis of test results and completion of the medical decision making process will be conducted by additional ED providers. - Vital Signs Vital signs: Temp Pulse Resp BP Pulse Ox 98.4 F 115 H 20 139/94 H 96 08/03/19 14:41 08/03/19 14:41 08/03/19 14:41 08/03/19 14:41 08/03/19 14:41 Doctor's Discharge - Discharge Referrals: ANDREW WILLIS MD [Primary Care Provider] - Follow up as needed
--- NOTE | 2019-08-03 15:42 | RADIOLOGY REPORT (SQ) ---
EXAM DESCRIPTION: CHEST 2 VIEWS COMPLETED DATE/TIME: 08/03/2019 3:29 pm REASON FOR STUDY: sickle cell COMPARISON: 07/21/2019 EXAM PARAMETERS: NUMBER OF VIEWS: two views TECHNIQUE: Digital Frontal and Lateral radiographic views of the chest acquired. RADIATION DOSE: NA LIMITATIONS: none FINDINGS: LUNGS AND PLEURA: Coarse interstitial opacities, stable. Possible trace right effusion ve rsus pleural thickening. Opacities, masses or pneumothorax. No pleural effusion. MEDIASTINUM AND HILAR STRUCTURES: No masses or contour abnormalities. HEART AND VASCULAR STRUCTURES: Heart normal size. No evidence for failure. BONES: Sequelae of osteonecrosis at the bilateral humeral heads. HARDWARE: Prior cholecystectomy. OTHER: No other significant finding. IMPRESSION: No evidence of focal consolidation or other acute cardiopulmonary process. Stable seque lae of sickle cell. TECHNICAL DOCUMENTATION: JOB ID: [id number] [employer]- All Rights Reserved Reading location - IP/workstation name: [email or web address]
--- NOTE | 2019-08-03 16:04 | ER Document Report ---
ED General - General Chief Complaint: Headache Stated Complaint: HEADACHE Time Seen by Provider: 08/03/19 14:39 Primary Care Provider: ANDREW WILLIS MD [ACTIVE STAFF] - Follow up as needed Notes: 24 year old male arrives with complaints of a headache which he feels is on the verge of becoming a migraine similar to what he may get when a crisis starts. He relates a h/o sickle cell s/o bone marrow transplant. TRAVEL OUTSIDE OF THE [place] IN LAST 30 DAYS: No - HPI Onset: This morning Onset/Duration: Gradual Quality of pain: Achy, Throbbing Severity: Mild Associated symptoms: None Exacerbated by: Denies - Related Data Allergies/Adverse Reactions: Coconut * [Coconut] Allergy (Mild, Verified 07/21/19 15:58) apixaban [From Eliquis] Allergy (Verified 07/21/19 15:58) rivaroxaban [From Xarelto] Allergy (Verified 07/21/19 15:58) transpore tape Allergy (Mild, Uncoded 07/21/19 15:58) Hives Home Medications: Oxycodone, Fentanyl, Hydrourea Past Medical History - Social History Smoking Status: Never Smoker Family History: Reviewed & Not Pertinent, Arthritis, DM, Hypertension, Other - Sickle cell trait both parents and asthma Patient has suicidal ideation: No Patient has homicidal ideation: No Pulmonary Medical History: Reports: Hx Asthma, Hx Pneumonia Renal/ Medical History: Denies: Hx Peritoneal Dialysis Musculoskeletal Medical History: Reports Hx Musculoskeletal Deformity - Pain to multiple areas mostly right knee due to sickle cell anemia Past Surgical History: Reports: Hx Abdominal Surgery - Gallstones removal, Hx Cholecystectomy, Hx Orthopedic Surgery - Fluid drained from right foot, Hx Vascular Surgery - Port placementx2 (failed) - Immunizations Immunizations up to date: Yes Hx Diphtheria, Pertussis, Tetanus Vaccination: Yes Hx Pneumococcal Vaccination: 01/15/13 Review of Systems - Review of Systems Constitutional: No symptoms reported EENT: No symptoms reported Cardiovascular: No symptoms reported Respiratory: No symptoms reported Gastrointestinal: No symptoms reported Genitourinary: No symptoms reported Male Genitourinary: No symptoms reported Musculoskeletal: No symptoms reported Skin: No symptoms reported Hematologic/Lymphatic: No symptoms reported Neurological/Psychological: No symptoms reported Physical Exam - Vital signs Vitals: Temp Pulse Resp BP Pulse Ox 98.4 F 115 H 20 139/94 H 96 08/03/19 14:21 08/03/19 14:21 08/03/19 14:21 08/03/19 14:21 08/03/19 14:21 Interpretation: Normal - General General appearance: Appears well, Alert - HEENT Head: Normocephalic, Atraumatic Eyes: Normal Pupils: PERRL - Respiratory Respiratory status: No respiratory distress Chest status: Nontender Breath sounds: Normal Chest palpation: Normal - Cardiovascular Rhythm: Regular Heart sounds: Normal auscultation Murmur: No - Abdominal Inspection: Normal Distension: No distension Bowel sounds: Normal Tenderness: Nontender Organomegaly: No organomegaly - Back Back: Normal, Nontender - Extremities General upper extremity: Normal inspection, Nontender, Normal color, Normal ROM, Normal temperature General lower extremity: Normal inspection, Nontender, Normal color, Normal ROM, Normal temperature, Normal weight bearing. No: Jeannine's sign - Neurological Neuro grossly intact: Yes Cognition: Normal Orientation: AAOx4 [place] Coma Scale Eye Opening: Spontaneous Rodo Coma Scale Verbal: Oriented [place] Coma Scale Motor: Obeys Commands Rodo Coma Scale Total: 15 Speech: Normal Motor strength normal: LUE, RUE, LLE, RLE Sensory: Normal - Psychological Associated symptoms: Normal affect, Normal mood - Skin Skin Temperature: Warm Skin Moisture: Dry Skin Color: Normal Course - Re-evaluation Re-evalutation: 08/03/19 16:49 MDM 24 year old male with sickle cell disease is here with headache but not concerning signs along with this. He actually told me to leave the room a few times as he was busy talking to his mother on his cell phone. He denies fever or chills and no tick bite or flu like symptoms or rash or [place] exposure. This seems likely to be a tension type headache. He has his next follow up at [facility] tomorrow. Additionally he just had blood work done this past week and I see no reason to repeat it at this point. - Vital Signs Vital signs: Temp Pulse Resp BP Pulse Ox 98.4 F 115 H 20 139/94 H 96 08/03/19 14:41 08/03/19 14:41 08/03/19 14:41 08/03/19 14:41 08/03/19 14:41 Discharge - Discharge Clinical Impression: Headache Qualifiers: Headache type: unspecified Headache chronicity pattern: acute headache Intractability: not intractable Qualified Code(s): R51 - Headache Sickle cell anemia Qualifiers: Sickle-cell associated disorders: without crisis Qualified Code(s): D57.1 - Sickle-cell disease without crisis Condition: Good Disposition: HOME, SELF-CARE Instructions: Use of Diphenhydramine, Pain Medication Injection ([facility]), Reglan ([facility]) Additional Instructions: Keep your follow up at [facility] tomorrow. Rest, fluids, medicines as directed. Please return here for any problems or any concerns. Referrals: ANDREW WILLIS MD [ACTIVE STAFF] - Follow up as needed
[2019-08-03] MEDS ORDERED: HYDROMORPHONE HCL INJ/PF 2 MG/ML AMPULE IV ONE (16:41)
[2019-08-03 17:42] VITALS: BP 158/97
== END 2019-08-03 17:42 | disposition home or self-care (01) ==
LOC: ER 14:14
DX: R51 Headache (principal); J45.909 Unspecified asthma, uncomplicated
CPT/HCPCS: 99284; 96361; 96374; 96375; 71046; J1200; J1885; J2765; J1170; J7030

== ENCOUNTER 2019-08-06 19:03 | Emergency (ER) | payer MEDICAID ==
[2019-08-06] MEDS ORDERED: NORMAL SALINE 1000 ML 1,000 ML IV ONE (20:00)
[2019-08-06] MEDS ORDERED: HYDROMORPHONE HCL INJ/PF 2 MG/ML AMPULE IV ONE (20:01)
[2019-08-06] MEDS ORDERED: DIPHENHYDRAMINE HCL 50 MG/ML VIAL IV ONE (20:01)
--- NOTE | 2019-08-06 20:34 | ER Document Report ---
ED Medical Screen (RME) - General Chief Complaint: Sickle Cell Crisis Stated Complaint: RIGHT KNEE PAIN Time Seen by Provider: 08/06/19 19:59 Primary Care Provider: TISHA GOLDBERG MD [Primary Care Provider] - Follow up as needed Mode of Arrival: Ambulatory TRAVEL OUTSIDE OF THE [place] IN LAST 30 DAYS: No - HPI Notes: 08/06/19 20:02 24-year-old male presents to the ED for exacerbation of his sickle cell crisis. Patient states he always presents typically with right knee pain which is the q. that he is having sickle cell crisis exacerbation. Denies any fevers or chills. patient is well-known to [facility]. denies any chest pain shortness of breath nausea vomiting diarrhea I have greeted and performed a rapid initial assessment of this patient. A comprehensive ED assessment and evaluation of the patient, analysis of test results and completion of the medical decision making process will be conducted by additional ED providers. PHYSICAL EXAMINATION: GENERAL: Well-appearing, well-nourished and in no acute distress. HEAD: Atraumatic, normocephalic. EYES: Pupils equal round extraocular movements intact, conjunctiva are normal. ENT: Nares patent NECK: Normal range of motion LUNGS: No respiratory distress Musculoskeletal: Normal range of motion NEUROLOGICAL: Normal speech, normal gait. PSYCH: Normal mood, normal affect. SKIN: Warm, Dry, normal turgor, no rashes or lesions noted. - Related Data Allergies/Adverse Reactions: Coconut * [Coconut] Allergy (Mild, Verified 07/21/19 15:58) apixaban [From Eliquis] Allergy (Verified 07/21/19 15:58) rivaroxaban [From Xarelto] Allergy (Verified 07/21/19 15:58) transpore tape Allergy (Mild, Uncoded 07/21/19 15:58) Hives Home Medications: oxycodone 15 mg q4 as needed. hydrox urea. folic acid Past Medical History - Social History Chew tobacco use (# tins/day): No Drug Abuse: None Family history: None Pulmonary Medical History: Reports: Hx Asthma, Hx Pneumonia Renal/ Medical History: Denies: Hx Peritoneal Dialysis Musculoskeltal Medical History: Reports Hx Musculoskeletal Deformity - Pain to multiple areas mostly right knee due to sickle cell anemia Past Surgical History: Reports: Hx Abdominal Surgery - Gallstones removal, Hx Cholecystectomy, Hx Orthopedic Surgery - Fluid drained from right foot, Hx Vascular Surgery - Port placementx2 (failed) - Immunizations Immunizations up to date: Yes Hx Diphtheria, Pertussis, Tetanus Vaccination: Yes Physical Exam - Vital signs Vitals: Temp Pulse Resp BP Pulse Ox 99.4 F 126 H 18 138/101 H 95 08/06/19 19:21 08/06/19 19:21 08/06/19 19:21 08/06/19 19:21 08/06/19 19:21 Course - Vital Signs Vital signs: Temp Pulse Resp BP Pulse Ox 99.4 F 126 H 18 138/101 H 95 08/06/19 19:57 08/06/19 19:57 08/06/19 19:57 08/06/19 19:57 08/06/19 19:57 Doctor's Discharge - Discharge Referrals: TISHA GOLDBERG MD [Primary Care Provider] - Follow up as needed
[2019-08-06 21:08] LABS: ABSOLUTE BASOPHILS # (AUTO) 0.1 10^3/uL (0.0-0.2); ABSOLUTE EOSINOPHILS # (AUTO) 0.2 10^3/uL (0.0-0.6); ABSOLUTE LYMPHOCYTES (AUTO) 1.5 10^3/uL (0.5-4.7); ABSOLUTE MONOCYTES (AUTO) 0.6 10^3/uL (0.1-1.4); ABSOLUTE NEUT (AUTO) 5.2 10^3/uL (1.7-8.2); ABSOLUTE RETICS # 0.056 10^6/uL (0.028-0.122); BASOPHILS % (AUTO) 1.7 % (0-2); EOSINOPHILS % (AUTO) 3.2 % (0-6); HEMATOCRIT 50.8 % (37.9-51.0); HEMOGLOBIN 17.3 g/dL (13.5-17.0); LYMPHOCYTES % (AUTO) 19.7 % (13-45); MEAN CORPUSCULAR HEMOGLOBIN 34.1 pg (27.0-33.4); MEAN CORPUSCULAR HGB CONC 34.1 g/dL (32.0-36.0); MEAN CORPUSCULAR VOLUME 100 fl (80-97); MONOCYTES % (AUTO) 7.9 % (3-13); PLATELET COUNT 279 10^3/uL (150-450); RED BLOOD COUNT 5.07 10^6/uL (4.35-5.55); RED CELL DISTRIBUTION WIDTH 15.9 % (11.5-14.0); RETICULOCYTE COUNT (AUTO) 1.09 % (0.66-2.85); SEGMENTED NEUTROPHILS % (AUTO) 67.5 % (42-78); TOTAL CELLS COUNTED % (AUTO) 100 %; WHITE BLOOD COUNT 7.8 10^3/uL (4.0-10.5)
[2019-08-06 21:22] LABS: ALBUMIN 5.3 g/dL (3.5-5.0); ALKALINE PHOSPHATASE 143 U/L (38-126); ANION GAP 14 (5-19); ASPARTATE AMINO TRANSFERASE 39 U/L (17-59); BILIRUBIN,DIRECT 0.2 mg/dL (0.0-0.4); BILIRUBIN,TOTAL 0.7 mg/dL (0.2-1.3); BLOOD UREA NITROGEN 20 mg/dL (7-20); CALCIUM 10.4 mg/dL (8.4-10.2); CARBON DIOXIDE 24 mmol/L (22-30); CHLORIDE 104 mmol/L (98-107); GLUCOSE 128 mg/dL (75-110); POTASSIUM 4.6 mmol/L (3.6-5.0); TOTAL PROTEIN 8.6 g/dL (6.3-8.2)
[2019-08-07] MEDS ORDERED: HYDROMORPHONE HCL INJ/PF 2 MG/ML AMPULE IV ONE ×2 (01:16→03:35)
[2019-08-07] MEDS ORDERED: NORMAL SALINE 1000 ML 1,000 ML IV ONE (01:17)
--- NOTE | 2019-08-07 01:22 | ER Document Report ---
ED General - General Chief Complaint: Sickle Cell Crisis Stated Complaint: RIGHT KNEE PAIN Time Seen by Provider: 08/06/19 19:59 Primary Care Provider: TISHA GOLDBERG MD [NO LOCAL MD] - Follow up as needed Mode of Arrival: Ambulatory Notes: Patient is a 24-year-old male that comes emergency department for chief complaint of right knee pain. He has a history of sickle cell anemia. He sta rossi this is especially been noticeable over the past 2 days. He states that this is been bothering him intermittently since the weather turned cold. He denies injury, fever, shortness of breath, chest pain, headache, or any other complaints. 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 Carlos scrap carrier. TRAVEL OUTSIDE OF THE [place] IN LAST 30 DAYS: No - Related Data Allergies/Adverse Reactions: Coconut * [Coconut] Allergy (Mild, Verified 07/21/19 15:58) apixaban [From Eliquis] Allergy (Verified 07/21/19 15:58) rivaroxaban [From Xarelto] Allergy (Verified 07/21/19 15:58) transpore tape Allergy (Mild, Uncoded 07/21/19 15:58) Hives Home Medications: oxycodone 15 mg q4 as needed. hydrox urea. folic acid Past Medical History - General Information source: Patient - Social History Smoking Status: Never Smoker Chew tobacco use (# tins/day): No Drug Abuse: None Lives with: Family Family History: Reviewed & Not Pertinent, Arthritis, DM, Hypertension, Other - Sickle cell trait both parents and asthma Patient has suicidal ideation: No Patient has homicidal ideation: No Pulmonary Medical History: Reports: Hx Asthma, Hx Pneumonia Renal/ Medical History: Denies: Hx Peritoneal Dialysis Musculoskeletal Medical History: Reports Hx Musculoskeletal Deformity - Pain to multiple areas mostly right knee due to sickle cell anemia Past Surgical History: Reports: Hx Abdominal Surgery - Gallstones removal, Hx Cholecystectomy, Hx Orthopedic Surgery - Fluid drained from right foot, Hx Vascular Surgery - Port placementx2 (failed) - Immunizations Immunizations up to date: Yes Hx Diphtheria, Pertussis, Tetanus Vaccination: Yes Hx Pneumococcal Vaccination: 01/15/13 Review of Systems - Review of Systems Constitutional: No symptoms reported EENT: No symptoms reported Cardiovascular: No symptoms reported Respiratory: No symptoms reported Gastrointestinal: No symptoms reported Genitourinary: No symptoms reported Male Genitourinary: No symptoms reported Musculoskeletal: See HPI Skin: No symptoms reported Hematologic/Lymphatic: No symptoms reported Neurological/Psychological: No symptoms reported Physical Exam - Vital signs Vitals: Temp Pulse BP Pulse Ox 99.4 F 122 H 138/101 H 95 08/06/19 19:19 08/06/19 19:19 08/06/19 19:19 08/06/19 19:19 - Notes Notes: GENERAL: Alert, interacts well. No acute distress. HEAD: Normocephalic, atraumatic. EYES: Pupils equal, round, and reactive to light. Extraocular movements intact. ENT: Oral mucosa moist, tongue midline. Oropharynx unremarkable. Airway patent. NECK: Full range of motion. Supple. Trachea midline. LUNGS: Clear to auscultation bilaterally, no wheezes, rales, or rhonchi. No respiratory distress. HEART: Tachycardia, normal rhythm, no murmur ABDOMEN: Soft, non-tender. Non-distended. Bowel sounds present in all 4 quadrants. GENITOURINARY: Deferred EXTREMITIES: Minimal tenderness with palpation over the right knee generally, no noted swelling, erythema. Normal lower examinee exam otherwise with normal range of motion of the knee, normal distal neurovascular exam. No edema, normal radial and dorsalis pedis pulses bilaterally. No cyanosis. BACK: no cervical, thoracic, lumbar midline tenderness. No saddle anesthesia. Moves all extremities in full range of motion. NEUROLOGICAL: Alert and oriented x3. Normal speech. Cranial nerves II through XII grossly intact. PSYCH: Normal affect, normal mood. SKIN: Warm, dry, normal turgor. No rashes or lesions noted. Course - Re-evaluation Re-evalutation: Patient is not in distress on my initial evaluation, he has generalized pain over the knee but there is no erythema, swelling, or loss of range of motion. He is somewhat tachycardic. No shortness of breath, clear lungs, no chest pain, no fever. Examination otherwise unremarkable. CBC, chemistry unremarkable, reticulocyte count and bilirubin are unremarkable. After IV fluids, medications, tachycardia resolved. I reevaluated patient and discussed his situation with his sickle cell pain, he states he feels much better after treatments and he is ready to leave. He has no current complaints. He states he will follow-up with his scrap carrier Dr. Carlos and he will come back if he worsens, this was discussed in detail. Patient states appreciation and agreement. Smiling and well-appearing at time of discharge. - Vital Signs Vital signs: Temp Pulse Resp BP Pulse Ox 98.0 F 102 H 18 148/80 H 100 08/07/19 03:54 08/07/19 03:54 08/07/19 03:54 08/07/19 03:54 08/07/19 03:54 - Laboratory Result Diagrams: 08/06/19 20:42 08/06/19 20:42 Laboratory results interpreted by me: 08/06/19 08/06/19 20:42 20:42 Hgb 17.3 H MCV 100 H MCH 34.1 H RDW 15.9 H Glucose 128 H Calcium 10.4 H Alkaline Phosphatase 143 H Total Protein 8.6 H Albumin 5.3 H Discharge - Discharge Clinical Impression: Sickle cell pain crisis Right knee pain Qualifiers: Chronicity: unspecified Qualified Code(s): M25.561 - Pain in right knee Condition: Stable Disposition: HOME, SELF-CARE Additional Instructions: Follow closely with your scrap carrier for additional evaluation and management. Come back if you are worse including severe worsening pain, fever, shortness of breath, chest pain, or any other concerning symptoms. Referrals: TISHA GOLDBERG MD [NO LOCAL MD] - Follow up as needed
[2019-08-07] MEDS ORDERED: DIPHENHYDRAMINE HCL 50 MG/ML VIAL IV ONE (03:35)
[2019-08-07 03:56] VITALS: BP 148/80
== END 2019-08-07 03:54 | disposition home or self-care (01) ==
LOC: ER 19:03
DX: D57.00 Hb-SS disease with crisis, unspecified (principal); M25.561 Pain in right knee; R00.0 Tachycardia, unspecified; J45.909 Unspecified asthma, uncomplicated; Z79.899 Other long term (current) drug therapy; Z91.018 Allergy to other foods; Z88.8 Allergy status to other drugs, medicaments and biological substances
CPT/HCPCS: 96376; 99283; 96361; 96374; 96375; 36415; 85025; 85045; 80053; J1200 ×2; J1170 ×2; J7030 ×2

== ENCOUNTER 2019-08-11 15:54 | Emergency (ER) | payer MEDICAID ==
[2019-08-11] MEDS ORDERED: HYDROMORPHONE HCL INJ/PF 2 MG/ML AMPULE IV ONE ×3 (16:38→20:44)
[2019-08-11] MEDS ORDERED: DIPHENHYDRAMINE HCL 50 MG/ML VIAL IV ONE ×2 (16:38→20:45)
[2019-08-11] MEDS ORDERED: NORMAL SALINE 1000 ML 1,000 ML IV ONE ×2 (16:38→18:41)
--- NOTE | 2019-08-11 16:41 | ER Document Report ---
ED Medical Screen (RME) - General Chief Complaint: Knee Pain Stated Complaint: RIGHT KNEE PAIN, HEADACHE Time Seen by Provider: 08/11/19 16:37 Primary Care Provider: ANDREW WILLIS MD [Primary Care Provider] - Follow up as needed Information source: Patient TRAVEL OUTSIDE OF THE [place] IN LAST 30 DAYS: No - HPI Notes: 08/11/19 16:40 24-year-old male presents to the emergency room for chief complaint of right knee pain which usually precipitates prior to having a sickle cell crisis. He does have a history of sickle cell anemia. He states this has been more notable over the last couple of days with a intermittent headache. He states he has been bothered more with the weather change with his sickle cell anemia. Denies any injury fever, shortness of breath, chest pain. Patient states he thinks he might be a little dehydrated. He does take oxycodone for his pain and is followed by Dr. Carlos, director of software development I have greeted and performed a rapid initial assessment of this patient. A comprehensive ED assessment and evaluation of the patient, analysis of test results and completion of the medical decision making process will be conducted by additional ED providers. PHYSICAL EXAMINATION: GENERAL: Well-appearing, well-nourished and in no acute distress. HEAD: Atraumatic, normocephalic. EYES: Pupils equal round extraocular movements intact, conjunctiva are normal. ENT: Nares patent NECK: Normal range of motion LUNGS: No respiratory distress Musculoskeletal: Normal range of motion NEUROLOGICAL: Normal speech, normal gait. PSYCH: Normal mood, normal affect. SKIN: Warm, Dry, normal turgor, no rashes or lesions noted. - Related Data Allergies/Adverse Reactions: Coconut * [Coconut] Allergy (Mild, Verified 07/21/19 15:58) apixaban [From Eliquis] Allergy (Verified 07/21/19 15:58) rivaroxaban [From Xarelto] Allergy (Verified 07/21/19 15:58) transpore tape Allergy (Mild, Uncoded 07/21/19 15:58) Hives Past Medical History - Social History Family history: None Pulmonary Medical History: Reports: Hx Asthma, Hx Pneumonia Renal/ Medical History: Denies: Hx Peritoneal Dialysis Musculoskeltal Medical History: Reports Hx Musculoskeletal Deformity - Pain to multiple areas mostly right knee due to sickle cell anemia Past Surgical History: Reports: Hx Abdominal Surgery - Gallstones removal, Hx Cholecystectomy, Hx Orthopedic Surgery - Fluid drained from right foot, Hx Vascular Surgery - Port placementx2 (failed) - Immunizations Immunizations up to date: Yes Hx Diphtheria, Pertussis, Tetanus Vaccination: Yes Physical Exam - Vital signs Vitals: Temp Pulse Resp BP Pulse Ox 98.0 F 104 H 20 125/85 96 08/11/19 16:20 08/11/19 16:20 08/11/19 16:20 08/11/19 16:20 08/11/19 16:20 Course - Vital Signs Vital signs: Temp Pulse Resp BP Pulse Ox 98.0 F 104 H 20 125/85 96 08/11/19 16:20 08/11/19 16:20 08/11/19 16:20 08/11/19 16:20 08/11/19 16:20 Doctor's Discharge - Discharge Referrals: ANDREW WILLIS MD [Primary Care Provider] - Follow up as needed
[2019-08-11 17:35] LABS: ABSOLUTE BASOPHILS # (AUTO) 0.2 10^3/uL (0.0-0.2); ABSOLUTE EOSINOPHILS # (AUTO) 0.1 10^3/uL (0.0-0.6); ABSOLUTE LYMPHOCYTES (AUTO) 1.9 10^3/uL (0.5-4.7); ABSOLUTE MONOCYTES (AUTO) 0.9 10^3/uL (0.1-1.4); ABSOLUTE NEUT (AUTO) 7.2 10^3/uL (1.7-8.2); ABSOLUTE RETICS # 0.067 10^6/uL (0.028-0.122); BASOPHILS % (AUTO) 1.6 % (0-2); EOSINOPHILS % (AUTO) 0.8 % (0-6); HEMATOCRIT 46.5 % (37.9-51.0); HEMOGLOBIN 15.9 g/dL (13.5-17.0); LYMPHOCYTES % (AUTO) 18.3 % (13-45); MEAN CORPUSCULAR HEMOGLOBIN 34.1 pg (27.0-33.4); MEAN CORPUSCULAR HGB CONC 34.2 g/dL (32.0-36.0); MEAN CORPUSCULAR VOLUME 100 fl (80-97); MONOCYTES % (AUTO) 8.8 % (3-13); PLATELET COUNT 259 10^3/uL (150-450); RED BLOOD COUNT 4.66 10^6/uL (4.35-5.55); RED CELL DISTRIBUTION WIDTH 16.2 % (11.5-14.0); RETICULOCYTE COUNT (AUTO) 1.44 % (0.66-2.85); SEGMENTED NEUTROPHILS % (AUTO) 70.5 % (42-78); TOTAL CELLS COUNTED % (AUTO) 100 %; WHITE BLOOD COUNT 10.2 10^3/uL (4.0-10.5)
[2019-08-11 17:56] LABS: ALKALINE PHOSPHATASE 132 U/L (38-126); ANION GAP 14 (5-19); ASPARTATE AMINO TRANSFERASE 36 U/L (17-59); BILIRUBIN,DIRECT 0.3 mg/dL (0.0-0.4); BILIRUBIN,TOTAL 0.7 mg/dL (0.2-1.3); BLOOD UREA NITROGEN 22 mg/dL (7-20); CALCIUM 9.8 mg/dL (8.4-10.2); CARBON DIOXIDE 23 mmol/L (22-30); CHLORIDE 105 mmol/L (98-107); GLUCOSE 104 mg/dL (75-110); POTASSIUM 4.6 mmol/L (3.6-5.0); TOTAL PROTEIN 8.2 g/dL (6.3-8.2)
--- NOTE | 2019-08-11 20:48 | ER Document Report ---
ED General - General Chief Complaint: Knee Pain Stated Complaint: RIGHT KNEE PAIN, HEADACHE Time Seen by Provider: 08/11/19 16:37 Primary Care Provider: ANDREW WILLIS MD [ACTIVE STAFF] - Follow up as needed TRAVEL OUTSIDE OF THE [place] IN LAST 30 DAYS: No - HPI Notes: Patient is a 24-year-old male with a known history of sickle cell anemia who presents emergency department for evaluation of right knee pain, left wrist pain, and headache. He states that his right knee pain usually is precipitated by sickle cell crisis. He states is been ongoing for a few days. He presents pain at a 4 out of 5. He also states he has new pain in his left wrist. He also has a headache, which she states could be from dehydration. Has been taking his medications as prescribed. 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 He denies any fevers, chest pain, shortness of breath. He follows with Dr. Carlos. - Related Data Allergies/Adverse Reactions: Coconut * [Coconut] Allergy (Mild, Verified 08/11/19 16:40) apixaban [From Eliquis] Allergy (Verified 08/11/19 16:40) rivaroxaban [From Xarelto] Allergy (Verified 08/11/19 16:40) transpore tape Allergy (Mild, Uncoded 08/11/19 16:40) Hives Past Medical History - General Information source: Patient - Social History Smoking Status: Never Smoker Chew tobacco use (# tins/day): No Frequency of alcohol use: None Family History: Reviewed & Not Pertinent, Arthritis, DM, Hypertension, Other - Sickle cell trait both parents and asthma Patient has suicidal ideation: No Patient has homicidal ideation: No - Medical History Medical History: Other - Sickle cell anemia Pulmonary Medical History: Reports: Hx Asthma, Hx Pneumonia Renal/ Medical History: Denies: Hx Peritoneal Dialysis Musculoskeletal Medical History: Reports Hx Musculoskeletal Deformity - Pain to multiple areas mostly right knee due to sickle cell anemia Past Surgical History: Reports: Hx Abdominal Surgery - Gallstones removal, Hx Cholecystectomy, Hx Orthopedic Surgery - Fluid drained from right foot, Hx Vascular Surgery - Port placementx2 (failed) - Immunizations Immunizations up to date: Yes Hx Diphtheria, Pertussis, Tetanus Vaccination: Yes Hx Pneumococcal Vaccination: 01/15/13 Review of Systems - Review of Systems Constitutional: No symptoms reported EENT: No symptoms reported Cardiovascular: No symptoms reported Respiratory: No symptoms reported Gastrointestinal: No symptoms reported Genitourinary: No symptoms reported Musculoskeletal: See HPI Skin: No symptoms reported Neurological/Psychological: No symptoms reported Physical Exam - Vital signs Vitals: Temp Pulse Resp BP Pulse Ox 98.0 F 104 H 20 125/85 96 08/11/19 16:20 08/11/19 16:20 08/11/19 16:20 08/11/19 16:20 08/11/19 16:20 - Notes Notes: Vital signs reviewed, please refer to chart. Head is normocephalic, atraumatic. Pupils equal round, reactive to light. Neck is supple without meningismus. Heart is regular rate and rhythm. Lungs are clear to auscultation bilaterally. Abdomen is soft, nontender, normoactive bowel sounds throughout. Extremities without cyanosis, clubbing. Posterior calves are nontender. Peripheral pulses are equal. Skin is warm and dry. Patient is awake, alert, neurological exam is nonfocal. Examination of the right knee yields no obvious deformity. Full range of motion. Palpation over the patella and the medial aspect of the tibia does elicit some pain. Neurovascularly intact distally. Negative Julisa and drawer. Examination of the left wrist feels no obvious deformity. Full range of motion. No associated calor, erythema, edema. Neurovascular intact distally. No bony tenderness noted. Course - Re-evaluation Re-evalutation: 08/11/19 20:53 Patient presents emergency department for evaluation. He has a sickle cell anemia history, he is worried about being a crisis. His reticulocyte count is normal, his hemoglobin is normal. He is medicated with a total of 2-1/2 mg of Dilaudid, 75 mg of Benadryl while he is here. His pain is improved. He does have a mildly elevated creatinine above his baseline, I do suspect that was secondary to dehydration. He was given 2 L of fluid as well. He is told that he needs to maintain hydration as well as possible, is encouraged to follow-up closely with Dr. Carlos. He was amenable to this plan was discharged. - Vital Signs Vital signs: Temp Pulse Resp BP Pulse Ox 98.2 F 100 20 136/97 H 97 08/11/19 19:57 08/11/19 19:57 08/11/19 19:57 08/11/19 19:57 08/11/19 19:57 - Laboratory Result Diagrams: 08/11/19 17:23 08/11/19 17:23 Laboratory results interpreted by me: 08/11/19 08/11/19 17:23 17:23 MCV 100 H MCH 34.1 H RDW 16.2 H BUN 22 H Creatinine 1.39 H Alkaline Phosphatase 132 H Discharge - Discharge Clinical Impression: Right knee pain, Sickle cell pain crisis, Left wrist pain, Abnormal renal function test, Dehydration Condition: Stable Disposition: HOME, SELF-CARE Instructions: Dehydration ([facility]), Sickle Cell Crisis ([facility]) Additional Instructions: Rest, stay well-hydrated. Follow-up with Dr. Carlos and primary care this week. Continue your home medications as prescribed. Return to the ED with worsening or new concerning symptoms of any sort. Referrals: ANDREW WILLIS MD [ACTIVE STAFF] - Follow up as needed
[2019-08-11 21:30] VITALS: BP 127/95
== END 2019-08-11 21:25 | disposition home or self-care (01) ==
LOC: ER 15:54
DX: M25.561 Pain in right knee (principal); D57.00 Hb-SS disease with crisis, unspecified; R94.4 Abnormal results of kidney function studies; E86.0 Dehydration; M25.532 Pain in left wrist; R51 Headache; Z79.899 Other long term (current) drug therapy
CPT/HCPCS: 36415; 85025; 85045; 80053; J1200; J1170; J7030; 96361; 96374; 96375; 96376; 99284

== ENCOUNTER 2019-08-24 20:10 | Emergency (ER) | payer MEDICAID ==
[2019-08-24] MEDS ORDERED: NORMAL SALINE 1000 ML 1,000 ML IV ONE (20:57)
[2019-08-24] MEDS ORDERED: IPRATROPIUM/ALBUTEROL 0.5-2.5 MG/3 ML AMPUL NEB ONE (20:57)
[2019-08-24] MEDS ORDERED: METHYLPREDNISOLONE INJ 125 MG/2 ML SDV IV ONE (20:57)
--- NOTE | 2019-08-24 21:00 | ER Document Report ---
ED Medical Screen (RME) - General Chief Complaint: Sickle Cell Crisis Stated Complaint: HEADACHE Time Seen by Provider: 08/24/19 20:54 Primary Care Provider: TISHA GOLDBERG MD [Primary Care Provider] - Follow up as needed Information source: Patient Notes: Patient presents complaining of left-sided headache and chest pain. Patient with wheezing that he states started this evening. Patient states chest pain radiates through to the back. Patient has a history of sickle cell disease and is status post 2 bone marrow transplants. Patient also has a history of asthma. Patient was just discharged from the hospital 3 days ago for migraine and sickle cell crisis. Patient additionally is complaining of drainage from eyes bilaterally. I have greeted and performed a rapid initial assessment of this patient. A comprehensive ED assessment and evaluation of the patient, analysis of test results and completion of the medical decision making process will be conducted by additional ED providers. TRAVEL OUTSIDE OF THE [place] IN LAST 30 DAYS: No - Related Data Allergies/Adverse Reactions: Coconut * [Coconut] Allergy (Mild, Verified 08/11/19 16:40) apixaban [From Eliquis] Allergy (Verified 08/11/19 16:40) rivaroxaban [From Xarelto] Allergy (Verified 08/11/19 16:40) transpore tape Allergy (Mild, Uncoded 08/11/19 16:40) Hives Past Medical History - Social History Frequency of alcohol use: Rare Family history: None Pulmonary Medical History: Reports: Hx Asthma, Hx Pneumonia Renal/ Medical History: Denies: Hx Peritoneal Dialysis Musculoskeltal Medical History: Reports Hx Musculoskeletal Deformity - Pain to multiple areas mostly right knee due to sickle cell anemia Past Surgical History: Reports: Hx Abdominal Surgery - Gallstones removal, Hx Cholecystectomy, Hx Orthopedic Surgery - Fluid drained from right foot, Hx Vascular Surgery - Port placementx2 (failed) - Immunizations Immunizations up to date: Yes Hx Diphtheria, Pertussis, Tetanus Vaccination: Yes Physical Exam - Vital signs Vitals: Temp Pulse Resp BP Pulse Ox 98.2 F 98 18 141/103 H 94 08/24/19 20:15 08/24/19 20:15 08/24/19 20:15 08/24/19 20:15 08/24/19 20:15 - Respiratory Respiratory status: No respiratory distress Chest status: Tender Breath sounds: Nonproductive cough, Wheezing Course - Vital Signs Vital signs: Temp Pulse Resp BP Pulse Ox 98.2 F 98 18 141/103 H 94 08/24/19 20:53 08/24/19 20:53 08/24/19 20:53 08/24/19 20:53 08/24/19 20:53 Doctor's Discharge - Discharge Referrals: TISHA GOLDBERG MD [Primary Care Provider] - Follow up as needed
--- NOTE | 2019-08-24 21:30 | RADIOLOGY REPORT (SQ) ---
EXAM DESCRIPTION: XR CHEST 2 VIEWS COMPLETED DATE/TME: 08/24/2019 20:57 CLINICAL HISTORY: 24 years, Male, cp, wheezing Comparison: August 17, 2019 FINDINGS: No focal lung consolidation. Diffuse prominence of the pulmonary interstitium throughout both lungs. Trace right pleural effusion versus pleural thickening. Right hemidiaphragm remains elevated. Cardiac and mediastinal silhouette is unremarkable. Chronic changes from sickle cell disease including H shaped thoracic vertebral body and diffuse sclerosis. Soft tissues are unremarkable. IMPRESSION: Diffuse prominent of the pulmonary interstitium is unchanged. There are no focal pulmonary opacities.
[2019-08-24] MEDS: ALBUTEROL SULFATE 0.083% NEB 2.5 MG/3 ML AMPUL NEB SCH ×2 (22:36→22:56)
[2019-08-24 23:08] LABS: ABSOLUTE RETICS # 0.081 10^6/uL (0.028-0.122); HEMATOCRIT 52.8 % (37.9-51.0); HEMOGLOBIN 17.9 g/dL (13.5-17.0); MEAN CORPUSCULAR HEMOGLOBIN 34.2 pg (27.0-33.4); MEAN CORPUSCULAR VOLUME 101 fl (80-97); PLATELET COUNT 280 10^3/uL (150-450); RED BLOOD COUNT 5.24 10^6/uL (4.35-5.55); RED CELL DISTRIBUTION WIDTH 16.6 % (11.5-14.0); RETICULOCYTE COUNT (AUTO) 1.54 % (0.66-2.85); WHITE BLOOD COUNT 5.5 10^3/uL (4.0-10.5)
[2019-08-24] MEDS ORDERED: DIPHENHYDRAMINE HCL 50 MG/ML VIAL IV ONE (23:13)
[2019-08-24] MEDS ORDERED: HYDROMORPHONE HCL INJ/PF 2 MG/ML AMPULE IV PRN (23:13)
[2019-08-24] MEDS ORDERED: OLOPATADINE HCL 0.1% OPH SOLN 5 ML OU ONE (23:14)
--- NOTE | 2019-08-24 23:21 | ER Document Report ---
ED General - General Chief Complaint: Sickle Cell Crisis Stated Complaint: HEADACHE Time Seen by Provider: 08/24/19 20:54 Primary Care Provider: TISHA GOLDBERG MD [Primary Care Provider] - Follow up as needed TRAVEL OUTSIDE OF THE [place] IN LAST 30 DAYS: No - HPI Notes: Tabby Kauffman is a 24-year-old male with a history of sickle cell anemia and migraine headaches as well as asthma presenting now with multiple complaints. The patient was just discharged from the hospital by Dr. Stanton 3 days ago after admission for migraine headache and sickle cell vaso-occlusive crisis. He had an MRI/MRA of brain while he was in the hospital which was read as normal by radiology. He also has had a bad bilateral conjunctivitis and says that his eyes are still red and irritated. We note that he did not fill the prescription for eyedrops provided by his doctor at the time of discharge. He is also supposed to be on a fentanyl patch for pain management and says he has not used this at all since he left the hospital. He is complaining of left-sided headache unaccompanied by any neurologic deficit or fever as well as lower back and left posterior rib pain. When we started discussing his condition he says IV fentanyl "never works" and that they usually administer Dilaudid and Benadryl IV. He denies sputum production at this time. He does report some increased wheezes over the last 24 hours. - Related Data Allergies/Adverse Reactions: Coconut * [Coconut] Allergy (Mild, Verified 08/11/19 16:40) apixaban [From Eliquis] Allergy (Verified 08/11/19 16:40) rivaroxaban [From Xarelto] Allergy (Verified 08/11/19 16:40) transpore tape Allergy (Mild, Uncoded 08/11/19 16:40) Hives Past Medical History - General Information source: Patient, Relative - Hello how you - Social History Smoking Status: Never Smoker Frequency of alcohol use: Rare Family History: Reviewed & Not Pertinent, Arthritis, DM, Hypertension, Other - Sickle cell trait both parents and asthma Patient has suicidal ideation: No Patient has homicidal ideation: No Pulmonary Medical History: Reports: Hx Asthma, Hx Pneumonia Renal/ Medical History: Denies: Hx Peritoneal Dialysis Musculoskeletal Medical History: Reports Hx Musculoskeletal Deformity - Pain to multiple areas mostly right knee due to sickle cell anemia Past Surgical History: Reports: Hx Abdominal Surgery - Gallstones removal, Hx Cholecystectomy, Hx Orthopedic Surgery - Fluid drained from right foot, Hx Vascular Surgery - Port placementx2 (failed) - Immunizations Immunizations up to date: Yes Hx Diphtheria, Pertussis, Tetanus Vaccination: Yes Hx Pneumococcal Vaccination: 01/15/13 Review of Systems - Review of Systems Notes: Constitutional: Negative for fever. HENT: Negative for sore throat. Eyes: As per HPI. Cardiovascular: As per HPI. Respiratory: As per HPI. Gastrointestinal: Negative for abdominal pain, vomiting or diarrhea. Genitourinary: Negative for dysuria. Musculoskeletal: As per HPI. Skin: Negative for rash. Neurological: Negative for headaches, weakness or numbness. 10 point ROS negative except as marked above and in HPI. Physical Exam - Vital signs Vitals: Temp Pulse Resp BP Pulse Ox 98.2 F 98 18 141/103 H 94 08/24/19 20:15 08/24/19 20:15 08/24/19 20:15 08/24/19 20:15 08/24/19 20:15 - Notes Notes: GENERAL: Well-developed well-nourished appearing in mild discomfort. SKIN: Good turgor no rashes. HEAD: Normocephalic atraumatic. EYES: PERRLA. EOMI. Conjunctivae injected bilaterally without discharge. EARS: CANALS AND TMS CLEAR. NOSE: CLEAR. MOUTH: Moist mucosa. Good dentition. No stridor or edema. No drooling. NECK: Supple. No masses or thyromegaly. No adenopathy. Carotids 2+ without bruits. No JVD. BACK: Symmetrical without mild diffuse tenderness. CHEST: Mild diffuse anterior chest wall tenderness. Respirations unlabored. Scattered faint wheezes bilaterally HEART: Regular rhythm. No murmur gallop or rub. ABDOMEN: Soft nontender without masses, organomegaly or rebound. Bowel sounds normally active. No bruits. GENITALIA: Deferred. EXTREMITIES: No edema. No calf tenderness. Cap refill less than 1.5 seconds. Dorsalis pedis and posterior tibial pulses 3+ and symmetrical. NEUROLOGICAL: GCS 15. Alert and oriented x3. Normal gait. Fluent speech. Cranial nerves II through XII intact. Sensorimotor and cerebellar normal. Normal tone. PSYCHIATRIC: Appropriate affect. Course - Re-evaluation Re-evalutation: 08/24/19 23:24 I will obtain a urine drug screen. Patient is started on a dose of IV Dilaudid and Benadryl. He was already given IV steroids by [facility] prior to my evaluation. We are giving DuoNeb treatment now. His lungs at this point however sound clear. 08/25/19 00:52 Patient's labs are not greatly different from his baseline. His chest x-ray per radiology shows no focal infiltrates although he does have some chronic increased interstitial markings. His wheezes have cleared after a single nebulizer treatment here. Currently rating his pain at 4 over 10 after 1 dose of Dilaudid. Situation is discussed with patient and his . He would like to get 1 more dose of pain medicine and then go home and I think this is appropriate. - Vital Signs Vital signs: Temp Pulse Resp BP Pulse Ox 98.2 F 98 18 150/94 H 100 08/24/19 20:53 08/24/19 20:53 08/24/19 22:59 08/24/19 22:59 08/24/19 22:59 - Laboratory Result Diagrams: 08/24/19 22:50 08/24/19 22:50 Laboratory results interpreted by me: 08/24/19 08/24/19 08/24/19 22:50 22:50 22:50 Hgb 17.9 H Hct 52.8 H MCV 101 H MCH 34.2 H RDW 16.6 H Monocytes % (Manual) 16 H Sodium 146.1 H Carbon Dioxide 31 H AST 87 H Alkaline Phosphatase 142 H Lactate Dehydrogenase 346 H Total Protein 9.2 H Albumin 5.6 H - Diagnostic Test Radiology reviewed: Reports reviewed - No focal infiltrates with some chronic increased interstitial markings unchanged from prior film per radiologist Discharge - Discharge Clinical Impression: Vaso-occlusive sickle cell crisis, Asthma exacerbation, Allergic conjunctivitis, bilateral, Sickle cell pain crisis Migraine headache Qualifiers: Migraine type: unspecified Status migrainosus presence: without status migrainosus Intractability: not intractable Qualified Code(s): G43.909 - Migraine, unspecified, not intractable, without status migrainosus Condition: Stable Disposition: HOME, SELF-CARE Additional Instructions: Sickle Cell Crisis You have "sickle cell crisis." Sickle cell disease is caused by abnormal hemoglobin. This hemoglobin can deform red blood cells into a sickle shape. These abnormal blood cells can block blood vessels. This causes the pain of sickle cell crisis. Sickle cell crisis can occur any time. But attacks are more likely with acute infection, dehydration, or altitude change. A crisis usually causes pain in the legs, back, abdomen, and chest. Sometimes the pain may ease and return later. The usual treatment is oxygen, pain medication, IV fluids, and treatment of infection. Attacks may take a couple of days to resolve. Return if the pain becomes more severe, or if there are new symptoms. Migraine Headache The physician feels that your symptoms are due to a migraine attack. Migraines are caused by changes in the blood vessels of the head. Arteries go into spasm, often causing warning symptoms that a headache may begin soon. As the spasm goes away, the vessels dilate and throb, causing the pounding pain of a migraine headache. Migraines often cause nausea and vomiting. The treatment of headaches varies with severity and cause of pain. Not all headaches need pain shots -- in fact, there is evidence that using narcotics for headaches may make them worse in the long run. The physician will determine the therapy that's in your best interest for this particular headache. Medications are available that may prevent migraines, or stop them as they first occur. If one medication is not helpful, try another. If migraines are frequent, be patient -- follow the doctor's recommendations. Call the physician if you are worsening, or if new symptoms arise. Fill prescriptions you were previously prescribed and continue treatment as outlined by your physician. See your primary care doctor within the next 1 week. Return here as needed for new or worsening symptoms. Referrals: TISHA GOLDBERG MD [Primary Care Provider] - Follow up as needed
[2019-08-24 23:23] LABS: ALBUMIN 5.6 g/dL (3.5-5.0); ALKALINE PHOSPHATASE 142 U/L (38-126); ANION GAP 14 (5-19); ASPARTATE AMINO TRANSFERASE 87 U/L (17-59); BILIRUBIN,DIRECT 0.2 mg/dL (0.0-0.4); BILIRUBIN,TOTAL 0.6 mg/dL (0.2-1.3); BLOOD UREA NITROGEN 13 mg/dL (7-20); CARBON DIOXIDE 31 mmol/L (22-30); CHLORIDE 101 mmol/L (98-107); GLUCOSE 97 mg/dL (75-110); POTASSIUM 4.4 mmol/L (3.6-5.0); TOTAL PROTEIN 9.2 g/dL (6.3-8.2)
[2019-08-24 23:37] LABS: ABSOLUTE LYMPHOCYTES# (MANUAL) 1.7 10^3/uL (0.5-4.7); ABSOLUTE MONOCYTES # (MANUAL) 0.9 10^3/uL (0.1-1.4); BASOPHILS % (MANUAL) 0 % (0-2); EOSINOPHILS % (MANUAL) 3 % (0-6); LYMPHOCYTES % (MANUAL) 30 % (13-45); MONOCYTES % (MANUAL) 16 % (3-13); SEGMENTED NEUTROPHILS % (MAN) 51 % (42-78); TOTAL CELLS COUNTED 100
[2019-08-24 23:40] LABS: ANISOCYTOSIS 1+; BURR CELLS SLIGHT; PLATELET COMMENT ADEQUATE; POLYCHROMASIA SLIGHT; TEAR DROP CELLS SLIGHT; TOXIC GRANULATION SLIGHT; TOXIC VACUOLATION PRESENT
[2019-08-24 23:53] LABS: APPEARANCE,URINE CLEAR; BILIRUBIN,URINE NEGATIVE (NEGATIVE); COLOR,URINE STRAW; GLUCOSE, URINE NEGATIVE (NEGATIVE); KETONES,URINE NEGATIVE (NEGATIVE); LEUKOCYTE ESTERASE,URINE NEGATIVE (NEGATIVE); NITRITE,URINE NEGATIVE (NEGATIVE); PROTEIN,URINE NEGATIVE (NEGATIVE); URINE SPECIFIC GRAVITY 1.009; UROBILINOGEN,URINE NEGATIVE mg/dL (<2.0)
[2019-08-25 00:10] LABS: URINE AMPHETAMINES SCREEN NEGATIVE; URINE BARBITURATES SCREEN NEGATIVE; URINE BENZODIAZEPINES SCREEN NEGATIVE; URINE COCAINE SCREEN NEGATIVE; URINE MARIJUANA (THC) SCREEN NEGATIVE; URINE METHADONE SCREEN NEGATIVE; URINE PHENCYCLIDINE SCREEN NEGATIVE
[2019-08-25] MEDS ORDERED: HYDROMORPHONE HCL INJ/PF 2 MG/ML AMPULE IV PRN (00:56)
[2019-08-25 02:11] VITALS: BP 150/87
--- NOTE | 2019-08-25 20:16 | EKG REPORT ---
SEVERITY:- NORMAL ECG - SINUS RHYTHM : Confirmed by: Jasmine Parks MD 25-Aug-2019 20:15:49
== END 2019-08-25 02:11 | disposition home or self-care (01) ==
LOC: ER 20:10
DX: G43.909 Migraine, unspecified, not intractable, without status migrainosus (principal); D57.00 Hb-SS disease with crisis, unspecified; H10.13 Acute atopic conjunctivitis, bilateral; J45.901 Unspecified asthma with (acute) exacerbation; Z79.899 Other long term (current) drug therapy
CPT/HCPCS: 93005; 96376; 94640; 99284; 96361; 96374; 96375; 36415; 83615; 85025; 85045; 80053; 81001; 84484; 80307; 71046; 93010; J1200; J2930; J1170 ×2; J7030; J3490; J7620

== ENCOUNTER 2019-08-25 19:18 | Emergency (ER) | payer MEDICAID ==
[2019-08-25] MEDS ORDERED: HYDROMORPHONE HCL INJ/PF 2 MG/ML AMPULE IV ONE (20:16)
[2019-08-25] MEDS ORDERED: ONDANSETRON HCL INJ/PF 4 MG/2 ML SDV IV ONE (20:16)
[2019-08-25] MEDS ORDERED: DIPHENHYDRAMINE HCL 50 MG/ML VIAL IV ONE (20:16)
[2019-08-25] MEDS ORDERED: NORMAL SALINE 1000 ML 1,000 ML IV ONE (20:17)
--- NOTE | 2019-08-25 20:20 | ER Document Report ---
ED Medical Screen (RME) - General Chief Complaint: Headache Stated Complaint: BACK AND HEAD PAIN Time Seen by Provider: 08/25/19 20:12 Primary Care Provider: TISHA GOLDBERG MD [Primary Care Provider] - Follow up as needed TRAVEL OUTSIDE OF THE [place] IN LAST 30 DAYS: No - HPI Notes: 08/25/19 20:18 24-year-old male to the emergency department with complaints of back pain and h eadache. He states that that his headache started 6 days ago and has been progressively getting worse. He states he has a history of migraines that typically occur on the left side but he has a new symptom that began early this morning of blurred vision. He states he is never had blurred vision with his migraines. He admits to some photophobia and nausea. He also reports back pain. He states that his back pain is been going on for 4 days and it feels much like his sickle cell pain crisis. He typically takes folic acid, hydroxyurea, 15 mg of Oxy daily. His last transfusion was last month and he was admitted for this. 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 Mojica in September. Performed brief medical screening exam on the patient and determined that he will need further management and evaluation by main side provider. I have placed initial orders to help expedite his care. - Related Data Allergies/Adverse Reactions: Coconut * [Coconut] Allergy (Mild, Verified 08/11/19 16:40) apixaban [From Eliquis] Allergy (Verified 08/11/19 16:40) rivaroxaban [From Xarelto] Allergy (Verified 08/11/19 16:40) transpore tape Allergy (Mild, Uncoded 08/11/19 16:40) Hives Past Medical History - Social History Frequency of alcohol use: Occasional Family history: None Pulmonary Medical History: Reports: Hx Asthma, Hx Pneumonia Renal/ Medical History: Denies: Hx Peritoneal Dialysis Musculoskeltal Medical History: Reports Hx Musculoskeletal Deformity - Pain to multiple areas mostly right knee due to sickle cell anemia Past Surgical History: Reports: Hx Abdominal Surgery - Gallstones removal, Hx Cholecystectomy, Hx Orthopedic Surgery - Fluid drained from right foot, Hx Vascular Surgery - Port placementx2 (failed) - Immunizations Immunizations up to date: Yes Hx Diphtheria, Pertussis, Tetanus Vaccination: Yes Physical Exam - Vital signs Vitals: Temp Pulse Resp BP Pulse Ox 98.7 F 120 H 16 146/104 H 95 08/25/19 19:36 08/25/19 19:36 08/25/19 19:36 08/25/19 19:36 08/25/19 19:36 Course - Vital Signs Vital signs: Temp Pulse Resp BP Pulse Ox 98.7 F 115 H 16 138/98 H 100 08/25/19 19:36 08/25/19 20:09 08/25/19 19:36 08/25/19 20:09 08/25/19 20:09 Doctor's Discharge - Discharge Referrals: TISHA GOLDBERG MD [Primary Care Provider] - Follow up as needed
--- NOTE | 2019-08-25 21:26 | RADIOLOGY REPORT (SQ) ---
EXAM DESCRIPTION: CT HEAD WITHOUT IV CONTRAST COMPLETED DATE/TME: 08/25/2019 20:15 CLINICAL HISTORY: headache, blurry vision, different from reg [facility] COMPARISON: None Available. TECHNIQUE: Contiguous axial images of the brain were obtained without the administration of intravenous contrast. This exam was performed according to our departmental dose-optimization program, which includes automated exposure control, adjustment of the mA and/or kV according to patient size and/or use of iterative reconstruction technique. FINDINGS: There is no acute intracranial hemorrhage or mass effect. Ventricular system is within normal limits. There is adequate child-white matter differentiation. There is no skull fracture. The visualized paranasal sinuses and mastoid air cells are within normal limits. IMPRESSION: No acute intracranial abnormalities.
--- NOTE | 2019-08-25 21:27 | ER Document Report ---
ED General - General Chief Complaint: Headache Stated Complaint: BACK AND HEAD PAIN Time Seen by Provider: 08/25/19 20:12 Primary Care Provider: TISHA GOLDBERG MD [Primary Care Provider] - Follow up as needed Notes: Patient is a 24-year-old male that comes emergency department for chief complaint of sickle cell pain crisis. He states that he hurts in his lower back and also on the left side of his head with a throbbing headache. He does report some blurry vision in the left eye but he denies visual loss, he denies focal numbness or weakness. He reports nausea but denies vomiting. He reports photophobia. He states he had a negative MRI of his brain on 08/18/2019 when he was admitted here for sickle cell pain. He states he was seen yesterday and felt better before he went home but went home and started having a bad headache again. He states this particular headache is been present for about 3 days. He denies head injury, neck pain, fever, abdominal pain, chest pain, shortness of breath. TRAVEL OUTSIDE OF THE [place] IN LAST 30 DAYS: No - Related Data Allergies/Adverse Reactions: Coconut * [Coconut] Allergy (Mild, Verified 08/11/19 16:40) apixaban [From Eliquis] Allergy (Verified 08/11/19 16:40) rivaroxaban [From Xarelto] Allergy (Verified 08/11/19 16:40) transpore tape Allergy (Mild, Uncoded 08/11/19 16:40) Hives Past Medical History - General Information source: Patient, Relative - Social History Smoking Status: Never Smoker Frequency of alcohol use: Occasional Lives with: Family Family History: Reviewed & Not Pertinent, Arthritis, DM, Hypertension, Other - Sickle cell trait both parents and asthma Patient has suicidal ideation: No Patient has homicidal ideation: No Pulmonary Medical History: Reports: Hx Asthma, Hx Pneumonia Renal/ Medical History: Denies: Hx Peritoneal Dialysis Musculoskeletal Medical History: Reports Hx Musculoskeletal Deformity - Pain to multiple areas mostly right knee due to sickle cell anemia Past Surgical History: Reports: Hx Abdominal Surgery - Gallstones removal, Hx Cholecystectomy, Hx Orthopedic Surgery - Fluid drained from right foot, Hx V ascular Surgery - Port placementx2 (failed) - Immunizations Immunizations up to date: Yes Hx Diphtheria, Pertussis, Tetanus Vaccination: Yes Hx Pneumococcal Vaccination: 01/15/13 Review of Systems - Review of Systems Constitutional: See HPI EENT: See HPI Cardiovascular: No symptoms reported Respiratory: No symptoms reported Gastrointestinal: No symptoms reported Genitourinary: No symptoms reported Male Genitourinary: No symptoms reported Musculoskeletal: See HPI Skin: No symptoms reported Hematologic/Lymphatic: No symptoms reported Neurological/Psychological: See HPI Physical Exam - Vital signs Vitals: Temp Pulse Resp BP Pulse Ox 98.7 F 120 H 16 146/104 H 95 08/25/19 19:36 08/25/19 19:36 08/25/19 19:36 08/25/19 19:36 08/25/19 19:36 - Notes Notes: GENERAL: Alert, interacts well. No acute distress. HEAD: Normocephalic, atraumatic. EYES: Pupils equal, round, and reactive to light. Extraocular movements intact. No photophobia noted. ENT: Oral mucosa moist, tongue midline. Oropharynx unremarkable. Airway patent. NECK: Full range of motion. Supple. Trachea midline. No nuchal rigidity LUNGS: Clear to auscultation bilaterally, no wheezes, rales, or rhonchi. No respiratory distress. HEART: Borderline tachycardia, normal rhythm, no murmur ABDOMEN: Soft, non-tender. Non-distended. EXTREMITIES: Moves all 4 extremities spontaneously. No edema, normal radial and dorsalis pedis pulses bilaterally. No cyanosis. BACK: no cervical, thoracic, lumbar midline tenderness. No saddle anesthesia, normal distal neurovascular exam. Moves all extremities in full range of motion. NEUROLOGICAL: Alert and oriented x3. Normal speech. Cranial nerves II through XI I grossly intact. PSYCH: Normal affect, normal mood. SKIN: Warm, dry, normal turgor. No rashes or lesions noted. Course - Re-evaluation Re-evalutation: Initially patient was somewhat tachycardic, this improved with IV fluids and the rapy. He is actually very well-appearing on exam, normal neurological exam, no visual deficits, no signs of distress. No fever. No complaints of chest pain or shortness of breath. No nuchal rigidity. Patient had a negative CAT scan of the head in triage tonight, had a negative MRI of the brain a couple of weeks ago. CBC shows mild leukocytosis, no bandemia, no significant anemia. Reticulocytes unremarkable. Indirect bilirubin unremarkable. Chemistry unremarkable. Overall evaluation is reassuring. Patient requesting medication again, he was remedicated, on reevaluation patient is alert, interactive, changing his child's diaper at bedside, is quite well- appearing. He states he would like to be admitted to the hospital. I will speak to the hospitalist. I spoke with Dr. Jeffries, on-call for patient's primary care provider Dr. Stanton, he states he feels like patient does not meet admission criteria. I discussed with patient. I discussed with Dr. Church who saw the patient yesterday. Patient is asking if he can have another dose of medication and he will go home and follow-up with his primary care provider. He states that he is fine with this plan and he will return if he worsens in any way. I feel this is appropriate based on his evaluation and well appearance, Dr. Church states agreement with this plan. Discussed return precautions, patient states unde rstanding and agreement. Stable at time of discharge. - Vital Signs Vital signs: Temp Pulse Resp BP Pulse Ox 97.8 F 107 H 18 165/88 H 97 08/26/19 04:39 08/26/19 04:39 08/26/19 04:39 08/26/19 04:39 08/26/19 04:39 - Laboratory Result Diagrams: 08/25/19 23:35 08/25/19 23:35 Laboratory results interpreted by me: 08/25/19 23:35 WBC 11.9 H D MCV 101 H MCH 34.1 H RDW 17.1 H Band Neutrophils % 1 L Monocytes % (Manual) 14 H Abs Neuts (Manual) 8.3 H Abs Monocytes (Manual) 1.7 H Discharge - Discharge Clinical Impression: Headache Qualifiers: Headache type: unspecified Headache chronicity pattern: acute headache Intractability: not intractable Qualified Code(s): R51 - Headache Back pain Qualifiers: Back pain location: low back pain Chronicity: acute Back pain laterality: bilateral Sciatica presence: without sciatica Qualified Code(s): M54.5 - Low back pain Sickle cell anemia Qualifiers: Sickle-cell associated disorders: with unspecified crisis Qualified Code(s): D57.00 - Hb-SS disease with crisis, unspecified Condition: Stable Disposition: HOME, SELF-CARE Additional Instructions: Your evaluation tonight is reassuring. Continue rest, hydration, and pain medication. Follow-up with your primary provider for additional management. Return if you worsen including vomiting, fever, difficulty breathing, severe worsening pain, or any other concerning or worsening symptoms. Referrals: TISHA GOLDBERG MD [Primary Care Provider] - Follow up as needed
[2019-08-25 23:53] LABS: ABSOLUTE RETICS # 0.066 10^6/uL (0.028-0.122); HEMATOCRIT 44.5 % (37.9-51.0); MEAN CORPUSCULAR HEMOGLOBIN 34.1 pg (27.0-33.4); MEAN CORPUSCULAR HGB CONC 33.7 g/dL (32.0-36.0); MEAN CORPUSCULAR VOLUME 101 fl (80-97); PLATELET COUNT 237 10^3/uL (150-450); RED CELL DISTRIBUTION WIDTH 17.1 % (11.5-14.0); RETICULOCYTE COUNT (AUTO) 1.49 % (0.66-2.85)
[2019-08-26 00:02] LABS: ALBUMIN 4.4 g/dL (3.5-5.0); ALKALINE PHOSPHATASE 119 U/L (38-126); ANION GAP 11 (5-19); ASPARTATE AMINO TRANSFERASE 41 U/L (17-59); BILIRUBIN,DIRECT 0.1 mg/dL (0.0-0.4); BILIRUBIN,TOTAL 0.5 mg/dL (0.2-1.3); BLOOD UREA NITROGEN 16 mg/dL (7-20); CALCIUM 9.8 mg/dL (8.4-10.2); CARBON DIOXIDE 27 mmol/L (22-30); CHLORIDE 104 mmol/L (98-107); GLUCOSE 100 mg/dL (75-110); POTASSIUM 4.1 mmol/L (3.6-5.0); TOTAL PROTEIN 7.3 g/dL (6.3-8.2)
[2019-08-26 00:14] LABS: WHITE BLOOD COUNT 11.9 10^3/uL (4.0-10.5)
[2019-08-26] MEDS ORDERED: HYDROMORPHONE HCL INJ/PF 2 MG/ML AMPULE IV ONE ×3 (00:27→03:48)
[2019-08-26] MEDS ORDERED: ONDANSETRON HCL INJ/PF 4 MG/2 ML SDV ONE (00:27)
[2019-08-26] MEDS ORDERED: DIPHENHYDRAMINE HCL 50 MG/ML VIAL ONE (00:27)
[2019-08-26 00:38] LABS: ABSOLUTE LYMPHOCYTES# (MANUAL) 1.9 10^3/uL (0.5-4.7); ABSOLUTE MONOCYTES # (MANUAL) 1.7 10^3/uL (0.1-1.4); BAND NEUTROPHILS % (MANUAL) 1 % (3-5); BASOPHILS % (MANUAL) 0 % (0-2); EOSINOPHILS % (MANUAL) 0 % (0-6); LYMPHOCYTES % (MANUAL) 16 % (13-45); MONOCYTES % (MANUAL) 14 % (3-13); SEGMENTED NEUTROPHILS % (MAN) 69 % (42-78); TOTAL CELLS COUNTED 100; TOXIC GRANULATION 1+
[2019-08-26 00:39] LABS: ANISOCYTOSIS 1+; BURR CELLS SLIGHT; OVALOCYTES 1+; PLATELET COMMENT ADEQUATE; POIKILOCYTOSIS 1+; SCHISTOCYTES SLIGHT; TARGET CELLS SLIGHT; TEAR DROP CELLS SLIGHT
[2019-08-26] MEDS ORDERED: DIPHENHYDRAMINE HCL 50 MG/ML VIAL IV ONE ×2 (01:37→03:48)
[2019-08-26] MEDS ORDERED: METOCLOPRAMIDE HCL INJ/PF 10 MG/2 ML SDV IV ONE (01:37)
[2019-08-26] MEDS ORDERED: NORMAL SALINE 1000 ML 1,000 ML IV ONE (01:38)
[2019-08-26 03:38] LABS: APPEARANCE,URINE CLEAR; BILIRUBIN,URINE NEGATIVE (NEGATIVE); COLOR,URINE YELLOW; GLUCOSE, URINE NEGATIVE (NEGATIVE); KETONES,URINE NEGATIVE (NEGATIVE); LEUKOCYTE ESTERASE,URINE NEGATIVE (NEGATIVE); NITRITE,URINE NEGATIVE (NEGATIVE); PROTEIN,URINE NEGATIVE (NEGATIVE); URINE SPECIFIC GRAVITY 1.011; UROBILINOGEN,URINE NEGATIVE mg/dL (<2.0)
[2019-08-26 04:42] VITALS: BP 165/88
== END 2019-08-26 04:39 | disposition home or self-care (01) ==
LOC: ER 19:18
DX: R51 Headache (principal); D57.00 Hb-SS disease with crisis, unspecified; M54.5 Low back pain; Z90.49 Acquired absence of other specified parts of digestive tract
CPT/HCPCS: 96376; 99284; 96361; 96374; 96375; 36415; 85025; 85045; 80053; 81001; 70450; J1200; J2765; J1170; J2405; J7030

== ENCOUNTER 2019-08-27 18:27 | Emergency (ER) | payer MEDICAID ==
[2019-08-27] MEDS ORDERED: HYDROMORPHONE HCL INJ/PF 2 MG/ML AMPULE IV ONE ×2 (20:05→23:59)
[2019-08-27] MEDS ORDERED: NORMAL SALINE 1000 ML 1,000 ML IV ONE (20:06)
--- NOTE | 2019-08-27 20:11 | ER Document Report ---
ED Medical Screen (RME) - General Chief Complaint: Headache Stated Complaint: HEADACHE Time Seen by Provider: 08/27/19 20:04 Primary Care Provider: TISHA GOLDBERG MD [Primary Care Provider] - Follow up as needed Mode of Arrival: Ambulatory Information source: Patient Notes: 24-year-old male patient frequently known at our facility with sickle cell. Patient reports he passed out while at [facility] just prior to arrival and he has severe headache. Patient has never had headache like this in the past. He appears to be in acute distress. He will be sent straight for a head CT. Denies chest pain or shortness of breath. I have greeted and performed a rapid initial assessment of this patient. A comprehensive ED assessment and evaluation of the patient, analysis of test results and completion of the medical decision making process will be conducted by additional ED providers. I have specifically instructed the patient or family members with the patient to immediately return to any nursing staff should anything change in the patient's condition or with their chief complaint. TRAVEL OUTSIDE OF THE [place] IN LAST 30 DAYS: No - Related Data Allergies/Adverse Reactions: Coconut * [Coconut] Allergy (Mild, Verified 08/27/19 19:53) apixaban [From Eliquis] Allergy (Verified 08/27/19 19:53) rivaroxaban [From Xarelto] Allergy (Verified 08/27/19 19:53) transpore tape Allergy (Mild, Uncoded 08/11/19 16:40) Hives Past Medical History - Social History Family history: None Pulmonary Medical History: Reports: Hx Asthma, Hx Pneumonia Renal/ Medical History: Denies: Hx Peritoneal Dialysis Musculoskeltal Medical History: Reports Hx Musculoskeletal Deformity - Pain to multiple areas mostly right knee due to sickle cell anemia Past Surgical History: Reports: Hx Abdominal Surgery - Gallstones removal, Hx Cholecystectomy, Hx Orthopedic Surgery - Fluid drained from right foot, Hx Vascular Surgery - Port placementx2 (failed) - Immunizations Immunizations up to date: Yes Hx Diphtheria, Pertussis, Tetanus Vaccination: Yes Physical Exam - Vital signs Vitals: Temp Pulse Resp BP Pulse Ox 98.1 F 80 16 172/108 H 97 08/27/19 18:59 08/27/19 18:59 08/27/19 18:59 08/27/19 18:59 12/26/19 18:59 Course - Vital Signs Vital signs: Temp Pulse Resp BP Pulse Ox 98.1 F 80 16 172/108 H 97 08/27/19 18:59 08/27/19 18:59 08/27/19 18:59 08/27/19 18:59 08/27/19 18:59 Doctor's Discharge - Discharge Referrals: TISHA GOLDBERG MD [Primary Care Provider] - Follow up as needed
--- NOTE | 2019-08-27 21:01 | RADIOLOGY REPORT (SQ) ---
EXAM DESCRIPTION: CT HEAD WITHOUT IV CONTRAST COMPLETED DATE/TME: 08/27/2019 20:05 CLINICAL HISTORY: 24 years, Male, severe headache, sickle cell EXAM DESCRIPTION: CLINICAL HISTORY: severe headache, sickle cell COMPARISON: None Available TECHNIQUE: Contiguous axial CT images of the head were obtained. Coronal and sagittal reconstructions were created from the axial data. This exam was performed according to our departmental dose-optimization program, which includes automated exposure control, adjustment of the mA and/or kV according to patient size and/or use of iterative reconstruction technique. FINDINGS: There is no evidence of acute mass, mass effect, midline shift or hemorrhage. The ventricles and extra-axial CSF spaces are unremarkable. The brain parenchyma appears normal for the patient's age. No acute abnormalities of the bones is seen. IMPRESSION: No acute intracranial abnormality.
[2019-08-27 21:20] LABS: ABSOLUTE RETICS # 0.043 10^6/uL (0.028-0.122); HEMATOCRIT 44.7 % (37.9-51.0); HEMOGLOBIN 15.2 g/dL (13.5-17.0); MEAN CORPUSCULAR HEMOGLOBIN 34.4 pg (27.0-33.4); MEAN CORPUSCULAR VOLUME 101 fl (80-97); RED BLOOD COUNT 4.42 10^6/uL (4.35-5.55); RED CELL DISTRIBUTION WIDTH 17.2 % (11.5-14.0); RETICULOCYTE COUNT (AUTO) 0.98 % (0.66-2.85); WHITE BLOOD COUNT 6.9 10^3/uL (4.0-10.5)
[2019-08-27 21:29] LABS: APPEARANCE,URINE CLEAR; BILIRUBIN,URINE NEGATIVE (NEGATIVE); COLOR,URINE YELLOW; GLUCOSE, URINE NEGATIVE (NEGATIVE); KETONES,URINE NEGATIVE (NEGATIVE); LEUKOCYTE ESTERASE,URINE NEGATIVE (NEGATIVE); NITRITE,URINE NEGATIVE (NEGATIVE); PROTEIN,URINE NEGATIVE (NEGATIVE); URINE SPECIFIC GRAVITY 1.012; UROBILINOGEN,URINE NEGATIVE mg/dL (<2.0)
[2019-08-27 21:30] LABS: ALBUMIN 4.7 g/dL (3.5-5.0); ALKALINE PHOSPHATASE 106 U/L (38-126); ANION GAP 11 (5-19); ASPARTATE AMINO TRANSFERASE 36 U/L (17-59); BILIRUBIN,DIRECT 0.3 mg/dL (0.0-0.4); BILIRUBIN,TOTAL 0.6 mg/dL (0.2-1.3); BLOOD UREA NITROGEN 18 mg/dL (7-20); CALCIUM 9.4 mg/dL (8.4-10.2); CARBON DIOXIDE 27 mmol/L (22-30); CHLORIDE 104 mmol/L (98-107); GLUCOSE 111 mg/dL (75-110); POTASSIUM 3.8 mmol/L (3.6-5.0); TOTAL PROTEIN 7.6 g/dL (6.3-8.2)
[2019-08-27 21:39] LABS: PLATELET COUNT 148 10^3/uL (150-450)
[2019-08-27 21:46] LABS: ABSOLUTE LYMPHOCYTES# (MANUAL) 1.9 10^3/uL (0.5-4.7); ABSOLUTE MONOCYTES # (MANUAL) 0.6 10^3/uL (0.1-1.4); ANISOCYTOSIS 1+; BASOPHILS % (MANUAL) 0 % (0-2); EOSINOPHILS % (MANUAL) 4 % (0-6); LYMPHOCYTES % (MANUAL) 27 % (13-45); MONOCYTES % (MANUAL) 9 % (3-13); PLATELET COMMENT DECREASED; SEGMENTED NEUTROPHILS % (MAN) 60 % (42-78); TOTAL CELLS COUNTED 100
[2019-08-28] MEDS ORDERED: DIPHENHYDRAMINE HCL 50 MG/ML VIAL IV ONE ×2 (00:55→02:49)
[2019-08-28] MEDS ORDERED: NORMAL SALINE 1000 ML 1,000 ML IV ONE (00:55)
--- NOTE | 2019-08-28 00:56 | ER Document Report ---
ED General - General Chief Complaint: Headache Stated Complaint: HEADACHE Time Seen by Provider: 08/27/19 20:04 Primary Care Provider: TISHA GOLDBERG MD [Primary Care Provider] - Follow up as needed Mode of Arrival: Medic Information source: Patient TRAVEL OUTSIDE OF THE U.S. IN LAST 30 DAYS: No - HPI Onset: Just prior to arrival Onset/Duration: Gradual, Persistent Quality of pain: Achy, Sharp Severity: Moderate Pain Level: 4 - 24-year-old -[place] male with history of sickle cell disease who has been to the emergency room several visits in the last 1 to 2 weeks. Patient complained of a headache while shopping and [employer] today. Patient said he felt weak and actually had a syncopal spell where he fell to the ground. Patient has chronic low back pain with a sickle cell crisis and in more recent weeks to months is noted a headache that seems to be associated with. Denies any fever chills loss of vision loss of speech denies injuring his head when he fell or his neck or his back. Patient brought into the EMS by EMS to the ED. Patient reports that his low back due to his sickle cell crisis pain is dominating more than his headache in terms of his complaint at this time. Similar symptoms previously: Yes Recently seen / treated by doctor: Yes - Related Data Allergies/Adverse Reactions: Coconut * [Coconut] Allergy (Mild, Verified 08/27/19 19:53) apixaban [From Eliquis] Allergy (Verified 08/27/19 19:53) rivaroxaban [From Xarelto] Allergy (Verified 08/27/19 19:53) transpore tape Allergy (Mild, Uncoded 08/11/19 16:40) Hives Past Medical History - General Information source: Patient - Social History Smoking Status: Never Smoker Frequency of alcohol use: None Lives with: Family Family History: Reviewed & Not Pertinent, Arthritis, DM, Hypertension, Other - Sickle cell trait both parents and asthma Patient has suicidal ideation: No Patient has homicidal ideation: No - Medical History Medical History: Other - 090 That would be a waste that Dr. Bagley sickle cell anemia sure Pulmonary Medical History: Reports: Hx Asthma, Hx Pneumonia Renal/ Medical History: Denies: Hx Peritoneal Dialysis Musculoskeletal Medical History: Reports Hx Musculoskeletal Deformity - Pain to multiple areas mostly right knee due to sickle cell anemia Past Surgical History: Reports: Hx Abdominal Surgery - Gallstones removal, Hx Cholecystectomy, Hx Orthopedic Surgery - Fluid drained from right foot, Hx Vascular Surgery - Port placementx2 (failed) - Immunizations Immunizations up to date: Yes Hx Diphtheria, Pertussis, Tetanus Vaccination: Yes Hx Pneumococcal Vaccination: 01/15/13 Review of Systems - Review of Systems Musculoskeletal: See HPI Neurological/Psychological: See HPI Physical Exam - Vital signs Vitals: Temp Pulse Resp BP Pulse Ox 98.1 F 80 16 172/108 H 97 08/27/19 18:59 08/27/19 18:59 08/27/19 18:59 08/27/19 18:59 08/27/19 18:59 Interpretation: Normal - Notes Notes: Appears to be in distress with low back pain and complaints of headache - General General appearance: Appears well, Alert - HEENT Head: Normocephalic, Atraumatic Eyes: Normal Pupils: PERRL - Respiratory Respiratory status: No respiratory distress Chest status: Nontender Breath sounds: Normal Chest palpation: Normal - Cardiovascular Rhythm: Regular Heart sounds: Normal auscultation Murmur: No - Abdominal Inspection: Normal Distension: No distension Bowel sounds: Normal Tenderness: Nontender Organomegaly: No organomegaly - Back Back: Normal, Nontender - Extremities General upper extremity: Normal inspection, Nontender, Normal color, Normal ROM, Normal temperature General lower extremity: Normal inspection, Nontender, Normal color, Normal ROM, Normal temperature, Normal weight bearing. No: Jeannine's sign - Neurological Neuro grossly intact: Yes Cognition: Normal Orientation: AAOx4 [place] Coma Scale Eye Opening: Spontaneous [place] Coma Scale Verbal: Oriented [place] Coma Scale Motor: Obeys Commands [place] Coma Scale Total: 15 Speech: Normal Motor strength normal: LUE, RUE, LLE, RLE Sensory: Normal - Psychological Associated symptoms: Normal affect, Normal mood - Skin Skin Temperature: Warm Skin Moisture: Dry Skin Color: Normal Course - Vital Signs Vital signs: Temp Pulse Resp BP Pulse Ox 98.1 F 80 16 148/95 H 96 08/27/19 18:59 08/27/19 18:59 08/28/19 04:14 08/28/19 04:14 08/28/19 04:14 - Laboratory Result Diagrams: 08/27/19 20:46 08/27/19 20:46 Laboratory results interpreted by me: 08/27/19 08/27/19 20:46 20:46 MCV 101 H MCH 34.4 H RDW 17.2 H Plt Count 148 L Glucose 111 H Discharge - Discharge Clinical Impression: Sickle cell disease Qualifiers: Sickle-cell associated disorders: with unspecified crisis Qualified Code(s): D57.00 - Hb-SS disease with crisis, unspecified Acute low back pain Qualifiers: Back pain laterality: bilateral Sciatica presence: unspecified whether sciatica present Qualified Code(s): M54.5 - Low back pain Headache Qualifiers: Headache type: cluster Headache chronicity pattern: unspecified pattern Accidental fall Qualifiers: Encounter type: subsequent encounter Qualified Code(s): W19.XXXD - Unspecified fall, subsequent encounter Condition: Stable Disposition: HOME, SELF-CARE Instructions: Headache ([facility]), Oral Narcotic Medication ([facility]) Additional Instructions: Sickle Cell Crisis You have "sickle cell crisis." Sickle cell disease is caused by abnormal hemoglobin. This hemoglobin can deform red blood cells into a sickle shape. These abnormal blood cells can block blood vessels. This causes the pain of sickle cell crisis. Sickle cell crisis can occur any time. But attacks are more likely with acute infection, dehydration, or altitude change. A crisis usually causes pain in the legs, back, abdomen, and chest. Sometimes the pain may ease and return later. The usual treatment is oxygen, pain medication, IV fluids, and treatment of infection. Attacks may take a couple of days to resolve. Return if the pain becomes more severe, or if there are new symptoms. Patient states he has pain medications to take at home and therefore is not in need of any prescriptions at this time. Referrals: TISHA GOLDBERG MD [Primary Care Provider] - Follow up as needed
[2019-08-28] MEDS: HYDROMORPHONE HCL INJ/PF 2 MG/ML AMPULE IV PRN ×2 (02:09→04:17)
[2019-08-28] MEDS ORDERED: NORMAL SALINE 1000 ML 1,000 ML IV PRN (03:01)
[2019-08-28 05:16] VITALS: BP 152/102
== END 2019-08-28 05:16 | disposition home or self-care (01) ==
LOC: ER 18:27
DX: D57.00 Hb-SS disease with crisis, unspecified (principal); M54.5 Low back pain; R51 Headache; W18.30XA Fall on same level, unspecified, initial encounter; Y92.512 Supermarket, store or market as the place of occurrence of the external cause; Z90.49 Acquired absence of other specified parts of digestive tract
CPT/HCPCS: 96376; 99284; 96361 ×2; 96374; 96375; 36415; 85025; 85045; 80053; 81001; 70450; J1200; J1170 ×2; J7030 ×2

== ENCOUNTER 2019-08-29 16:54 | Emergency (ER) | payer MEDICAID ==
[2019-08-29] MEDS ORDERED: MORPHINE SULFATE 10 MG/ML INJ IV ONE (17:12)
[2019-08-29] MEDS ORDERED: NORMAL SALINE 1000 ML 1,000 ML IV ONE (17:12)
--- NOTE | 2019-08-29 17:12 | ER Document Report ---
ED Medical Screen (RME) - General Chief Complaint: Headache Stated Complaint: BACK PAIN, HEAD PAIN Time Seen by Provider: 08/29/19 17:08 Primary Care Provider: TISHA GOLDBERG MD [Primary Care Provider] - Follow up as needed TRAVEL OUTSIDE OF THE U.S. IN LAST 30 DAYS: No - HPI Notes: 08/29/19 17:10 Patient is a 24-year-old male with a history of sickle cell well-known to the emergency department who presents per the request of his [place] provider to get a work-up performed and then to have the attending give him/her a call. They did prefer him to drive to [place], but patient has been having a headache and back pain for the past 3 days and cannot 'drive that far feeling this way.' No fever or chest pain. I have treated and performed a rapid initial assessment of this patient. A comprehensive ED assessment and evaluation of the patient, analysis of test results and completion of medical decision making process will be conducted by additional ED providers. PHYSICAL EXAMINATION: GENERAL: Well-appearing, well-nourished and in no acute distress. A&Ox4. Answers questions appropriately. Neuro: Cranial nerves grossly intact. Eyes: PERRLA, EOMI bilaterally. - Related Data Allergies/Adverse Reactions: Coconut * [Coconut] Allergy (Mild, Verified 08/29/19 17:07) apixaban [From Eliquis] Allergy (Verified 08/29/19 17:07) rivaroxaban [From Xarelto] Allergy (Verified 08/29/19 17:07) transpore tape Allergy (Mild, Uncoded 08/29/19 17:07) Hives Past Medical History - Social History Family history: None Pulmonary Medical History: Reports: Hx Asthma, Hx Pneumonia Renal/ Medical History: Denies: Hx Peritoneal Dialysis Musculoskeltal Medical History: Reports Hx Musculoskeletal Deformity - Pain to multiple areas mostly right knee due to sickle cell anemia Past Surgical History: Reports: Hx Abdominal Surgery - Gallstones removal, Hx Cholecystectomy, Hx Orthopedic Surgery - Fluid drained from right foot, Hx Vascular Surgery - Port placementx2 (failed) - Immunizations Immunizations up to date: Yes Hx Diphtheria, Pertussis, Tetanus Vaccination: Yes Physical Exam - Vital signs Vitals: Temp Pulse Resp BP Pulse Ox 98.8 F 120 H 20 140/98 H 97 08/29/19 17:03 08/29/19 17:03 08/29/19 17:03 08/29/19 17:03 08/29/19 17:03 Course - Vital Signs Vital signs: Temp Pulse Resp BP Pulse Ox 98.8 F 120 H 20 140/98 H 97 08/29/19 17:03 08/29/19 17:03 08/29/19 17:03 08/29/19 17:03 08/29/19 17:03 Doctor's Discharge - Discharge Referrals: TISHA GOLDBERG MD [Primary Care Provider] - Follow up as needed
[2019-08-29] MEDS ORDERED: HYDROMORPHONE HCL INJ/PF 2 MG/ML AMPULE IV ONE ×2 (18:57→21:18)
[2019-08-29 18:59] LABS: APPEARANCE,URINE CLEAR; BILIRUBIN,URINE NEGATIVE (NEGATIVE); COLOR,URINE STRAW; GLUCOSE, URINE NEGATIVE (NEGATIVE); KETONES,URINE NEGATIVE (NEGATIVE); PROTEIN,URINE NEGATIVE (NEGATIVE); URINE SPECIFIC GRAVITY 1.011; UROBILINOGEN,URINE NEGATIVE mg/dL (<2.0)
--- NOTE | 2019-08-29 19:03 | ER Document Report ---
ED General - General TRAVEL OUTSIDE OF THE [place] IN LAST 30 DAYS: No - Related Data Home Medications: see medications list <KARINA VELAZCO - Last Filed: 08/29/19 22:17> <PIERO GODINEZ - Last Filed: 08/30/19 00:04> - General Chief Complaint: Back Pain Stated Complaint: BACK PAIN, HEAD PAIN Time Seen by Provider: 08/29/19 17:08 - HPI Notes: Patient well-known to this emergency department history of sickle cell disease presents with 1 week of headache. He was evaluated twice this week has had 2 CT of his head. He states that today he called his oncologist at [place] and they wanted him evaluated at this emergency department and then to be called. He denies any recent fevers chest pain shortness of breath or dysuria. He does have lower back pain similar to when he has pain from his sickle flareups. No nausea or vomiting. He states of the last 2 days he has been having blurred vision in his left eye and absence of any trauma. There are sensory deficits of his upper or lower extremities or face. (KARINA VELAZCO) - Related Data Allergies/Adverse Reactions: Coconut * [Coconut] Allergy (Mild, Verified 08/29/19 17:07) apixaban [From Eliquis] Allergy (Verified 08/29/19 17:07) rivaroxaban [From Xarelto] Allergy (Verified 08/29/19 17:07) transpore tape Allergy (Mild, Uncoded 08/29/19 17:07) Hives Past Medical History - Social History Smoking Status: Never Smoker Chew tobacco use (# tins/day): No Frequency of alcohol use: None Drug Abuse: None Family History: Reviewed & Not Pertinent, Arthritis, DM, Hypertension, Other - Sickle cell trait both parents and asthma Patient has suicidal ideation: No Patient has homicidal ideation: No Pulmonary Medical History: Reports: Hx Asthma, Hx Pneumonia Renal/ Medical History: Denies: Hx Peritoneal Dialysis Musculoskeletal Medical History: Reports Hx Musculoskeletal Deformity - Pain to multiple areas mostly right knee due to sickle cell anemia Past Surgical History: Reports: Hx Abdominal Surgery - Gallstones removal, Hx Cholecystectomy, Hx Orthopedic Surgery - Fluid drained from right foot, Hx Vascular Surgery - Port placementx2 (failed) - Immunizations Immunizations up to date: Yes Hx Diphtheria, Pertussis, Tetanus Vaccination: Yes Hx Pneumococcal Vaccination: 01/15/13 <KARINA VELAZCO - Last Filed: 08/29/19 22:17> Review of Systems - Review of Systems Constitutional: No symptoms reported EENT: No symptoms reported Cardiovascular: No symptoms reported Respiratory: No symptoms reported Gastrointestinal: No symptoms reported Genitourinary: No symptoms reported Male Genitourinary: No symptoms reported Musculoskeletal: See HPI Skin: No symptoms reported Hematologic/Lymphatic: No symptoms reported Neurological/Psychological: See HPI <KARINA VELAZCO - Last Filed: 08/29/19 22:17> Physical Exam - General General appearance: Appears well, Alert - HEENT Head: Normocephalic, Atraumatic Eyes: Normal Conjunctiva: Normal Cornea: Normal Extraocular movements intact: Yes Pupils: PERRL - Respiratory Respiratory status: No respiratory distress Chest status: Nontender Breath sounds: Normal Chest palpation: Normal - Cardiovascular Rhythm: Regular Heart sounds: Normal auscultation Murmur: No - Abdominal Inspection: Normal Distension: No distension Bowel sounds: Normal - Back Back: Normal, Nontender. No: Vertebra tenderness - Extremities General upper extremity: Normal inspection, Normal strength General lower extremity: Normal inspection, Normal strength - Neurological Neuro grossly intact: Yes Cognition: Normal Orientation: AAOx4 Cranial nerves: Normal Cerebellar coordination: Normal <KARINA VELAZCO - Last Filed: 08/29/19 22:17> - Vital signs Vitals: Temp Pulse Resp BP Pulse Ox 98.8 F 120 H 20 140/98 H 97 08/29/19 17:03 08/29/19 17:03 08/29/19 17:03 08/29/19 17:03 08/29/19 17:03 Course - Laboratory Result Diagrams: 08/29/19 18:35 08/29/19 18:35 <KARINA VELAZCO - Last Filed: 08/29/19 22:17> - Laboratory Result Diagrams: 08/29/19 18:35 08/29/19 18:35 <PIERO GODINEZ - Last Filed: 08/30/19 00:04> - Re-evaluation Re-evalutation: 08/29/19 19:04 Well-appearing in no acute distress at this time third visit in the last several days for similar complaints. Will run basic labs and call his oncologist per his request. Medications provided rate of note, he has had 2 normal CTs of his head do not feel the third is warranted at this time. He has no motor or neurologic deficits other than stating that he has blurred vision in his left eye that started approximately 2 days ago sudden onset. 08/29/19 21:46 Patient states that his blurred vision started 2 days ago upon chart review he has history of blurred vision on August 18 with an MRI performed showing no evidence of acute disease. Attempting to contact [facility] per the patient's request at this time. 08/29/19 22:[address] Soto who is on-call physician for the patient's trauma nurse Dr. Davey. She is aware of this patient history. I explained that in August 18 and an MRI with MRA showing no evidence of acute disease. He stated to me that his headache started 2 days ago but is documented that he had a headache as far back as August 18. He does not have any fevers this does not appear infectious in nature. He has had 3 CTs since that time as well. Do not feel another CT is warranted with normal neurologic exam. After further discussion Dr. Kat recommended transferring patient ER to ER to [place] for further evaluation and admittance to her service for further evaluation due to longevity of his headache (KARINA VELAZCO) - Vital Signs Vital signs: Temp Pulse Resp BP Pulse Ox 98.8 F 120 H 20 140/98 H 97 08/29/19 17:03 08/29/19 17:03 08/29/19 17:03 08/29/19 17:03 08/29/19 17:03 - Laboratory Laboratory results interpreted by me: 08/29/19 08/29/19 08/29/19 18:30 18:35 18:35 MCV 102 H MCH 34.3 H RDW 17.3 H BUN 22 H Alkaline Phosphatase 138 H Total Protein 8.9 H Albumin 5.4 H Urine Ascorbic Acid 20 H Discharge - Discharge Admitting Provider: Charles <KARINA VELAZCO - Last Filed: 08/29/19 22:17> <PIERO GODINEZ - Last Filed: 08/30/19 00:04> - Discharge Clinical Impression: Headache Qualifiers: Headache type: unspecified Headache chronicity pattern: unspecified pattern Intractability: not intractable Qualified Code(s): R51 - Headache Back pain Qualifiers: Back pain location: back pain in unspecified location Chronicity: unspecified Back pain laterality: midline Qualified Code(s): M54.89 - Other dorsalgia Condition: Good Disposition: [facility] Additional Instructions: Please follow-up with supply manager for an eye exam due to your blurred vision. If your symptoms continue please follow-up with your trauma nurse have a medicine review as prednisone can cause headaches and this is a common site reaction of prednisone. Prescriptions: Prochlorperazine Maleate [Compazine 10 mg Tablet] 10 mg PO ASDIR PRN #10 tablet PRN Reason:
[2019-08-29 19:23] LABS: ABSOLUTE RETICS # 0.062 10^6/uL (0.028-0.122); HEMATOCRIT 48.8 % (37.9-51.0); HEMOGLOBIN 16.5 g/dL (13.5-17.0); MEAN CORPUSCULAR HEMOGLOBIN 34.3 pg (27.0-33.4); MEAN CORPUSCULAR HGB CONC 33.7 g/dL (32.0-36.0); MEAN CORPUSCULAR VOLUME 102 fl (80-97); PLATELET COUNT 234 10^3/uL (150-450); RED CELL DISTRIBUTION WIDTH 17.3 % (11.5-14.0); RETICULOCYTE COUNT (AUTO) 1.29 % (0.66-2.85)
[2019-08-29 19:38] LABS: ALBUMIN 5.4 g/dL (3.5-5.0); ALKALINE PHOSPHATASE 138 U/L (38-126); ANION GAP 14 (5-19); ASPARTATE AMINO TRANSFERASE 52 U/L (17-59); BILIRUBIN,DIRECT 0.3 mg/dL (0.0-0.4); BILIRUBIN,TOTAL 0.8 mg/dL (0.2-1.3); BLOOD UREA NITROGEN 22 mg/dL (7-20); CALCIUM 10.1 mg/dL (8.4-10.2); CARBON DIOXIDE 27 mmol/L (22-30); CHLORIDE 103 mmol/L (98-107); GLUCOSE 80 mg/dL (75-110); POTASSIUM 4.4 mmol/L (3.6-5.0); TOTAL PROTEIN 8.9 g/dL (6.3-8.2)
[2019-08-29 19:53] LABS: ABSOLUTE LYMPHOCYTES# (MANUAL) 1.6 10^3/uL (0.5-4.7); ABSOLUTE MONOCYTES # (MANUAL) 0.6 10^3/uL (0.1-1.4); BASOPHILS % (MANUAL) 0 % (0-2); EOSINOPHILS % (MANUAL) 5 % (0-6); LYMPHOCYTES % (MANUAL) 22 % (13-45); MONOCYTES % (MANUAL) 8 % (3-13); SEGMENTED NEUTROPHILS % (MAN) 64 % (42-78); TOTAL CELLS COUNTED 100
[2019-08-29 19:59] LABS: ANISOCYTOSIS 1+; POIKILOCYTOSIS 1+; TOXIC GRANULATION 1+
[2019-08-29 20:00] LABS: HOWELL-JOLLY BODIES PRESENT; OVALOCYTES 2+; PLATELET COMMENT ADEQUATE; TARGET CELLS SLIGHT; TEAR DROP CELLS 1+
[2019-08-29] MEDS ORDERED: DIPHENHYDRAMINE HCL 50 MG/ML VIAL IV ONE (23:35)
[2019-08-30] MEDS ORDERED: HYDROMORPHONE HCL INJ/PF 2 MG/ML AMPULE IV ONE (00:02)
[2019-08-30 00:16] VITALS: BP 150/93
== END 2019-08-30 01:00 | disposition short-term general hospital (02) ==
LOC: ER 16:54
DX: R51 Headache (principal); M54.5 Low back pain; M54.9 Dorsalgia, unspecified; H53.8 Other visual disturbances; J45.909 Unspecified asthma, uncomplicated
CPT/HCPCS: 96376; 99284; 96361; 96374; 96375; 36415; 85025; 85045; 80053; 81001; J1200; J1170 ×2; J7030

== ENCOUNTER 2019-09-11 13:53 | Emergency (ER) | payer MEDICAID ==
[2019-09-11] MEDS ORDERED: DIPHENHYDRAMINE HCL 50 MG/ML VIAL IV ONE (14:08)
--- NOTE | 2019-09-11 14:09 | ER Document Report ---
ED Medical Screen (RME) - General Chief Complaint: Knee Pain Stated Complaint: RIGHT KNEE PAIN Time Seen by Provider: 09/11/19 14:06 TRAVEL OUTSIDE OF THE [place] IN LAST 30 DAYS: No - HPI Notes: 09/11/19 14:08 Patient is a 24-year-old male well-known emergency department presents for possible sickle cell crisis and right knee pain that began today. No fever, chest pain, or headache. I have treated and performed a rapid initial assessment of this patient. A comprehensive ED assessment and evaluation of the patient, analysis of test results and completion of medical decision making process will be conducted by additional ED providers. PHYSICAL EXAMINATION: GENERAL: Well-appearing, well-nourished and in no acute distress. A&Ox4. Answers questions appropriately. - Related Data Allergies/Adverse Reactions: Coconut * [Coconut] Allergy (Mild, Verified 08/29/19 17:07) apixaban [From Eliquis] Allergy (Verified 08/29/19 17:07) rivaroxaban [From Xarelto] Allergy (Verified 08/29/19 17:07) transpore tape Allergy (Mild, Uncoded 08/29/19 17:07) Hives Past Medical History - Social History Frequency of alcohol use: None Drug Abuse: None Family history: None Pulmonary Medical History: Reports: Hx Asthma, Hx Pneumonia Renal/ Medical History: Denies: Hx Peritoneal Dialysis Musculoskeltal Medical History: Reports Hx Musculoskeletal Deformity - Pain to multiple areas mostly right knee due to sickle cell anemia Past Surgical History: Reports: Hx Abdominal Surgery - Gallstones removal, Hx Cholecystectomy, Hx Orthopedic Surgery - Fluid drained from right foot, Hx Vascular Surgery - Port placementx2 (failed) - Immunizations Immunizations up to date: Yes Hx Diphtheria, Pertussis, Tetanus Vaccination: Yes Physical Exam - Vital signs Vitals: Temp Pulse Resp BP Pulse Ox 98.6 F 144 H 18 138/82 H 100 09/11/19 13:56 09/11/19 13:56 09/11/19 13:56 09/11/19 13:56 09/11/19 13:56 Course - Vital Signs Vital signs: Temp Pulse Resp BP Pulse Ox 98.6 F 144 H 18 138/82 H 100 09/11/19 13:56 09/11/19 13:56 09/11/19 13:56 09/11/19 13:56 09/11/19 13:56
[2019-09-11 14:48] LABS: ABSOLUTE BASOPHILS # (AUTO) 0.1 10^3/uL (0.0-0.2); ABSOLUTE EOSINOPHILS # (AUTO) 0.3 10^3/uL (0.0-0.6); ABSOLUTE LYMPHOCYTES (AUTO) 2.3 10^3/uL (0.5-4.7); ABSOLUTE MONOCYTES (AUTO) 0.9 10^3/uL (0.1-1.4); ABSOLUTE RETICS # 0.029 10^6/uL (0.028-0.122); BASOPHILS % (AUTO) 1.3 % (0-2); EOSINOPHILS % (AUTO) 2.9 % (0-6); HEMOGLOBIN 16.8 g/dL (13.5-17.0); LYMPHOCYTES % (AUTO) 26.7 % (13-45); MEAN CORPUSCULAR HEMOGLOBIN 34.2 pg (27.0-33.4); MEAN CORPUSCULAR HGB CONC 34.2 g/dL (32.0-36.0); MEAN CORPUSCULAR VOLUME 100 fl (80-97); MONOCYTES % (AUTO) 10.9 % (3-13); PLATELET COUNT 278 10^3/uL (150-450); RED BLOOD COUNT 4.91 10^6/uL (4.35-5.55); RED CELL DISTRIBUTION WIDTH 16.6 % (11.5-14.0); SEGMENTED NEUTROPHILS % (AUTO) 58.2 % (42-78); TOTAL CELLS COUNTED % (AUTO) 100 %; WHITE BLOOD COUNT 8.6 10^3/uL (4.0-10.5)
[2019-09-11] MEDS: NORMAL SALINE 1000 ML 1,000 ML IV PRN ×2 (14:52→16:00)
[2019-09-11] MEDS: HYDROMORPHONE HCL INJ/PF 2 MG/ML AMPULE IV PRN ×2 (14:59→16:43)
[2019-09-11 15:12] LABS: ALBUMIN 5.2 g/dL (3.5-5.0); ALKALINE PHOSPHATASE 141 U/L (38-126); ANION GAP 16 (5-19); ASPARTATE AMINO TRANSFERASE 47 U/L (17-59); BILIRUBIN,DIRECT 0.3 mg/dL (0.0-0.4); BILIRUBIN,TOTAL 0.5 mg/dL (0.2-1.3); BLOOD UREA NITROGEN 17 mg/dL (7-20); CALCIUM 10.1 mg/dL (8.4-10.2); CARBON DIOXIDE 21 mmol/L (22-30); CHLORIDE 107 mmol/L (98-107); GLUCOSE 156 mg/dL (75-110); POTASSIUM 4.1 mmol/L (3.6-5.0); TOTAL PROTEIN 8.4 g/dL (6.3-8.2)
--- NOTE | 2019-09-11 16:19 | ER Document Report ---
ED Extremity Problem, Lower - General Chief Complaint: Knee Pain Stated Complaint: RIGHT KNEE PAIN Time Seen by Provider: 09/11/19 14:06 Primary Care Provider: ANDREW WILLIS MD [Primary Care Provider] - Follow up tomorrow Mode of Arrival: Ambulatory Information source: Patient Notes: Patient presents complaining of right knee pain that started yesterday. 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 Patient states he does have osteonecrosis to the right knee. Patient denies any trauma to the knee. No fever. Patient denies any chest pain back pain headache or any other body aches at this time. TRAVEL OUTSIDE OF THE [place] IN LAST 30 DAYS: No - HPI Patient complains to provider of: Pain. No: Injury, Swelling Location: Knee Occurred: Yesterday Quality of pain: Achy Pain Level: 4 Context: denies: Fell Recent injury: No Exacerbated by: Movement, Walking - Related Data Allergies/Adverse Reactions: Coconut * [Coconut] Allergy (Mild, Verified 08/29/19 17:07) apixaban [From Eliquis] Allergy (Verified 08/29/19 17:07) rivaroxaban [From Xarelto] Allergy (Verified 08/29/19 17:07) transpore tape Allergy (Mild, Uncoded 08/29/19 17:07) Hives Past Medical History - General Information source: Patient - Social History Smoking Status: Never Smoker Frequency of alcohol use: None Drug Abuse: None Occupation: None Lives with: Family Family History: Reviewed & Not Pertinent, Arthritis, DM, Hypertension, Other - Sickle cell trait both parents and asthma Patient has suicidal ideation: No Patient has homicidal ideation: No - Medical History Medical History: Other - Sickle cell disease Pulmonary Medical History: Reports: Hx Asthma, Hx Pneumonia Renal/ Medical History: Denies: Hx Peritoneal Dialysis Musculoskeletal Medical History: Reports Hx Musculoskeletal Deformity - Pain to multiple areas mostly right knee due to sickle cell anemia Past Surgical History: Reports: Hx Abdominal Surgery - Gallstones removal, Hx Cholecystectomy, Hx Orthopedic Surgery - Fluid drained from right foot, Hx Vascular Surgery - Port placementx2 (failed) - Immunizations Immunizations up to date: Yes Hx Diphtheria, Pertussis, Tetanus Vaccination: Yes Hx Pneumococcal Vaccination: 01/15/13 Review of Systems - Review of Systems Constitutional: No symptoms reported. denies: Fever, Recent illness EENT: No symptoms reported Cardiovascular: No symptoms reported. denies: Chest pain, Dizziness, Lightheaded Respiratory: No symptoms reported. denies: Cough, Short of breath Gastrointestinal: No symptoms reported, Abdominal pain. denies: Nausea, Vomiting Genitourinary: No symptoms reported Male Genitourinary: No symptoms reported Musculoskeletal: Joint pain - Right knee joint tenderness. denies: Back pain Skin: No symptoms reported Hematologic/Lymphatic: No symptoms reported Neurological/Psychological: No symptoms reported. denies: Headaches Physical Exam - Vital signs Vitals: Temp Pulse Resp BP Pulse Ox 98.6 F 144 H 18 138/82 H 100 09/11/19 13:56 09/11/19 13:56 09/11/19 13:56 09/11/19 13:56 09/11/19 13:56 - General General appearance: Appears well, Alert In distress: None - HEENT Head: Normocephalic, Atraumatic Eyes: Normal Conjunctiva: Normal Nasal: Normal Mouth/Lips: Normal Mucous membranes: Normal Pharynx: Normal Neck: Normal, Supple. No: Lymphadenopathy - Respiratory Respiratory status: No respiratory distress Chest status: Nontender Breath sounds: Normal. No: Rales, Rhonchi, Stridor, Wheezing Chest palpation: Normal - Cardiovascular Rhythm: Tachycardia Heart sounds: S1 appreciated, S2 appreciated Murmur: No - Abdominal Inspection: Normal Tenderness: Nontender - Back Back: Normal, Nontender. No: CVA tenderness - Extremities General upper extremity: Normal inspection, Normal ROM General lower extremity: Normal inspection, Tender - right knee, Normal color, Normal ROM. No: Edema Hip: Normal, Nontender Thigh: Normal, Nontender Knee: Tender - right knee joint tenderness, no effusion, no laxity with varus or valgus maneuvers, no calar, Pain with ROM, Patellar tendon intact. No: Abrasion, Deformity, Dislocation, Ecchymosis, Instability, Joint effusion, Laxity with valgus stress, Laxity with varus stress Calf: Normal, Nontender Ankle: Normal, Nontender - Neurological Neuro grossly intact: Yes Cognition: Normal Orientation: AAOx4 Rodo Coma Scale Eye Opening: Spontaneous Rodo Coma Scale Verbal: Oriented Rodo Coma Scale Motor: Obeys Commands Rodo Coma Scale Total: 15 - Psychological Associated symptoms: Normal affect, Normal mood - Skin Skin Temperature: Warm Skin Moisture: Dry Skin Color: Normal Course - Re-evaluation Re-evalutation: 09/11/19 17:47 Patient reports pain is improved and is manageable. Patient feels he can manage his pain symptoms at home. Patient's diagnostic tests unremarkable at this time. Patient stable for discharge. - Vital Signs Vital signs: Temp Pulse Resp BP Pulse Ox 98.2 F 117 H 18 148/84 H 100 09/11/19 16:49 09/11/19 16:49 09/11/19 16:49 09/11/19 16:49 09/11/19 16:49 - Laboratory Result Diagrams: 09/11/19 14:30 09/11/19 14:30 Laboratory results interpreted by me: 09/11/19 09/11/19 14:30 14:30 MCV 100 H MCH 34.2 H RDW 16.6 H Retic Count (auto) 0.60 L Carbon Dioxide 21 L Glucose 156 H Alkaline Phosphatase 141 H Total Protein 8.4 H Albumin 5.2 H 09/11/19 20:07 Labs- Entire Visit 09/11/19 09/11/19 14:30 14:30 WBC 8.6 RBC 4.91 Hgb 16.8 Hct 49.0 MCV 100 H MCH 34.2 H MCHC 34.2 RDW 16.6 H Plt Count 278 Lymph % (Auto) 26.7 [place] % (Auto) 10.9 Eos % (Auto) 2.9 Baso % (Auto) 1.3 Reticulocyte # 0.029 Absolute Neuts (auto) 5.0 Absolute Lymphs (auto) 2.3 Absolute Monos (auto) 0.9 Absolute Eos (auto) 0.3 Absolute Basos (auto) 0.1 Seg Neutrophils % 58.2 Retic Count (auto) 0.60 L Sodium 143.7 Potassium 4.1 Chloride 107 Carbon Dioxide 21 L Anion Gap 16 BUN 17 Creatinine 0.90 Est GFR ( Amer) > 60 Est GFR (MDRD) Non-Af > 60 Glucose 156 H Calcium 10.1 Total Bilirubin 0.5 Direct Bilirubin 0.3 Neonat Total Bilirubin Not Reportable Neonat Direct Bilirubin Not Reportable Neonat Indirect Bili Not Reportable AST 47 ALT 35 Alkaline Phosphatase 141 H Total Protein 8.4 H Albumin 5.2 H Discharge - Discharge Clinical Impression: Right knee pain Qualifiers: Chronicity: chronic Qualified Code(s): M25.561 - Pain in right knee Sickle cell disease Qualifiers: Sickle-cell associated disorders: with unspecified crisis Qualified Code(s): D57.00 - Hb-SS disease with crisis, unspecified Condition: Stable Disposition: HOME, SELF-CARE Instructions: Intravenous (IV) Fluids ([facility]), Pain Medication Injection ([facility]) Additional Instructions: Return immediately for any new or worsening symptoms Followup with your primary care provider, call tomorrow to make a followup appointment Referrals: ANDREW WILLIS MD [Primary Care Provider] - Follow up tomorrow
[2019-09-11 17:10] VITALS: BP 148/84
== END 2019-09-11 18:05 | disposition home or self-care (01) ==
LOC: ER 13:53
DX: M87.9 Osteonecrosis, unspecified (principal); M25.561 Pain in right knee; G89.29 Other chronic pain; D57.00 Hb-SS disease with crisis, unspecified; J45.909 Unspecified asthma, uncomplicated; Z98.890 Other specified postprocedural states; Z91.018 Allergy to other foods; Z88.8 Allergy status to other drugs, medicaments and biological substances
CPT/HCPCS: 99283; 96361; 96374; 96375; 36415; 85025; 85045; 80053; J1200; J1170; J7030

== ENCOUNTER 2019-09-12 21:49 | Emergency (ER) | payer MEDICAID ==
[2019-09-12] MEDS ORDERED: HYDROMORPHONE HCL INJ/PF 2 MG/ML AMPULE IV ONE (22:03)
[2019-09-12] MEDS ORDERED: DIPHENHYDRAMINE HCL 50 MG/ML VIAL IV ONE ×2 (22:03→23:58)
[2019-09-12] MEDS ORDERED: NORMAL SALINE 1000 ML 1,000 ML IV ONE (22:03)
--- NOTE | 2019-09-12 22:04 | ER Document Report ---
ED Medical Screen (RME) - General Chief Complaint: Knee Pain Stated Complaint: RIGHT KNEE PAIN Time Seen by Provider: 09/12/19 22:01 Primary Care Provider: ANDREW WILLIS MD [Primary Care Provider] - Follow up as needed Mode of Arrival: Ambulatory Information source: Patient Notes: 24-year-old male patient with sickle cell presenting to the emergency department with right knee pain. Patient typically presents to the emergency department with right knee pain when he has a sickle cell crisis. Patient denies any chest pain or shortness of breath. Lung sounds are clear and equal bilaterally. I have greeted and performed a rapid initial assessment of this patient. A comprehensive ED assessment and evaluation of the patient, analysis of test results and completion of the medical decision making process will be conducted by additional ED providers. I have specifically instructed the patient or family members with the patient to immediately return to any nursing staff should anything change in the patient's condition or with their chief complaint. TRAVEL OUTSIDE OF THE [place] IN LAST 30 DAYS: No - Related Data Allergies/Adverse Reactions: Coconut * [Coconut] Allergy (Mild, Verified 08/29/19 17:07) apixaban [From Eliquis] Allergy (Verified 08/29/19 17:07) rivaroxaban [From Xarelto] Allergy (Verified 08/29/19 17:07) transpore tape Allergy (Mild, Uncoded 08/29/19 17:07) Hives Home Medications: 10mg oxycodone Past Medical History - Social History Family history: None Pulmonary Medical History: Reports: Hx Asthma, Hx Pneumonia Renal/ Medical History: Denies: Hx Peritoneal Dialysis Musculoskeltal Medical History: Reports Hx Musculoskeletal Deformity - Pain to multiple areas mostly right knee due to sickle cell anemia Past Surgical History: Reports: Hx Abdominal Surgery - Gallstones removal, Hx Cholecystectomy, Hx Orthopedic Surgery - Fluid drained from right foot, Hx Vasc ular Surgery - Port placementx2 (failed) - Immunizations Immunizations up to date: Yes Hx Diphtheria, Pertussis, Tetanus Vaccination: Yes Physical Exam - Vital signs Vitals: Temp Pulse Resp BP Pulse Ox 98.5 F 120 H 18 136/75 H 100 09/12/19 21:59 09/12/19 21:59 09/12/19 21:59 09/12/19 21:59 09/12/19 21:59 Course - Vital Signs Vital signs: Temp Pulse Resp BP Pulse Ox 98.5 F 120 H 18 136/75 H 100 09/12/19 21:59 09/12/19 21:59 09/12/19 21:59 09/12/19 21:59 09/12/19 21:59 Doctor's Discharge - Discharge Referrals: ANDREW WILLIS MD [Primary Care Provider] - Follow up as needed
[2019-09-12 23:33] LABS: ALKALINE PHOSPHATASE 102 U/L (38-126); ANION GAP 11 (5-19); ASPARTATE AMINO TRANSFERASE 32 U/L (17-59); BILIRUBIN,DIRECT 0.2 mg/dL (0.0-0.4); BILIRUBIN,TOTAL 0.4 mg/dL (0.2-1.3); BLOOD UREA NITROGEN 19 mg/dL (7-20); CALCIUM 9.3 mg/dL (8.4-10.2); CARBON DIOXIDE 23 mmol/L (22-30); CHLORIDE 108 mmol/L (98-107); GLUCOSE 98 mg/dL (75-110); POTASSIUM 3.7 mmol/L (3.6-5.0); TOTAL PROTEIN 6.8 g/dL (6.3-8.2)
[2019-09-12 23:34] LABS: ABSOLUTE BASOPHILS # (AUTO) 0.1 10^3/uL (0.0-0.2); ABSOLUTE EOSINOPHILS # (AUTO) 0.3 10^3/uL (0.0-0.6); ABSOLUTE LYMPHOCYTES (AUTO) 1.8 10^3/uL (0.5-4.7); ABSOLUTE MONOCYTES (AUTO) 0.8 10^3/uL (0.1-1.4); ABSOLUTE NEUT (AUTO) 4.2 10^3/uL (1.7-8.2); ABSOLUTE RETICS # 0.033 10^6/uL (0.028-0.122); BASOPHILS % (AUTO) 1.3 % (0-2); EOSINOPHILS % (AUTO) 4.5 % (0-6); HEMATOCRIT 38.7 % (37.9-51.0); LYMPHOCYTES % (AUTO) 25.4 % (13-45); MEAN CORPUSCULAR HGB CONC 34.3 g/dL (32.0-36.0); MEAN CORPUSCULAR VOLUME 99 fl (80-97); MONOCYTES % (AUTO) 10.6 % (3-13); PLATELET COUNT 239 10^3/uL (150-450); RED BLOOD COUNT 3.91 10^6/uL (4.35-5.55); RED CELL DISTRIBUTION WIDTH 16.7 % (11.5-14.0); RETICULOCYTE COUNT (AUTO) 0.85 % (0.66-2.85); SEGMENTED NEUTROPHILS % (AUTO) 58.2 % (42-78); TOTAL CELLS COUNTED % (AUTO) 100 %; WHITE BLOOD COUNT 7.2 10^3/uL (4.0-10.5)
[2019-09-12 23:35] LABS: HEMOGLOBIN 13.3 g/dL (13.5-17.0)
[2019-09-12] MEDS ORDERED: MORPHINE SULFATE 10 MG/ML INJ IV ONE (23:57)
--- NOTE | 2019-09-13 00:01 | ER Document Report ---
Entered by MEDINA MOSQUEDA SCRIBE 09/12/19 [id number] Acting as scribe for:GURWINDER GALLAGHER IV, MD ED General - General Chief Complaint: Knee Pain Stated Complaint: RIGHT KNEE PAIN Time Seen by Provider: 09/12/19 22:01 Primary Care Provider: ANDREW WILLIS MD [Primary Care Provider] - Follow up as needed Mode of Arrival: Ambulatory Information source: Patient Notes: Patient is a 24 year old male patient that presents to the emergency department today with complaints of right knee pain. Patient has sickle cell disease and he states that he always has right knee pain when his sickle cell flares. Patient does not have a mid level developer that he follows as he reports that Dr. Amanda's office was bought by Guy Macdonald about x2 months ago and he has "not found anyone else yet". TRAVEL OUTSIDE OF THE [place] IN LAST 30 DAYS: No - Related Data Allergies/Adverse Reactions: Coconut * [Coconut] Allergy (Mild, Verified 08/29/19 17:07) apixaban [From Eliquis] Allergy (Verified 08/29/19 17:07) rivaroxaban [From Xarelto] Allergy (Verified 08/29/19 17:07) transpore tape Allergy (Mild, Uncoded 08/29/19 17:07) Hives Home Medications: 10mg oxycodone Past Medical History - General Information source: Patient - Social History Smoking Status: Never Smoker Cigarette use (# per day): No Frequency of alcohol use: None Drug Abuse: None Lives with: Family Family History: Reviewed & Not Pertinent, Arthritis, DM, Hypertension, Other - Sickle cell trait both parents and asthma Patient has suicidal ideation: No Patient has homicidal ideation: No Pulmonary Medical History: Reports: Hx Asthma, Hx Pneumonia Musculoskeletal Medical History: Reports Hx Musculoskeletal Deformity - Pain to multiple areas mostly right knee due to sickle cell anemia Past Surgical History: Reports: Hx Abdominal Surgery - Gallstones removal, Hx Cholecystectomy, Hx Orthopedic Surgery - Fluid drained from right foot, Hx Vascular Surgery - Port placementx2 (failed) - Immunizations Immunizations up to date: Yes Hx Diphtheria, Pertussis, Tetanus Vaccination: Yes Hx Pneumococcal Vaccination: 01/15/13 Review of Systems - Review of Systems Constitutional: No symptoms reported EENT: No symptoms reported Cardiovascular: No symptoms reported Respiratory: No symptoms reported Gastrointestinal: No symptoms reported Genitourinary: No symptoms reported Male Genitourinary: No symptoms reported Musculoskeletal: See HPI, Joint pain - right knee pain Skin: No symptoms reported Hematologic/Lymphatic: No symptoms reported Neurological/Psychological: No symptoms reported -: Yes All other systems reviewed and negative Physical Exam - Vital signs Vitals: Temp Pulse Resp BP Pulse Ox 98.5 F 120 H 18 136/75 H 100 09/12/19 21:59 09/12/19 21:59 09/12/19 21:59 09/12/19 21:59 09/12/19 21:59 Interpretation: Normal - General General appearance: Appears well, Alert - HEENT Head: Normocephalic, Atraumatic Eyes: Normal Pupils: PERRL - Respiratory Respiratory status: No respiratory distress Chest status: Nontender Breath sounds: Normal Chest palpation: Normal - Cardiovascular Rhythm: Regular Heart sounds: Normal auscultation Murmur: No - Abdominal Inspection: Normal Distension: No distension Bowel sounds: Normal Tenderness: Nontender Organomegaly: No organomegaly - Back Back: Normal, Nontender - Extremities General upper extremity: Normal inspection, Nontender, Normal color, Normal ROM, Normal temperature General lower extremity: Normal inspection, Nontender, Normal color, Normal ROM, Normal temperature, Normal weight bearing. No: Jeannine's sign - Neurological Neuro grossly intact: Yes Cognition: Normal Orientation: AAOx4 Rodo Coma Scale Eye Opening: Spontaneous Rodo Coma Scale Verbal: Oriented [place]merer Coma Scale Motor: Obeys Commands Rodo Coma Scale Total: 15 Speech: Normal Motor strength normal: LUE, RUE, LLE, RLE Sensory: Normal - Psychological Associated symptoms: Normal affect, Normal mood - Skin Skin Temperature: Warm Skin Moisture: Dry Skin Color: Normal Course - Vital Signs Vital signs: Temp Pulse Resp BP Pulse Ox 98.5 F 120 H 18 136/75 H 100 09/12/19 21:59 09/12/19 21:59 09/12/19 21:59 09/12/19 21:59 09/12/19 21:59 - Laboratory Result Diagrams: 09/12/19 23:05 09/12/19 23:05 Laboratory results interpreted by me: 09/12/19 09/12/19 23:05 23:05 RBC 3.91 L Hgb 13.3 L D MCV 99 H MCH 34.0 H RDW 16.7 H Chloride 108 H Discharge - Discharge Clinical Impression: Right knee pain Qualifiers: Chronicity: unspecified Qualified Code(s): M25.561 - Pain in right knee Condition: Good Disposition: HOME, SELF-CARE Additional Instructions: Return to the Emergency Department without delay if any worse. HOME CARE INSTRUCTIONS & INFORMATION: Thank you for choosing us for your medical needs. We hope you're satisfied with the care you received. After you leave, you must properly care for your problem and, at the same time, observe its progress. Any condition can change. Some illnesses can change rapidly over hours or days. If your condition worsens, return to the Emergency Department or see your physician promptly. ABOUT YOUR X-RAYS AND EKG'S: If you had an EKG or X-rays taken, they have been read by the Emergency Physician. The X-rays and EKG's will also be read by a Radiologist or Glove Pairer within 24 hours. If discrepancies are noted, you will be notified by telephone. Please be certain the ED has a correct telephone number & address where you can be reached. Also, realize that some fractures or abnormalities do not show up on initial X-rays. If your symptoms continue, see your physician. ABOUT YOUR LABORATORY TEST: If you had laboratory tests, the results have been reviewed by the Emergency Physician. Some test results (for example cultures) may not be available for several days. You will be contacted if any test result shows you need additional treatment. Please be certain the ED has a correct telephone number and address where you can be reached. ABOUT YOUR MEDICATIONS: You will receive instructions on how to take your medicine on the prescription label you receive. Additional information may be provided by the Pharmacy. If you have questions afterwards, call the ED for clarification or further instructions. Some prescribed medications may cause drowsiness. Do not perform tasks such as driving a car or operating machinery without consulting your Pharmacist. If you feel you need a refill of pain medication, your condition will need re-evaluation. Please do not call for a refill of any medication. ABOUT YOUR SIGNATURE: Signature of this document acknowledges to followin. Understanding that you received emergency treatment and that you may be released before al medical problems are known or treated. Please be certain the ED has a correct phone number & address where you can be reached. 2. Acknowledgement that you will arrange for follow-up care as recommended. 3. Authorization for the Emergency Physician to provide information to your follow-up Physician in order to maximize your care. AT ANY TIME, IF YOUR SYMPTOMS CHANGE SIGNIFICANTLY OR WORSEN OR YOU DEVELOP NEW SYMPTOMS, RETURN TO THE EMERGENCY DEPARTMENT IMMEDIATELY FOR RE-EVALUATION. OUR GOAL IS TO PROVIDE EXCELLENT MEDICAL CARE! WE HOPE THAT WE HAVE MET YOUR EXPECTATIONS DURING YOUR EMERGENCY DEPARTMENT VISIT AND THAT YOU FEEL YOU HAVE RECEIVED EXCELLENT CARE! Referrals: ANDREW WILLIS MD [Primary Care Provider] - Follow up as needed LOGAN DING MD [ACTIVE STAFF] - 09/14/19 (CALL FOR APPOINTMENT) I personally performed the services described in the documentation, reviewed and edited the documentation which was dictated to the scribe in my presence, and it accurately records my words and actions.
[2019-09-13 00:56] VITALS: BP 137/97
== END 2019-09-13 00:59 | disposition home or self-care (01) ==
LOC: ER 21:49
DX: M25.561 Pain in right knee (principal); D57.00 Hb-SS disease with crisis, unspecified; Z88.8 Allergy status to other drugs, medicaments and biological substances; Z79.899 Other long term (current) drug therapy
CPT/HCPCS: 96376; 99283; 96361; 96374; 96375; 36415; 85025; 85045; 80053; J1200 ×2; J2270; J1170; J7030

== ENCOUNTER 2019-09-15 20:13 | Emergency (ER) | payer MEDICAID ==
[2019-09-15] MEDS ORDERED: NORMAL SALINE 1000 ML 1,000 ML IV PRN (20:46)
--- NOTE | 2019-09-15 20:46 | ER Document Report ---
ED Medical Screen (RME) - General Chief Complaint: Back Pain Stated Complaint: PER PT UNABLE TO LINK THOUGHTS/BACK PAIN Time Seen by Provider: 09/15/19 20:42 Primary Care Provider: ANDREW WILLIS MD [Primary Care Provider] - Follow up as needed TRAVEL OUTSIDE OF THE [place] IN LAST 30 DAYS: No - HPI Notes: 09/15/19 20:45 Patient is a 24-year-old male well-known emergency department complaining of right knee and back pain consistent with sickle cell crisis in the past. Patient states that this is not as severe as it has been. states that he has been up for 24 hours packing and helping with the baby and this evening at dinner started making some comments that were not on topic to the conversation and got her worried so she brought him here. Patient states he does have a little headache on his right side which she has had before. Denies any fever, head injury, neck pain, changes in vision/speech/hearing, URI, sore throat, chest pain, palpitations, syncope, cough, shortness of breath, wheeze, dyspnea, abdominal pain, nausea/vomiting/diarrhea, urinary retention, dysuria, hematuria, loss of control of bowel or bladder, numbness/tingling, saddle anesthesia, muscle paralysis/weakness, or rash. I have treated and performed a rapid initial assessment of this patient. A comprehensive ED assessment and evaluation of the patient, analysis of test results and completion of medical decision making process will be conducted by additional ED providers. PHYSICAL EXAMINATION: GENERAL: Well-appearing, well-nourished and in no acute distress. A&Ox4. Answ ers questions appropriately. No obvious confusion noted. Neuro: NIH 0, GCS 15, cranial nerves grossly intact. - Related Data Allergies/Adverse Reactions: Coconut * [Coconut] Allergy (Mild, Verified 09/15/19 20:41) apixaban [From Eliquis] Allergy (Verified 09/15/19 20:41) rivaroxaban [From Xarelto] Allergy (Verified 09/15/19 20:41) transpore tape Allergy (Mild, Uncoded 08/29/19 17:07) Hives Past Medical History - Social History Family history: None Pulmonary Medical History: Reports: Hx Asthma, Hx Pneumonia Renal/ Medical History: Denies: Hx Peritoneal Dialysis Musculoskeltal Medical History: Reports Hx Musculoskeletal Deformity - Pain to multiple areas mostly right knee due to sickle cell anemia Past Surgical History: Reports: Hx Abdominal Surgery - Gallstones removal, Hx Cholecystectomy, Hx Orthopedic Surgery - Fluid drained from right foot, Hx Vascular Surgery - Port placementx2 (failed) - Immunizations Immunizations up to date: Yes Hx Diphtheria, Pertussis, Tetanus Vaccination: Yes Physical Exam - Vital signs Vitals: Temp Pulse Resp BP Pulse Ox 98.6 F 107 H 20 137/97 H 100 09/15/19 20:22 09/15/19 20:22 09/15/19 20:22 09/15/19 20:22 09/15/19 20:22 Course - Vital Signs Vital signs: Temp Pulse Resp BP Pulse Ox 98.6 F 107 H 20 137/97 H 100 09/15/19 20:22 09/15/19 20:22 09/15/19 20:22 09/15/19 20:22 09/15/19 20:22 Doctor's Discharge - Discharge Referrals: ANDREW WILLIS MD [Primary Care Provider] - Follow up as needed
[2019-09-15] MEDS ORDERED: DIPHENHYDRAMINE HCL 50 MG/ML VIAL IV ONE (20:47)
[2019-09-15] MEDS ORDERED: HYDROMORPHONE HCL INJ/PF 2 MG/ML AMPULE IV ONE (20:47)
[2019-09-15 21:25] LABS: ABSOLUTE RETICS # 0.052 10^6/uL (0.028-0.122); HEMATOCRIT 39.8 % (37.9-51.0); HEMOGLOBIN 13.8 g/dL (13.5-17.0); MEAN CORPUSCULAR HEMOGLOBIN 34.7 pg (27.0-33.4); MEAN CORPUSCULAR HGB CONC 34.6 g/dL (32.0-36.0); MEAN CORPUSCULAR VOLUME 100 fl (80-97); PLATELET COUNT 239 10^3/uL (150-450); RED BLOOD COUNT 3.97 10^6/uL (4.35-5.55); RED CELL DISTRIBUTION WIDTH 16.7 % (11.5-14.0); RETICULOCYTE COUNT (AUTO) 1.32 % (0.66-2.85)
[2019-09-15 21:31] LABS: APPEARANCE,URINE CLEAR; BILIRUBIN,URINE NEGATIVE (NEGATIVE); COLOR,URINE YELLOW; GLUCOSE, URINE NEGATIVE (NEGATIVE); KETONES,URINE NEGATIVE (NEGATIVE); PROTEIN,URINE NEGATIVE (NEGATIVE); UROBILINOGEN,URINE NEGATIVE mg/dL (<2.0)
[2019-09-15 21:42] LABS: ALBUMIN 4.5 g/dL (3.5-5.0); ALKALINE PHOSPHATASE 105 U/L (38-126); ANION GAP 11 (5-19); ASPARTATE AMINO TRANSFERASE 35 U/L (17-59); BILIRUBIN,DIRECT 0.3 mg/dL (0.0-0.4); BILIRUBIN,TOTAL 0.5 mg/dL (0.2-1.3); BLOOD UREA NITROGEN 13 mg/dL (7-20); CALCIUM 9.4 mg/dL (8.4-10.2); CARBON DIOXIDE 25 mmol/L (22-30); CHLORIDE 104 mmol/L (98-107); GLUCOSE 82 mg/dL (75-110); POTASSIUM 3.4 mmol/L (3.6-5.0); TOTAL PROTEIN 7.3 g/dL (6.3-8.2)
[2019-09-15 21:52] LABS: ABSOLUTE LYMPHOCYTES# (MANUAL) 0.9 10^3/uL (0.5-4.7); ABSOLUTE MONOCYTES # (MANUAL) 1.4 10^3/uL (0.1-1.4); ANISOCYTOSIS 1+; BAND NEUTROPHILS % (MANUAL) 1 % (3-5); BASOPHILS % (MANUAL) 0 % (0-2); EOSINOPHILS % (MANUAL) 3 % (0-6); LYMPHOCYTES % (MANUAL) 10 % (13-45); MONOCYTES % (MANUAL) 15 % (3-13); SEGMENTED NEUTROPHILS % (MAN) 71 % (42-78); TARGET CELLS SLIGHT; TOTAL CELLS COUNTED 100
[2019-09-15 21:53] LABS: PLATELET COMMENT ADEQUATE
[2019-09-16] MEDS ORDERED: DIPHENHYDRAMINE HCL 25 MG CAPSULE PO ONE (03:32)
[2019-09-16] MEDS ORDERED: HYDROMORPHONE HCL INJ/PF 2 MG/ML AMPULE IM ONE (03:32)
[2019-09-16] MEDS ORDERED: CARVEDILOL 12.5 MG TABLET PO ONE (03:38)
--- NOTE | 2019-09-16 03:39 | ER Document Report ---
ED General - General Chief Complaint: Back Pain Stated Complaint: PER PT UNABLE TO LINK THOUGHTS/BACK PAIN Time Seen by Provider: 09/15/19 20:42 Primary Care Provider: ANDREW WILLIS MD [Primary Care Provider] - Follow up tomorrow Mode of Arrival: Ambulatory Information source: Patient, Relative Notes: 24-year-old male presented to ED for complaint of right knee and back pain. This is his normal sickle cell pain. He states is not as severe as it has been in the past. Patient states that he has been up however with the baby and packing for the last 24 hours and at nighttime around dinnertime he did become a little confused. He states he was having a headache on the right side of his head at that time. He states he is not had any injuries. states he did recently have a lumbar puncture and had to have patch for leakage fluids. She states she was in [place] about a week or so ago for this. Patient was to get IV fluids and IV pain medicine when he first came in. He has not had an IV started and has not gotten his IV pain medicine or fluids. He is speaking in full sentences and his reticulocyte cell count is normal. We will give the Dilaudid IM given his Benadryl p.o. that he takes with pain medicine and get a chest x- ray for his pedal edema. Patient's blood pressure is elevated at this time I will give him a dose of his blood pressure medicine that he supposed to take in the morning carvedilol 5 mg p.o. TRAVEL OUTSIDE OF THE [place] IN LAST 30 DAYS: No - HPI Onset: This afternoon Onset/Duration: Intermittent Quality of pain: Achy Severity: Moderate Pain Level: 3 Associated symptoms: Other - Back and knee pain this is his normal sickle cell pain Exacerbated by: Movement Relieved by: Denies Similar symptoms previously: Yes Recently seen / treated by doctor: Yes - Related Data Allergies/Adverse Reactions: Coconut * [Coconut] Allergy (Mild, Verified 09/15/19 20:41) apixaban [From Eliquis] Allergy (Verified 09/15/19 20:41) rivaroxaban [From Xarelto] Allergy (Verified 09/15/19 20:41) transpore tape Allergy (Mild, Uncoded 08/29/19 17:07) Hives Home Medications: ACYCLOVIR. CARVIDILOL. ABLODIPINE. VIT-D. GABAPENTIN. CYMBALTA. BONE MARROW TRANSPLANT MED Past Medical History - General Information source: Patient, Relative - Social History Smoking Status: Never Smoker Frequency of alcohol use: None Drug Abuse: None Lives with: Family Family History: Reviewed & Not Pertinent, Arthritis, DM, Hypertension, Other - Sickle cell trait both parents and asthma Patient has suicidal ideation: No Patient has homicidal ideation: No - Medical History Medical History: Other - Sickle cell - Past Medical History Cardiac Medical History: Reports: None Pulmonary Medical History: Reports: Hx Asthma, Hx Pneumonia EENT Medical History: Reports: None Neurological Medical History: Reports: None Endocrine Medical History: Reports: None Renal/ Medical History: Reports: None Malignancy Medical History: Reports None GI Medical History: Reports: None Musculoskeletal Medical History: Reports Hx Musculoskeletal Deformity - Pain to multiple areas mostly right knee due to sickle cell anemia, Reports Other - Sickle cell Skin Medical History: Reports None Psychiatric Medical History: Reports: None Traumatic Medical History: Reports: None Past Surgical History: Reports: Hx Abdominal Surgery - Gallstones removal, Hx Cholecystectomy, Hx Orthopedic Surgery - Fluid drained from right foot, Hx Vascular Surgery - Port placementx2 (failed) - Immunizations Immunizations up to date: Yes Hx Diphtheria, Pertussis, Tetanus Vaccination: Yes Hx Pneumococcal Vaccination: 01/15/13 Review of Systems - Review of Systems Constitutional: No symptoms reported EENT: No symptoms reported Cardiovascular: No symptoms reported Respiratory: No symptoms reported Gastrointestinal: No symptoms reported Genitourinary: No symptoms reported Male Genitourinary: No symptoms reported Musculoskeletal: No symptoms reported, Back pain, Joint pain - Right knee pain. denies: Joint swelling, Muscle pain Skin: No symptoms reported Hematologic/Lymphatic: No symptoms reported Neurological/Psychological: Confusion - states he had some confusion earlie r he is alert and oriented now, Headaches -: Yes All other systems reviewed and negative Physical Exam - Vital signs Vitals: Temp Pulse Resp BP Pulse Ox 98.6 F 107 H 20 137/97 H 100 09/15/19 20:22 09/15/19 20:22 09/15/19 20:22 09/15/19 20:22 09/15/19 20:22 Interpretation: Normal - General General appearance: Appears well, Alert - HEENT Head: Normocephalic, Atraumatic Eyes: Normal Pupils: PERRL - Respiratory Respiratory status: No respiratory distress Chest status: Nontender Breath sounds: Normal Chest palpation: Normal - Cardiovascular Rhythm: Regular Heart sounds: Normal auscultation Murmur: No - Abdominal Inspection: Normal Distension: No distension Bowel sounds: Normal Tenderness: Nontender Organomegaly: No organomegaly - Back Back: Normal, Nontender - Extremities General upper extremity: Normal inspection, Nontender, Normal color, Normal ROM, Normal temperature General lower extremity: Normal color, Normal ROM, Normal temperature, Normal weight bearing. No: Jeannine's sign Knee: Tender, Pain with ROM, Patellar tendon intact. No: Abrasion, Deformity, Dislocation, Drawer's test instability, Ecchymosis, Instability, Joint effusion, Laxity with valgus stress, Laxity with varus stress, Popliteal fossa tender, Tender joint line Foot: Edema - Neurological Neuro grossly intact: Yes Cognition: Normal Orientation: AAOx4 Rodo Coma Scale Eye Opening: Spontaneous [place] Coma Scale Verbal: Oriented [place] Coma Scale Motor: Obeys Commands Rodo Coma Scale Total: 15 Speech: Normal Motor strength normal: LUE, RUE, LLE, RLE Sensory: Normal - Psychological Associated symptoms: Normal affect, Normal mood - Skin Skin Temperature: Warm Skin Moisture: Dry Skin Color: Normal Course - Re-evaluation Re-evalutation: 09/16/19 09:49 Patient was treated with IM Dilaudid and was able to take p.o. fluids with no difficulty. His reticulocyte count was negative. He was alert oriented respirations regular nonlabored speaking in full sentences. After he got relief from his pain he was discharged home. He was given 1 dose of his blood pressure medication due to an elevated blood pressure. - Vital Signs Vital signs: Temp Pulse Resp BP Pulse Ox 98.7 F 107 H 18 131/89 H 99 09/16/19 05:30 09/15/19 20:22 09/16/19 05:01 09/16/19 05:01 09/16/19 05:01 - Laboratory Result Diagrams: 09/15/19 21:05 09/15/19 21:05 Laboratory results interpreted by me: 09/15/19 09/15/19 21:05 21:05 RBC 3.97 L MCV 100 H MCH 34.7 H RDW 16.7 H Band Neutrophils % 1 L Lymphocytes % (Manual) 10 L Monocytes % (Manual) 15 H Potassium 3.4 L - Diagnostic Test Radiology reviewed: Image reviewed, Reports reviewed Discharge - Discharge Clinical Impression: Back pain Qualifiers: Back pain location: low back pain Chronicity: chronic Back pain laterality: right Sciatica presence: without sciatica Qualified Code(s): M54.5 - Low back pain Right knee pain Qualifiers: Chronicity: chronic Qualified Code(s): M25.561 - Pain in right knee Sickle cell anemia Qualifiers: Sickle-cell associated disorders: without crisis Qualified Code(s): D57.1 - Sickle-cell disease without crisis Condition: Stable Disposition: HOME, SELF-CARE Additional Instructions: You were seen today for pain to your right low back and right knee which is your normal sickle cell pain. You were treated the pain with Dilaudid 1 mg IM and Benadryl and the pain was improved. You stated the Dilaudid always makes her itch without the Benadryl. You state you have your pain medicine at home that you can take... Blood pressure was also elevated and a dose of carvedilol and your blood pressure has come down. Please follow-up with your primary care and your sickle cell provider for this episode. Your reticular cell count was not elevated today. Please continue your present treatment until you follow-up with your primary doctor. FOLLOW-UP CARE: If you have been referred to a physician for follow-up care, call the physicians office for an appointment as you were instructed or within the next two days. If you experience worsening or a significant change in your symptoms, notify the physician immediately or return to the Emergency Department at any time for re-evaluation. Referrals: ANDREW WILLIS MD [Primary Care Provider] - Follow up tomorrow
--- NOTE | 2019-09-16 04:12 | RADIOLOGY REPORT (SQ) ---
EXAM DESCRIPTION: XR CHEST 2 VIEWS COMPLETED DATE/TME: 09/16/2019 03:33 CLINICAL HISTORY: 24 years, Male, pedal edema COMPARISON: August 17, 2019 NUMBER OF VIEWS: 2 TECHNIQUE: PA and lateral LIMITATIONS: None. FINDINGS: Cardiomediastinal silhouette is of normal size. Interstitial prominence, similar to prior. Patchy sclerosis particularly within the humeral heads, similar to prior. IMPRESSION: No interval change from prior copyright 2011 [employer]- All Rights Reserved
[2019-09-16 05:10] VITALS: BP 131/89
== END 2019-09-16 05:35 | disposition home or self-care (01) ==
LOC: ER 20:13
DX: D57.1 Sickle-cell disease without crisis (principal); M54.9 Dorsalgia, unspecified; M25.561 Pain in right knee; G89.29 Other chronic pain; R60.0 Localized edema; R51 Headache; J45.909 Unspecified asthma, uncomplicated; I10 Essential (primary) hypertension; Z79.899 Other long term (current) drug therapy; Z98.890 Other specified postprocedural states; Z91.018 Allergy to other foods; Z88.8 Allergy status to other drugs, medicaments and biological substances
CPT/HCPCS: 99284; 96372; 36415; 85025; 85045; 80053; 81001; 71046; J3490; J1170

== ENCOUNTER 2019-10-21 07:25 | Emergency (ER) | payer MEDICAID ==
[2019-10-21] MEDS ORDERED: NORMAL SALINE 1000 ML 1,000 ML IV ONE (09:00)
[2019-10-21] MEDS ORDERED: IPRATROPIUM/ALBUTEROL 0.5-2.5 MG/3 ML AMPUL NEB ONE (09:05)
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
[2019-10-21] MEDS ORDERED: DIPH/PERTUSS(ACELL)/TETANUS VAC/PF 0.5 ML SYR (>=10YO) IM ONE (09:09)
[2019-10-21 09:43] LABS: ABSOLUTE BASOPHILS # (AUTO) 0.1 10^3/uL (0.0-0.2); ABSOLUTE EOSINOPHILS # (AUTO) 0.3 10^3/uL (0.0-0.6); ABSOLUTE LYMPHOCYTES (AUTO) 1.5 10^3/uL (0.5-4.7); ABSOLUTE MONOCYTES (AUTO) 0.9 10^3/uL (0.1-1.4); ABSOLUTE NEUT (AUTO) 1.9 10^3/uL (1.7-8.2); ABSOLUTE RETICS # 0.035 10^6/uL (0.028-0.122); BASOPHILS % (AUTO) 1.3 % (0-2); EOSINOPHILS % (AUTO) 6.5 % (0-6); HEMATOCRIT 42.4 % (37.9-51.0); HEMOGLOBIN 14.5 g/dL (13.5-17.0); LYMPHOCYTES % (AUTO) 32.2 % (13-45); MEAN CORPUSCULAR HEMOGLOBIN 34.6 pg (27.0-33.4); MEAN CORPUSCULAR HGB CONC 34.2 g/dL (32.0-36.0); MEAN CORPUSCULAR VOLUME 101 fl (80-97); MONOCYTES % (AUTO) 18.8 % (3-13); PLATELET COUNT 204 10^3/uL (150-450); RED BLOOD COUNT 4.19 10^6/uL (4.35-5.55); RED CELL DISTRIBUTION WIDTH 17.1 % (11.5-14.0); RETICULOCYTE COUNT (AUTO) 0.84 % (0.66-2.85); SEGMENTED NEUTROPHILS % (AUTO) 41.2 % (42-78); TOTAL CELLS COUNTED % (AUTO) 100 %; WHITE BLOOD COUNT 4.7 10^3/uL (4.0-10.5)
[2019-10-21 10:03] LABS: ALBUMIN 4.1 g/dL (3.5-5.0); ALKALINE PHOSPHATASE 136 U/L (38-126); ANION GAP 7 (5-19); ASPARTATE AMINO TRANSFERASE 40 U/L (17-59); BILIRUBIN,TOTAL 0.3 mg/dL (0.2-1.3); BLOOD UREA NITROGEN 14 mg/dL (7-20); CALCIUM 8.7 mg/dL (8.4-10.2); CARBON DIOXIDE 25 mmol/L (22-30); CHLORIDE 108 mmol/L (98-107); GLUCOSE 99 mg/dL (75-110); POTASSIUM 4.4 mmol/L (3.6-5.0); TOTAL PROTEIN 6.6 g/dL (6.3-8.2)
[2019-10-21] MEDS ORDERED: DIPHENHYDRAMINE HCL 50 MG/ML VIAL IV ONE ×2 (10:07→12:51)
[2019-10-21] MEDS ORDERED: HYDROMORPHONE HCL INJ/PF 2 MG/ML AMPULE IV ONE ×3 (10:07→12:51)
[2019-10-21] MEDS ORDERED: AMPICILLIN SOD/SULBACTAM 3 GM VIAL IV ONE (10:08)
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
--- NOTE | 2019-10-21 10:23 | RADIOLOGY REPORT (SQ) ---
EXAM DESCRIPTION: CHEST 2 VIEWS COMPLETED DATE/TIME: 10/21/2019 10:03 am REASON FOR STUDY: cough, hx recent pneumonia COMPARISON: 09/16/2019 EXAM PARAMETERS: NUMBER OF VIEWS: two views TECHNIQUE: Digital Frontal and Lateral radiographic views of the chest acquired. RADIATION DOSE: NA LIMITATIONS: none FINDINGS: LUNGS AND PLEURA: Persistent perihilar interstitial airspace disease. No interval change from prior study. No effusions. MEDIASTINUM AND HILAR STRUCTURES: No masses or contour abnormalities. HEART AND VASCULAR STRUCTURES: Heart normal size. No evidence for failure. BONES: No acute findings. HARDWARE: None in the chest. OTHER: No other significant finding. IMPRESSION: No interval change in the chest. TECHNICAL DOCUMENTATION: JOB ID: [id number] 2010 [employer]- All Rights Reserved Reading location - IP/workstation name: [email or web address]
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
[2019-10-21 12:16] LABS: APPEARANCE,URINE CLEAR; BILIRUBIN,URINE NEGATIVE (NEGATIVE); COLOR,URINE STRAW; GLUCOSE, URINE NEGATIVE (NEGATIVE); KETONES,URINE NEGATIVE (NEGATIVE); LEUKOCYTE ESTERASE,URINE NEGATIVE (NEGATIVE); NITRITE,URINE NEGATIVE (NEGATIVE); PROTEIN,URINE NEGATIVE (NEGATIVE); URINE SPECIFIC GRAVITY 1.005; UROBILINOGEN,URINE NEGATIVE mg/dL (<2.0)
[2019-10-21 13:41] VITALS: BP 133/88
== END 2019-10-21 15:01 | disposition home or self-care (01) ==
LOC: ER 07:25
DX: S61.452A Open bite of left hand, initial encounter (principal); S60.473A Other superficial bite of left middle finger, initial encounter; S60.475A Other superficial bite of left ring finger, initial encounter; Y04.1XXA Assault by human bite, initial encounter; S00.12XA Contusion of left eyelid and periocular area, initial encounter; Y04.2XXA Assault by strike against or bumped into by another person, initial encounter; J06.9 Acute upper respiratory infection, unspecified; R05 Cough; J45.909 Unspecified asthma, uncomplicated; Z91.018 Allergy to other foods; Z88.8 Allergy status to other drugs, medicaments and biological substances
CPT/HCPCS: 36415; 87040; 87070; 87205; 85025; 85045; 80053; 81001; 71046; 73130; 70486; 90715; J1200; J0295; J1170; J7030; J7620; 96374; 96375; 99284

== ENCOUNTER 2019-11-11 19:29 | Emergency (ER) | payer MEDICAID ==
--- NOTE | 2019-11-11 20:47 | ER Document Report ---
ED Medical Screen (RME) - General Chief Complaint: Sickle Cell Crisis Stated Complaint: BACK PAIN/SICKLE CELL CRISIS Time Seen by Provider: 11/11/19 20:45 Primary Care Provider: ANDREW WILLIS MD [Primary Care Provider] - Follow up as needed Mode of Arrival: Ambulatory Information source: Patient Notes: 24-year-old male presented to ED for sickle cell pain. He states the pain is in his back and legs as it usually is when he has a sickle cell crisis. He is alert oriented respirations regular nonlabored speaking in full sentences. He states he is taking his pain medicine that he has at home for this crisis. I have greeted and performed a rapid initial assessment of this patient. A comprehensive ED assessment and evaluation of the patient, analysis of test results and completion of medical decision making process will be conducted by an additional ED providers. TRAVEL OUTSIDE OF THE [place] IN LAST 30 DAYS: No - Related Data Allergies/Adverse Reactions: Coconut * [Coconut] Allergy (Mild, Verified 11/11/19 20:44) apixaban [From Eliquis] Allergy (Verified 11/11/19 20:44) rivaroxaban [From Xarelto] Allergy (Verified 11/11/19 20:44) transpore tape Allergy (Mild, Uncoded 11/11/19 20:44) Hives Past Medical History - Social History Family history: None Pulmonary Medical History: Reports: Hx Asthma, Hx Pneumonia Renal/ Medical History: Denies: Hx Peritoneal Dialysis Musculoskeltal Medical History: Reports Hx Musculoskeletal Deformity - Pain to multiple areas mostly right knee due to sickle cell anemia Past Surgical History: Reports: Hx Abdominal Surgery - Gallstones removal, Hx Cholecystectomy, Hx Orthopedic Surgery - Fluid drained from right foot, Hx Vascular Surgery - Port placementx2 (failed) - Immunizations Immunizations up to date: Yes Hx Diphtheria, Pertussis, Tetanus Vaccination: Yes Physical Exam - Vital signs Vitals: Temp Pulse Resp BP Pulse Ox 98.8 F 114 H 17 116/79 95 11/11/19 20:35 11/11/19 20:35 11/11/19 20:35 11/11/19 20:35 11/11/19 20:35 Course - Vital Signs Vital signs: Temp Pulse Resp BP Pulse Ox 98.8 F 114 H 17 116/79 95 11/11/19 20:35 11/11/19 20:35 11/11/19 20:35 11/11/19 20:35 11/11/19 20:35 Doctor's Discharge - Discharge Referrals: ANDREW WILLIS MD [Primary Care Provider] - Follow up as needed
[2019-11-11] MEDS ORDERED: OXYCODONE-ACETAMINOPHEN 5-325 MG TABLET PO ONE (20:48)
[2019-11-12] MEDS ORDERED: MORPHINE SULFATE 10 MG/ML INJ IV ONE (01:27)
[2019-11-12] MEDS ORDERED: DIPHENHYDRAMINE HCL 50 MG/ML VIAL IV ONE (01:34)
--- NOTE | 2019-11-12 01:40 | ER Document Report ---
ED General - General Chief Complaint: Sickle Cell Crisis Stated Complaint: BACK PAIN/SICKLE CELL CRISIS Time Seen by Provider: 11/11/19 20:45 Primary Care Provider: ANDREW WILLIS MD [Primary Care Provider] - Follow up as needed Mode of Arrival: Ambulatory Notes: 24-year-old male with history of sickle cell presents with chest pain and back pain that started 2 days ago. Patient states he usually gets back pain with the sickle cell pain and sometimes will get chest pain with that as well however states he has had acute chest syndrome in the past. Patient denies shortness of breath, coughing, leg pain, nausea/vomiting. Patient states the highest that his temperature got was 99. Patient states he tried to take his home meds with little relief. TRAVEL OUTSIDE OF THE [place] IN LAST 30 DAYS: No - Related Data Allergies/Adverse Reactions: Coconut * [Coconut] Allergy (Mild, Verified 11/11/19 20:46) apixaban [From Eliquis] Allergy (Verified 11/11/19 20:46) rivaroxaban [From Xarelto] Allergy (Verified 11/11/19 20:46) transpore tape Allergy (Mild, Uncoded 11/11/19 20:46) Hives Home Medications: folic acid, hyroxyurea Past Medical History - General Information source: Patient - Social History Smoking Status: Never Smoker Chew tobacco use (# tins/day): No Frequency of alcohol use: None Drug Abuse: None Family History: Reviewed & Not Pertinent, Arthritis, DM, Hypertension, Other - Sickle cell trait both parents and asthma Patient has suicidal ideation: No Patient has homicidal ideation: No Pulmonary Medical History: Reports: Hx Asthma, Hx Pneumonia Renal/ Medical History: Denies: Hx Peritoneal Dialysis Musculoskeletal Medical History: Reports Hx Musculoskeletal Deformity - Pain to multiple areas mostly right knee due to sickle cell anemia Past Surgical History: Reports: Hx Abdominal Surgery - Gallstones removal, Hx Cholecystectomy, Hx Orthopedic Surgery - Fluid drained from right foot, Hx Vascular Surgery - Port placementx2 (failed) - Immunizations Immunizations up to date: Yes Hx Diphtheria, Pertussis, Tetanus Vaccination: Yes Hx Pneumococcal Vaccination: 01/15/13 Review of Systems - Review of Systems Notes: Constitutional: Negative for fever. HENT: Negative for sore throat. Eyes: Negative for visual changes. Cardiovascular: Positive for chest pain. Respiratory: Negative for shortness of breath. Gastrointestinal: Negative for abdominal pain, vomiting or diarrhea. Genitourinary: Negative for dysuria. Musculoskeletal: Positive for back pain. Skin: Negative for rash. Neurological: Negative for headaches, weakness or numbness. 10 point ROS negative except as marked above and in HPI. Physical Exam - Vital signs Vitals: Temp Pulse Resp BP Pulse Ox 98.8 F 114 H 17 116/79 95 11/11/19 20:35 11/11/19 20:35 11/11/19 20:35 11/11/19 20:35 11/11/19 20:35 - Notes Notes: GENERAL: Well-appearing, well-nourished and uncomfortable. HEAD: Atraumatic, normocephalic. EYES: Extraocular movements intact, sclera anicteric, conjunctiva are normal. NECK: Normal range of motion, supple without lymphadenopathy or JVD. LUNGS: Breath sounds clear to auscultation bilaterally and equal. No wheezes rales or rhonchi. HEART: Mildly tachycardic without murmurs, rubs or gallops. EXTREMITIES: Normal range of motion, no pitting or edema. No clubbing or cyanosis. NEUROLOGICAL: Cranial nerves II through XII grossly intact. Normal speech, normal gait. PSYCH: Normal mood, normal affect. SKIN: Warm, Dry, normal turgor, no rashes or lesions noted. Course - Re-evaluation Re-evalutation: 11/12/19 24-year-old male with history of sickle cell presents with chest pain and back pain for the past 2 to 3 days. Patient states back pain is usually worse sickle cell pain is and sometimes he will have chest pain with it. History of acute chest syndrome in the past. Up-to-date was consulted and they recommend EKG, CBC, reticulocyte count, chest x-ray with AP and lateral, and blood and sputum cultures. Morphine 4 mg IV was ordered along with 2 L of normal saline. 11/12/19 03:01 CXR shows no radiographic evidence of consolidation (a new segmental radiographic pulmonary infiltrate) which is diagnostic of acute chest syndrome. Retic count is negative. Labwork is unremarkable. 11/12/19 03:07 Pt asking for more pain medications per RN. Dilaudid ordered. 11/12/19 05:25 Pt was feeling better. Pt given follow up with corrections corporal, Dr. Ding. Pt is not acute crisis. Pt given strict return precautions. All questions/concerns addressed prior to discharge. - Vital Signs Vital signs: Temp Pulse Resp BP Pulse Ox 98.5 F 109 H 19 124/86 H 98 11/12/19 04:48 11/11/19 22:06 11/12/19 02:09 11/12/19 02:09 11/12/19 02:09 - Laboratory Result Diagrams: 11/12/19 02:00 11/12/19 02:00 Laboratory results interpreted by me: 11/12/19 11/12/19 02:00 02:00 MCV 101 H MCH 35.0 H RDW 16.3 H Eos % (Auto) 6.2 H Potassium 5.3 H Glucose 117 H Alkaline Phosphatase 230 H Total Protein 8.4 H Discharge - Discharge Clinical Impression: Back pain Qualifiers: Back pain location: back pain in unspecified location Chronicity: unspecified Back pain laterality: unspecified Qualified Code(s): M54.9 - Dorsalgia, unspecified Chest pain Qualifiers: Chest pain type: unspecified Qualified Code(s): R07.9 - Chest pain, unspecified Condition: Stable Disposition: HOME, SELF-CARE Additional Instructions: Your retic count was normal. Your chest x-ray was normal. Your workup does not indicate that you are in acute chest syndrome. Please take your home narcotic medications and follow up with corrections corporal, Dr. Ding and your primary care doctor in 2-3 days. Return to ER for any worsening symptoms, including chest pain, fever, shortness of breath, cough, abdominal pain, visual changes, neck pain/stiffness, right upper quadrant pain, painful erection, hip/shoulder pain, or any other symptoms that are concerning to you. Forms: Return to Work Referrals: ANDREW WILLIS MD [Primary Care Provider] - Follow up in 3-5 days LOGAN DING MD [ACTIVE STAFF] - Follow up in 3-5 days
--- NOTE | 2019-11-12 02:16 | RADIOLOGY REPORT (SQ) ---
EXAM DESCRIPTION: XR CHEST 2 VIEWS COMPLETED DATE/TME: 11/12/2019 01:32 CLINICAL HISTORY: 24 years, Male, chest pain, sickle cell pain COMPARISON: July 21, 2019 NUMBER OF VIEWS: 2 TECHNIQUE: LIMITATIONS: None. FINDINGS: Cardiomediastinal silhouette is normal. Diffuse interstitial prominence, perhaps mildly progressive. Sclerosis of both humeral heads. Is there a history of sickle cell disease? IMPRESSION: Interstitial process perhaps mildly progressive from prior. Sclerosis of the humeral heads most prominently. Is there a history of sickle cell disease? copyright 2010 [employer]- All Rights Reserved
[2019-11-12] MEDS: NORMAL SALINE 1000 ML 1,000 ML IV PRN ×2 (02:18→03:30)
[2019-11-12 02:19] LABS: ABSOLUTE EOSINOPHILS # (AUTO) 0.6 10^3/uL (0.0-0.6); ABSOLUTE LYMPHOCYTES (AUTO) 1.5 10^3/uL (0.5-4.7); ABSOLUTE MONOCYTES (AUTO) 0.8 10^3/uL (0.1-1.4); ABSOLUTE NEUT (AUTO) 6.7 10^3/uL (1.7-8.2); BASOPHILS % (AUTO) 0.4 % (0-2); EOSINOPHILS % (AUTO) 6.2 % (0-6); HEMATOCRIT 48.8 % (37.9-51.0); HEMOGLOBIN 16.9 g/dL (13.5-17.0); LYMPHOCYTES % (AUTO) 15.4 % (13-45); MEAN CORPUSCULAR HGB CONC 34.7 g/dL (32.0-36.0); MEAN CORPUSCULAR VOLUME 101 fl (80-97); MONOCYTES % (AUTO) 8.8 % (3-13); PLATELET COUNT 313 10^3/uL (150-450); RED BLOOD COUNT 4.84 10^6/uL (4.35-5.55); RED CELL DISTRIBUTION WIDTH 16.3 % (11.5-14.0); RETICULOCYTE COUNT (AUTO) 0.82 % (0.66-2.85); SEGMENTED NEUTROPHILS % (AUTO) 69.2 % (42-78); TOTAL CELLS COUNTED % (AUTO) 100 %; WHITE BLOOD COUNT 9.6 10^3/uL (4.0-10.5)
[2019-11-12 02:43] LABS: ALBUMIN 4.9 g/dL (3.5-5.0); ALKALINE PHOSPHATASE 230 U/L (38-126); ANION GAP 12 (5-19); ASPARTATE AMINO TRANSFERASE 44 U/L (17-59); BILIRUBIN,DIRECT 0.1 mg/dL (0.0-0.4); BILIRUBIN,TOTAL 0.6 mg/dL (0.2-1.3); BLOOD UREA NITROGEN 15 mg/dL (7-20); CALCIUM 9.9 mg/dL (8.4-10.2); CARBON DIOXIDE 29 mmol/L (22-30); CHLORIDE 100 mmol/L (98-107); GLUCOSE 117 mg/dL (75-110); POTASSIUM 5.3 mmol/L (3.6-5.0); TOTAL PROTEIN 8.4 g/dL (6.3-8.2)
[2019-11-12] MEDS ORDERED: HYDROMORPHONE HCL INJ/PF 2 MG/ML AMPULE IV ONE (03:07)
[2019-11-12 05:43] VITALS: BP 130/99
--- NOTE | 2019-11-12 09:58 | EKG REPORT ---
SEVERITY:- NORMAL ECG - SINUS RHYTHM : Confirmed by: Xenia Delgado 12-Nov-2019 09:58:12
== END 2019-11-12 05:43 | disposition home or self-care (01) ==
LOC: ER 19:29
DX: D57.00 Hb-SS disease with crisis, unspecified (principal); R07.9 Chest pain, unspecified; M54.9 Dorsalgia, unspecified; Z90.49 Acquired absence of other specified parts of digestive tract
CPT/HCPCS: 93005; 99284; 96361; 96374; 96375; 36415; 87040; 87205; 85025; 85045; 80053; 71046; 93010; J1200; J2270; J1170; J7030

== ENCOUNTER 2020-03-19 18:58 | Emergency (ER) | payer MEDICAID ==
[2020-03-19] MEDS ORDERED: HYDROMORPHONE HCL INJ/PF 2 MG/ML AMPULE IV ONE ×2 (19:13→21:49)
[2020-03-19] MEDS ORDERED: PROMETHAZINE HCL INJ 25 MG/1 ML VIAL IV ONE (19:13)
--- NOTE | 2020-03-19 19:14 | ER Document Report ---
ED Medical Screen (RME) - General Chief Complaint: Sickle Cell Crisis Stated Complaint: SICKLE CELL CRISIS Time Seen by Provider: 03/19/20 19:10 Primary Care Provider: ANDREW WILLIS MD [Primary Care Provider] - Follow up as needed Mode of Arrival: Ambulatory Information source: Patient Notes: 24-year-old male patient with history of sickle cell presenting to the emergency department chief complaint of right knee pain over the last 3 days and chest pain started this morning. Patient reports these are the areas that he usually has pain with a sickle cell crisis. He states his last sickle cell crisis was 3 months ago. He denies any other symptoms today Lung sounds clear and equal bilaterally. No acute distress noted. I have greeted and performed a rapid initial assessment of this patient. A comprehensive ED assessment and evaluation of the patient, analysis of test results and completion of the medical decision making process will be conducted by additional ED providers. I have specifically instructed the patient or family members with the patient to immediately return to any nursing staff should anything change in the patient's condition or with their chief complaint. TRAVEL OUTSIDE OF THE [place] IN LAST 30 DAYS: No - Related Data Allergies/Adverse Reactions: Coconut * [Coconut] Allergy (Mild, Verified 11/11/19 20:46) apixaban [From Eliquis] Allergy (Verified 11/11/19 20:46) rivaroxaban [From Xarelto] Allergy (Verified 11/11/19 20:46) transpore tape Allergy (Mild, Uncoded 11/11/19 20:46) Hives Past Medical History - Social History Family history: None Pulmonary Medical History: Reports: Hx Asthma, Hx Pneumonia Renal/ Medical History: Denies: Hx Peritoneal Dialysis Musculoskeltal Medical History: Reports Hx Musculoskeletal Deformity - Pain to multiple areas mostly right knee due to sickle cell anemia Past Surgical History: Reports: Hx Abdominal Surgery - Gallstones removal, Hx Cholecystectomy, Hx Orthopedic Surgery - Fluid drained from right foot, Hx Vascular Surgery - Port placementx2 (failed) - Immunizations Immunizations up to date: Yes Hx Diphtheria, Pertussis, Tetanus Vaccination: Yes Physical Exam - Vital signs Vitals: Temp Pulse Resp BP Pulse Ox 99.0 F 106 H 18 130/87 H 97 03/19/20 19:01 03/19/20 19:01 03/19/20 19:01 03/19/20 19:01 03/19/20 19:01 Course - Vital Signs Vital signs: Temp Pulse Resp BP Pulse Ox 99.0 F 106 H 18 130/87 H 97 03/19/20 19:01 03/19/20 19:01 03/19/20 19:01 03/19/20 19:01 03/19/20 19:01 Doctor's Discharge - Discharge Referrals: ANDREW WILLIS MD [Primary Care Provider] - Follow up as needed
--- NOTE | 2020-03-19 19:32 | RADIOLOGY REPORT (SQ) ---
EXAM DESCRIPTION: CHEST 2 VIEWS IMAGES COMPLETED DATE/TIME: 03/19/2020 7:22 pm REASON FOR STUDY: CHEST PAIN/SICKLE CELL COMPARISON: Chest x-ray 11/12/2019, 10/21/2019. EXAM PARAMETERS: NUMBER OF VIEWS: two views TECHNIQUE: Digital Frontal and Lateral radiographic views of the chest acquired. RADIATION DOSE: NA LIMITATIONS: none FINDINGS: LUNGS AND PLEURA: No consolidation, pneumothorax or pleural effusion. Prominent interstit ial markings are probably representing chronic changes of sickle cell disease. MEDIASTINUM AND HILAR STRUCTURES: No masses or contour abnormalities. HEART AND VASCULAR STRUCTURES: Heart normal size. No evidence for failure. BONES: Chronic changes with H-shaped vertebral bodies. HARDWARE: None in the chest. OTHER: Surgical clips at the right upper quadrant. IMPRESSION: NO ACUTE RADIOGRAPHIC FINDING IN THE CHEST. TECHNICAL DOCUMENTATION: JOB ID: [id number] 2010 [employer]- All Rights Reserved Reading location - IP/workstation name: [email or web address]
[2020-03-19] MEDS: NORMAL SALINE 1000 ML 1,000 ML IV PRN ×2 (20:15→22:22)
[2020-03-19 20:25] LABS: ABSOLUTE BASOPHILS # (AUTO) 0.1 10^3/uL (0.0-0.2); ABSOLUTE EOSINOPHILS # (AUTO) 0.2 10^3/uL (0.0-0.6); ABSOLUTE LYMPHOCYTES (AUTO) 2.6 10^3/uL (0.5-4.7); ABSOLUTE MONOCYTES (AUTO) 0.9 10^3/uL (0.1-1.4); BASOPHILS % (AUTO) 0.6 % (0-2); EOSINOPHILS % (AUTO) 1.7 % (0-6); LYMPHOCYTES % (AUTO) 24.3 % (13-45); MEAN CORPUSCULAR HEMOGLOBIN 33.4 pg (27.0-33.4); MEAN CORPUSCULAR HGB CONC 34.3 g/dL (32.0-36.0); MEAN CORPUSCULAR VOLUME 97 fl (80-97); MONOCYTES % (AUTO) 8.6 % (3-13); PLATELET COUNT 272 10^3/uL (150-450); RED BLOOD COUNT 5.69 10^6/uL (4.35-5.55); RED CELL DISTRIBUTION WIDTH 15.1 % (11.5-14.0); RETICULOCYTE COUNT (AUTO) 0.52 % (0.66-2.85); SEGMENTED NEUTROPHILS % (AUTO) 64.8 % (42-78); TOTAL CELLS COUNTED % (AUTO) 100 %; WHITE BLOOD COUNT 10.9 10^3/uL (4.0-10.5)
[2020-03-19 20:26] LABS: HEMATOCRIT 55.4 % (37.9-51.0)
[2020-03-19 21:28] LABS: ALBUMIN 4.9 g/dL (3.5-5.0); ALKALINE PHOSPHATASE 118 U/L (38-126); ANION GAP 11 (5-19); ASPARTATE AMINO TRANSFERASE 48 U/L (17-59); BILIRUBIN,DIRECT 0.1 mg/dL (0.0-0.4); BILIRUBIN,TOTAL 0.8 mg/dL (0.2-1.3); BLOOD UREA NITROGEN 25 mg/dL (7-20); CALCIUM 9.6 mg/dL (8.4-10.2); CARBON DIOXIDE 23 mmol/L (22-30); CHLORIDE 105 mmol/L (98-107); GLUCOSE 105 mg/dL (75-110); POTASSIUM 4.3 mmol/L (3.6-5.0)
[2020-03-19] MEDS ORDERED: DIPHENHYDRAMINE HCL 50 MG/ML VIAL IV ONE (22:17)
[2020-03-19 22:34] VITALS: BP 124/93
--- NOTE | 2020-03-19 22:37 | ER Document Report ---
Entered by LY CHRISTIAN SCRIBE 03/19/202035 Acting as scribe for:GURWINDER GALLAGHER IV, MD ED General Pain - General Chief Complaint: Sickle Cell Crisis Stated Complaint: SICKLE CELL CRISIS Time Seen by Provider: 03/19/20 19:10 Primary Care Provider: ANDREW WILLSI MD [Primary Care Provider] - Follow up as needed Mode of Arrival: Ambulatory Information source: Patient Notes: This 24 year old male patient with a history of sickle cell disease presents to the ED today with complaints of right knee pain for the past x3 days and chest pain that started this morning. Pain is a 3/5 in severity at this time. Patient reports that these are his typical symptoms when he has a flare-up. 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 He is followed by hematology at [facility]. Denies fever or chills. TRAVEL OUTSIDE OF THE [place] IN LAST 30 DAYS: No - Related Data Allergies/Adverse Reactions: Coconut * [Coconut] Allergy (Mild, Verified 03/19/20 19:14) apixaban [From Eliquis] Allergy (Verified 03/19/20 19:14) rivaroxaban [From Xarelto] Allergy (Verified 03/19/20 19:14) transpore tape Allergy (Mild, Uncoded 03/19/20 19:14) Hives Past Medical History - General Information source: Patient - Social History Smoking Status: Never Smoker Cigarette use (# per day): No Chew tobacco use (# tins/day): No Smoking Education Provided: No Frequency of alcohol use: Rare Drug Abuse: None Family History: Reviewed & Not Pertinent, Arthritis, DM, Hypertension, Other - Sickle cell trait both parents and asthma Patient has suicidal ideation: No Patient has homicidal ideation: No - Medical History Medical History: Other - Hx Sickle Cell Disease Pulmonary Medical History: Reports: Hx Asthma, Hx Pneumonia Musculoskeletal Medical History: Reports Hx Musculoskeletal Deformity - Pain to multiple areas mostly right knee due to sickle cell anemia Past Surgical History: Reports: Hx Abdominal Surgery - Gallstones removal, Hx Cholecystectomy, Hx Orthopedic Surgery - Fluid drained from right foot, Hx Vascular Surgery - Port placementx2 (failed) - Immunizations Immunizations up to date: Yes Hx Diphtheria, Pertussis, Tetanus Vaccination: Yes Hx Pneumococcal Vaccination: 01/15/13 Review of Systems - Review of Systems Constitutional: See HPI. denies: Chills, Fever EENT: No symptoms reported Cardiovascular: See HPI, Chest pain Respiratory: No symptoms reported Gastrointestinal: No symptoms reported Genitourinary: No symptoms reported Male Genitourinary: No symptoms reported Musculoskeletal: See HPI, Joint pain Skin: No symptoms reported Hematologic/Lymphatic: No symptoms reported Neurological/Psychological: No symptoms reported -: Yes All other systems reviewed and negative Physical Exam - Vital signs Vitals: Temp Pulse Resp BP Pulse Ox 99.0 F 106 H 18 130/87 H 97 03/19/20 19:01 03/19/20 19:01 03/19/20 19:01 03/19/20 19:01 03/19/20 19:01 - General General appearance: Appears well, Alert In distress: None - HEENT Head: Normocephalic, Atraumatic Eyes: Normal Pupils: PERRL - Respiratory Respiratory status: No respiratory distress Chest status: Nontender Breath sounds: Normal Chest palpation: Normal - Cardiovascular Rhythm: Regular Heart sounds: Normal auscultation Murmur: No Friction rub: No Gallop: None auscultated - Abdominal Inspection: Normal Distension: No distension Bowel sounds: Normal Tenderness: Nontender - Abdomen soft Organomegaly: No organomegaly - Back Back: Normal, Nontender - Extremities General upper extremity: Normal inspection General lower extremity: Normal inspection - Neurological Neuro grossly intact: Yes Orientation: AAOx4 Costilla Coma Scale Eye Opening: Spontaneous Rodo Coma Scale Verbal: Oriented Rodo Coma Scale Motor: Obeys Commands Rodo Coma Scale Total: 15 - Psychological Associated symptoms: Normal affect, Normal mood - Skin Skin Temperature: Warm Skin Moisture: Dry Skin Color: Normal Course - Re-evaluation Re-evalutation: 03/19/20 22:40 Patient states he is feeling better at this time. Results of ED MSE were discussed with patient and patient's mother. All questions were answered prior to discharge. Emergency signs and symptoms, reasons to return to the emergency department discussed with patient and patient's mother. - Vital Signs Vital signs: Temp Pulse Resp BP Pulse Ox 99 F 106 H 22 H 124/93 H 100 03/19/20 19:10 03/19/20 19:01 03/19/20 22:26 03/19/20 22:26 03/19/20 22:26 - Laboratory Result Diagrams: 03/19/20 19:34 03/19/20 21:01 Laboratory results interpreted by me: 03/19/20 03/19/20 19:34 21:01 WBC 10.9 H RBC 5.69 H Hgb 19.0 H Hct 55.4 H RDW 15.1 H Retic Count (auto) 0.52 L BUN 25 H - Diagnostic Test Radiology reviewed: Reports reviewed - EKG Interpretation by Me Additional EKG results interpreted by me: 03/19/20 22:41 EKG obtained on 03/19/2020 at 1904 hrs. was interpreted by this MD. Findings: Sinus tachycardia, rate 104, normal axis, P waves preceding QRS complexes, QRS complexes appear narrow, there are no obvious patterns of ST segment elevation or depression present to suggest acute myocardial ischemia or infarction. Impression normal sinus rhythm with nonspecific ST segments. Discharge - Discharge Clinical Impression: Sickle cell pain crisis Condition: Stable Disposition: HOME, SELF-CARE Additional Instructions: Return to the Emergency Department without delay if any worse. HOME CARE INSTRUCTIONS & INFORMATION: Thank you for choosing us for your medical needs. We hope you're satisfied with the care you received. After you leave, you must properly care for your problem and, at the same time, observe its progress. Any condition can change. Some illnesses can change rapidly over hours or days. If your condition worsens, return to the Emergency Department or see your physician promptly. ABOUT YOUR X-RAYS AND EKG'S: If you had an EKG or X-rays taken, they have been read by the Emergency Physician. The X-rays and EKG's will also be read by a Radiologist or Curtain Mender within 24 hours. If discrepancies are noted, you will be notified by telephone. Please be certain the ED has a correct telephone number & address where you can be reached. Also, realize that some fractures or abnormalities do not show up on initial X-rays. If your symptoms continue, see your physician. ABOUT YOUR LABORATORY TEST: If you had laboratory tests, the results have been reviewed by the Emergency Physician. Some test results (for example cultures) may not be available for several days. You will be contacted if any test result shows you need additional treatment. Please be certain the ED has a correct telephone number and address where you can be reached. ABOUT YOUR MEDICATIONS: You will receive instructions on how to take your medicine on the prescription label you receive. Additional information may be provided by the Pharmacy. If you have questions afterwards, call the ED for clarification or further instructions. Some prescribed medications may cause drowsiness. Do not perform tasks such as driving a car or operating machinery without consulting your Pharmacist. If you feel you need a refill of pain medication, your condition will need re-evaluation. Please do not call for a r efill of any medication. ABOUT YOUR SIGNATURE: Signature of this document acknowledges to followin. Understanding that you received emergency treatment and that you may be released before al medical problems are known or treated. Please be certain the ED has a correct phone number & address where you can be reached. 2. Acknowledgement that you will arrange for follow-up care as recommended. 3. Authorization for the Emergency Physician to provide information to your follow-up Physician in order to maximize your care. AT ANY TIME, IF YOUR SYMPTOMS CHANGE SIGNIFICANTLY OR WORSEN OR YOU DEVELOP NEW SYMPTOMS, RETURN TO THE EMERGENCY DEPARTMENT IMMEDIATELY FOR RE-EVALUATION. OUR GOAL IS TO PROVIDE EXCELLENT MEDICAL CARE! WE HOPE THAT WE HAVE MET YOUR EXPECTATIONS DURING YOUR EMERGENCY DEPARTMENT VISIT AND THAT YOU FEEL YOU HAVE RECEIVED EXCELLENT CARE! Sickle Cell Crisis You have "sickle cell crisis." Sickle cell disease is caused by abnormal hemoglobin. This hemoglobin can deform red blood cells into a sickle shape. These abnormal blood cells can block blood vessels. This causes the pain of sic kle cell crisis. Sickle cell crisis can occur any time. But attacks are more likely with acute infection, dehydration, or altitude change. A crisis usually causes pain in the legs, back, abdomen, and chest. Sometimes the pain may ease and return later. The usual treatment is oxygen, pain medication, IV fluids, and treatment of infection. Attacks may take a couple of days to resolve. Return if the pain becomes more severe, or if there are new symptoms. Referrals: ANDREW WILLIS MD [Primary Care Provider] - Follow up as needed I personally performed the services described in the documentation, reviewed and edited the documentation which was dictated to the scribe in my presence, and it accurately records my words and actions.
--- NOTE | 2020-03-20 08:40 | EKG REPORT ---
SEVERITY:- BORDERLINE ECG - SINUS TACHYCARDIA PROBABLE LEFT ATRIAL ABNORMALITY : Confirmed by: Semaj Zavaleta MD 20-Mar-2020 08:40:09
== END 2020-03-19 22:54 | disposition home or self-care (01) ==
LOC: ER 18:58
DX: D57.00 Hb-SS disease with crisis, unspecified (principal); M25.561 Pain in right knee; R07.9 Chest pain, unspecified; R00.0 Tachycardia, unspecified; J45.909 Unspecified asthma, uncomplicated; Z94.81 Bone marrow transplant status; Z91.018 Allergy to other foods; Z88.8 Allergy status to other drugs, medicaments and biological substances
CPT/HCPCS: 93005; 96376; 99284; 96361; 96374; 96375; 36415; 85025; 85045; 80053; 71046; 93010; J1200; J1170; J2550; J7030

== ENCOUNTER → 2020-04-20 | Outpatient (CLI) | payer MEDICAID ==
--- NOTE | 2020-04-21 09:21 | RADIOLOGY REPORT (SQ) ---
EXAM DESCRIPTION: KNEE RIGHT 3 VIEWS IMAGES COMPLETED DATE/TIME: 04/20/2020 4:19 pm REASON FOR STUDY: PAIN IN RIGHT KNEE M25.561 PAIN IN RIGHT KNEE M25.551 PAIN IN RIGHT HIP COMPARISON: 07/05/2019 NUMBER OF VIEWS: Three views. TECHNIQUE: AP, lateral, and sunrise patella radiographic images acquired of the right knee. LIMITATIONS: None. FINDINGS: MINERALIZATION: Re- demonstration of heterogeneous marrow in this patient with known sickl e cell disease. No acute fracture or dislocation. No evidence of avascular necrosis. BONES: No acute fracture or dislocation. No worrisome bone lesions. JOINT: No effusion. SOFT TISSUES: No soft tissue swelling. No radio-opaque foreign body. OTHER: No other significant finding. IMPRESSION: No acute osseous abnormality. Re- demonstration of heterogeneous mineralization consist ent with patient's history of sickle cell disease. TECHNICAL DOCUMENTATION: JOB ID: [id number] [email or web address] All Rights Reserved Reading location - IP/workstation name: [email or web address]
--- NOTE | 2020-04-21 09:29 | RADIOLOGY REPORT (SQ) ---
EXAM DESCRIPTION: HIP RIGHT AP/LATERAL IMAGES COMPLETED DATE/TIME: 04/20/2020 4:19 pm REASON FOR STUDY: PAIN IN RIGHT HIP M25.561 PAIN IN RIGHT KNEE M25.551 PAIN IN RIGHT HIP COMPARISON: None. NUMBER OF VIEWS: Two views. TECHNIQUE: AP pelvis and additional frog-leg view of the right hip. LIMITATIONS: None. FINDINGS: MINERALIZATION: Heterogeneous mineralization in this patient with known sickle cell diseas e. No evidence of avascular necrosis. 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 No significant CAM deformities. RIGHT HIP: No fracture or dislocation. No worrisome bone lesions. No evidence of hemarthrosis. LEFT HIP: No fracture or dislocation. No worrisome bone lesions. No evidence of hemarthrosis. Mild acetabular crossover. PUBIS AND ISCHIUM: No fracture. PELVIS: No fracture. SACRUM: No fracture or dislocation. No worrisome bone lesions. LOWER LUMBAR SPINE: No fracture or dislocation. No worrisome bone lesions. No significant disc disea se. SOFT TISSUES: No findings. OTHER: No other significant finding. IMPRESSION: Heterogeneous mineralization consistent with patient's history of sickle cell disease. No evidence of avascular necrosis. 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
== END ==
LOC: OD 15:54
PROVIDERS: ATTEND Nurse Practitioner Adult Health
DX: M25.561 Pain in right knee (principal); M25.551 Pain in right hip

== ENCOUNTER 2020-05-03 13:49 | Emergency (ER) | payer MEDICAID ==
[2020-05-03] MEDS ORDERED: ONDANSETRON HCL INJ/PF 4 MG/2 ML SDV IV ONE ×2 (15:41→19:33)
[2020-05-03] MEDS ORDERED: NORMAL SALINE 1000 ML 2,000 ML IV ONE ×2 (15:41→19:34)
[2020-05-03] MEDS ORDERED: HYDROMORPHONE HCL INJ/PF 2 MG/ML AMPULE IV ONE ×3 (15:41→21:42)
[2020-05-03] MEDS ORDERED: DIPHENHYDRAMINE HCL 50 MG/ML VIAL IV ONE ×3 (15:41→22:47)
--- NOTE | 2020-05-03 15:43 | ER Document Report ---
ED Medical Screen (RME) - General Chief Complaint: Sickle Cell Crisis Stated Complaint: CHEST PAIN Time Seen by Provider: 05/03/20 15:37 Primary Care Provider: MARIANNE NGUYEN NP-C [Primary Care Provider] - Follow up as needed Notes: Patient is a 24-year-old male who presents the emergency department with a chief complaint of chest wall pain and knee pain. Patient is a sickle cell patient. Patient states this feels like a normal sickle cell crisis. Patient normally takes 10 mg of oxycodone at home. Last dose was at 1200. Exam: S1, S2. Lung sounds clear to auscultation. I have greeted and performed a rapid initial assessment of this patient. A comprehensive ED assessment and evaluation of the patient, analysis of test results and completion of medical decision making process will be conducted by an additional ED providers. TRAVEL OUTSIDE OF THE [place] IN LAST 30 DAYS: No - Related Data Allergies/Adverse Reactions: Coconut * [Coconut] Allergy (Mild, Verified 03/19/20 19:14) apixaban [From Eliquis] Allergy (Verified 03/19/20 19:14) rivaroxaban [From Xarelto] Allergy (Verified 03/19/20 19:14) transpore tape Allergy (Mild, Uncoded 03/19/20 19:14) Hives Home Medications: acyclovir, cymbalta, carvedilol, amlodipine, hydroxyurea, folic acid, oxycodone Past Medical History - Social History Chew tobacco use (# tins/day): No Frequency of alcohol use: Rare Drug Abuse: None Family history: None Pulmonary Medical History: Reports: Hx Asthma, Hx Pneumonia Renal/ Medical History: Denies: Hx Peritoneal Dialysis Musculoskeltal Medical History: Reports Hx Musculoskeletal Deformity - Pain to multiple areas mostly right knee due to sickle cell anemia Past Surgical History: Reports: Hx Abdominal Surgery - Gallstones removal, Hx Cholecystectomy, Hx Orthopedic Surgery - Fluid drained from right foot, Hx Vascular Surgery - Port placementx2 (failed) - Immunizations Immunizations up to date: Yes Hx Diphtheria, Pertussis, Tetanus Vaccination: Yes Physical Exam - Vital signs Vitals: Temp Pulse Resp BP Pulse Ox 98.4 F 96 16 132/97 H 95 05/03/20 14:04 05/03/20 14:04 05/03/20 14:04 05/03/20 14:04 05/03/20 14:04 Course - Vital Signs Vital signs: Temp Pulse Resp BP Pulse Ox 98.4 F 96 16 132/97 H 95 05/03/20 15:37 05/03/20 14:04 05/03/20 14:04 05/03/20 14:04 05/03/20 14:04 Doctor's Discharge - Discharge Referrals: MARIANNE NGUYEN NP-C [Primary Care Provider] - Follow up as needed
--- NOTE | 2020-05-03 16:10 | RADIOLOGY REPORT (SQ) ---
EXAM DESCRIPTION: CHEST 2 VIEWS IMAGES COMPLETED DATE/TIME: 05/03/2020 4:01 pm REASON FOR STUDY: chest pain; Sickle cell crisis COMPARISON: 03/19/2020. EXAM PARAMETERS: NUMBER OF VIEWS: two views TECHNIQUE: Digital Frontal and Lateral radiographic views of the chest acquired. RADIATION DOSE: NA LIMITATIONS: none FINDINGS: LUNGS AND PLEURA: No opacities, masses or pneumothorax. No pleural effusion. MEDIASTINUM AND HILAR STRUCTURES: No masses or contour abnormalities. HEART AND VASCULAR STRUCTURES: Heart normal size. No evidence for failure. BONES: No acute findings. Diffuse chronic bony sclerosis consistent with sickle cell disease. HARDWARE: None in the chest. OTHER: No other significant finding. IMPRESSION: NO ACUTE RADIOGRAPHIC FINDING IN THE CHEST. TECHNICAL DOCUMENTATION: JOB ID: [id number] 2010 [employer]- All Rights Reserved Reading location - IP/workstation name: [email or web address]
--- NOTE | 2020-05-03 18:24 | EKG REPORT ---
SEVERITY:- NORMAL ECG - SINUS RHYTHM : Confirmed by: Howard Min MD 03-May-2020 18:23:00
--- NOTE | 2020-05-03 19:35 | ER Document Report ---
ED General Pain - General Chief Complaint: Sickle Cell Crisis Stated Complaint: CHEST PAIN Time Seen by Provider: 05/03/20 15:37 Primary Care Provider: MARIANNE NGUYEN NP-C [Primary Care Provider] - Follow up as needed Notes: Patient is a 24-year-old male who presents the emergency department with a chief complaint of chest wall pain and knee pain. Patient is a sickle cell patient. Patient states this feels like a normal sickle cell crisis. Patient normally takes 10 mg of oxycodone at home. Last dose was at 1200. 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 TRAVEL OUTSIDE OF THE [place] IN LAST 30 DAYS: No - Related Data Allergies/Adverse Reactions: Coconut * [Coconut] Allergy (Mild, Verified 03/19/20 19:14) apixaban [From Eliquis] Allergy (Verified 03/19/20 19:14) rivaroxaban [From Xarelto] Allergy (Verified 03/19/20 19:14) transpore tape Allergy (Mild, Uncoded 03/19/20 19:14) Hives Home Medications: acyclovir, cymbalta, carvedilol, amlodipine, hydroxyurea, folic acid, oxycodone Past Medical History - Social History Smoking Status: Never Smoker Chew tobacco use (# tins/day): No Frequency of alcohol use: Rare Drug Abuse: None Family History: Reviewed & Not Pertinent, Arthritis, DM, Hypertension, Other - Sickle cell trait both parents and asthma Pulmonary Medical History: Reports: Hx Asthma, Hx Pneumonia Renal/ Medical History: Denies: Hx Peritoneal Dialysis Musculoskeletal Medical History: Reports Hx Musculoskeletal Deformity - Pain to multiple areas mostly right knee due to sickle cell anemia Past Surgical History: Reports: Hx Abdominal Surgery - Gallstones removal, Hx Cholecystectomy, Hx Orthopedic Surgery - Fluid drained from right foot, Hx Vascular Surgery - Port placementx2 (failed) - Immunizations Immunizations up to date: Yes Hx Diphtheria, Pertussis, Tetanus Vaccination: Yes Hx Pneumococcal Vaccination: 01/15/13 Review of Systems - Review of Systems Notes: REVIEW OF SYSTEMS: CONSTITUTIONAL : Denies recent illness. Denies recent unintentional weight loss. Denies fever, chills, or sweats. EENT: Denies eye, ear, throat, or mouth pain, discharge, or symptoms. Denies nasal or sinus congestion. CARDIOVASCULAR: See HPI. RESPIRATORY: Denies shortness of breath, cough, congestion, difficulty breathing, or wheezing. GASTROINTESTINAL: Denies nausea, vomiting, and diarrhea. Denies abdominal pain. Denies constipation. GENITOURINARY: Denies difficulty urinating, burning, blood in urine, urgency or frequency. MUSCULOSKELETAL: Denies neck and back pain. See HPI. SKIN: Denies rash, itchiness, or lesions HEMATOLOGIC : Denies easy bruising or bleeding. LYMPHATIC: Denies swollen, painful, enlarged glands. NEUROLOGICAL: Denies no numbness or tingling denies weakness. Denies headache. Denies altered mental status. Denies alteration in speech. PSYCHIATRIC: Denies stress, anxiety, alteration in sleep patterns, or depression. All other systems reviewed and negative. Physical Exam - Vital signs Vitals: Temp Pulse Resp BP Pulse Ox 98.4 F 96 16 132/97 H 95 05/03/20 14:04 05/03/20 14:04 05/03/20 14:04 05/03/20 14:04 05/03/20 14:04 - Notes Notes: PHYSICAL EXAMINATION: GENERAL: Appears well, healthy, well-nourished, no acute distress. HEAD: Normocephalic, atraumatic. EYES: PERRL, conjunctiva normal, all extraocular movements intact, sclera nonicteric ENT: Moist mucous membranes. NECK: Supple, no noticeable swelling, redness, rash. Normal range of motion. LUNGS: Equal breath sounds bilaterally and clear to auscultation. No wheezes rales or rhonchi. CARDIOVASCULAR: S1-S2, regular rate, regular rhythm. Radial pulses 2+, normal. ABDOMEN: Normoactive bowel sounds. Soft, nontender, no guarding, no rebound tenderness, and no masses palpated. EXTREMITIES: Normal strength and range of motion, no pitting or edema. No cyanosis. NEUROLOGICAL: Moves all extremities upon command. Strength 5/5 in all extremities. PSYCH: Normal mood, normal affect. SKIN: Warm, dry. No rash, lesions, ulcerations noted. Normal skin turgor. Course - Re-evaluation Re-evalutation: 05/03/20 20:51 Nursing staff was having a hard time placing an IV. I went to bedside and placed an IV in the patient's left foot. Patient will receive his medications and IV fluids. Chest x-ray is unremarkable. 05/03/20 21:41 Patient states that he is feeling a little bit better, but still has pain. We will give him another dose of Dilaudid and will reevaluate. Hematology shows a hemoglobin of 18.6 and hematocrit of 53.9. The patient and his visitor states that this is actually normal for him due to his bone marrow transplant medications. Chemistries are unremarkable. Troponin and BNP are also unremarkable. Reticulocyte count and reticulocyte number are within normal limits. 05/03/20 22:40 Patient was reevaluated and he states that he is pain-free, but states that he is slightly itchy. We will give him another dose of Benadryl. Patient is now receiving his second liter of IV fluids. Patient is nontoxic in appearance. Acute chest syndrome has been ruled out. Follow-up precautions were given. Verbal discharge instructions were given to the patient. They verbalized understanding. They are stable for discharge. - Vital Signs Vital signs: Temp Pulse Resp BP Pulse Ox 98.2 F 96 18 121/73 98 05/03/20 23:32 05/03/20 14:04 05/03/20 23:32 05/03/20 23:32 05/03/20 23:32 - Laboratory Result Diagrams: 05/03/20 21:00 05/03/20 21:00 Laboratory results interpreted by me: 05/03/20 05/03/20 21:00 21:00 RBC 5.62 H Hgb 18.6 H Hct 53.9 H RDW 14.7 H Chloride 108 H BUN 23 H - EKG Interpretation by Me Additional EKG results interpreted by me: 05/03/20 19:53 Sinus rhythm. Rate 93. OR 176; QRS 86; QT 340; QTc 423. No ST elevations or depressions noted. Discharge - Discharge Clinical Impression: Sickle cell crisis Chest pain Qualifiers: Chest pain type: unspecified Qualified Code(s): R07.9 - Chest pain, unspecified Leg pain Qualifiers: Laterality: unspecified laterality Qualified Code(s): M79.606 - Pain in leg, unspecified Disposition: HOME, SELF-CARE Additional Instructions: You were seen today for sickle cell pain crisis. Please follow-up with your pattern checker. Returning to the ED if you have worsening pain, fever greater than 100.4, shortness of breath, persistent vomiting, or any other symptoms that are concerning to you. Referrals: MARIANNE NGUYEN NP-C [Primary Care Provider] - Follow up as needed
[2020-05-03 21:20] LABS: MEAN CORPUSCULAR VOLUME 96 fl (80-97); TOTAL CELLS COUNTED % (AUTO) 100 %
[2020-05-03 21:25] LABS: ABSOLUTE RETICS # 0.062 10^6/uL (0.028-0.122)
[2020-05-03 21:34] LABS: ALKALINE PHOSPHATASE 112 U/L (38-126); ANION GAP 9 (5-19); ASPARTATE AMINO TRANSFERASE 41 U/L (17-59); BILIRUBIN,DIRECT 0.3 mg/dL (0.0-0.4); BLOOD UREA NITROGEN 23 mg/dL (7-20); CALCIUM 9.6 mg/dL (8.4-10.2); CARBON DIOXIDE 23 mmol/L (22-30); CHLORIDE 108 mmol/L (98-107); CREATINE KINASE 73 U/L (55-170); GLUCOSE 99 mg/dL (75-110); POTASSIUM 4.4 mmol/L (3.6-5.0); TOTAL PROTEIN 7.9 g/dL (6.3-8.2)
[2020-05-03 21:44] LABS: ABSOLUTE BASOPHILS # (AUTO) 0.1 10^3/uL (0.0-0.2); ABSOLUTE EOSINOPHILS # (AUTO) 0.2 10^3/uL (0.0-0.6); ABSOLUTE LYMPHOCYTES (AUTO) 3.3 10^3/uL (0.5-4.7); ABSOLUTE MONOCYTES (AUTO) 1.1 10^3/uL (0.1-1.4); ABSOLUTE NEUT (AUTO) 4.3 10^3/uL (1.7-8.2); BASOPHILS % (AUTO) 0.7 % (0-2); EOSINOPHILS % (AUTO) 2.2 % (0-6); HEMATOCRIT 53.9 % (37.9-51.0); HEMOGLOBIN 18.6 g/dL (13.5-17.0); LYMPHOCYTES % (AUTO) 36.6 % (13-45); MEAN CORPUSCULAR HEMOGLOBIN 33.1 pg (27.0-33.4); MEAN CORPUSCULAR HGB CONC 34.5 g/dL (32.0-36.0); MONOCYTES % (AUTO) 12.3 % (3-13); PLATELET COUNT 273 10^3/uL (150-450); RED BLOOD COUNT 5.62 10^6/uL (4.35-5.55); RED CELL DISTRIBUTION WIDTH 14.7 % (11.5-14.0); SEGMENTED NEUTROPHILS % (AUTO) 48.2 % (42-78); WHITE BLOOD COUNT 8.9 10^3/uL (4.0-10.5)
[2020-05-03 23:43] VITALS: BP 121/73
== END 2020-05-03 23:43 | disposition home or self-care (01) ==
LOC: ER 13:49
DX: R07.89 Other chest pain (principal); M25.569 Pain in unspecified knee; M79.606 Pain in leg, unspecified; L29.9 Pruritus, unspecified; J45.909 Unspecified asthma, uncomplicated; Z79.899 Other long term (current) drug therapy; Z79.891 Long term (current) use of opiate analgesic; Z98.890 Other specified postprocedural states; Z91.018 Allergy to other foods; Z88.8 Allergy status to other drugs, medicaments and biological substances
CPT/HCPCS: 93005; 96376; 99285; 96361; 96374; 96375; 36415; 82550; 83735; 85025; 85045; 80053; 84484; 83880; 71046; 93010; J1200; J1170; J2405; J7030

== ENCOUNTER 2020-08-13 16:04 | Emergency (ER) | payer MEDICAID ==
--- NOTE | 2020-08-13 17:00 | ER Document Report ---
ED Medical Screen (RME) - General Chief Complaint: Sickle Cell Crisis Stated Complaint: RIGHT ARM PAIN Time Seen by Provider: 08/13/20 16:49 Primary Care Provider: MARIANNE NGUYEN NP-C [Primary Care Provider] - Follow up as needed TRAVEL OUTSIDE OF THE [place] IN LAST 30 DAYS: No - HPI Notes: 08/13/20 16:57 25-year-old male with history of sickle cell disease presents to ED for eval uation of visual disturbances as well as joint pain. Patient reports that he has been taking his home medications without improvement. Reports he was leaning forward earlier today and started having static symptoms to his vision as well as blurred vision. Notes that this is atypical for his presentations. Denies chest pain or shortness of breath. Reports no episode of syncope. Denies any recent cough or cold symptoms. That his joint pain is similar to what he has experienced in the past. Denies other complaints. . - Related Data Allergies/Adverse Reactions: Coconut * [Coconut] Allergy (Mild, Verified 03/19/20 19:14) apixaban [From Eliquis] Allergy (Verified 03/19/20 19:14) rivaroxaban [From Xarelto] Allergy (Verified 03/19/20 19:14) transpore tape Allergy (Mild, Uncoded 03/19/20 19:14) Hives Past Medical History - Social History Chew tobacco use (# tins/day): No Frequency of alcohol use: None Drug Abuse: None Family history: None Pulmonary Medical History: Reports: Hx Asthma, Hx Pneumonia Renal/ Medical History: Denies: Hx Peritoneal Dialysis Musculoskeltal Medical History: Reports Hx Musculoskeletal Deformity - Pain to multiple areas mostly right knee due to sickle cell anemia Past Surgical History: Reports: Hx Abdominal Surgery - Gallstones removal, Hx Cholecystectomy, Hx Orthopedic Surgery - Fluid drained from right foot, Hx Vascular Surgery - Port placementx2 (failed) - Immunizations Immunizations up to date: Yes Hx Diphtheria, Pertussis, Tetanus Vaccination: Yes Physical Exam - Vital signs Vitals: Temp Pulse Resp BP Pulse Ox 98.1 F 97 16 131/93 H 95 08/13/20 16:46 08/13/20 16:46 08/13/20 16:46 08/13/20 16:46 08/13/20 16:46 General: No acute distress. Alert and oriented x3. Sitting comfortably in a stretcher. Skin: No jaundice, pallor, petechiae, or rashes. Warm and dry. HEENT: Normocephalic, atraumatic. Pupils are equal round reactive to light and accommodation. Extraocular movements are intact. Fatigable bilateral horizontal nystagmus TMs without erythema or bulging. Canals are clear. Nares patent without any discharge. Teeth in good condition. Pharynx without erythema, edema, or exudates. Mucous membranes moist. No tonsillar enlargement. Uvula is midline. Airway is patent. Neck: Supple with no lymphadenopathy. Full range of motion. Heart: Regular rate and rhythm. S1,S2. No murmurs, rubs, or gallops. Lungs: Clear to auscultation bilaterally. No wheezes, rhonchi, rales. Equal chest expansion. No retractions. Abdomen: Soft, nontender to palpation, nondistended. Positive bowel sounds in all 4 quadrants. No masses. No CVA tenderness bilaterally. Back: No midline spinal TTP. No paraspinous muscular TTP. Neuro: GCS 15. Moving all extremities without discomfort. Psych: Mood and affect appropriate. Course - Vital Signs Vital signs: Temp Pulse Resp BP Pulse Ox 98.1 F 97 16 131/93 H 95 08/13/20 16:46 08/13/20 16:46 08/13/20 16:46 08/13/20 16:46 08/13/20 16:46 Doctor's Discharge - Discharge Referrals: MARIANNE NGUYEN NP-C [Primary Care Provider] - Follow up as needed
--- NOTE | 2020-08-13 17:24 | RADIOLOGY REPORT (SQ) ---
EXAM DESCRIPTION: CT HEAD WITHOUT IMAGES COMPLETED DATE/TIME: 08/13/2020 5:17 pm REASON FOR STUDY: dizziness COMPARISON: CT head 08/27/2019 TECHNIQUE: Axial images acquired through the brain without intravenous contrast. Images reviewed wi th bone, brain and subdural windows. Additional sagittal and coronal reconstructions were generated. Images stored on PACS. All CT scanners at this facility use dose modulation, iterative reconstruction, and/or weight based d osing when appropriate to reduce radiation dose to as low as reasonably achievable (ALARA). [facility]: Dose Right [facility]: CareDose [facility]: Dose Right [facility]: Teradose 4D [facility]: Smart [employer] RADIATION DOSE: CT Rad equipment meets quality standard of care and radiation dose reduction techniq ues were employed. CTDIvol: 53.2 mGy. DLP: 1017 mGy-cm. mGy. LIMITATIONS: None. FINDINGS: VENTRICLES: Normal size and contour. CEREBRUM: No masses. No hemorrhage. No midline shift. No evidence for acute infarction. Normal gra y/white matter differentiation. No areas of low density in the white matter. CEREBELLUM: No masses. No hemorrhage. No alteration of density. No evidence for acute infarction. EXTRAAXIAL SPACES: No fluid collections. No masses. ORBITS AND GLOBE: No intra- or extraconal masses. Normal contour of globe without masses. CALVARIUM: No fracture. PARANASAL SINUSES: No fluid or mucosal thickening. SOFT TISSUES: No mass or hematoma. OTHER: No other significant finding. IMPRESSION: NO ACUTE INTRACRANIAL IMAGING FINDINGS. EVIDENCE OF ACUTE STROKE: NO. COMMENT: Quality ID # [id number]: Final reports with documentation of one or more dose reduction techniques (e.g., Automated exposure control, adjustment of the mA and/or kV according to patient size, use of iterative reconstruction technique) TECHNICAL DOCUMENTATION: JOB ID: [id number] 2010 [employer]- All Rights Reserved Reading location - IP/workstation name: [email or web address]
[2020-08-13 17:46] LABS: ABSOLUTE BASOPHILS # (AUTO) 0.1 10^3/uL (0.0-0.2); ABSOLUTE EOSINOPHILS # (AUTO) 0.3 10^3/uL (0.0-0.6); ABSOLUTE LYMPHOCYTES (AUTO) 2.6 10^3/uL (0.5-4.7); ABSOLUTE MONOCYTES (AUTO) 1.1 10^3/uL (0.1-1.4); ABSOLUTE NEUT (AUTO) 4.6 10^3/uL (1.7-8.2); ABSOLUTE RETICS # 0.063 10^6/uL (0.028-0.122); BASOPHILS % (AUTO) 1.2 % (0-2); EOSINOPHILS % (AUTO) 3.3 % (0-6); HEMOGLOBIN 17.5 g/dL (13.5-17.0); LYMPHOCYTES % (AUTO) 29.9 % (13-45); MEAN CORPUSCULAR HGB CONC 34.2 g/dL (32.0-36.0); MEAN CORPUSCULAR VOLUME 99 fl (80-97); MONOCYTES % (AUTO) 12.7 % (3-13); RED BLOOD COUNT 5.13 10^6/uL (4.35-5.55); RED CELL DISTRIBUTION WIDTH 15.5 % (11.5-14.0); RETICULOCYTE COUNT (AUTO) 1.23 % (0.66-2.85); SEGMENTED NEUTROPHILS % (AUTO) 52.9 % (42-78); TOTAL CELLS COUNTED % (AUTO) 100 %; WHITE BLOOD COUNT 8.7 10^3/uL (4.0-10.5)
[2020-08-13 18:17] LABS: PLATELET COUNT 246 10^3/uL (150-450)
[2020-08-13 19:31] LABS: ALBUMIN 4.8 g/dL (3.5-5.0); ALKALINE PHOSPHATASE 103 U/L (38-126); ANION GAP 12 (5-19); ASPARTATE AMINO TRANSFERASE 38 U/L (17-59); BILIRUBIN,DIRECT 0.3 mg/dL (0.0-0.4); BILIRUBIN,TOTAL 0.7 mg/dL (0.2-1.3); BLOOD UREA NITROGEN 29 mg/dL (7-20); CALCIUM 10.1 mg/dL (8.4-10.2); CARBON DIOXIDE 22 mmol/L (22-30); CHLORIDE 103 mmol/L (98-107); GLUCOSE 92 mg/dL (75-110); POTASSIUM 4.2 mmol/L (3.6-5.0); TOTAL PROTEIN 7.9 g/dL (6.3-8.2)
[2020-08-13] MEDS ORDERED: HYDROMORPHONE HCL INJ/PF 2 MG/ML AMPULE IV ONE (22:09)
[2020-08-13] MEDS ORDERED: DIPHENHYDRAMINE HCL 50 MG/ML VIAL IV ONE (22:10)
[2020-08-13] MEDS ORDERED: NORMAL SALINE 1000 ML 1,000 ML IV ONE (22:10)
[2020-08-13] MEDS ORDERED: ONDANSETRON HCL INJ/PF 4 MG/2 ML SDV IV ONE (22:10)
--- NOTE | 2020-08-13 22:12 | ER Document Report ---
ED General - General Chief Complaint: Sickle Cell Crisis Stated Complaint: RIGHT ARM PAIN Time Seen by Provider: 08/13/20 16:49 Primary Care Provider: MARIANNE NGUYEN NP-C [NO LOCAL MD] - Follow up as needed Notes: Patient is a 25-year-old male with a history of sickle cell disease who comes emergency department for chief complaint of joint pain. Patient states that he has taken his home medication including oxycodone but his pain continued to worsen so he came in for evaluation and treatment. He states that earlier today when he bent over he briefly had blurred vision, he states that he did this a couple of times and it happened. However he denies current blurred vision, he reports a vague headache, he denies focal numbness or weakness. He denies fever, head injury, dizziness, passing out, shortness of breath. He states his joint pain and pain flareup is similar to his sickle cell crisis in the past alt mariusz he states that since he had a bone marrow transplant with [facility] this happens much less frequently now. He is on prednisone following with the transplant team. TRAVEL OUTSIDE OF THE [place] IN LAST 30 DAYS: No - Related Data Allergies/Adverse Reactions: Coconut * [Coconut] Allergy (Mild, Verified 03/19/20 19:14) apixaban [From Eliquis] Allergy (Verified 03/19/20 19:14) rivaroxaban [From Xarelto] Allergy (Verified 03/19/20 19:14) transpore tape Allergy (Mild, Uncoded 03/19/20 19:14) Hives Past Medical History - General Information source: Patient - Social History Smoking Status: Never Smoker Chew tobacco use (# tins/day): No Frequency of alcohol use: None Drug Abuse: None Lives with: Family Family History: Reviewed & Not Pertinent, Arthritis, DM, Hypertension, Other - Sickle cell trait both parents and asthma Pulmonary Medical History: Reports: Hx Asthma, Hx Pneumonia Renal/ Medical History: Denies: Hx Peritoneal Dialysis Musculoskeletal Medical History: Reports Hx Musculoskeletal Deformity - Pain to multiple areas mostly right knee due to sickle cell anemia Past Surgical History: Reports: Hx Abdominal Surgery - Gallstones removal, Hx Cholecystectomy, Hx Orthopedic Surgery - Fluid drained from right foot, Hx Vascular Surgery - Port placementx2 (failed) - Immunizations Immunizations up to date: Yes Hx Diphtheria, Pertussis, Tetanus Vaccination: Yes Hx Pneumococcal Vaccination: 01/15/13 Review of Systems - Review of Systems Constitutional: See HPI EENT: No symptoms reported Cardiovascular: See HPI Respiratory: No symptoms reported Gastrointestinal: No symptoms reported Genitourinary: No symptoms reported Male Genitourinary: No symptoms reported Musculoskeletal: See HPI Skin: No symptoms reported Hematologic/Lymphatic: No symptoms reported Neurological/Psychological: See HPI Physical Exam - Vital signs Vitals: Temp Pulse Resp BP Pulse Ox 98.1 F 97 16 131/93 H 95 08/13/20 16:46 08/13/20 16:46 08/13/20 16:46 08/13/20 16:46 08/13/20 16:46 - Notes Notes: GENERAL: Alert, interacts well. No acute distress. HEAD: Normocephalic, atraumatic. EYES: Pupils equal, round, and reactive to light. Extraocular movements intact. ENT: Oral mucosa moist, tongue midline. Oropharynx unremarkable. Airway patent. NECK: Full range of motion. Supple. Trachea midline. No lymphadenopathy. LUNGS: Clear to auscultation bilaterally, no wheezes, rales, or rhonchi. No respiratory distress. Non-tender chest wall. HEART: Regular rate and rhythm. No murmur ABDOMEN: Soft, non-tender. Non-distended. EXTREMITIES: Moves all 4 extremities spontaneously. No edema, normal radial and dorsalis pedis pulses bilaterally. No cyanosis. BACK: no cervical, thoracic, lumbar midline tenderness. No saddle anesthesia, normal distal neurovascular exam. Moves all extremities in full range of motion. NEUROLOGICAL: Alert and oriented x3. Normal speech. Cranial nerves II through XII grossly intact. Strength 5/5 in all extremities. PSYCH: Normal affect, normal mood. SKIN: Warm, dry, normal turgor. No rashes or lesions noted. Course - Re-evaluation Re-evalutation: Patient is well-appearing, does not appear to be in severe distress, vital signs unremarkable. CBC, reticulocyte count, chemistry unremarkable. Patient with no shortness of breath, chest pain, or fever. Patient did state he had blurred vision when he bent over but not since, EKG unremarkable, neurological exam unremarkable, no headache. Low suspicion of emergent intracranial or intrathoracic etiology. I reevaluated patient after IV fluids and medications for pain, patient standing up in the room, states he feels much better, states he is ready to go home. He states he has a close follow-up with his appointment for imaging of the hips because of possible avascular necrosis secondary to sickle cell. He states he wants to go home before that. I discussed work-up, expectations, return precautions. Patient states appreciation and agreement. Stable and well- appearing at time of discharge. - Vital Signs Vital signs: Temp Pulse Resp BP Pulse Ox 98.6 F 105 H 16 118/98 H 95 08/14/20 03:05 08/14/20 03:05 08/14/20 03:05 08/14/20 03:05 08/14/20 03:05 - Laboratory Results Result Diagrams: 08/13/20 17:11 08/13/20 18:57 Laboratory Results Interpreted: 08/13/20 08/13/20 17:11 18:57 Hgb 17.5 H MCV 99 H MCH 34.0 H RDW 15.5 H BUN 29 H Critical Laboratory Results Reviewed: No Critical Results - Radiology Results Critical Radiology Results Reviewed: No Critical Results - EKG Interpretation by Me Additional EKG results interpreted by me: EKG shows sinus rhythm at a rate of 88, QTc 431, normal axis, no T wave inversions or ST segment changes in consecutive leads Discharge - Discharge Clinical Impression: Body aches, Blurred vision Joint pain Qualifiers: Joint pain location: elbow Laterality: right Qualified Code(s): M25.521 - Pain in right elbow Condition: Stable Disposition: HOME, SELF-CARE Additional Instructions: Your evaluation does not show any concerning findings. Follow-up with your primary care for additional management and evaluation. Return if you worsen including severe worsening pain, fever, difficulty breathing, severe headache, passing out, or any other concerning symptoms. Referrals: MARIANNE NGUYEN NP-C [NO LOCAL MD] - Follow up as needed
[2020-08-14] MEDS ORDERED: HYDROMORPHONE HCL INJ/PF 2 MG/ML AMPULE IV ONE ×2 (00:24→02:14)
[2020-08-14] MEDS ORDERED: DIPHENHYDRAMINE HCL 50 MG/ML VIAL IV ONE (02:14)
[2020-08-14 03:06] VITALS: BP 118/98
--- NOTE | 2020-08-15 00:13 | EKG REPORT ---
SEVERITY:- NORMAL ECG - SINUS RHYTHM : Confirmed by: Xenia Delgado 15-Aug-2020 00:13:21
== END 2020-08-14 02:54 | disposition home or self-care (01) ==
LOC: ER 16:04
DX: M25.521 Pain in right elbow (principal); H53.8 Other visual disturbances; R51.9 Headache, unspecified; D57.1 Sickle-cell disease without crisis; J45.909 Unspecified asthma, uncomplicated; Z79.891 Long term (current) use of opiate analgesic; Z94.81 Bone marrow transplant status; Z91.018 Allergy to other foods; Z88.8 Allergy status to other drugs, medicaments and biological substances
CPT/HCPCS: 96376; 99285; 96361; 96374; 96375; 36415; 85025; 85045; 80053; 70450; 93005; 93010; J1200 ×2; J1170 ×2; J2405; J7030